=== PATIENT | female | born 1960 | race Caucasian/White ===

== ENCOUNTER 2016-09-19 17:51 | Inpatient (IN) | payer MEDICARE, OTHER ==
[2016-09-19] MEDS ORDERED: NALOXONE 0.4 MG/ML 1 ML VIAL IV STA (18:28)
[2016-09-19] MEDS ORDERED: ACTIVATED CHARCOAL-SORBITOL 50 GM/240 ML BOTTLE PO STA (18:29)
--- NOTE | 2016-09-19 18:36 | ED ---
General Adult HPI - General Chief complaint: Overdose Stated complaint: overdose Time Seen by Provider: 09/19/16 18:15 Source: patient, EMS, RN notes reviewed Mode of arrival: EMS Limitations: no limitations - History of Present Illness Initial comments: This is a 56-year-old female comes in the emergency room stating she overdosed on Flexeril and Ativan. She told the ER nurse asked to call bottle of Ativan she told me showing took one Ativan and a bunch of Flexeril but doesn't how much. The patient is so lethargic I cannot at this time trust her history other than the fact she did overdose. Patient states she couldn't handle light but would not give me any specifics as to why she tried to overdose. Patient states she has done this in the past. Patient denies any other drug use patient denies any alcohol use. Patient denies any chest pain difficulty breathing shortness of breath - Related Data Home Medications Medication Instructions Recorded Confirmed Gabapentin [Neurontin] 600 mg PO TID 07/09/15 09/19/16 Carvedilol 25 mg PO BID 10/10/15 09/19/16 Pravastatin Sodium 80 mg PO HS 10/10/15 09/19/16 rOPINIRole HCL [Requip] 2 mg PO TID 10/10/15 09/19/16 Multivitamins, Thera [Multivitamin] 1 tab PO DAILY 10/11/15 09/19/16 Levothyroxine Sodium [Synthroid] 137 mcg PO DAILY 11/05/15 09/19/16 Furosemide [Lasix] 20 mg PO BID 03/08/16 09/19/16 DULoxetine HCL [Cymbalta] 60 mg PO BID 05/05/16 09/19/16 Ferrous Sulfate [Iron (65 MG 325 mg PO DAILY 05/05/16 09/19/16 Elemental)] Lurasidone HCl [Latuda] 60 mg PO HS 05/05/16 09/19/16 rOPINIRole HCL [Requip] 3 mg PO HS 05/05/16 09/19/16 LORazepam [Ativan] 1 mg PO BID PRN 08/15/16 09/19/16 Nystatin 100,000 Unit/gm Powd 1 applic TOPICAL TID PRN 08/15/16 09/19/16 [Mycostatin Powder] QUEtiapine FUMARATE [SEROquel] 100 mg PO HS 08/15/16 09/19/16 Topiramate [Topamax] 50 mg PO DAILY 09/19/16 09/19/16 Allergies Allergy/AdvReac Type Severity Reaction Status Date / Time haloperidol [From Haldol] Allergy Swelling Verified 09/19/16 20:35 haloperidol lactate Allergy Swelling Verified 09/19/16 20:35 [From Haldol] iodine Allergy Swelling Verified 09/19/16 20:35 Penicillins Allergy Swelling Verified 09/19/16 20:35 prochlorperazine Allergy Rash/Hives Verified 09/19/16 20:35 [From Compazine] prochlorperazine edisylate Allergy Rash/Hives Verified 09/19/16 20:35 [From Compazine] prochlorperazine maleate Allergy Rash/Hives Verified 09/19/16 20:35 [From Compazine] Sulfa (Sulfonamide Allergy Rash/Hives Verified 09/19/16 20:35 Antibiotics) Tetanus Vaccines and Toxoid Allergy Rash/Hives Verified 09/19/16 20:35 [Tetanus Vaccines & Toxoid] trifluoperazine HCl Allergy Unknown Verified 09/19/16 20:35 [From Stelazine] Review of Systems ROS Statement: Those systems with pertinent positive or pertinent negative responses have been documented in the HPI. ROS Other: All systems not noted in ROS Statement are negative. Past Medical History Past Medical History: Asthma, Coronary Artery Disease (CAD), Diabetes Mellitus, Hyperlipidemia, Hypertension, Musculoskeletal Disorder, Osteoarthritis (OA), Thyroid Disorder Additional Past Medical History / Comment(s): Morbid obesity, unable to bear due to significant and profound lower extremity weakness and patient has been placed in medical [place] for that reason. CAT scan of the lumbar spine was done that showed some degenerative arthritic changes. Urinary incontinence; Yeast infection under abd. apron. History of Any Multi-Drug Resistant Organisms: None Reported Past Surgical History: Bariatric Surgery, Hernia Repair, Orthopedic Surgery Additional Past Surgical History / Comment(s): Total Right knee replacement, 3 hernia repairs. hip repair Past Anesthesia/Blood Transfusion Reactions: No Reported Reaction Past Psychological History: Anxiety, Bipolar, Depression Smoking Status: Never smoker Past Alcohol Use History: None Reported Past Drug Use History: None Reported - Past Family History Mother Family Medical History: Cancer Additional Family Medical History / Comment(s): lung cancer Father Additional Family Medical History / Comment(s): "my dad from a blood clot" patient is unsure where the blood clot was. Brother(s) Family Medical History: Diabetes Mellitus Sister(s) Additional Family Medical History / Comment(s): "her heart races too fast" General Exam - General Exam Comments Initial Comments: Patient's EKG shows a normal sinus rhythm at 70 bpm WA interval is 154 QRS is 94 QT interval 398 QTC is 444 per patient's EKG shows no ST segment elevation or depression or T-wave abdomen is noted. Limitations: no limitations Course Vital Signs 09/19/16 09/19/16 09/19/16 17:58 18:00 19:58 Temperature 97.3 F L Pulse Rate 78 80 84 Respiratory 20 16 Rate Blood Pressure 161/70 144/85 O2 Sat by Pulse 95 95 95 Oximetry 09/19/16 21:22 Temperature Pulse Rate 69 Respiratory 16 Rate Blood Pressure 136/79 O2 Sat by Pulse 96 Oximetry Medical Decision Making - Medical Decision Making Patient is arousable with slight physical stimulation. - Lab Data Result diagrams: 09/19/16 18:35 09/19/16 19:12 Lab Results 09/19/16 09/19/16 09/19/16 Range/Units 18:35 19:12 20:55 WBC 6.0 (3.8-10.6) k/uL RBC 4.11 (3.80-5.40) m/uL Hgb 11.7 (11.4-16.0) gm/dL Hct 36.3 (34.0-46.0) % MCV 88.1 (80.0-100.0) fL MCH 28.5 (25.0-35.0) pg MCHC 32.3 (31.0-37.0) g/dL RDW 14.4 (11.5-15.5) % Plt Count 223 (150-450) k/uL Neutrophils % 65 % Lymphocytes % 22 % Monocytes % 7 % Eosinophils % 2 % Basophils % 0 % Neutrophils # 3.9 (1.3-7.7) k/uL Lymphocytes # 1.3 (1.0-4.8) k/uL Monocytes # 0.4 (0-1.0) k/uL Eosinophils # 0.1 (0-0.7) k/uL Basophils # 0.0 (0-0.2) k/uL Sodium 139 (137-145) mmol/L Potassium 4.3 (3.5-5.1) mmol/L Chloride 105 (98-107) mmol/L Carbon Dioxide 20 L (22-30) mmol/L Anion Gap 14 mmol/L BUN 21 H (7-17) mg/dL Creatinine 0.76 (0.52-1.04) mg/dL Est GFR (MDRD) Af Amer >60 (>60 ml/min/1.73 sqM) Est GFR (MDRD) Non-Af >60 (>60 ml/min/1.73 sqM) Glucose 87 (74-99) mg/dL Calcium 9.0 (8.4-10.2) mg/dL Total Bilirubin 0.6 (0.2-1.3) mg/dL AST 32 (14-36) U/L ALT 34 (9-52) U/L Alkaline Phosphatase 97 (38-126) U/L Total Protein 7.1 (6.3-8.2) g/dL Albumin 4.2 (3.5-5.0) g/dL Urine HCG, Qual (Not Detectd) Salicylates <1.0 mg/dL Urine Opiates Screen Not Detected (NotDetected) Ur Oxycodone Screen Not Detected (NotDetected) Urine Methadone Screen Not Detected (NotDetected) Ur Propoxyphene Screen Not Detected (NotDetected) Acetaminophen <10.0 ug/mL Ur Barbiturates Screen Not Detected (NotDetected) U Tricyclic Antidepress Not Detected (NotDetected) Ur Phencyclidine Scrn Not Detected (NotDetected) Ur Amphetamines Screen Not Detected (NotDetected) U Methamphetamines Scrn Not Detected (NotDetected) U Benzodiazepines Scrn Detected H (NotDetected) Urine Cocaine Screen Not Detected (NotDetected) U Marijuana (THC) Screen Not Detected (NotDetected) Serum Alcohol <10 mg/dL 09/19/16 Range/Units 20:55 WBC (3.8-10.6) k/uL RBC (3.80-5.40) m/uL Hgb (11.4-16.0) gm/dL Hct (34.0-46.0) % MCV (80.0-100.0) fL MCH (25.0-35.0) pg MCHC (31.0-37.0) g/dL RDW (11.5-15.5) % Plt Count (150-450) k/uL Neutrophils % % Lymphocytes % % Monocytes % % Eosinophils % % Basophils % % Neutrophils # (1.3-7.7) k/uL Lymphocytes # (1.0-4.8) k/uL Monocytes # (0-1.0) k/uL Eosinophils # (0-0.7) k/uL Basophils # (0-0.2) k/uL Sodium (137-145) mmol/L Potassium (3.5-5.1) mmol/L Chloride (98-107) mmol/L Carbon Dioxide (22-30) mmol/L Anion Gap mmol/L BUN (7-17) mg/dL Creatinine (0.52-1.04) mg/dL Est GFR (MDRD) Af Amer (>60 ml/min/1.73 sqM) Est GFR (MDRD) Non-Af (>60 ml/min/1.73 sqM) Glucose (74-99) mg/dL Calcium (8.4-10.2) mg/dL Total Bilirubin (0.2-1.3) mg/dL AST (14-36) U/L ALT (9-52) U/L Alkaline Phosphatase (38-126) U/L Total Protein (6.3-8.2) g/dL Albumin (3.5-5.0) g/dL Urine HCG, Qual Not Detected (Not Detectd) Salicylates mg/dL Urine Opiates Screen (NotDetected) Ur Oxycodone Screen (NotDetected) Urine Methadone Screen (NotDetected) Ur Propoxyphene Screen (NotDetected) Acetaminophen ug/mL Ur Barbiturates Screen (NotDetected) U Tricyclic Antidepress (NotDetected) Ur Phencyclidine Scrn (NotDetected) Ur Amphetamines Screen (NotDetected) U Methamphetamines Scrn (NotDetected) U Benzodiazepines Scrn (NotDetected) Urine Cocaine Screen (NotDetected) U Marijuana (THC) Screen (NotDetected) Serum Alcohol mg/dL Disposition Clinical Impression: Benzodiazepine overdose Disposition: ADMITTED IP TO THIS HOSP Referrals: Dm Bhakta DO [Primary Care Provider] - 1-2 days Time of Disposition: 21:41
[2016-09-19 18:54] LABS: Basophils % (A) 0 %; CH 28.1; Eosinophils # (A) 0.1 k/uL (0-0.7); Eosinophils % (A) 2 %; HCT 36.3 % (34.0-46.0); HDW 2.74; HGB 11.7 gm/dL (11.4-16.0); Luc % (Auto) 3; Lymphocytes # (A) 1.3 k/uL (1.0-4.8); Lymphocytes % (A) 22 %; MCH 28.5 pg (25.0-35.0); MCHC 32.3 g/dL (31.0-37.0); MCV 88.1 fL (80.0-100.0); Mean Platelet Volume 7.5; Monocytes # (A) 0.4 k/uL (0-1.0); Monocytes % (A) 7 %; Neutrophils # (A) 3.9 k/uL (1.3-7.7); Neutrophils % (A) 65 %; RBC 4.11 m/uL (3.80-5.40); RDW 14.4 % (11.5-15.5)
[2016-09-19 19:57] LABS: ALT 34 U/L (9-52); AST 32 U/L (14-36); Acetaminophen <10.0 ug/mL; Alcohol <10 mg/dL; Alkaline Phosphatase 97 U/L (38-126); Anion Gap 14 mmol/L; Blood Urea Nitrogen 21 mg/dL (7-17); Carbon Dioxide 20 mmol/L (22-30); Chloride 105 mmol/L (98-107); Glucose 87 mg/dL (74-99); Non-African American GFR(MDRD) >60 (>60 ml/min/1.73 sqM); Potassium 4.3 mmol/L (3.5-5.1); Salicylate <1.0 mg/dL; Sodium 139 mmol/L (137-145); Total Bilirubin 0.6 mg/dL (0.2-1.3); Total Protein 7.1 g/dL (6.3-8.2)
[2016-09-19] MEDS ORDERED: SODIUM CHLORIDE 0.9% 1,000 ML IV ONE (21:43)
[2016-09-20] MEDS ORDERED: ZIPRASIDONE 20 MG VIAL IM PRN (01:50)
[2016-09-20 07:06] LABS: Glucose,Whole Blood 63 mg/dL (75-99)
[2016-09-20 07:27] LABS: Glucose,Whole Blood 125 mg/dL (75-99)
[2016-09-20] MEDS ORDERED: NYSTATIN 100,000 UNIT/GM POWD 15 GM TOPICAL PRN (11:21)
[2016-09-20] MEDS ORDERED: TOPIRAMATE 25 MG TAB PO SCH (11:30)
[2016-09-20] MEDS ORDERED: LEVOTHYROXINE 137 MCG TAB PO SCH (11:30)
[2016-09-20 12:19] LABS: Glucose,Whole Blood 50 mg/dL (75-99)
[2016-09-20] MEDS: GABAPENTIN 300 MG CAP PO SCH ×3 (12:24→21:01)
[2016-09-20] MEDS: CARVEDILOL 12.5 MG TAB PO SCH ×2 (12:24→16:56)
[2016-09-20] MEDS: FUROSEMIDE 20 MG TAB PO SCH ×2 (12:25→16:54)
[2016-09-20] MEDS: DULoxetine HCL 60 MG CAPSULE.DR PO SCH ×2 (12:25→21:01)
[2016-09-20 12:42] LABS: Glucose,Whole Blood 72 mg/dL (75-99)
[2016-09-20 12:59] LABS: Glucose,Whole Blood 123 mg/dL (75-99)
[2016-09-20 16:52] LABS: Glucose,Whole Blood 63 mg/dL (75-99)
[2016-09-20 17:15] LABS: Glucose,Whole Blood 107 mg/dL (75-99)
[2016-09-20] MEDS ORDERED: IBUPROFEN 200 MG TAB PO STA (17:16)
[2016-09-20] MEDS ORDERED: QUEtiapine 100 MG TAB PO SCH (21:00)
[2016-09-20] MEDS ORDERED: LURASIDONE 40 MG TAB PO SCH (21:00)
[2016-09-20] MEDS ORDERED: PRAVASTATIN SODIUM 80 MG TAB PO SCH (21:00)
[2016-09-20 21:31] LABS: Glucose,Whole Blood 115 mg/dL (75-99)
--- NOTE | 2016-09-20 22:09 | CONS ---
DATE OF CONSULTATION: REASON FOR CONSULTATION: Status post suicidal attempt with overdose on Ativan. IDENTIFYING DATA AND HISTORY OF PRESENT ILLNESS: Patient is a 56-year-old white female who presented to the emergency room stating that she overdosed on Flexeril and Ativan. Patient stated that she has been feeling overwhelmed and not able to handle ongoing stressors. She said, "If you discharge me home now I will kill myself and I will finish the job." Patient has extensive history of mental illness with different diagnoses, including anxiety, panic attack, bipolar disorder, and she has been on Social Security Disability for mental illness. Patient moved from [facility] to [facility], in 2014. Currently she is established with [facility] and she even started attending didactic group for borderline personality disorder. Patient lives alone and she has a cat. Currently she has a court-appointed guardian. Patient stated that for the last couple of days she has been having stool incontinence and accidents and she is not able to clean up after herself; however, at the same time she told me that there is some friend, whose name is Luciana, who has been coming at least 2 or 3 times a week to help her clean the apartment. But the patient said, "I told my guardian to tell her to stop coming because she is controlling my life." PAST PSYCHIATRIC HISTORY: Patient stated that she has extensive history of multiple inpatient admissions at [facility], 2 times at [facility]; her last admission at [facility] was in March of 2016. She has a history of multiple suicidal gestures in addition to history of self-mutilation behavior. Diagnosis is major depression, recurrent, versus bipolar disorder, depressed, versus post-traumatic stress disorder and borderline personality disorder. HER CURRENT MEDICATION: 1. Neurontin 600 three times per day. 2. Requip 2 mg 3 times per day. 3. Carvedilol 25 mg twice a day. 4. Synthroid 137 mcg daily. 5. Lasix 20 mg b.i.d. 6. Cymbalta 60 mg twice a day. 7. Ferrous sulfate. 8. Latuda 60 mg at bedtime. 9. Requip 3 mg at bedtime. 10. Ativan 1 mg twice a day p.r.n. 11. Seroquel 100 mg at bedtime. 12. Topamax 50 mg daily. ALLERGIES: 1. HALDOL. 2. PENICILLIN. 3. STELAZINE. 4. SULFA. 5. IODINE. 6. TETANUS VACCINE. 7. COMPAZINE. PAST MEDICAL HISTORY: 1. History of coronary artery disease. 2. Asthma. 3. Diabetes. 4. Hyperlipidemia. 5. Hypertension. 6. Hypothyroidism. 7. Morbid obesity despite bariatric surgery. 8. History of degenerative arthritis. SUBSTANCE ABUSE HISTORY: Patient denied any current substance abuse history. For physical exam and lab data, please refer to her medical report. MENTAL STATUS EXAMINATION: Patient is a morbidly obese female who was lying in bed dressed in hospital gown. Poor grooming. She was cooperative but very vague about current suicidal attempt, especially when I discussed with her that her urine was not positive for Ativan. There is psychomotor agitation. Her thought processes are tangential with loose associations. She stated that she is feeling hopeless, helpless and does not feel safe outside the hospital. She did say that if she goes home she will kill herself. Cognitive function is intact. Insight and judgment are impaired FORMULATION: This patient is a morbidly obese female with history of severe trauma during childhood. Also she has a history of episodes of depression and dorothy with past history of shoplifting. The patient does not feel safe outside of the hospital and does require inpatient stay in mental health unit for her safety. DIAGNOSES: 1. Bipolar disorder, depressed, with suicidal ideation. 2. History of post-traumatic stress disorder. 3. Coronary artery disease. 4. Asthma. 5. Hypertension. 6. Hypothyroidism. 7. Morbid obesity. 8. Diabetes. PLAN: I do recommend transferring the patient to inpatient psychiatric hospitalization when she is medically cleared. Our unit here at [facility] is not able to accommodate the needs of this patient due to her weight. However, it seems that she is not able to contract for safety. That is why she does require inpatient hospitalization in a psychiatric facility. PROGNOSIS: Guarded.
[2016-09-20 23:39] VITALS: BP 100/58; PULSE 78; RESP 16; TEMP 97.4
[2016-09-21 01:52] LABS: Glucose,Whole Blood 93 mg/dL (75-99)
--- NOTE | 2016-09-21 06:40 | HP ---
DATE OF ADMISSION: 09/19/2016 PRESENTING COMPLAINT: Overdose on Flexeril and Ativan. HISTORY OF PRESENTING COMPLAINT: This is a 56-year-old patient with a rather extensive medical history. Patient's chronic stable medical conditions include hypothyroid, asthma, coronary artery disease, diabetes, peripheral neuropathy, hyperlipidemia, hypertension, morbid obesity, restless leg syndrome. Patient does use a walker to get about. Patient's legal guardian is Cj Blankenship. Patient took an overdose of Flexeril and Ativan. Hence, she was admitted, put on telemetry. When I saw this patient earlier today, the patient kept repeating I want to kill myself. I don't want to live. The patient has a diagnosis of major depression. Psychiatry was consulted. Patient actually tolerated her meals. Has a sitter. REVIEW OF SYSTEMS: CONSTITUTIONAL: None. HEENT: None. RESPIRATORY: Occasional short of breath as base. CARDIOVASCULAR: None. GASTROINTESTINAL: None. GENITOURINARY: None. MUSCULOSKELETAL: Pain in the joints. DERMATOLOGICAL: None. HEMATOLOGICAL: None. LYMPHATIC: None. PSYCHIATRY: Depressed, suicidal. NEUROLOGICAL: Numbness and tingling in the feet. Past medical history of hypothyroid, asthma, coronary artery disease, diabetes, peripheral neuropathy, hyperlipidemia, hypertension, osteoarthritis of lumbar spine, obesity, bipolar disorder, bilateral lower extremity lymphedema, restless leg syndrome. PAST SURGICAL HISTORY: Bariatric surgery, hernia repair, right shoulder repair, 3 hernia repairs. SOCIAL HISTORY: Lives by herself. No smoking. No alcohol. The patient has a legal guardian, Cj Blankenship. Family history of lung cancer. Allergies to HALDOL, IODINE, PENICILLIN, COMPAZINE, ( ). HOME MEDICATIONS: 1. Requip 3 mg q.h.s. 2. Requip 2 mg p.o. t.i.d. 3. Topamax 50 mg p.o. daily. 4. Seroquel 100 mg p.o. q.h.s. 5. Pravastatin 80 mg q.h.s. 6. Nystatin one application topical t.i.d. 7. Multivitamin 1 tablet p.o. daily. 8. Latuda 60 mg q.h.s. 9. Synthroid 137 mcg p.o. daily. 10. Ativan 1 mg p.o. b.i.d. p.r.n. 11. Neurontin 600 mg p.o. t.i.d. 12. Lasix 20 mg p.o. b.i.d. 13. Iron 325 p.o. daily. 14. Cymbalta 60 mg b.i.d. 15. Coreg 25 mg b.i.d. On examination, temperature 97.3, pulse 78, respirations 20, blood pressure 161/70, pulse ox 95% on presentation. GENERAL APPEARANCE: Morbidly obese, BMI of 46.1, lying in bed, not in distress. EYES: Pupils equal. Conjunctivae normal. HENT: Oral cavity normal. NECK: JVD not raised. Mass not palpable. RESPIRATORY: Effort normal. Lungs are clear. CARDIOVASCULAR: First and second sounds normal. No edema. ABDOMEN: Soft, nontender. Liver and spleen not palpable. LYMPHATIC: No lymph node palpable of the neck or axillae. PSYCHIATRY: Depressed, suicidal. INVESTIGATIONS: White count 6, hemoglobin 11.7. Potassium 4.3, BUN 21, creatinine 0.76. Accu-Cheks show 63, 125. Urine screen for toxicology was positive for benzodiazepine and. Urine HCG is negative. ASSESSMENT: 1. Acute overdose of Flexeril and Ativan with some metabolic encephalopathy on presentation from medication side effect. 2. Major depressive disorder, recurrent, severe, suicidal ideation. 3. Recent femoral neck fracture with ORIF. 4. Hypothyroidism. 5. Intermittent asthma, stable. 6. Coronary artery disease. 7. Hyperlipidemia. 8. Hypertension. 9. Primary osteoarthritis, multiple joints bilaterally. 10. Morbid obesity, body mass index greater than ( ). 11. Bipolar disorder, suicidal, uncontrolled. 12. Bilateral lymphedema of the lower extremity chronic. 13. Chronic restless leg syndrome. 14. Chronic ( ). PLAN: Home medications will be resumed. ( ) short half life of Ativan and Flexeril. Hence, home medications resumed. Psychiatry was consulted. Sitter at the bedside. Patient is keen to eat and ( ) given food. Overall prognosis is guarded.
--- NOTE | 2016-09-28 18:15 | DS ---
DATE OF ADMISSION: 09/19/2016 DATE OF DISCHARGE: 09/21/2016 FINAL DIAGNOSES: 1. Major depressive disorder, recurrent, severe with suicidal ideation, present on admission. 2. Acute overdose of Flexeril and Ativan causing metabolic encephalopathy, present on admission. 3. Recent femoral neck fracture with ORIF. 4. Hypothyroidism, chronic. 5. Intermittent asthma, stable, chronic. 6. Coronary artery disease. 7. Hyperlipidemia. 8. Essential hypertension. 9. Primary osteoarthritis in multiple joints, bilaterally. 10. Morbid obesity, body mass index greater than 40. 11. Bilateral lymphedema of lower extremities, chronic. 12. Chronic restless leg syndrome. CONSULTATIONS: Dr. Witt from Psychiatry. HOSPITAL COURSE: This patient took an overdose of Ativan and Flexeril on the floor and kept repeating that she did not want to live, wanted to kill herself and . Seen by Dr. Witt from psychiatry, who recommended the patient to be transferred to an outside psychiatry facility as she is unable to care for herself. Patient's legal guardian is Cj Hermosillo. Patient, otherwise, was medically stable. For more details, see my H&P from earlier in the day. CURRENT MEDICATIONS: 1. Neurontin 600 mg p.o. t.i.d. 2. Coreg 25 mg p.o. b.i.d. 3. Pravastatin 80 mg q.h.s. 4. Requip 2 mg p.o. t.i.d. 5. Multivitamin 1 tablet p.o. daily. 6. Synthroid 137 mcg p.o. daily. 7. Lasix 20 mg p.o. b.i.d. 8. Cymbalta 60 mg p.o. b.i.d. 9. Elemental iron 325 p.o. daily. 10. Lamictal 50 mg p.o. q.h.s. 11. Requip 3 mg p.o. q.h.s. 12. Ativan 1 mg p.o. b.i.d. p.r.n. 13. Nystatin topical daily p.r.n. 14. Seroquel 100 mg q.h.s. 15. Topamax 50 mg p.o. daily. DISPOSITION: Transferred to outside facility. On examination: CARDIOVASCULAR: First and second sounds. LUNGS: Breath sounds are diminished. PSYCH: Depressed, suicidal.
== END 2016-09-21 05:40 | DRG 917 ==
LOC: EC 17:51 → 4MS4W 21:41
PROVIDERS: ADMIT Hospitalist; ATTEND Hospitalist
DX: T48.1X2A Poisoning by skeletal muscle relaxants [neuromuscular blocking agents], intentional self-harm, initial encounter (principal); G92 Toxic encephalopathy; F33.2 Major depressive disorder, recurrent severe without psychotic features; R45.851 Suicidal ideations; E11.42 Type 2 diabetes mellitus with diabetic polyneuropathy; E03.9 Hypothyroidism, unspecified; R15.9 Full incontinence of feces; I10 Essential (primary) hypertension; E78.5 Hyperlipidemia, unspecified; G25.81 Restless legs syndrome; I25.10 Atherosclerotic heart disease of native coronary artery without angina pectoris; F41.9 Anxiety disorder, unspecified; R32 Unspecified urinary incontinence; M47.816 Spondylosis without myelopathy or radiculopathy, lumbar region; T42.4X2A Poisoning by benzodiazepines, intentional self-harm, initial encounter; F60.3 Borderline personality disorder; F43.10 Post-traumatic stress disorder, unspecified; F41.0 Panic disorder [episodic paroxysmal anxiety]; J45.20 Mild intermittent asthma, uncomplicated; I89.0 Lymphedema, not elsewhere classified; R53.1 Weakness; M19.91 Primary osteoarthritis, unspecified site; Z63.79 Other stressful life events affecting family and household; Z62.9 Problem related to upbringing, unspecified; Z80.1 Family history of malignant neoplasm of trachea, bronchus and lung; Z91.5 Personal history of self-harm; Z83.3 Family history of diabetes mellitus; Z96.651 Presence of right artificial knee joint; Z98.84 Bariatric surgery status; Z83.2 Family history of diseases of the blood and blood-forming organs and certain disorders involving the immune mechanism; Z98.890 Other specified postprocedural states; Z87.81 Personal history of (healed) traumatic fracture; Z79.899 Other long term (current) drug therapy; Z88.0 Allergy status to penicillin; Z88.2 Allergy status to sulfonamides; Z88.7 Allergy status to serum and vaccine; Z88.8 Allergy status to other drugs, medicaments and biological substances; Z86.19 Personal history of other infectious and parasitic diseases; Z91.041 Radiographic dye allergy status; Y92.9 Unspecified place or not applicable
CPT/HCPCS: 36415; 80053; 80306; 80320; 81025; 83520; 85025; 93005; 96374; 99285

== ENCOUNTER 2016-10-12 16:15 | Emergency (ER) | payer MEDICARE, OTHER ==
--- NOTE | 2016-10-12 16:41 | ED ---
Altered Mental Status HPI - General Source: patient, family, RN notes reviewed, old records reviewed Mode of arrival: ambulatory Limitations: altered mental status - History of Present Illness MD Complaint: altered mental status, confusion <Chris Brownlee - Last Filed: 10/12/16 19:24> <Galdino Cortés - Last Filed: 10/13/16 00:30> - General Chief Complaint: Altered Mental Status Stated Complaint: Altered Mental Status Time Seen by Provider: 10/12/16 16:15 - History of Present Illness Initial Comments: Is a 56-year-old female with a history of multiple medical problems and psychiatric problems who is brought in by [facility] worker's because his confusion and altered mental status. She's also been calling [facility] up was multiple times today. There is concern of a possible urinary tract infection. Patient's been seen in her parents are alive and they aren't she's been 19 apparently somewhat paranoid. She states she's not been knee and drinking much because she wants to lose weight. She apparently told [facility] worker's that she wanted to take some pills. No reports of fevers chills nausea vomiting sweats. Patient does repeat that she is scared she is scared. (Chris Brownlee) - Related Data Home Medications Medication Instructions Recorded Confirmed Gabapentin [Neurontin] 600 mg PO TID 07/09/15 10/12/16 Carvedilol 25 mg PO BID 10/10/15 10/12/16 Pravastatin Sodium 80 mg PO HS 10/10/15 10/12/16 Levothyroxine Sodium [Synthroid] 137 mcg PO DAILY 11/05/15 10/12/16 Furosemide [Lasix] 40 mg PO QAM 03/08/16 10/12/16 DULoxetine HCL [Cymbalta] 60 mg PO QAM 05/05/16 10/12/16 Ferrous Sulfate [Iron (65 MG 325 mg PO BID 05/05/16 10/12/16 Elemental)] Lurasidone HCl [Latuda] 60 mg PO AC-SUPPER 05/05/16 10/12/16 rOPINIRole HCL [Requip] 3 mg PO HS 05/05/16 10/12/16 LORazepam [Ativan] 1 mg PO TID PRN 08/15/16 10/12/16 Topiramate [Topamax] 50 mg PO QAM 09/19/16 10/12/16 Fluticasone Propionate [Flonase 1 spray EA NOSTRIL BID 10/12/16 10/12/16 Allergy Relief] Ibuprofen [Motrin] 600 mg PO TID PRN 10/12/16 10/12/16 Sennosides/Docusate Sodium 2 tab PO HS 10/12/16 10/12/16 [Milvia-Colace Tablet] traZODone HCL 150 mg PO HS 10/12/16 10/12/16 Allergies Allergy/AdvReac Type Severity Reaction Status Date / Time haloperidol [From Haldol] Allergy Swelling Verified 10/12/16 16:22 haloperidol lactate Allergy Swelling Verified 10/12/16 16:22 [From Haldol] iodine Allergy Swelling Verified 10/12/16 16:22 Penicillins Allergy Swelling Verified 10/12/16 16:22 prochlorperazine Allergy Rash/Hives Verified 10/12/16 16:22 [From Compazine] prochlorperazine edisylate Allergy Rash/Hives Verified 10/12/16 16:22 [From Compazine] prochlorperazine maleate Allergy Rash/Hives Verified 10/12/16 16:22 [From Compazine] Sulfa (Sulfonamide Allergy Rash/Hives Verified 10/12/16 16:22 Antibiotics) Tetanus Vaccines and Toxoid Allergy Rash/Hives Verified 10/12/16 16:22 [Tetanus Vaccines & Toxoid] trifluoperazine HCl Allergy Unknown Verified 10/12/16 16:22 [From Stelazine] Review of Systems ROS Other: All systems not noted in ROS Statement are negative. <Chris Brownlee - Last Filed: 10/12/16 19:24> ROS Other: All systems not noted in ROS Statement are negative. <Galdino Cortés - Last Filed: 10/13/16 00:30> ROS Statement: Those systems with pertinent positive or pertinent negative responses have been documented in the HPI. Past Medical History Past Medical History: Asthma, Coronary Artery Disease (CAD), Diabetes Mellitus, Hyperlipidemia, Hypertension, Musculoskeletal Disorder, Osteoarthritis (OA), Thyroid Disorder Additional Past Medical History / Comment(s): Morbid obesity, unable to bear due to significant and profound lower extremity weakness and patient has been placed in medical [place] for that reason. CAT scan of the lumbar spine was done that showed some degenerative arthritic changes. Urinary incontinence; Yeast infection under abd. apron. History of Any Multi-Drug Resistant Organisms: None Reported Past Surgical History: Bariatric Surgery, Hernia Repair, Orthopedic Surgery Additional Past Surgical History / Comment(s): Total Right knee replacement, 3 hernia repairs. hip repair Past Anesthesia/Blood Transfusion Reactions: No Reported Reaction Past Psychological History: Anxiety, Bipolar, Depression Smoking Status: Never smoker Past Alcohol Use History: None Reported Past Drug Use History: None Reported - Past Family History Mother Family Medical History: Cancer Additional Family Medical History / Comment(s): lung cancer Father Additional Family Medical History / Comment(s): "my dad from a blood clot" patient is unsure where the blood clot was. Brother(s) Family Medical History: Diabetes Mellitus Sister(s) Additional Family Medical History / Comment(s): "her heart races too fast" <Chris Brownlee - Last Filed: 10/12/16 19:24> General Exam Limitations: altered mental status General appearance: alert, in no apparent distress Head exam: Present: atraumatic, normocephalic, normal inspection Eye exam: Present: normal appearance, PERRL, EOMI. Absent: scleral icterus, conjunctival injection, periorbital swelling ENT exam: Present: normal exam, mucous membranes moist Neck exam: Present: normal inspection. Absent: tenderness, meningismus, lymphadenopathy Respiratory exam: Present: normal lung sounds bilaterally. Absent: respiratory distress, wheezes, rales, rhonchi, stridor Cardiovascular Exam: Present: regular rate, normal rhythm, normal heart sounds. Absent: systolic murmur, diastolic murmur, rubs, gallop, clicks GI/Abdominal exam: Present: soft, normal bowel sounds. Absent: distended, tenderness, guarding, rebound, rigid Extremities exam: Present: normal inspection, full ROM, normal capillary refill. Absent: tenderness, pedal edema, joint swelling, calf tenderness Back exam: Present: normal inspection Neurological exam: Present: alert, altered, CN II-XII intact Psychiatric exam: Present: agitated, anxious, manic Skin exam: Present: warm, dry, intact, normal color. Absent: rash <Chris Brownlee - Last Filed: 10/12/16 19:24> <Galdino Cortés - Last Filed: 10/13/16 00:30> - General Exam Comments Initial Comments: This is a well-developed well-nourished awake alert anxious appearing female ( Chris Brownlee) Course <Chris Brownlee - Last Filed: 10/12/16 19:24> <Galdino Cortés - Last Filed: 10/13/16 00:30> Vital Signs 10/12/16 10/12/16 10/12/16 16:19 18:17 19:37 Temperature 98.8 F 97.5 F L 96.8 F L Pulse Rate 76 68 67 Respiratory 20 20 20 Rate Blood Pressure 175/80 136/67 158/85 O2 Sat by Pulse 98 97 100 Oximetry 10/12/16 10/12/16 10/12/16 20:58 22:36 23:15 Temperature 97.7 F 97.1 F L Pulse Rate 95 73 65 Respiratory 20 20 Rate Blood Pressure 135/69 136/78 136/78 O2 Sat by Pulse 97 99 98 Oximetry - Reevaluation(s) Reevaluation #1: 10/12/16 19:24 The patient was endorsed to Dr. Cortés who will make the final disposition ( Chris Brownlee) Medical Decision Making - Lab Data Result diagrams: 10/12/16 17:36 10/12/16 17:36 - EKG Data -: EKG Interpreted by Me (Rate was 65 TX interval 142 QRS duration 84 QT/QTC of 396/411 artifact is p) <Chris Brownlee - Last Filed: 10/12/16 19:24> - Lab Data Result diagrams: 10/12/16 17:36 10/12/16 17:36 - Radiology Data Radiology results: report reviewed (CT brain negative for acute disease), image reviewed <Galdino Cortés - Last Filed: 10/13/16 00:30> - Medical Decision Making 56 female was seen and evaluated with psychiatry and makes qualifications for inpatient psychiatric evaluation treatment, patient will be transferred for inpatient psychiatric evaluation and treatment (Galdino Cortés) - Lab Data Lab Results 10/12/16 10/12/16 10/12/16 Range/Units 17:05 17:10 17:36 WBC 5.2 (3.8-10.6) k/uL RBC 4.37 (3.80-5.40) m/uL Hgb 12.3 (11.4-16.0) gm/dL Hct 38.6 (34.0-46.0) % MCV 88.4 (80.0-100.0) fL MCH 28.1 (25.0-35.0) pg MCHC 31.7 (31.0-37.0) g/dL RDW 13.9 (11.5-15.5) % Plt Count 251 (150-450) k/uL Neutrophils % 61 % Lymphocytes % 26 % Monocytes % 8 % Eosinophils % 2 % Basophils % 1 % Neutrophils # 3.2 (1.3-7.7) k/uL Lymphocytes # 1.4 (1.0-4.8) k/uL Monocytes # 0.4 (0-1.0) k/uL Eosinophils # 0.1 (0-0.7) k/uL Basophils # 0.0 (0-0.2) k/uL Sodium (137-145) mmol/L Potassium (3.5-5.1) mmol/L Chloride (98-107) mmol/L Carbon Dioxide (22-30) mmol/L Anion Gap mmol/L BUN (7-17) mg/dL Creatinine (0.52-1.04) mg/dL Est GFR (MDRD) Af Amer (>60 ml/min/1.73 sqM) Est GFR (MDRD) Non-Af (>60 ml/min/1.73 sqM) Glucose (74-99) mg/dL POC Glucose (mg/dL) 89 (75-99) mg/dL POC Glu Well [place] Head ID Martine Cochran Calcium (8.4-10.2) mg/dL Magnesium (1.6-2.3) mg/dL Total Bilirubin (0.2-1.3) mg/dL AST (14-36) U/L ALT (9-52) U/L Alkaline Phosphatase (38-126) U/L Ammonia (<30) umol/L Total Creatine Kinase (30-135) U/L CK-MB (CK-2) (0.0-2.4) ng/mL CK-MB (CK-2) Rel Index Troponin I (0.000-0.034) ng/mL Total Protein (6.3-8.2) g/dL Albumin (3.5-5.0) g/dL TSH (0.465-4.680) mIU/L Urine Color Yellow Urine Appearance Clear (Clear) Urine pH 6.0 (5.0-8.0) Ur Specific [place] 1.009 (1.001-1.035) Urine Protein Negative (Negative) Urine Glucose (UA) Negative (Negative) Urine Ketones Negative (Negative) Urine Blood Negative (Negative) Urine Nitrate Negative (Negative) Urine Bilirubin Negative (Negative) Urine Urobilinogen <2.0 (<2.0) mg/dL Ur Leukocyte Esterase Negative (Negative) Salicylates mg/dL Urine Opiates Screen Not Detected (NotDetected) Ur Oxycodone Screen Not Detected (NotDetected) Urine Methadone Screen Not Detected (NotDetected) Ur Propoxyphene Screen Not Detected (NotDetected) Acetaminophen ug/mL Ur Barbiturates Screen Not Detected (NotDetected) U Tricyclic Antidepress Not Detected (NotDetected) Ur Phencyclidine Scrn Not Detected (NotDetected) Ur Amphetamines Screen Not Detected (NotDetected) U Methamphetamines Scrn Not Detected (NotDetected) U Benzodiazepines Scrn Detected H (NotDetected) Urine Cocaine Screen Not Detected (NotDetected) U Marijuana (THC) Screen Not Detected (NotDetected) Serum Alcohol mg/dL 10/12/16 10/12/16 10/12/16 Range/Units 17:36 17:36 17:36 WBC (3.8-10.6) k/uL RBC (3.80-5.40) m/uL Hgb (11.4-16.0) gm/dL Hct (34.0-46.0) % MCV (80.0-100.0) fL MCH (25.0-35.0) pg MCHC (31.0-37.0) g/dL RDW (11.5-15.5) % Plt Count (150-450) k/uL Neutrophils % % Lymphocytes % % Monocytes % % Eosinophils % % Basophils % % Neutrophils # (1.3-7.7) k/uL Lymphocytes # (1.0-4.8) k/uL Monocytes # (0-1.0) k/uL Eosinophils # (0-0.7) k/uL Basophils # (0-0.2) k/uL Sodium 141 (137-145) mmol/L Potassium 3.9 (3.5-5.1) mmol/L Chloride 105 (98-107) mmol/L Carbon Dioxide 26 (22-30) mmol/L Anion Gap 10 mmol/L BUN 27 H (7-17) mg/dL Creatinine 0.81 (0.52-1.04) mg/dL Est GFR (MDRD) Af Amer >60 (>60 ml/min/1.73 sqM) Est GFR (MDRD) Non-Af >60 (>60 ml/min/1.73 sqM) Glucose 102 H (74-99) mg/dL POC Glucose (mg/dL) (75-99) mg/dL POC Glu [place] ID Calcium 9.5 (8.4-10.2) mg/dL Magnesium 1.9 (1.6-2.3) mg/dL Total Bilirubin 0.4 (0.2-1.3) mg/dL AST 24 (14-36) U/L ALT 28 (9-52) U/L Alkaline Phosphatase 90 (38-126) U/L Ammonia 13 (<30) umol/L Total Creatine Kinase 35 (30-135) U/L CK-MB (CK-2) 0.3 (0.0-2.4) ng/mL CK-MB (CK-2) Rel Index 0.9 Troponin I <0.012 (0.000-0.034) ng/mL Total Protein 6.6 (6.3-8.2) g/dL Albumin 3.8 (3.5-5.0) g/dL TSH 1.700 (0.465-4.680) mIU/L Urine Color Urine Appearance (Clear) Urine pH (5.0-8.0) Ur Specific [place] (1.001-1.035) Urine Protein (Negative) Urine Glucose (UA) (Negative) Urine Ketones (Negative) Urine Blood (Negative) Urine Nitrate (Negative) Urine Bilirubin (Negative) Urine Urobilinogen (<2.0) mg/dL Ur Leukocyte Esterase (Negative) Salicylates <1.0 mg/dL Urine Opiates Screen (NotDetected) Ur Oxycodone Screen (NotDetected) Urine Methadone Screen (NotDetected) Ur Propoxyphene Screen (NotDetected) Acetaminophen <10.0 ug/mL Ur Barbiturates Screen (NotDetected) U Tricyclic Antidepress (NotDetected) Ur Phencyclidine Scrn (NotDetected) Ur Amphetamines Screen (NotDetected) U Methamphetamines Scrn (NotDetected) U Benzodiazepines Scrn (NotDetected) Urine Cocaine Screen (NotDetected) U Marijuana (THC) Screen (NotDetected) Serum Alcohol <10 mg/dL Disposition <Chris Brownlee - Last Filed: 10/12/16 19:24> <Galdino Cortés - Last Filed: 10/13/16 00:30> Clinical Impression: Depression, Suicidal ideation Disposition: TRANSFER TO PSYCH HOSP/UNIT Condition: Fair Referrals: None,Stated [Primary Care Provider] - 1-2 days
[2016-10-12 17:11] LABS: Glucose,Whole Blood 89 mg/dL (75-99)
[2016-10-12 17:58] LABS: Basophils % (A) 1 %; CH 28.7; CHCM 32.6; Eosinophils # (A) 0.1 k/uL (0-0.7); Eosinophils % (A) 2 %; HCT 38.6 % (34.0-46.0); HDW 2.69; HGB 12.3 gm/dL (11.4-16.0); Luc # (Auto) 0.14; Luc % (Auto) 3; Lymphocytes # (A) 1.4 k/uL (1.0-4.8); Lymphocytes % (A) 26 %; MCH 28.1 pg (25.0-35.0); MCHC 31.7 g/dL (31.0-37.0); MCV 88.4 fL (80.0-100.0); Mean Platelet Volume 8.5; Monocytes # (A) 0.4 k/uL (0-1.0); Monocytes % (A) 8 %; Neutrophils # (A) 3.2 k/uL (1.3-7.7); Neutrophils % (A) 61 %; RBC 4.37 m/uL (3.80-5.40); RDW 13.9 % (11.5-15.5); WBC 5.2 k/uL (3.8-10.6); WBC (Perox) 4.73
[2016-10-12 17:59] LABS: Appearance,Urine Clear (Clear); Bilirubin,Urine Negative (Negative); Glucose,Urine (UA) Negative (Negative); Ketones,Urine Negative (Negative); Leukocyte Esterase,Urine Negative (Negative); Nitrite,Urine Negative (Negative); Protein,Urine Negative (Negative); Specific Gravity,Urine 1.009 (1.001-1.035); UA Billing (MACRO vs. MICRO) CHEM; Urobilinogen,Urine <2.0 mg/dL (<2.0)
[2016-10-12 18:07] LABS: ALT 28 U/L (9-52); AST 24 U/L (14-36); Acetaminophen <10.0 ug/mL; Alcohol <10 mg/dL; Alkaline Phosphatase 90 U/L (38-126); Anion Gap 10 mmol/L; Blood Urea Nitrogen 27 mg/dL (7-17); Calcium 9.5 mg/dL (8.4-10.2); Carbon Dioxide 26 mmol/L (22-30); Chloride 105 mmol/L (98-107); Glucose 102 mg/dL (74-99); Magnesium 1.9 mg/dL (1.6-2.3); Non-African American GFR(MDRD) >60 (>60 ml/min/1.73 sqM); Potassium 3.9 mmol/L (3.5-5.1); Salicylate <1.0 mg/dL; Sodium 141 mmol/L (137-145); Total Bilirubin 0.4 mg/dL (0.2-1.3); Total Protein 6.6 g/dL (6.3-8.2)
[2016-10-12 18:08] LABS: Creatine Kinase 35 U/L (30-135)
[2016-10-12] MEDS ORDERED: SODIUM CHLORIDE 0.9% 1,000 ML IV STA (18:12)
[2016-10-12] MEDS ORDERED: LORazepam 1 MG TAB PO STA (18:19)
[2016-10-12 18:22] LABS: Creatine Kinase MB 0.3 ng/mL (0.0-2.4); Troponin I <0.012 ng/mL (0.000-0.034)
--- NOTE | 2016-10-12 18:34 | XR ---
EXAMINATION TYPE: XR chest 2V DATE OF EXAM: 10/12/2016 6:24 PM COMPARISON: 05/05/2016 HISTORY: Altered mental status TECHNIQUE: Frontal and lateral views of the chest are obtained. FINDINGS: There is no heart failure nor confluent pneumonic infiltrate. There are no hilar masses. C ostophrenic angles are clear. There are chest leads. Bony thorax is intact. IMPRESSION: No active cardiopulmonary disease. No change.
--- NOTE | 2016-10-12 19:35 | CT ---
EXAMINATION TYPE: CT brain wo con DATE OF EXAM: 10/12/2016 7:29 PM COMPARISON: NONE HISTORY: Altered mental status. CT DLP: 1266.00 mGycm Automated exposure control for dose reduction was used. FINDINGS: Ventricles and sulci appear normal. There is no mass effect nor midline shift. There is no sign of in tracranial hemorrhage. The calvarium is intact. IMPRESSION: Negative unenhanced head CT scan.
[2016-10-12] MEDS ORDERED: IBUPROFEN 600 MG TAB PO STA (22:31)
[2016-10-13] MEDS ORDERED: LORazepam 1 MG TAB PO STA (01:20)
[2016-10-13] MEDS ORDERED: ZIPRASIDONE 20 MG VIAL IM STA (02:11)
[2016-10-13 06:59] VITALS: BP 146/67; PULSE 61; RESP 18; TEMP 98.9
== END 2016-10-13 06:32 ==
LOC: EC 16:15
DX: F32.9 Major depressive disorder, single episode, unspecified (principal); R45.851 Suicidal ideations; E07.9 Disorder of thyroid, unspecified; J45.909 Unspecified asthma, uncomplicated; I10 Essential (primary) hypertension; E78.5 Hyperlipidemia, unspecified; E11.9 Type 2 diabetes mellitus without complications; Z79.51 Long term (current) use of inhaled steroids; I25.10 Atherosclerotic heart disease of native coronary artery without angina pectoris; F41.9 Anxiety disorder, unspecified; Z79.899 Other long term (current) drug therapy; Z88.8 Allergy status to other drugs, medicaments and biological substances; Z88.0 Allergy status to penicillin; Z88.2 Allergy status to sulfonamides; Z88.7 Allergy status to serum and vaccine
CPT/HCPCS: 36415; 93005; 80053; 84443; 82140; 82550; 82553; 83735; 84484; 85025; 81003; 80306; 83520 ×2; 80320; 71020; 70450; 99285; 96360; 96372; J3486

== ENCOUNTER 2016-10-25 10:17 | Emergency (ER) | payer MEDICARE, OTHER ==
[2016-10-25 10:31] VITALS: RESP 18
--- NOTE | 2016-10-25 11:28 | XR ---
Left hip HISTORY: Trauma and pain 2 views of the left hip correlated to prior exam May 2016 Patient is status post open reduction internal fixation for left intertrochanteric femoral fracture. There is anatomic alignment. No evident dislocation. Soft tissue calcifications are present. IMPRESSION: I see no posttraumatic finding
[2016-10-25] MEDS ORDERED: ACETAMINOPHEN TAB 325 MG TAB PO STA (11:48)
--- NOTE | 2016-10-25 11:59 | ED ---
General Adult HPI - General Chief complaint: Extremity Injury, Lower Stated complaint: LEFT HIP INJURY, FROM FALL IN SHOWER Time Seen by Provider: 10/25/16 10:48 Source: patient, RN notes reviewed Mode of arrival: wheelchair Limitations: physical limitation - History of Present Illness Initial comments: Patient 56-year-old female who presents emergency room today with a chief complaint of an injury to the left hip that occurred 2 days ago. Does admit she was in the shower when she slipped push herself up against a wall. Does admit to some pain to the left hip area over the last 2 days. States she has been a laboratory with a walker. Patient denies any complaints or associated symptoms. Patient denies any recent fever, chills, shortness of breath, chest pain, back pain, abdominal pain, nausea or vomiting, numbness or tingling, dysuria or hematuria, constipation or diarrhea, headaches or visual changes, or any other complaints. - Related Data Home Medications Medication Instructions Recorded Confirmed Gabapentin [Neurontin] 600 mg PO TID@0900,1300,1700 07/09/15 10/25/16 Carvedilol 25 mg PO BID@0900,1700 10/10/15 10/25/16 Pravastatin Sodium 80 mg PO HS@209910/10/15 10/25/16 Levothyroxine Sodium [Synthroid] 137 mcg PO DAILY@0630 11/05/15 10/25/16 DULoxetine HCL [Cymbalta] 60 mg PO DAILY@0900 05/05/16 10/25/16 rOPINIRole HCL [Requip] 3 mg PO HS@209905/05/16 10/25/16 LORazepam [Ativan] 1 mg PO TID@0900,1300,1700 08/15/16 10/25/16 Fluticasone Propionate [Flonase 1 spray EA NOSTRIL BID@0900,1700 10/12/16 Allergy Relief] Furosemide [Lasix] 40 mg PO DAILY@0910/25/16 10/25/16 Lurasidone [Latuda] 80 mg PO HS@209910/25/16 10/25/16 Mirabegron [Myrbetriq] 25 mg PO DAILY@0900 10/25/16 10/25/16 Multivitamins, Thera [Multivitamin] 1 tab PO DAILY@0900 10/25/16 10/25/16 Nystatin [Nystop] 1 applic TOPICAL BID@0900,1700 10/25/16 10/25/16 Topiramate [Topamax] 100 mg PO BID@0900,2100 10/25/16 10/25/16 hydrOXYzine PAMOATE [Vistaril] 50 mg PO TID@0900,1700,2100 10/25/16 10/25/16 Previous Rx's Medication Instructions Recorded Acetaminophen Tab [Tylenol] 1,000 mg PO TID 5 Days 10/25/16 Allergies Allergy/AdvReac Type Severity Reaction Status Date / Time haloperidol [From Haldol] Allergy Swelling Verified 10/25/16 10:19 haloperidol lactate Allergy Swelling Verified 10/25/16 10:19 [From Haldol] iodine Allergy Swelling Verified 10/25/16 10:19 Penicillins Allergy Swelling Verified 10/25/16 10:19 prochlorperazine Allergy Rash/Hives Verified 10/25/16 10:19 [From Compazine] prochlorperazine edisylate Allergy Rash/Hives Verified 10/25/16 10:19 [From Compazine] prochlorperazine maleate Allergy Rash/Hives Verified 10/25/16 10:19 [From Compazine] Sulfa (Sulfonamide Allergy Rash/Hives Verified 10/25/16 10:19 Antibiotics) Tetanus Vaccines and Toxoid Allergy Rash/Hives Verified 10/25/16 10:19 [Tetanus Vaccines & Toxoid] trifluoperazine HCl Allergy Unknown Verified 10/25/16 10:19 [From Stelazine] Review of Systems ROS Statement: Those systems with pertinent positive or pertinent negative responses have been documented in the HPI. ROS Other: All systems not noted in ROS Statement are negative. Past Medical History Past Medical History: Asthma, Coronary Artery Disease (CAD), Diabetes Mellitus, Hyperlipidemia, Hypertension, Musculoskeletal Disorder, Osteoarthritis (OA), Thyroid Disorder Additional Past Medical History / Comment(s): Morbid obesity, unable to bear due to significant and profound lower extremity weakness and patient has been placed in medical [place] for that reason. CAT scan of the lumbar spine was done that showed some degenerative arthritic changes. Urinary incontinence; Yeast infection under abd. apron. History of Any Multi-Drug Resistant Organisms: None Reported Past Surgical History: Bariatric Surgery, Hernia Repair, Orthopedic Surgery Additional Past Surgical History / Comment(s): Total Right knee replacement, 3 hernia repairs. hip repair Past Anesthesia/Blood Transfusion Reactions: No Reported Reaction Past Psychological History: Anxiety, Bipolar, Depression Smoking Status: Never smoker Past Alcohol Use History: None Reported Past Drug Use History: None Reported - Past Family History Mother Family Medical History: Cancer Additional Family Medical History / Comment(s): lung cancer Father Additional Family Medical History / Comment(s): "my dad from a blood clot" patient is unsure where the blood clot was. Brother(s) Family Medical History: Diabetes Mellitus Sister(s) Additional Family Medical History / Comment(s): "her heart races too fast" General Exam - General Exam Comments Initial Comments: General: The patient is awake and alert, in no distress, and does not appear acutely ill. Eye: Pupils are equal, round and reactive to light, extra-ocular movements are intact. No nystagmus. There is normal conjunctiva bilaterally. No signs of icterus. Ears, nose, mouth and throat: There are moist mucous membranes and no oral lesions. Neck: The neck is supple, there is no tenderness or JVD. Cardiovascular: There is a regular rate and rhythm. No murmur, rub or gallop is appreciated. Respiratory: Lungs are clear to auscultation, respirations are non-labored, breath sounds are equal. No wheezes, stridor, rales, or rhonchi. Gastrointestinal: Soft, non-distended, non-tender abdomen without masses or organomegaly noted. There is no rebound or guarding present. No CVA tenderness. Bowel sounds are unremarkable. Musculoskeletal: Normal appearance of the left hip no obvious swelling, deformity. Shows good range of motion. Negative logroll maneuver. Mild tenderness over the lateral aspect. Strength 5/5. Sensation intact. Pulses equal bilaterally 2+. Neurological: A&O x 3. CN II-XII intact, There are no obvious motor or sensory deficits. Coordination appears grossly intact. Speech is normal. Skin: Skin is warm and dry and no rashes or lesions are noted. Psychiatric: Cooperative, appropriate mood & affect, normal judgment. Limitations: physical limitation Course Vital Signs 10/25/16 10:19 Temperature 98.3 F Pulse Rate 79 Respiratory 18 Rate Blood Pressure 143/68 O2 Sat by Pulse 98 Oximetry Medical Decision Making - Medical Decision Making X-ray reviewed and is negative for any acute fracture dislocation. Results were discussed with the patient. Patient and the door and weightbearing. Will be discharged home. Disposition Clinical Impression: Contusion of hip, left Disposition: HOME SELF-CARE Condition: Good Instructions: Contusion in Adults (ED) Additional Instructions: Please use medication as discussed. Please follow-up with family doctor in the next 2 days of symptoms have not improved. Please return to emergency room if the symptoms increase or worsen or for any other concerns. Prescriptions: Acetaminophen Tab [Tylenol] 1,000 mg PO TID 5 Days Time of Disposition: 12:01
[2016-10-25 12:33] VITALS: BP 176/87; PULSE 80; TEMP 97.9
== END 2016-10-25 12:34 | disposition home or self-care (01) ==
LOC: EC 10:17
DX: S70.02XA Contusion of left hip, initial encounter (principal); W18.2XXA Fall in (into) shower or empty bathtub, initial encounter; Y93.E1 Activity, personal bathing and showering; E11.9 Type 2 diabetes mellitus without complications; I10 Essential (primary) hypertension; I25.10 Atherosclerotic heart disease of native coronary artery without angina pectoris; J45.909 Unspecified asthma, uncomplicated; E78.5 Hyperlipidemia, unspecified; E07.9 Disorder of thyroid, unspecified; M19.90 Unspecified osteoarthritis, unspecified site; F41.9 Anxiety disorder, unspecified; F31.9 Bipolar disorder, unspecified; E66.01 Morbid (severe) obesity due to excess calories; Z96.651 Presence of right artificial knee joint; Z79.899 Other long term (current) drug therapy; Z79.51 Long term (current) use of inhaled steroids; Z88.0 Allergy status to penicillin; Z88.2 Allergy status to sulfonamides
CPT/HCPCS: 73502; 99283

== ENCOUNTER 2016-10-30 17:44 | Emergency (ER) | payer MEDICARE, OTHER ==
--- NOTE | 2016-10-30 20:18 | ED ---
General Adult HPI - General Chief complaint: Psychiatric Symptoms Stated complaint: Mental health Time Seen by Provider: 10/30/16 19:32 Source: patient, RN notes reviewed, old records reviewed Mode of arrival: wheelchair Limitations: physical limitation - History of Present Illness Initial comments: This is a 56-year-old female here for psychiatric evaluation. Patient has history of psychiatric disease comers admitted for psychiatric process. Patient was discharged states she is not doing better at home, feels like suicidal thoughts or returning. She states she's following plan and take medications as prescribed denies drugs or alcohol - Related Data Home Medications Medication Instructions Recorded Confirmed Gabapentin [Neurontin] 600 mg PO TID@0900,1300,1700 07/09/15 10/30/16 Carvedilol 25 mg PO BID@0900,1700 10/10/15 10/30/16 Pravastatin Sodium 80 mg PO HS@209910/10/15 10/30/16 Levothyroxine Sodium [Synthroid] 137 mcg PO DAILY@0630 11/05/15 10/30/16 DULoxetine HCL [Cymbalta] 60 mg PO DAILY@0900 05/05/16 10/30/16 rOPINIRole HCL [Requip] 3 mg PO HS@209905/05/16 10/30/16 LORazepam [Ativan] 1 mg PO TID@0900,1300,1700 08/15/16 10/30/16 Fluticasone Propionate [Flonase 1 spray EA NOSTRIL BID@0900,1700 10/12/16 Allergy Relief] Furosemide [Lasix] 40 mg PO DAILY@89910/25/16 10/30/16 Lurasidone [Latuda] 80 mg PO HS@209910/25/16 10/30/16 Mirabegron [Myrbetriq] 25 mg PO DAILY@89910/25/16 10/30/16 Multivitamins, Thera [Multivitamin] 1 tab PO DAILY@89910/25/16 10/30/16 Nystatin [Nystop] 1 applic TOPICAL BID@0900,1700 10/25/16 10/30/16 Topiramate [Topamax] 100 mg PO BID@0900,209910/25/16 10/30/16 hydrOXYzine PAMOATE [Vistaril] 100 mg PO HS@2099 10/30/16 10/30/16 rOPINIRole HCL [Requip] 2 mg PO DAILY@1300 10/30/16 10/30/16 Previous Rx's Medication Instructions Recorded Acetaminophen Tab [Tylenol] 1,000 mg PO TID 5 Days 10/25/16 Allergies Allergy/AdvReac Type Severity Reaction Status Date / Time buspirone [From BuSpar] Allergy Unknown Verified 10/30/16 19:43 haloperidol [From Haldol] Allergy Swelling Verified 10/30/16 19:43 haloperidol lactate Allergy Swelling Verified 10/30/16 19:43 [From Haldol] iodine Allergy Swelling Verified 10/30/16 19:43 Penicillins Allergy Swelling Verified 10/30/16 19:43 prochlorperazine edisylate Allergy Rash/Hives Verified 10/30/16 19:43 [From Compazine] prochlorperazine maleate Allergy Rash/Hives Verified 10/30/16 19:43 [From Compazine] Sulfa (Sulfonamide Allergy Rash/Hives Verified 10/30/16 19:43 Antibiotics) Tetanus Vaccines and Toxoid Allergy Rash/Hives Verified 10/30/16 19:43 [Tetanus Vaccines & Toxoid] trifluoperazine HCl Allergy Unknown Verified 10/30/16 19:43 [From Stelazine] Review of Systems ROS Statement: Those systems with pertinent positive or pertinent negative responses have been documented in the HPI. ROS Other: All systems not noted in ROS Statement are negative. Past Medical History Past Medical History: Asthma, Coronary Artery Disease (CAD), Diabetes Mellitus, Hyperlipidemia, Hypertension, Musculoskeletal Disorder, Osteoarthritis (OA), Thyroid Disorder Additional Past Medical History / Comment(s): Morbid obesity, unable to bear due to significant and profound lower extremity weakness and patient has been placed in medical [place] for that reason. CAT scan of the lumbar spine was done that showed some degenerative arthritic changes. Urinary incontinence; Yeast infection under abd. apron. History of Any Multi-Drug Resistant Organisms: None Reported Past Surgical History: Bariatric Surgery, Hernia Repair, Orthopedic Surgery Additional Past Surgical History / Comment(s): Total Right knee replacement, 3 hernia repairs. hip repair Past Anesthesia/Blood Transfusion Reactions: No Reported Reaction Past Psychological History: Anxiety, Bipolar, Depression Smoking Status: Never smoker Past Alcohol Use History: None Reported Past Drug Use History: None Reported - Past Family History Mother Family Medical History: Cancer Additional Family Medical History / Comment(s): lung cancer Father Additional Family Medical History / Comment(s): "my dad from a blood clot" patient is unsure where the blood clot was. Brother(s) Family Medical History: Diabetes Mellitus Sister(s) Additional Family Medical History / Comment(s): "her heart races too fast" General Exam Limitations: physical limitation General appearance: alert, in no apparent distress Head exam: Present: atraumatic, normocephalic, normal inspection Eye exam: Present: normal appearance, PERRL, EOMI. Absent: scleral icterus, conjunctival injection, periorbital swelling ENT exam: Present: normal exam, mucous membranes moist Neck exam: Present: normal inspection. Absent: tenderness, meningismus, lymphadenopathy Respiratory exam: Present: normal lung sounds bilaterally. Absent: respiratory distress, wheezes, rales, rhonchi, stridor Cardiovascular Exam: Present: regular rate, normal rhythm, normal heart sounds. Absent: systolic murmur, diastolic murmur, rubs, gallop, clicks GI/Abdominal exam: Present: soft, normal bowel sounds. Absent: distended, tenderness, guarding, rebound, rigid Extremities exam: Present: normal inspection, full ROM, normal capillary refill. Absent: tenderness, pedal edema, joint swelling, calf tenderness Back exam: Present: normal inspection Neurological exam: Present: alert, oriented X3, CN II-XII intact Psychiatric exam: Present: normal affect, normal mood Skin exam: Present: warm, dry, intact, normal color. Absent: rash Course Vital Signs 10/30/16 10/31/16 10/31/16 17:59 01:21 05:16 Temperature 97.5 F L 97.6 F 98 F Pulse Rate 101 H 79 78 Respiratory 20 18 20 Rate Blood Pressure 123/81 125/60 128/68 O2 Sat by Pulse 97 96 99 Oximetry - Reevaluation(s) Reevaluation #1: 10/30/16 20:18 Patient's medically clear for psychiatric evaluation Medical Decision Making - Medical Decision Making 56 female here for psychiatric evaluation treatment, seen and evaluated with psychiatry outpatient will be treated by outpatient psychiatric - Lab Data Result diagrams: 10/30/16 21:50 10/30/16 21:50 Lab Results 10/30/16 10/30/16 10/30/16 Range/Units 19:24 19:24 21:50 WBC 6.0 (3.8-10.6) k/uL RBC 4.11 (3.80-5.40) m/uL Hgb 12.1 (11.4-16.0) gm/dL Hct 36.7 (34.0-46.0) % MCV 89.4 (80.0-100.0) fL MCH 29.5 (25.0-35.0) pg MCHC 33.0 (31.0-37.0) g/dL RDW 14.3 (11.5-15.5) % Plt Count 265 (150-450) k/uL Neutrophils % 65 % Lymphocytes % 24 % Monocytes % 6 % Eosinophils % 2 % Basophils % 1 % Neutrophils # 3.9 (1.3-7.7) k/uL Lymphocytes # 1.4 (1.0-4.8) k/uL Monocytes # 0.3 (0-1.0) k/uL Eosinophils # 0.1 (0-0.7) k/uL Basophils # 0.0 (0-0.2) k/uL Sodium (137-145) mmol/L Potassium (3.5-5.1) mmol/L Chloride (98-107) mmol/L Carbon Dioxide (22-30) mmol/L Anion Gap mmol/L BUN (7-17) mg/dL Creatinine (0.52-1.04) mg/dL Est GFR (MDRD) Af Amer (>60 ml/min/1.73 sqM) Est GFR (MDRD) Non-Af (>60 ml/min/1.73 sqM) Glucose (74-99) mg/dL Calcium (8.4-10.2) mg/dL Total Bilirubin (0.2-1.3) mg/dL AST (14-36) U/L ALT (9-52) U/L Alkaline Phosphatase (38-126) U/L Total Protein (6.3-8.2) g/dL Albumin (3.5-5.0) g/dL Urine Color Light Yellow Urine Appearance Clear (Clear) Urine pH 5.0 (5.0-8.0) Ur Specific [place] 1.007 (1.001-1.035) Urine Protein Negative (Negative) Urine Glucose (UA) Negative (Negative) Urine Ketones Negative (Negative) Urine Blood Negative (Negative) Urine Nitrate Negative (Negative) Urine Bilirubin Negative (Negative) Urine Urobilinogen <2.0 (<2.0) mg/dL Ur Leukocyte Esterase Trace H (Negative) Urine WBC 2 (0-5) /hpf Ur Squamous Epith Cells 1 (0-4) /hpf Urine HCG, Qual Not Detected (Not Detectd) Urine Opiates Screen Not Detected (NotDetected) Ur Oxycodone Screen Not Detected (NotDetected) Urine Methadone Screen Not Detected (NotDetected) Ur Propoxyphene Screen Not Detected (NotDetected) Ur Barbiturates Screen Not Detected (NotDetected) U Tricyclic Antidepress Not Detected (NotDetected) Ur Phencyclidine Scrn Not Detected (NotDetected) Ur Amphetamines Screen Not Detected (NotDetected) U Methamphetamines Scrn Not Detected (NotDetected) U Benzodiazepines Scrn Detected H (NotDetected) Urine Cocaine Screen Not Detected (NotDetected) U Marijuana (THC) Screen Not Detected (NotDetected) 10/30/16 Range/Units 21:50 WBC (3.8-10.6) k/uL RBC (3.80-5.40) m/uL Hgb (11.4-16.0) gm/dL Hct (34.0-46.0) % MCV (80.0-100.0) fL MCH (25.0-35.0) pg MCHC (31.0-37.0) g/dL RDW (11.5-15.5) % Plt Count (150-450) k/uL Neutrophils % % Lymphocytes % % Monocytes % % Eosinophils % % Basophils % % Neutrophils # (1.3-7.7) k/uL Lymphocytes # (1.0-4.8) k/uL Monocytes # (0-1.0) k/uL Eosinophils # (0-0.7) k/uL Basophils # (0-0.2) k/uL Sodium 142 (137-145) mmol/L Potassium 4.5 (3.5-5.1) mmol/L Chloride 108 H (98-107) mmol/L Carbon Dioxide 22 (22-30) mmol/L Anion Gap 12 mmol/L BUN 23 H (7-17) mg/dL Creatinine 0.85 (0.52-1.04) mg/dL Est GFR (MDRD) Af Amer >60 (>60 ml/min/1.73 sqM) Est GFR (MDRD) Non-Af >60 (>60 ml/min/1.73 sqM) Glucose 94 (74-99) mg/dL Calcium 9.4 (8.4-10.2) mg/dL Total Bilirubin 0.4 (0.2-1.3) mg/dL AST 25 (14-36) U/L ALT 25 (9-52) U/L Alkaline Phosphatase 92 (38-126) U/L Total Protein 7.1 (6.3-8.2) g/dL Albumin 4.1 (3.5-5.0) g/dL Urine Color Urine Appearance (Clear) Urine pH (5.0-8.0) Ur Specific [place] (1.001-1.035) Urine Protein (Negative) Urine Glucose (UA) (Negative) Urine Ketones (Negative) Urine Blood (Negative) Urine Nitrate (Negative) Urine Bilirubin (Negative) Urine Urobilinogen (<2.0) mg/dL Ur Leukocyte Esterase (Negative) Urine WBC (0-5) /hpf Ur Squamous Epith Cells (0-4) /hpf Urine HCG, Qual (Not Detectd) Urine Opiates Screen (NotDetected) Ur Oxycodone Screen (NotDetected) Urine Methadone Screen (NotDetected) Ur Propoxyphene Screen (NotDetected) Ur Barbiturates Screen (NotDetected) U Tricyclic Antidepress (NotDetected) Ur Phencyclidine Scrn (NotDetected) Ur Amphetamines Screen (NotDetected) U Methamphetamines Scrn (NotDetected) U Benzodiazepines Scrn (NotDetected) Urine Cocaine Screen (NotDetected) U Marijuana (THC) Screen (NotDetected) Disposition Clinical Impression: Depression, Anxiety Disposition: TRANSFER TO PSYCH HOSP/UNIT Condition: Fair Referrals: Tessy Baer DO [Primary Care Provider] - 1-2 days
[2016-10-30 21:56] LABS: Appearance,Urine Clear (Clear); Bilirubin,Urine Negative (Negative); Glucose,Urine (UA) Negative (Negative); Ketones,Urine Negative (Negative); Leukocyte Esterase,Urine Trace (Negative); Nitrite,Urine Negative (Negative); Particle Count 1149; Protein,Urine Negative (Negative); Specific Gravity,Urine 1.007 (1.001-1.035); Squamous Epithelial Cell,Urine 1 /hpf (0-4); UA Billing (MACRO vs. MICRO) MICRO; Urobilinogen,Urine <2.0 mg/dL (<2.0); WBC,Urine 2 /hpf (0-5)
[2016-10-30 22:06] LABS: Basophils % (A) 1 %; CH 28.8; CHCM 32.4; Eosinophils # (A) 0.1 k/uL (0-0.7); Eosinophils % (A) 2 %; HCT 36.7 % (34.0-46.0); HDW 2.74; HGB 12.1 gm/dL (11.4-16.0); Luc # (Auto) 0.18; Luc % (Auto) 3; Lymphocytes # (A) 1.4 k/uL (1.0-4.8); Lymphocytes % (A) 24 %; MCH 29.5 pg (25.0-35.0); MCV 89.4 fL (80.0-100.0); Mean Platelet Volume 7.6; Monocytes # (A) 0.3 k/uL (0-1.0); Monocytes % (A) 6 %; Neutrophils # (A) 3.9 k/uL (1.3-7.7); Neutrophils % (A) 65 %; RBC 4.11 m/uL (3.80-5.40); RDW 14.3 % (11.5-15.5); WBC (Perox) 6.14
[2016-10-30 22:16] LABS: ALT 25 U/L (9-52); AST 25 U/L (14-36); Alkaline Phosphatase 92 U/L (38-126); Anion Gap 12 mmol/L; Blood Urea Nitrogen 23 mg/dL (7-17); Calcium 9.4 mg/dL (8.4-10.2); Carbon Dioxide 22 mmol/L (22-30); Chloride 108 mmol/L (98-107); Glucose 94 mg/dL (74-99); Non-African American GFR(MDRD) >60 (>60 ml/min/1.73 sqM); Potassium 4.5 mmol/L (3.5-5.1); Sodium 142 mmol/L (137-145); Total Bilirubin 0.4 mg/dL (0.2-1.3); Total Protein 7.1 g/dL (6.3-8.2)
[2016-10-30] MEDS ORDERED: ACETAMINOPHEN TAB 500 MG TAB PO STA (22:42)
[2016-10-30] MEDS ORDERED: LORazepam 1 MG TAB PO STA (22:51)
[2016-10-30] MEDS ORDERED: SIMETHICONE 80 MG CHEWABLE PO ONE (23:30)
[2016-10-31] MEDS ORDERED: PRAVASTATIN SODIUM 80 MG TAB PO STA (02:54)
[2016-10-31] MEDS ORDERED: TOPIRAMATE 100 MG TAB PO STA (03:00)
[2016-10-31] MEDS ORDERED: hydrOXYzine PAMOATE 25 MG CAP PO STA (03:01)
[2016-10-31] MEDS ORDERED: LURASIDONE 80 MG TAB PO STA (03:01)
[2016-10-31 05:20] VITALS: BP 128/68; PULSE 78; RESP 20; TEMP 98
[2016-10-31] MEDS ORDERED: SIMETHICONE 80 MG CHEWABLE PO SCH ×2 (09:00)
== END 2016-10-31 05:24 ==
LOC: EC 17:44
DX: F31.9 Bipolar disorder, unspecified (principal); F41.9 Anxiety disorder, unspecified; I10 Essential (primary) hypertension; E78.5 Hyperlipidemia, unspecified; E07.9 Disorder of thyroid, unspecified; M19.90 Unspecified osteoarthritis, unspecified site; R32 Unspecified urinary incontinence; Z79.51 Long term (current) use of inhaled steroids; Z79.899 Other long term (current) drug therapy; Z88.0 Allergy status to penicillin; Z88.2 Allergy status to sulfonamides; Z88.7 Allergy status to serum and vaccine; Z88.8 Allergy status to other drugs, medicaments and biological substances
CPT/HCPCS: 36415; 80053; 80306; 81001; 81025; 82075; 85025; 99285

== ENCOUNTER 2016-11-03 19:42 | Emergency (ER) | payer MEDICARE, OTHER ==
[2016-11-03 19:59] VITALS: PULSE 70; RESP 18
[2016-11-03] MEDS ORDERED: SODIUM CHLORIDE 0.9% 500 ML IV STA (20:26)
[2016-11-03] MEDS ORDERED: ONDANSETRON 4 MG/2 ML VIAL IVP STA (20:26)
[2016-11-03] MEDS ORDERED: ACETAMINOPHEN TAB 500 MG TAB PO STA (20:26)
--- NOTE | 2016-11-03 20:37 | ED ---
General Adult HPI - General Chief complaint: Headache Stated complaint: Headache Time Seen by Provider: 11/03/16 20:07 Source: patient, EMS, RN notes reviewed, old records reviewed Mode of arrival: EMS Limitations: no limitations - History of Present Illness Initial comments: Chief complaint and history of present illness a 56-year-old female who approximately 90 minutes prior to calling EMS had a headache. Mild nausea no vomiting. Mild photophobia. No stiff neck. Denies any fevers. No injuries. - Related Data Home Medications Medication Instructions Recorded Confirmed Gabapentin [Neurontin] 600 mg PO TID@0900,1300,1700 07/09/15 11/03/16 Carvedilol 25 mg PO BID@0900,1700 10/10/15 11/03/16 Pravastatin Sodium 80 mg PO HS@209910/10/15 11/03/16 Levothyroxine Sodium [Synthroid] 137 mcg PO DAILY@0630 11/05/15 11/03/16 DULoxetine HCL [Cymbalta] 60 mg PO DAILY@0905/05/16 11/03/16 rOPINIRole HCL [Requip] 3 mg PO HS@209905/05/16 11/03/16 LORazepam [Ativan] 1 mg PO TID@0900,1300,1700 08/15/16 11/03/16 Furosemide [Lasix] 40 mg PO DAILY@0910/25/16 11/03/16 Lurasidone [Latuda] 80 mg PO HS@209910/25/16 11/03/16 Multivitamins, Thera [Multivitamin] 1 tab PO DAILY@0910/25/16 11/03/16 Nystatin [Nystop] 1 applic TOPICAL BID@0900,1700 10/25/16 11/03/16 Topiramate [Topamax] 100 mg PO BID@0900,209910/25/16 11/03/16 hydrOXYzine PAMOATE [Vistaril] 100 mg PO HS@209910/30/16 11/03/16 rOPINIRole HCL [Requip] 2 mg PO DAILY@1300 10/30/16 11/03/16 Ibuprofen [Motrin] 600 mg PO Q6H PRN 11/03/16 11/03/16 traZODone HCL [Desyrel] 200 mg PO HS 11/03/16 11/03/16 Allergies Allergy/AdvReac Type Severity Reaction Status Date / Time buspirone [From BuSpar] Allergy Unknown Verified 11/03/16 19:57 haloperidol [From Haldol] Allergy Swelling Verified 11/03/16 19:57 haloperidol lactate Allergy Swelling Verified 11/03/16 19:57 [From Haldol] iodine Allergy Swelling Verified 11/03/16 19:57 Penicillins Allergy Swelling Verified 11/03/16 19:57 prochlorperazine edisylate Allergy Rash/Hives Verified 11/03/16 19:57 [From Compazine] prochlorperazine maleate Allergy Rash/Hives Verified 11/03/16 19:57 [From Compazine] Sulfa (Sulfonamide Allergy Rash/Hives Verified 11/03/16 19:57 Antibiotics) Tetanus Vaccines and Toxoid Allergy Rash/Hives Verified 11/03/16 19:57 [Tetanus Vaccines & Toxoid] trifluoperazine HCl Allergy Unknown Verified 11/03/16 19:57 [From Stelazine] Review of Systems ROS Statement: Those systems with pertinent positive or pertinent negative responses have been documented in the HPI. Review of systems. At this time minimal no headache. The patient was given IV morphine and Zofran prior to coming emergency room. Denying chest pain shortness breath GI/ problems at this time. No pain with movement of the head or neck. Not complaining of any neuro deficits. She does a peripheral neuropathy. She weighs neck systems reviewed and 50 pounds and uses a push chair. Past medical problems significant for asthma, coronary artery disease, diabetes mellitus without medications. Hyperlipidemia, hypertension, chronic musculoskeletal pain. Osteoarthritis, hypothyroidism. Morbid obesity. The patient's surgeries include bariatric surgery. Hernia repair,. The patient's family history noncontributory. ALLERGIES to BuSpar ROM, haloperidol, iodine, penicillin, prochlorperazine. ROS Other: All systems not noted in ROS Statement are negative. Past Medical History Past Medical History: Asthma, Coronary Artery Disease (CAD), Diabetes Mellitus, Hyperlipidemia, Hypertension, Musculoskeletal Disorder, Osteoarthritis (OA), Thyroid Disorder Additional Past Medical History / Comment(s): Morbid obesity, unable to bear due to significant and profound lower extremity weakness and patient has been placed in medical [place] for that reason. CAT scan of the lumbar spine was done that showed some degenerative arthritic changes. Urinary incontinence; Yeast infection under abd. apron. History of Any Multi-Drug Resistant Organisms: None Reported Past Surgical History: Bariatric Surgery, Hernia Repair, Orthopedic Surgery Additional Past Surgical History / Comment(s): Total Right knee replacement, 3 hernia repairs. hip repair Past Anesthesia/Blood Transfusion Reactions: No Reported Reaction Past Psychological History: Anxiety, Bipolar, Depression Smoking Status: Never smoker Past Alcohol Use History: None Reported Past Drug Use History: None Reported - Past Family History Mother Family Medical History: Cancer Additional Family Medical History / Comment(s): lung cancer Father Additional Family Medical History / Comment(s): "my dad from a blood clot" patient is unsure where the blood clot was. Brother(s) Family Medical History: Diabetes Mellitus Sister(s) Additional Family Medical History / Comment(s): "her heart races too fast" General Exam - General Exam Comments Initial Comments: General: The patient is awake and alert, in no distress, and does not appear acutely ill. Patient had a headache which is relieved with medications provided by EMS. Nausea no vomiting. Currently no headache or chest pain or palpitations. Vital signs show temperature 96.8 pulse 70 respiratory rate 18 pulse ox R percent room air blood pressure 141/66 Eye: Pupils are equal, round and reactive to light, extra-ocular movements are intact ; there is normal conjunctiva bilaterally. No signs of icterus. Ears, nose, mouth and throat: There are moist mucous membranes and no oral lesions. Neck: The neck is supple, there is no tenderness or JVD. Cardiovascular: There is a regular rate and rhythm. No murmur, rub or gallop is appreciated. Respiratory: Lungs are clear to auscultation, respirations are non-labored, breath sounds are equal. No wheezes, stridor, rales, or rhonchi. Gastrointestinal: Soft, non-distended, non-tender abdomen without masses or organomegaly noted. There is no rebound or guarding present. No CVA tenderness. Bowel sounds are unremarkable. Morbidly obese weighs in excess of 350. Back: There is no tenderness to palpation in the midline. Musculoskeletal: Normal ROM, no tenderness, There is no pedal edema. There is no calf tenderness or swelling. Sensation intact. Pulses equal bilaterally 2+. Neurological: CN II-XII intact, There are no obvious motor or sensory deficits. Coordination appears grossly intact. Speech is normal. No focal or lateralizing findings. Skin: Skin is warm and dry and no rashes or lesions are noted. Psychiatric: History of bipolar disorder not complaining of any depression. Patient was recently transferred down to [facility] had evaluation by the physician and was discharged to same day. Limitations: no limitations Course Vital Signs 11/03/16 19:53 Temperature 96.8 F L Pulse Rate 70 Respiratory 18 Rate Blood Pressure 141/66 O2 Sat by Pulse 100 Oximetry EKG Findings - EKG Comments: EKG Findings:: EKG was done and reviewed at 195 showing normal sinus rhythm no acute ST elevation no ectopy no ischemic changes. Rate 63 OR interval was 134 QRS 98 QT [address] Torres Medical Decision Making - Medical Decision Making Patient received fluids and IV morphine with good results. Patient is rated go home. No headache no nausea no vomiting. No chest pain or shortness of breath. Neurological grossly intact. Patient advised to follow-up with family physician. Disposition Clinical Impression: Headache Disposition: HOME SELF-CARE Condition: Good Instructions: Acute Headache (ED) Additional Instructions: Take Tylenol or ibuprofen for your pain. Follow-up with your family doctor. Time of Disposition: 21:41
[2016-11-03] MEDS ORDERED: MORPHINE SULFATE 4 MG/ML SYRINGE IVP STA (21:06)
[2016-11-03 22:02] VITALS: BP 114/58; TEMP 98.2
== END 2016-11-03 22:01 | disposition home or self-care (01) ==
LOC: EC 19:42
DX: R51 Headache (principal); E11.9 Type 2 diabetes mellitus without complications; J45.909 Unspecified asthma, uncomplicated; I25.10 Atherosclerotic heart disease of native coronary artery without angina pectoris; M79.1 Myalgia; G89.29 Other chronic pain; I10 Essential (primary) hypertension; E78.5 Hyperlipidemia, unspecified; M19.90 Unspecified osteoarthritis, unspecified site; E03.9 Hypothyroidism, unspecified; E66.01 Morbid (severe) obesity due to excess calories; Z98.84 Bariatric surgery status; F41.9 Anxiety disorder, unspecified; F31.9 Bipolar disorder, unspecified; F32.9 Major depressive disorder, single episode, unspecified; Z88.2 Allergy status to sulfonamides; Z88.8 Allergy status to other drugs, medicaments and biological substances; Z88.7 Allergy status to serum and vaccine; Z88.0 Allergy status to penicillin; Z79.899 Other long term (current) drug therapy; Z91.048 Other nonmedicinal substance allergy status
CPT/HCPCS: 93005; 99284; 96374; 96375; 96361; J2270; J2405

== ENCOUNTER 2016-11-11 14:03 | Emergency (ER) | payer MEDICARE, OTHER ==
--- NOTE | 2016-11-11 14:40 | ED ---
Female Urogenital HPI - General Chief complaint: Urogenital Stated complaint: bladder problems Time Seen by Provider: 11/11/16 14:27 Source: patient Mode of arrival: wheelchair Limitations: no limitations - History of Present Illness Initial comments: 56-year-old female patient presents to emergency department today for complaints of urinary incontinence. Patient states that she is usually incontinent, but since yesterday has been worsening shoulder. Patient states she is having some dysuria, and going more frequently than usual. Patient states she is having some mild lower abdominal cramping. She denies any fever, chills, nausea, vomiting, back pain, chest pain, shortness of breath, dizziness , weakness, constipation, or diarrhea. Patient does take Ditropan which was recently switched from Myrbetriq due to insurance reasons. Patient does chronically wear briefs for incontinence. - Related Data Home Medications Medication Instructions Recorded Confirmed Gabapentin [Neurontin] 600 mg PO TID@0900,1300,1700 07/09/15 11/11/16 Carvedilol 25 mg PO BID@0900,1700 10/10/15 11/11/16 Pravastatin Sodium 80 mg PO HS@209910/10/15 11/11/16 Levothyroxine Sodium [Synthroid] 137 mcg PO DAILY@0630 11/05/15 11/11/16 DULoxetine HCL [Cymbalta] 60 mg PO DAILY@0900 05/05/16 11/11/16 rOPINIRole HCL [Requip] 3 mg PO HS@209905/05/16 11/11/16 LORazepam [Ativan] 1 mg PO TID@0900,1300,1700 08/15/16 11/11/16 Furosemide [Lasix] 40 mg PO DAILY@0900 10/25/16 11/11/16 Lurasidone [Latuda] 80 mg PO HS@209910/25/16 11/11/16 Multivitamins, Thera [Multivitamin] 1 tab PO DAILY@89910/25/16 11/11/16 Nystatin [Nystop] 1 applic TOPICAL BID@0900,1700 10/25/16 11/11/16 Topiramate [Topamax] 100 mg PO BID@0900,209910/25/16 11/11/16 hydrOXYzine PAMOATE [Vistaril] 100 mg PO HS@2100 10/30/16 11/11/16 rOPINIRole HCL [Requip] 2 mg PO DAILY@1300 10/30/16 11/11/16 Ibuprofen [Motrin] 600 mg PO Q6H PRN 11/03/16 11/11/16 traZODone HCL [Desyrel] 200 mg PO HS 11/03/16 11/11/16 Oxybutynin Chloride [Ditropan XL] 10 mg PO DAILY 11/11/16 11/11/16 Previous Rx's Medication Instructions Recorded Ciprofloxacin HCl [Cipro] 500 mg PO Q12HR #10 tablet 11/11/16 Allergies Allergy/AdvReac Type Severity Reaction Status Date / Time buspirone [From BuSpar] Allergy Unknown Verified 11/11/16 14:20 haloperidol [From Haldol] Allergy Swelling Verified 11/11/16 14:20 haloperidol lactate Allergy Swelling Verified 11/11/16 14:20 [From Haldol] iodine Allergy Swelling Verified 11/11/16 14:20 Penicillins Allergy Swelling Verified 11/11/16 14:20 prochlorperazine edisylate Allergy Rash/Hives Verified 11/11/16 14:20 [From Compazine] prochlorperazine maleate Allergy Rash/Hives Verified 11/11/16 14:20 [From Compazine] Sulfa (Sulfonamide Allergy Rash/Hives Verified 11/11/16 14:20 Antibiotics) Tetanus Vaccines and Toxoid Allergy Rash/Hives Verified 11/11/16 14:20 [Tetanus Vaccines & Toxoid] trifluoperazine HCl Allergy Unknown Verified 11/11/16 14:20 [From Stelazine] Review of Systems ROS Statement: Those systems with pertinent positive or pertinent negative responses have been documented in the HPI. ROS Other: All systems not noted in ROS Statement are negative. Past Medical History Past Medical History: Asthma, Coronary Artery Disease (CAD), Diabetes Mellitus, Hyperlipidemia, Hypertension, Musculoskeletal Disorder, Osteoarthritis (OA), Thyroid Disorder Additional Past Medical History / Comment(s): Morbid obesity History of Any Multi-Drug Resistant Organisms: None Reported Past Surgical History: Bariatric Surgery, Hernia Repair, Orthopedic Surgery Additional Past Surgical History / Comment(s): Total Right knee replacement, 3 hernia repairs. hip repair Past Anesthesia/Blood Transfusion Reactions: No Reported Reaction Past Psychological History: Anxiety, Bipolar, Depression Smoking Status: Never smoker Past Alcohol Use History: None Reported Past Drug Use History: None Reported - Past Family History Mother Family Medical History: Cancer Additional Family Medical History / Comment(s): lung cancer Father Additional Family Medical History / Comment(s): "my dad from a blood clot" patient is unsure where the blood clot was. Brother(s) Family Medical History: Diabetes Mellitus Sister(s) Additional Family Medical History / Comment(s): "her heart races too fast" General Exam Limitations: no limitations General appearance: alert, in no apparent distress Head exam: Present: atraumatic, normocephalic Eye exam: Present: normal appearance, PERRL, EOMI. Absent: scleral icterus, conjunctival injection, nystagmus, periorbital swelling Pupils: Present: normal accommodation ENT exam: Present: normal exam, normal oropharynx, mucous membranes moist. Absent: mucous membranes dry Neck exam: Present: normal inspection, full ROM. Absent: tenderness, meningismus, lymphadenopathy Respiratory exam: Present: normal lung sounds bilaterally. Absent: respiratory distress, wheezes, rales, rhonchi, stridor Cardiovascular Exam: Present: regular rate, normal rhythm, normal heart sounds. Absent: irregular rhythm, systolic murmur, diastolic murmur, rubs, gallop, clicks GI/Abdominal exam: Present: soft, tenderness, normal bowel sounds. Absent: distended, guarding, rebound, rigid, diminished bowel sounds, hyperactive bowel sounds, hypoactive bowel sounds, organomegaly, mass, hernia Back exam: Present: normal inspection. Absent: CVA tenderness (R), CVA tenderness (L) Neurological exam: Present: alert, oriented X3, CN II-XII intact Psychiatric exam: Present: normal affect, normal mood Skin exam: Present: warm, dry, intact Course Vital Signs 11/11/16 11/11/16 14:07 15:02 Temperature 98.8 F Pulse Rate 67 88 Respiratory 18 18 Rate Blood Pressure 112/65 122/69 O2 Sat by Pulse 95 98 Oximetry Medical Decision Making - Medical Decision Making 6-year-old female patient presents to emergency department for complaints of increased urinary incontinence. Patient does wear brief period urinalysis reveals increased white blood cells as well as increased leukocyte esterase. Urine was sent for culture. Vital signs are stable. Patient will be treated for urinary tract infection outpatient with Cipro. Instructed patient to increase fluids, and have a repeat urinalysis done once she is done with the antibiotic. Patient instructed to return for any fevers, back pain, nausea, vomiting, or increased abdominal pain. Patient instructed to follow up with primary care physician in one to 2 days. Patient verbalizes understanding and agrees to this plan. - Lab Data Lab Results 11/11/16 Range/Units 14:49 Urine Color Light Yellow Urine Appearance Clear (Clear) Urine pH 6.0 (5.0-8.0) Ur Specific Webber 1.007 (1.001-1.035) Urine Protein Negative (Negative) Urine Glucose (UA) Negative (Negative) Urine Ketones Negative (Negative) Urine Blood Negative (Negative) Urine Nitrate Negative (Negative) Urine Bilirubin Negative (Negative) Urine Urobilinogen <2.0 (<2.0) mg/dL Ur Leukocyte Esterase Small H (Negative) Urine RBC 1 (0-5) /hpf Urine WBC 9 H (0-5) /hpf Ur Squamous Epith Cells <1 (0-4) /hpf Hyaline Casts 1 (0-2) /lpf Disposition Clinical Impression: Urinary tract infection Disposition: HOME SELF-CARE Condition: Stable Instructions: Urinary Tract Infection in Women (ED) Additional Instructions: Crease fluids. Complete antibiotic prescription and full. Return for any worsening, new, or concerning symptoms. Prescriptions: Ciprofloxacin HCl [Cipro] 500 mg PO Q12HR #10 tablet Referrals: Dm Bhakta DO [Primary Care Provider] - 1-2 days Time of Disposition: 15:22
[2016-11-11 15:15] LABS: Appearance,Urine Clear (Clear); Bilirubin,Urine Negative (Negative); Glucose,Urine (UA) Negative (Negative); Ketones,Urine Negative (Negative); Leukocyte Esterase,Urine Small (Negative); Nitrite,Urine Negative (Negative); Particle Count 2247; Protein,Urine Negative (Negative); RBC,Urine 1 /hpf (0-5); Specific Gravity,Urine 1.007 (1.001-1.035); Squamous Epithelial Cell,Urine <1 /hpf (0-4); UA Billing (MACRO vs. MICRO) MICRO; Urobilinogen,Urine <2.0 mg/dL (<2.0); WBC,Urine 9 /hpf (0-5)
[2016-11-11 15:34] VITALS: BP 120/72; PULSE 65; RESP 16; TEMP 98.4
== END 2016-11-11 15:47 | disposition home or self-care (01) ==
LOC: EC 14:03
DX: N39.0 Urinary tract infection, site not specified (principal); J45.909 Unspecified asthma, uncomplicated; I25.10 Atherosclerotic heart disease of native coronary artery without angina pectoris; E11.9 Type 2 diabetes mellitus without complications; E78.5 Hyperlipidemia, unspecified; I10 Essential (primary) hypertension; M19.90 Unspecified osteoarthritis, unspecified site; E07.9 Disorder of thyroid, unspecified; E66.01 Morbid (severe) obesity due to excess calories; Z68.44 Body mass index [BMI] 60.0-69.9, adult; F31.9 Bipolar disorder, unspecified; F41.9 Anxiety disorder, unspecified; Z79.899 Other long term (current) drug therapy; Z88.0 Allergy status to penicillin; Z88.2 Allergy status to sulfonamides; Z91.041 Radiographic dye allergy status; Z88.7 Allergy status to serum and vaccine; Z88.8 Allergy status to other drugs, medicaments and biological substances
CPT/HCPCS: 81001; 87077; 87086; 87186; 99283

== ENCOUNTER 2016-11-17 16:09 | Observation (INO) | payer MEDICARE, OTHER ==
[2016-11-17] MEDS ORDERED: NITROGLYCERIN SL TABS 0.4 MG TAB SUBLINGUAL STA (16:22)
[2016-11-17] MEDS ORDERED: ASPIRIN 81 MG CHEW PO STA (16:22)
[2016-11-17] MEDS ORDERED: LORazepam 2 MG/ML SYRINGE IV STA (16:24)
[2016-11-17] MEDS ORDERED: ONDANSETRON 4 MG/2 ML VIAL IVP STA (16:24)
--- NOTE | 2016-11-17 16:25 | ED ---
General Adult HPI - General Stated complaint: CHEST PAIN Time Seen by Provider: 11/17/16 16:12 Source: RN notes reviewed, old records reviewed - History of Present Illness Initial comments: This is a 56-year-old female today for the evaluation of chest pain. Patient complaining of anterior chest pain. Left arm. History of chest pain history of similar symptoms. Patient has no recent travel she no sick contacts no fevers no cough or congestion. Patient still complaining of severe chest pain. Patient states pain began after she started eating tonight tonight. No improving or modifying factors for symptoms - Related Data Home Medications Medication Instructions Recorded Confirmed Gabapentin [Neurontin] 600 mg PO TID@0900,1700,2100 07/09/15 11/17/16 Carvedilol 25 mg PO BID@0900,1700 10/10/15 11/17/16 Pravastatin Sodium 80 mg PO HS@2100 10/10/15 11/17/16 Levothyroxine Sodium [Synthroid] 137 mcg PO DAILY@0630 11/05/15 11/17/16 DULoxetine HCL [Cymbalta] 60 mg PO DAILY@0900 05/05/16 11/17/16 rOPINIRole HCL [Requip] 3 mg PO HS@209905/05/16 11/17/16 LORazepam [Ativan] 1 mg PO TID@0900,1700,2100 08/15/16 11/17/16 Furosemide [Lasix] 40 mg PO DAILY@0900 10/25/16 11/17/16 Lurasidone [Latuda] 80 mg PO HS@209910/25/16 11/17/16 Multivitamins, Thera [Multivitamin] 1 tab PO DAILY@0900 10/25/16 11/17/16 Nystatin [Nystop] 1 applic TOPICAL BID@0900,1700 10/25/16 11/17/16 Topiramate [Topamax] 100 mg PO BID@0900,2100 10/25/16 11/17/16 hydrOXYzine PAMOATE [Vistaril] 100 mg PO HS@2100 10/30/16 11/17/16 rOPINIRole HCL [Requip] 2 mg PO DAILY@1300 10/30/16 11/17/16 Ibuprofen [Motrin] 600 mg PO Q6H PRN 11/03/16 11/17/16 traZODone HCL [Desyrel] 200 mg PO HS 11/03/16 11/17/16 Oxybutynin Chloride [Ditropan XL] 10 mg PO DAILY 11/11/16 11/17/16 Allergies Allergy/AdvReac Type Severity Reaction Status Date / Time buspirone [From BuSpar] Allergy Unknown Verified 11/17/16 16:49 haloperidol [From Haldol] Allergy Swelling Verified 11/17/16 16:49 haloperidol lactate Allergy Swelling Verified 11/17/16 16:49 [From Haldol] iodine Allergy Swelling Verified 11/17/16 16:49 Penicillins Allergy Swelling Verified 11/17/16 16:49 prochlorperazine edisylate Allergy Rash/Hives Verified 11/17/16 16:49 [From Compazine] prochlorperazine maleate Allergy Rash/Hives Verified 11/17/16 16:49 [From Compazine] Sulfa (Sulfonamide Allergy Rash/Hives Verified 11/17/16 16:49 Antibiotics) Tetanus Vaccines and Toxoid Allergy Rash/Hives Verified 11/17/16 16:49 [Tetanus Vaccines & Toxoid] trifluoperazine HCl Allergy Unknown Verified 11/17/16 16:49 [From Stelazine] Review of Systems ROS Statement: Those systems with pertinent positive or pertinent negative responses have been documented in the HPI. ROS Other: All systems not noted in ROS Statement are negative. Past Medical History Past Medical History: Asthma, Coronary Artery Disease (CAD), Diabetes Mellitus, Hyperlipidemia, Hypertension, Musculoskeletal Disorder, Osteoarthritis (OA), Thyroid Disorder Additional Past Medical History / Comment(s): Morbid obesity History of Any Multi-Drug Resistant Organisms: None Reported Past Surgical History: Bariatric Surgery, Hernia Repair, Orthopedic Surgery Additional Past Surgical History / Comment(s): Total Right knee replacement, 3 hernia repairs. hip repair Past Anesthesia/Blood Transfusion Reactions: No Reported Reaction Past Psychological History: Anxiety, Bipolar, Depression Smoking Status: Never smoker Past Alcohol Use History: None Reported Past Drug Use History: None Reported - Past Family History Mother Family Medical History: Cancer Additional Family Medical History / Comment(s): lung cancer Father Additional Family Medical History / Comment(s): "my dad from a blood clot" patient is unsure where the blood clot was. Brother(s) Family Medical History: Diabetes Mellitus Sister(s) Additional Family Medical History / Comment(s): "her heart races too fast" General Exam General appearance: alert, in no apparent distress, obese Head exam: Present: atraumatic, normocephalic, normal inspection Eye exam: Present: normal appearance, PERRL, EOMI. Absent: scleral icterus, conjunctival injection, periorbital swelling ENT exam: Present: normal exam, mucous membranes moist Neck exam: Present: normal inspection. Absent: tenderness, meningismus, lymphadenopathy Respiratory exam: Present: normal lung sounds bilaterally. Absent: respiratory distress, wheezes, rales, rhonchi, stridor Cardiovascular Exam: Present: regular rate, normal rhythm, normal heart sounds. Absent: systolic murmur, diastolic murmur, rubs, gallop, clicks GI/Abdominal exam: Present: soft, normal bowel sounds. Absent: distended, tenderness, guarding, rebound, rigid Extremities exam: Present: normal inspection, full ROM, normal capillary refill. Absent: tenderness, pedal edema, joint swelling, calf tenderness Back exam: Present: normal inspection Neurological exam: Present: alert, oriented X3, CN II-XII intact Psychiatric exam: Present: normal affect, normal mood Skin exam: Present: warm, dry, intact, normal color. Absent: rash Course Vital Signs 11/17/16 16:30 Temperature 98.2 F Pulse Rate 58 L Respiratory 18 Rate Blood Pressure 141/66 O2 Sat by Pulse 100 Oximetry - Reevaluation(s) Reevaluation #1: 11/17/16 17:59 Patient states she is still having chest pain at this time EKG Findings - EKG Comments: EKG Findings:: EKG shows sinus pericardia rate 32, SC 1:30, QRS 84, QTC 392 Medical Decision Making - Medical Decision Making 56. ER for evaluation of chest pain. Chest pain started after eating tonight. Anterior chest with heaviness, radiation to her arm shortness of breath. Patient's EKG and troponin are negative. Patient will be admitted for cardiac observation Ceil troponins Critical Care Time Critical Care Time: Yes Total Critical Care Time: 31 Disposition Clinical Impression: Chest pain Disposition: ADMITTED IP TO THIS HOSP Condition: Undetermined Referrals: Dm Bhakta DO [Primary Care Provider] - 1-2 days
[2016-11-17] MEDS ORDERED: NITROGLYCERIN SL TABS 0.4 MG TAB SUBLINGUAL PRN (17:57)
[2016-11-17] MEDS ORDERED: HEPARIN SODIUM,PORCINE 5,000 UNIT/ML 1 ML VIAL IV ONE (17:57)
[2016-11-17] MEDS ORDERED: HEPARIN SODIUM,PORCINE 5,000 UNIT/ML 1 ML VIAL IV PRN (17:57)
[2016-11-17 17:59] LABS: Partial Thromboplastin Time 22.8 sec (22.0-30.0)
[2016-11-17] MEDS ORDERED: HEPARIN SODIUM,PORCINE/D5W PMX 25,000 UNIT in DEXTROSE/WATER 1 500ML.BAG IV SCH (18:00)
--- NOTE | 2016-11-17 18:01 | XR ---
EXAMINATION TYPE: XR chest 2V DATE OF EXAM: 11/17/2016 5:34 PM COMPARISON: Prior chest x-ray 12 October 2016 HISTORY: Chest pain TECHNIQUE: Frontal and lateral views of the chest are obtained. FINDINGS: No interval change. Patient is rotated. Exam is limited by patient body habitus. Heart may be enlarged. There are overlying cardiac leads. IMPRESSION: Cardiomegaly may be due to patient rotation. Follow-up as indicated
[2016-11-17 18:03] LABS: Basophils % (A) 1 %; CH 28.1; CHCM 30.7; Eosinophils # (A) 0.1 k/uL (0-0.7); Eosinophils % (A) 2 %; HCT 36.2 % (34.0-46.0); HDW 2.72; HGB 11.5 gm/dL (11.4-16.0); Hypochromasia Moderate; Luc # (Auto) 0.27; Luc % (Auto) 4; Lymphocytes # (A) 1.3 k/uL (1.0-4.8); Lymphocytes % (A) 20 %; MCH 29.2 pg (25.0-35.0); MCHC 31.7 g/dL (31.0-37.0); Mean Platelet Volume 7.3; Monocytes # (A) 0.4 k/uL (0-1.0); Monocytes % (A) 7 %; Neutrophils # (A) 4.4 k/uL (1.3-7.7); Neutrophils % (A) 67 %; RBC 3.93 m/uL (3.80-5.40); RDW 14.4 % (11.5-15.5); WBC 6.6 k/uL (3.8-10.6); WBC (Perox) 6.43
[2016-11-17 18:06] LABS: Creatine Kinase 32 U/L (30-135)
[2016-11-17 18:17] LABS: Creatine Kinase MB 0.4 ng/mL (0.0-2.4); Troponin I <0.012 ng/mL (0.000-0.034)
[2016-11-17 18:28] LABS: ALT 23 U/L (9-52); AST 24 U/L (14-36); Alkaline Phosphatase 84 U/L (38-126); Anion Gap 12 mmol/L; Blood Urea Nitrogen 26 mg/dL (7-17); Calcium 9.1 mg/dL (8.4-10.2); Carbon Dioxide 25 mmol/L (22-30); Chloride 107 mmol/L (98-107); Glucose 98 mg/dL (74-99); Non-African American GFR(MDRD) 55 (>60 ml/min/1.73 sqM); Potassium 4.6 mmol/L (3.5-5.1); Sodium 144 mmol/L (137-145); Total Bilirubin 0.3 mg/dL (0.2-1.3); Total Protein 6.3 g/dL (6.3-8.2)
[2016-11-17 19:41] VITALS: TEMP 97.7
[2016-11-17 20:30] LABS: Glucose,Whole Blood 100 mg/dL (75-99)
[2016-11-17] MEDS ORDERED: LURASIDONE 80 MG TAB PO SCH (21:00)
[2016-11-17] MEDS ORDERED: traZODone HCL 100 MG TAB PO SCH (21:00)
[2016-11-17] MEDS ORDERED: PRAVASTATIN SODIUM 80 MG TAB PO SCH (21:00)
[2016-11-17] MEDS ORDERED: hydrOXYzine PAMOATE 25 MG CAP PO SCH (21:00)
[2016-11-17 21:16] VITALS: BMI 59.4
[2016-11-17] MEDS: LORazepam 1 MG TAB PO SCH (22:29)
[2016-11-17] MEDS: IBUPROFEN 600 MG TAB PO PRN (22:31)
[2016-11-17] MEDS: GABAPENTIN 300 MG CAP PO SCH (22:32)
[2016-11-17] MEDS: TOPIRAMATE 100 MG TAB PO SCH (22:34)
[2016-11-18 01:12] LABS: Creatine Kinase 24 U/L (30-135)
[2016-11-18 01:25] LABS: Creatine Kinase MB <0.2 ng/mL (0.0-2.4); Troponin I <0.012 ng/mL (0.000-0.034)
[2016-11-18] MEDS: IBUPROFEN 600 MG TAB PO PRN ×2 (01:56→08:05)
[2016-11-18] MEDS: LORazepam 1 MG TAB PO SCH ×2 (01:56→09:44)
[2016-11-18 06:30] LABS: Anion Gap 11 mmol/L; Blood Urea Nitrogen 26 mg/dL (7-17); Calcium 8.9 mg/dL (8.4-10.2); Carbon Dioxide 23 mmol/L (22-30); Chloride 110 mmol/L (98-107); Cholesterol 162 mg/dL (<200); Glucose 98 mg/dL (74-99); HDL Cholesterol 70 mg/dL (40-60); Non-African American GFR(MDRD) 54 (>60 ml/min/1.73 sqM); Potassium 4.4 mmol/L (3.5-5.1); Sodium 144 mmol/L (137-145); Triglycerides 99 mg/dL (<150)
[2016-11-18] MEDS ORDERED: LEVOTHYROXINE 137 MCG TAB PO SCH (06:30)
[2016-11-18 06:38] LABS: Creatine Kinase 25 U/L (30-135)
[2016-11-18 06:43] LABS: Aty Lym Flag Slight; CH 28.9; CHCM 31.4; HCT 35.7 % (34.0-46.0); HDW 2.78; HGB 11.1 gm/dL (11.4-16.0); Hypochromasia Slight; MCH 28.9 pg (25.0-35.0); MCHC 31.2 g/dL (31.0-37.0); MCV 92.6 fL (80.0-100.0); Mean Platelet Volume 8.1; RBC 3.85 m/uL (3.80-5.40); RDW 14.6 % (11.5-15.5); WBC 4.7 k/uL (3.8-10.6); WBC (Perox) 4.89
[2016-11-18 06:50] LABS: Creatine Kinase MB <0.2 ng/mL (0.0-2.4); Troponin I <0.012 ng/mL (0.000-0.034)
[2016-11-18 06:55] LABS: Glucose,Whole Blood 99 mg/dL (75-99)
[2016-11-18 07:30] LABS: Add Differential Manual Differential
[2016-11-18 07:36] LABS: Manual Review Performed; Nucleated Red Blood Cells 0 /100 WBC (0-0); Total Cells Counted 100
[2016-11-18 08:24] VITALS: BP 109/59; PULSE 59; RESP 16
[2016-11-18] MEDS ORDERED: MULTIVITAMINS, THERA 1 EACH TAB PO SCH (09:00)
[2016-11-18] MEDS ORDERED: DULoxetine HCL 60 MG CAPSULE.DR PO SCH (09:00)
[2016-11-18] MEDS ORDERED: FUROSEMIDE 40 MG TAB PO SCH (09:00)
[2016-11-18] MEDS ORDERED: NYSTATIN 100,000 UNIT/GM POWD 15 GM TOPICAL SCH (09:00)
[2016-11-18] MEDS ORDERED: CARVEDILOL 12.5 MG TAB PO SCH (09:00)
[2016-11-18] MEDS ORDERED: OXYBUTYNIN 10 MG TAB.ER.24 PO SCH (09:00)
[2016-11-18] MEDS ORDERED: ASPIRIN 325 MG TAB PO SCH (09:00)
--- NOTE | 2016-11-18 09:19 | P.CRDCN ---
History of Present Illness Consult date: 11/18/16 Chief complaint: chest discomfort History of present illness: This is a pleasant 56-year-old female patient with a past medical history significant for coronary artery disease, diabetes, hypertension, dyslipidemia, and depression, presented to the hospital complaining of chest discomfort. The patient was at home and after she ate here meal she started experiencing discomfort in the mid of the chest as a pressure was some radiation to the left arm with associated shortness of breath. the EKG came in to be unremarkable. She underwent 3 sets of cardiac enzymes came in to be unremarkable as well. The patient stated that she had a heart catheterization was done at [facility] in 2011 and showed coronary artery disease. I will obtain a copy of the heart catheterization.I will DC the heparin. Further recommendation to follow that. Past Medical History Past Medical History: Asthma, Coronary Artery Disease (CAD), Diabetes Mellitus, Hyperlipidemia, Hypertension, Musculoskeletal Disorder, Osteoarthritis (OA), Thyroid Disorder Additional Past Medical History / Comment(s): Morbid obesity History of Any Multi-Drug Resistant Organisms: None Reported Past Surgical History: Bariatric Surgery, Hernia Repair, Orthopedic Surgery Additional Past Surgical History / Comment(s): Total Right knee replacement, 3 hernia repairs. Left hip repair Past Anesthesia/Blood Transfusion Reactions: No Reported Reaction Past Psychological History: Anxiety, Bipolar, Depression Smoking Status: Never smoker Past Alcohol Use History: None Reported Past Drug Use History: None Reported - Past Family History Mother Family Medical History: Cancer Additional Family Medical History / Comment(s): lung cancer Father Additional Family Medical History / Comment(s): "my dad from a blood clot" patient is unsure where the blood clot was. Brother(s) Family Medical History: Diabetes Mellitus Sister(s) Additional Family Medical History / Comment(s): "her heart races too fast" Medications and Allergies Home Medications Medication Instructions Recorded Confirmed Type Gabapentin [Neurontin] 600 mg PO TID@0900,1700,2100 07/09/15 11/17/16 History Carvedilol 25 mg PO BID@0900,1700 10/10/15 11/17/16 History Pravastatin Sodium 80 mg PO HS@2100 10/10/15 11/17/16 History Levothyroxine Sodium [Synthroid] 137 mcg PO DAILY@0630 11/05/15 11/17/16 History DULoxetine HCL [Cymbalta] 60 mg PO DAILY@0900 05/05/16 11/17/16 History rOPINIRole HCL [Requip] 3 mg PO HS@209905/05/16 11/17/16 History LORazepam [Ativan] 1 mg PO TID@0900,1700,2100 08/15/16 11/17/16 History Furosemide [Lasix] 40 mg PO DAILY@0900 10/25/16 11/17/16 History Lurasidone [Latuda] 80 mg PO HS@209910/25/16 11/17/16 History Multivitamins, Thera [Multivitamin] 1 tab PO DAILY@0900 10/25/16 11/17/16 History Nystatin [Nystop] 1 applic TOPICAL BID@0900,1700 10/25/16 11/17/16 History Topiramate [Topamax] 100 mg PO BID@0900,2100 10/25/16 11/17/16 History hydrOXYzine PAMOATE [Vistaril] 100 mg PO HS@209910/30/16 11/17/16 History rOPINIRole HCL [Requip] 2 mg PO DAILY@1300 10/30/16 11/17/16 History Ibuprofen [Motrin] 600 mg PO Q6H PRN 11/03/16 11/17/16 History traZODone HCL [Desyrel] 200 mg PO HS 11/03/16 11/17/16 History Oxybutynin Chloride [Ditropan XL] 10 mg PO DAILY 11/11/16 11/17/16 History Allergies Allergy/AdvReac Type Severity Reaction Status Date / Time buspirone [From BuSpar] Allergy Unknown Verified 11/17/16 16:49 haloperidol [From Haldol] Allergy Swelling Verified 11/17/16 16:49 haloperidol lactate Allergy Swelling Verified 11/17/16 16:49 [From Haldol] iodine Allergy Swelling Verified 11/17/16 16:49 Penicillins Allergy Swelling Verified 11/17/16 16:49 prochlorperazine edisylate Allergy Rash/Hives Verified 11/17/16 16:49 [From Compazine] prochlorperazine maleate Allergy Rash/Hives Verified 11/17/16 16:49 [From Compazine] Sulfa (Sulfonamide Allergy Rash/Hives Verified 11/17/16 16:49 Antibiotics) Tetanus Vaccines and Toxoid Allergy Rash/Hives Verified 11/17/16 16:49 [Tetanus Vaccines & Toxoid] trifluoperazine HCl Allergy Unknown Verified 11/17/16 16:49 [From Stelazine] Physical Exam Vitals: Vital Signs Temp Pulse Resp BP Pulse Ox 11/18/16 08:00 97.7 F 59 L 16 109/59 98 11/18/16 04:00 69 18 11/18/16 03:06 68 18 11/17/16 22:56 68 18 107/57 95 11/17/16 20:00 90 18 11/17/16 19:40 97.7 F 63 18 121/66 93 L Intake and Output 11/17/16 11/18/16 11/18/16 22:59 06:59 14:59 Intake Total 178.577 Balance 178.577 Intake: Intake, IV Titration 178.577 Amount Heparin Sodium,Porcine/ 178.577 D5w Pmx 25,000 unit In Dextrose/Water 1 500ml. bag @ 5.8 UNITS/KG/HR 19. 99 mls/hr IV .Q24H [facility] Rx #:[id number] Other: # Voids 1 Weight 162 kg - Constitutional General appearance: no acute distress - Respiratory Respiratory: bilateral: CTA - Cardiovascular Rhythm: regular Heart sounds: normal: S1, S2 Results 11/18/16 05:21 11/18/16 05:21 Cardiac Enzymes 11/18/16 11/18/16 Range/Units 00:30 05:21 CK-MB (CK-2) <0.2 <0.2 (0.0-2.4) ng/mL Troponin I <0.012 <0.012 (0.000-0.034) ng/mL Coagulation 11/18/16 Range/Units 00:30 APTT 34.2 H (22.0-30.0) sec Lipids 11/18/16 Range/Units 05:21 Triglycerides 99 (<150) mg/dL Cholesterol 162 (<200) mg/dL HDL Cholesterol 70 H (40-60) mg/dL CBC 11/18/16 Range/Units 05:21 WBC 4.7 (3.8-10.6) k/uL RBC 3.85 (3.80-5.40) m/uL Hgb 11.1 L (11.4-16.0) gm/dL Hct 35.7 (34.0-46.0) % Plt Count 217 (150-450) k/uL Comprehensive Metabolic Panel 11/18/16 Range/Units 05:21 Sodium 144 (137-145) mmol/L Potassium 4.4 (3.5-5.1) mmol/L Chloride 110 H (98-107) mmol/L Carbon Dioxide 23 (22-30) mmol/L BUN 26 H (7-17) mg/dL Creatinine 1.06 H (0.52-1.04) mg/dL Glucose 98 (74-99) mg/dL Calcium 8.9 (8.4-10.2) mg/dL Current Medications Generic Name Dose Route Start Last Admin Trade Name Freq PRN Reason Stop Dose Admin Aspirin 325 mg 11/18/16 09:00 Aspirin PO DAILY [facility] Carvedilol 25 mg 11/18/16 09:00 Coreg PO BID@0900,1700 [facility] Duloxetine HCl 60 mg 11/18/16 09:00 Cymbalta PO DAILY@0900 [facility] Furosemide 40 mg 11/18/16 09:00 Lasix PO DAILY@0900 [facility] Gabapentin 600 mg 11/17/16 21:00 11/17/16 22:32 Neurontin PO 600 mg TID@0900,1700,2100 [facility] Administration Heparin Sodium (Porcine) 0 unit 11/17/16 17:57 11/18/16 03:35 Heparin IV 4,000 unit Q6HR PRN Administration Low PTT Protocol Hydroxyzine Pamoate 100 mg 11/17/16 21:00 11/17/16 22:38 Vistaril PO 100 mg HS@2100 [facility] Administration Heparin Sodium/Dextrose 25,000 500 mls @ 19.99 mls/hr 11/17/16 18:00 03:36 unit/ IV Solution IV 8.44 units/kg/hr .Q24H [facility] 29.1 mls/hr Protocol Titration 5.8 UNITS/KG/HR Ibuprofen 600 mg 11/17/16 20:22 11/18/16 08:05 Motrin PO 600 mg Q6H PRN Administration Pain Levothyroxine Sodium 137 mcg 11/18/16 06:30 11/18/16 06:34 Synthroid PO Not Given DAILY@0630 [facility] Lorazepam 1 mg 11/17/16 20:00 11/18/16 01:56 Ativan PO 1 mg Q8HR [facility] Administration Lurasidone HCl 80 mg 11/17/16 21:00 11/17/16 22:33 Latuda PO 80 mg HS@2100 [facility] Administration Multivitamins 1 each 11/18/16 09:00 Theragran PO DAILY@0900 [facility] Nitroglycerin 0.4 mg 11/17/16 17:57 Nitrostat SUBLINGUAL Q5M PRN Chest Pain Nystatin 1 applic 11/18/16 09:00 Mycostatin Powder TOPICAL BID@0900,1700 [facility] Oxybutynin Chloride 10 mg 11/18/16 09:00 Ditropan Xl PO DAILY [facility] Pravastatin Sodium 80 mg 11/17/16 21:00 11/17/16 22:32 Pravachol PO 80 mg HS@2100 [facility] Administration Ropinirole HCl 3 mg 11/17/16 21:00 11/17/16 22:32 Requip PO 3 mg HS@2100 [facility] Administration Ropinirole HCl 2 mg 11/18/16 13:00 Requip PO DAILY@1300 [facility] Topiramate 100 mg 11/17/16 21:00 11/17/16 22:34 Topamax PO 100 mg BID@0900,2100 [facility] Administration Trazodone HCl 200 mg 11/17/16 21:00 11/17/16 22:33 Desyrel PO 200 mg HS [facility] Administration Intake and Output 11/17/16 11/18/16 11/18/16 22:59 06:59 14:59 Intake Total 178.577 Balance 178.577 Intake: Intake, IV Titration 178.577 Amount Heparin Sodium,Porcine/ 178.577 D5w Pmx 25,000 unit In Dextrose/Water 1 500ml. bag @ 5.8 UNITS/KG/HR 19. 99 mls/hr IV .Q24H [facility] Rx #:[id number] Other: # Voids 1 Weight 162 kg 11/18/16 05:21 11/18/16 05:21 Assessment and Plan Plan: assessment #1 chest discomfort #2 known CAD #3 diabetes #4 hypertension #5 dyslipidemia Plan #1 the patient was ruled out for acute coronary event #2 obtain a copy of the previous heart catheterization #3 further recommendation to follow
[2016-11-18] MEDS: GABAPENTIN 300 MG CAP PO SCH (09:44)
[2016-11-18] MEDS: TOPIRAMATE 100 MG TAB PO SCH (09:44)
[2016-11-18 12:03] LABS: Glucose,Whole Blood 99 mg/dL (75-99)
--- NOTE | 2016-11-18 15:01 | HP ---
DATE OF ADMISSION: DATE OF SERVICE: 11/17/2016 CHIEF COMPLAINT: Chest pain. HISTORY OF PRESENT ILLNESS: This 56-year-old woman with past medical history of multiple medical problems including asthma, CAD, history of diabetes mellitus, hypertension, hyperlipidemia, history of degenerative joint disease, history of hypothyroidism, history of bariatric surgery, history of anxiety, bipolar, depression, being followed by Dr. Bhakta in the outpatient setting, had a cardiac catheterization in 2011 according to her, which showed only 15% blockage. The results are not available at this time. Currently the patient is complaining of chest pain, which was felt mostly in the anterior part of the chest radiating to the left arm and the patient had no obvious associated sweating, palpitations, no shortness of breath, no history of radiation elsewhere. The pain was moderate to severe in intensity. Patient came to [facility] and admitted for evaluation and treatment. Initial evaluation, troponins were negative. At this time, there is no history of fever, rigors. No history of headache, loss of consciousness, seizures. PAST MEDICAL HISTORY: History of asthma, coronary artery disease, diabetes mellitus, hypertension, hyperlipidemia, history of bariatric surgery, hernia repair, anxiety, bipolar depression. Medications prior to admission include home medications: 1. Trazodone 200 mg q.h.s. 2. Requip 3 mg daily. 4. Vistaril 100 mg p.o. q.h.s. 5. Topamax 100 mg p.o. b.i.d. 6. Pravastatin 80 mg q.h.s. 7. Ditropan XL 10 mg p.o. daily. 9. Multivitamin 1 p.o. daily. 10. Latuda 80 mg p.o. q.h.s. 11. Synthroid 137 mcg p.o. daily. 12. Ativan 1 mg p.o. t.i.d. 13. Motrin 600 mg p.o. q.6 p.r.n. 14. Neurontin 600 mg p.o. t.i.d. 15. Lasix 40 mg daily. 16. Cymbalta 60 mg p.o. daily. 17. Coreg 25 mg p.o. daily. ALLERGIES: BUSPIRONE, HALDOL, IODINE, PENICILLIN, SULFA, TETANUS, STELAZINE. FAMILY HISTORY: History of lung cancer in the family. SOCIAL HISTORY: No history of smoking, no history of alcohol intake. REVIEW OF SYSTEMS: ENT: No diminished vision, no diminished hearing. CARDIOVASCULAR: As mentioned earlier. RESPIRATORY: As mentioned earlier. GI: No nausea. : No dysuria. NERVOUS SYSTEM: No numbness or weakness. ALLERGY/IMMUNOLOGY: No asthma or hayfever. MUSCULOSKELETAL: As mentioned earlier. HEMATOLOGY/ONCOLOGY: No history of anemia. ENDOCRINE: As mentioned earlier. CONSTITUTIONAL: As mentioned earlier. DERMATOLOGY: Negative. RHEUMATOLOGY: Negative. PSYCHIATRY: As mentioned earlier. PHYSICAL EXAMINATION: Patient is alert and oriented x3. Pulse is 58, blood pressure 134/60, respirations 18, temperature 98.2, pulse ox 100% on 2-L. HEENT: Conjunctivae normal. Oral mucosa moist. NECK: No jugular venous distention. No carotid bruit. No lymph node enlargement. CARDIOVASCULAR: S1 and S2, muffled. RESPIRATORY: Breath sounds diminished at the bases. A few scattered rhonchi, no crackles. ABDOMEN: Soft, nontender. No mass palpable. Obese. No hepatosplenomegaly. LEGS: No edema, no swelling. NERVOUS SYSTEM: Higher function as mentioned. Moves all four limbs. No focal motor or sensory deficits. LYMPHATIC: No lymphadenopathy in the neck, axillae or groin. SKIN: No ulcer, rash or bleeding. LABS: CBC within normal limits. BUN is 26. Otherwise, other labs are normal. ASSESSMENT: 1. Chest pain, possible unstable angina. 2. History of asthma. 3. History of coronary artery disease. 4. Diabetes mellitus type 2. 5. Hypertension. 6. Hyperlipidemia. 7. History of degenerative joint disease. 8. History of hypothyroidism. 9. Morbid obesity. 10. History of bariatric surgery. 11. History of degenerative joint disease. 12. History of anxiety, bipolar, depression, not otherwise specified. 13. FULL CODE. RECOMMENDATIONS AND DISCUSSION: In this 56-year-old woman who presented with multiple complex medical issues. Monitor the patient closely, continue with current medications and symptomatic treatment Unstable angina, IV heparin. Cardiology consultation. Repeat labs. Otherwise, I would also recommend to resume the home medications as well. Will follow the patient closely and patient may be asked to follow up with Dr. Bhakta closely after discharge. Patient understands and agrees. [place]
--- NOTE | 2016-11-19 08:55 | PN ---
DATE OF SERVICE: 11/18/2016 This 56-year-old woman was admitted with chest pain and possible asthma. She is being closely monitored. Dr. Lenz is evaluating the patient. The patient also had minimal chest pain last night. No fever. No cough. Cardiology is awaiting details of the previous cardiac catheterization report. On exam, alert and oriented x2. Pulse is 59, blood pressure 109/59, respirations 16, temperature 97.7, pulse ox 98% on room air. HEENT: Conjunctivae normal. NECK: No JVD. CARDIOVASCULAR: S1 and S2 muffled. LUNGS: Breath sounds diminished at the bases. No rhonchi, no crackles. ABDOMEN: Soft, nontender. No masses palpable. EXTREMITIES: Legs no edema. NURSE ORTHOPEDIC: No focal deficits. LABS: WBC 4.7, hemoglobin 11.1, creatinine 1.06. AST 70. ASSESSMENT: 1. Chest pain, possible unstable angina. 2. History of asthma. 3. History of coronary artery disease. 4. History of diabetes mellitus type 2. 5. Hypertension. 6. Hyperlipidemia. 7. History of degenerative joint disease. 8. Hypothyroidism. 9. Morbid obesity. 10. History of bariatric surgery. 11. History of degenerative joint disease. 12. History of anxiety, bipolar, depression, not otherwise specified. 13. FULL CODE. RECOMMENDATIONS AND DISCUSSION: In this 56-year-old woman who presented with multiple complex medical issues, we will patient the patient closely. Continue the current medications. Continue symptomatic treatment. Continue with unstable angina protocol. Closely follow with cardiology. Obtain old records. Continue the rest of the medications. Prognosis guarded. Further recommendations to follow.
--- NOTE | 2016-11-20 14:47 | DS ---
DATE OF ADMISSION: 11/17/2016 DATE OF DISCHARGE: 11/18/2016 FINAL DIAGNOSES: 1. Chest pain, possible unstable angina. 2. History of asthma. 3. History of coronary artery disease. 4. History of diabetes mellitus type 2. 5. Hypertension. 6. Hyperlipidemia. 7. History of degenerative joint disease. 8. Hypothyroidism. 9. Morbid obesity. 10. History of bariatric surgery. 11. History of degenerative joint disease. 12. Anxiety, bipolar depression, not otherwise specified. 13. FULL CODE. DISCHARGE DISPOSITION: The patient LEFT THE HOSPITAL AGAINST MEDICAL ADVICE. HISTORY OF PRESENT ILLNESS: This is a 56-year-old woman with multiple past medical issues was admitted with chest pain. The patient was being evaluated in the hospital. Dr. Lenz saw the patient but; however, the patient LEFT THE HOSPITAL AGAINST MEDICAL ADVICE. Prognosis extremely guarded. Please refer to the previous dictations, history and physical and consultation for further details.
== END 2016-11-18 15:18 | disposition left against medical advice (07) ==
LOC: EC 16:09 → 3OBS 18:20
PROVIDERS: ADMIT Hospitalist; ATTEND Hospitalist
DX: R07.9 Chest pain, unspecified (principal); I10 Essential (primary) hypertension; I25.10 Atherosclerotic heart disease of native coronary artery without angina pectoris; E78.5 Hyperlipidemia, unspecified; M19.90 Unspecified osteoarthritis, unspecified site; F31.9 Bipolar disorder, unspecified; E03.9 Hypothyroidism, unspecified; E66.01 Morbid (severe) obesity due to excess calories; F41.9 Anxiety disorder, unspecified; Z79.899 Other long term (current) drug therapy; Z98.84 Bariatric surgery status; Z88.0 Allergy status to penicillin; Z88.2 Allergy status to sulfonamides; Z88.7 Allergy status to serum and vaccine; Z88.8 Allergy status to other drugs, medicaments and biological substances
CPT/HCPCS: 96374 ×2; 96375 ×2; 96376 ×2; 99291 ×2; 36415; 93005; 83880; 80061; 80053; 80048; 82550 ×2; 82553 ×2; 83690; 83735; 84484 ×2; 85025 ×2; 85610; 85730 ×2; 71020; G0378 ×2; J2060; J1644 ×3; J2405

== ENCOUNTER 2016-11-19 18:16 | Emergency (ER) | payer MEDICARE, OTHER ==
[2016-11-19 22:01] LABS: Appearance,Urine Clear (Clear); Bacteria,Urine Rare /hpf; Bilirubin,Urine Negative (Negative); Glucose,Urine (UA) Negative (Negative); Ketones,Urine Negative (Negative); Leukocyte Esterase,Urine Trace (Negative); Nitrite,Urine Negative (Negative); Particle Count 930; Protein,Urine Negative (Negative); RBC,Urine <1 /hpf (0-5); Specific Gravity,Urine 1.012 (1.001-1.035); Squamous Epithelial Cell,Urine <1 /hpf (0-4); UA Billing (MACRO vs. MICRO) MICRO; Urobilinogen,Urine <2.0 mg/dL (<2.0); WBC,Urine 2 /hpf (0-5)
[2016-11-19] MEDS ORDERED: LORazepam 1 MG TAB PO STA (22:19)
[2016-11-19] MEDS ORDERED: IBUPROFEN 600 MG TAB PO STA (22:19)
[2016-11-20] MEDS ORDERED: hydrOXYzine PAMOATE 25 MG CAP PO STA (00:07)
[2016-11-20] MEDS ORDERED: CARVEDILOL 12.5 MG TAB PO STA (00:08)
[2016-11-20] MEDS ORDERED: PRAVASTATIN SODIUM 80 MG TAB PO STA (00:08)
[2016-11-20 00:18] LABS: Aty Lym Flag Slight; CH 28.4; CHCM 32.1; HCT 34.3 % (34.0-46.0); HDW 2.78; MCH 28.6 pg (25.0-35.0); MCHC 32.1 g/dL (31.0-37.0); MCV 89.1 fL (80.0-100.0); Mean Platelet Volume 7.3; RBC 3.85 m/uL (3.80-5.40); RDW 14.5 % (11.5-15.5); WBC (Perox) 5.42
[2016-11-20 00:25] LABS: Acetaminophen <10.0 ug/mL; Anion Gap 12 mmol/L; Blood Urea Nitrogen 32 mg/dL (7-17); Carbon Dioxide 21 mmol/L (22-30); Chloride 108 mmol/L (98-107); Glucose 131 mg/dL (74-99); Non-African American GFR(MDRD) 58 (>60 ml/min/1.73 sqM); Potassium 3.9 mmol/L (3.5-5.1); Salicylate <1.0 mg/dL; Sodium 141 mmol/L (137-145)
--- NOTE | 2016-11-20 00:30 | ED ---
Psych HPI - General Chief Complaint: Psychiatric Symptoms Stated Complaint: suicidal Time Seen by Provider: 11/19/16 18:46 Source: patient Mode of arrival: ambulatory - History of Present Illness Initial Comments: This 56-year-old white female presents with a complaint of some depression. She states that she is fairly depressed regarding medical problems. She has had some suicidal ideations been no actual plan. She has a long-standing history of depression but it is been worse over the past 2 days. She denies any actual attempts recently. She denies any other complaints or modifying factors. - Related Data Home Medications Medication Instructions Recorded Confirmed Gabapentin [Neurontin] 600 mg PO TID@0900,1700,209907/09/15 11/19/16 Carvedilol 25 mg PO BID@0900,209910/10/15 11/19/16 Pravastatin Sodium 80 mg PO HS@209910/10/15 11/19/16 Levothyroxine Sodium [Synthroid] 137 mcg PO DAILY@0630 11/05/15 11/19/16 DULoxetine HCL [Cymbalta] 60 mg PO DAILY@0900 05/05/16 11/19/16 rOPINIRole HCL [Requip] 3 mg PO HS@209905/05/16 11/19/16 LORazepam [Ativan] 1 mg PO TID@0900,1700,209908/15/16 11/19/16 Furosemide [Lasix] 40 mg PO DAILY@0900 10/25/16 11/19/16 Lurasidone [Latuda] 80 mg PO HS@209910/25/16 11/19/16 Multivitamins, Thera [Multivitamin] 1 tab PO DAILY@0910/25/16 11/19/16 Nystatin [Nystop] 1 applic TOPICAL BID@0900,1700 10/25/16 11/19/16 Topiramate [Topamax] 100 mg PO BID@0900,209910/25/16 11/19/16 hydrOXYzine PAMOATE [Vistaril] 100 mg PO HS@209910/30/16 11/19/16 rOPINIRole HCL [Requip] 2 mg PO DAILY@1300 10/30/16 11/19/16 Ibuprofen [Motrin] 600 mg PO Q6H PRN 11/03/16 11/19/16 traZODone HCL [Desyrel] 200 mg PO HS 11/03/16 11/19/16 Oxybutynin Chloride [Ditropan XL] 10 mg PO DAILY@0900 11/11/16 11/19/16 Fluticasone Nasal [place] [Flonase 1 spray EA NOSTRIL BID@0900,2100 11/19/1611/19 Nasal [place]] Allergies Allergy/AdvReac Type Severity Reaction Status Date / Time buspirone [From BuSpar] Allergy Unknown Verified 11/19/16 18:55 haloperidol [From Haldol] Allergy Swelling Verified 11/19/16 18:55 haloperidol lactate Allergy Swelling Verified 11/19/16 18:55 [From Haldol] iodine Allergy Swelling Verified 11/19/16 18:55 Penicillins Allergy Swelling Verified 11/19/16 18:55 prochlorperazine edisylate Allergy Rash/Hives Verified 11/19/16 18:55 [From Compazine] prochlorperazine maleate Allergy Rash/Hives Verified 11/19/16 18:55 [From Compazine] Sulfa (Sulfonamide Allergy Rash/Hives Verified 11/19/16 18:55 Antibiotics) Tetanus Vaccines and Toxoid Allergy Rash/Hives Verified 11/19/16 18:55 [Tetanus Vaccines & Toxoid] trifluoperazine HCl Allergy Unknown Verified 11/19/16 18:55 [From Stelazine] Review of Systems ROS Statement: Those systems with pertinent positive or pertinent negative responses have been documented in the HPI. ROS Other: All systems not noted in ROS Statement are negative. Past Medical History Past Medical History: Asthma, Coronary Artery Disease (CAD), Diabetes Mellitus, Hyperlipidemia, Hypertension, Musculoskeletal Disorder, Osteoarthritis (OA), Thyroid Disorder Additional Past Medical History / Comment(s): Morbid obesity History of Any Multi-Drug Resistant Organisms: None Reported Past Surgical History: Bariatric Surgery, Hernia Repair, Orthopedic Surgery Additional Past Surgical History / Comment(s): Total Right knee replacement, 3 hernia repairs. Left hip repair Past Anesthesia/Blood Transfusion Reactions: No Reported Reaction Past Psychological History: Anxiety, Bipolar, Depression Smoking Status: Never smoker Past Alcohol Use History: None Reported Past Drug Use History: None Reported - Past Family History Mother Family Medical History: Cancer Additional Family Medical History / Comment(s): lung cancer Father Additional Family Medical History / Comment(s): "my dad from a blood clot" patient is unsure where the blood clot was. Brother(s) Family Medical History: Diabetes Mellitus Sister(s) Additional Family Medical History / Comment(s): "her heart races too fast" General Exam - General Exam Comments Initial Comments: GENERAL: The patient is well nourished and well hydrated. VITAL SIGNS: Heart rate, blood pressure, respiratory rate reviewed as recorded in nurse's notes. EYES: Pupils are round and reactive. Extraocular movements are intact. No conjunctival / lid redness or swelling. ENT: No external evidence of injury, swelling, or ecchymosis. Airway is patent. Throat is clear. NECK: Nontender. No swelling or evidence of injury. No subcutaneous emphysema. Trachea is midline. No thyroid mass. HEART: Regular rate and rhythm. Good peripheral pulses. LUNGS/CHEST: Breath sounds clear and equal bilaterally. No rales, rhonchi, or wheezes. No ecchymosis, subcutaneous emphysema, or tenderness. ABDOMEN: Abdomen soft without tenderness. No palpable masses or organomegaly. No peritoneal signs. No abdominal wall swelling or ecchymosis. EXTREMITIES: No extremity tenderness. Normal muscle tone and function. No thoracolumbar tenderness. NEUROLOGIC: Sensation is grossly intact. Cranial nerve exam reveals face is symmetrical, tongue is midline, speech is clear. SKIN: No abrasions or ecchymosis is noted. No induration or masses noted. PSYCHIATRIC: Alert and oriented. Flat affect is noted at times. At other times she is screaming and quite distressed. Course Vital Signs 11/19/16 18:32 Temperature 97.4 F L Pulse Rate 72 Respiratory 18 Rate Blood Pressure 131/67 O2 Sat by Pulse 98 Oximetry Medical Decision Making - Medical Decision Making The patient was seen and examined. All diagnostics are reviewed as able thus far. Overall, it is felt as though she would benefit from further psychiatric evaluation and treatment. A consult is placed for psychiatry. The patient was evaluated by the psychiatric nurse and they're recommending transfer to another psychiatric facility. Is felt as though the patient is medically cleared for further transport. Certification was completed by myself. The patient will be transferred via EMS to facility set up by the psychiatric team. - Lab Data Result diagrams: 11/19/16 23:22 Lab Results 11/19/16 11/19/16 Range/Units 20:26 23:22 WBC 5.0 (3.8-10.6) k/uL RBC 3.85 (3.80-5.40) m/uL Hgb 11.0 L (11.4-16.0) gm/dL Hct 34.3 (34.0-46.0) % MCV 89.1 (80.0-100.0) fL MCH 28.6 (25.0-35.0) pg MCHC 32.1 (31.0-37.0) g/dL RDW 14.5 (11.5-15.5) % Plt Count 220 (150-450) k/uL Urine Color Yellow Urine Appearance Clear (Clear) Urine pH 5.0 (5.0-8.0) Ur Specific [place] 1.012 (1.001-1.035) Urine Protein Negative (Negative) Urine Glucose (UA) Negative (Negative) Urine Ketones Negative (Negative) Urine Blood Negative (Negative) Urine Nitrite Negative (Negative) Urine Bilirubin Negative (Negative) Urine Urobilinogen <2.0 (<2.0) mg/dL Ur Leukocyte Esterase Trace H (Negative) Urine RBC <1 (0-5) /hpf Urine WBC 2 (0-5) /hpf Ur Squamous Epith Cells <1 (0-4) /hpf Urine Bacteria Rare H (None) /hpf Hyaline Casts 7 H (0-2) /lpf Urine Opiates Screen Not Detected (NotDetected) Ur Oxycodone Screen Not Detected (NotDetected) Urine Methadone Screen Not Detected (NotDetected) Ur Propoxyphene Screen Not Detected (NotDetected) Ur Barbiturates Screen Not Detected (NotDetected) U Tricyclic Antidepress Not Detected (NotDetected) Ur Phencyclidine Scrn Not Detected (NotDetected) Ur Amphetamines Screen Not Detected (NotDetected) U Methamphetamines Scrn Not Detected (NotDetected) U Benzodiazepines Scrn Detected H (NotDetected) Urine Cocaine Screen Not Detected (NotDetected) U Marijuana (THC) Screen Not Detected (NotDetected) Disposition Clinical Impression: Depression, Suicidal ideation Disposition: OTHER INSTITUTION NOT DEFINED Condition: Fair Referrals: Dm Bhakta DO [Primary Care Provider] - 1-2 days Time of Disposition: 00:29 - Out of Hospital Transfer - Req. Specs Out of Hospital Transfer - Requested Specifics: Psychiatric Non-ICU (Psych hospital)
[2016-11-20 01:03] LABS: Add Differential Manual Differential
[2016-11-20 01:05] LABS: Nucleated Red Blood Cells 0 /100 WBC (0-0); Total Cells Counted 100
[2016-11-20 01:06] LABS: Manual Review Performed
[2016-11-20] MEDS ORDERED: ZIPRASIDONE 20 MG VIAL IM STA (04:18)
[2016-11-20] MEDS ORDERED: IBUPROFEN 400 MG TAB PO STA (05:10)
[2016-11-20 06:00] LABS: Glucose,Whole Blood 93 mg/dL (75-99)
[2016-11-20 08:29] LABS: Basophils % (A) 1 %; CH 28.6; CHCM 32.2; Eosinophils # (A) 0.1 k/uL (0-0.7); Eosinophils % (A) 2 %; HCT 37.9 % (34.0-46.0); HDW 2.78; HGB 11.9 gm/dL (11.4-16.0); Luc # (Auto) 0.23; Luc % (Auto) 4; Lymphocytes % (A) 19 %; MCH 28.1 pg (25.0-35.0); MCHC 31.5 g/dL (31.0-37.0); MCV 89.2 fL (80.0-100.0); Monocytes # (A) 0.3 k/uL (0-1.0); Monocytes % (A) 5 %; Neutrophils # (A) 3.6 k/uL (1.3-7.7); Neutrophils % (A) 70 %; RBC 4.25 m/uL (3.80-5.40); RDW 14.5 % (11.5-15.5); WBC 5.1 k/uL (3.8-10.6); WBC (Perox) 5.04
[2016-11-20 08:40] LABS: ALT 22 U/L (9-52); AST 24 U/L (14-36); Alkaline Phosphatase 88 U/L (38-126); Anion Gap 14 mmol/L; Blood Urea Nitrogen 31 mg/dL (7-17); Calcium 9.5 mg/dL (8.4-10.2); Carbon Dioxide 21 mmol/L (22-30); Chloride 110 mmol/L (98-107); Glucose 94 mg/dL (74-99); Non-African American GFR(MDRD) 60 (>60 ml/min/1.73 sqM); Potassium 4.1 mmol/L (3.5-5.1); Sodium 145 mmol/L (137-145); Total Bilirubin 0.4 mg/dL (0.2-1.3); Total Protein 6.9 g/dL (6.3-8.2)
[2016-11-20] MEDS: LEVOTHYROXINE 137 MCG TAB PO SCH ×2 (11:08→11:10)
--- NOTE | 2016-11-20 16:05 | P.PN ---
Progress Note - Text SUBJECTIVE: I reviewed the medical record and interviewed Ms. Lerner. She is a 56-year-old woman who has history of a borderline personality disorder. The [facility]'s department brought her to the emergency department and completed a petition for hospitalization. Ms. Lerner called her therapist earlier in the day and complained of having self-harm thoughts. During our interview, she alleged that she does not remember exactly what she told her therapist. However , she insists that she was not having suicidal thoughts, intent or plan. When she arrived in the ER she stated that she was angry and told staff that she was having thoughts of hurting herself. She again denied that she meant suicidal intent or plan. OBJECTIVE: She presented as a morbidly obese 56-year-old woman who was sitting comfortably on her bed in the emergency department. She maintained eye contact and attended to the interview. She had a blunted facial expression. She was alert and oriented to person, place and time. She had psychomotor retardation but no abnormal involuntary movements. Her cage was slow. Her speech was spontaneous with decreased rhythm and volume. She had no articulation difficulties. Her affect was blunted but stable and appropriate. She denied suicidal ideation or wishes. She denied homicidal ideation. She denied depressive cognitions such as hopelessness, helplessness or worthlessness. She did not express obsessions, phobias or ideas of reference. Her thinking was concrete but her associations were coherent and logical. She denied hallucinations and did not appear to be responding to internal stimuli. ASSESSMENT: She has a history of a borderline personality disorder and is actively engaged in mental health services including dialectic behavioral therapy. She presented with a history of self-harm thoughts. She denied that she had suicidal intent or plan. PLAN: Discharge her home with follow-up through [facility]. Negative medical certificate completed.
[2016-11-20 16:25] VITALS: BP 152/80; PULSE 61; RESP 18; TEMP 97.2
[2016-11-20] MEDS ORDERED: NYSTATIN 100,000 UNIT/GM POWD 15 GM TOPICAL SCH (21:00)
== END 2016-11-20 16:25 | disposition home or self-care (01) ==
LOC: EC 18:16
DX: F60.3 Borderline personality disorder (principal); F31.9 Bipolar disorder, unspecified; R45.851 Suicidal ideations; J45.909 Unspecified asthma, uncomplicated; I25.10 Atherosclerotic heart disease of native coronary artery without angina pectoris; E11.9 Type 2 diabetes mellitus without complications; E78.5 Hyperlipidemia, unspecified; I10 Essential (primary) hypertension; M19.90 Unspecified osteoarthritis, unspecified site; E07.9 Disorder of thyroid, unspecified; E66.01 Morbid (severe) obesity due to excess calories; Z68.43 Body mass index [BMI] 50.0-59.9, adult; Z79.899 Other long term (current) drug therapy; Z91.041 Radiographic dye allergy status; Z88.0 Allergy status to penicillin; Z88.2 Allergy status to sulfonamides; Z88.7 Allergy status to serum and vaccine; Z88.8 Allergy status to other drugs, medicaments and biological substances
CPT/HCPCS: 99284; 96372; 82075; 80299; 36415 ×2; 80053; 80048; 85025 ×2; 81001; 80306; 83520 ×2; J3486; 99285

== ENCOUNTER 2016-11-27 14:30 | Emergency (ER) | payer MEDICARE, OTHER ==
--- NOTE | 2016-11-27 15:26 | ED ---
Psych HPI - General Source: patient Mode of arrival: ambulatory <Papi Aparicio - Last Filed: 11/27/16 17:05> <Galdino Jean Baptiste - Last Filed: 11/27/16 20:15> - General Chief Complaint: Psychiatric Symptoms Stated Complaint: mental health Time Seen by Provider: 11/27/16 14:52 - History of Present Illness Initial Comments: This is a 56-year-old female who presents emergency department for depressive symptoms. She states that she had a thought of overdosing on melatonin. She states that she was recently discharged from [facility] and to spite them she had thoughts of trying to kill herself. Before she was able to do that she decided come emergency department to help. She denies any homicidal ideation. She denies any self injury. She does admit to little bit of a cough but no other complaints. (Papi Aparicio) - Related Data Home Medications Medication Instructions Recorded Confirmed Gabapentin [Neurontin] 600 mg PO TID@0900,1700,209907/09/15 11/27/16 Carvedilol 25 mg PO BID@0900,209910/10/15 11/27/16 Pravastatin Sodium 80 mg PO HS@209910/10/15 11/27/16 Levothyroxine Sodium [Synthroid] 137 mcg PO DAILY@0630 11/05/15 11/27/16 DULoxetine HCL [Cymbalta] 60 mg PO DAILY@0900 05/05/16 11/27/16 rOPINIRole HCL [Requip] 3 mg PO HS@209905/05/16 11/27/16 LORazepam [Ativan] 1 mg PO TID@0900,1700,209908/15/16 11/27/16 Furosemide [Lasix] 40 mg PO DAILY@0900 10/25/16 11/27/16 Lurasidone [Latuda] 80 mg PO HS@209910/25/16 11/27/16 Multivitamins, Thera [Multivitamin] 1 tab PO DAILY@0910/25/16 11/27/16 Nystatin [Nystop] 1 applic TOPICAL BID@0900,1700 10/25/16 11/27/16 Topiramate [Topamax] 100 mg PO BID@0900,209910/25/16 11/27/16 hydrOXYzine PAMOATE [Vistaril] 100 mg PO HS@2100 10/30/16 11/27/16 rOPINIRole HCL [Requip] 2 mg PO DAILY@1300 10/30/16 11/27/16 Ibuprofen [Motrin] 600 mg PO Q6H PRN 11/03/16 11/27/16 traZODone HCL [Desyrel] 200 mg PO HS 11/03/16 11/27/16 Oxybutynin Chloride [Ditropan XL] 10 mg PO DAILY@0900 11/11/16 11/27/16 Fluticasone Nasal [place] [Flonase 1 spray EA NOSTRIL BID@0900,2100 11/19/1611/27 Nasal [place]] Allergies Allergy/AdvReac Type Severity Reaction Status Date / Time buspirone [From BuSpar] Allergy Unknown Verified 11/27/16 15:13 haloperidol [From Haldol] Allergy Swelling Verified 11/27/16 15:13 haloperidol lactate Allergy Swelling Verified 11/27/16 15:13 [From Haldol] iodine Allergy Swelling Verified 11/27/16 15:13 Penicillins Allergy Swelling Verified 11/27/16 15:13 prochlorperazine edisylate Allergy Rash/Hives Verified 11/27/16 15:13 [From Compazine] prochlorperazine maleate Allergy Rash/Hives Verified 11/27/16 15:13 [From Compazine] Sulfa (Sulfonamide Allergy Rash/Hives Verified 11/27/16 15:13 Antibiotics) Tetanus Vaccines and Toxoid Allergy Rash/Hives Verified 11/27/16 15:13 [Tetanus Vaccines & Toxoid] trifluoperazine HCl Allergy Unknown Verified 11/27/16 15:13 [From Stelazine] Review of Systems ROS Other: All systems not noted in ROS Statement are negative. <Papi Aparicio - Last Filed: 11/27/16 17:05> ROS Other: All systems not noted in ROS Statement are negative. <Galdino Jean Baptiste - Last Filed: 11/27/16 20:15> ROS Statement: Those systems with pertinent positive or pertinent negative responses have been documented in the HPI. Past Medical History Past Medical History: Asthma, Coronary Artery Disease (CAD), Diabetes Mellitus, Hyperlipidemia, Hypertension, Musculoskeletal Disorder, Osteoarthritis (OA), Thyroid Disorder Additional Past Medical History / Comment(s): Morbid obesity History of Any Multi-Drug Resistant Organisms: None Reported Past Surgical History: Bariatric Surgery, Hernia Repair, Orthopedic Surgery Additional Past Surgical History / Comment(s): Total Right knee replacement, 3 hernia repairs. Left hip repair Past Anesthesia/Blood Transfusion Reactions: No Reported Reaction Past Psychological History: Anxiety, Bipolar, Depression Smoking Status: Never smoker Past Alcohol Use History: None Reported Past Drug Use History: None Reported - Past Family History Mother Family Medical History: Cancer Additional Family Medical History / Comment(s): lung cancer Father Additional Family Medical History / Comment(s): "my dad from a blood clot" patient is unsure where the blood clot was. Brother(s) Family Medical History: Diabetes Mellitus Sister(s) Additional Family Medical History / Comment(s): "her heart races too fast" <Papi Aparicio - Last Filed: 11/27/16 17:05> General Exam Limitations: physical limitation <Papi Aparicio - Last Filed: 11/27/16 17:05> <Galdino Jean Baptiste - Last Filed: 11/27/16 20:15> - General Exam Comments Initial Comments: Constitutional: Awake alert Appears comfortable Head: Normocephalic atraumatic Eyes: no conjunctival injection No scleral icterus EOMI Neck: No JVD Supple Heart: Regular rate rhythm normal S1-S2 no murmurs Lungs: Clear to auscultation bilaterally No wheezing No rales Abdomen: Soft nondistended nontender Extremities: Non edematous DP pulses intact Radial pulses intact Neuro: A&Ox3 No focal neurologic deficits Psych: The patient is depressed and suicidal (Papi Aparicio) Course <Papi Aparicio - Last Filed: 11/27/16 17:05> <Galdino Jean Baptiste - Last Filed: 11/27/16 20:15> Vital Signs 11/27/16 11/27/16 14:33 19:07 Temperature 97.9 F 97.8 F Pulse Rate 68 61 Respiratory 16 16 Rate Blood Pressure 111/70 129/61 O2 Sat by Pulse 94 L 98 Oximetry - Reevaluation(s) Reevaluation #1: 11/27/16 16:49 Patient is currently comfortable. Chest x-ray was reviewed and does not show any consolidative process to indicate pneumonia. The patient states that she is not short of breath. Chest x-ray was read as possible CHF findings however the patient does not have a history of this at all. She states that she has not been short of breath with exertion. No chest pain. She states that she does have a appointment with a portfolio strategist for evaluation in the future. At this time I do not feel that she requires any further workup for heart failure. She is still medically clear for psychiatric evaluation. (Papi Aparicio) Medical Decision Making <Papi Aparicio - Last Filed: 11/27/16 17:05> <Galdino Jean Baptiste - Last Filed: 11/27/16 20:15> - Medical Decision Making Patient's care transferred to Dr. Jean Baptiste (Papi Aparicio) EPS came down and evaluated her and decided to make arrangements for her to go to [facility] because they thought she would be safe there. (Galdino Jean Baptiste) - Lab Data Lab Results 11/27/16 Range/Units 15:20 Urine Color Yellow Urine Appearance Clear (Clear) Urine pH 5.0 (5.0-8.0) Ur Specific [place] 1.011 (1.001-1.035) Urine Protein Negative (Negative) Urine Glucose (UA) Negative (Negative) Urine Ketones Negative (Negative) Urine Blood Negative (Negative) Urine Nitrite Negative (Negative) Urine Bilirubin Negative (Negative) Urine Urobilinogen <2.0 (<2.0) mg/dL Ur Leukocyte Esterase Moderate H (Negative) Urine RBC 2 (0-5) /hpf Urine WBC 27 H (0-5) /hpf Ur Squamous Epith Cells <1 (0-4) /hpf Urine Bacteria Occasional H (None) /hpf Urine Mucus Rare H (None) /hpf Urine Opiates Screen Detected H (NotDetected) Ur Oxycodone Screen Not Detected (NotDetected) Urine Methadone Screen Not Detected (NotDetected) Ur Propoxyphene Screen Not Detected (NotDetected) Ur Barbiturates Screen Not Detected (NotDetected) U Tricyclic Antidepress Not Detected (NotDetected) Ur Phencyclidine Scrn Not Detected (NotDetected) Ur Amphetamines Screen Not Detected (NotDetected) U Methamphetamines Scrn Not Detected (NotDetected) U Benzodiazepines Scrn Detected H (NotDetected) Urine Cocaine Screen Not Detected (NotDetected) U Marijuana (THC) Screen Not Detected (NotDetected) Disposition <Papi Aparicio - Last Filed: 11/27/16 17:05> Time of Disposition: 20:14 <Galdino Jean Baptiste - Last Filed: 11/27/16 20:15> Clinical Impression: Adjustment reaction, Depression Disposition: HOME SELF-CARE Instructions: Depression (ED) Referrals: Dm Bhakta DO [Primary Care Provider] - 1-2 days
[2016-11-27 15:33] LABS: Appearance,Urine Clear (Clear); Bacteria,Urine Occasional /hpf; Bilirubin,Urine Negative (Negative); Glucose,Urine (UA) Negative (Negative); Ketones,Urine Negative (Negative); Leukocyte Esterase,Urine Moderate (Negative); Mucus,Urine Rare /hpf; Nitrite,Urine Negative (Negative); Particle Count 1787; Protein,Urine Negative (Negative); RBC,Urine 2 /hpf (0-5); Specific Gravity,Urine 1.011 (1.001-1.035); Squamous Epithelial Cell,Urine <1 /hpf (0-4); UA Billing (MACRO vs. MICRO) MICRO; Urobilinogen,Urine <2.0 mg/dL (<2.0); WBC,Urine 27 /hpf (0-5)
--- NOTE | 2016-11-27 15:54 | XR ---
EXAMINATION TYPE: XR chest 2V DATE OF EXAM: 11/27/2016 3:48 PM COMPARISON: Prior chest x-ray November 17, 2016. HISTORY: Cough. TECHNIQUE: Frontal and lateral views of the chest are obtained. FINDINGS: There is no focal air space opacity, pleural effusion, or pneumothorax seen. Eventration o f right hemidiaphragm is redemonstrated. The cardiac silhouette size remains enlarged with left ventr icular dilatation noted on lateral view. Mild central vascular congestion is difficult to exclude. T he osseous structures are intact. IMPRESSION: Cardiomegaly with suspected mild central vascular congestion. Clinical correlate for CHF exacerbation advised. Suspect moderate to severe left ventricular dilatation, consider cardiac echo correlation if it has not been performed.
[2016-11-27] MEDS ORDERED: GABAPENTIN 300 MG CAP PO STA (16:29)
[2016-11-27 20:31] VITALS: BP 132/58; PULSE 65; RESP 18; TEMP 98.7
== END 2016-11-27 21:10 | disposition home or self-care (01) ==
LOC: EC 14:30
DX: F43.20 Adjustment disorder, unspecified (principal); F32.9 Major depressive disorder, single episode, unspecified; J45.909 Unspecified asthma, uncomplicated; I25.10 Atherosclerotic heart disease of native coronary artery without angina pectoris; E11.9 Type 2 diabetes mellitus without complications; E78.5 Hyperlipidemia, unspecified; I10 Essential (primary) hypertension; M19.90 Unspecified osteoarthritis, unspecified site; E07.9 Disorder of thyroid, unspecified; E66.01 Morbid (severe) obesity due to excess calories; F31.9 Bipolar disorder, unspecified; F41.9 Anxiety disorder, unspecified; Z79.51 Long term (current) use of inhaled steroids; Z79.899 Other long term (current) drug therapy; Z88.0 Allergy status to penicillin; Z88.2 Allergy status to sulfonamides; Z88.7 Allergy status to serum and vaccine; Z88.8 Allergy status to other drugs, medicaments and biological substances
CPT/HCPCS: 71020; 80306; 81001; 82075; 99284

== ENCOUNTER 2016-12-08 21:31 | Emergency (ER) | payer MEDICARE, OTHER ==
[2016-12-08] MEDS ORDERED: FUROSEMIDE 10 MG/ML 4 ML VIAL IV STA (22:03)
--- NOTE | 2016-12-08 22:26 | ED ---
Extremity Problem HPI - General Chief complaint: Extremity Problem,Nontraumatic Stated complaint: Legs swollen Time Seen by Provider: 12/08/16 21:53 Source: patient Mode of arrival: ambulatory Limitations: no limitations - History of Present Illness Initial comments: This patient is a 56-year-old lady who gives history of previous congestive heart failure and bilateral leg edema. She states that she feels she is having a recurrence of this which is been going on about a week perhaps a little more. She believes that in that interval she has gained about 20 pounds. The patient is denying any associated symptoms. Patient has not had fever, chills, or rash. She denies any open sores of the legs. She denies preet leg pain although there is some aching bilaterally that is relieved by putting her legs up. The patient denies chest pain, dyspnea, hemoptysis, palpitations or syncope. Patient has not had change in urination or bowel movements. MD Complaint: extremity swelling Onset/Timin -: week(s) Location: bilateral lower extremity History of Same: Yes Radiation: none Quality: aching Consistency: constant Improves with: elevation Worsens with: nothing Associated Symptoms: denies other symptoms - Related Data Home Medications Medication Instructions Recorded Confirmed Gabapentin [Neurontin] 600 mg PO TID@0900,1700,209907/09/15 12/06/16 Carvedilol 25 mg PO BID@899,209910/10/15 12/06/16 Pravastatin Sodium 80 mg PO HS@209910/10/15 12/06/16 Levothyroxine Sodium [Synthroid] 137 mcg PO DAILY@62911/05/15 12/06/16 DULoxetine HCL [Cymbalta] 60 mg PO DAILY@89905/05/16 12/06/16 rOPINIRole HCL [Requip] 3 mg PO HS@209905/05/16 12/06/16 LORazepam [Ativan] 1 mg PO TID@0900,1700,209908/15/16 12/06/16 Furosemide [Lasix] 40 mg PO DAILY@89910/25/16 12/06/16 Lurasidone [Latuda] 80 mg PO HS@209910/25/16 12/06/16 Multivitamins, Thera [Multivitamin] 1 tab PO DAILY@89910/25/1612/06/17 Nystatin [Nystop] 1 applic TOPICAL BID@0900,1700 10/25/16 12/06/16 Topiramate [Topamax] 100 mg PO BID@0900,2100 10/25/16 12/06/16 hydrOXYzine PAMOATE [Vistaril] 100 mg PO HS@2100 10/30/16 12/06/16 rOPINIRole HCL [Requip] 2 mg PO DAILY@1300 10/30/16 12/06/16 Ibuprofen [Motrin] 600 mg PO Q6H PRN 11/03/16 12/06/16 traZODone HCL [Desyrel] 200 mg PO HS 11/03/16 12/06/16 Oxybutynin Chloride [Ditropan XL] 10 mg PO DAILY@0900 11/11/16 12/06/16 Fluticasone Nasal [place] [Flonase 1 spray EA NOSTRIL BID@0900,2100 11/19/1612/06 Nasal [place]] Previous Rx's Medication Instructions Recorded Chlorhexidine Gluconate [Peridex] 15 ml PO DAILY #475 ml 12/09/16 Allergies Allergy/AdvReac Type Severity Reaction Status Date / Time buspirone [From BuSpar] Allergy Unknown Verified 12/08/16 21:44 haloperidol [From Haldol] Allergy Swelling Verified 12/08/16 21:44 haloperidol lactate Allergy Swelling Verified 12/08/16 21:44 [From Haldol] iodine Allergy Swelling Verified 12/08/16 21:44 Penicillins Allergy Swelling Verified 12/08/16 21:44 prochlorperazine edisylate Allergy Rash/Hives Verified 12/08/16 21:44 [From Compazine] prochlorperazine maleate Allergy Rash/Hives Verified 12/08/16 21:44 [From Compazine] Sulfa (Sulfonamide Allergy Rash/Hives Verified 12/08/16 21:44 Antibiotics) Tetanus Vaccines and Toxoid Allergy Rash/Hives Verified 12/08/16 21:44 [Tetanus Vaccines & Toxoid] trifluoperazine HCl Allergy Unknown Verified 12/08/16 21:44 [From Stelazine] Review of Systems ROS Statement: Those systems with pertinent positive or pertinent negative responses have been documented in the HPI. ROS Other: All systems not noted in ROS Statement are negative. Constitutional: Denies: fever, chills, weakness Respiratory: Denies: cough, dyspnea, hemoptysis Cardiovascular: Reports: edema. Denies: chest pain, palpitations, orthopnea, syncope Gastrointestinal: Denies: abdominal pain, vomiting, melena, hematochezia Genitourinary: Denies: dysuria, hematuria Musculoskeletal: Denies: back pain Skin: Denies: rash Neurological: Denies: weakness, numbness Past Medical History Past Medical History: Asthma, Coronary Artery Disease (CAD), Diabetes Mellitus, Hyperlipidemia, Hypertension, Musculoskeletal Disorder, Osteoarthritis (OA), Thyroid Disorder Additional Past Medical History / Comment(s): Morbid obesity History of Any Multi-Drug Resistant Organisms: None Reported Past Surgical History: Bariatric Surgery, Hernia Repair, Orthopedic Surgery Additional Past Surgical History / Comment(s): Total Right knee replacement, 3 hernia repairs. Left hip repair Past Anesthesia/Blood Transfusion Reactions: No Reported Reaction Past Psychological History: Anxiety, Bipolar, Depression Smoking Status: Never smoker Past Alcohol Use History: None Reported Past Drug Use History: None Reported - Past Family History Mother Family Medical History: Cancer Additional Family Medical History / Comment(s): lung cancer Father Additional Family Medical History / Comment(s): "my dad from a blood clot" patient is unsure where the blood clot was. Brother(s) Family Medical History: Diabetes Mellitus Sister(s) Additional Family Medical History / Comment(s): "her heart races too fast" General Exam Limitations: no limitations General appearance: alert, in no apparent distress, obese Head exam: Present: atraumatic, normocephalic Eye exam: Present: normal appearance Respiratory exam: Present: normal lung sounds bilaterally. Absent: respiratory distress, wheezes, rales, rhonchi, stridor Cardiovascular Exam: Present: regular rate, normal rhythm, normal heart sounds. Absent: systolic murmur, diastolic murmur, rubs, gallop GI/Abdominal exam: Present: soft. Absent: tenderness, guarding, rebound Extremities exam: Present: pedal edema Back exam: Present: normal inspection. Absent: CVA tenderness (R), CVA tenderness (L) Skin exam: Present: warm, dry, intact, normal color. Absent: rash Course Vital Signs 12/08/16 12/08/16 12/09/16 21:39 23:18 00:17 Temperature 97.5 F L 97.6 F Pulse Rate 77 63 Respiratory 20 18 16 Rate Blood Pressure 118/66 115/60 O2 Sat by Pulse 100 94 L Oximetry Medical Decision Making - Lab Data Result diagrams: 12/08/16 20:00 12/08/16 20:00 Lab Results 12/08/16 12/08/16 Range/Units 20:00 20:00 WBC 5.4 (3.8-10.6) k/uL RBC 3.75 L (3.80-5.40) m/uL Hgb 11.0 L (11.4-16.0) gm/dL Hct 34.1 (34.0-46.0) % MCV 90.9 (80.0-100.0) fL MCH 29.3 (25.0-35.0) pg MCHC 32.3 (31.0-37.0) g/dL RDW 14.3 (11.5-15.5) % Plt Count 295 (150-450) k/uL Neutrophils % (Manual) 65.0 % Band Neutrophils % 2.0 % Lymphocytes % (Manual) 31.0 % Monocytes % (Manual) 1.0 % Eosinophils % (Manual) 1.0 % Neutrophils # (Manual) 3.6 (1.3-7.7) k/uL Lymphocytes # (Manual) 1.7 (1.0-4.8) k/uL Monocytes # (Manual) 0.1 (0-1.0) k/uL Eosinophils # (Manual) 0.1 (0-0.7) k/uL Nucleated RBCs 0 (0-0) /100 WBC Large Platelets Present Polychromasia Present Hypochromasia Slight Anisocytosis (manual) Present Sodium 141 (137-145) mmol/L Potassium 4.2 (3.5-5.1) mmol/L Chloride 108 H (98-107) mmol/L Carbon Dioxide 22 (22-30) mmol/L Anion Gap 11 mmol/L BUN 28 H (7-17) mg/dL Creatinine 1.01 (0.52-1.04) mg/dL Est GFR (MDRD) Af Amer >60 (>60 ml/min/1.73 sqM) Est GFR (MDRD) Non-Af 57 (>60 ml/min/1.73 sqM) Glucose 82 (74-99) mg/dL Calcium 9.1 (8.4-10.2) mg/dL Disposition Clinical Impression: Edema Disposition: HOME SELF-CARE Condition: Fair Instructions: Leg Edema (ED), Gingivostomatitis (ED) Prescriptions: Chlorhexidine Gluconate [Peridex] 15 ml PO DAILY #475 ml Referrals: Dm Bhakta DO [Primary Care Provider] - 1-2 days
[2016-12-08 22:28] LABS: Aty Lym Flag Slight; CH 28.3; CHCM 31.4; HCT 34.1 % (34.0-46.0); HDW 2.94; Hypochromasia Slight; MCH 29.3 pg (25.0-35.0); MCHC 32.3 g/dL (31.0-37.0); MCV 90.9 fL (80.0-100.0); Mean Platelet Volume 7.2; RBC 3.75 m/uL (3.80-5.40); RDW 14.3 % (11.5-15.5); WBC 5.4 k/uL (3.8-10.6); WBC (Perox) 5.65
[2016-12-08 22:40] LABS: Anion Gap 11 mmol/L; Blood Urea Nitrogen 28 mg/dL (7-17); Calcium 9.1 mg/dL (8.4-10.2); Carbon Dioxide 22 mmol/L (22-30); Chloride 108 mmol/L (98-107); Glucose 82 mg/dL (74-99); Non-African American GFR(MDRD) 57 (>60 ml/min/1.73 sqM); Potassium 4.2 mmol/L (3.5-5.1); Sodium 141 mmol/L (137-145)
[2016-12-09 00:17] VITALS: RESP 16
[2016-12-09 00:24] LABS: Add Differential Manual Differential
[2016-12-09 00:26] LABS: Nucleated Red Blood Cells 0 /100 WBC (0-0); Polychromasia Present; Total Cells Counted 100
[2016-12-09 00:28] LABS: Large Platelets Present
--- NOTE | 2016-12-09 02:41 | US ---
EXAM: US VENOUS BILATERAL LOWER EXTREMITIES INDICATION: 56-year-old female, pain rule out DVT. TECHNIQUE: Real-time sonographic imaging of the bilateral common femoral, superficial femoral and popliteal veins is performed with attempted intermittent compression. The study is supplemented with color flow imaging and duplex Doppler during spontaneous flow and attempted calf augmentation. COMPARISON: None. FINDINGS: Normal flow is demonstrated from the common femoral vein to the popliteal veins bilaterally. Normal spontaneous phasic flow is noted. The infrapopliteal calf veins are not visualized. Evaluation is limited due to difficulty with compression and augmentation due to body habitus and pain. IMPRESSION: No sonographic evidence of deep venous thrombosis within the limitations as described.
[2016-12-09] MEDS ORDERED: CHLORHEXIDINE GLUCONATE 15 ML CUP MUCOUS MEM STA (02:44)
[2016-12-09 02:55] VITALS: BP 111/59; PULSE 67; TEMP 97.8
== END 2016-12-09 03:13 | disposition home or self-care (01) ==
LOC: EC 21:31
DX: R60.0 Localized edema (principal); I25.10 Atherosclerotic heart disease of native coronary artery without angina pectoris; E78.5 Hyperlipidemia, unspecified; I10 Essential (primary) hypertension; E03.9 Hypothyroidism, unspecified; E66.01 Morbid (severe) obesity due to excess calories; F41.9 Anxiety disorder, unspecified; F31.9 Bipolar disorder, unspecified; M19.90 Unspecified osteoarthritis, unspecified site; Z88.0 Allergy status to penicillin; Z88.2 Allergy status to sulfonamides; Z88.7 Allergy status to serum and vaccine; Z88.8 Allergy status to other drugs, medicaments and biological substances; Z91.048 Other nonmedicinal substance allergy status; Z79.899 Other long term (current) drug therapy
CPT/HCPCS: 99284 ×2; 36415; 80048; 85025; 93970; J1940

== ENCOUNTER 2016-12-10 15:47 | Inpatient (IN) | payer MEDICARE, OTHER ==
[2016-12-10] MEDS ORDERED: SODIUM CHLORIDE 0.9% 1,000 ML IV STA (17:04)
[2016-12-10] MEDS ORDERED: NITROGLYCERIN SL TABS 0.4 MG TAB SUBLINGUAL STA (17:04)
--- NOTE | 2016-12-10 17:12 | ED ---
General Adult HPI - General Chief complaint: Chest Pain Stated complaint: Heart Issues Time Seen by Provider: 12/10/16 16:50 Source: patient, RN notes reviewed, old records reviewed Mode of arrival: ambulatory - History of Present Illness Initial comments: Chief complaint and history of present illness a 56-year-old female who has had on-again off-again chest pain eye last couple hours for the past several weeks. Today she was seen by her pattern room attendant, Dr. Feldman. He sent emergency room because of recurrent chest pain and leg swelling. Patient states occasionally discomfort goes toward the right shoulder and right side of her neck. It is reproducible with palpation over the anterior chest wall. No vomiting but she is slightly nauseated at times. Denies any sweats. - Related Data Home Medications Medication Instructions Recorded Confirmed Gabapentin [Neurontin] 600 mg PO TID@0900,1700,209907/09/15 12/10/16 Carvedilol 25 mg PO BID@0900,209910/10/15 12/10/16 Pravastatin Sodium 80 mg PO HS@209910/10/15 12/10/16 Levothyroxine Sodium [Synthroid] 137 mcg PO DAILY@0630 11/05/15 12/10/16 DULoxetine HCL [Cymbalta] 60 mg PO DAILY@0900 05/05/16 12/10/16 rOPINIRole HCL [Requip] 3 mg PO HS@209905/05/16 12/10/16 LORazepam [Ativan] 1 mg PO TID@0900,1700,2100 08/15/16 12/10/16 Furosemide [Lasix] 40 mg PO DAILY@0900 10/25/16 12/10/16 Lurasidone [Latuda] 80 mg PO HS@209910/25/16 12/10/16 Multivitamins, Thera [Multivitamin] 1 tab PO DAILY@0910/25/16 12/10/16 Nystatin [Nystop] 1 applic TOPICAL BID@0900,1700 10/25/16 12/10/16 Topiramate [Topamax] 100 mg PO BID@0900,209910/25/16 12/10/16 hydrOXYzine PAMOATE [Vistaril] 100 mg PO HS@209910/30/16 12/10/16 rOPINIRole HCL [Requip] 2 mg PO DAILY@1300 02/28/17 04/10/17 Ibuprofen [Motrin] 600 mg PO Q6H PRN 11/03/16 12/10/16 traZODone HCL [Desyrel] 200 mg PO HS 11/03/16 12/10/16 Fluticasone Nasal Brandon [Flonase 1 spray EA NOSTRIL BID@0900,2100 11/19/1612/10 Nasal Brandon] Mirabegron [Myrbetriq] 25 mg PO DAILY 12/10/16 12/10/16 Previous Rx's Medication Instructions Recorded Chlorhexidine Gluconate [Peridex] 15 ml PO DAILY #475 ml 12/09/16 Allergies Allergy/AdvReac Type Severity Reaction Status Date / Time buspirone [From BuSpar] Allergy Unknown Verified 12/10/16 17:25 haloperidol [From Haldol] Allergy Swelling Verified 12/10/16 17:25 haloperidol lactate Allergy Swelling Verified 12/10/16 17:25 [From Haldol] iodine Allergy Swelling Verified 12/10/16 17:25 Penicillins Allergy Swelling Verified 12/10/16 17:25 prochlorperazine edisylate Allergy Rash/Hives Verified 12/10/16 17:25 [From Compazine] prochlorperazine maleate Allergy Rash/Hives Verified 12/10/16 17:25 [From Compazine] Sulfa (Sulfonamide Allergy Rash/Hives Verified 12/10/16 17:25 Antibiotics) Tetanus Vaccines and Toxoid Allergy Rash/Hives Verified 12/10/16 17:25 [Tetanus Vaccines & Toxoid] trifluoperazine HCl Allergy Unknown Verified 12/10/16 17:25 [From Stelazine] Review of Systems ROS Statement: Those systems with pertinent positive or pertinent negative responses have been documented in the HPI. Review of systems no complaint of visual acuity changes or headache mild discomfort now. The patient will be given sublingual nitro. No shortness of breath. Patient is morbidly obese weighs approximately 375 pounds. Her discomfort usually occurs with exertion. Patient states she feels her legs are swollen. Past medical problems significant for asthma or and diet-controlled diabetes mellitus, hyperlipidemia, hypertension, musculoskeletal disorder with osteoarthritis. Hypothyroidism. Obesity. Patient surgeries include bariatric surgery and 2008. She had a cardiac catheterization 2011 no stents were placed. She had hernia repair. Total knee replacement and left hip surgery. Family history significant for mother had lung cancer father had heart disease. Patient's ALLERGIES include BuSpar own, haloperidol, iodine, penicillin prochlorperazine. Patient nonsmoker used to drink alcohol heavily has not had any alcohol for the past 3 years. ROS Other: All systems not noted in ROS Statement are negative. Past Medical History Past Medical History: Asthma, Coronary Artery Disease (CAD), Diabetes Mellitus, Hyperlipidemia, Hypertension, Musculoskeletal Disorder, Osteoarthritis (OA), Thyroid Disorder Additional Past Medical History / Comment(s): Morbid obesity History of Any Multi-Drug Resistant Organisms: None Reported Past Surgical History: Bariatric Surgery, Hernia Repair, Orthopedic Surgery Additional Past Surgical History / Comment(s): Total Right knee replacement, 3 hernia repairs. Left hip repair Past Anesthesia/Blood Transfusion Reactions: No Reported Reaction Past Psychological History: Anxiety, Bipolar, Depression Smoking Status: Never smoker Past Alcohol Use History: None Reported Past Drug Use History: None Reported - Past Family History Mother Family Medical History: Cancer Additional Family Medical History / Comment(s): lung cancer Father Additional Family Medical History / Comment(s): "my dad from a blood clot" patient is unsure where the blood clot was. Brother(s) Family Medical History: Diabetes Mellitus Sister(s) Additional Family Medical History / Comment(s): "her heart races too fast" General Exam - General Exam Comments Initial Comments: General: The patient is awake and alert, states she's been having several hours of chest discomfort. It is reproducible with palpation of the anterior chest wall. Vital signs show temperature 98.0 pulse 62 respiratory rate 16 pulse ox on percent 2 L nasal cannula. Blood pressure 121/65. Eye: Pupils are equal, round and reactive to light, extra-ocular movements are intact ; there is normal conjunctiva bilaterally. No signs of icterus. Ears, nose, mouth and throat: There are moist mucous membranes and no oral lesions. Neck: The neck is supple, there is no tenderness . Cardiovascular: There is a regular rate and rhythm. No murmur, rub or gallop is appreciated. Complaint of chest discomfort. It is reproducible palpation of the anterior chest wall. Respiratory: Lungs are clear to auscultation, respirations are non-labored, breath sounds are equal. No wheezes, stridor, rales, or rhonchi. Gastrointestinal: Soft, non-distended, non-tender abdomen without masses or organomegaly noted. There is no rebound or guarding present. No CVA tenderness. Bowel sounds are unremarkable. Morbidly obese. History of bariatric surgery 8 years ago. Weighs approximately 375 pounds. Back: There is no tenderness to palpation in the midline. There is no obvious deformity. No rashes noted. Musculoskeletal: Normal ROM, no tenderness, complaint of swollen legs.. Positive for pitting edema. There is no calf tenderness or swelling. Sensation intact. Neurological: CN II-XII intact, There are no obvious motor or sensory deficits. Coordination appears grossly intact. Speech is normal. No neuro deficits Skin: Skin is warm and dry and no rashes or lesions are noted. Course Vital Signs 12/10/16 12/10/16 12/10/16 15:52 16:41 17:59 Temperature 98 F Pulse Rate 65 62 57 L Respiratory 18 16 18 Rate Blood Pressure 124/67 121/65 105/58 O2 Sat by Pulse 96 100 Oximetry EKG Findings - EKG Comments: EKG Findings:: EKG was done and reviewed at 1612 showing sinus bradycardia rate [address] elevation no ectopy. DC interval is 148 QRS [address] Torres Medical Decision Making - Medical Decision Making The patient's labs show white count of 6 hemoglobin 11 hematocrit 34, INR 1.0. Acids 4.1 with a BUN of 33 creatinine 1.21 with a GFR of 46. Troponin less than 0.012. BNP 189. Chest x-ray is done AP and lateral view and reviewed the radiologist his final impression is cardiomegaly without acute pulmonary process or on current study. As read by Dr. sanchez Patient states she did get relief with the sublingual nitro. Patient be started on heparin because of her chest pain. With cardiology consultation. The case discussed with Dr. Pope on-call for Dr. hall. - Lab Data Result diagrams: 12/10/16 17:00 12/10/16 17:00 Lab Results 12/10/16 12/10/16 12/10/16 Range/Units 17:00 17:00 17:00 WBC 6.0 (3.8-10.6) k/uL RBC 3.80 (3.80-5.40) m/uL Hgb 11.1 L (11.4-16.0) gm/dL Hct 34.0 (34.0-46.0) % MCV 89.6 (80.0-100.0) fL MCH 29.3 (25.0-35.0) pg MCHC 32.7 (31.0-37.0) g/dL RDW 14.4 (11.5-15.5) % Plt Count 259 (150-450) k/uL Neutrophils % 62 % Lymphocytes % 26 % Monocytes % 5 % Eosinophils % 2 % Basophils % 1 % Neutrophils # 3.8 (1.3-7.7) k/uL Lymphocytes # 1.6 (1.0-4.8) k/uL Monocytes # 0.3 (0-1.0) k/uL Eosinophils # 0.1 (0-0.7) k/uL Basophils # 0.0 (0-0.2) k/uL PT (9.0-12.0) sec INR (<1.1) APTT (22.0-30.0) sec Sodium 139 (137-145) mmol/L Potassium 4.1 (3.5-5.1) mmol/L Chloride 102 (98-107) mmol/L Carbon Dioxide 27 (22-30) mmol/L Anion Gap 10 mmol/L BUN 33 H (7-17) mg/dL Creatinine 1.21 H (0.52-1.04) mg/dL Est GFR (MDRD) Af Amer 56 (>60 ml/min/1.73 sqM) Est GFR (MDRD) Non-Af 46 (>60 ml/min/1.73 sqM) Glucose 85 (74-99) mg/dL Calcium 9.4 (8.4-10.2) mg/dL Magnesium 2.0 (1.6-2.3) mg/dL Total Bilirubin 0.5 (0.2-1.3) mg/dL AST 22 (14-36) U/L ALT 22 (9-52) U/L Alkaline Phosphatase 77 (38-126) U/L Total Creatine Kinase 31 (30-135) U/L CK-MB (CK-2) <0.2 (0.0-2.4) ng/mL CK-MB (CK-2) Rel Index Troponin I <0.012 (0.000-0.034) ng/mL NT-Pro-B Natriuret Pep pg/mL Total Protein 6.8 (6.3-8.2) g/dL Albumin 4.0 (3.5-5.0) g/dL 12/10/16 12/10/16 Range/Units 17:00 17:00 WBC (3.8-10.6) k/uL RBC (3.80-5.40) m/uL Hgb (11.4-16.0) gm/dL Hct (34.0-46.0) % MCV (80.0-100.0) fL MCH (25.0-35.0) pg MCHC (31.0-37.0) g/dL RDW (11.5-15.5) % Plt Count (150-450) k/uL Neutrophils % % Lymphocytes % % Monocytes % % Eosinophils % % Basophils % % Neutrophils # (1.3-7.7) k/uL Lymphocytes # (1.0-4.8) k/uL Monocytes # (0-1.0) k/uL Eosinophils # (0-0.7) k/uL Basophils # (0-0.2) k/uL PT 9.8 (9.0-12.0) sec INR 1.0 (<1.1) APTT 22.3 (22.0-30.0) sec Sodium (137-145) mmol/L Potassium (3.5-5.1) mmol/L Chloride (98-107) mmol/L Carbon Dioxide (22-30) mmol/L Anion Gap mmol/L BUN (7-17) mg/dL Creatinine (0.52-1.04) mg/dL Est GFR (MDRD) Af Amer (>60 ml/min/1.73 sqM) Est GFR (MDRD) Non-Af (>60 ml/min/1.73 sqM) Glucose (74-99) mg/dL Calcium (8.4-10.2) mg/dL Magnesium (1.6-2.3) mg/dL Total Bilirubin (0.2-1.3) mg/dL AST (14-36) U/L ALT (9-52) U/L Alkaline Phosphatase (38-126) U/L Total Creatine Kinase (30-135) U/L CK-MB (CK-2) (0.0-2.4) ng/mL CK-MB (CK-2) Rel Index Troponin I (0.000-0.034) ng/mL NT-Pro-B Natriuret Pep 189 pg/mL Total Protein (6.3-8.2) g/dL Albumin (3.5-5.0) g/dL Disposition Clinical Impression: Unstable angina Disposition: ADMITTED IP TO THIS HOSP Condition: Fair
[2016-12-10 17:28] LABS: Basophils % (A) 1 %; CH 28.8; CHCM 32.3; Eosinophils # (A) 0.1 k/uL (0-0.7); Eosinophils % (A) 2 %; HGB 11.1 gm/dL (11.4-16.0); Luc # (Auto) 0.25; Luc % (Auto) 4; Lymphocytes # (A) 1.6 k/uL (1.0-4.8); Lymphocytes % (A) 26 %; MCH 29.3 pg (25.0-35.0); MCHC 32.7 g/dL (31.0-37.0); MCV 89.6 fL (80.0-100.0); Monocytes # (A) 0.3 k/uL (0-1.0); Monocytes % (A) 5 %; Neutrophils # (A) 3.8 k/uL (1.3-7.7); Neutrophils % (A) 62 %; RDW 14.4 % (11.5-15.5)
[2016-12-10 17:31] LABS: Calcium 9.4 mg/dL (8.4-10.2); Potassium 4.1 mmol/L (3.5-5.1); Total Bilirubin 0.5 mg/dL (0.2-1.3); Total Protein 6.8 g/dL (6.3-8.2)
[2016-12-10 17:32] LABS: Partial Thromboplastin Time 22.3 sec (22.0-30.0); Prothrombin Time 9.8 sec (9.0-12.0)
[2016-12-10 17:55] LABS: Creatine Kinase 31 U/L (30-135)
[2016-12-10 18:07] LABS: Creatine Kinase MB <0.2 ng/mL (0.0-2.4); Troponin I <0.012 ng/mL (0.000-0.034)
--- NOTE | 2016-12-10 18:20 | XR ---
EXAMINATION TYPE: XR chest 2V DATE OF EXAM: 12/10/2016 6:09 PM COMPARISON: Prior chest x-ray November 27, 2016. HISTORY: History of CAD, hypertension, diabetes, and asthma presents with recurrent chest pain TECHNIQUE: Frontal and lateral views of the chest are obtained. FINDINGS: Eventration of right hemidiaphragm is redemonstrated. There is no focal air space opacity, pleural effusion, or pneumothorax seen. The cardiac silhouette size is stable and enlarged. Multile jennifer spurring and spine is present. IMPRESSION: Cardiomegaly without acute pulmonary process on current study.
[2016-12-10] MEDS ORDERED: HEPARIN SODIUM,PORCINE 5,000 UNIT/ML 1 ML VIAL IV ONE (18:29)
[2016-12-10] MEDS ORDERED: NALOXONE 0.4 MG/ML 1 ML VIAL IV PRN (18:32)
[2016-12-10] MEDS: LORazepam 2 MG/ML SYRINGE IV PRN ×2 (18:44→23:45)
[2016-12-10] MEDS ORDERED: SODIUM CHLORIDE 0.9% 1,000 ML IV SCH (18:45)
[2016-12-10] MEDS: HEPARIN SODIUM,PORCINE/D5W PMX 25,000 UNIT in DEXTROSE/WATER 1 500ML.BAG IV SCH (18:46)
[2016-12-10] MEDS ORDERED: HEPARIN SODIUM,PORCINE 5,000 UNIT/ML 1 ML VIAL IV PRN (19:43)
[2016-12-10] MEDS: LURASIDONE 80 MG TAB PO SCH (21:02)
[2016-12-10] MEDS: traZODone HCL 100 MG TAB PO SCH (21:02)
[2016-12-10] MEDS: PRAVASTATIN SODIUM 80 MG TAB PO SCH (21:02)
[2016-12-10] MEDS: TOPIRAMATE 100 MG TAB PO SCH (21:03)
[2016-12-10] MEDS: CARVEDILOL 12.5 MG TAB PO SCH (21:03)
[2016-12-10] MEDS: GABAPENTIN 300 MG CAP PO SCH (21:03)
[2016-12-10] MEDS: FAMOTIDINE 20 MG TAB PO SCH (21:06)
[2016-12-10] MEDS: hydrOXYzine PAMOATE 25 MG CAP PO SCH (21:10)
[2016-12-10] MEDS: FLUTICASONE 50MCG/SPRAY NASAL 16GM EA NOSTRIL SCH (21:11)
[2016-12-10 23:09] VITALS: BMI 62.8
[2016-12-11] MEDS: CHLORHEXIDINE GLUCONATE 15 ML CUP MUCOUS MEM SCH ×3 (01:26→23:18)
[2016-12-11] MEDS: ACETAMINOPHEN TAB 325 MG TAB PO PRN ×2 (01:26→18:14)
[2016-12-11] MEDS: HEPARIN SODIUM,PORCINE/D5W PMX 25,000 UNIT in DEXTROSE/WATER 1 500ML.BAG IV SCH (01:41)
[2016-12-11 02:44] LABS: Creatine Kinase 26 U/L (30-135)
[2016-12-11 02:57] LABS: Creatine Kinase MB <0.2 ng/mL (0.0-2.4); Troponin I <0.012 ng/mL (0.000-0.034)
[2016-12-11] MEDS: LORazepam 2 MG/ML SYRINGE IV PRN ×3 (04:52→20:47)
[2016-12-11] MEDS: LEVOTHYROXINE 137 MCG TAB PO SCH (05:33)
[2016-12-11 07:22] LABS: Glucose,Whole Blood 101 mg/dL (75-99)
[2016-12-11] MEDS: LORazepam 1 MG TAB PO SCH ×3 (08:46→23:19)
[2016-12-11] MEDS ORDERED: CHLORHEXIDINE GLUCONATE 15 ML CUP MUCOUS MEM SCH (09:00)
[2016-12-11 09:23] LABS: Creatine Kinase 31 U/L (30-135)
[2016-12-11 09:35] LABS: Creatine Kinase MB <0.2 ng/mL (0.0-2.4); Troponin I <0.012 ng/mL (0.000-0.034)
--- NOTE | 2016-12-11 10:02 | HP ---
DATE OF ADMISSION: 12/10/2016 PRESENTING COMPLAINT: Chest pain, leg swelling. HISTORY OF PRESENTING COMPLAINT: This is a very pleasant 56-year-old patient with rather extensive medical history, chronic stable medical conditions include hypothyroid, asthma, coronary artery disease, diabetes, peripheral neuropathy, hyperlipidemia, hypertension, morbid obesity, restless leg syndrome. Patient does have a walker that she uses to get about. Cj Blankenship is the patient's legal guardian. Patient also has a diagnosis of major depression. Patient presents with chest pain and left-sided off and on present for 2 months, is a variable duration, sometimes associated with shortness of breath other times not. No obvious radiation. Patient has been seen by Cardiology in the past. ( ) patient in the hospital, she had signed out AMA on review of recent notes. Patient also noted swelling of the legs, more so of the right lower extremity. Otherwise, the patient's appetite is fair. REVIEW OF SYSTEMS: CONSTITUTIONAL: None. HEENT: None. RESPIRATORY: Shortness of breath. CARDIOVASCULAR: As above. GASTROINTESTINAL: None. GENITOURINARY: None. MUSCULOSKELETAL: Pain in different joints. DERMATOLOGICAL: None. HEMATOLOGICAL: None. LYMPHATIC: None. PSYCHIATRY: Depression, controlled. NEUROLOGICAL: Numbness and tingling in the feet. Past medical history of hypothyroid, asthma, coronary artery disease, diabetes, peripheral neuropathy, hyperlipidemia, hypertension, osteoarthritis of lumbar spine, obesity, bipolar disorder, bilateral lower extremity lymphedema, restless leg syndrome. PAST SURGICAL HISTORY: Bariatric surgery, hernia repair, right shoulder repair, 3 hernia repairs. SOCIAL HISTORY: Lives by herself. No smoking. No alcohol. Legal guardian is Cj Blankenship. FAMILY HISTORY: Lung cancer. Allergies to BUSPAR, HALDOL, IODINE, PENICILLIN, COMPAZINE, SULFA, TETANUS VACCINE AND TOXOID, STELAZINE. On examination, temperature 97.2, pulse 62, respirations 16, blood pressure 106/62, pulse ox 100% on 2 L. GENERAL APPEARANCE: Morbidly obese. BMI 64.2. Lying in bed, not in distress. EYES: Pupils equal. Conjunctivae normal. HEENT: External appearance of nose and ears normal. Oral cavity normal. NECK: Short, thick, JVD unable to assess. Mass not palpable. RESPIRATORY: Effort normal. LUNGS: Distant breath sounds. CARDIOVASCULAR: First and second sounds normal. Edema present. ABDOMEN: Large, soft. Liver and spleen not palpable. LYMPHATIC: No lymph node palpable in neck or axillae. PSYCHIATRY: Alert and oriented x3. Mood and affect normal. EXTREMITIES: Right thigh is larger than the left side. INVESTIGATIONS: White count 6, hemoglobin 11.1, platelets 259. Potassium 4.1. BUN 33, creatinine 1.21. Troponin I less than 0.012. ProBNP 189. ASSESSMENT: 1. Left-sided chest pain off and on, could be ( ) unstable angina in a patient with extensive other medical history. 2. Right thigh swelling compared to the left, rule out deep venous thrombosis. 3. Hypothyroidism. 4. Intermittent asthma, stable. 5. Coronary artery disease. 6. Hyperlipidemia. 7. Essential hypertension. 8. Primary osteoarthritis of multiple joints, bilateral. 9. Morbid obesity, body mass index greater than 60. 10. Bilateral, chronic lower extremity lymphedema. 11. Chronic restless leg syndrome. 12. Patient's legal guardian, Cj Blankenship. PLAN: Patient was put on IV heparin. Cardiology is consulted. Home medications are reviewed. Order a Doppler ultrasound of the lower extremities, rule out DVT and also order a D-dimer. Given the proBNP is only 189, CHF extremely unlikely. Cardiology is consulted. Care was discussed with the patient.
[2016-12-11] MEDS: GABAPENTIN 300 MG CAP PO SCH ×3 (11:24→23:18)
[2016-12-11] MEDS: DULoxetine HCL 60 MG CAPSULE.DR PO SCH (11:24)
[2016-12-11] MEDS: OXYBUTYNIN XL 5 MG TAB.ER.24 PO SCH (11:24)
[2016-12-11] MEDS: TOPIRAMATE 100 MG TAB PO SCH ×2 (11:25→23:19)
[2016-12-11] MEDS: FUROSEMIDE 40 MG TAB PO SCH (11:25)
[2016-12-11] MEDS: FAMOTIDINE 20 MG TAB PO SCH (11:25)
[2016-12-11] MEDS: CARVEDILOL 12.5 MG TAB PO SCH ×2 (11:25→23:18)
[2016-12-11] MEDS: NYSTATIN 100,000 UNIT/GM POWD 15 GM TOPICAL SCH ×2 (11:30→17:45)
[2016-12-11] MEDS: FLUTICASONE 50MCG/SPRAY NASAL 16GM EA NOSTRIL SCH ×2 (11:30→23:18)
[2016-12-11 12:07] LABS: Glucose,Whole Blood 133 mg/dL (75-99)
[2016-12-11 12:19] LABS: Hemoglobin A1C 5.4 % (4.2-6.1)
--- NOTE | 2016-12-11 13:23 | ECHOF ---
Referral Reason: MEASUREMENTS -------- HEIGHT: 165.1 cm WEIGHT: 175.1 kg BP: 119/68 RVIDd: 3.6 cm (< 3.3) IVSd: 1.3 cm (0.6 - 1.1) LVIDd: 4.1 cm (3.9 - 5.3) LVPWd: 1.3 cm (0.6 - 1.1) IVSs: 1.7 cm LVIDs: 2.9 cm LVPWs: 1.8 cm LA Diam: 4.1 cm (2.7 - 3.8) LAESV Index (A-L): 25.70 ml/m Ao Diam: 3.1 cm (2.0 - 3.7) AV Cusp: 2.2 cm (1.5 - 2.6) MV EXCURSION: 18.048 mm (> 18.000) MV EF SLOPE: 106 mm/s (70 - 150) EPSS: 0.6 cm MV E Wade: 1.10 m/s MV DecT: 211 ms MV A Wade: 1.20 m/s MV E/A Ratio: 0.92 AV maxP.38 mmHg AV meanP.27 mmHg RAP: 5.00 mmHg RVSP: 29.19 mmHg FINDINGS -------- Sinus rhythm. This was a technically good study. The left ventricular size is normal. There is mild concentric left ventricular hypertrophy. Overall left ventricular systolic function is normal with, an EF between 60 - 65 %. The right ventricle is mildly enlarged. Normal LA size by volume 22+/-6 ml/m2. The right atrium is normal in size. There is mild aortic valve sclerosis. There is mild aortic stenosis present. Peak/mean gradient across the Aortic Valve is 17.38mmHg / 8.27mmHg. Mild mitral annular calcification present. There is trace to mild mitral regurgitation. Trace tricuspid regurgitation present. Right ventricular systolic pressure is normal at < 35 mmHg. Trace/mild (physiologic) pulmonic regurgitation. The aortic root size is normal. The inferior vena cava is mildly dilated. There is no pericardial effusion. CONCLUSIONS -------- 1. Sinus rhythm. 2. There is mild aortic stenosis present. 3. Peak/mean gradient across the Aortic Valve is 17.38mmHg / 8.27mmHg. 4. Mild mitral annular calcification present. 5. There is trace to mild mitral regurgitation. 6. Trace tricuspid regurgitation present. 7. Right ventricular systolic pressure is normal at < 35 mmHg. 8. Trace/mild (physiologic) pulmonic regurgitation. 9. The aortic root size is normal. 10. The inferior vena cava is mildly dilated. 11. There is no pericardial effusion. 12. This was a technically good study. 13. The left ventricular size is normal. 14. There is mild concentric left ventricular hypertrophy. 15. Overall left ventricular systolic function is normal with, an EF between 60 - 65 %. 16. The right ventricle is mildly enlarged. 17. Normal LA size by volume 22+/-6 ml/m2. 18. The right atrium is normal in size. 19. There is mild aortic valve sclerosis. ADJUSTO WRITER OPERATOR: Sera Camacho RDCS
--- NOTE | 2016-12-11 15:17 | US ---
EXAMINATION TYPE: US venous doppler duplex LE BI DATE OF EXAM: 12/11/2016 2:21 PM COMPARISON: Previous exam December 09, 2016 CLINICAL HISTORY: poss dvt. edema bilateral legs, prior exam 12/09/16 SIDE PERFORMED: bilateral TECHNIQUE: The lower extremity deep venous system is examined utilizing real time linear array sonog rizwan with graded compression, doppler sonography and color-flow sonography. VESSELS IMAGED: External Iliac Vein (EIV) Common Femoral Vein Deep Femoral Vein Greater Saphenous Vein * Femoral Vein Popliteal Vein Small Saphenous Vein * Proximal Calf Veins (* superficial vessels) Right Leg: No evidence of DVT as visualized Left Leg: No evidence of DVT as visualized Grayscale, color Doppler, spectral Doppler imaging performed of the deep veins of the lower extremiti es. Left and right common femoral, superficial femoral, popliteal veins all compress normally and magno w no abnormal luminal echoes. Venous waveforms are normal. Impression: No evident deep venous thrombosis within the deep veins of the lower extremities as descr ibed.
--- NOTE | 2016-12-11 16:28 | CONS ---
DATE OF CONSULTATION: Mrs. Lerner is a 56-year-old female who was sent by Dr. Lenz to the emergency room for evaluation of swelling in the legs. This patient has multiple problems. She has a history of hypertension, hyperlipidemia, morbid obesity, restless leg syndrome and intermittent atypical chest pain. Patient has been having swelling in the legs for some time. Patient was seen by Dr. Lenz and was sent to the emergency room. Patient was admitted to the hospital. Patient denies any orthopnea or PND. She had some mild atypical chest pain in the past. This patient was admitted in October with atypical chest pain and patient signed out AGAINST MEDICAL ADVICE. At that time patient had a venous duplex study done which was negative for DVT. Patient had a prior cardiac catheterization done in 2011 which revealed mild coronary artery disease. Past medical history includes: 1. History of mild coronary artery disease. 2. Hypothyroidism. 3. Hyperlipidemia. 4. Hypertension. 5. Osteoarthritis. SURGICAL HISTORY: 1. Right shoulder repair. 2. Three hernia repairs. 3. Bariatric surgery. 4. Hernia repair. Patient's home medications include: 1. Lasix 40 mg daily. 2. Cymbalta 60 mg daily. 3. Myrbetriq 25 mg daily. 4. Neurontin. 5. Desyrel. 6. Requip. 7. Topamax. 8. Pravachol. Physical examination at present reveals a 56-year-old female who does not appear to be in any acute distress. Patient's blood pressure is 120/68 mmHg. Head/ENT examination is negative. Neck is supple. There is no increase in jugular venous pressure. Both the carotid pulses are felt. There is no bruit. Chest is symmetrical. HEART: The PMI is not felt. First and second heart sounds are normal. Lungs are clinically clear to auscultation and percussion. Abdomen is negative. EXTREMITIES: Peripheral pulsations are 2+. There is 1+ pedal edema. Patient's BNP level is normal. The cardiac enzymes are normal. Chest x-ray does not show any evidence of failure. FINAL IMPRESSION: This patient is primarily admitted with venous insufficiency. EKGs and cardiac enzymes are normal. There is no evidence of any definite congestive cardiac failure. Her BNP level is normal. We will obtain echo and Doppler study and schedule her for dobutamine echocardiographic study tomorrow.
[2016-12-11 17:02] LABS: Glucose,Whole Blood 113 mg/dL (75-99)
--- NOTE | 2016-12-11 21:32 | PN ---
DATE OF SERVICE: 12/11/2016 PRESENTING COMPLAINT: Chest pain, leg swelling. INTERVAL HISTORY: This patient presented with leg swelling. DVT was ruled out. Not felt to be CHF. Two-D results are noted. Patient is somewhat anxious today. Stress test has been ordered by Cardiology. Review of systems done for constitutional, cardiovascular, GI, pulmonary; relevant findings as above. Current medications are reviewed. On examination, temperature 98, pulse 78, respiration 18, blood pressure 113/67, pulse ox 98% on 2 L. GENERAL APPEARANCE: Lying in bed. Comfortable. EYES: Pupils equal. Conjunctivae normal. NECK: JVD unable to assess. Mass not palpable. RESPIRATORY: Effort normal. LUNGS: Distant breath sounds. CARDIOVASCULAR: First and second seconds normal. Some edema present. ABDOMEN: Soft, nontender. Liver and spleen not palpable. PSYCHIATRY: Alert and oriented x3. Mood and affect slightly anxious-appearing. INVESTIGATIONS: Two-D echo shows preserved LV function. Troponins are negative. Doppler also negative for DVT. ASSESSMENT: 1. Left-sided chest pain; could be musculoskeletal. Cardiac cause is being ruled out. 2. Bilateral lower extremity venous insufficiency. DVT ruled out. 3. Hypothyroidism. 4. Intermittent asthma, stable. 5. Coronary artery disease. 6. Hyperlipidemia. 7. Essential hypertension. 8. Primary osteoarthritis of multiple joints, bilateral. 9. Morbid obesity; body mass index greater than 60. 10. Bilateral chronic lower extremity lymphedema and venous insufficiency. 11. Chronic restless leg syndrome. 12. Patient's legal guardian is Cj Blankenship. PLAN: Care was discussed with the patient. Await stress test. Other medication and treatment plan is to continue.
[2016-12-11] MEDS: traZODone HCL 100 MG TAB PO SCH (23:19)
[2016-12-11] MEDS: hydrOXYzine PAMOATE 25 MG CAP PO SCH (23:19)
[2016-12-11] MEDS: PRAVASTATIN SODIUM 80 MG TAB PO SCH (23:19)
[2016-12-11] MEDS: LURASIDONE 80 MG TAB PO SCH (23:19)
[2016-12-12] MEDS: LORazepam 2 MG/ML SYRINGE IV PRN ×3 (02:16→18:18)
[2016-12-12] MEDS: ACETAMINOPHEN TAB 325 MG TAB PO PRN ×2 (03:58→17:02)
[2016-12-12] MEDS: FLUTICASONE 50MCG/SPRAY NASAL 16GM EA NOSTRIL SCH ×3 (05:03→22:12)
[2016-12-12] MEDS: TOPIRAMATE 100 MG TAB PO SCH ×3 (05:03→22:15)
[2016-12-12] MEDS: LEVOTHYROXINE 137 MCG TAB PO SCH (05:23)
[2016-12-12 07:19] LABS: Glucose,Whole Blood 89 mg/dL (75-99)
[2016-12-12] MEDS: DULoxetine HCL 60 MG CAPSULE.DR PO SCH (08:29)
[2016-12-12] MEDS: LORazepam 1 MG TAB PO SCH ×4 (08:29→22:14)
[2016-12-12] MEDS: GABAPENTIN 300 MG CAP PO SCH ×4 (08:29→22:14)
[2016-12-12] MEDS ORDERED: DOBUTamine DRIP for NUC MED 500 MG in DEXTROSE/WATER 1 250ML.BAG IV ONE (09:00)
[2016-12-12] MEDS ORDERED: METOPROLOL TARTRATE 5 MG/5 ML VIAL IVP ONE (09:34)
[2016-12-12] MEDS ORDERED: ATROPINE SULFATE 0.1 MG/ML 10ML SYRINGE ONE (09:34)
[2016-12-12] MEDS: NYSTATIN 100,000 UNIT/GM POWD 15 GM TOPICAL SCH ×3 (11:00→22:14)
[2016-12-12] MEDS: FUROSEMIDE 40 MG TAB PO SCH (11:00)
[2016-12-12] MEDS: OXYBUTYNIN XL 5 MG TAB.ER.24 PO SCH (11:00)
[2016-12-12] MEDS: FAMOTIDINE 20 MG TAB PO SCH (11:02)
[2016-12-12] MEDS: CHLORHEXIDINE GLUCONATE 15 ML CUP MUCOUS MEM SCH ×2 (11:02→22:00)
[2016-12-12] MEDS: CARVEDILOL 12.5 MG TAB PO SCH ×3 (11:02→22:12)
[2016-12-12 12:18] LABS: Glucose,Whole Blood 92 mg/dL (75-99)
--- NOTE | 2016-12-12 12:29 | ECHOS ---
DATE OF SERVICE: 12/12/2016 AGE: 56Y SEX: F HT: 65" WT: 386 lbs. Protocol Atul: Others: Dobutamine Stress Echo Stage: 3 Dur. of Exercise: 6:30 *Heart Rate Blood Pressure *Rest: 61 Rest: 125/64 * *Max. Achieved: 142 Maximum BP: 191/110 85% PMHR: 140 100% PMHR: 165 *METS: - INDICATIONS: Chest pain. MEDICATIONS: - Patient was given dobutamine infusion according to the standard protocol. Patient also received atropine. Patient was very anxious during the procedure. A peak heart rate of 142 was achieved. Maximum blood pressure of 191/110 mmHg was noted. Resting EKG shows normal sinus rhythm with normal LA interval and QRS duration and normal ST-T waves. No ST segment J-point depression with upsloping ST segments were noted. Occasional ventricular couplets and triplets were noted. The baseline echocardiographic images reveal normal left ventricular chamber size with normal left ventricular systolic function. At the peak dose of dobutamine infusion, normal increase in the wall thickness and contractility is noted. FINAL IMPRESSION: This dobutamine stress echocardiographic study is negative for stress-induced ischemia. EKG portion of the stress test is inconclusive to diagnose ischemia.
--- NOTE | 2016-12-12 12:29 | PN ---
This patient was seen in consultation yesterday with the symptoms of shortness of breath and chest discomfort. Patient underwent dobutamine echocardiographic study today and there was no evidence of stress-induced ischemia. There is no evidence of any significant left ventricular failure. Patient can be discharged home on the medical treatment.
[2016-12-12] MEDS ORDERED: ONDANSETRON 4 MG/2 ML VIAL IVP PRN (16:42)
[2016-12-12 17:14] LABS: Glucose,Whole Blood 131 mg/dL (75-99)
[2016-12-12] MEDS ORDERED: LORazepam 2 MG/ML SYRINGE IV STA (18:56)
[2016-12-12 21:24] LABS: Glucose,Whole Blood 119 mg/dL (75-99)
[2016-12-12] MEDS: LURASIDONE 80 MG TAB PO SCH ×2 (22:00→22:14)
[2016-12-12] MEDS: traZODone HCL 100 MG TAB PO SCH ×2 (22:00→22:15)
[2016-12-12] MEDS: hydrOXYzine PAMOATE 25 MG CAP PO SCH (22:00)
[2016-12-12] MEDS: PRAVASTATIN SODIUM 80 MG TAB PO SCH ×2 (22:01→22:14)
[2016-12-12 23:48] VITALS: RESP 18
[2016-12-13] MEDS: ACETAMINOPHEN TAB 325 MG TAB PO PRN (03:05)
[2016-12-13] MEDS: LORazepam 2 MG/ML SYRINGE IV PRN ×2 (05:12→12:16)
[2016-12-13] MEDS: LEVOTHYROXINE 137 MCG TAB PO SCH (05:12)
[2016-12-13 06:52] LABS: Glucose,Whole Blood 100 mg/dL (75-99)
[2016-12-13 08:12] VITALS: BP 98/45; PULSE 56; TEMP 98.2
[2016-12-13] MEDS: GABAPENTIN 300 MG CAP PO SCH (09:42)
[2016-12-13] MEDS: FLUTICASONE 50MCG/SPRAY NASAL 16GM EA NOSTRIL SCH (09:42)
[2016-12-13] MEDS: CHLORHEXIDINE GLUCONATE 15 ML CUP MUCOUS MEM SCH (09:42)
[2016-12-13] MEDS: DULoxetine HCL 60 MG CAPSULE.DR PO SCH (09:42)
[2016-12-13] MEDS: LORazepam 1 MG TAB PO SCH (09:42)
[2016-12-13] MEDS: OXYBUTYNIN XL 5 MG TAB.ER.24 PO SCH (09:42)
[2016-12-13] MEDS: TOPIRAMATE 100 MG TAB PO SCH (09:42)
[2016-12-13] MEDS: FUROSEMIDE 40 MG TAB PO SCH (09:43)
[2016-12-13] MEDS: FAMOTIDINE 20 MG TAB PO SCH (09:43)
[2016-12-13] MEDS: CARVEDILOL 12.5 MG TAB PO SCH (09:43)
[2016-12-13] MEDS: NYSTATIN 100,000 UNIT/GM POWD 15 GM TOPICAL SCH (12:11)
--- NOTE | 2016-12-13 21:29 | PN ---
DATE OF SERVICE: 12/12/2016 PRESENTING COMPLAINT: Chest pain. INTERVAL HISTORY: This patient was seen by me yesterday on 12/12/2016 DVT was ruled out, not felt to be congestive heart failure. Stress test came back negative for cardiology. Per patient's son, he is manifesting suicidal ideations. ( ) told the tech that it takes the heart rate to be ( ) mind gets blown and then she told a nurse she wanted to . Hence, the plan she is to get a psych placement. Review of systems done for constitutional, cardiovascular, GI, pulmonary; relevant findings as above. Current medications are reviewed. On examination, temperature 98, pulse 70, respiration 16, blood pressure 127/77, pulse ox 94% on room air. GENERAL APPEARANCE: Lying in bed, comfortable. EYES: Pupils equal. Conjunctivae normal. NECK: JVD not raised. Mass not palpable. RESPIRATORY: Effort normal. LUNGS: Distant breath sounds. CARDIOVASCULAR: First and second sounds normal. No edema. ABDOMEN: Soft, nontender. Liver and spleen not palpable. PSYCHIATRY: Very anxious -appearing. States she is scared. INVESTIGATIONS: Dobutamine stress echocardiogram was negative. ASSESSMENT: 1. Left-sided chest pain could be musculoskeletal with negative stress test. 2. Bilateral lower extremity venous insufficiency. 3. Hypothyroidism. 4. Intermittent asthma, stable. 5. Coronary artery disease. 6. Hyperlipidemia. 7. Essential hypertension. 8. Primary osteoarthritis of multiple joints, bilateral. 9. Morbid obesity, body mass index greater than 60. 10. Chronic lower extremity lymphedema and venous insufficiency. 11. Chronic restless leg syndrome. 12. Legal guardian is Cj Berkowitz. 13. Bipolar disorder, with acute flare-up suicidal ideation, depression. PLAN: Because of patient's body mass index, the psych unit cannot take the patient, hence arrangements are being made for the patient to be transferred up to the psych unit, Cert was signed by me. Did talk to the nursing about the same. Total time spent in patient care was about 40 minutes including 20-25 minutes of discussion about planning of the patient. Patient needs to be inpatient. Definitely unstable to be discharged given the psych. The patient has a sitter at the bedside. Follow.
--- NOTE | 2016-12-13 21:31 | DS ---
DATE OF ADMISSION: 12/12/2016 DATE OF DISCHARGE: 12/13/2016 FINAL DIAGNOSES: 1. Left anterior chest wall pain, probably musculoskeletal. 2. Bilateral lower extremity venous insufficiency. Deep venous thrombosis ruled out. 3. Hypothyroidism. 4. Intermittent asthma, stable. 5. Coronary artery disease. 6. Hyperlipidemia. 7. Essential hypertension. 8. Primary osteoarthritis of multiple joints bilaterally. 9. Morbid obesity; body mass index greater than 60. 10. Bilateral chronic lower extremity lymphedema and venous insufficiency. 11. Chronic restless leg syndrome. 12. Patient's legal guardian is Cj Blankenship. 13. Acute flareup of bipolar disorder with suicidal ideation. HOSPITAL COURSE: This patient presented with chest pain. Dobutamine stress echocardiogram was negative. Lower extremity Dopplers were negative for DVT. Patient was manifesting symptoms of wanting to blow up her brain and wanted to kill herself, stating to the nurse yet again; hence patient will be transferred to the psych facility. DISCHARGE MEDICATIONS: 1. Neurontin 600 mg p.o. t.i.d. 2. Coreg 25 mg p.o. b.i.d. 3. Pravastatin 80 mg p.o. at bedtime. 4. Synthroid 137 mcg p.o. daily. 5. Cymbalta 60 mg p.o. daily. 6. Requip 3 mg p.o. at bedtime. 7. Ativan 1 mg p.o. t.i.d. 8. Lasix 40 mg p.o. daily. 9. Latuda 80 mg p.o. at bedtime. 10. Multivitamin 1 tablet p.o. daily. 11. Nystatin topically b.i.d. 12. Topamax 100 mg p.o. b.i.d. 13. Vistaril 100 mg p.o. at bedtime. 14. Requip 2 mg p.o. daily. 15. Motrin 600 mg p.o. q.6 p.r.n. 16. Desyrel 200 mg p.o. at bedtime. 17. Flonase 1 spray each nostril b.i.d. 18. Peridex 15 mL p.o. daily. 19. Myrbetriq 25 mg p.o. daily. DISPOSITION: Outpatient psych unit. Follow up with Dr. Bhakta. Patient to follow with a psychiatrist there. On examination, lungs are clear. CARDIOVASCULAR: First and second sounds normal. Patient is very anxious.
== END 2016-12-13 13:15 | disposition still patient (30) | DRG 313 ==
LOC: EC 15:47 → 3OBS 18:32 → OBSVTOIN 12-12 16:49
PROVIDERS: ADMIT Hospitalist; ATTEND Hospitalist
DX: R07.89 Other chest pain (principal); I25.10 Atherosclerotic heart disease of native coronary artery without angina pectoris; R45.851 Suicidal ideations; E11.42 Type 2 diabetes mellitus with diabetic polyneuropathy; Z68.44 Body mass index [BMI] 60.0-69.9, adult; E66.01 Morbid (severe) obesity due to excess calories; I10 Essential (primary) hypertension; E03.9 Hypothyroidism, unspecified; J45.20 Mild intermittent asthma, uncomplicated; I87.2 Venous insufficiency (chronic) (peripheral); E78.5 Hyperlipidemia, unspecified; G25.81 Restless legs syndrome; F31.9 Bipolar disorder, unspecified; M19.91 Primary osteoarthritis, unspecified site; M47.816 Spondylosis without myelopathy or radiculopathy, lumbar region; I89.0 Lymphedema, not elsewhere classified; Z98.84 Bariatric surgery status; Z88.0 Allergy status to penicillin; Z88.2 Allergy status to sulfonamides; Z88.7 Allergy status to serum and vaccine; Z88.8 Allergy status to other drugs, medicaments and biological substances; Z96.651 Presence of right artificial knee joint; Z79.899 Other long term (current) drug therapy
CPT/HCPCS: 36415; 71020; 80053; 82550; 82553; 83036; 83735; 83880; 84484; 85025; 85610; 85730; 93005; 93017; 93306; 93350; 93970; 96365; 96366; 96376; 99285

== ENCOUNTER 2017-03-14 14:23 | Emergency (ER) | payer MEDICARE, OTHER ==
--- NOTE | 2017-03-14 15:30 | XR ---
EXAMINATION TYPE: XR foot complete RT DATE OF EXAM: 03/14/2017 CLINICAL HISTORY: Anterior foot pain when walking. TECHNIQUE: Frontal, lateral, and oblique images of the right foot are obtained. COMPARISON: Right foot x-ray August 24, 2015. FINDINGS: Osseous structures are demineralized which is noted to lower radiographic sensitivity. Ther e is no acute fracture/dislocation evident in the right foot. Marked flexion in varus positioning of distal third through fifth toes is redemonstrated. There is mild diffuse subcutaneous edema but this is significantly improved versus prior. Small inferior calcaneal spur is redemonstrated. IMPRESSION: There is demineralization with small inferior calcaneal spur redemonstrated.
--- NOTE | 2017-03-14 15:50 | ED ---
General Adult HPI - General Chief complaint: Extremity Injury, Lower Stated complaint: rt foot injury Time Seen by Provider: 03/14/17 15:07 Source: patient, RN notes reviewed Mode of arrival: wheelchair Limitations: physical limitation - History of Present Illness Initial comments: Patient is a 57-year-old female who presents emergency room today with a chief complaint of injury to the right foot. She does admit that she was getting out of a car earlier today and she felt something pop in the top of the right foot. She does admit that she's had some pain locally over the first through third metatarsals. She states is worse with certain movements. She denies any other complaints or associated symptoms. Patient denies any recent fever, chills, shortness of breath, chest pain, back pain, abdominal pain, nausea or vomiting, numbness or tingling, dysuria or hematuria, constipation or diarrhea, headaches or visual changes, or any other complaints. - Related Data Home Medications Medication Instructions Recorded Confirmed Gabapentin [Neurontin] 600 mg PO TID@0900,1700,209907/09/15 12/10/16 Carvedilol 25 mg PO BID@09,209910/10/15 12/10/16 Pravastatin Sodium 80 mg PO HS@209910/10/15 12/10/16 Levothyroxine Sodium [Synthroid] 137 mcg PO DAILY@0630 11/05/15 12/10/16 DULoxetine HCL [Cymbalta] 60 mg PO DAILY@0905/05/16 12/10/16 rOPINIRole HCL [Requip] 3 mg PO HS@209905/05/16 12/10/16 LORazepam [Ativan] 1 mg PO TID@0900,1700,209908/15/16 12/10/16 Furosemide [Lasix] 40 mg PO DAILY@89910/25/16 12/10/16 Lurasidone [Latuda] 80 mg PO HS@209910/25/16 12/10/16 Multivitamins, Thera [Multivitamin 1 tab PO DAILY@89910/25/16 12/10/16 (formulary)] Nystatin [Nystop] 1 applic TOPICAL BID@0900,1700 10/25/16 12/10/16 Topiramate [Topamax] 100 mg PO BID@0900,2100 10/25/16 12/10/16 hydrOXYzine PAMOATE [Vistaril] 100 mg PO HS@2100 10/30/16 12/10/16 rOPINIRole HCL [Requip] 2 mg PO DAILY@1300 10/30/16 12/10/16 Ibuprofen [Motrin] 600 mg PO Q6H PRN 11/03/16 12/10/16 traZODone HCL [Desyrel] 200 mg PO HS 11/03/16 12/10/16 Fluticasone Nasal [place] [Flonase 1 spray EA NOSTRIL BID@0900,2100 11/19/1612/10 Nasal [place]] Mirabegron [Myrbetriq] 25 mg PO DAILY 12/10/16 12/10/16 Previous Rx's Medication Instructions Recorded Chlorhexidine Gluconate [Peridex] 15 ml PO DAILY #475 ml 12/09/16 Allergies Allergy/AdvReac Type Severity Reaction Status Date / Time buspirone [From BuSpar] Allergy Unknown Verified 03/14/17 14:28 haloperidol [From Haldol] Allergy Swelling Verified 03/14/17 14:28 haloperidol lactate Allergy Swelling Verified 03/14/17 14:28 [From Haldol] iodine Allergy Swelling Verified 03/14/17 14:28 Penicillins Allergy Swelling Verified 03/14/17 14:28 prochlorperazine edisylate Allergy Rash/Hives Verified 03/14/17 14:28 [From Compazine] prochlorperazine maleate Allergy Rash/Hives Verified 03/14/17 14:28 [From Compazine] Sulfa (Sulfonamide Allergy Rash/Hives Verified 03/14/17 14:28 Antibiotics) Tetanus Vaccines and Toxoid Allergy Rash/Hives Verified 03/14/17 14:28 [Tetanus Vaccines & Toxoid] trifluoperazine HCl Allergy Unknown Verified 03/14/17 14:28 [From Stelazine] Review of Systems ROS Statement: Those systems with pertinent positive or pertinent negative responses have been documented in the HPI. ROS Other: All systems not noted in ROS Statement are negative. Past Medical History Past Medical History: Asthma, Coronary Artery Disease (CAD), Diabetes Mellitus, Hyperlipidemia, Hypertension, Musculoskeletal Disorder, Osteoarthritis (OA), Thyroid Disorder Additional Past Medical History / Comment(s): Morbid obesity History of Any Multi-Drug Resistant Organisms: None Reported Past Surgical History: Bariatric Surgery, Hernia Repair, Orthopedic Surgery Additional Past Surgical History / Comment(s): Total Right knee replacement, 3 hernia repairs. Left hip repair Past Anesthesia/Blood Transfusion Reactions: No Reported Reaction Past Psychological History: Anxiety, Bipolar, Depression Smoking Status: Never smoker Past Alcohol Use History: None Reported Past Drug Use History: None Reported - Past Family History Mother Family Medical History: Cancer Additional Family Medical History / Comment(s): lung cancer Father Additional Family Medical History / Comment(s): "my dad from a blood clot" patient is unsure where the blood clot was. Brother(s) Family Medical History: Diabetes Mellitus Sister(s) Additional Family Medical History / Comment(s): "her heart races too fast" General Exam - General Exam Comments Initial Comments: General: The patient is awake and alert, in no distress, and does not appear acutely ill. Neck: The neck is supple, there is no tenderness or JVD. Cardiovascular: There is a regular rate and rhythm. No murmur, rub or gallop is appreciated. Respiratory: Lungs are clear to auscultation, respirations are non-labored, breath sounds are equal. No wheezes, stridor, rales, or rhonchi. Musculoskeletal: Normal appearance of the right foot no obvious deformity. Does have mild tenderness over the first, second and third metatarsals. No tenderness down into the digits. No tenderness to the right ankle. Shows full range of motion. Sensations intact pulses equal bilaterally 2+. Neurological: A&O x 3. CN II-XII intact, There are no obvious motor or sensory deficits. Coordination appears grossly intact. Speech is normal. Skin: Skin is warm and dry and no rashes or lesions are noted. Psychiatric: Normal mood and affect. Limitations: physical limitation Course Vital Signs 03/14/17 14:25 Temperature 97.5 F L Pulse Rate 84 Respiratory 20 Rate Blood Pressure 125/75 O2 Sat by Pulse 98 Oximetry Medical Decision Making - Medical Decision Making Patient's x-ray reviewed and is negative for any acute fracture or dislocation. Results were discussed with the patient. Patient will be discharged home advised continue to ice elevate the affected area and to follow-up with family doctor or orthopedics if symptoms persist over the next 7-10 days. Disposition Clinical Impression: Foot sprain Disposition: HOME SELF-CARE Condition: Good Instructions: Foot Sprain (ED) Additional Instructions: Please continue to ice elevate the affected area. Please follow-up the family doctor or orthopedics in 7-10 days if symptoms persist for repeat x-rays as discussed. Referrals: Bharti Mendoza MD [Primary Care Provider] - 1-2 days Time of Disposition: 15:50
[2017-03-14 16:18] VITALS: BP 132/68; PULSE 72; RESP 18; TEMP 97.8
== END 2017-03-14 16:10 | disposition home or self-care (01) ==
LOC: EC 14:23
DX: S93.601A Unspecified sprain of right foot, initial encounter (principal); E78.5 Hyperlipidemia, unspecified; I10 Essential (primary) hypertension; J45.909 Unspecified asthma, uncomplicated; E07.9 Disorder of thyroid, unspecified; F31.9 Bipolar disorder, unspecified; F41.9 Anxiety disorder, unspecified; E66.01 Morbid (severe) obesity due to excess calories; Z79.51 Long term (current) use of inhaled steroids; Z79.899 Other long term (current) drug therapy; Z88.0 Allergy status to penicillin; Z88.2 Allergy status to sulfonamides; Z88.7 Allergy status to serum and vaccine; Z88.8 Allergy status to other drugs, medicaments and biological substances; Z91.048 Other nonmedicinal substance allergy status; Z68.43 Body mass index [BMI] 50.0-59.9, adult; X50.9XXA Other and unspecified overexertion or strenuous movements or postures, initial encounter; Y93.89 Activity, other specified
CPT/HCPCS: 99283

== ENCOUNTER 2017-03-29 18:00 | Observation (INO) | payer MEDICARE, OTHER ==
[2017-03-29 18:41] LABS: Basophils % (A) 1 %; CH 29.6; Eosinophils # (A) 0.1 k/uL (0-0.7); Eosinophils % (A) 2 %; HCT 34.1 % (34.0-46.0); HDW 2.69; HGB 11.1 gm/dL (11.4-16.0); Luc # (Auto) 0.21; Luc % (Auto) 3; Lymphocytes # (A) 1.5 k/uL (1.0-4.8); Lymphocytes % (A) 23 %; MCH 29.4 pg (25.0-35.0); MCHC 32.6 g/dL (31.0-37.0); MCV 90.1 fL (80.0-100.0); Mean Platelet Volume 8.3; Monocytes # (A) 0.4 k/uL (0-1.0); Monocytes % (A) 6 %; Neutrophils # (A) 4.2 k/uL (1.3-7.7); Neutrophils % (A) 65 %; RBC 3.78 m/uL (3.80-5.40); RDW 15.2 % (11.5-15.5); WBC 6.5 k/uL (3.8-10.6)
[2017-03-29 18:48] LABS: ALT 30 U/L (9-52); AST 20 U/L (14-36); Alkaline Phosphatase 79 U/L (38-126); Anion Gap 9 mmol/L; Blood Urea Nitrogen 22 mg/dL (7-17); Calcium 8.9 mg/dL (8.4-10.2); Carbon Dioxide 24 mmol/L (22-30); Chloride 108 mmol/L (98-107); Glucose 89 mg/dL (74-99); Magnesium 2.2 mg/dL (1.6-2.3); Non-African American GFR(MDRD) >60 (>60 ml/min/1.73 sqM); Sodium 141 mmol/L (137-145); Total Bilirubin 0.1 mg/dL (0.2-1.3); Total Protein 5.9 g/dL (6.3-8.2)
[2017-03-29 18:50] LABS: Partial Thromboplastin Time 22.7 sec (22.0-30.0)
[2017-03-29 18:53] LABS: Prothrombin Time 9.8 sec (9.0-12.0)
[2017-03-29 18:59] LABS: Creatine Kinase 28 U/L (30-135)
[2017-03-29 19:13] LABS: Creatine Kinase MB 0.4 ng/mL (0.0-2.4); Troponin I <0.012 ng/mL (0.000-0.034)
[2017-03-29] MEDS ORDERED: RX INFO: IV CONTRAST WAS GIVEN 1 EACH MISC MISCELLANE PRN (19:29)
[2017-03-29] MEDS ORDERED: FAMOTIDINE 20 MG/2 ML VIAL IV STA (19:30)
[2017-03-29] MEDS ORDERED: diphenhydrAMINE 50 MG/ML 1 ML VIAL IVP STA (19:30)
[2017-03-29] MEDS ORDERED: methylPREDNISolone SOD SUCCI 125 MG/2 ML VIAL IV STA (19:30)
--- NOTE | 2017-03-29 19:52 | XR ---
EXAMINATION TYPE: XR chest 2V DATE OF EXAM: 03/29/2017 COMPARISON: 12/10/2016 HISTORY: Chest pain TECHNIQUE: Frontal and lateral views of the chest are obtained. FINDINGS: There is no heart failure nor confluent pneumonic infiltrate. Heart size is normal. Exam i s limited slightly by rotation. There is no sign of pleural effusion. There is coarsening of intersti tial markings. Bony thorax appears intact. IMPRESSION: There is probably some pulmonary fibrosis. No change compared to old exam. No gross hear t failure.
--- NOTE | 2017-03-29 20:28 | CT ---
EXAMINATION TYPE: CT angio chest DATE OF EXAM: 03/29/2017 8:20 PM COMPARISON: NONE HISTORY: Chest pain today. CT DLP: 754.90 mGycm Automated exposure control for dose reduction was used. CONTRAST: CTA scan of the thorax is performed with IV Contrast, patient injected with 100 mL of Omnipaque 350, pulmonary embolism protocol. There are 3-D post processed images.. FINDINGS: The lungs are clear of consolidation. There is no pleural effusion. Heart is enlarged. There is no si gn of aortic aneurysm or dissection. Ascending aorta measures 3.3 cm. I see no filling defects in the pulmonary arteries. There is no mediastinal adenopathy. There are no hilar masses. There is spurring in the thoracic spine. IMPRESSION: NO EVIDENCE OF PULMONARY EMBOLISM. SPONDYLOTIC CHANGES IN THE THORACIC SPINE. CARDIOMEGALY
[2017-03-29] MEDS ORDERED: NALOXONE 0.4 MG/ML 1 ML VIAL IV PRN (21:21)
[2017-03-29] MEDS ORDERED: MORPHINE SULFATE 4 MG/ML SYRINGE IV PRN (21:21)
[2017-03-29] MEDS ORDERED: DEXTROSE 5%-0.45% NACL 1,000 ML IV SCH (21:30)
--- NOTE | 2017-03-29 21:49 | ED ---
Chest Pain HPI - General Chief Complaint: Chest Pain Stated Complaint: chest pain Time Seen by Provider: 03/29/17 18:14 Source: patient, EMS, RN notes reviewed, old records reviewed Mode of arrival: EMS Limitations: no limitations - History of Present Illness Initial Comments: 57 female presents with chief complaint of chest pain. Patient reports a sharp pain that started at 5 PM. Patient was at rest, denies trauma. Pain radiates to her neck and shoulder. When asked to point where the pain is most severe she does point to her neck. It states the pain that radiates to her left arm and left lateral chest wall. She denies any nausea or vomiting. Denies shortness of breath. States she had a stress test in December which was normal. She does have a history of hypertension, hypercholesterol, and congestive heart failure. She denies any fever or chills. Denies abdominal pain. Patient is coming from a custodial. - Related Data Home Medications Medication Instructions Recorded Confirmed Gabapentin [Neurontin] 600 mg PO QID 07/09/15 03/29/17 Carvedilol 25 mg PO BID 10/10/15 03/29/17 Levothyroxine Sodium [Synthroid] 137 mcg PO DAILY 11/05/15 03/29/17 DULoxetine HCL [Cymbalta] 60 mg PO DAILY 05/05/16 03/29/17 rOPINIRole HCL [Requip] 3 mg PO HS 05/05/16 03/29/17 Furosemide [Lasix] 40 mg PO DAILY 10/25/16 03/29/17 Nystatin [Nystop] 1 applic TOPICAL BID 10/25/16 03/29/17 Topiramate [Topamax] 100 mg PO BID 10/25/16 03/29/17 rOPINIRole HCL [Requip] 2 mg PO QAM 10/30/16 03/29/17 Ibuprofen [Motrin] 600 mg PO QID 11/03/16 03/29/17 traZODone HCL [Desyrel] 200 mg PO HS 11/03/16 03/29/17 Fluticasone Nasal [place] [Flonase 1 spray EA NOSTRIL BID 11/19/16 03/29/17 Nasal [place]] Mirabegron [Myrbetriq] 25 mg PO DAILY 12/10/16 03/29/17 Allopurinol [Zyloprim] 100 mg PO BID 03/29/17 03/29/17 Cyanocobalamin (Vitamin B-12) 1,000 mcg PO DAILY 03/29/17 03/29/17 [Vitamin B-12] Ergocalciferol [Vitamin D2] 50,000 unit PO TH 03/29/17 03/29/17 Famotidine [Pepcid] 20 mg PO DAILY 03/29/17 03/29/17 Ferrous Sulfate [Feosol] 325 mg PO BID 03/29/17 03/29/17 Fexofenadine HCl [Lani Allergy] 180 mg PO DAILY 03/29/17 03/29/17 Lurasidone HCl [Latuda] 120 mg PO W/SUPPER 03/29/17 03/29/17 Simvastatin [Zocor] 40 mg PO HS 03/29/17 03/29/17 hydrOXYzine PAMOATE [Vistaril] 25 mg PO HS 03/29/17 03/29/17 Allergies Allergy/AdvReac Type Severity Reaction Status Date / Time buspirone [From BuSpar] Allergy Unknown Verified 03/29/17 18:08 haloperidol [From Haldol] Allergy Swelling Verified 03/29/17 18:08 iodine Allergy Swelling Verified 03/29/17 18:08 Penicillins Allergy Swelling Verified 03/29/17 18:08 prochlorperazine Allergy Rash/Hives Verified 03/29/17 18:53 Sulfa (Sulfonamide Allergy Rash/Hives Verified 03/29/17 18:08 Antibiotics) Tetanus Vaccines and Toxoid Allergy Rash/Hives Verified 03/29/17 18:08 [Tetanus Vaccines & Toxoid] trifluoperazine HCl Allergy Unknown Verified 03/29/17 18:08 [From Stelazine] Review of Systems ROS Statement: Those systems with pertinent positive or pertinent negative responses have been documented in the HPI. ROS Other: All systems not noted in ROS Statement are negative. EKG Findings - EKG Comments: EKG Findings:: EKG shows normal sinus rhythm, ventricular is 65, W[place] interval 150 , QRS duration 94, QTC 426, there is no ST segment elevation, no T-wave abnormality Past Medical History Past Medical History: Asthma, Coronary Artery Disease (CAD), Diabetes Mellitus, Hyperlipidemia, Hypertension, Musculoskeletal Disorder, Osteoarthritis (OA), Thyroid Disorder Additional Past Medical History / Comment(s): Morbid obesity History of Any Multi-Drug Resistant Organisms: None Reported Past Surgical History: Bariatric Surgery, Hernia Repair, Orthopedic Surgery Additional Past Surgical History / Comment(s): Total Right knee replacement, 3 hernia repairs. Left hip repair Past Anesthesia/Blood Transfusion Reactions: No Reported Reaction Past Psychological History: Anxiety, Bipolar, Depression Smoking Status: Never smoker Past Alcohol Use History: None Reported Past Drug Use History: None Reported - Past Family History Mother Family Medical History: Cancer Additional Family Medical History / Comment(s): lung cancer Father Additional Family Medical History / Comment(s): "my dad from a blood clot" patient is unsure where the blood clot was. Brother(s) Family Medical History: Diabetes Mellitus Sister(s) Additional Family Medical History / Comment(s): "her heart races too fast" General Exam Limitations: no limitations General appearance: alert, in no apparent distress, obese Head exam: Present: atraumatic, normocephalic Eye exam: Present: normal appearance, PERRL ENT exam: Present: normal exam, mucous membranes moist Neck exam: Present: normal inspection, tenderness (Tenderness, over the left lateral trapezius) Respiratory exam: Present: normal lung sounds bilaterally. Absent: respiratory distress Cardiovascular Exam: Present: regular rate, normal rhythm GI/Abdominal exam: Present: soft. Absent: distended, tenderness Extremities exam: Present: normal inspection, normal capillary refill, pedal edema (Trace) Neurological exam: Present: alert, oriented X3. Absent: motor sensory deficit Psychiatric exam: Present: normal affect, normal mood Skin exam: Present: warm, dry. Absent: cyanosis, diaphoretic Course Vital Signs 03/29/17 18:04 Temperature 97.7 F Pulse Rate 75 Respiratory 18 Rate Blood Pressure 127/82 O2 Sat by Pulse 96 Oximetry - Reevaluation(s) Reevaluation #1: 03/29/17 21:46 Patient remains stable in the emergency department, on reevaluation. Chest Pain MDM - MDM 57 yo female presenting with chief complaint left-sided chest pain. Patient's pain is atypical, sharp left lateral chest wall and left trapezius muscle. Patient is not a great historian. EKG is nonischemic. Chest x-ray shows pulmonary fibrosis with no acute findings, patient's d-dimer is elevated and CT angiography is obtained which is negative for pulmonary embolism. Cardiac enzymes are negative initially. Given the sudden onset prior to arrival, patient will be placed in observation for serial cardiac enzymes. Cardiology will be placed on consult. Patient did have a stress test in December which have EKG changes but no evidence of echo of ischemia. Diagnosis: Chest pain Disposition Clinical Impression: Chest pain Disposition: ADMITTED IP TO THIS HOSP Condition: Stable Referrals: Nell Francois MD [Primary Care Provider] - 1-2 days Decision to Admit Reason: Admit from EC Decision Date: 03/29/17 Decision Time: 21:00
[2017-03-29] MEDS ORDERED: ASPIRIN 325 MG TAB PO STA (21:51)
[2017-03-29 23:05] VITALS: BMI 59.1
[2017-03-30 01:49] LABS: Creatine Kinase 28 U/L (30-135)
[2017-03-30 02:02] LABS: Creatine Kinase MB 0.5 ng/mL (0.0-2.4); Troponin I <0.012 ng/mL (0.000-0.034)
[2017-03-30] MEDS: NITROGLYCERIN OINT 1 INCH/GM PACKET TOPICAL SCH ×2 (03:38→14:54)
[2017-03-30] MEDS ORDERED: LEVOTHYROXINE 137 MCG TAB PO SCH (06:30)
[2017-03-30 07:02] LABS: Glucose,Whole Blood 123 mg/dL (75-99)
[2017-03-30] MEDS ORDERED: CARVEDILOL 12.5 MG TAB PO SCH (07:30)
[2017-03-30 07:38] LABS: Creatine Kinase 25 U/L (30-135)
[2017-03-30 07:50] LABS: Creatine Kinase MB 0.3 ng/mL (0.0-2.4); Troponin I <0.012 ng/mL (0.000-0.034)
[2017-03-30 08:48] VITALS: RESP 18
[2017-03-30] MEDS: GABAPENTIN 300 MG CAP PO SCH ×2 (08:55→14:54)
[2017-03-30] MEDS ORDERED: FUROSEMIDE 40 MG TAB PO SCH (09:00)
[2017-03-30] MEDS ORDERED: NYSTATIN 100,000 UNIT/GM POWD 15 GM TOPICAL SCH (09:00)
[2017-03-30] MEDS ORDERED: FAMOTIDINE 20 MG TAB PO SCH (09:00)
[2017-03-30] MEDS ORDERED: DULoxetine HCL 60 MG CAPSULE.DR PO SCH (09:00)
--- NOTE | 2017-03-30 11:05 | P.CRDCN ---
History of Present Illness Consult date: 03/30/17 History of present illness: This is Dr. Ibrahim dictating a consultation on Mrs. Magda Lerner this is a 56-year-old female with history of mild coronary artery disease, hypothyroidism, hyperlipidemia and hypertension who follows regularly with Dr. Feldman. Patient was here in December with atypical chest pain and had a dobutamine stress echo which was normal. She came in with the complaints of pain on the left lower chest area, almost and axilla. She thinks she had a gas-like discomfort which it did not go away with Tums. Today she is feeling better. Her cardiac enzymes and EKGs are normal. Patient wants to go back to [facility]. From Cardec standpoint, patient could be discharged home. Follow-up with Dr. Feldman as an outpatient. Review of Systems As per the chart Past Medical History Past Medical History: Asthma, Coronary Artery Disease (CAD), Diabetes Mellitus, Hyperlipidemia, Hypertension, Musculoskeletal Disorder, Osteoarthritis (OA), Thyroid Disorder Additional Past Medical History / Comment(s): Morbid obesity History of Any Multi-Drug Resistant Organisms: None Reported Past Surgical History: Bariatric Surgery, Hernia Repair, Orthopedic Surgery Additional Past Surgical History / Comment(s): Total Right knee replacement, 3 hernia repairs. Left hip repair Past Anesthesia/Blood Transfusion Reactions: No Reported Reaction Past Psychological History: Anxiety, Bipolar, Depression Additional Psychological History / Comment(s): borderline personality disorder Smoking Status: Never smoker Past Alcohol Use History: None Reported Past Drug Use History: None Reported - Past Family History Mother Family Medical History: Cancer Additional Family Medical History / Comment(s): lung cancer Father Additional Family Medical History / Comment(s): "my dad from a blood clot" patient is unsure where the blood clot was. Brother(s) Family Medical History: Diabetes Mellitus Sister(s) Additional Family Medical History / Comment(s): "her heart races too fast" Medications and Allergies Home Medications Medication Instructions Recorded Confirmed Type Gabapentin [Neurontin] 600 mg PO QID 07/09/15 03/29/17 History Carvedilol 25 mg PO BID 10/10/15 03/29/17 History Levothyroxine Sodium [Synthroid] 137 mcg PO DAILY 11/05/15 03/29/17 History DULoxetine HCL [Cymbalta] 60 mg PO DAILY 05/05/16 03/29/17 History rOPINIRole HCL [Requip] 3 mg PO HS 05/05/16 03/29/17 History Furosemide [Lasix] 40 mg PO DAILY 10/25/16 03/29/17 History Nystatin [Nystop] 1 applic TOPICAL BID 10/25/16 03/29/17 History Topiramate [Topamax] 100 mg PO BID 10/25/16 03/29/17 History rOPINIRole HCL [Requip] 2 mg PO QAM 10/30/16 03/29/17 History Ibuprofen [Motrin] 600 mg PO QID 11/03/16 03/29/17 History traZODone HCL [Desyrel] 200 mg PO HS 11/03/16 03/29/17 History Fluticasone Nasal [place] [Flonase 1 spray EA NOSTRIL BID 11/19/16 03/29/17 History Nasal [place]] Mirabegron [Myrbetriq] 25 mg PO DAILY 12/10/16 03/29/17 History Allopurinol [Zyloprim] 100 mg PO BID 03/29/17 03/29/17 History Cyanocobalamin (Vitamin B-12) 1,000 mcg PO DAILY 03/29/17 03/29/17 History [Vitamin B-12] Ergocalciferol [Vitamin D2] 50,000 unit PO TH 03/29/17 03/29/17 History Famotidine [Pepcid] 20 mg PO DAILY 03/29/17 03/29/17 History Ferrous Sulfate [Feosol] 325 mg PO BID 03/29/17 03/29/17 History Fexofenadine HCl [Lani Allergy] 180 mg PO DAILY 03/29/17 03/29/17 History Lurasidone HCl [Latuda] 120 mg PO W/SUPPER 03/29/17 03/29/17 History Simvastatin [Zocor] 40 mg PO HS 03/29/17 03/29/17 History hydrOXYzine PAMOATE [Vistaril] 25 mg PO HS 03/29/17 03/29/17 History Allergies Allergy/AdvReac Type Severity Reaction Status Date / Time buspirone [From BuSpar] Allergy Unknown Verified 03/29/17 18:08 haloperidol [From Haldol] Allergy Swelling Verified 03/29/17 18:08 iodine Allergy Swelling Verified 03/29/17 18:08 Penicillins Allergy Swelling Verified 03/29/17 18:08 prochlorperazine Allergy Rash/Hives Verified 03/29/17 18:53 Sulfa (Sulfonamide Allergy Rash/Hives Verified 03/29/17 18:08 Antibiotics) Tetanus Vaccines and Toxoid Allergy Rash/Hives Verified 03/29/17 18:08 [Tetanus Vaccines & Toxoid] trifluoperazine HCl Allergy Unknown Verified 03/29/17 18:08 [From Stelazine] Physical Exam Vitals: Vital Signs Temp Pulse Pulse Pulse Resp BP BP 03/30/17 08:00 98.3 F 72 66 18 153/79 03/30/17 03:53 66 16 03/30/17 03:40 68 16 128/68 03/29/17 23:25 69 16 03/29/17 22:30 98.4 F 69 16 123/71 03/29/17 22:25 97.4 F L 73 18 105/58 03/29/17 22:00 65 18 105/68 03/29/17 18:04 97.7 F 75 18 127/82 Pulse Ox 03/30/17 08:00 99 03/30/17 03:53 03/30/17 03:40 100 03/29/17 23:25 03/29/17 22:30 98 03/29/17 22:25 97 03/29/17 22:00 98 03/29/17 18:04 96 Intake and Output 03/29/17 03/30/17 03/30/17 22:59 06:59 14:59 Other: Voiding Method Toilet Toilet # Voids 2 Weight 161.025 kg 161.025 kg GENERAL EXAM: Patient is alert and oriented and doesn't appear to be in any acute distress HEENT: Normocephalic. Normal reaction of pupils, equal size, normal range of extraocular motion. No erythema or exudates in the throat. NECK: No masses, no nuchal rigidity. CHEST: No chest wall deformity. LUNGS: Equal air entry with no crackles or wheeze. HEART: S1 and S2 normal with no audible mumurs or gallops. Regular rhythm, femorals equal on both sides.. ABDOMEN: No hepatosplenomegaly, normal bowel sounds, no guarding or rigidity. SKIN: No rashes CENTRAL NERVOUS SYSTEM: No focal deficits. EXTREMITIES: No cyanosis, clubbing or edema. Results 03/29/17 18:23 03/29/17 18:23 Cardiac Enzymes 03/29/17 03/29/17 03/30/17 Range/Units 18:23 18:23 00:31 AST 20 (14-36) U/L CK-MB (CK-2) 0.4 0.5 (0.0-2.4) ng/mL Troponin I <0.012 <0.012 (0.000-0.034) ng/mL 03/30/17 Range/Units 06:15 AST (14-36) U/L CK-MB (CK-2) 0.3 (0.0-2.4) ng/mL Troponin I <0.012 (0.000-0.034) ng/mL Coagulation 03/29/17 Range/Units 18:23 PT 9.8 (9.0-12.0) sec APTT 22.7 (22.0-30.0) sec CBC 03/29/17 Range/Units 18:23 WBC 6.5 (3.8-10.6) k/uL RBC 3.78 L (3.80-5.40) m/uL Hgb 11.1 L (11.4-16.0) gm/dL Hct 34.1 (34.0-46.0) % Plt Count 249 (150-450) k/uL Comprehensive Metabolic Panel 03/29/17 Range/Units 18:23 Sodium 141 (137-145) mmol/L Potassium 4.0 (3.5-5.1) mmol/L Chloride 108 H (98-107) mmol/L Carbon Dioxide 24 (22-30) mmol/L BUN 22 H (7-17) mg/dL Creatinine 0.95 (0.52-1.04) mg/dL Glucose 89 (74-99) mg/dL Calcium 8.9 (8.4-10.2) mg/dL AST 20 (14-36) U/L ALT 30 (9-52) U/L Alkaline Phosphatase 79 (38-126) U/L Total Protein 5.9 L (6.3-8.2) g/dL Albumin 3.7 (3.5-5.0) g/dL Current Medications Generic Name Dose Route Start Last Admin Trade Name Freq PRN Reason Stop Dose Admin Atorvastatin Calcium 20 mg 03/30/17 21:00 Lipitor PO HS [facility] Carvedilol 25 mg 03/30/17 07:30 Coreg PO BID-W/MEALS [facility] Duloxetine HCl 60 mg 03/30/17 09:00 03/30/17 08:55 Cymbalta PO 60 mg DAILY LISSETT Administration Famotidine 20 mg 03/30/17 09:00 03/30/17 08:55 Pepcid PO 20 mg DAILY LISSETT Administration Furosemide 40 mg 03/30/17 09:00 Lasix PO DAILY [facility] Gabapentin 600 mg 03/30/17 09:00 03/30/17 08:55 Neurontin PO 600 mg QID LISSETT Administration Hydroxyzine Pamoate 25 mg 03/30/17 21:00 Vistaril PO HS [facility] Dextrose/Sodium Chloride 1,000 mls @ 20 mls/hr 03/29/17 21:30 Dextrose 5%-1/2ns Iv Soln IV .Q24H [facility] Levothyroxine Sodium 137 mcg 03/30/17 06:30 03/30/17 06:33 Synthroid PO Not Given DAILY@0630 [facility] Lurasidone HCl 120 mg 03/30/17 17:30 Latuda PO W/SUPPER [facility] Miscellaneous Information 1 each 03/29/17 19:29 Rx Info: Iv Contrast Was Given MISCELLANE 03/31/17 19:30 DAILY PRN Per Protocol Morphine Sulfate 4 mg 03/29/17 21:21 03/30/17 01:19 Morphine Sulfate (Inj) IV 4 mg Q4HR PRN Administration Severe Pain Naloxone HCl 0.2 mg 03/29/17 21:21 Narcan IV Q2M PRN Opioid Reversal Nitroglycerin 1 inch 03/30/17 06:00 03/30/17 03:38 Nitro-Bid Oint TOPICAL 1 inch Q6HR LISSETT Administration Nystatin 1 applic 03/30/17 09:00 03/30/17 08:55 Mycostatin Powder TOPICAL 1 applic BID LISSETT Administration Ropinirole HCl 2 mg 03/30/17 09:00 03/30/17 08:55 Requip PO 2 mg QAM [facility]ISSETT Administration Ropinirole HCl 3 mg 03/30/17 21:00 Requip PO HS [facility] Trazodone HCl 200 mg 03/30/17 21:00 Desyrel PO HS [facility]ISSETT Intake and Output 03/29/17 03/30/17 03/30/17 22:59 06:59 14:59 Other: Voiding Method Toilet Toilet # Voids 2 Weight 161.025 kg 161.025 kg 03/29/17 18:23 03/29/17 18:23 EKG Interpretations (text) Sinus rhythm Assessment and Plan (1) CAD (coronary artery disease) Status: Acute (2) Chest pain Status: Acute Plan: Her chest pains appear to be atypical. Cardiac enzymes and EKGs are normal. From cardiac standpoint, patient could be discharged home. Follow-up with Dr. Feldman.
[2017-03-30 11:50] LABS: Glucose,Whole Blood 241 mg/dL (75-99)
[2017-03-30 12:22] VITALS: BP 149/67; PULSE 85; TEMP 98.5
[2017-03-30] MEDS ORDERED: LURASIDONE 80 MG TAB PO SCH (17:30)
[2017-03-30] MEDS ORDERED: traZODone HCL 100 MG TAB PO SCH (21:00)
[2017-03-30] MEDS ORDERED: hydrOXYzine PAMOATE 25 MG CAP PO SCH (21:00)
[2017-03-30] MEDS ORDERED: ATORVASTATIN 20 MG TAB PO SCH (21:00)
--- NOTE | 2017-03-30 22:33 | P.HPIM ---
History of Present Illness H&P Date: 03/30/17 (dc summary as well) Chief Complaint: chest pain 56-year-old female with history of mild coronary artery disease, hypothyroidism , hyperlipidemia and hypertension who follows regularly with Dr. Feldman. Patient was here in December with atypical chest pain and had a dobutamine stress echo which was normal. She came in with the complaints of pain on the left lower chest area, almost and axilla. She thinks she had a gas-like discomfort which it did not go away with Tums. Today she is feeling better. Her cardiac enzymes and EKGs are normal. Patient wants to go back to [facility]. pt had resolution of symptoms without any intervention EKG didnot reveal st-t wave changes :Lives at a [facility] attributes her symptoms to anxiety and gas Review of Systems All systems: negative (noted in HPI) Past Medical History Past Medical History: Asthma, Coronary Artery Disease (CAD), Diabetes Mellitus, Hyperlipidemia, Hypertension, Musculoskeletal Disorder, Osteoarthritis (OA), Thyroid Disorder Additional Past Medical History / Comment(s): Morbid obesity History of Any Multi-Drug Resistant Organisms: None Reported Past Surgical History: Bariatric Surgery, Hernia Repair, Orthopedic Surgery Additional Past Surgical History / Comment(s): Total Right knee replacement, 3 hernia repairs. Left hip repair Past Anesthesia/Blood Transfusion Reactions: No Reported Reaction Past Psychological History: Anxiety, Bipolar, Depression Additional Psychological History / Comment(s): borderline personality disorder Smoking Status: Never smoker Past Alcohol Use History: None Reported Past Drug Use History: None Reported - Past Family History Mother Family Medical History: Cancer Additional Family Medical History / Comment(s): lung cancer Father Additional Family Medical History / Comment(s): "my dad from a blood clot" patient is unsure where the blood clot was. Brother(s) Family Medical History: Diabetes Mellitus Sister(s) Additional Family Medical History / Comment(s): "her heart races too fast" Medications and Allergies Home Medications Medication Instructions Recorded Confirmed Type Gabapentin [Neurontin] 600 mg PO QID 07/09/15 03/29/17 History Carvedilol 25 mg PO BID 10/10/15 03/29/17 History Levothyroxine Sodium [Synthroid] 137 mcg PO DAILY 11/05/15 03/29/17 History DULoxetine HCL [Cymbalta] 60 mg PO DAILY 05/05/16 03/29/17 History rOPINIRole HCL [Requip] 3 mg PO HS 05/05/16 03/29/17 History Furosemide [Lasix] 40 mg PO DAILY 10/25/16 03/29/17 History Nystatin [Nystop] 1 applic TOPICAL BID 10/25/16 03/29/17 History Topiramate [Topamax] 100 mg PO BID 10/25/16 03/29/17 History rOPINIRole HCL [Requip] 2 mg PO QAM 10/30/16 03/29/17 History Ibuprofen [Motrin] 600 mg PO QID 11/03/16 03/29/17 History traZODone HCL [Desyrel] 200 mg PO HS 11/03/16 03/29/17 History Fluticasone Nasal [place] [Flonase 1 spray EA NOSTRIL BID 11/19/16 03/29/17 History Nasal [place]] Mirabegron [Myrbetriq] 25 mg PO DAILY 12/10/16 03/29/17 History Allopurinol [Zyloprim] 100 mg PO BID 03/29/17 03/29/17 History Cyanocobalamin (Vitamin B-12) 1,000 mcg PO DAILY 03/29/17 03/29/17 History [Vitamin B-12] Ergocalciferol [Vitamin D2 50,000 unit PO TH 03/29/17 03/29/17 History (DRISDOL)] Famotidine [Pepcid] 20 mg PO DAILY 03/29/17 03/29/17 History Ferrous Sulfate [Iron (65 MG 325 mg PO BID 03/29/17 03/29/17 History Elemental)] Fexofenadine HCl [Lani Allergy] 180 mg PO DAILY 03/29/17 03/29/17 History Lurasidone HCl [Latuda] 120 mg PO W/SUPPER 03/29/17 03/29/17 History Simvastatin [Zocor] 40 mg PO HS 03/29/17 03/29/17 History hydrOXYzine PAMOATE [Vistaril] 25 mg PO HS 03/29/17 03/29/17 History Allergies Allergy/AdvReac Type Severity Reaction Status Date / Time buspirone [From BuSpar] Allergy Unknown Verified 03/29/17 18:08 haloperidol [From Haldol] Allergy Swelling Verified 03/29/17 18:08 iodine Allergy Swelling Verified 03/29/17 18:08 Penicillins Allergy Swelling Verified 03/29/17 18:08 prochlorperazine Allergy Rash/Hives Verified 03/29/17 18:53 Sulfa (Sulfonamide Allergy Rash/Hives Verified 03/29/17 18:08 Antibiotics) Tetanus Vaccines and Toxoid Allergy Rash/Hives Verified 03/29/17 18:08 [Tetanus Vaccines & Toxoid] trifluoperazine HCl Allergy Unknown Verified 03/29/17 18:08 [From Stelazine] Physical Exam Vitals: Vital Signs Temp Pulse Pulse Resp BP Pulse Ox 03/30/17 12:00 98.5 F 85 18 149/67 99 03/30/17 08:00 98.3 F 72 66 18 153/79 99 03/30/17 03:53 66 16 03/30/17 03:40 68 16 128/68 100 03/29/17 23:25 69 16 Intake and Output 03/30/17 03/30/17 03/30/17 06:59 14:59 22:59 Other: Voiding Method Toilet Toilet # Voids 2 2 Weight 161.025 kg - Constitutional General appearance: no acute distress - EENT Eyes: EOMI, PERRLA - Neck Neck: normal ROM - Respiratory Respiratory: bilateral: CTA, negative: dullness, rales, rhonchi - Cardiovascular Rhythm: regular Heart sounds: normal: S1, S2 Abnormal Heart Sounds: no systolic murmur - Gastrointestinal General gastrointestinal: normal bowel sounds, no organomegaly, soft - Neurologic Neurologic: CNII-XII intact - Psychiatric Psychiatric: A&O x's 3 Results CBC & Chem 7: 03/29/17 18:23 03/29/17 18:23 Labs: Abnormal Lab Results - Last 24 Hours (Table) 03/30/17 03/30/17 03/30/17 Range/Units 00:31 06:15 07:00 POC Glucose (mg/dL) 123 H (75-99) mg/dL Total Creatine Kinase 28 L 25 L (30-135) U/L 03/30/17 Range/Units 11:49 POC Glucose (mg/dL) 241 H (75-99) mg/dL Total Creatine Kinase (30-135) U/L Thrombosis Risk Factor Assmnt - Choose All That Apply Each Factor Represents 1 point: Obesity (BMI >25), Swollen legs (current) Thrombosis Risk Factor Assessment Total Risk Factor Score: 2 Thrombosis Risk Factor Assessment Level: Low Risk Assessment and Plan Plan: atypical chest pain CAD HTN, controlled Bipolar disorder Dyslipidemia Gout Hypothyroidism Peripheral neuopathy Plan Admitted for obs Symptoms are resolved EKG WNL Dc back to [facility]
== END 2017-03-30 14:52 | disposition other institution (70) ==
LOC: EC 18:00 → 3OBS 21:21
PROVIDERS: ADMIT Internal Medicine; ATTEND Internal Medicine
DX: R07.89 Other chest pain (principal); I25.10 Atherosclerotic heart disease of native coronary artery without angina pectoris; I11.0 Hypertensive heart disease with heart failure; I50.9 Heart failure, unspecified; M10.9 Gout, unspecified; G62.9 Polyneuropathy, unspecified; R79.89 Other specified abnormal findings of blood chemistry; E78.00 Pure hypercholesterolemia, unspecified; E78.5 Hyperlipidemia, unspecified; E03.9 Hypothyroidism, unspecified; M19.90 Unspecified osteoarthritis, unspecified site; F31.9 Bipolar disorder, unspecified; F41.9 Anxiety disorder, unspecified; F60.3 Borderline personality disorder; E66.9 Obesity, unspecified; Z68.25 Body mass index [BMI] 25.0-25.9, adult; Z79.51 Long term (current) use of inhaled steroids; Z79.1 Long term (current) use of non-steroidal anti-inflammatories (NSAID); Z79.899 Other long term (current) drug therapy; Z88.2 Allergy status to sulfonamides; Z88.0 Allergy status to penicillin; Z88.7 Allergy status to serum and vaccine; Z83.2 Family history of diseases of the blood and blood-forming organs and certain disorders involving the immune mechanism; Z98.84 Bariatric surgery status; Z88.8 Allergy status to other drugs, medicaments and biological substances; Z91.048 Other nonmedicinal substance allergy status
CPT/HCPCS: 96375 ×4; 96374 ×2; 99285 ×2; 36415; 93005; 85379; 83880; 80053; 82550 ×2; 82553 ×2; 83690; 83735; 84484 ×2; 85025; 85610; 85730; 71020; 71275; G0378 ×2; J2270; J1200; J2930; Q9967

== ENCOUNTER 2017-04-20 18:27 | Emergency (ER) | payer MEDICARE, OTHER ==
--- NOTE | 2017-04-20 18:59 | ED ---
General Adult HPI - General Chief complaint: Extremity Problem,Nontraumatic Stated complaint: BILATERAL EXTREMITY CRAMPING Time Seen by Provider: 04/20/17 18:41 Source: patient, EMS, RN notes reviewed Mode of arrival: EMS Limitations: no limitations - History of Present Illness Initial comments: 57 shows male presents to the emergency department with a chief complaint of muscle soreness. Patient states she's been having cramping in both upper and lower x-rays. She has a muscle In the past feels much like She's never had them in all extremities. Patient states that she did start a program with [facility] about fitness. Patient states this week they increased her exercise regimen she was doing lots of arm curls and lots of bicycling. Patient states that her biceps and forearm start on both arms she doesn't advise that motion causes more discomfort. Patient states her legs hurt as well as his bicycle motion causes more discomfort to. Patient states that she just feels very sore so she thought that she should be evaluated. Patient denies any falls traumas or injuries. Patient went tender to any bony area. Patient denies any recent fever , chills, shortness of breath, chest pain, back pain, abdominal pain, nausea vomiting, numbness or tingling, dysuria or hematuria, constipation or diarrhea, headaches or visual changes, or any other current symptoms. - Related Data Home Medications Medication Instructions Recorded Confirmed Gabapentin [Neurontin] 600 mg PO QID 07/09/15 04/20/17 Carvedilol 25 mg PO BID 10/10/15 04/20/17 Levothyroxine Sodium [Synthroid] 137 mcg PO DAILY 11/05/15 04/20/17 DULoxetine HCL [Cymbalta] 60 mg PO DAILY 05/05/16 04/20/17 rOPINIRole HCL [Requip] 3 mg PO HS 05/05/16 04/20/17 Furosemide [Lasix] 40 mg PO DAILY 10/25/16 04/20/17 Topiramate [Topamax] 100 mg PO BID 10/25/16 04/20/17 rOPINIRole HCL [Requip] 2 mg PO QAM 10/30/16 04/20/17 Ibuprofen [Motrin] 600 mg PO QID 11/03/16 04/20/17 traZODone HCL [Desyrel] 200 mg PO HS 11/03/16 04/20/17 Mirabegron [Myrbetriq] 25 mg PO DAILY 12/10/16 04/20/17 Allopurinol [Zyloprim] 100 mg PO BID 03/29/17 04/20/17 Cyanocobalamin (Vitamin B-12) 1,000 mcg PO DAILY 03/29/17 04/20/17 [Vitamin B-12] Ergocalciferol [Vitamin D2 50,000 unit PO TH 03/29/17 04/20/17 (DRISDOL)] Famotidine [Pepcid] 20 mg PO DAILY 03/29/17 04/20/17 Ferrous Sulfate [Iron (65 MG 325 mg PO BID 03/29/17 04/20/17 Elemental)] Fexofenadine HCl [Lani Allergy] 180 mg PO DAILY 03/29/17 04/20/17 Lurasidone HCl [Latuda] 120 mg PO W/SUPPER 03/29/17 04/20/17 Simvastatin [Zocor] 40 mg PO HS 03/29/17 04/20/17 hydrOXYzine PAMOATE [Vistaril] 25 mg PO HS 03/29/17 04/20/17 Allergies Allergy/AdvReac Type Severity Reaction Status Date / Time buspirone [From BuSpar] Allergy Unknown Verified 04/20/17 18:35 haloperidol [From Haldol] Allergy Swelling Verified 04/20/17 18:35 iodine Allergy Swelling Verified 04/20/17 18:35 Penicillins Allergy Swelling Verified 04/20/17 18:35 prochlorperazine Allergy Rash/Hives Verified 04/20/17 18:35 Sulfa (Sulfonamide Allergy Rash/Hives Verified 04/20/17 18:35 Antibiotics) Tetanus Vaccines and Toxoid Allergy Rash/Hives Verified 04/20/17 18:35 [Tetanus Vaccines & Toxoid] trifluoperazine HCl Allergy Unknown Verified 04/20/17 18:35 [From Stelazine] Review of Systems ROS Statement: Those systems with pertinent positive or pertinent negative responses have been documented in the HPI. ROS Other: All systems not noted in ROS Statement are negative. Past Medical History Past Medical History: Asthma, Diabetes Mellitus, Hyperlipidemia, Hypertension, Musculoskeletal Disorder, Osteoarthritis (OA), Thyroid Disorder Additional Past Medical History / Comment(s): Morbid obesity History of Any Multi-Drug Resistant Organisms: None Reported Past Surgical History: Bariatric Surgery, Hernia Repair, Orthopedic Surgery Additional Past Surgical History / Comment(s): Total Right knee replacement, 3 hernia repairs. Left hip repair Past Anesthesia/Blood Transfusion Reactions: No Reported Reaction Past Psychological History: Anxiety, Bipolar, Depression Smoking Status: Never smoker Past Alcohol Use History: None Reported Past Drug Use History: None Reported - Past Family History Mother Family Medical History: Cancer Additional Family Medical History / Comment(s): lung cancer Father Additional Family Medical History / Comment(s): "my dad from a blood clot" patient is unsure where the blood clot was. Brother(s) Family Medical History: Diabetes Mellitus Sister(s) Additional Family Medical History / Comment(s): "her heart races too fast" General Exam Limitations: no limitations General appearance: alert, in no apparent distress Head exam: Present: atraumatic, normocephalic, normal inspection Neck exam: Present: normal inspection. Absent: tenderness, meningismus, lymphadenopathy Respiratory exam: Present: normal lung sounds bilaterally. Absent: respiratory distress, wheezes, rales, rhonchi, stridor Cardiovascular Exam: Present: regular rate, normal rhythm, normal heart sounds. Absent: systolic murmur, diastolic murmur, rubs, gallop, clicks Extremities exam: Present: normal inspection, full ROM, tenderness (minimal to bilateral biceps bilateral forearms by lateral quadriceps and bilateral calf), normal capillary refill. Absent: pedal edema, joint swelling, calf tenderness Neurological exam: Present: alert, oriented X3 Psychiatric exam: Present: normal affect, normal mood Course Vital Signs 04/20/17 18:31 Temperature 97.2 F L Pulse Rate 74 Respiratory 17 Rate Blood Pressure 110/58 O2 Sat by Pulse 94 L Oximetry Medical Decision Making - Medical Decision Making 57-year-old female presents for bilateral muscle soreness after increasing her workout regimen this week.this patient's lab work is reviewed and doesn't appear to be stable. At this time the patient was given Toradol. We discussed she thought that something for muscle strain due to her current workout plan. We discussed ice Motrin Tylenol. We discussed return parameters follow-up and all her questions. She stated that she understood and she is given plan. She will be discharged. - Lab Data Result diagrams: 04/20/17 19:17 04/20/17 19:17 Lab Results 04/20/17 04/20/17 Range/Units 19:17 19:17 WBC 6.0 (3.8-10.6) k/uL RBC 3.79 L (3.80-5.40) m/uL Hgb 11.3 L (11.4-16.0) gm/dL Hct 34.8 (34.0-46.0) % MCV 91.8 (80.0-100.0) fL MCH 29.8 (25.0-35.0) pg MCHC 32.4 (31.0-37.0) g/dL RDW 15.3 (11.5-15.5) % Plt Count 275 (150-450) k/uL Neutrophils % 59 % Lymphocytes % 27 % Monocytes % 6 % Eosinophils % 3 % Basophils % 1 % Neutrophils # 3.5 (1.3-7.7) k/uL Lymphocytes # 1.6 (1.0-4.8) k/uL Monocytes # 0.4 (0-1.0) k/uL Eosinophils # 0.2 (0-0.7) k/uL Basophils # 0.0 (0-0.2) k/uL Manual Slide Review Performed RBC Morphology Normal Sodium 143 (137-145) mmol/L Potassium 4.4 (3.5-5.1) mmol/L Chloride 111 H (98-107) mmol/L Carbon Dioxide 20 L (22-30) mmol/L Anion Gap 12 mmol/L BUN 22 H (7-17) mg/dL Creatinine 1.00 (0.52-1.04) mg/dL Est GFR (MDRD) Af Amer >60 (>60 ml/min/1.73 sqM) Est GFR (MDRD) Non-Af 57 (>60 ml/min/1.73 sqM) Glucose 102 H (74-99) mg/dL Calcium 8.9 (8.4-10.2) mg/dL Total Bilirubin 0.2 (0.2-1.3) mg/dL AST 21 (14-36) U/L ALT 28 (9-52) U/L Alkaline Phosphatase 81 (38-126) U/L Creatine Kinase 30 (30-135) U/L Total Protein 6.1 L (6.3-8.2) g/dL Albumin 3.7 (3.5-5.0) g/dL Disposition Clinical Impression: Muscle strain Disposition: HOME SELF-CARE Condition: Stable Instructions: Muscle Strain (ED) Additional Instructions: Please use medication as discussed. Please follow up with family doctor if symptoms have not improved over the next two days. Please return to the emergency room if your symptoms increase or worsen or for any other concerns. Referrals: Nell Francois MD [Primary Care Provider] - 1-2 days Time of Disposition: 20:13
[2017-04-20 19:32] LABS: ALT 28 U/L (9-52); AST 21 U/L (14-36); Alkaline Phosphatase 81 U/L (38-126); Anion Gap 12 mmol/L; Blood Urea Nitrogen 22 mg/dL (7-17); Calcium 8.9 mg/dL (8.4-10.2); Carbon Dioxide 20 mmol/L (22-30); Chloride 111 mmol/L (98-107); Creatine Kinase 30 U/L (30-135); Glucose 102 mg/dL (74-99); Non-African American GFR(MDRD) 57 (>60 ml/min/1.73 sqM); Potassium 4.4 mmol/L (3.5-5.1); Sodium 143 mmol/L (137-145); Total Bilirubin 0.2 mg/dL (0.2-1.3); Total Protein 6.1 g/dL (6.3-8.2)
[2017-04-20 19:35] LABS: Aty Lym Flag Slight; Basophils % (A) 1 %; CH 30.4; CHCM 33.3; Eosinophils # (A) 0.2 k/uL (0-0.7); Eosinophils % (A) 3 %; HCT 34.8 % (34.0-46.0); HDW 2.73; HGB 11.3 gm/dL (11.4-16.0); Luc # (Auto) 0.28; Luc % (Auto) 5; Lymphocytes # (A) 1.6 k/uL (1.0-4.8); Lymphocytes % (A) 27 %; MCH 29.8 pg (25.0-35.0); MCHC 32.4 g/dL (31.0-37.0); MCV 91.8 fL (80.0-100.0); Mean Platelet Volume 8.1; Monocytes # (A) 0.4 k/uL (0-1.0); Monocytes % (A) 6 %; Neutrophils # (A) 3.5 k/uL (1.3-7.7); Neutrophils % (A) 59 %; RBC 3.79 m/uL (3.80-5.40); RDW 15.3 % (11.5-15.5); WBC (Perox) 5.97
[2017-04-20 19:59] LABS: Manual Review Performed; RBC Morphology Normal
[2017-04-20] MEDS ORDERED: KETOROLAC 30 MG/ML 1 ML VIAL IVP STA (20:12)
[2017-04-20 20:24] VITALS: BP 115/57; PULSE 87; RESP 18; TEMP 96.9
== END 2017-04-20 20:47 | disposition home or self-care (01) ==
LOC: EC 18:27
DX: S46.911A Strain of unspecified muscle, fascia and tendon at shoulder and upper arm level, right arm, initial encounter (principal); S46.912A Strain of unspecified muscle, fascia and tendon at shoulder and upper arm level, left arm, initial encounter; S86.911A Strain of unspecified muscle(s) and tendon(s) at lower leg level, right leg, initial encounter; S86.912A Strain of unspecified muscle(s) and tendon(s) at lower leg level, left leg, initial encounter; E78.5 Hyperlipidemia, unspecified; I10 Essential (primary) hypertension; E07.9 Disorder of thyroid, unspecified; E66.01 Morbid (severe) obesity due to excess calories; F41.9 Anxiety disorder, unspecified; F31.9 Bipolar disorder, unspecified; M19.90 Unspecified osteoarthritis, unspecified site; Z96.651 Presence of right artificial knee joint; Z79.1 Long term (current) use of non-steroidal anti-inflammatories (NSAID); Z79.899 Other long term (current) drug therapy; Z88.0 Allergy status to penicillin; Z88.2 Allergy status to sulfonamides; Z88.7 Allergy status to serum and vaccine; Z88.8 Allergy status to other drugs, medicaments and biological substances; Z91.048 Other nonmedicinal substance allergy status; X50.1XXA Overexertion from prolonged static or awkward postures, initial encounter; Y93.89 Activity, other specified
CPT/HCPCS: 36415; 80053; 82550; 85025; 99284; 96374; J1885

== ENCOUNTER 2017-05-06 16:13 | Observation (INO) | payer MEDICARE, OTHER ==
[2017-05-06 16:20] VITALS: RESP 18
[2017-05-06] MEDS ORDERED: ASPIRIN 81 MG PO STA (16:34)
[2017-05-06] MEDS ORDERED: NITROGLYCERIN SL TABS 0.4 MG TAB SUBLINGUAL STA ×3 (16:34)
--- NOTE | 2017-05-06 16:37 | ED ---
General Adult HPI - General Chief complaint: Chest Pain Stated complaint: chest pain Time Seen by Provider: 05/06/17 16:23 Source: patient, EMS, RN notes reviewed Mode of arrival: EMS Limitations: no limitations - History of Present Illness Initial comments: Patient is a pleasant 57-year-old female presenting to the emergency department chest discomfort. Onset was a half an hour ago while lying down. Discomfort feels like heaviness. No associated dyspnea, nausea, or sweating. Patient has had similar symptoms previously associated with anxiety. states she does feel somewhat anxious. No leg pain or leg swelling. No cough or fever. - Related Data Home Medications Medication Instructions Recorded Confirmed Gabapentin [Neurontin] 600 mg PO QID 07/09/15 05/06/17 Carvedilol 25 mg PO BID 10/10/15 05/06/17 Levothyroxine Sodium [Synthroid] 137 mcg PO DAILY 11/05/15 05/06/17 DULoxetine HCL [Cymbalta] 60 mg PO DAILY 05/05/16 05/06/17 rOPINIRole HCL [Requip] 3 mg PO DAILY@199905/05/16 05/06/17 Furosemide [Lasix] 40 mg PO QAM 10/25/16 05/06/17 Topiramate [Topamax] 100 mg PO BID 10/25/16 05/06/17 rOPINIRole HCL [Requip] 2 mg PO DAILY@0800 10/30/16 05/06/17 Ibuprofen [Motrin] 600 mg PO QID 11/03/16 05/06/17 traZODone HCL [Desyrel] 200 mg PO HS 11/03/16 05/06/17 Mirabegron [Myrbetriq] 25 mg PO DAILY 12/10/16 05/06/17 Allopurinol [Zyloprim] 100 mg PO BID 03/29/17 05/06/17 Cyanocobalamin (Vitamin B-12) 1,000 mcg PO DAILY 03/29/17 05/06/17 [Vitamin B-12] Ergocalciferol [Vitamin D2 50,000 unit PO Q7D 03/29/17 05/06/17 (DRISDOL)] Famotidine [Pepcid] 20 mg PO DAILY 03/29/17 05/06/17 Ferrous Sulfate [Iron (65 MG 325 mg PO BID 03/29/17 05/06/17 Elemental)] Fexofenadine HCl [Lani Allergy] 180 mg PO DAILY 03/29/17 05/06/17 Lurasidone HCl [Latuda] 120 mg PO PC-SUPPER 03/29/17 05/06/17 Simvastatin [Zocor] 40 mg PO HS 03/29/17 05/06/17 hydrOXYzine PAMOATE [Vistaril] 25 mg PO HS 03/29/17 05/06/17 Allergies Allergy/AdvReac Type Severity Reaction Status Date / Time buspirone [From BuSpar] Allergy Unknown Verified 05/06/17 16:18 haloperidol [From Haldol] Allergy Swelling Verified 05/06/17 16:18 iodine Allergy Swelling Verified 05/06/17 16:18 Penicillins Allergy Swelling Verified 05/06/17 16:18 prochlorperazine Allergy Rash/Hives Verified 05/06/17 16:18 Sulfa (Sulfonamide Allergy Rash/Hives Verified 05/06/17 16:18 Antibiotics) Tetanus Vaccines and Toxoid Allergy Rash/Hives Verified 05/06/17 16:18 [Tetanus Vaccines & Toxoid] trifluoperazine HCl Allergy Unknown Verified 05/06/17 16:18 [From Stelazine] Review of Systems ROS Statement: Those systems with pertinent positive or pertinent negative responses have been documented in the HPI. ROS Other: All systems not noted in ROS Statement are negative. Constitutional: Denies: fever Eyes: Denies: eye pain ENT: Denies: ear pain Respiratory: Denies: cough Cardiovascular: Reports: chest pain Endocrine: Denies: fatigue Gastrointestinal: Denies: nausea Genitourinary: Denies: dysuria Musculoskeletal: Denies: back pain Skin: Denies: rash Neurological: Denies: weakness Psychiatric: Reports: anxiety Past Medical History Past Medical History: Asthma, Diabetes Mellitus, Hyperlipidemia, Hypertension, Musculoskeletal Disorder, Osteoarthritis (OA), Thyroid Disorder Additional Past Medical History / Comment(s): Morbid obesity History of Any Multi-Drug Resistant Organisms: None Reported Past Surgical History: Bariatric Surgery, Hernia Repair, Orthopedic Surgery Additional Past Surgical History / Comment(s): Total Right knee replacement, 3 hernia repairs. Left hip repair Past Anesthesia/Blood Transfusion Reactions: No Reported Reaction Past Psychological History: Anxiety, Bipolar, Depression Smoking Status: Never smoker Past Alcohol Use History: None Reported Past Drug Use History: None Reported - Past Family History Mother Family Medical History: Cancer Additional Family Medical History / Comment(s): lung cancer Father Additional Family Medical History / Comment(s): "my dad from a blood clot" patient is unsure where the blood clot was. Brother(s) Family Medical History: Diabetes Mellitus Sister(s) Additional Family Medical History / Comment(s): "her heart races too fast" General Exam Limitations: no limitations General appearance: alert, in no apparent distress, obese Head exam: Present: atraumatic Eye exam: Present: normal appearance, PERRL ENT exam: Present: normal oropharynx Neck exam: Present: normal inspection Respiratory exam: Present: normal lung sounds bilaterally. Absent: chest wall tenderness Cardiovascular Exam: Present: regular rate, normal rhythm, normal heart sounds Expanded Peripheral pulses: 2+: Radial (R), Radial (L), Posterior Tibialis (R), Posterior Tibialis (L) GI/Abdominal exam: Present: soft. Absent: tenderness Extremities exam: Present: normal inspection. 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 FL 142. QRS 84. QT 416. QTC 418. Normal axis. Normal QRS. Normal ST-T. Some artifact is present. Medical Decision Making - Medical Decision Making Patient reexamined and improved. Patient updated on results. Case discussed with practitioner Manuela, covering for Dr. Méndez, who will admit for hospital call. - Lab Data Result diagrams: 05/06/17 16:35 05/06/17 16:35 Lab Results 05/06/17 05/06/17 05/06/17 Range/Units 16:35 16:35 16:35 WBC 7.4 (3.8-10.6) k/uL RBC 4.07 (3.80-5.40) m/uL Hgb 12.2 (11.4-16.0) gm/dL Hct 37.0 (34.0-46.0) % MCV 90.8 (80.0-100.0) fL MCH 30.1 (25.0-35.0) pg MCHC 33.1 (31.0-37.0) g/dL RDW 14.9 (11.5-15.5) % Plt Count 256 (150-450) k/uL Neutrophils % 68 % Lymphocytes % 20 % Monocytes % 6 % Eosinophils % 2 % Basophils % 1 % Neutrophils # 5.1 (1.3-7.7) k/uL Lymphocytes # 1.5 (1.0-4.8) k/uL Monocytes # 0.4 (0-1.0) k/uL Eosinophils # 0.1 (0-0.7) k/uL Basophils # 0.0 (0-0.2) k/uL Sodium 138 (137-145) mmol/L Potassium 4.3 (3.5-5.1) mmol/L Chloride 106 (98-107) mmol/L Carbon Dioxide 19 L (22-30) mmol/L Anion Gap 13 mmol/L BUN 28 H (7-17) mg/dL Creatinine 1.30 H (0.52-1.04) mg/dL Est GFR (MDRD) Af Amer 51 (>60 ml/min/1.73 sqM) Est GFR (MDRD) Non-Af 42 (>60 ml/min/1.73 sqM) Glucose 95 (74-99) mg/dL Calcium 9.4 (8.4-10.2) mg/dL Magnesium 1.9 (1.6-2.3) mg/dL Total Bilirubin 0.5 (0.2-1.3) mg/dL AST 23 (14-36) U/L ALT 30 (9-52) U/L Alkaline Phosphatase 76 (38-126) U/L Total Creatine Kinase 40 (30-135) U/L CK-MB (CK-2) 0.6 (0.0-2.4) ng/mL CK-MB (CK-2) Rel Index 1.5 Troponin I <0.012 (0.000-0.034) ng/mL Total Protein 6.6 (6.3-8.2) g/dL Albumin 4.1 (3.5-5.0) g/dL - Radiology Data Radiology results: image reviewed (Chest x-ray shows no acute process) Disposition Clinical Impression: Chest pain Disposition: ADMITTED IP TO THIS [facility] Referrals: Nell Francois MD [Primary Care Provider] - 1-2 days Decision Time: 17:39
[2017-05-06 16:44] LABS: Basophils % (A) 1 %; CH 30.8; CHCM 34.1; Eosinophils # (A) 0.1 k/uL (0-0.7); Eosinophils % (A) 2 %; HDW 2.71; HGB 12.2 gm/dL (11.4-16.0); Luc # (Auto) 0.24; Luc % (Auto) 3; Lymphocytes # (A) 1.5 k/uL (1.0-4.8); Lymphocytes % (A) 20 %; MCH 30.1 pg (25.0-35.0); MCHC 33.1 g/dL (31.0-37.0); MCV 90.8 fL (80.0-100.0); Mean Platelet Volume 7.9; Monocytes # (A) 0.4 k/uL (0-1.0); Monocytes % (A) 6 %; Neutrophils # (A) 5.1 k/uL (1.3-7.7); Neutrophils % (A) 68 %; RBC 4.07 m/uL (3.80-5.40); RDW 14.9 % (11.5-15.5); WBC 7.4 k/uL (3.8-10.6); WBC (Perox) 7.31
[2017-05-06] MEDS ORDERED: ONDANSETRON 4 MG/2 ML VIAL IVP STA (16:47)
[2017-05-06 16:53] LABS: Calcium 9.4 mg/dL (8.4-10.2); Magnesium 1.9 mg/dL (1.6-2.3); Potassium 4.3 mmol/L (3.5-5.1); Total Bilirubin 0.5 mg/dL (0.2-1.3); Total Protein 6.6 g/dL (6.3-8.2)
[2017-05-06 17:03] LABS: Creatine Kinase 40 U/L (30-135)
--- NOTE | 2017-05-06 17:03 | XR ---
EXAMINATION TYPE: XR chest 2V DATE OF EXAM: 05/06/2017 COMPARISON: March 21, 2017. HISTORY: Chest pain and heaviness. TECHNIQUE: Frontal and lateral views of the chest are obtained. FINDINGS: There is no focal air space opacity, pleural effusion, or pneumothorax seen. The cardiac silhouette size is within normal limits. The osseous structures are intact. Inspiratory depth on th e current examination has improved when compared to the previous. IMPRESSION: No change in appearance of the chest, no acute abnormality is identified.
[2017-05-06 17:16] LABS: Creatine Kinase MB 0.6 ng/mL (0.0-2.4); Troponin I <0.012 ng/mL (0.000-0.034)
[2017-05-06] MEDS ORDERED: LORazepam 1 MG TAB PO STA (17:32)
[2017-05-06] MEDS ORDERED: NITROGLYCERIN SL TABS 0.4 MG TAB SUBLINGUAL PRN (17:40)
[2017-05-06 17:44] LABS: Partial Thromboplastin Time 22.8 sec (22.0-30.0)
[2017-05-06 18:24] LABS: Glucose,Whole Blood 109 mg/dL (75-99)
[2017-05-06] MEDS: NITROGLYCERIN OINT 1 INCH/GM PACKET TOPICAL SCH (19:02)
[2017-05-06] MEDS ORDERED: LURASIDONE 40 MG TAB PO SCH (20:30)
[2017-05-06] MEDS ORDERED: ATORVASTATIN 20 MG TAB PO SCH (21:00)
[2017-05-06] MEDS ORDERED: traZODone HCL 100 MG TAB PO SCH (21:00)
[2017-05-06] MEDS ORDERED: hydrOXYzine PAMOATE 25 MG CAP PO SCH (21:00)
[2017-05-06] MEDS: HYDROcodone/APAP 5-325MG 1 EACH TAB PO PRN (21:33)
[2017-05-06] MEDS: FERROUS SULFATE 325 MG TAB PO SCH (21:35)
[2017-05-06] MEDS: ALLOPURINOL 100 MG TAB PO SCH (21:35)
[2017-05-06] MEDS: CARVEDILOL 12.5 MG TAB PO SCH (21:35)
[2017-05-06] MEDS: GABAPENTIN 300 MG CAP PO SCH (21:36)
[2017-05-06] MEDS: TOPIRAMATE 100 MG TAB PO SCH (21:36)
[2017-05-06 23:00] LABS: Creatine Kinase 31 U/L (30-135)
[2017-05-06 23:13] LABS: Creatine Kinase MB 0.6 ng/mL (0.0-2.4); Troponin I <0.012 ng/mL (0.000-0.034)
[2017-05-07 04:44] LABS: Cholesterol 194 mg/dL (<200); HDL Cholesterol 55 mg/dL (40-60)
[2017-05-07 04:54] LABS: Creatine Kinase 29 U/L (30-135)
[2017-05-07 05:06] LABS: Creatine Kinase MB 0.5 ng/mL (0.0-2.4); Troponin I <0.012 ng/mL (0.000-0.034)
[2017-05-07] MEDS: NITROGLYCERIN OINT 1 INCH/GM PACKET TOPICAL SCH ×2 (06:01→14:14)
[2017-05-07 07:29] LABS: Glucose,Whole Blood 87 mg/dL (75-99)
[2017-05-07] MEDS: HYDROcodone/APAP 5-325MG 1 EACH TAB PO PRN (07:29)
[2017-05-07] MEDS ORDERED: ASPIRIN 325 MG TAB PO SCH (09:00)
[2017-05-07] MEDS: FERROUS SULFATE 325 MG TAB PO SCH (09:12)
[2017-05-07] MEDS: GABAPENTIN 300 MG CAP PO SCH ×2 (09:12→14:15)
[2017-05-07] MEDS: CARVEDILOL 12.5 MG TAB PO SCH (09:12)
[2017-05-07] MEDS: ALLOPURINOL 100 MG TAB PO SCH (09:12)
[2017-05-07] MEDS: TOPIRAMATE 100 MG TAB PO SCH (09:12)
[2017-05-07] MEDS ORDERED: LEVOTHYROXINE 137 MCG TAB PO SCH (11:00)
--- NOTE | 2017-05-07 11:29 | P.CRDCN ---
History of Present Illness Consult date: 05/07/17 History of present illness: This is a 57-year-old female with morbid obesity. Past medical history significant for mild coronary artery disease, hypothyroidism, hyperlipidemia and hypertension. She follows regularly with Dr. Lenz.. Patient presents with complaints of left-sided chest pressure with radiation into the left shoulder and upper arm. Patient states the pain came on while she was lying in bed. The patient was not associated with any dizziness or diaphoresis. She states that she did feel mild nausea and had some dry heaves. She also complains of exertional shortness of breath. She states this is not anything new. She states the pressure and pain in left arm still ongoing. The pain is reproducible and worse with deep inspiration. EKG done shows normal sinus mechanism with no T-wave abnormality. When compared with old EKG this appears consistent. CBC was within normal limits, coagulation profile at baseline. BMP is normal. CPK and troponin are normal x 2. Chest x-ray showed no acute cardiopulmonary process. Most recent echo dated 12/11/2016 indicates preserved left ventricular function with an ejection fraction of 60-65%, mildly enlarged right ventricle, mild concentric left ventricular hypertrophy, mild aortic valve sclerosis with mild stenosis, trace to mild mitral regurgitation, trace tricuspid regurgitation, trace to mild pulmonic regurgitation with an mildly dilated inferior vena cava. Most recent stress test 12/12/2016. She underwent a dobutamine stress echo which was negative for ischemia.. Review of Systems REVIEW OF SYSTEMS: Patient continues to complain of chest discomfort, worse with movement and deep inspiration. No shortness of breath. No diaphoresis. Denies headache, dizziness, blurred vision, double vision. No dyspnea on exertion. Patient denies any stomach discomfort. No nausea, vomiting. No hematochezia. No hematemesis. Denies any black stools or blood in his stools. No syncope. No palpitations. No cough. No recent fever or chills. No muscle weakness or numbness. Past Medical History Past Medical History: Asthma, Diabetes Mellitus, Hyperlipidemia, Hypertension, Musculoskeletal Disorder, Osteoarthritis (OA), Thyroid Disorder Additional Past Medical History / Comment(s): Morbid obesity History of Any Multi-Drug Resistant Organisms: None Reported Past Surgical History: Bariatric Surgery, Hernia Repair, Orthopedic Surgery Additional Past Surgical History / Comment(s): Total Right knee replacement, 3 hernia repairs. Left hip repair Past Anesthesia/Blood Transfusion Reactions: No Reported Reaction Past Psychological History: Anxiety, Bipolar, Depression Additional Psychological History / Comment(s): borderline personality disorder Smoking Status: Never smoker Past Alcohol Use History: None Reported Past Drug Use History: None Reported - Past Family History Mother Family Medical History: Cancer Additional Family Medical History / Comment(s): lung cancer Father Additional Family Medical History / Comment(s): "my dad from a blood clot" patient is unsure where the blood clot was. Brother(s) Family Medical History: Diabetes Mellitus Sister(s) Additional Family Medical History / Comment(s): "her heart races too fast" Medications and Allergies Home Medications Medication Instructions Recorded Confirmed Type Gabapentin [Neurontin] 600 mg PO QID 07/09/15 05/06/17 History Carvedilol 25 mg PO BID 10/10/15 05/06/17 History Levothyroxine Sodium [Synthroid] 137 mcg PO DAILY 11/05/15 05/06/17 History DULoxetine HCL [Cymbalta] 60 mg PO DAILY 05/05/16 05/06/17 History rOPINIRole HCL [Requip] 3 mg PO DAILY@199905/05/16 05/06/17 History Furosemide [Lasix] 40 mg PO QAM 10/25/16 05/06/17 History Topiramate [Topamax] 100 mg PO BID 10/25/16 05/06/17 History rOPINIRole HCL [Requip] 2 mg PO DAILY@0800 10/30/16 05/06/17 History Ibuprofen [Motrin] 600 mg PO QID 11/03/16 05/06/17 History traZODone HCL [Desyrel] 200 mg PO HS 11/03/16 05/06/17 History Mirabegron [Myrbetriq] 25 mg PO DAILY 12/10/16 05/06/17 History Allopurinol [Zyloprim] 100 mg PO BID 03/29/17 05/06/17 History Cyanocobalamin (Vitamin B-12) 1,000 mcg PO DAILY 03/29/17 05/06/17 History [Vitamin B-12] Ergocalciferol [Vitamin D2 50,000 unit PO Q7D 03/29/17 05/06/17 History (DRISDOL)] Famotidine [Pepcid] 20 mg PO DAILY 03/29/17 05/06/17 History Ferrous Sulfate [Iron (65 MG 325 mg PO BID 03/29/17 05/06/17 History Elemental)] Fexofenadine HCl [Lani Allergy] 180 mg PO DAILY 03/29/17 05/06/17 History Lurasidone HCl [Latuda] 120 mg PO PC-SUPPER 03/29/17 05/06/17 History Simvastatin [Zocor] 40 mg PO HS 03/29/17 05/06/17 History hydrOXYzine PAMOATE [Vistaril] 25 mg PO HS 03/29/17 05/06/17 History Allergies Allergy/AdvReac Type Severity Reaction Status Date / Time buspirone [From BuSpar] Allergy Unknown Verified 05/06/17 16:18 haloperidol [From Haldol] Allergy Swelling Verified 05/06/17 16:18 iodine Allergy Swelling Verified 05/06/17 16:18 Penicillins Allergy Swelling Verified 05/06/17 16:18 prochlorperazine Allergy Rash/Hives Verified 05/06/17 16:18 Sulfa (Sulfonamide Allergy Rash/Hives Verified 05/06/17 16:18 Antibiotics) Tetanus Vaccines and Toxoid Allergy Rash/Hives Verified 05/06/17 16:18 [Tetanus Vaccines & Toxoid] trifluoperazine HCl Allergy Unknown Verified 05/06/17 16:18 [From Stelazine] Physical Exam Vitals: Vital Signs Temp Pulse Pulse Pulse Resp BP BP 05/07/17 07:41 98.5 F 64 18 05/07/17 04:00 85 18 05/07/17 00:00 62 18 05/06/17 20:00 66 18 05/06/17 18:34 98.2 F 65 18 120/66 05/06/17 18:04 97.6 F 75 18 98/51 05/06/17 16:48 66 18 117/56 05/06/17 16:20 66 05/06/17 16:18 98 F 65 18 139/77 BP Pulse Ox 05/07/17 07:41 114/61 94 L 05/07/17 04:00 05/07/17 00:00 05/06/17 20:00 05/06/17 18:34 98 05/06/17 18:04 97 05/06/17 16:48 99 05/06/17 16:20 05/06/17 16:18 98 Intake and Output 05/06/17 05/07/17 05/07/17 22:59 06:59 14:59 Other: # Voids 1 Weight 159.9 kg GENERAL: This is a 57-year-old female in no apparent distress at the time of my examination. Morbid obesity. HEENT: Head is atraumatic, normocephalic. Pupils are equal, round. Sclerae anicteric. Conjunctivae are clear. Mucous membranes of the mouth are moist. Neck is supple. There is no jugular venous distention. No carotid bruit is heard. LUNGS: Clear to auscultation no wheezes, rales or rhonchi. Mild chest wall tenderness is noted on palpation and with deep breathing. HEART: Regular rate and rhythm with mild ejection murmur auscultated at the base , no rubs or gallops. S1 and S2 heard. ABDOMEN: Soft, nontender. Bowel sounds are heard. No organomegaly noted. EXTREMITIES: 2+ peripheral pulses with no evidence of peripheral edema and no calf tenderness noted. NEUROLOGIC: Patient is awake, alert and oriented x3. Results 05/06/17 16:35 05/06/17 16:35 Cardiac Enzymes 05/06/17 05/06/17 05/06/17 Range/Units 16:35 16:35 22:21 AST 23 (14-36) U/L CK-MB (CK-2) 0.6 0.6 (0.0-2.4) ng/mL Troponin I <0.012 <0.012 (0.000-0.034) ng/mL 05/07/17 Range/Units 04:22 AST (14-36) U/L CK-MB (CK-2) 0.5 (0.0-2.4) ng/mL Troponin I <0.012 (0.000-0.034) ng/mL Coagulation 05/06/17 Range/Units 17:20 PT 10.0 (9.0-12.0) sec APTT 22.8 (22.0-30.0) sec Lipids 05/07/17 Range/Units 04:22 Triglycerides 167 H (<150) mg/dL Cholesterol 194 (<200) mg/dL HDL Cholesterol 55 (40-60) mg/dL CBC 05/06/17 Range/Units 16:35 WBC 7.4 (3.8-10.6) k/uL RBC 4.07 (3.80-5.40) m/uL Hgb 12.2 (11.4-16.0) gm/dL Hct 37.0 (34.0-46.0) % Plt Count 256 (150-450) k/uL Comprehensive Metabolic Panel 05/06/17 Range/Units 16:35 Sodium 138 (137-145) mmol/L Potassium 4.3 (3.5-5.1) mmol/L Chloride 106 (98-107) mmol/L Carbon Dioxide 19 L (22-30) mmol/L BUN 28 H (7-17) mg/dL Creatinine 1.30 H (0.52-1.04) mg/dL Glucose 95 (74-99) mg/dL Calcium 9.4 (8.4-10.2) mg/dL AST 23 (14-36) U/L ALT 30 (9-52) U/L Alkaline Phosphatase 76 (38-126) U/L Total Protein 6.6 (6.3-8.2) g/dL Albumin 4.1 (3.5-5.0) g/dL Current Medications Generic Name Dose Route Start Last Admin Trade Name Freq PRN Reason Stop Dose Admin Hydrocodone Bitart/Acetaminophen 1 each 05/06/17 21:21 05/07/17 07:29 [place]agen 5-325 PO 1 each Q6HR PRN Administration Moderate Pain Allopurinol 100 mg 05/06/17 21:00 05/06/17 21:35 Zyloprim PO 100 mg BID LISSETT Administration Aspirin 325 mg 05/07/17 09:00 Aspirin PO DAILY LISSETT Atorvastatin Calcium 20 mg 05/06/17 21:00 05/06/17 21:35 Lipitor PO 20 mg HS LISSETT Administration Carvedilol 25 mg 05/06/17 21:00 05/06/17 21:35 Coreg PO 25 mg AC-BID LISSETT Administration Ferrous Sulfate 325 mg 05/06/17 21:00 05/06/17 21:35 Feosol PO 325 mg BID LISSETT Administration Gabapentin 600 mg 05/06/17 22:00 05/06/17 21:36 Neurontin PO 600 mg QID LISSETT Administration Hydroxyzine Pamoate 25 mg 05/06/17 21:00 05/06/17 21:36 Vistaril PO 25 mg HS LISSETT Administration Lurasidone HCl 120 mg 05/06/17 20:30 05/06/17 21:34 Latuda PO 120 mg PC-SUPPER LISSETT Administration Nitroglycerin 1 inch 05/06/17 18:00 05/07/17 06:01 Nitro-Bid Oint TOPICAL Not Given Q6HR LISSETT Nitroglycerin 0.4 mg 05/06/17 17:40 Nitrostat SUBLINGUAL Q5M PRN Chest Pain Ropinirole HCl 3 mg 05/07/17 20:00 Requip PO DAILY@2000 LISSETT Topiramate 100 mg 05/06/17 21:00 05/06/17 21:36 Topamax PO 100 mg BID LISSETT Administration Trazodone HCl 200 mg 05/06/17 21:00 05/06/17 21:36 Desyrel PO 200 mg HS LISSETT Administration Intake and Output 05/06/17 05/07/17 05/07/17 22:59 06:59 14:59 Other: # Voids 1 Weight 159.9 kg 05/06/17 16:35 05/06/17 16:35 EKG Interpretations (text) EKG indicates a normal sinus mechanism with no ST or T-wave abnormalities. Assessment and Plan Plan: ASSESSMENT 1. Chest pain, atypical 2. Hypertension 3. Hyperlipidemia 4. Hypothyroidism 5. Diabetes mellitus 6. Morbid obesity PLAN Patient has chest discomfort more musculoskeletal in nature. She has frequent cardiac evaluations. She had a normal dobutaime stress test in December of this year. In light of elevated kidney function we would not suggest a cardiac catheterization at this time. She should get up and walk, eat breakfast and she can be discharged home to follow up with Dr. Lenz as an outpatient. We thank you kindly for this consultation. She requests this be discussed with her legal guardian. Message has been left with the office. Nurse Practitioner note has been reviewed, I agree with a documented findings and plan of care. Patient was seen and examined.
[2017-05-07 11:57] LABS: Glucose,Whole Blood 107 mg/dL (75-99)
[2017-05-07 12:14] LABS: Hemoglobin A1C 5.6 % (4.2-6.1)
--- NOTE | 2017-05-07 15:41 | P.HPIM ---
History of Present Illness H&P Date: 05/07/17 (Discharge summary as well) This is a 57 year old female that was recently in the hospital with the complaint of chest pain. Patient comes in the hospital from a senior care with complaints of midsternal chest pain of sudden onset. Patient in the emergency room underwent a EKG which did not reveal ST-T wave changes. Patient also underwent a stress echocardiogram in December 2016 which was negative for any inducible ischemia Patient appears to have some anxiety about her current senior care and once to be moved. Stated that she did try some breathing exercises however did not relieve her chest and hence, the hospital for further workup Review of system 14 point review of systems was done nonpertinent was mentionable Exam Gen. appearance oriented 3 does not appear to be dyspneic is supple no JVD The heart S1-S2 are regular rate no murmurs appreciated Lungs good air entry clear to auscultation or rhonchi wheezing or crackles Abdomen is obese soft nontender no organomegaly Lower extremities no edema noted Neuro no focal motor or sensory deficits noted. Assessment and plan #1 atypical chest pain ACS is ruled out #2 CAD #3 diabetes most #4 his lipidemia 5 hypertension. #6 [place] arthritis. #7 hypothyroidism #8 bipolar disorder #9 clinical obstructive sleep apnea Plan She'll be discharged back to her senior care patient agrees to the current recommendations she states that she is working with her public guardian for placement another senior care Past Medical History Past Medical History: Asthma, Diabetes Mellitus, Hyperlipidemia, Hypertension, Musculoskeletal Disorder, Osteoarthritis (OA), Thyroid Disorder Additional Past Medical History / Comment(s): Morbid obesity History of Any Multi-Drug Resistant Organisms: None Reported Past Surgical History: Bariatric Surgery, Hernia Repair, Orthopedic Surgery Additional Past Surgical History / Comment(s): Total Right knee replacement, 3 hernia repairs. Left hip repair Past Anesthesia/Blood Transfusion Reactions: No Reported Reaction Past Psychological History: Anxiety, Bipolar, Depression Additional Psychological History / Comment(s): borderline personality disorder Smoking Status: Never smoker Past Alcohol Use History: None Reported Past Drug Use History: None Reported - Past Family History Mother Family Medical History: Cancer Additional Family Medical History / Comment(s): lung cancer Father Additional Family Medical History / Comment(s): "my dad from a blood clot" patient is unsure where the blood clot was. Brother(s) Family Medical History: Diabetes Mellitus Sister(s) Additional Family Medical History / Comment(s): "her heart races too fast" Medications and Allergies Home Medications Medication Instructions Recorded Confirmed Type Gabapentin [Neurontin] 600 mg PO QID 07/09/15 05/06/17 History Carvedilol 25 mg PO BID 10/10/15 05/06/17 History Levothyroxine Sodium [Synthroid] 137 mcg PO DAILY 11/05/15 05/06/17 History DULoxetine HCL [Cymbalta] 60 mg PO DAILY 05/05/16 05/06/17 History rOPINIRole HCL [Requip] 3 mg PO DAILY@199905/05/16 05/06/17 History Furosemide [Lasix] 40 mg PO QAM 10/25/16 05/06/17 History Topiramate [Topamax] 100 mg PO BID 10/25/16 05/06/17 History rOPINIRole HCL [Requip] 2 mg PO DAILY@0800 10/30/16 05/06/17 History Ibuprofen [Motrin] 600 mg PO QID 11/03/16 05/06/17 History traZODone HCL [Desyrel] 200 mg PO HS 11/03/16 05/06/17 History Mirabegron [Myrbetriq] 25 mg PO DAILY 12/10/16 05/06/17 History Allopurinol [Zyloprim] 100 mg PO BID 03/29/17 05/06/17 History Cyanocobalamin (Vitamin B-12) 1,000 mcg PO DAILY 03/29/17 05/06/17 History [Vitamin B-12] Ergocalciferol [Vitamin D2 50,000 unit PO Q7D 03/29/17 05/06/17 History (DRISDOL)] Famotidine [Pepcid] 20 mg PO DAILY 03/29/17 05/06/17 History Ferrous Sulfate [Iron (65 MG 325 mg PO BID 03/29/17 05/06/17 History Elemental)] Fexofenadine HCl [Lani Allergy] 180 mg PO DAILY 03/29/17 05/06/17 History Lurasidone HCl [Latuda] 120 mg PO PC-SUPPER 03/29/17 05/06/17 History Simvastatin [Zocor] 40 mg PO HS 03/29/17 05/06/17 History hydrOXYzine PAMOATE [Vistaril] 25 mg PO HS 03/29/17 05/06/17 History Allergies Allergy/AdvReac Type Severity Reaction Status Date / Time buspirone [From BuSpar] Allergy Unknown Verified 05/06/17 16:18 haloperidol [From Haldol] Allergy Swelling Verified 05/06/17 16:18 iodine Allergy Swelling Verified 05/06/17 16:18 Penicillins Allergy Swelling Verified 05/06/17 16:18 prochlorperazine Allergy Rash/Hives Verified 05/06/17 16:18 Sulfa (Sulfonamide Allergy Rash/Hives Verified 05/06/17 16:18 Antibiotics) Tetanus Vaccines and Toxoid Allergy Rash/Hives Verified 05/06/17 16:18 [Tetanus Vaccines & Toxoid] trifluoperazine HCl Allergy Unknown Verified 05/06/17 16:18 [From Stelazine] Physical Exam Vitals: Vital Signs Temp Pulse Pulse Pulse Resp BP BP 05/07/17 12:00 85 63 18 05/07/17 11:50 98.5 F 63 18 05/07/17 08:00 85 64 18 05/07/17 07:41 98.5 F 64 18 05/07/17 04:00 85 18 05/07/17 00:00 62 18 05/06/17 20:00 66 18 05/06/17 18:34 98.2 F 65 18 120/66 05/06/17 18:04 97.6 F 75 18 98/51 05/06/17 16:48 66 18 117/56 05/06/17 16:20 66 05/06/17 16:18 98 F 65 18 139/77 BP Pulse Ox 05/07/17 12:00 05/07/17 11:50 112/63 96 05/07/17 08:00 05/07/17 07:41 114/61 94 L 05/07/17 04:00 05/07/17 00:00 05/06/17 20:00 05/06/17 18:34 98 05/06/17 18:04 97 05/06/17 16:48 99 05/06/17 16:20 05/06/17 16:18 98 Intake and Output 05/07/17 05/07/17 05/07/17 06:59 14:59 22:59 Intake Total 240 Balance 240 Intake: Oral 240 Other: Voiding Method Toilet # Voids 1 1 Results CBC & Chem 7: 05/06/17 16:35 05/06/17 16:35 Labs: Abnormal Lab Results - Last 24 Hours (Table) 05/06/17 05/06/17 05/07/17 Range/Units 16:35 18:17 04:22 Carbon Dioxide 19 L (22-30) mmol/L BUN 28 H (7-17) mg/dL Creatinine 1.30 H (0.52-1.04) mg/dL POC Glucose (mg/dL) 109 H (75-99) mg/dL Total Creatine Kinase 29 L (30-135) U/L Triglycerides (<150) mg/dL LDL Cholesterol, Calc (0-99) mg/dL 05/07/17 05/07/17 Range/Units 04:22 11:55 Carbon Dioxide (22-30) mmol/L BUN (7-17) mg/dL Creatinine (0.52-1.04) mg/dL POC Glucose (mg/dL) 107 H (75-99) mg/dL Total Creatine Kinase (30-135) U/L Triglycerides 167 H (<150) mg/dL LDL Cholesterol, Calc 106 H (0-99) mg/dL Thrombosis Risk Factor Assmnt - Choose All That Apply Any of the Below Risk Factors Present?: Yes Each Factor Represents 1 point: Age 41-60 years, Obesity (BMI >25) Thrombosis Risk Factor Assessment Total Risk Factor Score: 2 Thrombosis Risk Factor Assessment Level: Low Risk
[2017-05-07 15:42] VITALS: BP 116/76; PULSE 70; TEMP 98.3
[2017-05-08] MEDS ORDERED: FAMOTIDINE 20 MG TAB PO SCH (09:00)
[2017-05-08] MEDS ORDERED: DULoxetine HCL 60 MG CAPSULE.DR PO SCH (09:00)
[2017-05-08] MEDS ORDERED: LORATADINE 10 MG TAB PO SCH (09:00)
[2017-05-08] MEDS ORDERED: FUROSEMIDE 40 MG TAB PO SCH (09:00)
[2017-05-08] MEDS ORDERED: CYANOCOBALAMIN 500 MCG TAB PO SCH (09:00)
[2017-05-08] MEDS ORDERED: NON-FORMULARY DRUG (Mirabegron [Myrbetriq] 25 MG) PO SCH (09:00)
[2017-05-08] MEDS ORDERED: ERGOCALCIFEROL 50,000 UNIT CAP PO SCH (12:00)
== END 2017-05-07 16:15 | disposition home or self-care (01) ==
LOC: EC 16:13 → 3OBS 17:40
PROVIDERS: ADMIT Internal Medicine; ATTEND Internal Medicine
DX: R07.89 Other chest pain (principal); R07.2 Precordial pain; I25.10 Atherosclerotic heart disease of native coronary artery without angina pectoris; E11.9 Type 2 diabetes mellitus without complications; E78.5 Hyperlipidemia, unspecified; I10 Essential (primary) hypertension; M19.90 Unspecified osteoarthritis, unspecified site; E03.9 Hypothyroidism, unspecified; F31.9 Bipolar disorder, unspecified; G47.33 Obstructive sleep apnea (adult) (pediatric); E66.01 Morbid (severe) obesity due to excess calories; Z68.43 Body mass index [BMI] 50.0-59.9, adult; R06.02 Shortness of breath; M79.602 Pain in left arm; R74.8 Abnormal levels of other serum enzymes; R11.0 Nausea; F41.9 Anxiety disorder, unspecified; F60.3 Borderline personality disorder; Z79.1 Long term (current) use of non-steroidal anti-inflammatories (NSAID); Z79.899 Other long term (current) drug therapy; Z88.8 Allergy status to other drugs, medicaments and biological substances; Z88.3 Allergy status to other anti-infective agents; Z88.0 Allergy status to penicillin; Z88.2 Allergy status to sulfonamides; Z88.7 Allergy status to serum and vaccine; Z80.1 Family history of malignant neoplasm of trachea, bronchus and lung; Z98.84 Bariatric surgery status; Z96.651 Presence of right artificial knee joint
CPT/HCPCS: 99285; 96374; 36415; 93005; 80061; 80053; 83036; 82550 ×2; 82553 ×2; 83735; 84484 ×2; 85025; 85610; 85730; 71020; G0378 ×2; J2405

== ENCOUNTER 2017-05-17 17:21 | Emergency (ER) | payer MEDICARE, OTHER ==
--- NOTE | 2017-05-17 18:04 | ED ---
General Adult HPI - General Chief complaint: Psychiatric Symptoms Stated complaint: Mental Health Time Seen by Provider: 05/17/17 17:23 Source: patient, EMS, RN notes reviewed Mode of arrival: EMS Limitations: no limitations - History of Present Illness Initial comments: 57 yo female past medical history hypertension diabetes presents with suicidal ideation. Patient has had multiple psychiatric evaluations and inpatient psychiatric admissions in the past. She states she is unable to deal with ice stress. She plans on killing herself by stabbing a knife in her neck. She denies any substance ingestion today. Denies any homicidal ideation. Denies visual or auditory hallucinations. - Related Data Home Medications Medication Instructions Recorded Confirmed Gabapentin [Neurontin] 600 mg PO QID 07/09/15 05/17/17 Carvedilol 25 mg PO BID 10/10/15 05/17/17 Levothyroxine Sodium [Synthroid] 137 mcg PO DAILY 11/05/15 05/17/17 DULoxetine HCL [Cymbalta] 60 mg PO DAILY 05/05/16 05/17/17 rOPINIRole HCL [Requip] 3 mg PO DAILY@199905/05/16 05/17/17 Furosemide [Lasix] 40 mg PO QAM 10/25/16 05/17/17 Topiramate [Topamax] 100 mg PO BID 10/25/16 05/17/17 rOPINIRole HCL [Requip] 2 mg PO DAILY@0800 10/30/16 05/17/17 Ibuprofen [Motrin] 600 mg PO QID 11/03/16 05/17/17 traZODone HCL [Desyrel] 200 mg PO HS 11/03/16 05/17/17 Mirabegron [Myrbetriq] 25 mg PO DAILY 12/10/16 05/17/17 Allopurinol [Zyloprim] 100 mg PO BID 03/29/17 05/17/17 Cyanocobalamin (Vitamin B-12) 1,000 mcg PO DAILY 03/29/17 05/17/17 [Vitamin B-12] Ergocalciferol [Vitamin D2 50,000 unit PO MO 03/29/17 05/17/17 (DRISDOL)] Famotidine [Pepcid] 20 mg PO DAILY 03/29/17 05/17/17 Ferrous Sulfate [Iron (65 MG 325 mg PO BID 03/29/17 05/17/17 Elemental)] Fexofenadine HCl [Lani Allergy] 180 mg PO DAILY 03/29/17 05/17/17 Lurasidone HCl [Latuda] 120 mg PO PC-SUPPER 03/29/17 05/17/17 Simvastatin [Zocor] 40 mg PO HS 03/29/17 05/17/17 hydrOXYzine PAMOATE [Vistaril] 25 mg PO HS 03/29/17 05/17/17 Allergies Allergy/AdvReac Type Severity Reaction Status Date / Time buspirone [From BuSpar] Allergy Unknown Verified 05/17/17 18:22 haloperidol [From Haldol] Allergy Swelling Verified 05/17/17 18:22 iodine Allergy Swelling Verified 05/17/17 18:22 Penicillins Allergy Swelling Verified 05/17/17 18:22 prochlorperazine Allergy Rash/Hives Verified 05/17/17 18:22 Sulfa (Sulfonamide Allergy Rash/Hives Verified 05/17/17 18:22 Antibiotics) Tetanus Vaccines and Toxoid Allergy Rash/Hives Verified 05/17/17 18:22 [Tetanus Vaccines & Toxoid] trifluoperazine HCl Allergy Unknown Verified 05/06/17 16:18 [From Stelazine] Review of Systems ROS Statement: Those systems with pertinent positive or pertinent negative responses have been documented in the HPI. ROS Other: All systems not noted in ROS Statement are negative. Past Medical History Past Medical History: Asthma, Diabetes Mellitus, Hyperlipidemia, Hypertension, Musculoskeletal Disorder, Osteoarthritis (OA), Thyroid Disorder Additional Past Medical History / Comment(s): Morbid obesity History of Any Multi-Drug Resistant Organisms: None Reported Past Surgical History: Bariatric Surgery, Hernia Repair, Orthopedic Surgery Additional Past Surgical History / Comment(s): Total Right knee replacement, 3 hernia repairs. Left hip repair Past Anesthesia/Blood Transfusion Reactions: No Reported Reaction Past Psychological History: Anxiety, Bipolar, Depression Smoking Status: Never smoker Past Alcohol Use History: None Reported Past Drug Use History: None Reported - Past Family History Mother Family Medical History: Cancer Additional Family Medical History / Comment(s): lung cancer Father Additional Family Medical History / Comment(s): "my dad from a blood clot" patient is unsure where the blood clot was. Brother(s) Family Medical History: Diabetes Mellitus Sister(s) Additional Family Medical History / Comment(s): "her heart races too fast" General Exam Limitations: no limitations General appearance: alert, in no apparent distress, obese Head exam: Present: atraumatic, normocephalic Eye exam: Present: normal appearance, PERRL ENT exam: Present: normal exam, mucous membranes moist Neck exam: Present: normal inspection. Absent: tenderness, meningismus Respiratory exam: Present: normal lung sounds bilaterally. Absent: respiratory distress Cardiovascular Exam: Present: regular rate, normal rhythm GI/Abdominal exam: Present: soft. Absent: distended, tenderness Extremities exam: Present: normal inspection, normal capillary refill. Absent: pedal edema Neurological exam: Present: alert, oriented X3, CN II-XII intact. Absent: motor sensory deficit Psychiatric exam: Present: depressed, suicidal ideation Skin exam: Present: warm, dry, intact. Absent: cyanosis, diaphoretic Course Vital Signs 05/17/17 05/17/17 17:27 20:49 Temperature 97.0 F L 97.9 F Pulse Rate 70 58 L Respiratory 18 16 Rate Blood Pressure 148/86 143/76 O2 Sat by Pulse 98 94 L Oximetry Medical Decision Making - Medical Decision Making 57 yo female well-known to this emergency department presents with suicidal ideation. Patient was medically cleared and evaluated by EPS. Patient does admit that she is not happy with her current living situation. She [place] live in [place] [facility]. She has a bleeding with her guardian on Saturday to discuss the possibility of changing housing. Patient denies suicidal ideation at the time of EPS evaluation. She admits this is a means of obtaining a new living situation. Patient's vitals remained stable in the emergency department. She is comfortable with discharge. She will return to the emergency department with worsening symptoms. She will maintain her appointment with her guardian on Saturday which is 2 days from now. Diagnosis: Depression - Lab Data Lab Results 05/17/17 Range/Units 17:25 Urine Opiates Screen Not Detected (NotDetected) Ur Oxycodone Screen Not Detected (NotDetected) Urine Methadone Screen Not Detected (NotDetected) Ur Propoxyphene Screen Not Detected (NotDetected) Ur Barbiturates Screen Not Detected (NotDetected) U Tricyclic Antidepress Not Detected (NotDetected) Ur Phencyclidine Scrn Not Detected (NotDetected) Ur Amphetamines Screen Not Detected (NotDetected) U Methamphetamines Scrn Not Detected (NotDetected) U Benzodiazepines Scrn Not Detected (NotDetected) Urine Cocaine Screen Not Detected (NotDetected) U Marijuana (THC) Screen Not Detected (NotDetected) Disposition Clinical Impression: Depression Disposition: HOME SELF-CARE Condition: Good Instructions: Depression (ED) Referrals: Bharti Mendoza MD [Primary Care Provider] - 1-2 days Time of Disposition: 22:06
[2017-05-17 20:55] VITALS: RESP 16
[2017-05-17 23:13] VITALS: BP 140/73; PULSE 62; TEMP 98
== END 2017-05-17 23:13 | disposition home or self-care (01) ==
LOC: EC 17:21
DX: F32.9 Major depressive disorder, single episode, unspecified (principal); E11.9 Type 2 diabetes mellitus without complications; E78.5 Hyperlipidemia, unspecified; I10 Essential (primary) hypertension; E07.9 Disorder of thyroid, unspecified; M19.90 Unspecified osteoarthritis, unspecified site; F41.9 Anxiety disorder, unspecified; Z79.1 Long term (current) use of non-steroidal anti-inflammatories (NSAID); Z79.899 Other long term (current) drug therapy; Z88.0 Allergy status to penicillin; Z88.2 Allergy status to sulfonamides; Z88.7 Allergy status to serum and vaccine; Z88.8 Allergy status to other drugs, medicaments and biological substances; Z91.048 Other nonmedicinal substance allergy status
CPT/HCPCS: 80306; 82075; 99284

== ENCOUNTER 2017-05-23 14:34 | Emergency (ER) | payer MEDICARE, OTHER ==
[2017-05-23 14:50] VITALS: RESP 18
--- NOTE | 2017-05-23 15:07 | ED ---
General Adult HPI - General Source: patient, RN notes reviewed Mode of arrival: ambulatory Limitations: no limitations <Galdino Jean Baptiste - Last Filed: 05/23/17 18:59> <Cj Castillo - Last Filed: 05/23/17 21:56> - General Chief complaint: Psychiatric Symptoms Stated complaint: homicidal Time Seen by Provider: 05/23/17 14:50 - History of Present Illness Initial comments: This a 57-year-old female who presents to the emergency department complaining of being homicidal and suicidal. Patient states she wants to stab to her landlord and then stab herself to . Patient states she doesn't think this is normal and that she might need a medical physician so she took the bus here to the hospital today denies any alcohol or drug abuse. Patient denies any physical complaints today. Patient denies headache patient denies any numbness or weakness. Patient denies any chest pain or abdominal pain. Patient denies any recent fever chills. Patient denies any nausea or vomiting. Patient states this is the first time that she has been homicidal she normally is only suicidal. (Galdino Jean Baptiste) - Related Data Home Medications Medication Instructions Recorded Confirmed DULoxetine HCL [Cymbalta] 60 mg PO DAILY 05/05/16 05/23/17 rOPINIRole HCL [Requip] 3 mg PO DAILY@199905/05/16 05/23/17 Topiramate [Topamax] 100 mg PO BID 10/25/16 05/23/17 rOPINIRole HCL [Requip] 2 mg PO DAILY@0800 10/30/16 05/23/17 Ibuprofen [Motrin] 600 mg PO QID 11/03/16 05/23/17 traZODone HCL [Desyrel] 200 mg PO HS 11/03/16 05/23/17 Ergocalciferol [Vitamin D2 50,000 unit PO MO 03/29/17 05/23/17 (DRISDOL)] Famotidine [Pepcid] 20 mg PO DAILY 03/29/17 05/23/17 Ferrous Sulfate [Iron (65 MG 325 mg PO BID 03/29/17 05/23/17 Elemental)] Lurasidone HCl [Latuda] 120 mg PO PC-SUPPER 03/29/17 05/23/17 hydrOXYzine PAMOATE [Vistaril] 25 mg PO HS 03/29/17 05/23/17 Cyanocobalamin [Vitamin B-12 1,000 mcg SQ QMONTH 05/23/17 05/23/17 Injection] Fluticasone Nasal [place] [Flonase 2 spr EA NOSTRIL RT-BID 05/23/17 05/23/17 Nasal [place]] Mirabegron [Myrbetriq] 50 mg PO DAILY 05/23/17 05/23/17 SILVER sulfADIAZINE CREAM 1 applic TOPICAL DAILY 05/23/17 05/23/17 [Silvadene Cream] Allergies Allergy/AdvReac Type Severity Reaction Status Date / Time buspirone [From BuSpar] Allergy Unknown Verified 05/23/17 16:54 haloperidol [From Haldol] Allergy Swelling Verified 05/23/17 16:54 iodine Allergy Swelling Verified 05/23/17 16:54 Penicillins Allergy Swelling Verified 05/23/17 16:54 prochlorperazine Allergy Rash/Hives Verified 05/23/17 16:54 Sulfa (Sulfonamide Allergy Rash/Hives Verified 05/23/17 16:54 Antibiotics) Tetanus Vaccines and Toxoid Allergy Rash/Hives Verified 05/23/17 16:54 [Tetanus Vaccines & Toxoid] trifluoperazine HCl Allergy Unknown Verified 05/23/17 16:54 [From Stelazine] Review of Systems ROS Other: All systems not noted in ROS Statement are negative. <Galdino Jean Baptiste - Last Filed: 05/23/17 18:59> ROS Other: All systems not noted in ROS Statement are negative. <Cj Castillo - Last Filed: 05/23/17 21:56> ROS Statement: Those systems with pertinent positive or pertinent negative responses have been documented in the HPI. Past Medical History Past Medical History: Asthma, Diabetes Mellitus, Hyperlipidemia, Hypertension, Musculoskeletal Disorder, Osteoarthritis (OA), Thyroid Disorder Additional Past Medical History / Comment(s): Morbid obesity History of Any Multi-Drug Resistant Organisms: None Reported Past Surgical History: Bariatric Surgery, Hernia Repair, Orthopedic Surgery Additional Past Surgical History / Comment(s): Total Right knee replacement, 3 hernia repairs. Left hip repair Past Anesthesia/Blood Transfusion Reactions: No Reported Reaction Past Psychological History: Anxiety, Bipolar, Depression Smoking Status: Never smoker Past Alcohol Use History: None Reported Past Drug Use History: None Reported - Past Family History Mother Family Medical History: Cancer Additional Family Medical History / Comment(s): lung cancer Father Additional Family Medical History / Comment(s): "my dad from a blood clot" patient is unsure where the blood clot was. Brother(s) Family Medical History: Diabetes Mellitus Sister(s) Additional Family Medical History / Comment(s): "her heart races too fast" <Galdino Jean Baptiste - Last Filed: 05/23/17 18:59> General Exam Limitations: no limitations <Galdino Jean Baptiste - Last Filed: 05/23/17 18:59> <Cj Castillo - Last Filed: 05/23/17 21:56> - General Exam Comments Initial Comments: GENERAL: Patient is well-developed and well-nourished. Patient is nontoxic and well- hydrated and is in no acute distress. ENT: Neck is soft and supple. No significant lymphadenopathy is noted. Moist mucous membranes. Neck has full range of motion without eliciting any pain. EYES: The sclera were anicteric and conjunctiva were pink and moist. Extraocular movements were intact and pupils were equal round and reactive to light. Eyelids were unremarkable. PULMONARY: Unlabored respirations. Good breath sounds bilaterally. No audible rales rhonchi or wheezing was noted. CARDIOVASCULAR: There is a regular rate and rhythm without any murmurs gallops or rubs. ABDOMEN: Patient is morbidly obese SKIN: Skin is clear with no lesions or rashes and otherwise unremarkable. NEUROLOGIC: Patient is alert and oriented x3. Cranial nerves II through XII are grossly intact. Motor and sensory are also intact. Normal speech, volume and content. Symmetrical smile. MUSCULOSKELETAL: Normal extremities with adequate strength and full range of motion. LYMPHATICS: No significant lymphadenopathy is noted PSYCHIATRIC: Patient states she was homicidal and suicidal. (Galdino Jean Baptiste) Medical Decision Making <Galdino Jean Baptiste - Last Filed: 05/23/17 18:59> <Cj Castillo - Last Filed: 05/23/17 21:56> - Medical Decision Making I was asked to place an order for patient's home psychiatric medicines, otherwise did not have contact with this patient. (Cj Castillo) - Lab Data Lab Results 05/23/17 05/23/17 Range/Units 15:15 17:03 Urine Opiates Screen Not Detected (NotDetected) Ur Oxycodone Screen Not Detected (NotDetected) Urine Methadone Screen Not Detected (NotDetected) Ur Propoxyphene Screen Not Detected (NotDetected) Ur Barbiturates Screen Not Detected (NotDetected) U Tricyclic Antidepress Not Detected (NotDetected) Ur Phencyclidine Scrn Not Detected (NotDetected) Ur Amphetamines Screen Not Detected (NotDetected) U Methamphetamines Scrn Not Detected (NotDetected) U Benzodiazepines Scrn Not Detected (NotDetected) [place] <0.2 mmol/L Urine Cocaine Screen Not Detected (NotDetected) U Marijuana (THC) Screen Not Detected (NotDetected) Disposition Time of Disposition: 19:00 <Galdino Jean Baptiste - Last Filed: 05/23/17 18:59> <Cj Castillo - Last Filed: 05/23/17 21:56> Clinical Impression: Suicidal ideation, Homicidal ideation Disposition: TRANSFER TO PSYCH HOSP/UNIT Referrals: Bharti Mendoza MD [Primary Care Provider] - 1-2 days
[2017-05-23] MEDS ORDERED: IBUPROFEN 800 MG TAB PO STA (16:12)
[2017-05-23] MEDS ORDERED: LORazepam 2 MG/ML SYRINGE IV STA (18:59)
[2017-05-23] MEDS ORDERED: ZIPRASIDONE 20 MG VIAL IM STA (18:59)
[2017-05-23] MEDS ORDERED: LORazepam 2 MG/ML SYRINGE IM STA (19:28)
[2017-05-23] MEDS ORDERED: traZODone HCL 100 MG TAB PO ONE (21:52)
[2017-05-23] MEDS ORDERED: hydrOXYzine PAMOATE 25 MG CAP PO STA (21:53)
[2017-05-23 22:09] LABS: Glucose,Whole Blood 135 mg/dL (75-99)
[2017-05-23 23:07] VITALS: BP 100/52; PULSE 86; TEMP 97.3
[2017-05-24] MEDS ORDERED: DULoxetine HCL 60 MG CAPSULE.DR PO SCH (09:00)
[2017-05-24] MEDS ORDERED: TOPIRAMATE 100 MG TAB PO SCH (09:00)
[2017-05-24] MEDS ORDERED: LURASIDONE 40 MG TAB PO SCH (09:00)
== END 2017-05-23 23:49 ==
LOC: EC 14:34
DX: R45.851 Suicidal ideations (principal); R45.850 Homicidal ideations; J45.909 Unspecified asthma, uncomplicated; M19.90 Unspecified osteoarthritis, unspecified site; F32.9 Major depressive disorder, single episode, unspecified; F41.9 Anxiety disorder, unspecified; E66.01 Morbid (severe) obesity due to excess calories; Z79.1 Long term (current) use of non-steroidal anti-inflammatories (NSAID); Z79.51 Long term (current) use of inhaled steroids; Z79.899 Other long term (current) drug therapy; Z88.0 Allergy status to penicillin; Z88.2 Allergy status to sulfonamides; Z88.7 Allergy status to serum and vaccine; Z88.8 Allergy status to other drugs, medicaments and biological substances; Z91.048 Other nonmedicinal substance allergy status; Z68.43 Body mass index [BMI] 50.0-59.9, adult
CPT/HCPCS: 82075; 36415; 80178; 80306; 99285; 96372 ×2; J2060; J3486

== ENCOUNTER 2017-06-07 14:02 | Emergency (ER) | payer MEDICARE, OTHER ==
--- NOTE | 2017-06-07 14:06 | ED ---
Fall HPI - General Stated Complaint: Fall Time Seen by Provider: 06/07/17 14:03 Source: patient, EMS, RN notes reviewed, old records reviewed Mode of arrival: EMS Limitations: physical limitation - History of Present Illness Initial Comments: This a 57-year-old female presents emergency Department with chief complaint of fall. Patient presented emergency from via EMS. Patient states that she had a dizzy spell which she fell onto her left side. Patient was leaning on left side when EMS arrived they did report her back which helped improve her symptoms. Patient had a prior left hip fracture fixed by Dr. Call orthopedics. Patient states that she does have left hip pain the wrist on her left leg. She denies any head injury or loss conscious. Patient denies chest pain, shortness of breath. She states she is anxious as she has a history anxiety. Patient states that she's been having on and off dizzy spells for a while which is not usual. Patient has been told it was due to her blood pressure medication. - Related Data Home Medications Medication Instructions Recorded Confirmed RX: rOPINIRole HCL [Requip] 3 mg PO DAILY@199905/05/16 06/07/17 RX: rOPINIRole HCL [Requip] 2 mg PO DAILY@0810/30/16 06/07/17 RX: traZODone HCL [Desyrel] 200 mg PO HS 11/03/16 05/23/17 RX: Ergocalciferol [Vitamin D2 50,000 unit PO MO 03/29/17 05/23/17 (DRISDOL)] RX: Famotidine [Pepcid] 20 mg PO DAILY 03/29/17 05/23/17 RX: Ferrous Sulfate [Iron (65 MG 325 mg PO BID 03/29/17 05/23/17 Elemental)] RX: Lurasidone HCl [Latuda] 120 mg PO PC-SUPPER 03/29/17 05/23/17 RX: hydrOXYzine PAMOATE [Vistaril] 25 mg PO HS 03/29/17 05/23/17 Fluticasone Nasal [place] [Flonase 2 spr EA NOSTRIL RT-BID 05/23/17 05/23/17 Nasal [place]] Mirabegron [Myrbetriq] 50 mg PO DAILY 05/23/17 06/07/17 Atorvastatin [Lipitor] 10 mg PO HS 06/07/17 06/07/17 Benztropine Mesylate [Cogentin] 1 mg PO BID 06/07/17 06/07/17 Carvedilol [Coreg] 25 mg PO BID 06/07/17 06/07/17 Cholecalciferol [Vitamin D3] 1,000 unit PO DAILY 06/07/17 06/07/17 Divalproex Sodium [Depakote] 500 mg PO BID 06/07/17 06/07/17 Docusate [Colace] 100 mg PO DAILY PRN 06/07/17 06/07/17 Loratadine [Claritin] 10 mg PO DAILY PRN 06/07/17 06/07/17 Multivitamins, Thera [Multivitamin 1 tab PO DAILY 06/07/17 06/07/17 (formulary)] RX: Omeprazole 20 mg PO DAILY 06/07/17 06/07/17 Previous Rx's Medication Instructions Recorded Acetaminophen-Codeine 300-30mg 1 tab PO Q4H PRN #20 tablet 06/07/17 [Tylenol #3] Allergies Allergy/AdvReac Type Severity Reaction Status Date / Time buspirone [From BuSpar] Allergy Unknown Verified 06/07/17 15:08 haloperidol [From Haldol] Allergy Swelling Verified 06/07/17 15:08 iodine Allergy Swelling Verified 06/07/17 15:08 Penicillins Allergy Swelling Verified 06/07/17 15:08 prochlorperazine Allergy Rash/Hives Verified 06/07/17 15:08 Sulfa (Sulfonamide Allergy Rash/Hives Verified 06/07/17 15:08 Antibiotics) Tetanus Vaccines and Toxoid Allergy Rash/Hives Verified 06/07/17 15:08 [Tetanus Vaccines & Toxoid] trifluoperazine HCl Allergy Unknown Verified 06/07/17 15:08 [From Stelazine] Review of Systems ROS Statement: Those systems with pertinent positive or pertinent negative responses have been documented in the HPI. ROS Other: All systems not noted in ROS Statement are negative. Past Medical History Past Medical History: Asthma, Diabetes Mellitus, Hyperlipidemia, Hypertension, Musculoskeletal Disorder, Osteoarthritis (OA), Thyroid Disorder Additional Past Medical History / Comment(s): Morbid obesity History of Any Multi-Drug Resistant Organisms: None Reported Past Surgical History: Bariatric Surgery, Hernia Repair, Orthopedic Surgery Additional Past Surgical History / Comment(s): Total Right knee replacement, 3 hernia repairs. Left hip repair Past Anesthesia/Blood Transfusion Reactions: No Reported Reaction Past Psychological History: Anxiety, Bipolar, Depression Smoking Status: Never smoker Past Alcohol Use History: None Reported Past Drug Use History: None Reported - Past Family History Mother Family Medical History: Cancer Additional Family Medical History / Comment(s): lung cancer Father Additional Family Medical History / Comment(s): "my dad from a blood clot" patient is unsure where the blood clot was. Brother(s) Family Medical History: Diabetes Mellitus Sister(s) Additional Family Medical History / Comment(s): "her heart races too fast" General Exam General appearance: alert, in no apparent distress, anxious, obese Head exam: Present: atraumatic, normocephalic, normal inspection Eye exam: Present: normal appearance, PERRL, EOMI. Absent: scleral icterus, conjunctival injection, periorbital swelling Respiratory exam: Present: normal lung sounds bilaterally. Absent: respiratory distress, wheezes, rales, rhonchi, stridor Cardiovascular Exam: Present: regular rate, normal rhythm, normal heart sounds. Absent: systolic murmur, diastolic murmur, rubs, gallop, clicks Extremities exam: Present: other (Tenderness to the left hip, pain with logroll there is no definite shortening or rotation noted) Neurological exam: Present: alert, oriented X3, CN II-XII intact, reflexes normal. Absent: motor sensory deficit Skin exam: Present: warm, dry, intact, normal color. Absent: rash Course Vital Signs 06/07/17 14:16 Temperature 97.7 F Pulse Rate 76 Respiratory 16 Rate Blood Pressure 141/81 O2 Sat by Pulse 97 Oximetry Medical Decision Making - Medical Decision Making 57-year-old female presented for fall. Patient went to left hip and left ankle pain there is no acute fracture per radiology reading. Patient has been having on and off dizzy spell she is asymptomatic at this time. EKG, lower reviewed no acute abnormality. Patient will be discharged return parameters were discussed. - Lab Data Result diagrams: 06/07/17 14:54 06/07/17 14:54 Lab Results 06/07/17 06/07/17 06/07/17 Range/Units 14:45 14:54 14:54 WBC 8.1 (3.8-10.6) k/uL RBC 4.14 (3.80-5.40) m/uL Hgb 12.8 (11.4-16.0) gm/dL Hct 38.6 (34.0-46.0) % MCV 93.2 (80.0-100.0) fL MCH 30.9 (25.0-35.0) pg MCHC 33.2 (31.0-37.0) g/dL RDW 13.0 (11.5-15.5) % Plt Count 271 (150-450) k/uL Neutrophils % 80 % Lymphocytes % 11 % Monocytes % 6 % Eosinophils % 1 % Basophils % 0 % Neutrophils # 6.5 (1.3-7.7) k/uL Lymphocytes # 0.9 L (1.0-4.8) k/uL Monocytes # 0.5 (0-1.0) k/uL Eosinophils # 0.1 (0-0.7) k/uL Basophils # 0.0 (0-0.2) k/uL PT (9.0-12.0) sec INR (<1.2) APTT (22.0-30.0) sec Sodium 134 L (137-145) mmol/L Potassium 4.8 (3.5-5.1) mmol/L Chloride 97 L (98-107) mmol/L Carbon Dioxide 27 (22-30) mmol/L Anion Gap 10 mmol/L BUN 17 (7-17) mg/dL Creatinine 0.79 (0.52-1.04) mg/dL Est GFR (MDRD) Af Amer >60 (>60 ml/min/1.73 sqM) Est GFR (MDRD) Non-Af >60 (>60 ml/min/1.73 sqM) Glucose 97 (74-99) mg/dL Calcium 9.2 (8.4-10.2) mg/dL Total Bilirubin 0.3 (0.2-1.3) mg/dL AST 24 (14-36) U/L ALT 26 (9-52) U/L Alkaline Phosphatase 101 (38-126) U/L Troponin I (0.000-0.034) ng/mL Total Protein 6.4 (6.3-8.2) g/dL Albumin 3.9 (3.5-5.0) g/dL Urine Color Light Yellow Urine Appearance Clear (Clear) Urine pH 5.0 (5.0-8.0) Ur Specific [place] 1.007 (1.001-1.035) Urine Protein Negative (Negative) Urine Glucose (UA) Negative (Negative) Urine Ketones Trace H (Negative) Urine Blood Negative (Negative) Urine Nitrite Negative (Negative) Urine Bilirubin Negative (Negative) Urine Urobilinogen <2.0 (<2.0) mg/dL Ur Leukocyte Esterase Negative (Negative) 06/07/17 06/07/17 Range/Units 14:54 14:54 WBC (3.8-10.6) k/uL RBC (3.80-5.40) m/uL Hgb (11.4-16.0) gm/dL Hct (34.0-46.0) % MCV (80.0-100.0) fL MCH (25.0-35.0) pg MCHC (31.0-37.0) g/dL RDW (11.5-15.5) % Plt Count (150-450) k/uL Neutrophils % % Lymphocytes % % Monocytes % % Eosinophils % % Basophils % % Neutrophils # (1.3-7.7) k/uL Lymphocytes # (1.0-4.8) k/uL Monocytes # (0-1.0) k/uL Eosinophils # (0-0.7) k/uL Basophils # (0-0.2) k/uL PT 9.5 (9.0-12.0) sec INR 0.9 (<1.2) APTT 24.2 (22.0-30.0) sec Sodium (137-145) mmol/L Potassium (3.5-5.1) mmol/L Chloride (98-107) mmol/L Carbon Dioxide (22-30) mmol/L Anion Gap mmol/L BUN (7-17) mg/dL Creatinine (0.52-1.04) mg/dL Est GFR (MDRD) Af Amer (>60 ml/min/1.73 sqM) Est GFR (MDRD) Non-Af (>60 ml/min/1.73 sqM) Glucose (74-99) mg/dL Calcium (8.4-10.2) mg/dL Total Bilirubin (0.2-1.3) mg/dL AST (14-36) U/L ALT (9-52) U/L Alkaline Phosphatase (38-126) U/L Troponin I <0.012 (0.000-0.034) ng/mL Total Protein (6.3-8.2) g/dL Albumin (3.5-5.0) g/dL Urine Color Urine Appearance (Clear) Urine pH (5.0-8.0) Ur Specific [place] (1.001-1.035) Urine Protein (Negative) Urine Glucose (UA) (Negative) Urine Ketones (Negative) Urine Blood (Negative) Urine Nitrite (Negative) Urine Bilirubin (Negative) Urine Urobilinogen (<2.0) mg/dL Ur Leukocyte Esterase (Negative) 06/07/17 15:25 EKG performed at 15:20 normal sinus rhythm with a rate of 64 CA interval 142 QRS duration 94 QT/QTc 416/429 Disposition Clinical Impression: Fall, Contusion of left hip, Left ankle sprain, Episode of dizziness Disposition: HOME SELF-CARE Condition: Stable Instructions: Hip Contusion (ED) Additional Instructions: Please return to the Emergency Department if symptoms worsen or any other concerns. Prescriptions: Acetaminophen-Codeine 300-30mg [Tylenol #3] 1 tab PO Q4H PRN #20 tablet PRN Reason: pain Referrals: Bharti Mendoza MD [Primary Care Provider] - 1-2 days Time of Disposition: 15:55
[2017-06-07 14:22] VITALS: BP 141/81; PULSE 76; RESP 16; TEMP 97.7
[2017-06-07 15:01] LABS: Appearance,Urine Clear (Clear); Bilirubin,Urine Negative (Negative); Glucose,Urine (UA) Negative (Negative); Ketones,Urine Trace (Negative); Leukocyte Esterase,Urine Negative (Negative); Nitrite,Urine Negative (Negative); Protein,Urine Negative (Negative); Specific Gravity,Urine 1.007 (1.001-1.035); UA Billing (MACRO vs. MICRO) CHEM; Urobilinogen,Urine <2.0 mg/dL (<2.0)
[2017-06-07 15:02] LABS: Basophils % (A) 0 %; CH 29.8; CHCM 32.1; Eosinophils # (A) 0.1 k/uL (0-0.7); Eosinophils % (A) 1 %; HCT 38.6 % (34.0-46.0); HGB 12.8 gm/dL (11.4-16.0); Luc # (Auto) 0.16; Luc % (Auto) 2; Lymphocytes # (A) 0.9 k/uL (1.0-4.8); Lymphocytes % (A) 11 %; MCH 30.9 pg (25.0-35.0); MCHC 33.2 g/dL (31.0-37.0); MCV 93.2 fL (80.0-100.0); Mean Platelet Volume 7.1; Monocytes # (A) 0.5 k/uL (0-1.0); Monocytes % (A) 6 %; Neutrophils # (A) 6.5 k/uL (1.3-7.7); Neutrophils % (A) 80 %; RBC 4.14 m/uL (3.80-5.40); WBC 8.1 k/uL (3.8-10.6); WBC (Perox) 8.26
[2017-06-07] MEDS ORDERED: ONDANSETRON 4 MG/2 ML VIAL IVP STA (15:02)
[2017-06-07] MEDS ORDERED: MORPHINE SULFATE 4 MG/ML SYRINGE IVP STA (15:02)
[2017-06-07 15:10] LABS: Glucose 97 mg/dL (74-99)
[2017-06-07 15:11] LABS: ALT 26 U/L (9-52); AST 24 U/L (14-36); Alkaline Phosphatase 101 U/L (38-126); Anion Gap 10 mmol/L; Blood Urea Nitrogen 17 mg/dL (7-17); Calcium 9.2 mg/dL (8.4-10.2); Carbon Dioxide 27 mmol/L (22-30); Chloride 97 mmol/L (98-107); Non-African American GFR(MDRD) >60 (>60 ml/min/1.73 sqM); Potassium 4.8 mmol/L (3.5-5.1); Sodium 134 mmol/L (137-145); Total Bilirubin 0.3 mg/dL (0.2-1.3); Total Protein 6.4 g/dL (6.3-8.2)
--- NOTE | 2017-06-07 15:11 | XR ---
EXAMINATION TYPE: XR ankle complete LT DATE OF EXAM: 06/07/2017 COMPARISON: NONE HISTORY: Pain TECHNIQUE: 3 views of the left ankle are submitted for evaluation. FINDINGS: There is no evidence for fracture or dislocation. Ankle mortise is intact. Soft tissue hortencia a suggested. IMPRESSION: 1. No evidence for acute fracture.
--- NOTE | 2017-06-07 15:13 | XR ---
EXAMINATION TYPE: XR Hip LT and AP Pelvis DATE OF EXAM: 06/07/2017 CLINICAL HISTORY: pain TECHNIQUE: AP and frogleg views of the left hip are obtained. Single view of the pelvis is also subm itted. COMPARISON: None. FINDINGS: There is no acute fracture/dislocation evident. Dynamic compression screw and sideplate le ft. The overlying soft tissue appears unremarkable. IMPRESSION: 1. There is no acute fracture or dislocation.ICD 10 NO FRACTURE, INITIAL EVALUATION
[2017-06-07 15:14] LABS: INR 0.9 (<1.2); Partial Thromboplastin Time 24.2 sec (22.0-30.0); Prothrombin Time 9.5 sec (9.0-12.0)
== END 2017-06-07 16:16 | disposition home or self-care (01) ==
LOC: EC 14:02
DX: S93.402A Sprain of unspecified ligament of left ankle, initial encounter (principal); S70.02XA Contusion of left hip, initial encounter; R42 Dizziness and giddiness; J45.909 Unspecified asthma, uncomplicated; E78.5 Hyperlipidemia, unspecified; I10 Essential (primary) hypertension; E07.9 Disorder of thyroid, unspecified; E66.01 Morbid (severe) obesity due to excess calories; F41.9 Anxiety disorder, unspecified; F31.9 Bipolar disorder, unspecified; Z98.84 Bariatric surgery status; Z96.652 Presence of left artificial knee joint; Z79.51 Long term (current) use of inhaled steroids; Z79.899 Other long term (current) drug therapy; Z88.0 Allergy status to penicillin; Z88.2 Allergy status to sulfonamides; Z88.7 Allergy status to serum and vaccine; Z88.8 Allergy status to other drugs, medicaments and biological substances; Z91.048 Other nonmedicinal substance allergy status; W07.XXXA Fall from chair, initial encounter
CPT/HCPCS: 99284 ×2; 96374 ×2; 96375 ×2; 36415; 93005; 80053; 84484; 85025; 85610; 85730; 81003; 73502; 73610; J2270; J2405

== ENCOUNTER 2017-06-09 18:00 | Emergency (ER) | payer MEDICARE, OTHER ==
[2017-06-09 19:15] LABS: Basophils % (A) 0 %; CH 29.8; CHCM 31.5; Eosinophils # (A) 0.1 k/uL (0-0.7); Eosinophils % (A) 1 %; HCT 39.7 % (34.0-46.0); HDW 2.11; HGB 12.5 gm/dL (11.4-16.0); Luc # (Auto) 0.24; Luc % (Auto) 4; Lymphocytes # (A) 1.6 k/uL (1.0-4.8); Lymphocytes % (A) 25 %; MCHC 31.6 g/dL (31.0-37.0); Mean Platelet Volume 7.1; Monocytes # (A) 0.4 k/uL (0-1.0); Monocytes % (A) 6 %; Neutrophils % (A) 64 %; RBC 4.18 m/uL (3.80-5.40); RDW 13.1 % (11.5-15.5); WBC 6.3 k/uL (3.8-10.6); WBC (Perox) 6.15
[2017-06-09 19:25] LABS: Appearance,Urine Cloudy (Clear); Bacteria,Urine Rare /hpf; Bilirubin,Urine Negative (Negative); Glucose,Urine (UA) Negative (Negative); Ketones,Urine Trace (Negative); Leukocyte Esterase,Urine Moderate (Negative); Mucus,Urine Rare /hpf; Nitrite,Urine Negative (Negative); PH, Urine 6.5 (5.0-8.0); Particle Count 4377; Protein,Urine Negative (Negative); RBC,Urine 1 /hpf (0-5); Specific Gravity,Urine 1.017 (1.001-1.035); Squamous Epithelial Cell,Urine 7 /hpf (0-4); UA Billing (MACRO vs. MICRO) MICRO; WBC,Urine 11 /hpf (0-5)
[2017-06-09 19:26] LABS: Acetaminophen <10.0 ug/mL; Alcohol <10 mg/dL; Anion Gap 10 mmol/L; Blood Urea Nitrogen 16 mg/dL (7-17); Calcium 8.9 mg/dL (8.4-10.2); Carbon Dioxide 25 mmol/L (22-30); Chloride 103 mmol/L (98-107); Glucose 86 mg/dL (74-99); Non-African American GFR(MDRD) >60 (>60 ml/min/1.73 sqM); Potassium 4.2 mmol/L (3.5-5.1); Salicylate <1.0 mg/dL; Sodium 138 mmol/L (137-145)
--- NOTE | 2017-06-09 20:41 | ED ---
General Adult HPI - General Chief complaint: Psychiatric Symptoms Stated complaint: Mental Health Time Seen by Provider: 06/09/17 18:28 Source: EMS, RN notes reviewed, old records reviewed Mode of arrival: EMS - History of Present Illness Initial comments: This is a 57-year-old female to the ER for evaluation. Patient comes in for evaluation regarding suicidal thoughts making threats to harm herself. Patient has multiple recent psychiatric evaluations, including recent inpatient hospital physician here at this hospital. Patient denies drugs or alcohol at this time. States she does take medications as prescribed - Related Data Home Medications Medication Instructions Recorded Confirmed rOPINIRole HCL [Requip] 3 mg PO DAILY@199905/05/16 06/09/17 rOPINIRole HCL [Requip] 2 mg PO DAILY@79910/30/16 06/09/17 traZODone HCL [Desyrel] 200 mg PO HS@199911/03/16 06/09/17 Ergocalciferol [Vitamin D2 50,000 unit PO MO@79903/29/17 06/09/17 (DRISDOL)] Famotidine [Pepcid] 20 mg PO DAILY@0800 03/29/17 06/09/17 Ferrous Sulfate [Iron (65 MG 325 mg PO BID@0800,199903/29/17 06/09/17 Elemental)] Lurasidone HCl [Latuda] 120 mg PO PC-SUPPER@1800 03/29/17 06/09/17 hydrOXYzine PAMOATE [Vistaril] 25 mg PO HS@199903/29/17 06/09/17 Mirabegron [Myrbetriq] 50 mg PO DAILY@0800 05/23/17 06/09/17 Atorvastatin [Lipitor] 10 mg PO HS@199906/07/17 06/09/17 Carvedilol [Coreg] 25 mg PO BID@0800,199906/07/17 06/09/17 Cholecalciferol [Vitamin D3] 1,000 unit PO DAILY@0800 06/07/17 06/09/17 Divalproex Sodium [Depakote] 500 mg PO BID@0800,199906/07/17 06/09/17 Docusate [Colace] 100 mg PO HS@1999 PRN 06/07/17 06/09/17 Loratadine [Claritin] 10 mg PO DAILY@0800 PRN 06/07/17 06/09/17 Multivitamins, Thera [Multivitamin 1 tab PO DAILY@0800 06/07/17 06/09/17 (formulary)] Omeprazole 20 mg PO DAILY@0800 06/07/17 06/09/17 Ibuprofen [Motrin] 600 mg PO QID@08,12,16,20 06/09/17 06/09/17 Allergies Allergy/AdvReac Type Severity Reaction Status Date / Time buspirone [From BuSpar] Allergy Unknown Verified 06/07/17 15:08 haloperidol [From Haldol] Allergy Swelling Verified 06/07/17 15:08 iodine Allergy Swelling Verified 06/07/17 15:08 Penicillins Allergy Swelling Verified 06/07/17 15:08 prochlorperazine Allergy Rash/Hives Verified 06/07/17 15:08 Sulfa (Sulfonamide Allergy Rash/Hives Verified 06/07/17 15:08 Antibiotics) Tetanus Vaccines and Toxoid Allergy Rash/Hives Verified 06/07/17 15:08 [Tetanus Vaccines & Toxoid] trifluoperazine HCl Allergy Unknown Verified 06/07/17 15:08 [From Stelazine] Review of Systems ROS Statement: Those systems with pertinent positive or pertinent negative responses have been documented in the HPI. ROS Other: All systems not noted in ROS Statement are negative. Past Medical History Past Medical History: Asthma, Diabetes Mellitus, Hyperlipidemia, Hypertension, Musculoskeletal Disorder, Osteoarthritis (OA), Thyroid Disorder Additional Past Medical History / Comment(s): Morbid obesity History of Any Multi-Drug Resistant Organisms: None Reported Past Surgical History: Bariatric Surgery, Hernia Repair, Orthopedic Surgery Additional Past Surgical History / Comment(s): Total Right knee replacement, 3 hernia repairs. Left hip repair Past Anesthesia/Blood Transfusion Reactions: No Reported Reaction Past Psychological History: Anxiety, Bipolar, Depression Smoking Status: Never smoker Past Alcohol Use History: None Reported Past Drug Use History: None Reported - Past Family History Mother Family Medical History: Cancer Additional Family Medical History / Comment(s): lung cancer Father Additional Family Medical History / Comment(s): "my dad from a blood clot" patient is unsure where the blood clot was. Brother(s) Family Medical History: Diabetes Mellitus Sister(s) Additional Family Medical History / Comment(s): "her heart races too fast" General Exam General appearance: alert, in no apparent distress Head exam: Present: atraumatic, normocephalic, normal inspection Eye exam: Present: normal appearance, PERRL, EOMI. Absent: scleral icterus, conjunctival injection, periorbital swelling ENT exam: Present: normal exam, mucous membranes moist Neck exam: Present: normal inspection. Absent: tenderness, meningismus, lymphadenopathy Respiratory exam: Present: normal lung sounds bilaterally. Absent: respiratory distress, wheezes, rales, rhonchi, stridor Cardiovascular Exam: Present: regular rate, normal rhythm, normal heart sounds. Absent: systolic murmur, diastolic murmur, rubs, gallop, clicks GI/Abdominal exam: Present: soft, normal bowel sounds. Absent: distended, tenderness, guarding, rebound, rigid Extremities exam: Present: normal inspection, full ROM, normal capillary refill. Absent: tenderness, pedal edema, joint swelling, calf tenderness Back exam: Present: normal inspection Neurological exam: Present: alert, oriented X3, CN II-XII intact Psychiatric exam: Present: normal affect, normal mood Skin exam: Present: warm, dry, intact, normal color. Absent: rash Course Vital Signs 06/09/17 18:03 Temperature 98.7 F Pulse Rate 69 Respiratory 18 Rate Blood Pressure 137/72 O2 Sat by Pulse 98 Oximetry - Reevaluation(s) Reevaluation #1: 06/09/17 20:40 Patient is medically clear for psychiatric evaluation Medical Decision Making - Medical Decision Making 57 seen at ER for evaluation of psychiatric disease, patient seen and evaluated with psychiatry, patient didn't medically stable for an clinically stable for discharge home. Patient will be discharged, patient does have plan for outpatient evaluation - Lab Data Result diagrams: 06/09/17 18:47 06/09/17 18:47 Lab Results 06/09/17 06/09/17 06/09/17 Range/Units 18:47 18:47 18:47 WBC 6.3 (3.8-10.6) k/uL RBC 4.18 (3.80-5.40) m/uL Hgb 12.5 (11.4-16.0) gm/dL Hct 39.7 (34.0-46.0) % MCV 95.0 (80.0-100.0) fL MCH 30.0 (25.0-35.0) pg MCHC 31.6 (31.0-37.0) g/dL RDW 13.1 (11.5-15.5) % Plt Count 279 (150-450) k/uL Neutrophils % 64 % Lymphocytes % 25 % Monocytes % 6 % Eosinophils % 1 % Basophils % 0 % Neutrophils # 4.0 (1.3-7.7) k/uL Lymphocytes # 1.6 (1.0-4.8) k/uL Monocytes # 0.4 (0-1.0) k/uL Eosinophils # 0.1 (0-0.7) k/uL Basophils # 0.0 (0-0.2) k/uL Sodium 138 (137-145) mmol/L Potassium 4.2 (3.5-5.1) mmol/L Chloride 103 (98-107) mmol/L Carbon Dioxide 25 (22-30) mmol/L Anion Gap 10 mmol/L BUN 16 (7-17) mg/dL Creatinine 0.90 (0.52-1.04) mg/dL Est GFR (MDRD) Af Amer >60 (>60 ml/min/1.73 sqM) Est GFR (MDRD) Non-Af >60 (>60 ml/min/1.73 sqM) Glucose 86 (74-99) mg/dL Calcium 8.9 (8.4-10.2) mg/dL Urine Color Yellow Urine Appearance Cloudy H (Clear) Urine pH 6.5 (5.0-8.0) Ur Specific [place] 1.017 (1.001-1.035) Urine Protein Negative (Negative) Urine Glucose (UA) Negative (Negative) Urine Ketones Trace H (Negative) Urine Blood Negative (Negative) Urine Nitrite Negative (Negative) Urine Bilirubin Negative (Negative) Urine Urobilinogen 3.0 (<2.0) mg/dL Ur Leukocyte Esterase Moderate H (Negative) Urine RBC 1 (0-5) /hpf Urine WBC 11 H (0-5) /hpf Ur Squamous Epith Cells 7 H (0-4) /hpf Urine Bacteria Rare H (None) /hpf Urine Mucus Rare H (None) /hpf Salicylates <1.0 mg/dL Urine Opiates Screen Not Detected (NotDetected) Ur Oxycodone Screen Not Detected (NotDetected) Urine Methadone Screen Not Detected (NotDetected) Ur Propoxyphene Screen Not Detected (NotDetected) Acetaminophen <10.0 ug/mL Ur Barbiturates Screen Not Detected (NotDetected) U Tricyclic Antidepress Not Detected (NotDetected) Ur Phencyclidine Scrn Not Detected (NotDetected) Ur Amphetamines Screen Not Detected (NotDetected) U Methamphetamines Scrn Not Detected (NotDetected) U Benzodiazepines Scrn Not Detected (NotDetected) Urine Cocaine Screen Not Detected (NotDetected) U Marijuana (THC) Screen Not Detected (NotDetected) Serum Alcohol <10 mg/dL Disposition Clinical Impression: Depression Disposition: HOME SELF-CARE Condition: Good Instructions: Depression (ED) Referrals: Bharti Mendoza MD [Primary Care Provider] - 1-2 days
[2017-06-10] MEDS ORDERED: diphenhydrAMINE 50 MG CAP PO STA (00:25)
[2017-06-10] MEDS ORDERED: LORazepam 1 MG TAB PO STA ×2 (00:25→09:29)
[2017-06-10] MEDS ORDERED: IBUPROFEN 400 MG TAB PO STA (03:35)
[2017-06-10] MEDS ORDERED: FERROUS SULFATE 325 MG TAB PO STA (09:26)
[2017-06-10] MEDS ORDERED: DIVALPROEX 500 MG TABLET.DR PO STA (09:27)
[2017-06-10] MEDS ORDERED: FAMOTIDINE 20 MG TAB PO STA (09:27)
[2017-06-10] MEDS ORDERED: CHOLECALCIFEROL 1,000 UNIT TAB PO SCH (09:28)
[2017-06-10] MEDS ORDERED: CARVEDILOL 12.5 MG TAB PO STA (09:28)
[2017-06-10] MEDS ORDERED: PANTOPRAZOLE 40 MG TABLET PO SCH (09:30)
[2017-06-10] MEDS ORDERED: MULTIVITAMINS, THERA 1 EACH TAB PO ONE (09:35)
[2017-06-10] MEDS ORDERED: OXYBUTYNIN XL 5 MG TAB.ER.24 PO SCH (10:00)
[2017-06-10 12:05] VITALS: BP 132/69; RESP 18
--- NOTE | 2017-06-10 12:25 | ED ---
Medical Decision Making - Medical Decision Making The patient was evaluated by psychiatric service patient will be transferred to [facility] for inpatient treatment. - Lab Data Result diagrams: 06/09/17 18:47 06/09/17 18:47 Lab Results 06/09/17 06/09/17 06/09/17 Range/Units 18:47 18:47 18:47 WBC 6.3 (3.8-10.6) k/uL RBC 4.18 (3.80-5.40) m/uL Hgb 12.5 (11.4-16.0) gm/dL Hct 39.7 (34.0-46.0) % MCV 95.0 (80.0-100.0) fL MCH 30.0 (25.0-35.0) pg MCHC 31.6 (31.0-37.0) g/dL RDW 13.1 (11.5-15.5) % Plt Count 279 (150-450) k/uL Neutrophils % 64 % Lymphocytes % 25 % Monocytes % 6 % Eosinophils % 1 % Basophils % 0 % Neutrophils # 4.0 (1.3-7.7) k/uL Lymphocytes # 1.6 (1.0-4.8) k/uL Monocytes # 0.4 (0-1.0) k/uL Eosinophils # 0.1 (0-0.7) k/uL Basophils # 0.0 (0-0.2) k/uL Sodium 138 (137-145) mmol/L Potassium 4.2 (3.5-5.1) mmol/L Chloride 103 (98-107) mmol/L Carbon Dioxide 25 (22-30) mmol/L Anion Gap 10 mmol/L BUN 16 (7-17) mg/dL Creatinine 0.90 (0.52-1.04) mg/dL Est GFR (MDRD) Af Amer >60 (>60 ml/min/1.73 sqM) Est GFR (MDRD) Non-Af >60 (>60 ml/min/1.73 sqM) Glucose 86 (74-99) mg/dL Calcium 8.9 (8.4-10.2) mg/dL Urine Color Yellow Urine Appearance Cloudy H (Clear) Urine pH 6.5 (5.0-8.0) Ur Specific [place] 1.017 (1.001-1.035) Urine Protein Negative (Negative) Urine Glucose (UA) Negative (Negative) Urine Ketones Trace H (Negative) Urine Blood Negative (Negative) Urine Nitrite Negative (Negative) Urine Bilirubin Negative (Negative) Urine Urobilinogen 3.0 (<2.0) mg/dL Ur Leukocyte Esterase Moderate H (Negative) Urine RBC 1 (0-5) /hpf Urine WBC 11 H (0-5) /hpf Ur Squamous Epith Cells 7 H (0-4) /hpf Urine Bacteria Rare H (None) /hpf Urine Mucus Rare H (None) /hpf Salicylates <1.0 mg/dL Urine Opiates Screen Not Detected (NotDetected) Ur Oxycodone Screen Not Detected (NotDetected) Urine Methadone Screen Not Detected (NotDetected) Ur Propoxyphene Screen Not Detected (NotDetected) Acetaminophen <10.0 ug/mL Ur Barbiturates Screen Not Detected (NotDetected) U Tricyclic Antidepress Not Detected (NotDetected) Ur Phencyclidine Scrn Not Detected (NotDetected) Ur Amphetamines Screen Not Detected (NotDetected) U Methamphetamines Scrn Not Detected (NotDetected) U Benzodiazepines Scrn Not Detected (NotDetected) Urine Cocaine Screen Not Detected (NotDetected) U Marijuana (THC) Screen Not Detected (NotDetected) Serum Alcohol <10 mg/dL Disposition Clinical Impression: Depression Disposition: TRANSFER TO PSYCH HOSP/UNIT Condition: Stable Instructions: Depression (ED) Referrals: Bharti Mendoza MD [Primary Care Provider] - 1-2 days
[2017-06-10] MEDS ORDERED: hydrOXYzine PAMOATE 25 MG CAP PO ONE (12:52)
[2017-06-10 13:57] VITALS: PULSE 66
[2017-06-10 14:40] VITALS: TEMP 98
== END 2017-06-10 14:20 ==
LOC: EC 18:00
DX: F32.9 Major depressive disorder, single episode, unspecified (principal); R45.851 Suicidal ideations; J45.909 Unspecified asthma, uncomplicated; E11.9 Type 2 diabetes mellitus without complications; E78.5 Hyperlipidemia, unspecified; I10 Essential (primary) hypertension; M19.90 Unspecified osteoarthritis, unspecified site; E07.9 Disorder of thyroid, unspecified; E66.01 Morbid (severe) obesity due to excess calories; Z68.43 Body mass index [BMI] 50.0-59.9, adult; F31.9 Bipolar disorder, unspecified; D41.9 Neoplasm of uncertain behavior of unspecified urinary organ; Z79.1 Long term (current) use of non-steroidal anti-inflammatories (NSAID); Z79.899 Other long term (current) drug therapy; Z88.0 Allergy status to penicillin; Z88.2 Allergy status to sulfonamides; Z88.7 Allergy status to serum and vaccine; Z88.8 Allergy status to other drugs, medicaments and biological substances
CPT/HCPCS: 36415; 80048; 80306; 80320; 81001; 83520; 85025; 99285

== ENCOUNTER 2017-10-09 08:50 | Emergency (ER) | payer MEDICARE, OTHER ==
--- NOTE | 2017-10-09 09:14 | ED ---
Lower Extremity Injury HPI - General Chief Complaint: Extremity Injury, Lower Stated Complaint: Knee Injury Time Seen by Provider: 10/09/17 08:55 Source: patient Mode of arrival: wheelchair Limitations: physical limitation - History of Present Illness Initial Comments: This is a 57-year-old female who presents with a chief complaint of left knee pain which began after the patient fell yesterday. She reports falling as she stepped into the van because her leg slipped on a crate inside the van and she fell directly on her left knee. She denies any head injury, loss of consciousness, upper extremity injury, lacerations, or abrasions associated with the fall. The patient is able to walk using a cane, but has pain in the left knee when doing so. She states the knee is bruised and swollen and rates her pain at an 8/10. She has been taking Motrin to relieve the pain which helps. She last took Motrin at 0630 today. - Related Data Home Medications Medication Instructions Recorded Confirmed rOPINIRole HCL [Requip] 3 mg PO DAILY@199905/05/16 10/09/17 rOPINIRole HCL [Requip] 2 mg PO DAILY@79910/30/16 10/09/17 traZODone HCL [Desyrel] 200 mg PO HS@199911/03/16 10/09/17 Ergocalciferol [Vitamin D2 50,000 unit PO MO@0803/29/17 10/09/17 (DRISDOL)] Famotidine [Pepcid] 20 mg PO DAILY@79903/29/17 10/09/17 Ferrous Sulfate [Iron (65 MG 325 mg PO BID@799,199903/29/17 10/09/17 Elemental)] Lurasidone HCl [Latuda] 120 mg PO PC-SUPPER@1800 03/29/17 10/09/17 hydrOXYzine PAMOATE [Vistaril] 25 mg PO HS@199903/29/17 10/09/17 Mirabegron [Myrbetriq] 50 mg PO DAILY@79905/23/17 10/09/17 Atorvastatin [Lipitor] 10 mg PO HS@199906/07/17 10/09/17 Carvedilol [Coreg] 25 mg PO BID@08,199906/07/17 10/09/17 Cholecalciferol [Vitamin D3] 1,000 unit PO DAILY@0800 06/07/17 10/09/17 Divalproex Sodium [Depakote] 500 mg PO BID@0800,199906/07/17 10/09/17 Docusate [Colace] 100 mg PO HS@1999 PRN 06/07/17 10/09/17 Loratadine [Claritin] 10 mg PO DAILY@0800 PRN 06/07/17 10/09/17 Multivitamins, Thera [Multivitamin 1 tab PO DAILY@0800 06/07/17 10/09/17 (formulary)] Omeprazole 20 mg PO DAILY@0800 06/07/17 10/09/17 Ibuprofen [Motrin] 600 mg PO QID@08,12,16,20 06/09/17 10/09/17 Previous Rx's Medication Instructions Recorded Acetaminophen-Codeine 300-30mg 1 tab PO Q6HR PRN #14 tablet 10/09/17 [Tylenol #3] Allergies Allergy/AdvReac Type Severity Reaction Status Date / Time buspirone [From BuSpar] Allergy Unknown Verified 10/09/17 09:25 haloperidol [From Haldol] Allergy Swelling Verified 10/09/17 09:25 iodine Allergy Swelling Verified 10/09/17 09:25 Penicillins Allergy Swelling Verified 10/09/17 09:25 prochlorperazine Allergy Rash/Hives Verified 10/09/17 09:25 Sulfa (Sulfonamide Allergy Rash/Hives Verified 10/09/17 09:25 Antibiotics) Tetanus Vaccines and Toxoid Allergy Rash/Hives Verified 10/09/17 09:25 [Tetanus Vaccines & Toxoid] trifluoperazine HCl Allergy Unknown Verified 10/09/17 09:25 [From Stelazine] Review of Systems ROS Statement: Those systems with pertinent positive or pertinent negative responses have been documented in the HPI. ROS Other: All systems not noted in ROS Statement are negative. Past Medical History Past Medical History: Asthma, Diabetes Mellitus, Hyperlipidemia, Hypertension, Musculoskeletal Disorder, Osteoarthritis (OA), Thyroid Disorder Additional Past Medical History / Comment(s): Morbid obesity History of Any Multi-Drug Resistant Organisms: None Reported Past Surgical History: Bariatric Surgery, Hernia Repair, Orthopedic Surgery Additional Past Surgical History / Comment(s): Total Right knee replacement, 3 hernia repairs. Left hip repair Past Anesthesia/Blood Transfusion Reactions: No Reported Reaction Past Psychological History: Anxiety, Bipolar, Depression Smoking Status: Never smoker Past Alcohol Use History: None Reported Past Drug Use History: None Reported - Past Family History Mother Family Medical History: Cancer Additional Family Medical History / Comment(s): lung cancer Father Additional Family Medical History / Comment(s): "my dad from a blood clot" patient is unsure where the blood clot was. Brother(s) Family Medical History: Diabetes Mellitus Sister(s) Additional Family Medical History / Comment(s): "her heart races too fast" General Exam Limitations: physical limitation General appearance: alert, in no apparent distress Head exam: Present: atraumatic, normocephalic, normal inspection Eye exam: Present: normal appearance, PERRL, EOMI. Absent: scleral icterus, conjunctival injection, periorbital swelling Neck exam: Present: normal inspection, full ROM. Absent: tenderness, meningismus, lymphadenopathy Respiratory exam: Present: normal lung sounds bilaterally. Absent: respiratory distress, wheezes, rales, rhonchi, stridor Cardiovascular Exam: Present: regular rate, normal rhythm, normal heart sounds. Absent: systolic murmur, diastolic murmur, rubs, gallop, clicks Extremities exam: Present: normal inspection, full ROM, normal capillary refill , other (The patient is able to flex and extend at the left knee with mild pain. No laxity noted in the left knee. There is faint ecchymosis and an abrasion present on medial left knee where patient fell and tenderness with palpation over the affected area. Neurovascular remains grossly intact on bilateraly lower extremities.). Absent: tenderness, pedal edema, joint swelling , calf tenderness Neurological exam: Present: alert, oriented X3, CN II-XII intact Psychiatric exam: Present: normal affect, normal mood Skin exam: Present: warm, dry, intact, normal color. Absent: rash Course Vital Signs 10/09/17 08:52 Temperature 98.3 F Pulse Rate 66 Respiratory 20 Rate Blood Pressure 137/64 O2 Sat by Pulse 98 Oximetry Medical Decision Making - Medical Decision Making 57-year-old female presents from for left knee pain, pain after a fall. X-rays reveal degenerative changes no acute fracture. Patient is advised of his left knee contusion she is continue ibuprofen, ice and follow-up with her primary care physician or orthopedic physician. Return parameters were discussed. Disposition Clinical Impression: Fall, Contusion of knee, left Disposition: HOME SELF-CARE Condition: Stable Instructions: Knee Pain (ED) Additional Instructions: Please return to the Emergency Department if symptoms worsen or any other concerns. Prescriptions: Acetaminophen-Codeine 300-30mg [Tylenol #3] 1 tab PO Q6HR PRN #14 tablet PRN Reason: pain Referrals: Nonstaff,Physician [Primary Care Provider] - 1-2 days Time of Disposition: 10:25
[2017-10-09] MEDS ORDERED: Acetaminophen-Codeine 300-30mg TAB PO STA (09:17)
--- NOTE | 2017-10-09 10:28 | XR ---
EXAMINATION TYPE: XR knee complete LT DATE OF EXAM: 10/09/2017 CLINICAL HISTORY: Left knee pain after slip and fall TECHNIQUE: Three views of the left knee are obtained. COMPARISON: None. FINDINGS: There is no acute fracture/dislocation evident in left knee. Mild medial compartment joint space narrowing and small marginal osteophyte from the medial femoral condyle are seen as well as chan int space narrowing in the patellofemoral compartment. No suprapatellar joint effusion. Phleboliths a nd vascular calcifications are noted. The overlying soft tissue appears unremarkable. IMPRESSION: 1. There is no acute fracture or dislocation in the left knee. 2. Mild bicompartmental arthrosis.
[2017-10-09 10:33] VITALS: BP 125/64; PULSE 77; RESP 18; TEMP 98
== END 2017-10-09 10:31 | disposition home or self-care (01) ==
LOC: EC 08:50
DX: S80.02XA Contusion of left knee, initial encounter (principal); E78.5 Hyperlipidemia, unspecified; I10 Essential (primary) hypertension; E66.01 Morbid (severe) obesity due to excess calories; Z68.43 Body mass index [BMI] 50.0-59.9, adult; F41.9 Anxiety disorder, unspecified; F32.9 Major depressive disorder, single episode, unspecified; Z79.899 Other long term (current) drug therapy; Z79.02 Long term (current) use of antithrombotics/antiplatelets; Z79.1 Long term (current) use of non-steroidal anti-inflammatories (NSAID); Z88.8 Allergy status to other drugs, medicaments and biological substances; Z91.048 Other nonmedicinal substance allergy status; Z88.0 Allergy status to penicillin; Z88.2 Allergy status to sulfonamides; Z88.7 Allergy status to serum and vaccine; W01.0XXA Fall on same level from slipping, tripping and stumbling without subsequent striking against object, initial encounter
CPT/HCPCS: 99283

== ENCOUNTER 2017-10-20 10:44 | Emergency (ER) | payer MEDICARE, OTHER ==
[2017-10-20] MEDS ORDERED: SODIUM CHLORIDE 0.9% 1,000 ML IV STA (11:14)
[2017-10-20] MEDS ORDERED: methylPREDNISolone SOD SUCCI 125 MG/2 ML VIAL IV STA ×2 (11:14→12:23)
--- NOTE | 2017-10-20 11:28 | ED ---
General Adult HPI - General Chief complaint: Shortness of Breath Stated complaint: Not feeling well Time Seen by Provider: 10/20/17 11:08 Source: patient, RN notes reviewed, old records reviewed Mode of arrival: EMS Limitations: no limitations - History of Present Illness Initial comments: Patient's a 57-year-old female who presents emergency room today by EMS, the chief complaint of shortness breath over the last 2 weeks. She states feels like it's getting worse. Does admit that actually multiple half ago was treated for a upper respiratory infection was on antibiotics. She states she seemed to get better for a short period of time but over the last 2 weeks symptoms have been increasing. She states she's not had much of a cough. States she feels short of breath at times feel some chest pain anterior chest wall. She is unable to describe the type pain. Patient denies any injury or trauma. Patient denies any other complaints or symptoms currently. Patient denies any recent fever, chills, back pain, abdominal pain, nausea or vomiting, numbness or tingling, headaches or visual changes, or any other complaints. - Related Data Home Medications Medication Instructions Recorded Confirmed rOPINIRole HCL [Requip] 3 mg PO DAILY@199905/05/16 10/09/17 rOPINIRole HCL [Requip] 2 mg PO DAILY@79910/30/16 10/09/17 traZODone HCL [Desyrel] 200 mg PO HS@199911/03/16 10/09/17 Ergocalciferol [Vitamin D2 50,000 unit PO MO@79903/29/17 10/09/17 (DRISDOL)] Famotidine [Pepcid] 20 mg PO DAILY@79903/29/17 10/09/17 Ferrous Sulfate [Iron (65 MG 325 mg PO BID@08,199903/29/17 10/09/17 Elemental)] Lurasidone HCl [Latuda] 120 mg PO PC-SUPPER@179903/29/17 10/09/17 hydrOXYzine PAMOATE [Vistaril] 25 mg PO HS@199903/29/17 10/09/17 Mirabegron [Myrbetriq] 50 mg PO DAILY@0805/23/17 10/09/17 Atorvastatin [Lipitor] 10 mg PO HS@199906/07/17 10/09/17 Carvedilol [Coreg] 25 mg PO BID@0800,199906/07/17 10/09/17 Cholecalciferol [Vitamin D3] 1,000 unit PO DAILY@0800 06/07/17 10/09/17 Divalproex Sodium [Depakote] 500 mg PO BID@0800,199906/07/17 10/09/17 Docusate [Colace] 100 mg PO HS@1999 PRN 06/07/17 10/09/17 Loratadine [Claritin] 10 mg PO DAILY@0800 PRN 06/07/17 10/09/17 Multivitamins, Thera [Multivitamin 1 tab PO DAILY@0800 06/07/17 10/09/17 (formulary)] Omeprazole 20 mg PO DAILY@0800 06/07/17 10/09/17 Ibuprofen [Motrin] 600 mg PO QID@08,12,16,20 06/09/17 10/09/17 Previous Rx's Medication Instructions Recorded Acetaminophen-Codeine 300-30mg 1 tab PO Q6HR PRN #14 tablet 10/09/17 [Tylenol #3] Albuterol Inhaler [Ventolin Hfa 1 - 2 puff INHALATION Q4-6H PRN #1 10/20/17 Inhaler] inhaler methylPREDNISolone Dose Pack 4 mg PO DIRECTED #21 package 10/20/17 [Medrol Dose Pack] Allergies Allergy/AdvReac Type Severity Reaction Status Date / Time buspirone [From BuSpar] Allergy Unknown Verified 10/20/17 14:24 haloperidol [From Haldol] Allergy Swelling Verified 10/20/17 14:24 iodine Allergy Swelling Verified 10/20/17 14:24 Penicillins Allergy Swelling Verified 10/20/17 14:24 prochlorperazine Allergy Rash/Hives Verified 10/20/17 14:24 Sulfa (Sulfonamide Allergy Rash/Hives Verified 10/20/17 14:24 Antibiotics) Tetanus Vaccines and Toxoid Allergy Rash/Hives Verified 10/20/17 14:24 [Tetanus Vaccines & Toxoid] trifluoperazine HCl Allergy Unknown Verified 10/20/17 14:24 [From Stelazine] Review of Systems ROS Statement: Those systems with pertinent positive or pertinent negative responses have been documented in the HPI. ROS Other: All systems not noted in ROS Statement are negative. Past Medical History Past Medical History: Asthma, Diabetes Mellitus, Hyperlipidemia, Hypertension, Musculoskeletal Disorder, Osteoarthritis (OA), Thyroid Disorder Additional Past Medical History / Comment(s): Morbid obesity History of Any Multi-Drug Resistant Organisms: None Reported Past Surgical History: Bariatric Surgery, Hernia Repair, Orthopedic Surgery Additional Past Surgical History / Comment(s): Total Right knee replacement, 3 hernia repairs. Left hip repair Past Anesthesia/Blood Transfusion Reactions: No Reported Reaction Past Psychological History: Anxiety, Bipolar, Depression Smoking Status: Never smoker Past Alcohol Use History: None Reported Past Drug Use History: None Reported - Past Family History Mother Family Medical History: Cancer Additional Family Medical History / Comment(s): lung cancer Father Additional Family Medical History / Comment(s): "my dad from a blood clot" patient is unsure where the blood clot was. Brother(s) Family Medical History: Diabetes Mellitus Sister(s) Additional Family Medical History / Comment(s): "her heart races too fast" General Exam - General Exam Comments Initial Comments: General: The patient is awake and alert, in no distress, and does not appear acutely ill. Eye: Pupils are equal, round and reactive to light, extra-ocular movements are intact. No nystagmus. There is normal conjunctiva bilaterally. No signs of icterus. Ears, nose, mouth and throat: There are moist mucous membranes and no oral lesions. Neck: The neck is supple, there is no tenderness or JVD. Cardiovascular: There is a regular rate and rhythm. No murmur, rub or gallop is appreciated. Tender palpation over the anterior chest wall. Respiratory: Lungs are clear to auscultation, respirations are non-labored, breath sounds are equal. No wheezes, stridor, rales, or rhonchi. Musculoskeletal: Normal ROM, no tenderness. Strength 5/5. Sensation intact. Pulses equal bilaterally 2+. Neurological: A&O x 3. CN II-XII intact, There are no obvious motor or sensory deficits. Coordination appears grossly intact. Speech is normal. Skin: Skin is warm and dry and no rashes or lesions are noted. Psychiatric: Cooperative, appropriate mood & affect, normal judgment. Limitations: no limitations Course Vital Signs 10/20/17 10/20/17 10/20/17 10:49 12:37 13:53 Temperature 97.7 F Pulse Rate 78 72 88 Respiratory 18 16 18 Rate Blood Pressure 113/58 122/74 137/73 O2 Sat by Pulse 100 100 97 Oximetry 10/20/17 10/20/17 13:56 14:15 Temperature 97.1 F L Pulse Rate Respiratory Rate Blood Pressure O2 Sat by Pulse 97 Oximetry EKG Findings - EKG Comments: EKG Findings:: EKG performed at 1124: Shows normal sinus rhythm at 77 bpm. MD interval 134. QRS is 88. QT/QTC 384/434. No acute ST changes. Medical Decision Making - Medical Decision Making Case discussed in detail with attending physician Dr. Torres. Patient reexamined at this time shows no signs of distress resting comfortably. Patient's CTA of the chest reviewed shows no impression 1. Examination negative for pulmonary embolus. 2. Mild cardiomegaly. 3. Small hiatal hernia. 4. Degenerative changes of the spine. Patient's labs been reviewed are unremarkable. No fever here in emergency room vitals are stable. Patient's pulse ox 100% on room air. Patient is been ambulatory in the hallway and pulse ox remains at 99%. Patient will be treated with steroids to go home with albuterol inhaler. She is advised follow-up family doctor tomorrow. Advised return if any symptoms increase or worsen. Patient states understanding and is in agreement. - Lab Data Result diagrams: 10/20/17 11:30 10/20/17 11:30 Lab Results 10/20/17 10/20/17 10/20/17 Range/Units 11:30 11:30 11:30 WBC 7.9 (3.8-10.6) k/uL RBC 3.92 (3.80-5.40) m/uL Hgb 11.2 L (11.4-16.0) gm/dL Hct 34.9 (34.0-46.0) % MCV 89.1 (80.0-100.0) fL MCH 28.5 (25.0-35.0) pg MCHC 32.0 (31.0-37.0) g/dL RDW 12.7 (11.5-15.5) % Plt Count 377 (150-450) k/uL Neutrophils % 75 % Lymphocytes % 16 % Monocytes % 6 % Eosinophils % 1 % Basophils % 0 % Neutrophils # 5.9 (1.3-7.7) k/uL Lymphocytes # 1.3 (1.0-4.8) k/uL Monocytes # 0.4 (0-1.0) k/uL Eosinophils # 0.1 (0-0.7) k/uL Basophils # 0.0 (0-0.2) k/uL PT (9.0-12.0) sec INR (<1.2) APTT (22.0-30.0) sec D-Dimer (<0.60) mg/L FEU Sodium 143 (137-145) mmol/L Potassium 4.3 (3.5-5.1) mmol/L Chloride 108 H (98-107) mmol/L Carbon Dioxide 25 (22-30) mmol/L Anion Gap 10 mmol/L BUN 25 H (7-17) mg/dL Creatinine 0.71 (0.52-1.04) mg/dL Est GFR (MDRD) Af Amer >60 (>60 ml/min/1.73 sqM) Est GFR (MDRD) Non-Af >60 (>60 ml/min/1.73 sqM) Glucose 93 (74-99) mg/dL Calcium 9.3 (8.4-10.2) mg/dL Magnesium 1.7 (1.6-2.3) mg/dL Total Bilirubin 0.2 (0.2-1.3) mg/dL AST 18 (14-36) U/L ALT 18 (9-52) U/L Alkaline Phosphatase 73 (38-126) U/L Total Creatine Kinase 33 (30-135) U/L CK-MB (CK-2) 0.5 (0.0-2.4) ng/mL CK-MB (CK-2) Rel Index 1.5 Troponin I <0.012 (0.000-0.034) ng/mL NT-Pro-B Natriuret Pep pg/mL Total Protein 6.0 L (6.3-8.2) g/dL Albumin 3.4 L (3.5-5.0) g/dL 10/20/17 10/20/17 Range/Units 11:30 11:30 WBC (3.8-10.6) k/uL RBC (3.80-5.40) m/uL Hgb (11.4-16.0) gm/dL Hct (34.0-46.0) % MCV (80.0-100.0) fL MCH (25.0-35.0) pg MCHC (31.0-37.0) g/dL RDW (11.5-15.5) % Plt Count (150-450) k/uL Neutrophils % % Lymphocytes % % Monocytes % % Eosinophils % % Basophils % % Neutrophils # (1.3-7.7) k/uL Lymphocytes # (1.0-4.8) k/uL Monocytes # (0-1.0) k/uL Eosinophils # (0-0.7) k/uL Basophils # (0-0.2) k/uL PT 9.5 (9.0-12.0) sec INR 1.0 (<1.2) APTT 22.1 (22.0-30.0) sec D-Dimer 0.99 H (<0.60) mg/L FEU Sodium (137-145) mmol/L Potassium (3.5-5.1) mmol/L Chloride (98-107) mmol/L Carbon Dioxide (22-30) mmol/L Anion Gap mmol/L BUN (7-17) mg/dL Creatinine (0.52-1.04) mg/dL Est GFR (MDRD) Af Amer (>60 ml/min/1.73 sqM) Est GFR (MDRD) Non-Af (>60 ml/min/1.73 sqM) Glucose (74-99) mg/dL Calcium (8.4-10.2) mg/dL Magnesium (1.6-2.3) mg/dL Total Bilirubin (0.2-1.3) mg/dL AST (14-36) U/L ALT (9-52) U/L Alkaline Phosphatase (38-126) U/L Total Creatine Kinase (30-135) U/L CK-MB (CK-2) (0.0-2.4) ng/mL CK-MB (CK-2) Rel Index Troponin I (0.000-0.034) ng/mL NT-Pro-B Natriuret Pep 544 pg/mL Total Protein (6.3-8.2) g/dL Albumin (3.5-5.0) g/dL Disposition Clinical Impression: Acute bronchitis Disposition: HOME SELF-CARE Condition: Good Instructions: Acute Bronchitis (ED) Additional Instructions: Please use medication as discussed. Please follow-up with family doctor in the next 1-2 days. Please return to emergency room if the symptoms increase or worsen or for any other concerns. Prescriptions: Albuterol Inhaler [Ventolin Hfa Inhaler] 1 - 2 puff INHALATION Q4-6H PRN #1 inhaler PRN Reason: Cough methylPREDNISolone Dose Pack [Medrol Dose Pack] 4 mg PO DIRECTED #21 package Referrals: Nonstaff,Physician [Primary Care Provider] - 1-2 days Franki Boswell MD [STAFF PHYSICIAN] - 1-2 days Time of Disposition: 14:29
[2017-10-20 11:47] LABS: Basophils % (A) 0 %; Eosinophils # (A) 0.1 k/uL (0-0.7); Eosinophils % (A) 1 %; HCT 34.9 % (34.0-46.0); HGB 11.2 gm/dL (11.4-16.0); Lymphocytes # (A) 1.3 k/uL (1.0-4.8); Lymphocytes % (A) 16 %; MCH 28.5 pg (25.0-35.0); MCV 89.1 fL (80.0-100.0); Monocytes # (A) 0.4 k/uL (0-1.0); Monocytes % (A) 6 %; Neutrophils # (A) 5.9 k/uL (1.3-7.7); Neutrophils % (A) 75 %; Platelet Count 377 k/uL (150-450); RBC 3.92 m/uL (3.80-5.40); RDW 12.7 % (11.5-15.5); WBC 7.9 k/uL (3.8-10.6)
[2017-10-20 11:58] LABS: D-Dimer 0.99 mg/L FEU (<0.60)
[2017-10-20 12:00] LABS: ALT 18 U/L (9-52); AST 18 U/L (14-36); Albumin 3.4 g/dL (3.5-5.0); Alkaline Phosphatase 73 U/L (38-126); Anion Gap 10 mmol/L; Blood Urea Nitrogen 25 mg/dL (7-17); Calcium 9.3 mg/dL (8.4-10.2); Carbon Dioxide 25 mmol/L (22-30); Chloride 108 mmol/L (98-107); Glucose 93 mg/dL (74-99); Magnesium 1.7 mg/dL (1.6-2.3); Potassium 4.3 mmol/L (3.5-5.1); Sodium 143 mmol/L (137-145); Total Bilirubin 0.2 mg/dL (0.2-1.3)
[2017-10-20 12:03] LABS: Partial Thromboplastin Time 22.1 sec (22.0-30.0)
[2017-10-20 12:05] LABS: Prothrombin Time 9.5 sec (9.0-12.0)
[2017-10-20 12:06] LABS: Creatine Kinase 33 U/L (30-135)
[2017-10-20 12:19] LABS: Creatine Kinase MB 0.5 ng/mL (0.0-2.4); Troponin I <0.012 ng/mL (0.000-0.034)
[2017-10-20] MEDS ORDERED: RX INFO: IV CONTRAST WAS GIVEN 1 EACH MISC MISCELLANE PRN (12:23)
[2017-10-20] MEDS ORDERED: diphenhydrAMINE 50 MG/ML 1 ML VIAL IVP STA (12:23)
[2017-10-20] MEDS ORDERED: FAMOTIDINE 20 MG/2 ML VIAL IV STA (12:23)
--- NOTE | 2017-10-20 12:59 | XR ---
EXAMINATION TYPE: XR chest 2V DATE OF EXAM: 10/20/2017 HISTORY: difficulty breathing. REFERENCE: Previous study dated 05/06/2017. FINDINGS: Heart size upper limits of normal. The lungs are clear. Pleural spaces are clear. IMPRESSION: BORDERLINE CARDIOMEGALY.
--- NOTE | 2017-10-20 13:46 | CT ---
EXAMINATION TYPE: CT angio chest DATE OF EXAM: 10/20/2017 1:19 PM COMPARISON: Previous study dated 03/29/2017. HISTORY: Chest pains CT DLP: 1157 mGycm Automated exposure control for dose reduction was used. CONTRAST: CTA scan of the thorax is performed with IV Contrast, patient injected with 100 mL of Omnipaque 350, pulmonary embolism protocol. . FINDINGS:There is mild atelectatic change in the dependent portions of the lungs. There is no signifi cant axillary, internal mammary, mediastinal or hilar adenopathy. There is no evidence of pulmonary embolus. The aorta is normal in caliber without evidence of dissection. There is no pleural or pericardial flu id identified. The heart is enlarged. There is been previous epigastric surgery. There is a small hiatal hernia. Visualized portions of the upper abdomen are otherwise unremarkable. There are postsurgical changes in the anterior abdominal w all. These are incompletely visualized. There is hypertrophic spondylosis within the spine. IMPRESSION: 1. THIS EXAMINATION IS NEGATIVE FOR PULMONARY EMBOLUS. 2. MILD CARDIOMEGALY. 3. SMALL HIATAL HERNIA. 4. DEGENERATIVE CHANGE WITHIN THE SPINE.
[2017-10-20 13:54] VITALS: RESP 18
[2017-10-20 15:11] VITALS: BP 143/67; PULSE 81; TEMP 98.5
== END 2017-10-20 15:31 | disposition home or self-care (01) ==
LOC: EC 10:44
DX: J20.9 Acute bronchitis, unspecified (principal); E11.9 Type 2 diabetes mellitus without complications; E78.5 Hyperlipidemia, unspecified; I11.9 Hypertensive heart disease without heart failure; E07.9 Disorder of thyroid, unspecified; E66.01 Morbid (severe) obesity due to excess calories; F41.9 Anxiety disorder, unspecified; F31.9 Bipolar disorder, unspecified; Z96.651 Presence of right artificial knee joint; Z68.43 Body mass index [BMI] 50.0-59.9, adult; Z79.1 Long term (current) use of non-steroidal anti-inflammatories (NSAID); Z79.899 Other long term (current) drug therapy; Z88.0 Allergy status to penicillin; Z88.2 Allergy status to sulfonamides; Z88.7 Allergy status to serum and vaccine; Z88.8 Allergy status to other drugs, medicaments and biological substances
CPT/HCPCS: 36415; 93005; 85379; 83880; 80053; 82550; 82553; 83735; 84484; 85025; 85610; 85730; 71046; 71275; 99285; 96374; 96375 ×2; J1200; J2930; Q9967

== ENCOUNTER 2017-10-24 10:40 | Emergency (ER) | payer MEDICARE, OTHER ==
[2017-10-24] MEDS ORDERED: IPRATROPIUM-ALBUTEROL 3 ML NEB INHALATION STA (11:04)
--- NOTE | 2017-10-24 11:18 | ED ---
General Adult HPI - General Chief complaint: Shortness of Breath Stated complaint: sob x 3 weeks Time Seen by Provider: 10/24/17 10:55 Source: patient, RN notes reviewed Mode of arrival: wheelchair - History of Present Illness Initial comments: 57-year-old female presents to the emergency department with chief complaint of shortness of breath. Patient states she was seen here a few days ago. She was diagnosed with bronchitis she was started on an inhaler and steroids. He went to follow-up with Dr. Umaña and he referred her back because she needs her inhaler more than every 4-6 hours. She states she continues to feel short of breath. She states that she hasn't had any fever chills. She denies any productive cough. She denies any nausea or vomiting. She denies any chest pain with this. She states she just feels like she cannot breathe as well as normal. She was concerned due to the continued symptoms so she thought that she should be seen. Patient denies any recent fever, chills, chest pain, back pain, abdominal pain, nausea vomiting, numbness or tingling, dysuria or hematuria, constipation or diarrhea, headaches or visual changes, or any other current symptoms. - Related Data Home Medications Medication Instructions Recorded Confirmed rOPINIRole HCL [Requip] 3 mg PO HS@199905/05/16 10/24/17 rOPINIRole HCL [Requip] 2 mg PO DAILY@0700 10/30/16 10/24/17 Mirabegron [Myrbetriq] 50 mg PO DAILY@0800 05/23/17 10/24/17 Atorvastatin [Lipitor] 10 mg PO HS@199906/07/17 10/24/17 Carvedilol [Coreg] 25 mg PO BID@08,199906/07/17 10/24/17 Cholecalciferol [Vitamin D3] 1,000 unit PO DAILY@0800 06/07/17 10/24/17 Divalproex Sodium [Depakote] 1,000 mg PO HS@199906/07/17 10/24/17 Loratadine [Claritin] 10 mg PO DAILY@0800 06/07/17 10/24/17 Multivitamins, Thera [Multivitamin 1 tab PO DAILY@0800 06/07/17 10/24/17 (formulary)] Omeprazole 20 mg PO DAILY@0800 06/07/17 10/24/17 Ibuprofen [Motrin] 600 mg PO QID@08,12,16,06/09/17 10/24/17 DULoxetine HCL [Cymbalta] 60 mg PO DAILY@0800 10/20/17 10/24/17 Fluconazole [Diflucan] 150 mg PO MO@0800 10/20/17 10/24/17 Levothyroxine Sodium [Synthroid] 137 mcg PO DAILY@0800 10/20/17 10/24/17 Nystatin 1 applic TOPICAL HS@199910/20/17 10/24/17 SILVER sulfADIAZINE Cream 1 applic TOPICAL BID@0800,199910/20/17 10/24/17 [Silvadene 1% Cream] hydrALAZINE HCL [Apresoline] 50 mg PO TID@0800,1200,199910/20/17 10/24/17 Albuterol Inhaler [Ventolin Hfa 1 - 2 puff INHALATION RT-Q4H PRN 10/24/17 Inhaler] methylPREDNISolone Dose Pack See Taper PO DIRECTED 10/24/17 10/24/17 [Medrol Dose Pack] Previous Rx's Medication Instructions Recorded Azithromycin [Zithromax] 250 mg PO DIRECTED #6 tab 10/24/17 Allergies Allergy/AdvReac Type Severity Reaction Status Date / Time buspirone [From BuSpar] Allergy Unknown Verified 10/24/17 11:22 haloperidol [From Haldol] Allergy Swelling Verified 10/24/17 11:22 iodine Allergy Swelling Verified 10/24/17 11:22 Penicillins Allergy Swelling Verified 10/24/17 11:22 prochlorperazine Allergy Rash/Hives Verified 10/24/17 11:22 Sulfa (Sulfonamide Allergy Rash/Hives Verified 10/24/17 11:22 Antibiotics) Tetanus Vaccines and Toxoid Allergy Rash/Hives Verified 10/24/17 11:22 [Tetanus Vaccines & Toxoid] trifluoperazine HCl Allergy Unknown Verified 10/24/17 11:22 [From Stelazine] Review of Systems ROS Statement: Those systems with pertinent positive or pertinent negative responses have been documented in the HPI. ROS Other: All systems not noted in ROS Statement are negative. Past Medical History Past Medical History: Asthma, Diabetes Mellitus, Hyperlipidemia, Hypertension, Musculoskeletal Disorder, Osteoarthritis (OA), Thyroid Disorder Additional Past Medical History / Comment(s): Morbid obesity History of Any Multi-Drug Resistant Organisms: None Reported Past Surgical History: Bariatric Surgery, Hernia Repair, Orthopedic Surgery Additional Past Surgical History / Comment(s): Total Right knee replacement, 3 hernia repairs. Left hip repair Past Anesthesia/Blood Transfusion Reactions: No Reported Reaction Past Psychological History: Anxiety, Bipolar, Depression Smoking Status: Never smoker Past Alcohol Use History: None Reported Past Drug Use History: None Reported - Past Family History Mother Family Medical History: Cancer Additional Family Medical History / Comment(s): lung cancer Father Additional Family Medical History / Comment(s): "my dad from a blood clot" patient is unsure where the blood clot was. Brother(s) Family Medical History: Diabetes Mellitus Sister(s) Additional Family Medical History / Comment(s): "her heart races too fast" General Exam - General Exam Comments Initial Comments: General: The patient is awake and alert, in no distress, and does not appear acutely ill. Eye: Pupils are equal, round and reactive to light, extra-ocular movements are intact; there is normal conjunctiva bilaterally. No signs of icterus. Ears, nose, mouth and throat: There are moist mucous membranes. Neck: The neck is supple, there is no tenderness. Cardiovascular: There is a regular rate and rhythm. No murmur, rub or gallop is appreciated. Respiratory: Lungs are clear to auscultation, respirations are non-labored, breath sounds are equal. No wheezes, stridor, rales, or rhonchi. Gastrointestinal: Soft, non-distended, non-tender abdomen without masses or organomegaly noted. There is no rebound or guarding present. No CVA tenderness. Bowel sounds are unremarkable. Back: There is no tenderness to palpation in the midline. There is no obvious deformity. No rashes noted. Musculoskeletal: Normal ROM, no tenderness, There is no pedal edema. There is no calf tenderness or swelling. Sensation intact. Pulses equal bilaterally 2+. Neurological: CN II-XII intact, There are no obvious motor or sensory deficits. Coordination appears grossly intact. Speech is normal. Skin: Skin is warm and dry and no rashes or lesions are noted. Psychiatric: Cooperative, appropriate mood & affect, normal judgment. Course Vital Signs 10/24/17 10/24/17 10/24/17 10:51 12:30 12:35 Temperature 97.4 F L Pulse Rate 83 69 66 Respiratory 24 Rate Blood Pressure 131/70 O2 Sat by Pulse 100 Oximetry 10/24/17 12:54 Temperature Pulse Rate 68 Respiratory 18 Rate Blood Pressure 147/70 O2 Sat by Pulse 96 Oximetry EKG Findings - EKG Comments: EKG Findings:: normal sinus rhythm 74 bpm, normal axis, no atopy, no S-T depressions or elevations, Medical Decision Making - Medical Decision Making 57-year-old female presents for shortness of breath. This time patient's lab work has been reviewed as well as imaging. At this time after the breathing treatment patient states she's feeling somewhat better. She was given prescription today at Dr. Umaña's office for a breathing machine for breathing treatments as well as an additional inhaler. At this time we did discuss we'll add an antibiotic to her care. We discussed her current regimen. We discussed return parameters and follow-up and all questions. Patient stated that she understood and she is in agreement with this plan. All questions have been answered. She will be discharged. - Lab Data Result diagrams: 10/24/17 12:04 10/24/17 12:04 Lab Results 10/24/17 10/24/17 10/24/17 Range/Units 12:04 12:04 12:04 WBC 9.9 (3.8-10.6) k/uL RBC 3.96 (3.80-5.40) m/uL Hgb 11.5 (11.4-16.0) gm/dL Hct 36.5 (34.0-46.0) % MCV 92.3 (80.0-100.0) fL MCH 29.0 (25.0-35.0) pg MCHC 31.4 (31.0-37.0) g/dL RDW 13.0 (11.5-15.5) % Plt Count 307 (150-450) k/uL Neutrophils % 68 % Lymphocytes % 25 % Monocytes % 5 % Eosinophils % 1 % Basophils % 0 % Neutrophils # 6.7 (1.3-7.7) k/uL Lymphocytes # 2.5 (1.0-4.8) k/uL Monocytes # 0.5 (0-1.0) k/uL Eosinophils # 0.1 (0-0.7) k/uL Basophils # 0.0 (0-0.2) k/uL PT (9.0-12.0) sec INR (<1.2) APTT (22.0-30.0) sec Sodium 141 (137-145) mmol/L Potassium 4.5 (3.5-5.1) mmol/L Chloride 107 (98-107) mmol/L Carbon Dioxide 23 (22-30) mmol/L Anion Gap 11 mmol/L BUN 30 H (7-17) mg/dL Creatinine 0.73 (0.52-1.04) mg/dL Est GFR (MDRD) Af Amer >60 (>60 ml/min/1.73 sqM) Est GFR (MDRD) Non-Af >60 (>60 ml/min/1.73 sqM) Glucose 82 (74-99) mg/dL Calcium 9.5 (8.4-10.2) mg/dL Magnesium 1.8 (1.6-2.3) mg/dL Total Bilirubin 0.3 (0.2-1.3) mg/dL AST 18 (14-36) U/L ALT 26 (9-52) U/L Alkaline Phosphatase 74 (38-126) U/L Total Creatine Kinase 24 L (30-135) U/L CK-MB (CK-2) 0.7 (0.0-2.4) ng/mL CK-MB (CK-2) Rel Index 2.9 Troponin I <0.012 (0.000-0.034) ng/mL NT-Pro-B Natriuret Pep pg/mL Total Protein 6.5 (6.3-8.2) g/dL Albumin 4.0 (3.5-5.0) g/dL 10/24/17 10/24/17 Range/Units 12:04 12:04 WBC (3.8-10.6) k/uL RBC (3.80-5.40) m/uL Hgb (11.4-16.0) gm/dL Hct (34.0-46.0) % MCV (80.0-100.0) fL MCH (25.0-35.0) pg MCHC (31.0-37.0) g/dL RDW (11.5-15.5) % Plt Count (150-450) k/uL Neutrophils % % Lymphocytes % % Monocytes % % Eosinophils % % Basophils % % Neutrophils # (1.3-7.7) k/uL Lymphocytes # (1.0-4.8) k/uL Monocytes # (0-1.0) k/uL Eosinophils # (0-0.7) k/uL Basophils # (0-0.2) k/uL PT 10.7 (9.0-12.0) sec INR 1.1 (<1.2) APTT 23.3 (22.0-30.0) sec Sodium (137-145) mmol/L Potassium (3.5-5.1) mmol/L Chloride (98-107) mmol/L Carbon Dioxide (22-30) mmol/L Anion Gap mmol/L BUN (7-17) mg/dL Creatinine (0.52-1.04) mg/dL Est GFR (MDRD) Af Amer (>60 ml/min/1.73 sqM) Est GFR (MDRD) Non-Af (>60 ml/min/1.73 sqM) Glucose (74-99) mg/dL Calcium (8.4-10.2) mg/dL Magnesium (1.6-2.3) mg/dL Total Bilirubin (0.2-1.3) mg/dL AST (14-36) U/L ALT (9-52) U/L Alkaline Phosphatase (38-126) U/L Total Creatine Kinase (30-135) U/L CK-MB (CK-2) (0.0-2.4) ng/mL CK-MB (CK-2) Rel Index Troponin I (0.000-0.034) ng/mL NT-Pro-B Natriuret Pep 724 pg/mL Total Protein (6.3-8.2) g/dL Albumin (3.5-5.0) g/dL - Radiology Data Radiology results: report reviewed, image reviewed Disposition Clinical Impression: Acute bronchitis Disposition: HOME SELF-CARE Condition: Stable Instructions: Acute Bronchitis (ED) Additional Instructions: Please use medication as discussed. Please follow up with family doctor if symptoms have not improved over the next two days. Please return to the emergency room if your symptoms increase or worsen or for any other concerns. Prescriptions: Azithromycin [Zithromax] 250 mg PO DIRECTED #6 tab Referrals: Libra Umaña MD [Primary Care Provider] - 1-2 days Time of Disposition: 13:26
[2017-10-24 12:19] LABS: Basophils % (A) 0 %; Eosinophils # (A) 0.1 k/uL (0-0.7); Eosinophils % (A) 1 %; HCT 36.5 % (34.0-46.0); HGB 11.5 gm/dL (11.4-16.0); Lymphocytes # (A) 2.5 k/uL (1.0-4.8); Lymphocytes % (A) 25 %; MCHC 31.4 g/dL (31.0-37.0); MCV 92.3 fL (80.0-100.0); Mean Platelet Volume 8.8; Monocytes # (A) 0.5 k/uL (0-1.0); Monocytes % (A) 5 %; Neutrophils # (A) 6.7 k/uL (1.3-7.7); Neutrophils % (A) 68 %; Platelet Count 307 k/uL (150-450); RBC 3.96 m/uL (3.80-5.40); WBC 9.9 k/uL (3.8-10.6)
--- NOTE | 2017-10-24 12:34 | XR ---
EXAMINATION TYPE: XR chest 2V DATE OF EXAM: 10/24/2017 COMPARISON: 10/20/2017 HISTORY: 57-year-old female with cough TECHNIQUE: Frontal and lateral views FINDINGS: Low lung volumes. Heart borderline enlarged. Crowded vascular markings. Strandy atelectasis lower eb gs. No consolidation or pleural effusion. Anterior bridging endplate spondylosis mid to lower thoraci c spine suggestive of DISH. IMPRESSION: Hypoventilatory changes. No definite acute process.
[2017-10-24 12:35] LABS: ALT 26 U/L (9-52); AST 18 U/L (14-36); Alkaline Phosphatase 74 U/L (38-126); Anion Gap 11 mmol/L; Blood Urea Nitrogen 30 mg/dL (7-17); Calcium 9.5 mg/dL (8.4-10.2); Carbon Dioxide 23 mmol/L (22-30); Chloride 107 mmol/L (98-107); Glucose 82 mg/dL (74-99); Potassium 4.5 mmol/L (3.5-5.1); Sodium 141 mmol/L (137-145); Total Bilirubin 0.3 mg/dL (0.2-1.3); Total Protein 6.5 g/dL (6.3-8.2)
[2017-10-24 12:46] LABS: Creatine Kinase 24 U/L (30-135)
[2017-10-24 12:52] LABS: INR 1.1 (<1.2); Partial Thromboplastin Time 23.3 sec (22.0-30.0); Prothrombin Time 10.7 sec (9.0-12.0)
[2017-10-24 12:57] LABS: Creatine Kinase MB 0.7 ng/mL (0.0-2.4); Troponin I <0.012 ng/mL (0.000-0.034)
[2017-10-24 13:01] VITALS: RESP 18
[2017-10-24] MEDS ORDERED: methylPREDNISolone SOD SUCCI 125 MG/2 ML VIAL IV STA (13:19)
[2017-10-24 13:32] VITALS: BP 142/74; PULSE 70; TEMP 98.5
== END 2017-10-24 13:45 | disposition home or self-care (01) ==
LOC: EC 10:40
DX: J20.9 Acute bronchitis, unspecified (principal); J45.909 Unspecified asthma, uncomplicated; E78.5 Hyperlipidemia, unspecified; I10 Essential (primary) hypertension; M19.90 Unspecified osteoarthritis, unspecified site; E07.9 Disorder of thyroid, unspecified; F31.9 Bipolar disorder, unspecified; F41.9 Anxiety disorder, unspecified; E66.01 Morbid (severe) obesity due to excess calories; Z68.43 Body mass index [BMI] 50.0-59.9, adult; Z88.0 Allergy status to penicillin; Z88.2 Allergy status to sulfonamides; Z88.7 Allergy status to serum and vaccine; Z88.8 Allergy status to other drugs, medicaments and biological substances; Z91.048 Other nonmedicinal substance allergy status; Z79.1 Long term (current) use of non-steroidal anti-inflammatories (NSAID); Z79.899 Other long term (current) drug therapy
CPT/HCPCS: 99285 ×2; 96374 ×2; 96372; 36415; 94640; 93005; 83880; 80053; 82550; 82553; 83735; 84484; 85025; 85610; 85730; 71046; J2060; J2930

== ENCOUNTER 2017-10-24 17:42 | Emergency (ER) | payer MEDICARE, OTHER ==
[2017-10-24 18:00] VITALS: TEMP 97.6
[2017-10-24] MEDS ORDERED: LORazepam 2 MG/ML INJ IM STA (18:04)
[2017-10-24] MEDS ORDERED: IPRATROPIUM-ALBUTEROL 3 ML NEB INHALATION STA (18:04)
[2017-10-24 18:29] VITALS: BP 136/65; PULSE 79; RESP 18
--- NOTE | 2017-10-24 18:45 | ED ---
SOB HPI - General Chief Complaint: Shortness of Breath Stated Complaint: SJ Time Seen by Provider: 10/24/17 17:59 Source: patient Mode of arrival: EMS Limitations: no limitations - History of Present Illness Initial Comments: This 57-year-old white female presents with a complaint of some shortness of breath. She was seen here earlier and had extensive workup and was discharged. She had back to her custodial and apparently got in an argument with another patient. She apparently got quite worked up and anxious and then developed some shortness of breath. She is hyperventilating upon arrival. She did have some slight anxiety. She denies any cough or chest pain. She was seen earlier diagnosed with bronchitis. No other complaints or modifying factors. - Related Data Home Medications Medication Instructions Recorded Confirmed rOPINIRole HCL [Requip] 3 mg PO HS@199905/05/16 10/24/17 rOPINIRole HCL [Requip] 2 mg PO DAILY@69910/30/16 10/24/17 Mirabegron [Myrbetriq] 50 mg PO DAILY@79905/23/17 10/24/17 Atorvastatin [Lipitor] 10 mg PO HS@199906/07/17 10/24/17 Carvedilol [Coreg] 25 mg PO BID@799,199906/07/17 10/24/17 Cholecalciferol [Vitamin D3] 1,000 unit PO DAILY@79906/07/17 10/24/17 Divalproex Sodium [Depakote] 1,000 mg PO HS@199906/07/17 10/24/17 Loratadine [Claritin] 10 mg PO DAILY@79906/07/17 10/24/17 Multivitamins, Thera [Multivitamin 1 tab PO DAILY@0800 06/07/17 10/24/17 (formulary)] Omeprazole 20 mg PO DAILY@00 06/07/17 10/24/17 Ibuprofen [Motrin] 600 mg PO QID@08,12,16,20 06/09/17 10/24/17 DULoxetine HCL [Cymbalta] 60 mg PO DAILY@79910/20/17 10/24/17 Fluconazole [Diflucan] 150 mg PO MO@79910/20/17 10/24/17 Levothyroxine Sodium [Synthroid] 137 mcg PO DAILY@0800 10/20/17 10/24/17 Nystatin 1 applic TOPICAL HS@199910/20/17 10/24/17 SILVER sulfADIAZINE Cream 1 applic TOPICAL BID@799,199910/20/17 10/24/17 [Silvadene 1% Cream] hydrALAZINE HCL [Apresoline] 50 mg PO TID@0800,1200,199910/20/17 10/24/17 Albuterol Inhaler [Ventolin Hfa 1 - 2 puff INHALATION RT-Q4H PRN 10/24/17 Inhaler] methylPREDNISolone Dose Pack See Taper PO DIRECTED 10/24/17 10/24/17 [Medrol Dose Pack] Previous Rx's Medication Instructions Recorded Azithromycin [Zithromax] 250 mg PO DIRECTED #6 tab 10/24/17 Allergies Allergy/AdvReac Type Severity Reaction Status Date / Time buspirone [From BuSpar] Allergy Unknown Verified 10/24/17 18:06 haloperidol [From Haldol] Allergy Swelling Verified 10/24/17 18:06 iodine Allergy Swelling Verified 10/24/17 18:06 Penicillins Allergy Swelling Verified 10/24/17 18:06 prochlorperazine Allergy Rash/Hives Verified 10/24/17 18:06 Sulfa (Sulfonamide Allergy Rash/Hives Verified 10/24/17 18:06 Antibiotics) Tetanus Vaccines and Toxoid Allergy Rash/Hives Verified 10/24/17 18:06 [Tetanus Vaccines & Toxoid] trifluoperazine HCl Allergy Unknown Verified 10/24/17 18:06 [From Stelazine] Review of Systems ROS Statement: Those systems with pertinent positive or pertinent negative responses have been documented in the HPI. ROS Other: All systems not noted in ROS Statement are negative. Past Medical History Past Medical History: Asthma, Diabetes Mellitus, Hyperlipidemia, Hypertension, Musculoskeletal Disorder, Osteoarthritis (OA), Thyroid Disorder Additional Past Medical History / Comment(s): Morbid obesity History of Any Multi-Drug Resistant Organisms: None Reported Past Surgical History: Bariatric Surgery, Hernia Repair, Orthopedic Surgery Additional Past Surgical History / Comment(s): Total Right knee replacement, 3 hernia repairs. Left hip repair Past Anesthesia/Blood Transfusion Reactions: No Reported Reaction Past Psychological History: Anxiety, Bipolar, Depression Smoking Status: Never smoker Past Alcohol Use History: None Reported Past Drug Use History: None Reported - Past Family History Mother Family Medical History: Cancer Additional Family Medical History / Comment(s): lung cancer Father Additional Family Medical History / Comment(s): "my dad from a blood clot" patient is unsure where the blood clot was. Brother(s) Family Medical History: Diabetes Mellitus Sister(s) Additional Family Medical History / Comment(s): "her heart races too fast" General Exam - General Exam Comments Initial Comments: GENERAL: The patient is well nourished and well hydrated. VITAL SIGNS: Heart rate, blood pressure, respiratory rate reviewed as recorded in nurse's notes. EYES: Pupils are round and reactive. Extraocular movements are intact. No conjunctival / lid redness or swelling. ENT: No external evidence of injury, swelling, or ecchymosis. Airway is patent. Throat is clear. NECK: Nontender. No swelling or evidence of injury. No subcutaneous emphysema. Trachea is midline. No thyroid mass. HEART: Regular rate and rhythm. Good peripheral pulses. LUNGS/CHEST: Breath sounds clear and equal bilaterally. No rales, rhonchi, or wheezes. No ecchymosis, subcutaneous emphysema, or tenderness. Patient is hyperventilating. ABDOMEN: Abdomen soft without tenderness. No palpable masses or organomegaly. No peritoneal signs. No abdominal wall swelling or ecchymosis. EXTREMITIES: No extremity tenderness. Normal muscle tone and function. No thoracolumbar tenderness. NEUROLOGIC: Sensation is grossly intact. Cranial nerve exam reveals face is symmetrical, tongue is midline, speech is clear. SKIN: No abrasions or ecchymosis is noted. No induration or masses noted. PSYCHIATRIC: Alert and oriented. Appears very anxious and is hyperventilating. Limitations: no limitations Course Vital Signs 10/24/17 10/24/17 10/24/17 17:47 18:10 18:17 Temperature 97.6 F Pulse Rate 89 98 Respiratory 28 H 28 H Rate Blood Pressure 145/68 O2 Sat by Pulse 97 Oximetry 10/24/17 10/24/17 18:23 18:24 Temperature Pulse Rate 96 79 Respiratory 18 Rate Blood Pressure 136/65 O2 Sat by Pulse 97 Oximetry Medical Decision Making - Medical Decision Making The patient was seen and examined. Old records were reviewed. She does receive 2 mg of Ativan IM. She also receives a DuoNeb breathing treatment. She is feeling back to normal at this time. The shortness of breath has resolved. The nurse did discuss with the custodial and they do accept her back. She is counseled regarding her diagnosis in detail and leaves in no distress. Disposition Clinical Impression: Dyspnea, Anxiety reaction Disposition: HOME SELF-CARE Condition: Good Instructions: Panic Attack (ED) Referrals: Libra Umaña MD [Primary Care Provider] - 1-2 days Time of Disposition: 18:44
== END 2017-10-24 19:08 | disposition home or self-care (01) ==
LOC: EC 17:42
DX: F41.1 Generalized anxiety disorder (principal); R06.02 Shortness of breath; E78.5 Hyperlipidemia, unspecified; I10 Essential (primary) hypertension; M19.90 Unspecified osteoarthritis, unspecified site; E07.9 Disorder of thyroid, unspecified; F31.9 Bipolar disorder, unspecified; E66.9 Obesity, unspecified; Z79.1 Long term (current) use of non-steroidal anti-inflammatories (NSAID); Z79.52 Long term (current) use of systemic steroids; Z79.899 Other long term (current) drug therapy; Z88.0 Allergy status to penicillin; Z88.2 Allergy status to sulfonamides; Z88.7 Allergy status to serum and vaccine; Z88.8 Allergy status to other drugs, medicaments and biological substances; Z91.048 Other nonmedicinal substance allergy status; Z68.43 Body mass index [BMI] 50.0-59.9, adult
CPT/HCPCS: 94640; 99285; 96372; J2060

== ENCOUNTER 2017-10-29 12:57 | Emergency (ER) | payer MEDICARE, OTHER ==
[2017-10-29 13:10] VITALS: RESP 18
[2017-10-29] MEDS ORDERED: SODIUM CHLORIDE 0.9% 500 ML IV STA (13:39)
[2017-10-29] MEDS ORDERED: LORazepam 2 MG/ML INJ IV STA (13:39)
--- NOTE | 2017-10-29 13:43 | ED ---
General Adult HPI - General Chief complaint: Abdominal Pain Stated complaint: Stomach pain Time Seen by Provider: 10/29/17 13:05 Source: patient, RN notes reviewed Mode of arrival: wheelchair Limitations: physical limitation - History of Present Illness Initial comments: This is a 57-year-old female who presents emergency Department complaining of abdominal pain. Patient states she took a few bites percent which and then she felt as though a cat was trying a claw out of her stomach. Patient states she was nauseated that time but did not vomit. Patient denies any diarrhea. Patient states the pain is better now but now she is very anxious about having had the pain. Patient denies any chest pain difficulty breathing or shortness of breath. Patient denies any fever or chills. Patient states she has had previous abdominal surgery but she was unable to tell me what surgery she had. Patient denies any dysuria hematuria urinary frequency. Patient denies any back pain. Patient denies any headache patient denies numbness or weakness. - Related Data Home Medications Medication Instructions Recorded Confirmed rOPINIRole HCL [Requip] 3 mg PO HS@199905/05/16 10/29/17 rOPINIRole HCL [Requip] 2 mg PO DAILY@0700 10/30/16 10/29/17 Mirabegron [Myrbetriq] 50 mg PO DAILY@0800 05/23/17 10/29/17 Atorvastatin [Lipitor] 10 mg PO HS@199906/07/17 10/29/17 Carvedilol [Coreg] 25 mg PO BID@0800,199906/07/17 10/29/17 Cholecalciferol [Vitamin D3] 1,000 unit PO DAILY@0806/07/17 10/29/17 Divalproex Sodium [Depakote] 1,000 mg PO HS@199906/07/17 10/29/17 Loratadine [Claritin] 10 mg PO DAILY@0800 06/07/17 10/29/17 Multivitamins, Thera [Multivitamin 1 tab PO DAILY@0800 06/07/17 10/29/17 (formulary)] Omeprazole 20 mg PO DAILY@0800 06/07/17 10/29/17 Ibuprofen [Motrin] 600 mg PO QID@08,12,16,20 06/09/17 10/29/17 DULoxetine HCL [Cymbalta] 60 mg PO DAILY@0800 10/20/17 10/29/17 Fluconazole [Diflucan] 150 mg PO MO@0800 10/20/17 10/29/17 Levothyroxine Sodium [Synthroid] 137 mcg PO DAILY@0800 10/20/17 10/29/17 Nystatin 1 applic TOPICAL HS@199910/20/17 10/29/17 SILVER sulfADIAZINE Cream 1 applic TOPICAL BID@0800,199910/20/17 10/29/17 [Silvadene 1% Cream] hydrALAZINE HCL [Apresoline] 50 mg PO TID@0800,1200,199910/20/17 10/29/17 Albuterol Inhaler [Ventolin Hfa 1 - 2 puff INHALATION RT-Q4H PRN 10/24/17 Inhaler] Allergies Allergy/AdvReac Type Severity Reaction Status Date / Time buspirone [From BuSpar] Allergy Unknown Verified 10/29/17 13:45 haloperidol [From Haldol] Allergy Swelling Verified 10/29/17 13:45 iodine Allergy Swelling Verified 10/29/17 13:45 Penicillins Allergy Swelling Verified 10/29/17 13:45 prochlorperazine Allergy Rash/Hives Verified 10/29/17 13:45 Sulfa (Sulfonamide Allergy Rash/Hives Verified 10/29/17 13:45 Antibiotics) Tetanus Vaccines and Toxoid Allergy Rash/Hives Verified 10/29/17 13:45 [Tetanus Vaccines & Toxoid] trifluoperazine HCl Allergy Unknown Verified 10/29/17 13:45 [From Stelazine] Review of Systems ROS Statement: Those systems with pertinent positive or pertinent negative responses have been documented in the HPI. ROS Other: All systems not noted in ROS Statement are negative. Past Medical History Past Medical History: Asthma, Diabetes Mellitus, Hyperlipidemia, Hypertension, Musculoskeletal Disorder, Osteoarthritis (OA), Thyroid Disorder Additional Past Medical History / Comment(s): Morbid obesity History of Any Multi-Drug Resistant Organisms: None Reported Past Surgical History: Bariatric Surgery, Hernia Repair, Orthopedic Surgery Additional Past Surgical History / Comment(s): Total Right knee replacement, 3 hernia repairs. Left hip repair Past Anesthesia/Blood Transfusion Reactions: No Reported Reaction Past Psychological History: Anxiety, Bipolar, Depression Smoking Status: Never smoker Past Alcohol Use History: None Reported Past Drug Use History: None Reported - Past Family History Mother Family Medical History: Cancer Additional Family Medical History / Comment(s): lung cancer Father Additional Family Medical History / Comment(s): "my dad from a blood clot" patient is unsure where the blood clot was. Brother(s) Family Medical History: Diabetes Mellitus Sister(s) Additional Family Medical History / Comment(s): "her heart races too fast" General Exam - General Exam Comments Initial Comments: GENERAL: Patient is well-developed and well-nourished. Patient is nontoxic and well- hydrated and is in no distress. ENT: Neck is soft and supple. No significant lymphadenopathy is noted. Oropharynx is clear. Moist mucous membranes. Neck has full range of motion without eliciting any pain. EYES: The sclera were anicteric and conjunctiva were pink and moist. Extraocular movements were intact and pupils were equal round and reactive to light. Eyelids were unremarkable. PULMONARY: Unlabored respirations. Good breath sounds bilaterally. No audible rales rhonchi or wheezing was noted. CARDIOVASCULAR: There is a regular rate and rhythm without any murmurs gallops or rubs. ABDOMEN: Soft and nontender with normal bowel sounds. No palpable organomegaly was noted. There is no palpable pulsatile mass. SKIN: Skin is clear with no lesions or rashes and otherwise unremarkable. NEUROLOGIC: Patient is alert and oriented x3. Cranial nerves II through XII are grossly intact. Motor and sensory are also intact. Normal speech, volume and content. Symmetrical smile. MUSCULOSKELETAL: Normal extremities with adequate strength and full range of motion. LYMPHATICS: No significant lymphadenopathy is noted PSYCHIATRIC: Patient seems moderately anxious Limitations: physical limitation Course Vital Signs 10/29/17 13:06 Temperature 97.9 F Pulse Rate 89 Respiratory 18 Rate Blood Pressure 112/56 O2 Sat by Pulse 94 L Oximetry Medical Decision Making - Medical Decision Making KUB shows no acute abnormality Patient was sleeping in the room and actually no distress. Patient is able to tolerate fluids. - Lab Data Result diagrams: 10/29/17 13:46 10/29/17 13:46 Lab Results 10/29/17 10/29/17 Range/Units 13:46 13:46 WBC 9.0 (3.8-10.6) k/uL RBC 4.10 (3.80-5.40) m/uL Hgb 11.7 (11.4-16.0) gm/dL Hct 36.9 (34.0-46.0) % MCV 90.0 (80.0-100.0) fL MCH 28.5 (25.0-35.0) pg MCHC 31.6 (31.0-37.0) g/dL RDW 13.0 (11.5-15.5) % Plt Count 307 (150-450) k/uL Neutrophils % 73 % Lymphocytes % 17 % Monocytes % 6 % Eosinophils % 2 % Basophils % 0 % Neutrophils # 6.6 (1.3-7.7) k/uL Lymphocytes # 1.5 (1.0-4.8) k/uL Monocytes # 0.5 (0-1.0) k/uL Eosinophils # 0.2 (0-0.7) k/uL Basophils # 0.0 (0-0.2) k/uL Sodium 142 (137-145) mmol/L Potassium 4.2 (3.5-5.1) mmol/L Chloride 107 (98-107) mmol/L Carbon Dioxide 24 (22-30) mmol/L Anion Gap 11 mmol/L BUN 29 H (7-17) mg/dL Creatinine 0.90 (0.52-1.04) mg/dL Est GFR (MDRD) Af Amer >60 (>60 ml/min/1.73 sqM) Est GFR (MDRD) Non-Af >60 (>60 ml/min/1.73 sqM) Glucose 80 (74-99) mg/dL Calcium 9.2 (8.4-10.2) mg/dL Total Bilirubin 0.2 (0.2-1.3) mg/dL AST 16 (14-36) U/L ALT 24 (9-52) U/L Alkaline Phosphatase 69 (38-126) U/L Total Protein 6.2 L (6.3-8.2) g/dL Albumin 3.7 (3.5-5.0) g/dL Amylase 36 (30-110) U/L Lipase 62 (23-300) U/L Disposition Clinical Impression: Abdominal pain, Acute anxiety Disposition: HOME SELF-CARE Condition: Good Instructions: Abdominal Pain (ED) Referrals: Libra Umaña MD [Primary Care Provider] - 1-2 days Time of Disposition: 14:39
[2017-10-29 14:05] LABS: Basophils % (A) 0 %; Eosinophils # (A) 0.2 k/uL (0-0.7); Eosinophils % (A) 2 %; HCT 36.9 % (34.0-46.0); HGB 11.7 gm/dL (11.4-16.0); Lymphocytes # (A) 1.5 k/uL (1.0-4.8); Lymphocytes % (A) 17 %; MCH 28.5 pg (25.0-35.0); MCHC 31.6 g/dL (31.0-37.0); Mean Platelet Volume 8.6; Monocytes # (A) 0.5 k/uL (0-1.0); Monocytes % (A) 6 %; Neutrophils # (A) 6.6 k/uL (1.3-7.7); Neutrophils % (A) 73 %; Platelet Count 307 k/uL (150-450)
--- NOTE | 2017-10-29 14:06 | XR ---
EXAMINATION TYPE: XR KUB DATE OF EXAM: 10/29/2017 COMPARISON: NONE HISTORY: Abdominal pain TECHNIQUE: One view abdominal series FINDINGS: The osseous structures are intact. The bowel gas pattern is nonspecific. There are dilated large and small bowel loops are nonspecific pattern. Postsurgical change left hip and arthritic change right h ip. Degenerative change of the spine. IMPRESSION: 1. Nonspecific abdomen differential includes obstruction versus ileus. Correlate clinically.
[2017-10-29 14:08] LABS: ALT 24 U/L (9-52); AST 16 U/L (14-36); Albumin 3.7 g/dL (3.5-5.0); Alkaline Phosphatase 69 U/L (38-126); Amylase 36 U/L (30-110); Anion Gap 11 mmol/L; Blood Urea Nitrogen 29 mg/dL (7-17); Calcium 9.2 mg/dL (8.4-10.2); Carbon Dioxide 24 mmol/L (22-30); Chloride 107 mmol/L (98-107); Glucose 80 mg/dL (74-99); Lipase 62 U/L (23-300); Potassium 4.2 mmol/L (3.5-5.1); Sodium 142 mmol/L (137-145); Total Bilirubin 0.2 mg/dL (0.2-1.3); Total Protein 6.2 g/dL (6.3-8.2)
[2017-10-29 14:53] VITALS: BP 117/58; PULSE 76; TEMP 96.9
== END 2017-10-29 15:04 | disposition home or self-care (01) ==
LOC: EC 12:57
DX: F41.9 Anxiety disorder, unspecified (principal); R10.9 Unspecified abdominal pain; R11.0 Nausea; E78.5 Hyperlipidemia, unspecified; I10 Essential (primary) hypertension; E07.9 Disorder of thyroid, unspecified; M19.90 Unspecified osteoarthritis, unspecified site; F31.9 Bipolar disorder, unspecified; E66.01 Morbid (severe) obesity due to excess calories; Z79.1 Long term (current) use of non-steroidal anti-inflammatories (NSAID); Z79.899 Other long term (current) drug therapy; Z88.0 Allergy status to penicillin; Z88.2 Allergy status to sulfonamides; Z88.7 Allergy status to serum and vaccine; Z88.8 Allergy status to other drugs, medicaments and biological substances; Z91.048 Other nonmedicinal substance allergy status; Z98.84 Bariatric surgery status; Z68.44 Body mass index [BMI] 60.0-69.9, adult
CPT/HCPCS: 99284; 96374; 96361; 36415; 80053; 82150; 83690; 85025; 74018; J2060

== ENCOUNTER 2017-11-03 23:21 | Inpatient (IN) | payer MEDICARE, OTHER ==
[2017-11-03] MEDS ORDERED: ASPIRIN 81 MG PO STA (23:28)
[2017-11-03] MEDS ORDERED: SODIUM CHLORIDE 0.9% 500 ML IV STA (23:28)
--- NOTE | 2017-11-03 23:45 | ED ---
General Adult HPI - General Chief complaint: Chest Pain Stated complaint: CHEST HEAVINESS,SJ Time Seen by Provider: 11/03/17 23:21 Source: patient, EMS, RN notes reviewed Mode of arrival: EMS Limitations: no limitations - History of Present Illness Initial comments: This a 57 old female presents emergency Department complaining of intermittent chest pain for the last 2-3 weeks. Patient states the pain usually lasts approximately one hour and subsided. Patient states the pain is on she typically has some shortness of breath. Patient states she went to see her primary medical care doctor about this and he diagnosed with asthma gave her couple of inhalers. Patient states occasionally they do make her feel as though she is breathing better but she continues to have intermittent chest pain. Patient states the pain does radiate to her right shoulder. Patient denies any diaphoresis. Patient denies any nausea. Patient denies abdominal pain. Patient denies any headache patient denies numbness weakness. Patient denies lightheadedness dizziness or near syncopal episode. - Related Data Home Medications Medication Instructions Recorded Confirmed rOPINIRole HCL [Requip] 3 mg PO HS@199905/05/16 11/03/17 rOPINIRole HCL [Requip] 2 mg PO DAILY@0700 10/30/16 11/03/17 Mirabegron [Myrbetriq] 50 mg PO DAILY@0800 05/23/17 11/03/17 Atorvastatin [Lipitor] 10 mg PO HS@199906/07/17 11/03/17 Carvedilol [Coreg] 25 mg PO BID@0800,199906/07/17 11/03/17 Cholecalciferol [Vitamin D3] 1,000 unit PO DAILY@0800 06/07/17 11/03/17 Divalproex Sodium [Depakote] 1,000 mg PO HS@199906/07/17 11/03/17 Loratadine [Claritin] 10 mg PO DAILY@0800 06/07/17 11/03/17 Multivitamins, Thera [Multivitamin 1 tab PO DAILY@0800 06/07/17 11/03/17 (formulary)] Omeprazole 20 mg PO DAILY@0800 06/07/17 11/03/17 Ibuprofen [Motrin] 600 mg PO QID@08,12,16,20 06/09/17 11/03/17 DULoxetine HCL [Cymbalta] 60 mg PO DAILY@0800 10/20/17 11/03/17 Fluconazole [Diflucan] 150 mg PO MO@0800 10/20/17 11/03/17 Levothyroxine Sodium [Synthroid] 137 mcg PO DAILY@0800 10/20/17 11/03/17 Nystatin 1 applic TOPICAL HS@199910/20/17 11/03/17 SILVER sulfADIAZINE Cream 1 applic TOPICAL BID@0800,199910/20/17 11/03/17 [Silvadene 1% Cream] hydrALAZINE HCL [Apresoline] 50 mg PO TID@0800,1200,199910/20/17 11/03/17 Albuterol Inhaler [Ventolin Hfa 1 - 2 puff INHALATION RT-Q4H PRN 10/24/17 Inhaler] Allergies Allergy/AdvReac Type Severity Reaction Status Date / Time buspirone [From BuSpar] Allergy Unknown Verified 11/03/17 23:42 haloperidol [From Haldol] Allergy Swelling Verified 11/03/17 23:42 iodine Allergy Swelling Verified 11/03/17 23:42 Penicillins Allergy Swelling Verified 11/03/17 23:42 prochlorperazine Allergy Rash/Hives Verified 11/03/17 23:42 Sulfa (Sulfonamide Allergy Rash/Hives Verified 11/03/17 23:42 Antibiotics) Tetanus Vaccines and Toxoid Allergy Rash/Hives Verified 11/03/17 23:42 [Tetanus Vaccines & Toxoid] trifluoperazine HCl Allergy Unknown Verified 11/03/17 23:42 [From Stelazine] Review of Systems ROS Statement: Those systems with pertinent positive or pertinent negative responses have been documented in the HPI. ROS Other: All systems not noted in ROS Statement are negative. Past Medical History Past Medical History: Asthma, Diabetes Mellitus, Hyperlipidemia, Hypertension, Musculoskeletal Disorder, Osteoarthritis (OA), Thyroid Disorder Additional Past Medical History / Comment(s): Morbid obesity History of Any Multi-Drug Resistant Organisms: None Reported Past Surgical History: Bariatric Surgery, Hernia Repair, Orthopedic Surgery Additional Past Surgical History / Comment(s): Total Right knee replacement, 3 hernia repairs. Left hip repair Past Anesthesia/Blood Transfusion Reactions: No Reported Reaction Past Psychological History: Anxiety, Bipolar, Depression Smoking Status: Never smoker Past Alcohol Use History: None Reported Past Drug Use History: None Reported - Past Family History Mother Family Medical History: Cancer Additional Family Medical History / Comment(s): lung cancer Father Additional Family Medical History / Comment(s): "my dad from a blood clot" patient is unsure where the blood clot was. Brother(s) Family Medical History: Diabetes Mellitus Sister(s) Additional Family Medical History / Comment(s): "her heart races too fast" General Exam - General Exam Comments Initial Comments: GENERAL: Patient is well-developed and well-nourished. Patient is nontoxic and well- hydrated and is in no acute distress. ENT: Neck is soft and supple. No significant lymphadenopathy is noted. Oropharynx is clear. Moist mucous membranes. Neck has full range of motion without eliciting any pain. EYES: The sclera were anicteric and conjunctiva were pink and moist. Extraocular movements were intact and pupils were equal round and reactive to light. Eyelids were unremarkable. PULMONARY: Unlabored respirations. Good breath sounds bilaterally. No audible rales rhonchi or wheezing was noted. CARDIOVASCULAR: There is a regular rate and rhythm without any murmurs gallops or rubs. ABDOMEN: Soft and nontender with normal bowel sounds. No palpable organomegaly was noted. There is no palpable pulsatile mass. SKIN: Skin is clear with no lesions or rashes and otherwise unremarkable. NEUROLOGIC: Patient is alert and oriented x3. Cranial nerves II through XII are grossly intact. Motor and sensory are also intact. Normal speech, volume and content. Symmetrical smile. MUSCULOSKELETAL: Normal extremities with adequate strength and full range of motion. LYMPHATICS: No significant lymphadenopathy is noted PSYCHIATRIC: Normal psychiatric evaluation. Limitations: no limitations Course Vital Signs 11/03/17 23:30 Temperature 97.7 F Pulse Rate 87 Respiratory 20 Rate Blood Pressure 93/57 O2 Sat by Pulse 98 Oximetry Medical Decision Making - Medical Decision Making EKG shows normal sinus rhythm at 80 bpm SC interval is 158 QRSs 80 QT interval 358 QTC is 412 per patient's EKG shows no ST segment elevation or depression or T wave abnormalities are noted. Chest x-ray shows no acute abnormality Patient is anemic. - Lab Data Result diagrams: 11/03/17 23:39 11/03/17 23:39 Lab Results 11/03/17 11/03/17 11/03/17 Range/Units 23:39 23:39 23:39 WBC 6.0 (3.8-10.6) k/uL RBC 3.13 L (3.80-5.40) m/uL Hgb 8.9 L D (11.4-16.0) gm/dL Hct 27.7 L (34.0-46.0) % MCV 88.6 (80.0-100.0) fL MCH 28.4 (25.0-35.0) pg MCHC 32.1 (31.0-37.0) g/dL RDW 13.3 (11.5-15.5) % Plt Count 222 (150-450) k/uL Neutrophils % 68 % Lymphocytes % 20 % Monocytes % 7 % Eosinophils % 2 % Basophils % 0 % Neutrophils # 4.1 (1.3-7.7) k/uL Lymphocytes # 1.2 (1.0-4.8) k/uL Monocytes # 0.4 (0-1.0) k/uL Eosinophils # 0.1 (0-0.7) k/uL Basophils # 0.0 (0-0.2) k/uL PT (9.0-12.0) sec INR (<1.2) APTT (22.0-30.0) sec Sodium 142 (137-145) mmol/L Potassium 3.6 (3.5-5.1) mmol/L Chloride 115 H (98-107) mmol/L Carbon Dioxide 21 L (22-30) mmol/L Anion Gap 6 mmol/L BUN 28 H (7-17) mg/dL Creatinine 0.60 (0.52-1.04) mg/dL Est GFR (MDRD) Af Amer >60 (>60 ml/min/1.73 sqM) Est GFR (MDRD) Non-Af >60 (>60 ml/min/1.73 sqM) Glucose 92 (74-99) mg/dL Calcium 7.7 L (8.4-10.2) mg/dL Magnesium 1.8 (1.6-2.3) mg/dL Total Bilirubin <0.1 L (0.2-1.3) mg/dL AST 15 (14-36) U/L ALT 23 (9-52) U/L Alkaline Phosphatase 59 (38-126) U/L Total Creatine Kinase 48 (30-135) U/L CK-MB (CK-2) 0.6 (0.0-2.4) ng/mL CK-MB (CK-2) Rel Index 1.3 Troponin I <0.012 (0.000-0.034) ng/mL NT-Pro-B Natriuret Pep pg/mL Total Protein 4.8 L (6.3-8.2) g/dL Albumin 2.6 L (3.5-5.0) g/dL 11/03/17 11/03/17 Range/Units 23:39 23:39 WBC (3.8-10.6) k/uL RBC (3.80-5.40) m/uL Hgb (11.4-16.0) gm/dL Hct (34.0-46.0) % MCV (80.0-100.0) fL MCH (25.0-35.0) pg MCHC (31.0-37.0) g/dL RDW (11.5-15.5) % Plt Count (150-450) k/uL Neutrophils % % Lymphocytes % % Monocytes % % Eosinophils % % Basophils % % Neutrophils # (1.3-7.7) k/uL Lymphocytes # (1.0-4.8) k/uL Monocytes # (0-1.0) k/uL Eosinophils # (0-0.7) k/uL Basophils # (0-0.2) k/uL PT 9.4 (9.0-12.0) sec INR 0.9 (<1.2) APTT 22.3 (22.0-30.0) sec Sodium (137-145) mmol/L Potassium (3.5-5.1) mmol/L Chloride (98-107) mmol/L Carbon Dioxide (22-30) mmol/L Anion Gap mmol/L BUN (7-17) mg/dL Creatinine (0.52-1.04) mg/dL Est GFR (MDRD) Af Amer (>60 ml/min/1.73 sqM) Est GFR (MDRD) Non-Af (>60 ml/min/1.73 sqM) Glucose (74-99) mg/dL Calcium (8.4-10.2) mg/dL Magnesium (1.6-2.3) mg/dL Total Bilirubin (0.2-1.3) mg/dL AST (14-36) U/L ALT (9-52) U/L Alkaline Phosphatase (38-126) U/L Total Creatine Kinase (30-135) U/L CK-MB (CK-2) (0.0-2.4) ng/mL CK-MB (CK-2) Rel Index Troponin I (0.000-0.034) ng/mL NT-Pro-B Natriuret Pep 920 pg/mL Total Protein (6.3-8.2) g/dL Albumin (3.5-5.0) g/dL Disposition Clinical Impression: Chest pain, Dyspnea, Anemia Disposition: ADMITTED IP TO THIS HOSP Referrals: Libra Umaña MD [Primary Care Provider] - 1-2 days Time of Disposition: 00:34
[2017-11-03 23:52] LABS: Basophils % (A) 0 %; Eosinophils # (A) 0.1 k/uL (0-0.7); Eosinophils % (A) 2 %; HCT 27.7 % (34.0-46.0); Lymphocytes # (A) 1.2 k/uL (1.0-4.8); Lymphocytes % (A) 20 %; MCH 28.4 pg (25.0-35.0); MCHC 32.1 g/dL (31.0-37.0); MCV 88.6 fL (80.0-100.0); Mean Platelet Volume 8.8; Monocytes # (A) 0.4 k/uL (0-1.0); Monocytes % (A) 7 %; Neutrophils # (A) 4.1 k/uL (1.3-7.7); Neutrophils % (A) 68 %; Platelet Count 222 k/uL (150-450); RBC 3.13 m/uL (3.80-5.40); RDW 13.3 % (11.5-15.5)
[2017-11-03 23:55] LABS: HGB 8.9 gm/dL (11.4-16.0)
[2017-11-04 00:01] LABS: INR 0.9 (<1.2); Partial Thromboplastin Time 22.3 sec (22.0-30.0); Prothrombin Time 9.4 sec (9.0-12.0)
[2017-11-04 00:08] LABS: ALT 23 U/L (9-52); AST 15 U/L (14-36); Albumin 2.6 g/dL (3.5-5.0); Alkaline Phosphatase 59 U/L (38-126); Blood Urea Nitrogen 28 mg/dL (7-17); Calcium 7.7 mg/dL (8.4-10.2); Chloride 115 mmol/L (98-107); Glucose 92 mg/dL (74-99); Potassium 3.6 mmol/L (3.5-5.1); Sodium 142 mmol/L (137-145); Total Bilirubin <0.1 mg/dL (0.2-1.3); Total Protein 4.8 g/dL (6.3-8.2)
[2017-11-04 00:09] LABS: Anion Gap 6 mmol/L; Carbon Dioxide 21 mmol/L (22-30)
--- NOTE | 2017-11-04 00:11 | XR ---
EXAMINATION TYPE: XR chest 2V DATE OF EXAM: 11/04/2017 COMPARISON: 10/24/2017 HISTORY: Short of breath. Chest pain. TECHNIQUE: Frontal and lateral views of the chest are obtained. FINDINGS: Heart appears enlarged. There is mild pulmonary congestion. There is no pleural effusion. There are chest leads. Bony thorax is intact. IMPRESSION: There is new mild pulmonary vascular congestion compared to old exam. There is probably mild heart failure.
[2017-11-04 00:16] LABS: Creatine Kinase 48 U/L (30-135)
[2017-11-04 00:27] LABS: Creatine Kinase MB 0.6 ng/mL (0.0-2.4); Troponin I <0.012 ng/mL (0.000-0.034)
[2017-11-04] MEDS ORDERED: NITROGLYCERIN SL TABS 0.4 MG TAB SUBLINGUAL PRN (00:34)
[2017-11-04 06:06] LABS: Creatine Kinase 47 U/L (30-135)
[2017-11-04] MEDS ORDERED: ACETAMINOPHEN TAB 500 MG TAB PO STA (06:15)
[2017-11-04 06:19] LABS: Creatine Kinase MB 0.7 ng/mL (0.0-2.4); Troponin I <0.012 ng/mL (0.000-0.034)
[2017-11-04 07:27] LABS: Basophils % (A) 0 %; Eosinophils # (A) 0.1 k/uL (0-0.7); Eosinophils % (A) 2 %; HCT 32.4 % (34.0-46.0); HGB 10.1 gm/dL (11.4-16.0); Hypochromasia Slight; Lymphocytes # (A) 1.2 k/uL (1.0-4.8); Lymphocytes % (A) 22 %; MCH 28.5 pg (25.0-35.0); MCHC 31.1 g/dL (31.0-37.0); MCV 91.8 fL (80.0-100.0); Monocytes # (A) 0.4 k/uL (0-1.0); Monocytes % (A) 8 %; Neutrophils # (A) 3.5 k/uL (1.3-7.7); Neutrophils % (A) 66 %; Platelet Count 213 k/uL (150-450); RBC 3.53 m/uL (3.80-5.40); RDW 13.3 % (11.5-15.5); WBC 5.3 k/uL (3.8-10.6)
[2017-11-04] MEDS ORDERED: PANTOPRAZOLE 40 MG/10 ML VIAL IVP SCH (10:15)
[2017-11-04] MEDS ORDERED: KETOROLAC 30 MG/ML 1 ML VIAL IVP PRN (10:15)
[2017-11-04 11:29] LABS: Glucose,Whole Blood 82 mg/dL (75-99)
[2017-11-04] MEDS ORDERED: KETOROLAC 30 MG/ML 1 ML VIAL IVP SCH (12:00)
--- NOTE | 2017-11-04 12:26 | P.CRDCN ---
History of Present Illness Reason for Consult (text): Patient interviewed and examined. On direct interviewed she denied chest discomfort and stated that she was short of breath for the last 3 weeks In addition she had a stuffy nose Twelve-lead ECG did not show any ST segment abnormalities, 2 chronic enzymes are normal BNP 920 renal function was normal liver function normal Velia hemoglobin was 8.9 now it is 10.1 Past history of asthma and obesity diabetes dyslipidemia Suggest 2-D echo and Doppler study to assess LV size and function as well as RV size and function and valves D-dimer today If these are normal then we may consider dobutamine stress echo tomorrow See full dictation by Dr. salcedo Past Medical History Past Medical History: Asthma, Diabetes Mellitus, GERD/Reflux, Hyperlipidemia, Hypertension, Musculoskeletal Disorder, Osteoarthritis (OA), Thyroid Disorder Additional Past Medical History / Comment(s): Recently diagnosed with asthma and recently treated for bronchitis with antibiotic, diet controlled diabetes, morbid obesity, hypothyroid, UTI, RLS, anemia, lumbar pain with herniated discs. History of Any Multi-Drug Resistant Organisms: None Reported Past Surgical History: Bariatric Surgery, Hernia Repair, Orthopedic Surgery Additional Past Surgical History / Comment(s): Total Right knee replacement, 3 abdominal hernia repairs, left hip repair Past Anesthesia/Blood Transfusion Reactions: No Reported Reaction Smoking Status: Never smoker - Past Family History Mother Family Medical History: Cancer Additional Family Medical History / Comment(s): lung cancer Father Additional Family Medical History / Comment(s): "my dad from a blood clot that traveled from his leg to his lung and also caused a heart attack." Brother(s) Family Medical History: Diabetes Mellitus Sister(s) Additional Family Medical History / Comment(s): "her heart races too fast" Medications and Allergies Home Medications Medication Instructions Recorded Confirmed Type rOPINIRole HCL [Requip] 3 mg PO HS@199905/05/16 11/03/17 History rOPINIRole HCL [Requip] 2 mg PO DAILY@0710/30/16 11/03/17 History Mirabegron [Myrbetriq] 50 mg PO DAILY@0800 05/23/17 11/03/17 History Atorvastatin [Lipitor] 10 mg PO HS@199906/07/17 11/03/17 History Carvedilol [Coreg] 25 mg PO BID@0800,199906/07/17 11/03/17 History Cholecalciferol [Vitamin D3] 1,000 unit PO DAILY@0800 06/07/17 11/03/17 History Divalproex Sodium [Depakote] 1,000 mg PO HS@199906/07/17 11/03/17 History Loratadine [Claritin] 10 mg PO DAILY@0800 06/07/17 11/03/17 History Multivitamins, Thera [Multivitamin 1 tab PO DAILY@0800 06/07/17 11/03/17 History (formulary)] Omeprazole 20 mg PO DAILY@0800 06/07/17 11/03/17 History Ibuprofen [Motrin] 600 mg PO QID@08,12,16,06/09/17 11/03/17 History DULoxetine HCL [Cymbalta] 60 mg PO DAILY@0800 10/20/17 11/03/17 History Fluconazole [Diflucan] 150 mg PO MO@0810/20/17 11/03/17 History Levothyroxine Sodium [Synthroid] 137 mcg PO DAILY@0800 10/20/17 11/03/17 History Nystatin 1 applic TOPICAL HS@199910/20/17 11/03/17 History SILVER sulfADIAZINE Cream 1 applic TOPICAL BID@0800,199910/20/17 11/03/17 History [Silvadene 1% Cream] hydrALAZINE HCL [Apresoline] 50 mg PO TID@0800,1200,199910/20/17 11/03/17 History Albuterol Inhaler [Ventolin Hfa 1 - 2 puff INHALATION RT-Q4H PRN 10/24/17 History Inhaler] Allergies Allergy/AdvReac Type Severity Reaction Status Date / Time buspirone [From BuSpar] Allergy Unknown Verified 11/03/17 23:42 haloperidol [From Haldol] Allergy Swelling Verified 11/03/17 23:42 iodine Allergy Swelling Verified 11/03/17 23:42 Penicillins Allergy Swelling Verified 11/03/17 23:42 prochlorperazine Allergy Rash/Hives Verified 11/03/17 23:42 Sulfa (Sulfonamide Allergy Rash/Hives Verified 11/03/17 23:42 Antibiotics) Tetanus Vaccines and Toxoid Allergy Rash/Hives Verified 11/03/17 23:42 [Tetanus Vaccines & Toxoid] trifluoperazine HCl Allergy Unknown Verified 11/03/17 23:42 [From Stelazine] Physical Exam Vitals: Vital Signs Temp Pulse Resp BP Pulse Ox 11/04/17 10:21 96.9 F L 92 18 145/60 100 11/04/17 07:13 96.9 F L 78 16 118/67 100 11/04/17 06:31 96 11/03/17 23:30 97.7 F 87 20 93/57 98 Intake and Output 11/03/17 11/04/17 11/04/17 22:59 06:59 14:59 Other: Weight 163.293 kg Results 11/04/17 05:19 11/03/17 23:39 Cardiac Enzymes 11/03/17 11/03/17 11/04/17 Range/Units 23:39 23:39 05:19 AST 15 (14-36) U/L CK-MB (CK-2) 0.6 0.7 (0.0-2.4) ng/mL Troponin I <0.012 <0.012 (0.000-0.034) ng/mL Coagulation 11/03/17 Range/Units 23:39 PT 9.4 (9.0-12.0) sec APTT 22.3 (22.0-30.0) sec CBC 11/03/17 11/04/17 Range/Units 23:39 05:19 WBC 6.0 5.3 (3.8-10.6) k/uL RBC 3.13 L 3.53 L (3.80-5.40) m/uL Hgb 8.9 L D 10.1 L (11.4-16.0) gm/dL Hct 27.7 L 32.4 L (34.0-46.0) % Plt Count 222 213 (150-450) k/uL Comprehensive Metabolic Panel 11/03/17 Range/Units 23:39 Sodium 142 (137-145) mmol/L Potassium 3.6 (3.5-5.1) mmol/L Chloride 115 H (98-107) mmol/L Carbon Dioxide 21 L (22-30) mmol/L BUN 28 H (7-17) mg/dL Creatinine 0.60 (0.52-1.04) mg/dL Glucose 92 (74-99) mg/dL Calcium 7.7 L (8.4-10.2) mg/dL AST 15 (14-36) U/L ALT 23 (9-52) U/L Alkaline Phosphatase 59 (38-126) U/L Total Protein 4.8 L (6.3-8.2) g/dL Albumin 2.6 L (3.5-5.0) g/dL Current Medications Generic Name Dose Route Start Last Admin Trade Name Freq PRN Reason Stop Dose Admin Aspirin 325 mg 11/05/17 09:00 Aspirin PO DAILY LISSETT Ketorolac Tromethamine 15 mg 11/04/17 10:15 11/04/17 10:22 Toradol IVP 11/08/17 10:10 15 mg Q6HR PRN Administration Pain Nitroglycerin 0.4 mg 11/04/17 00:34 Nitrostat SUBLINGUAL Q5M PRN Chest Pain Pantoprazole Sodium 40 mg 11/04/17 10:15 11/04/17 10:28 Protonix IVP 40 mg DAILY LISSETT Administration Intake and Output 11/03/17 11/04/17 11/04/17 22:59 06:59 14:59 Other: Weight 163.293 kg 11/04/17 05:19 11/03/17 23:39
[2017-11-04 12:53] LABS: Creatine Kinase 39 U/L (30-135)
[2017-11-04 13:05] LABS: Creatine Kinase MB 0.5 ng/mL (0.0-2.4); Troponin I <0.012 ng/mL (0.000-0.034)
--- NOTE | 2017-11-04 14:05 | P.CRDCN ---
History of Present Illness Consult date: 11/04/17 Requesting physician: Drake Broussard Consult reason: shortness of breath Chief complaint: Shortness of breath History of present illness: This is a 57-year-old female with morbid obesity. Past medical history significant for mild coronary artery disease, hypothyroidism, hyperlipidemia and hypertension. She follows regularly with Dr. Lenz. Patient presents to the hospital mainly with symptoms of progressively worsening shortness of breath. She also states she gets intermittent chest discomfort but mainly has come to the hospital because of her difficulty in breathing and sinus congestion. She states that she was started on inhalers as an outpatient , her physician felt she may have asthma. Blood pressure 118/60 with a heart rate in the 70s, afebrile. Hemoglobin on admission 8.9, 10.1 this morning. Platelet count 222 and 213. Sodium 142, potassium 3.6, BUN 28, creatinine 0.6. D-dimer 1.28. Troponins were negative 3, BNP level 920. Chest x-ray did reveal new mild pulmonary vascular congestion as compared with prior exam. We will give the patient one time dose of IV Lasix. Because of the abnormal d- dimer, we would recommend that the patient undergo ET of the chest to rule out pulmonary embolism. Past Medical History Past Medical History: Asthma, Diabetes Mellitus, GERD/Reflux, Hyperlipidemia, Hypertension, Musculoskeletal Disorder, Osteoarthritis (OA), Thyroid Disorder Additional Past Medical History / Comment(s): Recently diagnosed with asthma and recently treated for bronchitis with antibiotic, diet controlled diabetes, morbid obesity, hypothyroid, UTI, RLS, anemia, lumbar pain with herniated discs. History of Any Multi-Drug Resistant Organisms: None Reported Past Surgical History: Bariatric Surgery, Hernia Repair, Orthopedic Surgery Additional Past Surgical History / Comment(s): Total Right knee replacement, 3 abdominal hernia repairs, left hip repair Past Anesthesia/Blood Transfusion Reactions: No Reported Reaction Smoking Status: Never smoker - Past Family History Mother Family Medical History: Cancer Additional Family Medical History / Comment(s): lung cancer Father Additional Family Medical History / Comment(s): "my dad from a blood clot that traveled from his leg to his lung and also caused a heart attack." Brother(s) Family Medical History: Diabetes Mellitus Sister(s) Additional Family Medical History / Comment(s): "her heart races too fast" Medications and Allergies Home Medications Medication Instructions Recorded Confirmed Type rOPINIRole HCL [Requip] 3 mg PO HS@199905/05/16 11/03/17 History rOPINIRole HCL [Requip] 2 mg PO DAILY@0700 10/30/16 11/03/17 History Mirabegron [Myrbetriq] 50 mg PO DAILY@0800 05/23/17 11/03/17 History Atorvastatin [Lipitor] 10 mg PO HS@199906/07/17 11/03/17 History Carvedilol [Coreg] 25 mg PO BID@08,199906/07/17 11/03/17 History Cholecalciferol [Vitamin D3] 1,000 unit PO DAILY@0806/07/17 11/03/17 History Divalproex Sodium [Depakote] 1,000 mg PO HS@199906/07/17 11/03/17 History Loratadine [Claritin] 10 mg PO DAILY@0800 06/07/17 11/03/17 History Multivitamins, Thera [Multivitamin 1 tab PO DAILY@0800 06/07/17 11/03/17 History (formulary)] Omeprazole 20 mg PO DAILY@0800 06/07/17 11/03/17 History Ibuprofen [Motrin] 600 mg PO QID@08,12,16,20 06/09/17 11/03/17 History DULoxetine HCL [Cymbalta] 60 mg PO DAILY@0800 10/20/17 11/03/17 History Fluconazole [Diflucan] 150 mg PO MO@0810/20/17 11/03/17 History Levothyroxine Sodium [Synthroid] 137 mcg PO DAILY@0800 10/20/17 11/03/17 History Nystatin 1 applic TOPICAL HS@199910/20/17 11/03/17 History SILVER sulfADIAZINE Cream 1 applic TOPICAL BID@08,199910/20/17 11/03/17 History [Silvadene 1% Cream] hydrALAZINE HCL [Apresoline] 50 mg PO TID@0800,1200,199910/20/17 11/03/17 History Albuterol Inhaler [Ventolin Hfa 1 - 2 puff INHALATION RT-Q4H PRN 10/24/17 History Inhaler] Allergies Allergy/AdvReac Type Severity Reaction Status Date / Time buspirone [From BuSpar] Allergy Unknown Verified 11/03/17 23:42 haloperidol [From Haldol] Allergy Swelling Verified 11/03/17 23:42 iodine Allergy Swelling Verified 11/03/17 23:42 Penicillins Allergy Swelling Verified 11/03/17 23:42 prochlorperazine Allergy Rash/Hives Verified 11/03/17 23:42 Sulfa (Sulfonamide Allergy Rash/Hives Verified 11/03/17 23:42 Antibiotics) Tetanus Vaccines and Toxoid Allergy Rash/Hives Verified 11/03/17 23:42 [Tetanus Vaccines & Toxoid] trifluoperazine HCl Allergy Unknown Verified 11/03/17 23:42 [From Stelazine] Physical Exam Vitals: Vital Signs Temp Pulse Pulse Resp BP BP Pulse Ox 11/04/17 12:00 97.0 F L 78 18 119/59 11/04/17 10:21 96.9 F L 92 18 145/60 100 11/04/17 07:13 96.9 F L 78 16 118/67 100 11/04/17 06:31 96 11/03/17 23:30 97.7 F 87 20 93/57 98 Intake and Output 11/03/17 11/04/17 11/04/17 22:59 06:59 14:59 Other: Weight 163.293 kg GENERAL: This is a 57-year-old female in no apparent distress at the time of my examination. Morbid obesity. HEENT: Head is atraumatic, normocephalic. Pupils are equal, round. Sclerae anicteric. Conjunctivae are clear. Mucous membranes of the mouth are moist. Neck is supple. There is no jugular venous distention. No carotid bruit is heard. LUNGS: Clear to auscultation no wheezes, rales or rhonchi. Mild chest wall tenderness is noted on palpation and with deep breathing. HEART: Regular rate and rhythm with mild ejection murmur auscultated at the base , no rubs or gallops. S1 and S2 heard. ABDOMEN: Soft, nontender. Bowel sounds are heard. No organomegaly noted. EXTREMITIES: 2+ peripheral pulses with no evidence of peripheral edema and no calf tenderness noted. NEUROLOGIC: Patient is awake, alert and oriented x3. Results 11/04/17 05:19 11/03/17 23:39 Cardiac Enzymes 11/03/17 11/03/17 11/04/17 Range/Units 23:39 23:39 05:19 AST 15 (14-36) U/L CK-MB (CK-2) 0.6 0.7 (0.0-2.4) ng/mL Troponin I <0.012 <0.012 (0.000-0.034) ng/mL 11/04/17 Range/Units 12:10 AST (14-36) U/L CK-MB (CK-2) 0.5 (0.0-2.4) ng/mL Troponin I <0.012 (0.000-0.034) ng/mL Coagulation 11/03/17 Range/Units 23:39 PT 9.4 (9.0-12.0) sec APTT 22.3 (22.0-30.0) sec CBC 11/03/17 11/04/17 Range/Units 23:39 05:19 WBC 6.0 5.3 (3.8-10.6) k/uL RBC 3.13 L 3.53 L (3.80-5.40) m/uL Hgb 8.9 L D 10.1 L (11.4-16.0) gm/dL Hct 27.7 L 32.4 L (34.0-46.0) % Plt Count 222 213 (150-450) k/uL Comprehensive Metabolic Panel 11/03/17 Range/Units 23:39 Sodium 142 (137-145) mmol/L Potassium 3.6 (3.5-5.1) mmol/L Chloride 115 H (98-107) mmol/L Carbon Dioxide 21 L (22-30) mmol/L BUN 28 H (7-17) mg/dL Creatinine 0.60 (0.52-1.04) mg/dL Glucose 92 (74-99) mg/dL Calcium 7.7 L (8.4-10.2) mg/dL AST 15 (14-36) U/L ALT 23 (9-52) U/L Alkaline Phosphatase 59 (38-126) U/L Total Protein 4.8 L (6.3-8.2) g/dL Albumin 2.6 L (3.5-5.0) g/dL Current Medications Generic Name Dose Route Start Last Admin Trade Name Brennanq PRN Reason Stop Dose Admin Aspirin 325 mg 11/05/17 09:00 Aspirin PO DAILY LISSETT Ketorolac Tromethamine 15 mg 11/04/17 10:15 11/04/17 10:22 Toradol IVP 11/08/17 10:10 15 mg Q6HR PRN Administration Pain Nitroglycerin 0.4 mg 11/04/17 00:34 Nitrostat SUBLINGUAL Q5M PRN Chest Pain Pantoprazole Sodium 40 mg 11/04/17 10:15 11/04/17 10:28 Protonix IVP 40 mg DAILY LISSETT Administration Intake and Output 11/03/17 11/04/17 11/04/17 22:59 06:59 14:59 Other: Weight 163.293 kg 11/04/17 05:19 11/03/17 23:39 EKG Interpretations (text) EKG shows normal sinus rhythm with no acute changes. Assessment and Plan Plan: ASSESSMENT 1. Shortness of breath, progressively worsening over a period of weeks. Sinus congestion and atypical chest discomfort. Troponins negative 3. EKG shows a normal sinus rhythm with no acute changes. D-dimer 1.28. 2. Hypertension 3. Hyperlipidemia 4. Hypothyroidism 5. Diabetes mellitus 6. Morbid obesity Plan We will obtain an echocardiogram with Doppler study. Because of the abnormal d- dimer we also recommend patient undergo CT of the chest to rule out the possibility of a pulmonary embolism. If negative we will consider dobutamine echocardiographic study in the morning. Further recommendations to follow. DNP note has been reviewed, I agree with a documented findings and plan of care. Patient was seen and examined.
[2017-11-04] MEDS ORDERED: RX INFO: IV CONTRAST WAS GIVEN 1 EACH MISC MISCELLANE PRN (14:08)
[2017-11-04] MEDS ORDERED: methylPREDNISolone SOD SUCCI 125 MG/2 ML VIAL IV ONE (14:24)
[2017-11-04] MEDS ORDERED: predniSONE 50 MG TAB PO ONE (14:24)
[2017-11-04] MEDS ORDERED: diphenhydrAMINE 50 MG CAP PO ONE (14:24)
[2017-11-04] MEDS: ATORVASTATIN 10 MG TAB PO SCH (15:08)
--- NOTE | 2017-11-04 16:18 | CT ---
EXAMINATION TYPE: CT angio chest DATE OF EXAM: 11/04/2017 COMPARISON: NONE HISTORY: SOB. CT DLP: 832.1 mGycm Automated exposure control for dose reduction was used. CONTRAST: CTA scan of the thorax is performed with IV Contrast, patient injected with 100ml mL of Omnipaque 350 , pulmonary embolism protocol. MIP images are created and reviewed. 3D reconstructed images are cre ated on an independent workstation and reviewed. FINDINGS: LUNGS: The lungs are remarkable for some scattered groundglass opacity, there is no concerning parenc hymal mass or nodule identified. There is no pleural effusion or pneumothorax seen. The tracheobro nchial tree is patent. AORTA: No additional significant abnormality is seen. MEDIASTINUM: There is some limitation in the exam likely due to patient body habitus, artifact, howev er, there is no CT evidence for pulmonary embolism. There are no greater than 1 cm hilar or mediasti nal lymph nodes. No pericardial effusion is seen. The heart is enlarged. Pulmonary artery is dilate d. OTHER: The spleen is enlarged. Postop changes are noted in the upper abdomen. The liver shows low attenuation possibly due to hepati c steatosis. IMPRESSION: NO EVIDENT PULMONARY EMBOLUS WITHIN LIMITATIONS OF THE EXAM. THERE MAY BE UNDERLYING ALVEOLITIS , EAR LY PULMONARY EDEMA , CORRELATE. CARDIOMEGALY. SPLENOMEGALY. CORRELATE FOR PULMONARY ARTERY HYPERTENSI ON.
[2017-11-04 16:38] LABS: Glucose,Whole Blood 79 mg/dL (75-99)
[2017-11-04] MEDS: CARVEDILOL 3.125 MG TAB PO SCH (17:15)
--- NOTE | 2017-11-04 19:33 | ECHOF ---
Referral Reason:NEW ONSET CHEST PAIN MEASUREMENTS -------- HEIGHT: 165.1 cm WEIGHT: 163.3 kg BP: 145/60 RVIDd: 3.5 cm (< 3.3) IVSd: 1.2 cm (0.6 - 1.1) LVIDd: 4.9 cm (3.9 - 5.3) LVPWd: 1.4 cm (0.6 - 1.1) IVSs: 1.6 cm LVIDs: 2.8 cm LVPWs: 1.6 cm LAESV Index (A-L): 25.68 ml/m Ao Diam: 3.4 cm (2.0 - 3.7) AV Cusp: 1.7 cm (1.5 - 2.6) LA Diam: 3.9 cm (2.7 - 3.8) MV E Wade: 1.38 m/s MV DecT: 222 ms MV A Wade: 1.22 m/s MV E/A Ratio: 1.13 AV maxP.12 mmHg AV meanP.90 mmHg RAP: 15.00 mmHg RVSP: 41.00 mmHg FINDINGS -------- Sinus rhythm. This was a technically difficult study with suboptimal views. The left ventricular size is normal. There is mild concentric left ventricular hypertrophy. Overa ll left ventricular systolic function is normal with, an EF between 55 - 60 %. The right ventricle is mildly enlarged. Normal LA size by volume 22+/-6 ml/m2. The right atrium is normal in size. 2.5ml of Lumason was utilized for enhancement of images. There is mild aortic valve sclerosis. There is no evidence of aortic regurgitation. There is mild aortic stenosis present. Peak/mean gradient across the Aortic Valve is 25.12mmHg / 15.90mmHg. The mitral valve leaflets are mildly thickened. There is trace to mild mitral regurgitation. Trace tricuspid regurgitation present. There is mild pulmonary hypertension. The right ventricula r systolic pressure, as measured by Doppler, is 41.00mmHg. The pulmonic valve was not well visualized. The aortic root size is normal. The inferior vena cava is dilated with no significant inspiratory collapse which is consistent estima narciso right atrial pressure of >20 mmHg. There is no pericardial effusion. CONCLUSIONS -------- 1. Sinus rhythm. 2. This was a technically difficult study with suboptimal views. 3. The left ventricular size is normal. 4. There is mild concentric left ventricular hypertrophy. 5. Overall left ventricular systolic function is normal with, an EF between 55 - 60 %. 6. The right ventricle is mildly enlarged. 7. Normal LA size by volume 22+/-6 ml/m2. 8. 2.5ml of Lumason was utilized for enhancement of images. 9. There is mild aortic valve sclerosis. 10. There is mild aortic stenosis present. 11. Peak/mean gradient across the Aortic Valve is 25.12mmHg / 15.90mmHg. 12. The mitral valve leaflets are mildly thickened. 13. There is trace to mild mitral regurgitation. 14. Trace tricuspid regurgitation present. 15. There is mild pulmonary hypertension. 16. The right ventricular systolic pressure, as measured by Doppler, is 41.00mmHg. 17. The pulmonic valve was not well visualized. 18. The aortic root size is normal. 19. The inferior vena cava is dilated with no significant inspiratory collapse which is consistent es timated right atrial pressure of >20 mmHg. 20. There is no pericardial effusion. [employer]UE[employer] REPRODUCER: Brody Leblanc RDCS
[2017-11-04] MEDS ORDERED: DIVALPROEX 500 MG TABLET.DR PO SCH (20:00)
[2017-11-04] MEDS: NYSTATIN 100,000UNIT/GM CREAM 30 GM TUBE TOPICAL SCH ×2 (21:02→21:48)
[2017-11-04] MEDS: HEPARIN SODIUM,PORCINE 5,000 UNIT/ML 1 ML VIAL SQ SCH (21:02)
--- NOTE | 2017-11-04 21:53 | P.HPIM ---
History of Present Illness H&P Date: 11/04/17 Chief Complaint: Chest tightness Patient is a 57 old female with a known history of diabetes type 2, GERD, hyperlipidemia, hyperlipidemia, hypertension and hypothyroidism and recently diagnosed with asthma as well as morbid obesity came to ER with complaints of worsening shortness of breath for the past 3 weeks. Patient also felt chest discomfort and difficulty breathing and felt like somebody sitting on the chest. Patient was recently diagnosed with asthma and previously was started on intravenous has not patient. Otherwise patient denied any cough or sputum production.Patient states occasionally they do make her feel as though she is breathing better but she continues to have intermittent chest pain. Patient states the pain does radiate to her right shoulder. Patient denies any diaphoresis. Patient denies any nausea. Patient denies abdominal pain. Patient denies any headache patient denies numbness weakness. Patient denies lightheadedness dizziness or near syncopal episode. Chest x-ray showed mild pulmonary vascular congestion D-dimer 1.28 CT of the chest showed no evidence of pulmonary embolism. Showed vascular congestion and pulmonary edema. And pulmonary hypertension EKG showed no ST-T wave elevation. Troponin 2 negative. BNP 920 Patient interviewed and examined. Review of Systems Constitutional: Patient denies any fever or chills . No generalized weakness or weight loss. Abdomen: Patient denied nausea vomiting and diarrhea and abdominal pain. Cardiovascular: Chest tightness and congestion and shortness of breath. No leg swelling no palpitations Respiratory: patient denied any cough is from production. No shortness of breath Neurologic: Patient denied any numbness or tingling headache. Musculoskeletal: Patient denies any complaints of joint swelling or deformity. Skin: Negative Psychiatric: Negative Endocrine: No heat or cold intolerance. No recent weight gain. Genitourinary: No dysuria or hematuria. All other 14 point ROS negative except the above Past Medical History Past Medical History: Asthma, Diabetes Mellitus, GERD/Reflux, Hyperlipidemia, Hypertension, Musculoskeletal Disorder, Osteoarthritis (OA), Thyroid Disorder Additional Past Medical History / Comment(s): Recently diagnosed with asthma and recently treated for bronchitis with antibiotic, diet controlled diabetes, morbid obesity, hypothyroid, UTI, RLS, anemia, lumbar pain with herniated discs. History of Any Multi-Drug Resistant Organisms: None Reported Past Surgical History: Bariatric Surgery, Hernia Repair, Orthopedic Surgery Additional Past Surgical History / Comment(s): Total Right knee replacement, 3 abdominal hernia repairs, left hip repair Past Anesthesia/Blood Transfusion Reactions: No Reported Reaction Smoking Status: Never smoker - Past Family History Mother Family Medical History: Cancer Additional Family Medical History / Comment(s): lung cancer Father Additional Family Medical History / Comment(s): "my dad from a blood clot that traveled from his leg to his lung and also caused a heart attack." Brother(s) Family Medical History: Diabetes Mellitus Sister(s) Additional Family Medical History / Comment(s): "her heart races too fast" Medications and Allergies Home Medications Medication Instructions Recorded Confirmed Type rOPINIRole HCL [Requip] 3 mg PO HS@199905/05/16 11/03/17 History rOPINIRole HCL [Requip] 2 mg PO DAILY@69910/30/16 11/03/17 History Mirabegron [Myrbetriq] 50 mg PO DAILY@0800 05/23/17 11/03/17 History Atorvastatin [Lipitor] 10 mg PO HS@199906/07/17 11/03/17 History Carvedilol [Coreg] 25 mg PO BID@799,199906/07/17 11/03/17 History Cholecalciferol [Vitamin D3] 1,000 unit PO DAILY@79906/07/17 11/03/17 History Divalproex Sodium [Depakote] 1,000 mg PO HS@199906/07/17 11/03/17 History Loratadine [Claritin] 10 mg PO DAILY@0800 06/07/17 11/03/17 History Multivitamins, Thera [Multivitamin 1 tab PO DAILY@0800 06/07/17 11/03/17 History (formulary)] Omeprazole 20 mg PO DAILY@0800 06/07/17 11/03/17 History Ibuprofen [Motrin] 600 mg PO QID@08,12,16,20 06/09/17 11/03/17 History DULoxetine HCL [Cymbalta] 60 mg PO DAILY@79910/20/17 11/03/17 History Fluconazole [Diflucan] 150 mg PO MO@0800 10/20/17 11/03/17 History Levothyroxine Sodium [Synthroid] 137 mcg PO DAILY@79910/20/17 11/03/17 History Nystatin 1 applic TOPICAL HS@199910/20/17 11/03/17 History SILVER sulfADIAZINE Cream 1 applic TOPICAL BID@0800,199910/20/17 11/03/17 History [Silvadene 1% Cream] hydrALAZINE HCL [Apresoline] 50 mg PO TID@0800,1200,199910/20/17 11/03/17 History Albuterol Inhaler [Ventolin Hfa 1 - 2 puff INHALATION RT-Q4H PRN 10/24/17 History Inhaler] hydrOXYzine PAMOATE [Vistaril] 50 mg PO TID 11/04/17 11/04/17 History Allergies Allergy/AdvReac Type Severity Reaction Status Date / Time buspirone [From BuSpar] Allergy Unknown Verified 11/03/17 23:42 haloperidol [From Haldol] Allergy Swelling Verified 11/03/17 23:42 iodine Allergy Swelling Verified 11/03/17 23:42 Penicillins Allergy Swelling Verified 11/03/17 23:42 prochlorperazine Allergy Rash/Hives Verified 11/03/17 23:42 Sulfa (Sulfonamide Allergy Rash/Hives Verified 11/03/17 23:42 Antibiotics) Tetanus Vaccines and Toxoid Allergy Rash/Hives Verified 11/03/17 23:42 [Tetanus Vaccines & Toxoid] trifluoperazine HCl Allergy Unknown Verified 11/03/17 23:42 [From Stelazine] Physical Exam Vitals: Vital Signs Temp Pulse Resp BP Pulse Ox 11/04/17 10:21 96.9 F L 92 18 145/60 100 11/04/17 07:13 96.9 F L 78 16 118/67 100 11/04/17 06:31 96 11/03/17 23:30 97.7 F 87 20 93/57 98 Intake and Output 11/03/17 11/04/17 11/04/17 22:59 06:59 14:59 Other: Weight 163.293 kg PHYSICAL EXAMINATION: Patient is lying in the bed comfortably, no acute distress, awake alert and oriented. Morbid obesity. HEENT: Normocephalic. Neck is supple. Pupils reactive. Nostrils clear. Oral cavity is moist. Ears reveal no drainage. Neck reveals no JVD, carotid bruits, or thyromegaly. CHEST EXAMINATION: Trachea is central. Symmetrical expansion. Bibasilar diminished air entry with minimal right basilar crackles. No wheezing CARDIAC: Normal S1, S2 with no gallops. No murmurs ABDOMEN: Soft. Bowel sounds normal. No organomegaly. No abdominal bruits. Extremities: Trace edema. No clubbing or cyanosis Neurologically awake, alert, oriented x3 with well-coordinated movements. No focal deficits noted Skin: No rash or skin lesions. Psychiatric: [id number]. Nonsuicidal Musculoskeletal: No joint swelling or deformity. Normal range of motion. Results CBC & Chem 7: 11/04/17 05:19 11/03/17 23:39 Labs: Abnormal Lab Results - Last 24 Hours (Table) 11/03/17 11/03/17 11/04/17 Range/Units 23:39 23:39 05:19 RBC 3.13 L 3.53 L (3.80-5.40) m/uL Hgb 8.9 L D 10.1 L (11.4-16.0) gm/dL Hct 27.7 L 32.4 L (34.0-46.0) % Chloride 115 H (98-107) mmol/L Carbon Dioxide 21 L (22-30) mmol/L BUN 28 H (7-17) mg/dL Calcium 7.7 L (8.4-10.2) mg/dL Total Bilirubin <0.1 L (0.2-1.3) mg/dL Total Protein 4.8 L (6.3-8.2) g/dL Albumin 2.6 L (3.5-5.0) g/dL Thrombosis Risk Factor Assmnt - DVT/VTE Prophylaxis DVT/VTE Prophylaxis: Pharmacologic Prophylaxis ordered - Choose All That Apply Any of the Below Risk Factors Present?: Yes Each Factor Represents 1 point: Age 41-60 years, Obesity (BMI >25) Other Risk Factors: Yes Each Risk Factor Represents 3 Points: Family history of DVT/PE Other congenital or acquired thrombophilia - If yes, enter type in comment: No Thrombosis Risk Factor Assessment Total Risk Factor Score: 5 Thrombosis Risk Factor Assessment Level: High Risk Assessment and Plan Assessment: Shortness of breath with vascular congestion and pulmonary edema likely due to pulmonary hypertension and possible acute CHF with diastolic dysfunction BNP 920 Elevated d-dimer 1.28. CTA showed no evidence of pulmonary embolism Recently diagnosed asthma GERD Hypertension Hyperlipidemia Osteoarthritis Lumbar pain with herniated discs Hypothyroidism Previous history of bariatric surgery Morbid obesity with BMI 59.9. Normocytic anemia hemoglobin 10.1 Mild protein calorie malnutrition albumin 2.9 DVT prophylaxis Patient will be continued on telemetry monitoring. Serial troponins are negative. Continue with IV Lasix 40 mg daily. Cardiology is on board. 2-D echo cardio was ordered. Cardiology is planning for dobutamine stress echo tomorrow. We will continue the aspirin and statins. Continue with home medications and blood sugar management. Further recommendations based on the clinical course. Time with Patient: Greater than 30
[2017-11-04 22:26] VITALS: BP 121/63; PULSE 82; RESP 16; TEMP 97.5
[2017-11-04] MEDS ORDERED: ONDANSETRON 4 MG/2 ML VIAL IVP PRN (23:20)
[2017-11-05] MEDS ORDERED: PANTOPRAZOLE 40 MG TABLET PO SCH (07:30)
[2017-11-05] MEDS: CARVEDILOL 3.125 MG TAB PO SCH (07:48)
[2017-11-05] MEDS: HEPARIN SODIUM,PORCINE 5,000 UNIT/ML 1 ML VIAL SQ SCH (07:50)
[2017-11-05] MEDS: ATORVASTATIN 10 MG TAB PO SCH (07:50)
[2017-11-05] MEDS ORDERED: OXYBUTYNIN XL 5 MG TAB.ER.24 PO SCH (08:00)
[2017-11-05] MEDS ORDERED: LEVOTHYROXINE 137 MCG TAB PO SCH (08:00)
[2017-11-05] MEDS ORDERED: DULoxetine HCL 60 MG CAPSULE.DR PO SCH (08:00)
[2017-11-05] MEDS ORDERED: CHOLECALCIFEROL 1,000 UNIT TAB PO SCH (08:00)
[2017-11-05] MEDS ORDERED: NON-FORMULARY DRUG (Omeprazole [Omeprazole] 20 MG) PO SCH (08:00)
[2017-11-05] MEDS ORDERED: MULTIVITAMINS, THERA 1 EACH TAB PO SCH (08:00)
[2017-11-05] MEDS ORDERED: ASPIRIN 325 MG TAB PO SCH (09:00)
[2017-11-05] MEDS ORDERED: FUROSEMIDE 10 MG/ML 4 ML VIAL IV SCH (09:00)
[2017-11-05] MEDS ORDERED: DOCUSATE 100 MG CAP PO SCH (09:00)
--- NOTE | 2017-11-05 23:35 | P.DS ---
Providers Date of admission: 11/04/17 00:37 Expected date of discharge: 11/05/17 Attending physician: Drake Broussard Consults: 11/04/17 00:35 Consult Physician Urgent Consulting Provider: [facility] Consult Reason/Comments: Chest pain Do you want consulting provider notified?: Yes Primary care physician: Chasidy Smyth Hospital Course: Discharge diagnosis Shortness of breath with vascular congestion and pulmonary edema likely due to pulmonary hypertension and possible acute CHF with diastolic dysfunction BNP 920 Elevated d-dimer 1.28. CTA showed no evidence of pulmonary embolism Recently diagnosed asthma GERD Hypertension Hyperlipidemia Osteoarthritis Lumbar pain with herniated discs Hypothyroidism Previous history of bariatric surgery Morbid obesity with BMI 59.9. Normocytic anemia hemoglobin 10.1 Mild protein calorie malnutrition albumin 2.9 DVT prophylaxis Hospital course Patient is a 57 old female with a known history of diabetes type 2, GERD, hyperlipidemia, hyperlipidemia, hypertension and hypothyroidism and recently diagnosed with asthma as well as morbid obesity came to ER with complaints of worsening shortness of breath for the past 3 weeks. Patient also felt chest discomfort and difficulty breathing and felt like somebody sitting on the chest. Patient was recently diagnosed with asthma and previously was started on intravenous has not patient. Otherwise patient denied any cough or sputum production.Patient states occasionally they do make her feel as though she is breathing better but she continues to have intermittent chest pain. Patient states the pain does radiate to her right shoulder. Patient denies any diaphoresis. Patient denies any nausea. Patient denies abdominal pain. Patient denies any headache patient denies numbness weakness. Patient denies lightheadedness dizziness or near syncopal episode. Chest x-ray showed mild pulmonary vascular congestion D-dimer 1.28 CT of the chest showed no evidence of pulmonary embolism. Showed vascular congestion and pulmonary edema. And pulmonary hypertension EKG showed no ST-T wave elevation. Troponin 2 negative. BNP 920 Patient interviewed and examined. Patient was continued on telemetry monitoring. Serial troponins are negative. Continued with IV Lasix 40 mg daily. Cardiology is on board. 2-D echo cardio was ordered. Cardiology is planning for dobutamine stress echo today. continue the aspirin and statins. Continue with home medications and blood sugar management. Patient wants to leave against medical advise this morning. Patient was counseled discussed with complications including . Patient does have caregiver and is agreeable for the patient to leave AGAINST MEDICAL ADVICE. Patient left AMA Patient Condition at Discharge: Critical Plan - Discharge Summary Discharge Rx Participant: No New Discharge Prescriptions: No Action rOPINIRole HCL [Requip] 3 mg PO HS@1999 rOPINIRole HCL [Requip] 2 mg PO DAILY@0700 Mirabegron [Myrbetriq] 50 mg PO DAILY@0800 Loratadine [Claritin] 10 mg PO DAILY@0800 Carvedilol [Coreg] 25 mg PO BID@08,1999 Atorvastatin [Lipitor] 10 mg PO HS@1999 Omeprazole 20 mg PO DAILY@0800 Multivitamins, Thera [Multivitamin (formulary)] 1 tab PO DAILY@0800 Divalproex Sodium [Depakote] 1,000 mg PO HS@1999 Cholecalciferol [Vitamin D3] 1,000 unit PO DAILY@0800 Ibuprofen [Motrin] 600 mg PO QID@08,12,16, Nystatin 1 applic TOPICAL HS@1999 hydrALAZINE HCL [Apresoline] 50 mg PO TID@0800,1199,1999 SILVER sulfADIAZINE Cream [Silvadene 1% Cream] 1 applic TOPICAL BID@799,1999 Levothyroxine Sodium [Synthroid] 137 mcg PO DAILY@0800 Fluconazole [Diflucan] 150 mg PO MO@0800 DULoxetine HCL [Cymbalta] 60 mg PO DAILY@0800 Albuterol Inhaler [Ventolin Hfa Inhaler] 1 - 2 puff INHALATION RT-Q4H PRN PRN Reason: Cough hydrOXYzine PAMOATE [Vistaril] 50 mg PO TID Discharge Medication List rOPINIRole HCL [Requip] 3 mg PO HS@199905/05/16 [History] rOPINIRole HCL [Requip] 2 mg PO DAILY@0700 10/30/16 [History] Mirabegron [Myrbetriq] 50 mg PO DAILY@0800 05/23/17 [History] Atorvastatin [Lipitor] 10 mg PO HS@199906/07/17 [History] Carvedilol [Coreg] 25 mg PO BID@0800,199906/07/17 [History] Cholecalciferol [Vitamin D3] 1,000 unit PO DAILY@0800 06/07/17 [History] Divalproex Sodium [Depakote] 1,000 mg PO HS@199906/07/17 [History] Loratadine [Claritin] 10 mg PO DAILY@0800 06/07/17 [History] Multivitamins, Thera [Multivitamin (formulary)] 1 tab PO DAILY@0800 06/07/17 [ History] Omeprazole 20 mg PO DAILY@0800 06/07/17 [History] Ibuprofen [Motrin] 600 mg PO QID@08,12,16,20 06/09/17 [History] DULoxetine HCL [Cymbalta] 60 mg PO DAILY@0810/20/17 [History] Fluconazole [Diflucan] 150 mg PO MO@79910/20/17 [History] Levothyroxine Sodium [Synthroid] 137 mcg PO DAILY@79910/20/17 [History] Nystatin 1 applic TOPICAL HS@199910/20/17 [History] SILVER sulfADIAZINE Cream [Silvadene 1% Cream] 1 applic TOPICAL BID@799,1999 [History] hydrALAZINE HCL [Apresoline] 50 mg PO TID@0800,1199,199910/20/17 [History] Albuterol Inhaler [Ventolin Hfa Inhaler] 1 - 2 puff INHALATION RT-Q4H PRN [History] hydrOXYzine PAMOATE [Vistaril] 50 mg PO TID 11/04/17 [History] Follow up Appointment(s)/Referral(s): Libra Umaña MD [Primary Care Provider] - 1-2 days Discharge Disposition: Left Against Medical Advice
[2017-11-11] MEDS ORDERED: FLUCONAZOLE 150 MG TAB PO SCH (08:00)
== END 2017-11-05 08:40 | disposition left against medical advice (07) | DRG 292 ==
LOC: EC 23:21 → 6SEL 11-04 00:37 → 5MS5E 11-04 21:50
PROVIDERS: ADMIT Hospitalist; ATTEND Hospitalist
DX: I11.0 Hypertensive heart disease with heart failure (principal); E44.1 Mild protein-calorie malnutrition; E11.69 Type 2 diabetes mellitus with other specified complication; J81.1 Chronic pulmonary edema; I27.20 Pulmonary hypertension, unspecified; E66.01 Morbid (severe) obesity due to excess calories; D64.9 Anemia, unspecified; I50.33 Acute on chronic diastolic (congestive) heart failure; E03.9 Hypothyroidism, unspecified; E78.5 Hyperlipidemia, unspecified; G25.81 Restless legs syndrome; I25.10 Atherosclerotic heart disease of native coronary artery without angina pectoris; J45.909 Unspecified asthma, uncomplicated; Z96.651 Presence of right artificial knee joint; K21.9 Gastro-esophageal reflux disease without esophagitis; M51.26 Other intervertebral disc displacement, lumbar region; M19.90 Unspecified osteoarthritis, unspecified site; Z79.899 Other long term (current) drug therapy; Z80.1 Family history of malignant neoplasm of trachea, bronchus and lung; Z82.49 Family history of ischemic heart disease and other diseases of the circulatory system; Z83.3 Family history of diabetes mellitus; Z98.84 Bariatric surgery status; Z79.1 Long term (current) use of non-steroidal anti-inflammatories (NSAID); Z79.890 Hormone replacement therapy; Z88.3 Allergy status to other anti-infective agents; Z88.0 Allergy status to penicillin; Z88.2 Allergy status to sulfonamides; Z88.7 Allergy status to serum and vaccine; Z88.8 Allergy status to other drugs, medicaments and biological substances
CPT/HCPCS: 36415; 71046; 71275; 80053; 82550; 82553; 83735; 83880; 84484; 85025; 85379; 85610; 85730; 93005; 93306; 96374; 96375; 99285

== ENCOUNTER 2017-11-11 17:29 | Emergency (ER) | payer MEDICARE, OTHER ==
[2017-11-11 19:11] LABS: Basophils % (A) 1 %; Eosinophils # (A) 0.2 k/uL (0-0.7); Eosinophils % (A) 3 %; HGB 10.8 gm/dL (11.4-16.0); Lymphocytes # (A) 1.4 k/uL (1.0-4.8); Lymphocytes % (A) 19 %; MCH 28.5 pg (25.0-35.0); MCHC 31.8 g/dL (31.0-37.0); MCV 89.5 fL (80.0-100.0); Mean Platelet Volume 8.5; Monocytes # (A) 0.5 k/uL (0-1.0); Monocytes % (A) 6 %; Neutrophils # (A) 5.2 k/uL (1.3-7.7); Neutrophils % (A) 69 %; Platelet Count 308 k/uL (150-450); RDW 13.6 % (11.5-15.5); WBC 7.5 k/uL (3.8-10.6)
[2017-11-11 19:26] LABS: INR 0.9 (<1.2); Partial Thromboplastin Time 22.8 sec (22.0-30.0); Prothrombin Time 9.3 sec (9.0-12.0)
[2017-11-11 19:29] LABS: ALT 23 U/L (9-52); AST 23 U/L (14-36); Albumin 3.7 g/dL (3.5-5.0); Alkaline Phosphatase 76 U/L (38-126); Anion Gap 9 mmol/L; Blood Urea Nitrogen 19 mg/dL (7-17); Calcium 9.4 mg/dL (8.4-10.2); Carbon Dioxide 28 mmol/L (22-30); Chloride 105 mmol/L (98-107); Glucose 85 mg/dL (74-99); Sodium 142 mmol/L (137-145); Total Bilirubin 0.2 mg/dL (0.2-1.3); Total Protein 6.4 g/dL (6.3-8.2)
[2017-11-11 19:34] LABS: Creatine Kinase 35 U/L (30-135)
--- NOTE | 2017-11-11 19:36 | ED ---
General Adult HPI - General Chief complaint: Shortness of Breath Stated complaint: SOB Time Seen by Provider: 11/11/17 19:26 Source: patient, RN notes reviewed Mode of arrival: ambulatory Limitations: no limitations - History of Present Illness Initial comments: 57-year-old female presents to the emergency department with a chief complaint of continued shortness of breath. She's had this for over a month. She states she's been admitted to the hospital today. Blood clot they've done an echo as if her heart. She states he wanted to stress test but she refuses to have this done because the one time. A stress test she felt like she was going to and she will not have that again. She states that they are still not found a reason that she is short of breath she still that short of breath and mild box. She states that she is here to see if maybe we figure it out. She states it is not changed for the last month it continues to be this constant shortness of breath. She denies any productive cough and high fevers with this. She denies any nausea or vomiting with this. She denies any changes in her symptoms over the last month she states it just continued to be constant. She states that she is not follow-up outpatient with cardiology and/or pulmonology. She states just comes to see us in hopes that we will figure it out.Patient denies any recent fever, chills, chest pain, back pain, abdominal pain, nausea vomiting, numbness or tingling, dysuria or hematuria, constipation or diarrhea, headaches or visual changes, or any other current symptoms. - Related Data Home Medications Medication Instructions Recorded Confirmed rOPINIRole HCL [Requip] 3 mg PO HS@199905/05/16 11/11/17 rOPINIRole HCL [Requip] 2 mg PO DAILY@0700 10/30/16 11/11/17 Mirabegron [Myrbetriq] 50 mg PO DAILY@0800 05/23/17 11/11/17 Atorvastatin [Lipitor] 10 mg PO HS@199906/07/17 11/11/17 Carvedilol [Coreg] 25 mg PO BID@0800,199906/07/17 11/11/17 Cholecalciferol [Vitamin D3] 1,000 unit PO DAILY@0800 06/07/17 11/11/17 Divalproex Sodium [Depakote] 1,000 mg PO HS@199906/07/17 11/11/17 Loratadine [Claritin] 10 mg PO DAILY@0800 06/07/17 11/11/17 Multivitamins, Thera [Multivitamin 1 tab PO DAILY@0800 06/07/17 11/11/17 (formulary)] Omeprazole 20 mg PO DAILY@0800 06/07/17 11/11/17 Ibuprofen [Motrin] 600 mg PO QID@08,12,16,06/09/17 11/11/17 DULoxetine HCL [Cymbalta] 60 mg PO DAILY@0800 10/20/17 11/11/17 Fluconazole [Diflucan] 150 mg PO MO@79910/20/17 11/11/17 Levothyroxine Sodium [Synthroid] 137 mcg PO DAILY@0800 10/20/17 11/11/17 Nystatin 1 applic TOPICAL HS@199910/20/17 11/11/17 SILVER sulfADIAZINE Cream 1 applic TOPICAL BID@799,199910/20/17 11/11/17 [Silvadene 1% Cream] hydrALAZINE HCL [Apresoline] 50 mg PO TID@0800,1199,199910/20/17 11/11/17 Albuterol Inhaler [Ventolin Hfa 1 - 2 puff INHALATION RT-Q4H PRN 10/24/17 Inhaler] hydrOXYzine PAMOATE 25 mg PO TID 11/11/17 11/11/17 Allergies Allergy/AdvReac Type Severity Reaction Status Date / Time buspirone [From BuSpar] Allergy Unknown Verified 11/11/17 20:18 haloperidol [From Haldol] Allergy Swelling Verified 11/11/17 20:18 iodine Allergy Swelling Verified 11/11/17 20:18 Penicillins Allergy Swelling Verified 11/11/17 20:18 prochlorperazine Allergy Rash/Hives Verified 11/11/17 20:18 Sulfa (Sulfonamide Allergy Rash/Hives Verified 11/11/17 20:18 Antibiotics) Tetanus Vaccines and Toxoid Allergy Rash/Hives Verified 11/11/17 20:18 [Tetanus Vaccines & Toxoid] trifluoperazine HCl Allergy Unknown Verified 11/11/17 20:18 [From Stelazine] Review of Systems ROS Statement: Those systems with pertinent positive or pertinent negative responses have been documented in the HPI. ROS Other: All systems not noted in ROS Statement are negative. Past Medical History Past Medical History: Asthma, Diabetes Mellitus, GERD/Reflux, Hyperlipidemia, Hypertension, Musculoskeletal Disorder, Osteoarthritis (OA), Thyroid Disorder Additional Past Medical History / Comment(s): Recently diagnosed with asthma and recently treated for bronchitis with antibiotic, diet controlled diabetes, morbid obesity, hypothyroid, UTI, RLS, anemia, lumbar pain with herniated discs. History of Any Multi-Drug Resistant Organisms: None Reported Past Surgical History: Bariatric Surgery, Hernia Repair, Orthopedic Surgery Additional Past Surgical History / Comment(s): Total Right knee replacement, 3 abdominal hernia repairs, left hip repair Past Anesthesia/Blood Transfusion Reactions: No Reported Reaction Past Psychological History: Anxiety, Bipolar, Depression Smoking Status: Never smoker Past Alcohol Use History: None Reported Past Drug Use History: None Reported - Past Family History Mother Family Medical History: Cancer Additional Family Medical History / Comment(s): lung cancer Father Additional Family Medical History / Comment(s): "my dad from a blood clot that traveled from his leg to his lung and also caused a heart attack." Brother(s) Family Medical History: Diabetes Mellitus Sister(s) Additional Family Medical History / Comment(s): "her heart races too fast" General Exam Limitations: no limitations General appearance: alert, in no apparent distress Neck exam: Present: normal inspection. Absent: tenderness, meningismus, lymphadenopathy Respiratory exam: Present: normal lung sounds bilaterally. Absent: respiratory distress, wheezes, rales, rhonchi, stridor Cardiovascular Exam: Present: regular rate, normal rhythm, normal heart sounds. Absent: systolic murmur, diastolic murmur, rubs, gallop, clicks Neurological exam: Present: alert, oriented X3 Psychiatric exam: Present: normal affect, normal mood Skin exam: Present: warm, dry, intact, normal color. Absent: rash Course Vital Signs 11/11/17 11/11/17 18:36 19:55 Temperature 97.0 F L 98.4 F Pulse Rate 94 78 Respiratory 20 18 Rate Blood Pressure 109/59 138/71 O2 Sat by Pulse 97 98 Oximetry EKG Findings - EKG Comments: EKG Findings:: normal sinus rhythm 69 bpm, normal axis, no atopy, no S-T depressions or elevations, Medical Decision Making - Medical Decision Making 57-year-old female presents emergency department with a chief complaint of continued shortness of breath. This time patient's previous admission was reviewed and she did leave prior to the stress test she did not want to have it done. She states that she sees a wooling machine operator regular outpatient landed see him about a month ago. She's has been having the same symptoms for over a month. At this time we discussed that they didn't want to do a stress test on her to continue to further work this. However her cardiac enzymes are negative today. Chest x-rays reviewed with no acute process. At this time we discussed the importance of having this test and she states that she does not want to have this here she got into it out patiently and she would like to follow-up. She states that she feels better knowing that there is nothing acute going on and she would rather go home and follow-up. We did give her her wooling machine operator information who is Dr. Lenz as well as the anatomy and physiology instructor information for continued shortness of breath has been going on over a month. We did discuss return parameters and follow-up. Patient stated that she understood she is on a stay she like to go home and she will follow up outpatient follow up. - Lab Data Result diagrams: 11/11/17 18:53 11/11/17 18:53 Lab Results 11/11/17 11/11/17 11/11/17 Range/Units 18:53 18:53 18:53 WBC 7.5 (3.8-10.6) k/uL RBC 3.80 (3.80-5.40) m/uL Hgb 10.8 L (11.4-16.0) gm/dL Hct 34.0 (34.0-46.0) % MCV 89.5 (80.0-100.0) fL MCH 28.5 (25.0-35.0) pg MCHC 31.8 (31.0-37.0) g/dL RDW 13.6 (11.5-15.5) % Plt Count 308 (150-450) k/uL Neutrophils % 69 % Lymphocytes % 19 % Monocytes % 6 % Eosinophils % 3 % Basophils % 1 % Neutrophils # 5.2 (1.3-7.7) k/uL Lymphocytes # 1.4 (1.0-4.8) k/uL Monocytes # 0.5 (0-1.0) k/uL Eosinophils # 0.2 (0-0.7) k/uL Basophils # 0.0 (0-0.2) k/uL PT (9.0-12.0) sec INR (<1.2) APTT (22.0-30.0) sec Sodium 142 (137-145) mmol/L Potassium 5.0 (3.5-5.1) mmol/L Chloride 105 (98-107) mmol/L Carbon Dioxide 28 (22-30) mmol/L Anion Gap 9 mmol/L BUN 19 H (7-17) mg/dL Creatinine 0.70 (0.52-1.04) mg/dL Est GFR (CKD-EPI)AfAm >90 (>60 ml/min/1.73 sqM) Est GFR (CKD-EPI)NonAf >90 (>60 ml/min/1.73 sqM) Glucose 85 (74-99) mg/dL Calcium 9.4 (8.4-10.2) mg/dL Total Bilirubin 0.2 (0.2-1.3) mg/dL AST 23 (14-36) U/L ALT 23 (9-52) U/L Alkaline Phosphatase 76 (38-126) U/L Total Creatine Kinase 35 (30-135) U/L CK-MB (CK-2) 0.6 (0.0-2.4) ng/mL CK-MB (CK-2) Rel Index 1.7 Troponin I <0.012 (0.000-0.034) ng/mL NT-Pro-B Natriuret Pep pg/mL Total Protein 6.4 (6.3-8.2) g/dL Albumin 3.7 (3.5-5.0) g/dL 11/11/17 11/11/17 Range/Units 18:53 18:53 WBC (3.8-10.6) k/uL RBC (3.80-5.40) m/uL Hgb (11.4-16.0) gm/dL Hct (34.0-46.0) % MCV (80.0-100.0) fL MCH (25.0-35.0) pg MCHC (31.0-37.0) g/dL RDW (11.5-15.5) % Plt Count (150-450) k/uL Neutrophils % % Lymphocytes % % Monocytes % % Eosinophils % % Basophils % % Neutrophils # (1.3-7.7) k/uL Lymphocytes # (1.0-4.8) k/uL Monocytes # (0-1.0) k/uL Eosinophils # (0-0.7) k/uL Basophils # (0-0.2) k/uL PT 9.3 (9.0-12.0) sec INR 0.9 (<1.2) APTT 22.8 (22.0-30.0) sec Sodium (137-145) mmol/L Potassium (3.5-5.1) mmol/L Chloride (98-107) mmol/L Carbon Dioxide (22-30) mmol/L Anion Gap mmol/L BUN (7-17) mg/dL Creatinine (0.52-1.04) mg/dL Est GFR (CKD-EPI)AfAm (>60 ml/min/1.73 sqM) Est GFR (CKD-EPI)NonAf (>60 ml/min/1.73 sqM) Glucose (74-99) mg/dL Calcium (8.4-10.2) mg/dL Total Bilirubin (0.2-1.3) mg/dL AST (14-36) U/L ALT (9-52) U/L Alkaline Phosphatase (38-126) U/L Total Creatine Kinase (30-135) U/L CK-MB (CK-2) (0.0-2.4) ng/mL CK-MB (CK-2) Rel Index Troponin I (0.000-0.034) ng/mL NT-Pro-B Natriuret Pep 658 pg/mL Total Protein (6.3-8.2) g/dL Albumin (3.5-5.0) g/dL - Radiology Data Radiology results: report reviewed, image reviewed Disposition Clinical Impression: SOB (shortness of breath) Disposition: HOME SELF-CARE Condition: Stable Instructions: Dyspnea (ED) Additional Instructions: Please use medication as discussed. Please follow up with family doctor if symptoms have not improved over the next two days. Please return to the emergency room if your symptoms increase or worsen or for any other concerns. Referrals: Libra Umaña MD [Primary Care Provider] - 1-2 days Quique Lenz MD [STAFF PHYSICIAN] - 1-2 days Chinyere Means MD [STAFF PHYSICIAN] - 1-2 days Time of Disposition: 20:24
[2017-11-11 19:47] LABS: Creatine Kinase MB 0.6 ng/mL (0.0-2.4); Troponin I <0.012 ng/mL (0.000-0.034)
--- NOTE | 2017-11-11 19:50 | XR ---
EXAMINATION TYPE: XR chest 2V DATE OF EXAM: 11/11/2017 COMPARISON: 11/04/2017 HISTORY: Cough and short of breath TECHNIQUE: Frontal and lateral views of the chest are obtained. FINDINGS: There is no heart failure nor confluent pneumonic infiltrate. Costophrenic angles are marylou r. Heart size is normal. Bony thorax is intact. IMPRESSION: No active cardiopulmonary disease. No change.
[2017-11-11 19:58] VITALS: BP 138/71; PULSE 78; RESP 18; TEMP 98.4
== END 2017-11-11 20:46 | disposition home or self-care (01) ==
LOC: EC 17:29
DX: R06.02 Shortness of breath (principal); J45.909 Unspecified asthma, uncomplicated; K21.9 Gastro-esophageal reflux disease without esophagitis; E78.5 Hyperlipidemia, unspecified; I10 Essential (primary) hypertension; M19.90 Unspecified osteoarthritis, unspecified site; E66.01 Morbid (severe) obesity due to excess calories; Z68.44 Body mass index [BMI] 60.0-69.9, adult; E03.9 Hypothyroidism, unspecified; G25.81 Restless legs syndrome; F41.9 Anxiety disorder, unspecified; F32.9 Major depressive disorder, single episode, unspecified; Z79.02 Long term (current) use of antithrombotics/antiplatelets; Z79.1 Long term (current) use of non-steroidal anti-inflammatories (NSAID); Z79.899 Other long term (current) drug therapy; Z88.8 Allergy status to other drugs, medicaments and biological substances; Z91.048 Other nonmedicinal substance allergy status; Z88.0 Allergy status to penicillin; Z88.2 Allergy status to sulfonamides; Z88.7 Allergy status to serum and vaccine
CPT/HCPCS: 36415; 71046; 80053; 82550; 82553; 83880; 84484; 85025; 85610; 85730; 93005; 99285

== ENCOUNTER 2017-11-16 16:51 | Inpatient (IN) | payer MEDICARE, OTHER ==
--- NOTE | 2017-11-16 17:33 | ED ---
General Adult HPI - General Chief complaint: Chest Pain Stated complaint: Diff Breathing Time Seen by Provider: 11/16/17 17:23 Source: patient, RN notes reviewed Mode of arrival: ambulatory Limitations: no limitations - History of Present Illness Initial comments: 57-year-old female presents to the emergency department with a chief complaint of increased shortness of breath and chest pain. She's been struggling with shortness of breath and on and off chest pain for the last so. She states however over the last today she feels more heaviness on the chest and more shortness of breath. She saw her doctor and he started her on steroids antibiotics that she feels as if she is just getting worse. She denies any nausea or vomiting with this. She states difficult to get a deep breath. She states that her pain is mostly heaviness. She denies any nausea vomiting. When she was admitted they didn't want a stress test which she refused at that time. Patient denies any recent fever, chills, back pain, abdominal pain, nausea vomiting, numbness or tingling, dysuria or hematuria, constipation or diarrhea, headaches or visual changes, or any other current symptoms. - Related Data Home Medications Medication Instructions Recorded Confirmed rOPINIRole HCL [Requip] 3 mg PO HS@199905/05/16 11/16/17 rOPINIRole HCL [Requip] 2 mg PO DAILY@0700 10/30/16 11/16/17 Mirabegron [Myrbetriq] 50 mg PO DAILY@0800 05/23/17 11/16/17 Atorvastatin [Lipitor] 10 mg PO HS@199906/07/17 11/16/17 Carvedilol [Coreg] 25 mg PO BID@0800,199906/07/17 11/16/17 Cholecalciferol [Vitamin D3] 1,000 unit PO DAILY@0800 06/07/17 11/16/17 Divalproex Sodium [Depakote] 1,000 mg PO HS@199906/07/17 11/16/17 Loratadine [Claritin] 10 mg PO DAILY@0800 06/07/17 11/16/17 Multivitamins, Thera [Multivitamin 1 tab PO DAILY@0800 06/07/17 11/16/17 (formulary)] Omeprazole 20 mg PO DAILY@0800 06/07/17 11/16/17 Ibuprofen [Motrin] 600 mg PO QID@08,12,16,20 06/09/17 11/16/17 DULoxetine HCL [Cymbalta] 60 mg PO DAILY@0800 10/20/17 11/16/17 Fluconazole [Diflucan] 150 mg PO MO@0800 10/20/17 11/16/17 Levothyroxine Sodium [Synthroid] 137 mcg PO DAILY@0800 10/20/17 11/16/17 Nystatin 1 applic TOPICAL HS@199910/20/17 11/16/17 SILVER sulfADIAZINE Cream 1 applic TOPICAL BID@0800,199910/20/17 11/16/17 [Silvadene 1% Cream] hydrALAZINE HCL [Apresoline] 50 mg PO TID@0800,1200,199910/20/17 11/16/17 Albuterol Inhaler [Ventolin Hfa 1 - 2 puff INHALATION RT-Q4H PRN 10/24/17 Inhaler] hydrOXYzine PAMOATE 25 mg PO TID 11/11/17 11/16/17 Levofloxacin [Levaquin] 500 mg PO DAILY 11/16/17 11/16/17 Montelukast Sodium [Singulair] 10 mg PO DAILY 11/16/17 11/16/17 methylPREDNISolone [Medrol Dose See Taper PO DIRECTED 11/16/17 11/16/17 Pack] Allergies Allergy/AdvReac Type Severity Reaction Status Date / Time buspirone [From BuSpar] Allergy Unknown Verified 11/16/17 17:27 haloperidol [From Haldol] Allergy Swelling Verified 11/16/17 17:27 iodine Allergy Swelling Verified 11/16/17 17:27 Penicillins Allergy Swelling Verified 11/16/17 17:27 prochlorperazine Allergy Rash/Hives Verified 11/16/17 17:27 Sulfa (Sulfonamide Allergy Rash/Hives Verified 11/16/17 17:27 Antibiotics) Tetanus Vaccines and Toxoid Allergy Rash/Hives Verified 11/16/17 17:27 [Tetanus Vaccines & Toxoid] trifluoperazine HCl Allergy Unknown Verified 11/16/17 17:27 [From Stelazine] Review of Systems ROS Statement: Those systems with pertinent positive or pertinent negative responses have been documented in the HPI. ROS Other: All systems not noted in ROS Statement are negative. Past Medical History Past Medical History: Asthma, Diabetes Mellitus, GERD/Reflux, Hyperlipidemia, Hypertension, Musculoskeletal Disorder, Osteoarthritis (OA), Thyroid Disorder Additional Past Medical History / Comment(s): Recently diagnosed with asthma and recently treated for bronchitis with antibiotic, diet controlled diabetes, morbid obesity, hypothyroid, UTI, RLS, anemia, lumbar pain with herniated discs. History of Any Multi-Drug Resistant Organisms: None Reported Past Surgical History: Bariatric Surgery, Hernia Repair, Orthopedic Surgery Additional Past Surgical History / Comment(s): Total Right knee replacement, 3 abdominal hernia repairs, left hip repair Past Anesthesia/Blood Transfusion Reactions: No Reported Reaction Past Psychological History: Anxiety, Bipolar, Depression Smoking Status: Never smoker Past Alcohol Use History: None Reported Past Drug Use History: None Reported - Past Family History Mother Family Medical History: Cancer Additional Family Medical History / Comment(s): lung cancer Father Additional Family Medical History / Comment(s): "my dad from a blood clot that traveled from his leg to his lung and also caused a heart attack." Brother(s) Family Medical History: Diabetes Mellitus Sister(s) Additional Family Medical History / Comment(s): "her heart races too fast" General Exam - General Exam Comments Initial Comments: General: The patient is awake and alert, in no distress, and does not appear acutely ill. Eye: Pupils are equal, round and reactive to light, extra-ocular movements are intact; there is normal conjunctiva bilaterally. No signs of icterus. Ears, nose, mouth and throat: There are moist mucous membranes. Cardiovascular: There is a regular rate and rhythm. No murmur, rub or gallop is appreciated. Respiratory: Lungs are clear to auscultation, respirations are non-labored, breath sounds are equal. No wheezes, stridor, rales, or rhonchi. Gastrointestinal: Soft, non-distended, non-tender abdomen without masses or organomegaly noted. There is no rebound or guarding present. No CVA tenderness. Bowel sounds are unremarkable. Back: There is no tenderness to palpation in the midline. There is no obvious deformity. No rashes noted. Musculoskeletal: Normal ROM, no tenderness, There is no pedal edema. There is no calf tenderness or swelling. Sensation intact. Pulses equal bilaterally 2+. Neurological: CN II-XII intact, There are no obvious motor or sensory deficits. Coordination appears grossly intact. Speech is normal. Skin: Skin is warm and dry and no rashes or lesions are noted. Psychiatric: Cooperative, appropriate mood & affect, normal judgment. Limitations: no limitations Course Vital Signs 11/16/17 11/16/17 11/16/17 17:13 17:59 19:12 Temperature 98 F Pulse Rate 111 H 85 92 Respiratory 20 16 16 Rate Blood Pressure 172/88 138/80 158/74 O2 Sat by Pulse 99 97 Oximetry EKG Findings - EKG Comments: EKG Findings:: normal sinus rhythm 93 bpm, normal axis, no atopy, no S-T depressions or elevations, Medical Decision Making - Medical Decision Making 57-year-old female presents to the emergency department with a chief complaint of chest pain and shortness of breath. At this time patient's CT is suboptimal. At this time we did discuss that we will order a V/Q patient was placed on heparin precautionary. We will also rule out patient's troponin levels. We will also start the patient on breathing treatments here and continue her antibiotics from home. At this time case was discussed with the [employer] for one who does agree to the admission. - Lab Data Result diagrams: 11/16/17 17:50 11/16/17 17:50 Lab Results 11/16/17 11/16/17 11/16/17 Range/Units 17:50 17:50 17:50 WBC 8.7 (3.8-10.6) k/uL RBC 4.05 (3.80-5.40) m/uL Hgb 11.4 (11.4-16.0) gm/dL Hct 35.8 (34.0-46.0) % MCV 88.4 (80.0-100.0) fL MCH 28.1 (25.0-35.0) pg MCHC 31.8 (31.0-37.0) g/dL RDW 13.5 (11.5-15.5) % Plt Count 333 (150-450) k/uL Neutrophils % 68 % Lymphocytes % 22 % Monocytes % 7 % Eosinophils % 1 % Basophils % 1 % Neutrophils # 5.9 (1.3-7.7) k/uL Lymphocytes # 1.9 (1.0-4.8) k/uL Monocytes # 0.7 (0-1.0) k/uL Eosinophils # 0.1 (0-0.7) k/uL Basophils # 0.0 (0-0.2) k/uL PT (9.0-12.0) sec INR (<1.2) APTT (22.0-30.0) sec D-Dimer (<0.60) mg/L FEU Sodium 142 (137-145) mmol/L Potassium 4.3 (3.5-5.1) mmol/L Chloride 104 (98-107) mmol/L Carbon Dioxide 27 (22-30) mmol/L Anion Gap 11 mmol/L BUN 25 H (7-17) mg/dL Creatinine 0.84 (0.52-1.04) mg/dL Est GFR (CKD-EPI)AfAm 90 (>60 ml/min/1.73 sqM) Est GFR (CKD-EPI)NonAf 78 (>60 ml/min/1.73 sqM) Glucose 81 (74-99) mg/dL Calcium 9.7 (8.4-10.2) mg/dL Magnesium 1.7 (1.6-2.3) mg/dL Total Bilirubin 0.3 (0.2-1.3) mg/dL AST 24 (14-36) U/L ALT 30 (9-52) U/L Alkaline Phosphatase 69 (38-126) U/L Total Creatine Kinase 45 (30-135) U/L CK-MB (CK-2) 0.9 (0.0-2.4) ng/mL CK-MB (CK-2) Rel Index 2.0 Troponin I <0.012 (0.000-0.034) ng/mL Total Protein 6.9 (6.3-8.2) g/dL Albumin 4.1 (3.5-5.0) g/dL //18 Range/Units 17:50 WBC (3.8-10.6) k/uL RBC (3.80-5.40) m/uL Hgb (11.4-16.0) gm/dL Hct (34.0-46.0) % MCV (80.0-100.0) fL MCH (25.0-35.0) pg MCHC (31.0-37.0) g/dL RDW (11.5-15.5) % Plt Count (150-450) k/uL Neutrophils % % Lymphocytes % % Monocytes % % Eosinophils % % Basophils % % Neutrophils # (1.3-7.7) k/uL Lymphocytes # (1.0-4.8) k/uL Monocytes # (0-1.0) k/uL Eosinophils # (0-0.7) k/uL Basophils # (0-0.2) k/uL PT 10.1 (9.0-12.0) sec INR 1.0 (<1.2) APTT 22.8 (22.0-30.0) sec D-Dimer 0.72 H (<0.60) mg/L FEU Sodium (137-145) mmol/L Potassium (3.5-5.1) mmol/L Chloride (98-107) mmol/L Carbon Dioxide (22-30) mmol/L Anion Gap mmol/L BUN (7-17) mg/dL Creatinine (0.52-1.04) mg/dL Est GFR (CKD-EPI)AfAm (>60 ml/min/1.73 sqM) Est GFR (CKD-EPI)NonAf (>60 ml/min/1.73 sqM) Glucose (74-99) mg/dL Calcium (8.4-10.2) mg/dL Magnesium (1.6-2.3) mg/dL Total Bilirubin (0.2-1.3) mg/dL AST (14-36) U/L ALT (9-52) U/L Alkaline Phosphatase (38-126) U/L Total Creatine Kinase (30-135) U/L CK-MB (CK-2) (0.0-2.4) ng/mL CK-MB (CK-2) Rel Index Troponin I (0.000-0.034) ng/mL Total Protein (6.3-8.2) g/dL Albumin (3.5-5.0) g/dL - Radiology Data Radiology results: report reviewed, image reviewed Disposition Clinical Impression: Unstable angina, SOB (shortness of breath), Acute bronchitis Disposition: ADMITTED IP TO THIS [facility] Condition: Stable Referrals: Libra Umaña MD [Primary Care Provider] - 1-2 days Decision Date: 11/16/17 Decision Time: 20:27
[2017-11-16 17:58] LABS: Basophils % (A) 1 %; Eosinophils # (A) 0.1 k/uL (0-0.7); Eosinophils % (A) 1 %; HCT 35.8 % (34.0-46.0); HGB 11.4 gm/dL (11.4-16.0); Lymphocytes # (A) 1.9 k/uL (1.0-4.8); Lymphocytes % (A) 22 %; MCH 28.1 pg (25.0-35.0); MCHC 31.8 g/dL (31.0-37.0); MCV 88.4 fL (80.0-100.0); Mean Platelet Volume 8.9; Monocytes # (A) 0.7 k/uL (0-1.0); Monocytes % (A) 7 %; Neutrophils # (A) 5.9 k/uL (1.3-7.7); Neutrophils % (A) 68 %; Platelet Count 333 k/uL (150-450); RBC 4.05 m/uL (3.80-5.40); RDW 13.5 % (11.5-15.5); WBC 8.7 k/uL (3.8-10.6)
[2017-11-16 18:06] LABS: D-Dimer 0.72 mg/L FEU (<0.60)
[2017-11-16 18:10] LABS: Prothrombin Time 10.1 sec (9.0-12.0)
[2017-11-16 18:13] LABS: Albumin 4.1 g/dL (3.5-5.0); Calcium 9.7 mg/dL (8.4-10.2); Creatine Kinase 45 U/L (30-135); Magnesium 1.7 mg/dL (1.6-2.3); Potassium 4.3 mmol/L (3.5-5.1); Total Bilirubin 0.3 mg/dL (0.2-1.3); Total Protein 6.9 g/dL (6.3-8.2)
[2017-11-16 18:17] LABS: Partial Thromboplastin Time 22.8 sec (22.0-30.0)
[2017-11-16] MEDS ORDERED: diphenhydrAMINE 50 MG/ML 1 ML VIAL IVP STA (18:20)
[2017-11-16] MEDS ORDERED: RX INFO: IV CONTRAST WAS GIVEN 1 EACH MISC MISCELLANE PRN (18:20)
[2017-11-16] MEDS ORDERED: FAMOTIDINE 20 MG/2 ML VIAL IV STA (18:20)
[2017-11-16] MEDS ORDERED: methylPREDNISolone SOD SUCCI 125 MG/2 ML VIAL IV STA (18:20)
[2017-11-16 18:24] LABS: Creatine Kinase MB 0.9 ng/mL (0.0-2.4); Troponin I <0.012 ng/mL (0.000-0.034)
--- NOTE | 2017-11-16 20:06 | CT ---
EXAMINATION TYPE: CT angio chest DATE OF EXAM: 11/16/2017 7:53 PM COMPARISON: NONE HISTORY: Shortness of breath. CT DLP: 846.4 mGycm Automated exposure control for dose reduction was used. CONTRAST: CTA scan of the thorax is performed with IV Contrast, patient injected with 100 mL of Omnipaque 350, pulmonary embolism protocol. MIP and 3-D images were created at a separate workstation.. FINDINGS: Due to patient habitus this examination is suboptimal. There is inadequate opacification of the pulmo nary arteries with the contrast bolus. Mild dependent changes are noted at both lung bases. No pleura l pericardial effusion is identified. Breathing motion artifact makes examination of lung parenchyma suboptimal. Visualized upper abdomen demonstrates no significant findings. IMPRESSION: SEVERELY SUBOPTIMAL EXAMINATION.
[2017-11-16] MEDS ORDERED: HEPARIN SODIUM,PORCINE 5,000 UNIT/ML 1 ML VIAL IV PRN (20:18)
[2017-11-16] MEDS ORDERED: HEPARIN SODIUM,PORCINE 5,000 UNIT/ML 1 ML VIAL IV ONE (20:18)
[2017-11-16] MEDS ORDERED: NITROGLYCERIN SL TABS 0.4 MG TAB SUBLINGUAL PRN (20:19)
[2017-11-16] MEDS ORDERED: ASPIRIN 81 MG PO STA (20:19)
[2017-11-16] MEDS ORDERED: ALBUTEROL INHALER 60 PUFF/8 GM INHALER INHALATION PRN (20:20)
[2017-11-16] MEDS: HEPARIN SOD,PORK IN 0.45% NACL 25,000 UNIT in 0.45% NACL 1 500ML.BAG IV SCH (20:55)
[2017-11-17] MEDS ORDERED: IPRATROPIUM-ALBUTEROL 3 ML NEB INHALATION SCH
--- NOTE | 2017-11-17 00:32 | NM ---
EXAMINATION TYPE: NM pul vent and perfuse DATE OF EXAM: 11/17/2017 COMPARISON: NONE HISTORY: Elevated d-dimer. Chest pain. TECHNIQUE: Utilizing inhalation of 36.3 mCi Tc 99m DTPA aerosol and intravenous injection of 5.5 mCi of Tc 99m MAA, ventilation and perfusion images are acquired post injection in multiple projections. FINDINGS: There is a small matched defects in the periphery of the right lung. On the left side there is a large area of decreased perfusion involving the left mid and upper lung f ield in the left upper lobe which shows more normal ventilation. The remainder of exam is unremarkabl e. I have no recent chest x-ray to compare. IMPRESSION: There are segmental sized ventilation perfusion mismatches involving the left upper lobe best seen on the posterior and LPO views. This corresponds to a high probability of pulmonary embolism. Recommend correlation with a new chest x-ray examination.
[2017-11-17] MEDS ORDERED: IBUPROFEN 600 MG TAB PO ONE (00:56)
[2017-11-17] MEDS: hydrOXYzine PAMOATE 25 MG CAP PO SCH ×4 (01:00→21:38)
[2017-11-17 01:09] LABS: Creatine Kinase 37 U/L (30-135)
[2017-11-17 01:22] LABS: Creatine Kinase MB 0.9 ng/mL (0.0-2.4); Troponin I <0.012 ng/mL (0.000-0.034)
[2017-11-17 01:56] VITALS: BMI 61.5
[2017-11-17] MEDS: methylPREDNISolone SOD SUCCI 40 MG/ML 1 ML VIAL IV SCH ×2 (02:01→08:49)
[2017-11-17 04:33] LABS: Cholesterol 197 mg/dL (<200); HDL Cholesterol 82 mg/dL (40-60); LDL Cholesterol,Calculated 97 mg/dL (0-99); Triglycerides 92 mg/dL (<150)
[2017-11-17 04:47] LABS: Creatine Kinase 36 U/L (30-135)
[2017-11-17 05:00] LABS: Creatine Kinase MB 1.1 ng/mL (0.0-2.4); Troponin I <0.012 ng/mL (0.000-0.034)
[2017-11-17] MEDS: IPRATROPIUM-ALBUTEROL 3 ML NEB INHALATION PRN ×3 (08:08→19:57)
[2017-11-17] MEDS: MONTELUKAST 10 MG TAB PO SCH (08:48)
[2017-11-17] MEDS: hydrALAZINE HCL 50 MG TAB PO SCH ×3 (08:48→21:35)
[2017-11-17] MEDS: PANTOPRAZOLE 40 MG TABLET PO SCH (08:49)
[2017-11-17] MEDS: CARVEDILOL 12.5 MG TAB PO SCH ×2 (08:49→21:36)
[2017-11-17] MEDS: DULoxetine HCL 60 MG CAPSULE.DR PO SCH (08:49)
[2017-11-17] MEDS: CHOLECALCIFEROL 1,000 UNIT TAB PO SCH (08:49)
[2017-11-17] MEDS: LEVOTHYROXINE 137 MCG TAB PO SCH (08:49)
[2017-11-17] MEDS: MULTIVITAMINS, THERA 1 EACH TAB PO SCH (08:49)
[2017-11-17] MEDS ORDERED: ASPIRIN 325 MG TAB PO SCH ×2 (09:00→13:31)
[2017-11-17] MEDS ORDERED: LEVOFLOXACIN 500 MG TAB PO SCH (09:00)
[2017-11-17] MEDS: HEPARIN SOD,PORK IN 0.45% NACL 25,000 UNIT in 0.45% NACL 1 500ML.BAG IV SCH ×2 (09:17→22:04)
[2017-11-17] MEDS: IBUPROFEN 600 MG TAB PO SCH ×4 (09:18→21:34)
[2017-11-17] MEDS: LORATADINE 10 MG TAB PO SCH (09:18)
[2017-11-17] MEDS: Mirabegron [Myrbetriq] 50 MG PO SCH (11:24)
--- NOTE | 2017-11-17 13:31 | P.CRDCN ---
History of Present Illness Consult date: 11/17/17 History of present illness: Mrs. Lerner is a pleasant 57 showed female past medical history significant for diabetes mellitus, dyslipidemia, hypertension, asthma, anxiety and morbid obesity. She denies history of coronary artery disease. She follows regularly with Dr. Lenz as an outpatient. She presents to the hospital with complaints of chest pain and shortness of breath. She states her shortness of breath has been getting progressively worse over the previous month or so she has been seems to come after she is exerting herself and is associated with shortness of breath. The pain is described as a tight sensation with activity. The time she gets chest pain lasts approximately 20- 30 minutes with no specific alleviating factors. The pain is worse with movement and worse when she takes a deep breath. It is associated with nausea and palpitations. She denies dizziness, diaphoresis, vomiting, PND or orthopnea. VQ scan was done on admission secondary to suboptimal CT angios revealed a perfusion mismatch involving the left upper lobe corresponding to a high probability of pulmonary embolism. EKG on arrival reveals sinus mechanism no acute ST or T-wave abnormalities. Laboratory data reviewed, hemoglobin 11.4, platelets 333, d-dimer 0.72, potassium 4.3, magnesium 1.7, cardiac enzymes negative 3. Most recent echocardiogram performed 11/04/2017 reveals preserved left ventricular systolic function with ejection fraction 55-60%, mild aortic stenosis with a peak/mean gradient of 25.12/15.0 mmHg, trace to mild MR and trace TR, mild pulmonary hypertension with an RVSP of 41 mmHg. Current cardiac medications include atorvastatin 10 mg daily, hydralazine 50 mg 3 times a day, carvedilol 25 mg twice a day. Review of Systems At the time of my exam: CONSTITUTIONAL: Denies fever. Denies chills. EYES: Denies blurred vision. Denies vision changes. Denies eye pain. EARS, NOSE, MOUTH & THROAT: Denies headache. Denies sore throat. Denies ear pain. CARDIOVASCULAR: Denies chest pain. Complains of shortness of breath. Denies orthopnea. Denies PND. Denies palpitations. RESPIRATORY: Denies cough. GASTROINTESTINAL: Denies abdominal pain. Denies diarrhea. Denies constipation. Denies nausea. Denies vomiting. MUSCULOSKELETAL: Denies myalgias. INTEGUMENTARY: Denies pruitis. Denies rash. NEUROLOGIC: Denies numbness. Denies tingling. Denies weakness. PSYCHIATRIC: Denies anxiety. Denies depression. ENDOCRINE: Denies fatigue. Denies weight change. Denies polydipsia. Denies polyurina. GENITOURINARY: Denies burning, hematuria or urgency with micturation. HEMATOLOGIC: Denies history of anemia. Denies bleeding. Past Medical History Past Medical History: Asthma, Diabetes Mellitus, GERD/Reflux, Hyperlipidemia, Hypertension, Musculoskeletal Disorder, Osteoarthritis (OA), Thyroid Disorder Additional Past Medical History / Comment(s): Recently diagnosed with asthma and recently treated for bronchitis with antibiotic, diet controlled diabetes, morbid obesity, hypothyroid, UTI, RLS, anemia, lumbar pain with herniated discs. History of Any Multi-Drug Resistant Organisms: None Reported Past Surgical History: Bariatric Surgery, Hernia Repair, Orthopedic Surgery Additional Past Surgical History / Comment(s): Total Right knee replacement, 3 abdominal hernia repairs, left hip repair Past Anesthesia/Blood Transfusion Reactions: No Reported Reaction Past Psychological History: Anxiety, Bipolar, Depression Additional Psychological History / Comment(s): Borderline personality disorder. Pt states her mental health is stable at this time. She states she sees a psychiatrist at [facility] and has a transplant case manager there. Pt has a legal gaurdian, Hang Mariselakaidenmiguelangel. Pt states she currently resides at [facility] but she and a friend are in the process of relocating to independent living and legal borges is in aggreement with this plan. She cannot drive, she either takes the bus to [employer] or legal [employer]ian drives her to [facility]. She uses a cane or a walker to ambulate. She has a glucometer but no longer has to monitor her blood sugars. She has in the past had suicidal thoughts and plan and also homicidal thoughts but denies these being a current problem. Smoking Status: Never smoker Past Alcohol Use History: None Reported Past Drug Use History: None Reported - Past Family History Mother Family Medical History: Cancer Additional Family Medical History / Comment(s): lung cancer Father Additional Family Medical History / Comment(s): "my dad from a blood clot that traveled from his leg to his lung and also caused a heart attack." Brother(s) Family Medical History: Diabetes Mellitus Sister(s) Additional Family Medical History / Comment(s): "her heart races too fast" Medications and Allergies Home Medications Medication Instructions Recorded Confirmed Type rOPINIRole HCL [Requip] 3 mg PO HS@199905/05/16 11/16/17 History rOPINIRole HCL [Requip] 2 mg PO DAILY@0700 10/30/16 11/16/17 History Mirabegron [Myrbetriq] 50 mg PO DAILY@0800 05/23/17 11/16/17 History Atorvastatin [Lipitor] 10 mg PO HS@199906/07/17 11/16/17 History Carvedilol [Coreg] 25 mg PO BID@08,199906/07/17 11/16/17 History Cholecalciferol [Vitamin D3] 1,000 unit PO DAILY@0800 06/07/17 11/16/17 History Divalproex Sodium [Depakote] 1,000 mg PO HS@199906/07/17 11/16/17 History Loratadine [Claritin] 10 mg PO DAILY@0800 06/07/17 11/16/17 History Multivitamins, Thera [Multivitamin 1 tab PO DAILY@0800 06/07/17 11/16/17 History (formulary)] Omeprazole 20 mg PO DAILY@0800 06/07/17 11/16/17 History Ibuprofen [Motrin] 600 mg PO QID@08,12,16,20 06/09/17 11/16/17 History DULoxetine HCL [Cymbalta] 60 mg PO DAILY@0800 10/20/17 11/16/17 History Fluconazole [Diflucan] 150 mg PO MO@0810/20/17 11/16/17 History Levothyroxine Sodium [Synthroid] 137 mcg PO DAILY@0800 10/20/17 11/16/17 History Nystatin 1 applic TOPICAL HS@199910/20/17 11/16/17 History SILVER sulfADIAZINE Cream 1 applic TOPICAL BID@799,199910/20/17 11/16/17 History [Silvadene 1% Cream] hydrALAZINE HCL [Apresoline] 50 mg PO TID@0800,1199,199910/20/17 11/16/17 History Albuterol Inhaler [Ventolin Hfa 1 - 2 puff INHALATION RT-Q4H PRN 10/24/17 History Inhaler] hydrOXYzine PAMOATE 25 mg PO TID 11/11/17 11/16/17 History Levofloxacin [Levaquin] 500 mg PO DAILY 11/16/17 11/16/17 History Montelukast Sodium [Singulair] 10 mg PO DAILY 11/16/17 11/16/17 History methylPREDNISolone [Medrol Dose See Taper PO DIRECTED 11/16/17 11/16/17 History Pack] Allergies Allergy/AdvReac Type Severity Reaction Status Date / Time buspirone [From BuSpar] Allergy Unknown Verified 11/16/17 17:27 haloperidol [From Haldol] Allergy Swelling Verified 11/16/17 17:27 iodine Allergy Swelling Verified 11/16/17 17:27 Penicillins Allergy Swelling Verified 11/16/17 17:27 prochlorperazine Allergy Rash/Hives Verified 11/16/17 17:27 Sulfa (Sulfonamide Allergy Rash/Hives Verified 11/16/17 17:27 Antibiotics) Tetanus Vaccines and Toxoid Allergy Rash/Hives Verified 11/16/17 17:27 [Tetanus Vaccines & Toxoid] trifluoperazine HCl Allergy Unknown Verified 11/16/17 17:27 [From Stelazine] Physical Exam Vitals: Vital Signs Temp Pulse Pulse Pulse Resp BP BP 11/17/17 12:00 98.0 F 83 16 154/74 11/17/17 08:22 87 11/17/17 08:09 83 11/17/17 08:00 97.7 F 86 18 168/73 11/17/17 04:00 98.3 F 81 18 11/17/17 00:37 98.5 F 76 20 175/82 11/17/17 00:00 93 18 11/16/17 22:00 98.5 F 102 H 20 186/86 11/16/17 21:00 98.1 F 84 18 158/86 11/16/17 20:00 97.4 F L 101 H 22 176/84 11/16/17 19:12 92 16 158/74 11/16/17 17:59 85 16 138/80 11/16/17 17:13 98 F 111 H 20 172/88 Pulse Ox 11/17/17 12:00 94 L 11/17/17 08:22 11/17/17 08:09 94 L 11/17/17 08:00 96 11/17/17 04:00 97 11/17/17 00:37 97 11/17/17 00:00 11/16/17 22:00 95 11/16/17 21:00 97 11/16/17 20:00 98 11/16/17 19:12 11/16/17 17:59 97 11/16/17 17:13 99 Intake and Output 11/16/17 11/17/17 11/17/17 22:59 06:59 14:59 Intake Total 500 Balance 500 Intake: Intake, IV Titration 500 Amount Heparin Sod,Pork in 0.45% 500 NaCl 25,000 unit In 0.45 % NaCl 1 500ml.bag @ 13.7 UNITS/KG/HR 45.98 mls/hr IV .[id number] [facility] Rx#: [id number] Other: Voiding Method Toilet Toilet # Voids 1 Weight 167.829 kg 167.829 kg Blood pressure 150/for heart rate 83 afebrile maintaining oxygen saturation on room air GENERAL: This is a 57-year-old female in no apparent distress at the time of my examination. Morbidly obese. HEENT: Head is atraumatic, normocephalic. Pupils are equal, round. Sclerae anicteric. Conjunctivae are clear. Mucous membranes of the mouth are moist. Neck is supple. There is no jugular venous distention. No carotid bruit is heard. LUNGS: Clear to auscultation no wheezes, rales or rhonchi. No chest wall tenderness is noted on palpation or with deep breathing. Diminished bilaterally HEART: Regular rate and rhythm with systolic ejection murmur at the base, no rubs or gallops. S1 and S2 heard. ABDOMEN: Soft, nontender. Bowel sounds are heard. No organomegaly noted. EXTREMITIES: No evidence of peripheral edema and no calf tenderness noted. VASCULAR: Radial and dorsalis pedis pulses palpated, no evidence of clubbing. NEUROLOGIC: Patient is awake, alert and oriented x3. Results 11/16/17 17:50 11/16/17 17:50 Cardiac Enzymes 11/16/17 11/16/17 11/17/17 Range/Units 17:50 17:50 00:30 AST 24 (14-36) U/L CK-MB (CK-2) 0.9 0.9 (0.0-2.4) ng/mL Troponin I <0.012 <0.012 (0.000-0.034) ng/mL 11/17/17 Range/Units 03:51 AST (14-36) U/L CK-MB (CK-2) 1.1 (0.0-2.4) ng/mL Troponin I <0.012 (0.000-0.034) ng/mL Coagulation 18 11/17/17 Range/Units 17:50 03:51 PT 10.1 (9.0-12.0) sec APTT 22.8 64.9 H (22.0-30.0) sec Lipids 11/17/17 Range/Units 03:51 Triglycerides 92 (<150) mg/dL Cholesterol 197 (<200) mg/dL HDL Cholesterol 82 H (40-60) mg/dL CBC 11/16/17 Range/Units 17:50 WBC 8.7 (3.8-10.6) k/uL RBC 4.05 (3.80-5.40) m/uL Hgb 11.4 (11.4-16.0) gm/dL Hct 35.8 (34.0-46.0) % Plt Count 333 (150-450) k/uL Comprehensive Metabolic Panel 11/16/17 Range/Units 17:50 Sodium 142 (137-145) mmol/L Potassium 4.3 (3.5-5.1) mmol/L Chloride 104 (98-107) mmol/L Carbon Dioxide 27 (22-30) mmol/L BUN 25 H (7-17) mg/dL Creatinine 0.84 (0.52-1.04) mg/dL Glucose 81 (74-99) mg/dL Calcium 9.7 (8.4-10.2) mg/dL AST 24 (14-36) U/L ALT 30 (9-52) U/L Alkaline Phosphatase 69 (38-126) U/L Total Protein 6.9 (6.3-8.2) g/dL Albumin 4.1 (3.5-5.0) g/dL Current Medications Generic Name Dose Route Start Last Admin Trade Name Freq PRN Reason Stop Dose Admin Albuterol/Ipratropium 3 ml 11/16/17 20:34 11/17/17 08:08 Duoneb 0.5 Mg-3 Mg/3 Ml Soln INHALATION 3 ml Q4HR PRN Administration Shortness Of Breath Or Wheezing Aspirin 325 mg 11/17/17 09:00 11/17/17 08:48 Aspirin PO 325 mg DAILY [facility] Administration Atorvastatin Calcium 10 mg 11/17/17 20:00 Lipitor PO HS@1999 [facility] Carvedilol 25 mg 11/17/17 08:00 11/17/17 08:49 Coreg PO 25 mg BID@08,1999 [facility] Administration Cholecalciferol 1,000 unit 11/17/17 08:00 11/17/17 08:49 Vitamin D3 PO 1,000 unit DAILY@0800 [facility] Administration Divalproex Sodium 1,000 mg 11/17/17 20:00 Depakote PO HS@1999 [facility] Duloxetine HCl 60 mg 11/17/17 08:00 11/17/17 08:49 Cymbalta PO 60 mg DAILY@0800 [facility] Administration Fluconazole 150 mg 11/18/17 08:00 Diflucan PO MO@0800 [facility] Heparin Sodium (Porcine) 0 unit 11/16/17 20:18 Heparin IV PER PROTOCOL PRN Low PTT Protocol Hydralazine HCl 50 mg 11/17/17 08:00 11/17/17 08:48 Apresoline PO 50 mg TID@0800,1199,1999 [facility] Administration Hydroxyzine Pamoate 25 mg 11/16/17 22:00 11/17/17 09:18 Vistaril PO 25 mg TID [facility] Administration Heparin Sodium/Sodium Chloride 500 mls @ 45.98 mls/hr 11/16/17 20:30 09:17 25,000 unit/ Sodium Chloride IV 13.7 units/kg/hr .[id number] [facility] 45.98 mls/hr Protocol Administration 13.7 UNITS/KG/HR Ibuprofen 600 mg 11/17/17 08:00 11/17/17 09:18 Motrin PO 600 mg QID@08,12,16,20 [facility] Administration Levofloxacin 500 mg 11/17/17 09:00 11/17/17 08:48 Levaquin PO 500 mg DAILY [facility] Administration Levothyroxine Sodium 137 mcg 11/17/17 08:00 11/17/17 08:49 Synthroid PO 137 mcg DAILY@0800 [facility] Administration Loratadine 10 mg 11/17/17 08:00 11/17/17 09:18 Claritin PO 10 mg DAILY@0800 [facility] Administration Methylprednisolone Sodium Succinate 40 mg 11/17/17 00:00 11/17/17 08:49 Solu-Medrol IV 40 mg Q8HR [facility] Administration Miscellaneous Information 1 each 11/16/17 18:20 11/16/17 19:52 Rx Info: Iv Contrast Was Given MISCELLANE 11/18/17 18:20 1 each DAILY PRN Administration Per Protocol Montelukast Sodium 10 mg 11/17/17 09:00 11/17/17 08:48 Singulair PO 10 mg DAILY [facility] Administration Multivitamins 1 each 11/17/17 12:00 11/17/17 08:49 Theragran PO 1 each DAILY@1200 [facility] Administration Nitroglycerin 0.4 mg 11/16/17 20:19 Nitrostat SUBLINGUAL Q5M PRN Chest Pain Mirabegron [ 50 mg 11/17/17 08:00 11/17/17 11:24 Myrbetriq] 50 Mg PO Not Given DAILY@0800 [facility] Nystatin 1 applic 11/17/17 20:00 Mycostatin Cream TOPICAL HS@1999 [facility] Pantoprazole Sodium 40 mg 11/17/17 08:00 11/17/17 08:49 Protonix PO 40 mg DAILY@0800 [facility] Administration Ropinirole HCl 2 mg 11/17/17 07:00 11/17/17 08:49 Requip PO 2 mg DAILY@0700 [facility] Administration Ropinirole HCl 3 mg 11/17/17 20:00 Requip PO HS@1999 [facility] Silver Sulfadiazine 1 applic 11/17/17 08:00 11/17/17 08:53 Silvadene Cream TOPICAL Not Given BID@0800,1999 [facility] Intake and Output 11/16/17 11/17/17 11/17/17 22:59 06:59 14:59 Intake Total 500 Balance 500 Intake: Intake, IV Titration 500 Amount Heparin Sod,Pork in 0.45% 500 NaCl 25,000 unit In 0.45 % NaCl 1 500ml.bag @ 13.7 UNITS/KG/HR 45.98 mls/hr IV .[id number] [facility] Rx#: [id number] Other: Voiding Method Toilet Toilet # Voids 1 Weight 167.829 kg 167.829 kg 11/16/17 17:50 11/16/17 17:50 Assessment and Plan Assessment: ASSESSMENT 1. Chest pain, atypical. Acute coronary event has been ruled out with no EKG evidence of ischemia and negative cardiac enzymes. 2. Acute pulmonary embolism noted on the VQ scan. Recommend chest x-ray follow -up 3. Hypertension 4. Dyslipidemia 5. Diabetes mellitus 6. Gastroesophageal reflux disease 7. Hypothyroidism 8. Morbid obesity PLAN Obtain chest x-ray. Continue on IV heparin, will consider transition to Xarelto tomorrow if covered by her insurance. If not can use Coumadin. Continue hydralazine, Corgard and atorvastatin. Further recommendations to follow. The above impression and plan of care have been discussed and directed by the signing physician. Dianna Florence, nurse practitioner, acting as scribe for signing physician.
--- NOTE | 2017-11-17 14:24 | XR ---
EXAMINATION TYPE: XR chest 2V DATE OF EXAM: 11/17/2017 COMPARISON: 11/11/2017 HISTORY: Chest pain TECHNIQUE: Frontal and lateral views of the chest are obtained. FINDINGS: There is increasing left basilar airspace disease in comparison the prior that appears rakan ear on the lateral view favored to represent atelectasis although pneumonia is also possible. Vascula r prominence suggest mild pulmonary vascular congestion and is exaggerated by low lung volumes. Heart is mildly enlarged. No sizable pleural effusion or pneumothorax. Mild multilevel degenerative change s of the thoracic spine are noted.. IMPRESSION: 1. Increasing left basilar opacity that could relate to atelectasis, early developing pneumonia, or p ulmonary infarct in this patient with high probability recent VQ scan. 2. Findings suggesting mild vascular congestion that may relate to underlying decompensated congestiv e heart failure.
--- NOTE | 2017-11-17 15:11 | P.HPIM ---
History of Present Illness Mrs. Lerner is a pleasant 57 showed female past medical history significant for diabetes mellitus, dyslipidemia, hypertension, asthma, anxiety and morbid obesity. She denies history of coronary artery disease. She follows regularly with Dr. Lenz as an outpatient. She presents to the hospital with complaints of chest pain and shortness of breath. She states her shortness of breath has been getting progressively worse over the previous month or so she has been seems to come after she is exerting herself and is associated with shortness of breath. The pain is described as a tight sensation with activity. The time she gets chest pain lasts approximately 20- 30 minutes with no specific alleviating factors. The pain is worse with movement and worse when she takes a deep breath. It is associated with nausea and palpitations. She denies dizziness, diaphoresis, vomiting, PND or orthopnea. VQ scan was done on admission secondary to suboptimal CT angios revealed a perfusion mismatch involving the left upper lobe corresponding to a high probability of pulmonary embolism. Patient is also complaining of chest pain which is pressure-like sensation. Patient is morbidly obese never was tested for sleep apnea in the past. Patient's chest pain is nonpleuritic in nature EKG on arrival reveals sinus mechanism no acute ST or T-wave abnormalities. Most recent echocardiogram performed 11/04/2017 reveals preserved left ventricular systolic function with ejection fraction 55-60%, mild aortic stenosis with a peak/mean gradient of 25.12/15.0 mmHg, trace to mild MR and trace TR, mild pulmonary hypertension with an RVSP of 41 mmHg. Current cardiac medications include atorvastatin 10 mg daily, hydralazine 50 mg 3 times a day, carvedilol 25 mg twice a day. Review of Systems REVIEW OF SYSTEMS: CONSTITUTIONAL: No fever, no malaise, no fatigue. HEENT: No recent visual problems or hearing problems. Denied any sore throat. CARDIOVASCULAR: No orthopnea, PND, no palpitations, no syncope. PULMONARY: no cough, no hemoptysis. GASTROINTESTINAL: No diarrhea, no nausea, no vomiting, no abdominal pain. Normoactive bowel sounds. NEUROLOGICAL: No headaches, no weakness, no numbness. HEMATOLOGICAL: Denies any bleeding or petechiae. GENITOURINARY: Denies any burning micturition, frequency, or urgency. MUSCULOSKELETAL/RHEUMATOLOGICAL: Denies any joint pain, swelling, or any muscle pain. ENDOCRINE: Denies any polyuria or polydipsia. The rest of the 14-point review of systems is negative. Past Medical History Past Medical History: Asthma, Diabetes Mellitus, GERD/Reflux, Hyperlipidemia, Hypertension, Musculoskeletal Disorder, Osteoarthritis (OA), Thyroid Disorder Additional Past Medical History / Comment(s): Recently diagnosed with asthma and recently treated for bronchitis with antibiotic, diet controlled diabetes, morbid obesity, hypothyroid, UTI, RLS, anemia, lumbar pain with herniated discs. History of Any Multi-Drug Resistant Organisms: None Reported Past Surgical History: Bariatric Surgery, Hernia Repair, Orthopedic Surgery Additional Past Surgical History / Comment(s): Total Right knee replacement, 3 abdominal hernia repairs, left hip repair Past Anesthesia/Blood Transfusion Reactions: No Reported Reaction Past Psychological History: Anxiety, Bipolar, Depression Additional Psychological History / Comment(s): Borderline personality disorder. Pt states her mental health is stable at this time. She states she sees a psychiatrist at [facility] and has a egg caser there. Pt has a legal gaurdian, Hang Hernandez. Pt states she currently resides at [facility] but she and a friend are in the process of relocating to independent living and legal borges is in aggreement with this plan. She cannot drive, she either takes the bus to [employer] or legal [employer] drives her to [employer]. She uses a cane or a walker to ambulate. She has a glucometer but no longer has to monitor her blood sugars. She has in the past had suicidal thoughts and plan and also homicidal thoughts but denies these being a current problem. Smoking Status: Never smoker Past Alcohol Use History: None Reported Past Drug Use History: None Reported - Past Family History Mother Family Medical History: Cancer Additional Family Medical History / Comment(s): lung cancer Father Additional Family Medical History / Comment(s): "my dad from a blood clot that traveled from his leg to his lung and also caused a heart attack." Brother(s) Family Medical History: Diabetes Mellitus Sister(s) Additional Family Medical History / Comment(s): "her heart races too fast" Medications and Allergies Home Medications Medication Instructions Recorded Confirmed Type rOPINIRole HCL [Requip] 3 mg PO HS@199905/05/16 11/16/17 History rOPINIRole HCL [Requip] 2 mg PO DAILY@0700 02/28/17 03/17/18 History Mirabegron [Myrbetriq] 50 mg PO DAILY@0800 05/23/17 11/16/17 History Atorvastatin [Lipitor] 10 mg PO HS@199906/07/17 11/16/17 History Carvedilol [Coreg] 25 mg PO BID@799,199906/07/17 11/16/17 History Cholecalciferol [Vitamin D3] 1,000 unit PO DAILY@0806/07/17 11/16/17 History Divalproex Sodium [Depakote] 1,000 mg PO HS@199906/07/17 11/16/17 History Loratadine [Claritin] 10 mg PO DAILY@0800 06/07/17 11/16/17 History Multivitamins, Thera [Multivitamin 1 tab PO DAILY@0800 06/07/17 11/16/17 History (formulary)] Omeprazole 20 mg PO DAILY@0800 06/07/17 11/16/17 History Ibuprofen [Motrin] 600 mg PO QID@08,12,16,20 06/09/17 11/16/17 History DULoxetine HCL [Cymbalta] 60 mg PO DAILY@0800 10/20/17 11/16/17 History Fluconazole [Diflucan] 150 mg PO MO@0810/20/17 11/16/17 History Levothyroxine Sodium [Synthroid] 137 mcg PO DAILY@0800 10/20/17 11/16/17 History Nystatin 1 applic TOPICAL HS@199910/20/17 11/16/17 History SILVER sulfADIAZINE Cream 1 applic TOPICAL BID@799,199910/20/17 11/16/17 History [Silvadene 1% Cream] hydrALAZINE HCL [Apresoline] 50 mg PO TID@0800,1199,199910/20/17 11/16/17 History Albuterol Inhaler [Ventolin Hfa 1 - 2 puff INHALATION RT-Q4H PRN 10/24/17 History Inhaler] hydrOXYzine PAMOATE 25 mg PO TID 11/11/17 11/16/17 History Levofloxacin [Levaquin] 500 mg PO DAILY 11/16/17 11/16/17 History Montelukast Sodium [Singulair] 10 mg PO DAILY 11/16/17 11/16/17 History methylPREDNISolone [Medrol Dose See Taper PO DIRECTED 11/16/17 11/16/17 History Pack] Allergies Allergy/AdvReac Type Severity Reaction Status Date / Time buspirone [From BuSpar] Allergy Unknown Verified 11/16/17 17:27 haloperidol [From Haldol] Allergy Swelling Verified 11/16/17 17:27 iodine Allergy Swelling Verified 11/16/17 17:27 Penicillins Allergy Swelling Verified 11/16/17 17:27 prochlorperazine Allergy Rash/Hives Verified 11/16/17 17:27 Sulfa (Sulfonamide Allergy Rash/Hives Verified 11/16/17 17:27 Antibiotics) Tetanus Vaccines and Toxoid Allergy Rash/Hives Verified 11/16/17 17:27 [Tetanus Vaccines & Toxoid] trifluoperazine HCl Allergy Unknown Verified 11/16/17 17:27 [From Stelazine] Physical Exam Vitals: Vital Signs Temp Pulse Pulse Pulse Resp BP BP 11/17/17 13:54 94 11/17/17 13:45 91 11/17/17 12:00 98.0 F 83 16 154/74 11/17/17 08:22 87 11/17/17 08:09 83 11/17/17 08:00 97.7 F 86 18 168/73 11/17/17 04:00 98.3 F 81 18 11/17/17 00:37 98.5 F 76 20 175/82 11/17/17 00:00 93 18 11/16/17 22:00 98.5 F 102 H 20 186/86 11/16/17 21:00 98.1 F 84 18 158/86 11/16/17 20:00 97.4 F L 101 H 22 176/84 11/16/17 19:12 92 16 158/74 11/16/17 17:59 85 16 138/80 11/16/17 17:13 98 F 111 H 20 172/88 Pulse Ox 11/17/17 13:54 11/17/17 13:45 11/17/17 12:00 94 L 11/17/17 08:22 11/17/17 08:09 94 L 11/17/17 08:00 96 11/17/17 04:00 97 11/17/17 00:37 97 11/17/17 00:00 11/16/17 22:00 95 11/16/17 21:00 97 11/16/17 20:00 98 11/16/17 19:12 11/16/17 17:59 97 11/16/17 17:13 99 Intake and Output 11/17/17 11/17/17 11/17/17 06:59 14:59 22:59 Intake Total 500 Balance 500 Intake: Intake, IV Titration 500 Amount Heparin Sod,Pork in 0.45% 500 NaCl 25,000 unit In 0.45 % NaCl 1 500ml.bag @ 13.7 UNITS/KG/HR 45.98 mls/hr IV .[id number] [facility] Rx#: [id number] Other: Voiding Method Toilet Toilet # Voids 1 Weight 167.829 kg PHYSICAL EXAMINATION: GENERAL: The patient is alert and oriented x3, not in any acute distress. Well developed, well nourished. Morbidly obese HEENT: Pupils are round and equally reacting to light. EOMI. No scleral icterus. No conjunctival pallor. Normocephalic, atraumatic. No pharyngeal erythema. No thyromegaly. CARDIOVASCULAR: S1 and S2 present. No murmurs, rubs, or gallops. PULMONARY: Chest is clear to auscultation, no wheezing or crackles. ABDOMEN: Soft, nontender, nondistended, normoactive bowel sounds. No palpable organomegaly. MUSCULOSKELETAL: No joint swelling or deformity. EXTREMITIES: No cyanosis, clubbing, or pedal edema. NEUROLOGICAL: Gross neurological examination did not reveal any focal deficits. SKIN: No rashes. Results CBC & Chem 7: 11/16/17 17:50 11/16/17 17:50 Labs: Abnormal Lab Results - Last 24 Hours (Table) 11/16/17 11/16/17 11/17/17 Range/Units 17:50 17:50 03:51 APTT (22.0-30.0) sec D-Dimer 0.72 H (<0.60) mg/L FEU BUN 25 H (7-17) mg/dL HDL Cholesterol 82 H (40-60) mg/dL 11/17/17 Range/Units 03:51 APTT 64.9 H (22.0-30.0) sec D-Dimer (<0.60) mg/L FEU BUN (7-17) mg/dL HDL Cholesterol (40-60) mg/dL Thrombosis Risk Factor Assmnt - Choose All That Apply Each Factor Represents 1 point: Age 41-60 years Thrombosis Risk Factor Assessment Total Risk Factor Score: 1 Thrombosis Risk Factor Assessment Level: Low Risk Assessment and Plan Plan: -Chest pain and shortness of breath: Possibility of pulmonary embolism cannot be ruled out considering the high probability on VQ scan. Patient does have significant family history of PEs. Patient is moderately obese which puts her at higher risk for pulmonary embolism. Because of her morbid obesity has a CAT scan is a suboptimal study. Plan is to continue with anticoagulation elevated commendations from pulmonary. Shortness of breath can be from obesity hypoventilation syndrome. -Rule out acute coronary syndromes. -Hypertension -Dyslipidemia -Type 2 diabetes mellitus -Moderate obesity possibly of sleep apnea will need a sleep study as an outpatient -Hypothyroidism -Gastroesophageal reflux disease For above-mentioned chronic medical problems patient will be continued on home medications
[2017-11-17] MEDS ORDERED: FUROSEMIDE 10 MG/ML 2 ML VIAL IV STA (15:18)
[2017-11-17] MEDS: Acetaminophen-Codeine 300-30mg TAB PO PRN (15:45)
--- NOTE | 2017-11-17 17:48 | P.CNPUL ---
History of Present Illness Consult date: 11/17/17 Requesting physician: Ashanti Doshi Reason for consult: pulmonary embolism Chief complaint: Shortness of breath History of present illness: This is a 57-year-old female with history of multiple medical problems including obesity, previous bariatric surgery, history of asthma, hypertension, osteoarthritis, hypothyroidism, patient presented to the ER with a 5 week history of increased shortness of breath. Patient denies any cough, no fever, no chills, no hemoptysis. Patient stated to me that since October 14 patient has been noticing profound shortness of breath with any exertion. Patient had a CT of the chest upon admission and it was nondiagnostic. D-dimer was slightly elevated. VQ scan showed high probability for pulmonary embolism. Patient is now on heparin, and I was asked to see her on consultation. Again no chest pain no fever no chills no hemoptysis no cough no wheezing. Her main complaint is shortness of breath for the last 5 weeks. Review of Systems 14 point review of systems were obtained, please refer to pertinent positives and negatives as noted in HPI. Otherwise remaining systems are negative. Past Medical History Past Medical History: Asthma, Diabetes Mellitus, GERD/Reflux, Hyperlipidemia, Hypertension, Musculoskeletal Disorder, Osteoarthritis (OA), Thyroid Disorder Additional Past Medical History / Comment(s): Recently diagnosed with asthma and recently treated for bronchitis with antibiotic, diet controlled diabetes, morbid obesity, hypothyroid, UTI, RLS, anemia, lumbar pain with herniated discs. History of Any Multi-Drug Resistant Organisms: None Reported Past Surgical History: Bariatric Surgery, Hernia Repair, Orthopedic Surgery Additional Past Surgical History / Comment(s): Total Right knee replacement, 3 abdominal hernia repairs, left hip repair Past Anesthesia/Blood Transfusion Reactions: No Reported Reaction Past Psychological History: Anxiety, Bipolar, Depression Additional Psychological History / Comment(s): Borderline personality disorder. Pt states her mental health is stable at this time. She states she sees a psychiatrist at [facility] and has a case consultant there. Pt has a legal gaurdian, Hang Hernandez. Pt states she currently resides at [facility] but she and a friend are in the process of relocating to independent living and legal borges is in aggreement with this plan. She cannot drive, she either takes the bus to [employer] or legal jony drives her to [employer]. She uses a cane or a walker to ambulate. She has a glucometer but no longer has to monitor her blood sugars. She has in the past had suicidal thoughts and plan and also homicidal thoughts but denies these being a current problem. Smoking Status: Never smoker Past Alcohol Use History: None Reported Past Drug Use History: None Reported - Past Family History Mother Family Medical History: Cancer Additional Family Medical History / Comment(s): lung cancer Father Additional Family Medical History / Comment(s): "my dad from a blood clot that traveled from his leg to his lung and also caused a heart attack." Brother(s) Family Medical History: Diabetes Mellitus Sister(s) Additional Family Medical History / Comment(s): "her heart races too fast" Medications and Allergies Home Medications Medication Instructions Recorded Confirmed Type rOPINIRole HCL [Requip] 3 mg PO HS@199905/05/16 11/16/17 History rOPINIRole HCL [Requip] 2 mg PO DAILY@0700 10/30/16 11/16/17 History Mirabegron [Myrbetriq] 50 mg PO DAILY@0800 05/23/17 11/16/17 History Atorvastatin [Lipitor] 10 mg PO HS@199906/07/17 11/16/17 History Carvedilol [Coreg] 25 mg PO BID@06/07/17 11/16/17 History Cholecalciferol [Vitamin D3] 1,000 unit PO DAILY@0800 06/07/17 11/16/17 History Divalproex Sodium [Depakote] 1,000 mg PO HS@199906/07/17 11/16/17 History Loratadine [Claritin] 10 mg PO DAILY@0800 06/07/17 11/16/17 History Multivitamins, Thera [Multivitamin 1 tab PO DAILY@0800 06/07/17 11/16/17 History (formulary)] Omeprazole 20 mg PO DAILY@0800 06/07/17 11/16/17 History Ibuprofen [Motrin] 600 mg PO QID@08,12,16,20 06/09/17 11/16/17 History DULoxetine HCL [Cymbalta] 60 mg PO DAILY@0800 10/20/17 11/16/17 History Fluconazole [Diflucan] 150 mg PO MO@0800 10/20/17 11/16/17 History Levothyroxine Sodium [Synthroid] 137 mcg PO DAILY@0810/20/17 11/16/17 History Nystatin 1 applic TOPICAL HS@199910/20/17 11/16/17 History SILVER sulfADIAZINE Cream 1 applic TOPICAL BID@08,199910/20/17 11/16/17 History [Silvadene 1% Cream] hydrALAZINE HCL [Apresoline] 50 mg PO TID@0800,1199,199910/20/17 11/16/17 History Albuterol Inhaler [Ventolin Hfa 1 - 2 puff INHALATION RT-Q4H PRN 10/24/17 History Inhaler] hydrOXYzine PAMOATE 25 mg PO TID 11/11/17 11/16/17 History Levofloxacin [Levaquin] 500 mg PO DAILY 11/16/17 11/16/17 History Montelukast Sodium [Singulair] 10 mg PO DAILY 11/16/17 11/16/17 History methylPREDNISolone [Medrol Dose See Taper PO DIRECTED 11/16/17 11/16/17 History Pack] Allergies Allergy/AdvReac Type Severity Reaction Status Date / Time buspirone [From BuSpar] Allergy Unknown Verified 11/16/17 17:27 haloperidol [From Haldol] Allergy Swelling Verified 11/16/17 17:27 iodine Allergy Swelling Verified 11/16/17 17:27 Penicillins Allergy Swelling Verified 11/16/17 17:27 prochlorperazine Allergy Rash/Hives Verified 11/16/17 17:27 Sulfa (Sulfonamide Allergy Rash/Hives Verified 11/16/17 17:27 Antibiotics) Tetanus Vaccines and Toxoid Allergy Rash/Hives Verified 11/16/17 17:27 [Tetanus Vaccines & Toxoid] trifluoperazine HCl Allergy Unknown Verified 11/16/17 17:27 [From Stelazine] Physical Exam Vitals: Vital Signs Temp Pulse Pulse Pulse Resp BP BP 11/17/17 16:00 98.4 F 101 H 18 11/17/17 13:54 94 11/17/17 13:45 91 11/17/17 12:00 98.0 F 83 16 154/74 03/18/18 08:22 87 11/17/17 08:09 83 11/17/17 08:00 97.7 F 86 18 168/73 11/17/17 04:00 98.3 F 81 18 11/17/17 00:37 98.5 F 76 20 175/82 11/17/17 00:00 93 18 11/16/17 22:00 98.5 F 102 H 20 186/86 11/16/17 21:00 98.1 F 84 18 158/86 11/16/17 20:00 97.4 F L 101 H 22 176/84 11/16/17 19:12 92 16 158/74 11/16/17 17:59 85 16 138/80 BP Pulse Ox 11/17/17 16:00 147/66 94 L 11/17/17 13:54 11/17/17 13:45 11/17/17 12:00 94 L 11/17/17 08:22 11/17/17 08:09 94 L 11/17/17 08:00 96 11/17/17 04:00 97 11/17/17 00:37 97 11/17/17 00:00 11/16/17 22:00 95 11/16/17 21:00 97 11/16/17 20:00 98 11/16/17 19:12 11/16/17 17:59 97 Intake and Output 11/17/17 11/17/17 11/17/17 06:59 14:59 22:59 Intake Total 500 Balance 500 Intake: Intake, IV Titration 500 Amount Heparin Sod,Pork in 0.45% 500 NaCl 25,000 unit In 0.45 % NaCl 1 500ml.bag @ 13.7 UNITS/KG/HR 45.98 mls/hr IV .[id number] [facility] Rx#: [id number] Other: Voiding Method Toilet Toilet # Voids 1 Weight 167.829 kg Physical Exam: Revealed a 57-year-old female, obese, in no distress. Head: Atraumatic normocephalic Eyes: PERRLA, EOMI, no icterus. HEENT:[Neck is supple.] [No neck masses.] [No thyromegaly.] [No JVD.] Chest: [Clear throughout, no crackles, no rhonchi, no wheezes.] Cardiac Exam: [Normal S1 and S2, no S3 gallop, no murmur.] Abdomen: [Soft, nontender, no megaly, no rebound, no guarding, normal bowel sounds.] Extremities: [No clubbing, no edema, no cyanosis.] Neurological Exam: [No focal neurologic deficit. Lymphatics: No lymphadenopathy Psychiatric: Normal mood and affect, patient does have history of bipolar disorder.] Results - Laboratory Findings CBC and BMP: 11/16/17 17:50 11/16/17 17:50 PT/INR, D-dimer PT 10.1 sec (9.0-12.0) 11/16/17 17:50 INR 1.0 (<1.2) 11/16/17 17:50 D-Dimer 0.72 mg/L FEU (<0.60) H 11/16/17 17:50 Abnormal lab findings: Abnormal Labs 11/16/17 11/16/17 11/17/17 17:50 17:50 03:51 APTT D-Dimer 0.72 H BUN 25 H HDL Cholesterol 82 H 11/17/17 03:51 APTT 64.9 H D-Dimer BUN HDL Cholesterol - Diagnostic Findings CT scan - chest: image reviewed Additional studies: VQ scan was reviewed. And his highly suspicious for pulmonary embolism. Assessment and Plan Assessment: Impression: 1 Shortness of breath secondary to subacute pulmonary embolism and morbid obesity. 2 morbid obesity 3 mild pulmonary hypertension 4 remote history of bronchial asthma 5 history of multiple comorbidities including diabetes, GERD without esophagitis , hyperlipidemia, hypothyroidism, osteoarthritis, and borderline personality disorder. Family history of thromboembolic disease/father. Recommendation: Agree with the present treatment plan, not much to be added from my perspective, no need for antibiotics, switch patient in the next 24 hours to Xarelto, and follow-up on outpatient basis. Suggest venous Doppler although it will not make any difference in overall treatment plan. Time with Patient: Greater than 30
[2017-11-17] MEDS ORDERED: NYSTATIN 100,000UNIT/GM CREAM 30 GM TUBE TOPICAL SCH (20:00)
[2017-11-17] MEDS ORDERED: ATORVASTATIN 10 MG TAB PO SCH (20:00)
[2017-11-17] MEDS ORDERED: DIVALPROEX 500 MG TABLET.DR PO SCH (20:00)
[2017-11-17] MEDS: ONDANSETRON 4 MG/2 ML VIAL IVP PRN (21:24)
[2017-11-18] MEDS: ONDANSETRON 4 MG/2 ML VIAL IVP PRN (02:11)
[2017-11-18] MEDS: IPRATROPIUM-ALBUTEROL 3 ML NEB INHALATION PRN (07:46)
[2017-11-18] MEDS ORDERED: FLUCONAZOLE 150 MG TAB PO SCH (08:00)
[2017-11-18 08:07] VITALS: RESP 16
[2017-11-18] MEDS: MONTELUKAST 10 MG TAB PO SCH (08:40)
[2017-11-18] MEDS: DULoxetine HCL 60 MG CAPSULE.DR PO SCH (08:40)
[2017-11-18] MEDS: PANTOPRAZOLE 40 MG TABLET PO SCH (08:41)
[2017-11-18] MEDS: LORATADINE 10 MG TAB PO SCH (08:41)
[2017-11-18] MEDS: CARVEDILOL 12.5 MG TAB PO SCH (08:41)
[2017-11-18] MEDS: LEVOTHYROXINE 137 MCG TAB PO SCH (08:41)
[2017-11-18] MEDS ORDERED: RIVAROXABAN 15 MG TAB PO SCH (08:45)
[2017-11-18] MEDS: Mirabegron [Myrbetriq] 50 MG PO SCH (08:45)
[2017-11-18] MEDS ORDERED: ASPIRIN 81 MG PO SCH (09:00)
[2017-11-18] MEDS: hydrOXYzine PAMOATE 25 MG CAP PO SCH (09:07)
[2017-11-18] MEDS: CHOLECALCIFEROL 1,000 UNIT TAB PO SCH (09:08)
[2017-11-18] MEDS: IBUPROFEN 600 MG TAB PO SCH (09:08)
[2017-11-18] MEDS: hydrALAZINE HCL 50 MG TAB PO SCH (09:09)
--- NOTE | 2017-11-18 10:56 | P.PN ---
Subjective Progress Note Date: 11/18/17 Mrs. Lerner is seen and examined by myself along with Dr. Gordon. She is sitting up at the bedside in no acute distress. She continues to c/o intermittent symptoms of shortness of breath. Denies chest pain, dizziness, palpitations, nausea, vomiting or diaphoresis. Telemetry tracings have been unremarkable. Blood pressure 135/63 heart rate 84 afebrile and maintaining oxygen saturation on room air. Heparin infusion was discontinued and xarelto initiated per pulmonology. This is a covered drug per case management. She is currently awaiting prescriptions to go home. Chest xray reveals increasing left basilar opacity that could related to atelectasis, early developing pneumonia, or pulmonary infarct in this patient with a high probability for PE. Findings suggesting mild vascular congestion. She is currently euvolemic and pulmonology is following. Objective - Vital Signs Vital signs: Vital Signs Temp 98.1 F 11/18/17 08:00 Pulse 84 11/18/17 08:00 Resp 16 11/18/17 08:00 BP 135/63 11/18/17 08:00 Pulse Ox 94 L 11/18/17 08:00 Intake & Output 11/17/17 11/18/17 11/18/17 18:59 06:59 18:59 Intake Total 500 500 Balance 500 500 Weight 167.829 kg Intake: Intake, IV Titration 500 500 Amount Heparin Sod,Pork in 0.45% 500 500 NaCl 25,000 unit In 0.45 % NaCl 1 500ml.bag @ 13.7 UNITS/KG/HR 45.98 mls/hr IV .[id number] [facility] Rx#: [id number] Other: Voiding Method Toilet Toilet Toilet # Voids 1 - Exam GENERAL: Well-appearing, well-nourished and in no acute distress. Morbidly obese. NECK: Supple without JVD or thyromegaly. LUNGS: Breath sounds clear to auscultation bilaterally. Respiration equal and unlabored. No wheezes, rales or rhonchi. Diminished bilaterally. HEART: Regular rate and rhythm with systolic ejection murmur at the base, no rubs or gallops. S1 and S2 heard. EXTREMITIES: Normal range of motion, no edema. No clubbing or cyanosis. Peripheral pulses intact and strong. - Labs CBC & Chem 7: 11/16/17 17:50 11/16/17 17:50 Labs: Abnormal Lab Results - Last 24 Hours (Table) 11/18/17 Range/Units 03:27 APTT 64.8 H (22.0-30.0) sec Assessment and Plan Assessment: ASSESSMENT 1. Chest pain, atypical. Acute coronary event has been ruled out with no EKG evidence of ischemia and negative cardiac enzymes. 2. Acute pulmonary embolism noted on the VQ scan. Recommend chest x-ray follow -up 3. Hypertension 4. Dyslipidemia 5. Diabetes mellitus 6. Gastroesophageal reflux disease 7. Hypothyroidism 8. Morbid obesity PLAN Agree with pulmonology recommendations to go home on xarelto. Follow up with Dr. Lenz in 2-3 weeks. The above impression and plan of care have been discussed and directed by the signing physician. Dianna Florence, nurse practitioner, acting as scribe for signing physician.
[2017-11-18] MEDS: Acetaminophen-Codeine 300-30mg TAB PO PRN (11:56)
[2017-11-18] MEDS: MULTIVITAMINS, THERA 1 EACH TAB PO SCH (11:56)
[2017-11-18 12:08] LABS: Glucose,Whole Blood 100 mg/dL (75-99)
[2017-11-18 12:30] VITALS: BP 118/48; PULSE 75; TEMP 97.5
--- NOTE | 2017-11-18 13:38 | P.PN ---
Subjective Progress Note Date: 11/18/17 Principal diagnosis: Shortness of breath secondary to subacute pulmonary embolism and morbid obesity This is a 57-year-old female with history of multiple medical problems including obesity, previous bariatric surgery, history of asthma, hypertension, osteoarthritis, hypothyroidism, patient presented to the ER with a 5 week history of increased shortness of breath. Patient denies any cough, no fever, no chills, no hemoptysis. Patient stated to me that since October 14 patient has been noticing profound shortness of breath with any exertion. Patient had a CT of the chest upon admission and it was nondiagnostic. D-dimer was slightly elevated. VQ scan showed high probability for pulmonary embolism. Patient is now on heparin, and I was asked to see her on consultation. Again no chest pain no fever no chills no hemoptysis no cough no wheezing. Her main complaint is shortness of breath for the last 5 weeks. On 11/18/2017 patient seen again on the observation unit. She is resting comfortably in bed, denies any acute distress. She states she still dyspneic on exertion, she is not on room air, with O2 sat at 93-94%. She is afebrile, hemodynamically stable. Denies any chest pain, denies any hemoptysis. Her insurance coverage was checked, and her Xarelto will be covered under her insurance plan. Lung sounds are clear, no rhonchi or wheezing was noted. Heparin be discontinued once the Xarelto is started. Encourage activity, increase ambulation. Patient states she does not have a place to live at the moment, [employer] will be consulted to look into her living situation. Patient does have a public guardian related to her history of mental illness. Otherwise no acute complaints. Objective - Vital Signs Vital signs: Vital Signs Temp 97.5 F L 11/18/17 12:00 Pulse 75 11/18/17 12:00 Resp 16 11/18/17 12:00 BP 118/48 11/18/17 12:00 Pulse Ox 93 L 11/18/17 12:00 Intake & Output 11/17/17 11/18/17 11/18/17 18:59 06:59 18:59 Intake Total 500 500 118 Balance 500 500 118 Weight 167.829 kg Intake: Intake, IV Titration 500 500 Amount Heparin Sod,Pork in 0.45% 500 500 NaCl 25,000 unit In 0.45 % NaCl 1 500ml.bag @ 13.7 UNITS/KG/HR 45.98 mls/hr IV .[id number] [facility] Rx#: [id number] Oral 118 Other: Voiding Method Toilet Toilet Toilet # Voids 1 - Exam GENERAL EXAM: Alert, obese, 57-year-old female comfortable in no apparent distress. HEAD: Normocephalic/atraumatic. EYES: Normal reaction of pupils, equal size. Conjunctiva pink, sclera white. NOSE: Clear with pink turbinates. THROAT: No erythema or exudates. NECK: No masses, no JVD, no thyroid enlargement, no adenopathy. CHEST: No chest wall deformity. Symmetrical expansion. LUNGS: Equal air entry with no crackles, wheeze, rhonchi or dullness. CVS: Regular rate and rhythm, normal S1 and S2, no gallops, no murmurs, no rubs ABDOMEN: Soft, nontender. No hepatosplenomegaly, normal bowel sounds, no guarding or rigidity. EXTREMITIES: No clubbing, no edema, no cyanosis, 2+ pulses and upper and lower extremities. MUSCULOSKELETAL: Muscle strength and tone normal. SPINE: No scoliosis or deformity SKIN: No rashes CENTRAL NERVOUS SYSTEM: Alert and oriented -3. No focal deficits, tone is normal in all 4 extremities. PSYCHIATRIC: Alert and oriented -3. Appropriate affect. Intact judgment and insight. - Labs CBC & Chem 7: 11/16/17 17:50 11/16/17 17:50 Labs: Abnormal Lab Results - Last 24 Hours (Table) 11/18/17 11/18/17 Range/Units 03:27 12:04 APTT 64.8 H (22.0-30.0) sec POC Glucose (mg/dL) 100 H (75-99) mg/dL Assessment and Plan Plan: Assessment: 1 Shortness of breath secondary to subacute pulmonary embolism and morbid obesity. 2 morbid obesity 3 mild pulmonary hypertension 4 remote history of bronchial asthma 5 history of multiple comorbidities including diabetes, GERD without esophagitis , hyperlipidemia, hypothyroidism, osteoarthritis, and borderline personality disorder. Family history of thromboembolic disease/father. Recommendation: Patient will be started on Xarelto, discontinue heparin drip. She remains stable from pulmonary standpoint, currently on room air, denies any worsening dyspnea. Increase ambulation. Pulmonary standpoint she is clear for discharge home today on Xarelto starter pack, follow-up with Dr. Means any office in one week. I performed a history & physical examination of the patient and discussed their management with my nurse practitioner, Joleen Colbert. I reviewed the nurse practitioner's note and agree with the documented findings and plan of care. Lung sounds clear. The findings and the impression was discussed with the patient. I attest to the documentation by the nurse practitioner. Time with Patient: Less than 30
--- NOTE | 2017-11-18 15:42 | P.DS ---
Providers Date of admission: 11/17/17 10:15 Attending physician: Drake Broussard Consults: 11/16/17 20:19 Consult Physician Urgent Consulting Provider: Carol Ann Gordon Consult Reason/Comments: UA Do you want consulting provider notified?: Yes 11/17/17 11:18 Consult Physician Routine Consulting Provider: Chinyere Means Reason/Comments: pe Do you want consulting provider notified?: Yes Primary care physician: Chasidy Smyth Hospital Course: Patient was admitted for shortness of breath found to have pulmonary embolism by VQ scan patient is being discharged on Xarelto. Pulmonary valid the patient and that if recommending anticoagulation. For rest of the chronic medical problems and hospitalization course please refer to my HPI. Patient Condition at Discharge: Stable Plan - Discharge Summary New Discharge Prescriptions: New Rivaroxaban [Xarelto Starter Pack] 1 each PO DIRECTED 30 Days #1 tab Rivaroxaban [Xarelto] 20 mg PO DAILY 90 Days #90 tab No Action rOPINIRole HCL [Requip] 3 mg PO HS@1999 rOPINIRole HCL [Requip] 2 mg PO DAILY@0700 Mirabegron [Myrbetriq] 50 mg PO DAILY@0800 Loratadine [Claritin] 10 mg PO DAILY@0800 Carvedilol [Coreg] 25 mg PO BID@0800,1999 Atorvastatin [Lipitor] 10 mg PO HS@1999 Omeprazole 20 mg PO DAILY@0800 Multivitamins, Thera [Multivitamin (formulary)] 1 tab PO DAILY@0800 Divalproex Sodium [Depakote] 1,000 mg PO HS@1999 Cholecalciferol [Vitamin D3] 1,000 unit PO DAILY@0800 Ibuprofen [Motrin] 600 mg PO QID@08,12,16,20 Nystatin 1 applic TOPICAL HS@1999 hydrALAZINE HCL [Apresoline] 50 mg PO TID@0800,1200,1999 SILVER sulfADIAZINE Cream [Silvadene 1% Cream] 1 applic TOPICAL BID@0800,1999 Levothyroxine Sodium [Synthroid] 137 mcg PO DAILY@0800 Fluconazole [Diflucan] 150 mg PO MO@0800 DULoxetine HCL [Cymbalta] 60 mg PO DAILY@0800 Albuterol Inhaler [Ventolin Hfa Inhaler] 1 - 2 puff INHALATION RT-Q4H PRN PRN Reason: Cough hydrOXYzine PAMOATE 25 mg PO TID methylPREDNISolone [Medrol Dose Pack] See Taper PO DIRECTED Levofloxacin [Levaquin] 500 mg PO DAILY Montelukast Sodium [Singulair] 10 mg PO DAILY Discharge Medication List rOPINIRole HCL [Requip] 3 mg PO HS@199905/05/16 [History] rOPINIRole HCL [Requip] 2 mg PO DAILY@0710/30/16 [History] Mirabegron [Myrbetriq] 50 mg PO DAILY@0805/23/17 [History] Atorvastatin [Lipitor] 10 mg PO HS@199906/07/17 [History] Carvedilol [Coreg] 25 mg PO BID@799,199906/07/17 [History] Cholecalciferol [Vitamin D3] 1,000 unit PO DAILY@79906/07/17 [History] Divalproex Sodium [Depakote] 1,000 mg PO HS@199906/07/17 [History] Loratadine [Claritin] 10 mg PO DAILY@0806/07/17 [History] Multivitamins, Thera [Multivitamin (formulary)] 1 tab PO DAILY@0806/07/17 [ History] Omeprazole 20 mg PO DAILY@0806/07/17 [History] Ibuprofen [Motrin] 600 mg PO QID@08,12,16,20 06/09/17 [History] DULoxetine HCL [Cymbalta] 60 mg PO DAILY@0810/20/17 [History] Fluconazole [Diflucan] 150 mg PO MO@79910/20/17 [History] Levothyroxine Sodium [Synthroid] 137 mcg PO DAILY@0810/20/17 [History] Nystatin 1 applic TOPICAL HS@199910/20/17 [History] SILVER sulfADIAZINE Cream [Silvadene 1% Cream] 1 applic TOPICAL BID@799,1999 [History] hydrALAZINE HCL [Apresoline] 50 mg PO TID@0800,1199,199910/20/17 [History] Albuterol Inhaler [Ventolin Hfa Inhaler] 1 - 2 puff INHALATION RT-Q4H PRN [History] hydrOXYzine PAMOATE 25 mg PO TID 03/12/18 [History] Levofloxacin [Levaquin] 500 mg PO DAILY 11/16/17 [History] Montelukast Sodium [Singulair] 10 mg PO DAILY 11/16/17 [History] methylPREDNISolone [Medrol Dose Pack] See Taper PO DIRECTED 11/16/17 [History ] Rivaroxaban [Xarelto Starter Pack] 1 each PO DIRECTED 30 Days #1 tab [Rx] Rivaroxaban [Xarelto] 20 mg PO DAILY 90 Days #90 tab 11/18/17 [Rx] Follow up Appointment(s)/Referral(s): Chinyere Means MD [STAFF PHYSICIAN] - 1 Week Libra Umaña MD [Primary Care Provider] - 3 Days Patient Instructions/Handouts: Chest Pain (DC) Discharge Disposition: HOME SELF-CARE
== END 2017-11-18 15:58 | disposition home or self-care (01) | DRG 176 ==
LOC: EC 16:51 → 3OBS 20:50 → OBSVTOIN 11-17 10:15
PROVIDERS: ADMIT Hospitalist; ATTEND Hospitalist
DX: I26.99 Other pulmonary embolism without acute cor pulmonale (principal); E66.2 Morbid (severe) obesity with alveolar hypoventilation; I27.20 Pulmonary hypertension, unspecified; Z68.44 Body mass index [BMI] 60.0-69.9, adult; E03.9 Hypothyroidism, unspecified; E11.9 Type 2 diabetes mellitus without complications; E78.5 Hyperlipidemia, unspecified; F32.9 Major depressive disorder, single episode, unspecified; F41.9 Anxiety disorder, unspecified; F60.3 Borderline personality disorder; G25.81 Restless legs syndrome; I10 Essential (primary) hypertension; I35.0 Nonrheumatic aortic (valve) stenosis; J45.909 Unspecified asthma, uncomplicated; K21.9 Gastro-esophageal reflux disease without esophagitis; Z79.899 Other long term (current) drug therapy; Z80.1 Family history of malignant neoplasm of trachea, bronchus and lung; Z82.49 Family history of ischemic heart disease and other diseases of the circulatory system; Z83.3 Family history of diabetes mellitus; Z96.651 Presence of right artificial knee joint; Z98.84 Bariatric surgery status; Z88.2 Allergy status to sulfonamides; Z88.0 Allergy status to penicillin; Z88.3 Allergy status to other anti-infective agents; Z88.7 Allergy status to serum and vaccine; Z88.8 Allergy status to other drugs, medicaments and biological substances; Z79.890 Hormone replacement therapy; G47.30 Sleep apnea, unspecified
CPT/HCPCS: 36415; 71046; 71275; 78582; 80053; 80061; 82550; 82553; 83735; 84484; 85025; 85379; 85610; 85730; 93005; 94640; 94760; 96365; 96375; 96376; 99285

== ENCOUNTER 2017-12-07 09:22 | Emergency (ER) | payer MEDICARE, OTHER ==
--- NOTE | 2017-12-07 10:50 | XR ---
EXAMINATION TYPE: XR chest 2V DATE OF EXAM: 12/07/2017 HISTORY: cough. REFERENCE: Previous study dated 11/17/2017. FINDINGS: The study is limited by the patient's tremendous size. The heart is enlarged. There is vascular congestion and subtle interstitial change. There is infrahil ar prominence on the right but this may be due to rotation. No definite consolidation is seen. IMPRESSION: 1. FAIRLY MARKEDLY SUBOPTIMAL EXAMINATION. 2. THERE MAY BE MILD CHANGES OF HEART FAILURE. PLEASE CORRELATE CLINICALLY.
[2017-12-07] MEDS ORDERED: ACETAMINOPHEN TAB 325 MG TAB PO STA (11:19)
[2017-12-07] MEDS ORDERED: IBUPROFEN 600 MG TAB PO STA (11:20)
--- NOTE | 2017-12-07 11:26 | ED ---
General Adult HPI - General Chief complaint: Fever Stated complaint: Flu Symptoms Time Seen by Provider: 12/07/17 09:50 Source: patient, EMS, RN notes reviewed Mode of arrival: EMS Limitations: no limitations - History of Present Illness Initial comments: Patient 57-year-old female who presents emergency room today with chief complaint of cough congestion over the last 4 days. Also admits that she had some symptoms of nausea vomiting diarrhea that started with. Patient denies any abdominal pain. Patient does not to bodyaches and chills. Patient denies any other complaints. Patient denies any recent fever, chills, shortness of breath, chest pain, back pain, abdominal pain, nausea or vomiting, numbness or tingling, dysuria or hematuria, constipation or diarrhea, headaches or visual changes, or any other complaints. - Related Data Home Medications Medication Instructions Recorded Confirmed rOPINIRole HCL [Requip] 3 mg PO HS@199905/05/16 11/16/17 rOPINIRole HCL [Requip] 2 mg PO DAILY@69910/30/16 11/16/17 Mirabegron [Myrbetriq] 50 mg PO DAILY@0800 05/23/17 11/16/17 Atorvastatin [Lipitor] 10 mg PO HS@199906/07/17 11/16/17 Carvedilol [Coreg] 25 mg PO BID@799,199906/07/17 11/16/17 Cholecalciferol [Vitamin D3] 1,000 unit PO DAILY@0800 06/07/17 11/16/17 Divalproex Sodium [Depakote] 1,000 mg PO HS@199906/07/17 11/16/17 Loratadine [Claritin] 10 mg PO DAILY@0800 06/07/17 11/16/17 Multivitamins, Thera [Multivitamin 1 tab PO DAILY@0800 06/07/17 11/16/17 (formulary)] Omeprazole 20 mg PO DAILY@0800 06/07/17 11/16/17 Ibuprofen [Motrin] 600 mg PO QID@08,12,16,20 06/09/17 11/16/17 DULoxetine HCL [Cymbalta] 60 mg PO DAILY@0800 10/20/17 11/16/17 Fluconazole [Diflucan] 150 mg PO MO@0800 10/20/1718 Levothyroxine Sodium [Synthroid] 137 mcg PO DAILY@0810/20/17 11/16/17 Nystatin 1 applic TOPICAL HS@199910/20/17 11/16/17 SILVER sulfADIAZINE Cream 1 applic TOPICAL BID@799,199910/20/17 11/16/17 [Silvadene 1% Cream] hydrALAZINE HCL [Apresoline] 50 mg PO TID@0800,1199,199910/20/17 11/16/17 Albuterol Inhaler [Ventolin Hfa 1 - 2 puff INHALATION RT-Q4H PRN 10/24/17 Inhaler] hydrOXYzine PAMOATE 25 mg PO TID 11/11/17 11/16/17 Levofloxacin [Levaquin] 500 mg PO DAILY 11/16/17 11/16/17 Montelukast Sodium [Singulair] 10 mg PO DAILY 11/16/17 11/16/17 methylPREDNISolone [Medrol Dose See Taper PO DIRECTED 11/16/17 11/16/17 Pack] Previous Rx's Medication Instructions Recorded Rivaroxaban [Xarelto Starter Pack] 1 each PO DIRECTED 30 Days #1 11/18/17 tab Rivaroxaban [Xarelto] 20 mg PO DAILY 90 Days #90 tab 11/18/17 Allergies Allergy/AdvReac Type Severity Reaction Status Date / Time buspirone [From BuSpar] Allergy Unknown Verified 12/07/17 09:30 haloperidol [From Haldol] Allergy Swelling Verified 12/07/17 09:30 iodine Allergy Swelling Verified 12/07/17 09:30 Penicillins Allergy Swelling Verified 12/07/17 09:30 prochlorperazine Allergy Rash/Hives Verified 12/07/17 09:30 Sulfa (Sulfonamide Allergy Rash/Hives Verified 12/07/17 09:30 Antibiotics) Tetanus Vaccines and Toxoid Allergy Rash/Hives Verified 12/07/17 09:30 [Tetanus Vaccines & Toxoid] trifluoperazine HCl Allergy Unknown Verified 12/07/17 09:30 [From Stelazine] Review of Systems ROS Statement: Those systems with pertinent positive or pertinent negative responses have been documented in the HPI. ROS Other: All systems not noted in ROS Statement are negative. Past Medical History Past Medical History: Asthma, Diabetes Mellitus, GERD/Reflux, Hyperlipidemia, Hypertension, Musculoskeletal Disorder, Osteoarthritis (OA), Pulmonary Embolus ( PE), Thyroid Disorder Additional Past Medical History / Comment(s): Recently diagnosed with asthma and recently treated for bronchitis with antibiotic, diet controlled diabetes, morbid obesity, hypothyroid, UTI, RLS, anemia, lumbar pain with herniated discs. History of Any Multi-Drug Resistant Organisms: None Reported Past Surgical History: Bariatric Surgery, Hernia Repair, Orthopedic Surgery Additional Past Surgical History / Comment(s): Total Right knee replacement, 3 abdominal hernia repairs, left hip repair Past Anesthesia/Blood Transfusion Reactions: No Reported Reaction Past Psychological History: Anxiety, Bipolar, Depression Smoking Status: Never smoker Past Alcohol Use History: None Reported Past Drug Use History: None Reported - Past Family History Mother Family Medical History: Cancer Additional Family Medical History / Comment(s): lung cancer Father Additional Family Medical History / Comment(s): "my dad from a blood clot that traveled from his leg to his lung and also caused a heart attack." Brother(s) Family Medical History: Diabetes Mellitus Sister(s) Additional Family Medical History / Comment(s): "her heart races too fast" General Exam Limitations: no limitations Course Vital Signs 12/07/17 12/07/17 09:25 11:08 Temperature 99.4 F 101.4 F H Pulse Rate 101 H 105 H Respiratory 20 20 Rate Blood Pressure 169/73 183/86 O2 Sat by Pulse 96 96 Oximetry Medical Decision Making - Medical Decision Making Case discussed with DR Cortés. Patient's labs been reviewed and negative influenza. Chest x-ray showing no acute signs of pneumonia. Patient's vitals are stable. Pulse ox 1% on room air. Patient does admit to cough congestion. Low-grade temperature on reexamination was given Tylenol here in emergency room. At this time patient states that it would like to be discharged home. Patient was mostly viral illness to follow-up the family physician return symptoms increase worsen. - Lab Data Lab Results 12/07/17 Range/Units 10:45 Influenza Type A RNA Not Detected (Not Detectd) Influenza Type B (PCR) Not Detected (Not Detectd) Disposition Clinical Impression: URI (upper respiratory infection) Disposition: HOME SELF-CARE Condition: Good Instructions: Upper Respiratory Infection (ED) Referrals: Libra Umaña MD [Primary Care Provider] - 1-2 days Time of Disposition: 11:31
[2017-12-07 12:18] VITALS: BP 173/79; PULSE 104; RESP 18
[2017-12-07 12:26] VITALS: TEMP 101.4
== END 2017-12-07 12:17 | disposition home or self-care (01) ==
LOC: EC 09:22
DX: J06.9 Acute upper respiratory infection, unspecified (principal); K21.9 Gastro-esophageal reflux disease without esophagitis; J45.909 Unspecified asthma, uncomplicated; E78.5 Hyperlipidemia, unspecified; I10 Essential (primary) hypertension; M19.90 Unspecified osteoarthritis, unspecified site; E03.9 Hypothyroidism, unspecified; G25.81 Restless legs syndrome; F41.9 Anxiety disorder, unspecified; F32.9 Major depressive disorder, single episode, unspecified; E66.01 Morbid (severe) obesity due to excess calories; Z68.43 Body mass index [BMI] 50.0-59.9, adult; Z86.711 Personal history of pulmonary embolism; Z79.02 Long term (current) use of antithrombotics/antiplatelets; Z79.899 Other long term (current) drug therapy; Z79.1 Long term (current) use of non-steroidal anti-inflammatories (NSAID); Z79.52 Long term (current) use of systemic steroids; Z88.8 Allergy status to other drugs, medicaments and biological substances; Z91.048 Other nonmedicinal substance allergy status; Z88.0 Allergy status to penicillin; Z88.2 Allergy status to sulfonamides; Z88.7 Allergy status to serum and vaccine
CPT/HCPCS: 71046; 87502; 99284

== ENCOUNTER 2017-12-10 20:19 | Inpatient (IN) | payer MEDICARE, OTHER ==
[2017-12-10 21:12] LABS: Basophils % (A) 0 %; Eosinophils # (A) 0.1 k/uL (0-0.7); Eosinophils % (A) 1 %; Lymphocytes # (A) 0.6 k/uL (1.0-4.8); Lymphocytes % (A) 11 %; Mean Platelet Volume 7.8; Monocytes # (A) 0.2 k/uL (0-1.0); Monocytes % (A) 4 %; Neutrophils # (A) 4.4 k/uL (1.3-7.7); Neutrophils % (A) 80 %; Platelet Count 257 k/uL (150-450); RBC 3.29 m/uL (3.80-5.40); RDW 13.3 % (11.5-15.5); WBC 5.6 k/uL (3.8-10.6)
[2017-12-10 21:15] LABS: HGB 9.2 gm/dL (11.4-16.0)
[2017-12-10 21:20] LABS: INR 0.9 (<1.2); Partial Thromboplastin Time 27.8 sec (22.0-30.0); Prothrombin Time 9.3 sec (9.0-12.0)
[2017-12-10 21:23] LABS: Creatine Kinase 261 U/L (30-135)
[2017-12-10 21:24] LABS: Calcium 8.7 mg/dL (8.4-10.2); Magnesium 2.3 mg/dL (1.6-2.3); Potassium 3.8 mmol/L (3.5-5.1); Total Bilirubin 0.3 mg/dL (0.2-1.3); Total Protein 5.5 g/dL (6.3-8.2)
[2017-12-10] MEDS ORDERED: IPRATROPIUM-ALBUTEROL 3 ML NEB INHALATION STA (21:26)
--- NOTE | 2017-12-10 21:28 | ED ---
URI HPI - General Source: patient, EMS, RN notes reviewed Mode of arrival: EMS Limitations: no limitations <Juan Alberto Hutchins - Last Filed: 12/10/17 21:54> <Canelo Lane - Last Filed: 12/10/17 22:27> - General Chief Complaint: Upper Respiratory Infection Stated Complaint: SJ Time Seen by Provider: 12/10/17 20:21 - History of Present Illness Initial Comments: This a 57-year-old female presents emergency Department chief complaint cough congestion shortness of breath. Patient states that she has been sick for several days was seen in emergency from for some her symptoms and to home. Patient states her cough is productive at times she complains that she's been wheezing and increasing shortness of breath. Denies any chest pain. Patient denies fever today which she had a 102 fever the other day. Patient denies headache, dizziness, ear pain, sore throat, nausea vomiting. (Juan Alberto Hutchins) - Related Data Home Medications Medication Instructions Recorded Confirmed rOPINIRole HCL [Requip] 3 mg PO DAILY@0800 05/05/16 12/10/17 Mirabegron [Myrbetriq] 50 mg PO DAILY@0800 05/23/17 12/10/17 Atorvastatin [Lipitor] 10 mg PO HS@199906/07/17 12/10/17 Carvedilol [Coreg] 25 mg PO BID@08,199906/07/17 12/10/17 Cholecalciferol [Vitamin D3] 1,000 unit PO DAILY@0800 06/07/17 12/10/17 Loratadine [Claritin] 10 mg PO DAILY@0806/07/17 12/10/17 Multivitamins, Thera [Multivitamin 1 tab PO DAILY@0800 06/07/17 12/10/17 (formulary)] Omeprazole 20 mg PO DAILY@0800 06/07/17 12/10/17 DULoxetine HCL [Cymbalta] 60 mg PO DAILY@0800 10/20/17 12/10/17 Levothyroxine Sodium [Synthroid] 137 mcg PO DAILY@0800 10/20/17 12/10/17 hydrALAZINE HCL [Apresoline] 50 mg PO TID@0800,1199,199910/20/17 12/10/17 Albuterol Inhaler [Ventolin Hfa 1 - 2 puff INHALATION RT-Q4H PRN 10/24/17 Inhaler] hydrOXYzine PAMOATE 25 mg PO TID 11/11/17 12/10/17 Azithromycin [Zithromax Z-pack] See Taper PO DAILY 12/10/17 12/10/17 Divalproex ER [Depakote ER] 1,000 mg PO HS 12/10/17 12/10/17 Ibuprofen [Motrin] 800 mg PO TID 12/10/17 12/10/17 Rivaroxaban [Xarelto Starter Pack] See Taper PO DIRECTED 12/10/17 12/10/17 rOPINIRole HCL [Requip] 4 mg PO HS@199912/10/17 12/10/17 traZODone HCL 200 mg PO HS 12/10/17 12/10/17 Previous Rx's Medication Instructions Recorded Rivaroxaban [Xarelto] 20 mg PO DAILY 90 Days #90 tab 11/18/17 Allergies Allergy/AdvReac Type Severity Reaction Status Date / Time buspirone [From BuSpar] Allergy Unknown Verified 12/07/17 09:30 haloperidol [From Haldol] Allergy Swelling Verified 12/07/17 09:30 iodine Allergy Swelling Verified 12/07/17 09:30 Penicillins Allergy Swelling Verified 12/07/17 09:30 prochlorperazine Allergy Rash/Hives Verified 12/07/17 09:30 Sulfa (Sulfonamide Allergy Rash/Hives Verified 12/07/17 09:30 Antibiotics) Tetanus Vaccines and Toxoid Allergy Rash/Hives Verified 12/07/17 09:30 [Tetanus Vaccines & Toxoid] trifluoperazine HCl Allergy Unknown Verified 12/07/17 09:30 [From Stelazine] Review of Systems ROS Other: All systems not noted in ROS Statement are negative. <Juan Alberto Hutchins - Last Filed: 12/10/17 21:54> ROS Other: All systems not noted in ROS Statement are negative. <Canelo Lane - Last Filed: 12/10/17 22:27> ROS Statement: Those systems with pertinent positive or pertinent negative responses have been documented in the HPI. Past Medical History Past Medical History: Asthma, Diabetes Mellitus, GERD/Reflux, Hyperlipidemia, Hypertension, Musculoskeletal Disorder, Osteoarthritis (OA), Pulmonary Embolus ( PE), Thyroid Disorder Additional Past Medical History / Comment(s): Recently diagnosed with asthma and recently treated for bronchitis with antibiotic, diet controlled diabetes, morbid obesity, hypothyroid, UTI, RLS, anemia, lumbar pain with herniated discs. History of Any Multi-Drug Resistant Organisms: None Reported Past Surgical History: Bariatric Surgery, Hernia Repair, Orthopedic Surgery Additional Past Surgical History / Comment(s): Total Right knee replacement, 3 abdominal hernia repairs, left hip repair Past Anesthesia/Blood Transfusion Reactions: No Reported Reaction Past Psychological History: Anxiety, Bipolar, Depression Smoking Status: Never smoker Past Alcohol Use History: None Reported Past Drug Use History: None Reported - Past Family History Mother Family Medical History: Cancer Additional Family Medical History / Comment(s): lung cancer Father Additional Family Medical History / Comment(s): "my dad from a blood clot that traveled from his leg to his lung and also caused a heart attack." Brother(s) Family Medical History: Diabetes Mellitus Sister(s) Additional Family Medical History / Comment(s): "her heart races too fast" <Juan Alberto Hutchins - Last Filed: 12/10/17 21:54> General Exam Limitations: no limitations General appearance: alert, in no apparent distress Head exam: Present: atraumatic, normocephalic, normal inspection Eye exam: Present: normal appearance, PERRL, EOMI. Absent: scleral icterus, conjunctival injection, periorbital swelling ENT exam: Present: normal exam, normal oropharynx, mucous membranes moist, TM's normal bilaterally, normal external ear exam Neck exam: Present: normal inspection, full ROM. Absent: tenderness, meningismus, lymphadenopathy Respiratory exam: Present: respiratory distress (Mild), wheezes. Absent: normal lung sounds bilaterally, rales, rhonchi, stridor Cardiovascular Exam: Present: regular rate, normal rhythm, normal heart sounds. Absent: systolic murmur, diastolic murmur, rubs, gallop, clicks GI/Abdominal exam: Present: soft, normal bowel sounds. Absent: distended, tenderness, guarding, rebound, rigid <Juan Alberto Hutchins M - Last Filed: 12/10/17 21:54> Vital Signs 12/10/17 12/10/17 12/10/17 20:30 21:38 21:54 Temperature 98.4 F Pulse Rate 82 81 85 Respiratory 18 Rate Blood Pressure 122/86 O2 Sat by Pulse 93 L Oximetry Medical Decision Making - Lab Data Result diagrams: 12/10/17 20:54 12/10/17 20:54 <Juan Alberto Hutchins - Last Filed: 12/10/17 21:54> - Lab Data Result diagrams: 12/10/17 20:54 12/10/17 20:54 <Canelo Lane - Last Filed: 12/10/17 22:27> - Medical Decision Making Patient reevaluated by myself, Dr. Lane. Patient has rales left greater than right-sided. Patient otherwise resting comfortably in bed. Chest x-ray and lab reviewed. Patient updated on results and plan. Case was discussed in detail with practitioner Anahi gresham, who will admit for Dr. Abraham, covering for Dr. Mendieta. (Canelo Lane) - Lab Data Lab Results 12/10/17 12/10/17 12/10/17 Range/Units 20:54 20:54 20:54 WBC 5.6 (3.8-10.6) k/uL RBC 3.29 L (3.80-5.40) m/uL Hgb 9.2 L D (11.4-16.0) gm/dL Hct 28.0 L (34.0-46.0) % MCV 85.0 (80.0-100.0) fL MCH 28.0 (25.0-35.0) pg MCHC 33.0 (31.0-37.0) g/dL RDW 13.3 (11.5-15.5) % Plt Count 257 (150-450) k/uL Neutrophils % 80 % Lymphocytes % 11 % Monocytes % 4 % Eosinophils % 1 % Basophils % 0 % Neutrophils # 4.4 (1.3-7.7) k/uL Lymphocytes # 0.6 L (1.0-4.8) k/uL Monocytes # 0.2 (0-1.0) k/uL Eosinophils # 0.1 (0-0.7) k/uL Basophils # 0.0 (0-0.2) k/uL PT (9.0-12.0) sec INR (<1.2) APTT (22.0-30.0) sec Sodium 144 (137-145) mmol/L Potassium 3.8 (3.5-5.1) mmol/L Chloride 108 H (98-107) mmol/L Carbon Dioxide 21 L (22-30) mmol/L Anion Gap 15 mmol/L BUN 27 H (7-17) mg/dL Creatinine 1.10 H (0.52-1.04) mg/dL Est GFR (CKD-EPI)AfAm 65 (>60 ml/min/1.73 sqM) Est GFR (CKD-EPI)NonAf 56 (>60 ml/min/1.73 sqM) Glucose 104 H (74-99) mg/dL Calcium 8.7 (8.4-10.2) mg/dL Magnesium 2.3 (1.6-2.3) mg/dL Total Bilirubin 0.3 (0.2-1.3) mg/dL AST 32 (14-36) U/L ALT 21 (9-52) U/L Alkaline Phosphatase 62 (38-126) U/L Total Creatine Kinase 261 H (30-135) U/L CK-MB (CK-2) 1.9 (0.0-2.4) ng/mL CK-MB (CK-2) Rel Index 0.7 Troponin I <0.012 (0.000-0.034) ng/mL NT-Pro-B Natriuret Pep pg/mL Total Protein 5.5 L (6.3-8.2) g/dL Albumin 3.0 L (3.5-5.0) g/dL Influenza Type A RNA (Not Detectd) Influenza Type B (PCR) (Not Detectd) 12/10/17 12/10/17 12/10/17 Range/Units 20:54 20:54 20:54 WBC (3.8-10.6) k/uL RBC (3.80-5.40) m/uL Hgb (11.4-16.0) gm/dL Hct (34.0-46.0) % MCV (80.0-100.0) fL MCH (25.0-35.0) pg MCHC (31.0-37.0) g/dL RDW (11.5-15.5) % Plt Count (150-450) k/uL Neutrophils % % Lymphocytes % % Monocytes % % Eosinophils % % Basophils % % Neutrophils # (1.3-7.7) k/uL Lymphocytes # (1.0-4.8) k/uL Monocytes # (0-1.0) k/uL Eosinophils # (0-0.7) k/uL Basophils # (0-0.2) k/uL PT 9.3 (9.0-12.0) sec INR 0.9 (<1.2) APTT 27.8 (22.0-30.0) sec Sodium (137-145) mmol/L Potassium (3.5-5.1) mmol/L Chloride (98-107) mmol/L Carbon Dioxide (22-30) mmol/L Anion Gap mmol/L BUN (7-17) mg/dL Creatinine (0.52-1.04) mg/dL Est GFR (CKD-EPI)AfAm (>60 ml/min/1.73 sqM) Est GFR (CKD-EPI)NonAf (>60 ml/min/1.73 sqM) Glucose (74-99) mg/dL Calcium (8.4-10.2) mg/dL Magnesium (1.6-2.3) mg/dL Total Bilirubin (0.2-1.3) mg/dL AST (14-36) U/L ALT (9-52) U/L Alkaline Phosphatase (38-126) U/L Total Creatine Kinase (30-135) U/L CK-MB (CK-2) (0.0-2.4) ng/mL CK-MB (CK-2) Rel Index Troponin I (0.000-0.034) ng/mL NT-Pro-B Natriuret Pep 427 pg/mL Total Protein (6.3-8.2) g/dL Albumin (3.5-5.0) g/dL Influenza Type A RNA Not Detected (Not Detectd) Influenza Type B (PCR) Not Detected (Not Detectd) Disposition <Juan Alberto Hutchins - Last Filed: 12/10/17 21:54> <Canelo Lane - Last Filed: 12/10/17 22:27> Clinical Impression: Bilateral pneumonia Disposition: ADMITTED IP TO THIS HOSP Condition: Fair Referrals: Libra Umaña MD [Primary Care Provider] - 1-2 days
[2017-12-10 21:36] LABS: Creatine Kinase MB 1.9 ng/mL (0.0-2.4); Troponin I <0.012 ng/mL (0.000-0.034)
--- NOTE | 2017-12-10 21:37 | XR ---
EXAMINATION TYPE: XR chest 2V DATE OF EXAM: 12/10/2017 COMPARISON: 12/07/2017 HISTORY: Difficulty breathing TECHNIQUE: Frontal and lateral views of the chest are obtained. FINDINGS: There are patchy bilateral lower lobe pulmonary airspace infiltrates. Pulmonary vascularit y is difficult to evaluate because of the lung disease. There is probably pulmonary vascular congesti on. Heart appears enlarged. There are chest leads. Thoracic aorta is atheromatous. IMPRESSION: There are new bilateral lower lobe pulmonary infiltrates compared to recent exam and con sistent with bronchopneumonia. Heart failure is possible.
[2017-12-10] MEDS ORDERED: PNEUMONIA PROTOCOL UTILIZED 1 EACH MISC PO PRN (21:56)
[2017-12-10] MEDS ORDERED: LEVOFLOXACIN 750MG-D5W PMX 750 MG in DEXTROSE/WATER 1 150ML.BAG IVPB STA (21:56)
[2017-12-10] MEDS ORDERED: AZTREONAM 2 GM in SODIUM CHLORIDE 0.9% 100 ML IVPB STA (21:59)
[2017-12-10 23:54] VITALS: BMI 59.9
[2017-12-11] MEDS ORDERED: IBUPROFEN 800 MG TAB PO PRN (00:19)
[2017-12-11] MEDS ORDERED: rOPINIRole HCL 4 MG TABLET PO SCH (00:30)
[2017-12-11] MEDS: guaiFENesin-Coden 100-10MG/5ML 10 ML CUP PO PRN ×2 (00:39→06:01)
[2017-12-11] MEDS: IPRATROPIUM-ALBUTEROL 3 ML NEB INHALATION PRN ×5 (01:04→19:43)
[2017-12-11] MEDS: AZTREONAM 2 GM in SODIUM CHLORIDE 0.9% 100 ML IVPB SCH ×2 (08:34→17:25)
[2017-12-11] MEDS: CARVEDILOL 12.5 MG TAB PO SCH ×2 (11:36→20:28)
[2017-12-11] MEDS: DULoxetine HCL 60 MG CAPSULE.DR PO SCH (11:36)
[2017-12-11] MEDS: LEVOTHYROXINE 137 MCG TAB PO SCH (11:37)
[2017-12-11] MEDS: LORATADINE 10 MG TAB PO SCH (11:37)
[2017-12-11] MEDS: PANTOPRAZOLE 40 MG TABLET PO SCH (11:37)
[2017-12-11] MEDS: hydrALAZINE HCL 50 MG TAB PO SCH ×2 (11:38→20:29)
[2017-12-11] MEDS: RIVAROXABAN 20 MG TAB PO SCH (11:38)
[2017-12-11] MEDS: NON-FORMULARY DRUG (Mirabegron [Myrbetriq] 50 MG) PO SCH (11:41)
[2017-12-11] MEDS: HYDROcodone/APAP 5-325MG 1 EACH TAB PO PRN ×2 (11:44→20:28)
[2017-12-11] MEDS: ALBUTEROL NEBULIZED 2.5 MG/3 ML INHALATION PRN ×2 (15:17→23:12)
--- NOTE | 2017-12-11 15:23 | XR ---
EXAMINATION TYPE: XR chest 2V DATE OF EXAM: 12/11/2017 COMPARISON: Prior chest x-ray 12/10/2017 HISTORY: Pneumonia, hypertension TECHNIQUE: Frontal and lateral views of the chest are obtained. FINDINGS: The heart is enlarged. There is prominence of the central pulmonary vascularity, airspace disease is present in the perihilar region, left hemidiaphragm appears obscured although patient is r otated. There is no pneumothorax. Pulmonary artery thought to be enlarged. IMPRESSION: Correlate for congestive heart failure, findings similar to prior exam. There may be und erlying pulmonary artery hypertension. Follow-up is recommended. Pneumonia not excluded.
[2017-12-11] MEDS ORDERED: DOXYCYCLINE 50 MG CAP PO STA (17:43)
--- NOTE | 2017-12-11 18:03 | P.HPIM ---
History of Present Illness H&P Date: 12/11/17 This is a pleasant 57-year-old female with past medical history as below who presents with cough and dyspnea or several days duration associated with phlegm and found to have wheezing doing the emergency room duct patient denies any chest pain no fever and her study howeverhe has fever over 1 or 2 as per documentation, and the emergency room patient has chest x-ray which showed new bilateral lower lobe pulmonary infiltrates compatible with bronchopneumonia Review of Systems 10 point systemic review are negative except what is mentioned in the HPI above Past Medical History Past Medical History: Asthma, Diabetes Mellitus, GERD/Reflux, Hyperlipidemia, Hypertension, Musculoskeletal Disorder, Osteoarthritis (OA), Pulmonary Embolus ( PE), Thyroid Disorder Additional Past Medical History / Comment(s): Recently diagnosed with asthma and recently treated for bronchitis with antibiotic, diet controlled diabetes, morbid obesity, hypothyroid, UTI, RLS, anemia, lumbar pain with herniated discs. History of Any Multi-Drug Resistant Organisms: None Reported Past Surgical History: Bariatric Surgery, Hernia Repair, Orthopedic Surgery Additional Past Surgical History / Comment(s): Total Right knee replacement, 3 abdominal hernia repairs, left hip repair Past Anesthesia/Blood Transfusion Reactions: No Reported Reaction Past Psychological History: Anxiety, Bipolar, Depression Additional Psychological History / Comment(s): Borderline personality disorder. Pt states her mental health is stable at this time. She states she sees a psychiatrist at [facility] and has a case making machine operator there. Pt has a legal gaurdian, Hang Hernandez. Pt states she currently resides at [facility] but she and a friend are in the process of relocating to independent living and legal borges is in aggreement with this plan. She cannot drive, she either takes the bus to [place] or legal gazuleymadian drives her to [employer]. She uses a cane or a walker to ambulate. She has a glucometer but no longer has to monitor her blood sugars. She has in the past had suicidal thoughts and plan and also homicidal thoughts but denies these being a current problem. Smoking Status: Never smoker Past Alcohol Use History: None Reported Past Drug Use History: None Reported - Past Family History Mother Family Medical History: Cancer Additional Family Medical History / Comment(s): lung cancer Father Additional Family Medical History / Comment(s): "my dad from a blood clot that traveled from his leg to his lung and also caused a heart attack." Brother(s) Family Medical History: Diabetes Mellitus Sister(s) Additional Family Medical History / Comment(s): "her heart races too fast" Medications and Allergies Home Medications Medication Instructions Recorded Confirmed Type rOPINIRole HCL [Requip] 3 mg PO DAILY@0800 05/05/16 12/10/17 History Mirabegron [Myrbetriq] 50 mg PO DAILY@0805/23/17 12/10/17 History Atorvastatin [Lipitor] 10 mg PO HS@199906/07/17 12/10/17 History Carvedilol [Coreg] 25 mg PO BID@799,199906/07/17 12/10/17 History Cholecalciferol [Vitamin D3] 1,000 unit PO DAILY@0800 06/07/17 12/10/17 History Loratadine [Claritin] 10 mg PO DAILY@0800 06/07/17 12/10/17 History Multivitamins, Thera [Multivitamin 1 tab PO DAILY@0800 06/07/17 12/10/17 History (formulary)] Omeprazole 20 mg PO DAILY@0800 06/07/17 12/10/17 History DULoxetine HCL [Cymbalta] 60 mg PO DAILY@0800 10/20/17 12/10/17 History Levothyroxine Sodium [Synthroid] 137 mcg PO DAILY@0800 10/20/17 12/10/17 History hydrALAZINE HCL [Apresoline] 50 mg PO TID@0800,1199,199910/20/17 12/10/17 History Albuterol Inhaler [Ventolin Hfa 1 - 2 puff INHALATION RT-Q4H PRN 10/24/17 History Inhaler] hydrOXYzine PAMOATE 25 mg PO TID 11/11/17 12/10/17 History Rivaroxaban [Xarelto] 20 mg PO DAILY 90 Days #90 tab 11/18/17 12/10/17 Rx Azithromycin [Zithromax Z-pack] See Taper PO DAILY 12/10/17 12/10/17 History Divalproex ER [Depakote ER] 1,000 mg PO HS 12/10/17 12/10/17 History Ibuprofen [Motrin] 800 mg PO TID 12/10/17 12/10/17 History Rivaroxaban [Xarelto Starter Pack] See Taper PO DIRECTED 12/10/17 12/10/17 History rOPINIRole HCL [Requip] 4 mg PO HS@199912/10/17 12/10/17 History traZODone HCL 200 mg PO HS 12/10/17 12/10/17 History Allergies Allergy/AdvReac Type Severity Reaction Status Date / Time buspirone [From BuSpar] Allergy Unknown Verified 12/07/17 09:30 haloperidol [From Haldol] Allergy Swelling Verified 12/07/17 09:30 iodine Allergy Swelling Verified 12/07/17 09:30 Penicillins Allergy Swelling Verified 12/07/17 09:30 prochlorperazine Allergy Rash/Hives Verified 12/07/17 09:30 Sulfa (Sulfonamide Allergy Rash/Hives Verified 12/07/17 09:30 Antibiotics) Tetanus Vaccines and Toxoid Allergy Rash/Hives Verified 12/07/17 09:30 [Tetanus Vaccines & Toxoid] trifluoperazine HCl Allergy Unknown Verified 12/07/17 09:30 [From Stelazine] Physical Exam Vitals: Vital Signs Temp Pulse Pulse Resp BP BP Pulse Ox 12/11/17 15:31 92 12/11/17 15:17 90 12/11/17 15:00 97.9 F 90 16 119/70 94 L 12/11/17 13:59 89 12/11/17 13:48 88 12/11/17 09:27 18 12/11/17 09:12 98.3 F 86 19 154/81 94 L 12/11/17 06:59 84 12/11/17 06:49 80 12/11/17 04:48 88 12/11/17 04:37 84 12/11/17 01:13 84 12/11/17 01:04 84 12/11/17 00:00 17 12/10/17 23:58 97.3 F L 82 17 129/71 94 L 12/10/17 22:56 98.3 F 80 18 133/66 98 12/10/17 21:54 85 12/10/17 21:38 81 12/10/17 21:20 20 12/10/17 20:30 98.4 F 82 18 122/86 93 L Intake and Output 12/11/17 12/11/17 12/11/17 06:59 14:59 22:59 Intake Total 1300 Balance 1300 Intake: Oral 1300 Other: Voiding Method Toilet # Voids 3 5 Weight 163.293 kg Constitutional: No acute distress, conversant, pleasant Eyes: Anicteric sclerae, moist conjunctiva, no lid-lag PERRLA ENMT: NC/AT Oropharynx clear, no erythema, exudates Neck: Supple, FROM, no masses, or JVD No carotid bruits No thyromegaly Lungs: Clear to auscultation Clear to percussion Normal respiratory effort, no accessory muscle use Cardiovascular: Heart regular in rate and rhythm, No murmurs, gallops, or rubs No peripheral edema Abdominal: Soft Nontender, no guarding, rebound or rigidity Abdomen moving with respiration Normoactive bowel sounds No hepatomegaly, No splenomegaly No palpable mass No abdominal wall hernia noted Skin: Normal temperature, tone, texture, turgor No induration No subcutaneous nodules No rash, lesions No ulcers Extremities: No digital cyanosis No clubbing Pedal pulses intact and symmetrical Radial pulses intact and symmetrical Normal gait and station No calf tenderness Psychiatric: Alert and oriented to person, place and time Appropriate affect Intact judgement Neuro: Muscles Strength 5/5 in all 4 extremities Sensation to light touch grossly present throughout Cranial nerves II-XII grossly intact No focal sensory deficits Results CBC & Chem 7: 12/10/17 20:54 12/10/17 20:54 Labs: Abnormal Lab Results - Last 24 Hours (Table) 12/10/17 12/10/17 12/10/17 Range/Units 20:54 20:54 20:54 RBC 3.29 L (3.80-5.40) m/uL Hgb 9.2 L D (11.4-16.0) gm/dL Hct 28.0 L (34.0-46.0) % Lymphocytes # 0.6 L (1.0-4.8) k/uL Chloride 108 H (98-107) mmol/L Carbon Dioxide 21 L (22-30) mmol/L BUN 27 H (7-17) mg/dL Creatinine 1.10 H (0.52-1.04) mg/dL Glucose 104 H (74-99) mg/dL Total Creatine Kinase 261 H (30-135) U/L Total Protein 5.5 L (6.3-8.2) g/dL Albumin 3.0 L (3.5-5.0) g/dL Thrombosis Risk Factor Assmnt - Choose All That Apply Each Factor Represents 1 point: Age 41-60 years, Obesity (BMI >25), Serious lung disease incl. pneumonia (< 1month), Swollen legs (current) Thrombosis Risk Factor Assessment Total Risk Factor Score: 4 Thrombosis Risk Factor Assessment Level: Moderate Risk Assessment and Plan Plan: 1 pneumonia without patient she has bilateral pneumonia, no leukocytosis Patient is a started on aztreonam and emergency room because she is ALLERGIC to penicillin, Patient's reports several days of gastroenteritis-like picture, with diarrhea and vomiting last episode of vomiting and was about 2 days ago after the patient started having her respiratory symptoms most likely the patient suffered from aspiration pneumonia. Patient denies any signs and symptoms of upper respiratory tract infection in the last few days Patient diarrhea improved and this morning she has normal bowel movements. No abdominal pain Start clindamycin to cover and unaerobes and positive bacteria. DC aztreonam 2. Hyperlipidemia continue with statin 3. Hypertension continue with Coreg 25 mg twice a day plus hydro-less than 50 mg 3 times a day 4. Hypothyroidism continue with levothyroxine
[2017-12-11] MEDS: CLINDAMYCIN 300 MG in DEXTROSE 5% IN WATER 50 ML IVPB SCH ×2 (19:49)
[2017-12-11] MEDS ORDERED: CARVEDILOL 12.5 MG TAB PO SCH (20:00)
[2017-12-11] MEDS: ATORVASTATIN 10 MG TAB PO SCH (20:28)
[2017-12-11] MEDS: DIVALPROEX ER 500 MG TAB.ER.24H PO SCH (20:29)
[2017-12-11] MEDS: rOPINIRole HCL 4 MG TABLET PO SCH (20:30)
[2017-12-11] MEDS ORDERED: LEVOFLOXACIN 750 MG TAB PO SCH (21:00)
[2017-12-11] MEDS ORDERED: LEVOFLOXACIN 750MG-D5W PMX 750 MG in DEXTROSE/WATER 1 150ML.BAG IVPB SCH (23:00)
[2017-12-12] MEDS: CLINDAMYCIN 300 MG in DEXTROSE 5% IN WATER 50 ML IVPB SCH ×6 (00:48→12:00)
[2017-12-12] MEDS: IPRATROPIUM-ALBUTEROL 3 ML NEB INHALATION PRN ×3 (03:10→11:27)
[2017-12-12] MEDS ORDERED: FUROSEMIDE 10 MG/ML 4 ML VIAL IV STA (04:46)
[2017-12-12 07:17] LABS: HCT 29.4 % (34.0-46.0); HGB 9.5 gm/dL (11.4-16.0); Hypochromasia Slight; MCH 28.4 pg (25.0-35.0); MCHC 32.4 g/dL (31.0-37.0); MCV 87.4 fL (80.0-100.0); Mean Platelet Volume 8.5; Platelet Count 302 k/uL (150-450); RBC 3.36 m/uL (3.80-5.40); RDW 13.7 % (11.5-15.5); WBC 4.1 k/uL (3.8-10.6)
[2017-12-12] MEDS: SYMBICORT 160-4.5 MCG INHALER INHALATION SCH ×2 (07:23→19:54)
[2017-12-12 07:37] LABS: Anion Gap 13 mmol/L; Blood Urea Nitrogen 20 mg/dL (7-17); Carbon Dioxide 24 mmol/L (22-30); Chloride 104 mmol/L (98-107); Glucose 88 mg/dL (74-99); Potassium 4.4 mmol/L (3.5-5.1); Sodium 141 mmol/L (137-145)
[2017-12-12] MEDS ORDERED: DULoxetine HCL 60 MG CAPSULE.DR PO SCH (08:00)
[2017-12-12] MEDS ORDERED: LORATADINE 10 MG TAB PO SCH (08:00)
[2017-12-12] MEDS ORDERED: Mirabegron [Myrbetriq] 50 MG PO SCH (08:00)
[2017-12-12] MEDS ORDERED: PANTOPRAZOLE 40 MG TABLET PO SCH (08:00)
[2017-12-12] MEDS ORDERED: LEVOTHYROXINE 137 MCG TAB PO SCH (08:00)
[2017-12-12] MEDS: NON-FORMULARY DRUG (Mirabegron [Myrbetriq] 50 MG) PO SCH (08:53)
--- NOTE | 2017-12-12 08:57 | XR ---
EXAMINATION TYPE: XR chest 2V DATE OF EXAM: 12/12/2017 COMPARISON: 12/11/2017 TECHNIQUE: PA and lateral views submitted. HISTORY: Shortness of breath FINDINGS: Diffuse interstitial pattern with cardiomegaly and bilateral infiltrate and small left effusion. Find ings stable. No sizable pneumothorax. IMPRESSION: 1. Stable diffuse airspace disease with left-sided pleural effusion. Correlate for CHF versus pneumon ia.
[2017-12-12] MEDS: CARVEDILOL 12.5 MG TAB PO SCH ×2 (08:59→20:18)
[2017-12-12] MEDS: hydrALAZINE HCL 50 MG TAB PO SCH ×3 (09:00→20:18)
[2017-12-12] MEDS ORDERED: RIVAROXABAN 20 MG TAB PO SCH (09:00)
[2017-12-12] MEDS: PANTOPRAZOLE 40 MG TABLET PO SCH (09:02)
[2017-12-12] MEDS: LEVOTHYROXINE 137 MCG TAB PO SCH (09:03)
[2017-12-12] MEDS: DULoxetine HCL 60 MG CAPSULE.DR PO SCH (09:03)
[2017-12-12] MEDS: RIVAROXABAN 20 MG TAB PO SCH (09:04)
[2017-12-12] MEDS: LORATADINE 10 MG TAB PO SCH (09:04)
--- NOTE | 2017-12-12 10:13 | P.PN ---
Subjective Progress Note Date: 12/12/17 Principal diagnosis: \This is a pleasant 57-year-old female with past medical history as below who presents with cough and dyspnea or several days duration associated with phlegm and found to have wheezing doing the emergency room duct patient denies any chest pain no fever and her study howeverhe has fever over 1 or 2 as per documentation, and the emergency room patient has chest x-ray which showed new bilateral lower lobe pulmonary infiltrates compatible with bronchopneumonia subjective Patient is seen and examined at bedside Known new events this morning No any more chest pain, no fever, no change in bowel or urinary habits Patient's once her visatril medication back because she said that the exit for anxiety She accepts to stop the loratadine and to hold the trazodone for sleep problem This morning patient had an episode of shortness of breath, repeat chest x-ray shows stable pneumonia left pleural effusion possible CHF We will check proBNP, get old electronic records echo results available from this is REVIEW OF SYSTEMS: CARDIOVASCULAR: No chest pain, no orthopnea, no PND, no palpitations. PULMONARY: Denied any shortness of breath. No cough or hemoptysis. GASTROINTESTINAL: No diarrhea, nausea or vomiting. No abdominal pain. Normoactive bowel sounds. NEUROLOGIC: No headaches, no weakness, no numbness. Medications were reviewed. PHYSICAL EXAMINATION: VITAL SIGNS: Temperature [], pulse of [], respiratory rate of [], blood pressure is []. Saturating at []% on []. GENERAL: The patient is alert and oriented x3, not in any acute distress. Well developed, well nourished. HEENT: Pupils are round and equally reacting to light. EOMI. No scleral icterus. No conjunctival pallor. Normocephalic, atraumatic. No pharyngeal erythema. No thyromegaly. CARDIOVASCULAR: S1 and S2 present. No murmurs, rubs, or gallops. PULMONARY: Chest is clear to auscultation, no wheezing or crackles. ABDOMEN: Soft, nontender, nondistended, normoactive bowel sounds. No palpable organomegaly. MUSCULOSKELETAL: No joint swelling or deformity. EXTREMITIES: No cyanosis, clubbing, or pedal edema. NEUROLOGICAL: Gross neurological examination did not reveal any focal deficits. SKIN: No rashes. LABORATORY DATA: []. Assessment and plan 1 pneumonia without patient she has bilateral pneumonia, no leukocytosis Patient most likely has aspiration pneumonia, continue with the clindamycin, blood culture are negative so far, respiratory culture are not done because patient has tried We will check proBNP, dense echo results from the electronic records available 2. Hyperlipidemia continue with statin 3. Hypertension continue with Coreg 25 mg twice a day plus hydro-less than 50 mg 3 times a day 4. Hypothyroidism continue with levothyroxine Objective - Vital Signs Vital signs: Vital Signs Temp 98.7 F 12/12/17 08:30 Pulse 84 12/12/17 08:30 Resp 16 12/12/17 09:23 BP 151/87 12/12/17 08:30 Pulse Ox 96 12/12/17 09:23 Intake & Output 12/11/17 12/12/17 12/12/17 18:59 06:59 18:59 Intake Total 1300 600 Balance 1300 600 Intake: Intake, IV Titration 50 Amount Clindamycin 300 mg In 50 Dextrose 5% in Water 50 ml @ 100 mls/hr IVPB Q6HR [facility] Rx#:[id number] Oral 1300 550 Other: Voiding Method Toilet # Voids 5 3 1 - Labs CBC & Chem 7: 12/12/17 06:56 12/12/17 06:56 Labs: Abnormal Lab Results - Last 24 Hours (Table) 12/12/17 12/12/17 Range/Units 06:56 06:56 RBC 3.36 L (3.80-5.40) m/uL Hgb 9.5 L (11.4-16.0) gm/dL Hct 29.4 L (34.0-46.0) % BUN 20 H (7-17) mg/dL Microbiology - Last 24 Hours (Table) 12/10/17 22:50 Blood Culture - Preliminary Blood No Growth after 24 hours
[2017-12-12] MEDS: HYDROcodone/APAP 5-325MG 1 EACH TAB PO PRN (16:29)
--- NOTE | 2017-12-12 17:41 | P.CNPUL ---
History of Present Illness Consult date: 12/12/17 Requesting physician: Rc Abraham Reason for consult: dyspnea Chief complaint: Increasing shortness of breath, fever, wheezing, chest congestion History of present illness: Magda is a 57-year-old white female patient of Dr. Umaña, who also sees Dr. Means in the pulmonary office for her history of bronchial asthma and recent history of pulmonary embolism, presented to the emergency department on 2017 at 2019 with complaints of increasing cough, chest congestion, shortness of breath, and wheezing. She was initially seen in the emergency room on Saturday12/07/2017 with complaints of shortness of breath, fever of 102.4F. She was told she had a viral upper respiratory infection, was advised to take some Tylenol and Motrin, and was sent home. Influenza screen at that time was negative. However by Saturday her dyspnea became increasingly worse, she started having nausea, vomiting and diarrhea, her fever persisted, and hence she came back to the emergency room for further evaluation and treatment. Her influenza screen was again negative. White count was within normal limits at 5.6, hemoglobin of 9.2, sodium is 144, potassium is 3.8, chloride is 108, carbon dioxide is 21, B1 is 27, creatinine is 1.10. Troponin was negative 1, proBNP was 427, and on today's labs it was 315. Chest x-ray completed in the emergency room on 12/10/2017 showed new bilateral lower lobe pulmonary infiltrates consistent with bronchopneumonia. There was also pulmonary vascular congestion noted. Chest x-ray from 12/11/2017 and 12/12/2017 showed similar findings. Patient does not wear oxygen at baseline, does not have any inhalers or nebulizers at home, but is currently on supplemental oxygen at 2 L per nasal cannula with O2 sat at 94%. She has been afebrile during this admission. Her nausea, vomiting and diarrhea have resolved. She is complaining of not having any appetite. Lung sounds are positive for scattered wheezes. She states she noticed slightly increased edema in her bilateral lower extremities. Denies any chest pain. Has a cough, however unable to produce any sputum. Patient was hospitalized in October with unprovoked pulmonary embolism, was placed on Xarelto on which she remains. She has a family history of thromboembolic disease in her father, therefore she will require lifelong anticoagulation. She has a remote history of bronchial asthma as a young adult, however office PFT was nondiagnostic of obstructive disease hence she was not treated with any bronchodilators. Her office PFT showed mostly restrictive lung disease. She is a lifetime nonsmoker. Other medical history includes diabetes, obesity, GERD without esophagitis, hyperlipidemia, hypothyroidism, osteoarthritis, chronic lumbar pain, and borderline personality disorder. She has a family history of thromboembolic disease in her father. Patient has a legal guardian, Hang Blankenship. She lives alone, manages her activities of daily living independently, ambulates with a walker, and she states she is fairly active on a regular basis. Patient was started on oral antibiotics in the form of doxycycline, Symbicort, nebulized treatments, and admitted for further management. Review of Systems All systems: negative Constitutional: Denies chills, Denies fever Eyes: denies blurred vision, denies pain Ears, nose, mouth and throat: Denies headache, Denies sore throat Cardiovascular: Reports edema, Denies chest pain, Denies shortness of breath Respiratory: Reports congestion, Reports dyspnea, Denies cough Gastrointestinal: Denies abdominal pain, Denies diarrhea, Denies nausea, Denies vomiting Genitourinary: Denies dysuria, Denies hematuria Musculoskeletal: Denies myalgias Integumentary: Denies pruritus, Denies rash Neurological: Denies numbness, Denies weakness Psychiatric: Denies anxiety, Denies depression Endocrine: Denies fatigue, Denies weight change Past Medical History Past Medical History: Asthma, Diabetes Mellitus, GERD/Reflux, Hyperlipidemia, Hypertension, Musculoskeletal Disorder, Osteoarthritis (OA), Pulmonary Embolus ( PE), Thyroid Disorder Additional Past Medical History / Comment(s): Recently diagnosed with asthma and recently treated for bronchitis with antibiotic, diet controlled diabetes, morbid obesity, hypothyroid, UTI, RLS, anemia, lumbar pain with herniated discs. History of Any Multi-Drug Resistant Organisms: None Reported Past Surgical History: Bariatric Surgery, Hernia Repair, Orthopedic Surgery Additional Past Surgical History / Comment(s): Total Right knee replacement, 3 abdominal hernia repairs, left hip repair Past Anesthesia/Blood Transfusion Reactions: No Reported Reaction Past Psychological History: Anxiety, Bipolar, Depression Additional Psychological History / Comment(s): Borderline personality disorder. Pt states her mental health is stable at this time. She states she sees a psychiatrist at [facility] and has a case therapist there. Pt has a legal brennandian, Hang Hernandez. Pt states she currently resides at [facility] but she and a friend are in the process of relocating to independent living and legal jony is in aggreement with this plan. She cannot drive, she either takes the bus to appts or legal jony drives her to appts. She uses a cane or a walker to ambulate. She has a glucometer but no longer has to monitor her blood sugars. She has in the past had suicidal thoughts and plan and also homicidal thoughts but denies these being a current problem. Smoking Status: Never smoker Past Alcohol Use History: None Reported Past Drug Use History: None Reported - Past Family History Mother Family Medical History: Cancer Additional Family Medical History / Comment(s): lung cancer Father Additional Family Medical History / Comment(s): "my dad from a blood clot that traveled from his leg to his lung and also caused a heart attack." Brother(s) Family Medical History: Diabetes Mellitus Sister(s) Additional Family Medical History / Comment(s): "her heart races too fast" Medications and Allergies Home Medications Medication Instructions Recorded Confirmed Type rOPINIRole HCL [Requip] 3 mg PO DAILY@0800 05/05/16 12/10/17 History Mirabegron [Myrbetriq] 50 mg PO DAILY@79905/23/17 12/10/17 History Atorvastatin [Lipitor] 10 mg PO HS@199906/07/17 12/10/17 History Carvedilol [Coreg] 25 mg PO BID@06/07/17 12/10/17 History Cholecalciferol [Vitamin D3] 1,000 unit PO DAILY@79906/07/17 12/10/17 History Loratadine [Claritin] 10 mg PO DAILY@79906/07/17 12/10/17 History Multivitamins, Thera [Multivitamin 1 tab PO DAILY@79906/07/17 12/10/17 History (formulary)] Omeprazole 20 mg PO DAILY@0800 06/07/17 12/10/17 History DULoxetine HCL [Cymbalta] 60 mg PO DAILY@79910/20/17 12/10/17 History Levothyroxine Sodium [Synthroid] 137 mcg PO DAILY@0800 10/20/17 12/10/17 History hydrALAZINE HCL [Apresoline] 50 mg PO TID@0800,1200,199910/20/17 12/10/17 History Albuterol Inhaler [Ventolin Hfa 1 - 2 puff INHALATION RT-Q4H PRN 10/24/17 History Inhaler] hydrOXYzine PAMOATE 25 mg PO TID 11/11/17 12/10/17 History Rivaroxaban [Xarelto] 20 mg PO DAILY 90 Days #90 tab 11/18/17 12/10/17 Rx Azithromycin [Zithromax Z-pack] See Taper PO DAILY 12/10/17 12/10/17 History Divalproex ER [Depakote ER] 1,000 mg PO HS 12/10/17 12/10/17 History Ibuprofen [Motrin] 800 mg PO TID 12/10/17 12/10/17 History Rivaroxaban [Xarelto Starter Pack] See Taper PO DIRECTED 12/10/17 12/10/17 History rOPINIRole HCL [Requip] 4 mg PO HS@199912/10/17 12/10/17 History traZODone HCL 200 mg PO HS 12/10/17 12/10/17 History Allergies Allergy/AdvReac Type Severity Reaction Status Date / Time buspirone [From BuSpar] Allergy Unknown Verified 12/07/17 09:30 haloperidol [From Haldol] Allergy Swelling Verified 12/07/17 09:30 iodine Allergy Swelling Verified 12/07/17 09:30 Penicillins Allergy Swelling Verified 12/07/17 09:30 prochlorperazine Allergy Rash/Hives Verified 12/07/17 09:30 Sulfa (Sulfonamide Allergy Rash/Hives Verified 12/07/17 09:30 Antibiotics) Tetanus Vaccines and Toxoid Allergy Rash/Hives Verified 12/07/17 09:30 [Tetanus Vaccines & Toxoid] trifluoperazine HCl Allergy Unknown Verified 12/07/17 09:30 [From Stelazine] Physical Exam Vitals: Vital Signs Temp Pulse Pulse Resp BP Pulse Ox 12/12/17 15:00 98.0 F 90 16 129/65 94 L 12/12/17 12:42 78 18 131/77 94 L 04/12/18 12:21 98.2 F 79 15 125/70 93 L 12/12/17 11:39 80 12/12/17 11:27 80 12/12/17 11:00 16 12/12/17 09:23 16 96 12/12/17 08:30 98.7 F 84 16 151/87 12/12/17 07:36 80 12/12/17 07:24 80 12/12/17 03:45 98.1 F 73 20 129/73 94 L 12/12/17 03:25 88 12/12/17 03:12 88 12/11/17 23:27 92 12/11/17 23:12 92 12/11/17 20:25 98.2 F 83 20 121/63 95 12/11/17 19:54 88 12/11/17 19:43 89 Intake and Output 12/12/17 12/12/17 12/12/17 06:59 14:59 22:59 Intake Total 250 50 Balance 250 50 Intake: Intake, IV Titration 50 50 Amount Clindamycin 300 mg In 50 50 Dextrose 5% in Water 50 ml @ 100 mls/hr IVPB Q6HR [facility] Rx#:[id number] Oral 200 Other: Voiding Method Toilet # Voids 3 3 GENERAL EXAM: Alert, pleasant 57-year-old obese white female comfortable in no apparent distress. HEAD: Normocephalic/atraumatic. EYES: Normal reaction of pupils, equal size. Conjunctiva pink, sclera white. NOSE: Clear with pink turbinates. THROAT: No erythema or exudates. NECK: No masses, no JVD, no thyroid enlargement, no adenopathy. CHEST: No chest wall deformity. Symmetrical expansion. LUNGS: Equal air entry with expiratory wheezes CVS: Regular rate and rhythm, normal S1 and S2, no gallops, no murmurs, no rubs ABDOMEN: Soft, nontender. No hepatosplenomegaly, normal bowel sounds, no guarding or rigidity. EXTREMITIES: No clubbing, no cyanosis, 2+ pulses and upper and lower extremities. There is mild 1+ nonpitting lower extremity edema noted MUSCULOSKELETAL: Muscle strength and tone normal. SPINE: No scoliosis or deformity SKIN: No rashes CENTRAL NERVOUS SYSTEM: Alert and oriented -3. No focal deficits, tone is normal in all 4 extremities. PSYCHIATRIC: Alert and oriented -3. Appropriate affect. Intact judgment and insight. Results - Laboratory Findings CBC and BMP: 12/12/17 06:56 12/12/17 06:56 PT/INR, D-dimer PT 9.3 sec (9.0-12.0) 12/10/17 20:54 INR 0.9 (<1.2) 12/10/17 20:54 Abnormal lab findings: Abnormal Labs 12/10/17 12/10/17 12/10/17 20:54 20:54 20:54 RBC 3.29 L Hgb 9.2 L D Hct 28.0 L Lymphocytes # 0.6 L Chloride 108 H Carbon Dioxide 21 L BUN 27 H Creatinine 1.10 H Glucose 104 H Total Creatine Kinase 261 H Total Protein 5.5 L Albumin 3.0 L 12/12/17 12/12/17 06:56 06:56 RBC 3.36 L Hgb 9.5 L Hct 29.4 L Lymphocytes # Chloride Carbon Dioxide BUN 20 H Creatinine Glucose Total Creatine Kinase Total Protein Albumin - Diagnostic Findings Chest x-ray: report reviewed Assessment and Plan Plan: Assessment: #1. Acute bibasilar pneumonia, possibly community-acquired, possibly aspiration related. Patient had several episodes of nausea vomiting diarrhea last week #2. Recent hospitalization for unprovoked pulmonary embolism, recent has a strong family history of thromboembolic disease in her father, was placed on Xarelto. Will likely need lifelong anticoagulation #3. Remote history of bronchial asthma, however most recent PFT in the office was negative for any evidence of obstructive disease, FEV1 was 82%, with FVC at 74% of predicted, consistent with restrictive disease. #4. Lifetime nonsmoker #5. Morbid obesity #6. Hypothyroidism, on Synthroid #7. Diabetes mellitus #8. Hyperlipidemia, hypertension #9. Osteoarthritis #10. Borderline personality disorder #11. Chronic anemia #12. History of bariatric surgery, hernia repair, total right knee replacement , left hip repair #13. Chronic back pain Plan: Continue with current antibiotic coverage, will obtain a sputum culture, if patient is able to expectorate. Continue nebulized treatments, Symbicort although the PFTs done in the office did not show any evidence of obstructive disease. Patient has no evidence of leukocytosis. Currently afebrile. Continue with Xarelto for patient's recent history of unprovoked pulmonary embolisms. Continue GI prophylaxis. Further recommendations to follow depending on the clinical course I performed a history & physical examination of the patient and discussed their management with my nurse practitioner, Joleen Colbert. I reviewed the nurse practitioner's note and agree with the documented findings and plan of care. Lung sounds are positive for expiratory wheezes. The findings and the impression was discussed with the patient. I attest to the documentation by the nurse practitioner. Time with Patient: Greater than 30
[2017-12-12] MEDS: CLINDAMYCIN 150 MG CAP PO SCH ×2 (17:54→23:31)
[2017-12-12] MEDS ORDERED: CLINDAMYCIN 150 MG CAP PO SCH (18:00)
[2017-12-12 19:57] LABS: Glucose,Whole Blood 85 mg/dL (75-99)
[2017-12-12] MEDS: DIVALPROEX ER 500 MG TAB.ER.24H PO SCH (20:17)
[2017-12-12] MEDS: ATORVASTATIN 10 MG TAB PO SCH (20:17)
[2017-12-12] MEDS: rOPINIRole HCL 4 MG TABLET PO SCH (20:18)
[2017-12-12] MEDS: hydrOXYzine HCL 25 MG TAB PO PRN (20:32)
[2017-12-12] MEDS: LORazepam 0.5 MG TAB PO PRN (21:44)
[2017-12-12] MEDS: ONDANSETRON 4 MG/2 ML VIAL IVP PRN (21:44)
[2017-12-13] MEDS: IPRATROPIUM-ALBUTEROL 3 ML NEB INHALATION PRN ×5 (00:27→18:55)
[2017-12-13] MEDS ORDERED: PANTOPRAZOLE 40 MG/10 ML VIAL IVP ONE (00:34)
[2017-12-13] MEDS: HYDROcodone/APAP 5-325MG 1 EACH TAB PO PRN ×2 (05:26→14:24)
[2017-12-13] MEDS: SYMBICORT 160-4.5 MCG INHALER INHALATION SCH ×2 (07:05→18:55)
[2017-12-13 07:57] LABS: HCT 29.5 % (34.0-46.0); HGB 9.4 gm/dL (11.4-16.0); MCH 27.6 pg (25.0-35.0); MCHC 32.1 g/dL (31.0-37.0); MCV 86.1 fL (80.0-100.0); Mean Platelet Volume 8.6; Platelet Count 338 k/uL (150-450); RBC 3.42 m/uL (3.80-5.40); RDW 13.2 % (11.5-15.5); WBC 4.7 k/uL (3.8-10.6)
[2017-12-13 08:07] LABS: Anion Gap 10 mmol/L; Blood Urea Nitrogen 26 mg/dL (7-17); Calcium 8.8 mg/dL (8.4-10.2); Carbon Dioxide 29 mmol/L (22-30); Chloride 101 mmol/L (98-107); Glucose 99 mg/dL (74-99); Potassium 5.1 mmol/L (3.5-5.1); Sodium 140 mmol/L (137-145)
[2017-12-13 08:32] LABS: Eosinophils # (M) 0.09 k/uL (0-0.7); Lymphocytes # (M) 1.74 k/uL (1.0-4.8); Metamyelocytes # (M) 0.05 k/uL (0); Metamyelocytes % 1 %; Monocytes # (M) 0.38 k/uL (0-1.0); Myelocytes # (M) 0.24 k/uL (0); Myelocytes % 5 %; Neutrophils % (M) 49 %; Nucleated Red Blood Cells 0 /100 WBC (0-0); Total Cells Counted 200
[2017-12-13 08:33] LABS: Hypochromasia (M) Present
--- NOTE | 2017-12-13 08:40 | P.PN ---
Subjective Progress Note Date: 12/13/17 Principal diagnosis: This is a pleasant 57-year-old female with past medical history as below who presents with cough and dyspnea or several days duration associated with phlegm and found to have wheezing doing the emergency room duct patient denies any chest pain no fever and her study howeverhe has fever over 1 or 2 as per documentation, and the emergency room patient has chest x-ray which showed new bilateral lower lobe pulmonary infiltrates compatible with bronchopneumonia subjective Patient is seen and examined at bedside Known new events this morning No any more chest pain, no fever, no change in bowel or urinary habits pt is still dyspnic proBNP is negative Objective - Vital Signs Vital signs: Vital Signs Temp 98 F 12/13/17 08:21 Pulse 124 H 12/13/17 08:32 Resp 28 H 12/13/17 08:32 BP 145/82 12/13/17 08:21 Pulse Ox 82 L 12/13/17 08:32 Intake & Output 12/12/17 12/13/17 12/13/17 18:59 06:59 18:59 Intake Total 50 1140 Balance 50 1140 Intake: Intake, IV Titration 50 Amount Clindamycin 300 mg In 50 Dextrose 5% in Water 50 ml @ 100 mls/hr IVPB Q6HR [facility] Rx#:[id number] Oral 1140 Other: Voiding Method Toilet Toilet # Voids 3 1 GENERAL: The patient is alert and oriented x3, not in any acute distress. Well developed, well nourished. HEENT: Pupils are round and equally reacting to light. EOMI. No scleral icterus. No conjunctival pallor. Normocephalic, atraumatic. No pharyngeal erythema. No thyromegaly. CARDIOVASCULAR: S1 and S2 present. No murmurs, rubs, or gallops. PULMONARY: Chest is clear to auscultation, no wheezing or crackles. ABDOMEN: Soft, nontender, nondistended, normoactive bowel sounds. No palpable organomegaly. MUSCULOSKELETAL: No joint swelling or deformity. EXTREMITIES: No cyanosis, clubbing, or pedal edema. NEUROLOGICAL: Gross neurological examination did not reveal any focal deficits. SKIN: No rashes. - Labs CBC & Chem 7: 12/13/17 07:14 12/13/17 07:14 Labs: Abnormal Lab Results - Last 24 Hours (Table) 12/13/17 12/13/17 Range/Units 07:14 07:14 RBC 3.42 L (3.80-5.40) m/uL Hgb 9.4 L (11.4-16.0) gm/dL Hct 29.5 L (34.0-46.0) % BUN 26 H (7-17) mg/dL Microbiology - Last 24 Hours (Table) 12/10/17 22:50 Blood Culture - Preliminary Blood No Growth after 48 hours Assessment and Plan Assessment: 1 pneumonia without patient she has bilateral pneumonia, no leukocytosis Patient most likely has aspiration pneumonia, increased the dose of the clindamycin to 600 mg, blood culture are negative so far, respiratory culture are not done because patient has dry cough proBNP 315 (WNL) echo from 11/04/2017 shows EF 55-60% Pulmonary consult is appreciated 2. Hyperlipidemia continue with statin 3. Hypertension continue with Coreg 25 mg twice a day plus hydro-less than 50 mg 3 times a day 4. Hypothyroidism continue with levothyroxine
[2017-12-13] MEDS: CARVEDILOL 12.5 MG TAB PO SCH ×2 (08:52→20:38)
[2017-12-13] MEDS: hydrALAZINE HCL 50 MG TAB PO SCH ×3 (08:53→20:38)
[2017-12-13] MEDS: DULoxetine HCL 60 MG CAPSULE.DR PO SCH (08:53)
[2017-12-13] MEDS: CLINDAMYCIN 150 MG CAP PO SCH (08:53)
[2017-12-13] MEDS: NON-FORMULARY DRUG (Mirabegron [Myrbetriq] 50 MG) PO SCH (08:54)
[2017-12-13] MEDS: PANTOPRAZOLE 40 MG TABLET PO SCH (08:54)
[2017-12-13] MEDS: RIVAROXABAN 20 MG TAB PO SCH (08:55)
[2017-12-13] MEDS: LEVOTHYROXINE 137 MCG TAB PO SCH (09:06)
[2017-12-13] MEDS ORDERED: CALCIUM CARBONATE 500 MG CHEWABLE PO PRN (10:16)
[2017-12-13] MEDS: ONDANSETRON 4 MG/2 ML VIAL IVP PRN (13:16)
--- NOTE | 2017-12-13 13:18 | P.PN ---
Subjective Progress Note Date: 12/13/17 Principal diagnosis: Acute bibasilar pneumonia, likely community-acquired Magda is a 57-year-old white female patient of Dr. Umaña, who also sees Dr. Means in the pulmonary office for her history of bronchial asthma and recent history of pulmonary embolism, presented to the emergency department on 2017 at 2019 with complaints of increasing cough, chest congestion, shortness of breath, and wheezing. She was initially seen in the emergency room on Saturday12/07/2017 with complaints of shortness of breath, fever of 102.4F. She was told she had a viral upper respiratory infection, was advised to take some Tylenol and Motrin, and was sent home. Influenza screen at that time was negative. However by Saturday her dyspnea became increasingly worse, she started having nausea, vomiting and diarrhea, her fever persisted, and hence she came back to the emergency room for further evaluation and treatment. Her influenza screen was again negative. White count was within normal limits at 5.6, hemoglobin of 9.2, sodium is 144, potassium is 3.8, chloride is 108, carbon dioxide is 21, B1 is 27, creatinine is 1.10. Troponin was negative 1, proBNP was 427, and on today's labs it was 315. Chest x-ray completed in the emergency room on 12/10/2017 showed new bilateral lower lobe pulmonary infiltrates consistent with bronchopneumonia. There was also pulmonary vascular congestion noted. Chest x-ray from 12/11/2017 and 12/12/2017 showed similar findings. Patient does not wear oxygen at baseline, does not have any inhalers or nebulizers at home, but is currently on supplemental oxygen at 2 L per nasal cannula with O2 sat at 94%. She has been afebrile during this admission. Her nausea, vomiting and diarrhea have resolved. She is complaining of not having any appetite. Lung sounds are positive for scattered wheezes. She states she noticed slightly increased edema in her bilateral lower extremities. Denies any chest pain. Has a cough, however unable to produce any sputum. Patient was hospitalized in October with unprovoked pulmonary embolism, was placed on Xarelto on which she remains. She has a family history of thromboembolic disease in her father, therefore she will require lifelong anticoagulation. She has a remote history of bronchial asthma as a young adult, however office PFT was nondiagnostic of obstructive disease hence she was not treated with any bronchodilators. Her office PFT showed mostly restrictive lung disease. She is a lifetime nonsmoker. Other medical history includes diabetes, obesity, GERD without esophagitis, hyperlipidemia, hypothyroidism, osteoarthritis, chronic lumbar pain, and borderline personality disorder. She has a family history of thromboembolic disease in her father. Patient has a legal guardian, Hang Blankenship. She lives alone, manages her activities of daily living independently, ambulates with a walker, and she states she is fairly active on a regular basis. Patient was started on oral antibiotics in the form of doxycycline, Symbicort, nebulized treatments, and admitted for further management. On 12/13/2017 patient seen in follow-up on medical surgical floor, resting comfortably in bed, still complains of being dyspneic on exertion, seems fairly comfortable at rest. Patient still has congested nonproductive cough, not able to bring up any sputum. Overall she states feels a bit better today. Today's lab work shows no evidence of leukocytosis, and has been afebrile since admission. Currently on 2 L per nasal cannula with O2 sat 95%. Vital signs are stable. Lung sounds are positive for scattered rhonchi and wheezes. Patient's chest x-ray showed bilateral lower lobe pulmonary infiltrates consistent with bronchopneumonia, most likely community-acquired pneumonia, although the possibility of aspiration pneumonia was also considered in view of patient's is and vomiting last week. She has penicillin ALLERGY, patient was started on oral clindamycin, we will switch antibiotics to IV meropenem. Continue with nebulized treatments. Objective - Vital Signs Vital signs: Vital Signs Temp 97.6 F 12/13/17 12:59 Pulse 79 12/13/17 12:59 Resp 20 12/13/17 12:59 BP 116/73 12/13/17 12:59 Pulse Ox 95 12/13/17 12:59 Intake & Output 12/12/17 12/13/17 12/13/17 18:59 06:59 18:59 Intake Total 50 1140 716 Balance 50 1140 716 Intake: Intake, IV Titration 50 Amount Clindamycin 300 mg In 50 Dextrose 5% in Water 50 ml @ 100 mls/hr IVPB Q6HR [facility] Rx#:[id number] Oral 1140 716 Other: Voiding Method Toilet Toilet Toilet # Voids 3 1 1 - Exam GENERAL EXAM: Alert, pleasant 57-year-old obese white female comfortable in no apparent distress. HEAD: Normocephalic/atraumatic. EYES: Normal reaction of pupils, equal size. Conjunctiva pink, sclera white. NOSE: Clear with pink turbinates. THROAT: No erythema or exudates. NECK: No masses, no JVD, no thyroid enlargement, no adenopathy. CHEST: No chest wall deformity. Symmetrical expansion. LUNGS: Equal air entry with expiratory wheezes and rhonchi CVS: Regular rate and rhythm, normal S1 and S2, no gallops, no murmurs, no rubs ABDOMEN: Soft, nontender. No hepatosplenomegaly, normal bowel sounds, no guarding or rigidity. EXTREMITIES: No clubbing, no cyanosis, 2+ pulses and upper and lower extremities. There is mild 1+ nonpitting lower extremity edema noted MUSCULOSKELETAL: Muscle strength and tone normal. SPINE: No scoliosis or deformity SKIN: No rashes CENTRAL NERVOUS SYSTEM: Alert and oriented -3. No focal deficits, tone is normal in all 4 extremities. PSYCHIATRIC: Alert and oriented -3. Appropriate affect. Intact judgment and insight. - Labs CBC & Chem 7: 12/13/17 07:14 12/13/17 07:14 Labs: Abnormal Lab Results - Last 24 Hours (Table) 12/13/17 12/13/17 Range/Units 07:14 07:14 RBC 3.42 L (3.80-5.40) m/uL Hgb 9.4 L (11.4-16.0) gm/dL Hct 29.5 L (34.0-46.0) % Metamyelocytes # (Man) 0.05 H (0) k/uL Myelocytes # (Manual) 0.24 H (0) k/uL BUN 26 H (7-17) mg/dL Microbiology - Last 24 Hours (Table) 12/10/17 22:50 Blood Culture - Preliminary Blood No Growth after 48 hours Assessment and Plan Plan: Assessment: #1. Acute bibasilar pneumonia, possibly community-acquired, possibly aspiration related. Patient had several episodes of nausea vomiting diarrhea last week #2. Recent hospitalization for unprovoked pulmonary embolism, recent has a strong family history of thromboembolic disease in her father, was placed on Xarelto. Will likely need lifelong anticoagulation #3. Remote history of bronchial asthma, however most recent PFT in the office was negative for any evidence of obstructive disease, FEV1 was 82%, with FVC at 74% of predicted, consistent with restrictive disease. #4. Lifetime nonsmoker #5. Morbid obesity #6. Hypothyroidism, on Synthroid #7. Diabetes mellitus #8. Hyperlipidemia, hypertension #9. Osteoarthritis #10. Borderline personality disorder #11. Chronic anemia #12. History of bariatric surgery, hernia repair, total right knee replacement , left hip repair #13. Chronic back pain Plan: We will switch the antibiotics to meropenem for what appears to be community- acquired pneumonia although the possibility of aspiration pneumonia was also considered, unable to collect sputum culture patient is not bringing up any sputum. Continue nebulized treatments, Symbicort. Patient has no evidence of leukocytosis. Currently afebrile. Continue with Xarelto for patient's recent history of unprovoked pulmonary embolisms. Continue GI prophylaxis. Further recommendations to follow depending on the clinical course I performed a history & physical examination of the patient and discussed their management with my nurse practitioner, Joleen Colbert. I reviewed the nurse practitioner's note and agree with the documented findings and plan of care. Lung sounds are positive for expiratory wheezes and rhonchi. The findings and the impression was discussed with the patient. I attest to the documentation by the nurse practitioner. Time with Patient: Less than 30
[2017-12-13] MEDS: AZITHROMYCIN 500 MG TAB PO SCH (14:24)
[2017-12-13] MEDS: cefTRIAXone IN SWFI 1,000 MG/10 ML SYRINGE IVP SCH (14:24)
[2017-12-13] MEDS: LORazepam 0.5 MG TAB PO PRN (19:46)
[2017-12-13] MEDS: rOPINIRole HCL 4 MG TABLET PO SCH (20:37)
[2017-12-13] MEDS: DIVALPROEX ER 500 MG TAB.ER.24H PO SCH (20:37)
[2017-12-13] MEDS: traZODone HCL 100 MG TAB PO SCH (20:38)
[2017-12-13] MEDS: ATORVASTATIN 10 MG TAB PO SCH (20:38)
[2017-12-14] MEDS: LEVOTHYROXINE 137 MCG TAB PO SCH (05:30)
[2017-12-14] MEDS: HYDROcodone/APAP 5-325MG 1 EACH TAB PO PRN ×2 (05:47→19:35)
--- NOTE | 2017-12-14 07:16 | XR ---
EXAMINATION TYPE: XR chest 2V DATE OF EXAM: 12/14/2017 HISTORY: follow up bibasilar infitrates. REFERENCE: Previous study dated 12/12/2017. FINDINGS: The heart is mildly enlarged. There is vascular congestion and pulmonary edema. There is a left-sided effusion. Overall aeration has improved. IMPRESSION: SLIGHT IMPROVEMENT IN THE DEGREE OF PULMONARY EDEMA.
[2017-12-14 07:36] LABS: HCT 31.1 % (34.0-46.0); HGB 9.7 gm/dL (11.4-16.0); MCH 27.3 pg (25.0-35.0); MCHC 31.1 g/dL (31.0-37.0); MCV 87.6 fL (80.0-100.0); Mean Platelet Volume 8.2; Platelet Count 383 k/uL (150-450); RBC 3.56 m/uL (3.80-5.40); RDW 13.5 % (11.5-15.5); WBC 6.5 k/uL (3.8-10.6)
[2017-12-14] MEDS: SYMBICORT 160-4.5 MCG INHALER INHALATION SCH ×2 (07:38→19:51)
[2017-12-14] MEDS: IPRATROPIUM-ALBUTEROL 3 ML NEB INHALATION PRN ×2 (07:38→11:10)
[2017-12-14 07:58] LABS: Anion Gap 13 mmol/L; Blood Urea Nitrogen 24 mg/dL (7-17); Calcium 9.2 mg/dL (8.4-10.2); Carbon Dioxide 28 mmol/L (22-30); Chloride 98 mmol/L (98-107); Glucose 96 mg/dL (74-99); Potassium 5.2 mmol/L (3.5-5.1); Sodium 139 mmol/L (137-145)
[2017-12-14] MEDS: hydrALAZINE HCL 50 MG TAB PO SCH ×3 (07:59→19:36)
[2017-12-14] MEDS: NON-FORMULARY DRUG (Mirabegron [Myrbetriq] 50 MG) PO SCH (07:59)
[2017-12-14] MEDS: RIVAROXABAN 20 MG TAB PO SCH (07:59)
[2017-12-14] MEDS: CARVEDILOL 12.5 MG TAB PO SCH ×2 (07:59→19:35)
[2017-12-14] MEDS: DULoxetine HCL 60 MG CAPSULE.DR PO SCH (07:59)
[2017-12-14] MEDS: PANTOPRAZOLE 40 MG TABLET PO SCH (08:00)
[2017-12-14] MEDS: AZITHROMYCIN 500 MG TAB PO SCH (08:00)
--- NOTE | 2017-12-14 09:20 | P.PN ---
Subjective Progress Note Date: 12/14/17 patient is seen and examined by me on bedside E Patient is still dyspneic, and with dry cough Objective - Vital Signs Vital signs: Vital Signs Temp 97.8 F 12/14/17 07:00 Pulse 91 12/14/17 07:52 Resp 18 12/14/17 07:30 BP 143/77 12/14/17 07:00 Pulse Ox 95 12/14/17 07:43 Intake & Output 12/13/17 12/14/17 12/14/17 18:59 06:59 18:59 Intake Total 2216 480 Balance 2216 480 Weight 163.293 kg Intake: Oral 2213 480 Other: Voiding Method Toilet Toilet Toilet # Voids 4 1 - Exam Constitutional: No acute distress, conversant, pleasant Eyes: Anicteric sclerae, moist conjunctiva, no lid-lag PERRLA ENMT: NC/AT Oropharynx clear, no erythema, exudates Neck: Supple, FROM, no masses, or JVD No carotid bruits No thyromegaly Lungs: Clear to auscultation Clear to percussion Normal respiratory effort, no accessory muscle use Cardiovascular: Heart regular in rate and rhythm, No murmurs, gallops, or rubs No peripheral edema Abdominal: Soft Nontender, no guarding, rebound or rigidity Abdomen moving with respiration Normoactive bowel sounds No hepatomegaly, No splenomegaly No palpable mass No abdominal wall hernia noted Skin: Normal temperature, tone, texture, turgor No induration No subcutaneous nodules No rash, lesions No ulcers Extremities: No digital cyanosis No clubbing Pedal pulses intact and symmetrical Radial pulses intact and symmetrical Normal gait and station No calf tenderness Psychiatric: Alert and oriented to person, place and time Appropriate affect Intact judgement Neuro: Muscles Strength 5/5 in all 4 extremities Sensation to light touch grossly present throughout Cranial nerves II-XII grossly intact No focal sensory deficits - Labs CBC & Chem 7: 12/14/17 07:05 12/14/17 07:05 Labs: Abnormal Lab Results - Last 24 Hours (Table) 12/14/17 12/14/17 Range/Units 07:05 07:05 RBC 3.56 L (3.80-5.40) m/uL Hgb 9.7 L (11.4-16.0) gm/dL Hct 31.1 L (34.0-46.0) % Potassium 5.2 H (3.5-5.1) mmol/L BUN 24 H (7-17) mg/dL Microbiology - Last 24 Hours (Table) 12/10/17 22:50 Blood Culture - Preliminary Blood No Growth after 72 hours Assessment and Plan Assessment: 1 pneumonia without patient she has bilateral pneumonia, no leukocytosis Patient most likely has aspiration pneumonia, DC clindamycin to 600 mg and to start meropenem upon pulmonary recommendation which is appreciated, blood culture are negative so far, respiratory culture are not done because patient has dry cough proBNP 315 (WNL) echo from 11/04/2017 shows EF 55-60% Pulmonary consult is appreciated 2. Hyperlipidemia continue with statin 3. Hypertension continue with Coreg 25 mg twice a day plus hydro-less than 50 mg 3 times a day 4. Hypothyroidism continue with levothyroxine
[2017-12-14 09:21] LABS: Band Neutrophils % 4 %; Metamyelocytes % 3 %; Monocytes # (M) 0.52 k/uL (0-1.0); Myelocytes # (M) 0.07 k/uL (0); Myelocytes % 1 %; Neutrophils % (M) 66 %; Nucleated Red Blood Cells 0 /100 WBC (0-0); Total Cells Counted 200
[2017-12-14] MEDS: guaiFENesin-Coden 100-10MG/5ML 10 ML CUP PO PRN ×2 (10:34→19:35)
[2017-12-14] MEDS: cefTRIAXone IN SWFI 1,000 MG/10 ML SYRINGE IVP SCH (11:42)
[2017-12-14] MEDS: hydrOXYzine HCL 25 MG TAB PO PRN ×2 (12:36→23:16)
--- NOTE | 2017-12-14 13:09 | P.PN ---
Subjective Progress Note Date: 12/14/17 Principal diagnosis: Acute bibasilar pneumonia, likely community-acquired. Magda is a 57-year-old white female patient of Dr. Umaña, who also sees Dr. Means in the pulmonary office for her history of bronchial asthma and recent history of pulmonary embolism, presented to the emergency department on 2017 at 2019 with complaints of increasing cough, chest congestion, shortness of breath, and wheezing. She was initially seen in the emergency room on Saturday12/07/2017 with complaints of shortness of breath, fever of 102.4F. She was told she had a viral upper respiratory infection, was advised to take some Tylenol and Motrin, and was sent home. Influenza screen at that time was negative. However by Saturday her dyspnea became increasingly worse, she started having nausea, vomiting and diarrhea, her fever persisted, and hence she came back to the emergency room for further evaluation and treatment. Her influenza screen was again negative. White count was within normal limits at 5.6, hemoglobin of 9.2, sodium is 144, potassium is 3.8, chloride is 108, carbon dioxide is 21, B1 is 27, creatinine is 1.10. Troponin was negative 1, proBNP was 427, and on today's labs it was 315. Chest x-ray completed in the emergency room on 12/10/2017 showed new bilateral lower lobe pulmonary infiltrates consistent with bronchopneumonia. There was also pulmonary vascular congestion noted. Chest x-ray from 12/11/2017 and 12/12/2017 showed similar findings. Patient does not wear oxygen at baseline, does not have any inhalers or nebulizers at home, but is currently on supplemental oxygen at 2 L per nasal cannula with O2 sat at 94%. She has been afebrile during this admission. Her nausea, vomiting and diarrhea have resolved. She is complaining of not having any appetite. Lung sounds are positive for scattered wheezes. She states she noticed slightly increased edema in her bilateral lower extremities. Denies any chest pain. Has a cough, however unable to produce any sputum. Patient was hospitalized in October with unprovoked pulmonary embolism, was placed on Xarelto on which she remains. She has a family history of thromboembolic disease in her father, therefore she will require lifelong anticoagulation. She has a remote history of bronchial asthma as a young adult, however office PFT was nondiagnostic of obstructive disease hence she was not treated with any bronchodilators. Her office PFT showed mostly restrictive lung disease. She is a lifetime nonsmoker. Other medical history includes diabetes, obesity, GERD without esophagitis, hyperlipidemia, hypothyroidism, osteoarthritis, chronic lumbar pain, and borderline personality disorder. She has a family history of thromboembolic disease in her father. Patient has a legal guardian, Hang Blankenship. She lives alone, manages her activities of daily living independently, ambulates with a walker, and she states she is fairly active on a regular basis. Patient was started on oral antibiotics in the form of doxycycline, Symbicort, nebulized treatments, and admitted for further management. On 12/13/2017 patient seen in follow-up on medical surgical floor, resting comfortably in bed, still complains of being dyspneic on exertion, seems fairly comfortable at rest. Patient still has congested nonproductive cough, not able to bring up any sputum. Overall she states feels a bit better today. Today's lab work shows no evidence of leukocytosis, and has been afebrile since admission. Currently on 2 L per nasal cannula with O2 sat 95%. Vital signs are stable. Lung sounds are positive for scattered rhonchi and wheezes. Patient's chest x-ray showed bilateral lower lobe pulmonary infiltrates consistent with bronchopneumonia, most likely community-acquired pneumonia, although the possibility of aspiration pneumonia was also considered in view of patient's is and vomiting last week. She has penicillin ALLERGY, patient was started on oral clindamycin, we will switch antibiotics to IV meropenem. Continue with nebulized treatments. The patient is seen again today 12/14/2017 in follow-up on the regular medical floor. She is awake and alert in no acute distress. She is sitting up in bed. She denies any worsening shortness of breath, cough or congestion. No chills or night sweats. She is maintaining good O2 saturations in the mid 90s on 2 L/ m per nasal cannula. She's been afebrile. Hemodynamically stable. We'll culture reveals no growth to date. White count 6.5. Hemoglobin 9.7. Creatinine 0.70. She remains on bronchodilators, Symbicort, ceftriaxone and azithromycin. Objective - Vital Signs Vital signs: Vital Signs Temp 97.8 F 12/14/17 07:00 Pulse 86 12/14/17 11:23 Resp 18 12/14/17 07:30 BP 143/77 12/14/17 07:00 Pulse Ox 95 12/14/17 07:43 Intake & Output 12/13/17 12/14/17 12/14/17 18:59 06:59 18:59 Intake Total 3152 158 Balance 2216 204 Weight 163.293 kg Intake: Oral 2211 887 Other: Voiding Method Toilet Toilet Toilet # Voids 4 1 - Exam GENERAL EXAM: Alert, pleasant 57-year-old obese white female comfortable in no apparent distress. HEAD: Normocephalic/atraumatic. EYES: Normal reaction of pupils, equal size. Conjunctiva pink, sclera white. NOSE: Clear with pink turbinates. THROAT: No erythema or exudates. NECK: No masses, no JVD, no thyroid enlargement, no adenopathy. CHEST: No chest wall deformity. Symmetrical expansion. LUNGS: Equal air entry with expiratory wheezes and rhonchi CVS: Regular rate and rhythm, normal S1 and S2, no gallops, no murmurs, no rubs ABDOMEN: Soft, nontender. No hepatosplenomegaly, normal bowel sounds, no guarding or rigidity. EXTREMITIES: No clubbing, no cyanosis, 2+ pulses and upper and lower extremities. There is mild 1+ nonpitting lower extremity edema noted MUSCULOSKELETAL: Muscle strength and tone normal. SPINE: No scoliosis or deformity SKIN: No rashes CENTRAL NERVOUS SYSTEM: Alert and oriented -3. No focal deficits, tone is normal in all 4 extremities. PSYCHIATRIC: Alert and oriented -3. Appropriate affect. Intact judgment and insight. - Labs CBC & Chem 7: 12/14/17 07:05 12/14/17 07:05 Labs: Abnormal Lab Results - Last 24 Hours (Table) 12/14/17 12/14/17 Range/Units 07:05 07:05 RBC 3.56 L (3.80-5.40) m/uL Hgb 9.7 L (11.4-16.0) gm/dL Hct 31.1 L (34.0-46.0) % Metamyelocytes # (Man) 0.20 H (0) k/uL Myelocytes # (Manual) 0.07 H (0) k/uL Potassium 5.2 H (3.5-5.1) mmol/L BUN 24 H (7-17) mg/dL Microbiology - Last 24 Hours (Table) 12/10/17 22:50 Blood Culture - Preliminary Blood No Growth after 72 hours Assessment and Plan Assessment: Assessment: #1. Acute bibasilar pneumonia, possibly community-acquired, possibly aspiration related. Patient had several episodes of nausea vomiting diarrhea last week #2. Recent hospitalization for unprovoked pulmonary embolism, recent has a strong family history of thromboembolic disease in her father, was placed on Xarelto. Will likely need lifelong anticoagulation #3. Remote history of bronchial asthma, however most recent PFT in the office was negative for any evidence of obstructive disease, FEV1 was 82%, with FVC at 74% of predicted, consistent with restrictive disease. #4. Lifetime nonsmoker #5. Morbid obesity #6. Hypothyroidism, on Synthroid #7. Diabetes mellitus #8. Hyperlipidemia, hypertension #9. Osteoarthritis #10. Borderline personality disorder #11. Chronic anemia #12. History of bariatric surgery, hernia repair, total right knee replacement , left hip repair #13. Chronic back pain Plan: The patient was seen and evaluated by Dr. Chacon. She is improved today as compared to yesterday. Still not quite back to her baseline. We'll continue with her current medications. We'll increase her activity as tolerated. We'll continue to follow and make further recommendations based on her clinical status. I, the cosigning physician, performed a history & physical examination of the patient. Lungs sounds with bilateral scattered rhonchi. Maintaining good O2 saturations in the 90s on 2 L/m per nasal cannula. I discussed the assessment and plan of care with my nurse practitioner, Desiree Cedeno. I attest to the above note as dictated by her.
[2017-12-14] MEDS: ALBUTEROL NEBULIZED 2.5 MG/3 ML INHALATION PRN (16:33)
[2017-12-14] MEDS: LORazepam 0.5 MG TAB PO PRN (18:04)
[2017-12-14] MEDS: rOPINIRole HCL 4 MG TABLET PO SCH (19:35)
[2017-12-14] MEDS: DIVALPROEX ER 500 MG TAB.ER.24H PO SCH (19:36)
[2017-12-14] MEDS: ATORVASTATIN 10 MG TAB PO SCH (19:36)
[2017-12-14] MEDS: traZODone HCL 100 MG TAB PO SCH (23:15)
[2017-12-15] MEDS: HYDROcodone/APAP 5-325MG 1 EACH TAB PO PRN ×3 (00:18→19:28)
[2017-12-15] MEDS: guaiFENesin-Coden 100-10MG/5ML 10 ML CUP PO PRN ×2 (04:26→11:01)
[2017-12-15] MEDS: LEVOTHYROXINE 137 MCG TAB PO SCH (05:17)
[2017-12-15 07:27] LABS: Basophils % (A) 1 %; Eosinophils # (A) 0.2 k/uL (0-0.7); Eosinophils % (A) 2 %; HCT 32.9 % (34.0-46.0); HGB 10.6 gm/dL (11.4-16.0); Lymphocytes # (A) 1.5 k/uL (1.0-4.8); Lymphocytes % (A) 23 %; MCHC 32.1 g/dL (31.0-37.0); MCV 87.1 fL (80.0-100.0); Mean Platelet Volume 7.9; Monocytes # (A) 0.5 k/uL (0-1.0); Monocytes % (A) 7 %; Neutrophils # (A) 4.1 k/uL (1.3-7.7); Neutrophils % (A) 63 %; Platelet Count 401 k/uL (150-450); RBC 3.78 m/uL (3.80-5.40); RDW 13.2 % (11.5-15.5); WBC 6.5 k/uL (3.8-10.6)
[2017-12-15] MEDS: DULoxetine HCL 60 MG CAPSULE.DR PO SCH (07:31)
[2017-12-15] MEDS: hydrALAZINE HCL 50 MG TAB PO SCH ×3 (07:31→20:06)
[2017-12-15] MEDS: CARVEDILOL 12.5 MG TAB PO SCH ×2 (07:32→20:07)
[2017-12-15] MEDS: PANTOPRAZOLE 40 MG TABLET PO SCH (07:32)
[2017-12-15] MEDS: RIVAROXABAN 20 MG TAB PO SCH (07:32)
[2017-12-15] MEDS: hydrOXYzine HCL 25 MG TAB PO PRN ×2 (07:32→16:19)
[2017-12-15] MEDS: NON-FORMULARY DRUG (Mirabegron [Myrbetriq] 50 MG) PO SCH (07:33)
[2017-12-15] MEDS: AZITHROMYCIN 500 MG TAB PO SCH (07:33)
[2017-12-15 07:39] LABS: Anion Gap 14 mmol/L; Blood Urea Nitrogen 24 mg/dL (7-17); Calcium 9.3 mg/dL (8.4-10.2); Carbon Dioxide 29 mmol/L (22-30); Chloride 100 mmol/L (98-107); Glucose 94 mg/dL (74-99); Potassium 4.9 mmol/L (3.5-5.1); Sodium 143 mmol/L (137-145)
[2017-12-15] MEDS: SYMBICORT 160-4.5 MCG INHALER INHALATION SCH (08:20)
[2017-12-15] MEDS: IPRATROPIUM-ALBUTEROL 3 ML NEB INHALATION PRN ×3 (08:20→19:10)
--- NOTE | 2017-12-15 09:37 | P.PN ---
Subjective patient is seen and examined by me on bedside E Patient is still dyspneic, and with dry cough Objective - Vital Signs Vital signs: Vital Signs Temp 98.7 F 12/15/17 07:40 Pulse 89 12/15/17 08:33 Resp 18 12/15/17 07:40 BP 142/69 12/15/17 07:40 Pulse Ox 97 12/15/17 08:20 Intake & Output 12/14/17 12/15/17 12/15/17 18:59 06:59 18:59 Intake Total 1680 500 Balance 1680 500 Weight 163.293 kg Intake: Oral 1680 500 Other: Voiding Method Toilet Toilet # Voids 2 2 2 - Exam Constitutional: No acute distress, conversant, pleasant Eyes: Anicteric sclerae, moist conjunctiva, no lid-lag PERRLA ENMT: NC/AT Oropharynx clear, no erythema, exudates Neck: Supple, FROM, no masses, or JVD No carotid bruits No thyromegaly Lungs: Clear to auscultation Clear to percussion Normal respiratory effort, no accessory muscle use Cardiovascular: Heart regular in rate and rhythm, No murmurs, gallops, or rubs No peripheral edema Abdominal: Soft Nontender, no guarding, rebound or rigidity Abdomen moving with respiration Normoactive bowel sounds No hepatomegaly, No splenomegaly No palpable mass No abdominal wall hernia noted Skin: Normal temperature, tone, texture, turgor No induration No subcutaneous nodules No rash, lesions No ulcers Extremities: No digital cyanosis No clubbing Pedal pulses intact and symmetrical Radial pulses intact and symmetrical Normal gait and station No calf tenderness Psychiatric: Alert and oriented to person, place and time Appropriate affect Intact judgement Neuro: Muscles Strength 5/5 in all 4 extremities Sensation to light touch grossly present throughout Cranial nerves II-XII grossly intact No focal sensory deficits - Labs CBC & Chem 7: 12/15/17 07:00 12/15/17 07:00 Labs: Abnormal Lab Results - Last 24 Hours (Table) 12/15/17 12/15/17 Range/Units 07:00 07:00 RBC 3.78 L (3.80-5.40) m/uL Hgb 10.6 L (11.4-16.0) gm/dL Hct 32.9 L (34.0-46.0) % BUN 24 H (7-17) mg/dL Microbiology - Last 24 Hours (Table) 12/10/17 22:50 Blood Culture - Preliminary Blood No Growth after 96 hours Assessment and Plan Plan: 1 pneumonia without patient she has bilateral pneumonia, no leukocytosis Patient most likely has aspiration pneumonia, DC clindamycin to 600 mg and to start Zithromax and ceftriaxone upon pulmonary recommendation which is appreciated, blood culture are negative so far, respiratory culture are not done because patient has dry cough, repeat chest x-ray on 12/14 shows slight improvement and congestion proBNP 315 (WNL) echo from 11/04/2017 shows EF 55-60% Pulmonary consult is appreciated 2. Hyperlipidemia continue with statin 3. Hypertension continue with Coreg 25 mg twice a day plus hydro-less than 50 mg 3 times a day 4. Hypothyroidism continue with levothyroxine 5. History of PE, continue with xarelto 20 mg daily
[2017-12-15] MEDS: cefTRIAXone IN SWFI 1,000 MG/10 ML SYRINGE IVP SCH (12:11)
--- NOTE | 2017-12-15 13:32 | P.PN ---
Subjective Progress Note Date: 12/15/17 Principal diagnosis: Shortness of breath, pneumonia Progress note dated 12/15/2017 This is a 57-year-old female who was admitted with a diagnosis of acute bibasal pneumonia. The patient also has a history of recent hospitalization for unprovoked pulmonary embolism a remote history of chronic bronchial asthma lifetime nonsmoker morbid obesity hypothyroidism and diabetes hyperlipidemia hypertension osteoarthritis borderline personality disorder chronic anemia chronic back pain and history of bariatric surgery. She's also on other orthopedic procedures. The patient only minimally improved today. One of the problems is that she's not really getting out of bed. I really encouraged her to have deep breathing coughing and clearing secretions, using her incentive spirometer, and getting out of bed and sitting up in a chair. The patient likely also has a component of restrictive lung disease from morbid obesity. The patient's chest x-ray is somewhat improved. Objective - Vital Signs Vital signs: Vital Signs Temp 98.7 F 12/15/17 07:40 Pulse 89 12/15/17 08:33 Resp 18 12/15/17 08:00 BP 142/69 12/15/17 07:40 Pulse Ox 97 12/15/17 08:20 Intake & Output 12/14/17 12/15/17 12/15/17 18:59 06:59 18:59 Intake Total 1680 500 Balance 1680 500 Weight 163.293 kg Intake: Oral 1680 500 Other: Voiding Method Toilet Toilet Toilet # Voids 2 2 2 - Exam No acute distress, oriented 3. HEENT examination is grossly unremarkable. Mucous membranes are moist. No oral lesions. Neck supple. Full range of motion. No adenopathy thyromegaly or neck vein distention. Cardiovascular examination reveals regular rhythm rate. S1-S2 normal. No S3 or S4. No discernible murmur noted. Lungs reveal a few scattered rhonchi. Breath sounds are diminished. A few scattered wheezes are noted. Her cough is mildly congested. Breath sounds are equal bilaterally. Abdomen soft bowel sounds are heard. No masses or tenderness. Extremities are intact. No cyanosis clubbing or edema. Skin is without rash or lesion. Neurologic examination is brief but nonfocal. - Labs CBC & Chem 7: 12/15/17 07:00 12/15/17 07:00 Labs: Abnormal Lab Results - Last 24 Hours (Table) 12/15/17 12/15/17 Range/Units 07:00 07:00 RBC 3.78 L (3.80-5.40) m/uL Hgb 10.6 L (11.4-16.0) gm/dL Hct 32.9 L (34.0-46.0) % BUN 24 H (7-17) mg/dL Microbiology - Last 24 Hours (Table) 12/10/17 22:50 Blood Culture - Preliminary Blood No Growth after 96 hours Assessment and Plan Assessment: Assessment Acute bibasilar pneumonia, probably related to aspiration. Recent hospitalization for unprovoked pulmonary embolism Remote history of chronic bronchial asthma Restrictive lung disease, likely secondary to obesity. Lifetime nonsmoker Morbid obesity Hypothyroidism Diabetes mellitus Hyperlipidemia Hypertension DJD Borderline personality disorder Chronic anemia Previous history of bariatric surgery Plan: Plan dated 12/15/2017 The patient is probably a bit better today than she was yesterday. Chest x-ray isn't somewhat improved. I encourage deep breathing coughing clearing secretions. I'll review the labs x-rays a medications. I've also asked her to continue to use incentive spirometer every hour while awake. I've also asked to get out of bed as as I think this will help her lung function. She apparently refuses that. Time with Patient: Less than 30
[2017-12-15] MEDS: LORazepam 0.5 MG TAB PO PRN ×2 (13:33→19:28)
[2017-12-15] MEDS: methylPREDNISolone SOD SUCCI 40 MG/ML 1 ML VIAL IV SCH ×2 (16:20→23:49)
[2017-12-15] MEDS: rOPINIRole HCL 4 MG TABLET PO SCH (18:15)
[2017-12-15] MEDS ORDERED: FUROSEMIDE 20 MG TAB PO STA (18:50)
[2017-12-15] MEDS ORDERED: BENZONATATE 100 MG CAP PO PRN (18:50)
[2017-12-15] MEDS: FORMOTEROL FUMARATE 20 MCG/2 ML NEBU INHALATION SCH (19:16)
[2017-12-15] MEDS: BUDESONIDE 1 MG/2 ML NEBU INHALATION SCH (19:17)
[2017-12-15] MEDS: LEVOFLOXACIN 750 MG TAB PO SCH (20:06)
[2017-12-15] MEDS: ATORVASTATIN 10 MG TAB PO SCH (20:06)
[2017-12-15] MEDS: DIVALPROEX ER 500 MG TAB.ER.24H PO SCH (20:06)
--- NOTE | 2017-12-15 21:53 | CONS ---
CONSULTATION DATE OF SERVICE: 12/15/2017. REASON FOR CONSULTATION: Bilateral pneumonia. HISTORY OF PRESENT ILLNESS: The patient is a 57-year-old female who presented to the [facility] ER on the about 5 days ago with chief complaints of cough and congestion and shortness of breath. Apparently the patient was sick for several days prior to presentation to hospital. The patient's symptoms started with URI, subsequently having lower respiratory tract symptoms. Cough is mostly dry in nature and unable to cough anything out, more of dry irritating cough. Denies significant postnasal drip. The patient denies having any nausea or any vomiting and no choking on the food. The patient apparently did have a fever of 102 degrees Fahrenheit prior to presentation to the hospital. With these symptoms, the patient did come to the hospital on arrival to the ER. At that time, the patient was afebrile. She did have a normal white count of 5.6. The patient did have a chest x-ray which was reported to be bilateral lower lobe infiltrate compared to recent exam consistent with bronchopneumonia. A chest x-ray the next day shows correlate for congestive heart failure, findings similar to the prior exam. Chest x-ray on the did show diffuse air space disease with left-sided effusion, correlate for CHF versus pneumonia and also had a chest x-ray yesterday morning, slight improvement in the degree of pulmonary edema. Patient who has been initially treated with Solu-Medrol and Rocephin as well as Zithromax and I was asked to see the patient today for further recommendation regarding antibiotic therapy. REVIEW OF SYSTEMS: Constitutional: Positive for weakness and fever. Eyes: No complaint. ENT as per HPI. RESPIRATORY: As per HPI. Cardiovascular as per HPI. Genitourinary no complaint. Gastrointestinal: No complaint. MUSCULOSKELETAL: No complaint. INTEGUMENTARY: No complaint. Psychological no complaint. Endocrine no complaint. Neurological no complaint. PAST MEDICAL HISTORY: Significant for hypertension, hyperlipidemia, gastroesophageal reflux disease, diabetes mellitus, asthma, osteoarthritis, hypothyroidism, UTI, restless leg syndrome, morbid obesity. PAST SURGICAL HISTORY: Right knee replacement, abdominal hernia repair, left hip fracture repair and bariatric surgery. SOCIAL HISTORY: No history of smoking, drinking or drug use. FAMILY HISTORY: Mother with history of lung cancer. Father from . Brother history of diabetes. ALLERGIES: TO MULTIPLE MEDICATIONS INCLUDING PENICILLIN, SULFA, , HALOPERIDOL AND BUSPIRONE. MEDICATION: Medications include the patient is currently on Zithromax, Rocephin, [place], DuoNeb, Lipitor, Pulmicort, Tums, Coreg, Cymbalta, Robitussin AC, hydralazine, Synthroid, Ativan, Solu-Medrol, Zofran, Protonix, Xarelto, Requip and Desyrel. EXAMINATION: Blood pressure is 131/60 with a pulse of 92, temperature 97.5, she is 94% on 2 L nasal cannula. General description is a middle aged female lying in bed in no distress. No tachypnea or accessory muscle of respiration use. HEENT: Shows pallor. No scleral icterus. Oral mucosa membranes dry. No pharyngeal erythema or thrush. Neck trachea central, no thyromegaly. Lungs unlabored breathing. Coarse breath sounds bilaterally. No wheeze. Heart S1, S2. Regular rate and rhythm. ABDOMEN: Soft, no tenderness. No guarding. No rigidity. Extremities: Some trace edema of feet. SKIN examination: No rash or mass palpable. Neurological: Patient is awake, alert, oriented x3. Mood and affect normal. LABS: Hemoglobin is 10.6, white count 6.5, BUN of 24, creatinine 0.73. Electrolytes have been normal. NT proBNP x 2, influenza serology was negative. Chest x-ray report as mentioned above. DIAGNOSTIC IMPRESSION AND PLAN: Patient admitted to the hospital with a fever, did have increasing shortness of breath and a dry hacking cough with evidence of bilateral pneumonia on initial x-ray. No fever since then and no elevated white count. The patient was seen to have subsequently diffuse infiltrate with question of possible fluid overload rather than pneumonia as not clinically behaving as a typical pneumonia. The patient with no further fever and no elevated white count. No persistent cough which is mostly dry in nature, atypical pneumonia, which is viral not likely but not cannot be entirely excluded. PLAN: 1. Recommend a short course of diuretics to see for symptom response to the same and may benefit from further workup including adequate cardio evaluation. 2. Will keep the patient on Rocephin, however discontinue Zithromax and add Levaquin. 3. We will check urine for Legionella antigen and antibodies. 4. We will try to obtain sputum for gram stain culture and sensitivity. 5. We will follow up on the clinical condition and further adjust medication if needed. Thank you for this consultation, we will follow the patient along with you. BENTLEY / GRIFFINN: [id number] /
[2017-12-15] MEDS: traZODone HCL 100 MG TAB PO SCH ×2 (22:57→23:49)
[2017-12-16] MEDS: LORazepam 0.5 MG TAB PO PRN ×3 (01:26→13:47)
[2017-12-16] MEDS: hydrOXYzine HCL 25 MG TAB PO PRN ×2 (01:36→07:59)
[2017-12-16] MEDS: IPRATROPIUM-ALBUTEROL 3 ML NEB INHALATION PRN (01:48)
[2017-12-16 01:53] VITALS: RESP 18
[2017-12-16] MEDS: guaiFENesin-Coden 100-10MG/5ML 10 ML CUP PO PRN (02:44)
[2017-12-16] MEDS: LEVOTHYROXINE 137 MCG TAB PO SCH ×2 (05:15→05:16)
[2017-12-16] MEDS: RIVAROXABAN 20 MG TAB PO SCH (07:22)
[2017-12-16] MEDS: LEVOFLOXACIN 750 MG TAB PO SCH (07:22)
[2017-12-16] MEDS: methylPREDNISolone SOD SUCCI 40 MG/ML 1 ML VIAL IV SCH (07:22)
[2017-12-16] MEDS: hydrALAZINE HCL 50 MG TAB PO SCH ×2 (07:23→11:32)
[2017-12-16] MEDS: CARVEDILOL 12.5 MG TAB PO SCH (07:23)
[2017-12-16] MEDS: PANTOPRAZOLE 40 MG TABLET PO SCH (07:23)
[2017-12-16] MEDS: DULoxetine HCL 60 MG CAPSULE.DR PO SCH (07:23)
[2017-12-16] MEDS: BUDESONIDE 1 MG/2 ML NEBU INHALATION SCH (08:00)
[2017-12-16] MEDS: FORMOTEROL FUMARATE 20 MCG/2 ML NEBU INHALATION SCH (08:00)
[2017-12-16 08:04] VITALS: BP 144/100; PULSE 105; TEMP 98
[2017-12-16] MEDS: NON-FORMULARY DRUG (Mirabegron [Myrbetriq] 50 MG) PO SCH (08:09)
--- NOTE | 2017-12-16 09:16 | P.PN ---
Subjective patient is seen and examined by me on bedside E Patient is still dyspneic, and with dry cough Objective - Vital Signs Vital signs: Vital Signs Temp 98.0 F 12/16/17 07:17 Pulse 105 H 12/16/17 08:00 Resp 18 12/16/17 08:00 BP 144/100 12/16/17 07:17 Pulse Ox 90 L 12/16/17 07:17 Intake & Output 12/15/17 12/16/17 12/16/17 18:59 06:59 18:59 Intake Total 1580 240 Balance 1580 240 Intake: Oral 1580 240 Other: Voiding Method Toilet Toilet Toilet # Voids 4 3 - Exam Constitutional: No acute distress, conversant, pleasant Eyes: Anicteric sclerae, moist conjunctiva, no lid-lag PERRLA ENMT: NC/AT Oropharynx clear, no erythema, exudates Neck: Supple, FROM, no masses, or JVD No carotid bruits No thyromegaly Lungs: Clear to auscultation Clear to percussion Normal respiratory effort, no accessory muscle use Cardiovascular: Heart regular in rate and rhythm, No murmurs, gallops, or rubs No peripheral edema Abdominal: Soft Nontender, no guarding, rebound or rigidity Abdomen moving with respiration Normoactive bowel sounds No hepatomegaly, No splenomegaly No palpable mass No abdominal wall hernia noted Skin: Normal temperature, tone, texture, turgor No induration No subcutaneous nodules No rash, lesions No ulcers Extremities: No digital cyanosis No clubbing Pedal pulses intact and symmetrical Radial pulses intact and symmetrical Normal gait and station No calf tenderness Psychiatric: Alert and oriented to person, place and time Appropriate affect Intact judgement Neuro: Muscles Strength 5/5 in all 4 extremities Sensation to light touch grossly present throughout Cranial nerves II-XII grossly intact No focal sensory deficits - Labs CBC & Chem 7: 12/15/17 07:00 12/15/17 07:00 Labs: Microbiology - Last 24 Hours (Table) 12/10/17 22:50 Blood Culture - Preliminary Blood No Growth after 120 hours Assessment and Plan Plan: 1 pneumonia without patient she has bilateral pneumonia, no leukocytosis Patient most likely has aspiration pneumonia, DC clindamycin to 600 mg and to start levaquin and ceftriaxone upon pulmonary recommendation which is appreciated, blood culture are negative so far, respiratory culture are not done because patient has dry cough, repeat chest x-ray on 12/14 shows slight improvement and congestion proBNP 315 (WNL) echo from 11/04/2017 shows EF 55-60% Pulmonary and ID consult is appreciated 2. Hyperlipidemia continue with statin 3. Hypertension continue with Coreg 25 mg twice a day plus hydro-less than 50 mg 3 times a day 4. Hypothyroidism continue with levothyroxine 5. History of PE, continue with xarelto 20 mg daily
--- NOTE | 2017-12-16 11:50 | XR ---
EXAMINATION TYPE: XR chest 1V DATE OF EXAM: 12/16/2017 COMPARISON: Prior chest x-ray 12/14/2017 HISTORY: Pneumonia TECHNIQUE: Single frontal view of the chest is obtained. FINDINGS: Patient is rotated. Heart remains enlarged. There may be some improvement in the central v ascularity and interstitium, aeration as compared to prior exam. No evident pneumothorax or sizable e ffusion. IMPRESSION: Suspect improvement in patient's volume status, aeration within the lungs.
--- NOTE | 2017-12-16 12:38 | CDI ---
Last Revision, August 2017 Documentation Clarification Form Date: 12/16/2017 12:32:00 PM From: Tamika De La O, [facility], CCDS Admit Date: 12/10/2017 10:25:00 PM Patient Name: Magda Lerner Visit Number: [id number] Discharge Date: ATTENTION: The Clinical Documentation Specialists (CDI) and [facility] Coding Staff appreciate your assistance in clarifying documentation. Please respond to the clarification below the line at the bottom and electronically sign. The CDI & [facility] Coding staff will review the response and follow-up if needed. Please note: Queries are made part of the Legal Health Record. If you have any questions, please contact the author of this message via ITS. Dr. Johnson E. Sheet: Per your 12/12 progress note: "This morning patient had an episode of shortness of breath, repeat chest x- ray shows stable pneumonia left pleural effusion possible CHF We will check proBNP, get old electronic records echo results available from this is." History/Risk Factors: Recent admit with PEs, Hypertension, Morbid Obesity w/BMI : 59.9, DM II. Clinical Indicators: Presented with SOB & cough, recent PEs. VS: P 82, R 18-20 (cough), BP 122/86, PO 93 ra. BNP: 315 Echocardiogram Results: 11/04/17: Mild concentric LVH, left ventricular systolic function wnl w/EF 55-60%. Trace TR, Mild pulmonary hypertension. Chest X Rays: 12/10: New bilateral lower lobe pulm: w/bronchopneumonia. heart failure is possible. 12/11: Correlate for CHF, may be pulmonary artery hypertension. 12/12 Stable left side pleural effusion. Correlate for CHF vs pneumonia. 12/14 Slightly improved pulmonary edema. Treatment: Albuterol neb INH, IV Levaquin, IV Aztreonam, IV Clindamycin, IV Lasix 12/12, IV Rocephin, IV Solumedrol,, O2 2-3L nc. In your professional opinion, can you please clarify the acuity and type of CHF if known? Systolic Heart Failure: o Acute o Chronic o Acute on Chronic Diastolic Heart Failure: o Acute o Chronic o Acute on Chronic Systolic & Diastolic Heart Failure: o Acute o Chronic o Acute on Chronic Heart Failure Unable to Determine Other, please specify Please continue to document in your progress notes and discharge summary in order to capture severity of illness and risk of mortality. Include clinical findings that support your diagnosis. Hi All, thank you for your inquiry there is not enough evidence to Diagnose pt with CHF yours, MD TOÑITO Martinez
[2017-12-16] MEDS: cefTRIAXone IN SWFI 1,000 MG/10 ML SYRINGE IVP SCH (14:02)
--- NOTE | 2017-12-16 15:57 | P.PN ---
Subjective Progress Note Date: 12/16/17 Principal diagnosis: Acute bibasilar pneumonia, likely community-acquired Magda is a 57-year-old white female patient of Dr. Umaña, who also sees Dr. Means in the pulmonary office for her history of bronchial asthma and recent history of pulmonary embolism, presented to the emergency department on 2017 at 2019 with complaints of increasing cough, chest congestion, shortness of breath, and wheezing. She was initially seen in the emergency room on Saturday12/07/2017 with complaints of shortness of breath, fever of 102.4F. She was told she had a viral upper respiratory infection, was advised to take some Tylenol and Motrin, and was sent home. Influenza screen at that time was negative. However by Saturday her dyspnea became increasingly worse, she started having nausea, vomiting and diarrhea, her fever persisted, and hence she came back to the emergency room for further evaluation and treatment. Her influenza screen was again negative. White count was within normal limits at 5.6, hemoglobin of 9.2, sodium is 144, potassium is 3.8, chloride is 108, carbon dioxide is 21, B1 is 27, creatinine is 1.10. Troponin was negative 1, proBNP was 427, and on today's labs it was 315. Chest x-ray completed in the emergency room on 12/10/2017 showed new bilateral lower lobe pulmonary infiltrates consistent with bronchopneumonia. There was also pulmonary vascular congestion noted. Chest x-ray from 12/11/2017 and 12/12/2017 showed similar findings. Patient does not wear oxygen at baseline, does not have any inhalers or nebulizers at home, but is currently on supplemental oxygen at 2 L per nasal cannula with O2 sat at 94%. She has been afebrile during this admission. Her nausea, vomiting and diarrhea have resolved. She is complaining of not having any appetite. Lung sounds are positive for scattered wheezes. She states she noticed slightly increased edema in her bilateral lower extremities. Denies any chest pain. Has a cough, however unable to produce any sputum. Patient was hospitalized in October with unprovoked pulmonary embolism, was placed on Xarelto on which she remains. She has a family history of thromboembolic disease in her father, therefore she will require lifelong anticoagulation. She has a remote history of bronchial asthma as a young adult, however office PFT was nondiagnostic of obstructive disease hence she was not treated with any bronchodilators. Her office PFT showed mostly restrictive lung disease. She is a lifetime nonsmoker. Other medical history includes diabetes, obesity, GERD without esophagitis, hyperlipidemia, hypothyroidism, osteoarthritis, chronic lumbar pain, and borderline personality disorder. She has a family history of thromboembolic disease in her father. Patient has a legal guardian, Hang Blankenship. She lives alone, manages her activities of daily living independently, ambulates with a walker, and she states she is fairly active on a regular basis. Patient was started on oral antibiotics in the form of doxycycline, Symbicort, nebulized treatments, and admitted for further management. On 12/13/2017 patient seen in follow-up on medical surgical floor, resting comfortably in bed, still complains of being dyspneic on exertion, seems fairly comfortable at rest. Patient still has congested nonproductive cough, not able to bring up any sputum. Overall she states feels a bit better today. Today's lab work shows no evidence of leukocytosis, and has been afebrile since admission. Currently on 2 L per nasal cannula with O2 sat 95%. Vital signs are stable. Lung sounds are positive for scattered rhonchi and wheezes. Patient's chest x-ray showed bilateral lower lobe pulmonary infiltrates consistent with bronchopneumonia, most likely community-acquired pneumonia, although the possibility of aspiration pneumonia was also considered in view of patient's is and vomiting last week. She has penicillin ALLERGY, patient was started on oral clindamycin, we will switch antibiotics to IV meropenem. Continue with nebulized treatments. Progress note dated 12/15/2017 This is a 57-year-old female who was admitted with a diagnosis of acute bibasal pneumonia. The patient also has a history of recent hospitalization for unprovoked pulmonary embolism a remote history of chronic bronchial asthma lifetime nonsmoker morbid obesity hypothyroidism and diabetes hyperlipidemia hypertension osteoarthritis borderline personality disorder chronic anemia chronic back pain and history of bariatric surgery. She's also on other orthopedic procedures. The patient only minimally improved today. One of the problems is that she's not really getting out of bed. I really encouraged her to have deep breathing coughing and clearing secretions, using her incentive spirometer, and getting out of bed and sitting up in a chair. The patient likely also has a component of restrictive lung disease from morbid obesity. The patient's chest x-ray is somewhat improved. On 12/06/2016 patient seen in follow-up. She is currently on room air, with O2 sat at 98%, afebrile, vital signs are stable. Still states she is mildly short of breath but states this is her baseline. Lung sounds are positive for coarse crackles over left posterior lower lobe. No significant congestion, no sputum production, no hemoptysis, no fever or chills. Was cultures are negative since admission. Patient was not able to produce any sputum for culture. She was treated with empiric antibiotics, currently on Rocephin and Levaquin. Today's labs showed WBC of 6.5, hemoglobin 10.6, electrolytes within normal limits. BUN is 24, creatinine 0.73. Today's chest x-ray showed improvement in patient' s volume status, and aeration within the lungs. Her standpoint patient is stable for discharge home today, she is requesting to go home today Objective - Vital Signs Vital signs: Vital Signs Temp 98.0 F 12/16/17 07:17 Pulse 105 H 12/16/17 08:00 Resp 18 12/16/17 08:00 BP 144/100 12/16/17 07:17 Pulse Ox 90 L 12/16/17 07:17 Intake & Output 12/15/17 12/16/17 12/16/17 18:59 06:59 18:59 Intake Total 1580 1040 Balance 1580 1040 Intake: Oral 1580 1040 Other: Voiding Method Toilet Toilet Toilet # Voids 4 3 - Exam GENERAL EXAM: Alert, pleasant 57-year-old obese white female comfortable in no apparent distress. HEAD: Normocephalic/atraumatic. EYES: Normal reaction of pupils, equal size. Conjunctiva pink, sclera white. NOSE: Clear with pink turbinates. THROAT: No erythema or exudates. NECK: No masses, no JVD, no thyroid enlargement, no adenopathy. CHEST: No chest wall deformity. Symmetrical expansion. LUNGS: Equal air entry with inspiratory crackles over left posterior lower lung , clear on the right CVS: Regular rate and rhythm, normal S1 and S2, no gallops, no murmurs, no rubs ABDOMEN: Soft, nontender. No hepatosplenomegaly, normal bowel sounds, no guarding or rigidity. EXTREMITIES: No clubbing, no cyanosis, 2+ pulses and upper and lower extremities. There is mild 1+ nonpitting lower extremity edema noted MUSCULOSKELETAL: Muscle strength and tone normal. SPINE: No scoliosis or deformity SKIN: No rashes CENTRAL NERVOUS SYSTEM: Alert and oriented -3. No focal deficits, tone is normal in all 4 extremities. PSYCHIATRIC: Alert and oriented -3. Appropriate affect. Intact judgment and insight. - Labs CBC & Chem 7: 12/15/17 07:00 12/15/17 07:00 Labs: Microbiology - Last 24 Hours (Table) 12/10/17 22:50 Blood Culture - Preliminary Blood No Growth after 120 hours Assessment and Plan Plan: Assessment: #1. Acute bibasilar pneumonia, possibly community-acquired, aspiration pneumonia is felt to be less likely. She has been treated with empiric antibiotics with Rocephin and Zithromax initially, and is currently on Rocephin and Levaquin per ID service #2. Recent hospitalization for unprovoked pulmonary embolism, recent has a strong family history of thromboembolic disease in her father, was placed on Xarelto. Will likely need lifelong anticoagulation #3. Remote history of bronchial asthma, however most recent PFT in the office was negative for any evidence of obstructive disease, FEV1 was 82%, with FVC at 74% of predicted, consistent with restrictive disease. #4. Lifetime nonsmoker #5. Morbid obesity #6. Hypothyroidism, on Synthroid #7. Diabetes mellitus #8. Hyperlipidemia, hypertension #9. Osteoarthritis #10. Borderline personality disorder #11. Chronic anemia #12. History of bariatric surgery, hernia repair, total right knee replacement , left hip repair #13. Chronic back pain Plan: Patient remains stable from pulmonary standpoint, no acute events overnight, afebrile, any chills, denies any hemoptysis. She states she is back to her baseline. She is requesting to go home today. With the combination of Rocephin and Levaquin, today's chest x-ray shows improvement in the bottom status and aeration. She is on room air. Patient is stable for discharge home today, follow-up with Dr. Geiger in the office next week I performed a history & physical examination of the patient and discussed their management with my nurse practitioner, Joleen Colbert. I reviewed the nurse practitioner's note and agree with the documented findings and plan of care. Lung sounds are positive for coarse inspiratory crackles over left lower lung. The findings and the impression was discussed with the patient. I attest to the documentation by the nurse practitioner. Time with Patient: Less than 30
--- NOTE | 2017-12-16 16:34 | PN ---
PROGRESS NOTE DATE OF SERVICE: 12/16/2017. REASON FOR FOLLOWUP VISIT: Pneumonia. INTERVAL HISTORY: The patient was seen on rounds this morning. Apparently the patient has been upset and wants to go home. The patient's cough has significantly decreased in intensity. Remains to be dry in nature. The patient denies having any nausea, no vomiting, no choking on the food. No abdominal pain. No diarrhea. EXAMINATION: Blood pressure is 144/100 with a pulse of 105, temperature of 98. She is 92% on room air. General description is a middle-aged female up in the bed in no distress. Respiratory system: Unlabored breathing with decreased breath sounds at the bases, no wheeze. Heart S1, S2. Regular rate and rhythm. Abdomen soft, no tenderness. LABS: BUN of 24, creatinine 0.73, hemoglobin is 10.6, white count 6.5. Blood culture has been negative. DIAGNOSTIC IMPRESSION AND PLAN: Patient admitted to the hospital with difficulty breathing. The patient with question of possible multifocal pneumonia. The patient insisting on going home. A chest x-ray done this morning has showed improvement. Give a short course of oral Levaquin for about a week. Plan of care discussed with Pulmonary as well as the admitting team. Continue supportive care. MMODL / IJN: [id number] /
--- NOTE | 2017-12-17 06:37 | DS ---
DISCHARGE SUMMARY DATE OF ADMISSION: 12/10/2017 DATE OF DISCHARGE: 12/16/2017 FINAL DIAGNOSES: 1. Bilateral pneumonia suspect gram-negative organism present on admission, possible aspiration pneumonia. 2. Hyperlipidemia. 3. Essential hypertension. 4. Hypothyroidism. 5. Chronic pulmonary embolism for which patient is on Xarelto. 6. Chronic lumbar pain from herniated disc. 7. Morbid obesity, body mass index 59.9. 8. Gastroesophageal reflux disease. 9. Restless legs syndrome. 10.Hypothyroid. 11.Chronic urinary stress incontinence. HOSPITAL COURSE: This patient presented with respiratory symptoms mainly cough, short of breath, felt to have pneumonia, some phlegm and some wheezing. Doing much better by the time of discharge, except he was getting better. I discussed with Dr. Domingo from Infectious Disease and Pulmonary also cleared the patient. The patient tolerating a diet well. ON EXAM: LUNGS: Fair entry. PSYCH: AO x3. The patient is afebrile. White count has been normal. DISCHARGE MEDICATIONS: 1. Requip 3 mg p.o. daily. 2. Myrbetriq 50 mg p.o. daily. 3. Lipitor 10 mg at bedtime. 4. Coreg 25 mg b.i.d. 5. Vitamin D3, 1000 units p.o. daily. 6. Claritin 10 mg p.o. daily. 7. Multivitamin 1 tablet p.o. daily. 8. Omeprazole 20 mg p.o. daily. 9. Cymbalta 60 mg p.o. daily. 10.Synthroid 137 mcg p.o. daily. 11.Hydralazine 50 mg p.o. t.i.d. 12.Ventolin HFA 1 or 2 puffs q.4 p.r.n. 13.Hydroxyzine 25 mg p.o. t.i.d. 14.Xarelto 20 mg p.o. daily. 15.Depakote ER 1000 mg p.o. at bedtime. 16.Motrin 800 mg p.o. t.i.d. 17.Requip 4 mg p.o. at bedtime. 18.Trazodone 200 mg at bedtime. 19.Levaquin 750 mg p.o. daily for 7 days. 20.Prednisone 20 mg for [address] Maens on 01/01/2018; Dr. Umaña on 12/21/2017. MMBASILIOL / IJN: [id number] /
== END 2017-12-16 15:27 | disposition home or self-care (01) | DRG 178 ==
LOC: EC 20:19 → 5MS5E 22:25
PROVIDERS: ADMIT Hospitalist; ATTEND Hospitalist
DX: J15.6 Pneumonia due to other Gram-negative bacteria (principal); Z68.43 Body mass index [BMI] 50.0-59.9, adult; I27.82 Chronic pulmonary embolism; J90 Pleural effusion, not elsewhere classified; E66.01 Morbid (severe) obesity due to excess calories; E03.9 Hypothyroidism, unspecified; D64.9 Anemia, unspecified; E11.9 Type 2 diabetes mellitus without complications; E78.5 Hyperlipidemia, unspecified; J69.0 Pneumonitis due to inhalation of food and vomit; I10 Essential (primary) hypertension; J98.4 Other disorders of lung; N39.3 Stress incontinence (female) (male); J45.909 Unspecified asthma, uncomplicated; G25.81 Restless legs syndrome; M51.26 Other intervertebral disc displacement, lumbar region; G89.29 Other chronic pain; K21.9 Gastro-esophageal reflux disease without esophagitis; F60.3 Borderline personality disorder; F41.9 Anxiety disorder, unspecified; F31.9 Bipolar disorder, unspecified; M19.91 Primary osteoarthritis, unspecified site; Z79.01 Long term (current) use of anticoagulants; Z79.1 Long term (current) use of non-steroidal anti-inflammatories (NSAID); Z79.890 Hormone replacement therapy; Z79.899 Other long term (current) drug therapy; Z87.440 Personal history of urinary (tract) infections; Z98.84 Bariatric surgery status; Z87.81 Personal history of (healed) traumatic fracture; Z96.651 Presence of right artificial knee joint; Z88.0 Allergy status to penicillin; Z88.2 Allergy status to sulfonamides; Z88.7 Allergy status to serum and vaccine; Z88.8 Allergy status to other drugs, medicaments and biological substances; Z80.1 Family history of malignant neoplasm of trachea, bronchus and lung; Z83.2 Family history of diseases of the blood and blood-forming organs and certain disorders involving the immune mechanism; Z82.49 Family history of ischemic heart disease and other diseases of the circulatory system; Z83.3 Family history of diabetes mellitus
CPT/HCPCS: 36415; 71045; 71046; 80048; 80053; 82550; 82553; 83735; 83880; 84484; 85025; 85027; 85610; 85730; 87040; 87449; 87502; 94640; 99285

== ENCOUNTER 2017-12-18 16:44 | Emergency (ER) | payer MEDICARE, OTHER ==
[2017-12-18 17:37] VITALS: BP 152/65; PULSE 90; RESP 20; TEMP 98.1
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
== END 2017-12-18 17:50 | disposition home or self-care (01) ==
LOC: EC 16:44
DX: R06.02 Shortness of breath (principal); E78.5 Hyperlipidemia, unspecified; I10 Essential (primary) hypertension; K21.9 Gastro-esophageal reflux disease without esophagitis; E03.9 Hypothyroidism, unspecified; G25.81 Restless legs syndrome; M19.90 Unspecified osteoarthritis, unspecified site; F31.9 Bipolar disorder, unspecified; F41.9 Anxiety disorder, unspecified; E66.01 Morbid (severe) obesity due to excess calories; Z79.1 Long term (current) use of non-steroidal anti-inflammatories (NSAID); Z79.899 Other long term (current) drug therapy; Z88.0 Allergy status to penicillin; Z88.2 Allergy status to sulfonamides; Z88.7 Allergy status to serum and vaccine; Z88.8 Allergy status to other drugs, medicaments and biological substances; Z91.048 Other nonmedicinal substance allergy status; Z68.43 Body mass index [BMI] 50.0-59.9, adult; Z80.1 Family history of malignant neoplasm of trachea, bronchus and lung; Z82.49 Family history of ischemic heart disease and other diseases of the circulatory system
CPT/HCPCS: 93005; 99285

== ENCOUNTER 2017-12-31 12:19 | Emergency (ER) | payer MEDICARE, OTHER ==
[2017-12-31 14:21] LABS: Basophils % (A) 0 %; Eosinophils # (A) 0.2 k/uL (0-0.7); Eosinophils % (A) 2 %; HCT 30.7 % (34.0-46.0); HGB 9.8 gm/dL (11.4-16.0); Lymphocytes # (A) 1.1 k/uL (1.0-4.8); Lymphocytes % (A) 16 %; MCH 27.4 pg (25.0-35.0); MCV 85.6 fL (80.0-100.0); Mean Platelet Volume 7.9; Monocytes # (A) 0.4 k/uL (0-1.0); Monocytes % (A) 5 %; Neutrophils # (A) 5.3 k/uL (1.3-7.7); Neutrophils % (A) 75 %; Platelet Count 326 k/uL (150-450); RBC 3.58 m/uL (3.80-5.40); RDW 14.6 % (11.5-15.5); WBC 7.1 k/uL (3.8-10.6)
[2017-12-31 14:39] LABS: ALT 16 U/L (9-52); AST 22 U/L (14-36); Albumin 3.7 g/dL (3.5-5.0); Alkaline Phosphatase 66 U/L (38-126); Anion Gap 12 mmol/L; Blood Urea Nitrogen 24 mg/dL (7-17); Calcium 9.1 mg/dL (8.4-10.2); Carbon Dioxide 24 mmol/L (22-30); Chloride 108 mmol/L (98-107); Glucose 94 mg/dL (74-99); Magnesium 1.7 mg/dL (1.6-2.3); Potassium 4.5 mmol/L (3.5-5.1); Sodium 144 mmol/L (137-145); Total Bilirubin 0.2 mg/dL (0.2-1.3); Total Protein 6.1 g/dL (6.3-8.2)
--- NOTE | 2017-12-31 14:58 | ED ---
Extremity Problem HPI - General Chief complaint: Extremity Problem,Nontraumatic Stated complaint: Swollen legs Time Seen by Provider: 12/31/17 13:34 Source: patient, RN notes reviewed Mode of arrival: ambulatory Limitations: no limitations - History of Present Illness Initial comments: This is a 57-year-old female presents emergency Department chief complaint of leg swelling. Patient states she has more swelling to the left compared to the right. She does admit that she normally has very large legs secondary to her body habitus. Patient states that she seen by her primary care physician yesterday started on Lasix. Patient states she's taken 20 mg yesterday and today. She is also given potassium. Patient denies any current chest pain, shortness breath, fever, chills, nausea vomiting. Patient states she has been on her legs more than usual. - Related Data Home Medications Medication Instructions Recorded Confirmed rOPINIRole HCL [Requip] 3 mg PO DAILY@0800 05/05/16 12/31/17 Mirabegron [Myrbetriq] 50 mg PO DAILY@0800 05/23/17 12/31/17 Atorvastatin [Lipitor] 10 mg PO HS@199906/07/17 12/31/17 Carvedilol [Coreg] 25 mg PO BID@0800,199906/07/17 12/31/17 Cholecalciferol [Vitamin D3] 1,000 unit PO DAILY@0800 06/07/17 12/31/17 Loratadine [Claritin] 10 mg PO DAILY@0800 06/07/17 12/31/17 Multivitamins, Thera [Multivitamin 1 tab PO DAILY@0800 06/07/17 12/31/17 (formulary)] Omeprazole 20 mg PO DAILY@0800 06/07/17 12/31/17 DULoxetine HCL [Cymbalta] 60 mg PO DAILY@0800 10/20/17 12/31/17 Levothyroxine Sodium [Synthroid] 137 mcg PO DAILY@0800 10/20/17 12/31/17 hydrALAZINE HCL [Apresoline] 50 mg PO TID@0800,1199,199910/20/17 12/31/17 Albuterol Inhaler [Ventolin Hfa 1 - 2 puff INHALATION RT-Q4H PRN 10/24/17 Inhaler] hydrOXYzine PAMOATE 25 mg PO TID 11/11/17 12/31/17 Divalproex ER [Depakote ER] 1,000 mg PO HS 12/10/17 12/31/17 Ibuprofen [Motrin] 800 mg PO TID 12/10/17 12/31/17 rOPINIRole HCL [Requip] 4 mg PO HS@199912/10/17 12/31/17 traZODone HCL 200 mg PO HS 12/10/17 12/31/17 Previous Rx's Medication Instructions Recorded Rivaroxaban [Xarelto] 20 mg PO DAILY 90 Days #90 tab 11/18/17 Allergies Allergy/AdvReac Type Severity Reaction Status Date / Time buspirone [From BuSpar] Allergy Unknown Verified 12/31/17 12:58 haloperidol [From Haldol] Allergy Swelling Verified 12/31/17 12:58 iodine Allergy Swelling Verified 12/31/17 12:58 Penicillins Allergy Swelling Verified 12/31/17 12:58 prochlorperazine Allergy Rash/Hives Verified 12/31/17 12:58 Sulfa (Sulfonamide Allergy Rash/Hives Verified 12/31/17 12:58 Antibiotics) Tetanus Vaccines and Toxoid Allergy Rash/Hives Verified 12/31/17 12:58 [Tetanus Vaccines & Toxoid] trifluoperazine HCl Allergy Unknown Verified 12/31/17 12:58 [From Stelazine] Review of Systems ROS Statement: Those systems with pertinent positive or pertinent negative responses have been documented in the HPI. ROS Other: All systems not noted in ROS Statement are negative. Past Medical History Past Medical History: Asthma, Diabetes Mellitus, GERD/Reflux, Hyperlipidemia, Hypertension, Musculoskeletal Disorder, Osteoarthritis (OA), Pneumonia, Pulmonary Embolus (PE), Thyroid Disorder Additional Past Medical History / Comment(s): Recently diagnosed with asthma and recently treated for bronchitis with antibiotic, diet controlled diabetes, morbid obesity, hypothyroid, UTI, RLS, anemia, lumbar pain with herniated discs. History of Any Multi-Drug Resistant Organisms: None Reported Past Surgical History: Bariatric Surgery, Hernia Repair, Orthopedic Surgery Additional Past Surgical History / Comment(s): Total Right knee replacement, 3 abdominal hernia repairs, left hip repair Past Anesthesia/Blood Transfusion Reactions: No Reported Reaction Past Psychological History: Anxiety, Bipolar, Depression Smoking Status: Never smoker Past Alcohol Use History: None Reported Past Drug Use History: None Reported - Past Family History Mother Family Medical History: Cancer Additional Family Medical History / Comment(s): lung cancer Father Additional Family Medical History / Comment(s): "my dad from a blood clot that traveled from his leg to his lung and also caused a heart attack." Brother(s) Family Medical History: Diabetes Mellitus Sister(s) Additional Family Medical History / Comment(s): "her heart races too fast" General Exam Limitations: no limitations General appearance: alert, in no apparent distress Head exam: Present: atraumatic, normocephalic, normal inspection Respiratory exam: Present: normal lung sounds bilaterally. Absent: respiratory distress, wheezes, rales, rhonchi, stridor Cardiovascular Exam: Present: regular rate, normal rhythm, normal heart sounds. Absent: systolic murmur, diastolic murmur, rubs, gallop, clicks Extremities exam: Present: other (Bilateral lower extremities there is minimal swelling there are noted very large legs, he will call equal warmth and pedal pulses equal bilaterally). Absent: calf tenderness Skin exam: Present: warm, dry, intact, normal color. Absent: rash Course Vital Signs 12/31/17 12:54 Temperature 98.1 F Pulse Rate 90 Respiratory 18 Rate Blood Pressure 135/68 O2 Sat by Pulse 97 Oximetry Medical Decision Making - Medical Decision Making 57 year old female presented for leg swelling. Patient was seen by PCP yesterday. Patient was started on Lasix. Patient does have mild swelling but she has chronic left leg secondary to body habitus. Patient's BMP is only 750. Patient's chest x-ray was improved from prior. Patient has a negative ultrasound. Patient will be discharged on continuation of Lasix. - Lab Data Result diagrams: 12/31/17 14:10 12/31/17 14:10 Lab Results 12/31/17 12/31/17 12/31/17 Range/Units 14:10 14:10 14:10 WBC 7.1 (3.8-10.6) k/uL RBC 3.58 L (3.80-5.40) m/uL Hgb 9.8 L (11.4-16.0) gm/dL Hct 30.7 L (34.0-46.0) % MCV 85.6 (80.0-100.0) fL MCH 27.4 (25.0-35.0) pg MCHC 32.0 (31.0-37.0) g/dL RDW 14.6 (11.5-15.5) % Plt Count 326 (150-450) k/uL Neutrophils % 75 % Lymphocytes % 16 % Monocytes % 5 % Eosinophils % 2 % Basophils % 0 % Neutrophils # 5.3 (1.3-7.7) k/uL Lymphocytes # 1.1 (1.0-4.8) k/uL Monocytes # 0.4 (0-1.0) k/uL Eosinophils # 0.2 (0-0.7) k/uL Basophils # 0.0 (0-0.2) k/uL Sodium 144 (137-145) mmol/L Potassium 4.5 (3.5-5.1) mmol/L Chloride 108 H (98-107) mmol/L Carbon Dioxide 24 (22-30) mmol/L Anion Gap 12 mmol/L BUN 24 H (7-17) mg/dL Creatinine 0.70 (0.52-1.04) mg/dL Est GFR (CKD-EPI)AfAm >90 (>60 ml/min/1.73 sqM) Est GFR (CKD-EPI)NonAf >90 (>60 ml/min/1.73 sqM) Glucose 94 (74-99) mg/dL Calcium 9.1 (8.4-10.2) mg/dL Magnesium 1.7 (1.6-2.3) mg/dL Total Bilirubin 0.2 (0.2-1.3) mg/dL AST 22 (14-36) U/L ALT 16 (9-52) U/L Alkaline Phosphatase 66 (38-126) U/L NT-Pro-B Natriuret Pep 782 pg/mL Total Protein 6.1 L (6.3-8.2) g/dL Albumin 3.7 (3.5-5.0) g/dL Disposition Clinical Impression: Leg edema Disposition: HOME SELF-CARE Condition: Stable Instructions: Leg Edema (ED) Additional Instructions: Please return to the Emergency Department if symptoms worsen or any other concerns. Is patient prescribed a controlled substance at d/c from ED?: No Referrals: Libra Umaña MD [Primary Care Provider] - 1-2 days Time of Disposition: 16:47
--- NOTE | 2017-12-31 15:52 | US ---
EXAMINATION TYPE: US venous doppler duplex LE LT DATE OF EXAM: 12/31/2017 3:35 PM COMPARISON: US CLINICAL HISTORY: Pain. left leg pain x 3 days; history of PE; on Xarelto; large body habitus at 380l bs. SIDE PERFORMED: Left TECHNIQUE: The lower extremity deep venous system is examined utilizing real time linear array sonog rizwan with graded compression, doppler sonography and color-flow sonography. VESSELS IMAGED: Common Femoral Vein Deep Femoral Vein Greater Saphenous Vein * Femoral Vein Popliteal Vein Small Saphenous Vein * Proximal Calf Veins (* superficial vessels) Exam is limited by patient body habitus. Left Leg: Negative for DVT Grayscale, color Doppler, spectral Doppler imaging performed of the deep veins of the left lower extr emity. The left common femoral, superficial femoral, popliteal veins show no abnormal luminal echoes, there is normal compressibility. There are normal venous waveforms. IMPRESSION: No evident deep venous thrombosis. Exam may be limited by patient body habitus. Follow-u p as indicated.
--- NOTE | 2017-12-31 16:26 | XR ---
EXAMINATION TYPE: XR chest 2V DATE OF EXAM: 12/31/2017 COMPARISON: 12/16/2017 HISTORY: 57-year-old female with cough and leg swelling TECHNIQUE: PA and lateral views FINDINGS: Heart upper limits of normal in size. Aorta within normal limits. Diffuse interstitial prominence wit hout pleural effusion. No consolidation. Improved aeration at the left base as compared to prior exam . IMPRESSION: Interval clearance of the patient's previous left basilar pneumonia. There is interstitial prominence that could represent bronchitis or asthma. No focal infiltrate or pleural effusion.
[2017-12-31 17:09] VITALS: BP 140/80; PULSE 87; RESP 16; TEMP 98.6
== END 2017-12-31 17:08 | disposition home or self-care (01) ==
LOC: EC 12:19 → EEVIPCON 12:19 → EC 17:08
DX: R60.0 Localized edema (principal); K21.9 Gastro-esophageal reflux disease without esophagitis; E78.5 Hyperlipidemia, unspecified; I10 Essential (primary) hypertension; M19.90 Unspecified osteoarthritis, unspecified site; E03.9 Hypothyroidism, unspecified; F41.9 Anxiety disorder, unspecified; F32.9 Major depressive disorder, single episode, unspecified; G25.81 Restless legs syndrome; E66.01 Morbid (severe) obesity due to excess calories; Z68.44 Body mass index [BMI] 60.0-69.9, adult; Z86.711 Personal history of pulmonary embolism; Z96.651 Presence of right artificial knee joint; Z79.899 Other long term (current) drug therapy; Z79.02 Long term (current) use of antithrombotics/antiplatelets; Z79.1 Long term (current) use of non-steroidal anti-inflammatories (NSAID); Z88.8 Allergy status to other drugs, medicaments and biological substances; Z91.048 Other nonmedicinal substance allergy status; Z88.0 Allergy status to penicillin; Z88.2 Allergy status to sulfonamides; Z88.7 Allergy status to serum and vaccine
CPT/HCPCS: 36415; 71046; 80053; 83735; 83880; 85025; 99284

== ENCOUNTER 2018-01-08 18:35 | Observation (INO) | payer MEDICARE, OTHER ==
[2018-01-08] MEDS ORDERED: IPRATROPIUM 0.5 MG/2.5 ML NEBU INHALATION STA (18:57)
[2018-01-08] MEDS ORDERED: SODIUM CHLORIDE 0.9% 1,000 ML IV STA (18:57)
[2018-01-08] MEDS ORDERED: ALBUTEROL NEBULIZED 2.5 MG/3 ML INHALATION STA (18:57)
--- NOTE | 2018-01-08 19:42 | ED ---
General Adult HPI - General Chief complaint: Shortness of Breath Stated complaint: SJ Time Seen by Provider: 01/08/18 18:37 Source: patient, RN notes reviewed, old records reviewed Mode of arrival: EMS Limitations: no limitations - History of Present Illness Initial comments: This is a 57-year-old female the ER for evasive shortness of breath. Patient states she had severe shortness of breath started today on the bus. She denies chest pain no pain in general. Patient states she is having a difficult time catching her breath difficult time taking a deep breath. No recent travel history or sick contacts. Patient was admitted to the hospital about a month ago for double pneumonia - Related Data Home Medications Medication Instructions Recorded Confirmed rOPINIRole HCL [Requip] 3 mg PO DAILY 05/05/16 01/08/18 Mirabegron [Myrbetriq] 50 mg PO DAILY 05/23/17 01/08/18 Atorvastatin [Lipitor] 10 mg PO HS 06/07/17 01/08/18 Carvedilol [Coreg] 25 mg PO BID 06/07/17 01/08/18 Cholecalciferol [Vitamin D3] 10,000 unit PO DAILY 06/07/17 01/08/18 Loratadine [Claritin] 10 mg PO DAILY 06/07/17 01/08/18 Multivitamins, Thera [Multivitamin 1 tab PO DAILY 06/07/17 01/08/18 (formulary)] Omeprazole 20 mg PO DAILY 06/07/17 01/08/18 DULoxetine HCL [Cymbalta] 60 mg PO DAILY 10/20/17 01/08/18 Levothyroxine Sodium [Synthroid] 137 mcg PO DAILY 10/20/17 01/08/18 hydrALAZINE HCL [Apresoline] 50 mg PO TID 10/20/17 01/08/18 hydrOXYzine PAMOATE 25 mg PO TID 11/11/17 01/08/18 Divalproex ER [Depakote ER] 1,000 mg PO HS 12/10/17 01/08/18 Ibuprofen [Motrin] 800 mg PO TID 12/10/17 01/08/18 rOPINIRole HCL [Requip] 4 mg PO HS 12/10/17 01/08/18 traZODone HCL 200 mg PO HS 12/10/17 01/08/18 Furosemide [Lasix] 20 mg PO DAILY 01/08/18 01/08/18 Potassium Chloride Er(Unknown) 1 tab PO DAILY 01/08/18 01/08/18 Previous Rx's Medication Instructions Recorded Rivaroxaban [Xarelto] 20 mg PO DAILY 90 Days #90 tab 11/18/17 Allergies Allergy/AdvReac Type Severity Reaction Status Date / Time buspirone [From BuSpar] Allergy Unknown Verified 01/08/18 18:51 haloperidol [From Haldol] Allergy Swelling Verified 01/08/18 18:51 iodine Allergy Swelling Verified 01/08/18 18:51 Penicillins Allergy Swelling Verified 01/08/18 18:51 prochlorperazine Allergy Rash/Hives Verified 01/08/18 18:51 Sulfa (Sulfonamide Allergy Rash/Hives Verified 01/08/18 18:51 Antibiotics) Tetanus Vaccines and Toxoid Allergy Rash/Hives Verified 01/08/18 18:51 [Tetanus Vaccines & Toxoid] trifluoperazine HCl Allergy Unknown Verified 01/08/18 18:51 [From Stelazine] Review of Systems ROS Statement: Those systems with pertinent positive or pertinent negative responses have been documented in the HPI. ROS Other: All systems not noted in ROS Statement are negative. Past Medical History Past Medical History: Asthma, Diabetes Mellitus, GERD/Reflux, Hyperlipidemia, Hypertension, Musculoskeletal Disorder, Osteoarthritis (OA), Pneumonia, Pulmonary Embolus (PE), Thyroid Disorder Additional Past Medical History / Comment(s): Recently diagnosed with asthma and recently treated for bronchitis with antibiotic, diet controlled diabetes, morbid obesity, hypothyroid, UTI, RLS, anemia, lumbar pain with herniated discs. History of Any Multi-Drug Resistant Organisms: None Reported Past Surgical History: Bariatric Surgery, Hernia Repair, Orthopedic Surgery Additional Past Surgical History / Comment(s): Total Right knee replacement, 3 abdominal hernia repairs, left hip repair Past Anesthesia/Blood Transfusion Reactions: No Reported Reaction Past Psychological History: Anxiety, Bipolar, Depression Smoking Status: Never smoker Past Alcohol Use History: None Reported Past Drug Use History: None Reported - Past Family History Mother Family Medical History: Cancer Additional Family Medical History / Comment(s): lung cancer Father Additional Family Medical History / Comment(s): "my dad from a blood clot that traveled from his leg to his lung and also caused a heart attack." Brother(s) Family Medical History: Diabetes Mellitus Sister(s) Additional Family Medical History / Comment(s): "her heart races too fast" General Exam Limitations: no limitations General appearance: obese Head exam: Present: atraumatic, normocephalic, normal inspection Eye exam: Present: normal appearance, PERRL, EOMI. Absent: scleral icterus, conjunctival injection, periorbital swelling ENT exam: Present: normal exam, mucous membranes moist Neck exam: Present: normal inspection. Absent: tenderness, meningismus, lymphadenopathy Respiratory exam: Present: normal lung sounds bilaterally. Absent: respiratory distress, wheezes, rales, rhonchi, stridor Cardiovascular Exam: Present: regular rate, normal rhythm, normal heart sounds. Absent: systolic murmur, diastolic murmur, rubs, gallop, clicks GI/Abdominal exam: Present: soft, normal bowel sounds. Absent: distended, tenderness, guarding, rebound, rigid Extremities exam: Present: normal inspection, full ROM, normal capillary refill. Absent: tenderness, pedal edema, joint swelling, calf tenderness Back exam: Present: normal inspection Neurological exam: Present: alert, oriented X3, CN II-XII intact Psychiatric exam: Present: normal affect, normal mood Skin exam: Present: warm, dry, intact, normal color. Absent: rash Course Vital Signs 01/08/18 01/08/18 01/08/18 18:45 19:11 19:36 Temperature 98.6 F Pulse Rate 98 84 88 Respiratory 22 Rate Blood Pressure 110/53 O2 Sat by Pulse 98 Oximetry 01/08/18 01/08/18 19:47 19:52 Temperature Pulse Rate 80 87 Respiratory 20 Rate Blood Pressure 106/56 O2 Sat by Pulse 96 Oximetry - Reevaluation(s) Reevaluation #1: 01/08/18 19:40 Patient does have significant improvement after breathing treatment Reevaluation #2: 01/08/18 20:42 Patient has no clinical improvement at this time not feeling good enough to be discharged home EKG Findings - EKG Comments: EKG Findings:: EKG shows normal sinus rhythm rate 88 rate of 88, WA 128, QRS 90 , QTc 454 Medical Decision Making - Medical Decision Making 57 female the ER for evaluation. She presents today for evaluation regarding shortness of breath, mild CHF and COPD exacerbation. We'll admit for observation and diuresis - Lab Data Result diagrams: 01/08/18 19:30 01/08/18 19:30 Lab Results 01/08/18 01/08/18 01/08/18 Range/Units 19:30 19:30 19:30 WBC 7.8 (3.8-10.6) k/uL RBC 3.49 L (3.80-5.40) m/uL Hgb 9.6 L (11.4-16.0) gm/dL Hct 30.0 L (34.0-46.0) % MCV 85.9 (80.0-100.0) fL MCH 27.6 (25.0-35.0) pg MCHC 32.1 (31.0-37.0) g/dL RDW 14.6 (11.5-15.5) % Plt Count 266 (150-450) k/uL Neutrophils % 66 % Lymphocytes % 20 % Monocytes % 8 % Eosinophils % 3 % Basophils % 0 % Neutrophils # 5.2 (1.3-7.7) k/uL Lymphocytes # 1.5 (1.0-4.8) k/uL Monocytes # 0.6 (0-1.0) k/uL Eosinophils # 0.2 (0-0.7) k/uL Basophils # 0.0 (0-0.2) k/uL PT (9.0-12.0) sec INR (<1.2) APTT (22.0-30.0) sec Sodium 140 (137-145) mmol/L Potassium 4.5 (3.5-5.1) mmol/L Chloride 104 (98-107) mmol/L Carbon Dioxide 22 (22-30) mmol/L Anion Gap 14 mmol/L BUN 35 H (7-17) mg/dL Creatinine 0.95 (0.52-1.04) mg/dL Est GFR (CKD-EPI)AfAm 78 (>60 ml/min/1.73 sqM) Est GFR (CKD-EPI)NonAf 68 (>60 ml/min/1.73 sqM) Glucose 95 (74-99) mg/dL Calcium 8.8 (8.4-10.2) mg/dL Magnesium 1.9 (1.6-2.3) mg/dL Total Bilirubin 0.2 (0.2-1.3) mg/dL AST 20 (14-36) U/L ALT 20 (9-52) U/L Alkaline Phosphatase 67 (38-126) U/L Total Creatine Kinase 33 (30-135) U/L CK-MB (CK-2) 0.6 (0.0-2.4) ng/mL CK-MB (CK-2) Rel Index 1.8 Troponin I <0.012 (0.000-0.034) ng/mL NT-Pro-B Natriuret Pep pg/mL Total Protein 6.0 L (6.3-8.2) g/dL Albumin 3.7 (3.5-5.0) g/dL 01/08/18 01/08/18 Range/Units 19:30 19:30 WBC (3.8-10.6) k/uL RBC (3.80-5.40) m/uL Hgb (11.4-16.0) gm/dL Hct (34.0-46.0) % MCV (80.0-100.0) fL MCH (25.0-35.0) pg MCHC (31.0-37.0) g/dL RDW (11.5-15.5) % Plt Count (150-450) k/uL Neutrophils % % Lymphocytes % % Monocytes % % Eosinophils % % Basophils % % Neutrophils # (1.3-7.7) k/uL Lymphocytes # (1.0-4.8) k/uL Monocytes # (0-1.0) k/uL Eosinophils # (0-0.7) k/uL Basophils # (0-0.2) k/uL PT 10.6 (9.0-12.0) sec INR 1.1 (<1.2) APTT 26.8 (22.0-30.0) sec Sodium (137-145) mmol/L Potassium (3.5-5.1) mmol/L Chloride (98-107) mmol/L Carbon Dioxide (22-30) mmol/L Anion Gap mmol/L BUN (7-17) mg/dL Creatinine (0.52-1.04) mg/dL Est GFR (CKD-EPI)AfAm (>60 ml/min/1.73 sqM) Est GFR (CKD-EPI)NonAf (>60 ml/min/1.73 sqM) Glucose (74-99) mg/dL Calcium (8.4-10.2) mg/dL Magnesium (1.6-2.3) mg/dL Total Bilirubin (0.2-1.3) mg/dL AST (14-36) U/L ALT (9-52) U/L Alkaline Phosphatase (38-126) U/L Total Creatine Kinase (30-135) U/L CK-MB (CK-2) (0.0-2.4) ng/mL CK-MB (CK-2) Rel Index Troponin I (0.000-0.034) ng/mL NT-Pro-B Natriuret Pep 469 pg/mL Total Protein (6.3-8.2) g/dL Albumin (3.5-5.0) g/dL - Radiology Data Radiology results: report reviewed (Chest x-ray mild CHF), image reviewed Disposition Clinical Impression: Acute pulmonary edema, Acute exacerbation of chronic obstructive airways disease Disposition: ADMITTED IP TO THIS HOSP Condition: Fair Referrals: Libra Umaña MD [Primary Care Provider] - 1-2 days
--- NOTE | 2018-01-08 19:45 | XR ---
EXAMINATION TYPE: XR chest 2V DATE OF EXAM: 01/08/2018 COMPARISON: January 01, 2018 HISTORY: Short of breath TECHNIQUE: Frontal and lateral views of the chest are obtained. FINDINGS: Heart and mediastinum appear normal. There is poor inspiration. There is mild pulmonary va scular congestion. Bony thorax is intact. There is spurring in the thoracic spine. There are chest le ads. There is no pleural effusion. IMPRESSION: Mild pulmonary vascular congestion is the same or increased compared to last exam. Poor inspiration. Mild heart failure is possible.
[2018-01-08 19:51] VITALS: RESP 20
[2018-01-08 19:53] LABS: Basophils % (A) 0 %; Eosinophils # (A) 0.2 k/uL (0-0.7); Eosinophils % (A) 3 %; HGB 9.6 gm/dL (11.4-16.0); Lymphocytes # (A) 1.5 k/uL (1.0-4.8); Lymphocytes % (A) 20 %; MCH 27.6 pg (25.0-35.0); MCHC 32.1 g/dL (31.0-37.0); MCV 85.9 fL (80.0-100.0); Mean Platelet Volume 8.2; Monocytes # (A) 0.6 k/uL (0-1.0); Monocytes % (A) 8 %; Neutrophils # (A) 5.2 k/uL (1.3-7.7); Neutrophils % (A) 66 %; Platelet Count 266 k/uL (150-450); RBC 3.49 m/uL (3.80-5.40); RDW 14.6 % (11.5-15.5); WBC 7.8 k/uL (3.8-10.6)
[2018-01-08 20:02] LABS: INR 1.1 (<1.2); Partial Thromboplastin Time 26.8 sec (22.0-30.0); Prothrombin Time 10.6 sec (9.0-12.0)
[2018-01-08 20:05] LABS: Albumin 3.7 g/dL (3.5-5.0); Calcium 8.8 mg/dL (8.4-10.2); Magnesium 1.9 mg/dL (1.6-2.3); Potassium 4.5 mmol/L (3.5-5.1); Total Bilirubin 0.2 mg/dL (0.2-1.3)
[2018-01-08 20:16] LABS: Creatine Kinase 33 U/L (30-135)
[2018-01-08 20:29] LABS: Creatine Kinase MB 0.6 ng/mL (0.0-2.4); Troponin I <0.012 ng/mL (0.000-0.034)
[2018-01-08] MEDS ORDERED: methylPREDNISolone SOD SUCCI 125 MG/2 ML VIAL IV STA (20:42)
--- NOTE | 2018-01-08 21:39 | ED ---
Medical Decision Making - Lab Data Result diagrams: 01/08/18 19:30 01/08/18 19:30 Lab Results 01/08/18 01/08/18 01/08/18 Range/Units 19:30 19:30 19:30 WBC 7.8 (3.8-10.6) k/uL RBC 3.49 L (3.80-5.40) m/uL Hgb 9.6 L (11.4-16.0) gm/dL Hct 30.0 L (34.0-46.0) % MCV 85.9 (80.0-100.0) fL MCH 27.6 (25.0-35.0) pg MCHC 32.1 (31.0-37.0) g/dL RDW 14.6 (11.5-15.5) % Plt Count 266 (150-450) k/uL Neutrophils % 66 % Lymphocytes % 20 % Monocytes % 8 % Eosinophils % 3 % Basophils % 0 % Neutrophils # 5.2 (1.3-7.7) k/uL Lymphocytes # 1.5 (1.0-4.8) k/uL Monocytes # 0.6 (0-1.0) k/uL Eosinophils # 0.2 (0-0.7) k/uL Basophils # 0.0 (0-0.2) k/uL PT (9.0-12.0) sec INR (<1.2) APTT (22.0-30.0) sec Sodium 140 (137-145) mmol/L Potassium 4.5 (3.5-5.1) mmol/L Chloride 104 (98-107) mmol/L Carbon Dioxide 22 (22-30) mmol/L Anion Gap 14 mmol/L BUN 35 H (7-17) mg/dL Creatinine 0.95 (0.52-1.04) mg/dL Est GFR (CKD-EPI)AfAm 78 (>60 ml/min/1.73 sqM) Est GFR (CKD-EPI)NonAf 68 (>60 ml/min/1.73 sqM) Glucose 95 (74-99) mg/dL Calcium 8.8 (8.4-10.2) mg/dL Magnesium 1.9 (1.6-2.3) mg/dL Total Bilirubin 0.2 (0.2-1.3) mg/dL AST 20 (14-36) U/L ALT 20 (9-52) U/L Alkaline Phosphatase 67 (38-126) U/L Total Creatine Kinase 33 (30-135) U/L CK-MB (CK-2) 0.6 (0.0-2.4) ng/mL CK-MB (CK-2) Rel Index 1.8 Troponin I <0.012 (0.000-0.034) ng/mL NT-Pro-B Natriuret Pep pg/mL Total Protein 6.0 L (6.3-8.2) g/dL Albumin 3.7 (3.5-5.0) g/dL 01/08/18 01/08/18 Range/Units 19:30 19:30 WBC (3.8-10.6) k/uL RBC (3.80-5.40) m/uL Hgb (11.4-16.0) gm/dL Hct (34.0-46.0) % MCV (80.0-100.0) fL MCH (25.0-35.0) pg MCHC (31.0-37.0) g/dL RDW (11.5-15.5) % Plt Count (150-450) k/uL Neutrophils % % Lymphocytes % % Monocytes % % Eosinophils % % Basophils % % Neutrophils # (1.3-7.7) k/uL Lymphocytes # (1.0-4.8) k/uL Monocytes # (0-1.0) k/uL Eosinophils # (0-0.7) k/uL Basophils # (0-0.2) k/uL PT 10.6 (9.0-12.0) sec INR 1.1 (<1.2) APTT 26.8 (22.0-30.0) sec Sodium (137-145) mmol/L Potassium (3.5-5.1) mmol/L Chloride (98-107) mmol/L Carbon Dioxide (22-30) mmol/L Anion Gap mmol/L BUN (7-17) mg/dL Creatinine (0.52-1.04) mg/dL Est GFR (CKD-EPI)AfAm (>60 ml/min/1.73 sqM) Est GFR (CKD-EPI)NonAf (>60 ml/min/1.73 sqM) Glucose (74-99) mg/dL Calcium (8.4-10.2) mg/dL Magnesium (1.6-2.3) mg/dL Total Bilirubin (0.2-1.3) mg/dL AST (14-36) U/L ALT (9-52) U/L Alkaline Phosphatase (38-126) U/L Total Creatine Kinase (30-135) U/L CK-MB (CK-2) (0.0-2.4) ng/mL CK-MB (CK-2) Rel Index Troponin I (0.000-0.034) ng/mL NT-Pro-B Natriuret Pep 469 pg/mL Total Protein (6.3-8.2) g/dL Albumin (3.5-5.0) g/dL Disposition Clinical Impression: Acute pulmonary edema, Acute exacerbation of chronic obstructive airways disease Disposition: Left Against Medical Advice Condition: Fair Is patient prescribed a controlled substance at d/c from ED?: No
[2018-01-08] MEDS ORDERED: FUROSEMIDE 10 MG/ML 4 ML VIAL IV SCH (22:00)
[2018-01-08 22:07] VITALS: BP 122/56; PULSE 82; TEMP 98.9
[2018-01-09] MEDS ORDERED: methylPREDNISolone SOD SUCCI 125 MG/2 ML VIAL IV SCH (06:00)
[2018-01-09] MEDS ORDERED: IPRATROPIUM-ALBUTEROL 3 ML NEB INHALATION SCH (08:00)
== END 2018-01-08 21:39 | disposition left against medical advice (07) ==
LOC: EC 18:35 → 6SEL 20:41
PROVIDERS: ADMIT Hospitalist; ATTEND Hospitalist
DX: I50.9 Heart failure, unspecified (principal); J44.1 Chronic obstructive pulmonary disease with (acute) exacerbation; Z53.21 Procedure and treatment not carried out due to patient leaving prior to being seen by health care provider; Z79.899 Other long term (current) drug therapy; Z79.890 Hormone replacement therapy; Z79.1 Long term (current) use of non-steroidal anti-inflammatories (NSAID); Z88.0 Allergy status to penicillin; Z88.2 Allergy status to sulfonamides; Z88.7 Allergy status to serum and vaccine; Z88.8 Allergy status to other drugs, medicaments and biological substances; Z91.048 Other nonmedicinal substance allergy status; J45.909 Unspecified asthma, uncomplicated; E11.9 Type 2 diabetes mellitus without complications; K21.9 Gastro-esophageal reflux disease without esophagitis; E78.5 Hyperlipidemia, unspecified; I10 Essential (primary) hypertension; M19.90 Unspecified osteoarthritis, unspecified site; Z87.01 Personal history of pneumonia (recurrent); Z86.711 Personal history of pulmonary embolism; E03.9 Hypothyroidism, unspecified; Z87.09 Personal history of other diseases of the respiratory system; E66.01 Morbid (severe) obesity due to excess calories; Z68.44 Body mass index [BMI] 60.0-69.9, adult; Z87.440 Personal history of urinary (tract) infections; G25.81 Restless legs syndrome; D64.9 Anemia, unspecified; M54.5 Low back pain; Z98.84 Bariatric surgery status; F41.9 Anxiety disorder, unspecified; F31.9 Bipolar disorder, unspecified; Z80.1 Family history of malignant neoplasm of trachea, bronchus and lung
CPT/HCPCS: 36415; 71046; 80053; 82550; 82553; 83735; 83880; 84484; 85025; 85610; 85730; 93005; 94644; 96361; 96374; 99285

== ENCOUNTER 2018-01-09 09:34 | Emergency (ER) | payer MEDICARE, OTHER ==
[2018-01-09 09:42] VITALS: BP 187/88; PULSE 87; RESP 34; TEMP 98.3
[2018-01-09] MEDS ORDERED: LORazepam 2 MG/ML INJ IV STA (09:51)
--- NOTE | 2018-01-09 09:55 | ED ---
General Adult HPI - General Chief complaint: Shortness of Breath Stated complaint: Diff Breathing Time Seen by Provider: 01/09/18 09:36 Source: patient, RN notes reviewed Mode of arrival: EMS Limitations: no limitations - History of Present Illness Initial comments: 57-year-old female presenting for evaluation of dyspnea. Patient has history of COPD, DVT currently on anticoagulation, and multiple episodes of pneumonia. She was seen in the emergency department yesterday and was recommended the patient stay for her breathing. She declined admission and wanted to be home with her cat. Patient was getting her medications refilled at [facility], there was an issue refilling several of her medications including her anxiety medication, she began having worsening dyspnea. Patient denies significant cough. Denies fever or chills. Denies chest pain. Denies lower extremity swelling. - Related Data Home Medications Medication Instructions Recorded Confirmed rOPINIRole HCL [Requip] 3 mg PO DAILY 05/05/16 01/09/18 Mirabegron [Myrbetriq] 50 mg PO DAILY 05/23/17 01/09/18 Atorvastatin [Lipitor] 10 mg PO HS 06/07/17 01/09/18 Carvedilol [Coreg] 25 mg PO BID 06/07/17 01/09/18 Cholecalciferol [Vitamin D3] 10,000 unit PO DAILY 06/07/17 01/09/18 Loratadine [Claritin] 10 mg PO DAILY 06/07/17 01/09/18 Multivitamins, Thera [Multivitamin 1 tab PO DAILY 06/07/17 01/09/18 (formulary)] Omeprazole 20 mg PO DAILY 06/07/17 01/09/18 DULoxetine HCL [Cymbalta] 60 mg PO DAILY 10/20/17 01/09/18 Levothyroxine Sodium [Synthroid] 137 mcg PO DAILY 10/20/17 01/09/18 hydrALAZINE HCL [Apresoline] 50 mg PO TID 10/20/17 01/09/18 hydrOXYzine PAMOATE 25 mg PO TID 11/11/17 01/09/18 Divalproex ER [Depakote ER] 1,000 mg PO HS 12/10/17 01/09/18 Ibuprofen [Motrin] 800 mg PO TID 12/10/17 01/09/18 rOPINIRole HCL [Requip] 4 mg PO HS 12/10/17 01/09/18 traZODone HCL 200 mg PO HS 12/10/17 01/09/18 Furosemide [Lasix] 20 mg PO DAILY 01/08/18 01/09/18 Potassium Chloride Er(Unknown) 1 tab PO DAILY 01/08/18 01/09/18 Previous Rx's Medication Instructions Recorded Rivaroxaban [Xarelto] 20 mg PO DAILY 90 Days #90 tab 11/18/17 Allergies Allergy/AdvReac Type Severity Reaction Status Date / Time buspirone [From BuSpar] Allergy Unknown Verified 01/09/18 09:45 haloperidol [From Haldol] Allergy Swelling Verified 01/09/18 09:45 iodine Allergy Swelling Verified 01/09/18 09:45 Penicillins Allergy Swelling Verified 01/09/18 09:45 prochlorperazine Allergy Rash/Hives Verified 01/09/18 09:45 Sulfa (Sulfonamide Allergy Rash/Hives Verified 01/09/18 09:45 Antibiotics) Tetanus Vaccines and Toxoid Allergy Rash/Hives Verified 01/09/18 09:45 [Tetanus Vaccines & Toxoid] trifluoperazine HCl Allergy Unknown Verified 01/09/18 09:45 [From Stelazine] Review of Systems ROS Statement: Those systems with pertinent positive or pertinent negative responses have been documented in the HPI. ROS Other: All systems not noted in ROS Statement are negative. Past Medical History Past Medical History: Asthma, Diabetes Mellitus, GERD/Reflux, Hyperlipidemia, Hypertension, Musculoskeletal Disorder, Osteoarthritis (OA), Pneumonia, Pulmonary Embolus (PE), Thyroid Disorder Additional Past Medical History / Comment(s): Recently diagnosed with asthma and recently treated for bronchitis with antibiotic, diet controlled diabetes, morbid obesity, hypothyroid, UTI, RLS, anemia, lumbar pain with herniated discs. History of Any Multi-Drug Resistant Organisms: None Reported Past Surgical History: Bariatric Surgery, Hernia Repair, Orthopedic Surgery Additional Past Surgical History / Comment(s): Total Right knee replacement, 3 abdominal hernia repairs, left hip repair Past Anesthesia/Blood Transfusion Reactions: No Reported Reaction Past Psychological History: Anxiety, Bipolar, Depression Smoking Status: Never smoker Past Alcohol Use History: Occasional Past Drug Use History: None Reported - Past Family History Mother Family Medical History: Cancer Additional Family Medical History / Comment(s): lung cancer Father Additional Family Medical History / Comment(s): "my dad from a blood clot that traveled from his leg to his lung and also caused a heart attack." Brother(s) Family Medical History: Diabetes Mellitus Sister(s) Additional Family Medical History / Comment(s): "her heart races too fast" General Exam Limitations: no limitations General appearance: alert, anxious Head exam: Present: atraumatic, normocephalic Eye exam: Present: normal appearance, PERRL ENT exam: Present: normal exam Neck exam: Present: normal inspection. Absent: tenderness, meningismus Respiratory exam: Present: other (Tachypnea, with good air entry). Absent: respiratory distress, wheezes, rales Cardiovascular Exam: Present: regular rate, normal rhythm GI/Abdominal exam: Present: soft. Absent: distended, tenderness Extremities exam: Present: normal capillary refill. Absent: pedal edema Neurological exam: Present: alert, oriented X3, CN II-XII intact. Absent: motor sensory deficit Psychiatric exam: Present: normal affect, normal mood Skin exam: Present: warm, dry, intact. Absent: cyanosis, diaphoretic Course Vital Signs 01/09/18 09:36 Temperature 98.3 F Pulse Rate 87 Respiratory 34 H Rate Blood Pressure 187/88 O2 Sat by Pulse 93 L Oximetry Medical Decision Making - Medical Decision Making 51 sexual female presenting for dyspnea. On initial exam this does appear to be primarily anxiety. Patient elopes prior to full evaluation which included CBC, CMP, EKG, troponin, BNP, and chest x-ray. None of these studies were obtained. Diagnosis dyspnea, disposition: Elopement Disposition Clinical Impression: Anxiety, Dyspnea Disposition: Left Against Medical Advice Condition: Stable Is patient prescribed a controlled substance at d/c from ED?: No Referrals: Libra Umaña MD [Primary Care Provider] - 1-2 days Time of Disposition: 10:43
== END 2018-01-09 10:49 | disposition left against medical advice (07) ==
LOC: EC 09:34
DX: F41.9 Anxiety disorder, unspecified (principal); R06.00 Dyspnea, unspecified; J44.9 Chronic obstructive pulmonary disease, unspecified; K21.9 Gastro-esophageal reflux disease without esophagitis; E78.5 Hyperlipidemia, unspecified; I10 Essential (primary) hypertension; M19.90 Unspecified osteoarthritis, unspecified site; E03.9 Hypothyroidism, unspecified; G25.81 Restless legs syndrome; F32.9 Major depressive disorder, single episode, unspecified; E66.01 Morbid (severe) obesity due to excess calories; Z68.44 Body mass index [BMI] 60.0-69.9, adult; Z86.711 Personal history of pulmonary embolism; Z86.718 Personal history of other venous thrombosis and embolism; Z96.651 Presence of right artificial knee joint; Z79.1 Long term (current) use of non-steroidal anti-inflammatories (NSAID); Z79.02 Long term (current) use of antithrombotics/antiplatelets; Z79.899 Other long term (current) drug therapy; Z88.8 Allergy status to other drugs, medicaments and biological substances; Z91.018 Allergy to other foods; Z88.0 Allergy status to penicillin; Z88.2 Allergy status to sulfonamides; Z88.7 Allergy status to serum and vaccine
CPT/HCPCS: 99285

== ENCOUNTER 2018-01-13 16:22 | Inpatient (IN) | payer MEDICARE, OTHER ==
[2018-01-13] MEDS ORDERED: IPRATROPIUM-ALBUTEROL 3 ML NEB INHALATION STA (16:30)
[2018-01-13 16:50] LABS: ABG Base Excess -2.5 mmol/L; ABG HCO3 21 mmol/L (21-25); ABG PCO2 30 mmHg (35-45); ABG PH 7.47 (7.35-7.45); ABG PO2 91 mmHg (83-108); ABG TCO2 22 mmol/L (19-24)
--- NOTE | 2018-01-13 16:54 | ED ---
General Adult HPI - General Chief complaint: Shortness of Breath Stated complaint: SOB Time Seen by Provider: 01/13/18 16:25 Source: EMS Mode of arrival: EMS Limitations: no limitations - History of Present Illness Initial comments: This is a 57-year-old female who presents emergency department for shortness of breath. She states that the symptoms been going on for last couple of days and worsened today. She states she is having an extremely difficult time getting her breath. She admits to a mild cough and mild chest pain associated with this. Denies any fevers or chills. No lower Chevys swelling. No recent travel or surgeries. No recent sick contacts. The patient was seen here multiple times over the last few days and was recommended to stay in the hospital however left AGAINST MEDICAL ADVICE both times. She states that she is not anxious however does a lot of her symptoms have been treated to anxiety in the past. She does have a history of COPD however is not oxygen dependent. She was given 2 albuterol treatments in route and 8 dose of Solu-Medrol. The bicycle taxi driver who was familiar with her stated that this was one of the worst that he is seen her. No other acute complaints at this time. - Related Data Home Medications Medication Instructions Recorded Confirmed rOPINIRole HCL [Requip] 3 mg PO DAILY 05/05/16 01/13/18 Mirabegron [Myrbetriq] 50 mg PO DAILY 05/23/17 01/13/18 Atorvastatin [Lipitor] 10 mg PO HS 06/07/17 01/13/18 Carvedilol [Coreg] 25 mg PO BID 06/07/17 01/13/18 Cholecalciferol [Vitamin D3] 10,000 unit PO DAILY 06/07/17 01/13/18 Loratadine [Claritin] 10 mg PO DAILY 06/07/17 01/13/18 Multivitamins, Thera [Multivitamin 1 tab PO DAILY 06/07/17 01/13/18 (formulary)] Omeprazole 20 mg PO DAILY 06/07/17 01/13/18 DULoxetine HCL [Cymbalta] 60 mg PO DAILY 10/20/17 01/13/18 Levothyroxine Sodium [Synthroid] 137 mcg PO DAILY 10/20/17 01/13/18 hydrALAZINE HCL [Apresoline] 50 mg PO TID 10/20/17 01/13/18 hydrOXYzine PAMOATE 25 mg PO TID 11/11/17 01/13/18 Divalproex ER [Depakote ER] 1,000 mg PO HS 12/10/17 01/13/18 Ibuprofen [Motrin] 800 mg PO TID 12/10/17 01/13/18 rOPINIRole HCL [Requip] 4 mg PO HS 12/10/17 01/13/18 traZODone HCL 200 mg PO HS 12/10/17 01/13/18 Furosemide [Lasix] 20 mg PO DAILY 01/08/18 01/13/18 Potassium Chloride Er(Unknown) 1 tab PO DAILY 01/08/18 01/13/18 Fluticasone/Umeclidin/Vilanter 1 puff INHALATION DAILY 01/13/18 01/13/18 [Trelegy Ellipta 100-62.5-25] Glycopyrrolate/Formoterol Fum 1 puff INHALATION RT-BID 01/13/18 01/13/18 [Bevespi Aerosphere Inhaler] Previous Rx's Medication Instructions Recorded Rivaroxaban [Xarelto] 20 mg PO DAILY 90 Days #90 tab 11/18/17 Allergies Allergy/AdvReac Type Severity Reaction Status Date / Time buspirone [From BuSpar] Allergy Unknown Verified 01/13/18 16:53 haloperidol [From Haldol] Allergy Swelling Verified 01/13/18 16:53 iodine Allergy Swelling Verified 01/13/18 16:53 Penicillins Allergy Swelling Verified 01/13/18 16:53 prochlorperazine Allergy Rash/Hives Verified 01/13/18 16:53 Sulfa (Sulfonamide Allergy Rash/Hives Verified 01/13/18 16:53 Antibiotics) Tetanus Vaccines and Toxoid Allergy Rash/Hives Verified 01/13/18 16:53 [Tetanus Vaccines & Toxoid] trifluoperazine HCl Allergy Unknown Verified 01/13/18 16:53 [From Stelazine] Review of Systems ROS Statement: Those systems with pertinent positive or pertinent negative responses have been documented in the HPI. ROS Other: All systems not noted in ROS Statement are negative. Past Medical History Past Medical History: Asthma, Diabetes Mellitus, GERD/Reflux, Hyperlipidemia, Hypertension, Musculoskeletal Disorder, Osteoarthritis (OA), Pneumonia, Pulmonary Embolus (PE), Thyroid Disorder Additional Past Medical History / Comment(s): Recently diagnosed with asthma and recently treated for bronchitis with antibiotic, diet controlled diabetes, morbid obesity, hypothyroid, UTI, RLS, anemia, lumbar pain with herniated discs. History of Any Multi-Drug Resistant Organisms: None Reported Past Surgical History: Bariatric Surgery, Hernia Repair, Orthopedic Surgery Additional Past Surgical History / Comment(s): Total Right knee replacement, 3 abdominal hernia repairs, left hip repair Past Anesthesia/Blood Transfusion Reactions: No Reported Reaction Past Psychological History: Anxiety, Bipolar, Depression Smoking Status: Never smoker Past Alcohol Use History: Occasional Past Drug Use History: None Reported - Past Family History Mother Family Medical History: Cancer Additional Family Medical History / Comment(s): lung cancer Father Additional Family Medical History / Comment(s): "my dad from a blood clot that traveled from his leg to his lung and also caused a heart attack." Brother(s) Family Medical History: Diabetes Mellitus Sister(s) Additional Family Medical History / Comment(s): "her heart races too fast" General Exam - General Exam Comments Initial Comments: Constitutional: Awake alert patient appears anxious and uncomfortable and in mild distress Head: Normocephalic atraumatic Eyes: no conjunctival injection No scleral icterus EOMI Neck: No JVD Supple Heart: Regular rate rhythm normal S1-S2 no murmurs Lungs: Decreased breath sounds bilateral with faint expiratory wheezes, the patient is tachypneic with mild respiratory distress No rales Abdomen: Soft nondistended nontender Extremities: Non edematous DP pulses intact Radial pulses intact Neuro: A&Ox3 No focal neurologic deficits Psych: Appropriate mood and affect Limitations: no limitations Course Vital Signs 01/13/18 01/13/18 01/13/18 16:24 16:46 16:59 Temperature 97.5 F L Pulse Rate 93 88 82 Respiratory 24 Rate Blood Pressure 151/85 O2 Sat by Pulse 96 Oximetry EKG Findings - EKG Comments: EKG Findings:: EKG showing normal sinus rhythm with a rate of 86. There is no abnormal ST segment changes or T-wave inversions. QTC is 445. Other intervals normal. No ectopy. Medical Decision Making - Medical Decision Making Is a 57-year-old female who came in for shortness of breath. This is the third time in the last 5 days gestation been to the emergency department. Patient was tachypneic and wheezy on examination. She was given a DuoNeb treatment seemed to improve however the patient states that she still feels very short of breath. She has persistent wheezes. X-ray showing a little bit of pulmonary edema. Since this is her third visit in the last 5 days for the same symptoms I 'm going to bring her in for COPD exacerbation. Could be a component of CHF as well. Given Lasix, steroids, DuoNeb treatments, and antibiotics. Dr. blackburn except see admission. Dr. Means will be placed on consult. - Lab Data Result diagrams: 01/13/18 16:35 01/13/18 16:35 Lab Results 01/13/18 01/13/18 01/13/18 Range/Units 16:35 16:35 16:35 WBC 10.0 (3.8-10.6) k/uL RBC 3.91 (3.80-5.40) m/uL Hgb 11.0 L (11.4-16.0) gm/dL Hct 33.5 L (34.0-46.0) % MCV 85.6 (80.0-100.0) fL MCH 28.1 (25.0-35.0) pg MCHC 32.9 (31.0-37.0) g/dL RDW 14.7 (11.5-15.5) % Plt Count 378 (150-450) k/uL Neutrophils % 66 % Lymphocytes % 22 % Monocytes % 6 % Eosinophils % 2 % Basophils % 0 % Neutrophils # 6.6 (1.3-7.7) k/uL Lymphocytes # 2.2 (1.0-4.8) k/uL Monocytes # 0.6 (0-1.0) k/uL Eosinophils # 0.2 (0-0.7) k/uL Basophils # 0.0 (0-0.2) k/uL PT (9.0-12.0) sec INR (<1.2) APTT (22.0-30.0) sec Sample Site ABG pH (7.35-7.45) ABG pCO2 (35-45) mmHg ABG pO2 (83-108) mmHg ABG HCO3 (21-25) mmol/L ABG Total CO2 (19-24) mmol/L ABG O2 Saturation (94-97) % ABG Base Excess mmol/L Chaka Test FiO2 % Sodium 143 (137-145) mmol/L Potassium 4.7 (3.5-5.1) mmol/L Chloride 108 H (98-107) mmol/L Carbon Dioxide 20 L (22-30) mmol/L Anion Gap 15 mmol/L BUN 28 H (7-17) mg/dL Creatinine 0.85 (0.52-1.04) mg/dL Est GFR (CKD-EPI)AfAm 89 (>60 ml/min/1.73 sqM) Est GFR (CKD-EPI)NonAf 77 (>60 ml/min/1.73 sqM) Glucose 88 (74-99) mg/dL Calcium 9.6 (8.4-10.2) mg/dL Magnesium 2.0 (1.6-2.3) mg/dL Total Bilirubin 0.3 (0.2-1.3) mg/dL AST 21 (14-36) U/L ALT 28 (9-52) U/L Alkaline Phosphatase 68 (38-126) U/L Troponin I (0.000-0.034) ng/mL NT-Pro-B Natriuret Pep 489 pg/mL Total Protein 6.5 (6.3-8.2) g/dL Albumin 4.2 (3.5-5.0) g/dL 01/13/18 01/13/18 01/13/18 Range/Units 16:35 16:35 16:46 WBC (3.8-10.6) k/uL RBC (3.80-5.40) m/uL Hgb (11.4-16.0) gm/dL Hct (34.0-46.0) % MCV (80.0-100.0) fL MCH (25.0-35.0) pg MCHC (31.0-37.0) g/dL RDW (11.5-15.5) % Plt Count (150-450) k/uL Neutrophils % % Lymphocytes % % Monocytes % % Eosinophils % % Basophils % % Neutrophils # (1.3-7.7) k/uL Lymphocytes # (1.0-4.8) k/uL Monocytes # (0-1.0) k/uL Eosinophils # (0-0.7) k/uL Basophils # (0-0.2) k/uL PT 10.2 (9.0-12.0) sec INR 1.0 (<1.2) APTT 25.0 (22.0-30.0) sec Sample Site LRA ABG pH 7.47 H (7.35-7.45) ABG pCO2 30 L (35-45) mmHg ABG pO2 91 (83-108) mmHg ABG HCO3 21 (21-25) mmol/L ABG Total CO2 22 (19-24) mmol/L ABG O2 Saturation 99.0 H (94-97) % ABG Base Excess -2.5 mmol/L Chaka Test Yes FiO2 28 % Sodium (137-145) mmol/L Potassium (3.5-5.1) mmol/L Chloride (98-107) mmol/L Carbon Dioxide (22-30) mmol/L Anion Gap mmol/L BUN (7-17) mg/dL Creatinine (0.52-1.04) mg/dL Est GFR (CKD-EPI)AfAm (>60 ml/min/1.73 sqM) Est GFR (CKD-EPI)NonAf (>60 ml/min/1.73 sqM) Glucose (74-99) mg/dL Calcium (8.4-10.2) mg/dL Magnesium (1.6-2.3) mg/dL Total Bilirubin (0.2-1.3) mg/dL AST (14-36) U/L ALT (9-52) U/L Alkaline Phosphatase (38-126) U/L Troponin I <0.012 (0.000-0.034) ng/mL NT-Pro-B Natriuret Pep pg/mL Total Protein (6.3-8.2) g/dL Albumin (3.5-5.0) g/dL Disposition Clinical Impression: COPD exacerbation, Pulmonary edema Disposition: ADMITTED IP TO THIS HOSP Condition: Stable
[2018-01-13] MEDS ORDERED: LORazepam 2 MG/ML INJ IV STA (16:55)
[2018-01-13 16:59] LABS: Basophils % (A) 0 %; Eosinophils # (A) 0.2 k/uL (0-0.7); Eosinophils % (A) 2 %; HCT 33.5 % (34.0-46.0); Lymphocytes # (A) 2.2 k/uL (1.0-4.8); Lymphocytes % (A) 22 %; MCH 28.1 pg (25.0-35.0); MCHC 32.9 g/dL (31.0-37.0); MCV 85.6 fL (80.0-100.0); Mean Platelet Volume 7.7; Monocytes # (A) 0.6 k/uL (0-1.0); Monocytes % (A) 6 %; Neutrophils # (A) 6.6 k/uL (1.3-7.7); Neutrophils % (A) 66 %; Platelet Count 378 k/uL (150-450); RBC 3.91 m/uL (3.80-5.40); RDW 14.7 % (11.5-15.5)
[2018-01-13 17:04] LABS: Prothrombin Time 10.2 sec (9.0-12.0)
[2018-01-13 17:15] LABS: Albumin 4.2 g/dL (3.5-5.0); Calcium 9.6 mg/dL (8.4-10.2); Potassium 4.7 mmol/L (3.5-5.1); Total Bilirubin 0.3 mg/dL (0.2-1.3); Total Protein 6.5 g/dL (6.3-8.2)
--- NOTE | 2018-01-13 17:39 | XR ---
EXAMINATION: XR chest 1V portable DATE AND TIME: 01/13/2018 5:22 PM ORDERING PROVIDER: Papi Aparicio DO CLINICAL INDICATION: SOB TECHNIQUE: Portable AP upright COMPARISON: None. DESCRIPTION: The overlying soft tissues are prominent. There is no pneumothorax. There is dilation of the hemidiaphragms are prominent degree, consistent with low lung inflation at t he moment of x-ray exposure. As a result, the lung bases are not well-visualized and small pleural ef fusion cannot be excluded. There is crowding of the pulmonary vasculature with increased density bilaterally suggesting mild int erstitial phase pulmonary edema. Mild moderately enlarged cardiac silhouette redemonstrated. Bones and soft tissues are otherwise unre markable. IMPRESSION: EVIDENCE OF INTERSTITIAL PHASE PULMONARY EDEMA.
[2018-01-13] MEDS ORDERED: FUROSEMIDE 10 MG/ML 4 ML VIAL IV STA (17:44)
[2018-01-13] MEDS: IPRATROPIUM-ALBUTEROL 3 ML NEB INHALATION SCH (20:04)
[2018-01-13] MEDS: methylPREDNISolone SOD SUCCI 125 MG/2 ML VIAL IV SCH (20:07)
[2018-01-13] MEDS: CARVEDILOL 12.5 MG TAB PO SCH (20:07)
[2018-01-13 20:19] LABS: Glucose,Whole Blood 181 mg/dL (75-99)
[2018-01-13] MEDS ORDERED: IPRATROPIUM-ALBUTEROL 3 ML NEB INHALATION PRN (20:30)
[2018-01-13] MEDS: NON-FORMULARY DRUG (Glycopyrrolate/Formoterol Fum [Bevespi Aerosphere Inhaler] 1 PUFF) INHALATION SCH (20:30)
[2018-01-13] MEDS ORDERED: ATORVASTATIN 10 MG TAB PO SCH (21:00)
[2018-01-13] MEDS ORDERED: DIVALPROEX ER 500 MG TAB.ER.24H PO SCH (21:00)
[2018-01-13] MEDS ORDERED: rOPINIRole HCL 4 MG TABLET PO SCH (21:00)
[2018-01-13] MEDS ORDERED: traZODone HCL 100 MG TAB PO SCH (21:00)
[2018-01-13] MEDS: hydrOXYzine PAMOATE 25 MG CAP PO SCH (21:28)
[2018-01-13] MEDS: IBUPROFEN 800 MG TAB PO SCH (21:28)
[2018-01-13] MEDS: AZITHROMYCIN 500 MG TAB PO SCH (21:29)
[2018-01-13] MEDS: INSULIN ASPART 100 UNIT/ML 1 ML 10 ML VIAL SQ SCH (21:30)
[2018-01-13] MEDS: hydrALAZINE HCL 50 MG TAB PO SCH (21:32)
[2018-01-14] MEDS: methylPREDNISolone SOD SUCCI 125 MG/2 ML VIAL IV SCH ×3 (00:29→13:14)
--- NOTE | 2018-01-14 04:18 | HP ---
HISTORY AND PHYSICAL DATE OF SERVICE: 01/13/2018 CHIEF COMPLAINT: Shortness of breath. HISTORY OF PRESENT ILLNESS: This 57-year-old woman with a past medical history of multiple medical problems, recently admitted with bilateral pneumonia possibly gram-negative. The patient went home and currently patient complaining of shortness of breath and cough and sputum and the patient also had a chest x-ray in the ER which showed some increased bronchovascular markings in the bases. The patient was admitted to the hospital further evaluation and treatment. There is no history of fever, rigors or chills. No history of headache, loss of consciousness. NT proBNP is 489. PAST MEDICAL HISTORY: History of asthma, GERD, hypertension, hyperlipidemia, history of DJD, history of pneumonia, pulmonary embolism, anxiety. MEDICATIONS: Prior time prior to admission include home medications are: 1. Trilogy Ellipta. 2. inhaler. 3. Potassium chloride 1 daily. 4. Requip 40 mg p.o. daily. 5. Trazodone 200 mg q.h.s. 6. Xanax 4 mg. 7. Xarelto 20 mg daily. 8. Depakote ER 1000 mg q.h.s. 9. Hydroxyzine 25 mg t.i.d. 10.Apresoline 50 mg t.i.d. 11.Omeprazole 20 mg daily. 12.Multivitamins 1 p.o. daily. 13.Myrbetriq 50 mg. 14.Claritin 10 mg p.o. 15.Synthroid 137 mcg p.o. daily. 16.Motrin 800 mg p.o. daily. 17.Lasix 20 mg p.o. daily. 18.Cymbalta 60 mg p.o. daily. 19.Vitamin D3 10283 units daily. 20.Coreg 25 mg p.o. b.i.d. 21.Lipitor 10 mg q.h.s. ALLERGIES: ARE MULTIPLE: BUSPIRONE, HALOPERIDOL, IODINE, PENICILLIN, PROCHLORPERAZINE, SULFA, TRIFLUOPERAZINE. FAMILY HISTORY: Lung cancer. SOCIAL HISTORY: No history of smoking. No alcohol intake. REVIEW OF SYSTEMS: ENT: No diminished vision or hearing. Cardiovascular: No angina or palpitations. Respiratory: As mentioned earlier. GI no nausea or vomiting. no dysuria. Nervous system: No numbness, weakness. ALLERGY/IMMUNOLOGY: As mentioned earlier. Hematology/Oncology: No history of anemia. Endocrine: Hypothyroidism. No diabetes. Constitutional: As mentioned earlier. Dermatology negative. Rheumatology negative. Psychiatric: As mentioned earlier. PHYSICAL EXAM: Patient is alert and oriented times three. Pulse is 113, blood pressure 130/60, respiration 20, temperature 98.2, pulse ox 97% on 3 L. HEENT is conjunctivae normal. Oral mucosa moist. Neck is no jugular venous distention. No carotid bruit. No lymph nodes. Cardiovascular S1-S2. Respiratory: Breath sounds diminished in the bases. A few scattered rhonchi and crackles. Expiratory wheezing and crackles. ABDOMEN: Soft, obese, nontender. Legs no edema and no swelling. NERVOUS SYSTEM: Higher functions as mentioned earlier. Moves all four limbs. No focal motor or sensory deficits. Skin: No ulcer, rash or bleeding. LABS: WBC 10, hemoglobin 11, otherwise glucose 181. ASSESSMENT: 1. Chronic obstructive pulmonary disease, bronchial asthma acute exacerbation with acute purulent tracheobronchitis with possible left lower lobe pneumonia. 2. History of asthma. 4. Gastroesophageal reflux disease. 5. Hypertension. 6. Hyperlipidemia. 7. History of degenerative joint disease. 8. History of pneumonia. 9. History of pulmonary embolism. 10.History of hypothyroidism. 11.History of bariatric surgery. 12.History of anxiety bipolar depression. RECOMMENDATIONS AND DISCUSSION: This 57-year-old woman who presented with multiple complex medical issues, we will monitor the patient closely. Continue the current medications, management and symptomatic treatment. We will initiate intensive bronchodilators, IV steroids, monitor blood sugars closely. Resume the home medications and I would also recommend empiric antibiotics also. Guarded prognosis because of multiple complex medical issues and further recommendations to follow. Please see orders for further details. A copy will be forwarded to Dr. Umaña who is the primary physician. MMODL / IJN: [id number] / [place]ÑITO
[2018-01-14] MEDS ORDERED: LEVOTHYROXINE 137 MCG TAB PO SCH (06:30)
[2018-01-14 07:04] LABS: Glucose,Whole Blood 167 mg/dL (75-99)
[2018-01-14] MEDS ORDERED: RIVAROXABAN 20 MG TAB PO SCH (07:30)
[2018-01-14] MEDS ORDERED: PANTOPRAZOLE 40 MG TABLET PO SCH (07:30)
[2018-01-14] MEDS: CARVEDILOL 12.5 MG TAB PO SCH ×2 (07:30→17:25)
[2018-01-14] MEDS: hydrALAZINE HCL 50 MG TAB PO SCH ×2 (07:32→17:25)
[2018-01-14] MEDS: hydrOXYzine PAMOATE 25 MG CAP PO SCH ×2 (07:39→17:24)
[2018-01-14] MEDS: INSULIN ASPART 100 UNIT/ML 1 ML 10 ML VIAL SQ SCH ×3 (07:39→17:25)
[2018-01-14] MEDS: IBUPROFEN 800 MG TAB PO SCH ×2 (07:40→17:24)
[2018-01-14 07:51] VITALS: BP 151/76; RESP 16; TEMP 97.8
[2018-01-14] MEDS ORDERED: cefTRIAXone IN SWFI 1,000 MG/10 ML SYRINGE IVP SCH (09:00)
[2018-01-14] MEDS ORDERED: LORATADINE 10 MG TAB PO SCH (09:00)
[2018-01-14] MEDS ORDERED: DULoxetine HCL 60 MG CAPSULE.DR PO SCH (09:00)
[2018-01-14] MEDS ORDERED: NON-FORMULARY DRUG (Fluticasone/Umeclidin/Vilanter [Trelegy Ellipta 100-62.5-25] 1 PUFF) INHALATION SCH (09:00)
[2018-01-14] MEDS ORDERED: POTASSIUM CHLORIDE PO SCH (09:00)
[2018-01-14] MEDS ORDERED: NON-FORMULARY DRUG (Mirabegron [Myrbetriq] 50 MG) PO SCH (09:00)
[2018-01-14] MEDS ORDERED: FUROSEMIDE 20 MG TAB PO SCH (09:00)
[2018-01-14] MEDS: IPRATROPIUM-ALBUTEROL 3 ML NEB INHALATION SCH ×3 (09:01→16:00)
[2018-01-14] MEDS: NON-FORMULARY DRUG (Glycopyrrolate/Formoterol Fum [Bevespi Aerosphere Inhaler] 1 PUFF) INHALATION SCH (10:43)
[2018-01-14 11:37] LABS: Glucose,Whole Blood 182 mg/dL (75-99)
[2018-01-14] MEDS ORDERED: MULTIVITAMINS, THERA 1 EACH TAB PO SCH (12:00)
[2018-01-14] MEDS ORDERED: ALPRAZolam 0.25 MG TAB PO STA (12:00)
[2018-01-14] MEDS ORDERED: CHOLECALCIFEROL 1,000 UNIT TAB PO SCH (12:00)
[2018-01-14] MEDS ORDERED: RX INFO: IV CONTRAST WAS GIVEN 1 EACH MISC MISCELLANE PRN (12:36)
[2018-01-14] MEDS ORDERED: diphenhydrAMINE 50 MG/ML 1 ML VIAL IVP ONE (13:07)
[2018-01-14] MEDS ORDERED: methylPREDNISolone SOD SUCCI 125 MG/2 ML VIAL IV ONE (13:07)
[2018-01-14] MEDS ORDERED: FAMOTIDINE 20 MG/2 ML VIAL IV ONE (13:07)
--- NOTE | 2018-01-14 15:16 | P.DS ---
Providers Date of admission: 01/14/18 13:11 Attending physician: Alex Stauffer MD Consults: 01/13/18 17:41 Consult Physician Routine Consulting Provider: Chinyere Means Consult Reason/Comments: COPD Do you want consulting provider notified?: Yes 01/14/18 13:24 Consult Physician Routine Consulting Provider: Lizz Waldron Consult Reason/Comments: Psychosis Do you want consulting provider notified?: Yes Primary care physician: Chasidy Smyth Hospital Course: 57-year-old female is admitted with compensative shortness of breath although patient is saturating well even without oxygen patient does use 2 L of Cardizem does have history of COPD lung exam is clear to auscultation and do not believe she'll need systemic steroids. Patient is quite agitated and hospice Has been dealing with her agitation since morning patient has a sitter because of agitation patient wanted to go home CAT scan of the chest was ordered to rule out pulmonary embolism although my suspicion is low for that as patient is already on anticoagulations also. We'll obtain either d-dimer a chest CAT scan I'm able to convince after talking with the patient multiple times. If CAT scan is negative and after evaluation by psychiatric patient will be discharged today previous psychiatric floor or home. Patient will not require any systemic steroids I believe systemic strides actually made her situation worse. Patient had a chest x-ray which was read as pulmonary edema although patient clinically doesn't have any congestive heart failure exacerbation her BNP is only 300 she does not have any elevated JVD. Patient subjective feeling of shortness of breath is secondary to have arrested to lung disease possibly a sleep apnea and morbid obesity. Patient keeps on changing her history. Patient states she wanted to go to inpatient psychiatric floor and then she says she doesn't want to be evaluated by psychiatrist. Review of systems: Unable to obtain PHYSICAL EXAMINATION: GENERAL: The patient is alert and oriented x3, not in any acute distress. Morbidly obese quite a bit agitated HEENT: Pupils are round and equally reacting to light. EOMI. No scleral icterus. No conjunctival pallor. Normocephalic, atraumatic. No pharyngeal erythema. No thyromegaly. CARDIOVASCULAR: S1 and S2 present. No murmurs, rubs, or gallops. PULMONARY: Chest is clear to auscultation, no wheezing or crackles. ABDOMEN: Soft, nontender, nondistended, normoactive bowel sounds. No palpable organomegaly. MUSCULOSKELETAL: No joint swelling or deformity. EXTREMITIES: No cyanosis, clubbing, or pedal edema. NEUROLOGICAL: Gross neurological examination did not reveal any focal deficits. SKIN: No rashes. -Shortness of breath: There is no evidence of CHF examination of COPD exacerbation and had feeling of shadows of breath is probably due to obesity hypoventilation syndrome are obstructive sleep apnea and restrictive lung disease from her morbid obesity. -COPD without any acute exacerbation patient has chronic hypercapnic respiratory failure although is not requiring any oxygen during this hospitalization -Gastroesophageal reflux disease -Hypertension -Hyperlipidemia -History of pulmonary embolism patient is on Zocor for which she will continue we'll rule out PE here because of the concerns of the physician that evaluated her yesterday. -Hypothyroidism -Acute psychosis: May be related to steroids. -Anxiety bipolar and depression Patient Condition at Discharge: Stable Plan - Discharge Summary Discharge Rx Participant: No New Discharge Prescriptions: No Action rOPINIRole HCL [Requip] 3 mg PO DAILY Mirabegron [Myrbetriq] 50 mg PO DAILY Loratadine [Claritin] 10 mg PO DAILY Carvedilol [Coreg] 25 mg PO BID Atorvastatin [Lipitor] 10 mg PO HS Omeprazole 20 mg PO DAILY Multivitamins, Thera [Multivitamin (formulary)] 1 tab PO DAILY Cholecalciferol [Vitamin D3] 10,000 unit PO DAILY hydrALAZINE HCL [Apresoline] 50 mg PO TID Levothyroxine Sodium [Synthroid] 137 mcg PO DAILY DULoxetine HCL [Cymbalta] 60 mg PO DAILY hydrOXYzine PAMOATE 25 mg PO TID Rivaroxaban [Xarelto] 20 mg PO DAILY 90 Days #90 tab Divalproex ER [Depakote ER] 1,000 mg PO HS rOPINIRole HCL [Requip] 4 mg PO HS traZODone HCL 200 mg PO HS Ibuprofen [Motrin] 800 mg PO TID Furosemide [Lasix] 20 mg PO DAILY Potassium Chloride Er(Unknown) 1 tab PO DAILY Glycopyrrolate/Formoterol Fum [Bevespi Aerosphere Inhaler] 1 puff INHALATION RT-BID Fluticasone/Umeclidin/Vilanter [Trelegy Ellipta 100-62.5-25] 1 puff INHALATION DAILY Discharge Medication List rOPINIRole HCL [Requip] 3 mg PO DAILY 05/05/16 [History] Mirabegron [Myrbetriq] 50 mg PO DAILY 05/23/17 [History] Atorvastatin [Lipitor] 10 mg PO HS 06/07/17 [History] Carvedilol [Coreg] 25 mg PO BID 06/07/17 [History] Cholecalciferol [Vitamin D3] 10,000 unit PO DAILY 06/07/17 [History] Loratadine [Claritin] 10 mg PO DAILY 06/07/17 [History] Multivitamins, Thera [Multivitamin (formulary)] 1 tab PO DAILY 06/07/17 [History ] Omeprazole 20 mg PO DAILY 06/07/17 [History] DULoxetine HCL [Cymbalta] 60 mg PO DAILY 10/20/17 [History] Levothyroxine Sodium [Synthroid] 137 mcg PO DAILY 10/20/17 [History] hydrALAZINE HCL [Apresoline] 50 mg PO TID 10/20/17 [History] hydrOXYzine PAMOATE 25 mg PO TID 11/11/17 [History] Rivaroxaban [Xarelto] 20 mg PO DAILY 90 Days #90 tab 11/18/17 [Rx] Divalproex ER [Depakote ER] 1,000 mg PO HS 12/10/17 [History] Ibuprofen [Motrin] 800 mg PO TID 12/10/17 [History] rOPINIRole HCL [Requip] 4 mg PO HS 12/10/17 [History] traZODone HCL 200 mg PO HS 12/10/17 [History] Furosemide [Lasix] 20 mg PO DAILY 01/08/18 [History] Potassium Chloride Er(Unknown) 1 tab PO DAILY 01/08/18 [History] Fluticasone/Umeclidin/Vilanter [Trelegy Ellipta 100-62.5-25] 1 puff INHALATION DAILY 01/13/18 [History] Glycopyrrolate/Formoterol Fum [Bevespi Aerosphere Inhaler] 1 puff INHALATION RT- BID 01/13/18 [History] Follow up Appointment(s)/Referral(s): Libra Umaña MD [Primary Care Provider] - 3 Days Discharge Disposition: HOME SELF-CARE
--- NOTE | 2018-01-14 15:22 | CT ---
EXAMINATION TYPE: CT angio chest DATE OF EXAM: 01/14/2018 COMPARISON: 11/16/2017 HISTORY: 57 year-old female shortness of breath, R/O PE TECHNIQUE: Contiguous axial scanning of the chest performed with IV Contrast, patient injected with 6 0 mL of Isovue 370. Coronal/sagittal MIP reconstructions performed. CT DLP: 1123.3 mGycm Automated exposure control for dose reduction was used. FINDINGS: Heart mildly enlarged with small basilar pericardial effusion. Extensive motion artifact throughout the lungs degrading the exam. Conventional arch vessel branching anatomy. Suboptimal contrast bolus probably due to patient not following breathing commands. There is some new patchy peripheral left lower lobe opacity. This has a somewhat strandy appearance. No other consolidation or pleural effusion seen. No thoracic lymphadenopathy identified. Visualized upper abdomen shows some postsurgical changes along the anterior epigastric region. Some p ostsurgical changes involving the GE junction and left upper quadrant small bowel loops. Possible Rou x-en-Y gastric bypass. Bones: Endplate spondylosis mid to lower thoracic spine. No osseous destructive process. IMPRESSION: 1. NONDIAGNOSTIC EXAM. THE PATIENT WAS BREATHING THROUGHOUT THE SCAN AND THE CONTRAST BOLUS IS ALSO S UBOPTIMAL LIKELY DUE TO PATIENT NOT FOLLOWING BREATHING INSTRUCTIONS. THERE IS NO LARGE CENTRAL PULMO NARY EMBOLUS. REMAINDER OF THE PULMONARY ARTERIAL SYSTEM IS NONDIAGNOSTIC. 2. CARDIOMEGALY. 3. SOME NEW PATCHY OPACITY PERIPHERAL LEFT LOWER LUNG LIKELY ATELECTASIS. CORRELATE WITH PATIENT'S SY MPTOMS TO EXCLUDE PNEUMONIA.
[2018-01-14 15:43] VITALS: PULSE 76
--- NOTE | 2018-01-14 16:02 | P.CNPUL ---
History of Present Illness Consult date: 01/14/18 Requesting physician: Ashanti Doshi Reason for consult: dyspnea Chief complaint: Cough, difficulty breathing, chest tightness History of present illness: Magda is a 57-year-old white female patient of Dr. Umaña, who presented to the emergency department on 01/13/2018 at 1651 with complaints of increasing shortness of breath, mild cough, mild chest tightness which she thinks was exacerbated by her coughing. Denied any fever or chills, no peripheral edema, no nausea or vomiting, no headache. No recent sick contacts. Her cough is nonproductive. She states her symptoms started 2 days prior to her admission, and became progressively worse, she states is difficult for her to even walk to the bathroom without being out of breath. Chest x-ray completed in the emergency department showed crowding of the pulmonary vasculature with increased interstitial markings, however it was a poor quality study, there was dilation of the hemidiaphragms consistent with low lung volumes. EKG showed normal sinus rhythm. Lab work was negative for any evidence of leukocytosis, WBC was 10.0, hemoglobin was 11.0, d-dimer was negative at 0.40, sodium was 143 , potassium is 4.7, chloride is 108, carbon dioxide was 20, anion gap was 15, BUN was 28, creatinine was 0.85, troponins and proBNP were all within normal limits, liver enzymes were normal. Blood gas showed pO2 of 91, pCO2 of 30, pH of 7.47, this was done on FiO2 of 28%, and is consistent with respiratory alkalosis with partial metabolic compensation. Patient has been afebrile during her hospitalization, no tachycardia. Patient was recently hospitalized in December for a community-acquired bibasilar pneumonia, was treated with Rocephin, and Zithromax initially, was later switched to Levaquin, clinically improved, and was discharged home and a stable condition. Patient was seen in follow-up by Dr. Geiger in the office, chest x-ray was nondiagnostic. Patient was started on Lasix and potassium for bilateral lower extremity edema. Patient is on Xarelto for unprovoked pulmonary embolism, and patient needs lifelong anticoagulation in view of sedentary lifestyle, and strong family history of thromboembolic disease in her father. Patient has a remote history of bronchial asthma, and most recent PFT in the pulmonary office was negative for any obstructive disease, and more consistent with restrictive lung disease, likely due to extrapulmonary causes, namely obesity. Other medical history includes morbid obesity, hypothyroidism, diabetes mellitus, hyperlipidemia, hypertension, osteoarthritis, borderline personality disorder, chronic anemia, history of bariatric surgery, chronic back pain. Patient does report a 30 pound weight gain since June 2017 when her psychiatrist switched her to Depakote. We are asked to see the patient in consultation for evaluation of her shortness of breath. Review of Systems All systems: negative Constitutional: Denies chills, Denies fever Eyes: denies blurred vision, denies pain Ears, nose, mouth and throat: Denies headache, Denies sore throat Cardiovascular: Denies chest pain, Denies shortness of breath Respiratory: Reports dyspnea, Denies cough Gastrointestinal: Denies abdominal pain, Denies diarrhea, Denies nausea, Denies vomiting Genitourinary: Denies dysuria, Denies hematuria Musculoskeletal: Denies myalgias Integumentary: Denies pruritus, Denies rash Neurological: Denies numbness, Denies weakness Psychiatric: Denies anxiety, Denies depression Endocrine: Denies fatigue, Denies weight change Past Medical History Past Medical History: Asthma, Diabetes Mellitus, GERD/Reflux, Hyperlipidemia, Hypertension, Musculoskeletal Disorder, Osteoarthritis (OA), Pneumonia, Pulmonary Embolus (PE), Thyroid Disorder Additional Past Medical History / Comment(s): Recently diagnosed with asthma and recently treated for bronchitis with antibiotic, diet controlled diabetes, morbid obesity, hypothyroid, UTI, RLS, anemia, lumbar pain with herniated discs. History of Any Multi-Drug Resistant Organisms: None Reported Past Surgical History: Bariatric Surgery, Hernia Repair, Orthopedic Surgery Additional Past Surgical History / Comment(s): Total Right knee replacement, 3 abdominal hernia repairs, left hip repair Past Anesthesia/Blood Transfusion Reactions: No Reported Reaction Past Psychological History: Anxiety, Bipolar, Depression Additional Psychological History / Comment(s): Borderline personality disorder. Pt states her mental health is stable at this time. She states she sees a psychiatrist at [facility] and has a supportive employment case manager there. Pt has a legal gaurdian, Hang Hernandez. Pt states she currently resides at [facility] but she and a friend are in the process of relocating to independent living and legal lisetrinidad is in aggreement with this plan. She cannot drive, she either takes the bus to [place] or legal gaurdian drives her to [place]. She uses a cane or a walker to ambulate. She has a glucometer but no longer has to monitor her blood sugars. She has in the past had suicidal thoughts and plan and also homicidal thoughts but denies these being a current problem. Smoking Status: Never smoker Past Alcohol Use History: Occasional Past Drug Use History: None Reported - Past Family History Mother Family Medical History: Cancer Additional Family Medical History / Comment(s): lung cancer Father Additional Family Medical History / Comment(s): "my dad from a blood clot that traveled from his leg to his lung and also caused a heart attack." Brother(s) Family Medical History: Diabetes Mellitus Sister(s) Additional Family Medical History / Comment(s): "her heart races too fast" Medications and Allergies Home Medications Medication Instructions Recorded Confirmed Type rOPINIRole HCL [Requip] 3 mg PO DAILY 05/05/16 01/13/18 History Mirabegron [Myrbetriq] 50 mg PO DAILY 05/23/17 01/13/18 History Atorvastatin [Lipitor] 10 mg PO HS 06/07/17 01/13/18 History Carvedilol [Coreg] 25 mg PO BID 06/07/17 01/13/18 History Cholecalciferol [Vitamin D3] 10,000 unit PO DAILY 06/07/17 01/13/18 History Loratadine [Claritin] 10 mg PO DAILY 06/07/17 01/13/18 History Multivitamins, Thera [Multivitamin 1 tab PO DAILY 06/07/17 01/13/18 History (formulary)] Omeprazole 20 mg PO DAILY 06/07/17 01/13/18 History DULoxetine HCL [Cymbalta] 60 mg PO DAILY 10/20/17 01/13/18 History Levothyroxine Sodium [Synthroid] 137 mcg PO DAILY 10/20/17 01/13/18 History hydrALAZINE HCL [Apresoline] 50 mg PO TID 10/20/17 01/13/18 History hydrOXYzine PAMOATE 25 mg PO TID 11/11/17 01/13/18 History Rivaroxaban [Xarelto] 20 mg PO DAILY 90 Days #90 tab 11/18/17 01/13/18 Rx Divalproex ER [Depakote ER] 1,000 mg PO HS 12/10/17 01/13/18 History Ibuprofen [Motrin] 800 mg PO TID 12/10/17 01/13/18 History rOPINIRole HCL [Requip] 4 mg PO HS 12/10/17 01/13/18 History traZODone HCL 200 mg PO HS 12/10/17 01/13/18 History Furosemide [Lasix] 20 mg PO DAILY 01/08/18 01/13/18 History Potassium Chloride Er(Unknown) 1 tab PO DAILY 01/08/18 01/13/18 History Fluticasone/Umeclidin/Vilanter 1 puff INHALATION DAILY 01/13/18 01/13/18 History [Trelelukas Ellipta 100-62.5-25] Glycopyrrolate/Formoterol Fum 1 puff INHALATION RT-BID 01/13/18 01/13/18 History [Bevespi Aerosphere Inhaler] Allergies Allergy/AdvReac Type Severity Reaction Status Date / Time buspirone [From BuSpar] Allergy Unknown Verified 01/13/18 16:53 haloperidol [From Haldol] Allergy Swelling Verified 01/13/18 16:53 iodine Allergy Swelling Verified 01/13/18 16:53 Penicillins Allergy Swelling Verified 01/13/18 16:53 prochlorperazine Allergy Rash/Hives Verified 01/13/18 16:53 Sulfa (Sulfonamide Allergy Rash/Hives Verified 01/13/18 16:53 Antibiotics) Tetanus Vaccines and Toxoid Allergy Rash/Hives Verified 01/13/18 16:53 [Tetanus Vaccines & Toxoid] trifluoperazine HCl Allergy Unknown Verified 01/13/18 16:53 [From Stelazine] Physical Exam Vitals: Vital Signs Temp Pulse Pulse Resp BP BP Pulse Ox 01/14/18 12:35 92 01/14/18 09:12 80 01/14/18 09:01 80 01/14/18 08:00 76 16 01/14/18 07:06 97.8 F 76 16 151/76 97 01/13/18 21:20 98.2 F 113 H 20 134/61 97 01/13/18 20:14 86 01/13/18 20:07 86 01/13/18 19:14 98.2 F 115 H 16 186/85 96 01/13/18 18:01 97.7 F 100 20 156/65 96 01/13/18 16:59 82 01/13/18 16:46 88 01/13/18 16:24 97.5 F L 93 24 151/85 96 Intake and Output 01/14/18 01/14/18 01/14/18 06:59 14:59 22:59 Intake Total 480 1000 Balance 480 1000 Intake: Oral 480 1000 Other: Voiding Method Toilet Toilet # Voids 2 5 Weight 167.72 kg Exam reveals a 57-year-old obese white female, resting in bed, in no acute distress. - Constitutional General appearance: no acute distress - EENT Eyes: EOMI ENT: NA/AT - Neck Neck: no lymphadenopathy Carotids: bilateral: upstroke normal Thyroid: bilateral: normal size - Respiratory Respiratory: bilateral: diminished, wheezing (Minimal wheezing) - Cardiovascular Rhythm: regular Heart sounds: normal: S1, S2 ankle Peripheral Edema: absent: None foot Peripheral Edema: absent: None dorsalis pedis Peripheral Pulses: bilateral: Normal radial pulse Peripheral Pulses: bilateral: Normal - Gastrointestinal General gastrointestinal: no organomegaly, soft, no tenderness - Integumentary Integumentary: normal turgor - Neurologic Neurologic: CNII-XII intact - Musculoskeletal Musculoskeletal: strength equal bilaterally - Psychiatric Patient was heard yelling at staff, being belligerent. Patient reportedly tried to leave AGAINST MEDICAL ADVICE, but had agreed to CT chest with premedication in view of her IV contrast ALLERGY. Psychiatric: A&O x's 3, appropriate affect Results - Laboratory Findings CBC and BMP: 01/13/18 16:35 01/13/18 16:35 ABG ABG pH 7.47 (7.35-7.45) H 01/13/18 16:46 ABG pCO2 30 mmHg (35-45) L 01/13/18 16:46 ABG pO2 91 mmHg (83-108) 01/13/18 16:46 ABG O2 Saturation 99.0 % (94-97) H 01/13/18 16:46 PT/INR, D-dimer PT 10.2 sec (9.0-12.0) 01/13/18 16:35 INR 1.0 (<1.2) 01/13/18 16:35 D-Dimer 0.40 mg/L FEU (<0.60) 01/14/18 14:44 Abnormal lab findings: Abnormal Labs 01/13/18 01/13/18 01/13/18 16:35 16:35 16:46 Hgb 11.0 L Hct 33.5 L ABG pH 7.47 H ABG pCO2 30 L ABG O2 Saturation 99.0 H Chloride 108 H Carbon Dioxide 20 L BUN 28 H POC Glucose (mg/dL) 01/13/18 01/14/18 01/14/18 20:17 07:03 11:36 Hgb Hct ABG pH ABG pCO2 ABG O2 Saturation Chloride Carbon Dioxide BUN POC Glucose (mg/dL) 181 H 167 H 182 H - Diagnostic Findings Chest x-ray: report reviewed, image reviewed Additional studies: EKG reviewed Assessment and Plan Plan: Assessment: #1. Shortness of breath, coughing, and wheezing, related to acute exacerbation of mild intermittent bronchial asthma #2. Recent hospitalization for bibasilar continued acquired pneumonia, and the patient was treated with empiric antibiotics Rocephin, Zithromax and Levaquin, and had clinically improved #3. Mild prerenal azotemia, possibly related to diuretics #4. History of pulmonary embolism, and the patient has a strong family history of thromboembolic disease in her father, remains on Xarelto #5. Lifetime nonsmoker #6. Hypothyroidism #7. Diabetes mellitus #8. Hyperlipidemia, hypertension #9. Osteoarthritis #10. Morbid obesity, with a BMI of 61.5 kg/m #11. Borderline personality disorder #12. Chronic anemia #13. History of bariatric surgery, hernia repair, total right knee replacement , left hip repair #14. Chronic back pain Plan: Chest x-ray taken in the emergency department was of poor quality, and in view of patient's complaints of limited exercise capacity, shortness of breath, CTA chest was obtained with premedication and patient's consent. CT chest was also of suboptimal quality, due to patient's poor compliance with instructions during the exam. But there was no large central pulmonary embolus noted. Patient has been on Xarelto for her history of PE. Patchy opacity in the left lower lung is likely due to atelectasis. Patient denies fever or chills, hemoptysis, chest wall tenderness. She is requesting to go home today. Her pulmonary standpoint patient is stable for discharge home today. I performed a history & physical examination of the patient and discussed their management with my nurse practitioner, Joleen Colbert. I reviewed the nurse practitioner's note and agree with the documented findings and plan of care. Lung sounds are diminished, with a few scattered wheezes. The findings and the impression was discussed with the patient. I attest to the documentation by the nurse practitioner. Time with Patient: Greater than 30
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
[2018-01-14] MEDS: AZITHROMYCIN 500 MG TAB PO SCH (17:25)
== END 2018-01-14 18:25 | disposition home or self-care (01) | DRG 206 ==
LOC: EC 16:22 → 5MS5E 17:50 → OBSVTOIN 01-14 13:11
PROVIDERS: ADMIT Internal Medicine; ATTEND Internal Medicine
DX: E66.2 Morbid (severe) obesity with alveolar hypoventilation (principal); E87.3 Alkalosis; J96.12 Chronic respiratory failure with hypercapnia; F23 Brief psychotic disorder; Z68.44 Body mass index [BMI] 60.0-69.9, adult; J45.901 Unspecified asthma with (acute) exacerbation; J44.0 Chronic obstructive pulmonary disease with (acute) lower respiratory infection; K21.9 Gastro-esophageal reflux disease without esophagitis; F32.9 Major depressive disorder, single episode, unspecified; I10 Essential (primary) hypertension; E78.5 Hyperlipidemia, unspecified; E03.9 Hypothyroidism, unspecified; F41.9 Anxiety disorder, unspecified; M19.90 Unspecified osteoarthritis, unspecified site; F60.3 Borderline personality disorder; J20.9 Acute bronchitis, unspecified; G89.29 Other chronic pain; G25.81 Restless legs syndrome; D64.9 Anemia, unspecified; Z96.651 Presence of right artificial knee joint; E11.9 Type 2 diabetes mellitus without complications; M51.26 Other intervertebral disc displacement, lumbar region; T38.0X5A Adverse effect of glucocorticoids and synthetic analogues, initial encounter; R79.89 Other specified abnormal findings of blood chemistry; Z87.01 Personal history of pneumonia (recurrent); Z72.3 Lack of physical exercise; Z79.01 Long term (current) use of anticoagulants; Z79.890 Hormone replacement therapy; Z79.1 Long term (current) use of non-steroidal anti-inflammatories (NSAID); Z79.899 Other long term (current) drug therapy; Z88.0 Allergy status to penicillin; Z88.2 Allergy status to sulfonamides; Z88.8 Allergy status to other drugs, medicaments and biological substances; Z80.1 Family history of malignant neoplasm of trachea, bronchus and lung; Z98.84 Bariatric surgery status; Z86.711 Personal history of pulmonary embolism; Z82.49 Family history of ischemic heart disease and other diseases of the circulatory system; Z83.3 Family history of diabetes mellitus
CPT/HCPCS: 36415; 36600; 71045; 71275; 80053; 82805; 83735; 83880; 84484; 85025; 85379; 85610; 85730; 93005; 94640; 96374; 96375; 99285

== ENCOUNTER 2018-01-18 21:10 | Emergency (ER) | payer MEDICARE, OTHER ==
[2018-01-18] MEDS ORDERED: LORazepam 2 MG/ML INJ IV STA ×2 (21:34→21:36)
--- NOTE | 2018-01-18 21:35 | ED ---
General Adult HPI - General Chief complaint: Shortness of Breath Stated complaint: SJ Time Seen by Provider: 01/18/18 21:15 Source: patient, EMS, RN notes reviewed Mode of arrival: EMS Limitations: physical limitation - History of Present Illness Initial comments: This a 57-year-old female presents emergency Department with a history of COPD. Patient states she was just released from the hospital on Saturday. Patient states about an hour prior to arrival she believes the humidity made it harder for her to please 15 emergency department. As the patient is speaking to me she is oxygenating 100% on room air in no respiratory distress distress laying on her side. Patient states she still feels as though it is difficult to breathe. Patient states he could be her anxiety because she does have a history of generalized anxiety. Patient denies any chest pain or palpitation. Patient denies any leg swelling or calf pain. Patient denies any fever chills. Patient states she has an occasional dry cough but no sputum production. Patient denies any abdominal pain patient denies nausea vomiting diarrhea. - Related Data Home Medications Medication Instructions Recorded Confirmed rOPINIRole HCL [Requip] 3 mg PO DAILY 05/05/16 01/13/18 Mirabegron [Myrbetriq] 50 mg PO DAILY 05/23/17 01/13/18 Atorvastatin [Lipitor] 10 mg PO HS 06/07/17 01/13/18 Carvedilol [Coreg] 25 mg PO BID 06/07/17 01/13/18 Cholecalciferol [Vitamin D3] 10,000 unit PO DAILY 06/07/17 01/13/18 Loratadine [Claritin] 10 mg PO DAILY 06/07/17 01/13/18 Multivitamins, Thera [Multivitamin 1 tab PO DAILY 06/07/17 01/13/18 (formulary)] Omeprazole 20 mg PO DAILY 06/07/17 01/13/18 DULoxetine HCL [Cymbalta] 60 mg PO DAILY 10/20/17 01/13/18 Levothyroxine Sodium [Synthroid] 137 mcg PO DAILY 10/20/17 01/13/18 hydrALAZINE HCL [Apresoline] 50 mg PO TID 10/20/17 01/13/18 hydrOXYzine PAMOATE 25 mg PO TID 11/11/17 01/13/18 Divalproex ER [Depakote ER] 1,000 mg PO HS 12/10/17 01/13/18 Ibuprofen [Motrin] 800 mg PO TID 12/10/17 01/13/18 rOPINIRole HCL [Requip] 4 mg PO HS 12/10/17 01/13/18 traZODone HCL 200 mg PO HS 12/10/17 01/13/18 Furosemide [Lasix] 20 mg PO DAILY 01/08/18 01/13/18 Potassium Chloride Er(Unknown) 1 tab PO DAILY 01/08/18 01/13/18 Fluticasone/Umeclidin/Vilanter 1 puff INHALATION DAILY 01/13/18 01/13/18 [Trelegy Ellipta 100-62.5-25] Glycopyrrolate/Formoterol Fum 1 puff INHALATION RT-BID 01/13/18 01/13/18 [Bevespi Aerosphere Inhaler] Previous Rx's Medication Instructions Recorded Rivaroxaban [Xarelto] 20 mg PO DAILY 90 Days #90 tab 11/18/17 Albuterol Inhaler [Ventolin Hfa 1 - 2 puff INHALATION Q6HR PRN #1 01/14/18 Inhaler] inhaler Allergies Allergy/AdvReac Type Severity Reaction Status Date / Time buspirone [From BuSpar] Allergy Unknown Verified 01/18/18 21:17 haloperidol [From Haldol] Allergy Swelling Verified 01/18/18 21:17 iodine Allergy Swelling Verified 01/18/18 21:17 Penicillins Allergy Swelling Verified 01/18/18 21:17 prochlorperazine Allergy Rash/Hives Verified 01/18/18 21:17 Sulfa (Sulfonamide Allergy Rash/Hives Verified 01/18/18 21:17 Antibiotics) Tetanus Vaccines and Toxoid Allergy Rash/Hives Verified 01/18/18 21:17 [Tetanus Vaccines & Toxoid] trifluoperazine HCl Allergy Unknown Verified 01/18/18 21:17 [From Stelazine] Review of Systems ROS Statement: Those systems with pertinent positive or pertinent negative responses have been documented in the HPI. ROS Other: All systems not noted in ROS Statement are negative. Past Medical History Past Medical History: Asthma, Diabetes Mellitus, GERD/Reflux, Hyperlipidemia, Hypertension, Musculoskeletal Disorder, Osteoarthritis (OA), Pneumonia, Pulmonary Embolus (PE), Thyroid Disorder Additional Past Medical History / Comment(s): Recently diagnosed with asthma and recently treated for bronchitis with antibiotic, diet controlled diabetes, morbid obesity, hypothyroid, UTI, RLS, anemia, lumbar pain with herniated discs. History of Any Multi-Drug Resistant Organisms: None Reported Past Surgical History: Bariatric Surgery, Hernia Repair, Orthopedic Surgery Additional Past Surgical History / Comment(s): Total Right knee replacement, 3 abdominal hernia repairs, left hip repair Past Anesthesia/Blood Transfusion Reactions: No Reported Reaction Past Psychological History: Anxiety, Bipolar, Depression Smoking Status: Never smoker Past Alcohol Use History: Occasional Past Drug Use History: None Reported - Past Family History Mother Family Medical History: Cancer Additional Family Medical History / Comment(s): lung cancer Father Additional Family Medical History / Comment(s): "my dad from a blood clot that traveled from his leg to his lung and also caused a heart attack." Brother(s) Family Medical History: Diabetes Mellitus Sister(s) Additional Family Medical History / Comment(s): "her heart races too fast" General Exam - General Exam Comments Initial Comments: GENERAL: Patient is well-developed and well-nourished. Patient is nontoxic and well- hydrated and is in no acute distress. Patient is oxygenating 100% on room air ENT: Neck is soft and supple. No significant lymphadenopathy is noted. Oropharynx is clear. Moist mucous membranes. Neck has full range of motion without eliciting any pain. EYES: The sclera were anicteric and conjunctiva were pink and moist. Extraocular movements were intact and pupils were equal round and reactive to light. Eyelids were unremarkable. PULMONARY: Unlabored respirations. Good breath sounds bilaterally. No audible rales rhonchi or wheezing was noted. CARDIOVASCULAR: There is a regular rate and rhythm without any murmurs gallops or rubs. ABDOMEN: Soft and nontender with normal bowel sounds. No palpable organomegaly was noted. There is no palpable pulsatile mass. SKIN: Skin is clear with no lesions or rashes and otherwise unremarkable. NEUROLOGIC: Patient is alert and oriented x3. Cranial nerves II through XII are grossly intact. Motor and sensory are also intact. Normal speech, volume and content. Symmetrical smile. MUSCULOSKELETAL: Normal extremities with adequate strength and full range of motion. No lower extremity swelling or edema. No calf tenderness. LYMPHATICS: No significant lymphadenopathy is noted PSYCHIATRIC: Patient is very anxious but when I'm not in the room she is resting and playing on her phone lying on her left side. Limitations: physical limitation Course Vital Signs 01/18/18 01/18/18 01/18/18 21:14 21:24 21:52 Temperature 98.9 F Pulse Rate 77 76 Respiratory 18 26 H Rate Blood Pressure 151/69 O2 Sat by Pulse 100 Oximetry 01/18/18 21:59 Temperature Pulse Rate 76 Respiratory Rate Blood Pressure O2 Sat by Pulse Oximetry Medical Decision Making - Medical Decision Making Patient's EKG shows a normal sinus rhythm at 77 bpm W[place] interval is 148 QRS 74 QT interval 364 QTC is 411. Patient's EKG shows no ST segment elevation or depression or T wave abnormalities are noted. Patient was insistent on getting a breathing treatment so I gave her breathing treatment. Patient was never in any respiratory distress she had no wheezing and she was resting on her side throughout her ED stay. Patient was oxygenating between 9900%. Patient's chest x-ray shows no acute normalities. Disposition Clinical Impression: Anxiety Disposition: HOME SELF-CARE Instructions: Anxiety (ED) Referrals: Libra Umaña MD [Primary Care Provider] - 1-2 days Time of Disposition: 23:02
[2018-01-18] MEDS ORDERED: IPRATROPIUM-ALBUTEROL 3 ML NEB INHALATION STA (21:38)
--- NOTE | 2018-01-18 23:06 | XR ---
EXAMINATION TYPE: XR chest 2V DATE OF EXAM: 01/18/2018 COMPARISON: 01/13/2018 HISTORY: Difficulty breathing TECHNIQUE: Frontal and lateral views of the chest are obtained. FINDINGS: Heart is normal. Lungs are clear of consolidation. Costophrenic angles are clear. Bony tho rax is intact there is no heart failure. There is coarsening of interstitial markings. IMPRESSION: Suboptimal inspiration. Coarse lung markings. There is clearing of the pulmonary congest ion compared to old exam.
[2018-01-18 23:17] VITALS: RESP 18
[2018-01-19] MEDS ORDERED: LORazepam 2 MG/ML INJ IM STA (01:17)
[2018-01-19 02:44] VITALS: BP 125/58; PULSE 94; TEMP 97.3
== END 2018-01-19 03:09 | disposition home or self-care (01) ==
LOC: EC 21:10
DX: F41.9 Anxiety disorder, unspecified (principal); J44.9 Chronic obstructive pulmonary disease, unspecified; K21.9 Gastro-esophageal reflux disease without esophagitis; E78.5 Hyperlipidemia, unspecified; I10 Essential (primary) hypertension; M19.90 Unspecified osteoarthritis, unspecified site; E03.9 Hypothyroidism, unspecified; G25.81 Restless legs syndrome; F32.9 Major depressive disorder, single episode, unspecified; E66.01 Morbid (severe) obesity due to excess calories; Z68.44 Body mass index [BMI] 60.0-69.9, adult; Z86.711 Personal history of pulmonary embolism; Z96.651 Presence of right artificial knee joint; Z79.02 Long term (current) use of antithrombotics/antiplatelets; Z79.1 Long term (current) use of non-steroidal anti-inflammatories (NSAID); Z79.51 Long term (current) use of inhaled steroids; Z79.899 Other long term (current) drug therapy; Z88.8 Allergy status to other drugs, medicaments and biological substances; Z91.048 Other nonmedicinal substance allergy status; Z88.0 Allergy status to penicillin; Z88.2 Allergy status to sulfonamides; Z88.7 Allergy status to serum and vaccine
CPT/HCPCS: 94640; 71046; 99285; 96374; J2060

== ENCOUNTER 2018-02-09 15:34 | Emergency (ER) | payer MEDICARE, OTHER ==
[2018-02-09] MEDS ORDERED: ACETAMINOPHEN TAB 500 MG TAB PO STA (15:52)
--- NOTE | 2018-02-09 16:23 | XR ---
EXAMINATION TYPE: XR knee complete LT DATE OF EXAM: 02/09/2018 CLINICAL HISTORY: Left hip and knee pain after a fall TECHNIQUE: Three views of the left knee are obtained. COMPARISON: None. FINDINGS: There is no acute fracture/dislocation evident in left knee. There is moderate tricompartm ental arthropathy with joint space narrowing, marginal osteophytes, and subchondral sclerosis. No sup rapatellar joint effusion. There is mild generalized osseous demineralization.. The overlying soft t issue appears unremarkable. IMPRESSION: There is no acute fracture or dislocation in the left knee. Moderate tricompartmental ar thropathy and mild generalized osseous demineralization.
--- NOTE | 2018-02-09 16:24 | XR ---
EXAMINATION TYPE: XR Hip Complete LT DATE OF EXAM: 02/09/2018 CLINICAL HISTORY: Fall yesterday with subsequent left hip pain TECHNIQUE: AP and frogleg views of the left hip are obtained. COMPARISON: None. FINDINGS: There is no acute fracture/dislocation evident in the left hip [place] bone or fracture fix ation hardware. Alignment of the lateral fixation plate, cortical screws and cephalomedullary fahad ar e maintained. The joint space in the left hip is mildly narrowed compatible with mild arthropathy. T he overlying soft tissue appears unremarkable. IMPRESSION: There is no acute fracture or dislocation in the left hip [place] bone or fracture fixati on hardware.
--- NOTE | 2018-02-09 17:02 | US ---
EXAMINATION TYPE: US venous doppler duplex LE LT DATE OF EXAM: 02/09/2018 4:51 PM COMPARISON: US 12/31/2017 CLINICAL HISTORY: Left leg Pain. Patient takes blood thinners. 5ft 5 in, 375lbs. Difficult exam due to patient body habitus SIDE PERFORMED: Left TECHNIQUE: The lower extremity deep venous system is examined utilizing real time linear array sonog rizwan with graded compression, doppler sonography and color-flow sonography. VESSELS IMAGED: External Iliac Vein (EIV) Common Femoral Vein Deep Femoral Vein Greater Saphenous Vein * Femoral Vein Popliteal Vein Small Saphenous Vein * Proximal Calf Veins (* superficial vessels) Grayscale, color doppler, spectral doppler imaging performed of the deep veins of the left lower extr emity. There is normal flow, compressibility, vascular waveforms. Left Leg: Negative for DVT IMPRESSION: No sonographic evidence of deep venous thrombosis within the left lower extremity.
[2018-02-09 18:19] VITALS: BP 150/78; PULSE 98; RESP 16; TEMP 97.9
--- NOTE | 2018-02-09 18:28 | ED ---
Extremity Problem HPI - General Chief complaint: Extremity Problem,Nontraumatic Stated complaint: Leg Pain Time Seen by Provider: 02/09/18 15:44 Source: patient Mode of arrival: wheelchair Limitations: no limitations - History of Present Illness Initial comments: 57 years O female presents with the left hip pain and the left knee pain she said she fell 2 days ago since then she has been ablating well she is also concerned about her DVT she does have a history of pulmonary embolism currently she is on his overall toe she denies any head injury when she fell 2 days ago she denies any headaches no neck pain no chest pain or shortness of breath no pleuritic chest pain. - Related Data Home Medications Medication Instructions Recorded Confirmed rOPINIRole HCL [Requip] 3 mg PO DAILY 05/05/16 02/09/18 Mirabegron [Myrbetriq] 50 mg PO DAILY 05/23/17 02/09/18 Atorvastatin [Lipitor] 10 mg PO HS 06/07/17 02/09/18 Carvedilol [Coreg] 25 mg PO BID 06/07/17 02/09/18 Cholecalciferol [Vitamin D3] 10,000 unit PO DAILY 06/07/17 02/09/18 Loratadine [Claritin] 10 mg PO DAILY 06/07/17 02/09/18 Multivitamins, Thera [Multivitamin 1 tab PO DAILY 06/07/17 02/09/18 (formulary)] Omeprazole 20 mg PO DAILY 06/07/17 02/09/18 DULoxetine HCL [Cymbalta] 60 mg PO DAILY 10/20/17 02/09/18 Levothyroxine Sodium [Synthroid] 137 mcg PO DAILY 10/20/17 02/09/18 hydrALAZINE HCL [Apresoline] 50 mg PO TID 10/20/17 02/09/18 hydrOXYzine PAMOATE 25 mg PO TID 11/11/17 02/09/18 Ibuprofen [Motrin] 800 mg PO TID 12/10/17 02/09/18 rOPINIRole HCL [Requip] 4 mg PO HS 12/10/17 02/09/18 traZODone HCL 200 mg PO HS 12/10/17 02/09/18 Furosemide [Lasix] 20 mg PO DAILY 01/08/18 02/09/18 Fluticasone/Umeclidin/Vilanter 1 puff INHALATION RT-DAILY 01/13/18 02/09/18 [Trelegy Ellipta 100-62.5-25] Glycopyrrolate/Formoterol Fum 1 puff INHALATION RT-BID 01/13/18 02/09/18 [Bevespi Aerosphere Inhaler] Albuterol Inhaler [Ventolin Hfa 1 - 2 puff INHALATION RT-QID PRN 02/09/18 Inhaler] Previous Rx's Medication Instructions Recorded Rivaroxaban [Xarelto] 20 mg PO DAILY 90 Days #90 tab 11/18/17 Allergies Allergy/AdvReac Type Severity Reaction Status Date / Time buspirone [From BuSpar] Allergy Unknown Verified 02/09/18 16:54 haloperidol [From Haldol] Allergy Swelling Verified 02/09/18 16:54 iodine Allergy Swelling Verified 02/09/18 16:54 Penicillins Allergy Swelling Verified 02/09/18 16:54 prochlorperazine Allergy Rash/Hives Verified 02/09/18 16:54 Sulfa (Sulfonamide Allergy Rash/Hives Verified 02/09/18 16:54 Antibiotics) Tetanus Vaccines and Toxoid Allergy Rash/Hives Verified 02/09/18 16:54 [Tetanus Vaccines & Toxoid] trifluoperazine HCl Allergy Unknown Verified 02/09/18 16:54 [From Stelazine] Review of Systems ROS Statement: Those systems with pertinent positive or pertinent negative responses have been documented in the HPI. ROS Other: All systems not noted in ROS Statement are negative. Past Medical History Past Medical History: Asthma, Diabetes Mellitus, GERD/Reflux, Hyperlipidemia, Hypertension, Musculoskeletal Disorder, Osteoarthritis (OA), Pneumonia, Pulmonary Embolus (PE), Thyroid Disorder Additional Past Medical History / Comment(s): Recently diagnosed with asthma and recently treated for bronchitis with antibiotic, diet controlled diabetes, morbid obesity, hypothyroid, UTI, RLS, anemia, lumbar pain with herniated discs. History of Any Multi-Drug Resistant Organisms: None Reported Past Surgical History: Bariatric Surgery, Hernia Repair, Orthopedic Surgery Additional Past Surgical History / Comment(s): Total Right knee replacement, 3 abdominal hernia repairs, left hip repair Past Anesthesia/Blood Transfusion Reactions: No Reported Reaction Past Psychological History: Anxiety, Bipolar, Depression Smoking Status: Never smoker Past Alcohol Use History: Occasional Past Drug Use History: None Reported - Past Family History Mother Family Medical History: Cancer Additional Family Medical History / Comment(s): lung cancer Father Additional Family Medical History / Comment(s): "my dad from a blood clot that traveled from his leg to his lung and also caused a heart attack." Brother(s) Family Medical History: Diabetes Mellitus Sister(s) Additional Family Medical History / Comment(s): "her heart races too fast" General Exam - General Exam Comments Initial Comments: General: The patient is awake and alert, in no distress, and does not appear acutely ill. Skin: Skin is warm and dry and no rashes or lesions are noted. Eye: Pupils are equal, round and reactive to light, extra-ocular movements are intact; there is normal conjunctiva bilaterally. Ears, nose, mouth and throat: There are moist mucous membranes and no oral lesions. Neck: The neck is supple, there is no tenderness or JVD. Cardiovascular: There is a regular rate and rhythm. No murmur, rub or gallop is appreciated. Respiratory: To auscultation bilateral, no wheezing no rhonchi no distress respiratory valenzuela noticed Gastrointestinal: Soft, non-distended, non-tender abdomen without masses or organomegaly noted. There is no rebound or guarding present. Bowel sounds are unremarkable. Back: There is no tenderness to palpation in the midline. There is no obvious deformity. Musculoskeletal: Under over the left greater trochanter more so over the bursa good range of motion at the left hip right knee no effusion patella is in a good place flexion and extension are within normal range noticed some tenderness over the mid posterior thigh no signs of any cellulitis Neurological: CN II-XII intact, Cranial nerves III through XII are intact. There are no obvious motor or sensory deficits. Coordination appears grossly intact. Speech is normal. Psychiatric: Cooperative, appropriate mood & affect, normal judgment. Limitations: no limitations Course Vital Signs 02/09/18 02/09/18 15:35 18:18 Temperature 98.0 F 97.9 F Pulse Rate 103 H 98 Respiratory 20 16 Rate Blood Pressure 132/80 150/78 O2 Sat by Pulse 98 96 Oximetry Review of the imaging revealed normal venous Doppler of the left like hip and the knee x-rays show some did showed some degenerative changes left hip x-ray showed previous hip surgery hardware is in a good place known suspicion of any new fracture at this point Disposition Clinical Impression: Fall, Contusion, hip, Knee sprain Disposition: HOME SELF-CARE Condition: Good Instructions: Hip Contusion (ED) Additional Instructions: She is advised to avoid any Motrin or Aleve she is on his overall toe for pain management Tylenol 1 g by mouth every 6 hours when necessary. Is patient prescribed a controlled substance at d/c from ED?: No Referrals: Libra Umaña MD [Primary Care Provider] - 1-2 days
== END 2018-02-09 18:43 | disposition home or self-care (01) ==
LOC: EC 15:34
DX: S83.92XA Sprain of unspecified site of left knee, initial encounter (principal); S70.02XA Contusion of left hip, initial encounter; M79.605 Pain in left leg; E78.5 Hyperlipidemia, unspecified; I10 Essential (primary) hypertension; J45.909 Unspecified asthma, uncomplicated; E11.9 Type 2 diabetes mellitus without complications; G25.81 Restless legs syndrome; E03.9 Hypothyroidism, unspecified; K21.9 Gastro-esophageal reflux disease without esophagitis; M19.90 Unspecified osteoarthritis, unspecified site; F31.9 Bipolar disorder, unspecified; F41.9 Anxiety disorder, unspecified; E66.01 Morbid (severe) obesity due to excess calories; Z79.1 Long term (current) use of non-steroidal anti-inflammatories (NSAID); Z79.51 Long term (current) use of inhaled steroids; Z79.899 Other long term (current) drug therapy; Z88.0 Allergy status to penicillin; Z88.2 Allergy status to sulfonamides; Z88.7 Allergy status to serum and vaccine; Z88.8 Allergy status to other drugs, medicaments and biological substances; Z91.048 Other nonmedicinal substance allergy status; Z68.44 Body mass index [BMI] 60.0-69.9, adult; Z98.890 Other specified postprocedural states; Z96.651 Presence of right artificial knee joint; W19.XXXA Unspecified fall, initial encounter
CPT/HCPCS: 73502; 99284

== ENCOUNTER 2018-02-16 08:46 | Emergency (ER) | payer MEDICARE, OTHER ==
[2018-02-16] MEDS ORDERED: ALBUTEROL NEBULIZED 2.5 MG/3 ML INHALATION STA (08:56)
[2018-02-16] MEDS ORDERED: IPRATROPIUM 0.5 MG/2.5 ML NEBU INHALATION STA (08:56)
[2018-02-16] MEDS ORDERED: DEXAMETHASONE SOD PHOSPHATE 10 MG/ML 1 ML VIAL IM STA (08:57)
--- NOTE | 2018-02-16 09:09 | ED ---
General Adult HPI - General Chief complaint: Shortness of Breath Stated complaint: DIff Breathing Time Seen by Provider: 02/16/18 08:52 Source: patient, RN notes reviewed, old records reviewed Mode of arrival: ambulatory Limitations: no limitations - History of Present Illness Initial comments: 58-year-old female history CHF, COPD presents with worsening dyspnea. Patient states her breathing has worsened over the past several days. She denies any chest pain. Patient does have some baseline lower extremity swelling and she is currently being treated for cellulitis in her left lower extremity. She is on Keflex and clindamycin. No reported fevers. She does have cough which is somewhat productive. Denies abdominal pain. Denies nausea vomiting or diarrhea. - Related Data Home Medications Medication Instructions Recorded Confirmed rOPINIRole HCL [Requip] 3 mg PO DAILY 05/05/16 02/09/18 Mirabegron [Myrbetriq] 50 mg PO DAILY 05/23/17 02/09/18 Atorvastatin [Lipitor] 10 mg PO HS 06/07/17 02/09/18 Carvedilol [Coreg] 25 mg PO BID 06/07/17 02/09/18 Cholecalciferol [Vitamin D3] 10,000 unit PO DAILY 06/07/17 02/09/18 Loratadine [Claritin] 10 mg PO DAILY 06/07/17 02/09/18 Multivitamins, Thera [Multivitamin 1 tab PO DAILY 06/07/17 02/09/18 (formulary)] Omeprazole 20 mg PO DAILY 06/07/17 02/09/18 DULoxetine HCL [Cymbalta] 60 mg PO DAILY 10/20/17 02/09/18 Levothyroxine Sodium [Synthroid] 137 mcg PO DAILY 10/20/17 02/09/18 hydrALAZINE HCL [Apresoline] 50 mg PO TID 10/20/17 02/09/18 hydrOXYzine PAMOATE 25 mg PO TID 11/11/17 02/09/18 Ibuprofen [Motrin] 800 mg PO TID 12/10/17 02/09/18 rOPINIRole HCL [Requip] 4 mg PO HS 12/10/17 02/09/18 traZODone HCL 200 mg PO HS 12/10/17 02/09/18 Furosemide [Lasix] 20 mg PO DAILY 01/08/18 02/09/18 Fluticasone/Umeclidin/Vilanter 1 puff INHALATION RT-DAILY 01/13/18 02/09/18 [Trelegy Ellipta 100-62.5-25] Glycopyrrolate/Formoterol Fum 1 puff INHALATION RT-BID 01/13/18 02/09/18 [Bevespi Aerosphere Inhaler] Albuterol Inhaler [Ventolin Hfa 1 - 2 puff INHALATION RT-QID PRN 02/09/18 Inhaler] Previous Rx's Medication Instructions Recorded Rivaroxaban [Xarelto] 20 mg PO DAILY 90 Days #90 tab 11/18/17 Allergies Allergy/AdvReac Type Severity Reaction Status Date / Time buspirone [From BuSpar] Allergy Unknown Verified 02/16/18 08:51 haloperidol [From Haldol] Allergy Swelling Verified 02/16/18 08:51 iodine Allergy Swelling Verified 02/16/18 08:51 Penicillins Allergy Swelling Verified 02/16/18 08:51 prochlorperazine Allergy Rash/Hives Verified 02/16/18 08:51 Sulfa (Sulfonamide Allergy Rash/Hives Verified 02/16/18 08:51 Antibiotics) Tetanus Vaccines and Toxoid Allergy Rash/Hives Verified 02/16/18 08:51 [Tetanus Vaccines & Toxoid] trifluoperazine HCl Allergy Unknown Verified 02/16/18 08:51 [From Stelazine] Review of Systems ROS Statement: Those systems with pertinent positive or pertinent negative responses have been documented in the HPI. ROS Other: All systems not noted in ROS Statement are negative. Past Medical History Past Medical History: Asthma, Diabetes Mellitus, GERD/Reflux, Hyperlipidemia, Hypertension, Musculoskeletal Disorder, Osteoarthritis (OA), Pneumonia, Pulmonary Embolus (PE), Thyroid Disorder Additional Past Medical History / Comment(s): Recently diagnosed with asthma and recently treated for bronchitis with antibiotic, diet controlled diabetes, morbid obesity, hypothyroid, UTI, RLS, anemia, lumbar pain with herniated discs. History of Any Multi-Drug Resistant Organisms: None Reported Past Surgical History: Bariatric Surgery, Hernia Repair, Orthopedic Surgery Additional Past Surgical History / Comment(s): Total Right knee replacement, 3 abdominal hernia repairs, left hip repair Past Anesthesia/Blood Transfusion Reactions: No Reported Reaction Past Psychological History: Anxiety, Bipolar, Depression Smoking Status: Never smoker Past Alcohol Use History: Occasional Past Drug Use History: None Reported - Past Family History Mother Family Medical History: Cancer Additional Family Medical History / Comment(s): lung cancer Father Additional Family Medical History / Comment(s): "my dad from a blood clot that traveled from his leg to his lung and also caused a heart attack." Brother(s) Family Medical History: Diabetes Mellitus Sister(s) Additional Family Medical History / Comment(s): "her heart races too fast" General Exam Limitations: no limitations General appearance: alert, in no apparent distress Head exam: Present: atraumatic, normocephalic Eye exam: Present: normal appearance, PERRL ENT exam: Present: normal exam Neck exam: Present: normal inspection. Absent: tenderness, meningismus Respiratory exam: Present: wheezes, decreased breath sounds. Absent: respiratory distress, accessory muscle use Cardiovascular Exam: Present: regular rate, normal rhythm GI/Abdominal exam: Present: soft. Absent: distended, tenderness Extremities exam: Present: normal capillary refill, pedal edema (trace), other ( Erythema consistent with cellulitis in the left lower extremity. No induration or abscess.) Neurological exam: Present: alert, oriented X3. Absent: motor sensory deficit Psychiatric exam: Present: normal affect, normal mood Skin exam: Present: warm, dry Course Vital Signs 02/16/18 02/16/18 02/16/18 08:50 09:05 09:31 Temperature 98.7 F Pulse Rate 108 H 104 H 112 H Respiratory 22 Rate Blood Pressure 147/83 O2 Sat by Pulse 95 Oximetry 02/16/18 09:41 Temperature Pulse Rate Respiratory 22 Rate Blood Pressure O2 Sat by Pulse Oximetry - Reevaluation(s) Reevaluation #1: 02/16/18 11:18 On reevaluation, patient is feeling much better after breathing treatment and steroids. She will like to be discharged. Medical Decision Making - Medical Decision Making 58-year-old female presenting with dyspnea. Patient does have COPD and heart failure. X-rays obtained, there is some mild venous congestion. Patient is not hypoxic. She is comfortable on room air. She has not been taking her Lasix because she felt she didn't need it. She will resume this medication. She was given albuterol, Atrovent steroids and does have improvement in her breathing. She will continue the antibiotics for her lower extremity cellulitis. She will resume her home Lasix. A continue nebulized breathing treatments at home. Disposition Clinical Impression: SOB (shortness of breath) Disposition: HOME SELF-CARE Condition: Fair Instructions: Chronic Bronchitis (ED) Is patient prescribed a controlled substance at d/c from ED?: No Referrals: Libra Umaña MD [Primary Care Provider] - 1-2 days Decision to Admit Reason: Admit from EC Decision Date: 02/16/18 Decision Time: 11:20
--- NOTE | 2018-02-16 09:45 | XR ---
EXAMINATION TYPE: XR chest 2V DATE OF EXAM: 02/16/2018 COMPARISON: 01/18/2018 TECHNIQUE: PA and lateral views submitted. HISTORY: Shortness of breath FINDINGS: Heart is prominent there is sided subsegmental consolidation and diffuse interstitial pattern. No pne umothorax. Hypertrophic and degenerative change of the spine noted. IMPRESSION: 1. Interstitial prominence slightly increased from the prior exam. Correlate for mild venous congesti on or interstitial pneumonitis or chronic lung disease. 2. Left basilar atelectasis or infiltrate.
[2018-02-16 11:21] VITALS: BP 145/78; PULSE 93; RESP 16; TEMP 98.3
== END 2018-02-16 11:39 | disposition home or self-care (01) ==
LOC: EC 08:46
DX: R06.02 Shortness of breath (principal); R05 Cough; L03.116 Cellulitis of left lower limb; J44.9 Chronic obstructive pulmonary disease, unspecified; E11.9 Type 2 diabetes mellitus without complications; K21.9 Gastro-esophageal reflux disease without esophagitis; E78.5 Hyperlipidemia, unspecified; I11.0 Hypertensive heart disease with heart failure; I50.9 Heart failure, unspecified; F31.9 Bipolar disorder, unspecified; F41.9 Anxiety disorder, unspecified; M19.90 Unspecified osteoarthritis, unspecified site; E03.9 Hypothyroidism, unspecified; G25.81 Restless legs syndrome; E66.01 Morbid (severe) obesity due to excess calories; Z68.44 Body mass index [BMI] 60.0-69.9, adult; Z86.711 Personal history of pulmonary embolism; Z98.84 Bariatric surgery status; Z96.651 Presence of right artificial knee joint; Z98.890 Other specified postprocedural states; Z79.1 Long term (current) use of non-steroidal anti-inflammatories (NSAID); Z79.51 Long term (current) use of inhaled steroids; Z79.899 Other long term (current) drug therapy; Z88.0 Allergy status to penicillin; Z88.2 Allergy status to sulfonamides; Z88.7 Allergy status to serum and vaccine; Z88.8 Allergy status to other drugs, medicaments and biological substances; Z91.048 Other nonmedicinal substance allergy status
CPT/HCPCS: 99285; 96372; 94640; 71046; J1100

== ENCOUNTER 2018-02-19 00:25 | Emergency (ER) | payer MEDICARE, OTHER ==
[2018-02-19 00:52] VITALS: PULSE 90
[2018-02-19] MEDS ORDERED: ACET/COD 300 MG/30 MG STARTER PACK 6 TAB BTL PO STA (01:30)
--- NOTE | 2018-02-19 01:31 | ED ---
Extremity Problem HPI - General Chief complaint: Extremity Problem,Nontraumatic Stated complaint: Cellulitis Time Seen by Provider: 02/19/18 00:33 Source: patient Mode of arrival: EMS Limitations: no limitations - History of Present Illness Initial comments: 58-year-old female patient presents to the emergency department today for evaluation of left lower extremity pain. Patient states this been having this pain for the last 5 days. States that she was seen and evaluated at [facility] emergency department and diagnosed with cellulitis to the left lower extremity. States that she was started on Keflex and clindamycin which she has been taking as directed. Patient states that she did also have a negative ultrasound venous Doppler of that leg. Patient states that she feels like the leg is more swollen today. States that she is unable to tolerate the pain any longer. She denies any numbness or tingling to the extremity. Denies any fevers or chills. Patient denies any recent rash, shortness breath, chest pain, abdominal pain, nausea, vomiting, diarrhea, constipation, back pain, numbness, tingling, dizziness, weakness, hematuria, dysuria, urinary urgency, urinary frequency, headache, visual changes, or any other complaints. - Related Data Home Medications Medication Instructions Recorded Confirmed rOPINIRole HCL [Requip] 3 mg PO DAILY 05/05/16 02/19/18 Mirabegron [Myrbetriq] 50 mg PO DAILY 05/23/17 02/19/18 Atorvastatin [Lipitor] 10 mg PO HS 06/07/17 02/19/18 Carvedilol [Coreg] 25 mg PO BID 06/07/17 02/19/18 Cholecalciferol [Vitamin D3] 10,000 unit PO DAILY 06/07/17 02/19/18 Loratadine [Claritin] 10 mg PO DAILY 06/07/17 02/19/18 Multivitamins, Thera [Multivitamin 1 tab PO DAILY 06/07/17 02/19/18 (formulary)] Omeprazole 20 mg PO DAILY 06/07/17 02/19/18 DULoxetine HCL [Cymbalta] 60 mg PO DAILY 10/20/17 02/19/18 Levothyroxine Sodium [Synthroid] 137 mcg PO DAILY 10/20/17 02/19/18 hydrALAZINE HCL [Apresoline] 50 mg PO TID 10/20/17 02/19/18 hydrOXYzine PAMOATE 25 mg PO TID 11/11/17 02/19/18 Ibuprofen [Motrin] 800 mg PO TID 12/10/17 02/19/18 rOPINIRole HCL [Requip] 4 mg PO HS 12/10/17 02/19/18 traZODone HCL 200 mg PO HS 12/10/17 02/19/18 Furosemide [Lasix] 20 mg PO DAILY 01/08/18 02/19/18 Fluticasone/Umeclidin/Vilanter 1 puff INHALATION RT-DAILY 01/13/18 02/19/18 [Trelegy Ellipta 100-62.5-25] Glycopyrrolate/Formoterol Fum 1 puff INHALATION RT-BID 01/13/18 02/19/18 [Bevespi Aerosphere Inhaler] Albuterol Inhaler [Ventolin Hfa 1 - 2 puff INHALATION RT-QID PRN 02/09/18 Inhaler] Cephalexin [Keflex] 500 mg PO Q6HR 02/19/18 02/19/18 Clindamycin HCl [Cleocin] 300 mg PO Q6HR 02/19/18 02/19/18 Previous Rx's Medication Instructions Recorded Rivaroxaban [Xarelto] 20 mg PO DAILY 90 Days #90 tab 11/18/17 Allergies Allergy/AdvReac Type Severity Reaction Status Date / Time buspirone [From BuSpar] Allergy Unknown Verified 02/19/18 00:46 haloperidol [From Haldol] Allergy Swelling Verified 02/19/18 00:46 iodine Allergy Swelling Verified 02/19/18 00:46 Penicillins Allergy Swelling Verified 02/19/18 00:46 prochlorperazine Allergy Rash/Hives Verified 02/19/18 00:46 Sulfa (Sulfonamide Allergy Rash/Hives Verified 02/19/18 00:46 Antibiotics) Tetanus Vaccines and Toxoid Allergy Rash/Hives Verified 02/19/18 00:46 [Tetanus Vaccines & Toxoid] trifluoperazine HCl Allergy Unknown Verified 02/19/18 00:46 [From Stelazine] Review of Systems ROS Statement: Those systems with pertinent positive or pertinent negative responses have been documented in the HPI. ROS Other: All systems not noted in ROS Statement are negative. Past Medical History Past Medical History: Asthma, Diabetes Mellitus, GERD/Reflux, Hyperlipidemia, Hypertension, Musculoskeletal Disorder, Osteoarthritis (OA), Pneumonia, Pulmonary Embolus (PE), Thyroid Disorder Additional Past Medical History / Comment(s): Recently diagnosed with asthma and recently treated for bronchitis with antibiotic, diet controlled diabetes, morbid obesity, hypothyroid, UTI, RLS, anemia, lumbar pain with herniated discs. dx with cellulitis left leg on 02/14/2018 pt put on abx for this History of Any Multi-Drug Resistant Organisms: None Reported Past Surgical History: Bariatric Surgery, Hernia Repair, Orthopedic Surgery Additional Past Surgical History / Comment(s): Total Right knee replacement, 3 abdominal hernia repairs, left hip repair Past Anesthesia/Blood Transfusion Reactions: No Reported Reaction Past Psychological History: Anxiety, Bipolar, Depression Smoking Status: Never smoker Past Alcohol Use History: Occasional Past Drug Use History: None Reported - Past Family History Mother Family Medical History: Cancer Additional Family Medical History / Comment(s): lung cancer Father Additional Family Medical History / Comment(s): "my dad from a blood clot that traveled from his leg to his lung and also caused a heart attack." Brother(s) Family Medical History: Diabetes Mellitus Sister(s) Additional Family Medical History / Comment(s): "her heart races too fast" General Exam Limitations: no limitations General appearance: alert, in no apparent distress, other (This is a well- developed, obese adult female patient in no acute distress. Vital signs upon presentation are temperature 97.7F, pulse 90, respirations 20, blood pressure 143/69, pulse ox 100% on room air.) Eye exam: Present: normal appearance, PERRL, EOMI. Absent: scleral icterus, conjunctival injection, periorbital swelling ENT exam: Present: normal exam, normal oropharynx, mucous membranes moist Respiratory exam: Present: normal lung sounds bilaterally. Absent: respiratory distress, wheezes, rales, rhonchi, stridor Cardiovascular Exam: Present: regular rate, normal rhythm, normal heart sounds. Absent: systolic murmur, diastolic murmur, rubs, gallop, clicks GI/Abdominal exam: Present: soft, normal bowel sounds. Absent: distended, tenderness, guarding, rebound, rigid Extremities exam: Present: normal inspection, full ROM, normal capillary refill , other (Patient has mild erythema noted to the anterior left lower leg. There is mild swelling but no pitting edema. Pedal and posttibial pulses are intact. Cap refills less than 3 seconds.). Absent: tenderness, pedal edema, joint swelling, calf tenderness Neurological exam: Present: alert, oriented X3, CN II-XII intact Psychiatric exam: Present: normal affect, normal mood Skin exam: Present: warm, dry, intact, normal color. Absent: rash Course Vital Signs 02/19/18 00:40 Temperature 97.7 F Pulse Rate 90 Respiratory 20 Rate Blood Pressure 143/69 O2 Sat by Pulse 100 Oximetry Medical Decision Making - Medical Decision Making 58-year-old female patient presents the emergency department today for evaluation of pain to his left lower leg. Patient states that the pain is anterior over the area of cellulitis. There is mild erythema noted to the left anterior leg. Patient is afebrile, vital signs are stable. She is being treated with clindamycin and Keflex for the cellulitis. Patient was negative for DVT to the extremity on 02/14/2018 at [facility]. We will discharge with a starter pack for Tylenol 3 with codeine. She is instructed to contact her primary care physician for further pain medication tomorrow. Return parameters discussed in detail. She verbalizes understanding and agrees with this plan. Disposition Clinical Impression: Cellulitis Disposition: HOME SELF-CARE Condition: Good Instructions: Cellulitis (ED) Additional Instructions: Take medications as directed. Follow-up with her primary care physician for any further pain medications. Return here immediately for any new, worsening, or concerning symptoms. Is patient prescribed a controlled substance at d/c from ED?: No Referrals: Libra Umaña MD [Primary Care Provider] - 1-2 days Time of Disposition: 01:31
[2018-02-19 02:05] VITALS: BP 157/70; RESP 18; TEMP 97.9
== END 2018-02-19 02:00 | disposition home or self-care (01) ==
LOC: EC 00:25
DX: L03.116 Cellulitis of left lower limb (principal); J45.909 Unspecified asthma, uncomplicated; K21.9 Gastro-esophageal reflux disease without esophagitis; E78.5 Hyperlipidemia, unspecified; I10 Essential (primary) hypertension; M19.90 Unspecified osteoarthritis, unspecified site; E66.9 Obesity, unspecified; F41.9 Anxiety disorder, unspecified; F32.9 Major depressive disorder, single episode, unspecified; G25.81 Restless legs syndrome; E03.9 Hypothyroidism, unspecified; Z86.711 Personal history of pulmonary embolism; Z68.44 Body mass index [BMI] 60.0-69.9, adult; Z98.84 Bariatric surgery status; Z96.651 Presence of right artificial knee joint; Z98.890 Other specified postprocedural states; Z79.1 Long term (current) use of non-steroidal anti-inflammatories (NSAID); Z79.51 Long term (current) use of inhaled steroids; Z79.899 Other long term (current) drug therapy; Z88.0 Allergy status to penicillin; Z88.2 Allergy status to sulfonamides; Z88.7 Allergy status to serum and vaccine; Z88.8 Allergy status to other drugs, medicaments and biological substances; Z91.048 Other nonmedicinal substance allergy status
CPT/HCPCS: 99283

== ENCOUNTER 2018-03-19 22:58 | Emergency (ER) | payer MEDICARE, OTHER ==
[2018-03-19 23:13] VITALS: RESP 20; TEMP 97.9
--- NOTE | 2018-03-20 00:11 | XR ---
EXAMINATION TYPE: XR chest 2V DATE OF EXAM: 03/19/2018 COMPARISON: 02/16/2018 HISTORY: Difficulty breathing TECHNIQUE: Frontal and lateral views of the chest are obtained. FINDINGS: Heart is normal. There is coarsening of interstitial markings and mild pulmonary congestio n. There are chest leads. There is no pleural effusion. IMPRESSION: There is mild pulmonary vascular congestion but no overt heart failure. This is stable c ompared to last exam. No pleural fluid.
[2018-03-20 00:33] LABS: Basophils % (A) 0 %; Eosinophils # (A) 0.1 k/uL (0-0.7); Eosinophils % (A) 2 %; HCT 33.9 % (34.0-46.0); HGB 10.7 gm/dL (11.4-16.0); Hypochromasia Slight; Lymphocytes # (A) 1.2 k/uL (1.0-4.8); Lymphocytes % (A) 17 %; MCH 26.3 pg (25.0-35.0); MCHC 31.6 g/dL (31.0-37.0); MCV 83.3 fL (80.0-100.0); Mean Platelet Volume 7.4; Monocytes # (A) 0.4 k/uL (0-1.0); Monocytes % (A) 6 %; Neutrophils # (A) 5.4 k/uL (1.3-7.7); Neutrophils % (A) 73 %; Platelet Count 279 k/uL (150-450); RBC 4.07 m/uL (3.80-5.40); RDW 15.1 % (11.5-15.5); WBC 7.4 k/uL (3.8-10.6)
[2018-03-20 00:41] LABS: INR 0.9 (<1.2); Partial Thromboplastin Time 23.8 sec (22.0-30.0); Prothrombin Time 9.3 sec (9.0-12.0)
[2018-03-20 00:49] LABS: ALT 35 U/L (9-52); AST 37 U/L (14-36); Albumin 4.2 g/dL (3.5-5.0); Alkaline Phosphatase 83 U/L (38-126); Anion Gap 8 mmol/L; Blood Urea Nitrogen 31 mg/dL (7-17); Calcium 9.4 mg/dL (8.4-10.2); Carbon Dioxide 25 mmol/L (22-30); Chloride 107 mmol/L (98-107); Glucose 99 mg/dL (74-99); Potassium 4.4 mmol/L (3.5-5.1); Sodium 140 mmol/L (137-145); Total Bilirubin 0.2 mg/dL (0.2-1.3); Total Protein 6.9 g/dL (6.3-8.2)
[2018-03-20 00:54] LABS: Creatine Kinase 91 U/L (30-135)
--- NOTE | 2018-03-20 00:59 | ED ---
General Adult HPI - General Chief complaint: Shortness of Breath Stated complaint: SOB Source: patient Mode of arrival: EMS Limitations: no limitations - History of Present Illness Initial comments: Dictation was produced using MMIS dictation software. please excuse any grammatical, word or spelling errors. Chief Complaint: 58-year-old obese female with multiple comorbidities presents with shortness of breath. History of Present Illness: Patient presents to a severe EMS for worsening shortness of breath with bilateral lower extremity pain and swelling 2 days. Patient is well-known to emergency department for multiple visitations for myriad of complaints. For the past month patient has been seen in emergency department over 6 times. Patient states that she is short of breath and having difficulty breathing especially in certain positions. Patient is currently on 20 mg of Zaroxolyn daily for treatment of pulmonary emboli. Patient was seen here last month where she was diagnosed with cellulitis, course of antibiotics. Patient denies any constitutional symptoms. The ROS documented in this emergency department record has been reviewed and confirmed by me. Those systems with pertinent positive or negative responses have been documented in the HPI. All other systems are other negative and/or noncontributory. - Related Data Home Medications Medication Instructions Recorded Confirmed Mirabegron [Myrbetriq] 50 mg PO DAILY 05/23/17 03/19/18 Atorvastatin [Lipitor] 10 mg PO HS 06/07/17 03/19/18 Carvedilol [Coreg] 25 mg PO BID 06/07/17 03/19/18 Cholecalciferol [Vitamin D3] 10,000 unit PO DAILY 06/07/17 03/19/18 Loratadine [Claritin] 10 mg PO DAILY 06/07/17 03/19/18 Multivitamins, Thera [Multivitamin 1 tab PO DAILY 06/07/17 03/19/18 (formulary)] Omeprazole 20 mg PO DAILY 06/07/17 03/19/18 DULoxetine HCL [Cymbalta] 60 mg PO DAILY 10/20/17 03/19/18 Levothyroxine Sodium [Synthroid] 137 mcg PO DAILY 10/20/17 03/19/18 hydrALAZINE HCL [Apresoline] 50 mg PO QID 10/20/17 03/19/18 hydrOXYzine PAMOATE 25 mg PO TID 11/11/17 03/19/18 Ibuprofen [Motrin] 800 mg PO TID 12/10/17 03/19/18 traZODone HCL 200 mg PO HS 12/10/17 03/19/18 Furosemide [Lasix] 20 mg PO BID 01/08/18 03/19/18 Fluticasone/Umeclidin/Vilanter 1 puff INHALATION RT-DAILY 01/13/18 03/19/18 [Trelegy Ellipta 100-62.5-25] Glycopyrrolate/Formoterol Fum 1 puff INHALATION RT-BID 01/13/18 03/19/18 [Bevespi Aerosphere Inhaler] Albuterol Inhaler [Ventolin Hfa 1 - 2 puff INHALATION RT-QID PRN 02/09/18 Inhaler] Mirtazapine [Remeron] 15 mg PO HS 03/19/18 03/19/18 Potassium Chloride ER [K-Dur 10] 10 meq PO BID 03/19/18 03/19/18 QUEtiapine [SEROquel] 100 mg PO HS 03/19/18 03/19/18 Previous Rx's Medication Instructions Recorded Rivaroxaban [Xarelto] 20 mg PO DAILY 90 Days #90 tab 11/18/17 Allergies Allergy/AdvReac Type Severity Reaction Status Date / Time buspirone [From BuSpar] Allergy Unknown Verified 03/19/18 23:37 haloperidol [From Haldol] Allergy Swelling Verified 03/19/18 23:37 iodine Allergy Swelling Verified 03/19/18 23:37 Penicillins Allergy Swelling Verified 03/19/18 23:37 prochlorperazine Allergy Rash/Hives Verified 03/19/18 23:37 Sulfa (Sulfonamide Allergy Rash/Hives Verified 03/19/18 23:37 Antibiotics) Tetanus Vaccines and Toxoid Allergy Rash/Hives Verified 03/19/18 23:37 [Tetanus Vaccines & Toxoid] trifluoperazine HCl Allergy Unknown Verified 03/19/18 23:37 [From Stelazine] Review of Systems ROS Statement: Those systems with pertinent positive or pertinent negative responses have been documented in the HPI. ROS Other: All systems not noted in ROS Statement are negative. Past Medical History Past Medical History: Asthma, Diabetes Mellitus, GERD/Reflux, Hyperlipidemia, Hypertension, Musculoskeletal Disorder, Osteoarthritis (OA), Pneumonia, Pulmonary Embolus (PE), Thyroid Disorder Additional Past Medical History / Comment(s): Recently diagnosed with asthma and recently treated for bronchitis with antibiotic, diet controlled diabetes, morbid obesity, hypothyroid, UTI, RLS, anemia, lumbar pain with herniated discs. dx with cellulitis left leg on 02/14/2018 pt put on abx for this History of Any Multi-Drug Resistant Organisms: None Reported Past Surgical History: Bariatric Surgery, Hernia Repair, Orthopedic Surgery Additional Past Surgical History / Comment(s): Total Right knee replacement, 3 abdominal hernia repairs, left hip repair Past Anesthesia/Blood Transfusion Reactions: No Reported Reaction Past Psychological History: Anxiety, Bipolar, Depression Smoking Status: Never smoker Past Alcohol Use History: Occasional Past Drug Use History: None Reported - Past Family History Mother Family Medical History: Cancer Additional Family Medical History / Comment(s): lung cancer Father Additional Family Medical History / Comment(s): "my dad from a blood clot that traveled from his leg to his lung and also caused a heart attack." Brother(s) Family Medical History: Diabetes Mellitus Sister(s) Additional Family Medical History / Comment(s): "her heart races too fast" General Exam - General Exam Comments Initial Comments: PHYSICAL EXAM: General Impression: Alert and oriented x3, not in acute distress HEENT: Normocephalic atraumatic, extra-ocular movements intact, pupils equal and reactive to light bilaterally, mucous membranes moist. Cardiovascular: Heart regular rate and rhythm, S1&S2 audible, no murmurs, rubs or gallops Chest: Lungs clear to auscultation bilaterally, no rhonchi, no wheeze, no rales Abdomen: Bowel sounds present, abdomen soft, non-tender, non-distended, no organomegaly, obese Musculoskeletal: Pulses present and equal in all extremities, bilateral lower extremity pitting edema Motor: Power 5/5 bilaterally, no focal deficits noted Neurological: CN II-XII grossly intact, no focal motor or sensory deficits noted Skin: Intact with no visualized rashes Psych: Normal affect and mood Limitations: no limitations Course Vital Signs 03/19/18 03/19/18 23:09 23:13 Temperature 97.9 F Pulse Rate 85 Respiratory 20 20 Rate Blood Pressure 156/74 O2 Sat by Pulse 98 Oximetry Medical Decision Making - Medical Decision Making ED course: 58-year-old female with multiple comorbidities presents with shortness of breath and left lower extremity pain. It is well-known to emergency department for multiple visitations. Vital signs upon arrival are within acceptable limits. Patient is not tachypneic nor is she hypoxic. Her vital signs are within normal limits. Physical examination concerning for cellulitis. No external signs of infection. During physical examination when she is distracted patient changes aside of her pain. There is strong suspicion that patient is malingering. Patient is on at therapeutic dose of Xarelto. Patient had multiple workups for DVTs, PEs. Patient is not showing any signs of labored breathing. At this point I feel as though patient would not benefit from any further workups. Patient is not showing any signs of labored breathing. She's not tachypneic or hypoxic. Patient's symptoms likely multifactorial however I believe there is a strong component of body habitus to difficulty in breathing. Patient concerned that her symptoms are secondary to fluid retention in her legs. She is requesting IV Lasix. Feeling this is reasonable given the patient has good laboratory markers. Patient given 20 mg of IV Lasix and 1 tab of [place] for pain. She is to be discharged and to follow up with her primary care physician. EKG Interpretation: A 12 lead EKG was obtained. It was interpreted by myself and attending physician. There is a P wave before every QRS complex. Rate is a 82. Rhythm is normal sinus rhythm, NH interval 136, QRS 90, QTc 436. QT is not prolonged. No ST segment depression or elevation. . Overall, this EKG is unremarkable - Lab Data Result diagrams: 03/20/18 00:20 03/20/18 00:20 Lab Results 03/20/18 03/20/18 03/20/18 Range/Units 00:20 00:20 00:20 WBC 7.4 (3.8-10.6) k/uL RBC 4.07 (3.80-5.40) m/uL Hgb 10.7 L (11.4-16.0) gm/dL Hct 33.9 L (34.0-46.0) % MCV 83.3 (80.0-100.0) fL MCH 26.3 (25.0-35.0) pg MCHC 31.6 (31.0-37.0) g/dL RDW 15.1 (11.5-15.5) % Plt Count 279 (150-450) k/uL Neutrophils % 73 % Lymphocytes % 17 % Monocytes % 6 % Eosinophils % 2 % Basophils % 0 % Neutrophils # 5.4 (1.3-7.7) k/uL Lymphocytes # 1.2 (1.0-4.8) k/uL Monocytes # 0.4 (0-1.0) k/uL Eosinophils # 0.1 (0-0.7) k/uL Basophils # 0.0 (0-0.2) k/uL Hypochromasia Slight PT (9.0-12.0) sec INR (<1.2) APTT (22.0-30.0) sec Sodium 140 (137-145) mmol/L Potassium 4.4 (3.5-5.1) mmol/L Chloride 107 (98-107) mmol/L Carbon Dioxide 25 (22-30) mmol/L Anion Gap 8 mmol/L BUN 31 H (7-17) mg/dL Creatinine 0.70 (0.52-1.04) mg/dL Est GFR (CKD-EPI)AfAm >90 (>60 ml/min/1.73 sqM) Est GFR (CKD-EPI)NonAf >90 (>60 ml/min/1.73 sqM) Glucose 99 (74-99) mg/dL Calcium 9.4 (8.4-10.2) mg/dL Total Bilirubin 0.2 (0.2-1.3) mg/dL AST 37 H (14-36) U/L ALT 35 (9-52) U/L Alkaline Phosphatase 83 (38-126) U/L Total Creatine Kinase 91 (30-135) U/L CK-MB (CK-2) 0.9 (0.0-2.4) ng/mL CK-MB (CK-2) Rel Index 1.0 Troponin I <0.012 (0.000-0.034) ng/mL Total Protein 6.9 (6.3-8.2) g/dL Albumin 4.2 (3.5-5.0) g/dL 03/20/18 Range/Units 00:20 WBC (3.8-10.6) k/uL RBC (3.80-5.40) m/uL Hgb (11.4-16.0) gm/dL Hct (34.0-46.0) % MCV (80.0-100.0) fL MCH (25.0-35.0) pg MCHC (31.0-37.0) g/dL RDW (11.5-15.5) % Plt Count (150-450) k/uL Neutrophils % % Lymphocytes % % Monocytes % % Eosinophils % % Basophils % % Neutrophils # (1.3-7.7) k/uL Lymphocytes # (1.0-4.8) k/uL Monocytes # (0-1.0) k/uL Eosinophils # (0-0.7) k/uL Basophils # (0-0.2) k/uL Hypochromasia PT 9.3 (9.0-12.0) sec INR 0.9 (<1.2) APTT 23.8 (22.0-30.0) sec Sodium (137-145) mmol/L Potassium (3.5-5.1) mmol/L Chloride (98-107) mmol/L Carbon Dioxide (22-30) mmol/L Anion Gap mmol/L BUN (7-17) mg/dL Creatinine (0.52-1.04) mg/dL Est GFR (CKD-EPI)AfAm (>60 ml/min/1.73 sqM) Est GFR (CKD-EPI)NonAf (>60 ml/min/1.73 sqM) Glucose (74-99) mg/dL Calcium (8.4-10.2) mg/dL Total Bilirubin (0.2-1.3) mg/dL AST (14-36) U/L ALT (9-52) U/L Alkaline Phosphatase (38-126) U/L Total Creatine Kinase (30-135) U/L CK-MB (CK-2) (0.0-2.4) ng/mL CK-MB (CK-2) Rel Index Troponin I (0.000-0.034) ng/mL Total Protein (6.3-8.2) g/dL Albumin (3.5-5.0) g/dL Disposition Clinical Impression: Leg pain Disposition: HOME SELF-CARE Condition: Fair Instructions: Leg Pain (ED) Is patient prescribed a controlled substance at d/c from ED?: No Referrals: Libra Umaña MD [Primary Care Provider] - 1-2 days Time of Disposition: 01:11
[2018-03-20] MEDS ORDERED: FUROSEMIDE 10 MG/ML 2 ML VIAL IV STA (01:04)
[2018-03-20 01:05] LABS: Creatine Kinase MB 0.9 ng/mL (0.0-2.4); Troponin I <0.012 ng/mL (0.000-0.034)
[2018-03-20] MEDS ORDERED: HYDROcodone/APAP 5-325MG 1 EACH TAB PO STA (01:05)
[2018-03-20 01:43] VITALS: BP 161/77; PULSE 88
== END 2018-03-20 02:06 | disposition home or self-care (01) ==
LOC: EC 22:58
DX: M79.604 Pain in right leg (principal); M79.605 Pain in left leg; M79.89 Other specified soft tissue disorders; R06.02 Shortness of breath; J45.909 Unspecified asthma, uncomplicated; E11.9 Type 2 diabetes mellitus without complications; K21.9 Gastro-esophageal reflux disease without esophagitis; E78.5 Hyperlipidemia, unspecified; I10 Essential (primary) hypertension; E03.9 Hypothyroidism, unspecified; M19.90 Unspecified osteoarthritis, unspecified site; G25.81 Restless legs syndrome; E66.01 Morbid (severe) obesity due to excess calories; Z68.44 Body mass index [BMI] 60.0-69.9, adult; F31.9 Bipolar disorder, unspecified; F41.9 Anxiety disorder, unspecified; Z86.711 Personal history of pulmonary embolism; Z79.51 Long term (current) use of inhaled steroids; Z79.1 Long term (current) use of non-steroidal anti-inflammatories (NSAID); Z79.899 Other long term (current) drug therapy; Z88.0 Allergy status to penicillin; Z88.2 Allergy status to sulfonamides; Z88.7 Allergy status to serum and vaccine; Z88.8 Allergy status to other drugs, medicaments and biological substances; Z96.651 Presence of right artificial knee joint
CPT/HCPCS: 36415; 71046; 80053; 82550; 82553; 83880; 84484; 85025; 85610; 85730; 93005; 96374; 99285

== ENCOUNTER 2018-03-23 15:28 | Emergency (ER) | payer MEDICARE, OTHER ==
[2018-03-23 15:33] VITALS: BP 153/63; PULSE 94; RESP 18; TEMP 98.2
--- NOTE | 2018-03-23 15:47 | ED ---
Fall HPI - General Chief Complaint: Fall Stated Complaint: fall Time Seen by Provider: 03/23/18 15:31 Source: patient Mode of arrival: EMS - History of Present Illness Initial Comments: 58-year-old female patient presents the emergency department today for evaluation of left arm injury. The patient states that she went to sit down on her walker, station states that back for half and fell landing on her bottom. Patient states she did strike her right arm on a walker. States that she noticed some bruising and swelling to the area. States that she takes blood thinning medications and was concerned because she has a history of blood clots. Patient denies any significant pain to the arm. Denies any bony tenderness or concerns for fracture. Denies any numbness or tingling to the arm. She denies hitting her head or losing consciousness during the fall. Denies any other injuries. Patient denies any headache, neck pain, back pain, chest pain, shortness of breath, dizziness, weakness, abdominal pain, nausea, vomiting, or difficulties with bowel movements or urination. - Related Data Home Medications Medication Instructions Recorded Confirmed Mirabegron [Myrbetriq] 50 mg PO DAILY 05/23/17 03/19/18 Atorvastatin [Lipitor] 10 mg PO HS 06/07/17 03/19/18 Carvedilol [Coreg] 25 mg PO BID 06/07/17 03/19/18 Cholecalciferol [Vitamin D3] 10,000 unit PO DAILY 06/07/17 03/19/18 Loratadine [Claritin] 10 mg PO DAILY 06/07/17 03/19/18 Multivitamins, Thera [Multivitamin 1 tab PO DAILY 06/07/17 03/19/18 (formulary)] Omeprazole 20 mg PO DAILY 06/07/17 03/19/18 DULoxetine HCL [Cymbalta] 60 mg PO DAILY 10/20/17 03/19/18 Levothyroxine Sodium [Synthroid] 137 mcg PO DAILY 10/20/17 03/19/18 hydrALAZINE HCL [Apresoline] 50 mg PO QID 10/20/17 03/19/18 hydrOXYzine PAMOATE 25 mg PO TID 11/11/17 03/19/18 Ibuprofen [Motrin] 800 mg PO TID 12/10/17 03/19/18 traZODone HCL 200 mg PO HS 12/10/17 03/19/18 Furosemide [Lasix] 20 mg PO BID 01/08/18 03/19/18 Fluticasone/Umeclidin/Vilanter 1 puff INHALATION RT-DAILY 01/13/18 03/19/18 [Trelegy Ellipta 100-62.5-25] Glycopyrrolate/Formoterol Fum 1 puff INHALATION RT-BID 01/13/18 03/19/18 [Bevespi Aerosphere Inhaler] Albuterol Inhaler [Ventolin Hfa 1 - 2 puff INHALATION RT-QID PRN 02/09/18 Inhaler] Mirtazapine [Remeron] 15 mg PO HS 03/19/18 03/19/18 Potassium Chloride ER [K-Dur 10] 10 meq PO BID 03/19/18 03/19/18 QUEtiapine [SEROquel] 100 mg PO HS 03/19/18 03/19/18 Previous Rx's Medication Instructions Recorded Rivaroxaban [Xarelto] 20 mg PO DAILY 90 Days #90 tab 11/18/17 Allergies Allergy/AdvReac Type Severity Reaction Status Date / Time buspirone [From BuSpar] Allergy Unknown Verified 03/19/18 23:37 haloperidol [From Haldol] Allergy Swelling Verified 03/19/18 23:37 iodine Allergy Swelling Verified 03/19/18 23:37 Penicillins Allergy Swelling Verified 03/19/18 23:37 prochlorperazine Allergy Rash/Hives Verified 03/19/18 23:37 Sulfa (Sulfonamide Allergy Rash/Hives Verified 03/19/18 23:37 Antibiotics) Tetanus Vaccines and Toxoid Allergy Rash/Hives Verified 03/19/18 23:37 [Tetanus Vaccines & Toxoid] trifluoperazine HCl Allergy Unknown Verified 03/19/18 23:37 [From Stelazine] Review of Systems ROS Statement: Those systems with pertinent positive or pertinent negative responses have been documented in the HPI. ROS Other: All systems not noted in ROS Statement are negative. Past Medical History Past Medical History: Asthma, COPD, Diabetes Mellitus, GERD/Reflux, Hyperlipidemia, Hypertension, Musculoskeletal Disorder, Osteoarthritis (OA), Pneumonia, Pulmonary Embolus (PE), Thyroid Disorder Additional Past Medical History / Comment(s): Recently diagnosed with asthma and recently treated for bronchitis with antibiotic, diet controlled diabetes, morbid obesity, hypothyroid, UTI, RLS, anemia, lumbar pain with herniated discs. dx with cellulitis left leg on 02/14/2018 pt put on abx for this History of Any Multi-Drug Resistant Organisms: None Reported Past Surgical History: Bariatric Surgery, Hernia Repair, Orthopedic Surgery Additional Past Surgical History / Comment(s): Total Right knee replacement, 3 abdominal hernia repairs, left hip repair Past Anesthesia/Blood Transfusion Reactions: No Reported Reaction Past Psychological History: Anxiety, Bipolar, Depression Smoking Status: Never smoker Past Alcohol Use History: Occasional Past Drug Use History: None Reported - Past Family History Mother Family Medical History: Cancer Additional Family Medical History / Comment(s): lung cancer Father Additional Family Medical History / Comment(s): "my dad from a blood clot that traveled from his leg to his lung and also caused a heart attack." Brother(s) Family Medical History: Diabetes Mellitus Sister(s) Additional Family Medical History / Comment(s): "her heart races too fast" General Exam Limitations: no limitations General appearance: alert, in no apparent distress, other (Social well-developed , morbidly obese adult female patient in no acute distress. Vital signs upon presentation are temperature 98.2F, pulse 94, respirations 18, blood pressure 153/63, pulse ox 100% on room air.) Head exam: Present: atraumatic, normocephalic, normal inspection Eye exam: Present: normal appearance, PERRL, EOMI. Absent: scleral icterus, conjunctival injection, periorbital swelling ENT exam: Present: normal exam, normal oropharynx, mucous membranes moist Neck exam: Present: normal inspection, full ROM, other (Nontender, no step-off, no deformity to firm midline palpation of the posterior cervical spine. Full range of motion without pain or limitation.). Absent: tenderness, meningismus, lymphadenopathy Respiratory exam: Present: normal lung sounds bilaterally. Absent: respiratory distress, wheezes, rales, rhonchi, stridor Cardiovascular Exam: Present: regular rate, normal rhythm, normal heart sounds. Absent: systolic murmur, diastolic murmur, rubs, gallop, clicks GI/Abdominal exam: Present: soft, normal bowel sounds. Absent: distended, tenderness, guarding, rebound, rigid Extremities exam: Present: full ROM, normal capillary refill, other (Patient has presence of small hematoma to the dorsal aspect of the left forearm. There is some mild soft tissue swelling. There is no bony step-off, deformity, or tenderness to palpation. Remainder of skin is pink, warm, and dry. Cap refills less than 3 seconds. Radial pulses are 2+ and equal bilaterally.). Absent: normal inspection, tenderness, pedal edema, joint swelling, calf tenderness Back exam: Present: normal inspection. Absent: vertebral tenderness Neurological exam: Present: alert, oriented X3, CN II-XII intact Psychiatric exam: Present: normal affect, normal mood Skin exam: Present: warm, dry, intact, normal color. Absent: rash Course Vital Signs 03/23/18 15:29 Temperature 98.2 F Pulse Rate 94 Respiratory 18 Rate Blood Pressure 153/63 O2 Sat by Pulse 100 Oximetry Medical Decision Making - Medical Decision Making 58-year-old female patient presents to the emergency department today for evaluation of injury to the left forearm. Physical examination did reveal small hematoma noted to the left forearm with mild soft tissue swelling. There is no bony abnormalities. Patient denies any significant pain. There is no concern for fracture at this time. Patient was given ice pack to help decrease size of the hematoma. She is instructed to continue applying ice or of the night. She is instructed to follow-up with her primary care physician for recheck in 1-2 days. Return parameters were discussed in detail. She verbalizes understanding and agrees with this plan. Disposition Clinical Impression: Hematoma of arm Narrative: Left arm Disposition: HOME SELF-CARE Condition: Good Instructions: Fall Prevention for Older Adults (ED), Hematoma (ED) Additional Instructions: Apply ice to the painful area. Follow-up with the primary care physician for recheck in 1-2 days. Return here immediately for any new, worsening, or concerning symptoms. Is patient prescribed a controlled substance at d/c from ED?: No Referrals: Libra Umaña MD [Primary Care Provider] - 1-2 days Time of Disposition: 15:47
== END 2018-03-23 16:32 | disposition home or self-care (01) ==
LOC: EC 15:28
DX: S50.12XA Contusion of left forearm, initial encounter (principal); J44.9 Chronic obstructive pulmonary disease, unspecified; E11.9 Type 2 diabetes mellitus without complications; K21.9 Gastro-esophageal reflux disease without esophagitis; E78.5 Hyperlipidemia, unspecified; I10 Essential (primary) hypertension; M19.90 Unspecified osteoarthritis, unspecified site; E03.9 Hypothyroidism, unspecified; Z86.718 Personal history of other venous thrombosis and embolism; E66.01 Morbid (severe) obesity due to excess calories; Z68.44 Body mass index [BMI] 60.0-69.9, adult; F31.9 Bipolar disorder, unspecified; F41.9 Anxiety disorder, unspecified; Z79.51 Long term (current) use of inhaled steroids; Z79.899 Other long term (current) drug therapy; Z88.0 Allergy status to penicillin; Z88.2 Allergy status to sulfonamides; Z88.7 Allergy status to serum and vaccine; Z88.8 Allergy status to other drugs, medicaments and biological substances; W18.09XA Striking against other object with subsequent fall, initial encounter
CPT/HCPCS: 99283

== ENCOUNTER 2018-03-27 19:55 | Observation (INO) | payer MEDICARE, OTHER ==
[2018-03-27] MEDS ORDERED: IPRATROPIUM-ALBUTEROL 3 ML NEB INHALATION STA (20:02)
--- NOTE | 2018-03-27 20:05 | ED ---
SOB HPI - General Stated Complaint: SJ Time Seen by Provider: 03/27/18 19:55 Source: patient, EMS, RN notes reviewed, old records reviewed Mode of arrival: EMS - History of Present Illness Initial Comments: This is a 58-year-old female with a history of COPD with frequent visits to the emergency department who complains tonight of shortness of breath and increased swelling to her lower extremities. She was brought in by EMS. They she's had difficulty breathing for last 2 days. She states she had a fever 2 nights ago. No phlegm production no chest pain reported she was noted by EMS to have a pulse ox of 96%. MD Complaint: shortness of breath - Related Data Home Medications Medication Instructions Recorded Confirmed Mirabegron [Myrbetriq] 50 mg PO DAILY 05/23/17 03/27/18 Atorvastatin [Lipitor] 10 mg PO HS 06/07/17 03/27/18 Carvedilol [Coreg] 25 mg PO BID 06/07/17 03/27/18 Cholecalciferol [Vitamin D3] 10,000 unit PO DAILY 06/07/17 03/27/18 Loratadine [Claritin] 10 mg PO DAILY 06/07/17 03/27/18 Multivitamins, Thera [Multivitamin 1 tab PO DAILY 06/07/17 03/27/18 (formulary)] Omeprazole 20 mg PO DAILY 06/07/17 03/27/18 DULoxetine HCL [Cymbalta] 60 mg PO DAILY 10/20/17 03/27/18 Levothyroxine Sodium [Synthroid] 137 mcg PO DAILY 10/20/17 03/27/18 hydrALAZINE HCL [Apresoline] 50 mg PO QID 10/20/17 03/27/18 hydrOXYzine PAMOATE 25 mg PO TID 11/11/17 03/27/18 Ibuprofen [Motrin] 800 mg PO TID 12/10/17 03/27/18 traZODone HCL 200 mg PO HS 12/10/17 03/27/18 Furosemide [Lasix] 20 mg PO BID 01/08/18 03/27/18 Fluticasone/Umeclidin/Vilanter 1 puff INHALATION RT-DAILY 01/13/18 03/27/18 [Trelegy Ellipta 100-62.5-25] Glycopyrrolate/Formoterol Fum 1 puff INHALATION RT-BID 01/13/18 03/27/18 [Bevespi Aerosphere Inhaler] Albuterol Inhaler [Ventolin Hfa 1 - 2 puff INHALATION RT-QID PRN 02/09/18 Inhaler] Mirtazapine [Remeron] 15 mg PO HS 03/19/18 03/27/18 Potassium Chloride ER [K-Dur 10] 10 meq PO BID 03/19/18 03/27/18 QUEtiapine [SEROquel] 100 mg PO HS 03/19/18 03/27/18 Previous Rx's Medication Instructions Recorded Rivaroxaban [Xarelto] 20 mg PO DAILY 90 Days #90 tab 11/18/17 Allergies Allergy/AdvReac Type Severity Reaction Status Date / Time buspirone [From BuSpar] Allergy Unknown Verified 03/27/18 19:59 haloperidol [From Haldol] Allergy Swelling Verified 03/27/18 19:59 iodine Allergy Swelling Verified 03/27/18 19:59 Penicillins Allergy Swelling Verified 03/27/18 19:59 prochlorperazine Allergy Rash/Hives Verified 03/27/18 19:59 Sulfa (Sulfonamide Allergy Rash/Hives Verified 03/27/18 19:59 Antibiotics) Tetanus Vaccines and Toxoid Allergy Rash/Hives Verified 03/27/18 19:59 [Tetanus Vaccines & Toxoid] trifluoperazine HCl Allergy Unknown Verified 03/27/18 19:59 [From Stelazine] Review of Systems ROS Statement: Those systems with pertinent positive or pertinent negative responses have been documented in the HPI. ROS Other: All systems not noted in ROS Statement are negative. Past Medical History Past Medical History: Asthma, COPD, Diabetes Mellitus, GERD/Reflux, Hyperlipidemia, Hypertension, Musculoskeletal Disorder, Osteoarthritis (OA), Pneumonia, Pulmonary Embolus (PE), Thyroid Disorder Additional Past Medical History / Comment(s): Recently diagnosed with asthma and recently treated for bronchitis with antibiotic, diet controlled diabetes, morbid obesity, hypothyroid, UTI, RLS, anemia, lumbar pain with herniated discs. dx with cellulitis left leg on 02/14/2018 pt put on abx for this History of Any Multi-Drug Resistant Organisms: None Reported Past Surgical History: Bariatric Surgery, Hernia Repair, Orthopedic Surgery Additional Past Surgical History / Comment(s): Total Right knee replacement, 3 abdominal hernia repairs, left hip repair Past Anesthesia/Blood Transfusion Reactions: No Reported Reaction Past Psychological History: Anxiety, Bipolar, Depression Smoking Status: Never smoker Past Alcohol Use History: Occasional Past Drug Use History: None Reported - Past Family History Mother Family Medical History: Cancer Additional Family Medical History / Comment(s): lung cancer Father Additional Family Medical History / Comment(s): "my dad from a blood clot that traveled from his leg to his lung and also caused a heart attack." Brother(s) Family Medical History: Diabetes Mellitus Sister(s) Additional Family Medical History / Comment(s): "her heart races too fast" General Exam - General Exam Comments Initial Comments: This a well-developed morbidly obese female who is awake alert oriented 3 General appearance: alert, anxious Head exam: Present: atraumatic, normocephalic, normal inspection Eye exam: Present: normal appearance, PERRL, EOMI. Absent: scleral icterus, conjunctival injection, periorbital swelling ENT exam: Present: normal exam, mucous membranes moist Neck exam: Present: normal inspection. Absent: tenderness, meningismus, lymphadenopathy Respiratory exam: Present: decreased breath sounds, other (Ms. breath sounds especially on the left.). Absent: respiratory distress, wheezes, rales, rhonchi , stridor Cardiovascular Exam: Present: regular rate, normal rhythm, normal heart sounds. Absent: systolic murmur, diastolic murmur, rubs, gallop, clicks GI/Abdominal exam: Present: soft, normal bowel sounds, other (Obese abdomen with evidence of tinea infection underneath the pannus.). Absent: distended, tenderness, guarding, rebound, rigid Rectal exam: Present: deferred Extremities exam: Present: full ROM, tenderness (Mild discomfort to palpation no palpable cords), normal capillary refill, pedal edema. Absent: joint swelling, calf tenderness Back exam: Present: normal inspection Neurological exam: Present: alert, oriented X3, CN II-XII intact Psychiatric exam: Present: normal affect, normal mood Skin exam: Present: warm, dry, intact, normal color. Absent: rash Course Vital Signs 03/27/18 03/27/18 03/27/18 19:59 20:16 20:33 Temperature 98 F Pulse Rate 100 98 95 Respiratory 22 Rate Blood Pressure 158/90 O2 Sat by Pulse 99 Oximetry 03/27/18 22:26 Temperature Pulse Rate 102 H Respiratory 18 Rate Blood Pressure 178/78 O2 Sat by Pulse 98 Oximetry - Reevaluation(s) Reevaluation #1: 03/28/18 00:06 I did reevaluate the patient she still is experiencing dyspnea. This is in spite of the initial treatment. Medical Decision Making - Medical Decision Making The patient initial tracing dyspnea. She'll be admitted for inpatient treatment of COPD exacerbation - Lab Data Result diagrams: 03/27/18 20:15 03/27/18 20:15 Lab Results 03/27/18 03/27/18 03/27/18 Range/Units 20:15 20:15 20:15 WBC 8.7 (3.8-10.6) k/uL RBC 3.76 L (3.80-5.40) m/uL Hgb 9.9 L (11.4-16.0) gm/dL Hct 31.3 L (34.0-46.0) % MCV 83.4 (80.0-100.0) fL MCH 26.2 (25.0-35.0) pg MCHC 31.4 (31.0-37.0) g/dL RDW 14.9 (11.5-15.5) % Plt Count 297 (150-450) k/uL Neutrophils % 73 % Lymphocytes % 16 % Monocytes % 5 % Eosinophils % 2 % Basophils % 0 % Neutrophils # 6.3 (1.3-7.7) k/uL Lymphocytes # 1.4 (1.0-4.8) k/uL Monocytes # 0.4 (0-1.0) k/uL Eosinophils # 0.2 (0-0.7) k/uL Basophils # 0.0 (0-0.2) k/uL Hypochromasia Moderate PT (9.0-12.0) sec INR (<1.2) APTT (22.0-30.0) sec D-Dimer (<0.60) mg/L FEU Sodium 141 (137-145) mmol/L Potassium 4.0 (3.5-5.1) mmol/L Chloride 109 H (98-107) mmol/L Carbon Dioxide 23 (22-30) mmol/L Anion Gap 9 mmol/L BUN 25 H (7-17) mg/dL Creatinine 0.80 (0.52-1.04) mg/dL Est GFR (CKD-EPI)AfAm >90 (>60 ml/min/1.73 sqM) Est GFR (CKD-EPI)NonAf 82 (>60 ml/min/1.73 sqM) Glucose 106 H (74-99) mg/dL Calcium 9.2 (8.4-10.2) mg/dL Magnesium 1.9 (1.6-2.3) mg/dL Total Bilirubin 0.1 L (0.2-1.3) mg/dL AST 23 (14-36) U/L ALT 32 (9-52) U/L Alkaline Phosphatase 86 (38-126) U/L Total Creatine Kinase 28 L (30-135) U/L CK-MB (CK-2) 0.8 (0.0-2.4) ng/mL CK-MB (CK-2) Rel Index 2.9 Troponin I <0.012 (0.000-0.034) ng/mL NT-Pro-B Natriuret Pep pg/mL Total Protein 6.4 (6.3-8.2) g/dL Albumin 3.9 (3.5-5.0) g/dL 03/27/18 03/27/18 Range/Units 20:15 20:15 WBC (3.8-10.6) k/uL RBC (3.80-5.40) m/uL Hgb (11.4-16.0) gm/dL Hct (34.0-46.0) % MCV (80.0-100.0) fL MCH (25.0-35.0) pg MCHC (31.0-37.0) g/dL RDW (11.5-15.5) % Plt Count (150-450) k/uL Neutrophils % % Lymphocytes % % Monocytes % % Eosinophils % % Basophils % % Neutrophils # (1.3-7.7) k/uL Lymphocytes # (1.0-4.8) k/uL Monocytes # (0-1.0) k/uL Eosinophils # (0-0.7) k/uL Basophils # (0-0.2) k/uL Hypochromasia PT 9.9 (9.0-12.0) sec INR 1.0 (<1.2) APTT 24.8 (22.0-30.0) sec D-Dimer 0.94 H (<0.60) mg/L FEU Sodium (137-145) mmol/L Potassium (3.5-5.1) mmol/L Chloride (98-107) mmol/L Carbon Dioxide (22-30) mmol/L Anion Gap mmol/L BUN (7-17) mg/dL Creatinine (0.52-1.04) mg/dL Est GFR (CKD-EPI)AfAm (>60 ml/min/1.73 sqM) Est GFR (CKD-EPI)NonAf (>60 ml/min/1.73 sqM) Glucose (74-99) mg/dL Calcium (8.4-10.2) mg/dL Magnesium (1.6-2.3) mg/dL Total Bilirubin (0.2-1.3) mg/dL AST (14-36) U/L ALT (9-52) U/L Alkaline Phosphatase (38-126) U/L Total Creatine Kinase (30-135) U/L CK-MB (CK-2) (0.0-2.4) ng/mL CK-MB (CK-2) Rel Index Troponin I (0.000-0.034) ng/mL NT-Pro-B Natriuret Pep 170 pg/mL Total Protein (6.3-8.2) g/dL Albumin (3.5-5.0) g/dL - EKG Data -: EKG Interpreted by Md EKG shows normal: sinus rhythm (Sinus rhythm rate of 98. Interval 150 spiritism 82 QT since QTC 340/434 this is a normal-appearing EKG.) - Radiology Data Radiology results: report reviewed, image reviewed Critical Care Time Critical Care Time: Yes Critical Care Time: 31 minutes of critical care time which includes monitoring EMS call discussed with paramedics history physical labs x-rays multiple re-evaluations the patient. Discussed this with the patient regarding the findings discussion with the admitting service review of old charting admission orders and documentation of the above Disposition Clinical Impression: Acute exacerbation of chronic obstructive airways disease, Adult respiratory distress syndrome Disposition: ADMITTED IP TO THIS [facility] Condition: Stable Referrals: Libra Umaña MD [Primary Care Provider] - 1-2 days
[2018-03-27 20:31] LABS: Basophils % (A) 0 %; Eosinophils # (A) 0.2 k/uL (0-0.7); Eosinophils % (A) 2 %; HCT 31.3 % (34.0-46.0); HGB 9.9 gm/dL (11.4-16.0); Hypochromasia Moderate; Lymphocytes # (A) 1.4 k/uL (1.0-4.8); Lymphocytes % (A) 16 %; MCH 26.2 pg (25.0-35.0); MCHC 31.4 g/dL (31.0-37.0); MCV 83.4 fL (80.0-100.0); Mean Platelet Volume 7.1; Monocytes # (A) 0.4 k/uL (0-1.0); Monocytes % (A) 5 %; Neutrophils # (A) 6.3 k/uL (1.3-7.7); Neutrophils % (A) 73 %; Platelet Count 297 k/uL (150-450); RBC 3.76 m/uL (3.80-5.40); RDW 14.9 % (11.5-15.5); WBC 8.7 k/uL (3.8-10.6)
[2018-03-27 20:43] LABS: ALT 32 U/L (9-52); AST 23 U/L (14-36); Albumin 3.9 g/dL (3.5-5.0); Alkaline Phosphatase 86 U/L (38-126); Anion Gap 9 mmol/L; Blood Urea Nitrogen 25 mg/dL (7-17); Calcium 9.2 mg/dL (8.4-10.2); Carbon Dioxide 23 mmol/L (22-30); Chloride 109 mmol/L (98-107); Glucose 106 mg/dL (74-99); Magnesium 1.9 mg/dL (1.6-2.3); Sodium 141 mmol/L (137-145); Total Bilirubin 0.1 mg/dL (0.2-1.3); Total Protein 6.4 g/dL (6.3-8.2)
[2018-03-27 20:47] LABS: Creatine Kinase 28 U/L (30-135); Partial Thromboplastin Time 24.8 sec (22.0-30.0); Prothrombin Time 9.9 sec (9.0-12.0)
[2018-03-27 20:59] LABS: D-Dimer 0.94 mg/L FEU (<0.60)
[2018-03-27 21:00] LABS: Creatine Kinase MB 0.8 ng/mL (0.0-2.4); Troponin I <0.012 ng/mL (0.000-0.034)
--- NOTE | 2018-03-27 21:36 | XR ---
EXAMINATION TYPE: XR chest 2V DATE OF EXAM: 03/27/2018 COMPARISON: 03/19/2018 HISTORY: Short of breath TECHNIQUE: Frontal and lateral views of the chest are obtained. FINDINGS: There is no heart failure nor confluent pneumonic infiltrate. Heart is slightly enlarged. Bony thorax is intact. The heart is shifted slightly to the left side. IMPRESSION: Heart is shifted to the left side slightly. This is new compared to old exam and could r elate to some atelectasis in the left lung. No pulmonary consolidation or heart failure.
[2018-03-27] MEDS ORDERED: diphenhydrAMINE 50 MG/ML 1 ML VIAL IVP STA (22:27)
[2018-03-27] MEDS ORDERED: FAMOTIDINE 20 MG/2 ML VIAL IV STA (22:27)
[2018-03-27] MEDS ORDERED: methylPREDNISolone SOD SUCCI 125 MG/2 ML VIAL IV STA (22:27)
--- NOTE | 2018-03-27 23:35 | CT ---
EXAMINATION TYPE: CT angio chest DATE OF EXAM: 03/27/2018 11:21 PM COMPARISON: 01/14/2018 HISTORY: R/o PE CT DLP: 831.40 mGycm Automated exposure control for dose reduction was used. CONTRAST: CTA scan of the thorax is performed with IV Contrast, patient injected with 90 mL of Isovue 370, pulm onary embolism protocol. There are 3-D post processed images.. FINDINGS: There is mild coarsening of pulmonary interstitial markings. There is no pulmonary consolidation. The re is no evidence of a pulmonary mass. There is no pleural effusion. There is no evidence of aortic aneurysm or dissection. I see no filling defects in the pulmonary arteries. There is suboptimal contrast density in the smaller branches of t he pulmonary arteries. There is no mediastinal adenopathy. There are no hilar masses. Heart is shifte d to the left side. Impression No evidence of pulmonary embolism. There is some shift of the heart to the left side that is consiste nt with some degree of atelectasis in the left lower lobe that is a changing pattern compared to old CT scan.. Volume loss is similar to old exam.
[2018-03-28] MEDS ORDERED: IPRATROPIUM-ALBUTEROL 3 ML NEB INHALATION PRN (00:27)
[2018-03-28] MEDS: SODIUM CHLORIDE 0.9% 1,000 ML IV SCH ×2 (03:37→23:22)
[2018-03-28] MEDS: NYSTATIN 100,000 UNIT/GM POWD 15 GM TOPICAL SCH ×3 (03:48→20:57)
[2018-03-28] MEDS ORDERED: IPRATROPIUM-ALBUTEROL 3 ML NEB INHALATION SCH (04:00)
[2018-03-28] MEDS: methylPREDNISolone SOD SUCCI 125 MG/2 ML VIAL IV SCH ×4 (06:12→23:22)
[2018-03-28] MEDS: LEVOTHYROXINE 137 MCG TAB PO SCH (06:13)
[2018-03-28] MEDS: CARVEDILOL 12.5 MG TAB PO SCH ×2 (06:15→18:25)
[2018-03-28] MEDS: FUROSEMIDE 20 MG TAB PO SCH ×2 (06:17→20:23)
[2018-03-28] MEDS: PANTOPRAZOLE 40 MG TABLET PO SCH (06:19)
[2018-03-28] MEDS: ALPRAZolam 0.25 MG TAB PO PRN ×3 (06:50→22:14)
[2018-03-28] MEDS: IPRATROPIUM-ALBUTEROL 3 ML NEB INHALATION SCH ×4 (08:13→19:47)
[2018-03-28] MEDS: CHOLECALCIFEROL 1,000 UNIT TAB PO SCH (08:49)
[2018-03-28] MEDS: POTASSIUM CHLORIDE ER 10 MEQ TAB.ER.PRT PO SCH ×2 (08:50→20:23)
[2018-03-28] MEDS: MULTIVITAMINS, THERA 1 EACH TAB PO SCH (08:50)
[2018-03-28] MEDS: hydrOXYzine PAMOATE 25 MG CAP PO SCH ×3 (08:50→21:08)
[2018-03-28] MEDS: DULoxetine HCL 60 MG CAPSULE.DR PO SCH (08:51)
[2018-03-28] MEDS: hydrALAZINE HCL 50 MG TAB PO SCH ×4 (08:51→22:19)
[2018-03-28] MEDS: LORATADINE 10 MG TAB PO SCH (08:51)
[2018-03-28] MEDS: RIVAROXABAN 20 MG TAB PO SCH (08:52)
[2018-03-28] MEDS: NON-FORMULARY DRUG (Mirabegron [Myrbetriq] 50 MG) PO SCH (08:53)
[2018-03-28] MEDS: IBUPROFEN 800 MG TAB PO SCH ×3 (08:57→22:14)
[2018-03-28 12:07] LABS: Glucose,Whole Blood 140 mg/dL (75-99)
[2018-03-28] MEDS ORDERED: HYDROcodone/APAP 5-325MG 1 EACH TAB PO PRN (15:31)
[2018-03-28] MEDS ORDERED: TEMAZEPAM 15 MG CAP PO PRN (15:31)
[2018-03-28] MEDS ORDERED: ACETAMINOPHEN TAB 500 MG TAB PO PRN (15:31)
[2018-03-28] MEDS ORDERED: hydrALAZINE HCL 20 MG/ML 1 ML VIAL IVP PRN (15:35)
[2018-03-28] MEDS ORDERED: cloNIDine HCL 0.1 MG TAB PO PRN (15:35)
--- NOTE | 2018-03-28 16:22 | HP ---
HISTORY AND PHYSICAL DATE OF SERVICE: 03/28/2018 CHIEF COMPLAINT: Shortness of breath. HISTORY OF PRESENT ILLNESS: This 58-year-old woman with a past medical history of asthma, COPD, CHF, diabetes, GERD, hypertension, hyperlipidemia being followed by Dr. Umaña in the outpatient setting was recently admitted to [facility] last week with COPD acute exacerbation. Patient improved. Apparently patient went home. Patient apparently had a fall. Patient also had increased shortness of breath and cough and the patient came to [facility] and admitted for further evaluation and treatment. D- dimer was slightly elevated and CTA was negative for any pulmonary embolism. There is no history of any fever, rigors. No history of headache, loss of consciousness, seizures. PAST MEDICAL HISTORY: History of asthma, COPD, CHF, diabetes, GERD, hypertension and hyperlipidemia. MEDICATIONS: Prior to admission include home medications are: 1. Trazodone 200 mg q.h.s. 2. Hydroxyzine 25 mg t.i.d. 3. Apresoline 50 mg p.o. q.i.d. 4. Xarelto 20 mg p.o. daily. 5. Seroquel 100 mg q.h.s. 6. K-Dur 10 mEq p.o. b.i.d. 7. Omeprazole 20 mg p.o. daily. 8. Multivitamins one p.o. daily. 9. Remeron 15 mg q.h.s. 10.Myrbetriq 50 mg p.o. daily. 11.Claritin 10 mg p.o. daily. 12.Synthroid 137 mcg p.o. daily. 13.Motrin 800 mg p.o. t.i.d. 14.Glycopyrrolate 1 b.i.d. 15.Lasix 20 mg p.o. b.i.d. 16.Trelegy Ellipta 1 puff daily. 17.Cymbalta 60 mg daily. 18.Vitamin D3 10,000. 19.Coreg 25 mg p.o. b.i.d. 20.Lipitor 10 mg q.h.s. 21.Ventolin 1-2 puffs q.i.d. p.r.n. ALLERGIES: Are BUSPAR, HALDOL, IODINE, PENICILLIN, SULFA, TETANUS and STELAZINE. FAMILY HISTORY: History of lung cancer in the family. SOCIAL HISTORY: No history of smoking. No history of alcohol. REVIEW OF SYSTEMS: ENT: No diminished vision. No diminished hearing. CARDIOVASCULAR: No angina or palpitations. RESPIRATORY: As mentioned earlier. GI: No nausea or vomiting. : No dysuria or hematuria. NERVOUS SYSTEM: No numbness or weakness. ALLERGY/IMMUNOLOGY: No asthma or hayfever. MUSCULOSKELETAL as mentioned earlier. HEMATOLOGY/ONCOLOGY: No history of anemia. ENDOCRINE: As mentioned earlier. CONSTITUTIONAL: As mentioned earlier. DERMATOLOGY: Negative. RHEUMATOLOGY: Negative. PSYCHIATRY: As mentioned earlier. PHYSICAL EXAMINATION: Alert and oriented x3. The pulse is 96, blood pressure is 178/99, respiration 16, temperature 97.9, pulse ox 97% on 2 L. HEENT is conjunctivae normal. Oral mucosa moist. Neck is no jugular venous distention. No carotid bruit. No lymph node enlargement. CARDIOVASCULAR SYSTEMS: S1, S2 muffled. RESPIRATORY: Breath sounds diminished in the bases. Bilateral scattered rhonchi and crackles. Expiratory wheezing also present. ABDOMEN: Soft, nontender. No mass palpable. LEGS: No edema and no swelling. NERVOUS SYSTEM: Higher functions as mentioned earlier. Moves all four extremities. No focal deficits. LYMPHATICS: No lymph nodes palpable in the neck, axillae or groin. SKIN: No ulcer, rash or bleeding. JOINTS: No active deforming arthropathy. LABS: At this time shows WBC 8.7, hemoglobin 9.9, sodium 141, potassium 4, glucose 106. ASSESSMENT: 1. Chronic obstructive pulmonary disease, bronchial asthma acute exacerbation with acute purulent tracheobronchitis with failure of outpatient treatment. 2. History of asthma, chronic obstructive pulmonary disease. 3. History of congestive heart failure. 4. Diabetes type 2. 5. Gastroesophageal reflux disease. 6. Hypertension. 7. Hyperlipidemia. 8. Degenerative joint disease. 9. History pneumonia. 10.History of pulmonary embolism. 11.History of hypothyroidism. 12.Bariatric surgery. 13.Anxiety/bipolar depression, panic disorder, PTSD. 14.Borderline personality disorder. 15.Super morbid obesity with a BMI of 65.9. RECOMMENDATIONS AND DISCUSSION: In this 58-year-old woman who presented with multiple complex medical issues, we will monitor the patient closely, continue the current medications, management and symptomatic treatment. We will initiate intensive bronchodilator treatment and also IV steroids. Empiric antibiotics. Monitor blood sugars closely. Resume the home medications. Guarded prognosis because of multiple complex medical issues. Further recommendations to follow. A copy of dictation being forwarded to Dr. Umaña who is the primary care physician. MMBASILIOL / GRIFFINN: [id number] / MTDD
[2018-03-28 17:23] LABS: Glucose,Whole Blood 186 mg/dL (75-99)
[2018-03-28] MEDS: DEXTROSE 5% IN WATER 1,000 ML with SODIUM BICARB (1 MEQ/ML) 150 ML IV SCH ×2 (17:55→23:21)
[2018-03-28] MEDS ORDERED: LORazepam 2 MG/ML INJ IV PRN (18:13)
[2018-03-28] MEDS: INSULIN ASPART 100 UNIT/ML 1 ML 10 ML VIAL SQ SCH ×2 (18:26→21:17)
[2018-03-28] MEDS: SYMBICORT 80-4.5 MCG INHALER INHALATION SCH (19:47)
[2018-03-28] MEDS ORDERED: ZIPRASIDONE 20 MG VIAL IM STA (19:50)
[2018-03-28] MEDS ORDERED: diphenhydrAMINE 25 MG CAP PO STA (19:51)
[2018-03-28] MEDS ORDERED: FORMOTEROL FUMARATE 20 MCG/2 ML NEBU INHALATION SCH (20:00)
[2018-03-28] MEDS: MIRTAZAPINE 15 MG TAB PO SCH ×2 (20:23→21:09)
[2018-03-28] MEDS: QUEtiapine 100 MG TAB PO SCH ×3 (20:23→22:26)
[2018-03-28] MEDS: traZODone HCL 100 MG TAB PO SCH ×3 (20:23→22:25)
[2018-03-28] MEDS ORDERED: ATORVASTATIN 10 MG TAB PO SCH (21:00)
[2018-03-28] MEDS ORDERED: rOPINIRole HCL 4 MG TABLET PO SCH (21:00)
[2018-03-28 21:18] LABS: Glucose,Whole Blood 157 mg/dL (75-99)
[2018-03-29] MEDS: methylPREDNISolone SOD SUCCI 125 MG/2 ML VIAL IV SCH (05:35)
[2018-03-29 07:55] VITALS: BP 165/83; RESP 20; TEMP 97.6
[2018-03-29] MEDS: LEVOTHYROXINE 137 MCG TAB PO SCH (08:03)
[2018-03-29] MEDS: DULoxetine HCL 60 MG CAPSULE.DR PO SCH (08:04)
[2018-03-29] MEDS: CHOLECALCIFEROL 1,000 UNIT TAB PO SCH (08:04)
[2018-03-29] MEDS: CARVEDILOL 12.5 MG TAB PO SCH (08:04)
[2018-03-29] MEDS: PANTOPRAZOLE 40 MG TABLET PO SCH (08:04)
[2018-03-29] MEDS: hydrALAZINE HCL 50 MG TAB PO SCH ×2 (08:05→12:26)
[2018-03-29] MEDS: FUROSEMIDE 20 MG TAB PO SCH (08:05)
[2018-03-29] MEDS: hydrOXYzine PAMOATE 25 MG CAP PO SCH (08:07)
[2018-03-29] MEDS: MULTIVITAMINS, THERA 1 EACH TAB PO SCH (08:07)
[2018-03-29] MEDS: LORATADINE 10 MG TAB PO SCH (08:07)
[2018-03-29] MEDS: RIVAROXABAN 20 MG TAB PO SCH (08:07)
[2018-03-29] MEDS: NON-FORMULARY DRUG (Mirabegron [Myrbetriq] 50 MG) PO SCH (08:08)
[2018-03-29] MEDS: IBUPROFEN 800 MG TAB PO SCH (08:10)
[2018-03-29] MEDS: INSULIN ASPART 100 UNIT/ML 1 ML 10 ML VIAL SQ SCH ×2 (08:14→12:24)
[2018-03-29] MEDS: POTASSIUM CHLORIDE ER 10 MEQ TAB.ER.PRT PO SCH (08:14)
[2018-03-29 08:15] LABS: Glucose,Whole Blood 123 mg/dL (75-99)
[2018-03-29] MEDS: NYSTATIN 100,000 UNIT/GM POWD 15 GM TOPICAL SCH (08:15)
[2018-03-29] MEDS: IPRATROPIUM-ALBUTEROL 3 ML NEB INHALATION SCH ×2 (08:25→12:04)
[2018-03-29] MEDS: SYMBICORT 80-4.5 MCG INHALER INHALATION SCH (08:26)
[2018-03-29 08:54] LABS: Basophils % (A) 0 %; Eosinophils % (A) 0 %; HCT 32.9 % (34.0-46.0); Hypochromasia Moderate; Lymphocytes # (A) 1.1 k/uL (1.0-4.8); Lymphocytes % (A) 11 %; MCHC 30.5 g/dL (31.0-37.0); MCV 85.1 fL (80.0-100.0); Mean Platelet Volume 7.1; Monocytes # (A) 0.3 k/uL (0-1.0); Monocytes % (A) 3 %; Neutrophils # (A) 8.4 k/uL (1.3-7.7); Neutrophils % (A) 84 %; Platelet Count 310 k/uL (150-450); RBC 3.87 m/uL (3.80-5.40); RDW 14.9 % (11.5-15.5)
[2018-03-29 09:13] LABS: Anion Gap 12 mmol/L; Blood Urea Nitrogen 27 mg/dL (7-17); Calcium 9.5 mg/dL (8.4-10.2); Carbon Dioxide 24 mmol/L (22-30); Chloride 106 mmol/L (98-107); Glucose 209 mg/dL (74-99); Potassium 4.1 mmol/L (3.5-5.1); Sodium 142 mmol/L (137-145)
[2018-03-29] MEDS ORDERED: predniSONE 20 MG TAB PO SCH (11:15)
[2018-03-29 12:13] LABS: Glucose,Whole Blood 69 mg/dL (75-99)
[2018-03-29 12:15] LABS: Glucose,Whole Blood 81 mg/dL (75-99)
[2018-03-29 12:16] VITALS: PULSE 98
--- NOTE | 2018-03-29 13:05 | P.CNPUL ---
History of Present Illness Consult date: 03/29/18 Reason for consult: dyspnea, COPD Chief complaint: Shortness of breath History of present illness: Pulmonary consultative 03/29/2018 This is a 58-year-old obese female sees Dr. Umaña in my partner Dr. Means. She apparently has a history of COPD with frequent visits to the emergency department who comes in complains of complaining of shortness of breath and increased swelling to the lower extremities. She apparently was brought in by EMS. She apparently has been having great difficulty breathing for the last 2 days. She also states that she had a fever 2 days prior to admission. Is coughing a bit. Not producing any phlegm. No chest pain or pressure. No nausea vomiting or diarrhea. No urinary complaints. Pulse ox by EMS was mid to high 90s. The patient is currently in the shower ready to be bathed. She states that she's feeling much better. She apparently was admitted on the . I'm just seeing her today. She apparently has a history of COPD/asthma, diabetes mellitus, GERD, hyperlipidemia, hypertension, DJD, pneumonia, pulmonary embolism, hypothyroidism, morbid obesity, UTI, restless leg syndrome, anemia, chronic back pain, and cellulitis. According to the ER angela, she is a lifelong nonsmoker her underlying lung disease must be asthma. Review of Systems A 12 point review of systems is positive primarily for shortness of breath occurring about 2 days prior to admission. She has some chest tightness and wheezing. A bit of a cough. Not producing any phlegm. She did have fever 2 days prior to admission. No other complaints are admitted to. Past Medical History Past Medical History: Asthma, Heart Failure, COPD, Diabetes Mellitus, GERD/ Reflux, Hyperlipidemia, Hypertension, Musculoskeletal Disorder, Osteoarthritis ( OA), Pneumonia, Pulmonary Embolus (PE), Thyroid Disorder Additional Past Medical History / Comment(s): Recently diagnosed with asthma and recently treated for bronchitis with antibiotic, diet controlled diabetes, morbid obesity, hypothyroid, UTI, RLS, anemia, lumbar pain with herniated discs. dx with cellulitis left leg on 02/14/2018 pt put on abx for this History of Any Multi-Drug Resistant Organisms: None Reported Past Surgical History: Bariatric Surgery, Hernia Repair, Orthopedic Surgery Additional Past Surgical History / Comment(s): Total Right knee replacement, 3 abdominal hernia repairs, left hip repair Past Anesthesia/Blood Transfusion Reactions: No Reported Reaction Past Psychological History: Anxiety, Bipolar, Depression, Panic Disorder, PTSD Additional Psychological History / Comment(s): Borderline personality disorder. Pt states her mental health is stable at this time. She states she sees a psychiatrist at [facility] and has a watch caser there. Pt has a legal gaurdian, Caroline Chand. Pt states she currently resides at [facility] but she and a friend are in the process of relocating to independent living and legal borges is in aggreement with this plan. She cannot drive, she either takes the bus to [employer] or legal jony drives her to [employer]. She uses a cane or a walker to ambulate. She has a glucometer but no longer has to monitor her blood sugars. She has in the past had suicidal thoughts and plan and also homicidal thoughts but denies these being a current problem. Smoking Status: Never smoker Past Alcohol Use History: Occasional Additional Past Alcohol Use History / Comment(s): In 89-90' for three years past everyday drinker, states 10-12 drinks per day. Past Drug Use History: None Reported - Past Family History Mother Family Medical History: Cancer Additional Family Medical History / Comment(s): lung cancer Father Family Medical History: Diabetes Mellitus Additional Family Medical History / Comment(s): "my dad from a blood clot that traveled from his leg to his lung and also caused a heart attack." Brother(s) Family Medical History: Diabetes Mellitus Sister(s) Additional Family Medical History / Comment(s): "her heart races too fast" Medications and Allergies Home Medications Medication Instructions Recorded Confirmed Type Mirabegron [Myrbetriq] 50 mg PO DAILY 05/23/17 03/27/18 History Atorvastatin [Lipitor] 10 mg PO HS 06/07/17 03/27/18 History Carvedilol [Coreg] 25 mg PO BID 06/07/17 03/27/18 History Cholecalciferol [Vitamin D3] 10,000 unit PO DAILY 06/07/17 03/27/18 History Loratadine [Claritin] 10 mg PO DAILY 06/07/17 03/27/18 History Multivitamins, Thera [Multivitamin 1 tab PO DAILY 06/07/17 03/27/18 History (formulary)] Omeprazole 20 mg PO DAILY 06/07/17 03/27/18 History DULoxetine HCL [Cymbalta] 60 mg PO DAILY 10/20/17 03/27/18 History Levothyroxine Sodium [Synthroid] 137 mcg PO DAILY 10/20/17 03/27/18 History hydrALAZINE HCL [Apresoline] 50 mg PO QID 10/20/17 03/27/18 History hydrOXYzine PAMOATE 25 mg PO TID 11/11/17 03/27/18 History Rivaroxaban [Xarelto] 20 mg PO DAILY 90 Days #90 tab 11/18/17 03/27/18 Rx Ibuprofen [Motrin] 800 mg PO TID 12/10/17 03/27/18 History traZODone HCL 200 mg PO HS 12/10/17 03/27/18 History Furosemide [Lasix] 20 mg PO BID 01/08/18 03/27/18 History Fluticasone/Umeclidin/Vilanter 1 puff INHALATION RT-DAILY 01/13/18 03/27/18 History [Trelegy Ellipta 100-62.5-25] Glycopyrrolate/Formoterol Fum 1 puff INHALATION RT-BID 01/13/18 03/27/18 History [Bevespi Aerosphere Inhaler] Albuterol Inhaler [Ventolin Hfa 1 - 2 puff INHALATION RT-QID PRN 02/09/18 History Inhaler] Mirtazapine [Remeron] 15 mg PO HS 03/19/18 03/27/18 History Potassium Chloride ER [K-Dur 10] 10 meq PO BID 03/19/18 03/27/18 History QUEtiapine [SEROquel] 100 mg PO HS 03/19/18 03/27/18 History Acetaminophen Tab [Tylenol] 500 mg PO Q6HR PRN tab 03/29/18 Rx Ipratropium-Albuterol Nebulize 3 ml INHALATION RT-QID #120 03/29/18 Rx [Duoneb 0.5 mg-3 mg/3 ml Soln] ampul.neb Levofloxacin [Levaquin] 500 mg PO DAILY #5 tab 03/29/18 Rx Nystatin 100,000 Unit/gm Powd 1 applic TOPICAL BID #1 applic 03/29/18 Rx [Mycostatin Powder] predniSONE 10 mg PO DIRECTED #30 tab 03/29/18 Rx Allergies Allergy/AdvReac Type Severity Reaction Status Date / Time buspirone [From BuSpar] Allergy Unknown Verified 03/27/18 19:59 haloperidol [From Haldol] Allergy Swelling Verified 03/27/18 19:59 iodine Allergy Swelling Verified 03/27/18 19:59 Penicillins Allergy Swelling Verified 03/27/18 19:59 prochlorperazine Allergy Rash/Hives Verified 03/27/18 19:59 Sulfa (Sulfonamide Allergy Rash/Hives Verified 03/27/18 19:59 Antibiotics) Tetanus Vaccines and Toxoid Allergy Rash/Hives Verified 03/27/18 19:59 [Tetanus Vaccines & Toxoid] trifluoperazine HCl Allergy Unknown Verified 03/27/18 19:59 [From Stelazine] Physical Exam Osteopathic Statement: *. No significant issues noted on an osteopathic structural exam other than those noted in the History and Physical/Consult. Vitals: Vital Signs Temp Pulse Pulse Resp BP BP Pulse Ox 03/29/18 12:16 98 03/29/18 12:05 104 H 03/29/18 08:41 108 H 03/29/18 08:28 112 H 96 03/29/18 07:00 97.6 F 101 H 20 165/83 95 03/28/18 23:00 95 03/28/18 22:18 98.0 F 98 18 165/94 92 L 03/28/18 16:00 109 H 18 03/28/18 15:45 97 F L 109 H 18 136/63 97 03/28/18 15:27 94 03/28/18 15:18 96 Intake and Output 03/28/18 03/29/18 03/29/18 22:59 06:59 14:59 Other: # Voids 1 2 Weight 178.5 kg Exam is limited by body habitus. No acute distress, oriented 3. Not requiring any supplemental oxygen at this time. HEENT examination is grossly unremarkable. Mucous membranes are moist. No oral lesions. Neck supple. Full range of motion. No adenopathy thyromegaly or neck vein distention. Cardiovascular examination reveals regular rhythm rate. S1-S2 normal. No S3 or S4. No discernible murmur noted. Heart sounds are very distant. Lungs reveal mostly clear breath sounds. This a few scattered rhonchi. No distinct wheezes are appreciated. Slight prolongation on forced maneuver. Abdomen soft bowel sounds are heard. No masses or tenderness. Extremities are intact. No cyanosis or clubbing. Slight lower extremity edema is noted. Skin is without rash or lesion. Neurologic examination is brief but nonfocal. Results - Laboratory Findings CBC and BMP: 03/29/18 08:27 03/29/18 08:27 PT/INR, D-dimer PT 9.9 sec (9.0-12.0) 03/27/18 20:15 INR 1.0 (<1.2) 03/27/18 20:15 D-Dimer 0.94 mg/L FEU (<0.60) H 03/27/18 20:15 Abnormal lab findings: Abnormal Labs 03/27/18 03/27/18 03/27/18 20:15 20:15 20:15 RBC 3.76 L Hgb 9.9 L Hct 31.3 L MCHC Neutrophils # D-Dimer Chloride 109 H BUN 25 H Glucose 106 H POC Glucose (mg/dL) Total Bilirubin 0.1 L Total Creatine Kinase 28 L 03/27/18 03/28/18 03/28/18 20:15 11:58 17:20 RBC Hgb Hct MCHC Neutrophils # D-Dimer 0.94 H Chloride BUN Glucose POC Glucose (mg/dL) 140 H 186 H Total Bilirubin Total Creatine Kinase 03/28/18 03/29/18 03/29/18 21:15 08:11 08:27 RBC Hgb 10.0 L Hct 32.9 L MCHC 30.5 L Neutrophils # 8.4 H D-Dimer Chloride BUN Glucose POC Glucose (mg/dL) 157 H 123 H Total Bilirubin Total Creatine Kinase 03/29/18 03/29/18 08:27 11:55 RBC Hgb Hct MCHC Neutrophils # D-Dimer Chloride BUN 27 H Glucose 209 H POC Glucose (mg/dL) 69 L Total Bilirubin Total Creatine Kinase - Diagnostic Findings Chest x-ray: report reviewed (Labs and x-rays and medications are all reviewed.) , image reviewed Assessment and Plan Assessment: Assessment Mild COPD exacerbation Morbid obesity History of asthma/COPD History of diabetes mellitus History of GERD Hyperlipidemia by history Hypertension by history DJD History of pulmonary embolism History of pneumonia History of hypothyroidism Osteoporosis leg syndrome Rule out sleep apnea syndrome/pickwickian syndrome Plan: Plan dated 03/29/2018 We will make sure that the patient's on appropriate medications for a COPD exacerbation. This would include a short acting beta agonist, I short acting muscarinic antagonist, a long-acting beta agonist, inhaled corticosteroids. Also the patient be put on a small dose of systemic corticosteroids. Also, the patient could receive an oral antibiotic. Additional recommendations and suggestions are forthcoming. Labs x-rays a medications are all reviewed. Chest x-ray really shows no major abnormalities other than mild shift in the heart to the left. No preet infiltrates are seen. Additional recommendations and suggestions are forthcoming. Time with Patient: Greater than 30
--- NOTE | 2018-03-29 17:35 | DS ---
DISCHARGE SUMMARY FINAL DIAGNOSES: 1. Chronic obstructive pulmonary disease and bronchial asthma acute exacerbation with acute purulent tracheobronchitis with failure of outpatient treatment. 2. History of asthma/chronic obstructive pulmonary disease. 3. History of congestive heart failure. 4. Diabetes type 2. 5. Acute delirium. 6. Gastroesophageal reflux disease. 7. Hypertension. 8. Hyperlipidemia. 9. Degenerative joint disease. 10.History of pneumonia. 11.History of pulmonary embolus. 12.History hypothyroidism. 13.History of bariatric surgery. 14.History of anxiety, depression, bipolar, panic disorder, PTSD. 15.Borderline personality disorder. 16.Morbid obesity with BMI of 65.9. DISCHARGE DISPOSITION: Patient is being discharged in stable condition with guarded prognosis. HISTORY OF PRESENT ILLNESS: This 58 -year-old woman with past medical history of multiple medical problems, being followed by Dr. Umaña in the outpatient setting was admitted with COPD acute exacerbation and purulent tracheobronchitis, treated with steroids, antibiotics and bronchodilators. Patient improved significantly. Dr. Chacon saw the patient. Cleared the patient for discharge. The patient extremely keen on going home at this time. On exam, vital signs are stable. Cardiovascular: S1, S2. Abdomen soft. Central nervous system: No focal deficits. Outpatient psychiatric evaluation is recommended. DISCHARGE ADVICE AND MEDICATIONS: 1. Diet is cardiac diet. 2. Activity limited until followup. 3. Follow up with Dr. Umaña in 2-3 days. 4. Follow up with Dr. Chacon as advised. 5. Follow up with Psych as recommended. MEDICATIONS: 1. Ventolin 1-2 puffs q.6h p.r.n. 2. Lipitor 10 mg q.h.s. 3. Coreg 25 mg p.o. b.i.d. 4. Vitamin D3 10,000 daily. 5. Cymbalta 60 mg p.o. daily. 6. Fluticasone 1 puff daily. 7. Lasix 20 mg b.i.d. 8. Glycopyrrolate 1 puff daily. 9. Apresoline 50 mg p.o. q.i.d. 10.Hydroxyzine 25 mg p.o. t.i.d. 11.Motrin 800 mg p.o. t.i.d. 12.Synthroid 137 mcg p.o. daily. 13.Claritin 10 mg. 14.Myrbetriq 50 mg p.o. daily. 15.Remeron 15 mg q.h.s. 16.Multivitamins 1 p.o. daily. 17.Omeprazole 20 mg daily. 18.K-Dur 10 mEq p.o. b.i.d. 19.Seroquel 100 mg q.h.s. 20.Trazodone 200 mg q.h.s. 21.Tylenol p.r.n. 22.DuoNeb q.i.d. and p.r.n. 23.Levaquin 500 mg p.o. daily for 5 days. 24.Nystatin for local application. 25.Prednisone taper 30 mg daily for 3 days, 20 for 3 days, 10 for 3 days and then stop. 26.Xarelto 20 mg p.o. daily. Once again, the patient is being discharged in stable condition with guarded prognosis. MMODL / IJN: [id number] /
[2018-03-29 19:28] LABS: Hemoglobin A1C 5.5 % (4.0-6.0)
== END 2018-03-29 13:45 | disposition home or self-care (01) ==
LOC: EC 19:55 → INTOOBSV 03-28 00:07 → 4MS4W 03-28 00:07
PROVIDERS: ADMIT Hospitalist; ATTEND Hospitalist
DX: J44.1 Chronic obstructive pulmonary disease with (acute) exacerbation (principal); J20.9 Acute bronchitis, unspecified; J44.0 Chronic obstructive pulmonary disease with (acute) lower respiratory infection; I11.0 Hypertensive heart disease with heart failure; I50.9 Heart failure, unspecified; E11.9 Type 2 diabetes mellitus without complications; K21.9 Gastro-esophageal reflux disease without esophagitis; E78.5 Hyperlipidemia, unspecified; M19.90 Unspecified osteoarthritis, unspecified site; E03.9 Hypothyroidism, unspecified; R41.0 Disorientation, unspecified; F43.10 Post-traumatic stress disorder, unspecified; F41.0 Panic disorder [episodic paroxysmal anxiety]; F31.9 Bipolar disorder, unspecified; F41.9 Anxiety disorder, unspecified; F60.3 Borderline personality disorder; G89.29 Other chronic pain; M54.5 Low back pain; E66.01 Morbid (severe) obesity due to excess calories; G25.81 Restless legs syndrome; Z68.44 Body mass index [BMI] 60.0-69.9, adult; Z79.01 Long term (current) use of anticoagulants; Z79.1 Long term (current) use of non-steroidal anti-inflammatories (NSAID); Z79.890 Hormone replacement therapy; Z79.51 Long term (current) use of inhaled steroids; Z79.899 Other long term (current) drug therapy; Z88.0 Allergy status to penicillin; Z88.2 Allergy status to sulfonamides; Z88.7 Allergy status to serum and vaccine; Z88.8 Allergy status to other drugs, medicaments and biological substances; Z91.048 Other nonmedicinal substance allergy status; Z87.440 Personal history of urinary (tract) infections; Z98.84 Bariatric surgery status; Z86.711 Personal history of pulmonary embolism; Z87.01 Personal history of pneumonia (recurrent); Z96.651 Presence of right artificial knee joint; Z86.2 Personal history of diseases of the blood and blood-forming organs and certain disorders involving the immune mechanism; Z80.1 Family history of malignant neoplasm of trachea, bronchus and lung; Z82.49 Family history of ischemic heart disease and other diseases of the circulatory system; Z83.3 Family history of diabetes mellitus; Z83.2 Family history of diseases of the blood and blood-forming organs and certain disorders involving the immune mechanism; M81.0 Age-related osteoporosis without current pathological fracture
CPT/HCPCS: 99291 ×2; 96374 ×2; 96375 ×4; 96376; 96361 ×2; 96372; 36415; 94640 ×5; 94760 ×2; 93005; 85379; 83880; 80053; 80048; 82550; 82553; 83735; 84484; 85025 ×2; 85610; 85730; 83036; 71046; 71275; G0378 ×2; J2060; J1200; J2930 ×2; J3486; J7512; Q9967

== ENCOUNTER 2018-03-31 17:37 | Emergency (ER) | payer MEDICARE, OTHER ==
[2018-03-31 18:41] VITALS: BP 189/93; PULSE 89; RESP 18; TEMP 98.2
[2018-03-31] MEDS ORDERED: ACETAMINOPHEN TAB 325 MG TAB PO STA (19:52)
--- NOTE | 2018-03-31 20:15 | ED ---
Fall HPI - General Chief Complaint: Fall Stated Complaint: Hip Pain Time Seen by Provider: 03/31/18 19:46 Source: patient Mode of arrival: EMS - History of Present Illness Initial Comments: This is a 58 year old female on xarelto for PE in October 2017, with PMH of DM with peripheral neuropathy, HTN, HLD who presents today for CC of fall with left hip and low back pain. Pt states that around 4:15pm this afternoon she was walking with her walking in her apartment,when she removed hands from walker to close a door, when she turned to grab her walker again the wheel fell off and she lost balance falling onto her left side/hip. Pt immediately noticed left hip and low back pain. Pt states that she has had a previous fracture of the left hip and has hardware, this surgery was done by Dr. Momin in 2016. Pt admitted to LBP everyday however she felt it had increased after the fall. the left hip pain she felt following the fall she decreased as aching pain with no radiation 02/09. Pt did not take any medication for pain or ice injury. Pt denies chest pain, SOB, dizziness, palpitations prior to falling. Pt denies hitting her head, LOC, injury to any other extremity, abrasion/lacerations, decreased ROM of the left lower extremity, shortening of the left lower extremity, coolness or pallor, loss of sensation of the LE b/l, numbness, muscle weakness, loss of sensation, tingling, or paresthesias of the lower external ears bilaterally. Pt was able to weight bear and ambulate after the fall. Pt called EMS because she didnt have transportation. Pt arrived with [facility]. Patient denies any recent fever, chills, shortness of breath, chest pain, back pain, abdominal pain, nausea or vomiting, numbness or tingling, dysuria or hematuria, constipation or diarrhea, headaches or visual changes, or any other complaints. - Related Data Home Medications Medication Instructions Recorded Confirmed Mirabegron [Myrbetriq] 50 mg PO DAILY 05/23/17 03/31/18 Atorvastatin [Lipitor] 10 mg PO HS 06/07/17 03/31/18 Carvedilol [Coreg] 25 mg PO BID 06/07/17 03/31/18 Cholecalciferol [Vitamin D3] 10,000 unit PO DAILY 06/07/17 03/31/18 Loratadine [Claritin] 10 mg PO DAILY 06/07/17 03/31/18 Multivitamins, Thera [Multivitamin 1 tab PO DAILY 06/07/17 03/31/18 (formulary)] Omeprazole 20 mg PO DAILY 06/07/17 03/31/18 Levothyroxine Sodium [Synthroid] 137 mcg PO DAILY 10/20/17 03/31/18 hydrALAZINE HCL [Apresoline] 50 mg PO TID 10/20/17 03/31/18 Furosemide [Lasix] 20 mg PO BID 01/08/18 03/31/18 Albuterol Inhaler [Ventolin Hfa 1 - 2 puff INHALATION RT-QID PRN 02/09/18 Inhaler] Potassium Chloride ER [K-Dur 10] 10 meq PO BID 03/19/18 03/31/18 DULoxetine HCL [Cymbalta] 60 mg PO DAILY 03/31/18 03/31/18 Mirtazapine 30 mg PO HS 03/31/18 03/31/18 Pregabalin [Lyrica] 75 mg PO DAILY 03/31/18 03/31/18 QUEtiapine [SEROquel] 50 mg PO HS 03/31/18 03/31/18 rOPINIRole HCL 3 mg PO DAILY 03/31/18 03/31/18 rOPINIRole HCL 4 mg PO HS 03/31/18 03/31/18 Previous Rx's Medication Instructions Recorded Rivaroxaban [Xarelto] 20 mg PO DAILY 90 Days #90 tab 11/18/17 Acetaminophen Tab [Tylenol] 500 mg PO Q6HR PRN tab 03/29/18 Levofloxacin [Levaquin] 500 mg PO DAILY #5 tab 03/29/18 predniSONE 10 mg PO DIRECTED #30 tab 03/29/18 Allergies Allergy/AdvReac Type Severity Reaction Status Date / Time buspirone [From BuSpar] Allergy Unknown Verified 03/31/18 19:50 haloperidol [From Haldol] Allergy Swelling Verified 03/31/18 19:50 iodine Allergy Swelling Verified 03/31/18 19:50 Penicillins Allergy Swelling Verified 03/31/18 19:50 prochlorperazine Allergy Rash/Hives Verified 03/31/18 19:50 Sulfa (Sulfonamide Allergy Rash/Hives Verified 03/31/18 19:50 Antibiotics) Tetanus Vaccines and Toxoid Allergy Rash/Hives Verified 03/31/18 19:50 [Tetanus Vaccines & Toxoid] trifluoperazine HCl Allergy Unknown Verified 03/31/18 19:50 [From Stelazine] hydroxyzine [From Vistaril] AdvReac Rash/Hives Verified 03/31/18 19:50 Review of Systems ROS Statement: Those systems with pertinent positive or pertinent negative responses have been documented in the HPI. ROS Other: All systems not noted in ROS Statement are negative. Constitutional: Denies: fever, chills Eyes: Denies: eye pain ENT: Denies: ear pain, throat pain Respiratory: Denies: cough, dyspnea, wheezes, hemoptysis, stridor Cardiovascular: Denies: chest pain, palpitations, orthopnea, edema Endocrine: Denies: fatigue Gastrointestinal: Denies: abdominal pain, nausea, vomiting, diarrhea, constipation, hematemesis Genitourinary: Denies: urgency, dysuria, frequency, hematuria Musculoskeletal: Reports: as per HPI, back pain. Denies: joint swelling, arthralgia Skin: Denies: rash, lesions Neurological: Denies: headache, weakness, numbness, paresthesias, confusion, abnormal gait Past Medical History Past Medical History: Asthma, Heart Failure, COPD, Diabetes Mellitus, GERD/ Reflux, Hyperlipidemia, Hypertension, Musculoskeletal Disorder, Osteoarthritis ( OA), Pneumonia, Pulmonary Embolus (PE), Thyroid Disorder Additional Past Medical History / Comment(s): Recently diagnosed with asthma and recently treated for bronchitis with antibiotic, diet controlled diabetes, morbid obesity, hypothyroid, UTI, RLS, anemia, lumbar pain with herniated discs. dx with cellulitis left leg on 02/14/2018 pt put on abx for this History of Any Multi-Drug Resistant Organisms: None Reported Past Surgical History: Bariatric Surgery, Hernia Repair, Orthopedic Surgery Additional Past Surgical History / Comment(s): Total Right knee replacement, 3 abdominal hernia repairs, left hip repair Past Anesthesia/Blood Transfusion Reactions: No Reported Reaction Past Psychological History: Anxiety, Bipolar, Depression, Panic Disorder, PTSD Smoking Status: Never smoker Past Alcohol Use History: Occasional Past Drug Use History: None Reported - Past Family History Mother Family Medical History: Cancer Additional Family Medical History / Comment(s): lung cancer Father Family Medical History: Diabetes Mellitus Additional Family Medical History / Comment(s): "my dad from a blood clot that traveled from his leg to his lung and also caused a heart attack." Brother(s) Family Medical History: Diabetes Mellitus Sister(s) Additional Family Medical History / Comment(s): "her heart races too fast" General Exam - General Exam Comments Initial Comments: General: The patient is awake and alert, in no distress, and does not appear acutely ill. Eye: Pupils are equal, round and reactive to light, extra-ocular movements are intact. No nystagmus. There is normal conjunctiva bilaterally. No signs of icterus. Ears, nose, mouth and throat: There are moist mucous membranes and no oral lesions. Neck: The neck is supple, there is no tenderness or JVD. Cardiovascular: There is a regular rate and rhythm. No murmur, rub or gallop is appreciated. Respiratory: Lungs are clear to auscultation, respirations are non-labored, breath sounds are equal. No wheezes, stridor, rales, or rhonchi. Musculoskeletal: No erythema, swelling or ecchymosis of the overlying skin of the left hip. No noted internal or external rotation or shortening of the legs b /l. Pt is able to fully actively and passivey range at the hips b/l. Pt admits to increased pain with internal and external rotation of the left hip. Pt admits to mild tenderness to palpation over the left lateral hip. Strength 5/ 5 if the hips, knees and ankle b/l. Pt able to ambulate without gait abnormalities fully bearing weight. Sensation intact and equal of the LE b/l with no saddle parathesias. Pulses equal bilaterally 2+ DP and radial pulses. + 2 DTR b/l of the lower extremities. Pt able to forward flex, extend, rotation and lateral flex at the lumbar spine however it is limited due to obesity. Pt complains of pain with flexion and extension, denies midline vertebral tenderness of the lumbar spine. (+) paravertebral spine tenderness. Neurological: A&O x 3. CN II-XII intact, There are no obvious motor or sensory deficits. Coordination appears grossly intact. Speech is normal. Skin: Skin is warm and dry and no rashes or lesions are noted. Psychiatric: Cooperative, appropriate mood & affect, normal judgment. Limitations: no limitations Course Vital Signs 03/31/18 18:39 Temperature 98.2 F Pulse Rate 89 Respiratory 18 Rate Blood Pressure 189/93 O2 Sat by Pulse 98 Oximetry Medical Decision Making - Medical Decision Making 58yo with CC of fall onto left hip, complaining of low back and left hip pain concerning for possible fracture. pt denies any injury to head or other extremities. XR left hip and lumbar spine obtained returned (-) for acute process. Pt was ambulating to bathroom and weight bearing without difficulty. MSK exam revealed paravertebra tenderness of the lumbar spine and pain with palpation over the lateral aspect of left hip and left hip ROM, and otherwise unremarkable. She was given tylenol for pain. Neurovascular exam was intact. Case discussed with Dr. Lane. At this time we feel that the left hip pain if most likely muscular in nature due to fall and negative imaging, however there could be an occult fx. Pt may take OTC medications for pain as needed and f.u with PCP in 1-2 days. Pt was instructed to f/u with orthopedics in 1 week if symptoms persist for repeat XR. pt agreed d/c in stable condition. Disposition Clinical Impression: Left hip pain, Low back pain Disposition: HOME SELF-CARE Condition: Good Instructions: Fall Prevention for Older Adults (ED), Hip Pain (ED) Additional Instructions: Please use over the counter pain medication as discussed. Please follow-up with family doctor in the next 2 days. Please follow-up with orthopedics if symptoms persist longer than 1 week. Please return to emergency room if the symptoms increase or worsen or for any other concerns. Is patient prescribed a controlled substance at d/c from ED?: No Referrals: Libra Umaña MD [Primary Care Provider] - 1-2 days Yassine Little MD [STAFF PHYSICIAN] - 1-2 days Time of Disposition: 21:11
--- NOTE | 2018-03-31 20:49 | XR ---
PROCEDURE: XR Hip Complete LT, 2 views DATE AND TIME: 03/31/2018 8:21 PM REFERRING PHYSICIAN: Thalia Covington CLINICAL INDICATION: PHH, Pain TECHNIQUE: Department protocol. COMPARISON: 02/09/2018 radiographs FINDINGS: The orthopedic hardware is intact. There is no fracture or malalignment. The soft tissues a re unremarkable. IMPRESSION: NO ACUTE PROCESS.
--- NOTE | 2018-03-31 20:50 | XR ---
PROCEDURE: XR lumbar spine, 3V DATE AND TIME: 03/31/2018 8:21 PM REFERRING PHYSICIAN: Thalia Covington CLINICAL INDICATION: Pain after fall TECHNIQUE: Coned AP and 2 coned lateral views COMPARISON: None FINDINGS: There is no fracture or malalignment. The soft tissues are unremarkable. There are multilev el advanced degenerative disc and degenerative facet change, affecting all levels. IMPRESSION: NO ACUTE PROCESS.
== END 2018-03-31 21:33 | disposition home or self-care (01) ==
LOC: EC 17:37
DX: M25.552 Pain in left hip (principal); M54.5 Low back pain; J44.9 Chronic obstructive pulmonary disease, unspecified; K21.9 Gastro-esophageal reflux disease without esophagitis; E78.5 Hyperlipidemia, unspecified; G25.81 Restless legs syndrome; I11.0 Hypertensive heart disease with heart failure; I50.9 Heart failure, unspecified; M19.90 Unspecified osteoarthritis, unspecified site; E03.9 Hypothyroidism, unspecified; E66.01 Morbid (severe) obesity due to excess calories; F31.9 Bipolar disorder, unspecified; F41.9 Anxiety disorder, unspecified; F43.10 Post-traumatic stress disorder, unspecified; Z86.711 Personal history of pulmonary embolism; Z68.44 Body mass index [BMI] 60.0-69.9, adult; Z98.84 Bariatric surgery status; Z96.651 Presence of right artificial knee joint; Z98.890 Other specified postprocedural states; Z87.828 Personal history of other (healed) physical injury and trauma; Z79.899 Other long term (current) drug therapy; Z88.0 Allergy status to penicillin; Z88.2 Allergy status to sulfonamides; Z88.7 Allergy status to serum and vaccine; Z88.8 Allergy status to other drugs, medicaments and biological substances; Z91.048 Other nonmedicinal substance allergy status; W18.39XA Other fall on same level, initial encounter; Y92.009 Unspecified place in unspecified non-institutional (private) residence as the place of occurrence of the external cause
CPT/HCPCS: 72100; 73502; 99283

== ENCOUNTER 2018-04-05 20:28 | Emergency (ER) | payer MEDICARE, OTHER ==
[2018-04-05 21:38] LABS: Basophils % (A) 0 %; Eosinophils % (A) 0 %; HCT 31.6 % (34.0-46.0); HGB 9.6 gm/dL (11.4-16.0); Hypochromasia Slight; Lymphocytes # (A) 1.6 k/uL (1.0-4.8); Lymphocytes % (A) 17 %; MCH 25.1 pg (25.0-35.0); MCHC 30.4 g/dL (31.0-37.0); MCV 82.8 fL (80.0-100.0); Mean Platelet Volume 7.5; Monocytes # (A) 0.5 k/uL (0-1.0); Monocytes % (A) 6 %; Neutrophils # (A) 6.8 k/uL (1.3-7.7); Neutrophils % (A) 73 %; Platelet Count 320 k/uL (150-450); RBC 3.81 m/uL (3.80-5.40); RDW 15.2 % (11.5-15.5); WBC 9.4 k/uL (3.8-10.6)
[2018-04-05 21:46] LABS: ALT 30 U/L (9-52); AST 25 U/L (14-36); Albumin 3.7 g/dL (3.5-5.0); Alkaline Phosphatase 75 U/L (38-126); Anion Gap 6 mmol/L; Blood Urea Nitrogen 28 mg/dL (7-17); Calcium 8.8 mg/dL (8.4-10.2); Carbon Dioxide 26 mmol/L (22-30); Chloride 109 mmol/L (98-107); Glucose 108 mg/dL (74-99); Potassium 4.6 mmol/L (3.5-5.1); Sodium 141 mmol/L (137-145); Total Bilirubin <0.1 mg/dL (0.2-1.3)
--- NOTE | 2018-04-05 21:50 | XR ---
EXAMINATION TYPE: XR chest 1V portable DATE OF EXAM: 04/05/2018 COMPARISON: 03/27/2018 INDICATION: Dyspnea TECHNIQUE: Single frontal view of the chest is obtained. FINDINGS: The heart size is prominent. The pulmonary vasculature is prominent. Mild basilar infiltrate may be present IMPRESSION: 1. Mild bibasilar infiltrates greater in the retrocardiac region. 2. Mild cardiomegaly
[2018-04-05 21:57] LABS: Creatine Kinase 24 U/L (30-135)
[2018-04-05 21:58] LABS: D-Dimer 0.52 mg/L FEU (<0.60); Partial Thromboplastin Time 22.8 sec (22.0-30.0); Prothrombin Time 9.5 sec (9.0-12.0)
--- NOTE | 2018-04-05 22:01 | ED ---
SOB HPI - General Chief Complaint: Shortness of Breath Stated Complaint: SOB Time Seen by Provider: 04/05/18 20:58 Source: EMS Mode of arrival: EMS Limitations: no limitations - History of Present Illness Initial Comments: This patient is a 58-year-old woman who presents with complaints she is feeling short of breath. Symptoms started a few hours ago. She reports that she had exerted herself more than usual. She states that she had been in [place] and ended up doing a lot of walking around [employer] [place]. The patient denies fever or chills. She is not having chest pain. No productive cough. No change in urination or bowel movements. No change in her chronic leg swelling. MD Complaint: shortness of breath Onset/Timin -: hour(s) Severity: moderate Consistency: constant Improves With: nothing Worsens With: exertion Associated Symptoms: denies other symptoms Treatments Prior to Arrival: none - Related Data Home Medications Medication Instructions Recorded Confirmed Mirabegron [Myrbetriq] 50 mg PO DAILY 05/23/17 04/05/18 Atorvastatin [Lipitor] 10 mg PO HS 06/07/17 04/05/18 Carvedilol [Coreg] 25 mg PO BID 06/07/17 04/05/18 Cholecalciferol [Vitamin D3] 10,000 unit PO DAILY 06/07/17 04/05/18 Loratadine [Claritin] 10 mg PO DAILY 06/07/17 04/05/18 Multivitamins, Thera [Multivitamin 1 tab PO DAILY 06/07/17 04/05/18 (formulary)] Omeprazole 20 mg PO DAILY 06/07/17 04/05/18 Levothyroxine Sodium [Synthroid] 137 mcg PO DAILY 10/20/17 04/05/18 hydrALAZINE HCL [Apresoline] 50 mg PO TID 10/20/17 04/05/18 Furosemide [Lasix] 20 mg PO BID 01/08/18 04/05/18 Albuterol Inhaler [Ventolin Hfa 1 - 2 puff INHALATION RT-QID PRN 02/09/18 Inhaler] Potassium Chloride ER [K-Dur 10] 10 meq PO BID 03/19/18 04/05/18 DULoxetine HCL [Cymbalta] 60 mg PO DAILY 03/31/18 04/05/18 Mirtazapine 30 mg PO HS 03/31/18 04/05/18 Pregabalin [Lyrica] 75 mg PO DAILY 03/31/18 04/05/18 QUEtiapine [SEROquel] 50 mg PO HS 03/31/18 04/05/18 rOPINIRole HCL 3 mg PO DAILY 03/31/18 04/05/18 rOPINIRole HCL 4 mg PO HS 03/31/18 04/05/18 Previous Rx's Medication Instructions Recorded Rivaroxaban [Xarelto] 20 mg PO DAILY 90 Days #90 tab 11/18/17 Acetaminophen Tab [Tylenol] 500 mg PO Q6HR PRN tab 03/29/18 Levofloxacin [Levaquin] 500 mg PO DAILY #5 tab 03/29/18 predniSONE 10 mg PO DIRECTED #30 tab 03/29/18 Azithromycin [Zithromax Z-pack] 250 mg PO DIRECTED #6 tab 04/05/18 Allergies Allergy/AdvReac Type Severity Reaction Status Date / Time buspirone [From BuSpar] Allergy Unknown Verified 03/31/18 19:50 haloperidol [From Haldol] Allergy Swelling Verified 03/31/18 19:50 iodine Allergy Swelling Verified 03/31/18 19:50 Penicillins Allergy Swelling Verified 03/31/18 19:50 prochlorperazine Allergy Rash/Hives Verified 03/31/18 19:50 Sulfa (Sulfonamide Allergy Rash/Hives Verified 03/31/18 19:50 Antibiotics) Tetanus Vaccines and Toxoid Allergy Rash/Hives Verified 03/31/18 19:50 [Tetanus Vaccines & Toxoid] trifluoperazine HCl Allergy Unknown Verified 03/31/18 19:50 [From Stelazine] hydroxyzine [From Vistaril] AdvReac Rash/Hives Verified 03/31/18 19:50 Review of Systems ROS Statement: Those systems with pertinent positive or pertinent negative responses have been documented in the HPI. ROS Other: All systems not noted in ROS Statement are negative. Constitutional: Denies: fever, chills Respiratory: Reports: dyspnea. Denies: cough, wheezes, hemoptysis Cardiovascular: Reports: dyspnea on exertion. Denies: chest pain, palpitations , orthopnea, edema, syncope Gastrointestinal: Denies: abdominal pain, vomiting, diarrhea, melena, hematochezia Genitourinary: Denies: dysuria Musculoskeletal: Denies: back pain Skin: Denies: rash Neurological: Denies: headache, weakness, numbness Psychiatric: Reports: anxiety Past Medical History Past Medical History: Asthma, Heart Failure, COPD, Diabetes Mellitus, GERD/ Reflux, Hyperlipidemia, Hypertension, Musculoskeletal Disorder, Osteoarthritis ( OA), Pneumonia, Pulmonary Embolus (PE), Thyroid Disorder Additional Past Medical History / Comment(s): Recently diagnosed with asthma and recently treated for bronchitis with antibiotic, diet controlled diabetes, morbid obesity, hypothyroid, UTI, RLS, anemia, lumbar pain with herniated discs. dx with cellulitis left leg on 02/14/2018 pt put on abx for this History of Any Multi-Drug Resistant Organisms: None Reported Past Surgical History: Bariatric Surgery, Hernia Repair, Orthopedic Surgery Additional Past Surgical History / Comment(s): Total Right knee replacement, 3 abdominal hernia repairs, left hip repair Past Anesthesia/Blood Transfusion Reactions: No Reported Reaction Past Psychological History: Anxiety, Bipolar, Depression, Panic Disorder, PTSD Smoking Status: Never smoker Past Alcohol Use History: Occasional Past Drug Use History: None Reported - Past Family History Mother Family Medical History: Cancer Additional Family Medical History / Comment(s): lung cancer Father Family Medical History: Diabetes Mellitus Additional Family Medical History / Comment(s): "my dad from a blood clot that traveled from his leg to his lung and also caused a heart attack." Brother(s) Family Medical History: Diabetes Mellitus Sister(s) Additional Family Medical History / Comment(s): "her heart races too fast" General Exam Limitations: no limitations General appearance: alert, in no apparent distress, obese Head exam: Present: atraumatic, normocephalic Eye exam: Present: normal appearance. Absent: scleral icterus, conjunctival injection ENT exam: Present: normal oropharynx Respiratory exam: Absent: respiratory distress, wheezes, rales, rhonchi, stridor , accessory muscle use, decreased breath sounds, prolonged expiratory Cardiovascular Exam: Present: regular rate, normal rhythm, systolic murmur ( Grade 2/6 systolic ejection murmur). Absent: diastolic murmur, rubs, gallop GI/Abdominal exam: Present: soft, other (Exam limited by obesity). Absent: distended, tenderness, guarding, rebound Extremities exam: Present: normal inspection, normal capillary refill. Absent: pedal edema, calf tenderness Back exam: Present: normal inspection Neurological exam: Present: alert Skin exam: Present: warm, dry, intact, normal color. Absent: rash Course Vital Signs 04/05/18 04/05/18 04/05/18 20:44 21:59 23:00 Temperature 98.9 F Pulse Rate 101 H 97 88 Respiratory 20 22 20 Rate Blood Pressure 158/65 161/65 146/56 O2 Sat by Pulse 97 99 99 Oximetry 04/05/18 04/05/18 23:01 23:09 Temperature Pulse Rate 92 90 Respiratory Rate Blood Pressure O2 Sat by Pulse Oximetry Medical Decision Making - Lab Data Result diagrams: 04/05/18 21:20 04/05/18 21:20 Lab Results 04/05/18 04/05/18 04/05/18 Range/Units 21:20 21:20 21:20 WBC 9.4 (3.8-10.6) k/uL RBC 3.81 (3.80-5.40) m/uL Hgb 9.6 L (11.4-16.0) gm/dL Hct 31.6 L (34.0-46.0) % MCV 82.8 (80.0-100.0) fL MCH 25.1 (25.0-35.0) pg MCHC 30.4 L (31.0-37.0) g/dL RDW 15.2 (11.5-15.5) % Plt Count 320 (150-450) k/uL Neutrophils % 73 % Lymphocytes % 17 % Monocytes % 6 % Eosinophils % 0 % Basophils % 0 % Neutrophils # 6.8 (1.3-7.7) k/uL Lymphocytes # 1.6 (1.0-4.8) k/uL Monocytes # 0.5 (0-1.0) k/uL Eosinophils # 0.0 (0-0.7) k/uL Basophils # 0.0 (0-0.2) k/uL Hypochromasia Slight PT (9.0-12.0) sec INR (<1.2) APTT (22.0-30.0) sec D-Dimer (<0.60) mg/L FEU Sodium 141 (137-145) mmol/L Potassium 4.6 (3.5-5.1) mmol/L Chloride 109 H (98-107) mmol/L Carbon Dioxide 26 (22-30) mmol/L Anion Gap 6 mmol/L BUN 28 H (7-17) mg/dL Creatinine 0.80 (0.52-1.04) mg/dL Est GFR (CKD-EPI)AfAm >90 (>60 ml/min/1.73 sqM) Est GFR (CKD-EPI)NonAf 82 (>60 ml/min/1.73 sqM) Glucose 108 H (74-99) mg/dL Calcium 8.8 (8.4-10.2) mg/dL Magnesium 2.0 (1.6-2.3) mg/dL Total Bilirubin <0.1 L (0.2-1.3) mg/dL AST 25 (14-36) U/L ALT 30 (9-52) U/L Alkaline Phosphatase 75 (38-126) U/L Total Creatine Kinase 24 L (30-135) U/L CK-MB (CK-2) 0.6 (0.0-2.4) ng/mL CK-MB (CK-2) Rel Index 2.5 Troponin I <0.012 (0.000-0.034) ng/mL NT-Pro-B Natriuret Pep pg/mL Total Protein 6.0 L (6.3-8.2) g/dL Albumin 3.7 (3.5-5.0) g/dL 04/05/18 04/05/18 Range/Units 21:20 21:20 WBC (3.8-10.6) k/uL RBC (3.80-5.40) m/uL Hgb (11.4-16.0) gm/dL Hct (34.0-46.0) % MCV (80.0-100.0) fL MCH (25.0-35.0) pg MCHC (31.0-37.0) g/dL RDW (11.5-15.5) % Plt Count (150-450) k/uL Neutrophils % % Lymphocytes % % Monocytes % % Eosinophils % % Basophils % % Neutrophils # (1.3-7.7) k/uL Lymphocytes # (1.0-4.8) k/uL Monocytes # (0-1.0) k/uL Eosinophils # (0-0.7) k/uL Basophils # (0-0.2) k/uL Hypochromasia PT 9.5 (9.0-12.0) sec INR 1.0 (<1.2) APTT 22.8 (22.0-30.0) sec D-Dimer 0.52 (<0.60) mg/L FEU Sodium (137-145) mmol/L Potassium (3.5-5.1) mmol/L Chloride (98-107) mmol/L Carbon Dioxide (22-30) mmol/L Anion Gap mmol/L BUN (7-17) mg/dL Creatinine (0.52-1.04) mg/dL Est GFR (CKD-EPI)AfAm (>60 ml/min/1.73 sqM) Est GFR (CKD-EPI)NonAf (>60 ml/min/1.73 sqM) Glucose (74-99) mg/dL Calcium (8.4-10.2) mg/dL Magnesium (1.6-2.3) mg/dL Total Bilirubin (0.2-1.3) mg/dL AST (14-36) U/L ALT (9-52) U/L Alkaline Phosphatase (38-126) U/L Total Creatine Kinase (30-135) U/L CK-MB (CK-2) (0.0-2.4) ng/mL CK-MB (CK-2) Rel Index Troponin I (0.000-0.034) ng/mL NT-Pro-B Natriuret Pep 182 pg/mL Total Protein (6.3-8.2) g/dL Albumin (3.5-5.0) g/dL - EKG Data -: EKG Interpreted by Mn EKG shows normal: sinus rhythm, axis (Normal), intervals (Normal), QRS complexes (Normal) Rate: normal (Rate 96 bpm) Interpretation: nonspecific ST-T wave changes Disposition Clinical Impression: Acute bronchitis Disposition: HOME SELF-CARE Condition: Good Instructions: Acute Bronchitis (ED) Prescriptions: Azithromycin [Zithromax Z-pack] 250 mg PO DIRECTED #6 tab Is patient prescribed a controlled substance at d/c from ED?: No Referrals: Libra Umaña MD [Primary Care Provider] - 1-2 days
[2018-04-05 22:11] LABS: Creatine Kinase MB 0.6 ng/mL (0.0-2.4); Troponin I <0.012 ng/mL (0.000-0.034)
[2018-04-05] MEDS ORDERED: ALBUTEROL NEBULIZED 2.5 MG/3 ML INHALATION STA (22:39)
[2018-04-05] MEDS ORDERED: AZITHROMYCIN 500 MG TAB PO STA (22:39)
[2018-04-05 23:53] VITALS: RESP 20
[2018-04-06 00:04] VITALS: BP 142/56; PULSE 89; TEMP 98.1
== END 2018-04-06 00:02 | disposition home or self-care (01) ==
LOC: EC 20:28
DX: J44.0 Chronic obstructive pulmonary disease with (acute) lower respiratory infection (principal); I11.0 Hypertensive heart disease with heart failure; I50.9 Heart failure, unspecified; K21.9 Gastro-esophageal reflux disease without esophagitis; E78.5 Hyperlipidemia, unspecified; E66.01 Morbid (severe) obesity due to excess calories; Z68.44 Body mass index [BMI] 60.0-69.9, adult; E03.9 Hypothyroidism, unspecified; G25.81 Restless legs syndrome; F41.9 Anxiety disorder, unspecified; F32.9 Major depressive disorder, single episode, unspecified; F43.10 Post-traumatic stress disorder, unspecified; Z96.651 Presence of right artificial knee joint; Z79.899 Other long term (current) drug therapy; Z88.8 Allergy status to other drugs, medicaments and biological substances; Z91.048 Other nonmedicinal substance allergy status; Z88.0 Allergy status to penicillin; Z88.2 Allergy status to sulfonamides; Z88.7 Allergy status to serum and vaccine
CPT/HCPCS: 36415; 71045; 80053; 82550; 82553; 83735; 83880; 84484; 85025; 85379; 85610; 85730; 87040; 93005; 94640; 99285

== ENCOUNTER 2018-04-15 16:18 | Observation (INO) | payer MEDICARE, OTHER ==
[2018-04-15] MEDS ORDERED: IPRATROPIUM-ALBUTEROL 3 ML NEB INHALATION STA ×3 (16:30→20:13)
[2018-04-15 17:19] LABS: Basophils % (A) 0 %; Eosinophils # (A) 0.1 k/uL (0-0.7); Eosinophils % (A) 1 %; HCT 32.1 % (34.0-46.0); HGB 10.1 gm/dL (11.4-16.0); Hypochromasia Slight; Lymphocytes # (A) 1.4 k/uL (1.0-4.8); Lymphocytes % (A) 17 %; MCH 25.6 pg (25.0-35.0); MCHC 31.3 g/dL (31.0-37.0); MCV 81.6 fL (80.0-100.0); Mean Platelet Volume 7.5; Monocytes # (A) 0.4 k/uL (0-1.0); Monocytes % (A) 5 %; Neutrophils # (A) 5.9 k/uL (1.3-7.7); Neutrophils % (A) 74 %; Platelet Count 315 k/uL (150-450); RBC 3.93 m/uL (3.80-5.40)
[2018-04-15 17:33] LABS: ALT 38 U/L (9-52); AST 30 U/L (14-36); Alkaline Phosphatase 86 U/L (38-126); Anion Gap 9 mmol/L; Blood Urea Nitrogen 33 mg/dL (7-17); Calcium 9.3 mg/dL (8.4-10.2); Carbon Dioxide 26 mmol/L (22-30); Chloride 103 mmol/L (98-107); Glucose 87 mg/dL (74-99); Magnesium 1.8 mg/dL (1.6-2.3); Potassium 4.1 mmol/L (3.5-5.1); Sodium 138 mmol/L (137-145); Total Bilirubin 0.2 mg/dL (0.2-1.3); Total Protein 6.6 g/dL (6.3-8.2)
[2018-04-15 17:34] LABS: INR 0.9 (<1.2); Partial Thromboplastin Time 22.5 sec (22.0-30.0); Prothrombin Time 9.3 sec (9.0-12.0)
[2018-04-15 17:40] LABS: Creatine Kinase 33 U/L (30-135)
[2018-04-15 17:52] LABS: Creatine Kinase MB 0.6 ng/mL (0.0-2.4); Troponin I <0.012 ng/mL (0.000-0.034)
[2018-04-15] MEDS ORDERED: OXYMETAZOLINE 0.05% NASL SPRAY 1 SPRAY BOTTLE NASAL STA (18:27)
--- NOTE | 2018-04-15 18:47 | ED ---
SOB HPI - General Chief Complaint: Shortness of Breath Stated Complaint: SOB Time Seen by Provider: 04/15/18 16:18 Source: patient, EMS, RN notes reviewed, old records reviewed Mode of arrival: EMS Limitations: no limitations - History of Present Illness Initial Comments: This is a 58-year-old female who was brought in by EMS with complaints of shortness of breath. She also complained of increased edema to her lower extremities increase tightness of her clothing she states she was started on 60 mg of Lasix this past week and is not helping she states she states that shortness breath started last night. She denies any overt fevers chills or sweats he does state that her feet hurt. She denies any smoking but states her parents smoking a lot of cigarettes and she was going up. MD Complaint: shortness of breath - Related Data Home Medications Medication Instructions Recorded Confirmed Mirabegron [Myrbetriq] 50 mg PO DAILY 05/23/17 04/15/18 Atorvastatin [Lipitor] 10 mg PO HS 06/07/17 04/15/18 Carvedilol [Coreg] 25 mg PO BID 06/07/17 04/15/18 Cholecalciferol [Vitamin D3] 10,000 unit PO DAILY 06/07/17 04/15/18 Loratadine [Claritin] 10 mg PO DAILY 06/07/17 04/15/18 Multivitamins, Thera [Multivitamin 1 tab PO DAILY 06/07/17 04/15/18 (formulary)] Omeprazole 20 mg PO DAILY 06/07/17 04/15/18 Levothyroxine Sodium [Synthroid] 137 mcg PO DAILY 10/20/17 04/15/18 hydrALAZINE HCL [Apresoline] 50 mg PO TID 10/20/17 04/15/18 Furosemide [Lasix] 20 mg PO BID 01/08/18 04/15/18 Albuterol Inhaler [Ventolin Hfa 1 - 2 puff INHALATION RT-QID PRN 02/09/18 Inhaler] Potassium Chloride ER [K-Dur 10] 10 meq PO BID 03/19/18 04/15/18 DULoxetine HCL [Cymbalta] 60 mg PO DAILY 03/31/18 04/15/18 Mirtazapine 30 mg PO HS 03/31/18 04/15/18 Pregabalin [Lyrica] 75 mg PO DAILY 03/31/18 04/15/18 QUEtiapine [SEROquel] 50 mg PO HS 03/31/18 04/15/18 rOPINIRole HCL 3 mg PO DAILY 03/31/18 04/15/18 rOPINIRole HCL 4 mg PO HS 03/31/18 04/15/18 Previous Rx's Medication Instructions Recorded Rivaroxaban [Xarelto] 20 mg PO DAILY 90 Days #90 tab 11/18/17 Acetaminophen Tab [Tylenol] 500 mg PO Q6HR PRN tab 03/29/18 Levofloxacin [Levaquin] 500 mg PO DAILY #5 tab 03/29/18 predniSONE 10 mg PO DIRECTED #30 tab 03/29/18 Allergies Allergy/AdvReac Type Severity Reaction Status Date / Time buspirone [From BuSpar] Allergy Unknown Verified 04/15/18 16:30 haloperidol [From Haldol] Allergy Swelling Verified 04/15/18 16:30 iodine Allergy Swelling Verified 04/15/18 16:30 Penicillins Allergy Swelling Verified 04/15/18 16:30 prochlorperazine Allergy Rash/Hives Verified 04/15/18 16:30 Sulfa (Sulfonamide Allergy Rash/Hives Verified 04/15/18 16:30 Antibiotics) Tetanus Vaccines and Toxoid Allergy Rash/Hives Verified 04/15/18 16:30 [Tetanus Vaccines & Toxoid] trifluoperazine HCl Allergy Unknown Verified 04/15/18 16:30 [From Stelazine] hydroxyzine [From Vistaril] AdvReac Rash/Hives Verified 04/15/18 16:30 Review of Systems ROS Statement: Those systems with pertinent positive or pertinent negative responses have been documented in the HPI. ROS Other: All systems not noted in ROS Statement are negative. Past Medical History Past Medical History: Asthma, Heart Failure, COPD, Diabetes Mellitus, GERD/ Reflux, Hyperlipidemia, Hypertension, Musculoskeletal Disorder, Osteoarthritis ( OA), Pneumonia, Pulmonary Embolus (PE), Thyroid Disorder Additional Past Medical History / Comment(s): Recently diagnosed with asthma and recently treated for bronchitis with antibiotic, diet controlled diabetes, morbid obesity, hypothyroid, UTI, RLS, anemia, lumbar pain with herniated discs. dx with cellulitis left leg on 02/14/2018 pt put on abx for this History of Any Multi-Drug Resistant Organisms: None Reported Past Surgical History: Bariatric Surgery, Hernia Repair, Orthopedic Surgery Additional Past Surgical History / Comment(s): Total Right knee replacement, 3 abdominal hernia repairs, left hip repair Past Anesthesia/Blood Transfusion Reactions: No Reported Reaction Past Psychological History: Anxiety, Bipolar, Depression, Panic Disorder, PTSD Smoking Status: Never smoker Past Alcohol Use History: Occasional Past Drug Use History: None Reported - Past Family History Mother Family Medical History: Cancer Additional Family Medical History / Comment(s): lung cancer Father Family Medical History: Diabetes Mellitus Additional Family Medical History / Comment(s): "my dad from a blood clot that traveled from his leg to his lung and also caused a heart attack." Brother(s) Family Medical History: Diabetes Mellitus Sister(s) Additional Family Medical History / Comment(s): "her heart races too fast" General Exam - General Exam Comments Initial Comments: This is a well-developed well-nourished awake alert oriented x3 female Limitations: no limitations General appearance: alert, anxious, in distress Head exam: Present: atraumatic, normocephalic, normal inspection Eye exam: Present: normal appearance, PERRL, EOMI. Absent: scleral icterus, conjunctival injection, periorbital swelling ENT exam: Present: normal exam, mucous membranes moist Neck exam: Present: normal inspection. Absent: tenderness, meningismus, lymphadenopathy Respiratory exam: Present: decreased breath sounds. Absent: respiratory distress, wheezes, rales, rhonchi, stridor Cardiovascular Exam: Present: regular rate, normal rhythm, normal heart sounds. Absent: systolic murmur, diastolic murmur, rubs, gallop, clicks GI/Abdominal exam: Present: soft, normal bowel sounds, other (Obese abdomen). Absent: distended, tenderness, guarding, rebound, rigid Extremities exam: Present: normal inspection, full ROM, normal capillary refill , pedal edema. Absent: tenderness, joint swelling, calf tenderness Back exam: Present: normal inspection Neurological exam: Present: alert, oriented X3, CN II-XII intact Psychiatric exam: Present: normal affect, anxious Skin exam: Present: warm, dry, intact, normal color. Absent: rash Course Vital Signs 04/15/18 04/15/18 04/15/18 16:25 16:51 16:55 Temperature 99.1 F Pulse Rate 92 92 Respiratory 22 24 Rate Blood Pressure 141/63 O2 Sat by Pulse 98 Oximetry 04/15/18 04/15/18 04/15/18 17:02 18:29 18:55 Temperature Pulse Rate 96 92 96 Respiratory 20 Rate Blood Pressure 139/64 O2 Sat by Pulse 98 Oximetry 04/15/18 19:12 Temperature Pulse Rate 96 Respiratory Rate Blood Pressure O2 Sat by Pulse Oximetry Medical Decision Making - Medical Decision Making Patient continues had shortness of breath and she continues to complain some pain in her feet. I did discuss the case with Dr. Broussard who did come to the emergency department see the patient patient will be admitted with inpatient treatment for COPD exacerbation and peripheral edema. - Lab Data Result diagrams: 04/15/18 16:50 04/15/18 16:50 Lab Results 04/15/18 04/15/18 04/15/18 Range/Units 16:50 16:50 16:50 WBC 8.0 (3.8-10.6) k/uL RBC 3.93 (3.80-5.40) m/uL Hgb 10.1 L (11.4-16.0) gm/dL Hct 32.1 L (34.0-46.0) % MCV 81.6 (80.0-100.0) fL MCH 25.6 (25.0-35.0) pg MCHC 31.3 (31.0-37.0) g/dL RDW 15.0 (11.5-15.5) % Plt Count 315 (150-450) k/uL Neutrophils % 74 % Lymphocytes % 17 % Monocytes % 5 % Eosinophils % 1 % Basophils % 0 % Neutrophils # 5.9 (1.3-7.7) k/uL Lymphocytes # 1.4 (1.0-4.8) k/uL Monocytes # 0.4 (0-1.0) k/uL Eosinophils # 0.1 (0-0.7) k/uL Basophils # 0.0 (0-0.2) k/uL Hypochromasia Slight PT (9.0-12.0) sec INR (<1.2) APTT (22.0-30.0) sec Sodium 138 (137-145) mmol/L Potassium 4.1 (3.5-5.1) mmol/L Chloride 103 (98-107) mmol/L Carbon Dioxide 26 (22-30) mmol/L Anion Gap 9 mmol/L BUN 33 H (7-17) mg/dL Creatinine 0.80 (0.52-1.04) mg/dL Est GFR (CKD-EPI)AfAm >90 (>60 ml/min/1.73 sqM) Est GFR (CKD-EPI)NonAf 82 (>60 ml/min/1.73 sqM) Glucose 87 (74-99) mg/dL Calcium 9.3 (8.4-10.2) mg/dL Magnesium 1.8 (1.6-2.3) mg/dL Total Bilirubin 0.2 (0.2-1.3) mg/dL AST 30 (14-36) U/L ALT 38 (9-52) U/L Alkaline Phosphatase 86 (38-126) U/L Total Creatine Kinase 33 (30-135) U/L CK-MB (CK-2) 0.6 (0.0-2.4) ng/mL CK-MB (CK-2) Rel Index 1.8 Troponin I <0.012 (0.000-0.034) ng/mL NT-Pro-B Natriuret Pep pg/mL Total Protein 6.6 (6.3-8.2) g/dL Albumin 4.0 (3.5-5.0) g/dL 04/15/18 04/15/18 Range/Units 16:50 16:50 WBC (3.8-10.6) k/uL RBC (3.80-5.40) m/uL Hgb (11.4-16.0) gm/dL Hct (34.0-46.0) % MCV (80.0-100.0) fL MCH (25.0-35.0) pg MCHC (31.0-37.0) g/dL RDW (11.5-15.5) % Plt Count (150-450) k/uL Neutrophils % % Lymphocytes % % Monocytes % % Eosinophils % % Basophils % % Neutrophils # (1.3-7.7) k/uL Lymphocytes # (1.0-4.8) k/uL Monocytes # (0-1.0) k/uL Eosinophils # (0-0.7) k/uL Basophils # (0-0.2) k/uL Hypochromasia PT 9.3 (9.0-12.0) sec INR 0.9 (<1.2) APTT 22.5 (22.0-30.0) sec Sodium (137-145) mmol/L Potassium (3.5-5.1) mmol/L Chloride (98-107) mmol/L Carbon Dioxide (22-30) mmol/L Anion Gap mmol/L BUN (7-17) mg/dL Creatinine (0.52-1.04) mg/dL Est GFR (CKD-EPI)AfAm (>60 ml/min/1.73 sqM) Est GFR (CKD-EPI)NonAf (>60 ml/min/1.73 sqM) Glucose (74-99) mg/dL Calcium (8.4-10.2) mg/dL Magnesium (1.6-2.3) mg/dL Total Bilirubin (0.2-1.3) mg/dL AST (14-36) U/L ALT (9-52) U/L Alkaline Phosphatase (38-126) U/L Total Creatine Kinase (30-135) U/L CK-MB (CK-2) (0.0-2.4) ng/mL CK-MB (CK-2) Rel Index Troponin I (0.000-0.034) ng/mL NT-Pro-B Natriuret Pep 194 pg/mL Total Protein (6.3-8.2) g/dL Albumin (3.5-5.0) g/dL - EKG Data -: EKG Interpreted by [place] EKG shows normal: sinus rhythm (EKG shows normal sinus rhythm of 94. Interval 126 QRS duration 92 QT since QTC 360/460 hospital left atrial enlargement no acute ST-T wave changes) Critical Care Time Critical Care Time: Yes Critical Care Time: 31 minutes of critical care time which includes initial presentation monitoring of the EMS call discussed with paramedics history physical labs x-rays review of old charting several reevaluation the patient to responsive therapy discussion with the main physician admission orders and documentation of the above Disposition Clinical Impression: Acute exacerbation of chronic obstructive airways disease, Acute respiratory distress syndrome, Peripheral edema Disposition: ADMITTED IP TO THIS HOSP Condition: Stable Referrals: Libra Umaña MD [Primary Care Provider] - 1-2 days
--- NOTE | 2018-04-15 18:59 | XR ---
EXAMINATION TYPE: XR chest 2V DATE OF EXAM: 04/15/2018 COMPARISON: 04/05/2018 HISTORY: Short of breath TECHNIQUE: Frontal and lateral views of the chest are obtained. FINDINGS: There is some coarsening of interstitial pulmonary markings. There is no heart failure. Melani ngs are clear of consolidation. There is no pleural effusion. The bony thorax is intact. Exam is limi narciso by the patient's size. IMPRESSION: No active cardiopulmonary disease. No change compared to old exam.
[2018-04-15] MEDS ORDERED: ACETAMINOPHEN TAB 500 MG TAB PO PRN (20:09)
[2018-04-15] MEDS ORDERED: predniSONE 20 MG TAB PO STA (20:11)
[2018-04-15] MEDS ORDERED: SODIUM CHLORIDE 0.9% 1,000 ML IV SCH (20:45)
[2018-04-15] MEDS ORDERED: ATORVASTATIN 10 MG TAB PO SCH (21:00)
[2018-04-15] MEDS ORDERED: CARVEDILOL 12.5 MG TAB PO SCH (21:00)
[2018-04-15] MEDS ORDERED: QUEtiapine 50 MG TAB PO SCH (21:00)
[2018-04-15] MEDS ORDERED: INSULIN ASPART 100 UNIT/ML 1 ML 10 ML VIAL SQ SCH (21:00)
[2018-04-15] MEDS ORDERED: cefTRIAXone IN SWFI 1,000 MG/10 ML SYRINGE IVP SCH (21:00)
[2018-04-15] MEDS ORDERED: AZITHROMYCIN 500 MG in DEXTROSE 5% IN WATER 250 ML IVPB SCH ×2 (21:00)
[2018-04-15] MEDS ORDERED: POTASSIUM CHLORIDE ER 10 MEQ TAB.ER.PRT PO SCH (21:00)
[2018-04-15] MEDS ORDERED: MIRTAZAPINE 15 MG TAB PO SCH (21:00)
[2018-04-15] MEDS ORDERED: rOPINIRole HCL 4 MG TABLET PO SCH (21:00)
[2018-04-15] MEDS ORDERED: hydrALAZINE HCL 50 MG TAB PO SCH (22:00)
--- NOTE | 2018-04-15 22:07 | HP ---
HISTORY AND PHYSICAL CHIEF COMPLAINT: Shortness of breath. HISTORY OF PRESENT ILLNESS: This 58-year-old woman with a past medical history of multiple medical problems including history of asthma, COPD, history of CHF, diabetes, GERD, hypertension, history of DJD, being followed by Dr. Umaña in the outpatient setting complaining of shortness of breath for the past several days. Patient also had leg edema. The patient started on 60 mg Lasix. Because of lack of improvement, the patient came to [facility] and was admitted to the hospital for further evaluation and treatment. The patient is started on BiPAP at this time. There is no history of fever, rigors. No history of headache, loss of consciousness or seizures. Chest x-ray showed possible bibasilar pneumonia. PAST MEDICAL HISTORY: Asthma, CHF, COPD, diabetes, GERD, hypertension, hyperlipidemia, history of DJD, history of pneumonia, pulmonary embolism. MEDICATIONS: Prior to admission include home medications are the home medications are: 1. Requip 4 mg q.h.s. and 3 mg p.o. daily. 2. Prednisone 10 mg p.r.n. 3. Apresoline 50 mg p.o. daily. 4. Xarelto 20 mg. 6. Lyrica 75 daily. 7. K-Dur 10 mEq p.o. daily. 8. Omeprazole 20 mg daily. 9. Multivitamins one daily. 10.Remeron 30 mg q.h.s. 11.Myrbetriq 50 mg b.i.d. 12.Claritin 10 mg daily. 13.Synthroid 137 mcg p.o. daily. 14.Levaquin 500 mg p.o. daily. 15.Lasix 20 mg p.o. b.i.d. 16.Cymbalta 60 mg. 17.Vitamin D3 10,000 daily. 18.Coreg 25 mg p.o. b.i.d. 19.Lipitor 10 mg q.h.s. 20.Ventolin HFA 1-2 puffs q.i.d. p.r.n. 21.Tylenol 500 mg q6h p.r.n. ALLERGIES: MULTIPLE ALLERGIES BUSPAR, HALOPERIDOL, PENICILLINS, SULFA, TETANUS TOXOID, STELAZINE AND VISTARIL. FAMILY HISTORY: History of lung cancer in the family. SOCIAL HISTORY: No history of smoking. No history of alcohol intake. REVIEW OF SYSTEMS: ENT: No diminished vision. No diminished hearing. CARDIOVASCULAR: No angina or palpitations. RESPIRATORY: As mentioned earlier. GI: No nausea or vomiting. : No dysuria. NERVOUS SYSTEM: No numbness or weakness. ALLERGY/IMMUNOLOGY: No asthma or hayfever. MUSCULOSKELETAL: As mentioned earlier. HEMATOLOGY/ONCOLOGY: No history of anemia. ENDOCRINE: As mentioned earlier. CONSTITUTIONAL: As mentioned earlier. Dermatology: Negative. Rheumatology: Negative. Psychiatry: As mentioned earlier. PHYSICAL EXAMINATION: GENERAL: Alert and oriented times three. VITAL SIGNS: Pulse is 92. Blood pressure 120/64, respiration 20, temperature normal. Pulse ox 98% on room air. HEENT: Conjunctivae normal. Oral mucosa moist. Neck is no jugular venous distention. No carotid bruit. No lymph nodes enlargement. Accessory muscles are respiration acting. CARDIOVASCULAR: S1-S2. No S3, no S4. RESPIRATORY: Breathing efforts are markedly increased. Bilateral scattered rhonchi and crackles. ABDOMEN: Soft, obese, nontender. No mass palpable. LEGS: Bilateral leg edema. NERVOUS SYSTEM: Higher functions as mentioned earlier. Moves all 4 limbs. No focal motor or sensory deficits. LYMPHATICS: No lymph nodes palpable in the neck, axillae or groin. SKIN: No ulcer, rash or bleeding. LAB STUDIES: At this time shows WBC 8, hemoglobin 10.1. ASSESSMENT: 1. Chronic obstructive pulmonary disease/asthma acute exacerbation with possible bibasilar pneumonia versus bronchopneumonia with gram-negative. 2. History of congestive heart failure. 3. Diabetes mellitus type 2. 4. Gastroesophageal reflux disease. 5. Hypertension. 6. Hyperlipidemia. 7. Degenerative joint disease. 8. History of pneumonia. 9. History of pulmonary embolus. 10.Hypothyroid. 11.Morbid obesity with BMI of 66.7. 12.History of degenerative joint disease. 13.History of bariatric surgery. 14.Anxiety/bipolar depression, panic disorder, PTSD, history of borderline personality disorder. RECOMMENDATIONS AND DISCUSSION: In this 58-year-old woman who presented with multiple complex medical issues, we will monitor the patient closely. I would recommend intensive bronchodilator treatment as well as empiric antibiotics. Also obtain cultures. Pulmonary consultation. Ensure oxygenation. DVT prophylaxis. I would also recommend a small dose of diuretics also. The BNP is normal. There is no overt evidence of CHF per se. I would also recommend social insurance analyst and Case Management to continue to monitor as well. Please note patient has a legal guardian. The rest of the recommendations will be noted in the chart and home medications will be continued and monitor blood sugars closely. DVT prophylaxis. Prognosis guarded. Further recommendations to follow. BENTLEY / GRIFFINN: [id number] / MTDD
[2018-04-16] MEDS ORDERED: IPRATROPIUM-ALBUTEROL 3 ML NEB INHALATION SCH
[2018-04-16] MEDS: IPRATROPIUM-ALBUTEROL 3 ML NEB INHALATION PRN ×2 (00:04→05:30)
[2018-04-16 00:05] VITALS: RESP 16
[2018-04-16 00:43] VITALS: BP 148/71; TEMP 98.3
[2018-04-16 01:21] VITALS: BMI 65.3
[2018-04-16 04:55] LABS: Hemoglobin A1C 6.1 % (4.0-6.0)
[2018-04-16 05:41] VITALS: PULSE 96
[2018-04-16] MEDS ORDERED: LEVOTHYROXINE 137 MCG TAB PO SCH (06:30)
[2018-04-16] MEDS ORDERED: ALPRAZolam 0.25 MG TAB PO PRN (06:43)
[2018-04-16] MEDS ORDERED: PANTOPRAZOLE 40 MG TABLET PO SCH (07:30)
[2018-04-16 07:36] LABS: Glucose,Whole Blood 131 mg/dL (75-99)
[2018-04-16] MEDS ORDERED: FORMOTEROL FUMARATE 20 MCG/2 ML NEBU INHALATION SCH (08:00)
[2018-04-16] MEDS ORDERED: ALBUTEROL NEBULIZED 2.5 MG/3 ML INHALATION SCH (08:00)
[2018-04-16] MEDS ORDERED: BUDESONIDE 1 MG/2 ML NEBU INHALATION SCH (08:00)
[2018-04-16] MEDS ORDERED: IPRATROPIUM 0.5 MG/2.5 ML NEBU INHALATION SCH (08:00)
[2018-04-16] MEDS ORDERED: PREGABALIN 75 MG CAP PO SCH (09:00)
[2018-04-16] MEDS ORDERED: CHOLECALCIFEROL 1,000 UNIT TAB PO SCH (09:00)
[2018-04-16] MEDS ORDERED: RIVAROXABAN 20 MG TAB PO SCH (09:00)
[2018-04-16] MEDS ORDERED: DULoxetine HCL 60 MG CAPSULE.DR PO SCH (09:00)
[2018-04-16] MEDS ORDERED: NON-FORMULARY DRUG (Mirabegron [Myrbetriq] 50 MG) PO SCH (09:00)
[2018-04-16] MEDS ORDERED: LORATADINE 10 MG TAB PO SCH (09:00)
[2018-04-16] MEDS ORDERED: NON-FORMULARY DRUG (Omeprazole [Omeprazole] 20 MG) PO SCH (09:00)
[2018-04-16] MEDS ORDERED: MULTIVITAMINS, THERA 1 EACH TAB PO SCH (12:00)
--- NOTE | 2018-04-16 12:17 | DS ---
DISCHARGE SUMMARY FINAL DIAGNOSES: 1. Chronic obstructive pulmonary disease, asthma, acute exacerbation with possible bibasilar pneumonia versus bronchopneumonia with gram-negative. 2. History of congestive heart failure. 3. Multiple medical issues. DISCHARGE DISPOSITION: Patient left the hospital AGAINST MEDICAL ADVICE. HISTORY OF PRESENT ILLNESS: This 58-year-old woman admitted with multiple medical problems including COPD and as well as possible pneumonia left the hospital AGAINST MEDICAL ADVICE. The patient's condition remained guarded throughout the hospital stay. Please refer to the previous history and physical and staff notes and ER notes for further details. MMODL / IJN: [id number] /
== END 2018-04-16 08:01 | disposition left against medical advice (07) ==
LOC: EC 16:18 → 5MS5E 20:48
PROVIDERS: ADMIT Hospitalist; ATTEND Hospitalist
DX: J44.1 Chronic obstructive pulmonary disease with (acute) exacerbation (principal); I50.9 Heart failure, unspecified; Z53.21 Procedure and treatment not carried out due to patient leaving prior to being seen by health care provider; Z77.22 Contact with and (suspected) exposure to environmental tobacco smoke (acute) (chronic); Z79.899 Other long term (current) drug therapy; Z79.890 Hormone replacement therapy; Z88.0 Allergy status to penicillin; Z88.2 Allergy status to sulfonamides; Z88.7 Allergy status to serum and vaccine; Z88.8 Allergy status to other drugs, medicaments and biological substances; Z91.048 Other nonmedicinal substance allergy status; E11.9 Type 2 diabetes mellitus without complications; K21.9 Gastro-esophageal reflux disease without esophagitis; E78.5 Hyperlipidemia, unspecified; M19.90 Unspecified osteoarthritis, unspecified site; Z87.01 Personal history of pneumonia (recurrent); Z86.711 Personal history of pulmonary embolism; Z87.19 Personal history of other diseases of the digestive system; E66.01 Morbid (severe) obesity due to excess calories; E03.9 Hypothyroidism, unspecified; D64.9 Anemia, unspecified; Z87.440 Personal history of urinary (tract) infections; G25.81 Restless legs syndrome; M51.26 Other intervertebral disc displacement, lumbar region; Z98.84 Bariatric surgery status; F43.10 Post-traumatic stress disorder, unspecified; F41.0 Panic disorder [episodic paroxysmal anxiety]; F31.9 Bipolar disorder, unspecified; Z80.1 Family history of malignant neoplasm of trachea, bronchus and lung; Z82.49 Family history of ischemic heart disease and other diseases of the circulatory system; Z68.44 Body mass index [BMI] 60.0-69.9, adult; I11.0 Hypertensive heart disease with heart failure; F60.3 Borderline personality disorder; J45.901 Unspecified asthma with (acute) exacerbation; J80 Acute respiratory distress syndrome
CPT/HCPCS: 99291; 96375 ×2; 96365 ×2; 96366; 36415; 94640 ×4; 93005; 83880; 80053; 82550; 82553; 83735; 84484; 85025; 85610; 85730; 87040; 83036; 71046; G0378 ×2; J0456; J0696; J7512

== ENCOUNTER 2018-04-20 20:03 | Emergency (ER) | payer MEDICARE, OTHER ==
--- NOTE | 2018-04-20 20:46 | ED ---
SOB HPI - General Chief Complaint: Shortness of Breath Stated Complaint: SOB Time Seen by Provider: 04/20/18 20:08 Source: patient, EMS, RN notes reviewed Mode of arrival: EMS Limitations: no limitations - History of Present Illness Initial Comments: This is a 58-year-old obese female with history of CHF, COPD and other comorbidities who presents to the emergency department with chief complaint of shortness of breath. Patient states that she has noticed increased swelling in bilateral legs. She was at Dr. mUaña's office earlier today and he increased her Lasix to 40 mg twice a day. Patient states that she then went to the mall and rode around on a motorized cart. She states that she developed an increase in shortness of breath. She reports an increase in shortness of breath over the last 2 days with exertion. She states that yesterday the person who cleans her house did not do a good job so she was forced to clean her apartment by herself. She states that while doing so she became short of breath. Patient reports a generalized chest discomfort but denies pain. Denies fevers or chills , abdominal pain, nausea or vomiting. - Related Data Home Medications Medication Instructions Recorded Confirmed Mirabegron [Myrbetriq] 50 mg PO DAILY 05/23/17 04/15/18 Atorvastatin [Lipitor] 10 mg PO HS 06/07/17 04/15/18 Carvedilol [Coreg] 25 mg PO BID 06/07/17 04/15/18 Cholecalciferol [Vitamin D3] 10,000 unit PO DAILY 06/07/17 04/15/18 Loratadine [Claritin] 10 mg PO DAILY 06/07/17 04/15/18 Multivitamins, Thera [Multivitamin 1 tab PO DAILY 06/07/17 04/15/18 (formulary)] Omeprazole 20 mg PO DAILY 06/07/17 04/15/18 Levothyroxine Sodium [Synthroid] 137 mcg PO DAILY 10/20/17 04/15/18 hydrALAZINE HCL [Apresoline] 50 mg PO TID 10/20/17 04/15/18 Furosemide [Lasix] 20 mg PO BID 01/08/18 04/15/18 Albuterol Inhaler [Ventolin Hfa 1 - 2 puff INHALATION RT-QID PRN 02/09/18 Inhaler] Potassium Chloride ER [K-Dur 10] 10 meq PO BID 03/19/18 04/15/18 DULoxetine HCL [Cymbalta] 60 mg PO DAILY 03/31/18 04/15/18 Mirtazapine 30 mg PO HS 03/31/18 04/15/18 Pregabalin [Lyrica] 75 mg PO DAILY 03/31/18 04/15/18 QUEtiapine [SEROquel] 50 mg PO HS 03/31/18 04/15/18 rOPINIRole HCL 3 mg PO DAILY 03/31/18 04/15/18 rOPINIRole HCL 4 mg PO HS 03/31/18 04/15/18 Previous Rx's Medication Instructions Recorded Rivaroxaban [Xarelto] 20 mg PO DAILY 90 Days #90 tab 11/18/17 Acetaminophen Tab [Tylenol] 500 mg PO Q6HR PRN tab 03/29/18 Levofloxacin [Levaquin] 500 mg PO DAILY #5 tab 03/29/18 predniSONE 10 mg PO DIRECTED #30 tab 03/29/18 Allergies Allergy/AdvReac Type Severity Reaction Status Date / Time buspirone [From BuSpar] Allergy Unknown Verified 04/15/18 16:30 haloperidol [From Haldol] Allergy Swelling Verified 04/15/18 16:30 iodine Allergy Swelling Verified 04/15/18 16:30 Penicillins Allergy Swelling Verified 04/15/18 16:30 prochlorperazine Allergy Rash/Hives Verified 04/15/18 16:30 Sulfa (Sulfonamide Allergy Rash/Hives Verified 04/15/18 16:30 Antibiotics) Tetanus Vaccines and Toxoid Allergy Rash/Hives Verified 04/15/18 16:30 [Tetanus Vaccines & Toxoid] trifluoperazine HCl Allergy Unknown Verified 04/15/18 16:30 [From Stelazine] hydroxyzine [From Vistaril] AdvReac Rash/Hives Verified 04/15/18 16:30 Review of Systems ROS Statement: Those systems with pertinent positive or pertinent negative responses have been documented in the HPI. ROS Other: All systems not noted in ROS Statement are negative. Past Medical History Past Medical History: Asthma, Heart Failure, COPD, Diabetes Mellitus, GERD/ Reflux, Hyperlipidemia, Hypertension, Musculoskeletal Disorder, Osteoarthritis ( OA), Pneumonia, Pulmonary Embolus (PE), Thyroid Disorder Additional Past Medical History / Comment(s): diet controlled diabetes per pt, morbid obesity, hypothyroid, UTI, RLS, anemia, lumbar pain with herniated discs. dx with cellulitis left leg on 02/14/2018 History of Any Multi-Drug Resistant Organisms: None Reported Past Surgical History: Bariatric Surgery, Hernia Repair, Orthopedic Surgery Additional Past Surgical History / Comment(s): Total Right knee replacement, 3 abdominal hernia repairs, left hip repair Past Anesthesia/Blood Transfusion Reactions: No Reported Reaction Past Psychological History: Anxiety, Bipolar, Depression, Panic Disorder, PTSD Smoking Status: Never smoker Past Alcohol Use History: Occasional Past Drug Use History: None Reported - Past Family History Mother Family Medical History: Cancer Additional Family Medical History / Comment(s): lung cancer Father Family Medical History: Diabetes Mellitus Additional Family Medical History / Comment(s): "my dad from a blood clot that traveled from his leg to his lung and also caused a heart attack." Brother(s) Family Medical History: Diabetes Mellitus Sister(s) Additional Family Medical History / Comment(s): "her heart races too fast" General Exam - General Exam Comments Initial Comments: General: Awake and alert, well-developed; in no apparent distress. Obese white female lying on ED stretcher. Does not appear acutely ill. HEENT: Head atraumatic, normocephalic. Pupils are equal, round and reactive to light. Extraocular movements intact. Oropharynx moist without erythema or exudate. Neck: Supple. Normal ROM. Cardiovascular: Regular rate and rhythm. No murmurs, rubs or gallops. Chest symmetrical. Respiratory: Diminished breath sounds diffusely. No wheezes, rales or rhonchi. Normal respiratory effort with no use of accessory muscles. Abdomen: Obese, soft, non-tender, non-distended. No rigidity, rebound or guarding. Normal bowel sounds in all 4 quadrants. Musculoskeletal: Normal ROM bilateral upper and lower extremities. Skin: [place], warm and dry without rashe. Chronic bilateral non-pitting lower extremity edema. Neurological: Alert and oriented x3. CN II-XII grossly intact. Speech is fluent and answers are appropriate. No focal neuro deficits. Psychiatric: Normal mood and affect. No overt signs of depression or anxiety noted. Limitations: no limitations Course Vital Signs 04/20/18 04/20/18 20:19 22:08 Temperature 98.1 F 98 F Pulse Rate 88 77 Respiratory 18 16 Rate Blood Pressure 168/80 177/87 O2 Sat by Pulse 100 97 Oximetry Medical Decision Making - Medical Decision Making This is a 58-year-old female with history of COPD and CHF who presents to the emergency department with chief complaint of shortness of breath and bilateral lower extremity edema. Patient states that she has been short of breath for the past couple of days. She followed up with Dr. Umaña today and he told her to increase her Lasix. Patient reports increased shortness of breath on exertion. CBC, CMP are unremarkable. Troponin is negative and EKG reveals normal sinus rhythm. D-dimer mildly elevated at 0.63. Chest x-ray reveals coarse lung markings with no gross heart failure. BNP is at 117. Patient's vital signs have been stable and she is in no acute distress. Patient is up walking and is 97% on room air. Case discussed with attending physician, Dr. Castillo. Patient will be discharged home at this time. She is to follow-up with her primary care provider. She is in agreement with plan and voices understanding. All questions answered. - Lab Data Result diagrams: 04/20/18 20:50 04/20/18 20:50 Lab Results 04/20/18 04/20/18 04/20/18 Range/Units 20:50 20:50 20:50 WBC 7.0 (3.8-10.6) k/uL RBC 3.74 L (3.80-5.40) m/uL Hgb 9.6 L (11.4-16.0) gm/dL Hct 30.0 L (34.0-46.0) % MCV 80.2 (80.0-100.0) fL MCH 25.7 (25.0-35.0) pg MCHC 32.1 (31.0-37.0) g/dL RDW 15.1 (11.5-15.5) % Plt Count 311 (150-450) k/uL Neutrophils % 72 % Lymphocytes % 17 % Monocytes % 6 % Eosinophils % 2 % Basophils % 0 % Neutrophils # 5.0 (1.3-7.7) k/uL Lymphocytes # 1.2 (1.0-4.8) k/uL Monocytes # 0.4 (0-1.0) k/uL Eosinophils # 0.2 (0-0.7) k/uL Basophils # 0.0 (0-0.2) k/uL PT (9.0-12.0) sec INR (<1.2) APTT (22.0-30.0) sec D-Dimer (<0.60) mg/L FEU Sodium 139 (137-145) mmol/L Potassium 4.2 (3.5-5.1) mmol/L Chloride 106 (98-107) mmol/L Carbon Dioxide 25 (22-30) mmol/L Anion Gap 8 mmol/L BUN 28 H (7-17) mg/dL Creatinine 0.70 (0.52-1.04) mg/dL Est GFR (CKD-EPI)AfAm >90 (>60 ml/min/1.73 sqM) Est GFR (CKD-EPI)NonAf >90 (>60 ml/min/1.73 sqM) Glucose 106 H (74-99) mg/dL Calcium 8.9 (8.4-10.2) mg/dL Magnesium 1.9 (1.6-2.3) mg/dL Total Bilirubin 0.3 (0.2-1.3) mg/dL AST 29 (14-36) U/L ALT 32 (9-52) U/L Alkaline Phosphatase 75 (38-126) U/L Total Creatine Kinase 36 (30-135) U/L CK-MB (CK-2) 0.7 (0.0-2.4) ng/mL CK-MB (CK-2) Rel Index 1.9 Troponin I <0.012 (0.000-0.034) ng/mL NT-Pro-B Natriuret Pep pg/mL Total Protein 6.3 (6.3-8.2) g/dL Albumin 3.8 (3.5-5.0) g/dL 04/20/18 04/20/18 Range/Units 20:50 20:50 WBC (3.8-10.6) k/uL RBC (3.80-5.40) m/uL Hgb (11.4-16.0) gm/dL Hct (34.0-46.0) % MCV (80.0-100.0) fL MCH (25.0-35.0) pg MCHC (31.0-37.0) g/dL RDW (11.5-15.5) % Plt Count (150-450) k/uL Neutrophils % % Lymphocytes % % Monocytes % % Eosinophils % % Basophils % % Neutrophils # (1.3-7.7) k/uL Lymphocytes # (1.0-4.8) k/uL Monocytes # (0-1.0) k/uL Eosinophils # (0-0.7) k/uL Basophils # (0-0.2) k/uL PT 10.2 (9.0-12.0) sec INR 1.0 (<1.2) APTT 25.8 (22.0-30.0) sec D-Dimer 0.63 H (<0.60) mg/L FEU Sodium (137-145) mmol/L Potassium (3.5-5.1) mmol/L Chloride (98-107) mmol/L Carbon Dioxide (22-30) mmol/L Anion Gap mmol/L BUN (7-17) mg/dL Creatinine (0.52-1.04) mg/dL Est GFR (CKD-EPI)AfAm (>60 ml/min/1.73 sqM) Est GFR (CKD-EPI)NonAf (>60 ml/min/1.73 sqM) Glucose (74-99) mg/dL Calcium (8.4-10.2) mg/dL Magnesium (1.6-2.3) mg/dL Total Bilirubin (0.2-1.3) mg/dL AST (14-36) U/L ALT (9-52) U/L Alkaline Phosphatase (38-126) U/L Total Creatine Kinase (30-135) U/L CK-MB (CK-2) (0.0-2.4) ng/mL CK-MB (CK-2) Rel Index Troponin I (0.000-0.034) ng/mL NT-Pro-B Natriuret Pep 117 pg/mL Total Protein (6.3-8.2) g/dL Albumin (3.5-5.0) g/dL - EKG Data EKG Comments: 20:57:54. Normal sinus rhythm. Normal ECG. Ventricular rate 85 bpm, SD interval 140, QRS duration 90, QT/QTC 382/454 - Radiology Data Radiology results: report reviewed, image reviewed Chest x-ray impression: Coarse lung markings. No gross heart failure. Limited exam. Inspiration is slightly worse than old exam. Disposition Clinical Impression: Shortness of breath Disposition: HOME SELF-CARE Condition: Good Instructions: COPD (Chronic Obstructive Pulmonary Disease) (ED), Dyspnea (ED) Additional Instructions: Please follow up with primary care provider within 1-2 days. Return to emergency department if symptoms should worsen or any concerns arise. Is patient prescribed a controlled substance at d/c from ED?: No Referrals: Libra Umaña MD [Primary Care Provider] - 1-2 days Time of Disposition: 22:11
[2018-04-20 21:01] LABS: Basophils % (A) 0 %; Eosinophils # (A) 0.2 k/uL (0-0.7); Eosinophils % (A) 2 %; HGB 9.6 gm/dL (11.4-16.0); Lymphocytes # (A) 1.2 k/uL (1.0-4.8); Lymphocytes % (A) 17 %; MCH 25.7 pg (25.0-35.0); MCHC 32.1 g/dL (31.0-37.0); MCV 80.2 fL (80.0-100.0); Mean Platelet Volume 7.7; Monocytes # (A) 0.4 k/uL (0-1.0); Monocytes % (A) 6 %; Neutrophils % (A) 72 %; Platelet Count 311 k/uL (150-450); RBC 3.74 m/uL (3.80-5.40); RDW 15.1 % (11.5-15.5)
[2018-04-20 21:17] LABS: Partial Thromboplastin Time 25.8 sec (22.0-30.0); Prothrombin Time 10.2 sec (9.0-12.0)
[2018-04-20 21:18] LABS: D-Dimer 0.63 mg/L FEU (<0.60)
[2018-04-20 21:21] LABS: Creatine Kinase 36 U/L (30-135)
[2018-04-20 21:23] LABS: ALT 32 U/L (9-52); AST 29 U/L (14-36); Albumin 3.8 g/dL (3.5-5.0); Alkaline Phosphatase 75 U/L (38-126); Anion Gap 8 mmol/L; Blood Urea Nitrogen 28 mg/dL (7-17); Calcium 8.9 mg/dL (8.4-10.2); Carbon Dioxide 25 mmol/L (22-30); Chloride 106 mmol/L (98-107); Glucose 106 mg/dL (74-99); Magnesium 1.9 mg/dL (1.6-2.3); Potassium 4.2 mmol/L (3.5-5.1); Sodium 139 mmol/L (137-145); Total Bilirubin 0.3 mg/dL (0.2-1.3); Total Protein 6.3 g/dL (6.3-8.2)
--- NOTE | 2018-04-20 21:30 | XR ---
EXAMINATION TYPE: XR chest 2V DATE OF EXAM: 04/20/2018 COMPARISON: 04/15/2018 HISTORY: Short of breath TECHNIQUE: Frontal and lateral views of the chest are obtained. FINDINGS: There is poor separation. There is coarse interstitial density in the mid and lower lung f ields. Exam is limited by the obesity. I see no pleural effusion. IMPRESSION: Coarse lung markings. No gross heart failure. Limited exam. Inspiration is slightly wors e than old exam.
[2018-04-20 21:34] LABS: Creatine Kinase MB 0.7 ng/mL (0.0-2.4); Troponin I <0.012 ng/mL (0.000-0.034)
[2018-04-20] MEDS ORDERED: ACETAMINOPHEN TAB 500 MG TAB PO STA (21:58)
[2018-04-20 22:09] VITALS: RESP 16
[2018-04-20 23:16] VITALS: BP 133/61; PULSE 95; TEMP 98
== END 2018-04-20 23:22 | disposition home or self-care (01) ==
LOC: EC 20:03
DX: R06.02 Shortness of breath (principal); R07.89 Other chest pain; M79.89 Other specified soft tissue disorders; I50.9 Heart failure, unspecified; I11.0 Hypertensive heart disease with heart failure; J44.9 Chronic obstructive pulmonary disease, unspecified; K21.9 Gastro-esophageal reflux disease without esophagitis; E03.9 Hypothyroidism, unspecified; G25.81 Restless legs syndrome; E78.5 Hyperlipidemia, unspecified; F31.9 Bipolar disorder, unspecified; F41.0 Panic disorder [episodic paroxysmal anxiety]; F43.10 Post-traumatic stress disorder, unspecified; Z86.711 Personal history of pulmonary embolism; E66.01 Morbid (severe) obesity due to excess calories; Z68.44 Body mass index [BMI] 60.0-69.9, adult; Z79.899 Other long term (current) drug therapy; Z88.0 Allergy status to penicillin; Z88.2 Allergy status to sulfonamides; Z88.7 Allergy status to serum and vaccine; Z88.8 Allergy status to other drugs, medicaments and biological substances; Z96.651 Presence of right artificial knee joint
CPT/HCPCS: 36415; 71046; 80053; 82550; 82553; 83735; 83880; 84484; 85025; 85379; 85610; 85730; 87040; 93005; 99285

== ENCOUNTER 2018-04-22 09:27 | Observation (INO) | payer MEDICARE, OTHER ==
[2018-04-22] MEDS ORDERED: IBUPROFEN 600 MG TAB PO STA (10:00)
[2018-04-22] MEDS ORDERED: ACETAMINOPHEN TAB 500 MG TAB PO STA (10:00)
--- NOTE | 2018-04-22 10:13 | ED ---
General Adult HPI - General Chief complaint: Fever Stated complaint: fever, chills Time Seen by Provider: 04/22/18 09:35 Source: patient, RN notes reviewed Mode of arrival: wheelchair Limitations: no limitations - History of Present Illness Initial comments: This is a 58-year-old female presents emergency Department complaining of a fever and chills today. Patient states she also has some lower back pain which is normal for her but she thinks is due to having to clean her apartment yesterday. Patient denies any cough patient denies any difficulty breathing or shortness of breath today. Patient denies any chest pain. Patient denies abdominal pain. Patient denies nausea vomiting diarrhea. Patient denies any dysuria hematuria urinary frequency. Patient denies headache patient denies numbness weakness. - Related Data Home Medications Medication Instructions Recorded Confirmed Mirabegron [Myrbetriq] 50 mg PO DAILY 05/23/17 04/22/18 Atorvastatin [Lipitor] 10 mg PO HS 06/07/17 04/22/18 Carvedilol [Coreg] 25 mg PO BID 06/07/17 04/22/18 Cholecalciferol [Vitamin D3] 10,000 unit PO DAILY 06/07/17 04/22/18 Loratadine [Claritin] 10 mg PO DAILY 06/07/17 04/22/18 Multivitamins, Thera [Multivitamin 1 tab PO DAILY 06/07/17 04/22/18 (formulary)] Omeprazole 20 mg PO DAILY 06/07/17 04/22/18 Levothyroxine Sodium [Synthroid] 137 mcg PO DAILY 10/20/17 04/22/18 hydrALAZINE HCL [Apresoline] 50 mg PO TID 10/20/17 04/22/18 Furosemide [Lasix] 20 mg PO BID 01/08/18 04/22/18 Albuterol Inhaler [Ventolin Hfa 1 - 2 puff INHALATION RT-QID PRN 02/09/18 Inhaler] Potassium Chloride ER [K-Dur 10] 10 meq PO BID 03/19/18 04/22/18 DULoxetine HCL [Cymbalta] 60 mg PO DAILY 03/31/18 04/22/18 Mirtazapine 30 mg PO HS 03/31/18 04/22/18 Pregabalin [Lyrica] 75 mg PO DAILY 03/31/18 04/22/18 QUEtiapine [SEROquel] 50 mg PO HS 03/31/18 04/22/18 rOPINIRole HCL 3 mg PO DAILY 03/31/18 04/22/18 rOPINIRole HCL 4 mg PO HS 03/31/18 04/22/18 Previous Rx's Medication Instructions Recorded Rivaroxaban [Xarelto] 20 mg PO DAILY 90 Days #90 tab 11/18/17 Acetaminophen Tab [Tylenol] 500 mg PO Q6HR PRN tab 03/29/18 Allergies Allergy/AdvReac Type Severity Reaction Status Date / Time buspirone [From BuSpar] Allergy Unknown Verified 04/22/18 09:48 haloperidol [From Haldol] Allergy Swelling Verified 04/22/18 09:48 iodine Allergy Swelling Verified 04/22/18 09:48 Penicillins Allergy Swelling Verified 04/22/18 09:48 prochlorperazine Allergy Rash/Hives Verified 04/22/18 09:48 Sulfa (Sulfonamide Allergy Rash/Hives Verified 04/22/18 09:48 Antibiotics) Tetanus Vaccines and Toxoid Allergy Rash/Hives Verified 04/22/18 09:48 [Tetanus Vaccines & Toxoid] trifluoperazine HCl Allergy Unknown Verified 04/22/18 09:48 [From Stelazine] hydroxyzine [From Vistaril] AdvReac Rash/Hives Verified 04/22/18 09:48 Review of Systems ROS Statement: Those systems with pertinent positive or pertinent negative responses have been documented in the HPI. ROS Other: All systems not noted in ROS Statement are negative. Past Medical History Past Medical History: Asthma, Heart Failure, COPD, Diabetes Mellitus, GERD/ Reflux, Hyperlipidemia, Hypertension, Musculoskeletal Disorder, Osteoarthritis ( OA), Pneumonia, Pulmonary Embolus (PE), Thyroid Disorder Additional Past Medical History / Comment(s): diet controlled diabetes per pt, morbid obesity, hypothyroid, UTI, RLS, anemia, lumbar pain with herniated discs. dx with cellulitis left leg on 02/14/2018 History of Any Multi-Drug Resistant Organisms: None Reported Past Surgical History: Bariatric Surgery, Hernia Repair, Orthopedic Surgery Additional Past Surgical History / Comment(s): Total Right knee replacement, 3 abdominal hernia repairs, left hip repair Past Anesthesia/Blood Transfusion Reactions: No Reported Reaction Past Psychological History: Anxiety, Bipolar, Depression, Panic Disorder, PTSD Smoking Status: Never smoker Past Alcohol Use History: Occasional Past Drug Use History: None Reported - Past Family History Mother Family Medical History: Cancer Additional Family Medical History / Comment(s): lung cancer Father Family Medical History: Diabetes Mellitus Additional Family Medical History / Comment(s): "my dad from a blood clot that traveled from his leg to his lung and also caused a heart attack." Brother(s) Family Medical History: Diabetes Mellitus Sister(s) Additional Family Medical History / Comment(s): "her heart races too fast" General Exam - General Exam Comments Initial Comments: GENERAL: Patient is well-developed and well-nourished. Patient is nontoxic and well- hydrated and is in mild distress. ENT: Neck is soft and supple. No significant lymphadenopathy is noted. Oropharynx is clear. Moist mucous membranes. Neck has full range of motion without eliciting any pain. EYES: The sclera were anicteric and conjunctiva were pink and moist. Extraocular movements were intact and pupils were equal round and reactive to light. Eyelids were unremarkable. PULMONARY: Unlabored respirations. Good breath sounds bilaterally. No audible rales rhonchi or wheezing was noted. CARDIOVASCULAR: There is a regular rate and rhythm without any murmurs gallops or rubs. ABDOMEN: Soft and nontender with normal bowel sounds. Patient is morbidly obese No palpable organomegaly was noted. There is no palpable pulsatile mass. SKIN: Skin is clear with no lesions or rashes and otherwise unremarkable. NEUROLOGIC: Patient is alert and oriented x3. Cranial nerves II through XII are grossly intact. Motor and sensory are also intact. Normal speech, volume and content. Symmetrical smile. MUSCULOSKELETAL: Normal extremities with adequate strength and full range of motion. LYMPHATICS: No significant lymphadenopathy is noted PSYCHIATRIC: Normal psychiatric evaluation. Normal interpersonal interactions appears functionally intact in deals appropriately with others. No signs of depression. No signs of anxiety. Limitations: no limitations Course Vital Signs 04/22/18 04/22/18 09:36 11:45 Temperature 100.5 F H 99.1 F Pulse Rate 121 H 101 H Respiratory 24 18 Rate Blood Pressure 159/75 149/65 O2 Sat by Pulse 96 93 L Oximetry Medical Decision Making - Medical Decision Making Chest x-ray shows infiltrates. I spoke with Dr. Doshi he agreed to admit the patient admitted the patient I wrote admitting orders. - Lab Data Result diagrams: 04/22/18 10:20 04/22/18 10:20 Lab Results 04/22/18 04/22/18 04/22/18 Range/Units 10:10 10:20 10:20 WBC 11.5 H (3.8-10.6) k/uL RBC 3.95 (3.80-5.40) m/uL Hgb 10.2 L (11.4-16.0) gm/dL Hct 32.2 L (34.0-46.0) % MCV 81.6 (80.0-100.0) fL MCH 25.8 (25.0-35.0) pg MCHC 31.6 (31.0-37.0) g/dL RDW 15.1 (11.5-15.5) % Plt Count 293 (150-450) k/uL Neutrophils % 87 % Lymphocytes % 6 % Monocytes % 5 % Eosinophils % 1 % Basophils % 0 % Neutrophils # 10.0 H (1.3-7.7) k/uL Lymphocytes # 0.7 L (1.0-4.8) k/uL Monocytes # 0.6 (0-1.0) k/uL Eosinophils # 0.1 (0-0.7) k/uL Basophils # 0.0 (0-0.2) k/uL Hypochromasia Slight Sodium 139 (137-145) mmol/L Potassium 4.3 (3.5-5.1) mmol/L Chloride 103 (98-107) mmol/L Carbon Dioxide 30 (22-30) mmol/L Anion Gap 6 mmol/L BUN 21 H (7-17) mg/dL Creatinine 0.60 (0.52-1.04) mg/dL Est GFR (CKD-EPI)AfAm >90 (>60 ml/min/1.73 sqM) Est GFR (CKD-EPI)NonAf >90 (>60 ml/min/1.73 sqM) Glucose 103 H (74-99) mg/dL Plasma Lactic Acid Brock (0.7-2.0) mmol/L Calcium 9.1 (8.4-10.2) mg/dL Total Bilirubin 0.4 (0.2-1.3) mg/dL AST 32 (14-36) U/L ALT 32 (9-52) U/L Alkaline Phosphatase 84 (38-126) U/L Total Protein 6.7 (6.3-8.2) g/dL Albumin 4.0 (3.5-5.0) g/dL Urine Color Yellow Urine Appearance Clear (Clear) Urine pH 5.5 (5.0-8.0) Ur Specific [place] 1.014 (1.001-1.035) Urine Protein Negative (Negative) Urine Glucose (UA) Negative (Negative) Urine Ketones Negative (Negative) Urine Blood Negative (Negative) Urine Nitrite Negative (Negative) Urine Bilirubin Negative (Negative) Urine Urobilinogen <2.0 (<2.0) mg/dL Ur Leukocyte Esterase Trace H (Negative) Urine RBC <1 (0-5) /hpf Urine WBC 2 (0-5) /hpf Ur Squamous Epith Cells 1 (0-4) /hpf 04/22/ Range/Units 10:20 WBC (3.8-10.6) k/uL RBC (3.80-5.40) m/uL Hgb (11.4-16.0) gm/dL Hct (34.0-46.0) % MCV (80.0-100.0) fL MCH (25.0-35.0) pg MCHC (31.0-37.0) g/dL RDW (11.5-15.5) % Plt Count (150-450) k/uL Neutrophils % % Lymphocytes % % Monocytes % % Eosinophils % % Basophils % % Neutrophils # (1.3-7.7) k/uL Lymphocytes # (1.0-4.8) k/uL Monocytes # (0-1.0) k/uL Eosinophils # (0-0.7) k/uL Basophils # (0-0.2) k/uL Hypochromasia Sodium (137-145) mmol/L Potassium (3.5-5.1) mmol/L Chloride (98-107) mmol/L Carbon Dioxide (22-30) mmol/L Anion Gap mmol/L BUN (7-17) mg/dL Creatinine (0.52-1.04) mg/dL Est GFR (CKD-EPI)AfAm (>60 ml/min/1.73 sqM) Est GFR (CKD-EPI)NonAf (>60 ml/min/1.73 sqM) Glucose (74-99) mg/dL Plasma Lactic Acid Brock 1.5 (0.7-2.0) mmol/L Calcium (8.4-10.2) mg/dL Total Bilirubin (0.2-1.3) mg/dL AST (14-36) U/L ALT (9-52) U/L Alkaline Phosphatase (38-126) U/L Total Protein (6.3-8.2) g/dL Albumin (3.5-5.0) g/dL Urine Color Urine Appearance (Clear) Urine pH (5.0-8.0) Ur Specific [place] (1.001-1.035) Urine Protein (Negative) Urine Glucose (UA) (Negative) Urine Ketones (Negative) Urine Blood (Negative) Urine Nitrite (Negative) Urine Bilirubin (Negative) Urine Urobilinogen (<2.0) mg/dL Ur Leukocyte Esterase (Negative) Urine RBC (0-5) /hpf Urine WBC (0-5) /hpf Ur Squamous Epith Cells (0-4) /hpf Disposition Clinical Impression: Pneumonia Disposition: ADMITTED IP TO THIS HOSP Referrals: Libra Umaña MD [Primary Care Provider] - 1-2 days Time of Disposition: 12:02
--- NOTE | 2018-04-22 10:40 | XR ---
EXAMINATION TYPE: XR chest 2V DATE OF EXAM: 04/22/2018 COMPARISON: 04/20/2018 TECHNIQUE: PA and lateral views submitted. HISTORY: Shortness of breath FINDINGS: Heart size is enlarged and there is diffuse interstitial pattern with basilar subsegmental consolidat ion. No pneumothorax. Arthropathy of the shoulders. Nonspecific densities overlying the left upper qu adrant of the abdomen. Correlate for surgical history. IMPRESSION: 1. Limited inspiration with the Global cardiomegaly. Interstitial pattern and basilar areas of infilt rate or atelectasis are stable. Differential diagnosis would include interstitial lung disease, mild venous congestion or pneumonitis in the differential diagnosis.
[2018-04-22 10:46] LABS: ALT 32 U/L (9-52); AST 32 U/L (14-36); Alkaline Phosphatase 84 U/L (38-126); Anion Gap 6 mmol/L; Blood Urea Nitrogen 21 mg/dL (7-17); Calcium 9.1 mg/dL (8.4-10.2); Carbon Dioxide 30 mmol/L (22-30); Chloride 103 mmol/L (98-107); Glucose 103 mg/dL (74-99); Potassium 4.3 mmol/L (3.5-5.1); Sodium 139 mmol/L (137-145); Total Bilirubin 0.4 mg/dL (0.2-1.3); Total Protein 6.7 g/dL (6.3-8.2)
[2018-04-22 10:51] LABS: Appearance,Urine Clear (Clear); Bilirubin,Urine Negative (Negative); Blood,Urine Negative (Negative); Color,Urine Yellow; Glucose,Urine (UA) Negative (Negative); Ketones,Urine Negative (Negative); Leukocyte Esterase,Urine Trace (Negative); Nitrite,Urine Negative (Negative); PH, Urine 5.5 (5.0-8.0); Protein,Urine Negative (Negative); RBC,Urine <1 /hpf (0-5); Specific Gravity,Urine 1.014 (1.001-1.035); Squamous Epithelial Cell,Urine 1 /hpf (0-4); Urobilinogen,Urine <2.0 mg/dL (<2.0); WBC,Urine 2 /hpf (0-5)
[2018-04-22 10:53] LABS: Basophils % (A) 0 %; Eosinophils # (A) 0.1 k/uL (0-0.7); Eosinophils % (A) 1 %; HCT 32.2 % (34.0-46.0); HGB 10.2 gm/dL (11.4-16.0); Hypochromasia Slight; Lymphocytes # (A) 0.7 k/uL (1.0-4.8); Lymphocytes % (A) 6 %; MCH 25.8 pg (25.0-35.0); MCHC 31.6 g/dL (31.0-37.0); MCV 81.6 fL (80.0-100.0); Mean Platelet Volume 7.6; Monocytes # (A) 0.6 k/uL (0-1.0); Monocytes % (A) 5 %; Neutrophils % (A) 87 %; Platelet Count 293 k/uL (150-450); RBC 3.95 m/uL (3.80-5.40); RDW 15.1 % (11.5-15.5); WBC 11.5 k/uL (3.8-10.6)
[2018-04-22] MEDS ORDERED: cefTRIAXone 2,000 MG in SODIUM CHLORIDE 0.9% 100 ML IVPB STA (12:02)
[2018-04-22] MEDS ORDERED: AZITHROMYCIN 500 MG in SODIUM CHLORIDE 0.9% 250 ML IVPB STA (12:02)
[2018-04-22] MEDS ORDERED: PNEUMONIA PROTOCOL UTILIZED 1 EACH MISC PO PRN (12:04)
[2018-04-22] MEDS ORDERED: ALBUTEROL NEBULIZED 2.5 MG/3 ML INHALATION PRN (12:04)
[2018-04-22] MEDS ORDERED: cefTRIAXone IN SWFI 2,000 MG/20 ML SYRINGE IVP ONE (12:15)
[2018-04-22] MEDS ORDERED: LORazepam 2 MG/ML INJ IV STA (15:20)
[2018-04-22] MEDS ORDERED: ZIPRASIDONE 20 MG VIAL IM STA (15:59)
[2018-04-22] MEDS ORDERED: HALOPERIDOL LACTATE 5 MG/ML 1 ML VIAL IM STA (16:08)
[2018-04-22] MEDS ORDERED: IPRATROPIUM-ALBUTEROL 3 ML NEB INHALATION PRN (19:24)
[2018-04-22] MEDS: SYMBICORT 160-4.5 MCG INHALER INHALATION SCH (20:14)
[2018-04-22] MEDS: IPRATROPIUM-ALBUTEROL 3 ML NEB INHALATION SCH (20:14)
[2018-04-22] MEDS: FUROSEMIDE 20 MG TAB PO SCH ×2 (20:31→20:37)
[2018-04-22] MEDS: CARVEDILOL 12.5 MG TAB PO SCH (20:31)
[2018-04-22] MEDS: POTASSIUM CHLORIDE ER 10 MEQ TAB.ER.PRT PO SCH (20:32)
[2018-04-22] MEDS ORDERED: MIRTAZAPINE 15 MG TAB PO SCH (21:00)
[2018-04-22] MEDS ORDERED: ATORVASTATIN 10 MG TAB PO SCH (21:00)
[2018-04-22] MEDS ORDERED: rOPINIRole HCL 4 MG TABLET PO SCH (21:00)
[2018-04-22] MEDS ORDERED: QUEtiapine 50 MG TAB PO SCH (21:00)
[2018-04-22] MEDS: hydrALAZINE HCL 50 MG TAB PO SCH (22:34)
--- NOTE | 2018-04-22 23:23 | HP ---
HISTORY AND PHYSICAL CHIEF COMPLAINTS: Shortness of breath and cough. HISTORY OF PRESENT ILLNESS: This 58-year-old woman with a past history of asthma, CHF, COPD, diabetes mellitus, hypertension, hyperlipidemia is being followed by Dr. Umaña in the outpatient setting, was not feeling well over the past several days. Patient had shortness of breath and cough and sputum. Patient was recently admitted with bibasilar pneumonia and was admitted for further evaluation, but subsequently patient went left the hospital AGAINST MEDICAL ADVICE. There is no history of fever, rigors. No history of headache, loss of consciousness, seizures. The patient apparently had psychotic symptoms in the ER, also. The patient has used multiple medications, including Geodon, which provides some relief at this time. PAST MEDICAL HISTORY: Asthma, CHF, COPD, diabetes mellitus, GERD, hypertension, hyperlipidemia, history of DJD, history of bariatric surgery, history of anxiety, bipolar depression. MEDICATIONS PRIOR TO ADMISSION: Include home medications are: 1. Requip 4 mg q.h.s. and 3 mg p.o. daily. 2. Apresoline 50 mg p.o. t.i.d. 3. Xarelto 20 mg p.o. daily. Seroquel 50 mg q.h.s. 4. Lyrica 75 mg p.o. daily. 5. K-Dur 10 mg p.o. b.i.d. 6. Omeprazole 20 mg p.o. daily. 7. Multivitamins 1 p.o. daily. 8. Remeron 30 mg q.h.s. 9. Myrbetriq 50 mg p.o. daily. 10.Claritin 10 mg p.o. daily. 11.Synthroid 137 mcg p.o. daily. 12.Lasix 20 mg p.o. daily. 13.Cymbalta 60 mg p.o. daily. 14.Vitamin D3 10,000 daily. 15.Coreg 25 mg p.o. b.i.d. 16.Lipitor 10 mg q.h.s. 17.Ventolin HFA 1-2 puffs q.i.d. p.r.n. 18.Tylenol 500 mg every 6 hours p.r.n. ALLERGIES: Multiple allergies, including BUSPIRONE, IODINE, PENICILLIN and SULFA, and VISTARIL. FAMILY HISTORY: History of lung cancer in the family. SOCIAL HISTORY: No history of smoking. Occasional alcohol intake. REVIEW OF SYSTEMS: Review of systems could not be taken. The patient is currently sedated at this time with Morro. EXAM: Pulse is 93, blood pressure 161/68, respirations 16, temperature 97.9, pulse ox 96% on room air. HEENT: Conjunctivae normal. Oral mucosa moist. NECK: No jugular venous distention. No carotid bruits. No lymph node enlargement. CARDIOVASCULAR: S1, S2 muffled. RESPIRATORY: Breath sounds diminished in the bases. A few scattered rhonchi and crackles. Expiratory wheezing also present. ABDOMEN: Soft, obese, nontender. No mass palpable. LEGS: No edema. No swelling. NERVOUS SYSTEM: Higher functions as mentioned earlier. Moves all 4 limbs. No focal motor or sensory deficits. LYMPHATIC: No lymphadenopathy in neck or axillae. SKIN: No ulcer, rash or bleeding. LABS: WBC 7.2, hemoglobin is 10.2. Sodium 139, potassium 4.3. ASSESSMENT: 1. Acute bilateral pneumonia, possibly gram-negative. 2. Acute psychosis. 3. History of asthma acute exacerbation. 4. History of congestive heart failure. 5. Chronic obstructive pulmonary disease. 6. Diabetes mellitus type 2. 7. Gastroesophageal reflux disease. 8. Hypertension. 9. Hyperlipidemia. 10.History of degenerative joint disease. 11.History of pneumonia. 12.History of pulmonary embolus. 13.History of noncompliance. 14.Obesity with a body mass index of 66.6. 15.History of bariatric surgery. 16.Anxiety, bipolar depression, panic disorder and posttraumatic stress disorder. 17.Borderline personality disorder. RECOMMENDATIONS AND DISCUSSION: In this 58-year-old woman who presented with multiple complex medical issues, will initiate broad-spectrum IV antibiotics Rocephin and Zithromax, bronchodilators. I would recommend also continue with Morro, psych consultation as well as a pulmonary consultation with Dr. Jacob. The overall prognosis is guarded. I also evaluated the home medications and medication reconciliation was done. The prognosis is extremely guarded because of multiple complex medical issues as detailed above. DVT prophylaxis and further recommendations to follow. We will obtain cultures as well. Further recommendations to follow. A copy of this dictation will be forwarded to Dr. Umaña, who is the primary physician. MMODL / IJN: [id number] / MTDD
[2018-04-23] MEDS ORDERED: LORazepam 2 MG/ML INJ IV STA (05:17)
[2018-04-23] MEDS ORDERED: ACETAMINOPHEN IV (For NPO) 1,000 MG in EMPTY BAG 1 BAG IVPB PRN (05:18)
[2018-04-23] MEDS: PREGABALIN 75 MG CAP PO SCH ×2 (05:28→08:41)
[2018-04-23] MEDS ORDERED: LEVOTHYROXINE 137 MCG TAB PO SCH (06:30)
[2018-04-23 07:17] VITALS: BP 125/75; RESP 22; TEMP 98.2
[2018-04-23] MEDS ORDERED: PANTOPRAZOLE 40 MG TABLET PO SCH (07:30)
[2018-04-23] MEDS: IPRATROPIUM-ALBUTEROL 3 ML NEB INHALATION SCH ×2 (08:29→11:47)
[2018-04-23] MEDS: SYMBICORT 160-4.5 MCG INHALER INHALATION SCH (08:29)
[2018-04-23] MEDS: CARVEDILOL 12.5 MG TAB PO SCH (08:34)
[2018-04-23] MEDS: hydrALAZINE HCL 50 MG TAB PO SCH (08:34)
[2018-04-23] MEDS: POTASSIUM CHLORIDE ER 10 MEQ TAB.ER.PRT PO SCH (08:37)
[2018-04-23] MEDS: FUROSEMIDE 20 MG TAB PO SCH (08:37)
[2018-04-23] MEDS ORDERED: LORATADINE 10 MG TAB PO SCH (09:00)
[2018-04-23] MEDS ORDERED: RIVAROXABAN 20 MG TAB PO SCH (09:00)
[2018-04-23] MEDS ORDERED: DULoxetine HCL 60 MG CAPSULE.DR PO SCH (09:00)
[2018-04-23] MEDS ORDERED: CHOLECALCIFEROL 1,000 UNIT TAB PO SCH (09:00)
[2018-04-23] MEDS ORDERED: PREGABALIN 75 MG CAP PO SCH (09:00)
[2018-04-23] MEDS ORDERED: Mirabegron [Myrbetriq] 50 MG PO SCH (09:00)
[2018-04-23] MEDS ORDERED: cefTRIAXone IN SWFI 2,000 MG/20 ML SYRINGE IVP SCH (09:00)
[2018-04-23 11:59] VITALS: PULSE 77
[2018-04-23] MEDS ORDERED: MULTIVITAMINS, THERA 1 EACH TAB PO SCH (12:00)
[2018-04-23] MEDS ORDERED: LEVOFLOXACIN 500MG-D5W PMX 500 MG in DEXTROSE/WATER 1 100ML.BAG IVPB SCH (14:00)
--- NOTE | 2018-04-23 15:08 | P.CNPUL ---
History of Present Illness Consult date: 04/23/18 Requesting physician: Ashanti Doshi Reason for consult: dyspnea Chief complaint: Fever, chills, shortness of breath History of present illness: This is a 58-year-old female patient who follows with Dr. Chamberlain as her primary care physician. She is a history of pulmonary embolism anticoagulated with Xarelto, diabetes mellitus, obesity, gastroesophageal reflux disease, hyperlipidemia, hypothyroidism, osteoarthritis, chronic lumbar spine pain, borderline personality disorder, morbid obesity. She follows with Dr. Means in our office for chronic dyspnea. Pulmonary function testing reveals mainly a restrictive lung disease. He has her set up to be seen at the [facility] next month for an evaluation for her ongoing complaints of shortness of breath despite PFTs revealing nondiagnostic obstructive pulmonary disease. He presented here to the emergency room yesterday with complaints of fever, chills, shortness of breath. Chest x-ray reveals limited inspiration. There is global cardiomegaly with basilar areas of atelectasis. No clear indication of pneumonia. She did have a T-max of 100.5. Slightly tachycardic on admission. No leukocytosis. No urinary tract infection symptoms. Urinalysis clear. The patient is seen today in consultation on the regular medical floor. She is awake and alert in no acute distress. She currently denies any shortness of breath, cough or congestion. No chills or night sweats. She states she is back to her baseline is quite adamant about going home. She was initiated on bronchodilators, Symbicort and empiric antibiotics. Review of Systems 14 point review of system was conducted. All negative other than as mentioned in the HPI. Past Medical History Past Medical History: Asthma, Heart Failure, COPD, Diabetes Mellitus, GERD/ Reflux, Hyperlipidemia, Hypertension, Musculoskeletal Disorder, Osteoarthritis ( OA), Pneumonia, Pulmonary Embolus (PE), Thyroid Disorder Additional Past Medical History / Comment(s): Pt recently admitted to [facility] on with exacerbation COPD, asthma and possible pneumonia. Other hx: NIDDM type II but pt states no longer has to monitor blood sugars at home, chronic low back pain, herniated discs, RLS, leg edema, recent L leg cellulitis, anemia , gout bilateral feet, hypothyroid, UTIs History of Any Multi-Drug Resistant Organisms: None Reported Past Surgical History: Bariatric Surgery, Hernia Repair, Orthopedic Surgery Additional Past Surgical History / Comment(s): Total Right knee replacement, 3 abdominal hernia repairs, left hip repair d/t fracture, gastric bypass/revision , colonoscopy. Past Anesthesia/Blood Transfusion Reactions: No Reported Reaction Smoking Status: Never smoker - Past Family History Mother Family Medical History: Cancer Additional Family Medical History / Comment(s): lung cancer Father Family Medical History: Diabetes Mellitus Additional Family Medical History / Comment(s): "my dad from a blood clot that traveled from his leg to his lung and also caused a heart attack." Brother(s) Family Medical History: Diabetes Mellitus Sister(s) Additional Family Medical History / Comment(s): "her heart races too fast" Medications and Allergies Home Medications Medication Instructions Recorded Confirmed Type Mirabegron [Myrbetriq] 50 mg PO DAILY 05/23/17 04/22/18 History Atorvastatin [Lipitor] 10 mg PO HS 06/07/17 04/22/18 History Carvedilol [Coreg] 25 mg PO BID 06/07/17 04/22/18 History Cholecalciferol [Vitamin D3] 10,000 unit PO DAILY 06/07/17 04/22/18 History Loratadine [Claritin] 10 mg PO DAILY 06/07/17 04/22/18 History Multivitamins, Thera [Multivitamin 1 tab PO DAILY 06/07/17 04/22/18 History (formulary)] Omeprazole 20 mg PO DAILY 06/07/17 04/22/18 History Levothyroxine Sodium [Synthroid] 137 mcg PO DAILY 10/20/17 04/22/18 History hydrALAZINE HCL [Apresoline] 50 mg PO TID 10/20/17 04/22/18 History Rivaroxaban [Xarelto] 20 mg PO DAILY 90 Days #90 tab 11/18/17 04/22/18 Rx Furosemide [Lasix] 20 mg PO BID 01/08/18 04/22/18 History Potassium Chloride ER [K-Dur 10] 10 meq PO BID 03/19/18 04/22/18 History Acetaminophen Tab [Tylenol] 500 mg PO Q6HR PRN tab 03/29/18 04/22/18 Rx DULoxetine HCL [Cymbalta] 60 mg PO DAILY 03/31/18 04/22/18 History Mirtazapine 30 mg PO HS 03/31/18 04/22/18 History Pregabalin [Lyrica] 75 mg PO DAILY 03/31/18 04/22/18 History QUEtiapine [SEROquel] 50 mg PO HS 03/31/18 04/22/18 History rOPINIRole HCL 3 mg PO DAILY 03/31/18 04/22/18 History rOPINIRole HCL 4 mg PO HS 03/31/18 04/22/18 History Albuterol Inhaler [Ventolin Hfa 2 puff INHALATION RT-QID #0 04/23/18 04/22/18 Rx Inhaler] Levofloxacin [Levaquin] 500 mg PO DAILY #7 tab 04/23/18 Rx Allergies Allergy/AdvReac Type Severity Reaction Status Date / Time buspirone [From BuSpar] Allergy Unknown Verified 04/22/18 09:48 haloperidol [From Haldol] Allergy Swelling Verified 04/22/18 09:48 iodine Allergy Swelling Verified 04/22/18 09:48 Penicillins Allergy Swelling Verified 04/22/18 09:48 prochlorperazine Allergy Rash/Hives Verified 04/22/18 09:48 Sulfa (Sulfonamide Allergy Rash/Hives Verified 04/22/18 09:48 Antibiotics) Tetanus Vaccines and Toxoid Allergy Rash/Hives Verified 04/22/18 09:48 [Tetanus Vaccines & Toxoid] trifluoperazine HCl Allergy Unknown Verified 04/22/18 09:48 [From Stelazine] hydroxyzine [From Vistaril] AdvReac Rash/Hives Verified 04/22/18 09:48 Physical Exam Vitals: Vital Signs Temp Pulse Pulse Resp BP BP Pulse Ox 04/23/18 11:59 77 04/23/18 11:48 80 04/23/18 06:00 98.2 F 85 22 125/75 92 L 04/22/18 22:00 97.9 F 89 20 146/89 91 L 04/22/18 21:37 97.9 F 93 18 161/68 96 04/22/18 20:37 98 18 160/82 96 04/22/18 20:18 80 04/22/18 20:14 78 18 04/22/18 18:48 98.4 F 92 18 155/77 96 Intake and Output 04/22/18 04/23/18 04/23/18 22:59 06:59 14:59 Intake Total 0 240 400 Balance 0 240 400 Intake: Oral 0 240 400 Other: Voiding Method Bedside Commode # Voids 1 4 1 Weight 179.396 kg - Constitutional General appearance: morbidly obese - EENT Eyes: EOMI, PERRLA ENT: hearing grossly normal Ears: bilateral: normal - Neck Neck: normal ROM Carotids: bilateral: upstroke normal Thyroid: bilateral: normal size - Respiratory Respiratory: bilateral: CTA - Cardiovascular Rhythm: regular Heart sounds: normal: S1, S2 - Gastrointestinal General gastrointestinal: normal bowel sounds - Integumentary Integumentary: normal turgor - Neurologic Neurologic: CNII-XII intact - Musculoskeletal Musculoskeletal: generalized weakness - Psychiatric Psychiatric: A&O x's 3 Results - Laboratory Findings CBC and BMP: 04/22/18 10:20 04/22/18 10:20 Abnormal lab findings: Abnormal Labs 04/22/18 04/22/18 04/22/18 10:10 10:20 10:20 WBC 11.5 H Hgb 10.2 L Hct 32.2 L Neutrophils # 10.0 H Lymphocytes # 0.7 L BUN 21 H Glucose 103 H Ur Leukocyte Esterase Trace H - Diagnostic Findings Chest x-ray: image reviewed Assessment and Plan Assessment: Impression: #1 Dyspnea secondary to basilar atelectasis with a history of chronic and ongoing dyspnea of unclear etiology. To be evaluated at the [facility]. Office PFTs reveal restrictive lung disease. No significant obstructive lung disease. #2 Morbid obesity. #3 Bipolar disorder. #4 Personality disorder. #5 Diabetes mellitus, type II. #6 Hypertension. #7 Hyperlipidemia. #8 History of pulmonary embolism, anticoagulated with Xarelto. #9 Degenerative joint disease. #10 Poor overall functional performance based on the above-mentioned multiple comorbidities. Plan: The patient was seen and evaluated by Dr. Jacob. Chest x-ray and labs were reviewed. Doubt any acute pneumonia. Would recommend discharging the patient home on bronchodilators, 5 days of Augmentin. She will keep her scheduled appointment at the [facility] for her chronic dyspnea workup. She' ll also keep her scheduled appointment with Dr. Means. She is however encouraged to call sooner with any recurrence of symptoms or other questions or concerns. I, the cosigning physician, performed a history & physical examination of the patient. Lungs sounds are clear. Maintaining good O2 saturations in the 90s on room air. I discussed the assessment and plan of care with my nurse practitioner, Desiree Cedeno. I attest to the above consultation as dictated by her. Time with Patient: Greater than 30
[2018-04-23] MEDS ORDERED: AZITHROMYCIN 500 MG in SODIUM CHLORIDE 0.9% 250 ML IVPB SCH (16:00)
--- NOTE | 2018-04-23 18:15 | DS ---
DISCHARGE SUMMARY DATE OF SERVICE: 04/23/2018. FINAL DIAGNOSES: 1. Acute bilateral pneumonia possibly gram-negative. 2. Acute psychosis. 3. Asthma. 4. Chronic obstructive pulmonary disease acute exacerbation. 5. History of congestive heart failure. 6. Chronic obstructive pulmonary disease. 7. Diabetes mellitus type 2. 8. Gastroesophageal reflux disease. 9. Hypertension. 10.Hyperlipidemia. 11.History of degenerative joint disease. 12.History of pneumonia. 13.History of pulmonary embolus. 14.History of noncompliance. 15.Obesity with a body mass index of 66.6. 16.History of bariatric surgery. 17.Anxiety and bipolar depression, panic disorder, posttraumatic stress disorder. 18.Borderline personality disorder. DISCHARGE DISPOSITION: The patient will be discharged in stable condition with guarded prognosis after cleared by Dr. Jacob. HISTORY OF PRESENT ILLNESS: This 58-year-old woman with a past medical history of multiple medical problems was admitted with acute bilateral pneumonia as well as acute psychosis. The patient was treated with bronchodilators and antibiotics and Dr. Jacob saw the patient, recommended the patient be discharged and continue to follow up in the outpatient setting with Dr. Means. EXAM: Vitals are stable. CARDIOVASCULAR: S1, S2 muffled. RESPIRATORY: A few scattered rhonchi. Abdomen is soft, nontender. The patient also had some features of psychosis in the ER and was given Geodon 20 mg with significant relief. Recommend close followup with Psych in the outpatient setting. The patient also had [facility] appointment at Dr. Means's recommendation. DISCHARGE ADVICE AND MEDICATIONS: 1. Diet is cardiac. 2. Activity limited until followup. 3. Follow up with Dr. Umaña in 2-3 days. 4. Follow up at [facility] as advised. 5. Follow up with Dr. Means as recommended. 6. Medications: a. Lipitor 10 mg q.h.s. b. Coreg 25 mg p.o. b.i.d. c. Vitamin D3 10,000 b.i.d. d. Cymbalta 60 mg p.o. daily. e. Lasix 20 mg b.i.d. f. Apresoline 50 mg t.i.d. g. Synthroid 135 mcg p.o. daily. h. Claritin 10 mg p.o. daily. i. Myrbetriq 50 mg p.o. daily. j. Remeron 30 mg q.h.s. k. Multivitamins 1 p.o. daily. l. Omeprazole 20 mg daily. m. K-Dur 10 mg p.o. b.i.d. n. Lyrica 75 mg p.o. daily. o. Seroquel 50 mg q.h.s. p. Requip 3 mg p.o. daily and 4 mg q.h.s. q. Tylenol 500 mg every 6 hours p.r.n. r. Ventolin 2 puffs q.i.d. and p.r.n. s. Levaquin 500 mg p.o. daily for 7 days. t. Xarelto 20 mg p.o. daily. Once again, the patient will be discharged in stable condition with a guarded prognosis. MMMIGUE / IJN: [id number] /
== END 2018-04-23 14:15 | disposition home or self-care (01) ==
LOC: EC 09:27 → 4MS4W 12:13
PROVIDERS: ADMIT Internal Medicine; ATTEND Internal Medicine
DX: J18.9 Pneumonia, unspecified organism (principal); J44.1 Chronic obstructive pulmonary disease with (acute) exacerbation; J44.0 Chronic obstructive pulmonary disease with (acute) lower respiratory infection; F23 Brief psychotic disorder; I11.0 Hypertensive heart disease with heart failure; I50.9 Heart failure, unspecified; E11.9 Type 2 diabetes mellitus without complications; K21.9 Gastro-esophageal reflux disease without esophagitis; E03.9 Hypothyroidism, unspecified; E78.5 Hyperlipidemia, unspecified; M19.90 Unspecified osteoarthritis, unspecified site; E66.01 Morbid (severe) obesity due to excess calories; Z68.44 Body mass index [BMI] 60.0-69.9, adult; M51.26 Other intervertebral disc displacement, lumbar region; F43.10 Post-traumatic stress disorder, unspecified; F60.3 Borderline personality disorder; F41.0 Panic disorder [episodic paroxysmal anxiety]; F41.9 Anxiety disorder, unspecified; F31.9 Bipolar disorder, unspecified; M10.9 Gout, unspecified; G25.81 Restless legs syndrome; D64.9 Anemia, unspecified; G89.29 Other chronic pain; Z79.01 Long term (current) use of anticoagulants; Z79.890 Hormone replacement therapy; Z79.899 Other long term (current) drug therapy; Z88.0 Allergy status to penicillin; Z88.7 Allergy status to serum and vaccine; Z88.2 Allergy status to sulfonamides; Z88.8 Allergy status to other drugs, medicaments and biological substances; Z91.048 Other nonmedicinal substance allergy status; Z96.651 Presence of right artificial knee joint; Z98.84 Bariatric surgery status; Z87.01 Personal history of pneumonia (recurrent); Z86.711 Personal history of pulmonary embolism; Z91.19 Patient's noncompliance with other medical treatment and regimen; Z87.440 Personal history of urinary (tract) infections; Z80.1 Family history of malignant neoplasm of trachea, bronchus and lung; Z83.3 Family history of diabetes mellitus; Z82.49 Family history of ischemic heart disease and other diseases of the circulatory system
CPT/HCPCS: 99285 ×2; 96365 ×2; 96366 ×2; 96375 ×3; 96372 ×3; 96376; 36415; 94640 ×2; 80053; 83605; 85025; 81001; 87040; 87086; 71046; G0378 ×2; J2060 ×2; J1630; J0456; J0696 ×2; J3486

== ENCOUNTER 2018-04-29 15:30 | Emergency (ER) | payer MEDICARE, OTHER ==
[2018-04-29 15:35] VITALS: BP 169/93; PULSE 84; RESP 18; TEMP 98
--- NOTE | 2018-04-29 16:10 | ED ---
General Adult HPI - General Chief complaint: Extremity Injury, Lower Stated complaint: LEG PAIN Time Seen by Provider: 04/29/18 15:54 Source: patient, EMS, RN notes reviewed Mode of arrival: EMS Limitations: no limitations - History of Present Illness Initial comments: This is a 58-year-old female who presents to the emergency department with chief complaint of bilateral leg swelling and pain. She states that for the last few days her lower legs have been painful and the pain radiates up to her groin. She states that her legs are swollen. Patient denies any recent fevers or chills, chest pain, abdominal pain, nausea or vomiting. She denies any numbness or tingling. She denies any injuries or trauma. - Related Data Home Medications Medication Instructions Recorded Confirmed Mirabegron [Myrbetriq] 50 mg PO DAILY 05/23/17 04/29/18 Atorvastatin [Lipitor] 10 mg PO HS 06/07/17 04/29/18 Carvedilol [Coreg] 25 mg PO BID 06/07/17 04/29/18 Cholecalciferol [Vitamin D3] 10,000 unit PO DAILY 06/07/17 04/29/18 Loratadine [Claritin] 10 mg PO DAILY 06/07/17 04/29/18 Multivitamins, Thera [Multivitamin 1 tab PO DAILY 06/07/17 04/29/18 (formulary)] Omeprazole 20 mg PO DAILY 06/07/17 04/29/18 Levothyroxine Sodium [Synthroid] 137 mcg PO DAILY 10/20/17 04/29/18 hydrALAZINE HCL [Apresoline] 50 mg PO TID 10/20/17 04/29/18 Furosemide [Lasix] 40 mg PO BID 01/08/18 04/29/18 Potassium Chloride ER [K-Dur 10] 10 meq PO BID 03/19/18 04/29/18 DULoxetine HCL [Cymbalta] 60 mg PO DAILY 03/31/18 04/29/18 Mirtazapine 30 mg PO HS 03/31/18 04/29/18 Pregabalin [Lyrica] 75 mg PO BID 03/31/18 04/29/18 QUEtiapine [SEROquel] 50 mg PO HS 03/31/18 04/29/18 rOPINIRole HCL 3 mg PO DAILY 03/31/18 04/29/18 rOPINIRole HCL 4 mg PO HS 03/31/18 04/29/18 Fluticasone Nasal [place] [Flonase 1 spray EA NOSTRIL DAILY PRN 04/29/18 04/29/18 Nasal [place]] Gabapentin [Neurontin] 100 mg PO BID 04/29/18 04/29/18 Ipratropium-Albuterol Nebulize 3 ml INHALATION RT-QID 04/29/18 04/29/18 [Duoneb 0.5 mg-3 mg/3 ml Soln] Nystatin 100,000 Unit/gm Powd 1 applic TOPICAL BID 04/29/18 04/29/18 [Mycostatin Powder] predniSONE 40 mg PO DAILY 04/29/18 04/29/18 Previous Rx's Medication Instructions Recorded Rivaroxaban [Xarelto] 20 mg PO DAILY 90 Days #90 tab 11/18/17 Acetaminophen Tab [Tylenol] 500 mg PO Q6HR PRN tab 03/29/18 Albuterol Inhaler [Ventolin Hfa 2 puff INHALATION RT-QID #0 04/23/18 Inhaler] Allergies Allergy/AdvReac Type Severity Reaction Status Date / Time buspirone [From BuSpar] Allergy Unknown Verified 04/29/18 15:53 haloperidol [From Haldol] Allergy Swelling Verified 04/29/18 15:53 iodine Allergy Swelling Verified 04/29/18 15:53 Penicillins Allergy Swelling Verified 04/29/18 15:53 prochlorperazine Allergy Rash/Hives Verified 04/29/18 15:53 Sulfa (Sulfonamide Allergy Rash/Hives Verified 04/29/18 15:53 Antibiotics) Tetanus Vaccines and Toxoid Allergy Rash/Hives Verified 04/29/18 15:53 [Tetanus Vaccines & Toxoid] trifluoperazine HCl Allergy Unknown Verified 04/29/18 15:53 [From Stelazine] hydroxyzine [From Vistaril] AdvReac Rash/Hives Verified 04/29/18 15:53 Review of Systems ROS Statement: Those systems with pertinent positive or pertinent negative responses have been documented in the HPI. ROS Other: All systems not noted in ROS Statement are negative. Past Medical History Past Medical History: Asthma, Heart Failure, COPD, Diabetes Mellitus, GERD/ Reflux, Hyperlipidemia, Hypertension, Musculoskeletal Disorder, Osteoarthritis ( OA), Pneumonia, Pulmonary Embolus (PE), Thyroid Disorder Additional Past Medical History / Comment(s): Pt recently admitted to [facility] on with exacerbation COPD, asthma and possible pneumonia. Other hx: NIDDM type II but pt states no longer has to monitor blood sugars at home, chronic low back pain, herniated discs, RLS, leg edema, recent L leg cellulitis, anemia , gout bilateral feet, hypothyroid, UTIs History of Any Multi-Drug Resistant Organisms: None Reported Past Surgical History: Bariatric Surgery, Hernia Repair, Orthopedic Surgery Additional Past Surgical History / Comment(s): Total Right knee replacement, 3 abdominal hernia repairs, left hip repair d/t fracture, gastric bypass/revision , colonoscopy. Past Anesthesia/Blood Transfusion Reactions: No Reported Reaction Past Psychological History: Anxiety, Bipolar, Depression, Panic Disorder, PTSD Smoking Status: Never smoker Past Alcohol Use History: None Reported Past Drug Use History: None Reported - Past Family History Mother Family Medical History: Cancer Additional Family Medical History / Comment(s): lung cancer Father Family Medical History: Diabetes Mellitus Additional Family Medical History / Comment(s): "my dad from a blood clot that traveled from his leg to his lung and also caused a heart attack." Brother(s) Family Medical History: Diabetes Mellitus Sister(s) Additional Family Medical History / Comment(s): "her heart races too fast" General Exam - General Exam Comments Initial Comments: General: Awake and alert, well-developed; in no apparent distress. Obese white female lying on ED stretcher. Uncooperative. HEENT: Head atraumatic, normocephalic. Pupils are equal, round and reactive to light. Extraocular movements intact. Oropharynx moist without erythema or exudate. Neck: Supple. Normal ROM. Cardiovascular: Regular rate and rhythm. No murmurs, rubs or gallops. Chest symmetrical. Respiratory: Lungs clear to auscultation bilaterally. No wheezes, rales or rhonchi. Normal respiratory effort with no use of accessory muscles. Abdomen: Obese, soft, non-tender. No rigidity, rebound or guarding. Normal bowel sounds in all 4 quadrants. Musculoskeletal: Normal ROM bilateral upper and lower extremities. Ambulating normally with a walker. No calf tenderness bilaterally. Skin: [place], warm and dry without rashes or lesions. No bilateral lower extremity edema. No erythema, ecchymosis or warmth is noted. Neurological: Alert and oriented x3. CN II-XII grossly intact. Speech is fluent and answers are appropriate. No focal neuro deficits. Limitations: no limitations Course Vital Signs 04/29/18 15:33 Temperature 98.0 F Pulse Rate 84 Respiratory 18 Rate Blood Pressure 169/93 O2 Sat by Pulse 95 Oximetry Medical Decision Making - Medical Decision Making This is a 58-year-old female who presents to the emergency department with chief complaint of bilateral leg pain and swelling. Patient states that this has been present for a few days. She denies any injuries or trauma. Patient did ambulate into the emergency department on her own by using her walker. There is no evidence of lower extremity edema. No erythema, warmth or calf tenderness. Pedal pulses are 2+ equal and palpable bilaterally. Patient denies chest pain or shortness breath. Recommended following up with her primary care provider tomorrow. She will be discharged home at this time. Her vital signs are stable and she is in no acute distress. Disposition Clinical Impression: Bilateral leg pain Disposition: HOME SELF-CARE Condition: Good Instructions: Leg Pain (ED) Additional Instructions: Please follow up with primary care provider within 1-2 days. Return to emergency department if symptoms should worsen or any concerns arise. Is patient prescribed a controlled substance at d/c from ED?: No Referrals: Libra Umaña MD [Primary Care Provider] - 1-2 days Time of Disposition: 16:09
== END 2018-04-29 16:44 | disposition home or self-care (01) ==
LOC: EC 15:30
DX: M79.604 Pain in right leg (principal); M79.605 Pain in left leg; I11.0 Hypertensive heart disease with heart failure; I50.9 Heart failure, unspecified; J44.9 Chronic obstructive pulmonary disease, unspecified; K21.9 Gastro-esophageal reflux disease without esophagitis; E78.5 Hyperlipidemia, unspecified; I10 Essential (primary) hypertension; E07.9 Disorder of thyroid, unspecified; G25.81 Restless legs syndrome; F41.9 Anxiety disorder, unspecified; F31.9 Bipolar disorder, unspecified; F43.10 Post-traumatic stress disorder, unspecified; Z86.711 Personal history of pulmonary embolism; Z98.84 Bariatric surgery status; Z96.651 Presence of right artificial knee joint; Z98.890 Other specified postprocedural states; Z79.52 Long term (current) use of systemic steroids; Z79.899 Other long term (current) drug therapy; Z88.0 Allergy status to penicillin; Z88.2 Allergy status to sulfonamides; Z88.7 Allergy status to serum and vaccine; Z88.8 Allergy status to other drugs, medicaments and biological substances
CPT/HCPCS: 99283

== ENCOUNTER → 2018-06-05 | Outpatient (CLI) | payer MEDICARE, OTHER ==
[2018-06-05 10:38] LABS: HCT 31.5 % (34.0-46.0); HGB 9.5 gm/dL (11.4-16.0); Hypochromasia Slight; MCH 23.9 pg (25.0-35.0); MCHC 30.2 g/dL (31.0-37.0); MCV 79.2 fL (80.0-100.0); Mean Platelet Volume 7.3; Platelet Count 330 k/uL (150-450); RBC 3.98 m/uL (3.80-5.40); RDW 15.6 % (11.5-15.5); WBC 6.8 k/uL (3.8-10.6)
[2018-06-05 10:44] LABS: Potassium 3.8 mmol/L (3.5-5.1)
== END | disposition home or self-care (01) ==
LOC: LABPAT 08:52
PROVIDERS: ATTEND Internal Medicine Interventional Cardiology
DX: Z01.812 Encounter for preprocedural laboratory examination (principal); I10 Essential (primary) hypertension; E78.1 Pure hyperglyceridemia; R06.02 Shortness of breath
CPT/HCPCS: 36415; 80051; 82565; 84520; 85027

== ENCOUNTER 2018-06-06 12:59 | Emergency (ER) | payer MEDICARE, OTHER ==
[2018-06-06 15:36] LABS: Basophils % (A) 0 %; Eosinophils # (A) 0.1 k/uL (0-0.7); Eosinophils % (A) 1 %; HCT 30.3 % (34.0-46.0); HGB 9.7 gm/dL (11.4-16.0); Hypochromasia Slight; Lymphocytes # (A) 0.9 k/uL (1.0-4.8); Lymphocytes % (A) 10 %; MCH 25.1 pg (25.0-35.0); MCHC 32.1 g/dL (31.0-37.0); MCV 78.3 fL (80.0-100.0); Mean Platelet Volume 7.3; Monocytes # (A) 0.5 k/uL (0-1.0); Monocytes % (A) 5 %; Neutrophils # (A) 7.7 k/uL (1.3-7.7); Neutrophils % (A) 81 %; Platelet Count 332 k/uL (150-450); RBC 3.87 m/uL (3.80-5.40); RDW 15.7 % (11.5-15.5); WBC 9.5 k/uL (3.8-10.6)
[2018-06-06] MEDS ORDERED: HYDROmorphone 1 MG/ML 1 ML SYRINGE IVP STA (15:50)
[2018-06-06] MEDS ORDERED: LORazepam 2 MG/ML INJ IV STA (15:50)
[2018-06-06 16:01] LABS: Albumin 4.1 g/dL (3.5-5.0); Calcium 9.4 mg/dL (8.4-10.2); Magnesium 1.8 mg/dL (1.6-2.3); Potassium 3.8 mmol/L (3.5-5.1); Total Bilirubin 0.3 mg/dL (0.2-1.3)
[2018-06-06 16:08] LABS: Creatine Kinase MB 0.6 ng/mL (0.0-2.4)
[2018-06-06 16:19] LABS: INR 1.1 (<1.2); Partial Thromboplastin Time 29.1 sec (22.0-30.0); Prothrombin Time 10.5 sec (9.0-12.0)
--- NOTE | 2018-06-06 16:24 | XR ---
EXAMINATION TYPE: XR chest 2V DATE OF EXAM: 06/06/2018 COMPARISON: 04/22/2018 HISTORY: Cough TECHNIQUE: Frontal and lateral views of the chest are obtained. FINDINGS: There is limited inspiration. Again there is pronounced interstitial lung markings. Costop hrenic angles are suboptimally evaluated given patient body habitus. There is no focal air space opac ity, pleural effusion, or pneumothorax seen. The cardiac silhouette size is enlarged. IMPRESSION: Limited evaluation given patient body habitus. Low lung volumes creating accentuation of the pulmonary vasculature. No gross evidence of acute cardiopulmonary process.
[2018-06-06 16:28] LABS: D-Dimer 0.74 mg/L FEU (<0.60)
--- NOTE | 2018-06-06 16:47 | US ---
EXAMINATION TYPE: US venous doppler duplex LE DATE OF EXAM: 06/06/2018 4:35 PM COMPARISON: CLINICAL HISTORY: Pain. Bilateral leg swelling. Pain. On blood thinners. Hx of PE. SIDE PERFORMED: Bilateral TECHNIQUE: The lower extremity deep venous system is examined utilizing real time linear array sonog rizwan with graded compression, doppler sonography and color-flow sonography. VESSELS IMAGED: External Iliac Vein (EIV) Common Femoral Vein Deep Femoral Vein Greater Saphenous Vein * Femoral Vein Popliteal Vein Small Saphenous Vein * Proximal Calf Veins (* superficial vessels) Limited exam due to patient body habitus Right Leg: Negative for acute DVT Left Leg: Negative for acute DVT IMPRESSION: No evidence of deep venous thrombosis in both legs.
--- NOTE | 2018-06-06 16:58 | ED ---
Extremity Problem HPI - General Chief complaint: Extremity Problem,Nontraumatic Stated complaint: Leg pain Time Seen by Provider: 06/06/18 14:43 Source: patient, RN notes reviewed Mode of arrival: wheelchair Limitations: no limitations - History of Present Illness Initial comments: This is a 58-year-old female with a history of chronic lower extremity pain who states she had increased pain with some swelling to her lower extremities. This is better medication. She does states she has a heart cath scheduled for the this month. She denies any fevers chills nausea vomiting sweats or any other modifying symptoms at this time. MD Complaint: extremity pain - Related Data Home Medications Medication Instructions Recorded Confirmed Mirabegron [Myrbetriq] 50 mg PO DAILY 05/23/17 06/06/18 Atorvastatin [Lipitor] 10 mg PO HS 06/07/17 06/06/18 Carvedilol [Coreg] 25 mg PO BID 06/07/17 06/06/18 Cholecalciferol [Vitamin D3] 1,000 unit PO DAILY 06/07/17 06/06/18 Loratadine [Claritin] 10 mg PO DAILY 06/07/17 06/06/18 Multivitamins, Thera [Multivitamin 1 tab PO DAILY 06/07/17 06/06/18 (formulary)] Omeprazole 20 mg PO DAILY 06/07/17 06/06/18 Levothyroxine Sodium [Synthroid] 137 mcg PO DAILY 10/20/17 06/06/18 hydrALAZINE HCL [Apresoline] 50 mg PO TID 10/20/17 06/06/18 Furosemide [Lasix] 40 mg PO BID 01/08/18 06/06/18 Potassium Chloride ER [K-Dur 10] 10 meq PO DAILY 03/19/18 06/06/18 DULoxetine HCL [Cymbalta] 60 mg PO DAILY 03/31/18 06/06/18 rOPINIRole HCL 3 mg PO DAILY 03/31/18 06/06/18 rOPINIRole HCL 4 mg PO HS 03/31/18 06/06/18 Divalproex ER [Depakote ER] 500 mg PO BID 06/06/18 06/06/18 Gabapentin [Neurontin] 100 mg PO BID 06/06/18 06/06/18 Ibuprofen [Motrin] 800 mg PO TID 06/06/18 06/06/18 Metolazone [Zaroxolyn] 2.5 mg PO DAILY 06/06/18 06/06/18 Mirtazapine [Remeron] 30 mg PO HS 06/06/18 06/06/18 hydrOXYzine PAMOATE 25 mg PO TID 06/06/18 06/06/18 hydrOXYzine PAMOATE [Vistaril] 50 mg PO TID 06/06/18 06/06/18 risperiDONE MICROSPHERES 12.5 mg IM Q14D 06/06/18 06/06/18 [RisperDAL CONSTA] Previous Rx's Medication Instructions Recorded Rivaroxaban [Xarelto] 20 mg PO DAILY 90 Days #90 tab 11/18/17 Albuterol Inhaler [Ventolin Hfa 2 puff INHALATION RT-QID #0 04/23/18 Inhaler] Cyclobenzaprine [Flexeril] 10 mg PO TID #14 tab 06/06/18 Hydrocodone/Acetaminophen [[place]azama 1 each PO Q6HR PRN #12 tab 06/06/18 5-325] Allergies Allergy/AdvReac Type Severity Reaction Status Date / Time buspirone [From BuSpar] Allergy Unknown Verified 06/06/18 15:36 haloperidol [From Haldol] Allergy Swelling Verified 06/06/18 15:36 iodine Allergy Swelling Verified 06/06/18 15:36 Penicillins Allergy Swelling Verified 06/06/18 15:36 prochlorperazine Allergy Rash/Hives Verified 06/06/18 15:36 Sulfa (Sulfonamide Allergy Rash/Hives Verified 06/06/18 15:36 Antibiotics) Tetanus Vaccines and Toxoid Allergy Rash/Hives Verified 06/06/18 15:36 [Tetanus Vaccines & Toxoid] trifluoperazine HCl Allergy Unknown Verified 06/06/18 15:36 [From Stelazine] hydroxyzine [From Vistaril] AdvReac Rash/Hives Verified 06/06/18 15:36 Review of Systems ROS Statement: Those systems with pertinent positive or pertinent negative responses have been documented in the HPI. ROS Other: All systems not noted in ROS Statement are negative. Past Medical History Past Medical History: Asthma, Heart Failure, COPD, Diabetes Mellitus, GERD/ Reflux, Hyperlipidemia, Hypertension, Musculoskeletal Disorder, Osteoarthritis ( OA), Pneumonia, Pulmonary Embolus (PE), Thyroid Disorder Additional Past Medical History / Comment(s): Pt recently admitted to [facility] on with exacerbation COPD, asthma and possible pneumonia. Other hx: NIDDM type II but pt states no longer has to monitor blood sugars at home, chronic low back pain, herniated discs, RLS, leg edema, recent L leg cellulitis, anemia , gout bilateral feet, hypothyroid, UTIs History of Any Multi-Drug Resistant Organisms: None Reported Past Surgical History: Bariatric Surgery, Heart Catheterization With Stent, Hernia Repair, Orthopedic Surgery Additional Past Surgical History / Comment(s): Total Right knee replacement, 3 abdominal hernia repairs, left hip repair d/t fracture, gastric bypass/revision , colonoscopy. Past Anesthesia/Blood Transfusion Reactions: No Reported Reaction Past Psychological History: Anxiety, Bipolar, Depression, Panic Disorder, PTSD Smoking Status: Never smoker Past Alcohol Use History: None Reported Past Drug Use History: None Reported - Past Family History Mother Family Medical History: Cancer Additional Family Medical History / Comment(s): lung cancer Father Family Medical History: Diabetes Mellitus Additional Family Medical History / Comment(s): "my dad from a blood clot that traveled from his leg to his lung and also caused a heart attack." Brother(s) Family Medical History: Diabetes Mellitus Sister(s) Additional Family Medical History / Comment(s): "her heart races too fast" General Exam - General Exam Comments Initial Comments: This is a well-developed obese female who is awake alert oriented 3 Limitations: no limitations General appearance: alert, anxious Head exam: Present: atraumatic, normocephalic, normal inspection Eye exam: Present: normal appearance, PERRL, EOMI. Absent: scleral icterus, conjunctival injection, periorbital swelling ENT exam: Present: normal exam, mucous membranes moist Neck exam: Present: normal inspection. Absent: tenderness, meningismus, lymphadenopathy Respiratory exam: Present: normal lung sounds bilaterally. Absent: respiratory distress, wheezes, rales, rhonchi, stridor Cardiovascular Exam: Present: regular rate, normal rhythm, normal heart sounds. Absent: systolic murmur, diastolic murmur, rubs, gallop, clicks GI/Abdominal exam: Present: soft, normal bowel sounds. Absent: distended, tenderness, guarding, rebound, rigid Extremities exam: Present: full ROM, tenderness (Social the cast with no palpable cords), normal capillary refill. Absent: pedal edema, joint swelling, calf tenderness Back exam: Present: normal inspection Neurological exam: Present: alert, oriented X3, CN II-XII intact Psychiatric exam: Present: normal affect, normal mood Skin exam: Present: warm, dry, intact, normal color. Absent: rash Course Vital Signs 06/06/18 13:06 Temperature 98 F Pulse Rate 96 Respiratory 18 Rate Blood Pressure 99/51 O2 Sat by Pulse 96 Oximetry Medical Decision Making - Medical Decision Making I did discuss the findings with the patient she states she is feeling improved she has no pain medication at home she'll be discharged with appropriate medication. She is a follow-up with her doctor as planned and return when necessary - Lab Data Result diagrams: 06/06/18 15:20 06/06/18 15:20 Lab Results 06/06/18 06/06/18 06/06/18 Range/Units 15:20 15:20 15:20 WBC 9.5 (3.8-10.6) k/uL RBC 3.87 (3.80-5.40) m/uL Hgb 9.7 L (11.4-16.0) gm/dL Hct 30.3 L (34.0-46.0) % MCV 78.3 L (80.0-100.0) fL MCH 25.1 (25.0-35.0) pg MCHC 32.1 (31.0-37.0) g/dL RDW 15.7 H (11.5-15.5) % Plt Count 332 (150-450) k/uL Neutrophils % 81 % Lymphocytes % 10 % Monocytes % 5 % Eosinophils % 1 % Basophils % 0 % Neutrophils # 7.7 (1.3-7.7) k/uL Lymphocytes # 0.9 L (1.0-4.8) k/uL Monocytes # 0.5 (0-1.0) k/uL Eosinophils # 0.1 (0-0.7) k/uL Basophils # 0.0 (0-0.2) k/uL Hypochromasia Slight PT (9.0-12.0) sec INR (<1.2) APTT (22.0-30.0) sec D-Dimer (<0.60) mg/L FEU Sodium 138 (137-145) mmol/L Potassium 3.8 (3.5-5.1) mmol/L Chloride 97 L (98-107) mmol/L Carbon Dioxide 29 (22-30) mmol/L Anion Gap 12 mmol/L BUN 33 H (7-17) mg/dL Creatinine 0.88 (0.52-1.04) mg/dL Est GFR (CKD-EPI)AfAm 85 (>60 ml/min/1.73 sqM) Est GFR (CKD-EPI)NonAf 74 (>60 ml/min/1.73 sqM) Glucose 94 (74-99) mg/dL Calcium 9.4 (8.4-10.2) mg/dL Magnesium 1.8 (1.6-2.3) mg/dL Total Bilirubin 0.3 (0.2-1.3) mg/dL AST 35 (14-36) U/L ALT 30 (9-52) U/L Alkaline Phosphatase 109 (38-126) U/L Total Creatine Kinase 42 (30-135) U/L CK-MB (CK-2) 0.6 (0.0-2.4) ng/mL CK-MB (CK-2) Rel Index 1.4 Total Protein 7.0 (6.3-8.2) g/dL Albumin 4.1 (3.5-5.0) g/dL 06/06/18 Range/Units 15:55 WBC (3.8-10.6) k/uL RBC (3.80-5.40) m/uL Hgb (11.4-16.0) gm/dL Hct (34.0-46.0) % MCV (80.0-100.0) fL MCH (25.0-35.0) pg MCHC (31.0-37.0) g/dL RDW (11.5-15.5) % Plt Count (150-450) k/uL Neutrophils % % Lymphocytes % % Monocytes % % Eosinophils % % Basophils % % Neutrophils # (1.3-7.7) k/uL Lymphocytes # (1.0-4.8) k/uL Monocytes # (0-1.0) k/uL Eosinophils # (0-0.7) k/uL Basophils # (0-0.2) k/uL Hypochromasia PT 10.5 (9.0-12.0) sec INR 1.1 (<1.2) APTT 29.1 (22.0-30.0) sec D-Dimer 0.74 H (<0.60) mg/L FEU Sodium (137-145) mmol/L Potassium (3.5-5.1) mmol/L Chloride (98-107) mmol/L Carbon Dioxide (22-30) mmol/L Anion Gap mmol/L BUN (7-17) mg/dL Creatinine (0.52-1.04) mg/dL Est GFR (CKD-EPI)AfAm (>60 ml/min/1.73 sqM) Est GFR (CKD-EPI)NonAf (>60 ml/min/1.73 sqM) Glucose (74-99) mg/dL Calcium (8.4-10.2) mg/dL Magnesium (1.6-2.3) mg/dL Total Bilirubin (0.2-1.3) mg/dL AST (14-36) U/L ALT (9-52) U/L Alkaline Phosphatase (38-126) U/L Total Creatine Kinase (30-135) U/L CK-MB (CK-2) (0.0-2.4) ng/mL CK-MB (CK-2) Rel Index Total Protein (6.3-8.2) g/dL Albumin (3.5-5.0) g/dL - EKG Data -: EKG Interpreted by Me EKG shows normal: sinus rhythm (Normal sinus rhythm was 84. Interval 140 QRS duration 92 QT since QTC 380/[address]-T wave changes) - Radiology Data Radiology results: report reviewed (I did review the imaging and reports no acute findings.), image reviewed Disposition Clinical Impression: Lower extremity pain, Obesity Disposition: HOME SELF-CARE Condition: Good Instructions: Leg Pain (ED) Prescriptions: Cyclobenzaprine [Flexeril] 10 mg PO TID #14 tab Hydrocodone/Acetaminophen [Mazama 5-325] 1 each PO Q6HR PRN #12 tab PRN Reason: Pain Is patient prescribed a controlled substance at d/c from ED?: Yes When asked, does pt state using other controlled substances?: No If prescribed controlled substance>3 days was MAPS reviewed?: Prescribed <3 Days Referrals: Libra Umaña MD [Primary Care Provider] - 1-2 days
[2018-06-06 18:04] VITALS: BP 158/70; PULSE 78; RESP 16; TEMP 97.8
== END 2018-06-06 18:02 | disposition home or self-care (01) ==
LOC: EC 12:59
DX: M79.606 Pain in leg, unspecified (principal); E66.9 Obesity, unspecified; J44.9 Chronic obstructive pulmonary disease, unspecified; E11.9 Type 2 diabetes mellitus without complications; K21.9 Gastro-esophageal reflux disease without esophagitis; I11.0 Hypertensive heart disease with heart failure; I50.9 Heart failure, unspecified; E03.9 Hypothyroidism, unspecified; F31.9 Bipolar disorder, unspecified; F41.0 Panic disorder [episodic paroxysmal anxiety]; Z68.44 Body mass index [BMI] 60.0-69.9, adult; Z79.02 Long term (current) use of antithrombotics/antiplatelets; Z79.899 Other long term (current) drug therapy; Z88.0 Allergy status to penicillin; Z88.2 Allergy status to sulfonamides; Z88.7 Allergy status to serum and vaccine; Z88.8 Allergy status to other drugs, medicaments and biological substances; Z91.048 Other nonmedicinal substance allergy status; Z95.5 Presence of coronary angioplasty implant and graft; Z98.84 Bariatric surgery status; Z96.651 Presence of right artificial knee joint; Z86.711 Personal history of pulmonary embolism
CPT/HCPCS: 36415; 93005; 85379; 80053; 82550; 82553; 83735; 85025; 85610; 85730; 71046; 93970; 99284; 96374; 96375; J2060; J1170

== ENCOUNTER 2018-06-07 14:04 | Emergency (ER) | payer MEDICARE, OTHER ==
[2018-06-07 14:19] VITALS: RESP 18
--- NOTE | 2018-06-07 14:44 | ED ---
General Adult HPI - General Chief complaint: Psychiatric Symptoms Stated complaint: Mental Health Time Seen by Provider: 06/07/18 14:23 Source: patient, EMS, RN notes reviewed Mode of arrival: EMS Limitations: no limitations - History of Present Illness Initial comments: Patient 58-year-old female presented to the emergency room today with a chief complaint of suicidal ideation. Patient does admit that she just does not want to stay here anymore. She states she has too many health problems. She states she had thoughts of taking a bottle of Benadryl. She states she took 2 tabs. She states she called EMS. She states she did not take anything else. She denies any other complaints or symptoms at this time. - Related Data Home Medications Medication Instructions Recorded Confirmed Mirabegron [Myrbetriq] 50 mg PO DAILY 05/23/17 06/06/18 Atorvastatin [Lipitor] 10 mg PO HS 06/07/17 06/06/18 Carvedilol [Coreg] 25 mg PO BID 06/07/17 06/06/18 Cholecalciferol [Vitamin D3] 1,000 unit PO DAILY 06/07/17 06/06/18 Loratadine [Claritin] 10 mg PO DAILY 06/07/17 06/06/18 Multivitamins, Thera [Multivitamin 1 tab PO DAILY 06/07/17 06/06/18 (formulary)] Omeprazole 20 mg PO DAILY 06/07/17 06/06/18 Levothyroxine Sodium [Synthroid] 137 mcg PO DAILY 10/20/17 06/06/18 hydrALAZINE HCL [Apresoline] 50 mg PO TID 10/20/17 06/06/18 Furosemide [Lasix] 40 mg PO BID 01/08/18 06/06/18 Potassium Chloride ER [K-Dur 10] 10 meq PO DAILY 03/19/18 06/06/18 DULoxetine HCL [Cymbalta] 60 mg PO DAILY 03/31/18 06/06/18 rOPINIRole HCL 3 mg PO DAILY 03/31/18 06/06/18 rOPINIRole HCL 4 mg PO HS 03/31/18 06/06/18 Divalproex ER [Depakote ER] 500 mg PO BID 06/06/18 06/06/18 Gabapentin [Neurontin] 100 mg PO BID 06/06/18 06/06/18 Ibuprofen [Motrin] 800 mg PO TID 06/06/18 06/06/18 Metolazone [Zaroxolyn] 2.5 mg PO DAILY 06/06/18 06/06/18 Mirtazapine [Remeron] 30 mg PO HS 06/06/18 06/06/18 hydrOXYzine PAMOATE 25 mg PO TID 06/06/18 06/06/18 hydrOXYzine PAMOATE [Vistaril] 50 mg PO TID 06/06/18 06/06/18 risperiDONE MICROSPHERES 12.5 mg IM Q14D 06/06/18 06/06/18 [RisperDAL CONSTA] Previous Rx's Medication Instructions Recorded Rivaroxaban [Xarelto] 20 mg PO DAILY 90 Days #90 tab 11/18/17 Albuterol Inhaler [Ventolin Hfa 2 puff INHALATION RT-QID #0 04/23/18 Inhaler] Cyclobenzaprine [Flexeril] 10 mg PO TID #14 tab 06/06/18 Hydrocodone/Acetaminophen [[place] 1 each PO Q6HR PRN #12 tab 06/06/18 5-325] Allergies Allergy/AdvReac Type Severity Reaction Status Date / Time buspirone [From BuSpar] Allergy Unknown Verified 06/07/18 14:49 haloperidol [From Haldol] Allergy Swelling Verified 06/07/18 14:49 iodine Allergy Swelling Verified 06/07/18 14:49 Penicillins Allergy Swelling Verified 06/07/18 14:49 prochlorperazine Allergy Rash/Hives Verified 06/07/18 14:49 Sulfa (Sulfonamide Allergy Rash/Hives Verified 06/07/18 14:49 Antibiotics) Tetanus Vaccines and Toxoid Allergy Rash/Hives Verified 06/07/18 14:49 [Tetanus Vaccines & Toxoid] trifluoperazine HCl Allergy Unknown Verified 06/07/18 14:49 [From Stelazine] hydroxyzine [From Vistaril] AdvReac Rash/Hives Verified 06/07/18 14:49 Review of Systems ROS Statement: Those systems with pertinent positive or pertinent negative responses have been documented in the HPI. ROS Other: All systems not noted in ROS Statement are negative. Past Medical History Past Medical History: Asthma, Heart Failure, COPD, Diabetes Mellitus, GERD/ Reflux, Hyperlipidemia, Hypertension, Musculoskeletal Disorder, Osteoarthritis ( OA), Pneumonia, Pulmonary Embolus (PE), Thyroid Disorder Additional Past Medical History / Comment(s): Pt recently admitted to [facility] on with exacerbation COPD, asthma and possible pneumonia. Other hx: NIDDM type II but pt states no longer has to monitor blood sugars at home, chronic low back pain, herniated discs, RLS, leg edema, recent L leg cellulitis, anemia , gout bilateral feet, hypothyroid, UTIs History of Any Multi-Drug Resistant Organisms: None Reported Past Surgical History: Bariatric Surgery, Heart Catheterization With Stent, Hernia Repair, Orthopedic Surgery Additional Past Surgical History / Comment(s): Total Right knee replacement, 3 abdominal hernia repairs, left hip repair d/t fracture, gastric bypass/revision , colonoscopy. Past Anesthesia/Blood Transfusion Reactions: No Reported Reaction Past Psychological History: Anxiety, Bipolar, Depression, Panic Disorder, PTSD Smoking Status: Never smoker Past Alcohol Use History: None Reported Past Drug Use History: None Reported - Past Family History Mother Family Medical History: Cancer Additional Family Medical History / Comment(s): lung cancer Father Family Medical History: Diabetes Mellitus Additional Family Medical History / Comment(s): "my dad from a blood clot that traveled from his leg to his lung and also caused a heart attack." Brother(s) Family Medical History: Diabetes Mellitus Sister(s) Additional Family Medical History / Comment(s): "her heart races too fast" General Exam - General Exam Comments Initial Comments: General: The patient is awake and alert, in no distress, and does not appear acutely ill. Eye: Pupils are equal, round and reactive to light. Extra-ocular movements are intact. No nystagmus. There is normal conjunctiva bilaterally. No signs of icterus. Ears, nose, mouth and throat: There are moist mucous membranes and no oral lesions. Neck: The neck is supple, there is no tenderness or JVD. Cardiovascular: There is a regular rate and rhythm. No murmur, rub or gallop is appreciated. Respiratory: Lungs are clear to auscultation, respirations are non-labored, breath sounds are equal. No stridor, rales, or rhonchi. Musculoskeletal: Normal ROM, no tenderness. Sensation intact. Strength 5/5. Pulses equal bilaterally 2+. Neurological: A&O x 3. CN II-XII intact, There are no obvious motor or sensory deficits. Coordination appears grossly intact. Speech is normal. Skin: Skin is warm and dry and no rashes or lesions are noted. Psychiatric: Cooperative, appropriate mood & affect, normal judgment. Limitations: no limitations Course Vital Signs 06/07/18 14:15 Temperature 97.8 F Pulse Rate 93 Respiratory 18 Rate Blood Pressure 168/77 O2 Sat by Pulse 95 Oximetry Medical Decision Making - Medical Decision Making Patient has been seen here in the emergency room by [facility]. Patient states she has no intentions of hurting herself. She does sign contract for safety. They state that patient is cleared to be discharged and follow palpation. - Lab Data Lab Results 06/07/18 Range/Units 14:25 Urine Opiates Screen Not Detected (NotDetected) Ur Oxycodone Screen Not Detected (NotDetected) Urine Methadone Screen Not Detected (NotDetected) Ur Propoxyphene Screen Not Detected (NotDetected) Ur Barbiturates Screen Not Detected (NotDetected) U Tricyclic Antidepress Not Detected (NotDetected) Ur Phencyclidine Scrn Not Detected (NotDetected) Ur Amphetamines Screen Not Detected (NotDetected) U Methamphetamines Scrn Not Detected (NotDetected) U Benzodiazepines Scrn Not Detected (NotDetected) Urine Cocaine Screen Not Detected (NotDetected) U Marijuana (THC) Screen Not Detected (NotDetected) Disposition Clinical Impression: Depression Disposition: HOME SELF-CARE Condition: Good Instructions: Depression (ED) Additional Instructions: Please follow-up with family doctor in the next 2 days. Please return to emergency room if the symptoms increase or worsen or for any other concerns. Is patient prescribed a controlled substance at d/c from ED?: No Referrals: Libra Umaña MD [Primary Care Provider] - 1-2 days Time of Disposition: 16:32
[2018-06-07] MEDS ORDERED: rOPINIRole HCL 4 MG TABLET PO STA (14:58)
[2018-06-07 15:22] LABS: Amphetamine Screen,Urine Not Detected (NotDetected); Barbiturate Screen,Urine Not Detected (NotDetected); Benzodiazepines Screen,Urine Not Detected (NotDetected); Cocaine Screen,Urine Not Detected (NotDetected); Methadone Screen, Urine Not Detected (NotDetected); Opiate Screen,Urine Not Detected (NotDetected); Oxycodone Screen, Urine Not Detected (NotDetected); Phencyclidine Screen,Urine Not Detected (NotDetected); Tricyclic Antidepressant,Urine Not Detected (NotDetected); Urn Cannabinoid Scrn Not Detected (NotDetected)
[2018-06-07 16:54] VITALS: BP 154/85; PULSE 94; TEMP 97.5
== END 2018-06-07 16:46 | disposition home or self-care (01) ==
LOC: EC 14:04
DX: F32.9 Major depressive disorder, single episode, unspecified (principal); G25.81 Restless legs syndrome; I11.0 Hypertensive heart disease with heart failure; I50.9 Heart failure, unspecified; K21.9 Gastro-esophageal reflux disease without esophagitis; E78.5 Hyperlipidemia, unspecified; M19.90 Unspecified osteoarthritis, unspecified site; E03.9 Hypothyroidism, unspecified; F41.9 Anxiety disorder, unspecified; F43.10 Post-traumatic stress disorder, unspecified; Z95.5 Presence of coronary angioplasty implant and graft; Z96.651 Presence of right artificial knee joint; Z79.899 Other long term (current) drug therapy; Z79.1 Long term (current) use of non-steroidal anti-inflammatories (NSAID); Z88.8 Allergy status to other drugs, medicaments and biological substances; Z91.048 Other nonmedicinal substance allergy status; Z88.0 Allergy status to penicillin; Z88.2 Allergy status to sulfonamides; Z88.7 Allergy status to serum and vaccine
CPT/HCPCS: 80306; 82075; 99285

== ENCOUNTER 2018-06-08 12:11 | Emergency (ER) | payer MEDICARE, OTHER ==
[2018-06-08 12:26] VITALS: BP 132/60; PULSE 83; RESP 18; TEMP 98.3
[2018-06-08] MEDS ORDERED: LORazepam 1 MG TAB PO STA (12:36)
--- NOTE | 2018-06-08 12:39 | ED ---
General Adult HPI - General Chief complaint: Extremity Problem,Nontraumatic Stated complaint: Restless leg syndrome Time Seen by Provider: 06/08/18 12:26 Source: patient, RN notes reviewed Mode of arrival: ambulatory Limitations: no limitations - History of Present Illness Initial comments: Patient is a pleasant 38-year-old female presenting to the emergency Department with complaints regarding her restless leg syndrome. Patient states this is a chronic problem for her. Patient states she was on Requip however her doctor does not want to refill it until she gets seen by neurologist. Patient states she was seen by neurologist wants to do further testing however this is somewhat limited based on other problems. Patient does have planned follow-up with neurologist again. Patient states her legs have been restless and is bothering her. No weakness. - Related Data Home Medications Medication Instructions Recorded Confirmed Mirabegron [Myrbetriq] 50 mg PO DAILY 05/23/17 06/06/18 Atorvastatin [Lipitor] 10 mg PO HS 06/07/17 06/06/18 Carvedilol [Coreg] 25 mg PO BID 06/07/17 06/06/18 Cholecalciferol [Vitamin D3] 1,000 unit PO DAILY 06/07/17 06/06/18 Loratadine [Claritin] 10 mg PO DAILY 06/07/17 06/06/18 Multivitamins, Thera [Multivitamin 1 tab PO DAILY 06/07/17 06/06/18 (formulary)] Omeprazole 20 mg PO DAILY 06/07/17 06/06/18 Levothyroxine Sodium [Synthroid] 137 mcg PO DAILY 10/20/17 06/06/18 hydrALAZINE HCL [Apresoline] 50 mg PO TID 10/20/17 06/06/18 Furosemide [Lasix] 40 mg PO BID 01/08/18 06/06/18 Potassium Chloride ER [K-Dur 10] 10 meq PO DAILY 03/19/18 06/06/18 DULoxetine HCL [Cymbalta] 60 mg PO DAILY 03/31/18 06/06/18 rOPINIRole HCL 3 mg PO DAILY 03/31/18 06/06/18 rOPINIRole HCL 4 mg PO HS 03/31/18 06/06/18 Divalproex ER [Depakote ER] 500 mg PO BID 06/06/18 06/06/18 Gabapentin [Neurontin] 100 mg PO BID 06/06/18 06/06/18 Ibuprofen [Motrin] 800 mg PO TID 06/06/18 06/06/18 Metolazone [Zaroxolyn] 2.5 mg PO DAILY 06/06/18 06/06/18 Mirtazapine [Remeron] 30 mg PO HS 06/06/18 06/06/18 hydrOXYzine PAMOATE 25 mg PO TID 06/06/18 06/06/18 hydrOXYzine PAMOATE [Vistaril] 50 mg PO TID 06/06/18 06/06/18 risperiDONE MICROSPHERES 12.5 mg IM Q14D 06/06/18 06/06/18 [RisperDAL CONSTA] Previous Rx's Medication Instructions Recorded Rivaroxaban [Xarelto] 20 mg PO DAILY 90 Days #90 tab 11/18/17 Albuterol Inhaler [Ventolin Hfa 2 puff INHALATION RT-QID #0 04/23/18 Inhaler] Cyclobenzaprine [Flexeril] 10 mg PO TID #14 tab 06/06/18 Hydrocodone/Acetaminophen [[place] 1 each PO Q6HR PRN #12 tab 06/06/18 5-325] Allergies Allergy/AdvReac Type Severity Reaction Status Date / Time buspirone [From BuSpar] Allergy Unknown Verified 06/07/18 14:49 haloperidol [From Haldol] Allergy Swelling Verified 06/07/18 14:49 iodine Allergy Swelling Verified 06/07/18 14:49 Penicillins Allergy Swelling Verified 06/07/18 14:49 prochlorperazine Allergy Rash/Hives Verified 06/07/18 14:49 Sulfa (Sulfonamide Allergy Rash/Hives Verified 06/07/18 14:49 Antibiotics) Tetanus Vaccines and Toxoid Allergy Rash/Hives Verified 06/07/18 14:49 [Tetanus Vaccines & Toxoid] trifluoperazine HCl Allergy Unknown Verified 06/07/18 14:49 [From Stelazine] hydroxyzine [From Vistaril] AdvReac Rash/Hives Verified 06/07/18 14:49 Review of Systems ROS Statement: Those systems with pertinent positive or pertinent negative responses have been documented in the HPI. ROS Other: All systems not noted in ROS Statement are negative. Constitutional: Denies: fever Eyes: Denies: eye pain ENT: Denies: ear pain Respiratory: Denies: cough Cardiovascular: Denies: chest pain Endocrine: Denies: fatigue Gastrointestinal: Denies: abdominal pain Genitourinary: Denies: dysuria Musculoskeletal: Denies: back pain Skin: Denies: rash Neurological: Denies: weakness Past Medical History Past Medical History: Asthma, Heart Failure, COPD, Diabetes Mellitus, GERD/ Reflux, Hyperlipidemia, Hypertension, Musculoskeletal Disorder, Osteoarthritis ( OA), Pneumonia, Pulmonary Embolus (PE), Thyroid Disorder Additional Past Medical History / Comment(s): Pt recently admitted to [facility] on with exacerbation COPD, asthma and possible pneumonia. Other hx: NIDDM type II but pt states no longer has to monitor blood sugars at home, chronic low back pain, herniated discs, RLS, leg edema, recent L leg cellulitis, anemia , gout bilateral feet, hypothyroid, UTIs History of Any Multi-Drug Resistant Organisms: None Reported Past Surgical History: Bariatric Surgery, Heart Catheterization With Stent, Hernia Repair, Orthopedic Surgery Additional Past Surgical History / Comment(s): Total Right knee replacement, 3 abdominal hernia repairs, left hip repair d/t fracture, gastric bypass/revision , colonoscopy. Past Anesthesia/Blood Transfusion Reactions: No Reported Reaction Past Psychological History: Anxiety, Bipolar, Depression, Panic Disorder, PTSD Smoking Status: Never smoker Past Alcohol Use History: None Reported Past Drug Use History: None Reported - Past Family History Mother Family Medical History: Cancer Additional Family Medical History / Comment(s): lung cancer Father Family Medical History: Diabetes Mellitus Additional Family Medical History / Comment(s): "my dad from a blood clot that traveled from his leg to his lung and also caused a heart attack." Brother(s) Family Medical History: Diabetes Mellitus Sister(s) Additional Family Medical History / Comment(s): "her heart races too fast" General Exam Limitations: no limitations General appearance: alert, in no apparent distress, obese Head exam: Present: atraumatic Eye exam: Present: normal appearance Respiratory exam: Present: normal lung sounds bilaterally Cardiovascular Exam: Present: regular rate, normal rhythm GI/Abdominal exam: Present: soft. Absent: tenderness Extremities exam: Present: normal inspection Neurological exam: Present: alert. Absent: motor sensory deficit Expanded Motor strength exam: RLE: 5, LLE: 5 Psychiatric exam: Present: normal affect, normal mood Skin exam: Present: normal color Course Vital Signs 06/08/18 12:24 Temperature 98.3 F Pulse Rate 83 Respiratory 18 Rate Blood Pressure 132/60 O2 Sat by Pulse 95 Oximetry Disposition Clinical Impression: Restless leg syndrome Disposition: HOME SELF-CARE Condition: Stable Instructions: Restless Legs Syndrome (ED) Additional Instructions: Please follow-up with both her primary care physician and neurologist tomorrow. Further medications per them. Return for change in her worsening symptoms or other concerns. Is patient prescribed a controlled substance at d/c from ED?: No Referrals: Libra Umaña MD [Primary Care Provider] - 1-2 days Luis Suarez MD [STAFF PHYSICIAN] - 1-2 days Time of Disposition: 12:39
== END 2018-06-08 12:48 | disposition home or self-care (01) ==
LOC: EC 12:11
DX: G25.81 Restless legs syndrome (principal); F41.9 Anxiety disorder, unspecified; I11.0 Hypertensive heart disease with heart failure; I50.9 Heart failure, unspecified; K21.9 Gastro-esophageal reflux disease without esophagitis; E78.5 Hyperlipidemia, unspecified; M19.90 Unspecified osteoarthritis, unspecified site; E03.9 Hypothyroidism, unspecified; F32.9 Major depressive disorder, single episode, unspecified; F43.10 Post-traumatic stress disorder, unspecified; Z95.5 Presence of coronary angioplasty implant and graft; Z96.651 Presence of right artificial knee joint; Z79.1 Long term (current) use of non-steroidal anti-inflammatories (NSAID); Z79.899 Other long term (current) drug therapy; Z88.8 Allergy status to other drugs, medicaments and biological substances; Z91.048 Other nonmedicinal substance allergy status; Z88.0 Allergy status to penicillin; Z88.2 Allergy status to sulfonamides; Z88.7 Allergy status to serum and vaccine
CPT/HCPCS: 99284

== ENCOUNTER 2018-06-16 00:04 | Emergency (ER) | payer MEDICARE, OTHER ==
[2018-06-16 00:10] VITALS: TEMP 97.5
[2018-06-16] MEDS ORDERED: methylPREDNISolone SOD SUCCI 125 MG/2 ML VIAL IV STA (00:16)
[2018-06-16] MEDS ORDERED: IPRATROPIUM-ALBUTEROL 3 ML NEB INHALATION STA ×3 (00:19→00:21)
--- NOTE | 2018-06-16 00:25 | ED ---
SOB HPI - General Source: patient, RN notes reviewed Mode of arrival: EMS Limitations: no limitations <Paige Alva - Last Filed: 06/16/18 04:06> <Susanne Allen - Last Filed: 06/16/18 04:52> - General Chief Complaint: Shortness of Breath Stated Complaint: SJ Time Seen by Provider: 06/16/18 00:10 - History of Present Illness Initial Comments: This is a 58-year-old female who presents to the emergency department with chief complaint of shortness of breath. Patient states around 9 PM this evening she began to have an asthma attack. She states that she used her rescue inhaler and a nebulizer treatment without relief. She contacted EMS. When they arrived, patient was 92% on room air. They administered a breathing treatment which brought her O2 saturation from 92% to 97%. Patient states that she has a HOMAR and heart cath scheduled for the morning. Patient denies fevers or chills, chest pain, abdominal pain, nausea or vomiting, dizziness. (Paige Alva) - Related Data Home Medications Medication Instructions Recorded Confirmed Mirabegron [Myrbetriq] 50 mg PO DAILY 05/23/17 06/10/18 Atorvastatin [Lipitor] 10 mg PO HS 06/07/17 06/10/18 Carvedilol [Coreg] 25 mg PO BID 06/07/17 06/10/18 Cholecalciferol [Vitamin D3] 1,000 unit PO DAILY 06/07/17 06/10/18 Loratadine [Claritin] 10 mg PO DAILY 06/07/17 06/10/18 Multivitamins, Thera [Multivitamin 1 tab PO DAILY 06/07/17 06/10/18 (formulary)] Omeprazole 20 mg PO DAILY 06/07/17 06/10/18 Levothyroxine Sodium [Synthroid] 137 mcg PO DAILY 10/20/17 06/10/18 hydrALAZINE HCL [Apresoline] 50 mg PO TID 10/20/17 06/10/18 Furosemide [Lasix] 40 mg PO BID 01/08/18 06/10/18 Potassium Chloride ER [K-Dur 10] 20 meq PO DAILY 03/19/18 06/10/18 DULoxetine HCL [Cymbalta] 60 mg PO DAILY 03/31/18 06/10/18 rOPINIRole HCL 4 mg PO BID 03/31/18 06/10/18 Gabapentin [Neurontin] 100 mg PO BID 06/06/18 06/10/18 Metolazone [Zaroxolyn] 2.5 mg PO DAILY 06/06/18 06/10/18 Mirtazapine [Remeron] 30 mg PO HS 06/06/18 06/10/18 risperiDONE MICROSPHERES 12.5 mg IM Q14D 06/06/18 06/10/18 [RisperDAL CONSTA] Albuterol Inhaler [Ventolin Hfa 2 puff INHALATION RT-QID PRN 06/10/18 06/10/18 Inhaler] Previous Rx's Medication Instructions Recorded Rivaroxaban [Xarelto] 20 mg PO DAILY 90 Days #90 tab 11/18/17 Cyclobenzaprine [Flexeril] 10 mg PO TID #14 tab 06/06/18 Hydrocodone/Acetaminophen [[place] 1 each PO Q6HR PRN #12 tab 06/06/18 5-325] predniSONE 20 mg PO BID #10 tab 06/16/18 Allergies Allergy/AdvReac Type Severity Reaction Status Date / Time buspirone [From BuSpar] Allergy Unknown Verified 06/10/18 09:39 haloperidol [From Haldol] Allergy Swelling Verified 06/10/18 09:39 iodine Allergy Swelling Verified 06/10/18 09:39 Penicillins Allergy Swelling Verified 06/10/18 09:39 prochlorperazine Allergy Rash/Hives Verified 06/10/18 09:39 Sulfa (Sulfonamide Allergy Rash/Hives Verified 06/10/18 09:39 Antibiotics) Tetanus Vaccines and Toxoid Allergy Rash/Hives Verified 06/10/18 09:39 [Tetanus Vaccines & Toxoid] trifluoperazine HCl Allergy Unknown Verified 06/10/18 09:39 [From Stelazine] hydroxyzine [From Vistaril] AdvReac Rash/Hives Verified 06/10/18 09:39 Review of Systems ROS Other: All systems not noted in ROS Statement are negative. <Paige Alva - Last Filed: 06/16/18 04:06> ROS Other: All systems not noted in ROS Statement are negative. <Susanne Allen - Last Filed: 06/16/18 04:52> ROS Statement: Those systems with pertinent positive or pertinent negative responses have been documented in the HPI. Past Medical History Past Medical History: Asthma, Heart Failure, COPD, Diabetes Mellitus, GERD/ Reflux, Hyperlipidemia, Hypertension, Musculoskeletal Disorder, Osteoarthritis ( OA), Pneumonia, Pulmonary Embolus (PE), Thyroid Disorder Additional Past Medical History / Comment(s): Pt recently admitted to [facility] on with exacerbation COPD, asthma and possible pneumonia. Other hx: NIDDM type II but pt states no longer has to monitor blood sugars at home, chronic low back pain, herniated discs, RLS, leg edema, recent L leg cellulitis, anemia , gout bilateral feet, hypothyroid, UTIs History of Any Multi-Drug Resistant Organisms: None Reported Past Surgical History: Bariatric Surgery, Heart Catheterization With Stent, Hernia Repair, Orthopedic Surgery Additional Past Surgical History / Comment(s): Total Right knee replacement, 3 abdominal hernia repairs, left hip repair d/t fracture, gastric bypass/revision , colonoscopy. Past Anesthesia/Blood Transfusion Reactions: No Reported Reaction Past Psychological History: Anxiety, Bipolar, Depression, Panic Disorder, PTSD Smoking Status: Never smoker - Past Family History Mother Family Medical History: Cancer Additional Family Medical History / Comment(s): lung cancer Father Family Medical History: Diabetes Mellitus Additional Family Medical History / Comment(s): "my dad from a blood clot that traveled from his leg to his lung and also caused a heart attack." Brother(s) Family Medical History: Diabetes Mellitus Sister(s) Additional Family Medical History / Comment(s): "her heart races too fast" <Paige Alva M - Last Filed: 06/16/18 04:06> General Exam <Paige Alva M - Last Filed: 06/16/18 04:06> <Susanne Allen P - Last Filed: 06/16/18 04:52> - General Exam Comments Initial Comments: General: Awake and alert, well-developed; in no apparent distress. HEENT: Head atraumatic, normocephalic. Pupils are equal, round and reactive to light. Extraocular movements intact. Oropharynx moist without erythema or exudate. Neck: Supple. Normal ROM. Cardiovascular: Regular rate and rhythm. No murmurs, rubs or gallops. Chest symmetrical. Respiratory: Labored breathing. Diffuse wheezes throughout, especially bilateral lung bases. No rhonchi or rales. Musculoskeletal: Normal ROM, no tenderness bilateral upper and lower extremities. Skin: [place], warm and dry without rashes or lesions. Neurological: Alert and oriented x3. CN II-XII grossly intact. Speech is fluent and answers are appropriate. No focal neuro deficits. Psychiatric: Normal mood and affect. No overt signs of depression or anxiety noted. (Paige Alva) Vital Signs 06/16/18 06/16/18 06/16/18 00:05 00:58 01:24 Temperature 97.5 F L Pulse Rate 87 86 88 Respiratory 24 Rate Blood Pressure 162/93 O2 Sat by Pulse 95 Oximetry 06/16/18 02:06 Temperature Pulse Rate 83 Respiratory 20 Rate Blood Pressure 121/69 O2 Sat by Pulse 98 Oximetry Medical Decision Making - Lab Data Result diagrams: 06/16/18 00:45 06/16/18 00:45 - Radiology Data Radiology results: report reviewed, image reviewed <Paige Alva - Last Filed: 06/16/18 04:06> - Lab Data Result diagrams: 06/16/18 00:45 06/16/18 00:45 <Susanne Allen - Last Filed: 06/16/18 04:52> - Medical Decision Making This is a 58-year-old female who presents to the emergency department with chief complaint of asthma attack. Patient reports difficulty breathing that started at approximately 9 PM. She did contact EMS. They gave patient a breathing treatment and her O2 saturation increased from 92% to 97% on room air. On physical examination, there is diffuse wheezing, especially in bilateral lung bases. CBC, CMP and coags reveal no significant abnormalities when compared to patient's baseline. Troponin and cardiac profile are within normal limits. EKG shows normal sinus rhythm. Chest x-ray reveals no acute abnormalities. Patient was given [id number] breathing treatments as well as a dose of Solu-Medrol in the emergency department. Her lung sounds have markedly improved and she remains 98% on room air. Vital signs are stable. Patient will be discharged home at this time. She will be provided with a prescription for prednisone. She reports already having an albuterol inhaler. Patient is in agreement with plan and voices understanding. All questions have been answered to the best of my ability. Condition upon discharge is stable. ( Paige Alva) I was available for consultation in the emergency department. The history and physical exam were done by the midlevel provider. I was consulted for this patient's care. I reviewed the case with the midlevel provider and based on their presentation of the patient, I agree with the assessment, medical decision making and plan of care as documented. (Susanne Allen) - Lab Data Lab Results 06/16/18 06/16/18 06/16/18 Range/Units 00:45 00:45 00:45 WBC 9.4 (3.8-10.6) k/uL RBC 4.48 (3.80-5.40) m/uL Hgb 11.0 L (11.4-16.0) gm/dL Hct 35.7 (34.0-46.0) % MCV 79.5 L (80.0-100.0) fL MCH 24.6 L (25.0-35.0) pg MCHC 31.0 (31.0-37.0) g/dL RDW 15.6 H (11.5-15.5) % Plt Count 342 (150-450) k/uL Neutrophils % 88 % Lymphocytes % 8 % Monocytes % 2 % Eosinophils % 1 % Basophils % 0 % Neutrophils # 8.3 H (1.3-7.7) k/uL Lymphocytes # 0.7 L (1.0-4.8) k/uL Monocytes # 0.2 (0-1.0) k/uL Eosinophils # 0.1 (0-0.7) k/uL Basophils # 0.0 (0-0.2) k/uL Manual Slide Review Performed Hypochromasia Moderate PT (9.0-12.0) sec INR (<1.2) APTT (22.0-30.0) sec Sodium 141 (137-145) mmol/L Potassium 3.8 (3.5-5.1) mmol/L Chloride 103 (98-107) mmol/L Carbon Dioxide 25 (22-30) mmol/L Anion Gap 13 mmol/L BUN 25 H (7-17) mg/dL Creatinine 0.65 (0.52-1.04) mg/dL Est GFR (CKD-EPI)AfAm >90 (>60 ml/min/1.73 sqM) Est GFR (CKD-EPI)NonAf >90 (>60 ml/min/1.73 sqM) Glucose 144 H (74-99) mg/dL Calcium 9.5 (8.4-10.2) mg/dL Magnesium 1.8 (1.6-2.3) mg/dL Total Bilirubin 0.3 (0.2-1.3) mg/dL AST 34 (14-36) U/L ALT 22 (9-52) U/L Alkaline Phosphatase 101 (38-126) U/L Total Creatine Kinase 70 (30-135) U/L CK-MB (CK-2) 1.2 (0.0-2.4) ng/mL CK-MB (CK-2) Rel Index 1.7 Troponin I <0.012 (0.000-0.034) ng/mL Total Protein 7.6 (6.3-8.2) g/dL Albumin 4.4 (3.5-5.0) g/dL 06/16/18 Range/Units 00:45 WBC (3.8-10.6) k/uL RBC (3.80-5.40) m/uL Hgb (11.4-16.0) gm/dL Hct (34.0-46.0) % MCV (80.0-100.0) fL MCH (25.0-35.0) pg MCHC (31.0-37.0) g/dL RDW (11.5-15.5) % Plt Count (150-450) k/uL Neutrophils % % Lymphocytes % % Monocytes % % Eosinophils % % Basophils % % Neutrophils # (1.3-7.7) k/uL Lymphocytes # (1.0-4.8) k/uL Monocytes # (0-1.0) k/uL Eosinophils # (0-0.7) k/uL Basophils # (0-0.2) k/uL Manual Slide Review Hypochromasia PT 9.4 (9.0-12.0) sec INR 0.9 (<1.2) APTT 18.5 L (22.0-30.0) sec Sodium (137-145) mmol/L Potassium (3.5-5.1) mmol/L Chloride (98-107) mmol/L Carbon Dioxide (22-30) mmol/L Anion Gap mmol/L BUN (7-17) mg/dL Creatinine (0.52-1.04) mg/dL Est GFR (CKD-EPI)AfAm (>60 ml/min/1.73 sqM) Est GFR (CKD-EPI)NonAf (>60 ml/min/1.73 sqM) Glucose (74-99) mg/dL Calcium (8.4-10.2) mg/dL Magnesium (1.6-2.3) mg/dL Total Bilirubin (0.2-1.3) mg/dL AST (14-36) U/L ALT (9-52) U/L Alkaline Phosphatase (38-126) U/L Total Creatine Kinase (30-135) U/L CK-MB (CK-2) (0.0-2.4) ng/mL CK-MB (CK-2) Rel Index Troponin I (0.000-0.034) ng/mL Total Protein (6.3-8.2) g/dL Albumin (3.5-5.0) g/dL - EKG Data EKG Comments: 2:05:56. Normal sinus rhythm with sinus arrhythmia. Ventricular rate 74 bpm, IN interval 134, QRS duration 88, QT/QTc 410/455 (Paige Alva) - Radiology Data Chest x-ray impression: Cardiomegaly. No active cardiopulmonary disease. No change. (Paige Alva) Disposition Is patient prescribed a controlled substance at d/c from ED?: No Time of Disposition: 02:02 <Paige Alva - Last Filed: 06/16/18 04:06> <Susanne Allen - Last Filed: 06/16/18 04:52> Clinical Impression: Acute asthma exacerbation Disposition: HOME SELF-CARE Condition: Good Instructions: Asthma (ED) Additional Instructions: Please take medications as prescribed. Please follow up with primary care provider within 1-2 days. Return to emergency department if symptoms should worsen or any concerns arise. Prescriptions: predniSONE 20 mg PO BID #10 tab Referrals: Libra Umaña MD [Primary Care Provider] - 1-2 days
[2018-06-16 01:05] LABS: Basophils % (A) 0 %; Eosinophils # (A) 0.1 k/uL (0-0.7); Eosinophils % (A) 1 %; HCT 35.7 % (34.0-46.0); Hypochromasia Moderate; Lymphocytes # (A) 0.7 k/uL (1.0-4.8); Lymphocytes % (A) 8 %; MCH 24.6 pg (25.0-35.0); MCV 79.5 fL (80.0-100.0); Mean Platelet Volume 7.5; Monocytes # (A) 0.2 k/uL (0-1.0); Monocytes % (A) 2 %; Neutrophils # (A) 8.3 k/uL (1.3-7.7); Neutrophils % (A) 88 %; Platelet Count 342 k/uL (150-450); RBC 4.48 m/uL (3.80-5.40); RDW 15.6 % (11.5-15.5); WBC 9.4 k/uL (3.8-10.6)
[2018-06-16 01:06] LABS: ALT 22 U/L (9-52); AST 34 U/L (14-36); Albumin 4.4 g/dL (3.5-5.0); Alkaline Phosphatase 101 U/L (38-126); Anion Gap 13 mmol/L; Blood Urea Nitrogen 25 mg/dL (7-17); Calcium 9.5 mg/dL (8.4-10.2); Carbon Dioxide 25 mmol/L (22-30); Chloride 103 mmol/L (98-107); Glucose 144 mg/dL (74-99); Magnesium 1.8 mg/dL (1.6-2.3); Potassium 3.8 mmol/L (3.5-5.1); Sodium 141 mmol/L (137-145); Total Bilirubin 0.3 mg/dL (0.2-1.3); Total Protein 7.6 g/dL (6.3-8.2)
[2018-06-16 01:09] LABS: INR 0.9 (<1.2); Prothrombin Time 9.4 sec (9.0-12.0)
[2018-06-16 01:24] LABS: Partial Thromboplastin Time 18.5 sec (22.0-30.0)
[2018-06-16 01:26] LABS: Creatine Kinase MB 1.2 ng/mL (0.0-2.4)
[2018-06-16 01:27] LABS: Creatine Kinase 70 U/L (30-135); Troponin I <0.012 ng/mL (0.000-0.034)
--- NOTE | 2018-06-16 01:48 | XR ---
EXAMINATION TYPE: XR chest 2V DATE OF EXAM: 06/16/2018 COMPARISON: 06/06/2018 HISTORY: Difficulty breathing TECHNIQUE: Frontal and lateral views of the chest are obtained. FINDINGS: There is no heart failure nor confluent pneumonic infiltrate. Heart is probably enlarged. Costophrenic angles are clear. Bony thorax is intact. IMPRESSION: Cardiomegaly. No active cardiopulmonary disease. No change.
[2018-06-16 02:07] VITALS: BP 121/69; PULSE 83; RESP 20
== END 2018-06-16 02:37 | disposition home or self-care (01) ==
LOC: EC 00:04
DX: J45.901 Unspecified asthma with (acute) exacerbation (principal); J44.9 Chronic obstructive pulmonary disease, unspecified; K21.9 Gastro-esophageal reflux disease without esophagitis; M19.90 Unspecified osteoarthritis, unspecified site; I11.0 Hypertensive heart disease with heart failure; I50.9 Heart failure, unspecified; E78.5 Hyperlipidemia, unspecified; M10.9 Gout, unspecified; E03.9 Hypothyroidism, unspecified; G25.81 Restless legs syndrome; F31.9 Bipolar disorder, unspecified; F41.0 Panic disorder [episodic paroxysmal anxiety]; F43.10 Post-traumatic stress disorder, unspecified; Z79.899 Other long term (current) drug therapy; Z88.0 Allergy status to penicillin; Z88.7 Allergy status to serum and vaccine; Z88.8 Allergy status to other drugs, medicaments and biological substances; Z88.2 Allergy status to sulfonamides; Z86.711 Personal history of pulmonary embolism; Z87.440 Personal history of urinary (tract) infections; Z87.01 Personal history of pneumonia (recurrent); Z96.651 Presence of right artificial knee joint; Z95.5 Presence of coronary angioplasty implant and graft; Z98.84 Bariatric surgery status
CPT/HCPCS: 36415; 94640; 93005; 80053; 82550; 82553; 83735; 84484; 85025; 85610; 85730; 71046; 99285; 96374; J2930

== ENCOUNTER 2018-06-16 10:37 | Day surgery (SDC) | payer MEDICARE, OTHER ==
[2018-06-10 10:02] VITALS: BMI 69.0
[~2018-06-16 10:37] MED LIST: ALPRAZolam 0.25 MG TAB PO PRN; ALPRAZolam 0.5 MG TAB PO PRN; ASPIRIN 325 MG TAB PO STA; ATORVASTATIN 80 MG TAB PO STA; NITROGLYCERIN SL TABS 0.4 MG TAB SUBLINGUAL PRN; SODIUM CHLORIDE 0.9% 1,000 ML in EMPTY BAG 1 BAG IV ONE
[2018-06-16] MEDS ORDERED: CARVEDILOL 12.5 MG TAB PO STA (11:31)
[2018-06-16] MEDS ORDERED: fentaNYL (PF) 50 MCG/ML 2 ML AMP ONE (12:28)
[2018-06-16] MEDS ORDERED: MIDAZOLAM 2 MG/2 ML VIAL ONE ×2 (12:29)
[2018-06-16] MEDS ORDERED: IV FLUID CONTINUATION 1,000 ML IV ONE (12:35)
[2018-06-16] MEDS ORDERED: BENZOCAINE SPRAY 1 CAN MUCOUS MEM ONE (12:57)
[2018-06-16] MEDS: fentaNYL (PF) 50 MCG/ML 2 ML AMP IV ONE ×2 (13:04→13:08)
[2018-06-16] MEDS ORDERED: MIDAZOLAM 2 MG/2 ML VIAL IV ONE ×2 (13:04→13:08)
[2018-06-16] MEDS: MIDAZOLAM 2 MG/2 ML VIAL IV ONE ×2 (13:10→13:12)
[2018-06-16] MEDS ORDERED: LIDOCAINE 1% INJ 10MG/ML (20 ML MDV) ONE (13:16)
--- NOTE | 2018-06-16 13:39 | ECHOT ---
TRANSESOPHAGEAL ECHOCARDIOGRAM DATE OF SERVICE: June 16, 2018. INDICATION OF THE PROCEDURE: Mitral regurgitation. PERFORMING PHYSICIAN: Quique Lenz MD. COMPLICATION: None. LEVEL OF SEDATION: Moderate with sedation length about 15 minutes. PROCEDURE DESCRIPTION: After obtaining an informed consent, explaining the procedure, benefits, risks, complications and alternatives, the patient was brought to the transesophageal echocardiogram suite. A pulse oximetry and heart rate monitors were attached to the patient prior to the procedure. The patient's throat was sprayed using lidocaine locally. Following that, the patient was turned into left lateral position. A bite guard was placed and the patient was then sedated with the above doses of Versed and fentanyl in divided doses. Following that, the transesophageal echocardiogram probe was advanced through the bite guard into the mid esophagus where 2-D echocardiogram images as well as color Doppler images of various cardiac structures were obtained. We evaluated the interatrial septum using 2-D echocardiogram, color Doppler, and contrast study. The procedure was completed. There were no complications. FINDINGS: The left ventricular dimension and systolic function appeared to be within normal limits. The ejection fraction appeared to be in the range of 60%. The right ventricle is of normal size and function. The left atrium and right atrium appeared to be within normal limits. The left atrial appendage was not well visualized. The interatrial septum appeared to be intact. The aortic valve is trileaflet valve without stenosis or regurgitation. The mitral valve seems to be thickened with moderate MR with posterior eccentric jet. Tricuspid valve and pulmonic valve appear to be within normal limits. CONCLUSION: 1. Normal left ventricular dimension and systolic function with an ejection fraction of 60% and normal wall motion. 2. Normal right ventricular dimension and systolic function. 3. Thickened aortic valve leaflets without stenosis or regurgitation. 4. Thickened mitral valve leaflets with moderate mitral regurgitation with posterior eccentric jet. 5. Normal tricuspid valve and pulmonic valve. 6. Normal interatrial septum without any evidence of shunt. MMODL / IJN: [id number] /
[2018-06-16] MEDS ORDERED: VERAPAMIL 2.5 MG/ML 2 ML AMP ONE (14:03)
[2018-06-16] MEDS: LIDOCAINE 1% INJ 10MG/ML (20 ML MDV) SQ ONE ×2 (14:05→14:17)
[2018-06-16] MEDS ORDERED: MORPHINE SULFATE 4 MG/ML SYRINGE ONE (14:13)
[2018-06-16] MEDS ORDERED: MORPHINE SULFATE 4 MG/ML SYRINGE IV ONE (14:15)
[2018-06-16] MEDS: VERAPAMIL SYRINGE (5 MG/10 ML) INTRAARTER ONE ×2 (14:18→14:33)
[2018-06-16] MEDS ORDERED: HEPARIN SODIUM 1,000 UN/ML (10ML VL) ONE (14:19)
[2018-06-16] MEDS ORDERED: HEPARIN SODIUM 1,000 UN/ML (10ML VL) IV ONE (14:20)
[2018-06-16] MEDS ORDERED: IOPAMIDOL-370 125ML BTL INJ ONE (14:32)
[2018-06-16] MEDS ORDERED: RX INFO: IV CONTRAST WAS GIVEN 1 EACH MISC MISCELLANE PRN (14:38)
[2018-06-16] MEDS ORDERED: SODIUM CHLORIDE 0.9% 1,000 ML IV SCH (14:45)
[2018-06-16] MEDS ORDERED: hydrALAZINE HCL 50 MG TAB PO STA (15:57)
[2018-06-16] MEDS ORDERED: HYDROcodone/APAP 5-325MG 1 EACH TAB PO PRN (16:00)
--- NOTE | 2018-06-16 17:54 | CC ---
CARDIAC CATHETERIZATION REPORT DATE OF SERVICE: 06/16/2018 PERFORMING PHYSICIAN: Quique Lenz MD, cloth sander. PROCEDURE PERFORMED: 1. Right heart catheterization. 2. Selective right and left coronary angiogram. 3. Left heart catheterization. INDICATION: This is a pleasant 58-year-old female patient who was experiencing shortness of breath with exertion concerning for angina. She was scheduled today to undergo a right and left heart catheterization. APPROACH: 1. Right common femoral vein. 2. Right radial artery. COMPLICATIONS: None. LEVEL OF SEDATION: Moderate. Sedation length of 30 minutes. PROCEDURE DESCRIPTION: After obtaining informed consent, the patient was brought to the cardiac laborer hoisting. The right common femoral vein was cannulated using micropuncture technique. The micropuncture wire passed easily. Then I placed an 8-Tunisian sheath in the right common femoral vein. After that I did right heart catheterization using 7-Tunisian [place] catheter. After that, I accessed the right radial artery using micropuncture technique. The micropuncture wire passed easily. Then I placed a 6-Tunisian sheath in the right radial artery. After that, I did selective right and left coronary angiogram using JR4 and JL3.5 catheters. Left heart catheterization was performed using JR4 6-Tunisian pigtail catheter. The procedure was completed without any complication. HEMODYNAMICS: 1. The pulmonary capillary wedge pressure was 22 mmHg. 2. Pulmonary artery pressures were as follows: Systolic 34, diastolic 24 and mean of 29 mmHg. 3. Right ventricular pressures were as follows: Systolic 31 and end-diastolic of 13 mmHg. 4. Right atrial pressure was 10 mmHg. 5. The left ventricular end-diastolic pressure was 15 mmHg. SELECTIVE CORONARY ANGIOGRAM: 1. The right coronary artery is a large-caliber vessel. It is a dominant vessel. It is angiographically normal. 2. The left main is angiographically normal. It bifurcates into left circumflex and left anterior descending artery. 3. Left circumflex is a large-caliber vessel. It is a codominant vessel. The proximal circumflex is normal and gives rise to a large first OM branch which appeared to be angiographically normal. The mid left circumflex appeared to be angiographically normal. The left circumflex distally is normal and bifurcates into PDA and PLV branches. Both are angiographically normal. 4. Left anterior descending artery. The proximal LAD appeared to be angiographically normal. The mid LAD is normal and the LAD distally appeared to be angiographically normal. The LAD gives rise to 2 diagonal branches. They appeared to be angiographically normal. CONCLUSION: 1. Normal right heart pressures. 2. Normal coronary angiogram. POST-PROCEDURE MANAGEMENT: 1. Maximize medical treatment. 2. Follow up with the patient. BENTLEY / KIEL: [id number] /
--- NOTE | 2018-06-16 18:03 | LTR ---
06/16/2018 To: Dr. Libra Umaña Re: Magda Lerner (62) Dear Dr. Umaña, Ms. Magda Lerner underwent right and left heart catheterization today and that revealed normal right heart pressures with normal coronary angiogram. I want to thank you for allowing us to participate in her care. Please do not hesitate to call if you have any question or concern. Sincerely, MD BENTLEY Jacobson / KIEL: [phone] /
[2018-06-16 18:34] VITALS: BP 146/76; PULSE 94; RESP 18; TEMP 97.6
== END 2018-06-16 22:00 | disposition home or self-care (01) ==
LOC: CATHCVL 10:37 → 1SOBS 14:35 → CATHCVL 22:00
PROVIDERS: ATTEND Internal Medicine Interventional Cardiology
DX: I34.0 Nonrheumatic mitral (valve) insufficiency (principal); R06.02 Shortness of breath; R07.89 Other chest pain; I10 Essential (primary) hypertension; E66.9 Obesity, unspecified; Z68.44 Body mass index [BMI] 60.0-69.9, adult; E11.9 Type 2 diabetes mellitus without complications; I27.20 Pulmonary hypertension, unspecified; E78.00 Pure hypercholesterolemia, unspecified; Z82.49 Family history of ischemic heart disease and other diseases of the circulatory system; Z79.01 Long term (current) use of anticoagulants; Z79.1 Long term (current) use of non-steroidal anti-inflammatories (NSAID); Z79.890 Hormone replacement therapy; Z79.899 Other long term (current) drug therapy; Z88.0 Allergy status to penicillin; Z88.2 Allergy status to sulfonamides; Z88.7 Allergy status to serum and vaccine; Z88.8 Allergy status to other drugs, medicaments and biological substances
CPT/HCPCS: 96374; 99285; 36415; 94640; 93005; 93312; 93320; 93325; 93453; 80053; 82550; 82553; 83735; 84484; 85025; 85610; 85730; 71046; C1894 ×2; C1769 ×2; J2250; J2270; J2930; J2001; J3010; J1644; Q9967

== ENCOUNTER 2018-06-19 10:51 | Emergency (ER) | payer MEDICARE, OTHER ==
[2018-06-19] MEDS ORDERED: ACETAMINOPHEN TAB 500 MG TAB PO STA (11:11)
--- NOTE | 2018-06-19 11:12 | ED ---
General Adult HPI - General Stated complaint: lt hand numbness Time Seen by Provider: 06/19/18 10:53 Source: RN notes reviewed, old records reviewed - History of Present Illness Initial comments: Patient is a 58-year-old female presents emergency department today with chief complaint of numbness and tingling in her left hand. Patient reports she had a cardiac cath on Saturday. She reports she's had intermittent subjective fevers from Saturday to now. She was at [facility] today and was supposed to receive an injection of her psychiatric medications. They would not give for this injection because of the low-grade temperature 90.9. She denies any worsening shortness of breath or chest pain. Patient states she has no skin changes or pain from her recent cardiac cath locations. Patient states that she did have a HOMAR as well. Patient denies any other complaints at this time. No headache. - Related Data Home Medications Medication Instructions Recorded Confirmed Mirabegron [Myrbetriq] 50 mg PO DAILY 05/23/17 06/19/18 Atorvastatin [Lipitor] 10 mg PO HS 06/07/17 06/19/18 Carvedilol [Coreg] 25 mg PO BID 06/07/17 06/19/18 Cholecalciferol [Vitamin D3] 1,000 unit PO DAILY 06/07/17 06/19/18 Loratadine [Claritin] 10 mg PO DAILY 06/07/17 06/19/18 Multivitamins, Thera [Multivitamin 1 tab PO DAILY 06/07/17 06/19/18 (formulary)] Omeprazole 20 mg PO DAILY 06/07/17 06/19/18 Levothyroxine Sodium [Synthroid] 137 mcg PO DAILY 10/20/17 06/19/18 hydrALAZINE HCL [Apresoline] 50 mg PO TID 10/20/17 06/19/18 Furosemide [Lasix] 40 mg PO BID 01/08/18 06/19/18 Potassium Chloride ER [K-Dur 10] 20 meq PO DAILY 03/19/18 06/19/18 DULoxetine HCL [Cymbalta] 60 mg PO DAILY 03/31/18 06/19/18 rOPINIRole HCL 4 mg PO BID 03/31/18 06/19/18 Gabapentin [Neurontin] 100 mg PO BID 06/06/18 06/19/18 Metolazone [Zaroxolyn] 2.5 mg PO DAILY 06/06/18 06/19/18 Mirtazapine [Remeron] 30 mg PO HS 06/06/18 06/19/18 risperiDONE MICROSPHERES 12.5 mg IM Q14D 06/06/18 06/19/18 [RisperDAL CONSTA] Albuterol Inhaler [Ventolin Hfa 2 puff INHALATION RT-QID PRN 06/10/18 06/19/18 Inhaler] Hydrocodone/Acetaminophen [[place] 1 tab PO Q6HR PRN 06/19/18 06/19/18 5-325] Previous Rx's Medication Instructions Recorded Rivaroxaban [Xarelto] 20 mg PO DAILY 90 Days #90 tab 11/18/17 Cyclobenzaprine [Flexeril] 10 mg PO TID #14 tab 06/06/18 Allergies Allergy/AdvReac Type Severity Reaction Status Date / Time buspirone [From BuSpar] Allergy Unknown Verified 06/19/18 11:52 haloperidol [From Haldol] Allergy Swelling Verified 06/19/18 11:52 iodine Allergy Swelling Verified 06/19/18 11:52 Penicillins Allergy Swelling Verified 06/19/18 11:52 prochlorperazine Allergy Rash/Hives Verified 06/19/18 11:52 Sulfa (Sulfonamide Allergy Rash/Hives Verified 06/19/18 11:52 Antibiotics) Tetanus Vaccines and Toxoid Allergy Rash/Hives Verified 06/19/18 11:52 [Tetanus Vaccines & Toxoid] trifluoperazine HCl Allergy Unknown Verified 06/19/18 11:52 [From Stelazine] hydroxyzine [From Vistaril] AdvReac Rash/Hives Verified 06/19/18 11:52 Review of Systems ROS Statement: Those systems with pertinent positive or pertinent negative responses have been documented in the HPI. ROS Other: All systems not noted in ROS Statement are negative. Past Medical History Past Medical History: Asthma, Heart Failure, COPD, Diabetes Mellitus, GERD/ Reflux, Hyperlipidemia, Hypertension, Musculoskeletal Disorder, Osteoarthritis ( OA), Pneumonia, Pulmonary Embolus (PE), Thyroid Disorder Additional Past Medical History / Comment(s): Pt recently admitted to [facility] on with exacerbation COPD, asthma and possible pneumonia. Other hx: NIDDM type II but pt states no longer has to monitor blood sugars at home, chronic low back pain, herniated discs, RLS, leg edema, recent L leg cellulitis, anemia , gout bilateral feet, hypothyroid, UTIs History of Any Multi-Drug Resistant Organisms: None Reported Past Surgical History: Bariatric Surgery, Heart Catheterization, Hernia Repair, Orthopedic Surgery Additional Past Surgical History / Comment(s): Total Right knee replacement, 3 abdominal hernia repairs, left hip repair d/t fracture, gastric bypass/revision , colonoscopy. Past Anesthesia/Blood Transfusion Reactions: No Reported Reaction Past Psychological History: Anxiety, Bipolar, Depression, Panic Disorder, PTSD Additional Psychological History / Comment(s): Borderline personality disorder. She states she sees a psychiatrist at [facility] and has a case fitter there. Pt has a legal guardian , Caroline Mannie. She cannot drive, she either takes the bus to appts or legal guardian drives her to appts. She uses a cane or a walker to ambulate. She has a glucometer but no longer has to monitor her blood sugars. She is worried about her cat stating there is nobody to take care of her. Smoking Status: Never smoker Past Alcohol Use History: None Reported Additional Past Alcohol Use History / Comment(s): In -' was for three years an everyday drinker Past Drug Use History: None Reported - Past Family History Mother Family Medical History: Cancer Additional Family Medical History / Comment(s): lung cancer Father Family Medical History: Diabetes Mellitus Additional Family Medical History / Comment(s): "my dad from a blood clot that traveled from his leg to his lung and also caused a heart attack." Brother(s) Family Medical History: Diabetes Mellitus Sister(s) Additional Family Medical History / Comment(s): "her heart races too fast" Course Vital Signs 06/19/18 11:05 Temperature 98 F Pulse Rate 84 Respiratory 20 Rate Blood Pressure 139/77 O2 Sat by Pulse 95 Oximetry Medical Decision Making - Medical Decision Making His is a 38-year-old female presents emergency Department stay wellness emergency department for significant disease. Patient states that she has had subjective fevers complains of paresthesias in her left hand. Patient had a cardiac cath an HOMAR on Saturday. She reports had subjective fever since that time. She is afebrile emergency department. Vital signs are stable. Patient complains of fatigue. Patient has no signs of neurological deficits and normal motor function of all extremities. This time her EKG reveals no acute changes. Troponins normal. Chest x-ray was negative for any acute process. Patient was informed that she'll rest signs are stable and that she can be discharged. I did discuss case with Dr. Hugo. We'll discharge Patient home. Patient was quite upset about discharge and left upset at provider. - Lab Data Result diagrams: 06/19/18 11:30 06/19/18 11:30 Lab Results 06/19/18 06/19/18 06/19/18 Range/Units 11:30 11:30 11:30 WBC 8.6 (3.8-10.6) k/uL RBC 3.76 L (3.80-5.40) m/uL Hgb 9.5 L D (11.4-16.0) gm/dL Hct 30.2 L (34.0-46.0) % MCV 80.4 (80.0-100.0) fL MCH 25.3 (25.0-35.0) pg MCHC 31.5 (31.0-37.0) g/dL RDW 15.3 (11.5-15.5) % Plt Count 337 (150-450) k/uL Neutrophils % 67 % Lymphocytes % 20 % Monocytes % 7 % Eosinophils % 1 % Basophils % 0 % Neutrophils # 5.8 (1.3-7.7) k/uL Lymphocytes # 1.7 (1.0-4.8) k/uL Monocytes # 0.6 (0-1.0) k/uL Eosinophils # 0.1 (0-0.7) k/uL Basophils # 0.0 (0-0.2) k/uL Hypochromasia Moderate PT (9.0-12.0) sec INR (<1.2) APTT (22.0-30.0) sec Sodium 136 L (137-145) mmol/L Potassium 5.3 H (3.5-5.1) mmol/L Chloride 103 (98-107) mmol/L Carbon Dioxide 26 (22-30) mmol/L Anion Gap 7 mmol/L BUN 30 H (7-17) mg/dL Creatinine 0.58 (0.52-1.04) mg/dL Est GFR (CKD-EPI)AfAm >90 (>60 ml/min/1.73 sqM) Est GFR (CKD-EPI)NonAf >90 (>60 ml/min/1.73 sqM) Glucose 90 (74-99) mg/dL Plasma Lactic Acid Brock 1.1 (0.7-2.0) mmol/L Calcium 9.0 (8.4-10.2) mg/dL Total Bilirubin 0.5 (0.2-1.3) mg/dL AST 38 H (14-36) U/L ALT 33 (9-52) U/L Alkaline Phosphatase 85 (38-126) U/L Troponin I (0.000-0.034) ng/mL Total Protein 6.6 (6.3-8.2) g/dL Albumin 3.8 (3.5-5.0) g/dL Urine Color Urine Appearance (Clear) Urine pH (5.0-8.0) Ur Specific Leonard (1.001-1.035) Urine Protein (Negative) Urine Glucose (UA) (Negative) Urine Ketones (Negative) Urine Blood (Negative) Urine Nitrite (Negative) Urine Bilirubin (Negative) Urine Urobilinogen (<2.0) mg/dL Ur Leukocyte Esterase (Negative) 06/19/18 06/19/18 06/19/18 Range/Units 11:30 11:30 11:30 WBC (3.8-10.6) k/uL RBC (3.80-5.40) m/uL Hgb (11.4-16.0) gm/dL Hct (34.0-46.0) % MCV (80.0-100.0) fL MCH (25.0-35.0) pg MCHC (31.0-37.0) g/dL RDW (11.5-15.5) % Plt Count (150-450) k/uL Neutrophils % % Lymphocytes % % Monocytes % % Eosinophils % % Basophils % % Neutrophils # (1.3-7.7) k/uL Lymphocytes # (1.0-4.8) k/uL Monocytes # (0-1.0) k/uL Eosinophils # (0-0.7) k/uL Basophils # (0-0.2) k/uL Hypochromasia PT 10.3 (9.0-12.0) sec INR 1.1 (<1.2) APTT 27.1 (22.0-30.0) sec Sodium (137-145) mmol/L Potassium (3.5-5.1) mmol/L Chloride (98-107) mmol/L Carbon Dioxide (22-30) mmol/L Anion Gap mmol/L BUN (7-17) mg/dL Creatinine (0.52-1.04) mg/dL Est GFR (CKD-EPI)AfAm (>60 ml/min/1.73 sqM) Est GFR (CKD-EPI)NonAf (>60 ml/min/1.73 sqM) Glucose (74-99) mg/dL Plasma Lactic Acid Brock (0.7-2.0) mmol/L Calcium (8.4-10.2) mg/dL Total Bilirubin (0.2-1.3) mg/dL AST (14-36) U/L ALT (9-52) U/L Alkaline Phosphatase (38-126) U/L Troponin I <0.012 (0.000-0.034) ng/mL Total Protein (6.3-8.2) g/dL Albumin (3.5-5.0) g/dL Urine Color Yellow Urine Appearance Clear (Clear) Urine pH 5.0 (5.0-8.0) Ur Specific [place] 1.012 (1.001-1.035) Urine Protein Negative (Negative) Urine Glucose (UA) Negative (Negative) Urine Ketones Negative (Negative) Urine Blood Negative (Negative) Urine Nitrite Negative (Negative) Urine Bilirubin Negative (Negative) Urine Urobilinogen <2.0 (<2.0) mg/dL Ur Leukocyte Esterase Negative (Negative) 06/19/18 13:04 EKG reported 1142 shows normal sinus rhythm nonspecific ST amount. Abnormal EKG noted. Ventricular rate of 84 bpm. Apparently was /32. She religion 80 ms. QT QTc is 350/423 ms. - Radiology Data Radiology results: report reviewed Pulmonary vascular prominence of this anyway by low lung volumes although pulmonary vascular congestion is also suspected. Disposition Clinical Impression: History of fever, Paresthesia Disposition: HOME SELF-CARE Condition: Good Instructions: Fever in Adults (ED) Additional Instructions: Patient advised that close follow-up with primary care provider. Return to emergency department if any alarming signs or symptoms occur. Motrin and Tylenol for pain. Is patient prescribed a controlled substance at d/c from ED?: No Referrals: Libra Umaña MD [Primary Care Provider] - 1-2 days Time of Disposition: 13:06
[2018-06-19 11:13] VITALS: RESP 20; TEMP 98
[2018-06-19] MEDS ORDERED: SODIUM CHLORIDE 0.9% 1,000 ML IV SCH (11:15)
[2018-06-19 12:11] LABS: Appearance,Urine Clear (Clear); Bilirubin,Urine Negative (Negative); Blood,Urine Negative (Negative); Color,Urine Yellow; Glucose,Urine (UA) Negative (Negative); Ketones,Urine Negative (Negative); Leukocyte Esterase,Urine Negative (Negative); Nitrite,Urine Negative (Negative); Protein,Urine Negative (Negative); Specific Gravity,Urine 1.012 (1.001-1.035); Urobilinogen,Urine <2.0 mg/dL (<2.0)
--- NOTE | 2018-06-19 12:11 | XR ---
EXAMINATION TYPE: XR chest 2V DATE OF EXAM: 06/19/2018 COMPARISON: 06/16/2018 HISTORY: Upper extremity numbness TECHNIQUE: Frontal and lateral views of the chest are obtained. FINDINGS: There is no focal air space opacity, pleural effusion, or pneumothorax seen. Pulmonary mar kings are exaggerated by low lung volumes. Right hemidiaphragm eventration is noted. The cardiac silh ouette size is enlarged. The osseous structures are intact. Mild multilevel degenerative changes of the spine are seen. IMPRESSION: Pulmonary vascular prominence is accentuated by low lung volumes although mild pulmonary vascular congestion is also suspected.
[2018-06-19 12:23] LABS: Basophils % (A) 0 %; Eosinophils # (A) 0.1 k/uL (0-0.7); Eosinophils % (A) 1 %; HCT 30.2 % (34.0-46.0); Hypochromasia Moderate; Lymphocytes # (A) 1.7 k/uL (1.0-4.8); Lymphocytes % (A) 20 %; MCH 25.3 pg (25.0-35.0); MCHC 31.5 g/dL (31.0-37.0); MCV 80.4 fL (80.0-100.0); Mean Platelet Volume 7.1; Monocytes # (A) 0.6 k/uL (0-1.0); Monocytes % (A) 7 %; Neutrophils # (A) 5.8 k/uL (1.3-7.7); Neutrophils % (A) 67 %; Platelet Count 337 k/uL (150-450); RBC 3.76 m/uL (3.80-5.40); RDW 15.3 % (11.5-15.5); WBC 8.6 k/uL (3.8-10.6)
[2018-06-19 12:25] LABS: INR 1.1 (<1.2); Partial Thromboplastin Time 27.1 sec (22.0-30.0); Prothrombin Time 10.3 sec (9.0-12.0)
[2018-06-19] MEDS: SODIUM CHLORIDE 0.9% 500 ML 500 ML IV SCH (12:27)
[2018-06-19 12:30] LABS: HGB 9.5 gm/dL (11.4-16.0)
[2018-06-19 12:47] LABS: Albumin 3.8 g/dL (3.5-5.0); Anion Gap 7 mmol/L; Blood Urea Nitrogen 30 mg/dL (7-17); Carbon Dioxide 26 mmol/L (22-30); Chloride 103 mmol/L (98-107); Glucose 90 mg/dL (74-99); Sodium 136 mmol/L (137-145); Total Bilirubin 0.5 mg/dL (0.2-1.3); Total Protein 6.6 g/dL (6.3-8.2)
[2018-06-19 12:48] LABS: AST 38 U/L (14-36); Potassium 5.3 mmol/L (3.5-5.1)
[2018-06-19 12:49] LABS: ALT 33 U/L (9-52); Alkaline Phosphatase 85 U/L (38-126)
[2018-06-19 13:36] VITALS: BP 126/90; PULSE 78
== END 2018-06-19 13:40 | disposition home or self-care (01) ==
LOC: EC 10:51
DX: R20.2 Paresthesia of skin (principal); R50.9 Fever, unspecified; R94.31 Abnormal electrocardiogram [ECG] [EKG]; R53.83 Other fatigue; R20.0 Anesthesia of skin; E78.5 Hyperlipidemia, unspecified; I11.0 Hypertensive heart disease with heart failure; I50.9 Heart failure, unspecified; J44.9 Chronic obstructive pulmonary disease, unspecified; F31.9 Bipolar disorder, unspecified; G25.81 Restless legs syndrome; F41.9 Anxiety disorder, unspecified; E03.9 Hypothyroidism, unspecified; K21.9 Gastro-esophageal reflux disease without esophagitis; G89.29 Other chronic pain; Z88.0 Allergy status to penicillin; Z88.2 Allergy status to sulfonamides; Z88.7 Allergy status to serum and vaccine; Z88.8 Allergy status to other drugs, medicaments and biological substances; Z79.899 Other long term (current) drug therapy; Z95.9 Presence of cardiac and vascular implant and graft, unspecified; Z82.49 Family history of ischemic heart disease and other diseases of the circulatory system
CPT/HCPCS: 36415; 71046; 80053; 81003; 83605; 84484; 85025; 85610; 85730; 87077; 87086; 87186; 93005; 96360; 99284

== ENCOUNTER 2018-06-22 14:51 | Emergency (ER) | payer MEDICARE, OTHER ==
[2018-06-22 15:01] VITALS: BP 142/78; PULSE 75; RESP 22; TEMP 98.1
[2018-06-22] MEDS ORDERED: SODIUM CHLORIDE 0.9% 1,000 ML IV STA (15:02)
[2018-06-22] MEDS ORDERED: ONDANSETRON 4 MG/2 ML VIAL IVP STA (15:02)
--- NOTE | 2018-06-22 15:16 | ED ---
Nausea/Vomiting/Diarrhea HPI - General Source: patient Mode of arrival: EMS Limitations: no limitations <LashaColton - Last Filed: 06/22/18 15:03> - General Source: patient, EMS Mode of arrival: EMS Limitations: no limitations <Juan Alberto Hutchins - Last Filed: 06/22/18 15:57> - General Chief complaint: Nausea/Vomiting/Diarrhea Stated complaint: NVD Time Seen by Provider: 06/22/18 15:02 - History of Present Illness Initial comments: 58-year-old female presents emergency Department chief complaint nausea vomiting diarrhea. Patient states symptoms started last night. Patient states that she's had more diarrhea than vomiting denies any fevers or chills no chest pain or shortness of breath. Patient denies any moderate, him and she is, hematemesis or coffee-ground emesis. She has no dysuria no hematuria. Patient states that she's had no contacts with some her symptoms. She states she was started on respiratory injection and believes this may have caused her symptoms. (Juan Alberto Hutchins) - Related Data Home Medications Medication Instructions Recorded Confirmed Mirabegron [Myrbetriq] 50 mg PO DAILY 05/23/17 06/19/18 Atorvastatin [Lipitor] 10 mg PO HS 06/07/17 06/19/18 Carvedilol [Coreg] 25 mg PO BID 06/07/17 06/19/18 Cholecalciferol [Vitamin D3] 1,000 unit PO DAILY 06/07/17 06/19/18 Loratadine [Claritin] 10 mg PO DAILY 06/07/17 06/19/18 Multivitamins, Thera [Multivitamin 1 tab PO DAILY 06/07/17 06/19/18 (formulary)] Omeprazole 20 mg PO DAILY 06/07/17 06/19/18 Levothyroxine Sodium [Synthroid] 137 mcg PO DAILY 10/20/17 06/19/18 hydrALAZINE HCL [Apresoline] 50 mg PO TID 10/20/17 06/19/18 Furosemide [Lasix] 40 mg PO BID 01/08/18 06/19/18 Potassium Chloride ER [K-Dur 10] 20 meq PO DAILY 03/19/18 06/19/18 DULoxetine HCL [Cymbalta] 60 mg PO DAILY 03/31/18 06/19/18 rOPINIRole HCL 4 mg PO BID 03/31/18 06/19/18 Gabapentin [Neurontin] 100 mg PO BID 06/06/18 06/19/18 Metolazone [Zaroxolyn] 2.5 mg PO DAILY 06/06/18 06/19/18 Mirtazapine [Remeron] 30 mg PO HS 06/06/18 06/19/18 risperiDONE MICROSPHERES 12.5 mg IM Q14D 06/06/18 06/19/18 [RisperDAL CONSTA] Albuterol Inhaler [Ventolin Hfa 2 puff INHALATION RT-QID PRN 06/10/18 06/19/18 Inhaler] Hydrocodone/Acetaminophen [[place] 1 tab PO Q6HR PRN 06/19/18 06/19/18 5-325] Previous Rx's Medication Instructions Recorded Rivaroxaban [Xarelto] 20 mg PO DAILY 90 Days #90 tab 11/18/17 Cyclobenzaprine [Flexeril] 10 mg PO TID #14 tab 06/06/18 Dicyclomine [Bentyl] 20 mg PO TID #30 tablet 06/22/18 Ondansetron Odt [Zofran Odt] 4 mg PO Q8HR PRN #10 tab 06/22/18 Allergies Allergy/AdvReac Type Severity Reaction Status Date / Time buspirone [From BuSpar] Allergy Unknown Verified 06/19/18 11:52 haloperidol [From Haldol] Allergy Swelling Verified 06/19/18 11:52 iodine Allergy Swelling Verified 06/19/18 11:52 Penicillins Allergy Swelling Verified 06/19/18 11:52 prochlorperazine Allergy Rash/Hives Verified 06/19/18 11:52 Sulfa (Sulfonamide Allergy Rash/Hives Verified 06/19/18 11:52 Antibiotics) Tetanus Vaccines and Toxoid Allergy Rash/Hives Verified 06/19/18 11:52 [Tetanus Vaccines & Toxoid] trifluoperazine HCl Allergy Unknown Verified 06/19/18 11:52 [From Stelazine] hydroxyzine [From Vistaril] AdvReac Rash/Hives Verified 06/19/18 11:52 Review of Systems ROS Other: All systems not noted in ROS Statement are negative. <Colton Colby - Last Filed: 06/22/18 15:03> ROS Other: All systems not noted in ROS Statement are negative. <AronkeiraJuan Alberto - Last Filed: 06/22/18 15:57> ROS Statement: Those systems with pertinent positive or pertinent negative responses have been documented in the HPI. Past Medical History Past Medical History: Asthma, Heart Failure, COPD, Diabetes Mellitus, GERD/ Reflux, Hyperlipidemia, Hypertension, Musculoskeletal Disorder, Osteoarthritis ( OA), Pneumonia, Pulmonary Embolus (PE), Thyroid Disorder Additional Past Medical History / Comment(s): Pt recently admitted to [facility] on with exacerbation COPD, asthma and possible pneumonia. Other hx: NIDDM type II but pt states no longer has to monitor blood sugars at home, chronic low back pain, herniated discs, RLS, leg edema, recent L leg cellulitis, anemia , gout bilateral feet, hypothyroid, UTIs History of Any Multi-Drug Resistant Organisms: None Reported Past Surgical History: Bariatric Surgery, Heart Catheterization, Hernia Repair, Orthopedic Surgery Additional Past Surgical History / Comment(s): Total Right knee replacement, 3 abdominal hernia repairs, left hip repair d/t fracture, gastric bypass/revision , colonoscopy. Past Anesthesia/Blood Transfusion Reactions: No Reported Reaction Past Psychological History: Anxiety, Bipolar, Depression, Panic Disorder, PTSD Smoking Status: Never smoker Past Alcohol Use History: None Reported Past Drug Use History: None Reported - Past Family History Mother Family Medical History: Cancer Additional Family Medical History / Comment(s): lung cancer Father Family Medical History: Diabetes Mellitus Additional Family Medical History / Comment(s): "my dad from a blood clot that traveled from his leg to his lung and also caused a heart attack." Brother(s) Family Medical History: Diabetes Mellitus Sister(s) Additional Family Medical History / Comment(s): "her heart races too fast" <Colton Colby - Last Filed: 06/22/18 15:03> General Exam Limitations: no limitations <Colton Colby - Last Filed: 06/22/18 15:03> Limitations: no limitations General appearance: alert, in no apparent distress Head exam: Present: atraumatic, normocephalic, normal inspection Neck exam: Present: normal inspection, full ROM. Absent: tenderness, meningismus, lymphadenopathy Respiratory exam: Present: normal lung sounds bilaterally. Absent: respiratory distress, wheezes, rales, rhonchi, stridor Cardiovascular Exam: Present: regular rate, normal rhythm, normal heart sounds. Absent: systolic murmur, diastolic murmur, rubs, gallop, clicks GI/Abdominal exam: Present: soft, normal bowel sounds. Absent: distended, tenderness, guarding, rebound, rigid Neurological exam: Present: alert, oriented X3, CN II-XII intact Skin exam: Present: warm, dry, intact, normal color. Absent: rash <Juan Alberto Hutchins - Last Filed: 06/22/18 15:57> Vital Signs 06/22/18 14:52 Temperature 98.1 F Pulse Rate 75 Respiratory 22 Rate Blood Pressure 142/78 O2 Sat by Pulse 99 Oximetry Medical Decision Making <Colton Colby - Last Filed: 06/22/18 15:03> - Lab Data Result diagrams: 06/22/18 15:04 06/22/18 15:04 <Juan Alberto Hutchins - Last Filed: 06/22/18 15:57> - Medical Decision Making 58-year-old female presented for nausea, vomiting, diarrhea. Patient has gastroenteritis. Lab work was reviewed no acute abnormality from her normal baseline. Patient has improvement after Zofran IV fluids. (Juan Alberto Hutchins) - Lab Data Lab Results 06/22/18 06/22/18 06/22/18 Range/Units 15:04 15:04 15:20 WBC 8.4 (3.8-10.6) k/uL RBC 3.79 L (3.80-5.40) m/uL Hgb 9.5 L (11.4-16.0) gm/dL Hct 30.1 L (34.0-46.0) % MCV 79.2 L (80.0-100.0) fL MCH 25.0 (25.0-35.0) pg MCHC 31.6 (31.0-37.0) g/dL RDW 15.4 (11.5-15.5) % Plt Count 351 (150-450) k/uL Neutrophils % 72 % Lymphocytes % 17 % Monocytes % 6 % Eosinophils % 2 % Basophils % 0 % Neutrophils # 6.0 (1.3-7.7) k/uL Lymphocytes # 1.4 (1.0-4.8) k/uL Monocytes # 0.5 (0-1.0) k/uL Eosinophils # 0.2 (0-0.7) k/uL Basophils # 0.0 (0-0.2) k/uL Hypochromasia Moderate Sodium 139 (137-145) mmol/L Potassium 5.0 (3.5-5.1) mmol/L Chloride 105 (98-107) mmol/L Carbon Dioxide 26 (22-30) mmol/L Anion Gap 8 mmol/L BUN 25 H (7-17) mg/dL Creatinine 0.67 (0.52-1.04) mg/dL Est GFR (CKD-EPI)AfAm >90 (>60 ml/min/1.73 sqM) Est GFR (CKD-EPI)NonAf >90 (>60 ml/min/1.73 sqM) Glucose 93 (74-99) mg/dL Calcium 9.4 (8.4-10.2) mg/dL Total Bilirubin 0.2 (0.2-1.3) mg/dL AST 27 (14-36) U/L ALT 33 (9-52) U/L Alkaline Phosphatase 90 (38-126) U/L Total Protein 6.4 (6.3-8.2) g/dL Albumin 3.7 (3.5-5.0) g/dL Amylase 48 (30-110) U/L Lipase 129 (23-300) U/L Urine Color Light Yellow Urine Appearance Clear (Clear) Urine pH 6.0 (5.0-8.0) Ur Specific [place] 1.008 (1.001-1.035) Urine Protein Negative (Negative) Urine Glucose (UA) Negative (Negative) Urine Ketones Negative (Negative) Urine Blood Negative (Negative) Urine Nitrite Negative (Negative) Urine Bilirubin Negative (Negative) Urine Urobilinogen <2.0 (<2.0) mg/dL Ur Leukocyte Esterase Negative (Negative) Disposition <Colton Colby - Last Filed: 06/22/18 15:03> Is patient prescribed a controlled substance at d/c from ED?: No Time of Disposition: 15:57 <Juan Alberto Hutchins - Last Filed: 06/22/18 15:57> Clinical Impression: Gastroenteritis Disposition: HOME SELF-CARE Condition: Stable Instructions: Gastroenteritis (ED) Additional Instructions: Please return to the Emergency Department if symptoms worsen or any other concerns. Prescriptions: Dicyclomine [Bentyl] 20 mg PO TID #30 tablet Ondansetron Odt [Zofran Odt] 4 mg PO Q8HR PRN #10 tab PRN Reason: Nausea Referrals: Libra Umaña MD [Primary Care Provider] - 1-2 days
[2018-06-22 15:23] LABS: Basophils % (A) 0 %; Eosinophils # (A) 0.2 k/uL (0-0.7); Eosinophils % (A) 2 %; HCT 30.1 % (34.0-46.0); HGB 9.5 gm/dL (11.4-16.0); Hypochromasia Moderate; Lymphocytes # (A) 1.4 k/uL (1.0-4.8); Lymphocytes % (A) 17 %; MCHC 31.6 g/dL (31.0-37.0); MCV 79.2 fL (80.0-100.0); Mean Platelet Volume 7.3; Monocytes # (A) 0.5 k/uL (0-1.0); Monocytes % (A) 6 %; Neutrophils % (A) 72 %; Platelet Count 351 k/uL (150-450); RBC 3.79 m/uL (3.80-5.40); RDW 15.4 % (11.5-15.5); WBC 8.4 k/uL (3.8-10.6)
[2018-06-22 15:33] LABS: ALT 33 U/L (9-52); AST 27 U/L (14-36); Albumin 3.7 g/dL (3.5-5.0); Alkaline Phosphatase 90 U/L (38-126); Amylase 48 U/L (30-110); Anion Gap 8 mmol/L; Blood Urea Nitrogen 25 mg/dL (7-17); Calcium 9.4 mg/dL (8.4-10.2); Carbon Dioxide 26 mmol/L (22-30); Chloride 105 mmol/L (98-107); Glucose 93 mg/dL (74-99); Lipase 129 U/L (23-300); Sodium 139 mmol/L (137-145); Total Bilirubin 0.2 mg/dL (0.2-1.3); Total Protein 6.4 g/dL (6.3-8.2)
[2018-06-22 15:35] LABS: Appearance,Urine Clear (Clear); Bilirubin,Urine Negative (Negative); Blood,Urine Negative (Negative); Color,Urine Light Yellow; Glucose,Urine (UA) Negative (Negative); Ketones,Urine Negative (Negative); Leukocyte Esterase,Urine Negative (Negative); Nitrite,Urine Negative (Negative); Protein,Urine Negative (Negative); Specific Gravity,Urine 1.008 (1.001-1.035); Urobilinogen,Urine <2.0 mg/dL (<2.0)
== END 2018-06-22 16:23 | disposition home or self-care (01) ==
LOC: EC 14:51
DX: K52.9 Noninfective gastroenteritis and colitis, unspecified (principal); J44.9 Chronic obstructive pulmonary disease, unspecified; I11.0 Hypertensive heart disease with heart failure; I50.9 Heart failure, unspecified; K21.9 Gastro-esophageal reflux disease without esophagitis; E78.5 Hyperlipidemia, unspecified; M19.90 Unspecified osteoarthritis, unspecified site; E03.9 Hypothyroidism, unspecified; G25.81 Restless legs syndrome; F31.9 Bipolar disorder, unspecified; F41.0 Panic disorder [episodic paroxysmal anxiety]; F43.10 Post-traumatic stress disorder, unspecified; Z95.818 Presence of other cardiac implants and grafts; Z96.651 Presence of right artificial knee joint; Z79.899 Other long term (current) drug therapy; Z88.0 Allergy status to penicillin; Z88.7 Allergy status to serum and vaccine; Z88.2 Allergy status to sulfonamides; Z88.8 Allergy status to other drugs, medicaments and biological substances; Z53.8 Procedure and treatment not carried out for other reasons
CPT/HCPCS: 36415; 80053; 81003; 82150; 83690; 85025; 96360; 99284

== ENCOUNTER 2018-06-24 00:40 | Emergency (ER) | payer MEDICARE, OTHER ==
[2018-06-24 00:51] VITALS: BP 159/78; PULSE 90; RESP 19
--- NOTE | 2018-06-24 02:21 | ED ---
Anxiety HPI - General Chief Complaint: Anxiety Stated Complaint: Anxiety Time Seen by Provider: 06/24/18 01:09 Source: patient, EMS Mode of arrival: EMS - History of Present Illness Initial Comments: Magda is a 58-year-old female very well-known to our emergency department for her frequent visits. Patient presents the ED today via EMS for evaluation of anxiety. Patient reports that her guardian did not pay her cable or telephone bill and her cable television and her cell phone were both turned off. Patient reports that this is caused her a lot of anxiety and inability to sleep throughout the night so she called 911 for transfer to the emergency department. Patient also reports that her guardian was late pain her room by 2 months but that her rent is now caught up. Patient also states that she doesn't have much food in the home and hasn't had any food stamps since . She has talked to her guardian about this. presents the emergency department requesting by mouth angiolytics. - Related Data Home Medications: Home Medications Medication Instructions Recorded Confirmed Mirabegron [Myrbetriq] 50 mg PO DAILY 05/23/17 06/19/18 Atorvastatin [Lipitor] 10 mg PO HS 06/07/17 06/19/18 Carvedilol [Coreg] 25 mg PO BID 06/07/17 06/19/18 Cholecalciferol [Vitamin D3] 1,000 unit PO DAILY 06/07/17 06/19/18 Loratadine [Claritin] 10 mg PO DAILY 06/07/17 06/19/18 Multivitamins, Thera [Multivitamin 1 tab PO DAILY 06/07/17 06/19/18 (formulary)] Omeprazole 20 mg PO DAILY 06/07/17 06/19/18 Levothyroxine Sodium [Synthroid] 137 mcg PO DAILY 10/20/17 06/19/18 hydrALAZINE HCL [Apresoline] 50 mg PO TID 10/20/17 06/19/18 Furosemide [Lasix] 40 mg PO BID 01/08/18 06/19/18 Potassium Chloride ER [K-Dur 10] 20 meq PO DAILY 03/19/18 06/19/18 DULoxetine HCL [Cymbalta] 60 mg PO DAILY 03/31/18 06/19/18 rOPINIRole HCL 4 mg PO BID 03/31/18 06/19/18 Gabapentin [Neurontin] 100 mg PO BID 06/06/18 06/19/18 Metolazone [Zaroxolyn] 2.5 mg PO DAILY 06/06/18 06/19/18 Mirtazapine [Remeron] 30 mg PO HS 06/06/18 06/19/18 risperiDONE MICROSPHERES 12.5 mg IM Q14D 06/06/18 06/19/18 [RisperDAL CONSTA] Albuterol Inhaler [Ventolin Hfa 2 puff INHALATION RT-QID PRN 06/10/18 06/19/18 Inhaler] Hydrocodone/Acetaminophen [[place] 1 tab PO Q6HR PRN 06/19/18 06/19/18 5-325] Previous Rx's Medication Instructions Recorded Rivaroxaban [Xarelto] 20 mg PO DAILY 90 Days #90 tab 11/18/17 Cyclobenzaprine [Flexeril] 10 mg PO TID #14 tab 06/06/18 Dicyclomine [Bentyl] 20 mg PO TID #30 tablet 06/22/18 Ondansetron Odt [Zofran Odt] 4 mg PO Q8HR PRN #10 tab 06/22/18 Allergies/Adverse Reactions: Allergies Allergy/AdvReac Type Severity Reaction Status Date / Time buspirone [From BuSpar] Allergy Unknown Verified 06/19/18 11:52 haloperidol [From Haldol] Allergy Swelling Verified 06/19/18 11:52 iodine Allergy Swelling Verified 06/19/18 11:52 Penicillins Allergy Swelling Verified 06/19/18 11:52 prochlorperazine Allergy Rash/Hives Verified 06/19/18 11:52 Sulfa (Sulfonamide Allergy Rash/Hives Verified 06/19/18 11:52 Antibiotics) Tetanus Vaccines and Toxoid Allergy Rash/Hives Verified 06/19/18 11:52 [Tetanus Vaccines & Toxoid] trifluoperazine HCl Allergy Unknown Verified 06/19/18 11:52 [From Stelazine] hydroxyzine [From Vistaril] AdvReac Rash/Hives Verified 06/19/18 11:52 Review of Systems ROS Statement: Those systems with pertinent positive or pertinent negative responses have been documented in the HPI. ROS Other: All systems not noted in ROS Statement are negative. Past Medical History Past Medical History: Asthma, Heart Failure, COPD, Diabetes Mellitus, GERD/ Reflux, Hyperlipidemia, Hypertension, Musculoskeletal Disorder, Osteoarthritis ( OA), Pneumonia, Pulmonary Embolus (PE), Thyroid Disorder Additional Past Medical History / Comment(s): Pt recently admitted to [facility] on with exacerbation COPD, asthma and possible pneumonia. Other hx: NIDDM type II but pt states no longer has to monitor blood sugars at home, chronic low back pain, herniated discs, RLS, leg edema, recent L leg cellulitis, anemia , gout bilateral feet, hypothyroid, UTIs History of Any Multi-Drug Resistant Organisms: None Reported Past Surgical History: Bariatric Surgery, Heart Catheterization, Hernia Repair, Orthopedic Surgery Additional Past Surgical History / Comment(s): Total Right knee replacement, 3 abdominal hernia repairs, left hip repair d/t fracture, gastric bypass/revision , colonoscopy. Past Anesthesia/Blood Transfusion Reactions: No Reported Reaction Past Psychological History: Anxiety, Bipolar, Depression, Panic Disorder, PTSD Smoking Status: Never smoker Past Alcohol Use History: None Reported Past Drug Use History: None Reported - Past Family History Mother Family Medical History: Cancer Additional Family Medical History / Comment(s): lung cancer Father Family Medical History: Diabetes Mellitus Additional Family Medical History / Comment(s): "my dad from a blood clot that traveled from his leg to his lung and also caused a heart attack." Brother(s) Family Medical History: Diabetes Mellitus Sister(s) Additional Family Medical History / Comment(s): "her heart races too fast" General Exam - General Exam Comments Initial Comments: Physical Exam GENERAL: Morbidly obese, chronically ill-appearing female in no acute distress, sleeping comfortably in bed when I initially evaluated her HENT: Normocephalic, Atraumatic. EYES: PERRL, EOMI PULMONARY: Decreased breath sounds bilateral bases likely secondary to morbid obesity CARDIOVASCULAR: There is a regular rate and rhythm without any murmurs gallops or rubs. ABDOMEN: Soft and nontender with normal bowel sounds. SKIN: Skin is clear with no lesions or rashes and otherwise unremarkable. : Deferred NEUROLOGIC: Patient is alert and oriented x3. Moving all extremities spontaneously MUSCULOSKELETAL: Normal extremities with adequate strength and full range of motion. No lower extremity swelling or edema. No calf tenderness. PSYCHIATRIC: Appears comfortable, denies suicidal had homicidal ideation, reports feeling anxious Limitations: no limitations Course Vital Signs 06/24/18 00:46 Temperature 98.2 F Pulse Rate 90 Respiratory 19 Rate Blood Pressure 159/78 O2 Sat by Pulse 99 Oximetry Medical Decision Making - Medical Decision Making The patient was seen and evaluated, history was obtained from the patient Patient reports feeling anxious over having her telephone disconnected, as well as her cable TV. Patient reports her guardian has not been paying her bills. Patient requesting oral anxiolytics, I advised the patient that we will let her rest here throughout the night, we'll provide her with food, she can discuss her problems with case management or social work in the morning. I advised the patient that I don't feel that giving her anxiolytics will fix the problems causing her anxiety. Patient was resting comfortably upon my initial evaluation and does not appear to be anxious. After resting in the hospital for approximately an hour and a half the patient states that she is feeling better and would like to be discharged home to sleep in her own home. Return parameters discussed, I advised the patient to contact her guardian in the morning to discuss her concerns. Disposition Clinical Impression: Acute anxiety Disposition: HOME SELF-CARE Condition: Stable Instructions: Generalized Anxiety Disorder (ED) Is patient prescribed a controlled substance at d/c from ED?: No Referrals: Libra Umaña MD [Primary Care Provider] - 1-2 days
[2018-06-24 02:45] VITALS: TEMP 97.9
== END 2018-06-24 02:26 | disposition home or self-care (01) ==
LOC: EC 00:40
DX: F41.9 Anxiety disorder, unspecified (principal); J44.9 Chronic obstructive pulmonary disease, unspecified; K21.9 Gastro-esophageal reflux disease without esophagitis; E78.5 Hyperlipidemia, unspecified; I11.0 Hypertensive heart disease with heart failure; I50.9 Heart failure, unspecified; E03.9 Hypothyroidism, unspecified; M19.90 Unspecified osteoarthritis, unspecified site; F31.9 Bipolar disorder, unspecified; F43.10 Post-traumatic stress disorder, unspecified; Z86.711 Personal history of pulmonary embolism; Z98.84 Bariatric surgery status; Z98.890 Other specified postprocedural states; Z96.651 Presence of right artificial knee joint; Z79.899 Other long term (current) drug therapy; Z88.0 Allergy status to penicillin; Z88.2 Allergy status to sulfonamides; Z88.7 Allergy status to serum and vaccine; Z88.8 Allergy status to other drugs, medicaments and biological substances
CPT/HCPCS: 99283

== ENCOUNTER 2018-06-28 15:10 | Emergency (ER) | payer MEDICARE, OTHER ==
--- NOTE | 2018-06-28 15:19 | ED ---
Chest Pain HPI - General Stated Complaint: Chest pain Time Seen by Provider: 06/28/18 15:13 - History of Present Illness Initial Comments: Patient is a 58-year-old female presenting for shortness of breath and chest pain. The patient stated that around 10 PM, she started having her typical shortness of breath while at rest and it was constant and worsened with exertion when she walks around. When she was walking around this morning she again had chest pain which is constant and felt like a pressure sensation that is almost completely resolved. She admits to some mild coughing but no fevers. The pain also does not radiate and she declined nitro in route because it gives her headaches. She admits to some GI symptoms in the sense that she has had some diarrhea but no vomiting or nausea. - Related Data Home Medications Medication Instructions Recorded Confirmed Mirabegron [Myrbetriq] 50 mg PO DAILY 05/23/17 06/28/18 Atorvastatin [Lipitor] 10 mg PO HS 06/07/17 06/28/18 Carvedilol [Coreg] 25 mg PO BID 06/07/17 06/28/18 Cholecalciferol [Vitamin D3] 1,000 unit PO DAILY 06/07/17 06/28/18 Loratadine [Claritin] 10 mg PO DAILY 06/07/17 06/28/18 Multivitamins, Thera [Multivitamin 1 tab PO DAILY 06/07/17 06/28/18 (formulary)] Omeprazole 20 mg PO DAILY 06/07/17 06/28/18 Levothyroxine Sodium [Synthroid] 137 mcg PO DAILY 10/20/17 06/28/18 hydrALAZINE HCL [Apresoline] 50 mg PO TID 10/20/17 06/28/18 Furosemide [Lasix] 40 mg PO BID 01/08/18 06/28/18 Potassium Chloride ER [K-Dur 10] 20 meq PO DAILY 03/19/18 06/28/18 DULoxetine HCL [Cymbalta] 60 mg PO DAILY 03/31/18 06/28/18 rOPINIRole HCL 4 mg PO BID 03/31/18 06/28/18 Gabapentin [Neurontin] 100 mg PO BID 06/06/18 06/28/18 Metolazone [Zaroxolyn] 2.5 mg PO DAILY 06/06/18 06/28/18 Mirtazapine [Remeron] 30 mg PO HS 06/06/18 06/28/18 risperiDONE MICROSPHERES 12.5 mg IM Q14D 06/06/18 06/28/18 [RisperDAL CONSTA] Albuterol Inhaler [Ventolin Hfa 2 puff INHALATION RT-QID PRN 06/10/18 06/28/18 Inhaler] Montelukast [Singulair] 10 mg PO HS 06/28/18 06/28/18 Zanaflex (Unknown) 1 tab PO DAILY 06/28/18 06/28/18 Previous Rx's Medication Instructions Recorded Rivaroxaban [Xarelto] 20 mg PO DAILY 90 Days #90 tab 11/18/17 Allergies Allergy/AdvReac Type Severity Reaction Status Date / Time buspirone [From BuSpar] Allergy Unknown Verified 06/28/18 16:09 haloperidol [From Haldol] Allergy Swelling Verified 06/28/18 16:09 iodine Allergy Swelling Verified 06/28/18 16:09 Penicillins Allergy Swelling Verified 06/28/18 16:09 prochlorperazine Allergy Rash/Hives Verified 06/28/18 16:09 Sulfa (Sulfonamide Allergy Rash/Hives Verified 06/28/18 16:09 Antibiotics) Tetanus Vaccines and Toxoid Allergy Rash/Hives Verified 06/28/18 16:09 [Tetanus Vaccines & Toxoid] trifluoperazine HCl Allergy Unknown Verified 06/28/18 16:09 [From Stelazine] hydroxyzine [From Vistaril] AdvReac Rash/Hives Verified 06/28/18 16:09 Review of Systems ROS Statement: Those systems with pertinent positive or pertinent negative responses have been documented in the HPI. Constitutional: Negative for chills, fatigue and fever. HENT: Negative for congestion. Respiratory: Negative for chest tightness, and wheezing. Positive for cough and shortness of breath Cardiovascular: Negative for and palpitations. Positive for chest pain Gastrointestinal: Negative for abdominal pain. Negative for abdominal distention , nausea and vomiting. Positive for diarrhea Genitourinary: Negative for dysuria. Musculoskeletal: Negative for back pain, neck pain and neck stiffness. Skin: Negative for color change. Neurological: Negative for dizziness, speech difficulty, weakness and light- headedness. Psychiatric/Behavioral: Negative for agitation and confusion. Negative for anxiety ROS Other: All systems not noted in ROS Statement are negative. EKG Findings - EKG Comments: EKG Findings:: EKG shows normal sinus rhythm with a rate of 85 bpm, VA interval 148, QRS duration 86, QTC 437. There are no significant ST depressions or elevations. Past Medical History Past Medical History: Asthma, Heart Failure, COPD, Diabetes Mellitus, GERD/ Reflux, Hyperlipidemia, Hypertension, Musculoskeletal Disorder, Osteoarthritis ( OA), Pneumonia, Pulmonary Embolus (PE), Thyroid Disorder Additional Past Medical History / Comment(s): Pt recently admitted to [facility] on with exacerbation COPD, asthma and possible pneumonia. Other hx: NIDDM type II but pt states no longer has to monitor blood sugars at home, chronic low back pain, herniated discs, RLS, leg edema, recent L leg cellulitis, anemia , gout bilateral feet, hypothyroid, UTIs History of Any Multi-Drug Resistant Organisms: None Reported Past Surgical History: Bariatric Surgery, Heart Catheterization, Hernia Repair, Orthopedic Surgery Additional Past Surgical History / Comment(s): Total Right knee replacement, 3 abdominal hernia repairs, left hip repair d/t fracture, gastric bypass/revision , colonoscopy. Past Anesthesia/Blood Transfusion Reactions: No Reported Reaction Past Psychological History: Anxiety, Bipolar, Depression, Panic Disorder, PTSD Smoking Status: Never smoker Past Alcohol Use History: None Reported Past Drug Use History: None Reported - Past Family History Mother Family Medical History: Cancer Additional Family Medical History / Comment(s): lung cancer Father Family Medical History: Diabetes Mellitus Additional Family Medical History / Comment(s): "my dad from a blood clot that traveled from his leg to his lung and also caused a heart attack." Brother(s) Family Medical History: Diabetes Mellitus Sister(s) Additional Family Medical History / Comment(s): "her heart races too fast" General Exam - General Exam Comments Initial Comments: Constitutional: Pt is oriented to person, place, and time. Pt appears well- developed and well-nourished. No distress. HENT: Head: Normocephalic and atraumatic. Eyes: EOM are normal. Neck: Normal range of motion. Neck supple. Cardiovascular: Normal rate, regular rhythm, S1 normal, S2 normal and normal heart sounds. Exam reveals no gallop and no friction rub. No murmur heard. Pulmonary/Chest: Effort normal and breath sounds normal. No tachypnea and no bradypnea. No respiratory distress. No wheezes or rales noted. Abdominal: Soft. Bowel sounds are normal. Pt exhibits no shifting dullness, no distension, no pulsatile liver, no fluid wave, no abdominal bruit and no ascites. There is no tenderness. There is no rigidity, no rebound, no guarding, no tenderness at McBurney's point and negative Little's sign. Musculoskeletal: Normal range of motion. Neurological: Pt is alert and oriented to person, place, and time. No cranial nerve deficit. Skin: Skin is warm and dry. No rash noted. Pt is not diaphoretic. No erythema. No pallor. Psychiatric: Pt has a normal mood and affect. Pt behavior is normal. Thought content normal. Course Vital Signs 06/28/18 06/28/18 06/28/18 15:21 15:30 16:00 Temperature 98.2 F Pulse Rate 89 89 Respiratory 18 16 Rate Blood Pressure 162/77 162/77 150/70 O2 Sat by Pulse 99 Oximetry - Reevaluation(s) Reevaluation #1: 06/28/18 17:55 Patient asked to leave and it was explained that she should have serial troponins completed. Patient became very belligerent and started yelling and screaming and stated she wanted to leave I told her that she would have to leave AGAINST MEDICAL ADVICE and she stated that she did not do so because she had legal guardian. Nursing staff contacted the legal guardian and they stated that the patient didn't need to stay here for the second troponin. Patient continues to yell and scream and be very combative. However, anxiolytics will be withheld as a second troponin is due in 30 minutes and we do not wish to overly sedate her prior to discharge. Reevaluation #2: 06/28/18 18:07 Case is discussed with guardian and she agreed with current course of treatment. He was also explained that there is concern about physical violence with the staff in therefore the troponin will be drawn early and she will be discharged if this is negative. Patient continues to be verbally abusive to staff and at this time we are not restraining the patient as she allowed a blood draw. Chest Pain MDM - MDM As documented in the course section of this note, patient was belligerent and aggressive and violent at times and therefore it is felt that it was unsafe for the staff to hold her here in the emergency department longer than required. Therefore, a second troponin was drawn approximate 20 minutes early and was noted to be negative. Patient was counseled that she should follow up on an outpatient basis with cardiology. This is also communicated to guardian Disposition Clinical Impression: Chest pain Disposition: HOME SELF-CARE Condition: Good Instructions: Chest Pain (ED) Is patient prescribed a controlled substance at d/c from ED?: No Referrals: Libra Umaña MD [Primary Care Provider] - 1-2 days Quique Lenz MD [STAFF PHYSICIAN] - 1-2 days Time of Disposition: 18:44
[2018-06-28 15:23] VITALS: PULSE 89; TEMP 98.2
[2018-06-28 15:44] LABS: Basophils % (A) 0 %; Eosinophils # (A) 0.1 k/uL (0-0.7); Eosinophils % (A) 1 %; HCT 30.5 % (34.0-46.0); HGB 9.5 gm/dL (11.4-16.0); Hypochromasia Moderate; Lymphocytes # (A) 1.2 k/uL (1.0-4.8); Lymphocytes % (A) 17 %; MCH 24.5 pg (25.0-35.0); MCHC 31.2 g/dL (31.0-37.0); MCV 78.5 fL (80.0-100.0); Mean Platelet Volume 6.9; Monocytes # (A) 0.4 k/uL (0-1.0); Monocytes % (A) 6 %; Neutrophils # (A) 5.2 k/uL (1.3-7.7); Neutrophils % (A) 72 %; Platelet Count 327 k/uL (150-450); RBC 3.89 m/uL (3.80-5.40); RDW 15.5 % (11.5-15.5); WBC 7.2 k/uL (3.8-10.6)
[2018-06-28 15:54] LABS: ALT 27 U/L (9-52); AST 29 U/L (14-36); Albumin 3.8 g/dL (3.5-5.0); Alkaline Phosphatase 97 U/L (38-126); Anion Gap 9 mmol/L; Blood Urea Nitrogen 20 mg/dL (7-17); Calcium 9.4 mg/dL (8.4-10.2); Carbon Dioxide 25 mmol/L (22-30); Chloride 105 mmol/L (98-107); Glucose 98 mg/dL (74-99); Magnesium 1.9 mg/dL (1.6-2.3); Sodium 139 mmol/L (137-145); Total Bilirubin 0.3 mg/dL (0.2-1.3); Total Protein 6.7 g/dL (6.3-8.2)
--- NOTE | 2018-06-28 16:06 | XR ---
EXAMINATION TYPE: XR chest 2V DATE OF EXAM: 06/28/2018 COMPARISON: 06/19/2018 HISTORY: Chest pain TECHNIQUE: Frontal and lateral views of the chest are obtained. FINDINGS: Heart and mediastinum are normal. Lungs are clear of consolidation. There is no pleural ef fusion. Bony thorax is intact. There are chest leads. IMPRESSION: No active cardiopulmonary disease. Normal heart.
[2018-06-28 16:08] LABS: Partial Thromboplastin Time 27.3 sec (22.0-30.0)
[2018-06-28 16:53] VITALS: BP 150/70; RESP 16
== END 2018-06-28 19:05 | disposition home or self-care (01) ==
LOC: EC 15:10
DX: R07.9 Chest pain, unspecified (principal); R06.02 Shortness of breath; R05 Cough; J44.1 Chronic obstructive pulmonary disease with (acute) exacerbation; I11.0 Hypertensive heart disease with heart failure; I50.9 Heart failure, unspecified; K21.9 Gastro-esophageal reflux disease without esophagitis; E78.5 Hyperlipidemia, unspecified; M19.90 Unspecified osteoarthritis, unspecified site; E03.9 Hypothyroidism, unspecified; D64.9 Anemia, unspecified; M10.9 Gout, unspecified; G25.81 Restless legs syndrome; F31.9 Bipolar disorder, unspecified; F41.0 Panic disorder [episodic paroxysmal anxiety]; F43.10 Post-traumatic stress disorder, unspecified; Z86.711 Personal history of pulmonary embolism; Z79.899 Other long term (current) drug therapy; Z88.0 Allergy status to penicillin; Z88.2 Allergy status to sulfonamides; Z88.7 Allergy status to serum and vaccine; Z88.8 Allergy status to other drugs, medicaments and biological substances; Z96.651 Presence of right artificial knee joint; Z95.818 Presence of other cardiac implants and grafts
CPT/HCPCS: 36415; 71046; 80053; 83735; 83880; 84484; 85025; 85610; 85730; 93005; 99285

== ENCOUNTER 2018-07-04 01:09 | Emergency (ER) | payer MEDICARE, OTHER ==
[2018-07-04 01:15] VITALS: TEMP 98.2
--- NOTE | 2018-07-04 01:49 | ED ---
Anxiety HPI - General Chief Complaint: Anxiety Stated Complaint: Anxiety Time Seen by Provider: 07/04/18 01:23 Source: patient, EMS Mode of arrival: EMS - History of Present Illness Initial Comments: Magda is a 58-year-old female well-known to the emergency Department who presents today via EMS for evaluation of anxiety. Patient reports that she tried to go to bed around 9:30 at night however [facility] did not refill her Remeron so she didn't get her dose of Remeron before bed and she became very anxious about not taking her medication. Patient states that she hasn't been able sleep because she's been so worried about this so she came to the ER. After arrival in the ER patient was noted to fall asleep within the first 10 minutes, prior to getting any medications. When she was awoken she states that she feels silly because she is feeling better now. also complains of a sore in her nose, she states she's been treating this with topical Neosporin but that it won't heal because she can't stop picking at it. - Related Data Home Medications: Home Medications Medication Instructions Recorded Confirmed Mirabegron [Myrbetriq] 50 mg PO DAILY 05/23/17 06/28/18 Atorvastatin [Lipitor] 10 mg PO HS 06/07/17 06/28/18 Carvedilol [Coreg] 25 mg PO BID 06/07/17 06/28/18 Cholecalciferol [Vitamin D3] 1,000 unit PO DAILY 06/07/17 06/28/18 Loratadine [Claritin] 10 mg PO DAILY 06/07/17 06/28/18 Multivitamins, Thera [Multivitamin 1 tab PO DAILY 06/07/17 06/28/18 (formulary)] Omeprazole 20 mg PO DAILY 06/07/17 06/28/18 Levothyroxine Sodium [Synthroid] 137 mcg PO DAILY 10/20/17 06/28/18 hydrALAZINE HCL [Apresoline] 50 mg PO TID 10/20/17 06/28/18 Furosemide [Lasix] 40 mg PO BID 01/08/18 06/28/18 Potassium Chloride ER [K-Dur 10] 20 meq PO DAILY 03/19/18 06/28/18 DULoxetine HCL [Cymbalta] 60 mg PO DAILY 03/31/18 06/28/18 rOPINIRole HCL 4 mg PO BID 03/31/18 06/28/18 Gabapentin [Neurontin] 100 mg PO BID 06/06/18 06/28/18 Metolazone [Zaroxolyn] 2.5 mg PO DAILY 06/06/18 06/28/18 Mirtazapine [Remeron] 30 mg PO HS 06/06/18 06/28/18 risperiDONE MICROSPHERES 12.5 mg IM Q14D 06/06/18 06/28/18 [RisperDAL CONSTA] Albuterol Inhaler [Ventolin Hfa 2 puff INHALATION RT-QID PRN 06/10/18 06/28/18 Inhaler] Montelukast [Singulair] 10 mg PO HS 06/28/18 06/28/18 Zanaflex (Unknown) 1 tab PO DAILY 06/28/18 06/28/18 Previous Rx's Medication Instructions Recorded Rivaroxaban [Xarelto] 20 mg PO DAILY 90 Days #90 tab 11/18/17 Allergies/Adverse Reactions: Allergies Allergy/AdvReac Type Severity Reaction Status Date / Time buspirone [From BuSpar] Allergy Unknown Verified 07/04/18 01:14 haloperidol [From Haldol] Allergy Swelling Verified 07/04/18 01:14 iodine Allergy Swelling Verified 07/04/18 01:14 Penicillins Allergy Swelling Verified 07/04/18 01:14 prochlorperazine Allergy Rash/Hives Verified 07/04/18 01:14 Sulfa (Sulfonamide Allergy Rash/Hives Verified 07/04/18 01:14 Antibiotics) Tetanus Vaccines and Toxoid Allergy Rash/Hives Verified 07/04/18 01:14 [Tetanus Vaccines & Toxoid] trifluoperazine HCl Allergy Unknown Verified 07/04/18 01:14 [From Stelazine] hydroxyzine [From Vistaril] AdvReac Rash/Hives Verified 07/04/18 01:14 Review of Systems ROS Statement: Those systems with pertinent positive or pertinent negative responses have been documented in the HPI. ROS Other: All systems not noted in ROS Statement are negative. Past Medical History Past Medical History: Asthma, Heart Failure, COPD, Diabetes Mellitus, GERD/ Reflux, Hyperlipidemia, Hypertension, Musculoskeletal Disorder, Osteoarthritis ( OA), Pneumonia, Pulmonary Embolus (PE), Thyroid Disorder Additional Past Medical History / Comment(s): Pt recently admitted to [facility] on with exacerbation COPD, asthma and possible pneumonia. Other hx: NIDDM type II but pt states no longer has to monitor blood sugars at home, chronic low back pain, herniated discs, RLS, leg edema, recent L leg cellulitis, anemia , gout bilateral feet, hypothyroid, UTIs History of Any Multi-Drug Resistant Organisms: None Reported Past Surgical History: Bariatric Surgery, Heart Catheterization, Hernia Repair, Orthopedic Surgery Additional Past Surgical History / Comment(s): Total Right knee replacement, 3 abdominal hernia repairs, left hip repair d/t fracture, gastric bypass/revision , colonoscopy. Past Anesthesia/Blood Transfusion Reactions: No Reported Reaction Past Psychological History: Anxiety, Bipolar, Depression, Panic Disorder, PTSD Smoking Status: Never smoker Past Alcohol Use History: None Reported Past Drug Use History: None Reported - Past Family History Mother Family Medical History: Cancer Additional Family Medical History / Comment(s): lung cancer Father Family Medical History: Diabetes Mellitus Additional Family Medical History / Comment(s): "my dad from a blood clot that traveled from his leg to his lung and also caused a heart attack." Brother(s) Family Medical History: Diabetes Mellitus Sister(s) Additional Family Medical History / Comment(s): "her heart races too fast" General Exam - General Exam Comments Initial Comments: Physical Exam GENERAL: Morbidly obese female in no acute distress HENT: Normocephalic, Atraumatic. EYES: PERRL, EOMI PULMONARY: Unlabored respirations. CARDIOVASCULAR: There is a regular rate and rhythm without any murmurs gallops or rubs. ABDOMEN: Soft and nontender with normal bowel sounds. SKIN: Skin is clear with no lesions or rashes and otherwise unremarkable. : Deferred NEUROLOGIC: Patient is alert and oriented x3. Moving all extremities spontaneously MUSCULOSKELETAL: Normal extremities with adequate strength and full range of motion. No lower extremity swelling or edema. No calf tenderness. PSYCHIATRIC: Childlike affect, Normal psychiatric evaluation. Limitations: no limitations Limitations: no limitations Course Vital Signs 07/04/18 07/04/18 01:12 02:53 Temperature 98.2 F Pulse Rate 96 99 Respiratory 16 20 Rate Blood Pressure 139/68 132/69 O2 Sat by Pulse 95 100 Oximetry Medical Decision Making - Medical Decision Making The patient was seen and evaluated approximately 10 minutes after arrival, she is noted to be sleeping comfortably in bed. I will reevaluate the patient when she wakes. Patient was reevaluated approximately 20 minutes later states that she feels saline now but that she was concerned because she did not have her nightly Remeron. Her nightly dose of Remeron was ordered. Patient is otherwise in her usual state of health with no acute complaints. She does have clear rhinorrhea and some irritation to her Mnire's, she admits that she has been picking at this. Wound care was discussed. Patient resting comfortable, begin requesting to be discharged home prior to receiving a Remeron. Patient then received her Remeron and continued to request to be discharged home so she can sleep in her own bed. As time there are no acute findings the patient is stable for discharge home. Patient was able to ambulate out of the emergency department using her walker without any difficulty. Disposition Clinical Impression: Panic disorder Disposition: HOME SELF-CARE Condition: Good Instructions: Generalized Anxiety Disorder (ED) Additional Instructions: Contact [facility] about refilling your Remeron prescription. Is patient prescribed a controlled substance at d/c from ED?: No Referrals: Dm Bhakta DO [Primary Care Provider] - 1-2 days
[2018-07-04] MEDS: MIRTAZAPINE 15 MG TAB PO STA (02:19)
[2018-07-04 02:54] VITALS: BP 132/69; PULSE 99; RESP 20
== END 2018-07-04 02:54 | disposition home or self-care (01) ==
LOC: EC 01:09
DX: F41.0 Panic disorder [episodic paroxysmal anxiety] (principal); J34.89 Other specified disorders of nose and nasal sinuses; H81.09 Meniere's disease, unspecified ear; I11.0 Hypertensive heart disease with heart failure; I50.9 Heart failure, unspecified; K21.9 Gastro-esophageal reflux disease without esophagitis; E78.5 Hyperlipidemia, unspecified; E03.9 Hypothyroidism, unspecified; F31.9 Bipolar disorder, unspecified; J44.9 Chronic obstructive pulmonary disease, unspecified; M19.90 Unspecified osteoarthritis, unspecified site; E11.9 Type 2 diabetes mellitus without complications; Z79.02 Long term (current) use of antithrombotics/antiplatelets; Z79.899 Other long term (current) drug therapy; Z88.8 Allergy status to other drugs, medicaments and biological substances; Z88.0 Allergy status to penicillin; Z88.2 Allergy status to sulfonamides; Z91.048 Other nonmedicinal substance allergy status; Z88.7 Allergy status to serum and vaccine; Z86.711 Personal history of pulmonary embolism; Z98.84 Bariatric surgery status; Z95.5 Presence of coronary angioplasty implant and graft; Z96.651 Presence of right artificial knee joint
CPT/HCPCS: 99283

== ENCOUNTER 2018-07-07 18:58 | Emergency (ER) | payer MEDICARE, OTHER ==
--- NOTE | 2018-07-07 19:41 | ED ---
Recheck HPI - General Chief Complaint: Recheck/Abnormal Lab/Rx Stated Complaint: flu symptoms Time Seen by Provider: 07/07/18 19:07 Source: patient, RN notes reviewed, old records reviewed Mode of arrival: EMS - History of Present Illness Initial Comments: Patient is a 58-year-old female who presents emergency room today with complaints of fluctuations of her blood sugars in the past weekend. She reports that it was down to 40 and then it went to 400 today when she was shopping at [employer]. Patient states that she also complains a 17 pound weight gain within the past week. Patient states that she's noticed increased swelling in bilateral legs. She denies a significant pain in the legs. She denies any chest pain. She reports that she is breathing well. She is on 40 mg of Lasix daily. Patient states that she's had no other significant complaints at this time. - Related Data Home Medications Medication Instructions Recorded Confirmed Mirabegron [Myrbetriq] 50 mg PO DAILY 05/23/17 07/07/18 Atorvastatin [Lipitor] 10 mg PO HS 06/07/17 07/07/18 Carvedilol [Coreg] 25 mg PO BID 06/07/17 07/07/18 Cholecalciferol [Vitamin D3] 1,000 unit PO DAILY 06/07/17 07/07/18 Loratadine [Claritin] 10 mg PO DAILY 06/07/17 07/07/18 Multivitamins, Thera [Multivitamin 1 tab PO DAILY 06/07/17 07/07/18 (formulary)] Omeprazole 20 mg PO DAILY 06/07/17 07/07/18 Levothyroxine Sodium [Synthroid] 137 mcg PO DAILY 10/20/17 07/07/18 hydrALAZINE HCL [Apresoline] 50 mg PO TID 10/20/17 07/07/18 Furosemide [Lasix] 40 mg PO BID 01/08/18 07/07/18 Potassium Chloride ER [K-Dur 10] 20 meq PO DAILY 03/19/18 07/07/18 DULoxetine HCL [Cymbalta] 60 mg PO DAILY 03/31/18 07/07/18 rOPINIRole HCL 4 mg PO BID 03/31/18 07/07/18 Gabapentin [Neurontin] 100 mg PO BID 06/06/18 07/07/18 Metolazone [Zaroxolyn] 2.5 mg PO DAILY 06/06/18 07/07/18 Mirtazapine [Remeron] 30 mg PO HS 06/06/18 07/07/18 risperiDONE MICROSPHERES 12.5 mg IM Q14D 06/06/18 07/07/18 [RisperDAL CONSTA] Albuterol Inhaler [Ventolin Hfa 2 puff INHALATION RT-QID PRN 06/10/18 07/07/18 Inhaler] Montelukast [Singulair] 10 mg PO HS 06/28/18 07/07/18 tiZANidine HCL [Zanaflex] 4 mg PO DAILY 07/07/18 07/07/18 Previous Rx's Medication Instructions Recorded Rivaroxaban [Xarelto] 20 mg PO DAILY 90 Days #90 tab 11/18/17 Allergies Allergy/AdvReac Type Severity Reaction Status Date / Time buspirone [From BuSpar] Allergy Unknown Verified 07/07/18 19:12 haloperidol [From Haldol] Allergy Swelling Verified 07/07/18 19:12 iodine Allergy Swelling Verified 07/07/18 19:12 Penicillins Allergy Swelling Verified 07/07/18 19:12 prochlorperazine Allergy Rash/Hives Verified 07/07/18 19:12 Sulfa (Sulfonamide Allergy Rash/Hives Verified 07/07/18 19:12 Antibiotics) Tetanus Vaccines and Toxoid Allergy Rash/Hives Verified 07/07/18 19:12 [Tetanus Vaccines & Toxoid] trifluoperazine HCl Allergy Unknown Verified 07/07/18 19:12 [From Stelazine] hydroxyzine [From Vistaril] AdvReac Rash/Hives Verified 07/07/18 19:12 Review of Systems ROS Statement: Those systems with pertinent positive or pertinent negative responses have been documented in the HPI. ROS Other: All systems not noted in ROS Statement are negative. Past Medical History Past Medical History: Asthma, Heart Failure, COPD, Diabetes Mellitus, GERD/ Reflux, Hyperlipidemia, Hypertension, Musculoskeletal Disorder, Osteoarthritis ( OA), Pneumonia, Pulmonary Embolus (PE), Thyroid Disorder Additional Past Medical History / Comment(s): Pt recently admitted to [facility] on with exacerbation COPD, asthma and possible pneumonia. Other hx: NIDDM type II but pt states no longer has to monitor blood sugars at home, chronic low back pain, herniated discs, RLS, leg edema, recent L leg cellulitis, anemia , gout bilateral feet, hypothyroid, UTIs History of Any Multi-Drug Resistant Organisms: None Reported Past Surgical History: Bariatric Surgery, Heart Catheterization, Hernia Repair, Orthopedic Surgery Additional Past Surgical History / Comment(s): Total Right knee replacement, 3 abdominal hernia repairs, left hip repair d/t fracture, gastric bypass/revision , colonoscopy. Past Anesthesia/Blood Transfusion Reactions: No Reported Reaction Past Psychological History: Anxiety, Bipolar, Depression, Panic Disorder, PTSD Smoking Status: Never smoker Past Alcohol Use History: None Reported Past Drug Use History: None Reported - Past Family History Mother Family Medical History: Cancer Additional Family Medical History / Comment(s): lung cancer Father Family Medical History: Diabetes Mellitus Additional Family Medical History / Comment(s): "my dad from a blood clot that traveled from his leg to his lung and also caused a heart attack." Brother(s) Family Medical History: Diabetes Mellitus Sister(s) Additional Family Medical History / Comment(s): "her heart races too fast" General Exam - General Exam Comments Initial Comments: 58 yo female. sleeping, no acute distress. General appearance: alert, in no apparent distress Head exam: Present: atraumatic, normocephalic, normal inspection Eye exam: Present: normal appearance, PERRL, EOMI. Absent: scleral icterus, conjunctival injection, periorbital swelling ENT exam: Present: normal exam, mucous membranes moist. Absent: normal oropharynx (poor dentitiion) Neck exam: Present: normal inspection. Absent: tenderness, meningismus, lymphadenopathy Respiratory exam: Present: normal lung sounds bilaterally. Absent: respiratory distress, wheezes, rales, rhonchi, stridor Cardiovascular Exam: Present: regular rate, normal rhythm, normal heart sounds. Absent: systolic murmur, diastolic murmur, rubs, gallop, clicks GI/Abdominal exam: Present: soft, normal bowel sounds. Absent: distended, tenderness, guarding, rebound, rigid Extremities exam: Present: normal inspection, full ROM, normal capillary refill , other (Enlarged bilaeral lower ecxtremity due to body habitus. No significant pittined edema or weeping note.d. ). Absent: tenderness, pedal edema, joint swelling, calf tenderness Back exam: Present: normal inspection Neurological exam: Present: alert, oriented X3, CN II-XII intact Psychiatric exam: Present: normal affect, normal mood Skin exam: Present: warm, dry, intact, normal color. Absent: rash Course Vital Signs 07/07/18 07/07/18 19:02 22:28 Temperature 98.3 F 97.4 F L Pulse Rate 107 H 100 Respiratory 21 20 Rate Blood Pressure 170/95 150/79 O2 Sat by Pulse 98 99 Oximetry Medical Decision Making - Medical Decision Making Patient is a 58-year-old female who presents emergency room today with complaints of fluctuations of her blood sugars in the past weekend. She reports that it was down to 40 and then it went to 400 today when she was shopping at [employer]. Patient states that she also complains a 17 pound weight gain within the past week. Patient states that she's noticed increased swelling in bilateral legs. Patient EKG has no acute changes. CXR shows no signs of fluid overload. Blood sugar as 120 in Ed. Patient BNP and other lab owork was unremarkalbe. Discussed that if patient had true weight gain of fluid , she can increase one water pill daily, and discussd PCP fjollow up. She has appt on saturday. - Lab Data Result diagrams: 07/07/18 20:37 07/07/18 20:37 Lab Results 07/07/18 07/07/18 07/07/18 Range/Units 20:37 20:37 20:37 WBC 7.3 (3.8-10.6) k/uL RBC 3.99 (3.80-5.40) m/uL Hgb 9.8 L (11.4-16.0) gm/dL Hct 31.0 L (34.0-46.0) % MCV 77.6 L (80.0-100.0) fL MCH 24.5 L (25.0-35.0) pg MCHC 31.6 (31.0-37.0) g/dL RDW 15.5 (11.5-15.5) % Plt Count 371 (150-450) k/uL Neutrophils % 70 % Lymphocytes % 18 % Monocytes % 6 % Eosinophils % 2 % Basophils % 0 % Neutrophils # 5.1 (1.3-7.7) k/uL Lymphocytes # 1.3 (1.0-4.8) k/uL Monocytes # 0.4 (0-1.0) k/uL Eosinophils # 0.1 (0-0.7) k/uL Basophils # 0.0 (0-0.2) k/uL Hypochromasia Moderate Microcytosis Slight PT (9.0-12.0) sec INR (<1.2) APTT (22.0-30.0) sec Sodium 142 (137-145) mmol/L Potassium 4.3 (3.5-5.1) mmol/L Chloride 108 H (98-107) mmol/L Carbon Dioxide 24 (22-30) mmol/L Anion Gap 10 mmol/L BUN 26 H (7-17) mg/dL Creatinine 0.76 (0.52-1.04) mg/dL Est GFR (CKD-EPI)AfAm >90 (>60 ml/min/1.73 sqM) Est GFR (CKD-EPI)NonAf 88 (>60 ml/min/1.73 sqM) Glucose 107 H (74-99) mg/dL Calcium 9.9 (8.4-10.2) mg/dL Magnesium 1.7 (1.6-2.3) mg/dL Total Bilirubin 0.3 (0.2-1.3) mg/dL AST 29 (14-36) U/L ALT 33 (9-52) U/L Alkaline Phosphatase 103 (38-126) U/L Total Creatine Kinase 50 (30-135) U/L CK-MB (CK-2) 0.9 (0.0-2.4) ng/mL CK-MB (CK-2) Rel Index 1.8 Troponin I <0.012 (0.000-0.034) ng/mL NT-Pro-B Natriuret Pep pg/mL Total Protein 6.8 (6.3-8.2) g/dL Albumin 4.0 (3.5-5.0) g/dL 07/07/18 07/07/18 Range/Units 20:37 20:37 WBC (3.8-10.6) k/uL RBC (3.80-5.40) m/uL Hgb (11.4-16.0) gm/dL Hct (34.0-46.0) % MCV (80.0-100.0) fL MCH (25.0-35.0) pg MCHC (31.0-37.0) g/dL RDW (11.5-15.5) % Plt Count (150-450) k/uL Neutrophils % % Lymphocytes % % Monocytes % % Eosinophils % % Basophils % % Neutrophils # (1.3-7.7) k/uL Lymphocytes # (1.0-4.8) k/uL Monocytes # (0-1.0) k/uL Eosinophils # (0-0.7) k/uL Basophils # (0-0.2) k/uL Hypochromasia Microcytosis PT 9.4 (9.0-12.0) sec INR 0.9 (<1.2) APTT 22.5 (22.0-30.0) sec Sodium (137-145) mmol/L Potassium (3.5-5.1) mmol/L Chloride (98-107) mmol/L Carbon Dioxide (22-30) mmol/L Anion Gap mmol/L BUN (7-17) mg/dL Creatinine (0.52-1.04) mg/dL Est GFR (CKD-EPI)AfAm (>60 ml/min/1.73 sqM) Est GFR (CKD-EPI)NonAf (>60 ml/min/1.73 sqM) Glucose (74-99) mg/dL Calcium (8.4-10.2) mg/dL Magnesium (1.6-2.3) mg/dL Total Bilirubin (0.2-1.3) mg/dL AST (14-36) U/L ALT (9-52) U/L Alkaline Phosphatase (38-126) U/L Total Creatine Kinase (30-135) U/L CK-MB (CK-2) (0.0-2.4) ng/mL CK-MB (CK-2) Rel Index Troponin I (0.000-0.034) ng/mL NT-Pro-B Natriuret Pep 208 pg/mL Total Protein (6.3-8.2) g/dL Albumin (3.5-5.0) g/dL 07/07/18 21:27 EKG shows sinus tachycardia otherwise normal EKG. Ventricular rate of 106 bpm. MI interval is 140 ms. QRS ration 82. QT QTc is 336/446 ms. - Radiology Data Radiology results: report reviewed Slight coarsening of the central lung markings. Otherwise negative exam. Normal heart no changes. Disposition Clinical Impression: Peripheral edema, Normal blood sugar Disposition: HOME SELF-CARE Condition: Good Instructions: Leg Edema (ED) Additional Instructions: Patient advised to increase her Lasix for 3 times a day. Patient should have follow-up with primary care physician. Return to the emergency department if any alarming signs or symptoms occur. Is patient prescribed a controlled substance at d/c from ED?: No Referrals: Dm Bhakta DO [Primary Care Provider] - 1-2 days Time of Disposition: 22:18
--- NOTE | 2018-07-07 21:09 | XR ---
EXAMINATION TYPE: XR chest 2V DATE OF EXAM: 07/07/2018 COMPARISON: 06/21/1718 HISTORY: Chest pain TECHNIQUE: Frontal and lateral views of the chest are obtained. FINDINGS: There is no heart failure nor confluent pneumonic infiltrate. There is mild coarsening of the perihilar markings. There is no pleural effusion. Heart size is normal. Bony thorax appears intac t. IMPRESSION: Slight coarsening of the central lung markings. Otherwise negative exam. Normal heart. N o change.
[2018-07-07 21:19] LABS: Basophils % (A) 0 %; Eosinophils # (A) 0.1 k/uL (0-0.7); Eosinophils % (A) 2 %; HGB 9.8 gm/dL (11.4-16.0); Hypochromasia Moderate; INR 0.9 (<1.2); Lymphocytes # (A) 1.3 k/uL (1.0-4.8); Lymphocytes % (A) 18 %; MCH 24.5 pg (25.0-35.0); MCHC 31.6 g/dL (31.0-37.0); MCV 77.6 fL (80.0-100.0); Mean Platelet Volume 7.1; Microcytosis Slight; Monocytes # (A) 0.4 k/uL (0-1.0); Monocytes % (A) 6 %; Neutrophils # (A) 5.1 k/uL (1.3-7.7); Neutrophils % (A) 70 %; Partial Thromboplastin Time 22.5 sec (22.0-30.0); Platelet Count 371 k/uL (150-450); Prothrombin Time 9.4 sec (9.0-12.0); RBC 3.99 m/uL (3.80-5.40); RDW 15.5 % (11.5-15.5); WBC 7.3 k/uL (3.8-10.6)
[2018-07-07 21:24] LABS: ALT 33 U/L (9-52); AST 29 U/L (14-36); Alkaline Phosphatase 103 U/L (38-126); Anion Gap 10 mmol/L; Blood Urea Nitrogen 26 mg/dL (7-17); Calcium 9.9 mg/dL (8.4-10.2); Carbon Dioxide 24 mmol/L (22-30); Chloride 108 mmol/L (98-107); Glucose 107 mg/dL (74-99); Magnesium 1.7 mg/dL (1.6-2.3); Potassium 4.3 mmol/L (3.5-5.1); Sodium 142 mmol/L (137-145); Total Bilirubin 0.3 mg/dL (0.2-1.3); Total Protein 6.8 g/dL (6.3-8.2)
[2018-07-07 21:31] LABS: Creatine Kinase 50 U/L (30-135)
[2018-07-07 21:40] LABS: Creatine Kinase MB 0.9 ng/mL (0.0-2.4)
[2018-07-07 21:44] LABS: Troponin I <0.012 ng/mL (0.000-0.034)
[2018-07-07 22:29] VITALS: BP 150/79; PULSE 100; RESP 20; TEMP 97.4
== END 2018-07-07 22:28 | disposition home or self-care (01) ==
LOC: EC 18:58
DX: R60.0 Localized edema (principal); R00.0 Tachycardia, unspecified; R63.5 Abnormal weight gain; J44.9 Chronic obstructive pulmonary disease, unspecified; I11.0 Hypertensive heart disease with heart failure; I50.9 Heart failure, unspecified; F31.9 Bipolar disorder, unspecified; G25.81 Restless legs syndrome; F41.9 Anxiety disorder, unspecified; E03.9 Hypothyroidism, unspecified; E78.5 Hyperlipidemia, unspecified; K21.9 Gastro-esophageal reflux disease without esophagitis; M19.90 Unspecified osteoarthritis, unspecified site; Z88.0 Allergy status to penicillin; Z88.2 Allergy status to sulfonamides; Z88.7 Allergy status to serum and vaccine; Z88.8 Allergy status to other drugs, medicaments and biological substances; Z91.048 Other nonmedicinal substance allergy status; Z87.01 Personal history of pneumonia (recurrent); Z82.49 Family history of ischemic heart disease and other diseases of the circulatory system; Z83.3 Family history of diabetes mellitus; Z95.818 Presence of other cardiac implants and grafts; Z96.651 Presence of right artificial knee joint
CPT/HCPCS: 36415; 71046; 80053; 82550; 82553; 83735; 83880; 84484; 85025; 85610; 85730; 93005; 99284

== ENCOUNTER 2018-07-21 15:07 | Emergency (ER) | payer MEDICARE, OTHER ==
[2018-07-21 17:09] LABS: Basophils % (A) 0 %; Eosinophils # (A) 0.1 k/uL (0-0.7); Eosinophils % (A) 2 %; HGB 9.7 gm/dL (11.4-16.0); Hypochromasia Moderate; Lymphocytes # (A) 1.3 k/uL (1.0-4.8); Lymphocytes % (A) 18 %; MCHC 32.3 g/dL (31.0-37.0); MCV 77.2 fL (80.0-100.0); Mean Platelet Volume 6.8; Microcytosis Slight; Monocytes # (A) 0.5 k/uL (0-1.0); Monocytes % (A) 6 %; Neutrophils # (A) 4.9 k/uL (1.3-7.7); Neutrophils % (A) 68 %; Platelet Count 375 k/uL (150-450); RBC 3.89 m/uL (3.80-5.40); RDW 15.8 % (11.5-15.5); WBC 7.1 k/uL (3.8-10.6)
[2018-07-21 17:17] LABS: ALT 27 U/L (9-52); AST 30 U/L (14-36); Alkaline Phosphatase 93 U/L (38-126); Anion Gap 12 mmol/L; Blood Urea Nitrogen 26 mg/dL (7-17); Carbon Dioxide 26 mmol/L (22-30); Chloride 101 mmol/L (98-107); Glucose 96 mg/dL (74-99); Magnesium 1.9 mg/dL (1.6-2.3); Potassium 4.1 mmol/L (3.5-5.1); Sodium 139 mmol/L (137-145); Total Bilirubin 0.3 mg/dL (0.2-1.3)
[2018-07-21 17:21] LABS: Creatine Kinase 39 U/L (30-135)
--- NOTE | 2018-07-21 17:32 | XR ---
EXAMINATION TYPE: XR chest 2V DATE OF EXAM: 07/21/2018 COMPARISON: 07/07/2018 HISTORY: Weight gain. Short of breath TECHNIQUE: Frontal and lateral views of the chest are obtained. FINDINGS: There is no heart failure nor confluent pneumonic infiltrate. Costophrenic angles are marylou r. There is some spurring in the thoracic spine. IMPRESSION: No active cardiopulmonary disease. No heart failure. No change compared to old exam.
[2018-07-21 17:33] LABS: Partial Thromboplastin Time 27.7 sec (22.0-30.0); Prothrombin Time 10.2 sec (9.0-12.0)
[2018-07-21 17:34] LABS: Creatine Kinase MB 0.7 ng/mL (0.0-2.4); Troponin I <0.012 ng/mL (0.000-0.034)
--- NOTE | 2018-07-21 17:46 | ED ---
General Adult HPI - General Chief complaint: Shortness of Breath Stated complaint: water retention Source: patient Mode of arrival: ambulatory Limitations: no limitations - History of Present Illness Initial comments: Dictation was produced using [employer] dictation software. please excuse any grammatical, word or spelling errors. Chief Complaint: 58-year-old female with past medical history of asthma, heart failure, COPD, diabetes and bone embolus presents with a 32 pound weight gain recently. History of Present Illness: Patient is a 58-year-old female with multiple comorbidities presents with 32 pound weight gain. Patient is a poor historian per she is unable to clarify detail over what time. This weight gain occurred. Patient is well-known to the emergency department for multiple visitations. This is approximately patient's th visit to the emergency department since beginning of the year. Saturday she reports that she was told to increase her Lasix. Her Lasix is 40 mg in the morning and 80 mg at night. Patient denies any excessive salt in her diet. She did have a cardiac catheterization performed in June of this year with normal coronary angiograms. On the same day she had a cardiac cath she did have a transesophageal echocardiogram showing normal ejection fraction and relatively benign findings. The ROS documented in this emergency department record has been reviewed and confirmed by me. Those systems with pertinent positive or negative responses have been documented in the HPI. All other systems are other negative and/or noncontributory. - Related Data Home Medications Medication Instructions Recorded Confirmed Mirabegron [Myrbetriq] 50 mg PO DAILY 05/23/17 07/21/18 Atorvastatin [Lipitor] 10 mg PO HS 06/07/17 07/21/18 Carvedilol [Coreg] 25 mg PO BID 06/07/17 07/21/18 Cholecalciferol [Vitamin D3] 1,000 unit PO DAILY 06/07/17 07/21/18 Loratadine [Claritin] 10 mg PO DAILY 06/07/17 07/21/18 Multivitamins, Thera [Multivitamin 1 tab PO DAILY 06/07/17 07/21/18 (formulary)] Omeprazole 20 mg PO DAILY 06/07/17 07/21/18 Levothyroxine Sodium [Synthroid] 137 mcg PO DAILY 10/20/17 07/21/18 hydrALAZINE HCL [Apresoline] 50 mg PO TID 10/20/17 07/21/18 Potassium Chloride ER [K-Dur 10] 20 meq PO DAILY 03/19/18 07/21/18 DULoxetine HCL [Cymbalta] 60 mg PO DAILY 03/31/18 07/21/18 rOPINIRole HCL 4 mg PO BID 03/31/18 07/21/18 Gabapentin [Neurontin] 100 mg PO BID 06/06/18 07/21/18 Metolazone [Zaroxolyn] 2.5 mg PO DAILY 06/06/18 07/21/18 Albuterol Inhaler [Ventolin Hfa 2 puff INHALATION RT-QID PRN 06/10/18 07/21/18 Inhaler] Montelukast [Singulair] 10 mg PO HS 06/28/18 07/21/18 tiZANidine HCL [Zanaflex] 4 mg PO DAILY 07/07/18 07/21/18 Furosemide [Lasix] 40 mg PO DAILY 07/21/18 07/21/18 Furosemide [Lasix] 80 mg PO HS 07/21/18 07/21/18 Mirtazapine [Remeron] 15 mg PO HS 07/21/18 07/21/18 risperiDONE MICROSPHERES 25 mg IM Q14D 07/21/18 07/21/18 [RisperDAL CONSTA] Previous Rx's Medication Instructions Recorded Rivaroxaban [Xarelto] 20 mg PO DAILY 90 Days #90 tab 11/18/17 Allergies Allergy/AdvReac Type Severity Reaction Status Date / Time buspirone [From BuSpar] Allergy Unknown Verified 07/21/18 16:44 haloperidol [From Haldol] Allergy Swelling Verified 07/21/18 16:44 iodine Allergy Swelling Verified 07/21/18 16:44 Penicillins Allergy Swelling Verified 07/21/18 16:44 prochlorperazine Allergy Rash/Hives Verified 07/21/18 16:44 Sulfa (Sulfonamide Allergy Rash/Hives Verified 07/21/18 16:44 Antibiotics) Tetanus Vaccines and Toxoid Allergy Rash/Hives Verified 07/21/18 16:44 [Tetanus Vaccines & Toxoid] trifluoperazine HCl Allergy Unknown Verified 07/21/18 16:44 [From Stelazine] hydroxyzine [From Vistaril] AdvReac Rash/Hives Verified 07/21/18 16:44 Review of Systems ROS Statement: Those systems with pertinent positive or pertinent negative responses have been documented in the HPI. ROS Other: All systems not noted in ROS Statement are negative. Past Medical History Past Medical History: Asthma, Heart Failure, COPD, Diabetes Mellitus, GERD/ Reflux, Hyperlipidemia, Hypertension, Musculoskeletal Disorder, Osteoarthritis ( OA), Pneumonia, Pulmonary Embolus (PE), Thyroid Disorder Additional Past Medical History / Comment(s): Pt recently admitted to [facility] on with exacerbation COPD, asthma and possible pneumonia. Other hx: NIDDM type II but pt states no longer has to monitor blood sugars at home, chronic low back pain, herniated discs, RLS, leg edema, recent L leg cellulitis, anemia , gout bilateral feet, hypothyroid, UTIs History of Any Multi-Drug Resistant Organisms: None Reported Past Surgical History: Bariatric Surgery, Heart Catheterization, Hernia Repair, Orthopedic Surgery Additional Past Surgical History / Comment(s): Total Right knee replacement, 3 abdominal hernia repairs, left hip repair d/t fracture, gastric bypass/revision , colonoscopy. Past Anesthesia/Blood Transfusion Reactions: No Reported Reaction Past Psychological History: Anxiety, Bipolar, Depression, Panic Disorder, PTSD Smoking Status: Never smoker Past Alcohol Use History: None Reported Past Drug Use History: None Reported - Past Family History Mother Family Medical History: Cancer Additional Family Medical History / Comment(s): lung cancer Father Family Medical History: Diabetes Mellitus Additional Family Medical History / Comment(s): "my dad from a blood clot that traveled from his leg to his lung and also caused a heart attack." Brother(s) Family Medical History: Diabetes Mellitus Sister(s) Additional Family Medical History / Comment(s): "her heart races too fast" General Exam - General Exam Comments Initial Comments: PHYSICAL EXAM: General Impression: Alert and oriented x3, not in acute distress HEENT: Normocephalic atraumatic, extra-ocular movements intact, pupils equal and reactive to light bilaterally, mucous membranes moist. Cardiovascular: Heart regular rate and rhythm, S1&S2 audible, no murmurs, rubs or gallops Chest: Lungs clear to auscultation bilaterally, no rhonchi, no wheeze, no rales Abdomen: Bowel sounds present, abdomen soft, non-tender, non-distended, no organomegaly Musculoskeletal: Pulses present and equal in all extremities, no peripheral edema Motor: Power 5/5 bilaterally, no focal deficits noted Neurological: CN II-XII grossly intact, no focal motor or sensory deficits noted Skin: Intact with no visualized rashes Psych: Normal affect and mood Limitations: no limitations Course Vital Signs 07/21/18 07/21/18 15:09 16:18 Temperature 98.3 F Pulse Rate 108 H Respiratory 20 20 Rate Blood Pressure 162/74 O2 Sat by Pulse 98 Oximetry Medical Decision Making - Medical Decision Making ED course: 58-year-old female with multiple comorbidities presents with 32 pound weight gain. Patient's poor historian. She is well-known to the emergency department. Patient is a frequent visitor. Patient has psychiatric history. She does live in a half-way. Vital signs upon arrival shows heart rate of 108, rest of vital signs within acceptable limits. Lungs are clear to auscultation bilaterally. Patient denies any shortness of breath. EKGs benign. Chest x-ray does not show any acute processes. Patient was seen here in emergency department 2 weeks ago for similar complaint.Laboratory evaluation obtained. CBC unremarkable, coag panel unremarkable. Metabolic panel is unremarkable. Urinalysis is negative. X-ray shows no acute processes. Patient ambulatory without any dyspnea. At this point there is no clear reason for us to keep the patient in the hospital. Furthermore, there is no indication for any medical intervention. 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 Patient understandable and agreeable to that plan. Told to come to the emergency Department with any symptoms of chest pain, worsening shortness of breath. Patient is otherwise instructed to take her Lasix dose as instructed. No signs of acute onset heart failure or any other emergent cardiopulmonary process. EKG Interpretation: A 12 lead EKG was obtained. It was interpreted by myself and attending physician. There is a P wave before every QRS complex. Rate is 85. Rhythm is normal sinus rhythm, W[place] interval 140, care is 82, QTc 437. QT is not prolonged. No ST segment depression or elevation. This EKG was compared to a previous EKG that was obtained on 07/07/2018 and showed no significant change. Overall, this EKG is unremarkable - Lab Data Result diagrams: 07/21/18 16:50 07/21/18 16:50 Lab Results 07/21/18 07/21/18 07/21/18 Range/Units 16:50 16:50 16:50 WBC 7.1 (3.8-10.6) k/uL RBC 3.89 (3.80-5.40) m/uL Hgb 9.7 L (11.4-16.0) gm/dL Hct 30.0 L (34.0-46.0) % MCV 77.2 L (80.0-100.0) fL MCH 25.0 (25.0-35.0) pg MCHC 32.3 (31.0-37.0) g/dL RDW 15.8 H (11.5-15.5) % Plt Count 375 (150-450) k/uL Neutrophils % 68 % Lymphocytes % 18 % Monocytes % 6 % Eosinophils % 2 % Basophils % 0 % Neutrophils # 4.9 (1.3-7.7) k/uL Lymphocytes # 1.3 (1.0-4.8) k/uL Monocytes # 0.5 (0-1.0) k/uL Eosinophils # 0.1 (0-0.7) k/uL Basophils # 0.0 (0-0.2) k/uL Hypochromasia Moderate Microcytosis Slight PT (9.0-12.0) sec INR (<1.2) APTT (22.0-30.0) sec Sodium 139 (137-145) mmol/L Potassium 4.1 (3.5-5.1) mmol/L Chloride 101 (98-107) mmol/L Carbon Dioxide 26 (22-30) mmol/L Anion Gap 12 mmol/L BUN 26 H (7-17) mg/dL Creatinine 0.69 (0.52-1.04) mg/dL Est GFR (CKD-EPI)AfAm >90 (>60 ml/min/1.73 sqM) Est GFR (CKD-EPI)NonAf >90 (>60 ml/min/1.73 sqM) Glucose 96 (74-99) mg/dL Calcium 10.0 (8.4-10.2) mg/dL Magnesium 1.9 (1.6-2.3) mg/dL Total Bilirubin 0.3 (0.2-1.3) mg/dL AST 30 (14-36) U/L ALT 27 (9-52) U/L Alkaline Phosphatase 93 (38-126) U/L Total Creatine Kinase 39 (30-135) U/L CK-MB (CK-2) 0.7 (0.0-2.4) ng/mL CK-MB (CK-2) Rel Index 1.8 Troponin I <0.012 (0.000-0.034) ng/mL Total Protein 7.0 (6.3-8.2) g/dL Albumin 4.0 (3.5-5.0) g/dL Urine Color Urine Appearance (Clear) Urine pH (5.0-8.0) Ur Specific [place] (1.001-1.035) Urine Protein (Negative) Urine Glucose (UA) (Negative) Urine Ketones (Negative) Urine Blood (Negative) Urine Nitrite (Negative) Urine Bilirubin (Negative) Urine Urobilinogen (<2.0) mg/dL Ur Leukocyte Esterase (Negative) Urine RBC (0-5) /hpf Urine WBC (0-5) /hpf Ur Squamous Epith Cells (0-4) /hpf 07/21/18 07/21/18 Range/Units 16:50 19:01 WBC (3.8-10.6) k/uL RBC (3.80-5.40) m/uL Hgb (11.4-16.0) gm/dL Hct (34.0-46.0) % MCV (80.0-100.0) fL MCH (25.0-35.0) pg MCHC (31.0-37.0) g/dL RDW (11.5-15.5) % Plt Count (150-450) k/uL Neutrophils % % Lymphocytes % % Monocytes % % Eosinophils % % Basophils % % Neutrophils # (1.3-7.7) k/uL Lymphocytes # (1.0-4.8) k/uL Monocytes # (0-1.0) k/uL Eosinophils # (0-0.7) k/uL Basophils # (0-0.2) k/uL Hypochromasia Microcytosis PT 10.2 (9.0-12.0) sec INR 1.0 (<1.2) APTT 27.7 (22.0-30.0) sec Sodium (137-145) mmol/L Potassium (3.5-5.1) mmol/L Chloride (98-107) mmol/L Carbon Dioxide (22-30) mmol/L Anion Gap mmol/L BUN (7-17) mg/dL Creatinine (0.52-1.04) mg/dL Est GFR (CKD-EPI)AfAm (>60 ml/min/1.73 sqM) Est GFR (CKD-EPI)NonAf (>60 ml/min/1.73 sqM) Glucose (74-99) mg/dL Calcium (8.4-10.2) mg/dL Magnesium (1.6-2.3) mg/dL Total Bilirubin (0.2-1.3) mg/dL AST (14-36) U/L ALT (9-52) U/L Alkaline Phosphatase (38-126) U/L Total Creatine Kinase (30-135) U/L CK-MB (CK-2) (0.0-2.4) ng/mL CK-MB (CK-2) Rel Index Troponin I (0.000-0.034) ng/mL Total Protein (6.3-8.2) g/dL Albumin (3.5-5.0) g/dL Urine Color Light Yellow Urine Appearance Clear (Clear) Urine pH 5.0 (5.0-8.0) Ur Specific [place] 1.009 (1.001-1.035) Urine Protein Negative (Negative) Urine Glucose (UA) Negative (Negative) Urine Ketones Negative (Negative) Urine Blood Negative (Negative) Urine Nitrite Negative (Negative) Urine Bilirubin Negative (Negative) Urine Urobilinogen <2.0 (<2.0) mg/dL Ur Leukocyte Esterase Trace H (Negative) Urine RBC <1 (0-5) /hpf Urine WBC 1 (0-5) /hpf Ur Squamous Epith Cells 1 (0-4) /hpf Disposition Clinical Impression: Weight gain Disposition: HOME SELF-CARE Instructions: Furosemide (By mouth) Is patient prescribed a controlled substance at d/c from ED?: No Referrals: [facility] [Primary Care Provider] - 1-2 days Time of Disposition: 19:22
[2018-07-21] MEDS ORDERED: HYDROcodone/APAP 5-325MG 1 EACH TAB PO STA (17:47)
[2018-07-21 19:16] LABS: Appearance,Urine Clear (Clear); Bilirubin,Urine Negative (Negative); Blood,Urine Negative (Negative); Color,Urine Light Yellow; Glucose,Urine (UA) Negative (Negative); Ketones,Urine Negative (Negative); Leukocyte Esterase,Urine Trace (Negative); Nitrite,Urine Negative (Negative); Protein,Urine Negative (Negative); RBC,Urine <1 /hpf (0-5); Specific Gravity,Urine 1.009 (1.001-1.035); Squamous Epithelial Cell,Urine 1 /hpf (0-4); Urobilinogen,Urine <2.0 mg/dL (<2.0); WBC,Urine 1 /hpf (0-5)
[2018-07-21 19:38] VITALS: BP 149/74; PULSE 72; RESP 19; TEMP 98.4
== END 2018-07-21 19:28 | disposition home or self-care (01) ==
LOC: EC 15:07
DX: R63.5 Abnormal weight gain (principal); R60.9 Edema, unspecified; J44.9 Chronic obstructive pulmonary disease, unspecified; I11.0 Hypertensive heart disease with heart failure; I50.9 Heart failure, unspecified; K21.9 Gastro-esophageal reflux disease without esophagitis; E78.5 Hyperlipidemia, unspecified; M19.90 Unspecified osteoarthritis, unspecified site; G25.81 Restless legs syndrome; E03.9 Hypothyroidism, unspecified; F41.9 Anxiety disorder, unspecified; F31.9 Bipolar disorder, unspecified; F43.10 Post-traumatic stress disorder, unspecified; Z96.651 Presence of right artificial knee joint; Z98.84 Bariatric surgery status; Z98.890 Other specified postprocedural states; Z79.899 Other long term (current) drug therapy; Z88.0 Allergy status to penicillin; Z88.2 Allergy status to sulfonamides; Z88.7 Allergy status to serum and vaccine; Z88.8 Allergy status to other drugs, medicaments and biological substances; Z91.048 Other nonmedicinal substance allergy status
CPT/HCPCS: 36415; 71046; 80053; 81001; 82550; 82553; 83735; 84484; 85025; 85610; 85730; 93005; 99285

== ENCOUNTER 2018-07-23 21:59 | Emergency (ER) | payer MEDICARE, OTHER ==
[2018-07-23 22:06] VITALS: TEMP 98.2
--- NOTE | 2018-07-23 22:29 | ED ---
General Adult HPI - General Chief complaint: Shortness of Breath Stated complaint: SJ Time Seen by Provider: 07/23/18 22:19 Source: patient, EMS, RN notes reviewed, old records reviewed Mode of arrival: EMS - History of Present Illness Initial comments: 58-year-old female presents for evaluation of dyspnea and lower extremity swelling. Patient has history of COPD, morbid obesity, and congestive heart failure. She has been taking her Lasix as prescribed with minimal improvement. Denies fever or chills. Denies significant chest pain. Denies cough. Patient denies abdominal pain, nausea vomiting or diarrhea. - Related Data Home Medications Medication Instructions Recorded Confirmed Mirabegron [Myrbetriq] 50 mg PO DAILY 05/23/17 07/23/18 Atorvastatin [Lipitor] 10 mg PO HS 06/07/17 07/23/18 Carvedilol [Coreg] 25 mg PO BID 06/07/17 07/23/18 Loratadine [Claritin] 10 mg PO DAILY 06/07/17 07/23/18 Multivitamins, Thera [Multivitamin 1 tab PO DAILY 06/07/17 07/23/18 (formulary)] Omeprazole 20 mg PO DAILY 06/07/17 07/23/18 Levothyroxine Sodium [Synthroid] 137 mcg PO DAILY 10/20/17 07/23/18 hydrALAZINE HCL [Apresoline] 50 mg PO TID 10/20/17 07/23/18 Potassium Chloride ER [K-Dur 10] 20 meq PO DAILY 03/19/18 07/23/18 DULoxetine HCL [Cymbalta] 60 mg PO DAILY 03/31/18 07/23/18 rOPINIRole HCL 4 mg PO BID 03/31/18 07/23/18 Gabapentin [Neurontin] 100 mg PO BID 06/06/18 07/23/18 Metolazone [Zaroxolyn] 2.5 mg PO DAILY 06/06/18 07/23/18 Albuterol Inhaler [Ventolin Hfa 2 puff INHALATION RT-QID PRN 06/10/18 07/23/18 Inhaler] Montelukast [Singulair] 10 mg PO HS 06/28/18 07/23/18 tiZANidine HCL [Zanaflex] 4 mg PO BID 07/07/18 07/23/18 Furosemide [Lasix] 40 mg PO DAILY 07/21/18 07/23/18 Furosemide [Lasix] 80 mg PO HS 07/21/18 07/23/18 Mirtazapine [Remeron] 15 mg PO HS 07/21/18 07/23/18 risperiDONE MICROSPHERES 25 mg IM Q14D 07/21/18 07/23/18 [RisperDAL CONSTA] Cholecalciferol (Vitamin D3) 10,000 unit PO DAILY 07/23/18 07/23/18 [Vitamin D3] Previous Rx's Medication Instructions Recorded Rivaroxaban [Xarelto] 20 mg PO DAILY 90 Days #90 tab 11/18/17 Allergies Allergy/AdvReac Type Severity Reaction Status Date / Time buspirone [From BuSpar] Allergy Unknown Verified 07/23/18 22:05 haloperidol [From Haldol] Allergy Swelling Verified 07/23/18 22:05 iodine Allergy Swelling Verified 07/23/18 22:05 Penicillins Allergy Swelling Verified 07/23/18 22:05 prochlorperazine Allergy Rash/Hives Verified 07/23/18 22:05 Sulfa (Sulfonamide Allergy Rash/Hives Verified 07/23/18 22:05 Antibiotics) Tetanus Vaccines and Toxoid Allergy Rash/Hives Verified 07/23/18 22:05 [Tetanus Vaccines & Toxoid] trifluoperazine HCl Allergy Unknown Verified 07/21/18 16:44 [From Stelazine] hydroxyzine [From Vistaril] AdvReac Rash/Hives Verified 07/23/18 22:05 Review of Systems ROS Statement: Those systems with pertinent positive or pertinent negative responses have been documented in the HPI. ROS Other: All systems not noted in ROS Statement are negative. Past Medical History Past Medical History: Asthma, Heart Failure, COPD, Diabetes Mellitus, GERD/ Reflux, Hyperlipidemia, Hypertension, Musculoskeletal Disorder, Osteoarthritis ( OA), Pneumonia, Pulmonary Embolus (PE), Thyroid Disorder Additional Past Medical History / Comment(s): Pt recently admitted to [facility] on with exacerbation COPD, asthma and possible pneumonia. Other hx: NIDDM type II but pt states no longer has to monitor blood sugars at home, chronic low back pain, herniated discs, RLS, leg edema, recent L leg cellulitis, anemia , gout bilateral feet, hypothyroid, UTIs History of Any Multi-Drug Resistant Organisms: None Reported Past Surgical History: Bariatric Surgery, Heart Catheterization, Hernia Repair, Orthopedic Surgery Additional Past Surgical History / Comment(s): Total Right knee replacement, 3 abdominal hernia repairs, left hip repair d/t fracture, gastric bypass/revision , colonoscopy. Past Anesthesia/Blood Transfusion Reactions: No Reported Reaction Past Psychological History: Anxiety, Bipolar, Depression, Panic Disorder, PTSD Smoking Status: Never smoker Past Alcohol Use History: None Reported Past Drug Use History: None Reported - Past Family History Mother Family Medical History: Cancer Additional Family Medical History / Comment(s): lung cancer Father Family Medical History: Diabetes Mellitus Additional Family Medical History / Comment(s): "my dad from a blood clot that traveled from his leg to his lung and also caused a heart attack." Brother(s) Family Medical History: Diabetes Mellitus Sister(s) Additional Family Medical History / Comment(s): "her heart races too fast" General Exam General appearance: alert, in no apparent distress, obese Head exam: Present: atraumatic, normocephalic Eye exam: Present: normal appearance ENT exam: Present: normal exam Neck exam: Present: normal inspection. Absent: tenderness, meningismus Respiratory exam: Present: decreased breath sounds, prolonged expiratory. Absent: respiratory distress, wheezes Cardiovascular Exam: Present: normal rhythm, tachycardia GI/Abdominal exam: Present: soft. Absent: distended, tenderness, guarding Extremities exam: Present: normal capillary refill, pedal edema Neurological exam: Present: alert, oriented X3 Psychiatric exam: Present: normal affect, normal mood Skin exam: Present: warm, dry, intact Course Vital Signs 07/23/18 07/23/18 22:02 22:10 Temperature 98.2 F Pulse Rate 112 H 103 H Respiratory 21 19 Rate Blood Pressure 150/78 152/86 O2 Sat by Pulse 99 98 Oximetry Medical Decision Making - Medical Decision Making 58-year-old female presenting with dyspnea and lower extremity swelling. Chest x-ray obtained, negative for pulmonary edema, no focal pneumonia. Patient has a normal white blood cell count, hemoglobin is 9.0, patient is on blood thinners and reports she's had several nosebleeds. No bleeding today. No rectal bleeding. Normal CMP, negative troponin and BNP. Patient is reevaluated , vital signs stable. Patient is eager for discharge. She will present for reevaluation if symptoms change or worsen. - Lab Data Result diagrams: 07/23/18 22:51 07/23/18 22:51 Lab Results 07/23/18 07/23/18 07/23/18 Range/Units 22:51 22:51 22:51 WBC 8.4 (3.8-10.6) k/uL RBC 3.62 L (3.80-5.40) m/uL Hgb 9.0 L (11.4-16.0) gm/dL Hct 27.9 L (34.0-46.0) % MCV 77.1 L (80.0-100.0) fL MCH 24.8 L (25.0-35.0) pg MCHC 32.2 (31.0-37.0) g/dL RDW 15.9 H (11.5-15.5) % Plt Count 346 (150-450) k/uL Neutrophils % 74 % Lymphocytes % 13 % Monocytes % 7 % Eosinophils % 1 % Basophils % 0 % Neutrophils # 6.3 (1.3-7.7) k/uL Lymphocytes # 1.1 (1.0-4.8) k/uL Monocytes # 0.6 (0-1.0) k/uL Eosinophils # 0.1 (0-0.7) k/uL Basophils # 0.0 (0-0.2) k/uL Hypochromasia Moderate Microcytosis Slight PT (9.0-12.0) sec INR (<1.2) APTT (22.0-30.0) sec Sodium 138 (137-145) mmol/L Potassium 3.4 L (3.5-5.1) mmol/L Chloride 103 (98-107) mmol/L Carbon Dioxide 27 (22-30) mmol/L Anion Gap 8 mmol/L BUN 31 H (7-17) mg/dL Creatinine 0.70 (0.52-1.04) mg/dL Est GFR (CKD-EPI)AfAm >90 (>60 ml/min/1.73 sqM) Est GFR (CKD-EPI)NonAf >90 (>60 ml/min/1.73 sqM) Glucose 124 H (74-99) mg/dL Calcium 9.1 (8.4-10.2) mg/dL Magnesium 1.8 (1.6-2.3) mg/dL Total Bilirubin 0.2 (0.2-1.3) mg/dL AST 28 (14-36) U/L ALT 33 (9-52) U/L Alkaline Phosphatase 90 (38-126) U/L Total Creatine Kinase 53 (30-135) U/L CK-MB (CK-2) 0.9 (0.0-2.4) ng/mL CK-MB (CK-2) Rel Index 1.7 Troponin I <0.012 (0.000-0.034) ng/mL NT-Pro-B Natriuret Pep pg/mL Total Protein 6.5 (6.3-8.2) g/dL Albumin 3.7 (3.5-5.0) g/dL 07/23/18 07/23/18 Range/Units 22:51 22:51 WBC (3.8-10.6) k/uL RBC (3.80-5.40) m/uL Hgb (11.4-16.0) gm/dL Hct (34.0-46.0) % MCV (80.0-100.0) fL MCH (25.0-35.0) pg MCHC (31.0-37.0) g/dL RDW (11.5-15.5) % Plt Count (150-450) k/uL Neutrophils % % Lymphocytes % % Monocytes % % Eosinophils % % Basophils % % Neutrophils # (1.3-7.7) k/uL Lymphocytes # (1.0-4.8) k/uL Monocytes # (0-1.0) k/uL Eosinophils # (0-0.7) k/uL Basophils # (0-0.2) k/uL Hypochromasia Microcytosis PT 10.3 (9.0-12.0) sec INR 1.1 (<1.2) APTT 27.3 (22.0-30.0) sec Sodium (137-145) mmol/L Potassium (3.5-5.1) mmol/L Chloride (98-107) mmol/L Carbon Dioxide (22-30) mmol/L Anion Gap mmol/L BUN (7-17) mg/dL Creatinine (0.52-1.04) mg/dL Est GFR (CKD-EPI)AfAm (>60 ml/min/1.73 sqM) Est GFR (CKD-EPI)NonAf (>60 ml/min/1.73 sqM) Glucose (74-99) mg/dL Calcium (8.4-10.2) mg/dL Magnesium (1.6-2.3) mg/dL Total Bilirubin (0.2-1.3) mg/dL AST (14-36) U/L ALT (9-52) U/L Alkaline Phosphatase (38-126) U/L Total Creatine Kinase (30-135) U/L CK-MB (CK-2) (0.0-2.4) ng/mL CK-MB (CK-2) Rel Index Troponin I (0.000-0.034) ng/mL NT-Pro-B Natriuret Pep 80 pg/mL Total Protein (6.3-8.2) g/dL Albumin (3.5-5.0) g/dL Disposition Clinical Impression: SOB (shortness of breath), Anemia Disposition: HOME SELF-CARE Condition: Fair Instructions: Dyspnea (ED), Anemia (ED) Is patient prescribed a controlled substance at d/c from ED?: No Referrals: [facility] [Primary Care Provider] - 1-2 days Time of Disposition: 00:12
[2018-07-23 23:07] LABS: Basophils % (A) 0 %; Eosinophils # (A) 0.1 k/uL (0-0.7); Eosinophils % (A) 1 %; HCT 27.9 % (34.0-46.0); Hypochromasia Moderate; Lymphocytes # (A) 1.1 k/uL (1.0-4.8); Lymphocytes % (A) 13 %; MCH 24.8 pg (25.0-35.0); MCHC 32.2 g/dL (31.0-37.0); MCV 77.1 fL (80.0-100.0); Mean Platelet Volume 6.9; Microcytosis Slight; Monocytes # (A) 0.6 k/uL (0-1.0); Monocytes % (A) 7 %; Neutrophils # (A) 6.3 k/uL (1.3-7.7); Neutrophils % (A) 74 %; Platelet Count 346 k/uL (150-450); RBC 3.62 m/uL (3.80-5.40); RDW 15.9 % (11.5-15.5); WBC 8.4 k/uL (3.8-10.6)
[2018-07-23 23:14] LABS: INR 1.1 (<1.2); Partial Thromboplastin Time 27.3 sec (22.0-30.0); Prothrombin Time 10.3 sec (9.0-12.0)
[2018-07-23 23:18] LABS: ALT 33 U/L (9-52); AST 28 U/L (14-36); Albumin 3.7 g/dL (3.5-5.0); Alkaline Phosphatase 90 U/L (38-126); Anion Gap 8 mmol/L; Blood Urea Nitrogen 31 mg/dL (7-17); Calcium 9.1 mg/dL (8.4-10.2); Carbon Dioxide 27 mmol/L (22-30); Chloride 103 mmol/L (98-107); Glucose 124 mg/dL (74-99); Magnesium 1.8 mg/dL (1.6-2.3); Potassium 3.4 mmol/L (3.5-5.1); Sodium 138 mmol/L (137-145); Total Bilirubin 0.2 mg/dL (0.2-1.3); Total Protein 6.5 g/dL (6.3-8.2)
[2018-07-23 23:22] LABS: Creatine Kinase 53 U/L (30-135)
[2018-07-23 23:35] LABS: Creatine Kinase MB 0.9 ng/mL (0.0-2.4); Troponin I <0.012 ng/mL (0.000-0.034)
--- NOTE | 2018-07-23 23:48 | XR ---
EXAMINATION TYPE: XR chest 2V DATE OF EXAM: 07/23/2018 COMPARISON: 07/21/2018 HISTORY: Difficulty breathing TECHNIQUE: Frontal and lateral views of the chest are obtained. FINDINGS: Exam is limited by patient size. I see no heart failure nor confluent pneumonic infiltrate . There are chest leads. There is probably hiatal hernia. There are chest leads. IMPRESSION: Limited exam. No definite active cardiopulmonary disease. I see no definite change [place] red to last exam.
[2018-07-24 00:14] VITALS: BP 145/71; PULSE 76; RESP 16
== END 2018-07-24 00:42 | disposition home or self-care (01) ==
LOC: EC 21:59
DX: R06.02 Shortness of breath (principal); D64.9 Anemia, unspecified; J44.9 Chronic obstructive pulmonary disease, unspecified; E11.9 Type 2 diabetes mellitus without complications; I11.0 Hypertensive heart disease with heart failure; I50.9 Heart failure, unspecified; K21.9 Gastro-esophageal reflux disease without esophagitis; M19.90 Unspecified osteoarthritis, unspecified site; E03.9 Hypothyroidism, unspecified; G25.81 Restless legs syndrome; E66.01 Morbid (severe) obesity due to excess calories; Z68.45 Body mass index [BMI] 70 or greater, adult; Z86.711 Personal history of pulmonary embolism; E78.5 Hyperlipidemia, unspecified; F31.9 Bipolar disorder, unspecified; F41.0 Panic disorder [episodic paroxysmal anxiety]; F43.10 Post-traumatic stress disorder, unspecified; Z79.899 Other long term (current) drug therapy; Z88.0 Allergy status to penicillin; Z88.2 Allergy status to sulfonamides; Z88.7 Allergy status to serum and vaccine; Z88.8 Allergy status to other drugs, medicaments and biological substances; Z95.818 Presence of other cardiac implants and grafts; Z96.651 Presence of right artificial knee joint
CPT/HCPCS: 36415; 71046; 80053; 82550; 82553; 83735; 83880; 84484; 85025; 85610; 85730; 99285

== ENCOUNTER 2018-07-25 20:57 | Emergency (ER) | payer MEDICARE, OTHER ==
[2018-07-25 21:25] VITALS: RESP 20
[2018-07-25] MEDS ORDERED: diphenhydrAMINE 25 MG CAP PO STA (21:26)
--- NOTE | 2018-07-25 21:29 | ED ---
Psych HPI - General Chief Complaint: Psychiatric Symptoms Stated Complaint: Mental health Time Seen by Provider: 07/25/18 21:19 Source: patient, EMS Mode of arrival: EMS - History of Present Illness Initial Comments: This is a 58-year-old female with a history of multiple medical comorbidities including CHF who presents emergency department for depression and suicidal thoughts. The patient states that she has been tired of dealing with all of her problems. She states that she's been in and out of the hospital multiple times. She is tired of having difficulty with breathing and swelling in her lower extremities. She states that all of these problems came to a head today and she called the crisis center because she was having thoughts of wanting to take a bunch of her medications in order to end her life. She states that she' s been having intermittent episodes of depression and suicidal thoughts over the last few years. She has attempted this in the past and has been admitted to an inpatient psychiatric facility in the past. She states that she does not currently have any suicidal thoughts and that they thoughts seem to come and go. She states that she did not call an ambulance however the crisis center did which is why she is in the emergency department right now. She states otherwise her other medical conditions have been stable. She denies any shortness of breath or increased lower extremity swelling. She states that she does have a new rash on her left lower extremity that itches. Otherwise she has no other new complaints. States that she did not take any medications tonight. - Related Data Home Medications Medication Instructions Recorded Confirmed Mirabegron [Myrbetriq] 50 mg PO DAILY 05/23/17 07/25/18 Atorvastatin [Lipitor] 10 mg PO HS 06/07/17 07/25/18 Carvedilol [Coreg] 25 mg PO BID 06/07/17 07/25/18 Loratadine [Claritin] 10 mg PO DAILY 06/07/17 07/25/18 Multivitamins, Thera [Multivitamin 1 tab PO DAILY 06/07/17 07/25/18 (formulary)] Omeprazole 20 mg PO DAILY 06/07/17 07/25/18 Levothyroxine Sodium [Synthroid] 137 mcg PO DAILY 10/20/17 07/25/18 hydrALAZINE HCL [Apresoline] 50 mg PO TID 10/20/17 07/25/18 Potassium Chloride ER [K-Dur 10] 20 meq PO DAILY 03/19/18 07/25/18 DULoxetine HCL [Cymbalta] 60 mg PO DAILY 03/31/18 07/25/18 rOPINIRole HCL 4 mg PO BID 03/31/18 07/25/18 Gabapentin [Neurontin] 100 mg PO BID 06/06/18 07/25/18 Metolazone [Zaroxolyn] 2.5 mg PO DAILY 06/06/18 07/25/18 Albuterol Inhaler [Ventolin Hfa 2 puff INHALATION RT-QID PRN 06/10/18 07/25/18 Inhaler] Montelukast [Singulair] 10 mg PO HS 06/28/18 07/25/18 tiZANidine HCL [Zanaflex] 4 mg PO BID 07/07/18 07/25/18 Furosemide [Lasix] 40 mg PO DAILY 07/21/18 07/25/18 Furosemide [Lasix] 80 mg PO HS 07/21/18 07/25/18 Mirtazapine [Remeron] 15 mg PO HS 07/21/18 07/25/18 risperiDONE MICROSPHERES 25 mg IM Q14D 07/21/18 07/25/18 [RisperDAL CONSTA] Cholecalciferol (Vitamin D3) 10,000 unit PO DAILY 07/23/18 07/25/18 [Vitamin D3] Previous Rx's Medication Instructions Recorded Rivaroxaban [Xarelto] 20 mg PO DAILY 90 Days #90 tab 11/18/17 Allergies Allergy/AdvReac Type Severity Reaction Status Date / Time buspirone [From BuSpar] Allergy Unknown Verified 07/25/18 21:02 haloperidol [From Haldol] Allergy Swelling Verified 07/25/18 21:02 iodine Allergy Swelling Verified 07/25/18 21:02 Penicillins Allergy Swelling Verified 07/25/18 21:02 prochlorperazine Allergy Rash/Hives Verified 07/25/18 21:02 Sulfa (Sulfonamide Allergy Rash/Hives Verified 07/25/18 21:02 Antibiotics) Tetanus Vaccines and Toxoid Allergy Rash/Hives Verified 07/25/18 21:02 [Tetanus Vaccines & Toxoid] trifluoperazine HCl Allergy Unknown Verified 07/25/18 21:02 [From Stelazine] hydroxyzine [From Vistaril] AdvReac Rash/Hives Verified 07/25/18 21:02 Review of Systems ROS Statement: Those systems with pertinent positive or pertinent negative responses have been documented in the HPI. ROS Other: All systems not noted in ROS Statement are negative. Past Medical History Past Medical History: Asthma, Heart Failure, COPD, Diabetes Mellitus, GERD/ Reflux, Hyperlipidemia, Hypertension, Musculoskeletal Disorder, Osteoarthritis ( OA), Pneumonia, Pulmonary Embolus (PE), Thyroid Disorder Additional Past Medical History / Comment(s): Pt recently admitted to [facility] on with exacerbation COPD, asthma and possible pneumonia. Other hx: NIDDM type II but pt states no longer has to monitor blood sugars at home, chronic low back pain, herniated discs, RLS, leg edema, recent L leg cellulitis, anemia , gout bilateral feet, hypothyroid, UTIs History of Any Multi-Drug Resistant Organisms: None Reported Past Surgical History: Bariatric Surgery, Heart Catheterization, Hernia Repair, Orthopedic Surgery Additional Past Surgical History / Comment(s): Total Right knee replacement, 3 abdominal hernia repairs, left hip repair d/t fracture, gastric bypass/revision , colonoscopy. Past Anesthesia/Blood Transfusion Reactions: No Reported Reaction Past Psychological History: Anxiety, Bipolar, Depression, Panic Disorder, PTSD Smoking Status: Never smoker Past Alcohol Use History: None Reported Past Drug Use History: None Reported - Past Family History Mother Family Medical History: Cancer Additional Family Medical History / Comment(s): lung cancer Father Family Medical History: Diabetes Mellitus Additional Family Medical History / Comment(s): "my dad from a blood clot that traveled from his leg to his lung and also caused a heart attack." Brother(s) Family Medical History: Diabetes Mellitus Sister(s) Additional Family Medical History / Comment(s): "her heart races too fast" General Exam - General Exam Comments Initial Comments: Constitutional: Awake alert Appears comfortable, obese Head: Normocephalic atraumatic Eyes: no conjunctival injection No scleral icterus EOMI Neck: No JVD Supple Heart: Regular rate rhythm normal S1-S2 no murmurs Lungs: Clear to auscultation bilaterally No wheezing No rales Abdomen: Soft nondistended nontender Extremities: Bilateral lower extremities are edematous, there is a macular rash to the medial aspect of the left calf that is itchy per the patient DP pulses intact Radial pulses intact Neuro: A&Ox3 No focal neurologic deficits Psych: Appropriate mood and affect, no suicidal ideation currently, does appear depressed Limitations: physical limitation Course Vital Signs 07/25/18 20:59 Temperature 97.6 F Pulse Rate 99 Respiratory 20 Rate Blood Pressure 133/51 O2 Sat by Pulse 98 Oximetry Medical Decision Making - Medical Decision Making This is a 58-year-old female who presents emergency department for depression. The patient was evaluated with labwork that was unchanged from previous lab work. The patient has had multiple ED visits for her swelling and shortness of breath with unclear etiology however no emergent pathology. The patient was evaluated by EPS who stated that she was safe to go home and did not feel that she required inpatient admission. The patient was requesting to go home. The patient will be discharged. Told to follow-up with the psychiatric resources provided and return emergency Department if she has returning of her depression or suicidal thoughts. All questions answered. - Lab Data Result diagrams: 07/25/18 22:07 07/25/18 22:07 Lab Results 07/25/18 07/25/18 07/25/18 Range/Units 21:45 22:07 22:07 WBC 7.7 (3.8-10.6) k/uL RBC 3.74 L (3.80-5.40) m/uL Hgb 9.1 L (11.4-16.0) gm/dL Hct 28.4 L (34.0-46.0) % MCV 76.1 L (80.0-100.0) fL MCH 24.3 L (25.0-35.0) pg MCHC 31.9 (31.0-37.0) g/dL RDW 16.1 H (11.5-15.5) % Plt Count 348 (150-450) k/uL Neutrophils % 70 % Lymphocytes % 18 % Monocytes % 6 % Eosinophils % 2 % Basophils % 0 % Neutrophils # 5.4 (1.3-7.7) k/uL Lymphocytes # 1.4 (1.0-4.8) k/uL Monocytes # 0.4 (0-1.0) k/uL Eosinophils # 0.2 (0-0.7) k/uL Basophils # 0.0 (0-0.2) k/uL Hypochromasia Slight Anisocytosis Slight Microcytosis Slight Sodium 139 (137-145) mmol/L Potassium 3.6 (3.5-5.1) mmol/L Chloride 100 (98-107) mmol/L Carbon Dioxide 29 (22-30) mmol/L Anion Gap 10 mmol/L BUN 32 H (7-17) mg/dL Creatinine 0.89 (0.52-1.04) mg/dL Est GFR (CKD-EPI)AfAm 83 (>60 ml/min/1.73 sqM) Est GFR (CKD-EPI)NonAf 72 (>60 ml/min/1.73 sqM) Glucose 102 H (74-99) mg/dL Calcium 9.6 (8.4-10.2) mg/dL Magnesium 1.8 (1.6-2.3) mg/dL Total Bilirubin 0.3 (0.2-1.3) mg/dL AST 31 (14-36) U/L ALT 27 (9-52) U/L Alkaline Phosphatase 103 (38-126) U/L NT-Pro-B Natriuret Pep pg/mL Total Protein 6.9 (6.3-8.2) g/dL Albumin 4.0 (3.5-5.0) g/dL Urine Color Colorless Urine Appearance Clear (Clear) Urine pH 5.0 (5.0-8.0) Ur Specific [place] 1.006 (1.001-1.035) Urine Protein Negative (Negative) Urine Glucose (UA) Negative (Negative) Urine Ketones Negative (Negative) Urine Blood Negative (Negative) Urine Nitrite Negative (Negative) Urine Bilirubin Negative (Negative) Urine Urobilinogen <2.0 (<2.0) mg/dL Ur Leukocyte Esterase Negative (Negative) Salicylates <1.0 mg/dL Urine Opiates Screen Not Detected (NotDetected) Ur Oxycodone Screen Not Detected (NotDetected) Urine Methadone Screen Not Detected (NotDetected) Ur Propoxyphene Screen Not Detected (NotDetected) Acetaminophen <10.0 ug/mL Ur Barbiturates Screen Not Detected (NotDetected) U Tricyclic Antidepress Not Detected (NotDetected) Ur Phencyclidine Scrn Not Detected (NotDetected) Ur Amphetamines Screen Not Detected (NotDetected) U Methamphetamines Scrn Not Detected (NotDetected) U Benzodiazepines Scrn Not Detected (NotDetected) Urine Cocaine Screen Not Detected (NotDetected) U Marijuana (THC) Screen Not Detected (NotDetected) 07/25/18 Range/Units 22:07 WBC (3.8-10.6) k/uL RBC (3.80-5.40) m/uL Hgb (11.4-16.0) gm/dL Hct (34.0-46.0) % MCV (80.0-100.0) fL MCH (25.0-35.0) pg MCHC (31.0-37.0) g/dL RDW (11.5-15.5) % Plt Count (150-450) k/uL Neutrophils % % Lymphocytes % % Monocytes % % Eosinophils % % Basophils % % Neutrophils # (1.3-7.7) k/uL Lymphocytes # (1.0-4.8) k/uL Monocytes # (0-1.0) k/uL Eosinophils # (0-0.7) k/uL Basophils # (0-0.2) k/uL Hypochromasia Anisocytosis Microcytosis Sodium (137-145) mmol/L Potassium (3.5-5.1) mmol/L Chloride (98-107) mmol/L Carbon Dioxide (22-30) mmol/L Anion Gap mmol/L BUN (7-17) mg/dL Creatinine (0.52-1.04) mg/dL Est GFR (CKD-EPI)AfAm (>60 ml/min/1.73 sqM) Est GFR (CKD-EPI)NonAf (>60 ml/min/1.73 sqM) Glucose (74-99) mg/dL Calcium (8.4-10.2) mg/dL Magnesium (1.6-2.3) mg/dL Total Bilirubin (0.2-1.3) mg/dL AST (14-36) U/L ALT (9-52) U/L Alkaline Phosphatase (38-126) U/L NT-Pro-B Natriuret Pep 231 pg/mL Total Protein (6.3-8.2) g/dL Albumin (3.5-5.0) g/dL Urine Color Urine Appearance (Clear) Urine pH (5.0-8.0) Ur Specific [place] (1.001-1.035) Urine Protein (Negative) Urine Glucose (UA) (Negative) Urine Ketones (Negative) Urine Blood (Negative) Urine Nitrite (Negative) Urine Bilirubin (Negative) Urine Urobilinogen (<2.0) mg/dL Ur Leukocyte Esterase (Negative) Salicylates mg/dL Urine Opiates Screen (NotDetected) Ur Oxycodone Screen (NotDetected) Urine Methadone Screen (NotDetected) Ur Propoxyphene Screen (NotDetected) Acetaminophen ug/mL Ur Barbiturates Screen (NotDetected) U Tricyclic Antidepress (NotDetected) Ur Phencyclidine Scrn (NotDetected) Ur Amphetamines Screen (NotDetected) U Methamphetamines Scrn (NotDetected) U Benzodiazepines Scrn (NotDetected) Urine Cocaine Screen (NotDetected) U Marijuana (THC) Screen (NotDetected) Disposition Clinical Impression: Depression Disposition: HOME SELF-CARE Condition: Stable Instructions: Depression (ED) Is patient prescribed a controlled substance at d/c from ED?: No Referrals: [facility] [Primary Care Provider] - 1-2 days
[2018-07-25 22:02] LABS: Appearance,Urine Clear (Clear); Bilirubin,Urine Negative (Negative); Blood,Urine Negative (Negative); Color,Urine Colorless; Glucose,Urine (UA) Negative (Negative); Ketones,Urine Negative (Negative); Leukocyte Esterase,Urine Negative (Negative); Nitrite,Urine Negative (Negative); Protein,Urine Negative (Negative); Specific Gravity,Urine 1.006 (1.001-1.035); Urobilinogen,Urine <2.0 mg/dL (<2.0)
[2018-07-25 22:14] LABS: Amphetamine Screen,Urine Not Detected (NotDetected); Barbiturate Screen,Urine Not Detected (NotDetected); Benzodiazepines Screen,Urine Not Detected (NotDetected); Cocaine Screen,Urine Not Detected (NotDetected); Methadone Screen, Urine Not Detected (NotDetected); Opiate Screen,Urine Not Detected (NotDetected); Oxycodone Screen, Urine Not Detected (NotDetected); Phencyclidine Screen,Urine Not Detected (NotDetected); Tricyclic Antidepressant,Urine Not Detected (NotDetected); Urn Cannabinoid Scrn Not Detected (NotDetected)
[2018-07-25 22:33] LABS: Anisocytosis Slight; Basophils % (A) 0 %; Eosinophils # (A) 0.2 k/uL (0-0.7); Eosinophils % (A) 2 %; HCT 28.4 % (34.0-46.0); HGB 9.1 gm/dL (11.4-16.0); Hypochromasia Slight; Lymphocytes # (A) 1.4 k/uL (1.0-4.8); Lymphocytes % (A) 18 %; MCH 24.3 pg (25.0-35.0); MCHC 31.9 g/dL (31.0-37.0); MCV 76.1 fL (80.0-100.0); Mean Platelet Volume 7.1; Microcytosis Slight; Monocytes # (A) 0.4 k/uL (0-1.0); Monocytes % (A) 6 %; Neutrophils # (A) 5.4 k/uL (1.3-7.7); Neutrophils % (A) 70 %; Platelet Count 348 k/uL (150-450); RBC 3.74 m/uL (3.80-5.40); RDW 16.1 % (11.5-15.5); WBC 7.7 k/uL (3.8-10.6)
[2018-07-25 22:44] LABS: ALT 27 U/L (9-52); AST 31 U/L (14-36); Acetaminophen <10.0 ug/mL; Alkaline Phosphatase 103 U/L (38-126); Anion Gap 10 mmol/L; Blood Urea Nitrogen 32 mg/dL (7-17); Calcium 9.6 mg/dL (8.4-10.2); Carbon Dioxide 29 mmol/L (22-30); Chloride 100 mmol/L (98-107); Glucose 102 mg/dL (74-99); Magnesium 1.8 mg/dL (1.6-2.3); Potassium 3.6 mmol/L (3.5-5.1); Salicylate <1.0 mg/dL; Sodium 139 mmol/L (137-145); Total Bilirubin 0.3 mg/dL (0.2-1.3); Total Protein 6.9 g/dL (6.3-8.2)
[2018-07-26 00:39] VITALS: BP 130/82; PULSE 85; TEMP 98.2
== END 2018-07-26 00:25 | disposition home or self-care (01) ==
LOC: EC 20:57
DX: F31.9 Bipolar disorder, unspecified (principal); F41.0 Panic disorder [episodic paroxysmal anxiety]; J44.9 Chronic obstructive pulmonary disease, unspecified; I11.0 Hypertensive heart disease with heart failure; I50.9 Heart failure, unspecified; E78.5 Hyperlipidemia, unspecified; E11.9 Type 2 diabetes mellitus without complications; K21.9 Gastro-esophageal reflux disease without esophagitis; M19.90 Unspecified osteoarthritis, unspecified site; E03.9 Hypothyroidism, unspecified; Z79.02 Long term (current) use of antithrombotics/antiplatelets; Z79.899 Other long term (current) drug therapy; Z88.0 Allergy status to penicillin; Z88.8 Allergy status to other drugs, medicaments and biological substances; Z91.048 Other nonmedicinal substance allergy status; Z88.2 Allergy status to sulfonamides; Z88.7 Allergy status to serum and vaccine; Z86.711 Personal history of pulmonary embolism; Z95.5 Presence of coronary angioplasty implant and graft; Z98.84 Bariatric surgery status; Z96.651 Presence of right artificial knee joint
CPT/HCPCS: 36415; 80053; 80306; 81003; 83520; 83735; 83880; 85025; 99285

== ENCOUNTER 2018-08-04 19:42 | Emergency (ER) | payer MEDICARE, OTHER ==
[2018-08-04 19:59] VITALS: BP 145/63; PULSE 105; RESP 20; TEMP 98.7
[2018-08-04 21:00] LABS: Basophils % (A) 0 %; Eosinophils % (A) 0 %; HCT 27.6 % (34.0-46.0); HGB 8.7 gm/dL (11.4-16.0); Hypochromasia Slight; Lymphocytes # (A) 1.3 k/uL (1.0-4.8); Lymphocytes % (A) 14 %; MCH 23.6 pg (25.0-35.0); MCHC 31.5 g/dL (31.0-37.0); MCV 74.8 fL (80.0-100.0); Mean Platelet Volume 7.3; Microcytosis Slight; Monocytes # (A) 0.7 k/uL (0-1.0); Monocytes % (A) 7 %; Neutrophils # (A) 6.9 k/uL (1.3-7.7); Neutrophils % (A) 75 %; Platelet Count 349 k/uL (150-450); RBC 3.69 m/uL (3.80-5.40); RDW 15.9 % (11.5-15.5); WBC 9.2 k/uL (3.8-10.6)
[2018-08-04 21:13] LABS: ALT 29 U/L (9-52); AST 25 U/L (14-36); Albumin 3.6 g/dL (3.5-5.0); Alkaline Phosphatase 90 U/L (38-126); Anion Gap 8 mmol/L; Blood Urea Nitrogen 36 mg/dL (7-17); Calcium 9.4 mg/dL (8.4-10.2); Carbon Dioxide 26 mmol/L (22-30); Chloride 106 mmol/L (98-107); Glucose 107 mg/dL (74-99); Potassium 4.2 mmol/L (3.5-5.1); Sodium 140 mmol/L (137-145); Total Bilirubin 0.2 mg/dL (0.2-1.3); Total Protein 6.3 g/dL (6.3-8.2)
[2018-08-04 21:19] LABS: Creatine Kinase 66 U/L (30-135)
[2018-08-04 21:33] LABS: Creatine Kinase MB 1.4 ng/mL (0.0-2.4); Troponin I <0.012 ng/mL (0.000-0.034)
[2018-08-04 21:45] LABS: Appearance,Urine Clear (Clear); Bacteria,Urine Rare /hpf; Bilirubin,Urine Negative (Negative); Blood,Urine Negative (Negative); Color,Urine Light Yellow; Glucose,Urine (UA) Negative (Negative); Ketones,Urine Negative (Negative); Leukocyte Esterase,Urine Trace (Negative); Mucus,Urine Rare /hpf; Nitrite,Urine Negative (Negative); Protein,Urine Negative (Negative); RBC,Urine 1 /hpf (0-5); Specific Gravity,Urine 1.009 (1.001-1.035); Squamous Epithelial Cell,Urine <1 /hpf (0-4); Urobilinogen,Urine <2.0 mg/dL (<2.0); WBC,Urine 2 /hpf (0-5)
[2018-08-04 21:52] LABS: Amphetamine Screen,Urine Not Detected (NotDetected); Barbiturate Screen,Urine Not Detected (NotDetected); Benzodiazepines Screen,Urine Not Detected (NotDetected); Cocaine Screen,Urine Not Detected (NotDetected); Methadone Screen, Urine Not Detected (NotDetected); Opiate Screen,Urine Detected (NotDetected); Oxycodone Screen, Urine Not Detected (NotDetected); Phencyclidine Screen,Urine Not Detected (NotDetected); Tricyclic Antidepressant,Urine Not Detected (NotDetected); Urn Cannabinoid Scrn Not Detected (NotDetected)
[2018-08-05] MEDS: rOPINIRole HCL 4 MG TABLET PO SCH (00:01)
--- NOTE | 2018-08-05 00:01 | ED ---
Psych HPI - General Source: patient, EMS Mode of arrival: EMS <Thalia Covington - Last Filed: 08/08/18 14:53> <Susanne Allen P - Last Filed: 08/14/18 00:27> - General Chief Complaint: Psychiatric Symptoms Stated Complaint: Suicidal - History of Present Illness Initial Comments: 58 with multiple comorbities known well to the ER presenting to the ER today for cc of panic attack. Pt states that she woke up this evening feeling anxious , she states it felt identical to when she has had panic attacks in the past. Shes states that for the past month she has had suicidal ideations, denies current. She staes she has been seeing Dr. Spaulding about her panic disorder who recently increased her medication dose. Pt denies suicidal plans or homicidal ideations. Pt states that she called the crisis hotline about her anixety who told her to come in this evening. Pt denies chest pain, shortness of breath, dizziness, palpatations, LE swelling, nausea, vomiting, abdominal pain, hemoptysis. Pt states her legs are restless because she has restless leg syndrome. Upon arrival we attempted to obtained EKG, due to cc of anxiety, pt refused. Upon arrival pt appears well, there are no signs of acute distress. Remainder of ROS (-). (Thalia Covington) - Related Data Home Medications Medication Instructions Recorded Confirmed Mirabegron [Myrbetriq] 50 mg PO DAILY 05/23/17 08/04/18 Atorvastatin [Lipitor] 10 mg PO HS 06/07/17 08/04/18 Carvedilol [Coreg] 25 mg PO BID 06/07/17 08/04/18 Loratadine [Claritin] 10 mg PO DAILY 06/07/17 08/04/18 Multivitamins, Thera [Multivitamin 1 tab PO DAILY 06/07/17 08/04/18 (formulary)] Omeprazole 20 mg PO DAILY 06/07/17 08/04/18 Levothyroxine Sodium [Synthroid] 137 mcg PO DAILY 10/20/17 08/04/18 hydrALAZINE HCL [Apresoline] 50 mg PO TID 10/20/17 08/04/18 Potassium Chloride ER [K-Dur 10] 20 meq PO DAILY 03/19/18 08/04/18 rOPINIRole HCL 4 mg PO BID 03/31/18 08/04/18 Gabapentin [Neurontin] 100 mg PO BID 06/06/18 07/25/18 Metolazone [Zaroxolyn] 2.5 mg PO DAILY 06/06/18 08/04/18 Albuterol Inhaler [Ventolin Hfa 2 puff INHALATION RT-QID PRN 06/10/18 08/04/18 Inhaler] Montelukast [Singulair] 10 mg PO HS 06/28/18 08/04/18 Furosemide [Lasix] 40 mg PO DAILY 07/21/18 08/04/18 Furosemide [Lasix] 80 mg PO HS 07/21/18 08/04/18 risperiDONE MICROSPHERES 25 mg IM Q14D 07/21/18 08/04/18 [RisperDAL CONSTA] Cholecalciferol (Vitamin D3) 10,000 unit PO DAILY 07/23/18 08/04/18 [Vitamin D3] Cefuroxime Axetil [Ceftin] 500 mg PO BID 08/04/18 08/04/18 Gabapentin (Unknown) 0 tab PO DIRECTED 08/04/18 08/04/18 Melatonin 5 mg PO HS 08/04/18 08/04/18 predniSONE 0 tab PO DIRECTED 08/04/18 08/04/18 Previous Rx's Medication Instructions Recorded Rivaroxaban [Xarelto] 20 mg PO DAILY 90 Days #90 tab 11/18/17 Allergies Allergy/AdvReac Type Severity Reaction Status Date / Time buspirone [From BuSpar] Allergy Unknown Verified 08/04/18 21:03 haloperidol [From Haldol] Allergy Swelling Verified 08/04/18 21:03 iodine Allergy Swelling Verified 08/04/18 21:03 Penicillins Allergy Swelling Verified 08/04/18 21:03 prochlorperazine Allergy Rash/Hives Verified 08/04/18 21:03 Sulfa (Sulfonamide Allergy Rash/Hives Verified 08/04/18 21:03 Antibiotics) Tetanus Vaccines and Toxoid Allergy Rash/Hives Verified 08/04/18 21:03 [Tetanus Vaccines & Toxoid] trifluoperazine HCl Allergy Unknown Verified 08/04/18 21:03 [From Stelazine] hydroxyzine [From Vistaril] AdvReac Rash/Hives Verified 08/04/18 21:03 Review of Systems ROS Other: All systems not noted in ROS Statement are negative. Constitutional: Denies: fever, chills ENT: Denies: ear pain, throat pain Respiratory: Denies: cough, dyspnea, wheezes, hemoptysis, stridor Cardiovascular: Denies: chest pain, palpitations, dyspnea on exertion, orthopnea , edema, syncope Gastrointestinal: Denies: abdominal pain, nausea, vomiting, diarrhea, hematemesis, melena, hematochezia Genitourinary: Denies: urgency Musculoskeletal: Denies: back pain Neurological: Denies: headache, weakness, numbness, paresthesias, confusion Psychiatric: Reports: anxiety, depression (states always depressed) <Thalia Covington - Last Filed: 08/08/18 14:53> ROS Other: All systems not noted in ROS Statement are negative. <Susanne Allen - Last Filed: 08/14/18 00:27> ROS Statement: Those systems with pertinent positive or pertinent negative responses have been documented in the HPI. Past Medical History Past Medical History: Asthma, Heart Failure, COPD, Diabetes Mellitus, GERD/ Reflux, Hyperlipidemia, Hypertension, Musculoskeletal Disorder, Osteoarthritis ( OA), Pneumonia, Pulmonary Embolus (PE), Thyroid Disorder Additional Past Medical History / Comment(s): Pt recently admitted to [facility] on with exacerbation COPD, asthma and possible pneumonia. Other hx: NIDDM type II but pt states no longer has to monitor blood sugars at home, chronic low back pain, herniated discs, RLS, leg edema, recent L leg cellulitis, anemia , gout bilateral feet, hypothyroid, UTIs History of Any Multi-Drug Resistant Organisms: None Reported Past Surgical History: Bariatric Surgery, Heart Catheterization, Hernia Repair, Orthopedic Surgery Additional Past Surgical History / Comment(s): Total Right knee replacement, 3 abdominal hernia repairs, left hip repair d/t fracture, gastric bypass/revision , colonoscopy. Past Anesthesia/Blood Transfusion Reactions: No Reported Reaction Past Psychological History: Anxiety, Bipolar, Depression, Panic Disorder, PTSD Smoking Status: Never smoker Past Alcohol Use History: None Reported Past Drug Use History: None Reported - Past Family History Mother Family Medical History: Cancer Additional Family Medical History / Comment(s): lung cancer Father Family Medical History: Diabetes Mellitus Additional Family Medical History / Comment(s): "my dad from a blood clot that traveled from his leg to his lung and also caused a heart attack." Brother(s) Family Medical History: Diabetes Mellitus Sister(s) Additional Family Medical History / Comment(s): "her heart races too fast" <AdriaThalia Santos - Last Filed: 08/08/18 14:53> General Exam Limitations: no limitations <Thalia Covington - Last Filed: 08/08/18 14:53> <Susanne Allen - Last Filed: 08/14/18 00:27> - General Exam Comments Initial Comments: General: The patient is awake and alert, in no distress, and does not appear acutely ill. Eye: Pupils are equal, round and reactive to light, extra-ocular movements are intact. No nystagmus. There is normal conjunctiva bilaterally. No signs of icterus. Ears, nose, mouth and throat: There are moist mucous membranes and no oral lesions. Neck: The neck is supple, there is no tenderness or JVD. Cardiovascular: There is a regular rate and rhythm. No murmur, rub or gallop is appreciated. Respiratory: Lungs are clear to auscultation, respirations are non-labored, breath sounds are equal. No wheezes, stridor, rales, or rhonchi. Gastrointestinal: Soft, non-distended, non-tender abdomen without masses or organomegaly noted. There is no rebound or guarding present. No CVA tenderness. Bowel sounds are unremarkable. Musculoskeletal: Normal ROM, no tenderness. Strength 5/5. Sensation intact. DP pulses equal bilaterally 2+. Neurological: A&O x 3. CN II-XII intact, There are no obvious motor or sensory deficits. Coordination appears grossly intact. Speech is normal. Skin: Skin is warm and dry and no rashes or lesions are noted.(-) HOmans, no pain along the deep venous system of LE, legs equal in appearance. Psychiatric: Cooperative, appropriate mood & affect, normal judgment. (Thalia Covington) Vital Signs 08/04/18 19:57 Temperature 98.7 F Pulse Rate 105 H Respiratory 20 Rate Blood Pressure 145/63 O2 Sat by Pulse 97 Oximetry Medical Decision Making - Lab Data Result diagrams: 08/04/18 20:40 08/04/18 20:40 <Thalia Covington - Last Filed: 08/08/18 14:53> - Lab Data Result diagrams: 08/04/18 20:40 08/04/18 20:40 <Susanne Allen - Last Filed: 08/14/18 00:27> - Medical Decision Making Upon reevaluation following initial history taking and pt refusing testing for the irst 2 hours of visit, Pt states she does not like home environment she states that her bed has urine in it, she just needs place to stay. Pt did state at triage that she has suicidal ideation on and off for past month, pt states she does not have any currently. Pt does admit to increased anxiety, given risk factor ACS w/u ordered. Pt denied chest pain or symptoms concerning for ACS. Pt requesting me to leave her alone, she "doesnt want any testing". Pt eventually compliant with orders. ACS w/u negative. Hgb 8.7 this appears to be consistent with her baseline values. PT denies melena, hematochezia. Pt aware of findings , stating this is chronic. No pallor noted on exam, pt denied cold intolerance or palpitations. Pt requesting d/c. Pt medically cleared for psych evaluation. EPS evaluated pt after pt refused EPS evaluation initially. Recommendation was discharge. Case discussed with attending Dr. Allen who is familiar with patient history. We feel pt is stable for discharge with f/u with primary provider in next 24 hours for repeat laboratory studies and evaluation. Pt is agreeable with plan and discharge. (Thalia Covington) I personally saw and examined the patient. I reviewed and agree with the mid- level provider findings including all diagnostic interpretations and treatment plans as written unless otherwise stated. (Susanne Allen) - Lab Data Lab Results 08/04/18 08/04/18 08/04/18 Range/Units 20:40 20:40 20:40 WBC 9.2 (3.8-10.6) k/uL RBC 3.69 L (3.80-5.40) m/uL Hgb 8.7 L (11.4-16.0) gm/dL Hct 27.6 L (34.0-46.0) % MCV 74.8 L (80.0-100.0) fL MCH 23.6 L (25.0-35.0) pg MCHC 31.5 (31.0-37.0) g/dL RDW 15.9 H (11.5-15.5) % Plt Count 349 (150-450) k/uL Neutrophils % 75 % Lymphocytes % 14 % Monocytes % 7 % Eosinophils % 0 % Basophils % 0 % Neutrophils # 6.9 (1.3-7.7) k/uL Lymphocytes # 1.3 (1.0-4.8) k/uL Monocytes # 0.7 (0-1.0) k/uL Eosinophils # 0.0 (0-0.7) k/uL Basophils # 0.0 (0-0.2) k/uL Hypochromasia Slight Microcytosis Slight Sodium 140 (137-145) mmol/L Potassium 4.2 (3.5-5.1) mmol/L Chloride 106 (98-107) mmol/L Carbon Dioxide 26 (22-30) mmol/L Anion Gap 8 mmol/L BUN 36 H (7-17) mg/dL Creatinine 0.78 (0.52-1.04) mg/dL Est GFR (CKD-EPI)AfAm >90 (>60 ml/min/1.73 sqM) Est GFR (CKD-EPI)NonAf 85 (>60 ml/min/1.73 sqM) Glucose 107 H (74-99) mg/dL Calcium 9.4 (8.4-10.2) mg/dL Magnesium 2.0 (1.6-2.3) mg/dL Total Bilirubin 0.2 (0.2-1.3) mg/dL AST 25 (14-36) U/L ALT 29 (9-52) U/L Alkaline Phosphatase 90 (38-126) U/L Total Creatine Kinase 66 (30-135) U/L CK-MB (CK-2) 1.4 (0.0-2.4) ng/mL CK-MB (CK-2) Rel Index 2.1 Troponin I <0.012 (0.000-0.034) ng/mL Total Protein 6.3 (6.3-8.2) g/dL Albumin 3.6 (3.5-5.0) g/dL Urine Color Urine Appearance (Clear) Urine pH (5.0-8.0) Ur Specific [place] (1.001-1.035) Urine Protein (Negative) Urine Glucose (UA) (Negative) Urine Ketones (Negative) Urine Blood (Negative) Urine Nitrite (Negative) Urine Bilirubin (Negative) Urine Urobilinogen (<2.0) mg/dL Ur Leukocyte Esterase (Negative) Urine RBC (0-5) /hpf Urine WBC (0-5) /hpf Ur Squamous Epith Cells (0-4) /hpf Urine Bacteria (None) /hpf Urine Mucus (None) /hpf Urine Opiates Screen (NotDetected) Ur Oxycodone Screen (NotDetected) Urine Methadone Screen (NotDetected) Ur Propoxyphene Screen (NotDetected) Ur Barbiturates Screen (NotDetected) U Tricyclic Antidepress (NotDetected) Ur Phencyclidine Scrn (NotDetected) Ur Amphetamines Screen (NotDetected) U Methamphetamines Scrn (NotDetected) U Benzodiazepines Scrn (NotDetected) Urine Cocaine Screen (NotDetected) U Marijuana (THC) Screen (NotDetected) 08/04/18 Range/Units 21:23 WBC (3.8-10.6) k/uL RBC (3.80-5.40) m/uL Hgb (11.4-16.0) gm/dL Hct (34.0-46.0) % MCV (80.0-100.0) fL MCH (25.0-35.0) pg MCHC (31.0-37.0) g/dL RDW (11.5-15.5) % Plt Count (150-450) k/uL Neutrophils % % Lymphocytes % % Monocytes % % Eosinophils % % Basophils % % Neutrophils # (1.3-7.7) k/uL Lymphocytes # (1.0-4.8) k/uL Monocytes # (0-1.0) k/uL Eosinophils # (0-0.7) k/uL Basophils # (0-0.2) k/uL Hypochromasia Microcytosis Sodium (137-145) mmol/L Potassium (3.5-5.1) mmol/L Chloride (98-107) mmol/L Carbon Dioxide (22-30) mmol/L Anion Gap mmol/L BUN (7-17) mg/dL Creatinine (0.52-1.04) mg/dL Est GFR (CKD-EPI)AfAm (>60 ml/min/1.73 sqM) Est GFR (CKD-EPI)NonAf (>60 ml/min/1.73 sqM) Glucose (74-99) mg/dL Calcium (8.4-10.2) mg/dL Magnesium (1.6-2.3) mg/dL Total Bilirubin (0.2-1.3) mg/dL AST (14-36) U/L ALT (9-52) U/L Alkaline Phosphatase (38-126) U/L Total Creatine Kinase (30-135) U/L CK-MB (CK-2) (0.0-2.4) ng/mL CK-MB (CK-2) Rel Index Troponin I (0.000-0.034) ng/mL Total Protein (6.3-8.2) g/dL Albumin (3.5-5.0) g/dL Urine Color Light Yellow Urine Appearance Clear (Clear) Urine pH 5.0 (5.0-8.0) Ur Specific [place] 1.009 (1.001-1.035) Urine Protein Negative (Negative) Urine Glucose (UA) Negative (Negative) Urine Ketones Negative (Negative) Urine Blood Negative (Negative) Urine Nitrite Negative (Negative) Urine Bilirubin Negative (Negative) Urine Urobilinogen <2.0 (<2.0) mg/dL Ur Leukocyte Esterase Trace H (Negative) Urine RBC 1 (0-5) /hpf Urine WBC 2 (0-5) /hpf Ur Squamous Epith Cells <1 (0-4) /hpf Urine Bacteria Rare H (None) /hpf Urine Mucus Rare H (None) /hpf Urine Opiates Screen Detected H (NotDetected) Ur Oxycodone Screen Not Detected (NotDetected) Urine Methadone Screen Not Detected (NotDetected) Ur Propoxyphene Screen Not Detected (NotDetected) Ur Barbiturates Screen Not Detected (NotDetected) U Tricyclic Antidepress Not Detected (NotDetected) Ur Phencyclidine Scrn Not Detected (NotDetected) Ur Amphetamines Screen Not Detected (NotDetected) U Methamphetamines Scrn Not Detected (NotDetected) U Benzodiazepines Scrn Not Detected (NotDetected) Urine Cocaine Screen Not Detected (NotDetected) U Marijuana (THC) Screen Not Detected (NotDetected) - EKG Data EKG Comments: A 12-lead EKG was performed and shows the following: Rate is 96bpm, and rhythm is normal sinus. There are normal QRS complexes and normal R-wave progression. ST segments have no elevation or depression, and IN segments appear normal. IN interval 130 ms, stress duration 96 seconds, QT/QTC 352/444 ms. Compared with previous EKG, no acute findings/changes. (Thalia Covington) Disposition Is patient prescribed a controlled substance at d/c from ED?: No Time of Disposition: 01:34 <Thalia Covington - Last Filed: 08/08/18 14:53> <Susanne Allen - Last Filed: 08/14/18 00:27> Clinical Impression: Anxiety, Depression Disposition: HOME SELF-CARE Condition: Good Instructions: Depression (ED) Referrals: [facility] [Primary Care Provider] - 1-2 days
--- NOTE | 2018-08-05 00:39 | XR ---
EXAMINATION TYPE: XR chest 2V DATE OF EXAM: 08/05/2018 COMPARISON: 07/23/2018 HISTORY: Chest pain TECHNIQUE: Frontal and lateral views of the chest are obtained. FINDINGS: Heart and mediastinum are normal. Lungs are clear of infiltrate. There is spurring in the thoracic spine. Costophrenic angles are clear. Exam is limited somewhat by patient size. IMPRESSION: No active cardiopulmonary disease. Normal heart. No change.
== END 2018-08-05 02:11 | disposition home or self-care (01) ==
LOC: EC 19:42
DX: F31.9 Bipolar disorder, unspecified (principal); F41.0 Panic disorder [episodic paroxysmal anxiety]; R45.851 Suicidal ideations; J44.9 Chronic obstructive pulmonary disease, unspecified; I11.0 Hypertensive heart disease with heart failure; I50.9 Heart failure, unspecified; M19.90 Unspecified osteoarthritis, unspecified site; E03.9 Hypothyroidism, unspecified; G25.81 Restless legs syndrome; M10.9 Gout, unspecified; Z79.899 Other long term (current) drug therapy; Z79.52 Long term (current) use of systemic steroids; F43.10 Post-traumatic stress disorder, unspecified; Z53.29 Procedure and treatment not carried out because of patient's decision for other reasons; Z96.651 Presence of right artificial knee joint; Z95.818 Presence of other cardiac implants and grafts; Z88.0 Allergy status to penicillin; Z88.2 Allergy status to sulfonamides; Z88.7 Allergy status to serum and vaccine; Z88.8 Allergy status to other drugs, medicaments and biological substances
CPT/HCPCS: 36415; 71046; 80053; 80306; 81001; 82075; 82550; 82553; 83735; 84484; 85025; 93005; 99285

== ENCOUNTER 2018-08-15 18:23 | Emergency (ER) | payer MEDICARE, OTHER ==
[2018-08-15 18:40] VITALS: RESP 18
--- NOTE | 2018-08-15 19:09 | ED ---
General Adult HPI - General Chief complaint: Fall Stated complaint: Fall Time Seen by Provider: 08/15/18 18:25 Source: EMS, RN notes reviewed Mode of arrival: EMS Limitations: physical limitation - History of Present Illness Initial comments: Patient 58-year-old female presenting to the emergency room today by EMS, patient states that she was trying to make her bed when she lost her balance falling down landing on the left hip. Patient does admit to pain locally to the area. States she's been able to stand ambulate. Patient denies any head injury or loss conscious. Denies any other complaints or symptoms. Patient denies any recent fever, chills, shortness of breath, chest pain, back pain, abdominal pain, nausea or vomiting, headaches or visual changes, or any other complaints. - Related Data Home Medications Medication Instructions Recorded Confirmed Mirabegron [Myrbetriq] 50 mg PO DAILY 05/23/17 08/15/18 Atorvastatin [Lipitor] 10 mg PO HS 06/07/17 08/15/18 Carvedilol [Coreg] 25 mg PO BID 06/07/17 08/15/18 Loratadine [Claritin] 10 mg PO DAILY 06/07/17 08/15/18 Multivitamins, Thera [Multivitamin 1 tab PO DAILY 06/07/17 08/15/18 (formulary)] Omeprazole 20 mg PO DAILY 06/07/17 08/15/18 Levothyroxine Sodium [Synthroid] 137 mcg PO DAILY 10/20/17 08/15/18 hydrALAZINE HCL [Apresoline] 50 mg PO BID 10/20/17 08/15/18 rOPINIRole HCL 4 mg PO BID 03/31/18 08/15/18 Metolazone [Zaroxolyn] 2.5 mg PO DAILY 06/06/18 08/15/18 Albuterol Inhaler [Ventolin Hfa 2 puff INHALATION RT-Q6H PRN 06/10/18 08/15/18 Inhaler] Montelukast [Singulair] 10 mg PO HS 06/28/18 08/15/18 risperiDONE MICROSPHERES 12.5 mg IM Q14D 07/21/18 08/15/18 [RisperDAL CONSTA] Cholecalciferol (Vitamin D3) 10,000 unit PO DAILY 07/23/18 08/15/18 [Vitamin D3] DULoxetine HCL [Cymbalta] 60 mg PO DAILY 08/15/18 08/15/18 Furosemide [Lasix] 40 mg PO DAILY 08/15/18 08/15/18 Furosemide [Lasix] 80 mg PO HS 08/15/18 08/15/18 Gabapentin [Neurontin] 300 mg PO BID 08/15/18 08/15/18 Mirtazapine [Remeron] 15 mg PO HS 08/15/18 08/15/18 Potassium Chloride ER [K-Dur 20] 20 meq PO DAILY 08/15/18 08/15/18 predniSONE 10 mg PO DIRECTED 08/15/18 08/15/18 tiZANidine HCL [Zanaflex] 4 mg PO BID 08/15/18 08/15/18 Previous Rx's Medication Instructions Recorded Rivaroxaban [Xarelto] 20 mg PO DAILY 90 Days #90 tab 11/18/17 Allergies Allergy/AdvReac Type Severity Reaction Status Date / Time buspirone [From BuSpar] Allergy Unknown Verified 08/15/18 19:16 haloperidol [From Haldol] Allergy Swelling Verified 08/15/18 19:16 iodine Allergy Swelling Verified 08/15/18 19:16 Penicillins Allergy Swelling Verified 08/15/18 19:16 prochlorperazine Allergy Rash/Hives Verified 08/15/18 19:16 Sulfa (Sulfonamide Allergy Rash/Hives Verified 08/15/18 19:16 Antibiotics) Tetanus Vaccines and Toxoid Allergy Rash/Hives Verified 08/15/18 19:16 [Tetanus Vaccines & Toxoid] trifluoperazine HCl Allergy Unknown Verified 08/15/18 19:16 [From Stelazine] hydroxyzine [From Vistaril] AdvReac Rash/Hives Verified 08/15/18 19:16 Review of Systems ROS Statement: Those systems with pertinent positive or pertinent negative responses have been documented in the HPI. ROS Other: All systems not noted in ROS Statement are negative. Past Medical History Past Medical History: Asthma, Heart Failure, COPD, Diabetes Mellitus, GERD/ Reflux, Hyperlipidemia, Hypertension, Musculoskeletal Disorder, Osteoarthritis ( OA), Pneumonia, Pulmonary Embolus (PE), Thyroid Disorder Additional Past Medical History / Comment(s): Pt recently admitted to [facility] on with exacerbation COPD, asthma and possible pneumonia. Other hx: NIDDM type II but pt states no longer has to monitor blood sugars at home, chronic low back pain, herniated discs, RLS, leg edema, recent L leg cellulitis, anemia , gout bilateral feet, hypothyroid, UTIs History of Any Multi-Drug Resistant Organisms: None Reported Past Surgical History: Bariatric Surgery, Heart Catheterization, Hernia Repair, Orthopedic Surgery Additional Past Surgical History / Comment(s): Total Right knee replacement, 3 abdominal hernia repairs, left hip repair d/t fracture, gastric bypass/revision , colonoscopy. Past Anesthesia/Blood Transfusion Reactions: No Reported Reaction Past Psychological History: Anxiety, Bipolar, Depression, Panic Disorder, PTSD Smoking Status: Never smoker Past Alcohol Use History: None Reported Past Drug Use History: None Reported - Past Family History Mother Family Medical History: Cancer Additional Family Medical History / Comment(s): lung cancer Father Family Medical History: Diabetes Mellitus Additional Family Medical History / Comment(s): "my dad from a blood clot that traveled from his leg to his lung and also caused a heart attack." Brother(s) Family Medical History: Diabetes Mellitus Sister(s) Additional Family Medical History / Comment(s): "her heart races too fast" General Exam - General Exam Comments Initial Comments: General: The patient is awake and alert, in no distress, and does not appear acutely ill. Eye: Pupils are equal, round and reactive to light, extra-ocular movements are intact. No nystagmus. There is normal conjunctiva bilaterally. No signs of icterus. Ears, nose, mouth and throat: There are moist mucous membranes and no oral lesions. Cardiovascular: There is a regular rate and rhythm. No murmur, rub or gallop is appreciated. Respiratory: Lungs are clear to auscultation, respirations are non-labored, breath sounds are equal. No wheezes, stridor, rales, or rhonchi. Musculoskeletal: Normal ROM. Strength 5/5. Sensation intact. Pedal Pulses equal bilaterally 2+. Neurological: A&O x 3. CN II-XII intact, There are no obvious motor or sensory deficits. Coordination appears grossly intact. Speech is normal. Skin: Skin is warm and dry and no rashes or lesions are noted. Psychiatric: Cooperative Limitations: physical limitation Course Vital Signs 08/15/18 18:34 Temperature 97.9 F Pulse Rate 80 Respiratory 18 Rate Blood Pressure 148/70 O2 Sat by Pulse 97 Oximetry Medical Decision Making - Medical Decision Making Patient's x-ray of the left hip was reviewed and shows no acute fracture dislocation. There is some lucency around the transverse screw in the femoral neck that Suggests some degree of movement. These results were discussed with the patient. She is advised follow-up with orthopedic doctor. She's been up and playing here in the emergency room. At this time patient will be discharged home. Advised return if any symptoms increase or worsen or for any other concerns. Disposition Clinical Impression: Fall, Left hip pain Disposition: HOME SELF-CARE Condition: Good Instructions: Hip Pain (ED) Additional Instructions: Please follow-up with orthopedic/family doctor in the next 2 days of symptoms have not improved. Please return to emergency room if the symptoms increase or worsen or for any other concerns. Is patient prescribed a controlled substance at d/c from ED?: No Referrals: [facility] [Primary Care Provider] - 1-2 days Derik Momin MD [STAFF PHYSICIAN] - 1-2 days Time of Disposition: 19:48
--- NOTE | 2018-08-15 19:22 | XR ---
EXAMINATION TYPE: XR Hip LT and AP Pelvis DATE OF EXAM: 08/15/2018 COMPARISON: NONE HISTORY: Hip pain TECHNIQUE: A single AP view of the pelvis is obtained. Two views of the left hip are obtained. FINDINGS: The pelvic ring is intact. There is a left hip nailing noted. I see no acute fracture. Sacr oiliac joints appear intact. Proximal right femur and hip joint appear intact. There is lucency around the transverse screw. IMPRESSION: Old left hip nailing. No acute fracture seen. There is some lucency around the transverse screw in th e femoral neck that suggests some degree of movement.
[2018-08-15 20:15] VITALS: BP 167/80; PULSE 97; TEMP 98.2
== END 2018-08-15 20:14 | disposition home or self-care (01) ==
LOC: EC 18:23
DX: M25.552 Pain in left hip (principal); J44.9 Chronic obstructive pulmonary disease, unspecified; I11.0 Hypertensive heart disease with heart failure; I50.9 Heart failure, unspecified; E78.5 Hyperlipidemia, unspecified; E11.9 Type 2 diabetes mellitus without complications; K21.9 Gastro-esophageal reflux disease without esophagitis; M19.90 Unspecified osteoarthritis, unspecified site; E03.9 Hypothyroidism, unspecified; G25.81 Restless legs syndrome; M10.072 Idiopathic gout, left ankle and foot; M10.071 Idiopathic gout, right ankle and foot; F31.9 Bipolar disorder, unspecified; F41.0 Panic disorder [episodic paroxysmal anxiety]; F43.10 Post-traumatic stress disorder, unspecified; Z79.52 Long term (current) use of systemic steroids; Z79.899 Other long term (current) drug therapy; Z88.0 Allergy status to penicillin; Z88.2 Allergy status to sulfonamides; Z88.7 Allergy status to serum and vaccine; Z88.8 Allergy status to other drugs, medicaments and biological substances; Z95.818 Presence of other cardiac implants and grafts; Z96.651 Presence of right artificial knee joint
CPT/HCPCS: 73502; 99283

== ENCOUNTER 2018-08-20 14:26 | Emergency (ER) | payer MEDICARE, OTHER ==
[2018-08-20 14:48] VITALS: BP 144/66; PULSE 89; RESP 16; TEMP 98.3
--- NOTE | 2018-08-20 15:44 | ED ---
General Adult HPI - General Chief complaint: Psychiatric Symptoms Stated complaint: "needs to be evaluated", mental health Time Seen by Provider: 08/20/18 14:52 Source: patient, RN notes reviewed Mode of arrival: wheelchair Limitations: no limitations - History of Present Illness Initial comments: Patient is a pleasant 58-year-old female presenting to the emergency Department with complaints of depression and suicidal thoughts. Patient does have history of similar symptoms previously. Patient has thoughts of overdosing on all his medications. Patient has no new physical complaints. No homicidal thoughts. No alcohol or street drug use. No hallucinations. - Related Data Home Medications Medication Instructions Recorded Confirmed Mirabegron [Myrbetriq] 50 mg PO DAILY 05/23/17 08/15/18 Atorvastatin [Lipitor] 10 mg PO HS 06/07/17 08/15/18 Carvedilol [Coreg] 25 mg PO BID 06/07/17 08/15/18 Loratadine [Claritin] 10 mg PO DAILY 06/07/17 08/15/18 Multivitamins, Thera [Multivitamin 1 tab PO DAILY 06/07/17 08/15/18 (formulary)] Omeprazole 20 mg PO DAILY 06/07/17 08/15/18 Levothyroxine Sodium [Synthroid] 137 mcg PO DAILY 10/20/17 08/15/18 hydrALAZINE HCL [Apresoline] 50 mg PO BID 10/20/17 08/15/18 rOPINIRole HCL 4 mg PO BID 03/31/18 08/15/18 Metolazone [Zaroxolyn] 2.5 mg PO DAILY 06/06/18 08/15/18 Albuterol Inhaler [Ventolin Hfa 2 puff INHALATION RT-Q6H PRN 06/10/18 08/15/18 Inhaler] Montelukast [Singulair] 10 mg PO HS 06/28/18 08/15/18 risperiDONE MICROSPHERES 25 mg IM Q14D 07/21/18 08/20/18 [RisperDAL CONSTA] Cholecalciferol (Vitamin D3) 10,000 unit PO DAILY 07/23/18 08/15/18 [Vitamin D3] DULoxetine HCL [Cymbalta] 60 mg PO DAILY 08/15/18 08/20/18 Furosemide [Lasix] 40 mg PO DAILY 08/15/18 08/15/18 Furosemide [Lasix] 80 mg PO HS 08/15/18 08/15/18 Gabapentin [Neurontin] 300 mg PO BID 08/15/18 08/20/18 Mirtazapine [Remeron] 15 mg PO HS 08/15/18 08/20/18 Potassium Chloride ER [K-Dur 20] 20 meq PO DAILY 08/15/18 08/15/18 predniSONE 10 mg PO DIRECTED 08/15/18 08/15/18 tiZANidine HCL [Zanaflex] 4 mg PO BID 08/15/18 08/15/18 clonazePAM 0.5 mg PO DAILY PRN 08/20/18 08/20/18 Previous Rx's Medication Instructions Recorded Rivaroxaban [Xarelto] 20 mg PO DAILY 90 Days #90 tab 11/18/17 Allergies Allergy/AdvReac Type Severity Reaction Status Date / Time buspirone [From BuSpar] Allergy Unknown Verified 08/20/18 15:30 haloperidol [From Haldol] Allergy Swelling Verified 08/20/18 15:30 iodine Allergy Swelling Verified 08/20/18 15:30 Penicillins Allergy Swelling Verified 08/20/18 15:30 prochlorperazine Allergy Rash/Hives Verified 08/20/18 15:30 Sulfa (Sulfonamide Allergy Rash/Hives Verified 08/20/18 15:30 Antibiotics) Tetanus Vaccines and Toxoid Allergy Rash/Hives Verified 08/20/18 15:30 [Tetanus Vaccines & Toxoid] trifluoperazine HCl Allergy Unknown Verified 08/20/18 15:30 [From Stelazine] hydroxyzine [From Vistaril] AdvReac Rash/Hives Verified 08/20/18 15:30 Review of Systems ROS Statement: Those systems with pertinent positive or pertinent negative responses have been documented in the HPI. ROS Other: All systems not noted in ROS Statement are negative. Constitutional: Denies: fever Eyes: Denies: eye pain ENT: Denies: throat pain Respiratory: Denies: cough Cardiovascular: Denies: chest pain Endocrine: Denies: fatigue Gastrointestinal: Denies: abdominal pain Genitourinary: Denies: dysuria Musculoskeletal: Denies: back pain Skin: Denies: rash Neurological: Denies: weakness Psychiatric: Reports: depression, suicidal thoughts Past Medical History Past Medical History: Asthma, Heart Failure, COPD, Diabetes Mellitus, GERD/ Reflux, Hyperlipidemia, Hypertension, Musculoskeletal Disorder, Osteoarthritis ( OA), Pneumonia, Pulmonary Embolus (PE), Thyroid Disorder Additional Past Medical History / Comment(s): Pt recently admitted to [facility] on with exacerbation COPD, asthma and possible pneumonia. Other hx: NIDDM type II but pt states no longer has to monitor blood sugars at home, chronic low back pain, herniated discs, RLS, leg edema, recent L leg cellulitis, anemia , gout bilateral feet, hypothyroid, UTIs History of Any Multi-Drug Resistant Organisms: None Reported Past Surgical History: Bariatric Surgery, Heart Catheterization, Hernia Repair, Orthopedic Surgery Additional Past Surgical History / Comment(s): Total Right knee replacement, 3 abdominal hernia repairs, left hip repair d/t fracture, gastric bypass/revision , colonoscopy. Past Anesthesia/Blood Transfusion Reactions: No Reported Reaction Past Psychological History: Anxiety, Bipolar, Depression, Panic Disorder, PTSD Smoking Status: Never smoker Past Alcohol Use History: None Reported Past Drug Use History: None Reported - Past Family History Mother Family Medical History: Cancer Additional Family Medical History / Comment(s): lung cancer Father Family Medical History: Diabetes Mellitus Additional Family Medical History / Comment(s): "my dad from a blood clot that traveled from his leg to his lung and also caused a heart attack." Brother(s) Family Medical History: Diabetes Mellitus Sister(s) Additional Family Medical History / Comment(s): "her heart races too fast" General Exam Limitations: no limitations General appearance: alert, in no apparent distress, obese Head exam: Present: atraumatic Eye exam: Present: normal appearance Neck exam: Present: normal inspection Respiratory exam: Present: normal lung sounds bilaterally Cardiovascular Exam: Present: regular rate, normal rhythm GI/Abdominal exam: Present: soft. Absent: tenderness Extremities exam: Present: normal inspection Neurological exam: Present: alert Psychiatric exam: Present: depressed Skin exam: Present: normal color Course Vital Signs 08/20/18 14:46 Temperature 98.3 F Pulse Rate 89 Respiratory 16 Rate Blood Pressure 144/66 O2 Sat by Pulse 100 Oximetry Medical Decision Making - Medical Decision Making Patient was seen by mental health services who recommends discharge and follow- up. Patient does request discharge and denies suicidal ideation. Patient contracts for safety. Disposition Clinical Impression: Depression Disposition: HOME SELF-CARE Condition: Stable Instructions: Depression (ED) Additional Instructions: Please follow-up with mental health services as directed. Please also follow- up to primary care physician in the next couple days for recheck. Return for increased depression, suicidal thoughts, worsening symptoms or other concerns. Is patient prescribed a controlled substance at d/c from ED?: No Referrals: [facility] [Primary Care Provider] - 1-2 days Time of Disposition: 16:40
[2018-08-20 16:43] LABS: Amphetamine Screen,Urine Not Detected (NotDetected); Barbiturate Screen,Urine Not Detected (NotDetected); Benzodiazepines Screen,Urine Detected (NotDetected); Cocaine Screen,Urine Not Detected (NotDetected); Methadone Screen, Urine Not Detected (NotDetected); Opiate Screen,Urine Not Detected (NotDetected); Oxycodone Screen, Urine Not Detected (NotDetected); Phencyclidine Screen,Urine Not Detected (NotDetected); Tricyclic Antidepressant,Urine Not Detected (NotDetected); Urn Cannabinoid Scrn Not Detected (NotDetected)
== END 2018-08-20 16:50 | disposition home or self-care (01) ==
LOC: EC 14:26
DX: F32.9 Major depressive disorder, single episode, unspecified (principal); J45.909 Unspecified asthma, uncomplicated; I11.0 Hypertensive heart disease with heart failure; E11.9 Type 2 diabetes mellitus without complications; K21.9 Gastro-esophageal reflux disease without esophagitis; M19.90 Unspecified osteoarthritis, unspecified site; E78.5 Hyperlipidemia, unspecified; I50.9 Heart failure, unspecified; E03.9 Hypothyroidism, unspecified; F41.0 Panic disorder [episodic paroxysmal anxiety]; Z79.02 Long term (current) use of antithrombotics/antiplatelets; Z79.51 Long term (current) use of inhaled steroids; Z79.899 Other long term (current) drug therapy; Z88.0 Allergy status to penicillin; Z88.2 Allergy status to sulfonamides; Z88.5 Allergy status to narcotic agent; Z91.048 Other nonmedicinal substance allergy status; Z88.7 Allergy status to serum and vaccine; Z88.8 Allergy status to other drugs, medicaments and biological substances; Z95.5 Presence of coronary angioplasty implant and graft; Z98.84 Bariatric surgery status; Z96.651 Presence of right artificial knee joint; Z86.711 Personal history of pulmonary embolism
CPT/HCPCS: 80306; 99284

== ENCOUNTER 2018-08-26 16:45 | Emergency (ER) | payer MEDICARE, OTHER ==
--- NOTE | 2018-08-26 17:27 | ED ---
General Adult HPI - General Chief complaint: Anxiety Stated complaint: Mental health Source: patient, EMS Mode of arrival: EMS Limitations: no limitations - History of Present Illness Initial comments: Dictation was produced using [employer] dictation software. please excuse any grammatical, word or spelling errors. Chief Complaint: 58-year-old female with suicidal statement. History of Present Illness: Patient is 58-year-old female presents with EMS for suicidal statement. Patient states she was really frustrated and yelled over the phone to her guardian that she does get occasional himself. Patient states that she reported this after being very frustrated. She does not report being suicidal patient is well-known to emergency department for multiple visitations. Patient is apologetic for her statement. The ROS documented in this emergency department record has been reviewed and confirmed by me. Those systems with pertinent positive or negative responses have been documented in the HPI. All other systems are other negative and/or noncontributory. - Related Data Home Medications Medication Instructions Recorded Confirmed Mirabegron [Myrbetriq] 50 mg PO DAILY 05/23/17 08/15/18 Atorvastatin [Lipitor] 10 mg PO HS 06/07/17 08/15/18 Carvedilol [Coreg] 25 mg PO BID 06/07/17 08/15/18 Loratadine [Claritin] 10 mg PO DAILY 06/07/17 08/15/18 Multivitamins, Thera [Multivitamin 1 tab PO DAILY 06/07/17 08/15/18 (formulary)] Omeprazole 20 mg PO DAILY 06/07/17 08/15/18 Levothyroxine Sodium [Synthroid] 137 mcg PO DAILY 10/20/17 08/15/18 hydrALAZINE HCL [Apresoline] 50 mg PO BID 10/20/17 08/15/18 rOPINIRole HCL 4 mg PO BID 03/31/18 08/15/18 Metolazone [Zaroxolyn] 2.5 mg PO DAILY 06/06/18 08/15/18 Albuterol Inhaler [Ventolin Hfa 2 puff INHALATION RT-Q6H PRN 06/10/18 08/15/18 Inhaler] Montelukast [Singulair] 10 mg PO HS 06/28/18 08/15/18 risperiDONE MICROSPHERES 25 mg IM Q14D 07/21/18 08/20/18 [RisperDAL CONSTA] Cholecalciferol (Vitamin D3) 10,000 unit PO DAILY 07/23/18 08/15/18 [Vitamin D3] DULoxetine HCL [Cymbalta] 60 mg PO DAILY 08/15/18 08/20/18 Furosemide [Lasix] 40 mg PO DAILY 08/15/18 08/15/18 Furosemide [Lasix] 80 mg PO HS 08/15/18 08/15/18 Gabapentin [Neurontin] 300 mg PO BID 08/15/18 08/20/18 Mirtazapine [Remeron] 15 mg PO HS 08/15/18 08/20/18 Potassium Chloride ER [K-Dur 20] 20 meq PO DAILY 08/15/18 08/15/18 predniSONE 10 mg PO DIRECTED 08/15/18 08/15/18 tiZANidine HCL [Zanaflex] 4 mg PO BID 08/15/18 08/15/18 clonazePAM 0.5 mg PO DAILY PRN 08/20/18 08/20/18 Previous Rx's Medication Instructions Recorded Rivaroxaban [Xarelto] 20 mg PO DAILY 90 Days #90 tab 11/18/17 Allergies Allergy/AdvReac Type Severity Reaction Status Date / Time buspirone [From BuSpar] Allergy Unknown Verified 08/26/18 16:59 haloperidol [From Haldol] Allergy Swelling Verified 08/26/18 16:59 iodine Allergy Swelling Verified 08/26/18 16:59 Penicillins Allergy Swelling Verified 08/26/18 16:59 prochlorperazine Allergy Rash/Hives Verified 08/26/18 16:59 Sulfa (Sulfonamide Allergy Rash/Hives Verified 08/26/18 16:59 Antibiotics) Tetanus Vaccines and Toxoid Allergy Rash/Hives Verified 08/26/18 16:59 [Tetanus Vaccines & Toxoid] trifluoperazine HCl Allergy Unknown Verified 08/26/18 16:59 [From Stelazine] hydroxyzine [From Vistaril] AdvReac Rash/Hives Verified 08/26/18 16:59 Review of Systems ROS Statement: Those systems with pertinent positive or pertinent negative responses have been documented in the HPI. ROS Other: All systems not noted in ROS Statement are negative. Past Medical History Past Medical History: Asthma, Heart Failure, COPD, Diabetes Mellitus, GERD/ Reflux, Hyperlipidemia, Hypertension, Musculoskeletal Disorder, Osteoarthritis ( OA), Pneumonia, Pulmonary Embolus (PE), Thyroid Disorder Additional Past Medical History / Comment(s): Pt recently admitted to [facility] on with exacerbation COPD, asthma and possible pneumonia. Other hx: NIDDM type II but pt states no longer has to monitor blood sugars at home, chronic low back pain, herniated discs, RLS, leg edema, recent L leg cellulitis, anemia , gout bilateral feet, hypothyroid, UTIs History of Any Multi-Drug Resistant Organisms: None Reported Past Surgical History: Bariatric Surgery, Heart Catheterization, Hernia Repair, Orthopedic Surgery Additional Past Surgical History / Comment(s): Total Right knee replacement, 3 abdominal hernia repairs, left hip repair d/t fracture, gastric bypass/revision , colonoscopy. Past Anesthesia/Blood Transfusion Reactions: No Reported Reaction Past Psychological History: Anxiety, Bipolar, Depression, Panic Disorder, PTSD Smoking Status: Never smoker Past Alcohol Use History: None Reported Past Drug Use History: None Reported - Past Family History Mother Family Medical History: Cancer Additional Family Medical History / Comment(s): lung cancer Father Family Medical History: Diabetes Mellitus Additional Family Medical History / Comment(s): "my dad from a blood clot that traveled from his leg to his lung and also caused a heart attack." Brother(s) Family Medical History: Diabetes Mellitus Sister(s) Additional Family Medical History / Comment(s): "her heart races too fast" General Exam - General Exam Comments Initial Comments: PHYSICAL EXAM: General Impression: Alert and oriented x3, not in acute distress HEENT: Normocephalic atraumatic, extra-ocular movements intact, pupils equal and reactive to light bilaterally, mucous membranes moist. Cardiovascular: Heart regular rate and rhythm, S1&S2 audible, no murmurs, rubs or gallops Chest: Lungs clear to auscultation bilaterally, no rhonchi, no wheeze, no rales Abdomen: Bowel sounds present, abdomen soft, non-tender, non-distended, no organomegaly Musculoskeletal: Pulses present and equal in all extremities, no peripheral edema Motor: Power 5/5 bilaterally, no focal deficits noted Neurological: CN II-XII grossly intact, no focal motor or sensory deficits noted Skin: Intact with no visualized rashes Psych: Normal affect and mood Limitations: no limitations Course Vital Signs 08/26/18 16:47 Temperature 97.5 F L Pulse Rate 100 Respiratory 20 Rate Blood Pressure 157/70 O2 Sat by Pulse 96 Oximetry Medical Decision Making - Medical Decision Making ED course: 58-year-old female who was brought in by EMS for suicidal ideation as upon arrival are within acceptable limits. Patient reports that she yelled this out of frustration. She does not feel suicidal at this time. She is very apologetic for which she said like to be discharge. Patient is well-known to emergency department. At this point I do not believe patient is to be evaluated by EPS. Chart review shows that patient is here in emergency department approximately 70 times over the last year. Patient be discharged. Disposition Clinical Impression: Psychiatric complaint Disposition: HOME SELF-CARE Instructions: Generalized Anxiety Disorder (ED) Is patient prescribed a controlled substance at d/c from ED?: No Referrals: None,Stated [Primary Care Provider] - 1-2 days Time of Disposition: 17:26
[2018-08-26 18:07] VITALS: BP 160/69; PULSE 90; RESP 18; TEMP 97.7
== END 2018-08-26 17:46 | disposition home or self-care (01) ==
LOC: EC 16:45
DX: Z00.8 Encounter for other general examination (principal); J44.9 Chronic obstructive pulmonary disease, unspecified; I11.0 Hypertensive heart disease with heart failure; I50.9 Heart failure, unspecified; E78.5 Hyperlipidemia, unspecified; E11.9 Type 2 diabetes mellitus without complications; M19.90 Unspecified osteoarthritis, unspecified site; E03.9 Hypothyroidism, unspecified; G25.81 Restless legs syndrome; D64.9 Anemia, unspecified; F41.0 Panic disorder [episodic paroxysmal anxiety]; F31.9 Bipolar disorder, unspecified; F43.10 Post-traumatic stress disorder, unspecified; K21.9 Gastro-esophageal reflux disease without esophagitis; Z86.711 Personal history of pulmonary embolism; Z79.52 Long term (current) use of systemic steroids; Z79.899 Other long term (current) drug therapy; Z88.0 Allergy status to penicillin; Z88.2 Allergy status to sulfonamides; Z88.7 Allergy status to serum and vaccine; Z88.8 Allergy status to other drugs, medicaments and biological substances; Z95.818 Presence of other cardiac implants and grafts; Z96.651 Presence of right artificial knee joint
CPT/HCPCS: 99283

== ENCOUNTER 2018-08-31 18:36 | Emergency (ER) | payer MEDICARE, OTHER ==
[2018-08-31 18:43] VITALS: PULSE 94; RESP 18; TEMP 97.2
--- NOTE | 2018-08-31 19:19 | ED ---
SOB HPI - General Chief Complaint: Shortness of Breath Stated Complaint: Anxiety Time Seen by Provider: 08/31/18 18:40 Source: patient, RN notes reviewed Mode of arrival: ambulatory Limitations: no limitations - History of Present Illness Initial Comments: 58-year-old female sent emergency Department chief complaint of shortness of breath. Patient states she became very anxious earlier today and felt short of breath. Symptoms have resolved prior to arrival. Patient denies any chest pain , headache, dizziness, blurred vision, focal weakness, fever, chills no URI symptoms. Patient states that she took her Klonopin which helped her symptoms. Patient has been recently in the emergency room for psychiatric evaluation and states that this is related. She denies any chest pain or current shortness of breath. - Related Data Home Medications Medication Instructions Recorded Confirmed Mirabegron [Myrbetriq] 50 mg PO DAILY 05/23/17 08/15/18 Atorvastatin [Lipitor] 10 mg PO HS 06/07/17 08/15/18 Carvedilol [Coreg] 25 mg PO BID 06/07/17 08/15/18 Loratadine [Claritin] 10 mg PO DAILY 06/07/17 08/15/18 Multivitamins, Thera [Multivitamin 1 tab PO DAILY 06/07/17 08/15/18 (formulary)] Omeprazole 20 mg PO DAILY 06/07/17 08/15/18 Levothyroxine Sodium [Synthroid] 137 mcg PO DAILY 10/20/17 08/15/18 hydrALAZINE HCL [Apresoline] 50 mg PO BID 10/20/17 08/15/18 rOPINIRole HCL 4 mg PO BID 03/31/18 08/15/18 Metolazone [Zaroxolyn] 2.5 mg PO DAILY 06/06/18 08/15/18 Albuterol Inhaler [Ventolin Hfa 2 puff INHALATION RT-Q6H PRN 06/10/18 08/15/18 Inhaler] Montelukast [Singulair] 10 mg PO HS 06/28/18 08/15/18 risperiDONE MICROSPHERES 25 mg IM Q14D 07/21/18 08/20/18 [RisperDAL CONSTA] Cholecalciferol (Vitamin D3) 10,000 unit PO DAILY 07/23/18 08/15/18 [Vitamin D3] DULoxetine HCL [Cymbalta] 60 mg PO DAILY 08/15/18 08/20/18 Furosemide [Lasix] 40 mg PO DAILY 08/15/18 08/15/18 Furosemide [Lasix] 80 mg PO HS 08/15/18 08/15/18 Gabapentin [Neurontin] 300 mg PO BID 08/15/18 08/20/18 Mirtazapine [Remeron] 15 mg PO HS 08/15/18 08/20/18 Potassium Chloride ER [K-Dur 20] 20 meq PO DAILY 08/15/18 08/15/18 predniSONE 10 mg PO DIRECTED 08/15/18 08/15/18 tiZANidine HCL [Zanaflex] 4 mg PO BID 08/15/18 08/15/18 clonazePAM 0.5 mg PO DAILY PRN 08/20/18 08/20/18 Previous Rx's Medication Instructions Recorded Rivaroxaban [Xarelto] 20 mg PO DAILY 90 Days #90 tab 11/18/17 Allergies Allergy/AdvReac Type Severity Reaction Status Date / Time buspirone [From BuSpar] Allergy Unknown Verified 08/26/18 16:59 haloperidol [From Haldol] Allergy Swelling Verified 08/26/18 16:59 iodine Allergy Swelling Verified 08/26/18 16:59 Penicillins Allergy Swelling Verified 08/26/18 16:59 prochlorperazine Allergy Rash/Hives Verified 08/26/18 16:59 Sulfa (Sulfonamide Allergy Rash/Hives Verified 08/26/18 16:59 Antibiotics) Tetanus Vaccines and Toxoid Allergy Rash/Hives Verified 08/26/18 16:59 [Tetanus Vaccines & Toxoid] trifluoperazine HCl Allergy Unknown Verified 08/26/18 16:59 [From Stelazine] hydroxyzine [From Vistaril] AdvReac Rash/Hives Verified 08/26/18 16:59 Review of Systems ROS Statement: Those systems with pertinent positive or pertinent negative responses have been documented in the HPI. ROS Other: All systems not noted in ROS Statement are negative. Past Medical History Past Medical History: Asthma, Heart Failure, COPD, Diabetes Mellitus, GERD/ Reflux, Hyperlipidemia, Hypertension, Musculoskeletal Disorder, Osteoarthritis ( OA), Pneumonia, Pulmonary Embolus (PE), Thyroid Disorder Additional Past Medical History / Comment(s): Pt recently admitted to [facility] on with exacerbation COPD, asthma and possible pneumonia. Other hx: NIDDM type II but pt states no longer has to monitor blood sugars at home, chronic low back pain, herniated discs, RLS, leg edema, recent L leg cellulitis, anemia , gout bilateral feet, hypothyroid, UTIs History of Any Multi-Drug Resistant Organisms: None Reported Past Surgical History: Bariatric Surgery, Heart Catheterization, Hernia Repair, Orthopedic Surgery Additional Past Surgical History / Comment(s): Total Right knee replacement, 3 abdominal hernia repairs, left hip repair d/t fracture, gastric bypass/revision , colonoscopy. Past Anesthesia/Blood Transfusion Reactions: No Reported Reaction Past Psychological History: Anxiety, Bipolar, Depression, Panic Disorder, PTSD Smoking Status: Never smoker Past Alcohol Use History: None Reported Past Drug Use History: None Reported - Past Family History Mother Family Medical History: Cancer Additional Family Medical History / Comment(s): lung cancer Father Family Medical History: Diabetes Mellitus Additional Family Medical History / Comment(s): "my dad from a blood clot that traveled from his leg to his lung and also caused a heart attack." Brother(s) Family Medical History: Diabetes Mellitus Sister(s) Additional Family Medical History / Comment(s): "her heart races too fast" General Exam Limitations: no limitations General appearance: alert, in no apparent distress, obese Head exam: Present: atraumatic, normocephalic, normal inspection ENT exam: Present: normal exam, mucous membranes moist Neck exam: Present: normal inspection. Absent: tenderness, meningismus, lymphadenopathy Respiratory exam: Present: normal lung sounds bilaterally, other (Pulse ox 100 on exam). Absent: respiratory distress, wheezes, rales, rhonchi, stridor Cardiovascular Exam: Present: regular rate, normal rhythm, normal heart sounds. Absent: systolic murmur, diastolic murmur, rubs, gallop, clicks GI/Abdominal exam: Present: soft, normal bowel sounds. Absent: distended, tenderness, guarding, rebound, rigid Course Vital Signs 08/31/18 18:39 Temperature 97.2 F L Pulse Rate 94 Respiratory 18 Rate Blood Pressure 180/93 O2 Sat by Pulse 96 Oximetry Medical Decision Making - Medical Decision Making 58-year-old female presented for shortness of breath and anxiety. Patient symptoms resolved prior arrival. Patient took Klonopin which resolved her symptoms. I did recommend that we have an x-ray as she has a history of infection though she refuses x-ray. She states that she is symptom-free and would like to be discharged. Disposition Clinical Impression: Anxiety Disposition: HOME SELF-CARE Condition: Stable Instructions: Generalized Anxiety Disorder (ED) Additional Instructions: Please return to the Emergency Department if symptoms worsen or any other concerns. Is patient prescribed a controlled substance at d/c from ED?: No Referrals: [facility] [Primary Care Provider] - 1-2 days Time of Disposition: 19:19
[2018-08-31 19:39] VITALS: BP 134/63
== END 2018-08-31 19:37 | disposition home or self-care (01) ==
LOC: EC 18:36
DX: F41.9 Anxiety disorder, unspecified (principal); J44.9 Chronic obstructive pulmonary disease, unspecified; I11.0 Hypertensive heart disease with heart failure; I50.9 Heart failure, unspecified; K21.9 Gastro-esophageal reflux disease without esophagitis; E78.5 Hyperlipidemia, unspecified; M19.90 Unspecified osteoarthritis, unspecified site; E03.9 Hypothyroidism, unspecified; E11.9 Type 2 diabetes mellitus without complications; F41.0 Panic disorder [episodic paroxysmal anxiety]; F31.9 Bipolar disorder, unspecified; Z79.02 Long term (current) use of antithrombotics/antiplatelets; Z79.890 Hormone replacement therapy; Z79.899 Other long term (current) drug therapy; Z88.0 Allergy status to penicillin; Z88.2 Allergy status to sulfonamides; Z88.8 Allergy status to other drugs, medicaments and biological substances; Z91.048 Other nonmedicinal substance allergy status; Z88.7 Allergy status to serum and vaccine; Z95.5 Presence of coronary angioplasty implant and graft; Z98.84 Bariatric surgery status; Z96.651 Presence of right artificial knee joint; Z86.711 Personal history of pulmonary embolism
CPT/HCPCS: 99284

== ENCOUNTER 2018-09-18 16:25 | Emergency (ER) | payer MEDICARE, OTHER ==
[2018-09-18 17:33] LABS: Anisocytosis Slight; HCT 27.1 % (34.0-46.0); HGB 8.3 gm/dL (11.4-16.0); Hypochromasia Marked; MCH 22.9 pg (25.0-35.0); MCHC 30.5 g/dL (31.0-37.0); Mean Platelet Volume 6.8; Microcytosis Slight; Platelet Count 349 k/uL (150-450); RBC 3.61 m/uL (3.80-5.40); RDW 17.1 % (11.5-15.5); WBC 7.2 k/uL (3.8-10.6)
[2018-09-18 17:42] LABS: ALT 23 U/L (9-52); AST 26 U/L (14-36); Alkaline Phosphatase 89 U/L (38-126); Anion Gap 11 mmol/L; Blood Urea Nitrogen 32 mg/dL (7-17); Calcium 9.5 mg/dL (8.4-10.2); Carbon Dioxide 26 mmol/L (22-30); Chloride 103 mmol/L (98-107); Glucose 100 mg/dL (74-99); Magnesium 2.1 mg/dL (1.6-2.3); Potassium 4.8 mmol/L (3.5-5.1); Sodium 140 mmol/L (137-145); Total Bilirubin 0.3 mg/dL (0.2-1.3); Total Protein 6.8 g/dL (6.3-8.2)
[2018-09-18 17:43] LABS: INR 0.9 (<1.2); Partial Thromboplastin Time 26.5 sec (22.0-30.0)
--- NOTE | 2018-09-18 17:49 | XR ---
EXAMINATION TYPE: XR chest 2V DATE OF EXAM: 09/18/2018 COMPARISON: 08/05/2018 HISTORY: Fluid retention. Chest pain TECHNIQUE: Frontal and lateral views of the chest are obtained. FINDINGS: Heart size is normal. There is coarsening of the lung markings. There is no heart failure. I see no pleural effusion. There are no hilar masses. Exam is limited by patient size. IMPRESSION: No active cardiopulmonary disease. No change.
--- NOTE | 2018-09-18 17:49 | ED ---
General Adult HPI - General Chief complaint: Recheck/Abnormal Lab/Rx Stated complaint: water retention Time Seen by Provider: 09/18/18 16:52 Source: patient, RN notes reviewed Mode of arrival: ambulatory Limitations: no limitations - History of Present Illness Initial comments: 58-year-old female with extensive past medical history including heart failure presents to the emergency department with a chief complaint of weight gain. Patient states she has gained 20 pounds of water weight in the past 2 days. Patient states she is on 80 mg of Lasix every morning and 40 mg of Lasix daily at bedtime. She states she has been taking her medications. Patient admits to maybe a slight increase in shortness of breath but states she is mostly at her baseline. She denies any chest pain. She states she notices more swelling in her bilateral legs. Patient has no other complaints at this time including shortness of breath, chest pain, abdominal pain, nausea or vomiting, headache, or visual changes. - Related Data Home Medications Medication Instructions Recorded Confirmed Mirabegron [Myrbetriq] 50 mg PO DAILY 05/23/17 09/18/18 Atorvastatin [Lipitor] 10 mg PO HS 06/07/17 09/18/18 Carvedilol [Coreg] 25 mg PO BID 06/07/17 09/18/18 Loratadine [Claritin] 10 mg PO DAILY 06/07/17 09/18/18 Multivitamins, Thera [Multivitamin 1 tab PO DAILY 06/07/17 09/18/18 (formulary)] Omeprazole 20 mg PO DAILY 06/07/17 09/18/18 Levothyroxine Sodium [Synthroid] 137 mcg PO DAILY 10/20/17 09/18/18 hydrALAZINE HCL [Apresoline] 50 mg PO BID 10/20/17 09/18/18 rOPINIRole HCL 4 mg PO BID 03/31/18 09/18/18 Metolazone [Zaroxolyn] 2.5 mg PO DAILY 06/06/18 09/18/18 Albuterol Inhaler [Ventolin Hfa 2 puff INHALATION RT-Q6H PRN 06/10/18 09/18/18 Inhaler] Montelukast [Singulair] 10 mg PO HS 06/28/18 09/18/18 risperiDONE MICROSPHERES 25 mg IM Q14D 07/21/18 09/18/18 [RisperDAL CONSTA] Cholecalciferol (Vitamin D3) 10,000 unit PO DAILY 07/23/18 09/18/18 [Vitamin D3] DULoxetine HCL [Cymbalta] 60 mg PO DAILY 08/15/18 09/18/18 Furosemide [Lasix] 40 mg PO DAILY 08/15/18 09/18/18 Furosemide [Lasix] 80 mg PO HS 08/15/18 09/18/18 Gabapentin [Neurontin] 300 mg PO BID 08/15/18 09/18/18 Mirtazapine [Remeron] 15 mg PO HS 08/15/18 09/18/18 Potassium Chloride ER [K-Dur 20] 20 meq PO DAILY 08/15/18 09/18/18 clonazePAM 0.25 mg PO DAILY PRN 08/20/18 09/18/18 Previous Rx's Medication Instructions Recorded Rivaroxaban [Xarelto] 20 mg PO DAILY 90 Days #90 tab 11/18/17 Allergies Allergy/AdvReac Type Severity Reaction Status Date / Time buspirone [From BuSpar] Allergy Unknown Verified 09/18/18 17:38 haloperidol [From Haldol] Allergy Swelling Verified 09/18/18 17:38 iodine Allergy Swelling Verified 09/18/18 17:38 Penicillins Allergy Swelling Verified 09/18/18 17:38 prochlorperazine Allergy Rash/Hives Verified 09/18/18 17:38 Sulfa (Sulfonamide Allergy Rash/Hives Verified 09/18/18 17:38 Antibiotics) Tetanus Vaccines and Toxoid Allergy Rash/Hives Verified 09/18/18 17:38 [Tetanus Vaccines & Toxoid] trifluoperazine HCl Allergy Unknown Verified 09/18/18 17:38 [From Stelazine] hydroxyzine [From Vistaril] AdvReac Rash/Hives Verified 09/18/18 17:38 Review of Systems ROS Statement: Those systems with pertinent positive or pertinent negative responses have been documented in the HPI. ROS Other: All systems not noted in ROS Statement are negative. Past Medical History Past Medical History: Asthma, Heart Failure, COPD, Diabetes Mellitus, GERD/ Reflux, Hyperlipidemia, Hypertension, Musculoskeletal Disorder, Osteoarthritis ( OA), Pneumonia, Pulmonary Embolus (PE), Thyroid Disorder Additional Past Medical History / Comment(s): Pt recently admitted to [facility] on with exacerbation COPD, asthma and possible pneumonia. Other hx: NIDDM type II but pt states no longer has to monitor blood sugars at home, chronic low back pain, herniated discs, RLS, leg edema, recent L leg cellulitis, anemia , gout bilateral feet, hypothyroid, UTIs History of Any Multi-Drug Resistant Organisms: None Reported Past Surgical History: Bariatric Surgery, Heart Catheterization, Hernia Repair, Orthopedic Surgery Additional Past Surgical History / Comment(s): Total Right knee replacement, 3 abdominal hernia repairs, left hip repair d/t fracture, gastric bypass/revision , colonoscopy. Past Anesthesia/Blood Transfusion Reactions: No Reported Reaction Past Psychological History: Anxiety, Bipolar, Depression, Panic Disorder, PTSD Smoking Status: Never smoker Past Alcohol Use History: None Reported Past Drug Use History: None Reported - Past Family History Mother Family Medical History: Cancer Additional Family Medical History / Comment(s): lung cancer Father Family Medical History: Diabetes Mellitus Additional Family Medical History / Comment(s): "my dad from a blood clot that traveled from his leg to his lung and also caused a heart attack." Brother(s) Family Medical History: Diabetes Mellitus Sister(s) Additional Family Medical History / Comment(s): "her heart races too fast" General Exam Limitations: no limitations General appearance: alert, in no apparent distress Head exam: Present: atraumatic, normocephalic, normal inspection Eye exam: Present: normal appearance, PERRL, EOMI. Absent: scleral icterus, conjunctival injection, periorbital swelling ENT exam: Present: normal exam, normal oropharynx, mucous membranes moist, TM's normal bilaterally, normal external ear exam Neck exam: Present: normal inspection. Absent: tenderness, meningismus, lymphadenopathy Respiratory exam: Present: normal lung sounds bilaterally. Absent: respiratory distress, wheezes, rales, rhonchi, stridor, other (limited due to body habitus) Cardiovascular Exam: Present: regular rate, normal rhythm, normal heart sounds. Absent: systolic murmur, diastolic murmur, rubs, gallop, clicks GI/Abdominal exam: Present: soft, normal bowel sounds. Absent: distended, tenderness, guarding, rebound, rigid Neurological exam: Present: alert, oriented X3, CN II-XII intact Psychiatric exam: Present: normal affect, normal mood Course Vital Signs 09/18/18 09/18/18 09/18/18 16:42 18:08 19:47 Temperature 98.3 F 98.2 F Pulse Rate 101 H 93 100 Respiratory 18 20 20 Rate Blood Pressure 172/95 109/41 107/53 O2 Sat by Pulse 99 91 L 97 Oximetry Medical Decision Making - Medical Decision Making 58-year-old female well-known to this emergency department presents for a chief complaint of weight gain. Patient states she gained 20 pounds over the past 2 days. Patient does have a history of heart failure. On exam lungs are clear to auscultation bilaterally. No significant pitting edema noted to bilateral legs. CBC CMP unremarkable. Hemoglobin 8.3 which is around patient's baseline troponin less than 0.012. BNP 152. Chest x-ray shows no active cardiopulmonary disease. At this time I do not see any evidence of acute exacerbation of heart failure. Patient will follow up with primary care in 1-2 days and return if she has any worsening symptoms. - Lab Data Result diagrams: 09/18/18 17:18 09/18/18 17:18 Lab Results 09/18/18 09/18/18 09/18/18 Range/Units 17:18 17:18 17:18 WBC 7.2 (3.8-10.6) k/uL RBC 3.61 L (3.80-5.40) m/uL Hgb 8.3 L (11.4-16.0) gm/dL Hct 27.1 L (34.0-46.0) % MCV 75.0 L (80.0-100.0) fL MCH 22.9 L (25.0-35.0) pg MCHC 30.5 L (31.0-37.0) g/dL RDW 17.1 H (11.5-15.5) % Plt Count 349 (150-450) k/uL Neutrophils % (Manual) 66 % Band Neutrophils % 1 % Lymphocytes % (Manual) 20 % Monocytes % (Manual) 7 % Eosinophils % (Manual) 3 % Basophils % (Manual) 3 % Neutrophils # (Manual) 4.80 (1.3-7.7) k/uL Lymphocytes # (Manual) 1.44 (1.0-4.8) k/uL Monocytes # (Manual) 0.50 (0-1.0) k/uL Eosinophils # (Manual) 0.22 (0-0.7) k/uL Basophils # (Manual) 0.22 H (0-0.2) k/uL Nucleated RBCs 0 (0-0) /100 WBC Toxic Vacuolation Present Hypochromasia Marked Poikilocytosis (manual Present Anisocytosis Slight Microcytosis Slight PT (9.0-12.0) sec INR (<1.2) APTT (22.0-30.0) sec Sodium 140 (137-145) mmol/L Potassium 4.8 (3.5-5.1) mmol/L Chloride 103 (98-107) mmol/L Carbon Dioxide 26 (22-30) mmol/L Anion Gap 11 mmol/L BUN 32 H (7-17) mg/dL Creatinine 0.80 (0.52-1.04) mg/dL Est GFR (CKD-EPI)AfAm >90 (>60 ml/min/1.73 sqM) Est GFR (CKD-EPI)NonAf 82 (>60 ml/min/1.73 sqM) Glucose 100 H (74-99) mg/dL Calcium 9.5 (8.4-10.2) mg/dL Magnesium 2.1 (1.6-2.3) mg/dL Total Bilirubin 0.3 (0.2-1.3) mg/dL AST 26 (14-36) U/L ALT 23 (9-52) U/L Alkaline Phosphatase 89 (38-126) U/L Total Creatine Kinase 47 (30-135) U/L CK-MB (CK-2) 0.9 (0.0-2.4) ng/mL CK-MB (CK-2) Rel Index 1.9 Troponin I <0.012 (0.000-0.034) ng/mL NT-Pro-B Natriuret Pep pg/mL Total Protein 6.8 (6.3-8.2) g/dL Albumin 4.0 (3.5-5.0) g/dL 09/18/18 09/18/18 Range/Units 17:18 17:18 WBC (3.8-10.6) k/uL RBC (3.80-5.40) m/uL Hgb (11.4-16.0) gm/dL Hct (34.0-46.0) % MCV (80.0-100.0) fL MCH (25.0-35.0) pg MCHC (31.0-37.0) g/dL RDW (11.5-15.5) % Plt Count (150-450) k/uL Neutrophils % (Manual) % Band Neutrophils % % Lymphocytes % (Manual) % Monocytes % (Manual) % Eosinophils % (Manual) % Basophils % (Manual) % Neutrophils # (Manual) (1.3-7.7) k/uL Lymphocytes # (Manual) (1.0-4.8) k/uL Monocytes # (Manual) (0-1.0) k/uL Eosinophils # (Manual) (0-0.7) k/uL Basophils # (Manual) (0-0.2) k/uL Nucleated RBCs (0-0) /100 WBC Toxic Vacuolation Hypochromasia Poikilocytosis (manual Anisocytosis Microcytosis PT 10.0 (9.0-12.0) sec INR 0.9 (<1.2) APTT 26.5 (22.0-30.0) sec Sodium (137-145) mmol/L Potassium (3.5-5.1) mmol/L Chloride (98-107) mmol/L Carbon Dioxide (22-30) mmol/L Anion Gap mmol/L BUN (7-17) mg/dL Creatinine (0.52-1.04) mg/dL Est GFR (CKD-EPI)AfAm (>60 ml/min/1.73 sqM) Est GFR (CKD-EPI)NonAf (>60 ml/min/1.73 sqM) Glucose (74-99) mg/dL Calcium (8.4-10.2) mg/dL Magnesium (1.6-2.3) mg/dL Total Bilirubin (0.2-1.3) mg/dL AST (14-36) U/L ALT (9-52) U/L Alkaline Phosphatase (38-126) U/L Total Creatine Kinase (30-135) U/L CK-MB (CK-2) (0.0-2.4) ng/mL CK-MB (CK-2) Rel Index Troponin I (0.000-0.034) ng/mL NT-Pro-B Natriuret Pep 152 pg/mL Total Protein (6.3-8.2) g/dL Albumin (3.5-5.0) g/dL Disposition Clinical Impression: Weight gain Disposition: HOME SELF-CARE Condition: Good Instructions: Heart Failure (ER) Additional Instructions: Please follow up with primary care in 1-2 days. Return to the emergency department if you have any worsening symptoms. Is patient prescribed a controlled substance at d/c from ED?: No Referrals: [facility] [Primary Care Provider] - 1-2 days Time of Disposition: 19:18
[2018-09-18 17:53] LABS: Creatine Kinase 47 U/L (30-135)
[2018-09-18 18:04] LABS: Creatine Kinase MB 0.9 ng/mL (0.0-2.4); Troponin I <0.012 ng/mL (0.000-0.034)
[2018-09-18 18:06] LABS: Band Neutrophils % 1 %; Basophils # (M) 0.22 k/uL (0-0.2); Eosinophils # (M) 0.22 k/uL (0-0.7); Lymphocytes # (M) 1.44 k/uL (1.0-4.8); Neutrophils % (M) 66 %; Nucleated Red Blood Cells 0 /100 WBC (0-0); Total Cells Counted 100
[2018-09-18 18:07] LABS: Poikilocytosis (M) Present; Toxic Vacuolation Present
[2018-09-18 18:09] VITALS: RESP 20
[2018-09-18] MEDS ORDERED: FUROSEMIDE 10 MG/ML 4 ML VIAL IV STA (19:15)
[2018-09-18 19:49] VITALS: BP 107/53; PULSE 100; TEMP 98.2
== END 2018-09-18 20:51 | disposition home or self-care (01) ==
LOC: EC 16:25
DX: R63.5 Abnormal weight gain (principal); R60.0 Localized edema; I11.0 Hypertensive heart disease with heart failure; I50.9 Heart failure, unspecified; J44.9 Chronic obstructive pulmonary disease, unspecified; K21.9 Gastro-esophageal reflux disease without esophagitis; E78.5 Hyperlipidemia, unspecified; M19.90 Unspecified osteoarthritis, unspecified site; G25.81 Restless legs syndrome; E03.9 Hypothyroidism, unspecified; F41.9 Anxiety disorder, unspecified; F32.9 Major depressive disorder, single episode, unspecified; F43.10 Post-traumatic stress disorder, unspecified; Z98.84 Bariatric surgery status; Z95.818 Presence of other cardiac implants and grafts; Z96.651 Presence of right artificial knee joint; Z79.890 Hormone replacement therapy; Z79.899 Other long term (current) drug therapy; Z88.8 Allergy status to other drugs, medicaments and biological substances; Z91.048 Other nonmedicinal substance allergy status; Z88.0 Allergy status to penicillin; Z88.2 Allergy status to sulfonamides; Z88.7 Allergy status to serum and vaccine
CPT/HCPCS: 36415; 93005; 83880; 80053; 82550; 82553; 83735; 84484; 85025; 85610; 85730; 71046; 99284; 96374; J1940

== ENCOUNTER 2018-09-30 01:34 | Emergency (ER) | payer MEDICARE, OTHER ==
[2018-09-30 01:42] VITALS: BP 139/74; PULSE 90; RESP 20; TEMP 98.4
--- NOTE | 2018-09-30 02:19 | ED ---
General Adult HPI - General Chief complaint: Recheck/Abnormal Lab/Rx Stated complaint: can't sleep Time Seen by Provider: 09/30/18 01:58 Source: EMS Mode of arrival: EMS Limitations: no limitations - History of Present Illness Initial comments: Magda is a 58-year-old female very well-known to our emergency department who presents today via EMS reporting that she hasn't been able to sleep since Saturday morning due to her restless leg. Patient reports she's been compliant with her home medication including her Requip. Despite this she continues to have restless leg he keeps her awake and I. Patient reports that she took 3 hot showers yesterday evening to relax her legs but still had restless leg throughout the night which prompted her call EMS for transport to the hospital. She reports she has contacted her primary care physician about this they advised her that a have any available appointment until October 22. - Related Data Home Medications Medication Instructions Recorded Confirmed Mirabegron [Myrbetriq] 50 mg PO DAILY 05/23/17 09/18/18 Atorvastatin [Lipitor] 10 mg PO HS 06/07/17 09/18/18 Carvedilol [Coreg] 25 mg PO BID 06/07/17 09/18/18 Loratadine [Claritin] 10 mg PO DAILY 06/07/17 09/18/18 Multivitamins, Thera [Multivitamin 1 tab PO DAILY 06/07/17 09/18/18 (formulary)] Omeprazole 20 mg PO DAILY 06/07/17 09/18/18 Levothyroxine Sodium [Synthroid] 137 mcg PO DAILY 10/20/17 09/18/18 hydrALAZINE HCL [Apresoline] 50 mg PO BID 10/20/17 09/18/18 rOPINIRole HCL 4 mg PO BID 03/31/18 09/18/18 Metolazone [Zaroxolyn] 2.5 mg PO DAILY 06/06/18 09/18/18 Albuterol Inhaler [Ventolin Hfa 2 puff INHALATION RT-Q6H PRN 06/10/18 09/18/18 Inhaler] Montelukast [Singulair] 10 mg PO HS 06/28/18 09/18/18 risperiDONE MICROSPHERES 25 mg IM Q14D 07/21/18 09/18/18 [RisperDAL CONSTA] Cholecalciferol (Vitamin D3) 10,000 unit PO DAILY 07/23/18 09/18/18 [Vitamin D3] DULoxetine HCL [Cymbalta] 60 mg PO DAILY 08/15/18 09/18/18 Furosemide [Lasix] 40 mg PO DAILY 08/15/18 09/18/18 Furosemide [Lasix] 80 mg PO HS 08/15/18 09/18/18 Gabapentin [Neurontin] 300 mg PO BID 08/15/18 09/18/18 Mirtazapine [Remeron] 15 mg PO HS 08/15/18 09/18/18 Potassium Chloride ER [K-Dur 20] 20 meq PO DAILY 08/15/18 09/18/18 clonazePAM 0.25 mg PO DAILY PRN 08/20/18 09/18/18 Previous Rx's Medication Instructions Recorded Rivaroxaban [Xarelto] 20 mg PO DAILY 90 Days #90 tab 11/18/17 Allergies Allergy/AdvReac Type Severity Reaction Status Date / Time buspirone [From BuSpar] Allergy Unknown Verified 09/30/18 01:45 haloperidol [From Haldol] Allergy Swelling Verified 09/30/18 01:45 iodine Allergy Swelling Verified 09/30/18 01:45 Penicillins Allergy Swelling Verified 09/30/18 01:45 prochlorperazine Allergy Rash/Hives Verified 09/30/18 01:45 Sulfa (Sulfonamide Allergy Rash/Hives Verified 09/30/18 01:45 Antibiotics) Tetanus Vaccines and Toxoid Allergy Rash/Hives Verified 09/30/18 01:45 [Tetanus Vaccines & Toxoid] trifluoperazine HCl Allergy Unknown Verified 09/30/18 01:45 [From Stelazine] hydroxyzine [From Vistaril] AdvReac Rash/Hives Verified 09/30/18 01:45 Review of Systems ROS Statement: Those systems with pertinent positive or pertinent negative responses have been documented in the HPI. ROS Other: All systems not noted in ROS Statement are negative. Past Medical History Past Medical History: Asthma, Heart Failure, COPD, Diabetes Mellitus, GERD/ Reflux, Hyperlipidemia, Hypertension, Musculoskeletal Disorder, Osteoarthritis ( OA), Pneumonia, Pulmonary Embolus (PE), Thyroid Disorder Additional Past Medical History / Comment(s): chronic low back pain, herniated discs, RLS, leg edema, anemia, gout bilateral feet, hypothyroid, UTIs History of Any Multi-Drug Resistant Organisms: None Reported Past Surgical History: Bariatric Surgery, Heart Catheterization, Hernia Repair, Orthopedic Surgery Additional Past Surgical History / Comment(s): Total Right knee replacement, 3 abdominal hernia repairs, left hip repair d/t fracture, gastric bypass/revision , colonoscopy. Past Anesthesia/Blood Transfusion Reactions: No Reported Reaction Past Psychological History: Anxiety, Bipolar, Depression, Panic Disorder, PTSD Smoking Status: Never smoker Past Alcohol Use History: None Reported Past Drug Use History: None Reported - Past Family History Mother Family Medical History: Cancer Additional Family Medical History / Comment(s): lung cancer Father Family Medical History: Diabetes Mellitus Additional Family Medical History / Comment(s): "my dad from a blood clot that traveled from his leg to his lung and also caused a heart attack." Brother(s) Family Medical History: Diabetes Mellitus Sister(s) Additional Family Medical History / Comment(s): "her heart races too fast" General Exam - General Exam Comments Initial Comments: Physical Exam GENERAL: Morbidly obese female, unkempt appearance HENT: Normocephalic, Atraumatic. EYES: PERRL, EOMI PULMONARY: Unlabored respirations. No audible rales rhonchi or wheezing was noted. CARDIOVASCULAR: There is a regular rate and rhythm Systolic murmur ABDOMEN: Soft and nontender with normal bowel sounds. SKIN: Skin is clear with no lesions or rashes and otherwise unremarkable. : Deferred NEUROLOGIC: Patient is alert and oriented x3. Moving all extremities spontaneously MUSCULOSKELETAL: Normal extremities with adequate strength and full range of motion. No lower extremity swelling or edema. No calf tenderness. PSYCHIATRIC: Anxious and agitated Limitations: no limitations Limitations: no limitations Course Vital Signs 09/30/18 01:40 Temperature 98.4 F Pulse Rate 90 Respiratory 20 Rate Blood Pressure 139/74 O2 Sat by Pulse 96 Oximetry Medical Decision Making - Medical Decision Making Patient was brought in by EMS and placed in the room, when I went to the room to evaluate the patient she appeared to be resting comfortably I did not disturb the patient at that time as her chief complaint was that she hadn't been able to sleep Patient became agitated that she hadn't been evaluated, I returned bedside and evaluated patient she reports her restless leg syndrome has been bothering her he has not been able to sleep. I offered the patient by mouth Ativan to help her sleep but she states that if I'm not going to prescribe it for her for every night that she doesn't want to bother because it's already 4 AM. At this time the patient would like to be discharged home. I again encouraged the patient contact her primary care office to see about follow-up. She insists that she contacted them yesterday and they cannot see her to figure 20th. I advised her that if she calls and let them know that she had be evaluated in the ER they may be able to see her sooner. This time the patient is medically cleared for discharge home. Disposition Clinical Impression: Restless leg, Insomnia Disposition: HOME SELF-CARE Condition: Stable Instructions (If sedation given, give patient instructions): Insomnia (ED) Is patient prescribed a controlled substance at d/c from ED?: No Referrals: [facility] [Primary Care Provider] - 1-2 days
== END 2018-09-30 04:57 | disposition home or self-care (01) ==
LOC: EC 01:34
DX: G25.81 Restless legs syndrome (principal); G47.00 Insomnia, unspecified; J44.9 Chronic obstructive pulmonary disease, unspecified; I11.0 Hypertensive heart disease with heart failure; I50.9 Heart failure, unspecified; K21.9 Gastro-esophageal reflux disease without esophagitis; E78.5 Hyperlipidemia, unspecified; M19.90 Unspecified osteoarthritis, unspecified site; G89.29 Other chronic pain; M54.5 Low back pain; E03.9 Hypothyroidism, unspecified; M10.9 Gout, unspecified; D64.9 Anemia, unspecified; F31.9 Bipolar disorder, unspecified; F41.0 Panic disorder [episodic paroxysmal anxiety]; F43.10 Post-traumatic stress disorder, unspecified; Z86.711 Personal history of pulmonary embolism; Z79.890 Hormone replacement therapy; Z79.899 Other long term (current) drug therapy; Z88.0 Allergy status to penicillin; Z88.2 Allergy status to sulfonamides; Z88.7 Allergy status to serum and vaccine; Z88.8 Allergy status to other drugs, medicaments and biological substances; Z95.818 Presence of other cardiac implants and grafts; Z96.651 Presence of right artificial knee joint
CPT/HCPCS: 99283

== ENCOUNTER 2018-10-14 00:18 | Emergency (ER) | payer MEDICARE, OTHER ==
[2018-10-14 00:35] VITALS: BP 171/77; PULSE 100; RESP 18; TEMP 98.2
[2018-10-14] MEDS ORDERED: LORazepam 1 MG TAB PO STA (00:54)
--- NOTE | 2018-10-14 00:55 | ED ---
General Adult HPI - General Source: patient, EMS Mode of arrival: EMS Limitations: no limitations <Breana Adams - Last Filed: 10/14/18 02:32> <Susanne Allen - Last Filed: 10/14/18 04:40> - General Chief complaint: Altered Mental Status Stated complaint: altered mental status Time Seen by Provider: 10/14/18 00:41 - History of Present Illness Initial comments: 58-year-old female patient was sent to the emergency department by her extended care facility after she became angry and upset with staff members. Upon arrival patient denies any physical symptoms or concerns. States that she was not meaning to staff. She denies any suicidal or homicidal ideation. Patient denies any recent rash, fever, chills, shortness breath, chest pain, abdominal pain, nausea, vomiting, diarrhea, constipation, back pain, numbness, tingling, dizziness, weakness, hematuria, dysuria, urinary urgency, urinary frequency, headache, visual changes, or any other complaints. (Breana Adams) - Related Data Home Medications Medication Instructions Recorded Confirmed Mirabegron [Myrbetriq] 50 mg PO DAILY 05/23/17 09/18/18 Atorvastatin [Lipitor] 10 mg PO HS 06/07/17 09/18/18 Carvedilol [Coreg] 25 mg PO BID 06/07/17 09/18/18 Loratadine [Claritin] 10 mg PO DAILY 06/07/17 09/18/18 Multivitamins, Thera [Multivitamin 1 tab PO DAILY 06/07/17 09/18/18 (formulary)] Omeprazole 20 mg PO DAILY 06/07/17 09/18/18 Levothyroxine Sodium [Synthroid] 137 mcg PO DAILY 10/20/17 09/18/18 hydrALAZINE HCL [Apresoline] 50 mg PO BID 10/20/17 09/18/18 rOPINIRole HCL 4 mg PO BID 03/31/18 09/18/18 Metolazone [Zaroxolyn] 2.5 mg PO DAILY 06/06/18 09/18/18 Albuterol Inhaler [Ventolin Hfa 2 puff INHALATION RT-Q6H PRN 06/10/18 09/18/18 Inhaler] Montelukast [Singulair] 10 mg PO HS 06/28/18 09/18/18 risperiDONE MICROSPHERES 25 mg IM Q14D 07/21/18 09/18/18 [RisperDAL CONSTA] Cholecalciferol (Vitamin D3) 10,000 unit PO DAILY 07/23/18 09/18/18 [Vitamin D3] DULoxetine HCL [Cymbalta] 60 mg PO DAILY 08/15/18 09/18/18 Furosemide [Lasix] 40 mg PO DAILY 08/15/18 09/18/18 Furosemide [Lasix] 80 mg PO HS 08/15/18 09/18/18 Gabapentin [Neurontin] 300 mg PO BID 08/15/18 09/18/18 Mirtazapine [Remeron] 15 mg PO HS 08/15/18 09/18/18 Potassium Chloride ER [K-Dur 20] 20 meq PO DAILY 08/15/18 09/18/18 clonazePAM 0.25 mg PO DAILY PRN 08/20/18 09/18/18 Previous Rx's Medication Instructions Recorded Rivaroxaban [Xarelto] 20 mg PO DAILY 90 Days #90 tab 11/18/17 Allergies Allergy/AdvReac Type Severity Reaction Status Date / Time buspirone [From BuSpar] Allergy Unknown Verified 09/30/18 01:45 haloperidol [From Haldol] Allergy Swelling Verified 09/30/18 01:45 iodine Allergy Swelling Verified 09/30/18 01:45 Penicillins Allergy Swelling Verified 09/30/18 01:45 prochlorperazine Allergy Rash/Hives Verified 09/30/18 01:45 Sulfa (Sulfonamide Allergy Rash/Hives Verified 09/30/18 01:45 Antibiotics) Tetanus Vaccines and Toxoid Allergy Rash/Hives Verified 09/30/18 01:45 [Tetanus Vaccines & Toxoid] trifluoperazine HCl Allergy Unknown Verified 09/30/18 01:45 [From Stelazine] hydroxyzine [From Vistaril] AdvReac Rash/Hives Verified 09/30/18 01:45 Review of Systems ROS Other: All systems not noted in ROS Statement are negative. <Breana Adams - Last Filed: 10/14/18 02:32> ROS Other: All systems not noted in ROS Statement are negative. <Susanne Allen - Last Filed: 10/14/18 04:40> ROS Statement: Those systems with pertinent positive or pertinent negative responses have been documented in the HPI. Past Medical History Past Medical History: Asthma, Heart Failure, COPD, Diabetes Mellitus, GERD/ Reflux, Hyperlipidemia, Hypertension, Musculoskeletal Disorder, Osteoarthritis ( OA), Pneumonia, Pulmonary Embolus (PE), Thyroid Disorder Additional Past Medical History / Comment(s): chronic low back pain, herniated discs, RLS, leg edema, anemia, gout bilateral feet, hypothyroid, UTIs History of Any Multi-Drug Resistant Organisms: None Reported Past Surgical History: Bariatric Surgery, Heart Catheterization, Hernia Repair, Orthopedic Surgery Additional Past Surgical History / Comment(s): Total Right knee replacement, 3 abdominal hernia repairs, left hip repair d/t fracture, gastric bypass/revision , colonoscopy. Past Anesthesia/Blood Transfusion Reactions: No Reported Reaction Past Psychological History: Anxiety, Bipolar, Depression, Panic Disorder, PTSD Smoking Status: Never smoker Past Alcohol Use History: None Reported Past Drug Use History: None Reported - Past Family History Mother Family Medical History: Cancer Additional Family Medical History / Comment(s): lung cancer Father Family Medical History: Diabetes Mellitus Additional Family Medical History / Comment(s): "my dad from a blood clot that traveled from his leg to his lung and also caused a heart attack." Brother(s) Family Medical History: Diabetes Mellitus Sister(s) Additional Family Medical History / Comment(s): "her heart races too fast" <Breana Adams M - Last Filed: 10/14/18 02:32> General Exam Limitations: no limitations General appearance: alert, in no apparent distress, other (Physical well- developed, well-nourished adult female patient in no acute distress. Vital signs upon presentation are temperature 98.2F, pulse 100, respirations 18, blood pressure 171/77, pulse ox 97% on room air.) Eye exam: Present: normal appearance, PERRL, EOMI. Absent: scleral icterus, conjunctival injection, periorbital swelling ENT exam: Present: normal exam, normal oropharynx, mucous membranes moist Respiratory exam: Present: normal lung sounds bilaterally. Absent: respiratory distress, wheezes, rales, rhonchi, stridor Cardiovascular Exam: Present: regular rate, normal rhythm, normal heart sounds. Absent: systolic murmur, diastolic murmur, rubs, gallop, clicks Neurological exam: Present: alert, oriented X3, CN II-XII intact Psychiatric exam: Present: normal affect, normal mood Skin exam: Present: warm, dry, intact, normal color. Absent: rash <Breana Adams - Last Filed: 10/14/18 02:32> Vital Signs 10/14/18 00:21 Temperature 98.2 F Pulse Rate 100 Respiratory 18 Rate Blood Pressure 171/77 O2 Sat by Pulse 97 Oximetry Medical Decision Making <Breana Adams - Last Filed: 10/14/18 02:32> <Susanne Allen - Last Filed: 10/14/18 04:40> - Medical Decision Making 58-year-old female patient presented to the emergency department today for evaluation after being sent by staff at her extended care facility after she became angry and upset there. Patient states she is not physically violent. Denies suicidal or homicidal ideation. She denies any current physical symptoms or concerns. She does report some mild anxiety, she'll be given oral Ativan for this. She is instructed to follow-up with her primary care physician as needed. Return parameters were discussed in detail. She verbalizes understanding and agrees with this plan. (Breana Adams) I was available for consultation in the emergency department. The history and physical exam were done by the midlevel provider. I was consulted for this patient's care. I reviewed the case with the midlevel provider and based on their presentation of the patient, I agree with the assessment, medical decision making and plan of care as documented. (Susanne Allen) Disposition Is patient prescribed a controlled substance at d/c from ED?: No Time of Disposition: 00:55 <Breana Adams - Last Filed: 10/14/18 02:32> <Susanne Allen - Last Filed: 10/14/18 04:40> Clinical Impression: Agitation Disposition: HOME SELF-CARE Condition: Good Instructions (If sedation given, give patient instructions): Anxiety (ED) Additional Instructions: Follow-up with your primary care physician for recheck as needed. Return to the emergency department immediately for any new, worsening, or concerning symptoms. Referrals: [facility] [Primary Care Provider] - 1-2 days
== END 2018-10-14 01:43 | disposition home or self-care (01) ==
LOC: EC 00:18
DX: R45.1 Restlessness and agitation (principal); R41.82 Altered mental status, unspecified; F41.9 Anxiety disorder, unspecified; I11.0 Hypertensive heart disease with heart failure; I50.9 Heart failure, unspecified; J44.9 Chronic obstructive pulmonary disease, unspecified; K21.9 Gastro-esophageal reflux disease without esophagitis; E78.5 Hyperlipidemia, unspecified; E03.9 Hypothyroidism, unspecified; F31.9 Bipolar disorder, unspecified; F41.0 Panic disorder [episodic paroxysmal anxiety]; M19.90 Unspecified osteoarthritis, unspecified site; Z79.02 Long term (current) use of antithrombotics/antiplatelets; Z79.890 Hormone replacement therapy; Z79.899 Other long term (current) drug therapy; Z88.0 Allergy status to penicillin; Z88.2 Allergy status to sulfonamides; Z88.8 Allergy status to other drugs, medicaments and biological substances; Z91.048 Other nonmedicinal substance allergy status; Z88.7 Allergy status to serum and vaccine; Z95.5 Presence of coronary angioplasty implant and graft; Z96.651 Presence of right artificial knee joint; Z98.84 Bariatric surgery status; Z86.711 Personal history of pulmonary embolism
CPT/HCPCS: 99284 ×3; 82075; 96374; 96375; 36415; 80053; 82150; 83690; 85025; 82272; 81001; 80306; 74176; G0480; J2270; J0360; 80320

== ENCOUNTER 2018-10-14 12:13 | Emergency (ER) | payer MEDICARE, OTHER ==
[2018-10-14] MEDS ORDERED: MORPHINE SULFATE 4 MG/ML SYRINGE IV STA (12:40)
--- NOTE | 2018-10-14 12:45 | ED ---
General Adult HPI - General Chief complaint: Psychiatric Symptoms Stated complaint: Psych eval Time Seen by Provider: 10/14/18 12:18 Source: patient, RN notes reviewed Mode of arrival: ambulatory Limitations: no limitations - History of Present Illness Initial comments: Patient is a pleasant 58-year-old female presenting to the emergency department sent from nursing facility for at the health evaluation. Patient reportedly has been agitated and yelling at the nurses. Patient admits to this. Patient also states she has some discomfort of the left side of her abdomen. Patient states she has had a few episodes of diarrhea. No constipation. No fever. No nausea or vomiting. - Related Data Home Medications Medication Instructions Recorded Confirmed Mirabegron [Myrbetriq] 50 mg PO DAILY 05/23/17 10/14/18 Atorvastatin [Lipitor] 10 mg PO HS 06/07/17 10/14/18 Carvedilol [Coreg] 25 mg PO BID 06/07/17 10/14/18 Loratadine [Claritin] 10 mg PO DAILY 06/07/17 10/14/18 Multivitamins, Thera [Multivitamin 1 tab PO DAILY 06/07/17 10/14/18 (formulary)] Omeprazole 20 mg PO DAILY 06/07/17 10/14/18 Levothyroxine Sodium [Synthroid] 137 mcg PO DAILY 10/20/17 10/14/18 hydrALAZINE HCL [Apresoline] 50 mg PO BID 10/20/17 10/14/18 rOPINIRole HCL 4 mg PO BID 03/31/18 10/14/18 Metolazone [Zaroxolyn] 2.5 mg PO DAILY 06/06/18 10/14/18 Albuterol Inhaler [Ventolin Hfa 2 puff INHALATION RT-Q6H PRN 06/10/18 10/14/18 Inhaler] Montelukast [Singulair] 10 mg PO HS 06/28/18 10/14/18 risperiDONE MICROSPHERES 25 mg IM Q14D 07/21/18 10/14/18 [RisperDAL CONSTA] Cholecalciferol (Vitamin D3) 10,000 unit PO DAILY 07/23/18 10/14/18 [Vitamin D3] DULoxetine HCL [Cymbalta] 60 mg PO DAILY 08/15/18 10/14/18 Furosemide [Lasix] 40 mg PO DAILY 08/15/18 10/14/18 Furosemide [Lasix] 80 mg PO HS 08/15/18 10/14/18 Gabapentin [Neurontin] 300 mg PO BID 08/15/18 10/14/18 Mirtazapine [Remeron] 15 mg PO HS 08/15/18 10/14/18 Potassium Chloride ER [K-Dur 20] 20 meq PO DAILY 08/15/18 10/14/18 clonazePAM 0.25 mg PO HS PRN 08/20/18 10/14/18 Previous Rx's Medication Instructions Recorded Rivaroxaban [Xarelto] 20 mg PO DAILY 90 Days #90 tab 11/18/17 Allergies Allergy/AdvReac Type Severity Reaction Status Date / Time buspirone [From BuSpar] Allergy Unknown Verified 10/14/18 12:26 haloperidol [From Haldol] Allergy Swelling Verified 10/14/18 12:26 iodine Allergy Swelling Verified 10/14/18 12:26 Penicillins Allergy Swelling Verified 10/14/18 12:26 prochlorperazine Allergy Rash/Hives Verified 10/14/18 12:26 Sulfa (Sulfonamide Allergy Rash/Hives Verified 10/14/18 12:26 Antibiotics) Tetanus Vaccines and Toxoid Allergy Rash/Hives Verified 10/14/18 12:26 [Tetanus Vaccines & Toxoid] trifluoperazine HCl Allergy Unknown Verified 10/14/18 12:26 [From Stelazine] hydroxyzine [From Vistaril] AdvReac Rash/Hives Verified 10/14/18 12:26 Review of Systems ROS Statement: Those systems with pertinent positive or pertinent negative responses have been documented in the HPI. ROS Other: All systems not noted in ROS Statement are negative. Constitutional: Denies: fever Eyes: Denies: eye pain ENT: Denies: ear pain Respiratory: Denies: cough Cardiovascular: Denies: chest pain Endocrine: Denies: fatigue Gastrointestinal: Reports: abdominal pain Genitourinary: Denies: dysuria Musculoskeletal: Denies: back pain Skin: Denies: rash Neurological: Denies: weakness Past Medical History Past Medical History: Asthma, Heart Failure, COPD, Diabetes Mellitus, GERD/ Reflux, Hyperlipidemia, Hypertension, Musculoskeletal Disorder, Osteoarthritis ( OA), Pneumonia, Pulmonary Embolus (PE), Thyroid Disorder Additional Past Medical History / Comment(s): chronic low back pain, herniated discs, RLS, leg edema, anemia, gout bilateral feet, hypothyroid, UTIs History of Any Multi-Drug Resistant Organisms: None Reported Past Surgical History: Bariatric Surgery, Heart Catheterization, Hernia Repair, Orthopedic Surgery Additional Past Surgical History / Comment(s): Total Right knee replacement, 3 abdominal hernia repairs, left hip repair d/t fracture, gastric bypass/revision , colonoscopy. Past Anesthesia/Blood Transfusion Reactions: No Reported Reaction Past Psychological History: Anxiety, Bipolar, Depression, Panic Disorder, PTSD Smoking Status: Never smoker Past Alcohol Use History: None Reported Past Drug Use History: None Reported - Past Family History Mother Family Medical History: Cancer Additional Family Medical History / Comment(s): lung cancer Father Family Medical History: Diabetes Mellitus Additional Family Medical History / Comment(s): "my dad from a blood clot that traveled from his leg to his lung and also caused a heart attack." Brother(s) Family Medical History: Diabetes Mellitus Sister(s) Additional Family Medical History / Comment(s): "her heart races too fast" General Exam Limitations: no limitations General appearance: alert, in no apparent distress Head exam: Present: atraumatic Eye exam: Present: normal appearance Neck exam: Present: normal inspection Respiratory exam: Present: normal lung sounds bilaterally Cardiovascular Exam: Present: regular rate, normal rhythm Expanded Peripheral pulses: 2+: Dorsalis Pedis (R), Dorsalis Pedis (L) GI/Abdominal exam: Present: soft, tenderness (Mild tenderness left lower abdomen ). Absent: distended Extremities exam: Present: normal inspection. Absent: calf tenderness Neurological exam: Present: alert Psychiatric exam: Present: normal affect, normal mood Skin exam: Present: normal color Course Vital Signs 10/14/18 10/14/18 10/14/18 12:19 14:49 16:00 Pulse Rate 94 103 H 98 Respiratory 18 18 20 Rate Blood Pressure 179/102 201/92 198/100 O2 Sat by Pulse 97 96 96 Oximetry Medical Decision Making - Medical Decision Making Patient reevaluated and no abdominal pain. Case was discussed with medical on- call, Dr. Vegas who does agree patient is stable for mental health evaluation. Anemia can be further worked up as an outpatient and does not need any acute intervention. In addition anemia is at least somewhat chronic. 1718: Patient was seen by mental health services, who does recommend discharge. - Lab Data Result diagrams: 10/14/18 13:30 10/14/18 13:30 Lab Results 10/14/18 10/14/18 10/14/18 Range/Units 13:30 13:30 13:30 WBC 7.3 (3.8-10.6) k/uL RBC 3.47 L (3.80-5.40) m/uL Hgb 7.6 L (11.4-16.0) gm/dL Hct 25.1 L (34.0-46.0) % MCV 72.4 L (80.0-100.0) fL MCH 22.0 L (25.0-35.0) pg MCHC 30.4 L (31.0-37.0) g/dL RDW 17.7 H (11.5-15.5) % Plt Count 323 (150-450) k/uL Neutrophils % 76 % Lymphocytes % 14 % Monocytes % 5 % Eosinophils % 3 % Basophils % 0 % Neutrophils # 5.5 (1.3-7.7) k/uL Lymphocytes # 1.0 (1.0-4.8) k/uL Monocytes # 0.4 (0-1.0) k/uL Eosinophils # 0.2 (0-0.7) k/uL Basophils # 0.0 (0-0.2) k/uL Hypochromasia Moderate Anisocytosis Slight Microcytosis Moderate Sodium (137-145) mmol/L Potassium (3.5-5.1) mmol/L Chloride (98-107) mmol/L Carbon Dioxide (22-30) mmol/L Anion Gap mmol/L BUN (7-17) mg/dL Creatinine (0.52-1.04) mg/dL Est GFR (CKD-EPI)AfAm (>60 ml/min/1.73 sqM) Est GFR (CKD-EPI)NonAf (>60 ml/min/1.73 sqM) Glucose (74-99) mg/dL Calcium (8.4-10.2) mg/dL Total Bilirubin (0.2-1.3) mg/dL AST (14-36) U/L ALT (9-52) U/L Alkaline Phosphatase (38-126) U/L Total Protein (6.3-8.2) g/dL Albumin (3.5-5.0) g/dL Amylase <30 L (30-110) U/L Lipase 106 (23-300) U/L Urine Color Colorless Urine Appearance Clear (Clear) Urine pH 6.0 (5.0-8.0) Ur Specific Eagle 1.005 (1.001-1.035) Urine Protein Negative (Negative) Urine Glucose (UA) Negative (Negative) Urine Ketones Negative (Negative) Urine Blood Negative (Negative) Urine Nitrite Negative (Negative) Urine Bilirubin Negative (Negative) Urine Urobilinogen <2.0 (<2.0) mg/dL Ur Leukocyte Esterase Small H (Negative) Urine RBC 2 (0-5) /hpf Urine WBC 7 H (0-5) /hpf Ur Squamous Epith Cells 1 (0-4) /hpf Urine Bacteria Occasional H (None) /hpf Urine Mucus Rare H (None) /hpf Stool Occult Blood (Negative) Urine Opiates Screen Detected H (NotDetected) Ur Oxycodone Screen Not Detected (NotDetected) Urine Methadone Screen Not Detected (NotDetected) Ur Propoxyphene Screen Not Detected (NotDetected) Ur Barbiturates Screen Not Detected (NotDetected) U Tricyclic Antidepress Not Detected (NotDetected) Ur Phencyclidine Scrn Not Detected (NotDetected) Ur Amphetamines Screen Not Detected (NotDetected) U Methamphetamines Scrn Not Detected (NotDetected) U Benzodiazepines Scrn Not Detected (NotDetected) Urine Cocaine Screen Not Detected (NotDetected) U Marijuana (THC) Screen Not Detected (NotDetected) Serum Alcohol <10 mg/dL 10/14/18 10/14/18 Range/Units 13:30 15:10 WBC (3.8-10.6) k/uL RBC (3.80-5.40) m/uL Hgb (11.4-16.0) gm/dL Hct (34.0-46.0) % MCV (80.0-100.0) fL MCH (25.0-35.0) pg MCHC (31.0-37.0) g/dL RDW (11.5-15.5) % Plt Count (150-450) k/uL Neutrophils % % Lymphocytes % % Monocytes % % Eosinophils % % Basophils % % Neutrophils # (1.3-7.7) k/uL Lymphocytes # (1.0-4.8) k/uL Monocytes # (0-1.0) k/uL Eosinophils # (0-0.7) k/uL Basophils # (0-0.2) k/uL Hypochromasia Anisocytosis Microcytosis Sodium 140 (137-145) mmol/L Potassium 4.6 (3.5-5.1) mmol/L Chloride 107 (98-107) mmol/L Carbon Dioxide 25 (22-30) mmol/L Anion Gap 8 mmol/L BUN 14 (7-17) mg/dL Creatinine 0.59 (0.52-1.04) mg/dL Est GFR (CKD-EPI)AfAm >90 (>60 ml/min/1.73 sqM) Est GFR (CKD-EPI)NonAf >90 (>60 ml/min/1.73 sqM) Glucose 96 (74-99) mg/dL Calcium 9.8 (8.4-10.2) mg/dL Total Bilirubin 0.3 (0.2-1.3) mg/dL AST 24 (14-36) U/L ALT 29 (9-52) U/L Alkaline Phosphatase 74 (38-126) U/L Total Protein 6.2 L (6.3-8.2) g/dL Albumin 3.3 L (3.5-5.0) g/dL Amylase (30-110) U/L Lipase (23-300) U/L Urine Color Urine Appearance (Clear) Urine pH (5.0-8.0) Ur Specific Eagle (1.001-1.035) Urine Protein (Negative) Urine Glucose (UA) (Negative) Urine Ketones (Negative) Urine Blood (Negative) Urine Nitrite (Negative) Urine Bilirubin (Negative) Urine Urobilinogen (<2.0) mg/dL Ur Leukocyte Esterase (Negative) Urine RBC (0-5) /hpf Urine WBC (0-5) /hpf Ur Squamous Epith Cells (0-4) /hpf Urine Bacteria (None) /hpf Urine Mucus (None) /hpf Stool Occult Blood Negative (Negative) Urine Opiates Screen (NotDetected) Ur Oxycodone Screen (NotDetected) Urine Methadone Screen (NotDetected) Ur Propoxyphene Screen (NotDetected) Ur Barbiturates Screen (NotDetected) U Tricyclic Antidepress (NotDetected) Ur Phencyclidine Scrn (NotDetected) Ur Amphetamines Screen (NotDetected) U Methamphetamines Scrn (NotDetected) U Benzodiazepines Scrn (NotDetected) Urine Cocaine Screen (NotDetected) U Marijuana (THC) Screen (NotDetected) Serum Alcohol mg/dL - Radiology Data Radiology results: report reviewed (Computed tomography scan of the abdomen pelvis is limited however no acute abnormality.) Disposition Clinical Impression: Agitation Disposition: HOME SELF-CARE Condition: Stable Instructions (If sedation given, give patient instructions): Anemia (ED), Conduct Disorder (ED) Additional Instructions: Please follow-up with primary care physician in the next couple days for recheck. Have primary care physician reevaluate regarding anemia. Please follow-up with mental health services as directed. Is patient prescribed a controlled substance at d/c from ED?: No Referrals: [facility] [Primary Care Provider] - 1-2 days Time of Disposition: 17:18
[2018-10-14 13:44] LABS: Anisocytosis Slight; Basophils % (A) 0 %; Eosinophils # (A) 0.2 k/uL (0-0.7); Eosinophils % (A) 3 %; HCT 25.1 % (34.0-46.0); HGB 7.6 gm/dL (11.4-16.0); Hypochromasia Moderate; Lymphocytes % (A) 14 %; MCHC 30.4 g/dL (31.0-37.0); MCV 72.4 fL (80.0-100.0); Mean Platelet Volume 7.9; Microcytosis Moderate; Monocytes # (A) 0.4 k/uL (0-1.0); Monocytes % (A) 5 %; Neutrophils # (A) 5.5 k/uL (1.3-7.7); Neutrophils % (A) 76 %; Platelet Count 323 k/uL (150-450); RBC 3.47 m/uL (3.80-5.40); RDW 17.7 % (11.5-15.5); WBC 7.3 k/uL (3.8-10.6)
[2018-10-14 13:48] LABS: Appearance,Urine Clear (Clear); Bacteria,Urine Occasional /hpf; Bilirubin,Urine Negative (Negative); Blood,Urine Negative (Negative); Color,Urine Colorless; Glucose,Urine (UA) Negative (Negative); Ketones,Urine Negative (Negative); Leukocyte Esterase,Urine Small (Negative); Mucus,Urine Rare /hpf; Nitrite,Urine Negative (Negative); Protein,Urine Negative (Negative); RBC,Urine 2 /hpf (0-5); Specific Gravity,Urine 1.005 (1.001-1.035); Squamous Epithelial Cell,Urine 1 /hpf (0-4); Urobilinogen,Urine <2.0 mg/dL (<2.0); WBC,Urine 7 /hpf (0-5)
[2018-10-14 13:53] LABS: Alcohol <10 mg/dL; Amylase <30 U/L (30-110); Lipase 106 U/L (23-300)
[2018-10-14 13:57] LABS: Amphetamine Screen,Urine Not Detected (NotDetected); Barbiturate Screen,Urine Not Detected (NotDetected); Benzodiazepines Screen,Urine Not Detected (NotDetected); Cocaine Screen,Urine Not Detected (NotDetected); Methadone Screen, Urine Not Detected (NotDetected); Opiate Screen,Urine Detected (NotDetected); Oxycodone Screen, Urine Not Detected (NotDetected); Phencyclidine Screen,Urine Not Detected (NotDetected); Tricyclic Antidepressant,Urine Not Detected (NotDetected); Urn Cannabinoid Scrn Not Detected (NotDetected)
[2018-10-14] MEDS ORDERED: hydrALAZINE HCL 20 MG/ML 1 ML VIAL IVP STA (14:49)
--- NOTE | 2018-10-14 14:55 | CT ---
EXAMINATION TYPE: CT abdomen pelvis wo con DATE OF EXAM: 10/14/2018 HISTORY: Abdominal pain CT DLP: 2429 mGycm. Automated Exposure Control for Dose Reduction was Utilized. TECHNIQUE: CT scan of the abdomen and pelvis is performed without oral or IV contrast. COMPARISON: NONE FINDINGS: Within the limitations of a non-contrast study, the following observations are made. Exam noted suboptimal study due to patient's large body habitus. LUNG BASES: Mild cardiomegaly is seen. Respiratory motion artifact degradation is present. Tiny peric ardial effusion is noted LIVER/GB: Liver is heterogeneous with lobulated surrounding contour, underlying cirrhosis cannot be e xcluded. Liver size is normal. PANCREAS: Moderate to severe fat replaced atrophy of pancreas is seen. SPLEEN: No significant abnormality is seen. ADRENALS: No significant abnormality is seen. KIDNEYS: No renal calculi or hydronephrosis. BOWEL: No suspicious small or large bowel dilatation. GENITAL ORGANS: Anteverted uterus is present. LYMPH NODES: No greater than 1cm abdominal or pelvic lymph nodes are appreciated. OSSEOUS STRUCTURES: Metallic hardware from left proximal femur surgery is partially imaged. There is moderate narrowing of both hip joints. There is moderate multilevel disc space narrowing and vacuum d isc phenomenon in the lumbar spine. There is severe multilevel spurring in the visualized thoracic sp ine. Facet arthropathy lower lumbar levels is present. OTHER: Surgical clips and sutures in the anterior midline with soft tissue density favoring scar pann us formation. IMPRESSION: Suboptimal study without suspicious acute findings seen to account for patient's symptoms of diffuse acute pain. Cannot exclude underlying cirrhosis. Correlate clinically.
[2018-10-14 14:59] LABS: ALT 29 U/L (9-52); AST 24 U/L (14-36); Albumin 3.3 g/dL (3.5-5.0); Alkaline Phosphatase 74 U/L (38-126); Anion Gap 8 mmol/L; Blood Urea Nitrogen 14 mg/dL (7-17); Calcium 9.8 mg/dL (8.4-10.2); Carbon Dioxide 25 mmol/L (22-30); Chloride 107 mmol/L (98-107); Glucose 96 mg/dL (74-99); Potassium 4.6 mmol/L (3.5-5.1); Sodium 140 mmol/L (137-145); Total Bilirubin 0.3 mg/dL (0.2-1.3); Total Protein 6.2 g/dL (6.3-8.2)
[2018-10-14 17:08] VITALS: BP 198/100; PULSE 98; RESP 20
[2018-10-14] MEDS ORDERED: CARVEDILOL 12.5 MG TAB PO STA (17:16)
[2018-10-14] MEDS ORDERED: LORazepam 1 MG TAB PO STA (17:16)
[2018-10-14] MEDS ORDERED: rOPINIRole HCL 4 MG TABLET PO STA (17:22)
== END 2018-10-14 17:50 | disposition home or self-care (01) ==
LOC: EC 12:13
DX: R45.1 Restlessness and agitation (principal); R19.7 Diarrhea, unspecified; D64.9 Anemia, unspecified; I11.0 Hypertensive heart disease with heart failure; I50.9 Heart failure, unspecified; J44.9 Chronic obstructive pulmonary disease, unspecified; K21.9 Gastro-esophageal reflux disease without esophagitis; E78.5 Hyperlipidemia, unspecified; M19.90 Unspecified osteoarthritis, unspecified site; G25.81 Restless legs syndrome; E03.9 Hypothyroidism, unspecified; F41.9 Anxiety disorder, unspecified; F32.9 Major depressive disorder, single episode, unspecified; F43.10 Post-traumatic stress disorder, unspecified; Z98.84 Bariatric surgery status; Z98.890 Other specified postprocedural states; Z95.818 Presence of other cardiac implants and grafts; Z96.651 Presence of right artificial knee joint; Z79.890 Hormone replacement therapy; Z79.899 Other long term (current) drug therapy; Z88.8 Allergy status to other drugs, medicaments and biological substances; Z91.048 Other nonmedicinal substance allergy status; Z88.0 Allergy status to penicillin; Z88.2 Allergy status to sulfonamides; Z88.7 Allergy status to serum and vaccine
CPT/HCPCS: 99284; 96374; 96375; 82075; 36415; 80053; 82150; 83690; 85025; 82272; 81001; 80306; 74176; G0480; J2270; J0360; 80320

== ENCOUNTER 2018-10-20 15:34 | Emergency (ER) | payer MEDICARE, OTHER ==
[2018-10-20 16:15] VITALS: BP 147/66; PULSE 80; RESP 18; TEMP 98.1
--- NOTE | 2018-10-20 16:26 | ED ---
Psych HPI - General Stated Complaint: SUICIDAL Time Seen by Provider: 10/20/18 16:13 Source: patient, EMS, RN notes reviewed Mode of arrival: EMS Limitations: no limitations - History of Present Illness Initial Comments: 58-year-old female presented emergency Department via EMS from [facility] for psychiatric evaluation. There was a report that the patient stated that she was suicidal. Patient states she is not suicidal or homicidal. Denies any physical complaints are the usual. Patient states that she wants to go back at this time. Patient denies any illicit drug use no alcohol abuse. Patient states that she's not combative does not want to threaten anybody. - Related Data Home Medications Medication Instructions Recorded Confirmed Mirabegron [Myrbetriq] 50 mg PO DAILY 05/23/17 10/20/18 Atorvastatin [Lipitor] 10 mg PO HS 06/07/17 10/20/18 Carvedilol [Coreg] 25 mg PO BID 06/07/17 10/20/18 Loratadine [Claritin] 10 mg PO DAILY 06/07/17 10/20/18 Multivitamins, Thera [Multivitamin 1 tab PO DAILY 06/07/17 10/20/18 (formulary)] Omeprazole 20 mg PO DAILY 06/07/17 10/20/18 Levothyroxine Sodium [Synthroid] 137 mcg PO DAILY 10/20/17 10/20/18 hydrALAZINE HCL [Apresoline] 50 mg PO BID 10/20/17 10/20/18 rOPINIRole HCL 4 mg PO BID 03/31/18 10/20/18 Metolazone [Zaroxolyn] 2.5 mg PO DAILY 06/06/18 10/20/18 Albuterol Inhaler [Ventolin Hfa 2 puff INHALATION RT-Q6H PRN 06/10/18 10/20/18 Inhaler] Montelukast [Singulair] 10 mg PO HS 06/28/18 10/20/18 risperiDONE MICROSPHERES 25 mg IM Q14D 07/21/18 10/20/18 [RisperDAL CONSTA] Cholecalciferol (Vitamin D3) 10,000 unit PO DAILY 07/23/18 10/20/18 [Vitamin D3] DULoxetine HCL [Cymbalta] 60 mg PO DAILY 08/15/18 10/20/18 Furosemide [Lasix] 40 mg PO DAILY 08/15/18 10/20/18 Furosemide [Lasix] 80 mg PO HS 08/15/18 10/20/18 Gabapentin [Neurontin] 300 mg PO BID 08/15/18 10/20/18 Mirtazapine [Remeron] 15 mg PO HS 08/15/18 10/20/18 Potassium Chloride ER [K-Dur 20] 20 meq PO DAILY 08/15/18 10/20/18 clonazePAM 0.5 mg PO HS PRN 08/20/18 10/20/18 Previous Rx's Medication Instructions Recorded Rivaroxaban [Xarelto] 20 mg PO DAILY 90 Days #90 tab 11/18/17 Allergies Allergy/AdvReac Type Severity Reaction Status Date / Time buspirone [From BuSpar] Allergy Unknown Verified 10/20/18 16:31 haloperidol [From Haldol] Allergy Swelling Verified 10/20/18 16:31 iodine Allergy Swelling Verified 10/20/18 16:31 Penicillins Allergy Swelling Verified 10/20/18 16:31 prochlorperazine Allergy Rash/Hives Verified 10/20/18 16:31 Sulfa (Sulfonamide Allergy Rash/Hives Verified 10/20/18 16:31 Antibiotics) Tetanus Vaccines and Toxoid Allergy Rash/Hives Verified 10/20/18 16:31 [Tetanus Vaccines & Toxoid] trifluoperazine HCl Allergy Unknown Verified 10/20/18 16:31 [From Stelazine] hydroxyzine [From Vistaril] AdvReac Rash/Hives Verified 10/20/18 16:31 Review of Systems ROS Statement: Those systems with pertinent positive or pertinent negative responses have been documented in the HPI. ROS Other: All systems not noted in ROS Statement are negative. Past Medical History Past Medical History: Asthma, Heart Failure, COPD, Diabetes Mellitus, GERD/ Reflux, Hyperlipidemia, Hypertension, Musculoskeletal Disorder, Osteoarthritis ( OA), Pneumonia, Pulmonary Embolus (PE), Thyroid Disorder Additional Past Medical History / Comment(s): chronic low back pain, herniated discs, RLS, leg edema, anemia, gout bilateral feet, hypothyroid, UTIs History of Any Multi-Drug Resistant Organisms: None Reported Past Surgical History: Bariatric Surgery, Heart Catheterization, Hernia Repair, Orthopedic Surgery Additional Past Surgical History / Comment(s): Total Right knee replacement, 3 abdominal hernia repairs, left hip repair d/t fracture, gastric bypass/revision , colonoscopy. Past Anesthesia/Blood Transfusion Reactions: No Reported Reaction Past Psychological History: Anxiety, Bipolar, Depression, Panic Disorder, PTSD Smoking Status: Never smoker Past Alcohol Use History: None Reported Past Drug Use History: None Reported - Past Family History Mother Family Medical History: Cancer Additional Family Medical History / Comment(s): lung cancer Father Family Medical History: Diabetes Mellitus Additional Family Medical History / Comment(s): "my dad from a blood clot that traveled from his leg to his lung and also caused a heart attack." Brother(s) Family Medical History: Diabetes Mellitus Sister(s) Additional Family Medical History / Comment(s): "her heart races too fast" General Exam Limitations: no limitations General appearance: alert, in no apparent distress Head exam: Present: atraumatic, normocephalic, normal inspection Eye exam: Present: normal appearance, PERRL, EOMI. Absent: scleral icterus, conjunctival injection, periorbital swelling ENT exam: Present: normal exam, normal oropharynx, mucous membranes moist Neck exam: Present: normal inspection, full ROM. Absent: tenderness, meningismus, lymphadenopathy Respiratory exam: Present: normal lung sounds bilaterally. Absent: respiratory distress, wheezes, rales, rhonchi, stridor Cardiovascular Exam: Present: regular rate, normal rhythm, normal heart sounds. Absent: systolic murmur, diastolic murmur, rubs, gallop, clicks Neurological exam: Present: alert, oriented X3, CN II-XII intact Psychiatric exam: Present: normal affect, normal mood Skin exam: Present: warm, dry, intact, normal color. Absent: rash Course Vital Signs 10/20/18 16:08 Temperature 98.1 F Pulse Rate 80 Respiratory 18 Rate Blood Pressure 147/66 O2 Sat by Pulse 98 Oximetry Medical Decision Making - Medical Decision Making 58-year-old female presents emergency from for psychiatric evaluation. Patient has not suicidal or homicidal she is not depressed she is not agitated. Patient was evaluated by EPS will be discharged back - Lab Data Lab Results 10/20/18 Range/Units 16:15 Urine Opiates Screen Not Detected (NotDetected) Ur Oxycodone Screen Not Detected (NotDetected) Urine Methadone Screen Not Detected (NotDetected) Ur Propoxyphene Screen Not Detected (NotDetected) Ur Barbiturates Screen Not Detected (NotDetected) U Tricyclic Antidepress Not Detected (NotDetected) Ur Phencyclidine Scrn Not Detected (NotDetected) Ur Amphetamines Screen Not Detected (NotDetected) U Methamphetamines Scrn Not Detected (NotDetected) U Benzodiazepines Scrn Not Detected (NotDetected) Urine Cocaine Screen Not Detected (NotDetected) U Marijuana (THC) Screen Not Detected (NotDetected) Disposition Clinical Impression: Anxiety, Depression Disposition: HOME SELF-CARE Condition: Stable Instructions (If sedation given, give patient instructions): Mood Disorders (ED ) Additional Instructions: Please return to the Emergency Department if symptoms worsen or any other concerns. Is patient prescribed a controlled substance at d/c from ED?: No Referrals: [facility] [Primary Care Provider] - 1-2 days
[2018-10-20 16:43] LABS: Amphetamine Screen,Urine Not Detected (NotDetected); Barbiturate Screen,Urine Not Detected (NotDetected); Benzodiazepines Screen,Urine Not Detected (NotDetected); Cocaine Screen,Urine Not Detected (NotDetected); Methadone Screen, Urine Not Detected (NotDetected); Opiate Screen,Urine Not Detected (NotDetected); Oxycodone Screen, Urine Not Detected (NotDetected); Phencyclidine Screen,Urine Not Detected (NotDetected); Tricyclic Antidepressant,Urine Not Detected (NotDetected); Urn Cannabinoid Scrn Not Detected (NotDetected)
== END 2018-10-20 18:29 | disposition home or self-care (01) ==
LOC: EC 15:34
DX: F31.30 Bipolar disorder, current episode depressed, mild or moderate severity, unspecified (principal); F41.9 Anxiety disorder, unspecified; E78.5 Hyperlipidemia, unspecified; I11.0 Hypertensive heart disease with heart failure; I50.9 Heart failure, unspecified; J44.9 Chronic obstructive pulmonary disease, unspecified; E03.9 Hypothyroidism, unspecified; G25.81 Restless legs syndrome; K21.9 Gastro-esophageal reflux disease without esophagitis; M19.90 Unspecified osteoarthritis, unspecified site; Z88.0 Allergy status to penicillin; Z88.2 Allergy status to sulfonamides; Z88.7 Allergy status to serum and vaccine; Z88.8 Allergy status to other drugs, medicaments and biological substances; Z91.048 Other nonmedicinal substance allergy status; Z79.890 Hormone replacement therapy; Z79.899 Other long term (current) drug therapy; Z87.01 Personal history of pneumonia (recurrent); Z96.651 Presence of right artificial knee joint; Z95.818 Presence of other cardiac implants and grafts
CPT/HCPCS: 80306; 99285

== ENCOUNTER 2018-11-05 16:42 | Emergency (ER) | payer MEDICARE, OTHER ==
[2018-11-05 17:01] VITALS: BP 148/80; PULSE 85; RESP 18; TEMP 97.7
--- NOTE | 2018-11-05 17:07 | ED ---
Psych HPI - General Chief Complaint: Psychiatric Symptoms Stated Complaint: EPS eval Time Seen by Provider: 11/05/18 16:47 Source: patient, EMS, RN notes reviewed, old records reviewed Mode of arrival: EMS - History of Present Illness Initial Comments: 58-year-old female well-known to emergency department presents today with complaints of suicidal thoughts. Patient reports she was discharged from [facility] after being admitted for multiple infections. Patient states she's been at home in her apartment by herself for the past week. She states her apartment is depressing. She states that it makes her want to kill herself. Patient states that she has no specific plan. She denies any nausea or vomiting, chest pain, shortness of breath. Patient states that she has no homicidal ideation. - Related Data Home Medications Medication Instructions Recorded Confirmed Atorvastatin [Lipitor] 10 mg PO HS 06/07/17 11/05/18 Carvedilol [Coreg] 25 mg PO BID 06/07/17 11/05/18 Loratadine [Claritin] 10 mg PO DAILY 06/07/17 11/05/18 Multivitamins, Thera [Multivitamin 1 tab PO DAILY 06/07/17 11/05/18 (formulary)] Omeprazole 20 mg PO DAILY 06/07/17 11/05/18 Levothyroxine Sodium [Synthroid] 137 mcg PO DAILY 10/20/17 11/05/18 rOPINIRole HCL 4 mg PO BID 03/31/18 11/05/18 Metolazone [Zaroxolyn] 2.5 mg PO DAILY 06/06/18 11/05/18 Albuterol Inhaler [Ventolin Hfa 2 puff INHALATION RT-Q6H PRN 06/10/18 11/05/18 Inhaler] Montelukast [Singulair] 10 mg PO DAILY 06/28/18 11/05/18 risperiDONE MICROSPHERES 12.5 mg IM Q14D 07/21/18 11/05/18 [RisperDAL CONSTA] Cholecalciferol (Vitamin D3) 10,000 unit PO DAILY 07/23/18 11/05/18 [Vitamin D3] DULoxetine HCL [Cymbalta] 60 mg PO DAILY 08/15/18 11/05/18 Furosemide [Lasix] 40 mg PO DAILY 08/15/18 11/05/18 Furosemide [Lasix] 80 mg PO HS 08/15/18 11/05/18 Gabapentin [Neurontin] 300 mg PO BID 08/15/18 11/05/18 Mirtazapine [Remeron] 15 mg PO HS 08/15/18 11/05/18 Potassium Chloride ER [K-Dur 20] 20 meq PO DAILY 08/15/18 11/05/18 Dicyclomine [Bentyl] 10 mg PO Q6H PRN 11/05/18 11/05/18 Ferrous Sulfate [Feosol] 325 mg PO BID 11/05/18 11/05/18 Lactobacillus Acidophilus 1 tab PO BID 11/05/18 11/05/18 [Acidophilus] Miconazole 2% Cream [Monistat-Derm] 1 applic TOPICAL TID 11/05/18 11/05/18 Oxybutynin ER [Ditropan Xl] 10 mg PO DAILY 11/05/18 11/05/18 QUEtiapine [SEROquel] 25 mg PO QAM 11/05/18 11/05/18 QUEtiapine [SEROquel] 50 mg PO HS 11/05/18 11/05/18 tiZANidine [Zanaflex] 4 mg PO BID 11/05/18 11/05/18 Previous Rx's Medication Instructions Recorded Rivaroxaban [Xarelto] 20 mg PO DAILY 90 Days #90 tab 11/18/17 Allergies Allergy/AdvReac Type Severity Reaction Status Date / Time buspirone [From BuSpar] Allergy Unknown Verified 11/05/18 17:43 haloperidol [From Haldol] Allergy Swelling Verified 11/05/18 17:43 iodine Allergy Swelling Verified 11/05/18 17:43 Penicillins Allergy Swelling Verified 11/05/18 17:43 prochlorperazine Allergy Rash/Hives Verified 11/05/18 17:43 Sulfa (Sulfonamide Allergy Rash/Hives Verified 11/05/18 17:43 Antibiotics) Tetanus Vaccines and Toxoid Allergy Rash/Hives Verified 11/05/18 17:43 [Tetanus Vaccines & Toxoid] trifluoperazine HCl Allergy Unknown Verified 11/05/18 17:43 [From Stelazine] hydroxyzine [From Vistaril] AdvReac Rash/Hives Verified 11/05/18 17:43 Review of Systems ROS Statement: Those systems with pertinent positive or pertinent negative responses have been documented in the HPI. ROS Other: All systems not noted in ROS Statement are negative. Past Medical History Past Medical History: Asthma, Heart Failure, COPD, Diabetes Mellitus, GERD/ Reflux, Hyperlipidemia, Hypertension, Musculoskeletal Disorder, Osteoarthritis ( OA), Pneumonia, Pulmonary Embolus (PE), Thyroid Disorder Additional Past Medical History / Comment(s): chronic low back pain, herniated discs, RLS, leg edema, anemia, gout bilateral feet, hypothyroid, UTIs History of Any Multi-Drug Resistant Organisms: None Reported Past Surgical History: Bariatric Surgery, Heart Catheterization, Hernia Repair, Orthopedic Surgery Additional Past Surgical History / Comment(s): Total Right knee replacement, 3 abdominal hernia repairs, left hip repair d/t fracture, gastric bypass/revision , colonoscopy. Past Anesthesia/Blood Transfusion Reactions: No Reported Reaction Past Psychological History: Anxiety, Bipolar, Depression, Panic Disorder, PTSD Smoking Status: Never smoker Past Alcohol Use History: Occasional Past Drug Use History: None Reported - Past Family History Mother Family Medical History: Cancer Additional Family Medical History / Comment(s): lung cancer Father Family Medical History: Diabetes Mellitus Additional Family Medical History / Comment(s): "my dad from a blood clot that traveled from his leg to his lung and also caused a heart attack." Brother(s) Family Medical History: Diabetes Mellitus Sister(s) Additional Family Medical History / Comment(s): "her heart races too fast" General Exam - General Exam Comments Initial Comments: Morbidly obese 58-year-old female. Alert and oriented. No significant distress. Limitations: no limitations General appearance: alert, in no apparent distress Head exam: Present: atraumatic, normocephalic, normal inspection Eye exam: Present: normal appearance, PERRL, EOMI. Absent: scleral icterus, conjunctival injection, periorbital swelling ENT exam: Present: normal exam, mucous membranes moist Neck exam: Present: normal inspection. Absent: tenderness, meningismus, lymphadenopathy Respiratory exam: Present: normal lung sounds bilaterally. Absent: respiratory distress, wheezes, rales, rhonchi, stridor Cardiovascular Exam: Present: regular rate, normal rhythm, normal heart sounds. Absent: systolic murmur, diastolic murmur, rubs, gallop, clicks GI/Abdominal exam: Present: soft, normal bowel sounds. Absent: distended, tenderness, guarding, rebound, rigid Extremities exam: Present: normal inspection, full ROM, normal capillary refill. Absent: tenderness, pedal edema, joint swelling, calf tenderness Back exam: Present: normal inspection Neurological exam: Present: alert, oriented X3, CN II-XII intact Psychiatric exam: Present: normal mood, depressed, agitated, suicidal ideation. Absent: normal affect Skin exam: Present: warm, dry, intact, normal color. Absent: rash Course Vital Signs 11/05/18 16:45 Temperature 97.7 F Pulse Rate 85 Respiratory 18 Rate Blood Pressure 148/80 O2 Sat by Pulse 97 Oximetry Medical Decision Making - Medical Decision Making 58-year-old female presents emergency department today for depression and does not like living alone, she states she wants to return to [facility] because she cant take care of herself. Patient is medically clear at this time will be be evaluated by EPS. EPS determined patient should be discharged back home. Patient agrees and advised close follow up with [facility]. All questions answered. - Lab Data Lab Results 11/05/18 Range/Units 18:12 Urine Opiates Screen Not Detected (NotDetected) Ur Oxycodone Screen Not Detected (NotDetected) Urine Methadone Screen Not Detected (NotDetected) Ur Propoxyphene Screen Not Detected (NotDetected) Ur Barbiturates Screen Not Detected (NotDetected) U Tricyclic Antidepress Not Detected (NotDetected) Ur Phencyclidine Scrn Not Detected (NotDetected) Ur Amphetamines Screen Not Detected (NotDetected) U Methamphetamines Scrn Not Detected (NotDetected) U Benzodiazepines Scrn Not Detected (NotDetected) Urine Cocaine Screen Not Detected (NotDetected) U Marijuana (THC) Screen Not Detected (NotDetected) Disposition Clinical Impression: Depression Disposition: HOME SELF-CARE Condition: Good Instructions (If sedation given, give patient instructions): Depression (ED) Additional Instructions: Follow up with primary care physician. Return to the emergency department if any alarming signs or symptoms occur. Follow-up with outpatient psychiatry. Is patient prescribed a controlled substance at d/c from ED?: No Referrals: [facility] [Primary Care Provider] - 1-2 days Time of Disposition: 19:40
[2018-11-05 18:47] LABS: Amphetamine Screen,Urine Not Detected (NotDetected); Barbiturate Screen,Urine Not Detected (NotDetected); Benzodiazepines Screen,Urine Not Detected (NotDetected); Cocaine Screen,Urine Not Detected (NotDetected); Methadone Screen, Urine Not Detected (NotDetected); Opiate Screen,Urine Not Detected (NotDetected); Oxycodone Screen, Urine Not Detected (NotDetected); Phencyclidine Screen,Urine Not Detected (NotDetected); Tricyclic Antidepressant,Urine Not Detected (NotDetected); Urn Cannabinoid Scrn Not Detected (NotDetected)
== END 2018-11-05 19:55 | disposition home or self-care (01) ==
LOC: EC 16:42
DX: F32.9 Major depressive disorder, single episode, unspecified (principal); J44.9 Chronic obstructive pulmonary disease, unspecified; I11.0 Hypertensive heart disease with heart failure; I50.9 Heart failure, unspecified; K21.9 Gastro-esophageal reflux disease without esophagitis; E78.5 Hyperlipidemia, unspecified; E03.9 Hypothyroidism, unspecified; G25.81 Restless legs syndrome; D64.9 Anemia, unspecified; M10.9 Gout, unspecified; M19.90 Unspecified osteoarthritis, unspecified site; F41.9 Anxiety disorder, unspecified; F43.10 Post-traumatic stress disorder, unspecified; Z95.818 Presence of other cardiac implants and grafts; Z96.651 Presence of right artificial knee joint; Z79.890 Hormone replacement therapy; Z79.899 Other long term (current) drug therapy; Z88.8 Allergy status to other drugs, medicaments and biological substances; Z88.0 Allergy status to penicillin; Z88.2 Allergy status to sulfonamides; Z88.7 Allergy status to serum and vaccine; Z91.048 Other nonmedicinal substance allergy status
CPT/HCPCS: 80306; 99284

== ENCOUNTER 2018-11-12 17:08 | Emergency (ER) | payer MEDICARE, OTHER ==
[2018-11-12 17:15] VITALS: RESP 18
--- NOTE | 2018-11-12 17:34 | ED ---
General Adult HPI - General Chief complaint: Shortness of Breath Stated complaint: SOB, weight gain, heart burn Time Seen by Provider: 11/12/18 17:11 Source: patient, EMS Mode of arrival: EMS Limitations: no limitations - History of Present Illness Initial comments: Dictation was produced using [employer] dictation software. please excuse any grammatical, word or spelling errors. Chief Complaint: 58-year-old female with past medical history of asthma, COPD, diabetes, GERD, thyroid disease presents with leg pain, weight gain and shortness of breath. History of Present Illness: Patient is well-known to emergency department for multiple visitations for psychiatric complaints. Patient is well-known to emergency department. Seen this individual on multiple occasions. Patient states that she normally lives in [place]. She had her weight checked at the psychiatric office found to be 395. She didn't had another weight checked and was found to be 310. Patient had a 15 pound weight gain. She then called her primary care physician. She was also expressing some shortness of breath she was instructed to come to the emergency department. Patient also complains of a rash to her leg. The ROS documented in this emergency department record has been reviewed and confirmed by me. Those systems with pertinent positive or negative responses have been documented in the HPI. All other systems are other negative and/or noncontributory. PHYSICAL EXAM: General Impression: Alert and oriented x3, not in acute distress HEENT: Normocephalic atraumatic, extra-ocular movements intact, pupils equal and reactive to light bilaterally, mucous membranes moist. Cardiovascular: Heart regular rate and rhythm, S1&S2 audible, no murmurs, rubs or gallops Chest: Lungs clear to auscultation bilaterally, no rhonchi, no wheeze, no rales Abdomen: Bowel sounds present, abdomen soft, non-tender, non-distended, no organomegaly Musculoskeletal: Pulses present and equal in all extremities, no peripheral edema Motor: no focal deficits noted Neurological: CN II-XII grossly intact, no focal motor or sensory deficits noted Skin: Erythematous rash to bilateral medial tip area. Psych: Normal affect and mood ED course: 58-year-old female multiple comorbidities presents with weight gain, shortness of breath and skin rash. Patient vital signs upon arrival are within acceptable limits. She is not hypoxic. Patient is morbidly obese. Rash on the bilateral lower extremities appear to be contact dermatitis. There is no significant induration or skin changes. Patient did have cardiac catheterization performed in June of last year. Patient had clear coronaries performed in June 2018. Chart review shows that there is an echocardiogram from October 2017 showing ejection fraction. There is no history of congestive heart failure seen on her most recent echocardiogram.chest x-ray is unremarkable. Patient given outpatient triamcinolone cream to the lower extremity dermatitis. Patient clear for discharge. Patient prescription for triamcinolone cream. Patient was follow up with PCP upon discharge. Patient reevaluated found resting comfortably in the bed. Patient not showing any signs of respiratory distress. Repeat vital signs unremarkable. No clinical suspicion of pulmonary embolus, CHF or acute pulmonary infection. - Related Data Home Medications Medication Instructions Recorded Confirmed Atorvastatin [Lipitor] 10 mg PO HS 06/07/17 11/12/18 Carvedilol [Coreg] 25 mg PO BID 06/07/17 11/12/18 Loratadine [Claritin] 10 mg PO DAILY 06/07/17 11/12/18 Multivitamins, Thera [Multivitamin 1 tab PO DAILY 06/07/17 11/12/18 (formulary)] Omeprazole 20 mg PO DAILY 06/07/17 11/12/18 Levothyroxine Sodium [Synthroid] 137 mcg PO DAILY 10/20/17 11/12/18 rOPINIRole HCL 4 mg PO BID 03/31/18 11/12/18 Metolazone [Zaroxolyn] 2.5 mg PO DAILY 06/06/18 11/12/18 Albuterol Inhaler [Ventolin Hfa 2 puff INHALATION RT-Q6H PRN 06/10/18 11/12/18 Inhaler] Montelukast [Singulair] 10 mg PO DAILY 06/28/18 11/12/18 risperiDONE MICROSPHERES 12.5 mg IM Q14D 07/21/18 11/12/18 [RisperDAL CONSTA] Cholecalciferol (Vitamin D3) 10,000 unit PO DAILY 07/23/18 11/12/18 [Vitamin D3] DULoxetine HCL [Cymbalta] 60 mg PO DAILY 08/15/18 11/12/18 Furosemide [Lasix] 40 mg PO DAILY 08/15/18 11/12/18 Furosemide [Lasix] 80 mg PO HS 08/15/18 11/12/18 Gabapentin [Neurontin] 300 mg PO BID 08/15/18 11/12/18 Mirtazapine [Remeron] 15 mg PO HS 08/15/18 11/12/18 Potassium Chloride ER [K-Dur 20] 20 meq PO DAILY 08/15/18 11/12/18 Dicyclomine [Bentyl] 10 mg PO Q6H PRN 11/05/18 11/12/18 Ferrous Sulfate [Feosol] 325 mg PO BID 11/05/18 11/12/18 Lactobacillus Acidophilus 1 tab PO BID 11/05/18 11/12/18 [Acidophilus] Miconazole 2% Cream [Monistat-Derm] 1 applic TOPICAL TID 11/05/18 11/12/18 Oxybutynin ER [Ditropan Xl] 10 mg PO DAILY 11/05/18 11/12/18 QUEtiapine [SEROquel] 25 mg PO QAM 11/05/18 11/12/18 QUEtiapine [SEROquel] 50 mg PO HS 11/05/18 11/12/18 tiZANidine [Zanaflex] 4 mg PO BID 11/05/18 11/12/18 Previous Rx's Medication Instructions Recorded Rivaroxaban [Xarelto] 20 mg PO DAILY 90 Days #90 tab 11/18/17 Triamcinolone 0.5% Cream [Kenalog 1 applic TOPICAL BID #1 tube 11/12/18 0.5% Cream] Allergies Allergy/AdvReac Type Severity Reaction Status Date / Time buspirone [From BuSpar] Allergy Unknown Verified 11/12/18 17:34 haloperidol [From Haldol] Allergy Swelling Verified 11/12/18 17:34 iodine Allergy Swelling Verified 11/12/18 17:34 Penicillins Allergy Swelling Verified 11/12/18 17:34 prochlorperazine Allergy Rash/Hives Verified 11/12/18 17:34 Sulfa (Sulfonamide Allergy Rash/Hives Verified 11/12/18 17:34 Antibiotics) Tetanus Vaccines and Toxoid Allergy Rash/Hives Verified 11/12/18 17:34 [Tetanus Vaccines & Toxoid] trifluoperazine HCl Allergy Unknown Verified 11/12/18 17:34 [From Stelazine] hydroxyzine [From Vistaril] AdvReac Rash/Hives Verified 11/12/18 17:34 Review of Systems ROS Statement: Those systems with pertinent positive or pertinent negative responses have been documented in the HPI. ROS Other: All systems not noted in ROS Statement are negative. Past Medical History Past Medical History: Asthma, Heart Failure, COPD, Diabetes Mellitus, GERD/Reflux, Hyperlipidemia, Hypertension, Musculoskeletal Disorder, Osteoarthritis (OA), Pneumonia, Pulmonary Embolus (PE), Thyroid Disorder Additional Past Medical History / Comment(s): chronic low back pain, herniated discs, RLS, leg edema, anemia, gout bilateral feet, hypothyroid, UTIs History of Any Multi-Drug Resistant Organisms: None Reported Past Surgical History: Bariatric Surgery, Heart Catheterization, Hernia Repair, Orthopedic Surgery Additional Past Surgical History / Comment(s): Total Right knee replacement, 3 abdominal hernia repairs, left hip repair d/t fracture, gastric bypass/revision, colonoscopy. Past Anesthesia/Blood Transfusion Reactions: No Reported Reaction Past Psychological History: Anxiety, Bipolar, Depression, Panic Disorder, PTSD Smoking Status: Never smoker Past Alcohol Use History: Occasional Past Drug Use History: None Reported - Past Family History Mother Family Medical History: Cancer Additional Family Medical History / Comment(s): lung cancer Father Family Medical History: Diabetes Mellitus Additional Family Medical History / Comment(s): "my dad from a blood clot that traveled from his leg to his lung and also caused a heart attack." Brother(s) Family Medical History: Diabetes Mellitus Sister(s) Additional Family Medical History / Comment(s): "her heart races too fast" General Exam Limitations: no limitations Course Vital Signs 11/12/18 11/12/18 17:11 18:18 Temperature 98.1 F Pulse Rate 83 78 Respiratory 18 18 Rate Blood Pressure 146/88 147/74 O2 Sat by Pulse 97 96 Oximetry Disposition Clinical Impression: Rash Disposition: HOME SELF-CARE Condition: Good Instructions (If sedation given, give patient instructions): Acute Rash (ED) Prescriptions: Triamcinolone 0.5% Cream [Kenalog 0.5% Cream] 1 applic TOPICAL BID #1 tube Is patient prescribed a controlled substance at d/c from ED?: No Referrals: [facility] [Primary Care Provider] - 1-2 days Time of Disposition: 18:50
[2018-11-12] MEDS ORDERED: TRIAMCINOLONE ACET 0.1% OINTMENT 15 GM TUBE TOPICAL STA (17:37)
--- NOTE | 2018-11-12 18:48 | XR ---
EXAMINATION TYPE: XR chest 2V DATE OF EXAM: 11/12/2018 COMPARISON: 09/18/2018 HISTORY: Short of breath TECHNIQUE: Frontal and lateral views of the chest are obtained. FINDINGS: Heart and mediastinum are normal. Lungs are clear. Diaphragm is normal. Bony thorax is int act. There are chest leads. IMPRESSION: No active cardiopulmonary disease. Normal heart. No change.
[2018-11-12 20:05] VITALS: BP 160/84; PULSE 87; TEMP 98.3
== END 2018-11-12 20:00 | disposition home or self-care (01) ==
LOC: EC 17:08
DX: L25.9 Unspecified contact dermatitis, unspecified cause (principal); R06.02 Shortness of breath; R12 Heartburn; E66.01 Morbid (severe) obesity due to excess calories; Z68.45 Body mass index [BMI] 70 or greater, adult; I11.0 Hypertensive heart disease with heart failure; I50.9 Heart failure, unspecified; J44.9 Chronic obstructive pulmonary disease, unspecified; E78.5 Hyperlipidemia, unspecified; E03.9 Hypothyroidism, unspecified; M19.90 Unspecified osteoarthritis, unspecified site; K21.9 Gastro-esophageal reflux disease without esophagitis; F41.0 Panic disorder [episodic paroxysmal anxiety]; F31.9 Bipolar disorder, unspecified; Z79.899 Other long term (current) drug therapy; Z79.02 Long term (current) use of antithrombotics/antiplatelets; Z79.890 Hormone replacement therapy; Z88.0 Allergy status to penicillin; Z88.2 Allergy status to sulfonamides; Z88.8 Allergy status to other drugs, medicaments and biological substances; Z91.048 Other nonmedicinal substance allergy status; Z88.7 Allergy status to serum and vaccine; Z98.84 Bariatric surgery status; Z95.5 Presence of coronary angioplasty implant and graft; Z96.651 Presence of right artificial knee joint; Z86.711 Personal history of pulmonary embolism
CPT/HCPCS: 71046; 99285

== ENCOUNTER 2018-11-18 13:25 | Emergency (ER) | payer MEDICARE, OTHER ==
[2018-11-18 13:29] VITALS: TEMP 97.9
--- NOTE | 2018-11-18 13:44 | ED ---
General Adult HPI - General Chief complaint: Extremity Problem,Nontraumatic Stated complaint: Arm spasm Time Seen by Provider: 11/18/18 13:29 Source: patient, RN notes reviewed Mode of arrival: EMS Limitations: no limitations - History of Present Illness Initial comments: Patient is a pleasant 58-year-old female presenting to the emergency Department with complaints of arm spasm. Patient states onset was around 12:30. Patient states her arm started to spasm and did hurt her. Patient did not have any weakness. Patient states this has resolved and following that she did have spasms of both of her legs. Patient states those have also resolved at this point. - Related Data Home Medications Medication Instructions Recorded Confirmed Atorvastatin [Lipitor] 10 mg PO HS 06/07/17 11/18/18 Carvedilol [Coreg] 25 mg PO BID 06/07/17 11/18/18 Loratadine [Claritin] 10 mg PO DAILY 06/07/17 11/18/18 Multivitamins, Thera [Multivitamin 1 tab PO DAILY 06/07/17 11/18/18 (formulary)] Omeprazole 20 mg PO DAILY 06/07/17 11/18/18 Levothyroxine Sodium [Synthroid] 137 mcg PO DAILY 10/20/17 11/18/18 Metolazone [Zaroxolyn] 2.5 mg PO DAILY 06/06/18 11/18/18 Albuterol Inhaler [Ventolin Hfa 2 puff INHALATION RT-Q6H PRN 06/10/18 11/18/18 Inhaler] Montelukast [Singulair] 10 mg PO DAILY 06/28/18 11/18/18 Cholecalciferol (Vitamin D3) 10,000 unit PO DAILY 07/23/18 11/18/18 [Vitamin D3] DULoxetine HCL [Cymbalta] 60 mg PO DAILY 08/15/18 11/18/18 Furosemide [Lasix] 40 mg PO DAILY 08/15/18 11/18/18 Furosemide [Lasix] 80 mg PO HS 08/15/18 11/18/18 Gabapentin [Neurontin] 300 mg PO BID 08/15/18 11/18/18 Potassium Chloride ER [K-Dur 20] 20 meq PO DAILY 08/15/18 11/18/18 Dicyclomine [Bentyl] 10 mg PO Q6H PRN 11/05/18 11/18/18 Ferrous Sulfate [Feosol] 325 mg PO BID 11/05/18 11/18/18 Lactobacillus Acidophilus 1 tab PO BID 11/05/18 11/18/18 [Acidophilus] Miconazole 2% Cream [Monistat-Derm] 1 applic TOPICAL TID 11/05/18 11/18/18 Oxybutynin ER [Ditropan Xl] 10 mg PO DAILY 11/05/18 11/18/18 tiZANidine [Zanaflex] 4 mg PO QAM 11/05/18 11/18/18 QUEtiapine [SEROquel] 200 mg PO HS 11/18/18 11/18/18 rOPINIRole HCL 4 mg PO BID 11/18/18 11/18/18 tiZANidine [Zanaflex] 8 mg PO HS 11/18/18 11/18/18 Previous Rx's Medication Instructions Recorded Rivaroxaban [Xarelto] 20 mg PO DAILY 90 Days #90 tab 11/18/17 Magnesium Oxide 400 mg PO BID #6 tablet 11/18/18 Allergies Allergy/AdvReac Type Severity Reaction Status Date / Time buspirone [From BuSpar] Allergy Unknown Verified 11/18/18 15:05 haloperidol [From Haldol] Allergy Swelling Verified 11/18/18 15:05 iodine Allergy Swelling Verified 11/18/18 15:05 Penicillins Allergy Swelling Verified 11/18/18 15:05 prochlorperazine Allergy Rash/Hives Verified 11/18/18 15:05 Sulfa (Sulfonamide Allergy Rash/Hives Verified 11/18/18 15:05 Antibiotics) Tetanus Vaccines and Toxoid Allergy Rash/Hives Verified 11/18/18 15:05 [Tetanus Vaccines & Toxoid] trifluoperazine HCl Allergy Unknown Verified 11/18/18 15:05 [From Stelazine] hydroxyzine [From Vistaril] AdvReac Rash/Hives Verified 11/18/18 15:05 Review of Systems ROS Statement: Those systems with pertinent positive or pertinent negative responses have been documented in the HPI. ROS Other: All systems not noted in ROS Statement are negative. Constitutional: Denies: fever Eyes: Denies: eye pain ENT: Denies: ear pain Respiratory: Denies: cough Cardiovascular: Denies: chest pain (Patient denies chest pain, patient states the discomfort was her left arm and described as spasms) Gastrointestinal: Denies: abdominal pain Genitourinary: Denies: dysuria Musculoskeletal: Denies: back pain Skin: Denies: rash Neurological: Denies: headache Past Medical History Past Medical History: Asthma, Heart Failure, COPD, Diabetes Mellitus, GERD/Reflux, Hyperlipidemia, Hypertension, Musculoskeletal Disorder, Osteoart hritis (OA), Pneumonia, Pulmonary Embolus (PE), Thyroid Disorder Additional Past Medical History / Comment(s): chronic low back pain, herniated discs, RLS, leg edema, anemia, gout bilateral feet, hypothyroid, UTIs History of Any Multi-Drug Resistant Organisms: None Reported Past Surgical History: Bariatric Surgery, Heart Catheterization, Hernia Repair, Orthopedic Surgery Additional Past Surgical History / Comment(s): Total Right knee replacement, 3 abdominal hernia repairs, left hip repair d/t fracture, gastric bypass/revision, colonoscopy. Past Anesthesia/Blood Transfusion Reactions: No Reported Reaction Past Psychological History: Anxiety, Bipolar, Depression, Panic Disorder, PTSD Smoking Status: Never smoker Past Alcohol Use History: Occasional Past Drug Use History: None Reported - Past Family History Mother Family Medical History: Cancer Additional Family Medical History / Comment(s): lung cancer Father Family Medical History: Diabetes Mellitus Additional Family Medical History / Comment(s): "my dad from a blood clot that traveled from his leg to his lung and also caused a heart attack." Brother(s) Family Medical History: Diabetes Mellitus Sister(s) Additional Family Medical History / Comment(s): "her heart races too fast" General Exam Limitations: no limitations General appearance: alert, in no apparent distress Head exam: Present: atraumatic Eye exam: Present: normal appearance, PERRL ENT exam: Present: normal oropharynx Neck exam: Present: normal inspection Respiratory exam: Present: normal lung sounds bilaterally. Absent: chest wall tenderness Cardiovascular Exam: Present: regular rate, normal rhythm Expanded Peripheral pulses: 2+: Radial (R), Radial (L), Dorsalis Pedis (R), Dorsalis Ped is (L) GI/Abdominal exam: Present: soft. Absent: tenderness Extremities exam: Present: normal inspection, full ROM, other (Left arm with full range of motion, no tenderness, no swelling, no erythema. Cap refill less than 2 seconds. Distally extremity is neurovascular intact. Good sensation. Good strength). Absent: tenderness Neurological exam: Present: alert. Absent: motor sensory deficit Psychiatric exam: Present: normal affect, normal mood Skin exam: Present: normal color. Absent: rash, erythema Course Vital Signs 11/18/18 11/18/18 13:26 15:04 Temperature 97.9 F Pulse Rate 99 77 Respiratory 20 16 Rate Blood Pressure 128/72 132/74 O2 Sat by Pulse 96 96 Oximetry EKG Findings - EKG Comments: EKG Findings:: Normal sinus rhythm 87. CO 140. QRS 92. QT 376. QTc 452. Normal axis. Normal QRS. No acute ST change. Medical Decision Making - Medical Decision Making Patient reevaluated and remained symptom-free. Patient is updated on results and plan. - Lab Data Result diagrams: 11/18/18 13:45 11/18/18 13:45 Lab Results 11/18/18 11/18/18 11/18/18 Range/Units 13:45 13:45 13:45 WBC 9.0 (3.8-10.6) k/uL RBC 4.62 (3.80-5.40) m/uL Hgb 11.3 L D (11.4-16.0) gm/dL Hct 36.8 (34.0-46.0) % MCV 79.5 L D (80.0-100.0) fL MCH 24.5 L (25.0-35.0) pg MCHC 30.8 L (31.0-37.0) g/dL RDW 20.7 H (11.5-15.5) % Plt Count 404 (150-450) k/uL Neutrophils % 76 % Lymphocytes % 15 % Monocytes % 5 % Eosinophils % 2 % Basophils % 0 % Neutrophils # 6.8 (1.3-7.7) k/uL Lymphocytes # 1.3 (1.0-4.8) k/uL Monocytes # 0.5 (0-1.0) k/uL Eosinophils # 0.1 (0-0.7) k/uL Basophils # 0.0 (0-0.2) k/uL Hypochromasia Marked Anisocytosis Moderate Microcytosis Slight PT 11.1 (9.0-12.0) sec INR 1.1 (<1.2) APTT 28.6 (22.0-30.0) sec Sodium 140 (137-145) mmol/L Potassium 4.2 (3.5-5.1) mmol/L Chloride 99 (98-107) mmol/L Carbon Dioxide 30 (22-30) mmol/L Anion Gap 11 mmol/L BUN 23 H (7-17) mg/dL Creatinine 0.99 (0.52-1.04) mg/dL Est GFR (CKD-EPI)AfAm 73 (>60 ml/min/1.73 sqM) Est GFR (CKD-EPI)NonAf 64 (>60 ml/min/1.73 sqM) Glucose 57 L (74-99) mg/dL Calcium 9.6 (8.4-10.2) mg/dL Magnesium 1.5 L (1.6-2.3) mg/dL Total Bilirubin 0.4 (0.2-1.3) mg/dL AST 28 (14-36) U/L ALT 31 (9-52) U/L Alkaline Phosphatase 84 (38-126) U/L Creatine Kinase 40 (30-135) U/L Troponin I (0.000-0.034) ng/mL Total Protein 7.5 (6.3-8.2) g/dL Albumin 4.3 (3.5-5.0) g/dL 11/18/18 Range/Units 13:45 WBC (3.8-10.6) k/uL RBC (3.80-5.40) m/uL Hgb (11.4-16.0) gm/dL Hct (34.0-46.0) % MCV (80.0-100.0) fL MCH (25.0-35.0) pg MCHC (31.0-37.0) g/dL RDW (11.5-15.5) % Plt Count (150-450) k/uL Neutrophils % % Lymphocytes % % Monocytes % % Eosinophils % % Basophils % % Neutrophils # (1.3-7.7) k/uL Lymphocytes # (1.0-4.8) k/uL Monocytes # (0-1.0) k/uL Eosinophils # (0-0.7) k/uL Basophils # (0-0.2) k/uL Hypochromasia Anisocytosis Microcytosis PT (9.0-12.0) sec INR (<1.2) APTT (22.0-30.0) sec Sodium (137-145) mmol/L Potassium (3.5-5.1) mmol/L Chloride (98-107) mmol/L Carbon Dioxide (22-30) mmol/L Anion Gap mmol/L BUN (7-17) mg/dL Creatinine (0.52-1.04) mg/dL Est GFR (CKD-EPI)AfAm (>60 ml/min/1.73 sqM) Est GFR (CKD-EPI)NonAf (>60 ml/min/1.73 sqM) Glucose (74-99) mg/dL Calcium (8.4-10.2) mg/dL Magnesium (1.6-2.3) mg/dL Total Bilirubin (0.2-1.3) mg/dL AST (14-36) U/L ALT (9-52) U/L Alkaline Phosphatase (38-126) U/L Creatine Kinase (30-135) U/L Troponin I <0.012 (0.000-0.034) ng/mL Total Protein (6.3-8.2) g/dL Albumin (3.5-5.0) g/dL Disposition Clinical Impression: Muscle spasm, Hypomagnesemia Disposition: HOME SELF-CARE Condition: Stable Instructions (If sedation given, give patient instructions): Muscle Spasm (ED), Hypomagnesemia (ED) Additional Instructions: Please follow-up with primary care physician in the next day or 2 for recheck. Return for increased spasms, chest pain, worsening symptoms or other concerns. You will need to have your magnesium level rechecked within the next week. Prescriptions: Magnesium Oxide 400 mg PO BID #6 tablet Is patient prescribed a controlled substance at d/c from ED?: No Referrals: [facility] [Primary Care Provider] - 1-2 days Time of Disposition: 15:28
--- NOTE | 2018-11-18 14:19 | XR ---
EXAMINATION TYPE: XR chest 2V DATE OF EXAM: 11/18/2018 COMPARISON: 11/12/2018 HISTORY: 58-year-old female with chest pain TECHNIQUE: AP and lateral views FINDINGS: Low lung volumes with crowded vascular markings. Large appearance to the right main pulmonary artery on the lateral view. Heart appears mildly enlarged. Diffuse interstitial prominence main part be due to AP portable technique and magnification from large patient body habitus. Lung bases are underpenet rated and not well assessed. No obvious consolidation. No pleural effusion. IMPRESSION: Portable, under penetrated exam further limited by large body habitus. Hypoventilatory changes with b orderline cardiomegaly.
[2018-11-18 14:22] LABS: Albumin 4.3 g/dL (3.5-5.0); Calcium 9.6 mg/dL (8.4-10.2); Magnesium 1.5 mg/dL (1.6-2.3); Potassium 4.2 mmol/L (3.5-5.1); Total Bilirubin 0.4 mg/dL (0.2-1.3); Total Protein 7.5 g/dL (6.3-8.2)
[2018-11-18 14:25] LABS: INR 1.1 (<1.2); Partial Thromboplastin Time 28.6 sec (22.0-30.0); Prothrombin Time 11.1 sec (9.0-12.0)
[2018-11-18 14:33] LABS: Anisocytosis Moderate; Basophils % (A) 0 %; Eosinophils # (A) 0.1 k/uL (0-0.7); Eosinophils % (A) 2 %; HCT 36.8 % (34.0-46.0); Hypochromasia Marked; Lymphocytes # (A) 1.3 k/uL (1.0-4.8); Lymphocytes % (A) 15 %; MCH 24.5 pg (25.0-35.0); MCHC 30.8 g/dL (31.0-37.0); Microcytosis Slight; Monocytes # (A) 0.5 k/uL (0-1.0); Monocytes % (A) 5 %; Neutrophils # (A) 6.8 k/uL (1.3-7.7); Neutrophils % (A) 76 %; Platelet Count 404 k/uL (150-450); RBC 4.62 m/uL (3.80-5.40); RDW 20.7 % (11.5-15.5)
[2018-11-18 14:35] LABS: HGB 11.3 gm/dL (11.4-16.0)
[2018-11-18 14:36] LABS: MCV 79.5 fL (80.0-100.0)
[2018-11-18] MEDS ORDERED: MAGNESIUM OXIDE 400 MG TAB PO STA (15:21)
[2018-11-18 15:41] VITALS: BP 126/82; PULSE 93; RESP 18
== END 2018-11-18 16:00 | disposition home or self-care (01) ==
LOC: EC 13:25
DX: E83.42 Hypomagnesemia (principal); J44.9 Chronic obstructive pulmonary disease, unspecified; I11.0 Hypertensive heart disease with heart failure; I50.9 Heart failure, unspecified; K21.9 Gastro-esophageal reflux disease without esophagitis; E78.5 Hyperlipidemia, unspecified; G25.81 Restless legs syndrome; E03.9 Hypothyroidism, unspecified; D64.9 Anemia, unspecified; M19.90 Unspecified osteoarthritis, unspecified site; F41.9 Anxiety disorder, unspecified; F32.9 Major depressive disorder, single episode, unspecified; F43.10 Post-traumatic stress disorder, unspecified; Z95.818 Presence of other cardiac implants and grafts; Z96.651 Presence of right artificial knee joint; Z79.890 Hormone replacement therapy; Z79.899 Other long term (current) drug therapy; Z88.8 Allergy status to other drugs, medicaments and biological substances; Z88.0 Allergy status to penicillin; Z88.2 Allergy status to sulfonamides; Z88.7 Allergy status to serum and vaccine; Z91.048 Other nonmedicinal substance allergy status
CPT/HCPCS: 36415; 71046; 80053; 82550; 83735; 84484; 85025; 85610; 85730; 93005; 99284

== ENCOUNTER 2018-12-07 14:28 | Emergency (ER) | payer MEDICARE, OTHER ==
[2018-12-07 14:37] VITALS: RESP 18; TEMP 98.8
[2018-12-07] MEDS ORDERED: SODIUM CHLORIDE 0.9% 1,000 ML IV SCH (15:00)
[2018-12-07 15:20] LABS: Anisocytosis Slight; Basophils % (A) 1 %; Eosinophils # (A) 0.2 k/uL (0-0.7); Eosinophils % (A) 3 %; HCT 34.9 % (34.0-46.0); HGB 11.4 gm/dL (11.4-16.0); Hypochromasia Slight; Lymphocytes # (A) 1.6 k/uL (1.0-4.8); Lymphocytes % (A) 20 %; MCH 24.9 pg (25.0-35.0); MCHC 32.8 g/dL (31.0-37.0); MCV 76.1 fL (80.0-100.0); Mean Platelet Volume 8.1; Microcytosis Moderate; Monocytes # (A) 0.5 k/uL (0-1.0); Monocytes % (A) 7 %; Neutrophils # (A) 5.4 k/uL (1.3-7.7); Neutrophils % (A) 67 %; Platelet Count 363 k/uL (150-450); RBC 4.59 m/uL (3.80-5.40); RDW 18.9 % (11.5-15.5); WBC 8.1 k/uL (3.8-10.6)
[2018-12-07] MEDS ORDERED: LORazepam 1 MG TAB PO STA (15:22)
[2018-12-07 15:30] LABS: Albumin 3.7 g/dL (3.5-5.0); Calcium 9.2 mg/dL (8.4-10.2); Magnesium 1.6 mg/dL (1.6-2.3); Potassium 3.6 mmol/L (3.5-5.1); Total Bilirubin 0.4 mg/dL (0.2-1.3); Total Protein 6.7 g/dL (6.3-8.2)
[2018-12-07] MEDS ORDERED: SODIUM CHLORIDE 0.9% 500 ML 500 ML IV ONE (15:43)
--- NOTE | 2018-12-07 15:52 | ED ---
Recheck HPI - General Chief Complaint: Recheck/Abnormal Lab/Rx Stated Complaint: Leg cramps Time Seen by Provider: 12/07/18 14:48 Source: patient Mode of arrival: EMS Limitations: no limitations - History of Present Illness Initial Comments: 58-year-old female that extensive past medical history well known to the emergency department presenting today for chief complaint of lab recheck. Patient states she has been fatigued and has had some leg cramping, she states she was discharged yesterday from [facility] after being admitted for hypokalemia. Since that she was given intravenous as well as oral potassium while admitted inpatient. Patient states she is discharged with oral supplement because she could no longer tolerate IV potassium replacement due to the burning sensation. Patient states she presented because she wanted make sure that her potassium was within normal limits. Remaining review of systems negative, patient denies any recent fever, chills, shortness of breath, chest pain, back pain, abdominal pain, nausea or vomiting, numbness or tingling, dysuria or hematuria, constipation or diarrhea, no not, hematochezia headaches or visual changes, or any other complaints. Upon arrival patient's vital signs within normal limits. Patient is well-appearing. - Related Data Home Medications Medication Instructions Recorded Confirmed Atorvastatin [Lipitor] 10 mg PO HS 06/07/17 11/18/18 Carvedilol [Coreg] 25 mg PO BID 06/07/17 11/18/18 Loratadine [Claritin] 10 mg PO DAILY 06/07/17 11/18/18 Multivitamins, Thera [Multivitamin 1 tab PO DAILY 06/07/17 11/18/18 (formulary)] Omeprazole 20 mg PO DAILY 06/07/17 11/18/18 Levothyroxine Sodium [Synthroid] 137 mcg PO DAILY 10/20/17 11/18/18 Metolazone [Zaroxolyn] 2.5 mg PO DAILY 06/06/18 11/18/18 Albuterol Inhaler [Ventolin Hfa 2 puff INHALATION RT-Q6H PRN 06/10/18 11/18/18 Inhaler] Montelukast [Singulair] 10 mg PO DAILY 06/28/18 11/18/18 Cholecalciferol (Vitamin D3) 10,000 unit PO DAILY 07/23/18 11/18/18 [Vitamin D3] DULoxetine HCL [Cymbalta] 60 mg PO DAILY 08/15/18 11/18/18 Furosemide [Lasix] 40 mg PO DAILY 08/15/18 11/18/18 Furosemide [Lasix] 80 mg PO HS 08/15/18 11/18/18 Gabapentin [Neurontin] 300 mg PO BID 08/15/18 11/18/18 Potassium Chloride ER [K-Dur 20] 20 meq PO DAILY 08/15/18 11/18/18 Dicyclomine [Bentyl] 10 mg PO Q6H PRN 11/05/18 11/18/18 Ferrous Sulfate [Feosol] 325 mg PO BID 11/05/18 11/18/18 Lactobacillus Acidophilus 1 tab PO BID 11/05/18 11/18/18 [Acidophilus] Miconazole 2% Cream [Monistat-Derm] 1 applic TOPICAL TID 11/05/18 11/18/18 Oxybutynin ER [Ditropan Xl] 10 mg PO DAILY 11/05/18 11/18/18 tiZANidine [Zanaflex] 4 mg PO QAM 11/05/18 11/18/18 QUEtiapine [SEROquel] 200 mg PO HS 11/18/18 11/18/18 rOPINIRole HCL 4 mg PO BID 11/18/18 11/18/18 tiZANidine [Zanaflex] 8 mg PO HS 11/18/18 11/18/18 Previous Rx's Medication Instructions Recorded Rivaroxaban [Xarelto] 20 mg PO DAILY 90 Days #90 tab 11/18/17 Magnesium Oxide 400 mg PO BID #6 tablet 11/18/18 Allergies Allergy/AdvReac Type Severity Reaction Status Date / Time buspirone [From BuSpar] Allergy Unknown Verified 11/18/18 15:05 haloperidol [From Haldol] Allergy Swelling Verified 11/18/18 15:05 iodine Allergy Swelling Verified 11/18/18 15:05 Penicillins Allergy Swelling Verified 11/18/18 15:05 prochlorperazine Allergy Rash/Hives Verified 11/18/18 15:05 Sulfa (Sulfonamide Allergy Rash/Hives Verified 11/18/18 15:05 Antibiotics) Tetanus Vaccines and Toxoid Allergy Rash/Hives Verified 11/18/18 15:05 [Tetanus Vaccines & Toxoid] trifluoperazine HCl Allergy Unknown Verified 11/18/18 15:05 [From Stelazine] hydroxyzine [From Vistaril] AdvReac Rash/Hives Verified 11/18/18 15:05 Review of Systems ROS Statement: Those systems with pertinent positive or pertinent negative responses have been documented in the HPI. ROS Other: All systems not noted in ROS Statement are negative. Past Medical History Past Medical History: Asthma, Heart Failure, COPD, Diabetes Mellitus, G ERD/Reflux, Hyperlipidemia, Hypertension, Musculoskeletal Disorder, Osteoarthritis (OA), Pneumonia, Pulmonary Embolus (PE), Thyroid Disorder Additional Past Medical History / Comment(s): chronic low back pain, herniated discs, RLS, leg edema, anemia, gout bilateral feet, hypothyroid, UTIs History of Any Multi-Drug Resistant Organisms: None Reported Past Surgical History: Bariatric Surgery, Heart Catheterization, Hernia Repair, Orthopedic Surgery Additional Past Surgical History / Comment(s): Total Right knee replacement, 3 abdominal hernia repairs, left hip repair d/t fracture, gastric bypass/revision, colonoscopy. Past Anesthesia/Blood Transfusion Reactions: No Reported Reaction Past Psychological History: Anxiety, Bipolar, Depression, Panic Disorder, PTSD Smoking Status: Never smoker Past Alcohol Use History: Occasional Past Drug Use History: None Reported - Past Family History Mother Family Medical History: Cancer Additional Family Medical History / Comment(s): lung cancer Father Family Medical History: Diabetes Mellitus Additional Family Medical History / Comment(s): "my dad from a blood clot that traveled from his leg to his lung and also caused a heart attack." Brother(s) Family Medical History: Diabetes Mellitus Sister(s) Additional Family Medical History / Comment(s): "her heart races too fast" General Exam - General Exam Comments Initial Comments: General: The patient is awake and alert, in no distress, and does not appear acutely ill. Eye: +3 mm pupils are equal, round and reactive to light, extra-ocular movements are intact. No nystagmus. There is normal conjunctiva bilaterally. No signs of icterus. Ears, nose, mouth and throat: There are moist mucous membranes and no oral lesions. Neck: The neck is supple, there is no tenderness or JVD. Cardiovascular: There is a regular rate and rhythm. No murmur, rub or gallop is appreciated. Respiratory: Lungs are clear to auscultation, respirations are non-labored, breath sounds are equal. No wheezes, stridor, rales, or rhonchi. Gastrointestinal: Soft, non-distended, non-tender abdomen without masses or organomegaly noted. There is no rebound or guarding present. No CVA tenderness. Bowel sounds are unremarkable. Musculoskeletal: Normal ROM, no tenderness. Strength 5/5. Sensation intact. Radial pulses equal bilaterally 2+. Neurological: A&O x 3. CN II-XII intact, There are no obvious motor or sensory deficits. Coordination appears grossly intact. Speech is normal. Skin: Skin is warm and dry and no rashes or lesions are noted. Psychiatric: Cooperative, appropriate mood & affect, normal judgment. Limitations: no limitations Course Vital Signs 12/07/18 14:33 Temperature 98.8 F Pulse Rate 94 Respiratory 18 Rate Blood Pressure 133/84 O2 Sat by Pulse 98 Oximetry Medical Decision Making - Medical Decision Making 58yo female well-known to the emergency department. Patient presented for re check of laboratory studies. States she is discharged with hypokalemia. Patient states she's had some fatigue as well as cramping. Patient states she has not been drinking as much water she should. Patient is given IV fluids in the emergency department. Potassium 3.6. Within normal limits. EKG revealed no acute abnormality's. No hyperacute T waves. Patient appears well. BUN elevated, Cr WNL pt denies melena, hematochezia, abdominal pain, diarrhea. HgB WNL, improved from recent values. I discussed the case with her provider Dr. Zamarripa at this time we feel patient is stable for discharge with outpatient follow-up. Findings were discussed the patient, she is agreeable discharge at this time. Pt discharged appearing well. - Lab Data Result diagrams: 12/07/18 14:43 12/07/18 14:43 Lab Results 12/07/18 12/07/18 Range/Units 14:43 14:43 WBC 8.1 (3.8-10.6) k/uL RBC 4.59 (3.80-5.40) m/uL Hgb 11.4 (11.4-16.0) gm/dL Hct 34.9 (34.0-46.0) % MCV 76.1 L (80.0-100.0) fL MCH 24.9 L (25.0-35.0) pg MCHC 32.8 (31.0-37.0) g/dL RDW 18.9 H (11.5-15.5) % Plt Count 363 (150-450) k/uL Neutrophils % 67 % Lymphocytes % 20 % Monocytes % 7 % Eosinophils % 3 % Basophils % 1 % Neutrophils # 5.4 (1.3-7.7) k/uL Lymphocytes # 1.6 (1.0-4.8) k/uL Monocytes # 0.5 (0-1.0) k/uL Eosinophils # 0.2 (0-0.7) k/uL Basophils # 0.0 (0-0.2) k/uL Hypochromasia Slight Anisocytosis Slight Microcytosis Moderate Sodium 138 (137-145) mmol/L Potassium 3.6 (3.5-5.1) mmol/L Chloride 94 L (98-107) mmol/L Carbon Dioxide 32 H (22-30) mmol/L Anion Gap 12 mmol/L BUN 49 H (7-17) mg/dL Creatinine 0.93 (0.52-1.04) mg/dL Est GFR (CKD-EPI)AfAm 80 (>60 ml/min/1.73 sqM) Est GFR (CKD-EPI)NonAf 69 (>60 ml/min/1.73 sqM) Glucose 87 (74-99) mg/dL Calcium 9.2 (8.4-10.2) mg/dL Magnesium 1.6 (1.6-2.3) mg/dL Total Bilirubin 0.4 (0.2-1.3) mg/dL AST 32 (14-36) U/L ALT 24 (9-52) U/L Alkaline Phosphatase 93 (38-126) U/L Total Protein 6.7 (6.3-8.2) g/dL Albumin 3.7 (3.5-5.0) g/dL - EKG Data EKG Comments: Ventricular rate 86 4 bpm, SD interval 150 ms, QRS scientologist 80, QT/QTC 3 72/439 ms. This is normal sinus normal EKG. No hyperacute T waves. No ST elevation or depression. He was interpreted by myself as well as attending provider Dr. Zamarripa. Disposition Clinical Impression: Fatigue, History of hypokalemia Disposition: HOME SELF-CARE Condition: Good Instructions (If sedation given, give patient instructions): Potassium Chloride (By mouth), Hypokalemia (ED) Additional Instructions: Please use medication as discussed. Please follow-up with family doctor in the next 2 days.. Please return to emergency room if the symptoms increase or worsen or for any other concerns. Is patient prescribed a controlled substance at d/c from ED?: No Referrals: [facility] [Primary Care Provider] - 1-2 days Time of Disposition: 16:01
[2018-12-07 16:58] VITALS: BP 138/80; PULSE 93
== END 2018-12-07 17:11 | disposition home or self-care (01) ==
LOC: EC 14:28
DX: R53.83 Other fatigue (principal); Z86.2 Personal history of diseases of the blood and blood-forming organs and certain disorders involving the immune mechanism; R25.2 Cramp and spasm; J44.9 Chronic obstructive pulmonary disease, unspecified; I11.0 Hypertensive heart disease with heart failure; I50.9 Heart failure, unspecified; E78.5 Hyperlipidemia, unspecified; E03.9 Hypothyroidism, unspecified; M19.90 Unspecified osteoarthritis, unspecified site; G25.81 Restless legs syndrome; D64.9 Anemia, unspecified; F31.9 Bipolar disorder, unspecified; F41.9 Anxiety disorder, unspecified; Z88.0 Allergy status to penicillin; Z88.2 Allergy status to sulfonamides; Z88.7 Allergy status to serum and vaccine; Z88.8 Allergy status to other drugs, medicaments and biological substances; Z91.048 Other nonmedicinal substance allergy status; Z79.890 Hormone replacement therapy; Z79.899 Other long term (current) drug therapy; Z87.01 Personal history of pneumonia (recurrent); Z96.651 Presence of right artificial knee joint; Z95.818 Presence of other cardiac implants and grafts; Z87.440 Personal history of urinary (tract) infections; Z83.2 Family history of diseases of the blood and blood-forming organs and certain disorders involving the immune mechanism
CPT/HCPCS: 36415; 80053; 83735; 85025; 93005; 96360; 99284

== ENCOUNTER 2018-12-15 18:03 | Emergency (ER) | payer MEDICARE, OTHER ==
[2018-12-15 18:44] LABS: Anisocytosis Slight; Basophils % (A) 0 %; Eosinophils # (A) 0.2 k/uL (0-0.7); Eosinophils % (A) 2 %; HGB 11.3 gm/dL (11.4-16.0); Lymphocytes # (A) 2.2 k/uL (1.0-4.8); Lymphocytes % (A) 21 %; MCH 25.1 pg (25.0-35.0); MCHC 32.2 g/dL (31.0-37.0); MCV 77.9 fL (80.0-100.0); Mean Platelet Volume 7.2; Microcytosis Moderate; Monocytes # (A) 0.5 k/uL (0-1.0); Monocytes % (A) 4 %; Neutrophils # (A) 7.3 k/uL (1.3-7.7); Neutrophils % (A) 70 %; Platelet Count 314 k/uL (150-450); RBC 4.49 m/uL (3.80-5.40); RDW 19.4 % (11.5-15.5); WBC 10.4 k/uL (3.8-10.6)
[2018-12-15 18:58] LABS: Calcium 9.1 mg/dL (8.4-10.2); Magnesium 1.3 mg/dL (1.6-2.3); Potassium 3.4 mmol/L (3.5-5.1); Total Bilirubin 0.4 mg/dL (0.2-1.3); Total Protein 6.8 g/dL (6.3-8.2)
[2018-12-15] MEDS ORDERED: MAGNESIUM OXIDE 400 MG TAB PO STA (19:10)
--- NOTE | 2018-12-15 19:36 | ED ---
Lower Extremity Injury HPI - General Chief Complaint: Extremity Injury, Lower Stated Complaint: muscle cramps Time Seen by Provider: 12/15/18 18:06 Source: patient Mode of arrival: EMS Limitations: no limitations - History of Present Illness Initial Comments: 58-year-old female presenting today for leg cramping and fatigue. She states this has been a chronic issue she is addressing this with her primary care provider she states this is not helping she continues to have leg cramping for the past 2 days. Patient states she has been increasing oral intake. She states she thinks is due to her "water pill". Patient was concerned she may have low potassium and presented today to emergency department for further evaluation. Remaining review of system negative, patient denies any recent fever, chills, shortness of breath, chest pain, back pain, abdominal pain, nausea or vomiting, numbness or tingling, dysuria or hematuria, constipation or diarrhea, headaches or visual changes, or any other complaints. - Related Data Home Medications Medication Instructions Recorded Confirmed Atorvastatin [Lipitor] 10 mg PO HS 06/07/17 12/15/18 Carvedilol [Coreg] 25 mg PO BID 06/07/17 12/15/18 Loratadine [Claritin] 10 mg PO DAILY 06/07/17 12/15/18 Multivitamins, Thera [Multivitamin 1 tab PO DAILY 06/07/17 12/15/18 (formulary)] Omeprazole 20 mg PO DAILY 06/07/17 12/15/18 Levothyroxine Sodium [Synthroid] 137 mcg PO DAILY 10/20/17 12/15/18 Albuterol Inhaler [Ventolin Hfa 2 puff INHALATION RT-Q6H PRN 06/10/18 12/15/18 Inhaler] Montelukast [Singulair] 10 mg PO DAILY 06/28/18 12/15/18 Cholecalciferol (Vitamin D3) 10,000 unit PO DAILY 07/23/18 12/15/18 [Vitamin D3] DULoxetine HCL [Cymbalta] 60 mg PO DAILY 08/15/18 12/15/18 Gabapentin [Neurontin] 300 mg PO BID 08/15/18 12/15/18 Dicyclomine [Bentyl] 10 mg PO Q6H PRN 11/05/18 12/15/18 Ferrous Sulfate [Feosol] 325 mg PO BID 11/05/18 12/15/18 Lactobacillus Acidophilus 1 tab PO BID 11/05/18 12/15/18 [Acidophilus] Miconazole 2% Cream [Monistat-Derm] 1 applic TOPICAL TID 11/05/18 12/15/18 Oxybutynin ER [Ditropan Xl] 10 mg PO DAILY 11/05/18 12/15/18 tiZANidine [Zanaflex] 4 mg PO QAM 11/05/18 12/15/18 QUEtiapine [SEROquel] 200 mg PO HS 11/18/18 12/15/18 rOPINIRole HCL 4 mg PO BID 11/18/18 12/15/18 tiZANidine [Zanaflex] 8 mg PO HS 11/18/18 12/15/18 Potassium Chloride ER [K-Dur 20] 20 meq PO BID 12/15/18 12/15/18 Torsemide [Demadex] 50 mg PO SUTUTHSA 12/15/18 12/15/18 Torsemide [Demadex] 100 mg PO MOWEFR 12/15/18 12/15/18 Previous Rx's Medication Instructions Recorded Rivaroxaban [Xarelto] 20 mg PO DAILY 90 Days #90 tab 11/18/17 Magnesium Oxide 400 mg PO BID #6 tablet 11/18/18 Allergies Allergy/AdvReac Type Severity Reaction Status Date / Time buspirone [From BuSpar] Allergy Unknown Verified 12/15/18 18:39 haloperidol [From Haldol] Allergy Swelling Verified 12/15/18 18:39 iodine Allergy Swelling Verified 12/15/18 18:39 Penicillins Allergy Swelling Verified 12/15/18 18:39 prochlorperazine Allergy Rash/Hives Verified 12/15/18 18:39 Sulfa (Sulfonamide Allergy Rash/Hives Verified 12/15/18 18:39 Antibiotics) Tetanus Vaccines and Toxoid Allergy Rash/Hives Verified 12/15/18 18:39 [Tetanus Vaccines & Toxoid] trifluoperazine HCl Allergy Unknown Verified 12/15/18 18:39 [From Stelazine] hydroxyzine [From Vistaril] AdvReac Rash/Hives Verified 12/15/18 18:39 Review of Systems ROS Statement: Those systems with pertinent positive or pertinent negative responses have been documented in the HPI. ROS Other: All systems not noted in ROS Statement are negative. Past Medical History Past Medical History: Asthma, Heart Failure, COPD, Diabetes Mellitus, GERD/Reflux, Hyperlipidemia, Hypertension, Musculoskeletal Disorder, Osteoarthritis (OA), Pneumonia, Pulmonary Embolus (PE), Thyroid Disorder Additional Past Medical History / Comment(s): chronic low back pain, herniated discs, RLS, leg edema, anemia, gout bilateral feet, hypothyroid, UTIs History of Any Multi-Drug Resistant Organisms: None Reported Past Surgical History: Bariatric Surgery, Heart Catheterization, Hernia Repair, Orthopedic Surgery Additional Past Surgical History / Comment(s): Total Right knee replacement, 3 abdominal hernia repairs, left hip repair d/t fracture, gastric bypass/revision, colonoscopy. Past Anesthesia/Blood Transfusion Reactions: No Reported Reaction Past Psychological History: Anxiety, Bipolar, Depression, Panic Disorder, PTSD Smoking Status: Never smoker Past Alcohol Use History: Occasional Past Drug Use History: None Reported - Past Family History Mother Family Medical History: Cancer Additional Family Medical History / Comment(s): lung cancer Father Family Medical History: Diabetes Mellitus Additional Family Medical History / Comment(s): "my dad from a blood clot that traveled from his leg to his lung and also caused a heart attack." Brother(s) Family Medical History: Diabetes Mellitus Sister(s) Additional Family Medical History / Comment(s): "her heart races too fast" General Exam - General Exam Comments Initial Comments: General: The patient is awake and alert, in no distress, and does not appear acutely ill. Eye: Pupils are equal, round and reactive to light, extra-ocular movements are intact. No nystagmus. There is normal conjunctiva bilaterally. No signs of icterus. Ears, nose, mouth and throat: There are moist mucous membranes and no oral lesions. Neck: The neck is supple, there is no tenderness or JVD. Cardiovascular: There is a regular rate and rhythm. No murmur, rub or gallop is appreciated. Respiratory: Lungs are clear to auscultation, respirations are non-labored, breath sounds are equal. No wheezes, stridor, rales, or rhonchi. Gastrointestinal: Soft, non-distended, non-tender abdomen without masses or organomegaly noted. There is no rebound or guarding present. Bowel sounds are unremarkable. Musculoskeletal: Normal ROM, no tenderness. Strength 5/5. Sensation intact. DP pulses equal bilaterally 2+. Neurological: A&O x 3. CN II-XII intact, There are no obvious motor or sensory deficits. Coordination appears grossly intact. Speech is normal. Skin: Skin is warm and dry and no rashes or lesions are noted. No LE edema or erythema Psychiatric: Cooperative, appropriate mood & affect, normal judgment. Limitations: no limitations Course Vital Signs 12/15/18 18:15 Temperature 97.0 F L Pulse Rate 82 Respiratory 16 Rate Blood Pressure 113/58 O2 Sat by Pulse 100 Oximetry Medical Decision Making - Medical Decision Making 58-year-old female. Upon laboratory studies, labs appear to be at baseline. Patient does have mildly decreased magnesium which may possibly attribute patient's symptoms. Patient was provided oral replenishment, as well as IV fluids. Patient began demanding discharge. At this time given patient's lab oratories studies are stable patient appears well vital signs the next couple limits. She does not appear acutely ill. Patient's symptoms have been ongoing for greater than 1 month. The patient is stable for discharge with outpatient management. Patient is able to care as well as discharge denies questions at this time. Patient is discharged appearing well after discussing the case with Dr. Cortés. - Lab Data Result diagrams: 12/15/18 18:26 12/15/18 18:26 Lab Results 12/15/18 12/15/18 Range/Units 18:26 18:26 WBC 10.4 (3.8-10.6) k/uL RBC 4.49 (3.80-5.40) m/uL Hgb 11.3 L (11.4-16.0) gm/dL Hct 35.0 (34.0-46.0) % MCV 77.9 L (80.0-100.0) fL MCH 25.1 (25.0-35.0) pg MCHC 32.2 (31.0-37.0) g/dL RDW 19.4 H (11.5-15.5) % Plt Count 314 (150-450) k/uL Neutrophils % 70 % Lymphocytes % 21 % Monocytes % 4 % Eosinophils % 2 % Basophils % 0 % Neutrophils # 7.3 (1.3-7.7) k/uL Lymphocytes # 2.2 (1.0-4.8) k/uL Monocytes # 0.5 (0-1.0) k/uL Eosinophils # 0.2 (0-0.7) k/uL Basophils # 0.0 (0-0.2) k/uL Anisocytosis Slight Microcytosis Moderate Sodium 137 (137-145) mmol/L Potassium 3.4 L (3.5-5.1) mmol/L Chloride 94 L (98-107) mmol/L Carbon Dioxide 31 H (22-30) mmol/L Anion Gap 12 mmol/L BUN 33 H (7-17) mg/dL Creatinine 0.98 (0.52-1.04) mg/dL Est GFR (CKD-EPI)AfAm 74 (>60 ml/min/1.73 sqM) Est GFR (CKD-EPI)NonAf 64 (>60 ml/min/1.73 sqM) Glucose 98 (74-99) mg/dL Calcium 9.1 (8.4-10.2) mg/dL Magnesium 1.3 L (1.6-2.3) mg/dL Total Bilirubin 0.4 (0.2-1.3) mg/dL AST 26 (14-36) U/L ALT 24 (9-52) U/L Alkaline Phosphatase 101 (38-126) U/L Total Protein 6.8 (6.3-8.2) g/dL Albumin 4.0 (3.5-5.0) g/dL Disposition Clinical Impression: Muscle cramps, Hypomagnesemia Disposition: HOME SELF-CARE Condition: Stable Instructions (If sedation given, give patient instructions): Magnesium Oxide (By mouth), Muscle Cramp (ED) Additional Instructions: Please use medication as discussed. Please follow-up with family doctor in the next 2 days. Please return to emergency room if the symptoms increase or worsen or for any other concerns. Is patient prescribed a controlled substance at d/c from ED?: No Referrals: [facility] [Primary Care Provider] - 1-2 days Time of Disposition: 19:40
[2018-12-15 20:09] VITALS: BP 116/65; PULSE 90; RESP 20; TEMP 97.9
== END 2018-12-15 20:07 | disposition home or self-care (01) ==
LOC: EC 18:03
DX: E83.42 Hypomagnesemia (principal); I11.0 Hypertensive heart disease with heart failure; I50.9 Heart failure, unspecified; J44.9 Chronic obstructive pulmonary disease, unspecified; K21.9 Gastro-esophageal reflux disease without esophagitis; E78.5 Hyperlipidemia, unspecified; G25.81 Restless legs syndrome; D64.9 Anemia, unspecified; E03.9 Hypothyroidism, unspecified; M19.90 Unspecified osteoarthritis, unspecified site; F41.9 Anxiety disorder, unspecified; F32.9 Major depressive disorder, single episode, unspecified; F43.10 Post-traumatic stress disorder, unspecified; Z95.818 Presence of other cardiac implants and grafts; Z96.651 Presence of right artificial knee joint; Z79.890 Hormone replacement therapy; Z79.899 Other long term (current) drug therapy; Z88.8 Allergy status to other drugs, medicaments and biological substances; Z91.048 Other nonmedicinal substance allergy status; Z88.0 Allergy status to penicillin; Z88.2 Allergy status to sulfonamides; Z88.7 Allergy status to serum and vaccine
CPT/HCPCS: 36415; 80053; 83735; 85025; 99283

== ENCOUNTER 2019-01-11 11:15 | Emergency (ER) | payer MEDICARE, OTHER ==
[2019-01-11] MEDS ORDERED: IPRATROPIUM-ALBUTEROL 3 ML NEB INHALATION STA (11:38)
--- NOTE | 2019-01-11 11:40 | ED ---
General Adult HPI - General Stated complaint: SOB Time Seen by Provider: 01/11/19 11:18 Source: patient, RN notes reviewed Limitations: no limitations - History of Present Illness Initial comments: Patient is a pleasant 58-year-old female presenting to the emergency Department with cough. Symptoms have been occurring for the past couple of days. does have a history of asthma with similar symptoms however could not find her inhaler. Patient is concerned that she may have bronchitis or pneumonia. No fevers. Cough is been dry nonproductive. No leg pain or leg swelling. - Related Data Home Medications Medication Instructions Recorded Confirmed Atorvastatin [Lipitor] 10 mg PO HS 06/07/17 01/11/19 Carvedilol [Coreg] 25 mg PO BID 06/07/17 01/11/19 Loratadine [Claritin] 10 mg PO DAILY 06/07/17 01/11/19 Multivitamins, Thera [Multivitamin 1 tab PO DAILY 06/07/17 01/11/19 (formulary)] Omeprazole 20 mg PO DAILY 06/07/17 01/11/19 Levothyroxine Sodium [Synthroid] 137 mcg PO DAILY 10/20/17 01/11/19 Albuterol Inhaler [Ventolin Hfa 2 puff INHALATION RT-Q6H PRN 06/10/18 01/11/19 Inhaler] Montelukast [Singulair] 10 mg PO DAILY 06/28/18 01/11/19 Cholecalciferol (Vitamin D3) 10,000 unit PO DAILY 07/23/18 01/11/19 [Vitamin D3] DULoxetine HCL [Cymbalta] 60 mg PO DAILY 08/15/18 01/11/19 Gabapentin [Neurontin] 300 mg PO BID 08/15/18 01/11/19 Dicyclomine [Bentyl] 10 mg PO Q6H PRN 11/05/18 01/11/19 Ferrous Sulfate [Feosol] 325 mg PO BID 11/05/18 01/11/19 Lactobacillus Acidophilus 1 tab PO BID 11/05/18 01/11/19 [Acidophilus] Miconazole 2% Cream [Monistat-Derm] 1 applic TOPICAL TID 11/05/18 01/11/19 Oxybutynin ER [Ditropan Xl] 10 mg PO DAILY 11/05/18 01/11/19 tiZANidine [Zanaflex] 4 mg PO QAM 11/05/18 01/11/19 QUEtiapine [SEROquel] 200 mg PO HS 11/18/18 01/11/19 rOPINIRole HCL 4 mg PO BID 11/18/18 01/11/19 tiZANidine [Zanaflex] 8 mg PO HS 11/18/18 01/11/19 Potassium Chloride ER [K-Dur 20] 20 meq PO BID 12/15/18 01/11/19 Torsemide [Demadex] 50 mg PO SUTUTHSA 12/15/18 01/11/19 Torsemide [Demadex] 100 mg PO MOWEFR 12/15/18 01/11/19 Previous Rx's Medication Instructions Recorded Rivaroxaban [Xarelto] 20 mg PO DAILY 90 Days #90 tab 11/18/17 Magnesium Oxide 400 mg PO BID #6 tablet 11/18/18 Albuterol Inhaler [Ventolin Hfa 2 puff INHALATION Q4HR PRN #1 01/11/19 Inhaler] inhaler predniSONE 20 mg PO BID #6 tab 01/11/19 Allergies Allergy/AdvReac Type Severity Reaction Status Date / Time buspirone [From BuSpar] Allergy Unknown Verified 01/11/19 11:43 haloperidol [From Haldol] Allergy Swelling Verified 01/11/19 11:43 iodine Allergy Swelling Verified 01/11/19 11:43 Penicillins Allergy Swelling Verified 01/11/19 11:43 prochlorperazine Allergy Rash/Hives Verified 01/11/19 11:43 Sulfa (Sulfonamide Allergy Rash/Hives Verified 01/11/19 11:43 Antibiotics) Tetanus Vaccines and Toxoid Allergy Rash/Hives Verified 01/11/19 11:43 [Tetanus Vaccines & Toxoid] trifluoperazine HCl Allergy Unknown Verified 01/11/19 11:43 [From Stelazine] hydroxyzine [From Vistaril] AdvReac Rash/Hives Verified 01/11/19 11:43 Review of Systems ROS Statement: Those systems with pertinent positive or pertinent negative responses have been documented in the HPI. ROS Other: All systems not noted in ROS Statement are negative. Constitutional: Denies: fever Eyes: Denies: eye pain ENT: Denies: ear pain Respiratory: Reports: cough, dyspnea Cardiovascular: Denies: chest pain Endocrine: Reports: fatigue Gastrointestinal: Denies: abdominal pain Genitourinary: Denies: dysuria Musculoskeletal: Denies: back pain Skin: Denies: rash Neurological: Denies: weakness Past Medical History Past Medical History: Asthma, Heart Failure, COPD, Diabetes Mellitus, GERD/Reflux, Hyperlipidemia, Hypertension, Musculoskeletal Disorder, Osteoarthritis (OA), Pneumonia, Pulmonary Embolus (PE), Thyroid Disorder Additional Past Medical History / Comment(s): chronic low back pain, herniated discs, RLS, leg edema, anemia, gout bilateral feet, hypothyroid, UTIs History of Any Multi-Drug Resistant Organisms: None Reported Past Surgical History: Bariatric Surgery, Heart Catheterization, Hernia Repair, Orthopedic Surgery Additional Past Surgical History / Comment(s): Total Right knee replacement, 3 abdominal hernia repairs, left hip repair d/t fracture, gastric bypass/revision, colonoscopy. Past Anesthesia/Blood Transfusion Reactions: No Reported Reaction Past Psychological History: Anxiety, Bipolar, Depression, Panic Disorder, PTSD Smoking Status: Never smoker Past Alcohol Use History: Occasional Past Drug Use History: None Reported - Past Family History Mother Family Medical History: Cancer Additional Family Medical History / Comment(s): lung cancer Father Family Medical History: Diabetes Mellitus Additional Family Medical History / Comment(s): "my dad from a blood clot that traveled from his leg to his lung and also caused a heart attack." Brother(s) Family Medical History: Diabetes Mellitus Sister(s) Additional Family Medical History / Comment(s): "her heart races too fast" General Exam Limitations: no limitations General appearance: alert, in no apparent distress, obese Head exam: Present: atraumatic Eye exam: Present: normal appearance, PERRL ENT exam: Present: normal oropharynx Neck exam: Present: normal inspection Respiratory exam: Present: wheezes (Expiratory wheeze associated with cough only). Absent: respiratory distress, accessory muscle use Cardiovascular Exam: Present: regular rate, normal rhythm GI/Abdominal exam: Present: soft. Absent: tenderness Extremities exam: Present: normal inspection Neurological exam: Present: alert Psychiatric exam: Present: normal affect, normal mood Skin exam: Present: normal color Course Vital Signs 01/11/19 01/11/19 01/11/19 11:20 11:59 12:11 Temperature 98.7 F Pulse Rate 68 70 72 Respiratory 24 Rate Blood Pressure 130/85 O2 Sat by Pulse 96 Oximetry Medical Decision Making - Medical Decision Making Patient reevaluated and resting comfortably in bed, symptom-free. Lungs are clear to auscultation. Patient is comfortable with discharge home. Patient requests steroids. - Radiology Data Radiology results: image reviewed (Chest x-ray shows no acute process.) Disposition Clinical Impression: Acute exacerbation of chronic obstructive airways disease Disposition: HOME SELF-CARE Condition: Stable Instructions (If sedation given, give patient instructions): COPD (Chronic Obstructive Pulmonary Disease) (ED) Additional Instructions: Please follow-up with primary care physician in the next day or 2 for recheck. Return for difficulty in breathing, fevers, worsening or changing symptoms or other concerns. Prescriptions: predniSONE 20 mg PO BID #6 tab Albuterol Inhaler [Ventolin Hfa Inhaler] 2 puff INHALATION Q4HR PRN #1 inhaler PRN Reason: Dyspnea Is patient prescribed a controlled substance at d/c from ED?: No Referrals: [facility] [Primary Care Provider] - 1-2 days Time of Disposition: 12:42
--- NOTE | 2019-01-11 12:07 | XR ---
EXAMINATION TYPE: XR chest 2V DATE OF EXAM: 01/11/2019 HISTORY: cough. REFERENCE: Previous study dated 11/18/2018. FINDINGS: Study is quite lordotic. Heart is mildly enlarged. Lungs appear clear. There is blunting of the left CP angle. It would be difficult to exclude a small left effusion. IMPRESSION: 1. CARDIOMEGALY. 2. IT WOULD BE DIFFICULT TO EXCLUDE A SMALL LEFT EFFUSION.
[2019-01-11 13:01] VITALS: BP 104/82; PULSE 66; RESP 18; TEMP 98.1
== END 2019-01-11 13:10 | disposition home or self-care (01) ==
LOC: EC 11:15
DX: J44.1 Chronic obstructive pulmonary disease with (acute) exacerbation (principal); E78.5 Hyperlipidemia, unspecified; I11.0 Hypertensive heart disease with heart failure; I50.9 Heart failure, unspecified; K21.9 Gastro-esophageal reflux disease without esophagitis; E03.9 Hypothyroidism, unspecified; D64.9 Anemia, unspecified; G89.29 Other chronic pain; G25.81 Restless legs syndrome; F31.9 Bipolar disorder, unspecified; F41.9 Anxiety disorder, unspecified; Z88.0 Allergy status to penicillin; Z88.2 Allergy status to sulfonamides; Z88.7 Allergy status to serum and vaccine; Z88.8 Allergy status to other drugs, medicaments and biological substances; Z91.048 Other nonmedicinal substance allergy status; Z79.890 Hormone replacement therapy; Z79.899 Other long term (current) drug therapy; Z87.01 Personal history of pneumonia (recurrent); Z86.711 Personal history of pulmonary embolism; Z80.1 Family history of malignant neoplasm of trachea, bronchus and lung; Z95.818 Presence of other cardiac implants and grafts; Z96.651 Presence of right artificial knee joint
CPT/HCPCS: 71046; 94640; 99285

== ENCOUNTER 2019-01-31 19:28 | Emergency (ER) | payer MEDICARE, OTHER ==
[2019-01-31] MEDS ORDERED: HYDROmorphone 1 MG/ML 1 ML SYRINGE IM STA (20:04)
--- NOTE | 2019-01-31 20:05 | ED ---
Extremity Problem HPI - General Chief complaint: Extremity Problem,Nontraumatic Stated complaint: Chest Pain Time Seen by Provider: 01/31/19 19:48 Source: patient, EMS, RN notes reviewed, old records reviewed Mode of arrival: ambulatory Limitations: physical limitation - History of Present Illness Initial comments: This is a 58-year-old female the ER for evaluation. Patient well-known to facility, patient presents to ER for evaluation of right shoulder pain left knee pain. No trauma indicated. Patient is complaints of pain worse with ambulation worse with movement and use. Denies any fevers, no chest pain no shortness of breath. Patient has history of chronic pain MD Complaint: extremity pain, joint pain -: days(s) Location: left, right, upper extremity, knee History of Same: Yes -: Yes arthralgia Radiation: none Severity scale (1-10): 3 Quality: aching Consistency: constant Improves with: nothing Worsens with: weight bearing, walking Associated Symptoms: denies other symptoms - Related Data Home Medications Medication Instructions Recorded Confirmed Atorvastatin [Lipitor] 10 mg PO HS 06/07/17 01/31/19 Carvedilol [Coreg] 25 mg PO BID 06/07/17 01/31/19 Loratadine [Claritin] 10 mg PO DAILY 06/07/17 01/31/19 Multivitamins, Thera [Multivitamin 1 tab PO DAILY 06/07/17 01/31/19 (formulary)] Omeprazole 20 mg PO DAILY 06/07/17 01/31/19 Levothyroxine Sodium [Synthroid] 137 mcg PO DAILY 10/20/17 01/31/19 Montelukast [Singulair] 10 mg PO DAILY 06/28/18 01/31/19 Cholecalciferol (Vitamin D3) 10,000 unit PO DAILY 07/23/18 01/31/19 [Vitamin D3] DULoxetine HCL [Cymbalta] 60 mg PO DAILY 08/15/18 01/31/19 Gabapentin [Neurontin] 300 mg PO BID 08/15/18 01/31/19 Dicyclomine [Bentyl] 10 mg PO Q6H PRN 11/05/18 01/31/19 Ferrous Sulfate [Feosol] 325 mg PO BID 11/05/18 01/31/19 Lactobacillus Acidophilus 1 tab PO BID 11/05/18 01/31/19 [Acidophilus] Miconazole 2% Cream [Monistat-Derm] 1 applic TOPICAL TID 11/05/18 01/31/19 QUEtiapine [SEROquel] 200 mg PO HS 11/18/18 01/31/19 rOPINIRole HCL 4 mg PO BID 11/18/18 01/31/19 Potassium Chloride ER [K-Dur 20] 20 meq PO BID 12/15/18 01/31/19 Torsemide [Demadex] 50 mg PO SUTUTHSA 12/15/18 01/31/19 Torsemide [Demadex] 100 mg PO MOWEFR 12/15/18 01/31/19 Cyanocobalamin (Vitamin B-12) 1,000 mcg PO DAILY 01/31/19 01/31/19 [Vitamin B-12] Previous Rx's Medication Instructions Recorded Rivaroxaban [Xarelto] 20 mg PO DAILY 90 Days #90 tab 11/18/17 Magnesium Oxide 400 mg PO BID #6 tablet 11/18/18 Allergies Allergy/AdvReac Type Severity Reaction Status Date / Time buspirone [From BuSpar] Allergy Unknown Verified 01/31/19 20:07 haloperidol [From Haldol] Allergy Swelling Verified 01/31/19 20:07 iodine Allergy Swelling Verified 01/31/19 20:07 Penicillins Allergy Swelling Verified 01/31/19 20:07 prochlorperazine Allergy Rash/Hives Verified 01/31/19 20:07 Sulfa (Sulfonamide Allergy Rash/Hives Verified 01/31/19 20:07 Antibiotics) Tetanus Vaccines and Toxoid Allergy Rash/Hives Verified 01/31/19 20:07 [Tetanus Vaccines & Toxoid] trifluoperazine HCl Allergy Unknown Verified 01/31/19 20:07 [From Stelazine] hydroxyzine [From Vistaril] AdvReac Rash/Hives Verified 01/31/19 20:07 Review of Systems ROS Statement: Those systems with pertinent positive or pertinent negative responses have been documented in the HPI. ROS Other: All systems not noted in ROS Statement are negative. Past Medical History Past Medical History: Asthma, Heart Failure, COPD, Diabetes Mellitus, GERD/Reflux, Hyperlipidemia, Hypertension, Musculoskeletal Disorder, Osteoarthritis (OA), Pneumonia, Pulmonary Embolus (PE), Thyroid Disorder Additional Past Medical History / Comment(s): chronic low back pain, herniated discs, RLS, leg edema, anemia, gout bilateral feet, hypothyroid, UTIs History of Any Multi-Drug Resistant Organisms: None Reported Past Surgical History: Bariatric Surgery, Heart Catheterization, Hernia Repair, Orthopedic Surgery Additional Past Surgical History / Comment(s): Total Right knee replacement, 3 abdominal hernia repairs, left hip repair d/t fracture, gastric bypass/revision, colonoscopy. Past Anesthesia/Blood Transfusion Reactions: No Reported Reaction Past Psychological History: Anxiety, Bipolar, Depression, Panic Disorder, PTSD Smoking Status: Never smoker Past Alcohol Use History: Occasional Past Drug Use History: None Reported - Past Family History Mother Family Medical History: Cancer Additional Family Medical History / Comment(s): lung cancer Father Family Medical History: Diabetes Mellitus Additional Family Medical History / Comment(s): "my dad from a blood clot that traveled from his leg to his lung and also caused a heart attack." Brother(s) Family Medical History: Diabetes Mellitus Sister(s) Additional Family Medical History / Comment(s): "her heart races too fast" General Exam Limitations: physical limitation General appearance: alert, in no apparent distress Head exam: Present: atraumatic, normocephalic, normal inspection Eye exam: Present: normal appearance, PERRL, EOMI. Absent: scleral icterus, conjunctival injection, periorbital swelling ENT exam: Present: normal exam, mucous membranes moist Neck exam: Present: normal inspection. Absent: tenderness, meningismus, lymphadenopathy Respiratory exam: Present: normal lung sounds bilaterally. Absent: respiratory distress, wheezes, rales, rhonchi, stridor Cardiovascular Exam: Present: regular rate, normal rhythm, normal heart sounds. Absent: systolic murmur, diastolic murmur, rubs, gallop, clicks GI/Abdominal exam: Present: soft, normal bowel sounds. Absent: distended, tenderness, guarding, rebound, rigid Extremities exam: Present: normal inspection, full ROM, normal capillary refill. Absent: tenderness, pedal edema, joint swelling, calf tenderness Back exam: Present: normal inspection Neurological exam: Present: alert, oriented X3, CN II-XII intact Psychiatric exam: Present: normal affect, normal mood Skin exam: Present: warm, dry, intact, normal color. Absent: rash Course Vital Signs 01/31/19 01/31/19 01/31/19 19:32 20:57 21:34 Temperature 97.4 F L 98.2 F Pulse Rate 70 96 77 Respiratory 20 18 16 Rate Blood Pressure 149/75 124/74 O2 Sat by Pulse 95 96 97 Oximetry Medical Decision Making - Medical Decision Making 78 female the ER for evaluation, right shoulder pain left knee pain. No trauma. Likely arthritis related. Patient has no findings on x-ray, can be discharged home - Radiology Data Radiology results: report reviewed (Chest x-ray x-ray shoulder x-ray knee negative for traumatic injury), image reviewed Disposition Clinical Impression: Left shoulder pain, Right knee pain Disposition: HOME SELF-CARE Condition: Good Instructions (If sedation given, give patient instructions): Knee Pain (ED), Shoulder Pain (ED) Is patient prescribed a controlled substance at d/c from ED?: No Referrals: [facility] [Primary Care Provider] - 1-2 days
--- NOTE | 2019-01-31 21:18 | XR ---
EXAMINATION TYPE: XR shoulder complete RT DATE OF EXAM: 01/31/2019 CLINICAL HISTORY: Pain without injury. TECHNIQUE: Three views of the right shoulder are obtained. COMPARISON: None. FINDINGS: Demineralization is present. There is no acute fracture/dislocation evident in the right sh oulder. There is mild to moderate narrowing with mild spurring and acromioclavicular joint. [place] ral joint is maintained. The visualized ribs are intact and unremarkable. IMPRESSION: As above.
--- NOTE | 2019-01-31 21:19 | XR ---
EXAMINATION TYPE: XR knee complete LT DATE OF EXAM: 01/31/2019 CLINICAL HISTORY: Pain. TECHNIQUE: Three views of the right knee are obtained. COMPARISON: Left knee x-ray February 09, 2018. FINDINGS: Exam noted suboptimal film due to patient's large body habitus. There is no acute fracture /dislocation evident in right knee. There is moderate tricompartment joint space loss and spurring. M ild diffuse subcutaneous edema and soft tissue phleboliths are redemonstrated. IMPRESSION: As above, no significant change from prior.
--- NOTE | 2019-01-31 21:20 | XR ---
EXAMINATION TYPE: XR chest 1V DATE OF EXAM: 01/31/2019 COMPARISON: Chest x-ray January 11, 2019. HISTORY: Chest pain. TECHNIQUE: Single frontal view of the chest is obtained. FINDINGS: There is persistent cardiomegaly with central vascular congestion. No new suspicious focal airspace opacity or pleural effusion is seen. Low lung volumes are redemonstrated. The osseous str uctures are intact. IMPRESSION: Cardiomegaly with suspected mild central vascular congestion. No significant change from prior.
[2019-01-31 21:35] VITALS: BP 124/74; PULSE 77; RESP 16
[2019-01-31 22:30] VITALS: TEMP 98.2
== END 2019-01-31 21:35 | disposition home or self-care (01) ==
LOC: EC 19:28
DX: M25.561 Pain in right knee (principal); M25.512 Pain in left shoulder; R07.9 Chest pain, unspecified; J44.9 Chronic obstructive pulmonary disease, unspecified; I11.0 Hypertensive heart disease with heart failure; I50.9 Heart failure, unspecified; K21.9 Gastro-esophageal reflux disease without esophagitis; E03.9 Hypothyroidism, unspecified; F31.9 Bipolar disorder, unspecified; F41.0 Panic disorder [episodic paroxysmal anxiety]; E11.9 Type 2 diabetes mellitus without complications; E78.5 Hyperlipidemia, unspecified; M19.90 Unspecified osteoarthritis, unspecified site; Z79.02 Long term (current) use of antithrombotics/antiplatelets; Z79.890 Hormone replacement therapy; Z79.899 Other long term (current) drug therapy; Z88.0 Allergy status to penicillin; Z88.8 Allergy status to other drugs, medicaments and biological substances; Z91.048 Other nonmedicinal substance allergy status; Z88.2 Allergy status to sulfonamides; Z88.7 Allergy status to serum and vaccine; Z86.711 Personal history of pulmonary embolism; Z98.84 Bariatric surgery status; Z96.651 Presence of right artificial knee joint; Z95.5 Presence of coronary angioplasty implant and graft
CPT/HCPCS: 73030; 73562; 71045; 99285; 96372; J1170

== ENCOUNTER 2019-02-11 17:54 | Emergency (ER) | payer MEDICARE, OTHER ==
[2019-02-11 18:04] VITALS: RESP 18; TEMP 97.9
--- NOTE | 2019-02-11 19:42 | ED ---
General Adult HPI - General Chief complaint: Fall Stated complaint: leg pain Time Seen by Provider: 02/11/19 17:57 Source: patient, EMS, RN notes reviewed, old records reviewed Mode of arrival: EMS - History of Present Illness Initial comments: 58-year-old female patient with past medical history of asthma, COPD, type 2 diabetes, hypertension, hyperlipidemia, prior pulmonary embolism anticoagulated on xaralto, presents to ED after fall approximately one week ago. Patient was that she fell getting into car, fell on her hands and knees. Denies trauma head or neck. Denies any loss of consciousness. Patient comes in here with chief complaint of right calf pain as well as left thigh and knee pain. Patient denies any other complaints at this time due to denies a chest pain shortness with abdominal pain nausea vomiting. Systemic: Pt denies fatigue, fever/chills, rash. Pt denies weakness, night sweats, weight loss. Neuro: Pt denies headache, visual disturbances, syncope or pre-syncope. HEENT: Pt denies ocular discharge or irritation, otalgia, rhinorrhea, pharyngitis or notable lymphadenopathy. Cardiopulmonary: Pt denies chest pain, SOB, heart palpitations, dyspnea on exertion. Abdominal/GI: Pt denies abdominal pain, n/v. : Pt denies dysuria, burning w/ urination, frequency/urgency. Denies new onset urinary or bowel incontinence. MSK: Pt denies loss of strength or function in extremities. Neuro: Pt denies new onset weakness, paresthesias. - Related Data Home Medications Medication Instructions Recorded Confirmed Atorvastatin [Lipitor] 10 mg PO HS 06/07/17 01/31/19 Carvedilol [Coreg] 25 mg PO BID 06/07/17 01/31/19 Loratadine [Claritin] 10 mg PO DAILY 06/07/17 01/31/19 Multivitamins, Thera [Multivitamin 1 tab PO DAILY 06/07/17 01/31/19 (formulary)] Omeprazole 20 mg PO DAILY 06/07/17 01/31/19 Levothyroxine Sodium [Synthroid] 137 mcg PO DAILY 10/20/17 01/31/19 Montelukast [Singulair] 10 mg PO DAILY 06/28/18 01/31/19 Cholecalciferol (Vitamin D3) 10,000 unit PO DAILY 07/23/18 01/31/19 [Vitamin D3] DULoxetine HCL [Cymbalta] 60 mg PO DAILY 08/15/18 01/31/19 Gabapentin [Neurontin] 300 mg PO BID 08/15/18 01/31/19 Dicyclomine [Bentyl] 10 mg PO Q6H PRN 11/05/18 01/31/19 Ferrous Sulfate [Feosol] 325 mg PO BID 11/05/18 01/31/19 Lactobacillus Acidophilus 1 tab PO BID 11/05/18 01/31/19 [Acidophilus] Miconazole 2% Cream [Monistat-Derm] 1 applic TOPICAL TID 11/05/18 01/31/19 QUEtiapine [SEROquel] 200 mg PO HS 11/18/18 01/31/19 rOPINIRole HCL 4 mg PO BID 11/18/18 01/31/19 Potassium Chloride ER [K-Dur 20] 20 meq PO BID 12/15/18 01/31/19 Torsemide [Demadex] 50 mg PO SUTUTHSA 12/15/18 01/31/19 Torsemide [Demadex] 100 mg PO MOWEFR 12/15/18 01/31/19 Cyanocobalamin (Vitamin B-12) 1,000 mcg PO DAILY 01/31/19 01/31/19 [Vitamin B-12] Previous Rx's Medication Instructions Recorded Rivaroxaban [Xarelto] 20 mg PO DAILY 90 Days #90 tab 11/18/17 Magnesium Oxide 400 mg PO BID #6 tablet 11/18/18 Allergies Allergy/AdvReac Type Severity Reaction Status Date / Time buspirone [From BuSpar] Allergy Unknown Verified 01/31/19 20:07 haloperidol [From Haldol] Allergy Swelling Verified 01/31/19 20:07 iodine Allergy Swelling Verified 01/31/19 20:07 Penicillins Allergy Swelling Verified 01/31/19 20:07 prochlorperazine Allergy Rash/Hives Verified 01/31/19 20:07 Sulfa (Sulfonamide Allergy Rash/Hives Verified 01/31/19 20:07 Antibiotics) Tetanus Vaccines and Toxoid Allergy Rash/Hives Verified 01/31/19 20:07 [Tetanus Vaccines & Toxoid] trifluoperazine HCl Allergy Unknown Verified 01/31/19 20:07 [From Stelazine] hydroxyzine [From Vistaril] AdvReac Rash/Hives Verified 01/31/19 20:07 Review of Systems ROS Statement: Those systems with pertinent positive or pertinent negative responses have been documented in the HPI. ROS Other: All systems not noted in ROS Statement are negative. Past Medical History Past Medical History: Asthma, Heart Failure, COPD, Diabetes Mellitus, GERD/Reflux, Hyperlipidemia, Hypertension, Musculoskeletal Disorder, Osteoarthritis (OA), Pneumonia, Pulmonary Embolus (PE), Thyroid Disorder Additional Past Medical History / Comment(s): chronic low back pain, herniated discs, RLS, leg edema, anemia, gout bilateral feet, hypothyroid, UTIs History of Any Multi-Drug Resistant Organisms: None Reported Past Surgical History: Bariatric Surgery, Heart Catheterization, Hernia Repair, Orthopedic Surgery Additional Past Surgical History / Comment(s): Total Right knee replacement, 3 abdominal hernia repairs, left hip repair d/t fracture, gastric bypass/revision, colonoscopy. Past Anesthesia/Blood Transfusion Reactions: No Reported Reaction Past Psychological History: Anxiety, Bipolar, Depression, Panic Disorder, PTSD Smoking Status: Never smoker Past Alcohol Use History: Occasional Past Drug Use History: None Reported - Past Family History Mother Family Medical History: Cancer Additional Family Medical History / Comment(s): lung cancer Father Family Medical History: Diabetes Mellitus Additional Family Medical History / Comment(s): "my dad from a blood clot that traveled from his leg to his lung and also caused a heart attack." Brother(s) Family Medical History: Diabetes Mellitus Sister(s) Additional Family Medical History / Comment(s): "her heart races too fast" General Exam - General Exam Comments Initial Comments: Constitutional: NAD, AOX3, Pt has pleasant affect. HEENT: NC/AT, trachea midline, neck supple, no lymphadenopathy. Posterior pharynx non erythematous, without exudates. External ears appear normal, without discharge. Mucous membranes moist. Eyes PERRLA, EOM intact. There is no scleral icterus. No pallor noted. Cardiopulmonary: RRR, no murmurs, rubs or gallops, no JVD noted. Lungs CTAB in anterior and posterior bowser. No peripheral edema. Abdominal exam: Abdomen soft and non-distended. Abdomen non-tender to palpation in all 4 quadrants. Bowel sounds active in LLQ. No hepatosplenomegaly. No ecchymosis Neuro: CN II-XII grossly intact. No nuchal rigidity. No raccon eyes, no smith sign, no hemotympanum. No cervical spinal tenderness. MSK: Right calf mildly erythematous, tender to palpation. Homans sign positive. Left calf nontender to palpation. Homans sign negative. Lower extremities otherwise nontender to palpation, full active range of motion.. Posterior tibialis and radial pulse +2 bilaterally. Sensation intact in upper and lower extremities. Full active ROM in upper and lower extremities, 5/5 stregnth. Course Vital Signs 02/11/19 02/11/19 18:00 22:00 Temperature 97.9 F Pulse Rate 93 95 Respiratory 18 18 Rate Blood Pressure 143/94 150/78 O2 Sat by Pulse 97 96 Oximetry Medical Decision Making - Medical Decision Making 58-year-old female patient with past medical history of asthma, COPD, type 2 diabetes, hypertension, hyperlipidemia, prior pulmonary embolism anticoagulated on xaralto, presents to ED after fall approximately one week ago. Patient was that she fell getting into car, fell on her hands and knees. Denies trauma head or neck. Denies any loss of consciousness. Patient comes in here with chief complaint of right calf pain as well as left thigh and knee pain. Patient denies any other complaints at this time due to denies a chest pain shortness with abdominal pain nausea vomiting. Patient vital signs stable, afebrile. Physical exam displayed: Right calf mildly erythematous, tender to palpation. Homans sign positive. Left calf nontender to palpation. Homans sign negative. Lower extremities otherwise nontender to palpation, full active range of motion.. Posterior tibialis and radial pulse +2 bilaterally. Sensation intact in upper and lower extremities. Full active ROM in upper and lower extremities, 5/5 stregnth. Plain film of tibia/fibular, fever, needed display acute process. Venous Doppler negative. Patient will discharge, follow-up with primary care provider Y2 days. Patient returned irritation or symptoms. Case discussed with Dr. Cortés. Disposition Clinical Impression: Fall Disposition: HOME SELF-CARE Condition: Stable Instructions (If sedation given, give patient instructions): Fall Prevention (ED) Additional Instructions: Patient to adhere to previously discussed treatment plan and will take medication(s) as directed. Patient to follow up with PCP in 1-2 days. Patient to return to ED if symptoms do not improve. Follow-up with primary care provider in 1-2 days. Return to ER if condition worsens in any way. Is patient prescribed a controlled substance at d/c from ED?: No Referrals: [facility] [Primary Care Provider] - 1-2 days
--- NOTE | 2019-02-11 20:38 | XR ---
PROCEDURE: XR knee complete LT - 3V DATE AND TIME: 02/11/2019 8:02 PM CLINICAL INDICATION: [facility]; Pain TECHNIQUE: Department protocol COMPARISON: 119 FINDINGS: There is no fracture or malalignment. Severe lateral compartment osteoarthritis changes noted, with moderate medial and anterior compartmen t changes. The soft tissues are unremarkable. IMPRESSION: NO ACUTE PROCESS.
--- NOTE | 2019-02-11 20:39 | XR ---
PROCEDURE: XR femur LT - 4 views DATE AND TIME: 02/11/2019 8:02 PM CLINICAL INDICATION: [facility]; Pain TECHNIQUE: Department protocol COMPARISON: None FINDINGS: The orthopedic hardware is intact. There is no fracture or malalignment. The soft tissues a re unremarkable. IMPRESSION: NO ACUTE PROCESS.
--- NOTE | 2019-02-11 20:40 | XR ---
PROCEDURE: XR tibia fibula RT -4 views DATE AND TIME: 02/11/2019 8:02 PM CLINICAL INDICATION: [facility]; Pain TECHNIQUE: Department protocol COMPARISON: None FINDINGS: The visualized right TKR is intact. There is no fracture or malalignment. The soft tissues are unremarkable. IMPRESSION: NO ACUTE PROCESS.
--- NOTE | 2019-02-11 20:44 | US ---
EXAMINATION TYPE: US venous doppler duplex LE RT DATE OF EXAM: 02/11/2019 8:27 PM COMPARISON: NONE CLINICAL HISTORY: Pain. Right leg pain SIDE PERFORMED: Right TECHNIQUE: The lower extremity deep venous system is examined utilizing real time linear array sonog rizwan with graded compression, doppler sonography and color-flow sonography. VESSELS IMAGED: External Iliac Vein (EIV) Common Femoral Vein Deep Femoral Vein Greater Saphenous Vein * Femoral Vein Popliteal Vein Small Saphenous Vein * Proximal Calf Veins (* superficial vessels) FINDINGS: Grayscale, color doppler, spectral doppler imaging performed of the deep veins of the lowe r extremities. There is normal flow, compressibility, vascular waveforms. IMPRESSION: Negative for DVT, right lower extremity.
[2019-02-11] MEDS ORDERED: HYDROcodone/APAP 5-325MG 1 EACH TAB PO STA (21:01)
[2019-02-11 22:01] VITALS: BP 150/78; PULSE 95
== END 2019-02-11 21:59 | disposition home or self-care (01) ==
LOC: EC 17:54
DX: M79.604 Pain in right leg (principal); M25.562 Pain in left knee; M79.652 Pain in left thigh; J44.9 Chronic obstructive pulmonary disease, unspecified; I11.0 Hypertensive heart disease with heart failure; I50.9 Heart failure, unspecified; E11.9 Type 2 diabetes mellitus without complications; K21.9 Gastro-esophageal reflux disease without esophagitis; E78.5 Hyperlipidemia, unspecified; M19.90 Unspecified osteoarthritis, unspecified site; G25.81 Restless legs syndrome; E03.9 Hypothyroidism, unspecified; D64.9 Anemia, unspecified; I10 Essential (primary) hypertension; M10.9 Gout, unspecified; F31.9 Bipolar disorder, unspecified; F41.0 Panic disorder [episodic paroxysmal anxiety]; F43.10 Post-traumatic stress disorder, unspecified; Z86.711 Personal history of pulmonary embolism; Z79.890 Hormone replacement therapy; Z79.899 Other long term (current) drug therapy; Z79.01 Long term (current) use of anticoagulants; Z88.0 Allergy status to penicillin; Z88.2 Allergy status to sulfonamides; Z88.7 Allergy status to serum and vaccine; Z88.8 Allergy status to other drugs, medicaments and biological substances; Z95.818 Presence of other cardiac implants and grafts; Z96.651 Presence of right artificial knee joint; Z98.84 Bariatric surgery status; W01.0XXA Fall on same level from slipping, tripping and stumbling without subsequent striking against object, initial encounter; Y92.009 Unspecified place in unspecified non-institutional (private) residence as the place of occurrence of the external cause
CPT/HCPCS: 99284

== ENCOUNTER 2019-02-26 20:34 | Emergency (ER) | payer MEDICARE, OTHER ==
[2019-02-26 20:43] VITALS: RESP 18
--- NOTE | 2019-02-26 21:06 | ED ---
General Adult HPI - General Chief complaint: Headache Stated complaint: Headache Time Seen by Provider: 02/26/19 20:36 Source: patient, EMS, RN notes reviewed Mode of arrival: EMS Limitations: no limitations - History of Present Illness Initial comments: Patient is a pleasant 59-year-old female presenting to the emergency Department with complaints of headache. Onset of symptoms was approximately 2 or so hours ago. Gradual onset. Symptoms have progressively worsened. Discomfort is currently becoming more severe and is radiating 7 or 8/10. Patient does have some mild photophobia. No vomiting. No nausea. Patient has occasional headaches however not very frequently. Patient is unclear if she has had previous head CT. No weakness. No confusion. Patient does have some paresthesias of her left arm. Patient states she also has some of her left leg however that is chronic and unchanged. No confusion. No isolated area of weakness. No visual changes. - Related Data Home Medications Medication Instructions Recorded Confirmed Atorvastatin [Lipitor] 10 mg PO HS 06/07/17 02/26/19 Carvedilol [Coreg] 25 mg PO BID 06/07/17 02/26/19 Loratadine [Claritin] 10 mg PO DAILY 06/07/17 02/26/19 Multivitamins, Thera [Multivitamin 1 tab PO DAILY 06/07/17 02/26/19 (formulary)] Omeprazole 20 mg PO DAILY 06/07/17 02/26/19 Levothyroxine Sodium [Synthroid] 137 mcg PO DAILY 10/20/17 02/26/19 Montelukast [Singulair] 10 mg PO DAILY 06/28/18 02/26/19 Cholecalciferol (Vitamin D3) 10,000 unit PO DAILY 07/23/18 02/26/19 [Vitamin D3] DULoxetine HCL [Cymbalta] 60 mg PO DAILY 08/15/18 02/26/19 Gabapentin [Neurontin] 300 mg PO BID 08/15/18 02/26/19 Dicyclomine [Bentyl] 10 mg PO Q6H PRN 11/05/18 02/26/19 Ferrous Sulfate [Feosol] 325 mg PO BID 11/05/18 02/26/19 Lactobacillus Acidophilus 1 tab PO BID 11/05/18 02/26/19 [Acidophilus] Miconazole 2% Cream [Monistat-Derm] 1 applic TOPICAL TID 11/05/18 02/26/19 rOPINIRole HCL 4 mg PO BID 11/18/18 02/26/19 Torsemide [Demadex] 50 mg PO SUTUTHSA 12/15/18 02/26/19 Torsemide [Demadex] 100 mg PO MOWEFR 12/15/18 02/26/19 Cyanocobalamin (Vitamin B-12) 1,000 mcg PO DAILY 01/31/19 02/26/19 [Vitamin B-12] Magnesium Oxide 400 mg PO DAILY 02/26/19 02/26/19 Potassium Chloride [Klor-Con 20] 40 meq PO BID 02/26/19 02/26/19 QUEtiapine [SEROquel] 150 mg PO HS 02/26/19 02/26/19 Previous Rx's Medication Instructions Recorded Rivaroxaban [Xarelto] 20 mg PO DAILY 90 Days #90 tab 11/18/17 predniSONE 50 mg PO DAILY #7 tab 02/27/19 Allergies Allergy/AdvReac Type Severity Reaction Status Date / Time buspirone [From BuSpar] Allergy Unknown Verified 02/26/19 21:16 haloperidol [From Haldol] Allergy Swelling Verified 02/26/19 21:16 iodine Allergy Swelling Verified 02/26/19 21:16 Penicillins Allergy Swelling Verified 02/26/19 21:16 prochlorperazine Allergy Rash/Hives Verified 02/26/19 21:16 Sulfa (Sulfonamide Allergy Rash/Hives Verified 02/26/19 21:16 Antibiotics) Tetanus Vaccines and Toxoid Allergy Rash/Hives Verified 02/26/19 21:16 [Tetanus Vaccines & Toxoid] trifluoperazine HCl Allergy Unknown Verified 02/26/19 21:16 [From Stelazine] hydroxyzine [From Vistaril] AdvReac Rash/Hives Verified 02/26/19 21:16 Review of Systems ROS Statement: Those systems with pertinent positive or pertinent negative responses have been documented in the HPI. ROS Other: All systems not noted in ROS Statement are negative. Constitutional: Denies: fever Eyes: Denies: eye pain ENT: Denies: ear pain Respiratory: Denies: cough Cardiovascular: Denies: chest pain Endocrine: Denies: fatigue Gastrointestinal: Denies: abdominal pain Genitourinary: Denies: dysuria Musculoskeletal: Denies: back pain Skin: Denies: rash Neurological: Reports: headache, paresthesias. Denies: weakness, confusion Past Medical History Past Medical History: Asthma, Heart Failure, COPD, Diabetes Mellitus, GERD/Reflux, Hyperlipidemia, Hypertension, Musculoskeletal Disorder, Osteoarthritis (OA), Pneumonia, Pulmonary Embolus (PE), Thyroid Disorder Additional Past Medical History / Comment(s): chronic low back pain, herniated discs, RLS, leg edema, anemia, gout bilateral feet, hypothyroid, UTIs History of Any Multi-Drug Resistant Organisms: None Reported Past Surgical History: Bariatric Surgery, Heart Catheterization, Hernia Repair, Orthopedic Surgery Additional Past Surgical History / Comment(s): Total Right knee replacement, 3 abdominal hernia repairs, left hip repair d/t fracture, gastric bypass/revision, colonoscopy. Past Anesthesia/Blood Transfusion Reactions: No Reported Reaction Past Psychological History: Anxiety, Bipolar, Depression, Panic Disorder, PTSD Smoking Status: Never smoker Past Alcohol Use History: Occasional Past Drug Use History: None Reported - Past Family History Mother Family Medical History: Cancer Additional Family Medical History / Comment(s): lung cancer Father Family Medical History: Diabetes Mellitus Additional Family Medical History / Comment(s): "my dad from a blood clot that traveled from his leg to his lung and also caused a heart attack." Brother(s) Family Medical History: Diabetes Mellitus Sister(s) Additional Family Medical History / Comment(s): "her heart races too fast" General Exam Limitations: no limitations General appearance: alert, in no apparent distress, obese Head exam: Present: atraumatic, other (Patient does have mild tenderness diffusely across the forehead and bilateral temporal region) Eye exam: Present: normal appearance, PERRL, EOMI. Absent: nystagmus ENT exam: Present: normal oropharynx Neck exam: Present: normal inspection Respiratory exam: Present: normal lung sounds bilaterally Cardiovascular Exam: Present: regular rate, normal rhythm GI/Abdominal exam: Present: soft. Absent: tenderness Extremities exam: Present: normal inspection. Absent: pedal edema, calf tenderness Neurological exam: Present: alert, oriented X3, CN II-XII intact. Absent: motor sensory deficit Expanded Neurological exam: Present: protecting the airway Patient oriented to: Present: person, place, time Speech: Present: fluid speech Cranial nerves: EOM's Intact: Normal, Facial Sensation: Normal Sensory exam: Upper Extremity Light Touch: Normal, Lower Extremity Light Touch: Normal Motor strength exam: RUE: 5, LUE: 5, RLE: 5, LLE: 5 Eye Response: (4) open spontaneously Motor Response: (6) obeys commands Verbal Response: (5) oriented Psychiatric exam: Present: normal affect, normal mood Skin exam: Present: normal color Course Vital Signs 02/26/19 20:39 Temperature 98.1 F Pulse Rate 80 Respiratory 18 Rate Blood Pressure 136/78 O2 Sat by Pulse 96 Oximetry Medical Decision Making - Medical Decision Making Patient reevaluated and is in improved following medications. Patient is requesting discharge multiple times. Case was discussed with Dr. pina, covering for Dr. Jade. He does feel patient can be discharged however does agree with prednisone and discussing case with vascular surgery for follow-up. Case was also discussed with Dr. Rocha, who will follow-up the patient and request patient call office tomorrow. Patient is updated regarding this. - Lab Data Result diagrams: 02/26/19 21:42 02/26/19 21:42 Lab Results 02/26/19 02/26/19 Range/Units 21:42 21:42 WBC 7.5 (3.8-10.6) k/uL RBC 3.90 (3.80-5.40) m/uL Hgb 10.9 L (11.4-16.0) gm/dL Hct 33.6 L (34.0-46.0) % MCV 86.1 (80.0-100.0) fL MCH 27.8 (25.0-35.0) pg MCHC 32.3 (31.0-37.0) g/dL RDW 15.4 (11.5-15.5) % Plt Count 282 (150-450) k/uL Neutrophils % 68 % Lymphocytes % 22 % Monocytes % 5 % Eosinophils % 2 % Basophils % 0 % Neutrophils # 5.1 (1.3-7.7) k/uL Lymphocytes # 1.6 (1.0-4.8) k/uL Monocytes # 0.4 (0-1.0) k/uL Eosinophils # 0.2 (0-0.7) k/uL Basophils # 0.0 (0-0.2) k/uL ESR 56 H (0-20) mm/hr Sodium 138 (137-145) mmol/L Potassium 4.5 (3.5-5.1) mmol/L Chloride 107 (98-107) mmol/L Carbon Dioxide 23 (22-30) mmol/L Anion Gap 8 mmol/L BUN 19 H (7-17) mg/dL Creatinine 0.81 (0.52-1.04) mg/dL Est GFR (CKD-EPI)AfAm >90 (>60 ml/min/1.73 sqM) Est GFR (CKD-EPI)NonAf 81 (>60 ml/min/1.73 sqM) Glucose 98 (74-99) mg/dL Calcium 9.4 (8.4-10.2) mg/dL Total Bilirubin 0.4 (0.2-1.3) mg/dL AST 26 (14-36) U/L ALT 24 (9-52) U/L Alkaline Phosphatase 90 (38-126) U/L Total Protein 6.4 (6.3-8.2) g/dL Albumin 3.8 (3.5-5.0) g/dL - Radiology Data Radiology results: report reviewed (Computed tomography scan of the brain and CTA of the brain revealed no acute process.) Disposition Clinical Impression: Headache Disposition: HOME SELF-CARE Condition: Stable Instructions (If sedation given, give patient instructions): Acute Headache (ED) Additional Instructions: Please follow-up with primary care physician tomorrow. Please also follow-up with Dr. Rocha in the next couple of days. You will likely need biopsy of the temporal artery. You will need further evaluation for possible temporal arteritis. Please call Dr. Rocha tomorrow to schedule this. Return for change in vision, increased headache, weakness, worsening symptoms or other concerns. Prescriptions: predniSONE 50 mg PO DAILY #7 tab Is patient prescribed a controlled substance at d/c from ED?: No Referrals: Beau Jade MD [Primary Care Provider] - 1-2 days Sukhdev Rocha MD [STAFF PHYSICIAN] - 1-2 days Time of Disposition: 00:03
[2019-02-26] MEDS ORDERED: diphenhydrAMINE 50 MG/ML 1 ML VIAL IVP STA (21:28)
[2019-02-26] MEDS ORDERED: METOCLOPRAMIDE 5 MG/ML 2 ML VIAL IVP STA (21:28)
[2019-02-26] MEDS ORDERED: SODIUM CHLORIDE 0.9% 500 ML 500 ML IV STA (21:28)
[2019-02-26] MEDS ORDERED: FAMOTIDINE 20 MG/2 ML VIAL IV STA (21:30)
[2019-02-26] MEDS ORDERED: methylPREDNISolone SOD SUCCI 125 MG/2 ML VIAL IV STA (21:30)
[2019-02-26 21:51] LABS: Basophils % (A) 0 %; Eosinophils # (A) 0.2 k/uL (0-0.7); Eosinophils % (A) 2 %; HCT 33.6 % (34.0-46.0); HGB 10.9 gm/dL (11.4-16.0); Lymphocytes # (A) 1.6 k/uL (1.0-4.8); Lymphocytes % (A) 22 %; MCH 27.8 pg (25.0-35.0); MCHC 32.3 g/dL (31.0-37.0); MCV 86.1 fL (80.0-100.0); Mean Platelet Volume 7.4; Monocytes # (A) 0.4 k/uL (0-1.0); Monocytes % (A) 5 %; Neutrophils # (A) 5.1 k/uL (1.3-7.7); Neutrophils % (A) 68 %; Platelet Count 282 k/uL (150-450); RDW 15.4 % (11.5-15.5); WBC 7.5 k/uL (3.8-10.6)
[2019-02-26 21:59] LABS: ALT 24 U/L (9-52); AST 26 U/L (14-36); African American GFR (CKD) >90 (>60 ml/min/1.73 sqM); Albumin 3.8 g/dL (3.5-5.0); Alkaline Phosphatase 90 U/L (38-126); Anion Gap 8 mmol/L; Blood Urea Nitrogen 19 mg/dL (7-17); Calcium 9.4 mg/dL (8.4-10.2); Carbon Dioxide 23 mmol/L (22-30); Chloride 107 mmol/L (98-107); Glucose 98 mg/dL (74-99); Potassium 4.5 mmol/L (3.5-5.1); Sodium 138 mmol/L (137-145); Total Bilirubin 0.4 mg/dL (0.2-1.3); Total Protein 6.4 g/dL (6.3-8.2)
[2019-02-26 22:55] LABS: Erythrocyte Sedimentation Rate 56 mm/hr (0-20)
--- NOTE | 2019-02-26 22:56 | CT ---
EXAM: CT Head Without Intravenous Contrast CLINICAL HISTORY: ITS.REASON CT Reason: Headache TECHNIQUE: Axial computed tomography images of the head/brain without intravenous contrast. CTDI is 61.57 mGy and DLP is 1434 mGy-cm. This CT exam was performed using one or more of the following dose reduction techniques: automated exposure control, adjustment of the mA and/or kV according to patient size, and/or use of iterative reconstruction technique. COMPARISON: CT 10/12/16. FINDINGS: Brain: No hemorrhage. No acute cortical infarct. No mass effect or midline shift. Ventricles: Unremarkable. Bones/joints: No acute fracture. Soft tissues: Unremarkable. Sinuses: Unremarkable as visualized. Mastoid air cells: Unremarkable as visualized. IMPRESSION: No acute intracranial process.
--- NOTE | 2019-02-26 23:28 | CT ---
EXAM: CT Angiography Head With Intravenous Contrast CLINICAL HISTORY: ITS.REASON CT Reason: sanz TECHNIQUE: Axial computed tomographic angiography images of the head with intravenous contrast using CT angiography protocol. CTDI is 32.4. mGy and DLP is 818.9 mGy-cm. This CT exam was performed using one or more of the following dose reduction techniques: automated exposure control, adjustment of the mA and/or kV according to patient size, and/or use of iterative reconstruction technique. 3D and MIP reconstructed images were created and reviewed. COMPARISON: No relevant prior studies available. FINDINGS: Right internal carotid artery: No significant stenosis. No occlusion. Right anterior cerebral artery: No occlusion. No aneurysm. Right middle cerebral artery: No occlusion. No aneurysm. Right posterior cerebral artery: No occlusion. No aneurysm. Right vertebral artery: Focal atherosclerotic narrowing. No occlusion. Left internal carotid artery: No significant stenosis. No occlusion. Left anterior cerebral artery: No occlusion. No aneurysm. Left middle cerebral artery: No occlusion. No aneurysm. Left posterior cerebral artery: No occlusion. No aneurysm. Left vertebral artery: Smaller left vertebral artery. No occlusion. Basilar artery: No occlusion. No aneurysm. IMPRESSION: No large vessel occlusion.
[2019-02-27 00:30] VITALS: BP 151/80; PULSE 77; TEMP 97.6
== END 2019-02-27 00:42 | disposition home or self-care (01) ==
LOC: EC 20:34
DX: R51 Headache (principal); H53.149 Visual discomfort, unspecified; R20.2 Paresthesia of skin; J44.9 Chronic obstructive pulmonary disease, unspecified; I11.0 Hypertensive heart disease with heart failure; I50.9 Heart failure, unspecified; E78.5 Hyperlipidemia, unspecified; K21.9 Gastro-esophageal reflux disease without esophagitis; M19.90 Unspecified osteoarthritis, unspecified site; G25.81 Restless legs syndrome; D64.9 Anemia, unspecified; E03.9 Hypothyroidism, unspecified; F41.9 Anxiety disorder, unspecified; F31.9 Bipolar disorder, unspecified; F43.10 Post-traumatic stress disorder, unspecified; Z87.01 Personal history of pneumonia (recurrent); Z86.711 Personal history of pulmonary embolism; Z96.651 Presence of right artificial knee joint; Z96.642 Presence of left artificial hip joint; Z98.84 Bariatric surgery status; Z98.890 Other specified postprocedural states; Z79.890 Hormone replacement therapy; Z79.899 Other long term (current) drug therapy; Z88.0 Allergy status to penicillin; Z88.2 Allergy status to sulfonamides; Z88.7 Allergy status to serum and vaccine; Z88.8 Allergy status to other drugs, medicaments and biological substances; Z91.048 Other nonmedicinal substance allergy status
CPT/HCPCS: 36415; 80053; 85652; 85025; 70496; 70450; 99284; 96374; 96375 ×3; 96361; J1200; J2765; J2930; Q9967

== ENCOUNTER 2019-03-14 14:29 | Emergency (ER) | payer MEDICARE, OTHER ==
[2019-03-14] MEDS ORDERED: ASPIRIN 81 MG PO STA (15:01)
[2019-03-14] MEDS ORDERED: IPRATROPIUM-ALBUTEROL 3 ML NEB INHALATION STA (15:02)
[2019-03-14] MEDS ORDERED: methylPREDNISolone SOD SUCCI 125 MG/2 ML VIAL IV STA (15:02)
--- NOTE | 2019-03-14 15:22 | ED ---
General Adult HPI - General Chief complaint: Chest Pain Stated complaint: SOB/Chest Pain Time Seen by Provider: 03/14/19 14:42 Source: patient, EMS, RN notes reviewed Mode of arrival: EMS Limitations: no limitations - History of Present Illness Initial comments: 59-year-old female well known to this emergency department with a complicated past medical history presents to the emergency department for a chief complaint of chest pain. Patient has had chest pain on and off for the past several days. States she also has short of breath and has come down with a cough. Patient does have a history of COPD and states this does feel like an exacerbation. Denies fevers or chills.Patient has no other complaints at this time including abdominal pain, nausea or vomiting, headache, or visual changes. - Related Data Home Medications Medication Instructions Recorded Confirmed Atorvastatin [Lipitor] 10 mg PO HS 06/07/17 03/14/19 Carvedilol [Coreg] 25 mg PO BID 06/07/17 03/14/19 Loratadine [Claritin] 10 mg PO DAILY 06/07/17 03/14/19 Multivitamins, Thera [Multivitamin 1 tab PO DAILY 06/07/17 03/14/19 (formulary)] Omeprazole 20 mg PO DAILY 06/07/17 03/14/19 Levothyroxine Sodium [Synthroid] 137 mcg PO DAILY 10/20/17 03/14/19 Montelukast [Singulair] 10 mg PO DAILY 06/28/18 03/14/19 Cholecalciferol (Vitamin D3) 10,000 unit PO DAILY 07/23/18 03/14/19 [Vitamin D3] DULoxetine HCL [Cymbalta] 60 mg PO DAILY 08/15/18 03/14/19 Gabapentin [Neurontin] 300 mg PO BID 08/15/18 03/14/19 Dicyclomine [Bentyl] 10 mg PO Q6H PRN 11/05/18 03/14/19 Ferrous Sulfate [Feosol] 325 mg PO BID 11/05/18 03/14/19 Lactobacillus Acidophilus 1 tab PO BID 11/05/18 03/14/19 [Acidophilus] Miconazole 2% Cream [Monistat-Derm] 1 applic TOPICAL TID 11/05/18 03/14/19 rOPINIRole HCL 4 mg PO BID 11/18/18 03/14/19 Torsemide [Demadex] 50 mg PO SUTUTHSA 12/15/18 03/14/19 Torsemide [Demadex] 100 mg PO MOWEFR 12/15/18 03/14/19 Cyanocobalamin (Vitamin B-12) 1,000 mcg PO DAILY 01/31/19 03/14/19 [Vitamin B-12] Magnesium Oxide 400 mg PO DAILY 02/26/19 03/14/19 Potassium Chloride [Klor-Con 20] 40 meq PO BID 02/26/19 03/14/19 QUEtiapine [SEROquel] 150 mg PO HS 02/26/19 03/14/19 Celecoxib [CeleBREX] 400 mg PO DAILY 03/14/19 03/14/19 Previous Rx's Medication Instructions Recorded Rivaroxaban [Xarelto] 20 mg PO DAILY 90 Days #90 tab 11/18/17 predniSONE 50 mg PO DAILY #5 tablet 03/14/19 Allergies Allergy/AdvReac Type Severity Reaction Status Date / Time buspirone [From BuSpar] Allergy Unknown Verified 03/14/19 14:49 haloperidol [From Haldol] Allergy Swelling Verified 03/14/19 14:49 iodine Allergy Swelling Verified 03/14/19 14:49 Penicillins Allergy Swelling Verified 03/14/19 14:49 prochlorperazine Allergy Rash/Hives Verified 03/14/19 14:49 Sulfa (Sulfonamide Allergy Rash/Hives Verified 03/14/19 14:49 Antibiotics) Tetanus Vaccines and Toxoid Allergy Rash/Hives Verified 03/14/19 14:49 [Tetanus Vaccines & Toxoid] trifluoperazine HCl Allergy Unknown Verified 03/14/19 14:49 [From Stelazine] hydroxyzine [From Vistaril] AdvReac Rash/Hives Verified 03/14/19 14:49 Review of Systems ROS Statement: Those systems with pertinent positive or pertinent negative responses have been documented in the HPI. ROS Other: All systems not noted in ROS Statement are negative. Past Medical History Past Medical History: Asthma, Heart Failure, COPD, Diabetes Mellitus, GERD/Refl ux, Hyperlipidemia, Hypertension, Musculoskeletal Disorder, Osteoarthritis (OA), Pneumonia, Pulmonary Embolus (PE), Thyroid Disorder Additional Past Medical History / Comment(s): chronic low back pain, herniated discs, RLS, leg edema, anemia, gout bilateral feet, hypothyroid, UTIs History of Any Multi-Drug Resistant Organisms: None Reported Past Surgical History: Bariatric Surgery, Heart Catheterization, Hernia Repair, Orthopedic Surgery Additional Past Surgical History / Comment(s): Total Right knee replacement, 3 abdominal hernia repairs, left hip repair d/t fracture, gastric bypass/revision, colonoscopy. Past Anesthesia/Blood Transfusion Reactions: No Reported Reaction Past Psychological History: Anxiety, Bipolar, Depression, Panic Disorder, PTSD Smoking Status: Never smoker Past Alcohol Use History: Occasional Past Drug Use History: None Reported - Past Family History Mother Family Medical History: Cancer Additional Family Medical History / Comment(s): lung cancer Father Family Medical History: Diabetes Mellitus Additional Family Medical History / Comment(s): "my dad from a blood clot that traveled from his leg to his lung and also caused a heart attack." Brother(s) Family Medical History: Diabetes Mellitus Sister(s) Additional Family Medical History / Comment(s): "her heart races too fast" General Exam Limitations: no limitations General appearance: alert, in no apparent distress Head exam: Present: atraumatic, normocephalic, normal inspection Eye exam: Present: normal appearance, PERRL, EOMI. Absent: scleral icterus, conjunctival injection, periorbital swelling ENT exam: Present: normal exam, mucous membranes moist Neck exam: Present: normal inspection, full ROM. Absent: tenderness, meningismus, lymphadenopathy Respiratory exam: Present: normal lung sounds bilaterally, chest wall tenderness. Absent: respiratory distress, wheezes, rales, rhonchi, stridor Cardiovascular Exam: Present: regular rate, normal rhythm, normal heart sounds. Absent: systolic murmur, diastolic murmur, rubs, gallop, clicks GI/Abdominal exam: Present: soft, normal bowel sounds. Absent: distended, tenderness, guarding, rebound, rigid Neurological exam: Present: alert, oriented X3, CN II-XII intact Psychiatric exam: Present: normal affect, normal mood Course Vital Signs 03/14/19 03/14/19 03/14/19 14:43 15:00 16:00 Temperature 98.1 F Pulse Rate 80 71 68 Respiratory 16 18 20 Rate Blood Pressure 133/73 112/63 135/66 O2 Sat by Pulse 99 99 99 Oximetry 03/14/19 03/14/19 16:03 16:10 Temperature Pulse Rate 76 76 Respiratory Rate Blood Pressure O2 Sat by Pulse Oximetry EKG Findings - EKG Comments: EKG Findings:: Normal sinus rhythm, ventricular rate 78, SC interval 136, QTc 412, no evidence of ST elevation or depression. Medical Decision Making - Medical Decision Making 59-year-old female well known to this emergency department presents for a chief complaint of cough and chest pain. Cough stated a few days ago and chest pain worsened intermittently over the past several days. States it hurts more to cough, denies pain with breathing. Does admit to shortness of breath when coughing. Denies shortness of breath at baseline. States she has a history of COPD. On exam patient has significant anterior chest wall tenderness which is reproducible. Vitals are stable. She has 99% on room air. She is well- appearing, sleeping when I walk into the room. No respite or distress. 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 CBC is unremarkable, hemoglobin 10.8 which is chronic. CMP is unremarkable. Troponin is negative. Chest x-ray shows mild cardiomegaly, no pneumonia.. Patient reevaluated after breathing treatment, feeling much better. Pain likely secondary to chest wall pain from coughing as this is reproducible on exam. Patient will be given steroids as she has a history of COPD and will continue to use her inhaler /breathing treatments at home. Patient will return here if she has any worsening symptoms. Discussed this case with attending physician Dr. Brownlee. - Lab Data Result diagrams: 03/14/19 15:44 03/14/19 15:44 Lab Results 03/14/19 03/14/19 03/14/19 Range/Units 15:44 15:44 15:44 WBC 6.9 (3.8-10.6) k/uL RBC 3.86 (3.80-5.40) m/uL Hgb 10.8 L (11.4-16.0) gm/dL Hct 32.9 L (34.0-46.0) % MCV 85.2 (80.0-100.0) fL MCH 27.9 (25.0-35.0) pg MCHC 32.7 (31.0-37.0) g/dL RDW 15.2 (11.5-15.5) % Plt Count 276 (150-450) k/uL Neutrophils % (Manual) 60 % Lymphocytes % (Manual) 33 % Monocytes % (Manual) 7 % Neutrophils # (Manual) 4.14 (1.3-7.7) k/uL Lymphocytes # (Manual) 2.28 (1.0-4.8) k/uL Monocytes # (Manual) 0.48 (0-1.0) k/uL Nucleated RBCs 0 (0-0) /100 WBC Manual Slide Review Performed Hypochromasia Slight Anisocytosis (manual) Present PT 10.1 (9.0-12.0) sec INR 0.9 (<1.2) APTT 27.2 (22.0-30.0) sec Sodium 140 (137-145) mmol/L Potassium 5.1 (3.5-5.1) mmol/L Chloride 108 H (98-107) mmol/L Carbon Dioxide 24 (22-30) mmol/L Anion Gap 8 mmol/L BUN 18 H (7-17) mg/dL Creatinine 0.65 (0.52-1.04) mg/dL Est GFR (CKD-EPI)AfAm >90 (>60 ml/min/1.73 sqM) Est GFR (CKD-EPI)NonAf >90 (>60 ml/min/1.73 sqM) Glucose 91 (74-99) mg/dL Calcium 9.6 (8.4-10.2) mg/dL Magnesium 2.1 (1.6-2.3) mg/dL Total Bilirubin 0.5 (0.2-1.3) mg/dL AST 33 (14-36) U/L ALT 21 (9-52) U/L Alkaline Phosphatase 89 (38-126) U/L Troponin I (0.000-0.034) ng/mL Total Protein 7.0 (6.3-8.2) g/dL Albumin 4.1 (3.5-5.0) g/dL 03/14/19 Range/Units 15:44 WBC (3.8-10.6) k/uL RBC (3.80-5.40) m/uL Hgb (11.4-16.0) gm/dL Hct (34.0-46.0) % MCV (80.0-100.0) fL MCH (25.0-35.0) pg MCHC (31.0-37.0) g/dL RDW (11.5-15.5) % Plt Count (150-450) k/uL Neutrophils % (Manual) % Lymphocytes % (Manual) % Monocytes % (Manual) % Neutrophils # (Manual) (1.3-7.7) k/uL Lymphocytes # (Manual) (1.0-4.8) k/uL Monocytes # (Manual) (0-1.0) k/uL Nucleated RBCs (0-0) /100 WBC Manual Slide Review Hypochromasia Anisocytosis (manual) PT (9.0-12.0) sec INR (<1.2) APTT (22.0-30.0) sec Sodium (137-145) mmol/L Potassium (3.5-5.1) mmol/L Chloride (98-107) mmol/L Carbon Dioxide (22-30) mmol/L Anion Gap mmol/L BUN (7-17) mg/dL Creatinine (0.52-1.04) mg/dL Est GFR (CKD-EPI)AfAm (>60 ml/min/1.73 sqM) Est GFR (CKD-EPI)NonAf (>60 ml/min/1.73 sqM) Glucose (74-99) mg/dL Calcium (8.4-10.2) mg/dL Magnesium (1.6-2.3) mg/dL Total Bilirubin (0.2-1.3) mg/dL AST (14-36) U/L ALT (9-52) U/L Alkaline Phosphatase (38-126) U/L Troponin I <0.012 (0.000-0.034) ng/mL Total Protein (6.3-8.2) g/dL Albumin (3.5-5.0) g/dL Disposition Clinical Impression: Cough, Chest wall pain Disposition: HOME SELF-CARE Condition: Good Instructions (If sedation given, give patient instructions): Chest Pain (ED), Costochondritis (ED), COPD (Chronic Obstructive Pulmonary Disease) (ED) Additional Instructions: Please take steroid as directed. Use inhaler as needed. Please follow-up with primary care in 1-2 days. Please return here to the emergency department if you have any worsening symptoms. Prescriptions: predniSONE 50 mg PO DAILY #5 tablet Is patient prescribed a controlled substance at d/c from ED?: No Referrals: Beau Jade MD [Primary Care Provider] - 1-2 days Time of Disposition: 17:05
[2019-03-14 16:04] LABS: INR 0.9 (<1.2); Partial Thromboplastin Time 27.2 sec (22.0-30.0); Prothrombin Time 10.1 sec (9.0-12.0)
[2019-03-14 16:13] LABS: HCT 32.9 % (34.0-46.0); HGB 10.8 gm/dL (11.4-16.0); Hypochromasia Slight; MCH 27.9 pg (25.0-35.0); MCHC 32.7 g/dL (31.0-37.0); MCV 85.2 fL (80.0-100.0); Platelet Count 276 k/uL (150-450); RBC 3.86 m/uL (3.80-5.40); RDW 15.2 % (11.5-15.5); WBC 6.9 k/uL (3.8-10.6)
[2019-03-14 16:15] LABS: ALT 21 U/L (9-52); AST 33 U/L (14-36); African American GFR (CKD) >90 (>60 ml/min/1.73 sqM); Albumin 4.1 g/dL (3.5-5.0); Alkaline Phosphatase 89 U/L (38-126); Anion Gap 8 mmol/L; Blood Urea Nitrogen 18 mg/dL (7-17); Calcium 9.6 mg/dL (8.4-10.2); Carbon Dioxide 24 mmol/L (22-30); Chloride 108 mmol/L (98-107); Glucose 91 mg/dL (74-99); Magnesium 2.1 mg/dL (1.6-2.3); Sodium 140 mmol/L (137-145); Total Bilirubin 0.5 mg/dL (0.2-1.3)
[2019-03-14 16:34] LABS: Potassium 5.1 mmol/L (3.5-5.1)
--- NOTE | 2019-03-14 16:34 | XR ---
EXAMINATION TYPE: XR chest 2V DATE OF EXAM: 03/14/2019 COMPARISON: 01/31/2019 INDICATION: Chest pain short of breath TECHNIQUE: Frontal and lateral views of the chest are obtained. FINDINGS: The heart size is mildly prominent. The pulmonary vasculature is normal. The lungs are clear. IMPRESSION: 1. Mild cardiomegaly
[2019-03-14 16:48] LABS: Anisocytosis (M) Present; Lymphocytes # (M) 2.28 k/uL (1.0-4.8); Monocytes # (M) 0.48 k/uL (0-1.0); Neutrophils # (M) 4.14 k/uL (1.3-7.7); Neutrophils % (M) 60 %; Nucleated Red Blood Cells 0 /100 WBC (0-0); Total Cells Counted 100
[2019-03-14 18:34] VITALS: BP 143/89; PULSE 74; RESP 18; TEMP 98
== END 2019-03-14 18:56 | disposition home or self-care (01) ==
LOC: EC 14:29
DX: R07.89 Other chest pain (principal); R06.02 Shortness of breath; R05 Cough; J44.9 Chronic obstructive pulmonary disease, unspecified; I11.0 Hypertensive heart disease with heart failure; I50.9 Heart failure, unspecified; E78.5 Hyperlipidemia, unspecified; F31.9 Bipolar disorder, unspecified; F41.0 Panic disorder [episodic paroxysmal anxiety]; E11.9 Type 2 diabetes mellitus without complications; E03.9 Hypothyroidism, unspecified; Z79.02 Long term (current) use of antithrombotics/antiplatelets; Z79.890 Hormone replacement therapy; Z79.899 Other long term (current) drug therapy; Z88.0 Allergy status to penicillin; Z88.2 Allergy status to sulfonamides; Z88.8 Allergy status to other drugs, medicaments and biological substances; Z88.7 Allergy status to serum and vaccine; Z98.84 Bariatric surgery status; Z95.5 Presence of coronary angioplasty implant and graft; Z96.651 Presence of right artificial knee joint; Z86.711 Personal history of pulmonary embolism
CPT/HCPCS: 36415; 94640; 93005; 80053; 83735; 84484; 85025; 85610; 85730; 71046; 99285; 96374; J2930

== ENCOUNTER 2019-04-12 12:26 | Emergency (ER) | payer MEDICARE, OTHER ==
[2019-04-12] MEDS ORDERED: LOPERAMIDE 2 MG CAP PO STA (12:51)
--- NOTE | 2019-04-12 13:02 | ED ---
General Adult HPI - General Chief complaint: Nausea/Vomiting/Diarrhea Stated complaint: Diarrhea Time Seen by Provider: 04/12/19 12:33 Source: patient Mode of arrival: ambulatory Limitations: no limitations - History of Present Illness Initial comments: Chief complaint; 59-year-old female who stubbed her toe when getting in the shower this morning. She has a small laceration to her right second toe. The patient is on L Oquist and blood home. It stopped bleeding by the time EMS had arrived. The patient also complained of chronic diarrhea. She is on medication for that and she took the tablets today. On emergency room she'll be given Imodium. Patient has no other complaints this time. - Related Data Home Medications Medication Instructions Recorded Confirmed Atorvastatin [Lipitor] 10 mg PO HS 06/07/17 03/14/19 Carvedilol [Coreg] 25 mg PO BID 06/07/17 03/14/19 Loratadine [Claritin] 10 mg PO DAILY 06/07/17 03/14/19 Multivitamins, Thera [Multivitamin 1 tab PO DAILY 06/07/17 03/14/19 (formulary)] Omeprazole 20 mg PO DAILY 06/07/17 03/14/19 Levothyroxine Sodium [Synthroid] 137 mcg PO DAILY 10/20/17 03/14/19 Montelukast [Singulair] 10 mg PO DAILY 06/28/18 03/14/19 Cholecalciferol (Vitamin D3) 10,000 unit PO DAILY 07/23/18 03/14/19 [Vitamin D3] DULoxetine HCL [Cymbalta] 60 mg PO DAILY 08/15/18 03/14/19 Gabapentin [Neurontin] 300 mg PO BID 08/15/18 03/14/19 Dicyclomine [Bentyl] 10 mg PO Q6H PRN 11/05/18 03/14/19 Ferrous Sulfate [Feosol] 325 mg PO BID 11/05/18 03/14/19 Lactobacillus Acidophilus 1 tab PO BID 11/05/18 03/14/19 [Acidophilus] Miconazole 2% Cream [Monistat-Derm] 1 applic TOPICAL TID 11/05/18 03/14/19 rOPINIRole HCL 4 mg PO BID 11/18/18 03/14/19 Torsemide [Demadex] 50 mg PO SUTUTHSA 12/15/18 03/14/19 Torsemide [Demadex] 100 mg PO MOWEFR 12/15/18 03/14/19 Cyanocobalamin (Vitamin B-12) 1,000 mcg PO DAILY 01/31/19 03/14/19 [Vitamin B-12] Magnesium Oxide 400 mg PO DAILY 02/26/19 03/14/19 Potassium Chloride [Klor-Con 20] 40 meq PO BID 02/26/19 03/14/19 QUEtiapine [SEROquel] 150 mg PO HS 02/26/19 03/14/19 Celecoxib [CeleBREX] 400 mg PO DAILY 03/14/19 03/14/19 Previous Rx's Medication Instructions Recorded Rivaroxaban [Xarelto] 20 mg PO DAILY 90 Days #90 tab 11/18/17 predniSONE 50 mg PO DAILY #5 tablet 03/14/19 Loperamide [Imodium] 2 mg PO QID #12 capsule 04/12/19 Allergies Allergy/AdvReac Type Severity Reaction Status Date / Time buspirone [From BuSpar] Allergy Unknown Verified 04/12/19 12:38 haloperidol [From Haldol] Allergy Swelling Verified 04/12/19 12:38 iodine Allergy Swelling Verified 04/12/19 12:38 Penicillins Allergy Swelling Verified 04/12/19 12:38 prochlorperazine Allergy Rash/Hives Verified 04/12/19 12:38 Sulfa (Sulfonamide Allergy Rash/Hives Verified 04/12/19 12:38 Antibiotics) Tetanus Vaccines and Toxoid Allergy Rash/Hives Verified 04/12/19 12:38 [Tetanus Vaccines & Toxoid] trifluoperazine HCl Allergy Unknown Verified 04/12/19 12:38 [From Stelazine] hydroxyzine [From Vistaril] AdvReac Rash/Hives Verified 04/12/19 12:38 Review of Systems ROS Statement: Those systems with pertinent positive or pertinent negative responses have been documented in the HPI. Review of systems no complaint of headache chest pain shortness of breath or problems. The patient has chronic diarrhea issues. She states on medications for this problem. She also is on eliquis Review of patient's past medical problems on previous charts. Vital signs temp 98.1 pulse 83 respiratory rate 20 pulse ox 95% room air blood pressure 109/53. ROS Other: All systems not noted in ROS Statement are negative. Past Medical History Past Medical History: Asthma, Heart Failure, COPD, Diabetes Mellitus, GERD/Reflux, Hyperlipidemia, Hypertension, Musculoskeletal Disorder, Osteoarthritis (OA), Pneumonia, Pulmonary Embolus (PE), Thyroid Disorder Additional Past Medical History / Comment(s): chronic low back pain, herniated discs, RLS, leg edema, anemia, gout bilateral feet, hypothyroid, UTIs History of Any Multi-Drug Resistant Organisms: None Reported Past Surgical History: Bariatric Surgery, Heart Catheterization, Hernia Repair, Orthopedic Surgery Additional Past Surgical History / Comment(s): Total Right knee replacement, 3 abdominal hernia repairs, left hip repair d/t fracture, gastric bypass/revision, colonoscopy. Past Anesthesia/Blood Transfusion Reactions: No Reported Reaction Past Psychological History: Anxiety, Bipolar, Depression, Panic Disorder, PTSD Smoking Status: Never smoker Past Alcohol Use History: Occasional Past Drug Use History: None Reported - Past Family History Mother Family Medical History: Cancer Additional Family Medical History / Comment(s): lung cancer Father Family Medical History: Diabetes Mellitus Additional Family Medical History / Comment(s): "my dad from a blood clot that traveled from his leg to his lung and also caused a heart attack." Brother(s) Family Medical History: Diabetes Mellitus Sister(s) Additional Family Medical History / Comment(s): "her heart races too fast" General Exam - General Exam Comments Initial Comments: General: The patient is awake and alert, in no distress, and does not appear acutely ill. Patient had a bleeding toe which stopped spontaneously. She is on L Oquist. Topical ointment and bandage will be applied. Patient advised as to how to stop bleeding from a small area with direct pressure for a prolonged period of time until effective. Cardiovascular: No murmur, no chest pain Respiratory: Lungs are clear to auscultation, respirations are non-labored, breath sounds are equal. No wheezes, stridor, rales, or rhonchi. No complaint of shortness of breath Gastrointestinal: Soft, non-distended, non-tender abdomen without masses or organomegaly noted. There is no rebound or guarding present. No CVA tenderness. Bowel sounds are unremarkable. Patient has recurrent episodes of loose stool. Currently taking antidiarrhea medication provided by her physician. Back: No complaint of back pain Musculoskeletal: No complaint of pain. Neurological: No neuro deficits Skin: No bruising Psychiatric: Cooperative, appropriate mood Limitations: no limitations Course Vital Signs 04/12/19 12:29 Temperature 98.1 F Pulse Rate 63 Respiratory 20 Rate Blood Pressure 109/53 O2 Sat by Pulse 95 Oximetry Medical Decision Making - Medical Decision Making Medical decision making; this is a 51-year-old female here with a small cut on the toe. She bled at home it stopped before EMS arrived. She also continues have diarrhea. Both problems were addressed. Topical antibiotic and a bandage applied to the toe. The patient was given Imodium. Told to continue with her home medications. Also advised as to eat those foods that may help bind her up including rice and right stripping. Patient agrees to try. She'll follow-up with family physician as needed. She'll also be given a prescription for Imodium which may be beneficial. Disposition Clinical Impression: Toe laceration, Diarrhea Disposition: HOME SELF-CARE Condition: Good Instructions (If sedation given, give patient instructions): Acute Diarrhea (ED) Additional Instructions: Apply pressure to any areas where you're bleeding until the bleeding stops. Follow-up with family physician as needed return emergency room as needed. Follow advice concerning loose stool. Prescriptions: Loperamide [Imodium] 2 mg PO QID #12 capsule Is patient prescribed a controlled substance at d/c from ED?: No Referrals: Beau Jade MD [Primary Care Provider] - 1-2 days Time of Disposition: 13:01
[2019-04-12 13:15] VITALS: BP 110/87; PULSE 67; RESP 18; TEMP 98.2
== END 2019-04-12 13:15 | disposition home or self-care (01) ==
LOC: EC 12:26
DX: S91.114A Laceration without foreign body of right lesser toe(s) without damage to nail, initial encounter (principal); R19.7 Diarrhea, unspecified; J44.9 Chronic obstructive pulmonary disease, unspecified; I11.0 Hypertensive heart disease with heart failure; I50.9 Heart failure, unspecified; K21.9 Gastro-esophageal reflux disease without esophagitis; E78.5 Hyperlipidemia, unspecified; M19.90 Unspecified osteoarthritis, unspecified site; E03.9 Hypothyroidism, unspecified; G25.81 Restless legs syndrome; D64.9 Anemia, unspecified; F31.9 Bipolar disorder, unspecified; F41.9 Anxiety disorder, unspecified; Z88.0 Allergy status to penicillin; Z88.2 Allergy status to sulfonamides; Z88.7 Allergy status to serum and vaccine; Z88.8 Allergy status to other drugs, medicaments and biological substances; Z91.048 Other nonmedicinal substance allergy status; Z79.1 Long term (current) use of non-steroidal anti-inflammatories (NSAID); Z79.890 Hormone replacement therapy; Z79.899 Other long term (current) drug therapy; Z87.01 Personal history of pneumonia (recurrent); Z96.651 Presence of right artificial knee joint; Z98.84 Bariatric surgery status
CPT/HCPCS: 99284

== ENCOUNTER 2019-04-22 17:06 | Emergency (ER) | payer MEDICARE, OTHER ==
[2019-04-22 17:16] VITALS: RESP 18
--- NOTE | 2019-04-22 17:35 | ED ---
Recheck HPI - General Chief Complaint: Recheck/Abnormal Lab/Rx Stated Complaint: Weight gain Time Seen by Provider: 04/22/19 17:13 Source: EMS, RN notes reviewed, old records reviewed Mode of arrival: EMS Limitations: no limitations - History of Present Illness Initial Comments: This is a 51-year-old female the ER for evaluation. Today patient presents for evaluation regards to what she believes his weight gain cough. Multiple recent hospital admissions. Patient denies any significant distress, does admit to like more swollen than normal patient is taking torsemide as directed at home. No other complaints, no significant current chest pain. No other recent changes in medications. No fevers cough or congestion. Patient is currently signifi cantly asymptomatic MD Complaint: other (She states she has 10-15 pound waking) -: unknown Returns Today for: other (A she noticed when wearing herself that she had increasing 10:15 pounds) Symptoms Since Prior Visit: no new symptoms Associated Symptoms: none - Related Data Home Medications Medication Instructions Recorded Confirmed Atorvastatin [Lipitor] 10 mg PO HS 06/07/17 04/22/19 Carvedilol [Coreg] 25 mg PO BID 06/07/17 04/22/19 Loratadine [Claritin] 10 mg PO DAILY 06/07/17 04/22/19 Multivitamins, Thera [Multivitamin 1 tab PO DAILY 06/07/17 04/22/19 (formulary)] Omeprazole 20 mg PO DAILY 06/07/17 04/22/19 Levothyroxine Sodium [Synthroid] 137 mcg PO DAILY 10/20/17 04/22/19 Montelukast [Singulair] 10 mg PO DAILY 06/28/18 04/22/19 Cholecalciferol (Vitamin D3) 10,000 unit PO DAILY 07/23/18 04/22/19 [Vitamin D3] DULoxetine HCL [Cymbalta] 60 mg PO DAILY 08/15/18 04/22/19 Gabapentin [Neurontin] 300 mg PO DAILY 08/15/18 04/22/19 Ferrous Sulfate [Feosol] 325 mg PO BID 11/05/18 04/22/19 Lactobacillus Acidophilus 1 tab PO BID 11/05/18 04/22/19 [Acidophilus] Miconazole 2% Cream [Monistat-Derm] 1 applic TOPICAL TID 11/05/18 04/22/19 rOPINIRole HCL 4 mg PO BID 11/18/18 04/22/19 Torsemide [Demadex] 50 mg PO SUTUTHSA 12/15/18 04/22/19 Torsemide [Demadex] 100 mg PO MOWEFR 12/15/18 04/22/19 Cyanocobalamin (Vitamin B-12) 1,000 mcg PO DAILY 01/31/19 04/22/19 [Vitamin B-12] Magnesium Oxide 400 mg PO DAILY 02/26/19 04/22/19 Potassium Chloride [Klor-Con 20] 40 meq PO BID 02/26/19 04/22/19 Celecoxib [CeleBREX] 400 mg PO DAILY 03/14/19 04/22/19 Diclofenac Sodium [Voltaren Gel] 1 applic TOPICAL BID PRN 04/22/19 04/22/19 Loperamide [Imodium] 2 mg PO QID PRN 04/22/19 04/22/19 Mometasone Cream 0.1% 1 applic TOPICAL DAILY 04/22/19 04/22/19 OLANZapine [ZyPREXA] 2.5 mg PO HS 04/22/19 04/22/19 Ondansetron HCl [Zofran] 4 mg PO BID PRN 04/22/19 04/22/19 Previous Rx's Medication Instructions Recorded Rivaroxaban [Xarelto] 20 mg PO DAILY 90 Days #90 tab 11/18/17 Allergies Allergy/AdvReac Type Severity Reaction Status Date / Time buspirone [From BuSpar] Allergy Unknown Verified 04/22/19 17:33 haloperidol [From Haldol] Allergy Swelling Verified 04/22/19 17:33 iodine Allergy Swelling Verified 04/22/19 17:33 Penicillins Allergy Swelling Verified 04/22/19 17:33 prochlorperazine Allergy Rash/Hives Verified 04/22/19 17:33 Sulfa (Sulfonamide Allergy Rash/Hives Verified 04/22/19 17:33 Antibiotics) Tetanus Vaccines and Toxoid Allergy Rash/Hives Verified 04/22/19 17:33 [Tetanus Vaccines & Toxoid] trifluoperazine HCl Allergy Unknown Verified 04/22/19 17:33 [From Stelazine] hydroxyzine [From Vistaril] AdvReac Rash/Hives Verified 04/22/19 17:33 Review of Systems ROS Statement: Those systems with pertinent positive or pertinent negative responses have been documented in the HPI. ROS Other: All systems not noted in ROS Statement are negative. Past Medical History Past Medical History: Asthma, Heart Failure, COPD, Diabetes Mellitus, GERD/Reflux, Hyperlipidemia, Hypertension, Musculoskeletal Disorder, Osteoarthritis (OA), Pneumonia, Pulmonary Embolus (PE), Thyroid Disorder Additional Past Medical History / Comment(s): chronic low back pain, herniated discs, RLS, leg edema, anemia, gout bilateral feet, hypothyroid, UTIs History of Any Multi-Drug Resistant Organisms: None Reported Past Surgical History: Bariatric Surgery, Heart Catheterization, Hernia Repair, Orthopedic Surgery Additional Past Surgical History / Comment(s): Total Right knee replacement, 3 abdominal hernia repairs, left hip repair d/t fracture, gastric bypass/revision, colonoscopy. Past Anesthesia/Blood Transfusion Reactions: No Reported Reaction Past Psychological History: Anxiety, Bipolar, Depression, Panic Disorder, PTSD Smoking Status: Never smoker Past Alcohol Use History: Occasional Past Drug Use History: None Reported - Past Family History Mother Family Medical History: Cancer Additional Family Medical History / Comment(s): lung cancer Father Family Medical History: Diabetes Mellitus Additional Family Medical History / Comment(s): "my dad from a blood clot that traveled from his leg to his lung and also caused a heart attack." Brother(s) Family Medical History: Diabetes Mellitus Sister(s) Additional Family Medical History / Comment(s): "her heart races too fast" General Exam Limitations: no limitations General appearance: alert, in no apparent distress, obese Head exam: Present: atraumatic, normocephalic, normal inspection Eye exam: Present: normal appearance, PERRL, EOMI. Absent: scleral icterus, conjunctival injection, periorbital swelling ENT exam: Present: normal exam, mucous membranes moist Neck exam: Present: normal inspection. Absent: tenderness, meningismus, lymphadenopathy Respiratory exam: Present: normal lung sounds bilaterally. Absent: respiratory distress, wheezes, rales, rhonchi, stridor Cardiovascular Exam: Present: regular rate, normal rhythm, normal heart sounds. Absent: systolic murmur, diastolic murmur, rubs, gallop, clicks GI/Abdominal exam: Present: soft, normal bowel sounds. Absent: distended, tenderness, guarding, rebound, rigid Extremities exam: Present: normal inspection, full ROM, normal capillary refill. Absent: tenderness, pedal edema, joint swelling, calf tenderness Back exam: Present: normal inspection Neurological exam: Present: alert, oriented X3, CN II-XII intact Psychiatric exam: Present: normal affect, normal mood Skin exam: Present: warm, dry, intact, normal color. Absent: rash Course Vital Signs 04/22/19 04/22/19 04/22/19 17:11 18:38 18:50 Temperature 98.3 F Pulse Rate 82 78 84 Respiratory 18 Rate Blood Pressure 136/76 O2 Sat by Pulse 97 Oximetry - Reevaluation(s) Reevaluation #1: 04/22/19 18:52 Medical records reviewed Reevaluation #2: 04/22/19 18:52 Patient is in no acute distress improved after breathing treatment Medical Decision Making - Medical Decision Making 51 female the ER for evaluation she presents today for evaluation of shortness of breath which she states is also related to increased weight gain. X-rays clear, oxygen is normal. Patient can be discharged home - Radiology Data Radiology results: report reviewed (Chest x-rays negative for acute disease), image reviewed Disposition Clinical Impression: SOB (shortness of breath), Peripheral edema Disposition: HOME SELF-CARE Condition: Good Instructions (If sedation given, give patient instructions): Heart Failure (ER) Is patient prescribed a controlled substance at d/c from ED?: No Referrals: Beau Jade MD [Primary Care Provider] - 1-2 days
[2019-04-22] MEDS ORDERED: IPRATROPIUM-ALBUTEROL 3 ML NEB INHALATION STA (18:14)
--- NOTE | 2019-04-22 18:49 | XR ---
EXAMINATION TYPE: XR chest 2V DATE OF EXAM: 04/22/2019 COMPARISON: 03/14/2019 HISTORY: Chest pain TECHNIQUE: Frontal and lateral views of the chest are obtained. FINDINGS: There is no heart failure nor confluent pneumonic infiltrate. Costophrenic angles are marylou r. Bony thorax is intact. IMPRESSION: No active cardiopulmonary disease. No change.
[2019-04-22 21:08] VITALS: BP 130/87; PULSE 87; TEMP 98.4
== END 2019-04-22 21:08 | disposition home or self-care (01) ==
LOC: EC 17:06
DX: R60.9 Edema, unspecified (principal); R06.02 Shortness of breath; E03.9 Hypothyroidism, unspecified; M54.5 Low back pain; G89.29 Other chronic pain; M10.9 Gout, unspecified; E11.9 Type 2 diabetes mellitus without complications; F31.9 Bipolar disorder, unspecified; E78.5 Hyperlipidemia, unspecified; I11.0 Hypertensive heart disease with heart failure; I50.9 Heart failure, unspecified; K21.9 Gastro-esophageal reflux disease without esophagitis; F41.9 Anxiety disorder, unspecified; M19.90 Unspecified osteoarthritis, unspecified site; G25.81 Restless legs syndrome; Z79.890 Hormone replacement therapy; Z79.1 Long term (current) use of non-steroidal anti-inflammatories (NSAID); Z79.899 Other long term (current) drug therapy; Z88.0 Allergy status to penicillin; Z88.2 Allergy status to sulfonamides; Z88.7 Allergy status to serum and vaccine; Z91.041 Radiographic dye allergy status; Z88.8 Allergy status to other drugs, medicaments and biological substances; Z86.711 Personal history of pulmonary embolism; Z98.84 Bariatric surgery status; Z95.5 Presence of coronary angioplasty implant and graft; Z96.651 Presence of right artificial knee joint; Z98.890 Other specified postprocedural states
CPT/HCPCS: 71046; 94640; 99284

== ENCOUNTER 2019-04-24 00:03 | Emergency (ER) | payer MEDICARE, OTHER ==
[2019-04-24 00:24] VITALS: BP 124/70; PULSE 80; RESP 17; TEMP 97
[2019-04-24] MEDS ORDERED: ACETAMINOPHEN TAB 325 MG TAB PO STA (00:30)
[2019-04-24 00:43] LABS: Glucose,Whole Blood 135 mg/dL (75-99)
--- NOTE | 2019-04-24 02:19 | ED ---
General Adult HPI - General Chief complaint: Recheck/Abnormal Lab/Rx Stated complaint: Headache,diabetes Time Seen by Provider: 04/24/19 00:11 Source: patient, EMS Mode of arrival: EMS - History of Present Illness Initial comments: Magda is a 59-year-old female very well-known to the emergency Department who presents today for evaluation of concern of hyperglycemia. Patient reports that she was at home, she began feeling somewhat woozy and that her sugars may be also she checked him and noted that her sugar was 375. Patient reports that she's been walking to her bedroom and laid down. Patient reports that she was out for a few minutes and woke up she then decided to recheck her sugars noted that they were down to the 320s. At that time patient was concerned that she follow sleep so quickly isn't atypical for her and thought maybe she had passed out so she decided to call EMS for evaluation considering her elevated sugars and concerned that she may have passed out. Patient did not have any lightheadedness chest pain or palpitations. She did not fall to the ground or lose consciousness she had some completely down in bed and then believes she was out. also reports she has a mild headache she has not taken anything for this. - Related Data Home Medications Medication Instructions Recorded Confirmed Atorvastatin [Lipitor] 10 mg PO HS 06/07/17 04/22/19 Carvedilol [Coreg] 25 mg PO BID 06/07/17 04/22/19 Loratadine [Claritin] 10 mg PO DAILY 06/07/17 04/22/19 Multivitamins, Thera [Multivitamin 1 tab PO DAILY 06/07/17 04/22/19 (formulary)] Omeprazole 20 mg PO DAILY 06/07/17 04/22/19 Levothyroxine Sodium [Synthroid] 137 mcg PO DAILY 10/20/17 04/22/19 Montelukast [Singulair] 10 mg PO DAILY 06/28/18 04/22/19 Cholecalciferol (Vitamin D3) 10,000 unit PO DAILY 07/23/18 04/22/19 [Vitamin D3] DULoxetine HCL [Cymbalta] 60 mg PO DAILY 08/15/18 04/22/19 Gabapentin [Neurontin] 300 mg PO DAILY 08/15/18 04/22/19 Ferrous Sulfate [Feosol] 325 mg PO BID 11/05/18 04/22/19 Lactobacillus Acidophilus 1 tab PO BID 11/05/18 04/22/19 [Acidophilus] Miconazole 2% Cream [Monistat-Derm] 1 applic TOPICAL TID 11/05/18 04/22/19 rOPINIRole HCL 4 mg PO BID 11/18/18 04/22/19 Torsemide [Demadex] 50 mg PO SUTUTHSA 12/15/18 04/22/19 Torsemide [Demadex] 100 mg PO MOWEFR 12/15/18 04/22/19 Cyanocobalamin (Vitamin B-12) 1,000 mcg PO DAILY 01/31/19 04/22/19 [Vitamin B-12] Magnesium Oxide 400 mg PO DAILY 02/26/19 04/22/19 Potassium Chloride [Klor-Con 20] 40 meq PO BID 02/26/19 04/22/19 Celecoxib [CeleBREX] 400 mg PO DAILY 03/14/19 04/22/19 Diclofenac Sodium [Voltaren Gel] 1 applic TOPICAL BID PRN 04/22/19 04/22/19 Loperamide [Imodium] 2 mg PO QID PRN 04/22/19 04/22/19 Mometasone Cream 0.1% 1 applic TOPICAL DAILY 04/22/19 04/22/19 OLANZapine [ZyPREXA] 2.5 mg PO HS 04/22/19 04/22/19 Ondansetron HCl [Zofran] 4 mg PO BID PRN 04/22/19 04/22/19 Previous Rx's Medication Instructions Recorded Rivaroxaban [Xarelto] 20 mg PO DAILY 90 Days #90 tab 11/18/17 Allergies Allergy/AdvReac Type Severity Reaction Status Date / Time buspirone [From BuSpar] Allergy Unknown Verified 04/24/19 00:25 haloperidol [From Haldol] Allergy Swelling Verified 04/24/19 00:25 iodine Allergy Swelling Verified 04/24/19 00:25 Penicillins Allergy Swelling Verified 04/24/19 00:25 prochlorperazine Allergy Rash/Hives Verified 04/24/19 00:25 Sulfa (Sulfonamide Allergy Rash/Hives Verified 04/24/19 00:25 Antibiotics) Tetanus Vaccines and Toxoid Allergy Rash/Hives Verified 04/24/19 00:25 [Tetanus Vaccines & Toxoid] trifluoperazine HCl Allergy Unknown Verified 04/24/19 00:25 [From Stelazine] hydroxyzine [From Vistaril] AdvReac Rash/Hives Verified 04/24/19 00:25 Review of Systems ROS Statement: Those systems with pertinent positive or pertinent negative responses have been documented in the HPI. ROS Other: All systems not noted in ROS Statement are negative. Past Medical History Past Medical History: Asthma, Heart Failure, COPD, Diabetes Mellitus, GERD/Reflux, Hyperlipidemia, Hypertension, Musculoskeletal Disorder, Osteoarthritis (OA), Pneumonia, Pulmonary Embolus (PE), Thyroid Disorder Additional Past Medical History / Comment(s): chronic low back pain, herniated discs, RLS, leg edema, anemia, gout bilateral feet, hypothyroid, UTIs, hx cell ulitis History of Any Multi-Drug Resistant Organisms: None Reported Past Surgical History: Bariatric Surgery, Heart Catheterization, Hernia Repair, Orthopedic Surgery Additional Past Surgical History / Comment(s): Total Right knee replacement, 3 abdominal hernia repairs, left hip repair d/t fracture, gastric bypass/revision, colonoscopy. Past Anesthesia/Blood Transfusion Reactions: No Reported Reaction Past Psychological History: Anxiety, Bipolar, Depression, Panic Disorder, PTSD Smoking Status: Never smoker Past Alcohol Use History: Occasional Past Drug Use History: None Reported - Past Family History Mother Family Medical History: Cancer Additional Family Medical History / Comment(s): lung cancer Father Family Medical History: Diabetes Mellitus Additional Family Medical History / Comment(s): "my dad from a blood clot that traveled from his leg to his lung and also caused a heart attack." Brother(s) Family Medical History: Diabetes Mellitus Sister(s) Additional Family Medical History / Comment(s): "her heart races too fast" General Exam - General Exam Comments Initial Comments: Physical Exam GENERAL: Morbidly obese HENT: Normocephalic, Atraumatic. EYES: PERRL, EOMI PULMONARY: Unlabored respirations. No audible rales rhonchi or wheezing was noted. CARDIOVASCULAR: There is a regular rate and rhythm without any murmurs gallops or rubs. ABDOMEN: Soft and nontender with normal bowel sounds. SKIN: Skin is clear with no lesions or rashes and otherwise unremarkable. : Deferred NEUROLOGIC: Patient is alert and oriented x3. Moving all extremities spontaneously MUSCULOSKELETAL: Normal extremities with adequate strength and full range of motion. No lower extremity swelling or edema. No calf tenderness. PSYCHIATRIC: Childlike demeanor, anxious Course Vital Signs 04/24/19 00:20 Temperature 97 F L Pulse Rate 80 Respiratory 17 Rate Blood Pressure 124/70 O2 Sat by Pulse 98 Oximetry Medical Decision Making - Medical Decision Making The patient was seen and evaluated history was obtained from patient and EMS and signed patient is concerned that her glucose is elevated at home, reports that her glucometer was reading 375 however EMS and our glucometers read within normal limits glucose is in the 130s. Patient also states that she laid down and thought she passed out because she doesn't usually fall asleep very quickly. Patient doesn't have any syncopal-like symptoms. Patient will be given Tylenol for her headache. At this time I do not feel the patient's complaint warrants any further workup. Patient was resting comfortably throughout her stay in the ER, vital signs were normal. Patient will be discharged home. Patient's guardian was notified of plan. - Lab Data Lab Results 04/24/19 Range/Units 00:42 POC Glucose (mg/dL) 135 H (75-99) mg/dL POC Glu Rigger Apprentice ID Velia Sotelo Disposition Clinical Impression: Headache Disposition: HOME SELF-CARE Condition: Stable Is patient prescribed a controlled substance at d/c from ED?: No Referrals: Beau Jade MD [Primary Care Provider] - 1-2 days
== END 2019-04-24 03:25 | disposition home or self-care (01) ==
LOC: EC 00:03
DX: R51 Headache (principal); F68.8 Other specified disorders of adult personality and behavior; E78.5 Hyperlipidemia, unspecified; E03.9 Hypothyroidism, unspecified; G25.81 Restless legs syndrome; M19.90 Unspecified osteoarthritis, unspecified site; I11.0 Hypertensive heart disease with heart failure; I50.9 Heart failure, unspecified; J44.9 Chronic obstructive pulmonary disease, unspecified; K21.9 Gastro-esophageal reflux disease without esophagitis; M10.9 Gout, unspecified; F31.9 Bipolar disorder, unspecified; F41.9 Anxiety disorder, unspecified; Z88.0 Allergy status to penicillin; Z88.2 Allergy status to sulfonamides; Z88.7 Allergy status to serum and vaccine; Z88.8 Allergy status to other drugs, medicaments and biological substances; Z91.048 Other nonmedicinal substance allergy status; Z79.1 Long term (current) use of non-steroidal anti-inflammatories (NSAID); Z79.52 Long term (current) use of systemic steroids; Z79.890 Hormone replacement therapy; Z79.899 Other long term (current) drug therapy; Z96.651 Presence of right artificial knee joint; Z87.01 Personal history of pneumonia (recurrent)
CPT/HCPCS: 36415; 99284

== ENCOUNTER 2019-04-25 16:15 | Emergency (ER) | payer MEDICARE, OTHER ==
--- NOTE | 2019-04-25 16:33 | ED ---
General Adult HPI - General Stated complaint: lt hand/wrist pain Time Seen by Provider: 04/25/19 16:21 Source: patient, RN notes reviewed Limitations: no limitations - History of Present Illness Initial comments: Magda is a 59-year-old female with a Dictated past medical history well known to this emergency department who presents for a chief complaint of left hand pain and left wrist pain. States his been ongoing for 2 weeks. States it was initially in the left hand in all digits in the past 2 days is now in the left wrist. States it is painful to move the left wrist. Does not know of any poss ible injuries. Does admit that she may have slept on it wrong. Denies any falls. Denies any weakness of the left hand. Denies any pain extending up the arm.Patient has no other complaints at this time including shortness of breath, chest pain, abdominal pain, nausea or vomiting, headache, or visual changes. - Related Data Home Medications Medication Instructions Recorded Confirmed Atorvastatin [Lipitor] 10 mg PO HS 06/07/17 04/22/19 Carvedilol [Coreg] 25 mg PO BID 06/07/17 04/22/19 Loratadine [Claritin] 10 mg PO DAILY 06/07/17 04/22/19 Multivitamins, Thera [Multivitamin 1 tab PO DAILY 06/07/17 04/22/19 (formulary)] Omeprazole 20 mg PO DAILY 06/07/17 04/22/19 Levothyroxine Sodium [Synthroid] 137 mcg PO DAILY 10/20/17 04/22/19 Montelukast [Singulair] 10 mg PO DAILY 06/28/18 04/22/19 Cholecalciferol (Vitamin D3) 10,000 unit PO DAILY 07/23/18 04/22/19 [Vitamin D3] DULoxetine HCL [Cymbalta] 60 mg PO DAILY 08/15/18 04/22/19 Gabapentin [Neurontin] 300 mg PO DAILY 08/15/18 04/22/19 Ferrous Sulfate [Feosol] 325 mg PO BID 11/05/18 04/22/19 Lactobacillus Acidophilus 1 tab PO BID 11/05/18 04/22/19 [Acidophilus] Miconazole 2% Cream [Monistat-Derm] 1 applic TOPICAL TID 11/05/18 04/22/19 rOPINIRole HCL 4 mg PO BID 11/18/18 04/22/19 Torsemide [Demadex] 50 mg PO SUTUTHSA 12/15/18 04/22/19 Torsemide [Demadex] 100 mg PO MOWEFR 12/15/18 04/22/19 Cyanocobalamin (Vitamin B-12) 1,000 mcg PO DAILY 01/31/19 04/22/19 [Vitamin B-12] Magnesium Oxide 400 mg PO DAILY 02/26/19 04/22/19 Potassium Chloride [Klor-Con 20] 40 meq PO BID 02/26/19 04/22/19 Celecoxib [CeleBREX] 400 mg PO DAILY 03/14/19 04/22/19 Diclofenac Sodium [Voltaren Gel] 1 applic TOPICAL BID PRN 04/22/19 04/22/19 Loperamide [Imodium] 2 mg PO QID PRN 04/22/19 04/22/19 Mometasone Cream 0.1% 1 applic TOPICAL DAILY 04/22/19 04/22/19 OLANZapine [ZyPREXA] 2.5 mg PO HS 04/22/19 04/22/19 Ondansetron HCl [Zofran] 4 mg PO BID PRN 04/22/19 04/22/19 Previous Rx's Medication Instructions Recorded Rivaroxaban [Xarelto] 20 mg PO DAILY 90 Days #90 tab 11/18/17 Allergies Allergy/AdvReac Type Severity Reaction Status Date / Time buspirone [From BuSpar] Allergy Unknown Verified 04/24/19 00:25 haloperidol [From Haldol] Allergy Swelling Verified 04/24/19 00:25 iodine Allergy Swelling Verified 04/24/19 00:25 Penicillins Allergy Swelling Verified 04/24/19 00:25 prochlorperazine Allergy Rash/Hives Verified 04/24/19 00:25 Sulfa (Sulfonamide Allergy Rash/Hives Verified 04/24/19 00:25 Antibiotics) Tetanus Vaccines and Toxoid Allergy Rash/Hives Verified 04/24/19 00:25 [Tetanus Vaccines & Toxoid] trifluoperazine HCl Allergy Unknown Verified 04/24/19 00:25 [From Stelazine] hydroxyzine [From Vistaril] AdvReac Rash/Hives Verified 04/24/19 00:25 Review of Systems ROS Statement: Those systems with pertinent positive or pertinent negative responses have been documented in the HPI. ROS Other: All systems not noted in ROS Statement are negative. Past Medical History Past Medical History: Asthma, Heart Failure, COPD, Diabetes Mellitus, GERD/Reflux, Hyperlipidemia, Hypertension, Musculoskeletal Disorder, Osteoarthritis (OA), Pneumonia, Pulmonary Embolus (PE), Thyroid Disorder Additional Past Medical History / Comment(s): chronic low back pain, herniated discs, RLS, leg edema, anemia, gout bilateral feet, hypothyroid, UTIs, hx cellulitis History of Any Multi-Drug Resistant Organisms: None Reported Past Surgical History: Bariatric Surgery, Heart Catheterization, Hernia Repair, Orthopedic Surgery Additional Past Surgical History / Comment(s): Total Right knee replacement, 3 abdominal hernia repairs, left hip repair d/t fracture, gastric bypass/revision, colonoscopy. Past Anesthesia/Blood Transfusion Reactions: No Reported Reaction Past Psychological History: Anxiety, Bipolar, Depression, Panic Disorder, PTSD Smoking Status: Never smoker Past Alcohol Use History: Occasional Past Drug Use History: None Reported - Past Family History Mother Family Medical History: Cancer Additional Family Medical History / Comment(s): lung cancer Father Family Medical History: Diabetes Mellitus Additional Family Medical History / Comment(s): "my dad from a blood clot that traveled from his leg to his lung and also caused a heart attack." Brother(s) Family Medical History: Diabetes Mellitus Sister(s) Additional Family Medical History / Comment(s): "her heart races too fast" General Exam General appearance: alert, in no apparent distress Head exam: Present: atraumatic, normocephalic, normal inspection Eye exam: Present: normal appearance. Absent: PERRL, EOMI, scleral icterus, conjunctival injection ENT exam: Present: normal exam, mucous membranes moist Neck exam: Present: normal inspection. Absent: tenderness, meningismus, lymphadenopathy Respiratory exam: Present: normal lung sounds bilaterally. Absent: respiratory distress, wheezes, rales, rhonchi, stridor Cardiovascular Exam: Present: regular rate, normal rhythm, normal heart sounds. Absent: systolic murmur, diastolic murmur, rubs, gallop, clicks Extremities exam: Present: full ROM (She does have full range of motion of the left wrist but does have pain with flexion and extension.), tenderness (Tenderness is noted to the ulnar dorsal aspect of the left wrist without any ecchymosis or edema.), normal capillary refill (Capillary refill less than 2 seconds, radial pulse 2+.), other (Power Station Operator strength 5 out of 5, sensation intact.). Absent: joint swelling (No edema or erythema, no increased warmth.) Course Vital Signs 04/25/19 04/25/19 16:27 18:00 Temperature 98.6 F Pulse Rate 61 65 Respiratory 14 14 Rate Blood Pressure 135/63 135/65 O2 Sat by Pulse 97 96 Oximetry Medical Decision Making - Medical Decision Making Magda is a 51-year-old female with a complicated past medical history well known to this emergency department. Today she presents for left wrist pain. States it has been ongoing for about 2 weeks or worsen in the past 2 days. Denies injury but states she may have slept on it strangely. On exam neurovascular status is intact. She does have intact range of motion but does have pain with this. Strength 5 out of 5 in the left upper extremity. Sensation intact. X- ray of the left wrist shows mild osteoarthritis without fracture or inflammatory arthritis. X-ray of the left hand shows minor degenerative changes without specific sign of inflammatory arthritis. No fracture. Patient's pain is likely secondary to arthritis. She will take Tylenol for pain as she cannot take Motrin. Recommended following up primary care who she will see if her upcoming appointment. Recommended returning if she has any worsening symptoms. Disposition Clinical Impression: Wrist pain, left, Arthritis Disposition: HOME SELF-CARE Condition: Good Instructions (If sedation given, give patient instructions): Wrist Injury (ED) Additional Instructions: Please follow up with primary care in 1-2 days. Return to the emergency department if you have any worsening symptoms. Otherwise take Tylenol for pain and rest ice and elevate the left wrist. Is patient prescribed a controlled substance at d/c from ED?: No Referrals: Beau Jade MD [Primary Care Provider] - 1-2 days Time of Disposition: 18:14
[2019-04-25 16:36] VITALS: RESP 14; TEMP 98.6
--- NOTE | 2019-04-25 16:47 | XR ---
EXAMINATION TYPE: XR wrist complete LT DATE OF EXAM: 04/25/2019 COMPARISON: NONE HISTORY: Pain TECHNIQUE: 4 views FINDINGS: There is some narrowing of the radiocarpal joint space. I see no fracture nor dislocation. Carpal bones appear intact. IMPRESSION: Mild osteoarthritis. No fracture. No sign of inflammatory arthritis.
--- NOTE | 2019-04-25 16:48 | XR ---
EXAMINATION TYPE: XR hand complete LT DATE OF EXAM: 04/25/2019 COMPARISON: NONE HISTORY: Hand and wrist pain TECHNIQUE: 3 views FINDINGS: There is soft tissue swelling on the dorsum of the hand. Metacarpals appear intact. There i s minor spurring at the first carpometacarpal joint. IP joint spaces are fairly normal. There are no erosions. There is no subluxation. There is mild narrowing radiocarpal joint space. IMPRESSION: Minor degenerative changes. No specific sign of inflammatory arthritis. No fracture.
[2019-04-25 18:28] VITALS: BP 135/65; PULSE 65
== END 2019-04-25 18:18 | disposition home or self-care (01) ==
LOC: EC 16:15
DX: M19.032 Primary osteoarthritis, left wrist (principal); J44.9 Chronic obstructive pulmonary disease, unspecified; I11.0 Hypertensive heart disease with heart failure; I50.9 Heart failure, unspecified; E78.5 Hyperlipidemia, unspecified; E03.9 Hypothyroidism, unspecified; K21.9 Gastro-esophageal reflux disease without esophagitis; F31.9 Bipolar disorder, unspecified; F41.0 Panic disorder [episodic paroxysmal anxiety]; E11.9 Type 2 diabetes mellitus without complications; Z79.02 Long term (current) use of antithrombotics/antiplatelets; Z79.890 Hormone replacement therapy; Z79.899 Other long term (current) drug therapy; Z79.1 Long term (current) use of non-steroidal anti-inflammatories (NSAID); Z88.0 Allergy status to penicillin; Z88.2 Allergy status to sulfonamides; Z88.8 Allergy status to other drugs, medicaments and biological substances; Z91.048 Other nonmedicinal substance allergy status; Z88.7 Allergy status to serum and vaccine; Z98.84 Bariatric surgery status; Z95.5 Presence of coronary angioplasty implant and graft; Z96.651 Presence of right artificial knee joint; Z86.711 Personal history of pulmonary embolism
CPT/HCPCS: 99283

== ENCOUNTER 2019-05-02 10:51 | Observation (INO) | payer MEDICARE, OTHER ==
[2019-05-02] MEDS ORDERED: NITROGLYCERIN OINT 1 INCH/GM PACKET TOPICAL STA (11:17)
[2019-05-02] MEDS ORDERED: ASPIRIN 81 MG PO STA (11:17)
--- NOTE | 2019-05-02 11:20 | ED ---
General Adult HPI - General Chief complaint: Chest Pain Stated complaint: Chest pain Time Seen by Provider: 05/02/19 11:07 Source: patient, RN notes reviewed, old records reviewed Mode of arrival: ambulatory Limitations: no limitations - History of Present Illness Initial comments: Patient is a pleasant 59-year-old female presenting to the emergency Department with complaints of chest discomfort. Onset of symptoms was just over an hour ago. Discomfort has been steady. Discomfort feels like cramping in her left upper chest with radiation towards left arm. Patient does feel somewhat short of breath associated with this. Patient is fatigued with exertion. No associated nausea vomiting or diaphoresis. No history of similar symptoms previously. No history of previous heart attack. Patient did have heart catheterization done less than one year ago. Patient is on Xarelto. - Related Data Home Medications Medication Instructions Recorded Confirmed Atorvastatin [Lipitor] 10 mg PO HS 06/07/17 05/02/19 Carvedilol [Coreg] 25 mg PO BID 06/07/17 05/02/19 Loratadine [Claritin] 10 mg PO DAILY 06/07/17 05/02/19 Multivitamins, Thera [Multivitamin 1 tab PO DAILY 06/07/17 05/02/19 (formulary)] Omeprazole 20 mg PO DAILY 06/07/17 05/02/19 Levothyroxine Sodium [Synthroid] 137 mcg PO DAILY 10/20/17 05/02/19 Montelukast [Singulair] 10 mg PO DAILY 06/28/18 05/02/19 Cholecalciferol (Vitamin D3) 10,000 unit PO DAILY 07/23/18 05/02/19 [Vitamin D3] DULoxetine HCL [Cymbalta] 60 mg PO DAILY 08/15/18 05/02/19 Gabapentin [Neurontin] 300 mg PO DAILY 08/15/18 05/02/19 Ferrous Sulfate [Feosol] 325 mg PO BID 11/05/18 05/02/19 Lactobacillus Acidophilus 1 tab PO BID 11/05/18 05/02/19 [Acidophilus] Miconazole 2% Cream [Monistat-Derm] 1 applic TOPICAL TID 11/05/18 05/02/19 rOPINIRole HCL 4 mg PO BID 11/18/18 05/02/19 Torsemide [Demadex] 50 mg PO SUTUTHSA 12/15/18 05/02/19 Torsemide [Demadex] 100 mg PO MOWEFR 12/15/18 05/02/19 Cyanocobalamin (Vitamin B-12) 1,000 mcg PO DAILY 01/31/19 05/02/19 [Vitamin B-12] Magnesium Oxide 400 mg PO DAILY 02/26/19 05/02/19 Potassium Chloride [Klor-Con 20] 40 meq PO BID 02/26/19 05/02/19 Celecoxib [CeleBREX] 400 mg PO DAILY 03/14/19 05/02/19 Diclofenac Sodium [Voltaren Gel] 1 applic TOPICAL BID PRN 04/22/19 05/02/19 Loperamide [Imodium] 2 mg PO QID PRN 04/22/19 05/02/19 Mometasone Cream 0.1% 1 applic TOPICAL DAILY 04/22/19 05/02/19 OLANZapine [ZyPREXA] 2.5 mg PO HS 04/22/19 05/02/19 Ondansetron HCl [Zofran] 4 mg PO BID PRN 04/22/19 05/02/19 Previous Rx's Medication Instructions Recorded Rivaroxaban [Xarelto] 20 mg PO DAILY 90 Days #90 tab 11/18/17 Allergies Allergy/AdvReac Type Severity Reaction Status Date / Time buspirone [From BuSpar] Allergy Unknown Verified 05/02/19 11:02 haloperidol [From Haldol] Allergy Swelling Verified 05/02/19 11:02 iodine Allergy Swelling Verified 05/02/19 11:02 Penicillins Allergy Swelling Verified 05/02/19 11:02 prochlorperazine Allergy Rash/Hives Verified 05/02/19 11:02 Sulfa (Sulfonamide Allergy Rash/Hives Verified 05/02/19 11:02 Antibiotics) Tetanus Vaccines and Toxoid Allergy Rash/Hives Verified 05/02/19 11:02 [Tetanus Vaccines & Toxoid] trifluoperazine HCl Allergy Unknown Verified 05/02/19 11:02 [From Stelazine] hydroxyzine [From Vistaril] AdvReac Rash/Hives Verified 05/02/19 11:02 Review of Systems ROS Statement: Those systems with pertinent positive or pertinent negative responses have been documented in the HPI. ROS Other: All systems not noted in ROS Statement are negative. Constitutional: Denies: fever Eyes: Denies: eye pain ENT: Denies: ear pain Respiratory: Denies: cough Cardiovascular: Reports: chest pain Endocrine: Reports: fatigue Gastrointestinal: Denies: abdominal pain Genitourinary: Denies: dysuria Musculoskeletal: Denies: back pain Skin: Denies: rash Neurological: Denies: weakness Past Medical History Past Medical History: Asthma, Heart Failure, COPD, Diabetes Mellitus, GERD/Reflux, Hyperlipidemia, Hypertension, Musculoskeletal Disorder, Osteoarthritis (OA), Pneumonia, Pulmonary Embolus (PE), Thyroid Disorder Additional Past Medical History / Comment(s): chronic low back pain, herniated discs, RLS, leg edema, anemia, gout bilateral feet, hypothyroid, UTIs, hx cellulitis History of Any Multi-Drug Resistant Organisms: None Reported Past Surgical History: Bariatric Surgery, Heart Catheterization, Hernia Repair, Orthopedic Surgery Additional Past Surgical History / Comment(s): Total Right knee replacement, 3 abdominal hernia repairs, left hip repair d/t fracture, gastric bypass/revision, colonoscopy. Past Anesthesia/Blood Transfusion Reactions: No Reported Reaction Past Psychological History: Anxiety, Bipolar, Depression, Panic Disorder, PTSD Smoking Status: Never smoker Past Alcohol Use History: Occasional Past Drug Use History: None Reported - Past Family History Mother Family Medical History: Cancer Additional Family Medical History / Comment(s): lung cancer Father Family Medical History: Diabetes Mellitus Additional Family Medical History / Comment(s): "my dad from a blood clot that traveled from his leg to his lung and also caused a heart attack." Brother(s) Family Medical History: Diabetes Mellitus Sister(s) Additional Family Medical History / Comment(s): "her heart races too fast" General Exam Limitations: no limitations General appearance: alert, in no apparent distress, obese Head exam: Present: atraumatic Eye exam: Present: normal appearance, PERRL ENT exam: Present: normal oropharynx Neck exam: Present: normal inspection Respiratory exam: Present: normal lung sounds bilaterally. Absent: chest wall tenderness Cardiovascular Exam: Present: regular rate, normal rhythm Expanded Peripheral pulses: 2+: Radial (R), Radial (L), Posterior Tibialis (R), Posterior Tibialis (L), Dorsalis Pedis (R), Dorsalis Pedis (L) GI/Abdominal exam: Present: soft. Absent: tenderness Extremities exam: Present: normal inspection. Absent: pedal edema, calf tenderness Neurological exam: Present: alert Psychiatric exam: Present: normal affect, normal mood Skin exam: Present: normal color Course Vital Signs 05/02/19 11:14 Temperature 98.2 F Pulse Rate 75 Respiratory 18 Rate Blood Pressure 113/79 O2 Sat by Pulse 97 Oximetry EKG Findings - EKG Comments: EKG Findings:: Normal sinus rhythm 86. NC 142. QRS 78. QT 360. QTC 4:30. Normal axis. Normal QRS. No acute ST change. Medical Decision Making - Medical Decision Making Patient reevaluated and resting comfortably in bed. Patient updated on results and plan. Case discussed with Dr. Pope, who will admit covering for Dr. Alonzo. - Lab Data Result diagrams: 05/02/19 11:00 05/02/19 11:00 Lab Results 05/02/19 05/02/19 05/02/19 Range/Units 11:00 11:00 11:00 WBC 8.0 (3.8-10.6) k/uL RBC 4.14 (3.80-5.40) m/uL Hgb 11.6 (11.4-16.0) gm/dL Hct 35.7 (34.0-46.0) % MCV 86.0 (80.0-100.0) fL MCH 28.1 (25.0-35.0) pg MCHC 32.6 (31.0-37.0) g/dL RDW 14.9 (11.5-15.5) % Plt Count 329 (150-450) k/uL Neutrophils % 70 % Lymphocytes % 18 % Monocytes % 6 % Eosinophils % 1 % Basophils % 1 % Neutrophils # 5.6 (1.3-7.7) k/uL Lymphocytes # 1.5 (1.0-4.8) k/uL Monocytes # 0.5 (0-1.0) k/uL Eosinophils # 0.1 (0-0.7) k/uL Basophils # 0.0 (0-0.2) k/uL PT (9.0-12.0) sec INR (<1.2) APTT (22.0-30.0) sec Sodium 139 (137-145) mmol/L Potassium 3.9 (3.5-5.1) mmol/L Chloride 101 (98-107) mmol/L Carbon Dioxide 28 (22-30) mmol/L Anion Gap 10 mmol/L BUN 34 H (7-17) mg/dL Creatinine 0.80 (0.52-1.04) mg/dL Est GFR (CKD-EPI)AfAm >90 (>60 ml/min/1.73 sqM) Est GFR (CKD-EPI)NonAf 82 (>60 ml/min/1.73 sqM) Glucose 58 L (74-99) mg/dL Calcium 9.3 (8.4-10.2) mg/dL Magnesium 1.6 (1.6-2.3) mg/dL Total Bilirubin 0.4 (0.2-1.3) mg/dL AST 29 (14-36) U/L ALT 23 (9-52) U/L Alkaline Phosphatase 82 (38-126) U/L Troponin I (0.000-0.034) ng/mL NT-Pro-B Natriuret Pep 249 pg/mL Total Protein 6.9 (6.3-8.2) g/dL Albumin 4.1 (3.5-5.0) g/dL 05/02/19 05/02/19 Range/Units 11:00 11:00 WBC (3.8-10.6) k/uL RBC (3.80-5.40) m/uL Hgb (11.4-16.0) gm/dL Hct (34.0-46.0) % MCV (80.0-100.0) fL MCH (25.0-35.0) pg MCHC (31.0-37.0) g/dL RDW (11.5-15.5) % Plt Count (150-450) k/uL Neutrophils % % Lymphocytes % % Monocytes % % Eosinophils % % Basophils % % Neutrophils # (1.3-7.7) k/uL Lymphocytes # (1.0-4.8) k/uL Monocytes # (0-1.0) k/uL Eosinophils # (0-0.7) k/uL Basophils # (0-0.2) k/uL PT 9.8 (9.0-12.0) sec INR 0.9 (<1.2) APTT 25.1 (22.0-30.0) sec Sodium (137-145) mmol/L Potassium (3.5-5.1) mmol/L Chloride (98-107) mmol/L Carbon Dioxide (22-30) mmol/L Anion Gap mmol/L BUN (7-17) mg/dL Creatinine (0.52-1.04) mg/dL Est GFR (CKD-EPI)AfAm (>60 ml/min/1.73 sqM) Est GFR (CKD-EPI)NonAf (>60 ml/min/1.73 sqM) Glucose (74-99) mg/dL Calcium (8.4-10.2) mg/dL Magnesium (1.6-2.3) mg/dL Total Bilirubin (0.2-1.3) mg/dL AST (14-36) U/L ALT (9-52) U/L Alkaline Phosphatase (38-126) U/L Troponin I <0.012 (0.000-0.034) ng/mL NT-Pro-B Natriuret Pep pg/mL Total Protein (6.3-8.2) g/dL Albumin (3.5-5.0) g/dL - Radiology Data Radiology results: image reviewed (Chest x-ray shows cardiomegaly and low lung volumes) Disposition Clinical Impression: Chest pain Disposition: ADMITTED IP TO THIS HOSP Is patient prescribed a controlled substance at d/c from ED?: No Referrals: Beau Jade MD [Primary Care Provider] - 1-2 days Decision Time: 12:25
[2019-05-02 11:28] LABS: Basophils % (A) 1 %; Eosinophils # (A) 0.1 k/uL (0-0.7); Eosinophils % (A) 1 %; HCT 35.7 % (34.0-46.0); HGB 11.6 gm/dL (11.4-16.0); Lymphocytes # (A) 1.5 k/uL (1.0-4.8); Lymphocytes % (A) 18 %; MCH 28.1 pg (25.0-35.0); MCHC 32.6 g/dL (31.0-37.0); Mean Platelet Volume 7.7; Monocytes # (A) 0.5 k/uL (0-1.0); Monocytes % (A) 6 %; Neutrophils # (A) 5.6 k/uL (1.3-7.7); Neutrophils % (A) 70 %; Platelet Count 329 k/uL (150-450); RBC 4.14 m/uL (3.80-5.40); RDW 14.9 % (11.5-15.5)
[2019-05-02 11:38] LABS: ALT 23 U/L (9-52); AST 29 U/L (14-36); African American GFR (CKD) >90 (>60 ml/min/1.73 sqM); Albumin 4.1 g/dL (3.5-5.0); Alkaline Phosphatase 82 U/L (38-126); Anion Gap 10 mmol/L; Blood Urea Nitrogen 34 mg/dL (7-17); Calcium 9.3 mg/dL (8.4-10.2); Carbon Dioxide 28 mmol/L (22-30); Chloride 101 mmol/L (98-107); Glucose 58 mg/dL (74-99); INR 0.9 (<1.2); Magnesium 1.6 mg/dL (1.6-2.3); Partial Thromboplastin Time 25.1 sec (22.0-30.0); Potassium 3.9 mmol/L (3.5-5.1); Prothrombin Time 9.8 sec (9.0-12.0); Sodium 139 mmol/L (137-145); Total Bilirubin 0.4 mg/dL (0.2-1.3); Total Protein 6.9 g/dL (6.3-8.2)
--- NOTE | 2019-05-02 12:04 | XR ---
EXAMINATION TYPE: XR chest 2V DATE OF EXAM: 05/02/2019 COMPARISON: 04/22/2019 HISTORY: 59-year-old female with chest pain TECHNIQUE: AP and lateral views FINDINGS: Patient rotation. Heart mildly enlarged. Lung volumes. Eventration right hemidiaphragm. Visualized up per lungs and right lung are clear. Left base underpenetrated and not well assessed. No evident opaci ty or effusion seen on the lateral view. IMPRESSION: Cardiomegaly and low lung volumes. No definite acute process though the left base is underpenetrated and not well assessed.
[2019-05-02] MEDS ORDERED: NITROGLYCERIN SL TABS 0.4 MG TAB SUBLINGUAL PRN (12:25)
[2019-05-02] MEDS ORDERED: ACETAMINOPHEN TAB 500 MG TAB PO STA (12:29)
[2019-05-02 13:12] VITALS: BMI 67.9
[2019-05-02] MEDS ORDERED: LORazepam 2 MG/ML INJ ONE (14:03)
[2019-05-02] MEDS ORDERED: LORazepam 2 MG/ML INJ IV STA (14:05)
--- NOTE | 2019-05-02 14:37 | P.HPIM ---
History of Present Illness H&P Date: 05/02/19 Chief Complaint: Chest pain History of presenting complaint: This is a pleasant 59-year-old patient being followed by visiting physicians Dr. Beau Wagoner. Chronic stable medical conditions include hyperlipidemia, hypertension, hypothyroid, chronic PE for which she's on 02, chronic lumbar pain from herniated disc, morbid obesity, GERD, restless leg syndrome, hypothyroid and chronic urinary stress incontinence. Patient does as a legal guardian. Lives by herself. Patient presented with left anterior chest wall pain. [place] like a muscle cramp. Also down the left arm. No shortness of breath no dizziness no lightheadedness. Been present for a few hours. Patient admitted from the ER for further workup of a cardiac cause. Patient somewhat being anxious seeing being in the hospital. Review of systems: GEN.: Tired EYES: None HEENT: None NECK: None RESPIRATORY: None CARDIOVASCULAR: As above GASTROINTESTINAL: None GENITOURINARY: Urinary incontinence MUSCULOSKELETAL: Some pain in the lower back LYMPHATICS: None HEMATOLOGICAL: None PSYCHIATRY: Anxious NEUROLOGICAL: None Past medical history to include: hyperlipidemia, hypertension, hypothyroid, chronic PE for which she's on 02, chronic lumbar pain from herniated disc, morbid obesity, GERD, restless leg syndrome, hypothyroid and chronic urinary stress incontinence. Bipolar disorder Social history: Does not smoke. No alcohol. Has a court appointed legal guardian Taty. Family history: Lung cancer Physical examination: VITAL SIGNS: 97.5, 71, 18, 120/71, 99% room air GENERAL: BMI 67.9, sitting at the edge of the bed, anxious. EYES: Pupils equal. Conjunctiva normal. HEENT: External appearance of nose and ears normal, oral cavity grossly normal. NECK: JVD not raised; masses not palpable. HEART: Distant heart sounds; no edema. LUNGS: Respiratory rate normal; distant breath sounds. ABDOMEN: Soft, nontender, liver spleen not palpable, no masses palpable. PSYCH: Alert and oriented x3; mood and affect anxiousl. NEUROLOGICAL: Cranial nerves grossly intact; no facial asymmetry, power and sensation grossly intact. LYMPHATICS: No lymph nodes palpable in the axilla and neck INVESTIGATIONS, reviewed in the clinical context: White count 8 hemoglobin 11.6 potassium 3.9 bun 34 creatinine 0.8 Troponin less than 0.012 EKG tracing personally reviewed by me-normal sinus rhythm Chest x-ray film personally reviewed by me-borderline cardiomegaly some atelectasis Assessment: -Left anterior chest wall pain with some atypical features. Rule out a cardiac cause initial cardiac enzyme is negative. -Hyperlipidemia -Essential hypertension -Hypothyroid -Chronic pulmonary embolism for which patient is on Xarelto -Chronic lumbar pain from donated disc -Morbid obesity BMI 67.9 -GERD -Restless leg syndrome -Chronic urinary stress incontinence -Bipolar disorder -Patient has a court appointed guardian Plan: Home medications resumed. Patient is on aspirin and beta jacque. Also N itropaste added. Cardiology was consulted. Care was discussed with the patient. Put on telemetry. Care was discussed with the patient. Past Medical History Past Medical History: Asthma, Heart Failure, COPD, Diabetes Mellitus, GERD/Reflux, Hyperlipidemia, Hypertension, Musculoskeletal Disorder, Osteoarthritis (OA), Pneumonia, Pulmonary Embolus (PE), Thyroid Disorder Additional Past Medical History / Comment(s): chronic low back pain, herniated discs, RLS, leg edema, anemia, gout bilateral feet, hypothyroid, UTIs, hx cellulitis, cataracts, macular degeneration History of Any Multi-Drug Resistant Organisms: None Reported Past Surgical History: Bariatric Surgery, Heart Catheterization, Hernia Repair, Orthopedic Surgery Additional Past Surgical History / Comment(s): Total Right knee replacement, 3 abdominal hernia repairs, left hip repair d/t fracture, gastric bypass/revision, colonoscopy. Past Anesthesia/Blood Transfusion Reactions: No Reported Reaction Past Psychological History: Anxiety, Bipolar, Depression, Panic Disorder, PTSD Additional Psychological History / Comment(s): Borderline personality disorder. She states she sees a psychiatrist at [facility] and has a case briefer there. Pt has a legal guardian , Caroline Chand. She cannot drive, she either takes the bus to [place] or legal guardian drives her to [place]. She uses a cane or a walker to ambulate. She has a glucometer but no longer has to monitor her blood sugars. She is worried about her cat stating there is nobody to take care of her. Smoking Status: Never smoker Past Alcohol Use History: Occasional Additional Past Alcohol Use History / Comment(s): In -' was for three years an everyday drinker Past Drug Use History: None Reported - Past Family History Mother Family Medical History: Cancer Additional Family Medical History / Comment(s): lung cancer Father Family Medical History: Diabetes Mellitus Additional Family Medical History / Comment(s): "my dad from a blood clot that traveled from his leg to his lung and also caused a heart attack." Brother(s) Family Medical History: Diabetes Mellitus Sister(s) Additional Family Medical History / Comment(s): "her heart races too fast" Medications and Allergies Home Medications Medication Instructions Recorded Confirmed Type Atorvastatin [Lipitor] 10 mg PO HS 06/07/17 05/02/19 History Carvedilol [Coreg] 25 mg PO BID 06/07/17 05/02/19 History Loratadine [Claritin] 10 mg PO DAILY 06/07/17 05/02/19 History Multivitamins, Thera [Multivitamin 1 tab PO DAILY 06/07/17 05/02/19 History (formulary)] Omeprazole 20 mg PO DAILY 06/07/17 05/02/19 History Levothyroxine Sodium [Synthroid] 137 mcg PO DAILY 10/20/17 05/02/19 History Rivaroxaban [Xarelto] 20 mg PO DAILY 90 Days #90 tab 11/18/17 05/02/19 Rx Montelukast [Singulair] 10 mg PO DAILY 06/28/18 05/02/19 History Cholecalciferol (Vitamin D3) 10,000 unit PO DAILY 07/23/18 05/02/19 History [Vitamin D3] DULoxetine HCL [Cymbalta] 60 mg PO DAILY 08/15/18 05/02/19 History Gabapentin [Neurontin] 300 mg PO DAILY 08/15/18 05/02/19 History Ferrous Sulfate [Feosol] 325 mg PO BID 11/05/18 05/02/19 History Lactobacillus Acidophilus 1 tab PO BID 11/05/18 05/02/19 History [Acidophilus] Miconazole 2% Cream [Monistat-Derm] 1 applic TOPICAL TID 11/05/18 05/02/19 History rOPINIRole HCL 4 mg PO BID 11/18/18 05/02/19 History Torsemide [Demadex] 50 mg PO SUTUTHSA 12/15/18 05/02/19 History Torsemide [Demadex] 100 mg PO MOWEFR 12/15/18 05/02/19 History Cyanocobalamin (Vitamin B-12) 1,000 mcg PO DAILY 01/31/19 05/02/19 History [Vitamin B-12] Magnesium Oxide 400 mg PO DAILY 02/26/19 05/02/19 History Potassium Chloride [Klor-Con 20] 40 meq PO BID 02/26/19 05/02/19 History Celecoxib [CeleBREX] 400 mg PO DAILY 03/14/19 05/02/19 History Diclofenac Sodium [Voltaren Gel] 1 applic TOPICAL BID PRN 04/22/19 05/02/19 History Loperamide [Imodium] 2 mg PO QID PRN 04/22/19 05/02/19 History Mometasone Cream 0.1% 1 applic TOPICAL DAILY 04/22/19 05/02/19 History OLANZapine [ZyPREXA] 2.5 mg PO HS 04/22/19 05/02/19 History Ondansetron HCl [Zofran] 4 mg PO BID PRN 04/22/19 05/02/19 History Allergies Allergy/AdvReac Type Severity Reaction Status Date / Time buspirone [From BuSpar] Allergy Unknown Verified 05/02/19 11:02 haloperidol [From Haldol] Allergy Swelling Verified 05/02/19 11:02 iodine Allergy Swelling Verified 05/02/19 11:02 Penicillins Allergy Swelling Verified 05/02/19 11:02 prochlorperazine Allergy Rash/Hives Verified 05/02/19 11:02 Sulfa (Sulfonamide Allergy Rash/Hives Verified 05/02/19 11:02 Antibiotics) Tetanus Vaccines and Toxoid Allergy Rash/Hives Verified 05/02/19 11:02 [Tetanus Vaccines & Toxoid] trifluoperazine HCl Allergy Unknown Verified 05/02/19 11:02 [From Stelazine] hydroxyzine [From Vistaril] AdvReac Rash/Hives Verified 05/02/19 11:02 Physical Exam Vitals: Vital Signs Temp Pulse Pulse Resp BP BP Pulse Ox 05/02/19 12:47 97.5 F L 71 18 120/71 99 05/02/19 12:40 76 18 128/67 98 05/02/19 11:14 98.2 F 75 18 113/79 97 Intake and Output 05/01/19 05/02/19 05/02/19 22:59 06:59 14:59 Other: Weight 182.344 kg Results CBC & Chem 7: 05/02/19 11:00 05/02/19 11:00 Labs: Abnormal Lab Results - Last 24 Hours (Table) 05/02/19 Range/Units 11:00 BUN 34 H (7-17) mg/dL Glucose 58 L (74-99) mg/dL Thrombosis Risk Factor Assmnt - Choose All That Apply Each Factor Represents 1 point: Age 41-60 years, Heart failure (<1month), Obesity (BMI >25), Swollen legs (current) Thrombosis Risk Factor Assessment Total Risk Factor Score: 4 Thrombosis Risk Factor Assessment Level: Moderate Risk
[2019-05-02] MEDS ORDERED: LOPERAMIDE 2 MG CAP PO PRN (15:34)
[2019-05-02] MEDS ORDERED: DICLOFENAC SODIUM GEL 100 GM TUBE TOPICAL PRN (15:34)
[2019-05-02] MEDS ORDERED: ONDANSETRON 4 MG TAB PO PRN (15:34)
[2019-05-02] MEDS ORDERED: GABAPENTIN 300 MG CAP PO STA (15:41)
[2019-05-02] MEDS: NITROGLYCERIN OINT 1 INCH/GM PACKET TOPICAL SCH (16:00)
[2019-05-02] MEDS: MONTELUKAST 10 MG TAB PO SCH (17:16)
[2019-05-02] MEDS: MELOXICAM 7.5 MG TAB PO SCH (17:16)
[2019-05-02] MEDS: MICONAZOLE NITRATE 2% CREAM 14 GM TUBE TOPICAL SCH ×2 (17:18→22:41)
[2019-05-02] MEDS: POTASSIUM CHLORIDE ER 20 MEQ TAB.ER PO SCH (20:04)
[2019-05-02] MEDS: FERROUS SULFATE 325 MG TAB PO SCH (20:04)
[2019-05-02] MEDS ORDERED: LORazepam 2 MG/ML INJ IM STA ×2 (20:29→21:07)
[2019-05-02] MEDS ORDERED: ZIPRASIDONE 20 MG VIAL IM STA ×2 (20:29→21:08)
[2019-05-02] MEDS ORDERED: OLANZapine 2.5 MG TAB PO SCH (21:00)
[2019-05-02] MEDS ORDERED: ATORVASTATIN 10 MG TAB PO SCH (21:00)
[2019-05-02] MEDS: rOPINIRole HCL 4 MG TABLET PO SCH (21:01)
[2019-05-02] MEDS: LACTOBACILLUS ACIDOPH & BULGAR 1 EACH PACKET PO SCH (22:41)
[2019-05-02] MEDS: CARVEDILOL 12.5 MG TAB PO SCH (22:41)
[2019-05-03] MEDS: NITROGLYCERIN OINT 1 INCH/GM PACKET TOPICAL SCH ×3 (00:41→12:54)
[2019-05-03 03:56] LABS: Cholesterol 165 mg/dL (<200); HDL Cholesterol 48 mg/dL (40-60); LDL Cholesterol,Calculated 67 mg/dL (0-99); Triglycerides 249 mg/dL (<150)
[2019-05-03] MEDS: CARVEDILOL 12.5 MG TAB PO SCH (05:59)
[2019-05-03 06:28] LABS: Glucose,Whole Blood 112 mg/dL (75-99)
[2019-05-03] MEDS ORDERED: LEVOTHYROXINE 137 MCG TAB PO SCH (06:30)
[2019-05-03] MEDS ORDERED: PANTOPRAZOLE 40 MG TABLET PO SCH (07:30)
[2019-05-03] MEDS ORDERED: GABAPENTIN 300 MG CAP PO SCH (09:00)
[2019-05-03] MEDS ORDERED: DULoxetine HCL 60 MG CAPSULE.DR PO SCH (09:00)
[2019-05-03] MEDS ORDERED: TORSEMIDE 20 MG TAB PO SCH (09:00)
[2019-05-03] MEDS ORDERED: TRIAMCINOLONE 0.1% CREAM 80 GM TUBE TOPICAL SCH (09:00)
[2019-05-03] MEDS ORDERED: RIVAROXABAN 20 MG TAB PO SCH (09:00)
[2019-05-03] MEDS ORDERED: MULTIVITAMINS, THERA 1 EACH TAB PO SCH (09:00)
[2019-05-03] MEDS ORDERED: MAGNESIUM OXIDE 400 MG TAB PO SCH (09:00)
[2019-05-03 09:24] VITALS: TEMP 98.4
[2019-05-03] MEDS: MELOXICAM 7.5 MG TAB PO SCH (09:55)
[2019-05-03] MEDS: ASPIRIN 325 MG TAB PO SCH ×2 (09:55→10:07)
[2019-05-03] MEDS: MONTELUKAST 10 MG TAB PO SCH (09:56)
[2019-05-03] MEDS: POTASSIUM CHLORIDE ER 20 MEQ TAB.ER PO SCH (09:56)
[2019-05-03] MEDS: FERROUS SULFATE 325 MG TAB PO SCH ×2 (09:56→10:07)
[2019-05-03] MEDS: LACTOBACILLUS ACIDOPH & BULGAR 1 EACH PACKET PO SCH ×2 (09:58→10:07)
[2019-05-03] MEDS: MICONAZOLE NITRATE 2% CREAM 14 GM TUBE TOPICAL SCH (10:05)
[2019-05-03] MEDS: rOPINIRole HCL 4 MG TABLET PO SCH (10:18)
[2019-05-03] MEDS ORDERED: LORazepam 1 MG TAB PO STA (10:32)
[2019-05-03] MEDS ORDERED: LORazepam 2 MG/ML INJ IM STA (10:42)
[2019-05-03 12:22] LABS: Glucose,Whole Blood 118 mg/dL (75-99)
--- NOTE | 2019-05-03 13:11 | CONS ---
CONSULTATION CHIEF COMPLAINT: Chest pain. This is a 59-year-old lady who is morbidly obese, has history of mitral regurgitation, who presented to hospital complaining of chest pain. She describes it as precordial chest pressure, unrelated with exertion ( ) diaphoresis with no definite radiation to neck, arm or back. While in the emergency room, there was a question about suicidal ideation due to which she was admitted and she has a sitter at bedside. She is not very happy to be in the hospital. She had one set of troponin that is negative. She actually had a cardiac catheterization in June of last year that revealed normal coronary arteries. She also has moderate mitral regurgitation. PAST MEDICAL HISTORY: Significant for pulmonary embolism, GERD, restless legs, bipolar mood disorder, diabetes, heart failure. MEDICATIONS: Medications at home included Lipitor, Coreg, levothyroxine, Xarelto, Singulair, Cymbalta, Neurontin, Demadex, and Celebrex. ALLERGIES: Are as charted. FAMILY HISTORY: Negative for premature coronary artery disease. SOCIAL HISTORY: Negative for smoking. REVIEW OF SYSTEMS: HEENT is unremarkable. CARDIAC: As described above. RESPIRATORY: Negative. GI: Negative. GENITOURINARY: Negative. ALLERGY/IMMUNOLOGY: Negative. SKIN: Negative. MUSCULOSKELETAL: Arthritis. PSYCHOSOCIAL: Negative. ENDOCRINE: Negative. DERM: Negative. CONSTITUTIONAL: Negative. ONCOLOGICAL: Negative. The rest of the system review is not relevant. EXAM: She is comfortable at rest. Vital signs are stable. Chest exam reveals good air entry bilaterally. Heart exam reveals first and second heart sounds. No gallop. Abdomen is soft. Exam of extremities reveals bilateral foot edema. Peripheral pulses are felt. LAB: Showed that the hemoglobin is normal. One set of troponin is negative. LDL cholesterol is 67. ASSESSMENT: 1. Precordial chest pain, atypical, probably noncardiac. Cardiac enzymes are negative. She had normal coronaries on recent cath and does not require any further workup. 2. History of pulmonary embolism. She is on anticoagulant. Continue the same. 3. Moderate mitral regurgitation. We will do an echocardiogram today to assess underlying mitral regurgitation. MMODL / IJN: [id number] /
--- NOTE | 2019-05-03 14:01 | ECHOF ---
Referral Reason:chest pain MEASUREMENTS -------- HEIGHT: 165.1 cm WEIGHT: 180.1 kg BP: 141/92 RVIDd: 4.0 cm (< 3.3) IVSd: 1.7 cm (0.6 - 1.1) LVIDd: 3.9 cm (3.9 - 5.3) LVPWd: 1.5 cm (0.6 - 1.1) IVSs: 2.1 cm LVIDs: 2.4 cm LVPWs: 2.0 cm LAESV Index (A-L): 16.67 ml/m Ao Diam: 3.4 cm (2.0 - 3.7) AV Cusp: 1.1 cm (1.5 - 2.6) LA Diam: 4.5 cm (2.7 - 3.8) MV E Wade: 0.58 m/s MV DecT: 210 ms MV A Wade: 0.92 m/s MV E/A Ratio: 0.62 AV maxP.71 mmHg AV meanP.21 mmHg FINDINGS -------- Sinus rhythm. This was a technically difficult study with suboptimal views. Morbid Obesity Patient refused Clary son. The left ventricular size is normal. There is moderate concentric left ventricular hypertrophy. O verall left ventricular systolic function is normal with, an EF between 55 - 60 %. The diastolic fi lling pattern is normal for the age of the patient 9.56. The right ventricle is moderately enlarged. Normal LA size by volume 22+/-6 ml/m2. The right atrium was not well visualized. Interatrial and interventricular septum intact. There is no evidence of aortic regurgitation. Mild aortic stenosis with peak/mean pressure gradient of 21.71mmHg / 14.21mmHg , the aortic valve area by continuity equation is 1.5cm. The aortic valv e area by continuity equation is {TILA}. Peak/mean gradient across the Aortic Valve is 21.71mmHg / 1 4.21mmHg. Mild mitral regurgitation is present. Mild tricuspid regurgitation present. There is no evidence of pulmonary hypertension. The right v entricular systolic pressure, as measured by Doppler, is {RVSP}. Trace/mild (physiologic) pulmonic regurgitation. The aortic root size is normal. IVC Not well visulized. There is no pericardial effusion. CONCLUSIONS -------- 1. Sinus rhythm. 2. This was a technically difficult study with suboptimal views. 3. Morbid Obesity 4. The left ventricular size is normal. 5. There is moderate concentric left ventricular hypertrophy. 6. Overall left ventricular systolic function is normal with, an EF between 55 - 60 %. 7. The diastolic filling pattern is normal for the age of the patient 9.56 8. The right ventricle is moderately enlarged. 9. Normal LA size by volume 22+/-6 ml/m2. 10. The right atrium was not well visualized. 11. Interatrial and interventricular septum intact. 12. There is no evidence of aortic regurgitation. 13. Mild aortic stenosis with peak/mean pressure gradient of 21.71mmHg / 14.21mmHg , the aortic valve area by continuity equation is 1.5cm. 14. The aortic valve area by continuity equation is {TILA}. 15. Peak/mean gradient across the Aortic Valve is 21.71mmHg / 14.21mmHg. 16. Mild mitral regurgitation is present. 17. Mild tricuspid regurgitation present. 18. There is no evidence of pulmonary hypertension. 19. The right ventricular systolic pressure, as measured by Doppler, is {RVSP}. 20. Trace/mild (physiologic) pulmonic regurgitation. 21. The aortic root size is normal. 22. IVC Not well visulized. 23. There is no pericardial effusion. HYDROGRAPHICAL TECHNICAL OFFICER: Deidra Rowan RDCS
[2019-05-03] MEDS ORDERED: DULoxetine HCL 30 MG CAPSULE.DR PO STA (14:05)
[2019-05-03] MEDS ORDERED: OLANZapine 5 MG TAB PO STA (14:05)
[2019-05-03 14:28] VITALS: BP 144/69; PULSE 98; RESP 16
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
--- NOTE | 2019-05-04 00:52 | P.DS ---
Providers Date of admission: 05/02/19 12:25 Expected date of discharge: 05/03/19 Attending physician: Watson Pope Consults: 05/02/19 12:25 Consult Physician Urgent Consulting Provider: Mitch Edwards Consult Reason/Comments: cp Do you want consulting provider notified?: Yes 05/03/19 10:43 Consult Physician Stat Consulting Provider: Dm Lockett Consult Reason/Comments: suicidal ideation Do you want consulting provider notified?: Yes Primary care physician: Beau aJde MD Hospital Course: Chief Complaint: Chest pain Hospital course: This is a pleasant 59-year-old patient being followed by visiting physicians Dr. Beau Wagoner. Chronic stable medical conditions include hyperlipidemia, hypertension, hypothyroid, chronic PE for which she's on , chronic lumbar pain from herniated disc, morbid obesity, GERD, restless leg syndrome, hypothyroid and chronic urinary stress incontinence. Patient does as a legal guardian. Lives by herself. Patient presented with left anterior chest wall pain. [place] like a muscle cramp. Also down the left arm. No shortness of breath no dizziness no lightheadedness. Been present for a few hours. Patient admitted from the ER for further workup of a cardiac cause. Patient somewhat being anxious seeing being in the hospital. Seen by cardiac surgery. Had a cardiac catheterization in June of last year. That was negative. Patient was okay to be discharged. Also seen by psychiatry because patient having rather agitated behavior. Patient does of Cymbalta was increased from 60-90 mg and Zyprexa was increased from 2.5-5 mg. Patient doing stable at discharge. Patient does have a court appointed legal guardian. Consultation: Dr. Sudheer Edwards from cardiogenic from psychiatry Physical examination: VITAL SIGNS: 98.4, 98, 16, 140/69, 100% room air GENERAL: BMI 67.9, sitting at the edge of the bed, more comfortable EYES: Pupils equal. Conjunctiva normal. HEENT: External appearance of nose and ears normal, oral cavity grossly normal. NECK: JVD not raised; masses not palpable. HEART: Distant heart sounds; no edema. LUNGS: Respiratory rate normal; distant breath sounds. ABDOMEN: Soft, nontender, liver spleen not palpable, no masses palpable. PSYCH: Alert and oriented x3; mood and affect fatherless anxious. INVESTIGATIONS, reviewed in the clinical context: White count 8 hemoglobin 11.6 potassium 3.9 bun 34 creatinine 0.8 Troponin less than 0.012 EKG tracing personally reviewed by me-normal sinus rhythm Chest x-ray film personally reviewed by me-borderline cardiomegaly some atelectasis 2-D echo-EF 55-60% moderate concentric left medical hypertrophy, Assessment: -Left anterior chest wall pain with some atypical features. Possibly psychoso matic. -Hyperlipidemia -Essential hypertension -Hypertensive heart disease -Hypothyroid -Chronic pulmonary embolism for which patient is on Xarelto -Chronic lumbar pain from donated disc -Morbid obesity BMI 67.9 -GERD -Restless leg syndrome -Chronic urinary stress incontinence -Bipolar disorder with depression -Patient has a court appointed guardian Disposition: Home Patient Condition at Discharge: Stable Plan - Discharge Summary Discharge Rx Participant: No New Discharge Prescriptions: New OLANZapine [ZyPREXA] 2.5 mg PO HS #7 tab DULoxetine HCL [Cymbalta] 30 mg PO HS #7 cap Continue Carvedilol [Coreg] 25 mg PO BID Atorvastatin [Lipitor] 10 mg PO HS Omeprazole 20 mg PO DAILY Multivitamins, Thera [Multivitamin (formulary)] 1 tab PO DAILY Levothyroxine Sodium [Synthroid] 137 mcg PO DAILY Rivaroxaban [Xarelto] 20 mg PO DAILY 90 Days #90 tab Montelukast [Singulair] 10 mg PO DAILY Cholecalciferol (Vitamin D3) [Vitamin D3] 10,000 unit PO DAILY Gabapentin [Neurontin] 300 mg PO DAILY DULoxetine HCL [Cymbalta] 60 mg PO HS Miconazole 2% Cream [Monistat-Derm] 1 applic TOPICAL TID Lactobacillus Acidophilus [Acidophilus] 1 tab PO BID Ferrous Sulfate [Iron (65 MG Elemental)] 325 mg PO BID rOPINIRole HCL 4 mg PO BID Torsemide [Demadex] 100 mg PO MOWEFR Torsemide [Demadex] 50 mg PO SUTUTHSA Cyanocobalamin (Vitamin B-12) [Vitamin B-12] 1,000 mcg PO DAILY Potassium Chloride [Klor-Con 20] 40 meq PO BID Magnesium Oxide 400 mg PO DAILY Celecoxib [CeleBREX] 400 mg PO DAILY Ondansetron HCl [Zofran] 4 mg PO BID PRN PRN Reason: Nausea And Vomiting OLANZapine [ZyPREXA] 2.5 mg PO HS Loperamide [Imodium] 2 mg PO QID PRN PRN Reason: Diarrhea Diclofenac Sodium [Voltaren Gel] 1 applic TOPICAL BID PRN PRN Reason: Pain Mometasone Cream 0.1% 1 applic TOPICAL DAILY Discontinued Loratadine [Claritin] 10 mg PO DAILY Discharge Medication List Atorvastatin [Lipitor] 10 mg PO HS 06/07/17 [History] Carvedilol [Coreg] 25 mg PO BID 06/07/17 [History] Multivitamins, Thera [Multivitamin (formulary)] 1 tab PO DAILY 06/07/17 [History] Omeprazole 20 mg PO DAILY 06/07/17 [History] Levothyroxine Sodium [Synthroid] 137 mcg PO DAILY 10/20/17 [History] Rivaroxaban [Xarelto] 20 mg PO DAILY 90 Days #90 tab 11/18/17 [Rx] Montelukast [Singulair] 10 mg PO DAILY 06/28/18 [History] Cholecalciferol (Vitamin D3) [Vitamin D3] 10,000 unit PO DAILY 07/23/18 [History] DULoxetine HCL [Cymbalta] 60 mg PO HS 08/15/18 [History] Gabapentin [Neurontin] 300 mg PO DAILY 08/15/18 [History] Ferrous Sulfate [Iron (65 MG Elemental)] 325 mg PO BID 11/05/18 [History] Lactobacillus Acidophilus [Acidophilus] 1 tab PO BID 11/05/18 [History] Miconazole 2% Cream [Monistat-Derm] 1 applic TOPICAL TID 11/05/18 [History] rOPINIRole HCL 4 mg PO BID 11/18/18 [History] Torsemide [Demadex] 50 mg PO SUTUTHSA 12/15/18 [History] Torsemide [Demadex] 100 mg PO MOWEFR 12/15/18 [History] Cyanocobalamin (Vitamin B-12) [Vitamin B-12] 1,000 mcg PO DAILY 01/31/19 [History] Magnesium Oxide 400 mg PO DAILY 02/26/19 [History] Potassium Chloride [Klor-Con 20] 40 meq PO BID 02/26/19 [History] Celecoxib [CeleBREX] 400 mg PO DAILY 03/14/19 [History] Diclofenac Sodium [Voltaren Gel] 1 applic TOPICAL BID PRN 04/22/19 [History] Loperamide [Imodium] 2 mg PO QID PRN 04/22/19 [History] Mometasone Cream 0.1% 1 applic TOPICAL DAILY 04/22/19 [History] OLANZapine [ZyPREXA] 2.5 mg PO HS 04/22/19 [History] Ondansetron HCl [Zofran] 4 mg PO BID PRN 04/22/19 [History] DULoxetine HCL [Cymbalta] 30 mg PO HS #7 cap 05/03/19 [Rx] OLANZapine [ZyPREXA] 2.5 mg PO HS #7 tab 05/03/19 [Rx] Follow up Appointment(s)/Referral(s): psychiatristdr [Other] - 1 Week Beau Jade MD [Primary Care Provider] - 1-2 days Patient Instructions/Handouts: Angina (DC), Depression (DC) Discharge Disposition: HOME SELF-CARE
[2019-05-04] MEDS ORDERED: TORSEMIDE 20 MG TAB PO SCH (09:00)
== END 2019-05-03 15:20 | disposition home or self-care (01) ==
LOC: EC 10:51 → 1SOBS 12:25 → 3SCARD 18:16
PROVIDERS: ADMIT Hospitalist; ATTEND Hospitalist
DX: R53.83 Other fatigue (principal); R06.02 Shortness of breath; R07.2 Precordial pain; R07.89 Other chest pain; M79.602 Pain in left arm; E78.5 Hyperlipidemia, unspecified; E03.9 Hypothyroidism, unspecified; I27.82 Chronic pulmonary embolism; E66.01 Morbid (severe) obesity due to excess calories; Z68.44 Body mass index [BMI] 60.0-69.9, adult; K21.9 Gastro-esophageal reflux disease without esophagitis; G25.81 Restless legs syndrome; N39.3 Stress incontinence (female) (male); F31.9 Bipolar disorder, unspecified; J44.9 Chronic obstructive pulmonary disease, unspecified; G89.29 Other chronic pain; M51.26 Other intervertebral disc displacement, lumbar region; I11.0 Hypertensive heart disease with heart failure; I50.9 Heart failure, unspecified; E11.9 Type 2 diabetes mellitus without complications; M19.90 Unspecified osteoarthritis, unspecified site; D64.9 Anemia, unspecified; M79.89 Other specified soft tissue disorders; M10.9 Gout, unspecified; I34.0 Nonrheumatic mitral (valve) insufficiency; H26.9 Unspecified cataract; H35.30 Unspecified macular degeneration; F43.10 Post-traumatic stress disorder, unspecified; F41.0 Panic disorder [episodic paroxysmal anxiety]; F60.3 Borderline personality disorder; Z99.81 Dependence on supplemental oxygen; Z98.84 Bariatric surgery status; R45.851 Suicidal ideations; Z79.82 Long term (current) use of aspirin; Z79.01 Long term (current) use of anticoagulants; Z79.899 Other long term (current) drug therapy; Z87.440 Personal history of urinary (tract) infections; Z87.01 Personal history of pneumonia (recurrent); Z86.19 Personal history of other infectious and parasitic diseases; Z91.5 Personal history of self-harm; Z96.651 Presence of right artificial knee joint; Z79.890 Hormone replacement therapy; Z88.0 Allergy status to penicillin; Z88.2 Allergy status to sulfonamides; Z88.7 Allergy status to serum and vaccine; Z88.8 Allergy status to other drugs, medicaments and biological substances; Z91.048 Other nonmedicinal substance allergy status; Z80.1 Family history of malignant neoplasm of trachea, bronchus and lung; Z82.49 Family history of ischemic heart disease and other diseases of the circulatory system; Z83.3 Family history of diabetes mellitus
CPT/HCPCS: 96372 ×2; 96374; 99285; 36415; 93005; 93306; 83880; 80061; 80053; 83735; 84484; 85025; 85610; 85730; 71046; G0378 ×2; J2060 ×2; J3486

== ENCOUNTER 2019-05-04 16:12 | Emergency (ER) | payer MEDICARE, OTHER ==
--- NOTE | 2019-05-04 18:37 | ED ---
Psych HPI - General Stated Complaint: fall Time Seen by Provider: 05/04/19 16:57 Source: RN notes reviewed, old records reviewed - History of Present Illness Initial Comments: This is a 59-year-old female the ER for evaluation. Patient resents today for evaluation regards to multiple complaints she had a fall with dizziness at home but mainly just admits to not feeling well. Feeling sad. Patient is recent hospital admission for states she was shows be admitted for psychiatry but did not have any beds for her. Patient states that she feels still feels sad. She states that she is dieting day. She had both parents who in their 50s. Patient is had multiple people that she knows diarrhea occurs well. MD Complaint: feels depressed -: days(s) Associated Psychiatric Symptoms: depression History of same: Yes Quality: intermittent, getting worse Improves With: none Worsens With: none Context: significant life stressor Associated Symptoms: denies other symptoms Treatments Prior to Arrival: placed on mental health hold - Related Data Home Medications Medication Instructions Recorded Confirmed Atorvastatin [Lipitor] 10 mg PO HS 06/07/17 05/04/19 Carvedilol [Coreg] 25 mg PO BID 06/07/17 05/04/19 Multivitamins, Thera [Multivitamin 1 tab PO DAILY 06/07/17 05/04/19 (formulary)] Omeprazole 20 mg PO DAILY 06/07/17 05/04/19 Levothyroxine Sodium [Synthroid] 137 mcg PO DAILY 10/20/17 05/04/19 Montelukast [Singulair] 10 mg PO DAILY 06/28/18 05/04/19 Cholecalciferol (Vitamin D3) 10,000 unit PO DAILY 07/23/18 05/04/19 [Vitamin D3] DULoxetine HCL [Cymbalta] 60 mg PO HS 08/15/18 05/04/19 Gabapentin [Neurontin] 300 mg PO DAILY 08/15/18 05/04/19 Ferrous Sulfate [Iron (65 MG 325 mg PO BID 11/05/18 05/04/19 Elemental)] Lactobacillus Acidophilus 1 tab PO BID 11/05/18 05/04/19 [Acidophilus] Miconazole 2% Cream [Monistat-Derm] 1 applic TOPICAL TID 11/05/18 05/04/19 rOPINIRole HCL 4 mg PO BID 11/18/18 05/04/19 Torsemide [Demadex] 50 mg PO SUTUTHSA 12/15/18 05/04/19 Torsemide [Demadex] 100 mg PO MOWEFR 12/15/18 05/04/19 Cyanocobalamin (Vitamin B-12) 1,000 mcg PO DAILY 01/31/19 05/04/19 [Vitamin B-12] Magnesium Oxide 400 mg PO DAILY 02/26/19 05/04/19 Potassium Chloride [Klor-Con 20] 40 meq PO BID 02/26/19 05/04/19 Celecoxib [CeleBREX] 400 mg PO DAILY 03/14/19 05/04/19 Diclofenac Sodium [Voltaren Gel] 1 applic TOPICAL BID PRN 04/22/19 05/04/19 Loperamide [Imodium] 2 mg PO QID PRN 04/22/19 05/04/19 Mometasone Cream 0.1% 1 applic TOPICAL DAILY 04/22/19 05/04/19 Ondansetron HCl [Zofran] 4 mg PO BID PRN 04/22/19 05/04/19 OLANZapine [ZyPREXA] 5 mg PO HS 05/04/19 05/04/19 Previous Rx's Medication Instructions Recorded Rivaroxaban [Xarelto] 20 mg PO DAILY 90 Days #90 tab 11/18/17 DULoxetine HCL [Cymbalta] 30 mg PO HS #7 cap 05/03/19 Allergies Allergy/AdvReac Type Severity Reaction Status Date / Time buspirone [From BuSpar] Allergy Unknown Verified 05/04/19 16:59 haloperidol [From Haldol] Allergy Swelling Verified 05/04/19 16:59 iodine Allergy Swelling Verified 05/04/19 16:59 Penicillins Allergy Swelling Verified 05/04/19 16:59 prochlorperazine Allergy Rash/Hives Verified 05/04/19 16:59 Sulfa (Sulfonamide Allergy Rash/Hives Verified 05/04/19 16:59 Antibiotics) Tetanus Vaccines and Toxoid Allergy Rash/Hives Verified 05/04/19 16:59 [Tetanus Vaccines & Toxoid] trifluoperazine HCl Allergy Unknown Verified 05/04/19 16:59 [From Stelazine] hydroxyzine [From Vistaril] AdvReac Rash/Hives Verified 05/04/19 16:59 Review of Systems ROS Statement: Those systems with pertinent positive or pertinent negative responses have been documented in the HPI. ROS Other: All systems not noted in ROS Statement are negative. Past Medical History Past Medical History: Asthma, Heart Failure, COPD, Diabetes Mellitus, GERD/Reflux, Hyperlipidemia, Hypertension, Musculoskeletal Disorder, Osteoarthritis (OA), Pneumonia, Pulmonary Embolus (PE), Thyroid Disorder Additional Past Medical History / Comment(s): chronic low back pain, herniated discs, RLS, leg edema, anemia, gout bilateral feet, hypothyroid, UTIs, hx cellulitis, cataracts, macular degeneration History of Any Multi-Drug Resistant Organisms: None Reported Past Surgical History: Bariatric Surgery, Heart Catheterization, Hernia Repair, Orthopedic Surgery Additional Past Surgical History / Comment(s): Total Right knee replacement, 3 abdominal hernia repairs, left hip repair d/t fracture, gastric bypass/revision, colonoscopy. Past Anesthesia/Blood Transfusion Reactions: No Reported Reaction Past Psychological History: Anxiety, Bipolar, Depression, Panic Disorder, PTSD Additional Psychological History / Comment(s): Borderline personality disorder. She states she sees a psychiatrist at [facility] and has a manager case management there. Pt has a legal guardian , Caroline Chand. She cannot drive, she either takes the bus to [place] or legal guardian drives her to [place]. She uses a cane or a walker to ambulate. She has a glucometer but no longer has to monitor her blood sugars. She is worried about her cat stating there is nobody to take care of her. Smoking Status: Never smoker Past Alcohol Use History: Occasional Additional Past Alcohol Use History / Comment(s): In -' was for three years an everyday drinker Past Drug Use History: None Reported - Past Family History Mother Family Medical History: Cancer Additional Family Medical History / Comment(s): lung cancer Father Family Medical History: Diabetes Mellitus Additional Family Medical History / Comment(s): "my dad from a blood clot that traveled from his leg to his lung and also caused a heart attack." Brother(s) Family Medical History: Diabetes Mellitus Sister(s) Additional Family Medical History / Comment(s): "her heart races too fast" General Exam General appearance: alert, in no apparent distress Head exam: Present: atraumatic, normocephalic, normal inspection Eye exam: Present: normal appearance, PERRL, EOMI. Absent: scleral icterus, conjunctival injection, periorbital swelling ENT exam: Present: normal exam, mucous membranes moist Neck exam: Present: normal inspection. Absent: tenderness, meningismus, lymphadenopathy Respiratory exam: Present: normal lung sounds bilaterally. Absent: respiratory distress, wheezes, rales, rhonchi, stridor Cardiovascular Exam: Present: regular rate, normal rhythm, normal heart sounds. Absent: systolic murmur, diastolic murmur, rubs, gallop, clicks GI/Abdominal exam: Present: soft, normal bowel sounds. Absent: distended, tenderness, guarding, rebound, rigid Extremities exam: Present: normal inspection, full ROM, normal capillary refill. Absent: tenderness, pedal edema, joint swelling, calf tenderness Back exam: Present: normal inspection Neurological exam: Present: alert, oriented X3, CN II-XII intact Psychiatric exam: Present: normal affect, normal mood Skin exam: Present: warm, dry, intact, normal color. Absent: rash Course - Reevaluation(s) Reevaluation #1: 05/04/19 18:53 Medical record is reviewed and patient's medical clear for psychiatric evaluation Reevaluation #2: 05/04/19 18:53 No significant pain and fall earlier. Patient is ambulatory Medical Decision Making - Medical Decision Making 51 female was seen and evaluated psychiatry here in the ER. Patient deemed stable for discharge and follow-up with [facility], patient currently laughing not suicidal. Disposition Clinical Impression: Depression, Anxiety Disposition: HOME SELF-CARE Condition: Good Instructions (If sedation given, give patient instructions): Depression (ED) Is patient prescribed a controlled substance at d/c from ED?: No Referrals: Beau Jade MD [Primary Care Provider] - 1-2 days
[2019-05-04 19:38] VITALS: BP 142/88; PULSE 60; RESP 18; TEMP 98
== END 2019-05-04 19:48 | disposition home or self-care (01) ==
LOC: EC 16:12
DX: F32.9 Major depressive disorder, single episode, unspecified (principal); F41.9 Anxiety disorder, unspecified; R42 Dizziness and giddiness; E78.5 Hyperlipidemia, unspecified; K21.9 Gastro-esophageal reflux disease without esophagitis; E03.9 Hypothyroidism, unspecified; G25.81 Restless legs syndrome; M19.90 Unspecified osteoarthritis, unspecified site; G89.29 Other chronic pain; M54.5 Low back pain; I11.0 Hypertensive heart disease with heart failure; I50.9 Heart failure, unspecified; M10.9 Gout, unspecified; D64.9 Anemia, unspecified; Z79.1 Long term (current) use of non-steroidal anti-inflammatories (NSAID); Z79.899 Other long term (current) drug therapy; Z79.890 Hormone replacement therapy; Z88.8 Allergy status to other drugs, medicaments and biological substances; Z88.0 Allergy status to penicillin; Z88.2 Allergy status to sulfonamides; Z88.7 Allergy status to serum and vaccine; Z96.651 Presence of right artificial knee joint; Z86.711 Personal history of pulmonary embolism; Z98.84 Bariatric surgery status; Z95.5 Presence of coronary angioplasty implant and graft; W18.30XA Fall on same level, unspecified, initial encounter; Y92.009 Unspecified place in unspecified non-institutional (private) residence as the place of occurrence of the external cause
CPT/HCPCS: 82075; 99285

== ENCOUNTER 2019-05-18 12:40 | Emergency (ER) | payer MEDICARE, OTHER ==
[2019-05-18 12:59] VITALS: TEMP 98.3
--- NOTE | 2019-05-18 13:12 | ED ---
General Adult HPI - General Chief complaint: Nausea/Vomiting/Diarrhea Stated complaint: Chills Time Seen by Provider: 05/18/19 13:02 Source: patient Mode of arrival: ambulatory Limitations: no limitations - History of Present Illness Initial comments: 59-year-old female presents today for chief complaint of nausea vomiting diarrhea she states has been ongoing for a month. Patient states she has an occasional right upper quadrant abdominal pain since she has her gallbladder no previous cholecystectomy. Patient states it is not very severe pain. Patient denies any melena hematochezia. Patient denies any back emesis. Patient denies any chest pain or shortness of breath. Patient denies any jaw pain or upper extremity pain or back pain. Patient denies any lower pelvic pain or vaginal bleeding. Patient states that she is a lot going on in her life and has had many tests. States it could be related to stress. She states that she can take another in her family. Remaining review of system negative. Upon arrival patient appears well no signs of acute distress. - Related Data Home Medications Medication Instructions Recorded Confirmed Atorvastatin [Lipitor] 10 mg PO HS 06/07/17 05/18/19 Carvedilol [Coreg] 25 mg PO BID 06/07/17 05/18/19 Multivitamins, Thera [Multivitamin 1 tab PO DAILY 06/07/17 05/18/19 (formulary)] Omeprazole 20 mg PO DAILY 06/07/17 05/18/19 Levothyroxine Sodium [Synthroid] 137 mcg PO DAILY 10/20/17 05/18/19 Montelukast [Singulair] 10 mg PO DAILY 06/28/18 05/18/19 DULoxetine HCL [Cymbalta] 60 mg PO BID 08/15/18 05/18/19 Gabapentin [Neurontin] 300 mg PO DAILY 08/15/18 05/18/19 Ferrous Sulfate [Iron (65 MG 325 mg PO BID 11/05/18 05/18/19 Elemental)] Lactobacillus Acidophilus 1 tab PO BID 11/05/18 05/18/19 [Acidophilus] Miconazole 2% Cream [Monistat-Derm] 1 applic TOPICAL TID 11/05/18 05/18/19 rOPINIRole HCL 4 mg PO BID 11/18/18 05/18/19 Torsemide [Demadex] 50 mg PO SUTUTHSA 12/15/18 05/18/19 Torsemide [Demadex] 100 mg PO MOWEFR 12/15/18 05/18/19 Cyanocobalamin (Vitamin B-12) 1,000 mcg PO DAILY 01/31/19 05/18/19 [Vitamin B-12] Magnesium Oxide 400 mg PO DAILY 02/26/19 05/18/19 Potassium Chloride [Klor-Con 20] 40 meq PO BID 02/26/19 05/18/19 Celecoxib [CeleBREX] 400 mg PO DAILY 03/14/19 05/18/19 Diclofenac Sodium [Voltaren Gel] 1 applic TOPICAL BID PRN 04/22/19 05/18/19 Loperamide [Imodium] 2 mg PO QID PRN 04/22/19 05/18/19 Mometasone Cream 0.1% 1 applic TOPICAL DAILY 04/22/19 05/18/19 Ondansetron HCl [Zofran] 4 mg PO BID PRN 04/22/19 05/18/19 Cholecalciferol [Vitamin D3 (25 5,000 unit PO DAILY 05/18/19 05/18/19 Mcg = 1000 Iu)] Glimepiride [Amaryl] 2 mg PO AC-BRKFST 05/18/19 05/18/19 OLANZapine [ZyPREXA] 10 mg PO HS 05/18/19 05/18/19 metFORMIN HCL [Glucophage] 500 mg PO BID 05/18/19 05/18/19 Previous Rx's Medication Instructions Recorded Rivaroxaban [Xarelto] 20 mg PO DAILY 90 Days #90 tab 11/18/17 Allergies Allergy/AdvReac Type Severity Reaction Status Date / Time buspirone [From BuSpar] Allergy Unknown Verified 05/18/19 13:28 haloperidol [From Haldol] Allergy Swelling Verified 05/18/19 13:28 iodine Allergy Swelling Verified 05/18/19 13:28 Penicillins Allergy Swelling Verified 05/18/19 13:28 prochlorperazine Allergy Rash/Hives Verified 05/18/19 13:28 Sulfa (Sulfonamide Allergy Rash/Hives Verified 05/18/19 13:28 Antibiotics) Tetanus Vaccines and Toxoid Allergy Rash/Hives Verified 05/18/19 13:28 [Tetanus Vaccines & Toxoid] trifluoperazine HCl Allergy Unknown Verified 05/18/19 13:28 [From Stelazine] hydroxyzine [From Vistaril] AdvReac Rash/Hives Verified 05/18/19 13:28 Review of Systems ROS Statement: Those systems with pertinent positive or pertinent negative responses have been documented in the HPI. ROS Other: All systems not noted in ROS Statement are negative. Past Medical History Past Medical History: Asthma, Heart Failure, COPD, Diabetes Mellitus, GERD/Reflux, Hyperlipidemia, Hypertension, Musculoskeletal Disorder, Osteoarthritis (OA), Pneumonia, Pulmonary Embolus (PE), Thyroid Disorder Additional Past Medical History / Comment(s): chronic low back pain, herniated discs, RLS, leg edema, anemia, gout bilateral feet, hypothyroid, UTIs, hx cellulitis, cataracts, macular degeneration History of Any Multi-Drug Resistant Organisms: None Reported Past Surgical History: Bariatric Surgery, Heart Catheterization, Hernia Repair, Orthopedic Surgery Additional Past Surgical History / Comment(s): Total Right knee replacement, 3 abdominal hernia repairs, left hip repair d/t fracture, gastric bypass/revision, colonoscopy. Past Anesthesia/Blood Transfusion Reactions: No Reported Reaction Past Psychological History: Anxiety, Bipolar, Depression, Panic Disorder, PTSD Smoking Status: Never smoker Past Alcohol Use History: Occasional Past Drug Use History: None Reported - Past Family History Mother Family Medical History: Cancer Additional Family Medical History / Comment(s): lung cancer Father Family Medical History: Diabetes Mellitus Additional Family Medical History / Comment(s): "my dad from a blood clot that traveled from his leg to his lung and also caused a heart attack." Brother(s) Family Medical History: Diabetes Mellitus Sister(s) Additional Family Medical History / Comment(s): "her heart races too fast" General Exam - General Exam Comments Initial Comments: General: The patient is awake and alert, in no distress, and does not appear acutely ill. Morbidly obese Eye: +3 mm pupils are equal, round and reactive to light, extra-ocular movements are intact. No nystagmus. There is normal conjunctiva bilaterally. No signs of icterus. Ears, nose, mouth and throat: There are moist mucous membranes and no oral lesions. Neck: The neck is supple, there is no tenderness or JVD. Cardiovascular: There is a regular rate and rhythm. No murmur, rub or gallop is appreciated. Respiratory: Lungs are clear to auscultation, respirations are non-labored, breath sounds are equal. No wheezes, stridor, rales, or rhonchi. Gastrointestinal: Soft, non-distended, tenderness to palpation of the RUQ of abdomen without masses or organomegaly noted. There is no rebound or guarding present. Musculoskeletal: Normal ROM, no tenderness. Strength 5/5. Sensation intact. Pulses equal bilaterally 2+. Neurological: A&O x 3. CN II-XII intact grossly, There are no obvious motor or sensory deficits. Coordination appears grossly intact. Speech is normal. Skin: Skin is warm and dry and no rashes or lesions are noted. Psychiatric: Cooperative, appropriate mood & affect, normal judgment. Limitations: no limitations Course Vital Signs 05/18/19 12:55 Temperature 98.3 F Pulse Rate 101 H Respiratory 18 Rate Blood Pressure 135/73 O2 Sat by Pulse 98 Oximetry Medical Decision Making - Medical Decision Making Well-appearing 59-year-old female presenting for nausea vomiting diarrhea. Patient states has been ongoing for the month. Patient doesn't chest pain shortness of breath. Mild appreciable right upper quadrant tenderness on abdominal examination otherwise is systolic. Acute abdomen. CT was obtained to rule out gallbladder disease as patient has a large habitus and WOULD HAVE LIMITED USE. NO EVIDENCE OF OBVIOUS GALLBLADDER DISEASE. NO ACUTE PROCESS IS SEEN OR SECONDARY SIGNS. AT THIS TIME I DO FEEL PATIENT IS STABLE FOR DISCHARGE LABORATORY STUDIES ARE STABLE AND LEUKOCYTOSIS. NO H ARRANGEMENTS. PATIENT WAS GIVEN A XANAX SHE STATES SHE IS VERY STRESSED OUT WITH HER LIFE AND FEELS THAT HER NAUSEA VOMITING DIARRHEA MAY BE RELATED. REMAINING REVIEW OF SYSTEM WAS NEGATIVE. PATIENT APPEARS WELL SHE IS AGREEABLE TO DISCHARGE AND IS CALLING RIGHT UPON REEVALUATION STATING SHE WANTS TO GO HOME. CASE IS DISCUSSED MAINTAINED BY DR. BUCHANAN WAS AGREEABLE CARE PLAN DISCHARGE AT THIS TIME. - Lab Data Result diagrams: 05/18/19 13:25 05/18/19 13:25 Lab Results 05/18/19 05/18/19 05/18/19 Range/Units 13:25 13:25 13:56 WBC 8.8 (3.8-10.6) k/uL RBC 3.83 (3.80-5.40) m/uL Hgb 10.9 L (11.4-16.0) gm/dL Hct 32.6 L (34.0-46.0) % MCV 85.2 (80.0-100.0) fL MCH 28.3 (25.0-35.0) pg MCHC 33.3 (31.0-37.0) g/dL RDW 15.4 (11.5-15.5) % Plt Count 306 (150-450) k/uL Neutrophils % 71 % Lymphocytes % 19 % Monocytes % 6 % Eosinophils % 1 % Basophils % 1 % Neutrophils # 6.3 (1.3-7.7) k/uL Lymphocytes # 1.6 (1.0-4.8) k/uL Monocytes # 0.5 (0-1.0) k/uL Eosinophils # 0.1 (0-0.7) k/uL Basophils # 0.0 (0-0.2) k/uL Sodium 140 (137-145) mmol/L Potassium 4.2 (3.5-5.1) mmol/L Chloride 102 (98-107) mmol/L Carbon Dioxide 31 H (22-30) mmol/L Anion Gap 7 mmol/L BUN 30 H (7-17) mg/dL Creatinine 0.93 (0.52-1.04) mg/dL Est GFR (CKD-EPI)AfAm 79 (>60 ml/min/1.73 sqM) Est GFR (CKD-EPI)NonAf 68 (>60 ml/min/1.73 sqM) Glucose 92 (74-99) mg/dL Calcium 9.8 (8.4-10.2) mg/dL Total Bilirubin 0.4 (0.2-1.3) mg/dL AST 31 (14-36) U/L ALT 30 (9-52) U/L Alkaline Phosphatase 98 (38-126) U/L Total Protein 6.7 (6.3-8.2) g/dL Albumin 4.0 (3.5-5.0) g/dL Amylase 47 (30-110) U/L Lipase 120 (23-300) U/L Urine Color Colorless Urine Appearance Clear (Clear) Urine pH 5.0 (5.0-8.0) Ur Specific [place] 1.005 (1.001-1.035) Urine Protein Negative (Negative) Urine Glucose (UA) Negative (Negative) Urine Ketones Negative (Negative) Urine Blood Negative (Negative) Urine Nitrite Negative (Negative) Urine Bilirubin Negative (Negative) Urine Urobilinogen <2.0 (<2.0) mg/dL Ur Leukocyte Esterase Moderate H (Negative) Urine RBC 1 (0-5) /hpf Urine WBC 16 H (0-5) /hpf Ur Squamous Epith Cells <1 (0-4) /hpf Amorphous Sediment Rare H (None) /hpf Urine Bacteria Rare H (None) /hpf Urine Mucus Rare H (None) /hpf Disposition Clinical Impression: Nausea & vomiting, Diarrhea Disposition: HOME SELF-CARE Condition: Good Instructions (If sedation given, give patient instructions): Acute Nausea and Vomiting (ED), Acute Diarrhea (ED) Additional Instructions: Please use medication as discussed. Please follow-up with family doctor in the next 2 days. Please return to emergency room if the symptoms increase or worsen or for any other concerns. Is patient prescribed a controlled substance at d/c from ED?: No Referrals: Beau Jade MD [Primary Care Provider] - 1-2 days Time of Disposition: 15:05
[2019-05-18 13:54] LABS: Calcium 9.8 mg/dL (8.4-10.2); Potassium 4.2 mmol/L (3.5-5.1); Total Bilirubin 0.4 mg/dL (0.2-1.3); Total Protein 6.7 g/dL (6.3-8.2)
[2019-05-18 14:05] LABS: Basophils % (A) 1 %; Eosinophils # (A) 0.1 k/uL (0-0.7); Eosinophils % (A) 1 %; HCT 32.6 % (34.0-46.0); HGB 10.9 gm/dL (11.4-16.0); Lymphocytes # (A) 1.6 k/uL (1.0-4.8); Lymphocytes % (A) 19 %; MCH 28.3 pg (25.0-35.0); MCHC 33.3 g/dL (31.0-37.0); MCV 85.2 fL (80.0-100.0); Mean Platelet Volume 8.1; Monocytes # (A) 0.5 k/uL (0-1.0); Monocytes % (A) 6 %; Neutrophils # (A) 6.3 k/uL (1.3-7.7); Neutrophils % (A) 71 %; Platelet Count 306 k/uL (150-450); RBC 3.83 m/uL (3.80-5.40); RDW 15.4 % (11.5-15.5); WBC 8.8 k/uL (3.8-10.6)
[2019-05-18 14:10] LABS: Amorphous Sediment,Urine Rare /hpf; Appearance,Urine Clear (Clear); Bacteria,Urine Rare /hpf; Bilirubin,Urine Negative (Negative); Blood,Urine Negative (Negative); Color,Urine Colorless; Glucose,Urine (UA) Negative (Negative); Ketones,Urine Negative (Negative); Leukocyte Esterase,Urine Moderate (Negative); Mucus,Urine Rare /hpf; Nitrite,Urine Negative (Negative); Protein,Urine Negative (Negative); RBC,Urine 1 /hpf (0-5); Specific Gravity,Urine 1.005 (1.001-1.035); Squamous Epithelial Cell,Urine <1 /hpf (0-4); Urobilinogen,Urine <2.0 mg/dL (<2.0); WBC,Urine 16 /hpf (0-5)
[2019-05-18] MEDS ORDERED: SODIUM CHLORIDE 0.9% 500 ML 500 ML IV ONE (14:11)
[2019-05-18] MEDS ORDERED: ALPRAZolam 1 MG TAB PO STA (14:12)
[2019-05-18] MEDS ORDERED: methylPREDNISolone SOD SUCCI 125 MG/2 ML VIAL IV STA (14:23)
[2019-05-18] MEDS ORDERED: FAMOTIDINE 20 MG/2 ML VIAL IV STA (14:23)
[2019-05-18] MEDS ORDERED: diphenhydrAMINE 50 MG/ML 1 ML VIAL IVP STA (14:23)
--- NOTE | 2019-05-18 14:59 | CT ---
EXAMINATION TYPE: CT abdomen pelvis w con DATE OF EXAM: 05/18/2019 HISTORY: Nausea and vomiting for one week. Right upper quadrant pain. Automated Exposure Control for Dose Reduction was Utilized. CONTRAST: CT scan of the abdomen and pelvis is performed with IV Contrast, patient injected with 100 mL of Isov ue 300. COMPARISON: CT abdomen and pelvis October 14, 2018. FINDINGS: Exam noted suboptimal secondary to patient's large body habitus. LUNG BASES: No significant abnormality is appreciated. LIVER/GB: No significant abnormality is appreciated. PANCREAS: Moderate fat replaced atrophy of pancreas. SPLEEN: No significant abnormality is seen. ADRENALS: No significant abnormality is seen. KIDNEYS: Symmetric cortical medullary uptake and excretion without hydronephrosis seen bilaterally. BOWEL: Evaluation of all suboptimal secondary to lack of enteric contrast. Surgical changes from mag malena bypass procedure epigastric region are redemonstrated. No suspicious small or large bowel dilatat ion. No inflammatory change of base of cecum identified. UTERUS/ADNEXA: Anteverted and normal size uterus. LYMPH NODES: No greater than 1cm abdominal or pelvic lymph nodes are appreciated. OSSEOUS STRUCTURES: Moderate to severe multilevel disc space narrowing and vacuum disc phenomenon thr oughout the lumbar spine. [id number] multilevel spurring of the thoracic spine. Surgical salas ges left proximal femur is partially imaged. OTHER: No significant additional abnormality is seen. IMPRESSION: No bowel obstruction. No significant new or acute finding is seen to account for patient' s clinical symptoms.
[2019-05-18 15:47] VITALS: BP 130/70; PULSE 95; RESP 16
== END 2019-05-18 15:45 | disposition home or self-care (01) ==
LOC: EC 12:40
DX: R11.2 Nausea with vomiting, unspecified (principal); R19.7 Diarrhea, unspecified; R10.11 Right upper quadrant pain; R68.83 Chills (without fever); D72.829 Elevated white blood cell count, unspecified; J44.9 Chronic obstructive pulmonary disease, unspecified; I11.0 Hypertensive heart disease with heart failure; I50.9 Heart failure, unspecified; E11.9 Type 2 diabetes mellitus without complications; E78.5 Hyperlipidemia, unspecified; E03.9 Hypothyroidism, unspecified; F41.0 Panic disorder [episodic paroxysmal anxiety]; F31.9 Bipolar disorder, unspecified; Z79.02 Long term (current) use of antithrombotics/antiplatelets; Z79.890 Hormone replacement therapy; Z79.84 Long term (current) use of oral hypoglycemic drugs; Z79.899 Other long term (current) drug therapy; Z88.0 Allergy status to penicillin; Z91.048 Other nonmedicinal substance allergy status; Z88.8 Allergy status to other drugs, medicaments and biological substances; Z88.2 Allergy status to sulfonamides; Z88.7 Allergy status to serum and vaccine; Z98.84 Bariatric surgery status; Z95.5 Presence of coronary angioplasty implant and graft; Z96.651 Presence of right artificial knee joint; Z86.711 Personal history of pulmonary embolism
CPT/HCPCS: 36415; 80053; 82150; 83690; 85025; 81001; 74177; 99284; 96374; 96375 ×2; 96361; J1200; J2930; Q9967

== ENCOUNTER 2019-05-24 13:59 | Emergency (ER) | payer MEDICARE, OTHER ==
[2019-05-24 14:14] VITALS: BP 180/80; PULSE 97; RESP 20; TEMP 98
--- NOTE | 2019-05-24 15:18 | ED ---
Psych HPI - General Chief Complaint: Psychiatric Symptoms Stated Complaint: Depression Time Seen by Provider: 05/24/19 14:07 Source: EMS, RN notes reviewed, old records reviewed Mode of arrival: EMS - History of Present Illness Initial Comments: This is a 59-year-old female the ER for evaluation patient does say for evaluation regarding mild depression but she states that this is her normal depression and she gets it is cyclical she's had one of her lower points but not homicidal not suicidal. No drugs or alcohol abuse. Patient also complaining of shortness of breath but she states this is chronic. Patient is brought in the ER by EMS for evaluation of shortness of breath EMS was called patient by bystander the patient was of cold with ambulation and she went to get breakfast this morning. Patient states he had no other significant complaints. MD Complaint: feels depressed (Cyclical bipolar disease) -: days(s) Associated Psychiatric Symptoms: depression History of same: Yes Quality: constant Improves With: none Worsens With: none Associated Symptoms: denies other symptoms Treatments Prior to Arrival: none - Related Data Home Medications Medication Instructions Recorded Confirmed Atorvastatin [Lipitor] 10 mg PO HS 06/07/17 05/24/19 Carvedilol [Coreg] 25 mg PO BID 06/07/17 05/24/19 Multivitamins, Thera [Multivitamin 1 tab PO DAILY 06/07/17 05/24/19 (formulary)] Omeprazole 20 mg PO DAILY 06/07/17 05/24/19 Levothyroxine Sodium [Synthroid] 137 mcg PO DAILY 10/20/17 05/24/19 Montelukast [Singulair] 10 mg PO DAILY 06/28/18 05/24/19 DULoxetine HCL [Cymbalta] 60 mg PO BID 08/15/18 05/24/19 Gabapentin [Neurontin] 300 mg PO DAILY 08/15/18 05/24/19 Ferrous Sulfate [Iron (65 MG 325 mg PO BID 11/05/18 05/24/19 Elemental)] Lactobacillus Acidophilus 1 tab PO BID 11/05/18 05/24/19 [Acidophilus] Miconazole 2% Cream [Monistat-Derm] 1 applic TOPICAL TID 11/05/18 05/24/19 rOPINIRole HCL 4 mg PO BID 11/18/18 05/24/19 Torsemide [Demadex] 50 mg PO SUTUTHSA 12/15/18 05/24/19 Torsemide [Demadex] 100 mg PO MOWEFR 12/15/18 05/24/19 Cyanocobalamin (Vitamin B-12) 1,000 mcg PO DAILY 01/31/19 05/24/19 [Vitamin B-12] Magnesium Oxide 400 mg PO DAILY 02/26/19 05/24/19 Potassium Chloride [Klor-Con 20] 20 meq PO DAILY 02/26/19 05/24/19 Celecoxib [CeleBREX] 400 mg PO DAILY 03/14/19 05/24/19 Diclofenac Sodium [Voltaren Gel] 1 applic TOPICAL BID PRN 04/22/19 05/24/19 Loperamide [Imodium] 2 mg PO QID PRN 04/22/19 05/24/19 Mometasone Cream 0.1% 1 applic TOPICAL DAILY 04/22/19 05/24/19 Ondansetron HCl [Zofran] 4 mg PO BID PRN 04/22/19 05/24/19 Cholecalciferol [Vitamin D3 (25 5,000 unit PO DAILY 05/18/19 05/24/19 Mcg = 1000 Iu)] Glimepiride [Amaryl] 2 mg PO AC-BRKFST 05/18/19 05/24/19 OLANZapine [ZyPREXA] 10 mg PO HS 05/18/19 05/24/19 metFORMIN HCL [Glucophage] 500 mg PO BID 05/18/19 05/24/19 ALPRAZolam [Xanax] 0.5 mg PO BID PRN 05/24/19 05/24/19 Vit C/E/Zn/Coppr/Lutein/Zeaxan 1 cap PO DAILY 05/24/19 05/24/19 [Preservision Areds 2 Softgel] Previous Rx's Medication Instructions Recorded Rivaroxaban [Xarelto] 20 mg PO DAILY 90 Days #90 tab 11/18/17 Allergies Allergy/AdvReac Type Severity Reaction Status Date / Time buspirone [From BuSpar] Allergy Unknown Verified 05/24/19 14:42 haloperidol [From Haldol] Allergy Swelling Verified 05/24/19 14:42 iodine Allergy Swelling Verified 05/24/19 14:42 Penicillins Allergy Swelling Verified 05/24/19 14:42 prochlorperazine Allergy Rash/Hives Verified 05/24/19 14:42 Sulfa (Sulfonamide Allergy Rash/Hives Verified 05/24/19 14:42 Antibiotics) Tetanus Vaccines and Toxoid Allergy Rash/Hives Verified 05/24/19 14:42 [Tetanus Vaccines & Toxoid] trifluoperazine HCl Allergy Unknown Verified 05/24/19 14:42 [From Stelazine] hydroxyzine [From Vistaril] AdvReac Rash/Hives Verified 05/24/19 14:42 Review of Systems ROS Statement: Those systems with pertinent positive or pertinent negative responses have been documented in the HPI. ROS Other: All systems not noted in ROS Statement are negative. Past Medical History Past Medical History: Asthma, Heart Failure, COPD, Diabetes Mellitus, GERD/Reflux, Hyperlipidemia, Hypertension, Musculoskeletal Disorder, Osteoarthritis (OA), Pneumonia, Pulmonary Embolus (PE), Thyroid Disorder Additional Past Medical History / Comment(s): chronic low back pain, herniated discs, RLS, leg edema, anemia, gout bilateral feet, hypothyroid, UTIs, hx cellulitis, cataracts, macular degeneration History of Any Multi-Drug Resistant Organisms: None Reported Past Surgical History: Bariatric Surgery, Heart Catheterization, Hernia Repair, Orthopedic Surgery Additional Past Surgical History / Comment(s): Total Right knee replacement, 3 abdominal hernia repairs, left hip repair d/t fracture, gastric bypass/revision, colonoscopy. Past Anesthesia/Blood Transfusion Reactions: No Reported Reaction Past Psychological History: Anxiety, Bipolar, Depression, Panic Disorder, PTSD Smoking Status: Never smoker Past Alcohol Use History: Occasional Past Drug Use History: None Reported - Past Family History Mother Family Medical History: Cancer Additional Family Medical History / Comment(s): lung cancer Father Family Medical History: Diabetes Mellitus Additional Family Medical History / Comment(s): "my dad from a blood clot that traveled from his leg to his lung and also caused a heart attack." Brother(s) Family Medical History: Diabetes Mellitus Sister(s) Additional Family Medical History / Comment(s): "her heart races too fast" General Exam Limitations: no limitations General appearance: alert, in no apparent distress Head exam: Present: atraumatic, normocephalic, normal inspection Eye exam: Present: normal appearance, PERRL, EOMI. Absent: scleral icterus, conjunctival injection, periorbital swelling ENT exam: Present: normal exam, mucous membranes moist Neck exam: Present: normal inspection. Absent: tenderness, meningismus, lymphadenopathy Respiratory exam: Present: normal lung sounds bilaterally. Absent: respiratory distress, wheezes, rales, rhonchi, stridor Cardiovascular Exam: Present: regular rate, normal rhythm, normal heart sounds. Absent: systolic murmur, diastolic murmur, rubs, gallop, clicks GI/Abdominal exam: Present: soft, normal bowel sounds. Absent: distended, tenderness, guarding, rebound, rigid Extremities exam: Present: normal inspection, full ROM, normal capillary refill. Absent: tenderness, pedal edema, joint swelling, calf tenderness Back exam: Present: normal inspection Neurological exam: Present: alert, oriented X3, CN II-XII intact Psychiatric exam: Present: normal affect, normal mood Skin exam: Present: warm, dry, intact, normal color. Absent: rash Course Vital Signs 05/24/19 14:09 Temperature 98.0 F Pulse Rate 97 Respiratory 20 Rate Blood Pressure 180/80 O2 Sat by Pulse 95 Oximetry - Reevaluation(s) Reevaluation #1: 05/24/19 15:17 Medical record is reviewed Reevaluation #2: 05/24/19 15:17 Patient is able to actively here in the ER with oxygen maintaining on room air 98% Medical Decision Making - Medical Decision Making 51 female the ER for evaluation. Patient resents today for evaluation regards to shortness [place] some depression. Patient states otherwise she feels fine like to be discharged home Disposition Clinical Impression: SOB (shortness of breath), Depression Disposition: HOME SELF-CARE Condition: Good Instructions (If sedation given, give patient instructions): Depression (ED) Is patient prescribed a controlled substance at d/c from ED?: No Referrals: Beau Jade MD [Primary Care Provider] - 1-2 days
== END 2019-05-24 15:21 | disposition home or self-care (01) ==
LOC: EC 13:59
DX: F31.9 Bipolar disorder, unspecified (principal); R06.02 Shortness of breath; F41.9 Anxiety disorder, unspecified; J44.9 Chronic obstructive pulmonary disease, unspecified; E11.9 Type 2 diabetes mellitus without complications; I11.0 Hypertensive heart disease with heart failure; I50.9 Heart failure, unspecified; K21.9 Gastro-esophageal reflux disease without esophagitis; E78.5 Hyperlipidemia, unspecified; M19.90 Unspecified osteoarthritis, unspecified site; E03.9 Hypothyroidism, unspecified; G89.29 Other chronic pain; M54.5 Low back pain; G25.81 Restless legs syndrome; M10.9 Gout, unspecified; Z87.01 Personal history of pneumonia (recurrent); Z86.711 Personal history of pulmonary embolism; Z98.84 Bariatric surgery status; Z96.651 Presence of right artificial knee joint; Z98.890 Other specified postprocedural states; Z79.1 Long term (current) use of non-steroidal anti-inflammatories (NSAID); Z79.84 Long term (current) use of oral hypoglycemic drugs; Z79.890 Hormone replacement therapy; Z79.899 Other long term (current) drug therapy; Z88.0 Allergy status to penicillin; Z88.2 Allergy status to sulfonamides; Z88.7 Allergy status to serum and vaccine; Z88.8 Allergy status to other drugs, medicaments and biological substances; Z91.048 Other nonmedicinal substance allergy status
CPT/HCPCS: 99284

== ENCOUNTER 2019-05-27 11:54 | Emergency (ER) | payer MEDICARE, OTHER ==
[2019-05-27 12:23] VITALS: BP 168/68; PULSE 111; RESP 26; TEMP 97
[2019-05-27] MEDS ORDERED: NYSTATIN 100,000 UNIT/GM POWD 15 GM TOPICAL STA (13:41)
--- NOTE | 2019-05-27 13:44 | ED ---
Anxiety HPI - General Chief Complaint: Anxiety Stated Complaint: mental health Time Seen by Provider: 05/27/19 12:26 Source: patient, RN notes reviewed, old records reviewed Mode of arrival: ambulatory Limitations: no limitations - History of Present Illness Initial Comments: This is a 51-year-old female the ER for evaluation. Patient coming in for fee lings of anxiety. States that she has waxing and waning mental status, inability to control her emotions, sadness and depression. At this point now here in the ER patient states she does feel improved. Denies drugs or alcohol. Complaining of some right lower extremity pain to the back of her leg. Otherwise patient states she feels better MD Complaint: anxiety, heart racing -: year(s) Place: home Previous History of Same: Yes Severity: mild Quality: intermittent, improving Provoking factors: none known Improves With: nothing Worsens With: nothing - Related Data Home Medications: Home Medications Medication Instructions Recorded Confirmed Atorvastatin [Lipitor] 10 mg PO HS 06/07/17 05/27/19 Carvedilol [Coreg] 25 mg PO BID 06/07/17 05/27/19 Multivitamins, Thera [Multivitamin 1 tab PO DAILY 06/07/17 05/27/19 (formulary)] Omeprazole 20 mg PO DAILY 06/07/17 05/27/19 Levothyroxine Sodium [Synthroid] 137 mcg PO DAILY 10/20/17 05/27/19 Montelukast [Singulair] 10 mg PO DAILY 06/28/18 05/27/19 DULoxetine HCL [Cymbalta] 60 mg PO BID 08/15/18 05/27/19 Gabapentin [Neurontin] 300 mg PO DAILY 08/15/18 05/27/19 Ferrous Sulfate [Iron (65 MG 325 mg PO BID 11/05/18 05/27/19 Elemental)] Lactobacillus Acidophilus 1 tab PO BID 11/05/18 05/27/19 [Acidophilus] Miconazole 2% Cream [Monistat-Derm] 1 applic TOPICAL TID 11/05/18 05/27/19 rOPINIRole HCL 4 mg PO BID 11/18/18 05/27/19 Torsemide [Demadex] 50 mg PO SUTUTHSA 12/15/18 05/27/19 Torsemide [Demadex] 100 mg PO MOWEFR 12/15/18 05/27/19 Cyanocobalamin (Vitamin B-12) 1,000 mcg PO DAILY 01/31/19 05/27/19 [Vitamin B-12] Magnesium Oxide 400 mg PO DAILY 02/26/19 05/27/19 Potassium Chloride [Klor-Con 20] 20 meq PO DAILY 02/26/19 05/27/19 Celecoxib [CeleBREX] 400 mg PO DAILY 03/14/19 05/27/19 Diclofenac Sodium [Voltaren Gel] 1 applic TOPICAL BID PRN 04/22/19 05/27/19 Loperamide [Imodium] 2 mg PO QID PRN 04/22/19 05/27/19 Mometasone Cream 0.1% 1 applic TOPICAL DAILY 04/22/19 05/27/19 Ondansetron HCl [Zofran] 4 mg PO BID PRN 04/22/19 05/27/19 Cholecalciferol [Vitamin D3 (25 5,000 unit PO DAILY 05/18/19 05/27/19 Mcg = 1000 Iu)] Glimepiride [Amaryl] 2 mg PO AC-BRKFST 05/18/19 05/27/19 OLANZapine [ZyPREXA] 10 mg PO HS 05/18/19 05/27/19 metFORMIN HCL [Glucophage] 500 mg PO BID 05/18/19 05/27/19 ALPRAZolam [Xanax] 0.5 mg PO BID PRN 05/24/19 05/27/19 Vit C/E/Zn/Coppr/Lutein/Zeaxan 1 cap PO DAILY 05/24/19 05/27/19 [Preservision Areds 2 Softgel] Previous Rx's Medication Instructions Recorded Rivaroxaban [Xarelto] 20 mg PO DAILY 90 Days #90 tab 11/18/17 Allergies/Adverse Reactions: Allergies Allergy/AdvReac Type Severity Reaction Status Date / Time buspirone [From BuSpar] Allergy Unknown Verified 05/27/19 12:32 haloperidol [From Haldol] Allergy Swelling Verified 05/27/19 12:32 iodine Allergy Swelling Verified 05/27/19 12:32 Penicillins Allergy Swelling Verified 05/27/19 12:32 prochlorperazine Allergy Rash/Hives Verified 05/27/19 12:32 Sulfa (Sulfonamide Allergy Rash/Hives Verified 05/27/19 12:32 Antibiotics) Tetanus Vaccines and Toxoid Allergy Rash/Hives Verified 05/27/19 12:32 [Tetanus Vaccines & Toxoid] trifluoperazine HCl Allergy Unknown Verified 05/27/19 12:32 [From Stelazine] hydroxyzine [From Vistaril] AdvReac Rash/Hives Verified 05/27/19 12:32 Review of Systems ROS Statement: Those systems with pertinent positive or pertinent negative responses have been documented in the HPI. ROS Other: All systems not noted in ROS Statement are negative. Past Medical History Past Medical History: Asthma, Heart Failure, COPD, Diabetes Mellitus, GERD/Reflux, Hyperlipidemia, Hypertension, Musculoskeletal Disorder, Osteoarthritis (OA), Pneumonia, Pulmonary Embolus (PE), Thyroid Disorder Additional Past Medical History / Comment(s): chronic low back pain, herniated discs, RLS, leg edema, anemia, gout bilateral feet, hypothyroid, UTIs, hx cellulitis, cataracts, macular degeneration History of Any Multi-Drug Resistant Organisms: None Reported Past Surgical History: Bariatric Surgery, Heart Catheterization, Hernia Repair, Orthopedic Surgery Additional Past Surgical History / Comment(s): Total Right knee replacement, 3 abdominal hernia repairs, left hip repair d/t fracture, gastric bypass/revision, colonoscopy. Past Anesthesia/Blood Transfusion Reactions: No Reported Reaction Past Psychological History: Anxiety, Bipolar, Depression, Panic Disorder, PTSD Smoking Status: Never smoker Past Alcohol Use History: Occasional Past Drug Use History: None Reported - Past Family History Mother Family Medical History: Cancer Additional Family Medical History / Comment(s): lung cancer Father Family Medical History: Diabetes Mellitus Additional Family Medical History / Comment(s): "my dad from a blood clot that traveled from his leg to his lung and also caused a heart attack." Brother(s) Family Medical History: Diabetes Mellitus Sister(s) Additional Family Medical History / Comment(s): "her heart races too fast" General Exam Limitations: no limitations General appearance: alert, in no apparent distress, anxious Head exam: Present: atraumatic, normocephalic, normal inspection Eye exam: Present: normal appearance, PERRL, EOMI. Absent: scleral icterus, conjunctival injection, periorbital swelling ENT exam: Present: normal exam, mucous membranes moist Neck exam: Present: normal inspection. Absent: tenderness, meningismus, lymphadenopathy Respiratory exam: Present: normal lung sounds bilaterally. Absent: respiratory distress, wheezes, rales, rhonchi, stridor Cardiovascular Exam: Present: normal rhythm, tachycardia, normal heart sounds. Absent: systolic murmur, diastolic murmur, rubs, gallop, clicks GI/Abdominal exam: Present: soft, normal bowel sounds. Absent: distended, tenderness, guarding, rebound, rigid Extremities exam: Present: normal inspection, full ROM, normal capillary refill. Absent: tenderness, pedal edema, joint swelling, calf tenderness Back exam: Present: normal inspection Neurological exam: Present: alert, oriented X3, CN II-XII intact Psychiatric exam: Present: normal affect, normal mood Skin exam: Present: warm, dry, intact, normal color, other (Right lower extremity has a skin fold area with intertrigo rash, East). Absent: rash Course Vital Signs 05/27/19 12:20 Temperature 97 F L Pulse Rate 111 H Respiratory 26 H Rate Blood Pressure 168/68 O2 Sat by Pulse 99 Oximetry - Reevaluation(s) Reevaluation #1: 05/27/19 13:42 Medical records reviewed Reevaluation #2: 05/27/19 13:42 Speaking with patient multiple times decision is made the patient will like to be discharged home, patient states she's not homicidal or suicidal she does have history of bipolar does continue to go up and down with her mental status and thought process happiness. Patient States that she would like to go home currently Medical Decision Making - Medical Decision Making 51 female the ER for evaluation patient resents today for evaluation regards to multiple complaints but mainly anxiety related. Patient states that this point he feels good to be discharged home she was fed here in the ER without difficulty patient is treated for intertrigo over right back of leg area and can be discharged home Disposition Clinical Impression: Acute anxiety, Intertrigo Narrative: Intertrigo Right Leg Disposition: HOME SELF-CARE Instructions (If sedation given, give patient instructions): Generalized Anxiety Disorder (ED), Skin Yeast Infection (ED) Is patient prescribed a controlled substance at d/c from ED?: No Referrals: Beau Jade MD [Primary Care Provider] - 1-2 days
== END 2019-05-27 14:15 | disposition home or self-care (01) ==
LOC: EC 11:54
DX: F41.9 Anxiety disorder, unspecified (principal); L30.4 Erythema intertrigo; F31.9 Bipolar disorder, unspecified; F41.0 Panic disorder [episodic paroxysmal anxiety]; F43.10 Post-traumatic stress disorder, unspecified; I11.0 Hypertensive heart disease with heart failure; I50.9 Heart failure, unspecified; E11.9 Type 2 diabetes mellitus without complications; K21.9 Gastro-esophageal reflux disease without esophagitis; E78.5 Hyperlipidemia, unspecified; M19.90 Unspecified osteoarthritis, unspecified site; E03.9 Hypothyroidism, unspecified; G25.81 Restless legs syndrome; G89.29 Other chronic pain; H35.30 Unspecified macular degeneration; M10.9 Gout, unspecified; Z79.84 Long term (current) use of oral hypoglycemic drugs; Z79.899 Other long term (current) drug therapy; Z79.890 Hormone replacement therapy; Z88.0 Allergy status to penicillin; Z88.8 Allergy status to other drugs, medicaments and biological substances; Z88.2 Allergy status to sulfonamides; Z88.7 Allergy status to serum and vaccine; Z86.711 Personal history of pulmonary embolism; Z96.651 Presence of right artificial knee joint; Z98.84 Bariatric surgery status; Z95.5 Presence of coronary angioplasty implant and graft
CPT/HCPCS: 82075; 99283

== ENCOUNTER 2019-06-10 22:13 | Emergency (ER) | payer MEDICARE, OTHER ==
[2019-06-10 22:18] VITALS: PULSE 72; TEMP 98.2
--- NOTE | 2019-06-10 23:05 | ED ---
General Adult HPI - General Chief complaint: Extremity Problem,Nontraumatic Stated complaint: Right shoulder pain Time Seen by Provider: 06/10/19 22:24 Source: patient, RN notes reviewed, old records reviewed Mode of arrival: ambulatory Limitations: no limitations - History of Present Illness Initial comments: Patient is a pleasant 59-year-old female presenting to the emergency department with chief complaint of right shoulder discomfort. Onset of symptoms was around 4:30. Patient took some Tylenol with not much relief of symptoms. Patient did have a fall 2 days ago however does not recall any injury to this area. Patient states discomfort is persistent. Discomfort is right shoulder however does radiate towards the chest and towards the back and down the arm. No weakness. No history of chronic right shoulder pain. Discomfort is greatly increased with movement. - Related Data Home Medications Medication Instructions Recorded Confirmed Atorvastatin [Lipitor] 10 mg PO HS 06/07/17 06/10/19 Carvedilol [Coreg] 25 mg PO BID 06/07/17 06/10/19 Multivitamins, Thera [Multivitamin 1 tab PO DAILY 06/07/17 06/10/19 (formulary)] Omeprazole 20 mg PO DAILY 06/07/17 06/10/19 Levothyroxine Sodium [Synthroid] 137 mcg PO DAILY 10/20/17 06/10/19 Montelukast [Singulair] 10 mg PO DAILY 06/28/18 06/10/19 DULoxetine HCL [Cymbalta] 60 mg PO BID 08/15/18 06/10/19 Gabapentin [Neurontin] 300 mg PO DAILY 08/15/18 06/10/19 Ferrous Sulfate [Iron (65 MG 325 mg PO BID 11/05/18 06/10/19 Elemental)] Lactobacillus Acidophilus 1 tab PO BID 11/05/18 06/10/19 [Acidophilus] Miconazole 2% Cream [Monistat-Derm] 1 applic TOPICAL TID 11/05/18 06/10/19 rOPINIRole HCL [Requip] 4 mg PO BID 11/18/18 06/10/19 Torsemide [Demadex] 50 mg PO SUTUTHSA 12/15/18 06/10/19 Torsemide [Demadex] 100 mg PO MOWEFR 12/15/18 06/10/19 Cyanocobalamin (Vitamin B-12) 1,000 mcg PO DAILY 01/31/19 06/10/19 [Vitamin B-12] Magnesium Oxide 400 mg PO DAILY 02/26/19 06/10/19 Potassium Chloride [Klor-Con 20] 20 meq PO DAILY 02/26/19 06/10/19 Celecoxib [CeleBREX] 400 mg PO DAILY 03/14/19 06/10/19 Diclofenac Sodium [Voltaren Gel] 1 applic TOPICAL BID PRN 04/22/19 06/10/19 Loperamide [Imodium] 2 mg PO QID PRN 04/22/19 06/10/19 Mometasone Cream 0.1% 1 applic TOPICAL DAILY 04/22/19 06/10/19 Ondansetron HCl [Zofran] 4 mg PO BID PRN 04/22/19 06/10/19 Cholecalciferol [Vitamin D3 (25 5,000 unit PO DAILY 05/18/19 06/10/19 Mcg = 1000 Iu)] Glimepiride [Amaryl] 2 mg PO AC-BRKFST 05/18/19 06/10/19 metFORMIN HCL [Glucophage] 500 mg PO BID 05/18/19 06/10/19 Vit C/E/Zn/Coppr/Lutein/Zeaxan 1 cap PO DAILY 05/24/19 06/10/19 [Preservision Areds 2 Softgel] Cariprazine HCl [Vraylar] 3 mg PO HS 06/10/19 06/10/19 hydrOXYzine PAMOATE [Vistaril] 25 mg PO BID PRN 06/10/19 06/10/19 Previous Rx's Medication Instructions Recorded Rivaroxaban [Xarelto] 20 mg PO DAILY 90 Days #90 tab 11/18/17 Allergies Allergy/AdvReac Type Severity Reaction Status Date / Time buspirone [From BuSpar] Allergy Unknown Verified 06/10/19 22:14 haloperidol [From Haldol] Allergy Swelling Verified 06/10/19 22:14 iodine Allergy Swelling Verified 06/10/19 22:14 Penicillins Allergy Swelling Verified 06/10/19 22:14 prochlorperazine Allergy Rash/Hives Verified 06/10/19 22:14 Sulfa (Sulfonamide Allergy Rash/Hives Verified 06/10/19 22:14 Antibiotics) Tetanus Vaccines and Toxoid Allergy Rash/Hives Verified 06/10/19 22:14 [Tetanus Vaccines & Toxoid] trifluoperazine HCl Allergy Unknown Verified 06/10/19 22:14 [From Stelazine] Review of Systems ROS Statement: Those systems with pertinent positive or pertinent negative responses have been documented in the HPI. ROS Other: All systems not noted in ROS Statement are negative. Constitutional: Denies: fever Eyes: Denies: eye pain ENT: Denies: ear pain Respiratory: Denies: dyspnea Cardiovascular: Reports: as per HPI Endocrine: Denies: fatigue Gastrointestinal: Denies: abdominal pain Genitourinary: Denies: dysuria Musculoskeletal: Reports: as per HPI. Denies: joint swelling Skin: Denies: rash Neurological: Denies: weakness Past Medical History Past Medical History: Asthma, Heart Failure, COPD, Diabetes Mellitus, GERD/Reflux, Hyperlipidemia, Hypertension, Musculoskeletal Disorder, Osteoarthritis (OA), Pneumonia, Pulmonary Embolus (PE), Thyroid Disorder Additional Past Medical History / Comment(s): chronic low back pain, herniated discs, RLS, leg edema, anemia, gout bilateral feet, hypothyroid, UTIs, hx cellulitis, cataracts, macular degeneration History of Any Multi-Drug Resistant Organisms: None Reported Past Surgical History: Bariatric Surgery, Heart Catheterization, Hernia Repair, Orthopedic Surgery Additional Past Surgical History / Comment(s): Total Right knee replacement, 3 abdominal hernia repairs, left hip repair d/t fracture, gastric bypass/revision, colonoscopy. Past Anesthesia/Blood Transfusion Reactions: No Reported Reaction Past Psychological History: Anxiety, Bipolar, Depression, Panic Disorder, PTSD Smoking Status: Never smoker Past Alcohol Use History: Occasional Past Drug Use History: None Reported - Past Family History Mother Family Medical History: Cancer Additional Family Medical History / Comment(s): lung cancer Father Family Medical History: Diabetes Mellitus Additional Family Medical History / Comment(s): "my dad from a blood clot that traveled from his leg to his lung and also caused a heart attack." Brother(s) Family Medical History: Diabetes Mellitus Sister(s) Additional Family Medical History / Comment(s): "her heart races too fast" General Exam Limitations: no limitations General appearance: alert, in no apparent distress Head exam: Present: normocephalic Eye exam: Present: normal appearance Neck exam: Present: normal inspection. Absent: tenderness Respiratory exam: Present: normal lung sounds bilaterally Cardiovascular Exam: Present: regular rate, normal rhythm Expanded Peripheral pulses: 2+: Radial (R), Radial (L), Posterior Tibialis (R), Posterior Tibialis (L), Dorsalis Pedis (R), Dorsalis Pedis (L) GI/Abdominal exam: Present: soft. Absent: tenderness Extremities exam: Present: full ROM (Pain with active and passive range of motion), tenderness (Tenderness right shoulder as well as the associated diffuse region extending to the upper back on the right, upper chest on the right, lower deltoid region. Distally the extremity is neurologically intact.) Back exam: Present: tenderness (Mild tenderness right upper back near the shoulder) Neurological exam: Present: alert. Absent: motor sensory deficit Psychiatric exam: Present: normal affect, normal mood Skin exam: Present: normal color Course Vital Signs 06/10/19 22:14 Temperature 98.2 F Pulse Rate 72 Respiratory 16 Rate Blood Pressure 116/68 O2 Sat by Pulse 97 Oximetry EKG Findings - EKG Comments: EKG Findings:: Normal sinus rhythm 63. ME 138. QRS 92. QT 428. QTC 437. Normal axis. Normal QRS. No acute ST change. Medical Decision Making - Medical Decision Making He should reevaluated and improved. Patient confirms she is still taking her Xarelto. Patient updated on results and need for follow-up. Patient states she will see her doctor on Saturday. - Lab Data Result diagrams: 06/10/19 23:48 06/10/19 23:48 Lab Results 06/10/19 06/10/19 06/10/19 Range/Units 23:48 23:48 23:48 WBC 5.9 (3.8-10.6) k/uL RBC 3.83 (3.80-5.40) m/uL Hgb 11.1 L (11.4-16.0) gm/dL Hct 33.8 L (34.0-46.0) % MCV 88.3 (80.0-100.0) fL MCH 28.9 (25.0-35.0) pg MCHC 32.7 (31.0-37.0) g/dL RDW 13.7 (11.5-15.5) % Plt Count 307 (150-450) k/uL Neutrophils % (Manual) 58 % Lymphocytes % (Manual) 27 % Monocytes % (Manual) 12 % Eosinophils % (Manual) 3 % Neutrophils # (Manual) 3.42 (1.3-7.7) k/uL Lymphocytes # (Manual) 1.59 (1.0-4.8) k/uL Monocytes # (Manual) 0.71 (0-1.0) k/uL Eosinophils # (Manual) 0.18 (0-0.7) k/uL Nucleated RBCs 0 (0-0) /100 WBC Manual Slide Review Performed PT 11.0 (9.0-12.0) sec INR 1.0 (<1.2) APTT 31.4 H (22.0-30.0) sec Sodium 139 (137-145) mmol/L Potassium 4.2 (3.5-5.1) mmol/L Chloride 98 (98-107) mmol/L Carbon Dioxide 32 H (22-30) mmol/L Anion Gap 9 mmol/L BUN 31 H (7-17) mg/dL Creatinine 0.83 (0.52-1.04) mg/dL Est GFR (CKD-EPI)AfAm >90 (>60 ml/min/1.73 sqM) Est GFR (CKD-EPI)NonAf 78 (>60 ml/min/1.73 sqM) Glucose 96 (74-99) mg/dL Calcium 9.1 (8.4-10.2) mg/dL Magnesium 2.0 (1.6-2.3) mg/dL Total Bilirubin 0.4 (0.2-1.3) mg/dL AST 31 (14-36) U/L ALT 24 (9-52) U/L Alkaline Phosphatase 85 (38-126) U/L Troponin I (0.000-0.034) ng/mL Total Protein 6.7 (6.3-8.2) g/dL Albumin 4.0 (3.5-5.0) g/dL 06/10/19 Range/Units 23:48 WBC (3.8-10.6) k/uL RBC (3.80-5.40) m/uL Hgb (11.4-16.0) gm/dL Hct (34.0-46.0) % MCV (80.0-100.0) fL MCH (25.0-35.0) pg MCHC (31.0-37.0) g/dL RDW (11.5-15.5) % Plt Count (150-450) k/uL Neutrophils % (Manual) % Lymphocytes % (Manual) % Monocytes % (Manual) % Eosinophils % (Manual) % Neutrophils # (Manual) (1.3-7.7) k/uL Lymphocytes # (Manual) (1.0-4.8) k/uL Monocytes # (Manual) (0-1.0) k/uL Eosinophils # (Manual) (0-0.7) k/uL Nucleated RBCs (0-0) /100 WBC Manual Slide Review PT (9.0-12.0) sec INR (<1.2) APTT (22.0-30.0) sec Sodium (137-145) mmol/L Potassium (3.5-5.1) mmol/L Chloride (98-107) mmol/L Carbon Dioxide (22-30) mmol/L Anion Gap mmol/L BUN (7-17) mg/dL Creatinine (0.52-1.04) mg/dL Est GFR (CKD-EPI)AfAm (>60 ml/min/1.73 sqM) Est GFR (CKD-EPI)NonAf (>60 ml/min/1.73 sqM) Glucose (74-99) mg/dL Calcium (8.4-10.2) mg/dL Magnesium (1.6-2.3) mg/dL Total Bilirubin (0.2-1.3) mg/dL AST (14-36) U/L ALT (9-52) U/L Alkaline Phosphatase (38-126) U/L Troponin I <0.012 (0.000-0.034) ng/mL Total Protein (6.3-8.2) g/dL Albumin (3.5-5.0) g/dL - Radiology Data Radiology results: image reviewed (Chest x-ray: Limited exam, no acute process. X-ray of the right shoulder, no acute process.) Disposition Clinical Impression: Shoulder pain Disposition: HOME SELF-CARE Condition: Stable Instructions (If sedation given, give patient instructions): Shoulder Pain (ED) Additional Instructions: Please follow-up through primary care physician Paul smith. If symptoms continue you may need orthopedic evaluation. Return for worsening or changing symptoms, fever, weakness, or any other concerns. Is patient prescribed a controlled substance at d/c from ED?: No Referrals: Beau Jade MD [Primary Care Provider] - 1-2 days Time of Disposition: 00:42
--- NOTE | 2019-06-10 23:11 | XR ---
EXAMINATION TYPE: XR chest 2V DATE OF EXAM: 06/10/2019 COMPARISON: 05/02/2019 HISTORY: Chest pain TECHNIQUE: Frontal and lateral views of the chest are obtained. FINDINGS: There is no heart failure nor confluent pneumonic infiltrate. Exam is limited by patient's size. There is no definite pleural effusion. Bony thorax appears intact. IMPRESSION: Limited exam. No active cardiopulmonary disease. No change.
--- NOTE | 2019-06-10 23:13 | XR ---
EXAMINATION TYPE: XR shoulder complete RT DATE OF EXAM: 06/10/2019 COMPARISON: 01/31/2019 HISTORY: Pain TECHNIQUE: 3 views FINDINGS: The glenohumeral joint is anatomic. I see no fracture nor dislocation. The AC joint is inta ct. IMPRESSION: No acute abnormality of the right shoulder. No change.
[2019-06-10] MEDS ORDERED: KETOROLAC 30 MG/ML 1 ML VIAL IVP STA (23:28)
[2019-06-10 23:55] LABS: HCT 33.8 % (34.0-46.0); HGB 11.1 gm/dL (11.4-16.0); MCH 28.9 pg (25.0-35.0); MCHC 32.7 g/dL (31.0-37.0); MCV 88.3 fL (80.0-100.0); Mean Platelet Volume 6.2; Platelet Count 307 k/uL (150-450); RBC 3.83 m/uL (3.80-5.40); RDW 13.7 % (11.5-15.5); WBC 5.9 k/uL (3.8-10.6)
[2019-06-11 00:05] LABS: Partial Thromboplastin Time 31.4 sec (22.0-30.0)
[2019-06-11 00:21] LABS: ALT 24 U/L (9-52); AST 31 U/L (14-36); African American GFR (CKD) >90 (>60 ml/min/1.73 sqM); Alkaline Phosphatase 85 U/L (38-126); Anion Gap 9 mmol/L; Blood Urea Nitrogen 31 mg/dL (7-17); Calcium 9.1 mg/dL (8.4-10.2); Carbon Dioxide 32 mmol/L (22-30); Chloride 98 mmol/L (98-107); Glucose 96 mg/dL (74-99); Sodium 139 mmol/L (137-145); Total Bilirubin 0.4 mg/dL (0.2-1.3); Total Protein 6.7 g/dL (6.3-8.2)
[2019-06-11 00:22] LABS: Potassium 4.2 mmol/L (3.5-5.1)
[2019-06-11 00:24] LABS: Eosinophils # (M) 0.18 k/uL (0-0.7); Lymphocytes # (M) 1.59 k/uL (1.0-4.8); Monocytes # (M) 0.71 k/uL (0-1.0); Neutrophils % (M) 58 %; Nucleated Red Blood Cells 0 /100 WBC (0-0); Total Cells Counted 100
[2019-06-11 01:13] VITALS: BP 138/78; RESP 18
== END 2019-06-11 01:10 | disposition home or self-care (01) ==
LOC: EC 22:13
DX: M25.511 Pain in right shoulder (principal); R07.89 Other chest pain; J44.9 Chronic obstructive pulmonary disease, unspecified; I11.0 Hypertensive heart disease with heart failure; I50.9 Heart failure, unspecified; E11.9 Type 2 diabetes mellitus without complications; K21.9 Gastro-esophageal reflux disease without esophagitis; E78.5 Hyperlipidemia, unspecified; M19.90 Unspecified osteoarthritis, unspecified site; E03.9 Hypothyroidism, unspecified; D64.9 Anemia, unspecified; G25.81 Restless legs syndrome; F31.9 Bipolar disorder, unspecified; F41.9 Anxiety disorder, unspecified; Z88.0 Allergy status to penicillin; Z88.2 Allergy status to sulfonamides; Z88.7 Allergy status to serum and vaccine; Z88.8 Allergy status to other drugs, medicaments and biological substances; Z91.048 Other nonmedicinal substance allergy status; Z79.01 Long term (current) use of anticoagulants; Z79.1 Long term (current) use of non-steroidal anti-inflammatories (NSAID); Z79.52 Long term (current) use of systemic steroids; Z79.84 Long term (current) use of oral hypoglycemic drugs; Z79.890 Hormone replacement therapy; Z79.899 Other long term (current) drug therapy; Z87.01 Personal history of pneumonia (recurrent); Z86.711 Personal history of pulmonary embolism; Z87.2 Personal history of diseases of the skin and subcutaneous tissue; Z95.818 Presence of other cardiac implants and grafts; Z96.651 Presence of right artificial knee joint; Z91.81 History of falling; Z82.49 Family history of ischemic heart disease and other diseases of the circulatory system
CPT/HCPCS: 99285 ×2; 96374 ×2; 36415; 93005; 80053; 83735; 84484; 85025; 85610; 85730; 73030; 71046; J1885

== ENCOUNTER 2019-06-28 13:48 | Emergency (ER) | payer MEDICARE, OTHER ==
[2019-06-28 14:15] VITALS: BP 129/77; PULSE 78; RESP 18; TEMP 98
--- NOTE | 2019-06-28 14:47 | ED ---
General Adult HPI - General Source: patient, EMS, RN notes reviewed, old records reviewed Mode of arrival: EMS Limitations: no limitations <Canelo Lane - Last Filed: 06/28/19 16:26> <Galdino Cortés - Last Filed: 06/28/19 18:09> - General Chief complaint: Psychiatric Symptoms Stated complaint: Depression Time Seen by Provider: 06/28/19 13:56 - History of Present Illness Initial comments: Patient is a pleasant 59-year-old female presenting to the emergency Department with complaints of depression and suicidal thoughts. Patient also has anxiety. Patient states she did have an episode of chest discomfort before 7 AM this morning. Patient states symptoms have resolved. Patient states she does get similar symptoms daily chest chronic related to her anxiety. Patient does have suicidal thoughts without plan. No homicidal thoughts. No hallucinations. Patient denies any other physical complaints. No alcohol or street drug use. (Canelo Lane) - Related Data Home Medications Medication Instructions Recorded Confirmed Carvedilol [Coreg] 25 mg PO BID 06/07/17 06/28/19 Levothyroxine Sodium [Synthroid] 137 mcg PO DAILY 10/20/17 06/28/19 Montelukast [Singulair] 10 mg PO DAILY 06/28/18 06/28/19 DULoxetine HCL [Cymbalta] 60 mg PO BID 08/15/18 06/28/19 Gabapentin [Neurontin] 300 mg PO BID 08/15/18 06/28/19 Miconazole 2% Cream [Monistat-Derm] 1 applic TOPICAL TID 11/05/18 06/28/19 rOPINIRole HCL [Requip] 4 mg PO BID 11/18/18 06/28/19 Torsemide [Demadex] 50 mg PO SUTUTHSA 12/15/18 06/28/19 Torsemide [Demadex] 100 mg PO MOWEFR 12/15/18 06/28/19 Potassium Chloride [Klor-Con 20] 20 meq PO DAILY 02/26/19 06/28/19 Diclofenac Sodium [Voltaren Gel] 1 applic TOPICAL BID PRN 04/22/19 06/28/19 Loperamide [Imodium] 2 mg PO QID PRN 04/22/19 06/28/19 Mometasone Cream 0.1% 1 applic TOPICAL DAILY 04/22/19 06/28/19 Ondansetron HCl [Zofran] 4 mg PO BID PRN 04/22/19 06/28/19 Glimepiride [Amaryl] 2 mg PO AC-BRKFST 05/18/19 06/28/19 metFORMIN HCL [Glucophage] 500 mg PO BID 05/18/19 06/28/19 Vit C/E/Zn/Coppr/Lutein/Zeaxan 1 cap PO DAILY 05/24/19 06/28/19 [Preservision Areds 2 Softgel] Cariprazine HCl [Vraylar] 3 mg PO HS 06/10/19 06/28/19 hydrOXYzine PAMOATE [Vistaril] 25 mg PO DAILY PRN 06/10/19 06/28/19 traMADol HCL 50 mg PO TID PRN 06/28/19 06/28/19 Previous Rx's Medication Instructions Recorded Rivaroxaban [Xarelto] 20 mg PO DAILY 90 Days #90 tab 11/18/17 Allergies Allergy/AdvReac Type Severity Reaction Status Date / Time buspirone [From BuSpar] Allergy Unknown Verified 06/28/19 14:02 haloperidol [From Haldol] Allergy Swelling Verified 06/28/19 14:02 iodine Allergy Swelling Verified 06/28/19 14:02 Penicillins Allergy Swelling Verified 06/28/19 14:02 prochlorperazine Allergy Rash/Hives Verified 06/28/19 14:02 Sulfa (Sulfonamide Allergy Rash/Hives Verified 06/28/19 14:02 Antibiotics) Tetanus Vaccines and Toxoid Allergy Rash/Hives Verified 06/28/19 14:02 [Tetanus Vaccines & Toxoid] trifluoperazine HCl Allergy Unknown Verified 06/28/19 14:02 [From Stelazine] Review of Systems ROS Other: All systems not noted in ROS Statement are negative. Constitutional: Denies: fever Eyes: Denies: eye pain ENT: Denies: ear pain Respiratory: Denies: cough, dyspnea Cardiovascular: Reports: as per HPI Endocrine: Denies: fatigue Gastrointestinal: Denies: abdominal pain, nausea Genitourinary: Denies: dysuria Musculoskeletal: Denies: back pain Skin: Denies: rash Neurological: Denies: weakness Psychiatric: Reports: as per HPI, depression. Denies: auditory hallucinations, visual hallucinations, homicidal thoughts <Canelo Lane - Last Filed: 06/28/19 16:26> ROS Other: All systems not noted in ROS Statement are negative. <Galdino Cortés - Last Filed: 06/28/19 18:09> ROS Statement: Those systems with pertinent positive or pertinent negative responses have been documented in the HPI. Past Medical History Past Medical History: Asthma, Heart Failure, COPD, Diabetes Mellitus, GERD/Reflux, Hyperlipidemia, Hypertension, Musculoskeletal Disorder, Osteoarthritis (OA), Pneumonia, Pulmonary Embolus (PE), Thyroid Disorder Additional Past Medical History / Comment(s): chronic low back pain, herniated d iscs, RLS, leg edema, anemia, gout bilateral feet, hypothyroid, UTIs, hx cellulitis, cataracts, macular degeneration History of Any Multi-Drug Resistant Organisms: None Reported Past Surgical History: Bariatric Surgery, Heart Catheterization, Hernia Repair, Orthopedic Surgery Additional Past Surgical History / Comment(s): Total Right knee replacement, 3 abdominal hernia repairs, left hip repair d/t fracture, gastric bypass/revision, colonoscopy. Past Anesthesia/Blood Transfusion Reactions: No Reported Reaction Past Psychological History: Anxiety, Bipolar, Depression, Panic Disorder, PTSD Smoking Status: Never smoker Past Alcohol Use History: Occasional Past Drug Use History: None Reported - Past Family History Mother Family Medical History: Cancer Additional Family Medical History / Comment(s): lung cancer Father Family Medical History: Diabetes Mellitus Additional Family Medical History / Comment(s): "my dad from a blood clot that traveled from his leg to his lung and also caused a heart attack." Brother(s) Family Medical History: Diabetes Mellitus Sister(s) Additional Family Medical History / Comment(s): "her heart races too fast" <Canelo Lane - Last Filed: 06/28/19 16:26> General Exam Limitations: no limitations General appearance: alert, in no apparent distress, obese Head exam: Present: normocephalic Eye exam: Present: normal appearance, PERRL ENT exam: Present: normal oropharynx Neck exam: Present: normal inspection Respiratory exam: Present: normal lung sounds bilaterally. Absent: chest wall tenderness Cardiovascular Exam: Present: regular rate, normal rhythm GI/Abdominal exam: Present: soft. Absent: tenderness Extremities exam: Present: normal inspection. Absent: pedal edema, calf tenderness Neurological exam: Present: alert Psychiatric exam: Present: normal affect, normal mood Skin exam: Present: normal color <Canelo Lane - Last Filed: 06/28/19 16:26> Course Vital Signs 06/28/19 14:02 Temperature 98.0 F Pulse Rate 78 Respiratory 18 Rate Blood Pressure 129/77 O2 Sat by Pulse 99 Oximetry EKG Findings - EKG Comments: EKG Findings:: Normal sinus rhythm 83. NV 138. QRS 82. QT 370. QTc 434. Normal axis. Normal QRS. No acute ST change. <Canelo Lane - Last Filed: 06/28/19 16:26> Medical Decision Making - Lab Data Result diagrams: 06/28/19 14:58 06/28/19 14:58 - Radiology Data Radiology results: image reviewed (Chest x-ray shows no acute process. No change from previous.) <Canelo Lane - Last Filed: 06/28/19 16:26> - Lab Data Result diagrams: 06/28/19 14:58 06/28/19 14:58 <Galdino Cortés - Last Filed: 06/28/19 18:09> - Medical Decision Making Patient states still no chest discomfort. Patient was given some IV fluids. Patient does have chronically elevated BUN. Patient is medically clear for psychiatric evaluation at this time. (Canelo Lane) 59 female seen and evaluated here by psychiatry, patient is stable for discharge home. Patient can be discharged (Galdino Cortés) - Lab Data Lab Results 06/28/19 06/28/19 06/28/19 Range/Units 14:25 14:58 14:58 WBC 12.4 H (3.8-10.6) k/uL RBC 4.81 (3.80-5.40) m/uL Hgb 13.5 (11.4-16.0) gm/dL Hct 41.1 (34.0-46.0) % MCV 85.4 (80.0-100.0) fL MCH 28.1 (25.0-35.0) pg MCHC 32.9 (31.0-37.0) g/dL RDW 13.1 (11.5-15.5) % Plt Count 357 (150-450) k/uL Neutrophils % 87 % Lymphocytes % 9 % Monocytes % 3 % Eosinophils % 0 % Basophils % 1 % Neutrophils # 10.8 H (1.3-7.7) k/uL Lymphocytes # 1.1 (1.0-4.8) k/uL Monocytes # 0.3 (0-1.0) k/uL Eosinophils # 0.0 (0-0.7) k/uL Basophils # 0.1 (0-0.2) k/uL PT (9.0-12.0) sec INR (<1.2) APTT (22.0-30.0) sec Sodium 139 (137-145) mmol/L Potassium 4.5 (3.5-5.1) mmol/L Chloride 96 L (98-107) mmol/L Carbon Dioxide 30 (22-30) mmol/L Anion Gap 13 mmol/L BUN 41 H (7-17) mg/dL Creatinine 0.96 (0.52-1.04) mg/dL Est GFR (CKD-EPI)AfAm 75 (>60 ml/min/1.73 sqM) Est GFR (CKD-EPI)NonAf 65 (>60 ml/min/1.73 sqM) Glucose 119 H (74-99) mg/dL Calcium 10.0 (8.4-10.2) mg/dL Magnesium 1.6 (1.6-2.3) mg/dL Total Bilirubin 0.4 (0.2-1.3) mg/dL AST 25 (14-36) U/L ALT 25 (9-52) U/L Alkaline Phosphatase 128 H (38-126) U/L Troponin I (0.000-0.034) ng/mL Total Protein 8.0 (6.3-8.2) g/dL Albumin 4.9 (3.5-5.0) g/dL Urine Opiates Screen Not Detected (NotDetected) Ur Oxycodone Screen Not Detected (NotDetected) Urine Methadone Screen Not Detected (NotDetected) Ur Propoxyphene Screen Not Detected (NotDetected) Ur Barbiturates Screen Not Detected (NotDetected) U Tricyclic Antidepress Not Detected (NotDetected) Ur Phencyclidine Scrn Not Detected (NotDetected) Ur Amphetamines Screen Not Detected (NotDetected) U Methamphetamines Scrn Not Detected (NotDetected) U Benzodiazepines Scrn Not Detected (NotDetected) Urine Cocaine Screen Not Detected (NotDetected) U Marijuana (THC) Screen Not Detected (NotDetected) Serum Alcohol <10 mg/dL 06/28/19 06/28/19 Range/Units 14:58 14:58 WBC (3.8-10.6) k/uL RBC (3.80-5.40) m/uL Hgb (11.4-16.0) gm/dL Hct (34.0-46.0) % MCV (80.0-100.0) fL MCH (25.0-35.0) pg MCHC (31.0-37.0) g/dL RDW (11.5-15.5) % Plt Count (150-450) k/uL Neutrophils % % Lymphocytes % % Monocytes % % Eosinophils % % Basophils % % Neutrophils # (1.3-7.7) k/uL Lymphocytes # (1.0-4.8) k/uL Monocytes # (0-1.0) k/uL Eosinophils # (0-0.7) k/uL Basophils # (0-0.2) k/uL PT 10.3 (9.0-12.0) sec INR 1.0 (<1.2) APTT 23.0 (22.0-30.0) sec Sodium (137-145) mmol/L Potassium (3.5-5.1) mmol/L Chloride (98-107) mmol/L Carbon Dioxide (22-30) mmol/L Anion Gap mmol/L BUN (7-17) mg/dL Creatinine (0.52-1.04) mg/dL Est GFR (CKD-EPI)AfAm (>60 ml/min/1.73 sqM) Est GFR (CKD-EPI)NonAf (>60 ml/min/1.73 sqM) Glucose (74-99) mg/dL Calcium (8.4-10.2) mg/dL Magnesium (1.6-2.3) mg/dL Total Bilirubin (0.2-1.3) mg/dL AST (14-36) U/L ALT (9-52) U/L Alkaline Phosphatase (38-126) U/L Troponin I <0.012 (0.000-0.034) ng/mL Total Protein (6.3-8.2) g/dL Albumin (3.5-5.0) g/dL Urine Opiates Screen (NotDetected) Ur Oxycodone Screen (NotDetected) Urine Methadone Screen (NotDetected) Ur Propoxyphene Screen (NotDetected) Ur Barbiturates Screen (NotDetected) U Tricyclic Antidepress (NotDetected) Ur Phencyclidine Scrn (NotDetected) Ur Amphetamines Screen (NotDetected) U Methamphetamines Scrn (NotDetected) U Benzodiazepines Scrn (NotDetected) Urine Cocaine Screen (NotDetected) U Marijuana (THC) Screen (NotDetected) Serum Alcohol mg/dL Disposition <Canelo Lane - Last Filed: 06/28/19 16:26> Is patient prescribed a controlled substance at d/c from ED?: No <Galdino Cortés - Last Filed: 06/28/19 18:09> Clinical Impression: Depression, Acute anxiety, Atypical chest pain Disposition: HOME SELF-CARE Condition: Fair Instructions (If sedation given, give patient instructions): Depression (ED), Chest Pain (ED) Referrals: Beau Jade MD [Primary Care Provider] - 1-2 days
[2019-06-28 15:06] LABS: Amphetamine Screen,Urine Not Detected (NotDetected); Barbiturate Screen,Urine Not Detected (NotDetected); Benzodiazepines Screen,Urine Not Detected (NotDetected); Cocaine Screen,Urine Not Detected (NotDetected); Methadone Screen, Urine Not Detected (NotDetected); Opiate Screen,Urine Not Detected (NotDetected); Oxycodone Screen, Urine Not Detected (NotDetected); Phencyclidine Screen,Urine Not Detected (NotDetected); Tricyclic Antidepressant,Urine Not Detected (NotDetected); Urn Cannabinoid Scrn Not Detected (NotDetected)
[2019-06-28] MEDS: ASPIRIN 81 MG PO STA ×2 (15:10→15:38)
[2019-06-28 15:18] LABS: Basophils # (A) 0.1 k/uL (0-0.2); Basophils % (A) 1 %; Eosinophils % (A) 0 %; HCT 41.1 % (34.0-46.0); HGB 13.5 gm/dL (11.4-16.0); Lymphocytes # (A) 1.1 k/uL (1.0-4.8); Lymphocytes % (A) 9 %; MCH 28.1 pg (25.0-35.0); MCHC 32.9 g/dL (31.0-37.0); MCV 85.4 fL (80.0-100.0); Mean Platelet Volume 6.4; Monocytes # (A) 0.3 k/uL (0-1.0); Monocytes % (A) 3 %; Neutrophils # (A) 10.8 k/uL (1.3-7.7); Neutrophils % (A) 87 %; Platelet Count 357 k/uL (150-450); RBC 4.81 m/uL (3.80-5.40); RDW 13.1 % (11.5-15.5); WBC 12.4 k/uL (3.8-10.6)
[2019-06-28] MEDS ORDERED: ZIPRASIDONE 20 MG VIAL IM STA (15:18)
[2019-06-28 15:28] LABS: Prothrombin Time 10.3 sec (9.0-12.0)
[2019-06-28 15:31] LABS: ALT 25 U/L (9-52); AST 25 U/L (14-36); African American GFR (CKD) 75 (>60 ml/min/1.73 sqM); Albumin 4.9 g/dL (3.5-5.0); Alcohol <10 mg/dL; Alkaline Phosphatase 128 U/L (38-126); Anion Gap 13 mmol/L; Blood Urea Nitrogen 41 mg/dL (7-17); Carbon Dioxide 30 mmol/L (22-30); Chloride 96 mmol/L (98-107); Glucose 119 mg/dL (74-99); Magnesium 1.6 mg/dL (1.6-2.3); Potassium 4.5 mmol/L (3.5-5.1); Sodium 139 mmol/L (137-145); Total Bilirubin 0.4 mg/dL (0.2-1.3)
--- NOTE | 2019-06-28 15:37 | XR ---
EXAMINATION TYPE: XR chest 2V DATE OF EXAM: 06/28/2019 COMPARISON: 06/10/2019 HISTORY: Chest pain TECHNIQUE: Frontal and lateral views of the chest are obtained. FINDINGS: There is no heart failure nor confluent pneumonic infiltrate. Costophrenic angles are marylou r. There is some spurring in the thoracic spine. IMPRESSION: No active cardiopulmonary disease. No change.
[2019-06-28] MEDS ORDERED: SODIUM CHLORIDE 0.9% 500 ML 500 ML IV STA (15:41)
== END 2019-06-28 18:27 | disposition home or self-care (01) ==
LOC: EC 13:48
DX: F31.30 Bipolar disorder, current episode depressed, mild or moderate severity, unspecified (principal); F41.9 Anxiety disorder, unspecified; R45.851 Suicidal ideations; R79.89 Other specified abnormal findings of blood chemistry; J44.9 Chronic obstructive pulmonary disease, unspecified; I11.0 Hypertensive heart disease with heart failure; I50.9 Heart failure, unspecified; E11.9 Type 2 diabetes mellitus without complications; K21.9 Gastro-esophageal reflux disease without esophagitis; M19.90 Unspecified osteoarthritis, unspecified site; E03.9 Hypothyroidism, unspecified; G25.81 Restless legs syndrome; Z88.0 Allergy status to penicillin; Z88.2 Allergy status to sulfonamides; Z88.7 Allergy status to serum and vaccine; Z88.8 Allergy status to other drugs, medicaments and biological substances; Z91.048 Other nonmedicinal substance allergy status; Z79.52 Long term (current) use of systemic steroids; Z79.84 Long term (current) use of oral hypoglycemic drugs; Z79.890 Hormone replacement therapy; Z79.899 Other long term (current) drug therapy; Z96.651 Presence of right artificial knee joint; Z82.49 Family history of ischemic heart disease and other diseases of the circulatory system; Z53.20 Procedure and treatment not carried out because of patient's decision for unspecified reasons; Z53.8 Procedure and treatment not carried out for other reasons
CPT/HCPCS: 36415; 93005; 80053; 83735; 84484; 85025; 85610; 85730; 80306; 71046; 99285; G0480; 80320

== ENCOUNTER 2019-07-20 14:05 | Emergency (ER) | payer MEDICARE, OTHER ==
[2019-07-20 15:41] LABS: Basophils # (A) 0.1 k/uL (0-0.2); Basophils % (A) 1 %; Eosinophils # (A) 0.1 k/uL (0-0.7); Eosinophils % (A) 2 %; HCT 38.3 % (34.0-46.0); HGB 12.7 gm/dL (11.4-16.0); Lymphocytes # (A) 1.5 k/uL (1.0-4.8); Lymphocytes % (A) 18 %; MCH 28.7 pg (25.0-35.0); MCHC 33.1 g/dL (31.0-37.0); MCV 86.6 fL (80.0-100.0); Mean Platelet Volume 6.3; Monocytes # (A) 0.5 k/uL (0-1.0); Monocytes % (A) 5 %; Neutrophils # (A) 6.2 k/uL (1.3-7.7); Neutrophils % (A) 72 %; Platelet Count 332 k/uL (150-450); RBC 4.43 m/uL (3.80-5.40); RDW 13.4 % (11.5-15.5); WBC 8.5 k/uL (3.8-10.6)
[2019-07-20] MEDS ORDERED: SODIUM CHLORIDE 0.9% 500 ML 500 ML IV ONE (15:42)
[2019-07-20] MEDS ORDERED: SODIUM CHLORIDE 0.9% 1,000 ML IV SCH (15:45)
[2019-07-20 15:51] LABS: Albumin 4.3 g/dL (3.5-5.0); Calcium 9.1 mg/dL (8.4-10.2); Potassium 5.6 mmol/L (3.5-5.1); Total Bilirubin 0.8 mg/dL (0.2-1.3); Total Protein 7.8 g/dL (6.3-8.2)
[2019-07-20 15:53] VITALS: BP 139/74; PULSE 98; RESP 20
[2019-07-20] MEDS ORDERED: FUROSEMIDE 10 MG/ML 2 ML VIAL IV STA (15:54)
[2019-07-20] MEDS ORDERED: SODIUM POLYSTYRENE SULFONATE 15 GM/60 ML BOTTLE PO STA (15:55)
[2019-07-20] MEDS ORDERED: KETOROLAC 30 MG/ML 1 ML VIAL IVP STA (15:57)
--- NOTE | 2019-07-20 15:57 | ED ---
Recheck HPI - General Chief Complaint: Recheck/Abnormal Lab/Rx Stated Complaint: Muscle Cramps Time Seen by Provider: 07/20/19 14:37 Source: patient Mode of arrival: ambulatory Limitations: no limitations - History of Present Illness Initial Comments: 59yo female presenting for all over body cramps. Patient states she is cramps all over body including her low back she states that she is concerned about potassium as it has been low and elevated in the past. Patient takes potassium supplements. Patient denies any falls trauma to back IV drug use, cancer of the bowel bladder control urinary retention. Chest pain shortness of breath nausea vomiting abdominal pain or any other complaints. Denies lower extremity swelling. Remaining review systems negative upon arrival patient appears well signs of acute distress. - Related Data Home Medications Medication Instructions Recorded Confirmed Carvedilol [Coreg] 25 mg PO BID 06/07/17 06/28/19 Levothyroxine Sodium [Synthroid] 137 mcg PO DAILY 10/20/17 06/28/19 Montelukast [Singulair] 10 mg PO DAILY 06/28/18 06/28/19 DULoxetine HCL [Cymbalta] 60 mg PO BID 08/15/18 06/28/19 Gabapentin [Neurontin] 300 mg PO BID 08/15/18 06/28/19 Miconazole 2% Cream [Monistat-Derm] 1 applic TOPICAL TID 11/05/18 06/28/19 rOPINIRole HCL [Requip] 4 mg PO BID 11/18/18 06/28/19 Torsemide [Demadex] 50 mg PO SUTUTHSA 12/15/18 06/28/19 Torsemide [Demadex] 100 mg PO MOWEFR 12/15/18 06/28/19 Potassium Chloride [Klor-Con 20] 20 meq PO DAILY 02/26/19 06/28/19 Diclofenac Sodium [Voltaren Gel] 1 applic TOPICAL BID PRN 04/22/19 06/28/19 Loperamide [Imodium] 2 mg PO QID PRN 04/22/19 06/28/19 Mometasone Cream 0.1% 1 applic TOPICAL DAILY 04/22/19 06/28/19 Ondansetron HCl [Zofran] 4 mg PO BID PRN 04/22/19 06/28/19 Glimepiride [Amaryl] 2 mg PO AC-BRKFST 05/18/19 06/28/19 metFORMIN HCL [Glucophage] 500 mg PO BID 05/18/19 06/28/19 Vit C/E/Zn/Coppr/Lutein/Zeaxan 1 cap PO DAILY 05/24/19 06/28/19 [Preservision Areds 2 Softgel] Cariprazine HCl [Vraylar] 3 mg PO HS 06/10/19 06/28/19 hydrOXYzine PAMOATE [Vistaril] 25 mg PO DAILY PRN 06/10/19 06/28/19 traMADol HCL 50 mg PO TID PRN 06/28/19 06/28/19 Previous Rx's Medication Instructions Recorded Rivaroxaban [Xarelto] 20 mg PO DAILY 90 Days #90 tab 11/18/17 Allergies Allergy/AdvReac Type Severity Reaction Status Date / Time buspirone [From BuSpar] Allergy Unknown Verified 06/28/19 14:02 haloperidol [From Haldol] Allergy Swelling Verified 06/28/19 14:02 iodine Allergy Swelling Verified 06/28/19 14:02 Penicillins Allergy Swelling Verified 06/28/19 14:02 prochlorperazine Allergy Rash/Hives Verified 06/28/19 14:02 Sulfa (Sulfonamide Allergy Rash/Hives Verified 06/28/19 14:02 Antibiotics) Tetanus Vaccines and Toxoid Allergy Rash/Hives Verified 06/28/19 14:02 [Tetanus Vaccines & Toxoid] trifluoperazine HCl Allergy Unknown Verified 06/28/19 14:02 [From Stelazine] Review of Systems ROS Statement: Those systems with pertinent positive or pertinent negative responses have been documented in the HPI. ROS Other: All systems not noted in ROS Statement are negative. Past Medical History Past Medical History: Asthma, Heart Failure, COPD, Diabetes Mellitus, GERD/Reflux, Hyperlipidemia, Hypertension, Musculoskeletal Disorder, Osteoarthritis (OA), Pneumonia, Pulmonary Embolus (PE), Thyroid Disorder Additional Past Medical History / Comment(s): chronic low back pain, herniated discs, RLS, leg edema, anemia, gout bilateral feet, hypothyroid, UTIs, hx cellulitis, cataracts, macular degeneration History of Any Multi-Drug Resistant Organisms: None Reported Past Surgical History: Bariatric Surgery, Heart Catheterization, Hernia Repair, Orthopedic Surgery Additional Past Surgical History / Comment(s): Total Right knee replacement, 3 abdominal hernia repairs, left hip repair d/t fracture, gastric bypass/revision, colonoscopy. Past Anesthesia/Blood Transfusion Reactions: No Reported Reaction Past Psychological History: Anxiety, Bipolar, Depression, Panic Disorder, PTSD Smoking Status: Never smoker Past Alcohol Use History: Occasional Past Drug Use History: None Reported - Past Family History Mother Family Medical History: Cancer Additional Family Medical History / Comment(s): lung cancer Father Family Medical History: Diabetes Mellitus Additional Family Medical History / Comment(s): "my dad from a blood clot that traveled from his leg to his lung and also caused a heart attack." Brother(s) Family Medical History: Diabetes Mellitus Sister(s) Additional Family Medical History / Comment(s): "her heart races too fast" General Exam - General Exam Comments Initial Comments: \\General: The patient is awake and alert, in no distress, and does not appear acutely ill. Morbidly obese Eye: Pupils are equal, round and reactive to light, extra-ocular movements are intact. No nystagmus. There is normal conjunctiva bilaterally. No signs of icterus. Ears, nose, mouth and throat: There are moist mucous membranes and no oral lesions. Neck: The neck is supple, there is no tenderness or JVD. Cardiovascular: There is a regular rate and rhythm. No murmur, rub or gallop is appreciated. Respiratory: Lungs are clear to auscultation, respirations are non-labored, breath sounds are equal. No wheezes, stridor, rales, or rhonchi. Gastrointestinal: Soft, non-distended, non-tender abdomen without masses or organomegaly noted. There is no rebound or guarding present. No CVA tenderness. Bowel sounds are unremarkable. Musculoskeletal: No midline tenderness to patient the cervical thoracic or lumbar spine. Minimal paravertebral tenderness. Normal ROM, no tenderness. Strength 5/5 of the LE b/l. Sensation intact of the LE b/l. DP pulses equal bilaterally 2+. Neurological: A&O x 3. CN II-XII intact rgossly, There are no obvious motor or sensory deficits. Coordination appears grossly intact. Speech is normal. Skin: Skin is warm and dry and no rashes or lesions are noted. Psychiatric: Cooperative, appropriate mood & affect, normal judgment. Limitations: no limitations Course Vital Signs 07/20/19 07/20/19 07/20/19 14:17 15:52 16:25 Temperature 98.5 F 99 F Pulse Rate 111 H 98 Respiratory 18 20 Rate Blood Pressure 128/76 139/74 O2 Sat by Pulse 98 96 Oximetry Medical Decision Making - Medical Decision Making 89-year-old female presenting to the emergency department for evaluation of muscle cramps. Very mild elevation of potassium. Given Kayexalate-patient states she wants to take it at home. Given Toradol for muscle spasms/pain. Other laboratory studies stable. Patient appears well, CK WNL. Patient case discussed with Dr. Lane, patient discharged appearing well. - Lab Data Result diagrams: 07/20/19 15:29 07/20/19 15:29 Lab Results 07/20/19 07/20/19 Range/Units 15:29 15:29 WBC 8.5 (3.8-10.6) k/uL RBC 4.43 (3.80-5.40) m/uL Hgb 12.7 (11.4-16.0) gm/dL Hct 38.3 (34.0-46.0) % MCV 86.6 (80.0-100.0) fL MCH 28.7 (25.0-35.0) pg MCHC 33.1 (31.0-37.0) g/dL RDW 13.4 (11.5-15.5) % Plt Count 332 (150-450) k/uL Neutrophils % 72 % Lymphocytes % 18 % Monocytes % 5 % Eosinophils % 2 % Basophils % 1 % Neutrophils # 6.2 (1.3-7.7) k/uL Lymphocytes # 1.5 (1.0-4.8) k/uL Monocytes # 0.5 (0-1.0) k/uL Eosinophils # 0.1 (0-0.7) k/uL Basophils # 0.1 (0-0.2) k/uL Sodium 136 L (137-145) mmol/L Potassium 5.6 H (3.5-5.1) mmol/L Chloride 99 (98-107) mmol/L Carbon Dioxide 28 (22-30) mmol/L Anion Gap 9 mmol/L BUN 24 H (7-17) mg/dL Creatinine 0.99 (0.52-1.04) mg/dL Est GFR (CKD-EPI)AfAm 73 (>60 ml/min/1.73 sqM) Est GFR (CKD-EPI)NonAf 63 (>60 ml/min/1.73 sqM) Glucose 91 (74-99) mg/dL Calcium 9.1 (8.4-10.2) mg/dL Total Bilirubin 0.8 (0.2-1.3) mg/dL AST 50 H (14-36) U/L ALT 15 (9-52) U/L Alkaline Phosphatase 93 (38-126) U/L Creatine Kinase 60 (30-135) U/L Total Protein 7.8 (6.3-8.2) g/dL Albumin 4.3 (3.5-5.0) g/dL Disposition Clinical Impression: Muscle cramps, Hyperkalemia, Acute exacerbation of chronic low back pain Disposition: HOME SELF-CARE Condition: Good Instructions (If sedation given, give patient instructions): Muscle Cramp (ED) Additional Instructions: Please use medication as discussed. Please follow-up with family doctor in the next 2 days. Please return to emergency room if the symptoms increase or worsen or for any other concerns. Is patient prescribed a controlled substance at d/c from ED?: No Referrals: Beau Jade MD [Primary Care Provider] - 1-2 days Time of Disposition: 15:56
[2019-07-20 16:26] VITALS: TEMP 99
== END 2019-07-20 16:01 | disposition home or self-care (01) ==
LOC: EC 14:05
DX: E87.5 Hyperkalemia (principal); M54.5 Low back pain; G89.29 Other chronic pain; J44.9 Chronic obstructive pulmonary disease, unspecified; I11.0 Hypertensive heart disease with heart failure; I50.9 Heart failure, unspecified; E11.9 Type 2 diabetes mellitus without complications; K21.9 Gastro-esophageal reflux disease without esophagitis; M19.90 Unspecified osteoarthritis, unspecified site; G25.81 Restless legs syndrome; M10.9 Gout, unspecified; E03.9 Hypothyroidism, unspecified; F31.9 Bipolar disorder, unspecified; F41.0 Panic disorder [episodic paroxysmal anxiety]; Z88.0 Allergy status to penicillin; Z88.2 Allergy status to sulfonamides; Z88.7 Allergy status to serum and vaccine; Z88.8 Allergy status to other drugs, medicaments and biological substances; Z91.048 Other nonmedicinal substance allergy status; Z79.84 Long term (current) use of oral hypoglycemic drugs; Z79.52 Long term (current) use of systemic steroids; Z79.890 Hormone replacement therapy; Z79.899 Other long term (current) drug therapy; Z87.2 Personal history of diseases of the skin and subcutaneous tissue; Z96.651 Presence of right artificial knee joint
CPT/HCPCS: 36415; 80053; 82550; 85025; 99283; 96374; J1885

== ENCOUNTER 2019-07-29 13:02 | Emergency (ER) | payer MEDICARE, OTHER ==
[2019-07-29 13:10] VITALS: RESP 18
[2019-07-29] MEDS ORDERED: HYDROcodone/APAP 7.5-325MG 1 EACH TAB PO ONE (13:20)
[2019-07-29] MEDS ORDERED: KETOROLAC 60 MG/2 ML VIAL IM STA (13:37)
--- NOTE | 2019-07-29 14:03 | ED ---
Extremity Problem HPI - General Source: patient, EMS, RN notes reviewed Mode of arrival: EMS Limitations: no limitations <Juan Alberto Hutchins - Last Filed: 07/29/19 15:41> <Mayra Layton - Last Filed: 07/29/19 17:32> - General Chief complaint: Extremity Problem,Nontraumatic Stated complaint: Hip and knee pain Time Seen by Provider: 07/29/19 13:08 - History of Present Illness Initial comments: 59-year-old female well-known emergency department presents via EMS for pain. Patient called 911 for lift assist. Patient stated that she had pain in her hip and left knee which is chronic from bone on bone joints. She was advised that she cannot have orthopedics surgery until she lost weight. Patient states that she cannot live this way with her problems. She states that she needs it fixed today. Patient denies any new injuries denies fevers chills no chest pain or shortness breath. (Juan Alberto Hutchins) - Related Data Home Medications Medication Instructions Recorded Confirmed Carvedilol [Coreg] 25 mg PO BID 06/07/17 06/28/19 Levothyroxine Sodium [Synthroid] 137 mcg PO DAILY 10/20/17 06/28/19 Montelukast [Singulair] 10 mg PO DAILY 06/28/18 06/28/19 DULoxetine HCL [Cymbalta] 60 mg PO BID 08/15/18 06/28/19 Gabapentin [Neurontin] 300 mg PO BID 08/15/18 06/28/19 Miconazole 2% Cream [Monistat-Derm] 1 applic TOPICAL TID 11/05/18 06/28/19 rOPINIRole HCL [Requip] 4 mg PO BID 11/18/18 06/28/19 Torsemide [Demadex] 50 mg PO SUTUTHSA 12/15/18 06/28/19 Torsemide [Demadex] 100 mg PO MOWEFR 12/15/18 06/28/19 Potassium Chloride [Klor-Con 20] 20 meq PO DAILY 02/26/19 06/28/19 Diclofenac Sodium [Voltaren Gel] 1 applic TOPICAL BID PRN 04/22/19 06/28/19 Loperamide [Imodium] 2 mg PO QID PRN 04/22/19 06/28/19 Mometasone Cream 0.1% 1 applic TOPICAL DAILY 04/22/19 06/28/19 Ondansetron HCl [Zofran] 4 mg PO BID PRN 04/22/19 06/28/19 Glimepiride [Amaryl] 2 mg PO AC-BRKFST 05/18/19 06/28/19 metFORMIN HCL [Glucophage] 500 mg PO BID 05/18/19 06/28/19 Vit C/E/Zn/Coppr/Lutein/Zeaxan 1 cap PO DAILY 05/24/19 06/28/19 [Preservision Areds 2 Softgel] Cariprazine HCl [Vraylar] 3 mg PO HS 06/10/19 06/28/19 hydrOXYzine PAMOATE [Vistaril] 25 mg PO DAILY PRN 06/10/19 06/28/19 traMADol HCL 50 mg PO TID PRN 06/28/19 06/28/19 Previous Rx's Medication Instructions Recorded Rivaroxaban [Xarelto] 20 mg PO DAILY 90 Days #90 tab 11/18/17 Allergies Allergy/AdvReac Type Severity Reaction Status Date / Time buspirone [From BuSpar] Allergy Unknown Verified 06/28/19 14:02 haloperidol [From Haldol] Allergy Swelling Verified 06/28/19 14:02 iodine Allergy Swelling Verified 06/28/19 14:02 Penicillins Allergy Swelling Verified 06/28/19 14:02 prochlorperazine Allergy Rash/Hives Verified 06/28/19 14:02 Sulfa (Sulfonamide Allergy Rash/Hives Verified 06/28/19 14:02 Antibiotics) Tetanus Vaccines and Toxoid Allergy Rash/Hives Verified 06/28/19 14:02 [Tetanus Vaccines & Toxoid] trifluoperazine HCl Allergy Unknown Verified 06/28/19 14:02 [From Stelazine] Review of Systems ROS Other: All systems not noted in ROS Statement are negative. <Juan Alberto Hutchins - Last Filed: 07/29/19 15:41> ROS Other: All systems not noted in ROS Statement are negative. <Mayra Layton - Last Filed: 07/29/19 17:32> ROS Statement: Those systems with pertinent positive or pertinent negative responses have been documented in the HPI. Past Medical History Past Medical History: Asthma, Heart Failure, COPD, Diabetes Mellitus, GERD/Reflux, Hyperlipidemia, Hypertension, Musculoskeletal Disorder, Osteoarthritis (OA), Pneumonia, Pulmonary Embolus (PE), Thyroid Disorder Additional Past Medical History / Comment(s): chronic low back pain, herniated discs, RLS, leg edema, anemia, gout bilateral feet, hypothyroid, UTIs, hx cellulitis, cataracts, macular degeneration History of Any Multi-Drug Resistant Organisms: None Reported Past Surgical History: Bariatric Surgery, Heart Catheterization, Hernia Repair, Orthopedic Surgery Additional Past Surgical History / Comment(s): Total Right knee replacement, 3 abdominal hernia repairs, left hip repair d/t fracture, gastric bypass/revision, colonoscopy. Past Anesthesia/Blood Transfusion Reactions: No Reported Reaction Past Psychological History: Anxiety, Bipolar, Depression, Panic Disorder, PTSD Smoking Status: Never smoker Past Alcohol Use History: Occasional Past Drug Use History: None Reported - Past Family History Mother Family Medical History: Cancer Additional Family Medical History / Comment(s): lung cancer Father Family Medical History: Diabetes Mellitus Additional Family Medical History / Comment(s): "my dad from a blood clot that traveled from his leg to his lung and also caused a heart attack." Brother(s) Family Medical History: Diabetes Mellitus Sister(s) Additional Family Medical History / Comment(s): "her heart races too fast" <Juan Alberto Hutchins - Last Filed: 07/29/19 15:41> General Exam Limitations: no limitations General appearance: alert, in no apparent distress, obese Neck exam: Present: normal inspection, full ROM. Absent: tenderness, meningismus, lymphadenopathy Respiratory exam: Present: normal lung sounds bilaterally. Absent: respiratory distress, wheezes, rales, rhonchi, stridor Cardiovascular Exam: Present: regular rate, normal rhythm, normal heart sounds. Absent: systolic murmur, diastolic murmur, rubs, gallop, clicks GI/Abdominal exam: Present: soft, normal bowel sounds. Absent: distended, tenderness, guarding, rebound, rigid Extremities exam: Present: other (Full range of motion of all extremities there is diffuse pain left knee and hip) <Juan Alberto Hutchins - Last Filed: 07/29/19 15:41> Course <Juan Alberto Hutchins - Last Filed: 07/29/19 15:41> Vital Signs 07/29/19 13:05 Temperature 98.2 F Pulse Rate 88 Respiratory 18 Rate Blood Pressure 138/83 O2 Sat by Pulse 98 Oximetry - Reevaluation(s) Reevaluation #1: 07/29/19 14:03 Patient refuses x-rays, she states that because we will not fix her knee or hip today that she wants to be suicidal and she states she will think about a plan (Juan Alberto Hutchins) Medical Decision Making <Juan Alberto Hutchins - Last Filed: 07/29/19 15:41> - Medical Decision Making Patient refuses any x-rays though when states she was suicidal she was evaluated by EPS and which the patient will need to be transferred secondary to being bariatric services. Patient will have lab work ordered at this time. (Juan Alberto Hutchins) - Lab Data Lab Results 07/29/19 07/29/19 Range/Units 14:15 14:15 Urine Color Light Yellow Urine Appearance Clear (Clear) Urine pH 5.0 (5.0-8.0) Ur Specific Apex 1.007 (1.001-1.035) Urine Protein Negative (Negative) Urine Glucose (UA) Negative (Negative) Urine Ketones Negative (Negative) Urine Blood Negative (Negative) Urine Nitrite Negative (Negative) Urine Bilirubin Negative (Negative) Urine Urobilinogen <2.0 (<2.0) mg/dL Ur Leukocyte Esterase Negative (Negative) Urine Opiates Screen Not Detected (NotDetected) Ur Oxycodone Screen Not Detected (NotDetected) Urine Methadone Screen Not Detected (NotDetected) Ur Propoxyphene Screen Not Detected (NotDetected) Ur Barbiturates Screen Not Detected (NotDetected) U Tricyclic Antidepress Not Detected (NotDetected) Ur Phencyclidine Scrn Not Detected (NotDetected) Ur Amphetamines Screen Not Detected (NotDetected) U Methamphetamines Scrn Not Detected (NotDetected) U Benzodiazepines Scrn Not Detected (NotDetected) Urine Cocaine Screen Not Detected (NotDetected) U Marijuana (THC) Screen Not Detected (NotDetected) Disposition Time of Disposition: 15:40 <Juan Alberto Hutchins - Last Filed: 07/29/19 15:41> Is patient prescribed a controlled substance at d/c from ED?: No <Mayra Layton - Last Filed: 07/29/19 17:32> Clinical Impression: Chronic pain, Depression Disposition: HOME SELF-CARE Condition: Stable Instructions (If sedation given, give patient instructions): Knee Pain (ED) Additional Instructions: Please follow-up with your primary care doctor in 2-4 days. Return to the emergency room for any new or worsening symptoms Referrals: Beau Jade MD [Primary Care Provider] - 1-2 days
[2019-07-29 14:38] LABS: Amphetamine Screen,Urine Not Detected (NotDetected); Barbiturate Screen,Urine Not Detected (NotDetected); Benzodiazepines Screen,Urine Not Detected (NotDetected); Cocaine Screen,Urine Not Detected (NotDetected); Methadone Screen, Urine Not Detected (NotDetected); Opiate Screen,Urine Not Detected (NotDetected); Oxycodone Screen, Urine Not Detected (NotDetected); Phencyclidine Screen,Urine Not Detected (NotDetected); Tricyclic Antidepressant,Urine Not Detected (NotDetected); Urn Cannabinoid Scrn Not Detected (NotDetected)
[2019-07-29 15:50] LABS: Appearance,Urine Clear (Clear); Bilirubin,Urine Negative (Negative); Blood,Urine Negative (Negative); Color,Urine Light Yellow; Glucose,Urine (UA) Negative (Negative); Ketones,Urine Negative (Negative); Leukocyte Esterase,Urine Negative (Negative); Nitrite,Urine Negative (Negative); Protein,Urine Negative (Negative); Specific Gravity,Urine 1.007 (1.001-1.035); Urobilinogen,Urine <2.0 mg/dL (<2.0)
[2019-07-29 17:42] VITALS: BP 145/82; PULSE 84; TEMP 98.1
== END 2019-07-29 17:45 | disposition home or self-care (01) ==
LOC: EC 13:02
DX: G89.29 Other chronic pain (principal); M25.562 Pain in left knee; M25.552 Pain in left hip; M54.5 Low back pain; F32.9 Major depressive disorder, single episode, unspecified; R45.851 Suicidal ideations; F41.9 Anxiety disorder, unspecified; F41.0 Panic disorder [episodic paroxysmal anxiety]; F43.10 Post-traumatic stress disorder, unspecified; E11.9 Type 2 diabetes mellitus without complications; K21.9 Gastro-esophageal reflux disease without esophagitis; E78.5 Hyperlipidemia, unspecified; I10 Essential (primary) hypertension; M19.90 Unspecified osteoarthritis, unspecified site; E03.9 Hypothyroidism, unspecified; M10.9 Gout, unspecified; Z79.890 Hormone replacement therapy; Z79.84 Long term (current) use of oral hypoglycemic drugs; Z79.899 Other long term (current) drug therapy; Z88.8 Allergy status to other drugs, medicaments and biological substances; Z91.041 Radiographic dye allergy status; Z88.0 Allergy status to penicillin; Z88.2 Allergy status to sulfonamides; Z88.7 Allergy status to serum and vaccine; Z95.5 Presence of coronary angioplasty implant and graft; Z96.651 Presence of right artificial knee joint
CPT/HCPCS: 82075; 81003; 80306; 99284; 96372; J1885

== ENCOUNTER 2019-08-13 16:56 | Emergency (ER) | payer MEDICARE, OTHER ==
--- NOTE | 2019-08-13 17:35 | ED ---
Psych HPI - General Chief Complaint: Psychiatric Symptoms Stated Complaint: EPS eval Time Seen by Provider: 08/13/19 17:16 Source: patient, RN notes reviewed, old records reviewed Mode of arrival: EMS Limitations: no limitations - History of Present Illness Initial Comments: This is a 59-year-old female presented for evaluation regards to acute illness. Patient will ER for psychiatric illness anxiety and occasional shortness of breath issues. Patient comes in today with cough and shortness of breath as well as anxiety she is not suicidal she is not homicidal does not want to be evaluated by psychiatry here in the ER H&P presents to she had a family member this week and she also had an episode at her activity where she is unable to motor activity for the next 3 days. Patient presents to ER very anxious but again no homicidal or suicidal thoughts no drug or alcohol abuse MD Complaint: feels depressed -: days(s) Associated Psychiatric Symptoms: depression, racing thoughts History of same: Yes Quality: constant Context: significant life stressor (Recent of family member) Associated Symptoms: shortness of breath (Anxiety and COPD) Treatments Prior to Arrival: none If Self Harm: other - Related Data Home Medications Medication Instructions Recorded Confirmed Carvedilol [Coreg] 25 mg PO BID 06/07/17 06/28/19 Levothyroxine Sodium [Synthroid] 137 mcg PO DAILY 10/20/17 06/28/19 Montelukast [Singulair] 10 mg PO DAILY 06/28/18 06/28/19 DULoxetine HCL [Cymbalta] 60 mg PO BID 08/15/18 06/28/19 Gabapentin [Neurontin] 300 mg PO BID 08/15/18 06/28/19 Miconazole 2% Cream [Monistat-Derm] 1 applic TOPICAL TID 11/05/18 06/28/19 rOPINIRole HCL [Requip] 4 mg PO BID 11/18/18 06/28/19 Torsemide [Demadex] 50 mg PO SUTUTHSA 12/15/18 06/28/19 Torsemide [Demadex] 100 mg PO MOWEFR 12/15/18 06/28/19 Potassium Chloride [Klor-Con 20] 20 meq PO DAILY 02/26/19 06/28/19 Diclofenac Sodium [Voltaren Gel] 1 applic TOPICAL BID PRN 04/22/19 06/28/19 Loperamide [Imodium] 2 mg PO QID PRN 04/22/19 06/28/19 Mometasone Cream 0.1% 1 applic TOPICAL DAILY 04/22/19 06/28/19 Ondansetron HCl [Zofran] 4 mg PO BID PRN 04/22/19 06/28/19 Glimepiride [Amaryl] 2 mg PO AC-BRKFST 05/18/19 06/28/19 metFORMIN HCL [Glucophage] 500 mg PO BID 05/18/19 06/28/19 Vit C/E/Zn/Coppr/Lutein/Zeaxan 1 cap PO DAILY 05/24/19 06/28/19 [Preservision Areds 2 Softgel] Cariprazine HCl [Vraylar] 3 mg PO HS 06/10/19 06/28/19 hydrOXYzine PAMOATE [Vistaril] 25 mg PO DAILY PRN 06/10/19 06/28/19 traMADol HCL 50 mg PO TID PRN 06/28/19 06/28/19 Previous Rx's Medication Instructions Recorded Rivaroxaban [Xarelto] 20 mg PO DAILY 90 Days #90 tab 11/18/17 Allergies Allergy/AdvReac Type Severity Reaction Status Date / Time buspirone [From BuSpar] Allergy Unknown Verified 06/28/19 14:02 haloperidol [From Haldol] Allergy Swelling Verified 06/28/19 14:02 iodine Allergy Swelling Verified 06/28/19 14:02 Penicillins Allergy Swelling Verified 06/28/19 14:02 prochlorperazine Allergy Rash/Hives Verified 06/28/19 14:02 Sulfa (Sulfonamide Allergy Rash/Hives Verified 06/28/19 14:02 Antibiotics) Tetanus Vaccines and Toxoid Allergy Rash/Hives Verified 06/28/19 14:02 [Tetanus Vaccines & Toxoid] trifluoperazine HCl Allergy Unknown Verified 06/28/19 14:02 [From Stelazine] Review of Systems ROS Statement: Those systems with pertinent positive or pertinent negative responses have been documented in the HPI. ROS Other: All systems not noted in ROS Statement are negative. Past Medical History Past Medical History: Asthma, Heart Failure, COPD, Diabetes Mellitus, GERD/Reflux, Hyperlipidemia, Hypertension, Musculoskeletal Disorder, Osteoarthritis (OA), Pneumonia, Pulmonary Embolus (PE), Thyroid Disorder Additional Past Medical History / Comment(s): chronic low back pain, herniated discs, RLS, leg edema, anemia, gout bilateral feet, hypothyroid, UTIs, hx cellulitis, cataracts, macular degeneration History of Any Multi-Drug Resistant Organisms: None Reported Past Surgical History: Bariatric Surgery, Heart Catheterization, Hernia Repair, Orthopedic Surgery Additional Past Surgical History / Comment(s): Total Right knee replacement, 3 abdominal hernia repairs, left hip repair d/t fracture, gastric bypass/revision, colonoscopy. Past Anesthesia/Blood Transfusion Reactions: No Reported Reaction Past Psychological History: Anxiety, Bipolar, Depression, Panic Disorder, PTSD Smoking Status: Never smoker Past Alcohol Use History: Occasional Past Drug Use History: None Reported - Past Family History Mother Family Medical History: Cancer Additional Family Medical History / Comment(s): lung cancer Father Family Medical History: Diabetes Mellitus Additional Family Medical History / Comment(s): "my dad from a blood clot that traveled from his leg to his lung and also caused a heart attack." Brother(s) Family Medical History: Diabetes Mellitus Sister(s) Additional Family Medical History / Comment(s): "her heart races too fast" General Exam Limitations: no limitations General appearance: alert, in no apparent distress Head exam: Present: atraumatic, normocephalic, normal inspection Eye exam: Present: normal appearance, PERRL, EOMI. Absent: scleral icterus, conjunctival injection, periorbital swelling ENT exam: Present: normal exam, mucous membranes moist Neck exam: Present: normal inspection. Absent: tenderness, meningismus, lymphadenopathy Respiratory exam: Present: normal lung sounds bilaterally. Absent: respiratory distress, wheezes, rales, rhonchi, stridor Cardiovascular Exam: Present: regular rate, normal rhythm, normal heart sounds. Absent: systolic murmur, diastolic murmur, rubs, gallop, clicks GI/Abdominal exam: Present: soft, normal bowel sounds. Absent: distended, tenderness, guarding, rebound, rigid Extremities exam: Present: normal inspection, full ROM, normal capillary refill. Absent: tenderness, pedal edema, joint swelling, calf tenderness Back exam: Present: normal inspection Neurological exam: Present: alert, oriented X3, CN II-XII intact Psychiatric exam: Present: normal affect, normal mood Skin exam: Present: warm, dry, intact, normal color. Absent: rash Course Vital Signs 08/13/19 18:09 Pulse Rate 78 Respiratory 16 Rate - Reevaluation(s) Reevaluation #1: 08/13/19 18:21 Medical records reviewed Reevaluation #2: 08/13/19 18:22 She states she is not homicidal or suicidal refusing psychiatric admission or evaluation Reevaluation #3: 08/13/19 18:22 Patient filled patient feels better with breathing treatments of anxiety medication Medical Decision Making - Medical Decision Making 51 female ER for evaluation presents today for evaluation of anxiety increased anxiety secondary to increased life stress. Not homicidal or suicidal, patient can be discharged home Disposition Clinical Impression: COPD exacerbation, Depression Disposition: HOME SELF-CARE Condition: Good Instructions (If sedation given, give patient instructions): Anxiety (ED) Is patient prescribed a controlled substance at d/c from ED?: No Referrals: Beau Jade MD [Primary Care Provider] - 1-2 days
[2019-08-13] MEDS: LORazepam 2 MG/ML INJ IM STA (17:51)
[2019-08-13] MEDS: IPRATROPIUM-ALBUTEROL 3 ML NEB INHALATION STA (18:02)
[2019-08-13 18:09] VITALS: PULSE 78; RESP 16
[2019-08-13] MEDS ORDERED: ACETAMINOPHEN TAB 500 MG TAB PO STA (18:48)
== END 2019-08-13 20:30 | disposition home or self-care (01) ==
LOC: EC 16:56
DX: F32.9 Major depressive disorder, single episode, unspecified (principal); J44.1 Chronic obstructive pulmonary disease with (acute) exacerbation; F41.9 Anxiety disorder, unspecified; E03.9 Hypothyroidism, unspecified; E11.9 Type 2 diabetes mellitus without complications; E78.5 Hyperlipidemia, unspecified; G25.81 Restless legs syndrome; G89.29 Other chronic pain; H35.30 Unspecified macular degeneration; I11.0 Hypertensive heart disease with heart failure; I50.9 Heart failure, unspecified; M10.9 Gout, unspecified; M19.90 Unspecified osteoarthritis, unspecified site; Z79.84 Long term (current) use of oral hypoglycemic drugs; Z79.890 Hormone replacement therapy; Z79.899 Other long term (current) drug therapy; Z86.711 Personal history of pulmonary embolism; Z88.8 Allergy status to other drugs, medicaments and biological substances; Z91.041 Radiographic dye allergy status; Z88.0 Allergy status to penicillin; Z88.2 Allergy status to sulfonamides; Z88.7 Allergy status to serum and vaccine; Z88.1 Allergy status to other antibiotic agents; Z96.651 Presence of right artificial knee joint; Z98.84 Bariatric surgery status; Z95.5 Presence of coronary angioplasty implant and graft
CPT/HCPCS: 96372; 99284; 82075; 94640; J2060

== ENCOUNTER 2019-08-13 21:14 | Emergency (ER) | payer MEDICARE, OTHER ==
[2019-08-13] MEDS ORDERED: CARVEDILOL 12.5 MG TAB PO STA (21:42)
--- NOTE | 2019-08-13 21:48 | ED ---
Psych HPI - General Source: patient, police Mode of arrival: ambulatory - History of Present Illness MD Complaint: suicidal ideation, feels depressed -: days(s) Associated Psychiatric Symptoms: depression, suicidal ideation History of same: Yes Quality: constant Improves With: none Worsens With: none Associated Symptoms: denies other symptoms <Cj Castillo - Last Filed: 08/14/19 00:20> <Canelo Lane - Last Filed: 08/14/19 13:34> - General Chief Complaint: Psychiatric Symptoms Stated Complaint: petition Time Seen by Provider: 08/13/19 21:36 - History of Present Illness Initial Comments: this patient is a 59-year-old woman with history of previous mood disorder who presents to be valid for feeling suicidal. The patient states that this is been getting worse over the past few days. She states that she has been compliant with her medications but they don't seem to be doing much at the moment. The patient is denying other complaints. I was noted that her blood pressure was high in the triage area but she states she has not had any of her antihypertensive medication today. She is denying symptoms related to this. She is not having headache, chest pain, abdominal pain, dyspnea, any neurologic symptoms. (Cj Castillo) - Related Data Home Medications Medication Instructions Recorded Confirmed Carvedilol [Coreg] 25 mg PO BID 06/07/17 08/14/19 Levothyroxine Sodium [Synthroid] 137 mcg PO DAILY 10/20/17 08/14/19 Montelukast [Singulair] 10 mg PO DAILY 06/28/18 08/14/19 DULoxetine HCL [Cymbalta] 60 mg PO BID 08/15/18 08/14/19 Miconazole 2% Cream [Monistat-Derm] 1 applic TOPICAL TID 11/05/18 08/14/19 rOPINIRole HCL [Requip] 4 mg PO BID 11/18/18 08/14/19 Torsemide [Demadex] 50 mg PO SUTUTHSA 12/15/18 08/14/19 Torsemide [Demadex] 100 mg PO MOWEFR 12/15/18 08/14/19 Potassium Chloride [Klor-Con 20] 20 meq PO DAILY 02/26/19 08/14/19 Diclofenac Sodium [Voltaren Gel] 1 applic TOPICAL BID PRN 04/22/19 08/14/19 Loperamide [Imodium] 2 mg PO QID PRN 04/22/19 08/14/19 Mometasone Cream 0.1% 1 applic TOPICAL DAILY 04/22/19 08/14/19 Ondansetron HCl [Zofran] 4 mg PO BID PRN 04/22/19 08/14/19 metFORMIN HCL [Glucophage] 500 mg PO BID 05/18/19 08/14/19 Vit C/E/Zn/Coppr/Lutein/Zeaxan 1 cap PO DAILY 05/24/19 08/14/19 [Preservision Areds 2 Softgel] hydrOXYzine PAMOATE [Vistaril] 25 mg PO TID PRN 06/10/19 08/14/19 ALPRAZolam [Xanax] 0.5 mg PO BID PRN 08/14/19 08/14/19 Acetaminophen [Tylenol 8 Hour] 650 mg PO Q8H PRN 08/14/19 08/14/19 Albuterol Sulfate [Ventolin HFA] 1 - 2 puff INHALATION RT-Q6H PRN 08/14/1908/14 Allopurinol [Zyloprim] 100 mg PO DAILY 08/14/19 08/14/19 Cariprazine HCl [Vraylar] 6 mg PO HS 08/14/19 08/14/19 Celecoxib [CeleBREX] 400 mg PO DAILY 08/14/19 08/14/19 Cholecalciferol [Vitamin D3 (25 5,000 unit PO DAILY 08/14/19 08/14/19 Mcg = 1000 Iu)] Cyanocobalamin (Vitamin B-12) 1,000 mcg PO DAILY 08/14/19 08/14/19 [Vitamin B-12] Ferrous Sulfate [Feosol] 325 mg PO BID 08/14/19 08/14/19 Gabapentin 600 mg PO TID 08/14/19 08/14/19 Ipratropium-Albuterol Nebulize 3 ml INHALATION RT-QID PRN 08/14/19 08/14/19 [Duoneb 0.5 mg-3 mg/3 ml Soln] Lactobacillus Acidophilus 1 tab PO BID 08/14/19 08/14/19 [Acidophilus] Loratadine [Claritin] 10 mg PO DAILY 08/14/19 08/14/19 Magnesium Oxide [Mag-Ox] 400 mg PO DAILY 08/14/19 08/14/19 Multivitamins, Thera [Multivitamin 1 tab PO DAILY 08/14/19 08/14/19 (formulary)] Omeprazole 20 mg PO DAILY 08/14/19 08/14/19 Vitamin B-12/Folic Acid 1mg 1 tab PO DAILY 08/14/19 08/14/19 traZODone HCL [Desyrel] 100 mg PO HS 08/14/19 08/14/19 Previous Rx's Medication Instructions Recorded Rivaroxaban [Xarelto] 20 mg PO DAILY 90 Days #90 tab 11/18/17 Allergies Allergy/AdvReac Type Severity Reaction Status Date / Time buspirone [From BuSpar] Allergy Unknown Verified 08/14/19 11:08 haloperidol [From Haldol] Allergy Swelling Verified 08/14/19 11:08 iodine Allergy Swelling Verified 08/14/19 11:08 Penicillins Allergy Swelling Verified 08/14/19 11:08 prochlorperazine Allergy Rash/Hives Verified 08/14/19 11:08 Sulfa (Sulfonamide Allergy Rash/Hives Verified 08/14/19 11:08 Antibiotics) Tetanus Vaccines and Toxoid Allergy Rash/Hives Verified 08/14/19 11:08 [Tetanus Vaccines & Toxoid] trifluoperazine HCl Allergy Unknown Verified 08/14/19 11:08 [From Stelazine] Review of Systems ROS Other: All systems not noted in ROS Statement are negative. Constitutional: Denies: fever Respiratory: Denies: cough, dyspnea Cardiovascular: Denies: chest pain, palpitations, edema Gastrointestinal: Denies: abdominal pain, vomiting, diarrhea Genitourinary: Denies: dysuria, frequency Musculoskeletal: Denies: back pain Neurological: Denies: headache, weakness Psychiatric: Reports: depression, suicidal thoughts. Denies: auditory hallucinations, visual hallucinations, homicidal thoughts <Cj Castillo - Last Filed: 08/14/19 00:20> ROS Other: All systems not noted in ROS Statement are negative. <Canelo Lane - Last Filed: 08/14/19 13:34> ROS Statement: Those systems with pertinent positive or pertinent negative responses have been documented in the HPI. Past Medical History Past Medical History: Asthma, Heart Failure, COPD, Diabetes Mellitus, GERD/Reflux, Hyperlipidemia, Hypertension, Musculoskeletal Disorder, Osteoarthritis (OA), Pneumonia, Pulmonary Embolus (PE), Thyroid Disorder Additional Past Medical History / Comment(s): chronic low back pain, herniated discs, RLS, leg edema, anemia, gout bilateral feet, hypothyroid, UTIs, hx cellulitis, cataracts, macular degeneration History of Any Multi-Drug Resistant Organisms: None Reported Past Surgical History: Bariatric Surgery, Heart Catheterization, Hernia Repair, Orthopedic Surgery Additional Past Surgical History / Comment(s): Total Right knee replacement, 3 abdominal hernia repairs, left hip repair d/t fracture, gastric bypass/revision, colonoscopy. Past Anesthesia/Blood Transfusion Reactions: No Reported Reaction Past Psychological History: Anxiety, Bipolar, Depression, Panic Disorder, PTSD Smoking Status: Never smoker Past Alcohol Use History: Occasional Past Drug Use History: None Reported - Past Family History Mother Family Medical History: Cancer Additional Family Medical History / Comment(s): lung cancer Father Family Medical History: Diabetes Mellitus Additional Family Medical History / Comment(s): "my dad from a blood clot that traveled from his leg to his lung and also caused a heart attack." Brother(s) Family Medical History: Diabetes Mellitus Sister(s) Additional Family Medical History / Comment(s): "her heart races too fast" <Cj Castillo - Last Filed: 08/14/19 00:20> General Exam Limitations: no limitations General appearance: alert, in no apparent distress Head exam: Present: atraumatic, normocephalic Eye exam: Present: normal appearance. Absent: scleral icterus, conjunctival injection ENT exam: Present: normal oropharynx Respiratory exam: Present: normal lung sounds bilaterally. Absent: respiratory distress, wheezes, rales, rhonchi, stridor Cardiovascular Exam: Present: regular rate, normal rhythm, normal heart sounds. Absent: systolic murmur, diastolic murmur, rubs, gallop GI/Abdominal exam: Present: soft. Absent: tenderness, guarding, rebound Extremities exam: Present: normal inspection, normal capillary refill Neurological exam: Present: alert, normal gait Psychiatric exam: Present: depressed, suicidal ideation. Absent: agitated, anxious, flat affect, manic, homicidal ideation Skin exam: Present: warm, dry, intact, normal color. Absent: rash <Cj Castillo - Last Filed: 08/14/19 00:20> Course Vital Signs 08/13/19 08/14/19 21:25 05:11 Temperature 98.2 F Pulse Rate 96 96 Respiratory 20 20 Rate Blood Pressure 179/107 190/99 O2 Sat by Pulse 97 95 Oximetry Procedures - Restraint - Face to Face Restraint Occurrence 1 Patient's Immediate Situation: Endangers self safety, Endangers staff safety Patient's Reaction to the Intervention: Uncooperative, Angry, Aggressive Patient's Medical & Behavioral Condition: Agitated, Suicidal thoughts Need to Continue or Terminate Restraint or Seclusion: Continue Face to Face Eval of Restraint Date: 08/13/19 Face to Face Eval of Restraint Time: 22:02 <Cj Castillo - Last Filed: 08/14/19 00:20> Medical Decision Making - Lab Data Result diagrams: 08/14/19 00:11 08/14/19 00:11 <[address]elo [address] - Last Filed: 08/14/19 13:34> - Medical Decision Making Patient seen by mental health services and psychiatrist who did negative certificate and recommends discharge. Patient not suicidal. He should reevaluated by myself and is resting comfortably at bedside eating lunch. Patient denies suicidal ideation. Patient requests discharge. (Canelo Lane) - Lab Data Lab Results 08/14/19 08/14/19 08/14/19 Range/Units 00:11 00:11 01:00 WBC 7.3 (3.8-10.6) k/uL RBC 4.14 (3.80-5.40) m/uL Hgb 11.5 (11.4-16.0) gm/dL Hct 35.4 (34.0-46.0) % MCV 85.5 (80.0-100.0) fL MCH 27.7 (25.0-35.0) pg MCHC 32.5 (31.0-37.0) g/dL RDW 13.7 (11.5-15.5) % Plt Count 270 (150-450) k/uL Neutrophils % 73 % Lymphocytes % 16 % Monocytes % 5 % Eosinophils % 2 % Basophils % 0 % Neutrophils # 5.3 (1.3-7.7) k/uL Lymphocytes # 1.2 (1.0-4.8) k/uL Monocytes # 0.4 (0-1.0) k/uL Eosinophils # 0.1 (0-0.7) k/uL Basophils # 0.0 (0-0.2) k/uL Sodium 137 (137-145) mmol/L Potassium 4.2 (3.5-5.1) mmol/L Chloride 101 (98-107) mmol/L Carbon Dioxide 26 (22-30) mmol/L Anion Gap 10 mmol/L BUN 25 H (7-17) mg/dL Creatinine 0.97 (0.52-1.04) mg/dL Est GFR (CKD-EPI)AfAm 75 (>60 ml/min/1.73 sqM) Est GFR (CKD-EPI)NonAf 65 (>60 ml/min/1.73 sqM) Glucose 105 H (74-99) mg/dL Calcium 9.8 (8.4-10.2) mg/dL Urine Opiates Screen Not Detected (NotDetected) Ur Oxycodone Screen Not Detected (NotDetected) Urine Methadone Screen Not Detected (NotDetected) Ur Propoxyphene Screen Not Detected (NotDetected) Ur Barbiturates Screen Not Detected (NotDetected) U Tricyclic Antidepress Not Detected (NotDetected) Ur Phencyclidine Scrn Not Detected (NotDetected) Ur Amphetamines Screen Not Detected (NotDetected) U Methamphetamines Scrn Not Detected (NotDetected) U Benzodiazepines Scrn Detected H (NotDetected) Urine Cocaine Screen Not Detected (NotDetected) U Marijuana (THC) Screen Not Detected (NotDetected) Serum Alcohol <10 mg/dL Disposition Is patient prescribed a controlled substance at d/c from ED?: No - Out of Hospital Transfer - Req. Specs Out of Hospital Transfer - Requested Specifics: Psychiatric Non-ICU <Cj Castillo - Last Filed: 08/14/19 00:20> Is patient prescribed a controlled substance at d/c from ED?: No Time of Disposition: 13:32 <[address] - Last Filed: 08/14/19 13:34> Clinical Impression: Mood disorder, Depression Disposition: HOME SELF-CARE Condition: Stable Referrals: Beau Jade MD [Primary Care Provider] - 1-2 days
[2019-08-13] MEDS ORDERED: traZODone HCL 50 MG TAB PO ONE (23:00)
[2019-08-13] MEDS ORDERED: rOPINIRole HCL 4 MG TABLET PO ONE (23:00)
[2019-08-13] MEDS ORDERED: NYSTATIN 100,000 UNIT/GM POWD 15 GM TOPICAL SCH (23:45)
[2019-08-14 00:35] LABS: Basophils % (A) 0 %; Eosinophils # (A) 0.1 k/uL (0-0.7); Eosinophils % (A) 2 %; HCT 35.4 % (34.0-46.0); HGB 11.5 gm/dL (11.4-16.0); Lymphocytes # (A) 1.2 k/uL (1.0-4.8); Lymphocytes % (A) 16 %; MCH 27.7 pg (25.0-35.0); MCHC 32.5 g/dL (31.0-37.0); MCV 85.5 fL (80.0-100.0); Mean Platelet Volume 7.7; Monocytes # (A) 0.4 k/uL (0-1.0); Monocytes % (A) 5 %; Neutrophils # (A) 5.3 k/uL (1.3-7.7); Neutrophils % (A) 73 %; Platelet Count 270 k/uL (150-450); RBC 4.14 m/uL (3.80-5.40); RDW 13.7 % (11.5-15.5); WBC 7.3 k/uL (3.8-10.6)
[2019-08-14 00:38] LABS: African American GFR (CKD) 75 (>60 ml/min/1.73 sqM); Alcohol <10 mg/dL; Anion Gap 10 mmol/L; Blood Urea Nitrogen 25 mg/dL (7-17); Calcium 9.8 mg/dL (8.4-10.2); Carbon Dioxide 26 mmol/L (22-30); Chloride 101 mmol/L (98-107); Glucose 105 mg/dL (74-99); Non-African American GFR(CKD) 65 (>60 ml/min/1.73 sqM); Potassium 4.2 mmol/L (3.5-5.1); Sodium 137 mmol/L (137-145)
[2019-08-14 01:38] LABS: Amphetamine Screen,Urine Not Detected (NotDetected); Barbiturate Screen,Urine Not Detected (NotDetected); Benzodiazepines Screen,Urine Detected (NotDetected); Cocaine Screen,Urine Not Detected (NotDetected); Methadone Screen, Urine Not Detected (NotDetected); Opiate Screen,Urine Not Detected (NotDetected); Oxycodone Screen, Urine Not Detected (NotDetected); Phencyclidine Screen,Urine Not Detected (NotDetected); Tricyclic Antidepressant,Urine Not Detected (NotDetected); Urn Cannabinoid Scrn Not Detected (NotDetected)
[2019-08-14] MEDS ORDERED: LORazepam 2 MG/ML INJ IM STA ×2 (03:41→05:03)
[2019-08-14] MEDS ORDERED: ZIPRASIDONE 20 MG VIAL IM STA ×2 (03:41→10:51)
[2019-08-14] MEDS ORDERED: diphenhydrAMINE 50 MG/ML 1 ML VIAL IM STA (05:03)
[2019-08-14] MEDS ORDERED: rOPINIRole HCL 4 MG TABLET PO STA (07:55)
[2019-08-14] MEDS ORDERED: hydrOXYzine PAMOATE 25 MG CAP PO PRN (12:07)
[2019-08-14] MEDS ORDERED: ALBUTEROL INHALER 60 PUFF/8 GM INHALER INHALATION PRN (12:07)
[2019-08-14] MEDS ORDERED: ACETAMINOPHEN TAB 325 MG TAB PO PRN (12:07)
[2019-08-14] MEDS ORDERED: IPRATROPIUM-ALBUTEROL 3 ML NEB INHALATION PRN (12:07)
[2019-08-14] MEDS ORDERED: ALPRAZolam 0.5 MG TAB PO PRN (12:07)
[2019-08-14] MEDS ORDERED: ONDANSETRON 4 MG TAB PO PRN (12:07)
[2019-08-14] MEDS ORDERED: POTASSIUM CHLORIDE ER 20 MEQ TAB.ER PO SCH (12:15)
[2019-08-14] MEDS ORDERED: LEVOTHYROXINE 137 MCG TAB PO SCH (12:15)
[2019-08-14] MEDS ORDERED: ALLOPURINOL 100 MG TAB PO SCH (12:15)
[2019-08-14] MEDS ORDERED: FERROUS SULFATE 325 MG TAB PO SCH (12:15)
[2019-08-14] MEDS ORDERED: MONTELUKAST 10 MG TAB PO SCH (12:15)
[2019-08-14] MEDS ORDERED: MELOXICAM 7.5 MG TAB PO SCH (12:15)
[2019-08-14] MEDS ORDERED: RIVAROXABAN 20 MG TAB PO SCH (12:15)
[2019-08-14] MEDS ORDERED: TORSEMIDE 20 MG TAB PO SCH (13:30)
[2019-08-14] MEDS ORDERED: PANTOPRAZOLE 40 MG TABLET PO SCH (13:30)
[2019-08-14 13:43] VITALS: BP 187/89; PULSE 91; RESP 18; TEMP 98.7
[2019-08-14] MEDS ORDERED: GABAPENTIN 300 MG CAP PO SCH ×2 (16:00→21:00)
[2019-08-14] MEDS ORDERED: CARVEDILOL 12.5 MG TAB PO SCH (17:30)
[2019-08-14] MEDS ORDERED: metFORMIN 500 MG TAB PO SCH (17:30)
[2019-08-14] MEDS ORDERED: rOPINIRole HCL 4 MG TABLET PO SCH (21:00)
[2019-08-14] MEDS ORDERED: DULoxetine HCL 60 MG CAPSULE.DR PO SCH (21:00)
[2019-08-14] MEDS ORDERED: CARIPRAZINE HCL 6 MG PO SCH (21:00)
[2019-08-14] MEDS ORDERED: traZODone HCL 100 MG TAB PO SCH (21:00)
[2019-08-15] MEDS ORDERED: GLIMEPIRIDE 2 MG TAB PO SCH (07:30)
[2019-08-15] MEDS ORDERED: TORSEMIDE 20 MG TAB PO SCH (09:00)
== END 2019-08-14 13:42 | disposition home or self-care (01) ==
LOC: EC 21:14
DX: F32.9 Major depressive disorder, single episode, unspecified (principal); I11.0 Hypertensive heart disease with heart failure; I50.9 Heart failure, unspecified; J44.9 Chronic obstructive pulmonary disease, unspecified; E11.9 Type 2 diabetes mellitus without complications; K21.9 Gastro-esophageal reflux disease without esophagitis; E03.9 Hypothyroidism, unspecified; F41.0 Panic disorder [episodic paroxysmal anxiety]; M19.90 Unspecified osteoarthritis, unspecified site; F43.10 Post-traumatic stress disorder, unspecified; Z79.02 Long term (current) use of antithrombotics/antiplatelets; Z79.890 Hormone replacement therapy; Z79.84 Long term (current) use of oral hypoglycemic drugs; Z79.899 Other long term (current) drug therapy; Z88.0 Allergy status to penicillin; Z88.2 Allergy status to sulfonamides; Z88.8 Allergy status to other drugs, medicaments and biological substances; Z91.048 Other nonmedicinal substance allergy status; Z88.7 Allergy status to serum and vaccine; Z98.84 Bariatric surgery status; Z96.651 Presence of right artificial knee joint; Z86.711 Personal history of pulmonary embolism
CPT/HCPCS: 99285 ×2; 96372 ×5; 82075; 99284; 36415; 94640; 80048; 85025; 80306; G0480; J2060 ×2; J1200; J3486; 80320

== ENCOUNTER 2019-08-30 14:51 | Emergency (ER) | payer MEDICARE, OTHER ==
[2019-08-30 15:02] VITALS: BP 123/68; PULSE 70; RESP 20; TEMP 98.1
--- NOTE | 2019-08-30 15:05 | ED ---
General Adult HPI - General Stated complaint: chest pain Time Seen by Provider: 08/30/19 14:53 Source: patient, RN notes reviewed, old records reviewed - History of Present Illness Initial comments: 59-year-old female presenting for evaluation of left-sided chest pain. Patient reports pain in her left axilla which is been present for approximately one hour. She's had a cough and URI symptoms for the past several days. She states that there is upper respiratory infection at the home where she resides. No central radiating chest pain. No recorded fever. No lower extremity pain or swelling. No dyspnea. No abdominal pain nausea vomiting. - Related Data Home Medications Medication Instructions Recorded Confirmed Carvedilol [Coreg] 25 mg PO BID 06/07/17 08/14/19 Levothyroxine Sodium [Synthroid] 137 mcg PO DAILY 10/20/17 08/14/19 Montelukast [Singulair] 10 mg PO DAILY 06/28/18 08/14/19 DULoxetine HCL [Cymbalta] 60 mg PO BID 08/15/18 08/14/19 Miconazole 2% Cream [Monistat-Derm] 1 applic TOPICAL TID 11/05/18 08/14/19 rOPINIRole HCL [Requip] 4 mg PO BID 11/18/18 08/14/19 Torsemide [Demadex] 50 mg PO SUTUTHSA 12/15/18 08/14/19 Torsemide [Demadex] 100 mg PO MOWEFR 12/15/18 08/14/19 Potassium Chloride [Klor-Con 20] 20 meq PO DAILY 02/26/19 08/14/19 Diclofenac Sodium [Voltaren Gel] 1 applic TOPICAL BID PRN 04/22/19 08/14/19 Loperamide [Imodium] 2 mg PO QID PRN 04/22/19 08/14/19 Mometasone Cream 0.1% 1 applic TOPICAL DAILY 04/22/19 08/14/19 Ondansetron HCl [Zofran] 4 mg PO BID PRN 04/22/19 08/14/19 metFORMIN HCL [Glucophage] 500 mg PO BID 05/18/19 08/14/19 Vit C/E/Zn/Coppr/Lutein/Zeaxan 1 cap PO DAILY 05/24/19 08/14/19 [Preservision Areds 2 Softgel] hydrOXYzine PAMOATE [Vistaril] 25 mg PO TID PRN 06/10/19 08/14/19 ALPRAZolam [Xanax] 0.5 mg PO BID PRN 08/14/19 08/14/19 Acetaminophen [Tylenol 8 Hour] 650 mg PO Q8H PRN 08/14/19 08/14/19 Albuterol Sulfate [Ventolin HFA] 1 - 2 puff INHALATION RT-Q6H PRN 08/14/19 08/14/19 Allopurinol [Zyloprim] 100 mg PO DAILY 08/14/19 08/14/19 Cariprazine HCl [Vraylar] 6 mg PO HS 08/14/19 08/14/19 Celecoxib [CeleBREX] 400 mg PO DAILY 08/14/19 08/14/19 Cholecalciferol [Vitamin D3 (25 5,000 unit PO DAILY 08/14/19 08/14/19 Mcg = 1000 Iu)] Cyanocobalamin (Vitamin B-12) 1,000 mcg PO DAILY 08/14/19 08/14/19 [Vitamin B-12] Ferrous Sulfate [Feosol] 325 mg PO BID 08/14/19 08/14/19 Gabapentin 600 mg PO TID 08/14/19 08/14/19 Ipratropium-Albuterol Nebulize 3 ml INHALATION RT-QID PRN 08/14/19 08/14/19 [Duoneb 0.5 mg-3 mg/3 ml Soln] Lactobacillus Acidophilus 1 tab PO BID 08/14/19 08/14/19 [Acidophilus] Loratadine [Claritin] 10 mg PO DAILY 08/14/19 08/14/19 Magnesium Oxide [Mag-Ox] 400 mg PO DAILY 08/14/19 08/14/19 Multivitamins, Thera [Multivitamin 1 tab PO DAILY 08/14/19 08/14/19 (formulary)] Omeprazole 20 mg PO DAILY 08/14/19 08/14/19 Vitamin B-12/Folic Acid 1mg 1 tab PO DAILY 08/14/19 08/14/19 traZODone HCL [Desyrel] 100 mg PO HS 08/14/19 08/14/19 Previous Rx's Medication Instructions Recorded Rivaroxaban [Xarelto] 20 mg PO DAILY 90 Days #90 tab 11/18/17 Allergies Allergy/AdvReac Type Severity Reaction Status Date / Time buspirone [From BuSpar] Allergy Unknown Verified 08/30/19 15:03 haloperidol [From Haldol] Allergy Swelling Verified 08/30/19 15:03 iodine Allergy Swelling Verified 08/30/19 15:03 Penicillins Allergy Swelling Verified 08/30/19 15:03 prochlorperazine Allergy Rash/Hives Verified 08/30/19 15:03 Sulfa (Sulfonamide Allergy Rash/Hives Verified 08/30/19 15:03 Antibiotics) Tetanus Vaccines and Toxoid Allergy Rash/Hives Verified 08/30/19 15:03 [Tetanus Vaccines & Toxoid] trifluoperazine HCl Allergy Unknown Verified 08/30/19 15:03 [From Stelazine] Review of Systems ROS Statement: Those systems with pertinent positive or pertinent negative responses have been documented in the HPI. ROS Other: All systems not noted in ROS Statement are negative. Past Medical History Past Medical History: Asthma, Heart Failure, COPD, Diabetes Mellitus, GERD/Reflux, Hyperlipidemia, Hypertension, Musculoskeletal Disorder, Osteoarthritis (OA), Pneumonia, Pulmonary Embolus (PE), Thyroid Disorder Additional Past Medical History / Comment(s): chronic low back pain, herniated discs, RLS, leg edema, anemia, gout bilateral feet, hypothyroid, UTIs, hx cellulitis, cataracts, macular degeneration History of Any Multi-Drug Resistant Organisms: None Reported Past Surgical History: Bariatric Surgery, Heart Catheterization, Hernia Repair, Orthopedic Surgery Additional Past Surgical History / Comment(s): Total Right knee replacement, 3 abdominal hernia repairs, left hip repair d/t fracture, gastric bypass/revision, colonoscopy. Past Anesthesia/Blood Transfusion Reactions: No Reported Reaction Past Psychological History: Anxiety, Bipolar, Depression, Panic Disorder, PTSD Smoking Status: Never smoker Past Alcohol Use History: Occasional Past Drug Use History: None Reported - Past Family History Mother Family Medical History: Cancer Additional Family Medical History / Comment(s): lung cancer Father Family Medical History: Diabetes Mellitus Additional Family Medical History / Comment(s): "my dad from a blood clot that traveled from his leg to his lung and also caused a heart attack." Brother(s) Family Medical History: Diabetes Mellitus Sister(s) Additional Family Medical History / Comment(s): "her heart races too fast" General Exam General appearance: alert, in no apparent distress Head exam: Present: atraumatic, normocephalic Eye exam: Present: normal appearance, PERRL ENT exam: Present: normal exam Neck exam: Present: normal inspection. Absent: tenderness, meningismus Respiratory exam: Present: chest wall tenderness (Left lateral tenderness in the axilla, no signs of infection, no abscess, no skin changes). Absent: respiratory distress Cardiovascular Exam: Present: regular rate, normal rhythm GI/Abdominal exam: Present: soft. Absent: distended, tenderness, guarding Extremities exam: Present: normal capillary refill. Absent: calf tenderness Neurological exam: Present: alert. Absent: motor sensory deficit Psychiatric exam: Present: normal affect, normal mood Skin exam: Present: warm, dry, intact. Absent: cyanosis, diaphoretic Course Vital Signs 08/30/19 14:59 Temperature 98.1 F Pulse Rate 70 Respiratory 20 Rate Blood Pressure 123/68 O2 Sat by Pulse 98 Oximetry EKG Findings - EKG Comments: EKG Findings:: EKG: Normal sinus rhythm, left atrial enlargement, rate 72, SC interval 134, QRS duration 90, QTC 424, no ST segment elevation or depression Medical Decision Making - Medical Decision Making 59-year-old female presenting for evaluation of reproducible left-sided chest pain. Patient has pain in the left axilla along the lateral chest wall. This is reproducible. Vital signs are stable. She had some URI symptoms and mild cough, x-ray was obtained, no focal pneumonia, no fever, no change from recent chest x-ray. EKG is normal sinus rhythm with no ischemic changes. She will be discharged home. Tylenol Motrin for pain. Return with worsening or changing symptoms. Disposition Clinical Impression: Chest wall pain Disposition: HOME SELF-CARE Condition: Fair Instructions (If sedation given, give patient instructions): Chest Pain (ED) Is patient prescribed a controlled substance at d/c from ED?: No Referrals: Beau Jade MD [Primary Care Provider] - 1-2 days Time of Disposition: 15:37
--- NOTE | 2019-08-30 15:31 | XR ---
EXAMINATION TYPE: XR chest 2V DATE OF EXAM: 08/30/2019 COMPARISON: 06/28/2019 HISTORY: Chest pain TECHNIQUE: FINDINGS: Heart is normal. Lungs are clear of consolidation. Costophrenic angles are clear. Bony thor ax is intact. IMPRESSION: No active cardiopulmonary disease. Normal heart. No change.
== END 2019-08-30 15:50 | disposition home or self-care (01) ==
LOC: EC 14:51
DX: R07.89 Other chest pain (principal); R05 Cough; J44.9 Chronic obstructive pulmonary disease, unspecified; I11.0 Hypertensive heart disease with heart failure; I50.9 Heart failure, unspecified; E11.9 Type 2 diabetes mellitus without complications; E03.9 Hypothyroidism, unspecified; E78.5 Hyperlipidemia, unspecified; F41.0 Panic disorder [episodic paroxysmal anxiety]; F31.9 Bipolar disorder, unspecified; Z79.02 Long term (current) use of antithrombotics/antiplatelets; Z79.890 Hormone replacement therapy; Z79.84 Long term (current) use of oral hypoglycemic drugs; Z79.899 Other long term (current) drug therapy; Z88.8 Allergy status to other drugs, medicaments and biological substances; Z91.048 Other nonmedicinal substance allergy status; Z88.0 Allergy status to penicillin; Z88.2 Allergy status to sulfonamides; Z88.1 Allergy status to other antibiotic agents; Z88.7 Allergy status to serum and vaccine; Z86.711 Personal history of pulmonary embolism; Z98.84 Bariatric surgery status; Z96.651 Presence of right artificial knee joint
CPT/HCPCS: 71046; 93005; 99285

== ENCOUNTER 2019-10-14 11:52 | Emergency (ER) | payer MEDICARE, OTHER ==
[2019-10-14] MEDS ORDERED: SODIUM CHLORIDE 0.9% 500 ML 500 ML IV STA (12:03)
[2019-10-14] MEDS ORDERED: MORPHINE SULFATE 2 MG/ML SYRINGE IVP STA (12:23)
[2019-10-14 12:49] LABS: HCT 38.1 % (34.0-46.0); HGB 12.4 gm/dL (11.4-16.0); MCH 28.3 pg (25.0-35.0); MCHC 32.4 g/dL (31.0-37.0); MCV 87.3 fL (80.0-100.0); Mean Platelet Volume 7.9; Platelet Count 326 k/uL (150-450); RBC 4.37 m/uL (3.80-5.40); RDW 14.2 % (11.5-15.5); WBC 6.6 k/uL (3.8-10.6)
[2019-10-14 12:56] LABS: Albumin 4.5 g/dL (3.5-5.0); Calcium 10.1 mg/dL (8.4-10.2); Magnesium 1.9 mg/dL (1.6-2.3); Phosphorus 4.5 mg/dL (2.5-4.5); Potassium 4.7 mmol/L (3.5-5.1); Total Bilirubin 0.6 mg/dL (0.2-1.3); Total Protein 7.2 g/dL (6.3-8.2)
[2019-10-14 13:02] LABS: INR 0.9 (<1.2); Partial Thromboplastin Time 24.1 sec (22.0-30.0); Prothrombin Time 9.7 sec (9.0-12.0)
[2019-10-14 13:07] LABS: Appearance,Urine Clear (Clear); Bilirubin,Urine Negative (Negative); Blood,Urine Negative (Negative); Color,Urine Yellow; Glucose,Urine (UA) Negative (Negative); Ketones,Urine Negative (Negative); Leukocyte Esterase,Urine Negative (Negative); Nitrite,Urine Negative (Negative); Protein,Urine Negative (Negative); Specific Gravity,Urine 1.007 (1.001-1.035); Urobilinogen,Urine <2.0 mg/dL (<2.0)
[2019-10-14] MEDS ORDERED: diphenhydrAMINE 50 MG/ML 1 ML VIAL IVP STA (13:07)
[2019-10-14] MEDS ORDERED: SODIUM CHLORIDE 0.9% 500 ML 500 ML IV ONE (13:10)
[2019-10-14] MEDS ORDERED: SODIUM CHLORIDE 0.9% 1,000 ML IV SCH (13:15)
[2019-10-14 13:25] LABS: Lymphocytes # (M) 1.65 k/uL (1.0-4.8); Monocytes # (M) 0.26 k/uL (0-1.0); Neutrophils # (M) 4.49 k/uL (1.3-7.7); Neutrophils % (M) 68 %; Nucleated Red Blood Cells 0 /100 WBC (0-0); Total Cells Counted 100
--- NOTE | 2019-10-14 13:39 | CT ---
EXAMINATION TYPE: CT brain wo con DATE OF EXAM: 10/14/2019 COMPARISON: 02/26/2019 HISTORY: Headache CT DLP: 1143.4 mGycm. Automated Exposure Control for Dose Reduction was Utilized. TECHNIQUE: CT scan of the head is performed without contrast. FINDINGS: There is no acute intracranial hemorrhage, mass effect, or midline shift identified. Athe rosclerosis of the right vertebral artery is incidentally seen. No suspicious extra-axial fluid. The ventricles and sulci are within normal limits in size. The globes are intact and the visualized sinu ses are clear. IMPRESSION: No acute intracranial hemorrhage, mass effect, or midline shift is seen.
--- NOTE | 2019-10-14 13:45 | XR ---
EXAMINATION TYPE: XR chest 2V DATE OF EXAM: 10/14/2019 COMPARISON: 08/30/2019 TECHNIQUE: PA and lateral views submitted. HISTORY: Weakness FINDINGS: Exam markedly limited due to overlying artifact and poor inspiration. Heart is enlarged and there is a coarsened interstitial pattern. Assessment for pneumothorax limited. No obvious pneumothorax seen. Prominent interstitial markings noted. Assessment for pneumonia limite d. Aorta prominent in size and there is degenerative change of the spine. IMPRESSION: 1. Markedly Limited exam due to overlying artifact. Correlate for mild venous congestion or interstit ial pneumonitis. 2. Severe cardiomegaly. 3. Density overlying the left heart border on the AP view may be related to soft tissue artifact rath er than within the lung. Follow-up chest x-ray could BE obtained on a short-term basis.
--- NOTE | 2019-10-14 14:34 | ED ---
Weakness HPI - General Chief complaint: Weakness Stated complaint: weakness/SOB Time Seen by Provider: 10/14/19 11:54 Source: patient, EMS Mode of arrival: EMS Limitations: physical limitation - History of Present Illness Initial comments: 59-year-old female presenting today for chief complaint of low glucose, lightheaded, black out and headache. Patient states she woke up with a slight headache. She denies this being the worse headache of her life or sudden onset. She states it is dull aching. Patient denies any nausea or vomiting or neck pain but states that she blacked out and thinks she had possible episode of passing out she states that EMS was called and she was found have low blood glucose at 55. Patient returned to her baseline after receiving when she was. Patient states she now is slightly shaky otherwise no chest pain, back pain, leg swelling. She states headache is still slightly there. Patient states that she has not had symptoms until her sugar was low denies any symptoms earlier in the week. Patient appears well on arrival no signs of acute distress. - Related Data Home Medications Medication Instructions Recorded Confirmed Carvedilol [Coreg] 25 mg PO BID 06/07/17 08/14/19 Levothyroxine Sodium [Synthroid] 137 mcg PO DAILY 10/20/17 08/14/19 Montelukast [Singulair] 10 mg PO DAILY 06/28/18 08/14/19 DULoxetine HCL [Cymbalta] 60 mg PO BID 08/15/18 08/14/19 Miconazole 2% Cream [Monistat-Derm] 1 applic TOPICAL TID 11/05/18 08/14/19 rOPINIRole HCL [Requip] 4 mg PO BID 11/18/18 08/14/19 Torsemide [Demadex] 50 mg PO SUTUTHSA 12/15/18 08/14/19 Torsemide [Demadex] 100 mg PO MOWEFR 12/15/18 08/14/19 Potassium Chloride [Klor-Con 20] 20 meq PO DAILY 02/26/19 08/14/19 Diclofenac Sodium [Voltaren Gel] 1 applic TOPICAL BID PRN 04/22/19 08/14/19 Loperamide [Imodium] 2 mg PO QID PRN 04/22/19 08/14/19 Mometasone Cream 0.1% 1 applic TOPICAL DAILY 04/22/19 08/14/19 Ondansetron HCl [Zofran] 4 mg PO BID PRN 04/22/19 08/14/19 metFORMIN HCL [Glucophage] 500 mg PO BID 05/18/19 08/14/19 Vit C/E/Zn/Coppr/Lutein/Zeaxan 1 cap PO DAILY 05/24/19 08/14/19 [Preservision Areds 2 Softgel] hydrOXYzine PAMOATE [Vistaril] 25 mg PO TID PRN 06/10/19 08/14/19 ALPRAZolam [Xanax] 0.5 mg PO BID PRN 08/14/19 08/14/19 Acetaminophen [Tylenol 8 Hour] 650 mg PO Q8H PRN 08/14/19 08/14/19 Albuterol Sulfate [Ventolin HFA] 1 - 2 puff INHALATION RT-Q6H PRN 08/14/19 08/14/19 Allopurinol [Zyloprim] 100 mg PO DAILY 08/14/19 08/14/19 Cariprazine HCl [Vraylar] 6 mg PO HS 08/14/19 08/14/19 Celecoxib [CeleBREX] 400 mg PO DAILY 08/14/19 08/14/19 Cholecalciferol [Vitamin D3 (25 5,000 unit PO DAILY 08/14/19 08/14/19 Mcg = 1000 Iu)] Cyanocobalamin (Vitamin B-12) 1,000 mcg PO DAILY 08/14/19 08/14/19 [Vitamin B-12] Ferrous Sulfate [Feosol] 325 mg PO BID 08/14/19 08/14/19 Gabapentin 600 mg PO TID 08/14/19 08/14/19 Ipratropium-Albuterol Nebulize 3 ml INHALATION RT-QID PRN 08/14/19 08/14/19 [Duoneb 0.5 mg-3 mg/3 ml Soln] Lactobacillus Acidophilus 1 tab PO BID 08/14/19 08/14/19 [Acidophilus] Loratadine [Claritin] 10 mg PO DAILY 08/14/19 08/14/19 Magnesium Oxide [Mag-Ox] 400 mg PO DAILY 08/14/19 08/14/19 Multivitamins, Thera [Multivitamin 1 tab PO DAILY 08/14/19 08/14/19 (formulary)] Omeprazole 20 mg PO DAILY 08/14/19 08/14/19 Vitamin B-12/Folic Acid 1mg 1 tab PO DAILY 08/14/19 08/14/19 traZODone HCL [Desyrel] 100 mg PO HS 08/14/19 08/14/19 Previous Rx's Medication Instructions Recorded Rivaroxaban [Xarelto] 20 mg PO DAILY 90 Days #90 tab 11/18/17 Nystatin 100,000 Unit/gm Powd 1 applic TOPICAL BID 7 Days #15 gm 10/14/19 [Mycostatin Powder] Allergies Allergy/AdvReac Type Severity Reaction Status Date / Time buspirone [From BuSpar] Allergy Unknown Verified 08/30/19 15:03 haloperidol [From Haldol] Allergy Swelling Verified 08/30/19 15:03 iodine Allergy Swelling Verified 08/30/19 15:03 Penicillins Allergy Swelling Verified 08/30/19 15:03 prochlorperazine Allergy Rash/Hives Verified 08/30/19 15:03 Sulfa (Sulfonamide Allergy Rash/Hives Verified 08/30/19 15:03 Antibiotics) Tetanus Vaccines and Toxoid Allergy Rash/Hives Verified 08/30/19 15:03 [Tetanus Vaccines & Toxoid] trifluoperazine HCl Allergy Unknown Verified 08/30/19 15:03 [From Stelazine] Review of Systems ROS Statement: Those systems with pertinent positive or pertinent negative responses have been documented in the HPI. ROS Other: All systems not noted in ROS Statement are negative. Past Medical History Past Medical History: Asthma, Heart Failure, COPD, Diabetes Mellitus, GERD/Reflux, Hyperlipidemia, Hypertension, Musculoskeletal Disorder, Osteoarthritis (OA), Pneumonia, Pulmonary Embolus (PE), Thyroid Disorder Additional Past Medical History / Comment(s): chronic low back pain, herniated discs, RLS, leg edema, anemia, gout bilateral feet, hypothyroid, UTIs, hx cellulitis, cataracts, macular degeneration History of Any Multi-Drug Resistant Organisms: None Reported Past Surgical History: Bariatric Surgery, Heart Catheterization, Hernia Repair, Orthopedic Surgery Additional Past Surgical History / Comment(s): Total Right knee replacement, 3 abdominal hernia repairs, left hip repair d/t fracture, gastric bypass/revision, colonoscopy. Past Anesthesia/Blood Transfusion Reactions: No Reported Reaction Past Psychological History: Anxiety, Bipolar, Depression, Panic Disorder, PTSD Smoking Status: Never smoker Past Alcohol Use History: Occasional Past Drug Use History: None Reported - Past Family History Mother Family Medical History: Cancer Additional Family Medical History / Comment(s): lung cancer Father Family Medical History: Diabetes Mellitus Additional Family Medical History / Comment(s): "my dad from a blood clot that traveled from his leg to his lung and also caused a heart attack." Brother(s) Family Medical History: Diabetes Mellitus Sister(s) Additional Family Medical History / Comment(s): "her heart races too fast" General Exam - General Exam Comments Initial Comments: General: The patient is awake and alert, in no distress, and does not appear acutely ill. Eye: +3 mm pupils are equal, round and reactive to light, extra-ocular movements are intact. No nystagmus. There is normal conjunctiva bilaterally. No signs of icterus. Ears, nose, mouth and throat: There are moist mucous membranes and no oral lesions. Neck: The neck is supple, there is no tenderness or JVD. Cardiovascular: There is a regular rate and rhythm. Murmur audible. No rub or gallop is appreciated. Respiratory: Lungs are clear to auscultation, respirations are non-labored, breath sounds are equal. No wheezes, stridor, rales, or rhonchi. Gastrointestinal: Soft, non-distended, non-tender abdomen without masses or organomegaly noted. There is no rebound or guarding present. Musculoskeletal: Normal ROM, no tenderness. Strength 5/5. Sensation intact. Pulses equal bilaterally 2+. Neurological: A&O x 3. CN II-XII intact grossly, There are no obvious motor or sensory deficits. Coordination appears grossly intact. Speech is normal. Skin: Skin is warm and dry and no rashes or lesions are noted. No LE edema. Psychiatric: Cooperative, appropriate mood & affect, normal judgment. Limitations: physical limitation Course Vital Signs 10/14/19 10/14/19 10/14/19 12:00 14:15 15:37 Temperature 97.6 F 97.5 F L Pulse Rate 66 60 78 Respiratory 16 16 18 Rate Blood Pressure 131/62 119/71 116/61 O2 Sat by Pulse 99 100 98 Oximetry EKG Findings - EKG Comments: EKG Findings:: Ventricular rate 62 bpm, VA interval 148 ms, QRS duration 98 ms, QT/QTC 4:30/436 ms. This is normal sinus no ST elevation or depression. Medical Decision Making - Medical Decision Making 59-year-old female presenting today for chief complaint of low blood glucose and headache. Patient states that she had low blood glucose reading and felt like she blacked out at her [facility] home. That is she is brought to the emergency department. Patient states she still has a slight headache denies this being the worst headache of her life or sudden onset. Patient states she has headaches in the past however this feels slightly different. She is not sure if this is related to the sugars. CT brain (-) No focal neurological deficits. Patient lungs clear, EKG no acute findings. Glucose 84, repeat 84. Patient given juice. Patient offered admission for observation and serial blood glucose testing but states she would like to go home and she is feeling much better. George denis was discharged appearing well wiith RX for glucometer strips and her nystatin powder as requested. Discussed case with Dr. Lane who recommends discharge with PCP f/u. - Lab Data Result diagrams: 10/14/19 12:27 10/14/19 12:27 Lab Results 10/14/19 10/14/19 10/14/19 Range/Units 12:27 12:27 12:27 WBC 6.6 (3.8-10.6) k/uL RBC 4.37 (3.80-5.40) m/uL Hgb 12.4 (11.4-16.0) gm/dL Hct 38.1 (34.0-46.0) % MCV 87.3 (80.0-100.0) fL MCH 28.3 (25.0-35.0) pg MCHC 32.4 (31.0-37.0) g/dL RDW 14.2 (11.5-15.5) % Plt Count 326 (150-450) k/uL Neutrophils % (Manual) 68 % Lymphocytes % (Manual) 25 % Monocytes % (Manual) 4 % Eosinophils % (Manual) 3 % Neutrophils # (Manual) 4.49 (1.3-7.7) k/uL Lymphocytes # (Manual) 1.65 (1.0-4.8) k/uL Monocytes # (Manual) 0.26 (0-1.0) k/uL Eosinophils # (Manual) 0.20 (0-0.7) k/uL Nucleated RBCs 0 (0-0) /100 WBC Manual Slide Review Performed PT (9.0-12.0) sec INR (<1.2) APTT (22.0-30.0) sec Sodium 135 L (137-145) mmol/L Potassium 4.7 (3.5-5.1) mmol/L Chloride 97 L (98-107) mmol/L Carbon Dioxide 30 (22-30) mmol/L Anion Gap 8 mmol/L BUN 40 H (7-17) mg/dL Creatinine 1.36 H (0.52-1.04) mg/dL Est GFR (CKD-EPI)AfAm 50 (>60 ml/min/1.73 sqM) Est GFR (CKD-EPI)NonAf 43 (>60 ml/min/1.73 sqM) Glucose 86 (74-99) mg/dL POC Glucose (mg/dL) (75-99) mg/dL POC Glu Communication Analyst ID Lactic Ac Sepsis Rflx Plasma Lactic Acid Brock 2.1 H* (0.7-2.0) mmol/L Calcium 10.1 (8.4-10.2) mg/dL Phosphorus 4.5 (2.5-4.5) mg/dL Magnesium 1.9 (1.6-2.3) mg/dL Total Bilirubin 0.6 (0.2-1.3) mg/dL AST 30 (14-36) U/L ALT 18 (4-34) U/L Alkaline Phosphatase 107 (38-126) U/L Troponin I (0.000-0.034) ng/mL NT-Pro-B Natriuret Pep pg/mL Total Protein 7.2 (6.3-8.2) g/dL Albumin 4.5 (3.5-5.0) g/dL Urine Color Urine Appearance (Clear) Urine pH (5.0-8.0) Ur Specific [place] (1.001-1.035) Urine Protein (Negative) Urine Glucose (UA) (Negative) Urine Ketones (Negative) Urine Blood (Negative) Urine Nitrite (Negative) Urine Bilirubin (Negative) Urine Urobilinogen (<2.0) mg/dL Ur Leukocyte Esterase (Negative) 02/12/20 02/12/20 02/12/20 Range/Units 12:27 12:27 12:27 WBC (3.8-10.6) k/uL RBC (3.80-5.40) m/uL Hgb (11.4-16.0) gm/dL Hct (34.0-46.0) % MCV (80.0-100.0) fL MCH (25.0-35.0) pg MCHC (31.0-37.0) g/dL RDW (11.5-15.5) % Plt Count (150-450) k/uL Neutrophils % (Manual) % Lymphocytes % (Manual) % Monocytes % (Manual) % Eosinophils % (Manual) % Neutrophils # (Manual) (1.3-7.7) k/uL Lymphocytes # (Manual) (1.0-4.8) k/uL Monocytes # (Manual) (0-1.0) k/uL Eosinophils # (Manual) (0-0.7) k/uL Nucleated RBCs (0-0) /100 WBC Manual Slide Review PT 9.7 (9.0-12.0) sec INR 0.9 (<1.2) APTT 24.1 (22.0-30.0) sec Sodium (137-145) mmol/L Potassium (3.5-5.1) mmol/L Chloride (98-107) mmol/L Carbon Dioxide (22-30) mmol/L Anion Gap mmol/L BUN (7-17) mg/dL Creatinine (0.52-1.04) mg/dL Est GFR (CKD-EPI)AfAm (>60 ml/min/1.73 sqM) Est GFR (CKD-EPI)NonAf (>60 ml/min/1.73 sqM) Glucose (74-99) mg/dL POC Glucose (mg/dL) (75-99) mg/dL POC Glu Communication Analyst ID Lactic Ac Sepsis Rflx Plasma Lactic Acid Brock (0.7-2.0) mmol/L Calcium (8.4-10.2) mg/dL Phosphorus (2.5-4.5) mg/dL Magnesium (1.6-2.3) mg/dL Total Bilirubin (0.2-1.3) mg/dL AST (14-36) U/L ALT (4-34) U/L Alkaline Phosphatase (38-126) U/L Troponin I <0.012 (0.000-0.034) ng/mL NT-Pro-B Natriuret Pep 215 pg/mL Total Protein (6.3-8.2) g/dL Albumin (3.5-5.0) g/dL Urine Color Urine Appearance (Clear) Urine pH (5.0-8.0) Ur Specific [place] (1.001-1.035) Urine Protein (Negative) Urine Glucose (UA) (Negative) Urine Ketones (Negative) Urine Blood (Negative) Urine Nitrite (Negative) Urine Bilirubin (Negative) Urine Urobilinogen (<2.0) mg/dL Ur Leukocyte Esterase (Negative) 10/14/19 10/14/19 10/14/19 Range/Units 12:53 13:09 15:44 WBC (3.8-10.6) k/uL RBC (3.80-5.40) m/uL Hgb (11.4-16.0) gm/dL Hct (34.0-46.0) % MCV (80.0-100.0) fL MCH (25.0-35.0) pg MCHC (31.0-37.0) g/dL RDW (11.5-15.5) % Plt Count (150-450) k/uL Neutrophils % (Manual) % Lymphocytes % (Manual) % Monocytes % (Manual) % Eosinophils % (Manual) % Neutrophils # (Manual) (1.3-7.7) k/uL Lymphocytes # (Manual) (1.0-4.8) k/uL Monocytes # (Manual) (0-1.0) k/uL Eosinophils # (Manual) (0-0.7) k/uL Nucleated RBCs (0-0) /100 WBC Manual Slide Review PT (9.0-12.0) sec INR (<1.2) APTT (22.0-30.0) sec Sodium (137-145) mmol/L Potassium (3.5-5.1) mmol/L Chloride (98-107) mmol/L Carbon Dioxide (22-30) mmol/L Anion Gap mmol/L BUN (7-17) mg/dL Creatinine (0.52-1.04) mg/dL Est GFR (CKD-EPI)AfAm (>60 ml/min/1.73 sqM) Est GFR (CKD-EPI)NonAf (>60 ml/min/1.73 sqM) Glucose (74-99) mg/dL POC Glucose (mg/dL) 84 (75-99) mg/dL POC Glu Communication Analyst ID Marli Foster Lactic Ac Sepsis Rflx Y Plasma Lactic Acid Brock (0.7-2.0) mmol/L Calcium (8.4-10.2) mg/dL Phosphorus (2.5-4.5) mg/dL Magnesium (1.6-2.3) mg/dL Total Bilirubin (0.2-1.3) mg/dL AST (14-36) U/L ALT (4-34) U/L Alkaline Phosphatase (38-126) U/L Troponin I (0.000-0.034) ng/mL NT-Pro-B Natriuret Pep pg/mL Total Protein (6.3-8.2) g/dL Albumin (3.5-5.0) g/dL Urine Color Yellow Urine Appearance Clear (Clear) Urine pH 5.0 (5.0-8.0) Ur Specific [place] 1.007 (1.001-1.035) Urine Protein Negative (Negative) Urine Glucose (UA) Negative (Negative) Urine Ketones Negative (Negative) Urine Blood Negative (Negative) Urine Nitrite Negative (Negative) Urine Bilirubin Negative (Negative) Urine Urobilinogen <2.0 (<2.0) mg/dL Ur Leukocyte Esterase Negative (Negative) Disposition Clinical Impression: Headache, Low glucose level, Lightheaded, Generalized weakness, Dehydration, Elevated serum creatinine Disposition: HOME SELF-CARE Condition: Good Instructions (If sedation given, give patient instructions): Acute Headache (ED) Additional Instructions: Please use medication as discussed. Please follow-up with family doctor in the next 2 days. Please return to emergency room if the symptoms increase or worsen or for any other concerns. Please discontinue the Metformin until follow-up with primary care provider, I recommend more frequent glucose checks. Prescriptions: Nystatin 100,000 Unit/gm Powd [Mycostatin Powder] 1 applic TOPICAL BID 7 Days #15 gm Is patient prescribed a controlled substance at d/c from ED?: No Referrals: Beau Jade MD [Primary Care Provider] - 1-2 days Time of Disposition: 15:22
[2019-10-14 15:46] LABS: Glucose,Whole Blood 84 mg/dL (75-99)
[2019-10-14 16:06] VITALS: BP 116/61; PULSE 78; RESP 18; TEMP 97.5
== END 2019-10-14 16:08 | disposition home or self-care (01) ==
LOC: EC 11:52
DX: E86.0 Dehydration (principal); E16.2 Hypoglycemia, unspecified; R51 Headache; I11.0 Hypertensive heart disease with heart failure; I50.9 Heart failure, unspecified; J44.9 Chronic obstructive pulmonary disease, unspecified; E03.9 Hypothyroidism, unspecified; E11.9 Type 2 diabetes mellitus without complications; E78.5 Hyperlipidemia, unspecified; G25.81 Restless legs syndrome; G89.29 Other chronic pain; M54.5 Low back pain; H35.30 Unspecified macular degeneration; F41.9 Anxiety disorder, unspecified; F31.9 Bipolar disorder, unspecified; F43.10 Post-traumatic stress disorder, unspecified; K21.9 Gastro-esophageal reflux disease without esophagitis; M10.9 Gout, unspecified; M19.90 Unspecified osteoarthritis, unspecified site; Z79.890 Hormone replacement therapy; Z79.84 Long term (current) use of oral hypoglycemic drugs; Z79.1 Long term (current) use of non-steroidal anti-inflammatories (NSAID); Z79.899 Other long term (current) drug therapy; Z83.3 Family history of diabetes mellitus; Z88.0 Allergy status to penicillin; Z88.2 Allergy status to sulfonamides; Z88.8 Allergy status to other drugs, medicaments and biological substances; Z88.7 Allergy status to serum and vaccine; Z96.651 Presence of right artificial knee joint; Z86.711 Personal history of pulmonary embolism; Z98.84 Bariatric surgery status; Z95.5 Presence of coronary angioplasty implant and graft
CPT/HCPCS: 36415; 93005; 83880; 80053; 83605; 83735; 84100; 84484; 85025; 85610; 85730; 81003; 71046; 70450; 99285; 96374; 96375; 96361 ×3; J1200; J2270

== ENCOUNTER 2019-10-24 00:21 | Emergency (ER) | payer MEDICARE, OTHER ==
[2019-10-24 00:26] VITALS: RESP 18
--- NOTE | 2019-10-24 01:14 | XR ---
EXAMINATION TYPE: XR knee 4V LT DATE OF EXAM: 10/24/2019 COMPARISON: 02/11/2019 HISTORY: Pain Findings There is spurring of the femoral and tibial condyles. There is narrowing of the lateral joint space w ith spurring. There is mild narrowing of the patellofemoral joint space. There is extensive soft tiss ue calcification over the anterior lower thigh. This is probably due to phleboliths. : IMPRESSION: Osteoarthritis that is more severe in the lateral joint space. No significant change comp ared to old exam. No fracture.
--- NOTE | 2019-10-24 01:17 | ED ---
General Adult HPI - General Source: patient, EMS, RN notes reviewed, old records reviewed Mode of arrival: EMS Limitations: no limitations <Derik Anderson - Last Filed: 10/24/19 01:55> <Mayra Layton - Last Filed: 10/26/19 22:02> - General Chief complaint: Extremity Problem,Nontraumatic Stated complaint: Possible DVT Time Seen by Provider: 10/24/19 00:25 - History of Present Illness Initial comments: 59-year-old female patient sent a past medical history history of prior DVT/PE presents to ED for chief complaint of left lower extremity pain. Began a few hours prior to presentation. Reports that it is a burning pain behind her knee, posterior calf region. Denies chest pain shortness of breath. Denies any other complaints. Systemic: Pt denies fatigue, fever/chills, rash. Pt denies weakness, night sweats, weight loss. Neuro: Pt denies headache, visual disturbances, syncope or pre-syncope. HEENT: Pt denies ocular discharge or irritation, otalgia, rhinorrhea, pharyngitis or notable lymphadenopathy. Cardiopulmonary: Pt denies chest pain, SOB, heart palpitations, dyspnea on exertion. Abdominal/GI: Pt denies abdominal pain, n/v/d. : Pt denies dysuria, burning w/ urination, frequency/urgency. Denies new onset urinary or bowel incontinence. MSK: Pt denies myalgia, loss of strength or function in extremities. Neuro: Pt denies new onset weakness, paresthesias. (Derik Anderson) - Related Data Home Medications Medication Instructions Recorded Confirmed Carvedilol [Coreg] 25 mg PO BID 06/07/17 08/14/19 Levothyroxine Sodium [Synthroid] 137 mcg PO DAILY 10/20/17 08/14/19 Montelukast [Singulair] 10 mg PO DAILY 06/28/18 08/14/19 DULoxetine HCL [Cymbalta] 60 mg PO BID 08/15/18 08/14/19 Miconazole 2% Cream [Monistat-Derm] 1 applic TOPICAL TID 11/05/18 08/14/19 rOPINIRole HCL [Requip] 4 mg PO BID 11/18/18 08/14/19 Torsemide [Demadex] 50 mg PO SUTUTHSA 12/15/18 08/14/19 Torsemide [Demadex] 100 mg PO MOWEFR 12/15/18 08/14/19 Potassium Chloride [Klor-Con 20] 20 meq PO DAILY 02/26/19 08/14/19 Diclofenac Sodium [Voltaren Gel] 1 applic TOPICAL BID PRN 04/22/19 08/14/19 Loperamide [Imodium] 2 mg PO QID PRN 04/22/19 08/14/19 Mometasone Cream 0.1% 1 applic TOPICAL DAILY 04/22/19 08/14/19 Ondansetron HCl [Zofran] 4 mg PO BID PRN 04/22/19 08/14/19 metFORMIN HCL [Glucophage] 500 mg PO BID 05/18/19 08/14/19 Vit C/E/Zn/Coppr/Lutein/Zeaxan 1 cap PO DAILY 05/24/19 08/14/19 [Preservision Areds 2 Softgel] hydrOXYzine PAMOATE [Vistaril] 25 mg PO TID PRN 06/10/19 08/14/19 ALPRAZolam [Xanax] 0.5 mg PO BID PRN 08/14/19 08/14/19 Acetaminophen [Tylenol 8 Hour] 650 mg PO Q8H PRN 08/14/19 08/14/19 Albuterol Sulfate [Ventolin HFA] 1 - 2 puff INHALATION RT-Q6H PRN 08/14/19 08/14/19 Allopurinol [Zyloprim] 100 mg PO DAILY 08/14/19 08/14/19 Cariprazine HCl [Vraylar] 6 mg PO HS 08/14/19 08/14/19 Celecoxib [CeleBREX] 400 mg PO DAILY 08/14/19 08/14/19 Cholecalciferol [Vitamin D3 (25 5,000 unit PO DAILY 08/14/19 08/14/19 Mcg = 1000 Iu)] Cyanocobalamin (Vitamin B-12) 1,000 mcg PO DAILY 08/14/19 08/14/19 [Vitamin B-12] Ferrous Sulfate [Feosol] 325 mg PO BID 08/14/19 08/14/19 Gabapentin 600 mg PO TID 08/14/19 08/14/19 Ipratropium-Albuterol Nebulize 3 ml INHALATION RT-QID PRN 08/14/19 08/14/19 [Duoneb 0.5 mg-3 mg/3 ml Soln] Lactobacillus Acidophilus 1 tab PO BID 08/14/19 08/14/19 [Acidophilus] Loratadine [Claritin] 10 mg PO DAILY 08/14/19 08/14/19 Magnesium Oxide [Mag-Ox] 400 mg PO DAILY 08/14/19 08/14/19 Multivitamins, Thera [Multivitamin 1 tab PO DAILY 08/14/19 08/14/19 (formulary)] Omeprazole 20 mg PO DAILY 08/14/19 08/14/19 Vitamin B-12/Folic Acid 1mg 1 tab PO DAILY 08/14/19 08/14/19 traZODone HCL [Desyrel] 100 mg PO HS 08/14/19 08/14/19 Previous Rx's Medication Instructions Recorded Rivaroxaban [Xarelto] 20 mg PO DAILY 90 Days #90 tab 11/18/17 Nystatin 100,000 Unit/gm Powd 1 applic TOPICAL BID 7 Days #15 gm 10/14/19 [Mycostatin Powder] Allergies Allergy/AdvReac Type Severity Reaction Status Date / Time buspirone [From BuSpar] Allergy Unknown Verified 10/24/19 00:26 haloperidol [From Haldol] Allergy Swelling Verified 10/24/19 00:26 iodine Allergy Swelling Verified 10/24/19 00:26 Penicillins Allergy Swelling Verified 10/24/19 00:26 prochlorperazine Allergy Rash/Hives Verified 10/24/19 00:26 Sulfa (Sulfonamide Allergy Rash/Hives Verified 10/24/19 00:26 Antibiotics) Tetanus Vaccines and Toxoid Allergy Rash/Hives Verified 10/24/19 00:26 [Tetanus Vaccines & Toxoid] trifluoperazine HCl Allergy Unknown Verified 10/24/19 00:26 [From Stelazine] Review of Systems ROS Other: All systems not noted in ROS Statement are negative. <Derik Anderson - Last Filed: 10/24/19 01:55> ROS Other: All systems not noted in ROS Statement are negative. <Mayra Layton - Last Filed: 10/26/19 22:02> ROS Statement: Those systems with pertinent positive or pertinent negative responses have been documented in the HPI. Past Medical History Past Medical History: Asthma, Heart Failure, COPD, Diabetes Mellitus, GERD/Reflux, Hyperlipidemia, Hypertension, Musculoskeletal Disorder, Osteoarthritis (OA), Pneumonia, Pulmonary Embolus (PE), Thyroid Disorder Additional Past Medical History / Comment(s): chronic low back pain, herniated discs, RLS, leg edema, anemia, gout bilateral feet, hypothyroid, UTIs, hx cellulitis, cataracts, macular degeneration History of Any Multi-Drug Resistant Organisms: None Reported Past Surgical History: Bariatric Surgery, Heart Catheterization, Hernia Repair, Orthopedic Surgery Additional Past Surgical History / Comment(s): Total Right knee replacement, 3 abdominal hernia repairs, left hip repair d/t fracture, gastric bypass/revision, colonoscopy. Past Anesthesia/Blood Transfusion Reactions: No Reported Reaction Past Psychological History: Anxiety, Bipolar, Depression, Panic Disorder, PTSD Smoking Status: Never smoker Past Alcohol Use History: Occasional Past Drug Use History: None Reported - Past Family History Mother Family Medical History: Cancer Additional Family Medical History / Comment(s): lung cancer Father Family Medical History: Diabetes Mellitus Additional Family Medical History / Comment(s): "my dad from a blood clot that traveled from his leg to his lung and also caused a heart attack." Brother(s) Family Medical History: Diabetes Mellitus Sister(s) Additional Family Medical History / Comment(s): "her heart races too fast" <Derik Anderson J - Last Filed: 10/24/19 01:55> General Exam Limitations: no limitations <Derik Anderson - Last Filed: 10/24/19 01:55> - General Exam Comments Initial Comments: Constitutional: NAD, AOX3, Pt has pleasant affect. HEENT: NC/AT, trachea midline, neck supple, no lymphadenopathy. Posterior pharynx non erythematous, without exudates. External ears appear normal, without discharge. Mucous membranes moist. Eyes PERRLA, EOM intact. There is no scleral icterus. No pallor noted. Cardiopulmonary: RRR, no murmurs, rubs or gallops, no JVD noted. Lungs CTAB in anterior and posterior bowser. No peripheral edema. Abdominal exam: Abdomen soft and non-distended. Abdomen non-tender to palpation in all 4 quadrants. Bowel sounds active in LLQ. No hepatosplenomegaly. No ecchymosis Neuro: CN II-XII grossly intact. No nuchal rigidity. No raccon eyes, no smith sign, no hemotympanum. No cervical spinal tenderness. MSK: Mild amount of left posterior calf tenderness. No erythema or unilateral leg swelling. No skin changes. Right lower extremity nontender.. Posterior tibialis and radial pulse +2 bilaterally. Sensation intact in upper and lower extremities. Full active ROM in upper and lower extremities, 5/5 stregnth. (Derik Anderson) Course Vital Signs 10/24/19 10/24/19 00:22 02:24 Temperature 97.6 F 97.0 F L Pulse Rate 82 69 Respiratory 18 18 Rate Blood Pressure 131/61 129/71 O2 Sat by Pulse 97 100 Oximetry Medical Decision Making <Derik Anderson - Last Filed: 10/24/19 01:55> <Mayra Layton - Last Filed: 10/26/19 22:02> - Medical Decision Making 59-year-old female patient sent a past medical history history of prior DVT/PE presents to ED for chief complaint of left lower extremity pain. Began a few hours prior to presentation. Reports that it is a burning pain behind her knee, posterior calf region. Denies chest pain shortness of breath. Denies any other complaints. Patient vital signs are stable, afebrile. Physical exam displayed: Mild amount of left posterior calf tenderness. No erythema or unilateral leg swelling. No skin changes. Right lower extremity nontender. Ultrasound negative for DVT. Plain film of knee displayed osteoarthritis. Patient discomfort is likely neuropathy versus arthritis. Patient was discharged with follow-up with primary care provider or return to ER if condition worsens. Case discussed with Dr. Layton. (Derik Anderson) I was available for consultation in the emergency department. The history and physical exam were done by the midlevel provider. I was consulted for this patients care. I reviewed the case with the midlevel provider and based on their presentation of the patient, I agree with the assessment, medical decision making and plan of care as documented. Chart was dictated using [employer] dictation software. Attempts were made to correct any dictation errors however some typographical errors may persist. (Mayra Layton) Disposition Is patient prescribed a controlled substance at d/c from ED?: No <Derik Anderson - Last Filed: 10/24/19 01:55> <Mayra Layton - Last Filed: 10/26/19 22:02> Clinical Impression: Myalgia Disposition: HOME SELF-CARE Condition: Stable Instructions (If sedation given, give patient instructions): Musculoskeletal Pain (ED) Additional Instructions: Follow-up with primary care provider and orthopedic consult tomorrow. Return to ER if condition worsens. Referrals: Beau Jade MD [Primary Care Provider] - 1-2 days Buck Hollingsworth DO [Medical Doctor] - 1-2 days
--- NOTE | 2019-10-24 01:23 | US ---
EXAMINATION TYPE: US venous doppler duplex LE LT DATE OF EXAM: 10/24/2019 1:17 AM COMPARISON: NONE CLINICAL HISTORY: pain. 400lb patient who has had multiple negative venous dopplers, now has lower le ft leg pain after walking too much, no h/o dvt SIDE PERFORMED: Left TECHNIQUE: The lower extremity deep venous system is examined utilizing real time linear array sonog rizwan with graded compression, doppler sonography and color-flow sonography. VESSELS IMAGED: External Iliac Vein (EIV) Common Femoral Vein Deep Femoral Vein Greater Saphenous Vein * Femoral Vein Popliteal Vein Small Saphenous Vein * Proximal Calf Veins (* superficial vessels) *challengingly to image due to patients pain tolerance and not being able to withstand some compressi on images. Left Leg: Limited exam appears negative for DVT IMPRESSION: No evidence of deep vein thrombosis in the left leg.
[2019-10-24] MEDS ORDERED: ACETAMINOPHEN TAB 325 MG TAB PO STA (01:31)
[2019-10-24] MEDS ORDERED: Acetaminophen-Codeine 300-30mg TAB PO STA (01:53)
[2019-10-24 02:24] VITALS: BP 129/71; PULSE 69; TEMP 97
== END 2019-10-24 02:30 | disposition home or self-care (01) ==
LOC: EC 00:21
DX: M79.18 Myalgia, other site (principal); M17.12 Unilateral primary osteoarthritis, left knee; J44.9 Chronic obstructive pulmonary disease, unspecified; I11.0 Hypertensive heart disease with heart failure; I50.9 Heart failure, unspecified; E11.9 Type 2 diabetes mellitus without complications; K21.9 Gastro-esophageal reflux disease without esophagitis; M19.90 Unspecified osteoarthritis, unspecified site; E03.9 Hypothyroidism, unspecified; M10.9 Gout, unspecified; G25.81 Restless legs syndrome; F31.9 Bipolar disorder, unspecified; F41.9 Anxiety disorder, unspecified; Z88.0 Allergy status to penicillin; Z88.2 Allergy status to sulfonamides; Z88.7 Allergy status to serum and vaccine; Z88.8 Allergy status to other drugs, medicaments and biological substances; Z91.048 Other nonmedicinal substance allergy status; Z79.1 Long term (current) use of non-steroidal anti-inflammatories (NSAID); Z79.52 Long term (current) use of systemic steroids; Z79.84 Long term (current) use of oral hypoglycemic drugs; Z79.890 Hormone replacement therapy; Z79.899 Other long term (current) drug therapy; Z87.01 Personal history of pneumonia (recurrent); Z86.711 Personal history of pulmonary embolism; Z86.718 Personal history of other venous thrombosis and embolism; Z96.651 Presence of right artificial knee joint
CPT/HCPCS: 99284

== ENCOUNTER 2019-12-11 16:07 | Emergency (ER) | payer MEDICARE, OTHER ==
[2019-12-11 16:14] VITALS: BP 136/74; PULSE 67; RESP 18; TEMP 97.1
--- NOTE | 2019-12-11 17:06 | ED ---
Psych HPI - General Chief Complaint: Psychiatric Symptoms Stated Complaint: EPS eval Time Seen by Provider: 12/11/19 16:09 Source: patient, EMS, RN notes reviewed Mode of arrival: EMS Limitations: no limitations - History of Present Illness Initial Comments: 59-year-old female presented emergency department with chief complaint of depression. Patient states that she has worsening depression as [facility] patient states that they have been on locked out secondary to current pandemic. Patient denies any illicit drug use or alcohol abuse. Patient states she does. Compresses had thoughts of hurting herself. Patient denies any homicidal ideation patient offers no other complaints. No physical complaints. - Related Data Home Medications Medication Instructions Recorded Confirmed Carvedilol [Coreg] 25 mg PO BID 06/07/17 08/14/19 Levothyroxine Sodium [Synthroid] 137 mcg PO DAILY 10/20/17 08/14/19 Montelukast [Singulair] 10 mg PO DAILY 06/28/18 08/14/19 DULoxetine HCL [Cymbalta] 60 mg PO BID 08/15/18 08/14/19 Miconazole 2% Cream [Monistat-Derm] 1 applic TOPICAL TID 11/05/18 08/14/19 rOPINIRole HCL [Requip] 4 mg PO BID 11/18/18 08/14/19 Torsemide [Demadex] 50 mg PO SUTUTHSA 12/15/18 08/14/19 Torsemide [Demadex] 100 mg PO MOWEFR 12/15/18 08/14/19 Potassium Chloride [Klor-Con 20] 20 meq PO DAILY 02/26/19 08/14/19 Diclofenac Sodium [Voltaren Gel] 1 applic TOPICAL BID PRN 04/22/19 08/14/19 Loperamide [Imodium] 2 mg PO QID PRN 04/22/19 08/14/19 Mometasone Cream 0.1% 1 applic TOPICAL DAILY 04/22/19 08/14/19 Ondansetron HCl [Zofran] 4 mg PO BID PRN 04/22/19 08/14/19 metFORMIN HCL [Glucophage] 500 mg PO BID 05/18/19 08/14/19 Vit C/E/Zn/Coppr/Lutein/Zeaxan 1 cap PO DAILY 05/24/19 08/14/19 [Preservision Areds 2 Softgel] hydrOXYzine PAMOATE [Vistaril] 25 mg PO TID PRN 06/10/19 08/14/19 ALPRAZolam [Xanax] 0.5 mg PO BID PRN 08/14/19 08/14/19 Acetaminophen [Tylenol 8 Hour] 650 mg PO Q8H PRN 08/14/19 08/14/19 Albuterol Sulfate [Ventolin HFA] 1 - 2 puff INHALATION RT-Q6H PRN 08/14/19 08/14/19 Allopurinol [Zyloprim] 100 mg PO DAILY 08/14/19 08/14/19 Cariprazine HCl [Vraylar] 6 mg PO HS 08/14/19 08/14/19 Celecoxib [CeleBREX] 400 mg PO DAILY 08/14/19 08/14/19 Cholecalciferol [Vitamin D3 (25 5,000 unit PO DAILY 08/14/19 08/14/19 Mcg = 1000 Iu)] Cyanocobalamin (Vitamin B-12) 1,000 mcg PO DAILY 08/14/19 08/14/19 [Vitamin B-12] Ferrous Sulfate [Feosol] 325 mg PO BID 08/14/19 08/14/19 Gabapentin 600 mg PO TID 08/14/19 08/14/19 Ipratropium-Albuterol Nebulize 3 ml INHALATION RT-QID PRN 08/14/19 08/14/19 [Duoneb 0.5 mg-3 mg/3 ml Soln] Lactobacillus Acidophilus 1 tab PO BID 08/14/19 08/14/19 [Acidophilus] Loratadine [Claritin] 10 mg PO DAILY 08/14/19 08/14/19 Magnesium Oxide [Mag-Ox] 400 mg PO DAILY 08/14/19 08/14/19 Multivitamins, Thera [Multivitamin 1 tab PO DAILY 08/14/19 08/14/19 (formulary)] Omeprazole 20 mg PO DAILY 08/14/19 08/14/19 Vitamin B-12/Folic Acid 1mg 1 tab PO DAILY 08/14/19 08/14/19 traZODone HCL [Desyrel] 100 mg PO HS 08/14/19 08/14/19 Previous Rx's Medication Instructions Recorded Rivaroxaban [Xarelto] 20 mg PO DAILY 90 Days #90 tab 11/18/17 Nystatin 100,000 Unit/gm Powd 1 applic TOPICAL BID 7 Days #15 gm 10/14/19 [Mycostatin Powder] Allergies Allergy/AdvReac Type Severity Reaction Status Date / Time buspirone [From BuSpar] Allergy Unknown Verified 10/24/19 00:26 haloperidol [From Haldol] Allergy Swelling Verified 10/24/19 00:26 iodine Allergy Swelling Verified 10/24/19 00:26 Penicillins Allergy Swelling Verified 10/24/19 00:26 prochlorperazine Allergy Rash/Hives Verified 10/24/19 00:26 Sulfa (Sulfonamide Allergy Rash/Hives Verified 10/24/19 00:26 Antibiotics) Tetanus Vaccines and Toxoid Allergy Rash/Hives Verified 10/24/19 00:26 [Tetanus Vaccines & Toxoid] trifluoperazine HCl Allergy Unknown Verified 10/24/19 00:26 [From Stelazine] Review of Systems ROS Statement: Those systems with pertinent positive or pertinent negative responses have been documented in the HPI. ROS Other: All systems not noted in ROS Statement are negative. Past Medical History Past Medical History: Asthma, Heart Failure, COPD, Diabetes Mellitus, GERD/Reflux, Hyperlipidemia, Hypertension, Musculoskeletal Disorder, Osteoarthritis (OA), Pneumonia, Pulmonary Embolus (PE), Thyroid Disorder Additional Past Medical History / Comment(s): chronic low back pain, herniated discs, RLS, leg edema, anemia, gout bilateral feet, hypothyroid, UTIs, hx cellulitis, cataracts, macular degeneration History of Any Multi-Drug Resistant Organisms: None Reported Past Surgical History: Bariatric Surgery, Heart Catheterization, Hernia Repair, Orthopedic Surgery Additional Past Surgical History / Comment(s): Total Right knee replacement, 3 abdominal hernia repairs, left hip repair d/t fracture, gastric bypass/revision, colonoscopy. Past Anesthesia/Blood Transfusion Reactions: No Reported Reaction Past Psychological History: Anxiety, Bipolar, Depression, Panic Disorder, PTSD Smoking Status: Never smoker Past Alcohol Use History: Occasional Past Drug Use History: None Reported - Past Family History Mother Family Medical History: Cancer Additional Family Medical History / Comment(s): lung cancer Father Family Medical History: Diabetes Mellitus Additional Family Medical History / Comment(s): "my dad from a blood clot that traveled from his leg to his lung and also caused a heart attack." Brother(s) Family Medical History: Diabetes Mellitus Sister(s) Additional Family Medical History / Comment(s): "her heart races too fast" General Exam Limitations: no limitations General appearance: alert, in no apparent distress, obese Head exam: Present: atraumatic, normocephalic, normal inspection Eye exam: Present: normal appearance, PERRL, EOMI. Absent: scleral icterus, conjunctival injection, periorbital swelling Respiratory exam: Present: normal lung sounds bilaterally. Absent: respiratory distress, wheezes, rales, rhonchi, stridor Cardiovascular Exam: Present: regular rate, normal rhythm, normal heart sounds. Absent: systolic murmur, diastolic murmur, rubs, gallop, clicks GI/Abdominal exam: Present: soft, normal bowel sounds. Absent: distended, tenderness, guarding, rebound, rigid Neurological exam: Present: alert, oriented X3 Psychiatric exam: Present: depressed, anxious Skin exam: Present: warm, dry, intact, normal color. Absent: rash Course Vital Signs 12/11/19 16:12 Temperature 97.1 F L Pulse Rate 67 Respiratory 18 Rate Blood Pressure 136/74 O2 Sat by Pulse 97 Oximetry Medical Decision Making - Medical Decision Making patient was evaluated by EPS and case discussed with psychiatrist recommends p atient be [facility] to [facility]. Patient is discharged to a safe environment home and guardian were updated. Disposition Clinical Impression: Depression Disposition: HOME SELF-CARE Condition: Stable Instructions (If sedation given, give patient instructions): Depression (ED) Additional Instructions: Please return to the Emergency Department if symptoms worsen or any other concerns. Is patient prescribed a controlled substance at d/c from ED?: No Referrals: Beau Jade MD [Primary Care Provider] - 1-2 days Time of Disposition: 17:05
[2019-12-11] MEDS ORDERED: LORazepam 2 MG/ML INJ IM STA (17:32)
== END 2019-12-11 18:00 | disposition home or self-care (01) ==
LOC: EC 16:07
DX: F32.9 Major depressive disorder, single episode, unspecified (principal); J44.9 Chronic obstructive pulmonary disease, unspecified; E11.9 Type 2 diabetes mellitus without complications; K21.9 Gastro-esophageal reflux disease without esophagitis; I11.0 Hypertensive heart disease with heart failure; I50.9 Heart failure, unspecified; E03.9 Hypothyroidism, unspecified; M19.90 Unspecified osteoarthritis, unspecified site; F41.9 Anxiety disorder, unspecified; Z79.899 Other long term (current) drug therapy; Z79.02 Long term (current) use of antithrombotics/antiplatelets; Z79.890 Hormone replacement therapy; Z79.84 Long term (current) use of oral hypoglycemic drugs; Z88.0 Allergy status to penicillin; Z91.048 Other nonmedicinal substance allergy status; Z88.2 Allergy status to sulfonamides; Z88.8 Allergy status to other drugs, medicaments and biological substances; Z88.7 Allergy status to serum and vaccine; Z98.84 Bariatric surgery status; Z86.711 Personal history of pulmonary embolism; Z96.651 Presence of right artificial knee joint
CPT/HCPCS: 82075; 99284; 96372; J2060

== ENCOUNTER 2020-01-19 13:06 | Emergency (ER) | payer MEDICARE, OTHER ==
--- NOTE | 2020-01-19 13:12 | ED ---
Psych HPI - General Stated Complaint: Mental Health Time Seen by Provider: 01/19/20 13:07 Source: patient, EMS Mode of arrival: EMS Limitations: no limitations - History of Present Illness Initial Comments: 59-year-old female presents emergency department via EMS from [facility] for psychiatric evaluation. Patient states she has increasing depression, suicidal patient. Patient states that she wants to walk in front of traffic. Patient denies any self-harm at this time. She states she's been taking her medications. Denies any nausea vomiting diarrhea constipation no fevers or chills no URI symptoms. Patient denies alcohol or drug abuse denies any homicidal ideation. - Related Data Home Medications Medication Instructions Recorded Confirmed Carvedilol [Coreg] 25 mg PO BID 06/07/17 08/14/19 Levothyroxine Sodium [Synthroid] 137 mcg PO DAILY 10/20/17 08/14/19 Montelukast [Singulair] 10 mg PO DAILY 06/28/18 08/14/19 DULoxetine HCL [Cymbalta] 60 mg PO BID 08/15/18 08/14/19 Miconazole 2% Cream [Monistat-Derm] 1 applic TOPICAL TID 11/05/18 08/14/19 rOPINIRole HCL [Requip] 4 mg PO BID 11/18/18 08/14/19 Torsemide [Demadex] 50 mg PO SUTUTHSA 12/15/18 08/14/19 Torsemide [Demadex] 100 mg PO MOWEFR 12/15/18 08/14/19 Potassium Chloride [Klor-Con 20] 20 meq PO DAILY 02/26/19 08/14/19 Diclofenac Sodium [Voltaren Gel] 1 applic TOPICAL BID PRN 04/22/19 08/14/19 Loperamide [Imodium] 2 mg PO QID PRN 04/22/19 08/14/19 Mometasone Cream 0.1% 1 applic TOPICAL DAILY 04/22/19 08/14/19 Ondansetron HCl [Zofran] 4 mg PO BID PRN 04/22/19 08/14/19 metFORMIN HCL [Glucophage] 500 mg PO BID 05/18/19 08/14/19 Vit C/E/Zn/Coppr/Lutein/Zeaxan 1 cap PO DAILY 05/24/19 08/14/19 [Preservision Areds 2 Softgel] hydrOXYzine PAMOATE [Vistaril] 25 mg PO TID PRN 06/10/19 08/14/19 ALPRAZolam [Xanax] 0.5 mg PO BID PRN 08/14/19 08/14/19 Acetaminophen [Tylenol 8 Hour] 650 mg PO Q8H PRN 08/14/19 08/14/19 Albuterol Sulfate [Ventolin HFA] 1 - 2 puff INHALATION RT-Q6H PRN 08/14/19 08/14/19 Allopurinol [Zyloprim] 100 mg PO DAILY 08/14/19 08/14/19 Cariprazine HCl [Vraylar] 6 mg PO HS 08/14/19 08/14/19 Celecoxib [CeleBREX] 400 mg PO DAILY 08/14/19 08/14/19 Cholecalciferol [Vitamin D3 (25 5,000 unit PO DAILY 08/14/19 08/14/19 Mcg = 1000 Iu)] Cyanocobalamin (Vitamin B-12) 1,000 mcg PO DAILY 08/14/19 08/14/19 [Vitamin B-12] Ferrous Sulfate [Feosol] 325 mg PO BID 08/14/19 08/14/19 Gabapentin 600 mg PO TID 08/14/19 08/14/19 Ipratropium-Albuterol Nebulize 3 ml INHALATION RT-QID PRN 08/14/19 08/14/19 [Duoneb 0.5 mg-3 mg/3 ml Soln] Lactobacillus Acidophilus 1 tab PO BID 08/14/19 08/14/19 [Acidophilus] Loratadine [Claritin] 10 mg PO DAILY 08/14/19 08/14/19 Magnesium Oxide [Mag-Ox] 400 mg PO DAILY 08/14/19 08/14/19 Multivitamins, Thera [Multivitamin 1 tab PO DAILY 08/14/19 08/14/19 (formulary)] Omeprazole 20 mg PO DAILY 08/14/19 08/14/19 Vitamin B-12/Folic Acid 1mg 1 tab PO DAILY 08/14/19 08/14/19 traZODone HCL [Desyrel] 100 mg PO HS 08/14/19 08/14/19 Previous Rx's Medication Instructions Recorded Rivaroxaban [Xarelto] 20 mg PO DAILY 90 Days #90 tab 11/18/17 Nystatin 100,000 Unit/gm Powd 1 applic TOPICAL BID 7 Days #15 gm 10/14/19 [Mycostatin Powder] LORazepam [Ativan] 0.5 mg PO TID PRN 3 Days #9 tab 12/11/19 LORazepam [Ativan] 1 mg PO TID 3 Days #9 tab 12/11/19 Allergies Allergy/AdvReac Type Severity Reaction Status Date / Time buspirone [From BuSpar] Allergy Unknown Verified 10/24/19 00:26 haloperidol [From Haldol] Allergy Swelling Verified 10/24/19 00:26 iodine Allergy Swelling Verified 10/24/19 00:26 Penicillins Allergy Swelling Verified 10/24/19 00:26 prochlorperazine Allergy Rash/Hives Verified 10/24/19 00:26 Sulfa (Sulfonamide Allergy Rash/Hives Verified 10/24/19 00:26 Antibiotics) Tetanus Vaccines and Toxoid Allergy Rash/Hives Verified 10/24/19 00:26 [Tetanus Vaccines & Toxoid] trifluoperazine HCl Allergy Unknown Verified 10/24/19 00:26 [From Stelazine] Review of Systems ROS Statement: Those systems with pertinent positive or pertinent negative responses have been documented in the HPI. ROS Other: All systems not noted in ROS Statement are negative. Past Medical History Past Medical History: Asthma, Heart Failure, COPD, Diabetes Mellitus, GERD/Reflux, Hyperlipidemia, Hypertension, Musculoskeletal Disorder, Osteoarthritis (OA), Pneumonia, Pulmonary Embolus (PE), Thyroid Disorder Additional Past Medical History / Comment(s): chronic low back pain, herniated discs, RLS, leg edema, anemia, gout bilateral feet, hypothyroid, UTIs, hx cellulitis, cataracts, macular degeneration History of Any Multi-Drug Resistant Organisms: None Reported Past Surgical History: Bariatric Surgery, Heart Catheterization, Hernia Repair, Orthopedic Surgery Additional Past Surgical History / Comment(s): Total Right knee replacement, 3 abdominal hernia repairs, left hip repair d/t fracture, gastric bypass/revision, colonoscopy. Past Anesthesia/Blood Transfusion Reactions: No Reported Reaction Past Psychological History: Anxiety, Bipolar, Depression, Panic Disorder, PTSD Smoking Status: Never smoker Past Alcohol Use History: Occasional Past Drug Use History: None Reported - Past Family History Mother Family Medical History: Cancer Additional Family Medical History / Comment(s): lung cancer Father Family Medical History: Diabetes Mellitus Additional Family Medical History / Comment(s): "my dad from a blood clot that traveled from his leg to his lung and also caused a heart attack." Brother(s) Family Medical History: Diabetes Mellitus Sister(s) Additional Family Medical History / Comment(s): "her heart races too fast" General Exam General appearance: alert, in no apparent distress, obese Head exam: Present: atraumatic, normocephalic, normal inspection Eye exam: Present: normal appearance, PERRL, EOMI. Absent: scleral icterus, conjunctival injection, periorbital swelling ENT exam: Present: normal exam, normal oropharynx, mucous membranes moist Neck exam: Present: normal inspection, full ROM. Absent: tenderness, meningismus, lymphadenopathy Respiratory exam: Present: normal lung sounds bilaterally. Absent: respiratory distress, wheezes, rales, rhonchi, stridor Cardiovascular Exam: Present: regular rate, normal rhythm, normal heart sounds. Absent: systolic murmur, diastolic murmur, rubs, gallop, clicks GI/Abdominal exam: Present: soft, normal bowel sounds. Absent: distended, tenderness, guarding, rebound, rigid Neurological exam: Present: alert, oriented X3, CN II-XII intact, reflexes normal. Absent: motor sensory deficit Psychiatric exam: Present: agitated, anxious Skin exam: Present: warm, dry, intact, normal color. Absent: rash Course Vital Signs 01/19/20 01/19/20 01/19/20 13:11 13:16 16:06 Temperature 97.6 F Pulse Rate 88 85 Respiratory 20 20 20 Rate Blood Pressure 92/74 135/85 O2 Sat by Pulse 99 96 Oximetry 01/19/20 17:00 Temperature Pulse Rate 85 Respiratory 20 Rate Blood Pressure 135/85 O2 Sat by Pulse 96 Oximetry Medical Decision Making - Medical Decision Making Patient was evaluated by EPS, discussed with psychiatrist recommends patient be discharged back to [facility]. Patient is safe. Return parameters were discussed. Safety plan in place. - Lab Data Lab Results 01/19/20 Range/Units 15:19 Urine Opiates Screen Not Detected (NotDetected) Ur Oxycodone Screen Not Detected (NotDetected) Urine Methadone Screen Not Detected (NotDetected) Ur Propoxyphene Screen Not Detected (NotDetected) Ur Barbiturates Screen Not Detected (NotDetected) U Tricyclic Antidepress Not Detected (NotDetected) Ur Phencyclidine Scrn Not Detected (NotDetected) Ur Amphetamines Screen Not Detected (NotDetected) U Methamphetamines Scrn Not Detected (NotDetected) U Benzodiazepines Scrn Detected H (NotDetected) Urine Cocaine Screen Not Detected (NotDetected) U Marijuana (THC) Screen Not Detected (NotDetected) Disposition Clinical Impression: Depression Disposition: HOME SELF-CARE Condition: Stable Instructions (If sedation given, give patient instructions): Depression (ED) Additional Instructions: Please return to the Emergency Department if symptoms worsen or any other concerns. Is patient prescribed a controlled substance at d/c from ED?: No Referrals: None,Stated [REFERRING] - 1-2 days Time of Disposition: 17:31
[2020-01-19 13:18] VITALS: TEMP 97.6
[2020-01-19] MEDS ORDERED: LORazepam 2 MG/ML INJ IV STA (13:22)
[2020-01-19 15:49] LABS: Amphetamine Screen,Urine Not Detected (NotDetected); Barbiturate Screen,Urine Not Detected (NotDetected); Benzodiazepines Screen,Urine Detected (NotDetected); Cocaine Screen,Urine Not Detected (NotDetected); Methadone Screen, Urine Not Detected (NotDetected); Opiate Screen,Urine Not Detected (NotDetected); Oxycodone Screen, Urine Not Detected (NotDetected); Phencyclidine Screen,Urine Not Detected (NotDetected); Tricyclic Antidepressant,Urine Not Detected (NotDetected); Urn Cannabinoid Scrn Not Detected (NotDetected)
[2020-01-19] MEDS ORDERED: ZIPRASIDONE 20 MG VIAL IM STA (16:18)
[2020-01-19] MEDS ORDERED: MIDAZOLAM 1 MG/ML 5 ML VIAL IM STA (17:29)
[2020-01-19 18:28] VITALS: RESP 18
[2020-01-19 19:03] VITALS: BP 128/82; PULSE 75
== END 2020-01-19 17:50 | disposition home or self-care (01) ==
LOC: EC 13:06 → SUPCPDRO 13:06 → EC 17:50
DX: F32.9 Major depressive disorder, single episode, unspecified (principal); J44.9 Chronic obstructive pulmonary disease, unspecified; I11.0 Hypertensive heart disease with heart failure; I50.9 Heart failure, unspecified; E11.9 Type 2 diabetes mellitus without complications; E03.9 Hypothyroidism, unspecified; K21.9 Gastro-esophageal reflux disease without esophagitis; F41.0 Panic disorder [episodic paroxysmal anxiety]; M19.90 Unspecified osteoarthritis, unspecified site; Z79.899 Other long term (current) drug therapy; Z79.51 Long term (current) use of inhaled steroids; Z79.890 Hormone replacement therapy; Z79.02 Long term (current) use of antithrombotics/antiplatelets; Z79.84 Long term (current) use of oral hypoglycemic drugs; Z88.0 Allergy status to penicillin; Z88.8 Allergy status to other drugs, medicaments and biological substances; Z88.2 Allergy status to sulfonamides; Z91.048 Other nonmedicinal substance allergy status; Z88.7 Allergy status to serum and vaccine; Z98.84 Bariatric surgery status; Z86.711 Personal history of pulmonary embolism; Z96.651 Presence of right artificial knee joint
CPT/HCPCS: 80306; 99285; 96374; 96372; J2060; J2250

== ENCOUNTER 2020-02-03 12:31 | Emergency (ER) | payer MEDICARE, OTHER ==
[2020-02-03] MEDS ORDERED: DICYCLOMINE 10 MG/ML 2 ML AMP IM STA (13:03)
[2020-02-03] MEDS ORDERED: SODIUM CHLORIDE 0.9% 500 ML 500 ML IV ONE (13:04)
[2020-02-03 13:09] VITALS: TEMP 97.6
--- NOTE | 2020-02-03 14:09 | ED ---
General Adult HPI - General Chief complaint: Abdominal Pain Stated complaint: Weakness Time Seen by Provider: 02/03/20 12:41 Source: patient, EMS Mode of arrival: EMS - History of Present Illness Initial comments: 59 year-old female patient presents to the emergency department for evaluation of diarrhea. Patient states she's had diarrhea since this morning. States she's had 6 or 7 episodes. States that it is liquid stool, denies hematochezia or melena. She is having abdominal cramping with this as well. States the cramping usually starts after the diarrhea episode. Denies any nausea or vomiting. Denies fever or chills. Denies any recent travel or sick contacts. Has not taken any medication for her symptoms. Denies any new medications. Patient denies any recent rash, cough, shortness of breath, chest pain, back pain, numbness, tingling, dizziness, weakness, hematuria, dysuria, urinary urgency, urinary frequency, headache, visual changes, or any other complaints. - Related Data Home Medications Medication Instructions Recorded Confirmed Carvedilol [Coreg] 25 mg PO BID 06/07/17 01/19/20 Levothyroxine Sodium [Synthroid] 137 mcg PO DAILY 10/20/17 01/19/20 Montelukast [Singulair] 10 mg PO DAILY 06/28/18 01/19/20 DULoxetine HCL [Cymbalta] 60 mg PO BID 08/15/18 01/19/20 Miconazole 2% Cream [Monistat-Derm] 1 applic TOPICAL TID 11/05/18 01/19/20 rOPINIRole HCL [Requip] 4 mg PO BID 11/18/18 01/19/20 Torsemide [Demadex] 50 mg PO SUTUTHSA 12/15/18 01/19/20 Torsemide [Demadex] 100 mg PO MOWEFR 12/15/18 01/19/20 Potassium Chloride [Klor-Con 20] 20 meq PO DAILY 02/26/19 01/19/20 Loperamide [Imodium] 4 mg PO QID PRN 04/22/19 01/19/20 Vit C/E/Zn/Coppr/Lutein/Zeaxan 1 cap PO BID 05/24/19 01/19/20 [Preservision Areds 2 Softgel] Acetaminophen [Tylenol 8 Hour] 650 mg PO TID 08/14/19 01/19/20 Allopurinol [Zyloprim] 100 mg PO DAILY 08/14/19 01/19/20 Loratadine [Claritin] 10 mg PO DAILY 08/14/19 01/19/20 Magnesium Oxide [Mag-Ox] 400 mg PO DAILY 08/14/19 01/19/20 Multivitamins, Thera [Multivitamin 1 tab PO DAILY 08/14/19 01/19/20 (formulary)] Omeprazole 20 mg PO DAILY 08/14/19 01/19/20 Cariprazine HCl [Vraylar] 3 mg PO HS 01/19/20 01/19/20 Celecoxib [CeleBREX] 400 mg PO DAILY 01/19/20 01/19/20 Cephalexin [Keflex] 500 mg PO TID 01/19/20 01/19/20 Cholecalciferol (Vitamin D3) 125 mcg PO DAILY 01/19/20 01/19/20 [Vitamin D3] Ferrous Gluconate 324 mg PO BID 01/19/20 01/19/20 Gabapentin [Neurontin] 400 mg PO DAILY 01/19/20 01/19/20 LORazepam [Ativan] 1 mg PO TID PRN 01/19/20 01/19/20 Melatonin 10 mg PO HS 01/19/20 01/19/20 Mometasone Furoate [[place]] 1 applic TOPICAL DAILY 01/19/20 01/19/20 Paliperidone [Invega] 3 mg PO DAILY 01/19/20 01/19/20 Paliperidone [Invega] 6 mg PO DAILY 01/19/20 01/19/20 Tolnaftate [Tinactin] 1 applic TOPICAL DAILY 01/19/20 01/19/20 lamoTRIgine [LaMICtal] 150 mg PO DAILY 01/19/20 01/19/20 traZODone HCL 50 mg PO HS 01/19/20 01/19/20 Previous Rx's Medication Instructions Recorded Nystatin 100,000 Unit/gm Powd 1 applic TOPICAL BID 7 Days #15 gm 10/14/19 [Mycostatin Powder] Allergies Allergy/AdvReac Type Severity Reaction Status Date / Time buspirone [From BuSpar] Allergy Rash/Hives Verified 01/19/20 17:38 haloperidol [From Haldol] Allergy Swelling Verified 01/19/20 17:38 hydroxyzine [From Vistaril] Allergy Rash/Hives Verified 01/19/20 17:38 iodine Allergy Swelling Verified 01/19/20 17:38 Penicillins Allergy Swelling Verified 01/19/20 17:38 prochlorperazine Allergy Rash/Hives Verified 01/19/20 17:38 Sulfa (Sulfonamide Allergy Rash/Hives Verified 01/19/20 17:38 Antibiotics) Tetanus Vaccines and Toxoid Allergy Rash/Hives Verified 01/19/20 17:38 [Tetanus Vaccines & Toxoid] trifluoperazine HCl Allergy Unknown Verified 01/19/20 17:38 [From Stelazine] Review of Systems ROS Statement: Those systems with pertinent positive or pertinent negative responses have been documented in the HPI. ROS Other: All systems not noted in ROS Statement are negative. Past Medical History Past Medical History: Asthma, Heart Failure, COPD, Diabetes Mellitus, GERD/Reflux, Hyperlipidemia, Hypertension, Musculoskeletal Disorder, Osteoarthritis (OA), Pneumonia, Pulmonary Embolus (PE), Thyroid Disorder Additional Past Medical History / Comment(s): chronic low back pain, herniated discs, RLS, leg edema, anemia, gout bilateral feet, hypothyroid, UTIs, hx cellulitis, cataracts, macular degeneration History of Any Multi-Drug Resistant Organisms: None Reported Past Surgical History: Bariatric Surgery, Heart Catheterization, Hernia Repair, Orthopedic Surgery Additional Past Surgical History / Comment(s): Total Right knee replacement, 3 abdominal hernia repairs, left hip repair d/t fracture, gastric bypass/revision, colonoscopy. Past Anesthesia/Blood Transfusion Reactions: No Reported Reaction Past Psychological History: Anxiety, Bipolar, Depression, Panic Disorder, PTSD Smoking Status: Never smoker Past Alcohol Use History: Occasional Past Drug Use History: None Reported - Past Family History Mother Family Medical History: Cancer Additional Family Medical History / Comment(s): lung cancer Father Family Medical History: Diabetes Mellitus Additional Family Medical History / Comment(s): "my dad from a blood clot that traveled from his leg to his lung and also caused a heart attack." Brother(s) Family Medical History: Diabetes Mellitus Sister(s) Additional Family Medical History / Comment(s): "her heart races too fast" General Exam General appearance: alert, in no apparent distress, other (This is a well- developed, well-nourished adult female patient in no acute distress. Vital signs upon presentation are temperature 97.6F, pulse 84, respirations 18, blood pressure 112/63, pulse ox 99% on room air.) Respiratory exam: Present: normal lung sounds bilaterally. Absent: respiratory distress, wheezes, rales, rhonchi, stridor Cardiovascular Exam: Present: regular rate, normal rhythm, normal heart sounds. Absent: systolic murmur, diastolic murmur, rubs, gallop, clicks GI/Abdominal exam: Present: soft, tenderness (Generalized), normal bowel sounds. Absent: distended, guarding, rebound, rigid Neurological exam: Present: alert, oriented X3, CN II-XII intact Psychiatric exam: Present: normal affect, normal mood Skin exam: Present: warm, dry, intact, normal color. Absent: rash Course Vital Signs 02/03/20 02/03/20 02/03/20 12:41 14:07 15:07 Temperature 97.6 F Pulse Rate 84 68 70 Respiratory 18 20 20 Rate Blood Pressure 112/63 128/69 120/67 O2 Sat by Pulse 99 96 96 Oximetry Medical Decision Making - Medical Decision Making 59-year-old female patient presents to the emergency department today complaining of diarrhea and abdominal cramping. Denies hematochezia or melena. Abdomen is soft and nontender. Labs reviewed and are unremarkable. Patient is given Bentyl here and will be given Lomotil. She is instructed to follow-up with her primary care physician for recheck in 1-2 days. Return parameters were discussed in detail. She verbalizes understanding and agrees with this plan. - Lab Data Result diagrams: 02/03/20 14:08 02/03/20 14:08 Lab Results 02/03/20 02/03/20 Range/Units 14:08 14:08 WBC 8.3 (3.8-10.6) k/uL RBC 3.38 L (3.80-5.40) m/uL Hgb 10.2 L (11.4-16.0) gm/dL Hct 33.2 L (34.0-46.0) % MCV 98.1 (80.0-100.0) fL MCH 30.3 (25.0-35.0) pg MCHC 30.9 L (31.0-37.0) g/dL RDW 16.7 H (11.5-15.5) % Plt Count 305 (150-450) k/uL Neutrophils % 75 % Lymphocytes % 16 % Monocytes % 5 % Eosinophils % 2 % Basophils % 0 % Neutrophils # 6.2 (1.3-7.7) k/uL Lymphocytes # 1.3 (1.0-4.8) k/uL Monocytes # 0.4 (0-1.0) k/uL Eosinophils # 0.1 (0-0.7) k/uL Basophils # 0.0 (0-0.2) k/uL Hypochromasia Moderate Anisocytosis Slight Macrocytosis Slight Sodium 138 (137-145) mmol/L Potassium 3.6 (3.5-5.1) mmol/L Chloride 107 (98-107) mmol/L Carbon Dioxide 24 (22-30) mmol/L Anion Gap 7 mmol/L BUN 38 H (7-17) mg/dL Creatinine 1.34 H (0.52-1.04) mg/dL Est GFR (CKD-EPI)AfAm 51 (>60 ml/min/1.73 sqM) Est GFR (CKD-EPI)NonAf 44 (>60 ml/min/1.73 sqM) Glucose 79 (74-99) mg/dL Calcium 8.3 L (8.4-10.2) mg/dL Total Bilirubin 0.3 (0.2-1.3) mg/dL AST 26 (14-36) U/L ALT 13 (4-34) U/L Alkaline Phosphatase 106 (38-126) U/L Total Protein 5.8 L (6.3-8.2) g/dL Albumin 3.2 L (3.5-5.0) g/dL Amylase <30 L (30-110) U/L Lipase 43 (23-300) U/L Disposition Clinical Impression: Diarrhea, Abdominal pain Disposition: HOME SELF-CARE Condition: Good Instructions (If sedation given, give patient instructions): Acute Diarrhea (ED), Abdominal Pain (ED) Additional Instructions: Increase fluids. Rest. Follow-up with your primary care physician for recheck in 1-2 days. Return to the emergency department immediately for any new, worsening, or concerning symptoms. Is patient prescribed a controlled substance at d/c from ED?: No Referrals: Beau Jade MD [Primary Care Provider] - 1-2 days Time of Disposition: 15:40
[2020-02-03 14:43] LABS: ALT 13 U/L (4-34); AST 26 U/L (14-36); African American GFR (CKD) 51 (>60 ml/min/1.73 sqM); Albumin 3.2 g/dL (3.5-5.0); Alkaline Phosphatase 106 U/L (38-126); Amylase <30 U/L (30-110); Anion Gap 7 mmol/L; Blood Urea Nitrogen 38 mg/dL (7-17); Calcium 8.3 mg/dL (8.4-10.2); Carbon Dioxide 24 mmol/L (22-30); Chloride 107 mmol/L (98-107); Glucose 79 mg/dL (74-99); Non-African American GFR(CKD) 44 (>60 ml/min/1.73 sqM); Potassium 3.6 mmol/L (3.5-5.1); Sodium 138 mmol/L (137-145); Total Bilirubin 0.3 mg/dL (0.2-1.3); Total Protein 5.8 g/dL (6.3-8.2)
[2020-02-03 14:47] LABS: Anisocytosis Slight; Basophils % (A) 0 %; Eosinophils # (A) 0.1 k/uL (0-0.7); Eosinophils % (A) 2 %; HCT 33.2 % (34.0-46.0); HGB 10.2 gm/dL (11.4-16.0); Hypochromasia Moderate; Lymphocytes # (A) 1.3 k/uL (1.0-4.8); Lymphocytes % (A) 16 %; MCH 30.3 pg (25.0-35.0); MCHC 30.9 g/dL (31.0-37.0); MCV 98.1 fL (80.0-100.0); Macrocytosis Slight; Mean Platelet Volume 7.6; Monocytes # (A) 0.4 k/uL (0-1.0); Monocytes % (A) 5 %; Neutrophils # (A) 6.2 k/uL (1.3-7.7); Neutrophils % (A) 75 %; Platelet Count 305 k/uL (150-450); RBC 3.38 m/uL (3.80-5.40); RDW 16.7 % (11.5-15.5); WBC 8.3 k/uL (3.8-10.6)
[2020-02-03] MEDS ORDERED: DIPHENOX-ATROP STARTER PACK 8 TAB BTL PO STA (15:40)
[2020-02-03 16:02] VITALS: PULSE 70; RESP 20
[2020-02-03 16:04] VITALS: BP 114/69
[2020-02-03 16:23] LABS: Appearance,Urine Cloudy (Clear); Bacteria,Urine Few /hpf; Bilirubin,Urine Negative (Negative); Blood,Urine Small (Negative); Budding Yeast,Urine Few /hpf; Color,Urine Yellow; Glucose,Urine (UA) Negative (Negative); Hyaline Casts,Urine 6 /lpf (0-2); Ketones,Urine Negative (Negative); Leukocyte Esterase,Urine Large (Negative); Mucus,Urine Rare /hpf; Nitrite,Urine Negative (Negative); Protein,Urine Negative (Negative); RBC,Urine 20 /hpf (0-5); Specific Gravity,Urine 1.007 (1.001-1.035); Squamous Epithelial Cell,Urine 1 /hpf (0-4); Urobilinogen,Urine <2.0 mg/dL (<2.0)
== END 2020-02-03 16:17 | disposition home or self-care (01) ==
LOC: EC 12:31
DX: R19.7 Diarrhea, unspecified (principal); R10.9 Unspecified abdominal pain; I11.0 Hypertensive heart disease with heart failure; I50.9 Heart failure, unspecified; J44.9 Chronic obstructive pulmonary disease, unspecified; E11.9 Type 2 diabetes mellitus without complications; K21.9 Gastro-esophageal reflux disease without esophagitis; M54.5 Low back pain; G89.29 Other chronic pain; F31.9 Bipolar disorder, unspecified; F41.9 Anxiety disorder, unspecified; M19.90 Unspecified osteoarthritis, unspecified site; M10.9 Gout, unspecified; E03.9 Hypothyroidism, unspecified; F41.0 Panic disorder [episodic paroxysmal anxiety]; F43.10 Post-traumatic stress disorder, unspecified; Z79.52 Long term (current) use of systemic steroids; Z79.890 Hormone replacement therapy; Z79.899 Other long term (current) drug therapy; Z88.0 Allergy status to penicillin; Z88.2 Allergy status to sulfonamides; Z88.7 Allergy status to serum and vaccine; Z88.8 Allergy status to other drugs, medicaments and biological substances; Z91.041 Radiographic dye allergy status; Z95.5 Presence of coronary angioplasty implant and graft; Z96.651 Presence of right artificial knee joint; Z98.890 Other specified postprocedural states; Z98.84 Bariatric surgery status; Z87.01 Personal history of pneumonia (recurrent); Z86.711 Personal history of pulmonary embolism; Z80.1 Family history of malignant neoplasm of trachea, bronchus and lung; Z83.3 Family history of diabetes mellitus
CPT/HCPCS: 36415; 80053; 82150; 83690; 85025; 81001; 99284; 96372; 96360; J0500

== ENCOUNTER 2020-03-19 14:08 | Emergency (ER) | payer MEDICARE, OTHER ==
[2020-03-19 14:17] VITALS: RESP 16
--- NOTE | 2020-03-19 14:18 | ED ---
General Adult HPI - General Chief complaint: Shortness of Breath Stated complaint: SJ Time Seen by Provider: 03/19/20 14:12 Source: patient, EMS Mode of arrival: EMS Limitations: no limitations - History of Present Illness Initial comments: Patient presents the ED by ambulance for evaluation. Patient states that she has been dyspneic for the past 2 days or so. Patient also admits to having a mild, chronic cough. Patient denies having any other symptoms or complaints. Patient denies having any pain, fever or chills, headache, focal neuro deficit, chest pain or pressure, hemoptysis, palpitations, dizziness, abdominal pain, nausea/vomiting/diarrhea, dysuria or urinary symptoms, decreased urine output, leg or calf swelling or pain, or any other symptoms or complaints. Patient denies known sick contact. - Related Data Home Medications Medication Instructions Recorded Confirmed Carvedilol [Coreg] 25 mg PO BID 06/07/17 03/19/20 Levothyroxine Sodium [Synthroid] 137 mcg PO DAILY 10/20/17 03/19/20 Montelukast [Singulair] 10 mg PO DAILY 06/28/18 03/19/20 DULoxetine HCL [Cymbalta] 60 mg PO BID 08/15/18 03/19/20 rOPINIRole HCL [Requip] 4 mg PO BID 11/18/18 03/19/20 Torsemide [Demadex] 50 mg PO SUTUTHSA 12/15/18 03/19/20 Torsemide [Demadex] 100 mg PO MOWEFR 12/15/18 03/19/20 Potassium Chloride [Klor-Con 20] 20 meq PO DAILY 02/26/19 03/19/20 Loperamide [Imodium] 4 mg PO QID PRN 04/22/19 03/19/20 Acetaminophen [Tylenol 8 Hour] 650 mg PO TID 08/14/19 03/19/20 Allopurinol [Zyloprim] 100 mg PO DAILY 08/14/19 03/19/20 Loratadine [Claritin] 10 mg PO DAILY 08/14/19 03/19/20 Magnesium Oxide [Mag-Ox] 400 mg PO DAILY 08/14/19 03/19/20 Multivitamins, Thera [Multivitamin 1 tab PO DAILY 08/14/19 03/19/20 (formulary)] Omeprazole 20 mg PO DAILY 08/14/19 03/19/20 Cariprazine HCl [Vraylar] 3 mg PO HS 01/19/20 03/19/20 Celecoxib [CeleBREX] 400 mg PO DAILY 01/19/20 03/19/20 Cholecalciferol (Vitamin D3) 125 mcg PO DAILY 01/19/20 03/19/20 [Vitamin D3] Ferrous Gluconate 324 mg PO BID 01/19/20 03/19/20 Gabapentin [Neurontin] 400 mg PO TID 01/19/20 03/19/20 LORazepam [Ativan] 1 mg PO TID PRN 01/19/20 03/19/20 Melatonin 10 mg PO HS PRN 01/19/20 03/19/20 Tolnaftate [Tinactin] 1 applic TOPICAL DAILY 01/19/20 03/19/20 lamoTRIgine [LaMICtal] 150 mg PO DAILY 01/19/20 03/19/20 Previous Rx's Medication Instructions Recorded Nystatin 100,000 Unit/gm Powd 1 applic TOPICAL BID 7 Days #15 gm 10/14/19 [Mycostatin Powder] Allergies Allergy/AdvReac Type Severity Reaction Status Date / Time buspirone [From BuSpar] Allergy Rash/Hives Verified 03/19/20 14:35 haloperidol [From Haldol] Allergy Swelling Verified 03/19/20 14:35 hydroxyzine [From Vistaril] Allergy Rash/Hives Verified 03/19/20 14:35 iodine Allergy Swelling Verified 03/19/20 14:35 Penicillins Allergy Swelling Verified 03/19/20 14:35 prochlorperazine Allergy Rash/Hives Verified 03/19/20 14:35 Sulfa (Sulfonamide Allergy Rash/Hives Verified 03/19/20 14:35 Antibiotics) Tetanus Vaccines and Toxoid Allergy Rash/Hives Verified 03/19/20 14:35 [Tetanus Vaccines & Toxoid] trifluoperazine HCl Allergy Unknown Verified 03/19/20 14:35 [From Stelazine] Review of Systems ROS Statement: Those systems with pertinent positive or pertinent negative responses have been documented in the HPI. ROS Other: All systems not noted in ROS Statement are negative. Past Medical History Past Medical History: Asthma, Heart Failure, COPD, Diabetes Mellitus, GERD/Reflux, Hyperlipidemia, Hypertension, Musculoskeletal Disorder, Osteoarthritis (OA), Pneumonia, Pulmonary Embolus (PE), Thyroid Disorder Additional Past Medical History / Comment(s): chronic low back pain, herniated discs, RLS, leg edema, anemia, gout bilateral feet, hypothyroid, UTIs, hx cellulitis, cataracts, macular degeneration History of Any Multi-Drug Resistant Organisms: None Reported Past Surgical History: Bariatric Surgery, Heart Catheterization, Hernia Repair, Orthopedic Surgery Additional Past Surgical History / Comment(s): Total Right knee replacement, 3 abdominal hernia repairs, left hip repair d/t fracture, gastric bypass/revision, colonoscopy. Past Anesthesia/Blood Transfusion Reactions: No Reported Reaction Past Psychological History: Anxiety, Bipolar, Depression, Panic Disorder, PTSD Past Alcohol Use History: Occasional Past Drug Use History: None Reported - Past Family History Mother Family Medical History: Cancer Additional Family Medical History / Comment(s): lung cancer Father Family Medical History: Diabetes Mellitus Additional Family Medical History / Comment(s): "my dad from a blood clot that traveled from his leg to his lung and also caused a heart attack." Brother(s) Family Medical History: Diabetes Mellitus Sister(s) Additional Family Medical History / Comment(s): "her heart races too fast" General Exam Limitations: no limitations General appearance: alert, in no apparent distress Head exam: Present: atraumatic, normocephalic Eye exam: Present: normal appearance, EOMI ENT exam: Present: mucous membranes moist Neck exam: Present: other (Trachea is in midline) Respiratory exam: Present: normal lung sounds bilaterally. Absent: respiratory distress, wheezes, rales, rhonchi, stridor Cardiovascular Exam: Present: regular rate, normal rhythm, normal heart sounds, other (Normal radial pulses bilaterally) GI/Abdominal exam: Present: soft, other (Obese abdomen). Absent: tenderness, guarding Extremities exam: Present: other (Negative Homans sign bilaterally). Absent: tenderness, pedal edema, calf tenderness Neurological exam: Present: alert, oriented X3. Absent: motor sensory deficit Psychiatric exam: Present: flat affect Skin exam: Present: warm, dry, intact, normal color Course Vital Signs 03/19/20 03/19/20 14:13 17:04 Temperature 98 F Pulse Rate 81 66 Respiratory 16 16 Rate Blood Pressure 159/88 141/79 O2 Sat by Pulse 100 98 Oximetry EKG Findings - EKG Comments: EKG Findings:: Normal sinus rhythm, ventricular rate of 79 bpm, no ectopy, normal axis, normal MN and QRS intervals, normal QT interval, no ST or T-wave abnormality Medical Decision Making - Medical Decision Making Patient has been alert and breathing comfortably while in the ED with a normal room air oxygen saturation. Patient's troponin is negative. Patient's chest x- ray is fairly unremarkable. Patient's VQ scan is low probability for pulmonary embolus. I do not think that the patient's dyspnea is from an emergent medical condition. Patient is aware of her test results, and she feels comfortable going home at this time. Patient was counseled about dyspnea, and she was clearly explained return and follow-up instructions. Patient was instructed to follow up closely with her primary care provider. - Lab Data Result diagrams: 03/19/20 14:45 03/19/20 14:45 Lab Results 03/19/20 03/19/20 03/19/20 Range/Units 14:45 14:45 14:45 WBC 7.3 (3.8-10.6) k/uL RBC 3.34 L (3.80-5.40) m/uL Hgb 9.9 L (11.4-16.0) gm/dL Hct 31.4 L (34.0-46.0) % MCV 94.0 (80.0-100.0) fL MCH 29.6 (25.0-35.0) pg MCHC 31.5 (31.0-37.0) g/dL RDW 15.0 (11.5-15.5) % Plt Count 298 (150-450) k/uL Neutrophils % 69 % Lymphocytes % 18 % Monocytes % 6 % Eosinophils % 2 % Basophils % 1 % Neutrophils # 5.1 (1.3-7.7) k/uL Lymphocytes # 1.3 (1.0-4.8) k/uL Monocytes # 0.4 (0-1.0) k/uL Eosinophils # 0.2 (0-0.7) k/uL Basophils # 0.0 (0-0.2) k/uL Hypochromasia Slight PT 9.3 (9.0-12.0) sec INR 0.9 (<1.2) APTT 24.8 (22.0-30.0) sec D-Dimer 2.28 H (<0.60) mg/L FEU Sodium 138 (137-145) mmol/L Potassium 4.9 (3.5-5.1) mmol/L Chloride 106 (98-107) mmol/L Carbon Dioxide 25 (22-30) mmol/L Anion Gap 7 mmol/L BUN 16 (7-17) mg/dL Creatinine 0.76 (0.52-1.04) mg/dL Est GFR (CKD-EPI)AfAm >90 (>60 ml/min/1.73 sqM) Est GFR (CKD-EPI)NonAf 87 (>60 ml/min/1.73 sqM) Glucose 89 (74-99) mg/dL Calcium 9.2 (8.4-10.2) mg/dL Total Bilirubin 0.4 (0.2-1.3) mg/dL AST 22 (14-36) U/L ALT 11 (4-34) U/L Alkaline Phosphatase 99 (38-126) U/L Troponin I (0.000-0.034) ng/mL NT-Pro-B Natriuret Pep pg/mL Total Protein 6.4 (6.3-8.2) g/dL Albumin 3.9 (3.5-5.0) g/dL 03/19/20 03/19/20 Range/Units 14:45 14:45 WBC (3.8-10.6) k/uL RBC (3.80-5.40) m/uL Hgb (11.4-16.0) gm/dL Hct (34.0-46.0) % MCV (80.0-100.0) fL MCH (25.0-35.0) pg MCHC (31.0-37.0) g/dL RDW (11.5-15.5) % Plt Count (150-450) k/uL Neutrophils % % Lymphocytes % % Monocytes % % Eosinophils % % Basophils % % Neutrophils # (1.3-7.7) k/uL Lymphocytes # (1.0-4.8) k/uL Monocytes # (0-1.0) k/uL Eosinophils # (0-0.7) k/uL Basophils # (0-0.2) k/uL Hypochromasia PT (9.0-12.0) sec INR (<1.2) APTT (22.0-30.0) sec D-Dimer (<0.60) mg/L FEU Sodium (137-145) mmol/L Potassium (3.5-5.1) mmol/L Chloride (98-107) mmol/L Carbon Dioxide (22-30) mmol/L Anion Gap mmol/L BUN (7-17) mg/dL Creatinine (0.52-1.04) mg/dL Est GFR (CKD-EPI)AfAm (>60 ml/min/1.73 sqM) Est GFR (CKD-EPI)NonAf (>60 ml/min/1.73 sqM) Glucose (74-99) mg/dL Calcium (8.4-10.2) mg/dL Total Bilirubin (0.2-1.3) mg/dL AST (14-36) U/L ALT (4-34) U/L Alkaline Phosphatase (38-126) U/L Troponin I <0.012 (0.000-0.034) ng/mL NT-Pro-B Natriuret Pep 1970 pg/mL Total Protein (6.3-8.2) g/dL Albumin (3.5-5.0) g/dL - Radiology Data Radiology results: report reviewed (Chest x-ray shows cardiomegaly with pulmonary vascular congestion; VQ scan is limited, but is very low probability for pulmonary embolus) Disposition Clinical Impression: Dyspnea Disposition: HOME SELF-CARE Condition: Stable Additional Instructions: Return to the ER immediately should you develop increased shortness of breath, chest pain, a fever, vomiting, feeling dizzy or faint, or new or worsening symptoms. Follow up closely with your primary care provider. Is patient prescribed a controlled substance at d/c from ED?: No Referrals: Beau Jade MD [Primary Care Provider] - 1-2 days Time of Disposition: 17:58
[2020-03-19 14:54] LABS: Basophils % (A) 1 %; Eosinophils # (A) 0.2 k/uL (0-0.7); Eosinophils % (A) 2 %; HCT 31.4 % (34.0-46.0); HGB 9.9 gm/dL (11.4-16.0); Hypochromasia Slight; Lymphocytes # (A) 1.3 k/uL (1.0-4.8); Lymphocytes % (A) 18 %; MCH 29.6 pg (25.0-35.0); MCHC 31.5 g/dL (31.0-37.0); Mean Platelet Volume 7.9; Monocytes # (A) 0.4 k/uL (0-1.0); Monocytes % (A) 6 %; Neutrophils # (A) 5.1 k/uL (1.3-7.7); Neutrophils % (A) 69 %; Platelet Count 298 k/uL (150-450); RBC 3.34 m/uL (3.80-5.40); WBC 7.3 k/uL (3.8-10.6)
[2020-03-19 15:29] LABS: INR 0.9 (<1.2); Partial Thromboplastin Time 24.8 sec (22.0-30.0); Prothrombin Time 9.3 sec (9.0-12.0)
--- NOTE | 2020-03-19 15:29 | XR ---
EXAMINATION TYPE: XR chest 2V DATE OF EXAM: 03/19/2020 COMPARISON: 08/21/2020 HISTORY: 60 year-old female shortness of breath, difficulty breathing TECHNIQUE: AP and lateral views FINDINGS: Heart mildly enlarged. Diffuse interstitial and vascular prominence, increased from prior. No pleural effusion. Left base underpenetrated on the frontal view not well assessed. No obvious consolidation. IMPRESSION: Cardiomegaly with pulmonary vascular congestion. No preet pulmonary edema at this time.
[2020-03-19 15:31] LABS: ALT 11 U/L (4-34); AST 22 U/L (14-36); African American GFR (CKD) >90 (>60 ml/min/1.73 sqM); Albumin 3.9 g/dL (3.5-5.0); Alkaline Phosphatase 99 U/L (38-126); Anion Gap 7 mmol/L; Blood Urea Nitrogen 16 mg/dL (7-17); Calcium 9.2 mg/dL (8.4-10.2); Carbon Dioxide 25 mmol/L (22-30); Chloride 106 mmol/L (98-107); Glucose 89 mg/dL (74-99); Non-African American GFR(CKD) 87 (>60 ml/min/1.73 sqM); Potassium 4.9 mmol/L (3.5-5.1); Sodium 138 mmol/L (137-145); Total Bilirubin 0.4 mg/dL (0.2-1.3); Total Protein 6.4 g/dL (6.3-8.2)
[2020-03-19 15:37] LABS: D-Dimer 2.28 mg/L FEU (<0.60)
--- NOTE | 2020-03-19 17:47 | NM ---
EXAMINATION TYPE: NM pul perfusion DATE OF EXAM: 03/19/2020 COMPARISON: Radiograph same day HISTORY: 60-year-old female dyspnea, shortness of breath, iodine allergy, elevated d-dimer Technique: Following administration of 5.5 mCi Tc 99m MAA. Perfusion images obtained post injection. FINDINGS: Perfusion only exam was performed as the patient was unable to continue due to back pain. Only 4 perfusion images are obtained. These show no discrete perfusion defect. IMPRESSION: Limited exam. The 4 perfusion images that could be obtained suggest very low probability for pulmonar y embolus.
[2020-03-19 18:14] VITALS: BP 174/70; PULSE 78; TEMP 98.4
== END 2020-03-19 18:12 | disposition home or self-care (01) ==
LOC: EC 14:08
DX: Z20.828 Contact with and (suspected) exposure to other viral communicable diseases (principal); I11.0 Hypertensive heart disease with heart failure; I50.9 Heart failure, unspecified; E03.9 Hypothyroidism, unspecified; J44.9 Chronic obstructive pulmonary disease, unspecified; F41.9 Anxiety disorder, unspecified; F31.9 Bipolar disorder, unspecified; G25.81 Restless legs syndrome; K21.9 Gastro-esophageal reflux disease without esophagitis; M19.90 Unspecified osteoarthritis, unspecified site; F41.0 Panic disorder [episodic paroxysmal anxiety]; F43.10 Post-traumatic stress disorder, unspecified; Z79.890 Hormone replacement therapy; Z79.1 Long term (current) use of non-steroidal anti-inflammatories (NSAID); Z79.899 Other long term (current) drug therapy; Z88.8 Allergy status to other drugs, medicaments and biological substances; Z91.048 Other nonmedicinal substance allergy status; Z88.0 Allergy status to penicillin; Z88.2 Allergy status to sulfonamides; Z88.7 Allergy status to serum and vaccine; Z96.651 Presence of right artificial knee joint; Z86.711 Personal history of pulmonary embolism
CPT/HCPCS: 99285; 36415; 93005; 85379; 83880; 80053; 84484; 85025; 85610; 85730; 71046; 78580; U0003; A9540

== ENCOUNTER 2020-04-03 14:59 | Emergency (ER) | payer MEDICARE, OTHER ==
--- NOTE | 2020-04-03 15:36 | ED ---
General Adult HPI - General Chief complaint: Extremity Problem,Nontraumatic Stated complaint: edema lower extremities Time Seen by Provider: 04/03/20 15:18 Source: patient Mode of arrival: wheelchair Limitations: no limitations - History of Present Illness Initial comments: Dictation was produced using [employer] dictation software. please excuse any g rammatical, word or spelling errors. This patient was cared for during a federal and state declared state of emergency secondary to Covid 19 Chief Complaint: 60-year-old female past medical history of multiple comorbidities presents with lower extremity pain bilaterally and right abdominal pain. History of Present Illness: 60-year-old female for the last 2-3 days she's been experiencing worsening bilateral lower extremity pain and right lower abdominal pain. Patient states that she has been having worsening swelling especially worse to the bilateral lower legs. Patient was evaluated by her primary care physician from [facility] and she was told him to the emergency department for evaluation of lower extremity DVT. Patient is reports Pain. She does report history of pulmonary embolism. Patient denies any shortness of breath or chest pain. She does complain of some abdominal pain with some redness in the area. Denies any nausea vomiting. No diarrhea. She does state she has a history of heart failure. She does take diuretics. She states that last week her diuretics where decreased secondary to urinary issues. The ROS documented in this emergency department record has been reviewed and confirmed by me. Those systems with pertinent positive or negative responses have been documented in the HPI. All other systems are other negative and/or no ncontributory. PHYSICAL EXAM: General Impression: Alert and oriented x3, not in acute distress, morbidly obese HEENT: Normocephalic atraumatic, extra-ocular movements intact, pupils equal and reactive to light bilaterally, mucous membranes moist. Cardiovascular: Heart regular rate and rhythm Chest: Able to complete full sentences, no retractions, no tachypnea Abdomen: abdomen soft, non-distended, no organomegaly, mild erythema and induration to the right lower abdomen that is slightly tender to palpation, no rebound tenderness Musculoskeletal: Pulses present and equal in all extremities, no peripheral edema Motor: no focal deficits noted Neurological: CN II-XII grossly intact, no focal motor or sensory deficits noted Skin: Intact with no visualized rashes Psych: Normal affect and mood ED course: 60 y Old female with multiple comorbid AIDS presents with bilateral lower extremity pain and right abdominal pain. Vital signs upon arrival are within acceptable limits. Clinical presentation concerning for skin cellulitic changes of the abdomen and lower extremities versus subcutaneous edema given that she recently had her diuretics decreased. Chart review shows that patient is on daily torsemide orally. She reports that her primary care physician cut her torsemide doses in half. She does not have any respiratory complaints. No concern for pulmonary embolus given that patient does not have any shortness of breath, chest pain and has stable vital signs. Laboratory evaluation obtained. No leukocytosis. Hemoglobin is 9.3 which is around patient's baseline. Coag panel is unremarkable. Metabolic panel shows potassium 5.5 with slight hemolysis. Rest metabolic panel is unremarkable. C- reactive protein is 44.4. Brain natruretic peptide is 458. Venous Doppler study does not show any DVTs. Clinical presentation concerning for dependent edema versus cellulitis. Given that patient has elevated CRP there is concern of a mild case of cellulitis. There is no discernible infected fluid collection versus abscess. Patient given 1 dose of ceftriaxone. Patient started on dose of Keflex. Patient also given some Lasix for some symptomatic relief given that there is some concern of dependent edema. Patient given analgesics.in stable medical condition. Return parameters discussed. She is understandable and agreeable with disposition plan. EKG interpretation: Ventricular rate 89, normal sinus rhythm,. Interval 1:30, QRS 94, QTC 445. No DE prolongation, no QTC prolongation, no ST or T-wave changes noted. EKG compared to 03/19/2020 showing no changes. Overall, this EKG is unremarkable - Related Data Home Medications Medication Instructions Recorded Confirmed Carvedilol [Coreg] 25 mg PO BID 06/07/17 03/19/20 Levothyroxine Sodium [Synthroid] 137 mcg PO DAILY 10/20/17 03/19/20 Montelukast [Singulair] 10 mg PO DAILY 06/28/18 03/19/20 DULoxetine HCL [Cymbalta] 60 mg PO BID 08/15/18 03/19/20 rOPINIRole HCL [Requip] 4 mg PO BID 11/18/18 03/19/20 Torsemide [Demadex] 50 mg PO SUTUTHSA 12/15/18 03/19/20 Torsemide [Demadex] 100 mg PO MOWEFR 12/15/18 03/19/20 Potassium Chloride [Klor-Con 20] 20 meq PO DAILY 02/26/19 03/19/20 Loperamide [Imodium] 4 mg PO QID PRN 04/22/19 03/19/20 Acetaminophen [Tylenol 8 Hour] 650 mg PO TID 08/14/19 03/19/20 Loratadine [Claritin] 10 mg PO DAILY 08/14/19 03/19/20 Magnesium Oxide [Mag-Ox] 400 mg PO DAILY 08/14/19 03/19/20 Multivitamins, Thera [Multivitamin 1 tab PO DAILY 08/14/19 03/19/20 (formulary)] Omeprazole 20 mg PO DAILY 08/14/19 03/19/20 allopurinoL [Zyloprim] 100 mg PO DAILY 08/14/19 03/19/20 Cariprazine HCl [Vraylar] 3 mg PO HS 01/19/20 03/19/20 Celecoxib [CeleBREX] 400 mg PO DAILY 01/19/20 03/19/20 Cholecalciferol (Vitamin D3) 125 mcg PO DAILY 01/19/20 03/19/20 [Vitamin D3] Ferrous Gluconate 324 mg PO BID 01/19/20 03/19/20 Gabapentin [Neurontin] 400 mg PO TID 01/19/20 03/19/20 LORazepam [Ativan] 1 mg PO TID PRN 01/19/20 03/19/20 Melatonin 10 mg PO HS PRN 01/19/20 03/19/20 Tolnaftate [Tinactin] 1 applic TOPICAL DAILY 01/19/20 03/19/20 lamoTRIgine [LaMICtal] 150 mg PO DAILY 01/19/20 03/19/20 Previous Rx's Medication Instructions Recorded Nystatin 100,000 Unit/gm Powd 1 applic TOPICAL BID 7 Days #15 gm 10/14/19 [Mycostatin Powder] Cephalexin [Keflex] 500 mg PO Q6HR 5 Days #20 cap 04/03/20 HYDROcodone/APAP 5-325MG [[place] 1 tab PO Q6HR PRN 3 Days #12 tab 04/03/20 5-325] Allergies Allergy/AdvReac Type Severity Reaction Status Date / Time buspirone [From BuSpar] Allergy Rash/Hives Verified 04/03/20 15:09 haloperidol [From Haldol] Allergy Swelling Verified 04/03/20 15:09 hydroxyzine [From Vistaril] Allergy Rash/Hives Verified 04/03/20 15:09 iodine Allergy Swelling Verified 04/03/20 15:09 Penicillins Allergy Swelling Verified 04/03/20 15:09 prochlorperazine Allergy Rash/Hives Verified 04/03/20 15:09 Sulfa (Sulfonamide Allergy Rash/Hives Verified 04/03/20 15:09 Antibiotics) Tetanus Vaccines and Toxoid Allergy Rash/Hives Verified 04/03/20 15:09 [Tetanus Vaccines & Toxoid] trifluoperazine HCl Allergy Unknown Verified 04/03/20 15:09 [From Stelazine] Review of Systems ROS Statement: Those systems with pertinent positive or pertinent negative responses have been documented in the HPI. ROS Other: All systems not noted in ROS Statement are negative. Past Medical History Past Medical History: Asthma, Heart Failure, COPD, Diabetes Mellitus, GERD/Reflux, Hyperlipidemia, Hypertension, Musculoskeletal Disorder, Osteoarthritis (OA), Pneumonia, Pulmonary Embolus (PE), Thyroid Disorder Additional Past Medical History / Comment(s): chronic low back pain, herniated discs, RLS, leg edema, anemia, gout bilateral feet, hypothyroid, UTIs, hx cellulitis, cataracts, macular degeneration History of Any Multi-Drug Resistant Organisms: None Reported Past Surgical History: Bariatric Surgery, Heart Catheterization, Hernia Repair, Orthopedic Surgery Additional Past Surgical History / Comment(s): Total Right knee replacement, 3 abdominal hernia repairs, left hip repair d/t fracture, gastric bypass/revision, colonoscopy. Past Anesthesia/Blood Transfusion Reactions: No Reported Reaction Past Psychological History: Anxiety, Bipolar, Depression, Panic Disorder, PTSD Smoking Status: Never smoker Past Alcohol Use History: Occasional Past Drug Use History: None Reported - Past Family History Mother Family Medical History: Cancer Additional Family Medical History / Comment(s): lung cancer Father Family Medical History: Diabetes Mellitus Additional Family Medical History / Comment(s): "my dad from a blood clot that traveled from his leg to his lung and also caused a heart attack." Brother(s) Family Medical History: Diabetes Mellitus Sister(s) Additional Family Medical History / Comment(s): "her heart races too fast" General Exam Limitations: no limitations Course Vital Signs 08/02/20 15:04 Temperature 98.5 F Pulse Rate 98 Respiratory 20 Rate Blood Pressure 140/78 O2 Sat by Pulse 96 Oximetry Medical Decision Making - Lab Data Result diagrams: 04/03/20 15:32 04/03/20 15:32 Lab Results 04/03/20 04/03/20 04/03/20 Range/Units 15:32 15:32 15:32 WBC 7.1 (3.8-10.6) k/uL RBC 3.33 L (3.80-5.40) m/uL Hgb 9.3 L (11.4-16.0) gm/dL Hct 31.0 L (34.0-46.0) % MCV 92.9 (80.0-100.0) fL MCH 27.9 (25.0-35.0) pg MCHC 30.0 L (31.0-37.0) g/dL RDW 14.3 (11.5-15.5) % Plt Count 339 (150-450) k/uL Neutrophils % 69 % Lymphocytes % 20 % Monocytes % 6 % Eosinophils % 2 % Basophils % 0 % Neutrophils # 4.9 (1.3-7.7) k/uL Lymphocytes # 1.4 (1.0-4.8) k/uL Monocytes # 0.4 (0-1.0) k/uL Eosinophils # 0.2 (0-0.7) k/uL Basophils # 0.0 (0-0.2) k/uL Hypochromasia Slight PT 9.3 (9.0-12.0) sec INR 0.9 (<1.2) APTT 22.1 (22.0-30.0) sec Sodium 136 L (137-145) mmol/L Potassium 5.5 H (3.5-5.1) mmol/L Chloride 106 (98-107) mmol/L Carbon Dioxide 23 (22-30) mmol/L Anion Gap 7 mmol/L BUN 24 H (7-17) mg/dL Creatinine 0.69 (0.52-1.04) mg/dL Est GFR (CKD-EPI)AfAm >90 (>60 ml/min/1.73 sqM) Est GFR (CKD-EPI)NonAf >90 (>60 ml/min/1.73 sqM) Glucose 96 (74-99) mg/dL Calcium 9.0 (8.4-10.2) mg/dL Magnesium 1.9 (1.6-2.3) mg/dL Troponin I (0.000-0.034) ng/mL C-Reactive Protein 44.4 H (<10.0) mg/L NT-Pro-B Natriuret Pep pg/mL 04/03/20 04/03/20 Range/Units 15:32 15:32 WBC (3.8-10.6) k/uL RBC (3.80-5.40) m/uL Hgb (11.4-16.0) gm/dL Hct (34.0-46.0) % MCV (80.0-100.0) fL MCH (25.0-35.0) pg MCHC (31.0-37.0) g/dL RDW (11.5-15.5) % Plt Count (150-450) k/uL Neutrophils % % Lymphocytes % % Monocytes % % Eosinophils % % Basophils % % Neutrophils # (1.3-7.7) k/uL Lymphocytes # (1.0-4.8) k/uL Monocytes # (0-1.0) k/uL Eosinophils # (0-0.7) k/uL Basophils # (0-0.2) k/uL Hypochromasia PT (9.0-12.0) sec INR (<1.2) APTT (22.0-30.0) sec Sodium (137-145) mmol/L Potassium (3.5-5.1) mmol/L Chloride (98-107) mmol/L Carbon Dioxide (22-30) mmol/L Anion Gap mmol/L BUN (7-17) mg/dL Creatinine (0.52-1.04) mg/dL Est GFR (CKD-EPI)AfAm (>60 ml/min/1.73 sqM) Est GFR (CKD-EPI)NonAf (>60 ml/min/1.73 sqM) Glucose (74-99) mg/dL Calcium (8.4-10.2) mg/dL Magnesium (1.6-2.3) mg/dL Troponin I <0.012 (0.000-0.034) ng/mL C-Reactive Protein (<10.0) mg/L NT-Pro-B Natriuret Pep 458 pg/mL Disposition Clinical Impression: Cellulitis Disposition: HOME SELF-CARE Condition: Good Instructions (If sedation given, give patient instructions): Cellulitis (ED) Additional Instructions: Today you were evaluated for pain and swelling to bilateral lower extremities and abdomen. Clinical presentation is concerning for cellulitis versus dependent edema. Please follow-up with your primary care physician. Prescriptions for antibiotics and pain medications were sent here pharmacy for pickup. Please follow-up with her primary care physician, he was she may need to reevaluate your skin and/or potentially change the dosing of her diuretic medications. Prescriptions: Cephalexin [Keflex] 500 mg PO Q6HR 5 Days #20 cap HYDROcodone/APAP 5-325MG [[place] 5-325] 1 tab PO Q6HR PRN 3 Days #12 tab PRN Reason: Severe Pain Is patient prescribed a controlled substance at d/c from ED?: Yes Referrals: Beau Jade MD [Primary Care Provider] - 1-2 days Time of Disposition: 16:46
[2020-04-03 15:50] LABS: Basophils % (A) 0 %; Eosinophils # (A) 0.2 k/uL (0-0.7); Eosinophils % (A) 2 %; HGB 9.3 gm/dL (11.4-16.0); Hypochromasia Slight; Lymphocytes # (A) 1.4 k/uL (1.0-4.8); Lymphocytes % (A) 20 %; MCH 27.9 pg (25.0-35.0); MCV 92.9 fL (80.0-100.0); Mean Platelet Volume 7.7; Monocytes # (A) 0.4 k/uL (0-1.0); Monocytes % (A) 6 %; Neutrophils # (A) 4.9 k/uL (1.3-7.7); Neutrophils % (A) 69 %; Platelet Count 339 k/uL (150-450); RBC 3.33 m/uL (3.80-5.40); RDW 14.3 % (11.5-15.5); WBC 7.1 k/uL (3.8-10.6)
[2020-04-03 15:59] LABS: INR 0.9 (<1.2); Partial Thromboplastin Time 22.1 sec (22.0-30.0); Prothrombin Time 9.3 sec (9.0-12.0)
[2020-04-03 16:09] LABS: African American GFR (CKD) >90 (>60 ml/min/1.73 sqM); Anion Gap 7 mmol/L; Blood Urea Nitrogen 24 mg/dL (7-17); C Reactive Protein 44.4 mg/L (<10.0); Carbon Dioxide 23 mmol/L (22-30); Chloride 106 mmol/L (98-107); Glucose 96 mg/dL (74-99); Magnesium 1.9 mg/dL (1.6-2.3); Non-African American GFR(CKD) >90 (>60 ml/min/1.73 sqM); Sodium 136 mmol/L (137-145)
[2020-04-03 16:14] LABS: Potassium 5.5 mmol/L (3.5-5.1)
[2020-04-03] MEDS ORDERED: MORPHINE SULFATE 4 MG/ML SYRINGE IVP STA (16:26)
--- NOTE | 2020-04-03 16:32 | US ---
EXAMINATION TYPE: US venous doppler duplex LE BI DATE OF EXAM: 04/03/2020 4:25 PM COMPARISON: NONE CLINICAL HISTORY: calf pain bilateral. pain bilateral lower legs, edema bilaterally SIDE PERFORMED: bilateral TECHNIQUE: The lower extremity deep venous system is examined utilizing real time linear array sonog rizwan with graded compression, doppler sonography and color-flow sonography. VESSELS IMAGED: External Iliac Vein (EIV) Common Femoral Vein Deep Femoral Vein Greater Saphenous Vein * Femoral Vein Popliteal Vein Small Saphenous Vein * Proximal Calf Veins (* superficial vessels) *Technical limitations due to patient's body habitus, 380+ pounds Right Leg: No evidence of DVT as visualized Left Leg: No evidence of DVT as visualized, patient unable to tolerate compressions at mid and lower femoral vein IMPRESSION: No evidence of deep vein thrombosis in both legs.
[2020-04-03] MEDS ORDERED: cefTRIAXone IN SWFI 1,000 MG/10 ML SYRINGE IVP STA (16:37)
[2020-04-03] MEDS ORDERED: FUROSEMIDE 10 MG/ML 4 ML VIAL IV STA (16:38)
[2020-04-03 16:57] VITALS: BP 154/73; PULSE 91; RESP 18; TEMP 98.3
== END 2020-04-03 17:15 | disposition home or self-care (01) ==
LOC: EEVIPCON 14:59 → EC 14:59
DX: L03.116 Cellulitis of left lower limb (principal); L03.115 Cellulitis of right lower limb; L03.311 Cellulitis of abdominal wall; F41.9 Anxiety disorder, unspecified; F31.9 Bipolar disorder, unspecified; F41.0 Panic disorder [episodic paroxysmal anxiety]; F43.10 Post-traumatic stress disorder, unspecified; J44.9 Chronic obstructive pulmonary disease, unspecified; B20 Human immunodeficiency virus [HIV] disease; I50.9 Heart failure, unspecified; I11.0 Hypertensive heart disease with heart failure; K21.9 Gastro-esophageal reflux disease without esophagitis; E78.5 Hyperlipidemia, unspecified; M19.90 Unspecified osteoarthritis, unspecified site; M10.9 Gout, unspecified; E03.9 Hypothyroidism, unspecified; Z79.890 Hormone replacement therapy; Z79.899 Other long term (current) drug therapy; Z88.0 Allergy status to penicillin; Z88.2 Allergy status to sulfonamides; Z88.8 Allergy status to other drugs, medicaments and biological substances; Z91.041 Radiographic dye allergy status; Z95.5 Presence of coronary angioplasty implant and graft; Z96.651 Presence of right artificial knee joint; Z98.42 Cataract extraction status, left eye; Z98.41 Cataract extraction status, right eye; Z86.711 Personal history of pulmonary embolism; Z87.01 Personal history of pneumonia (recurrent); Z98.84 Bariatric surgery status
CPT/HCPCS: 99284; 96374; 96375 ×2; 36415; 93005; 83880; 80048; 83735; 84484; 85025; 85610; 85730; 86140; 87040; 93970; J2270; J1940; J0696

== ENCOUNTER 2020-04-05 14:56 | Emergency (ER) | payer MEDICARE, OTHER ==
[2020-04-05] MEDS ORDERED: HYDROmorphone 1 MG/ML 1 ML SYRINGE IM STA (15:02)
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
--- NOTE | 2020-04-05 15:44 | XR ---
EXAMINATION TYPE: XR knee complete LT DATE OF EXAM: 04/05/2020 CLINICAL HISTORY: pain TECHNIQUE: Three views of the left knee are obtained. COMPARISON: None. FINDINGS: There is no acute fracture/dislocation. Severe narrowing lateral tibiofemoral joint space with subchondral sclerosis and cyst formation seen. Mild narrowing medial tibiofemoral joint space. M oderate narrowing patellofemoral joint space. Spur formation seen. The overlying soft tissue appears unremarkable. IMPRESSION: There is no acute fracture or dislocation ICD 10 NO FRACTURE, INITIAL EVALUATION
--- NOTE | 2020-04-05 15:46 | XR ---
EXAMINATION TYPE: XR Hip Complete LT DATE OF EXAM: 04/05/2020 CLINICAL HISTORY: Left hip pain and osteoarthritis. TECHNIQUE: Single AP portable view of left hip is obtained immediately postoperatively. COMPARISON: None. FINDINGS: Dynamic compression screw and sideplate proximal left hip. Alignment is anatomic.
[2020-04-05] MEDS ORDERED: ACET/COD 300 MG/30 MG STARTER PACK 6 TAB BTL PO STA (16:02)
[2020-04-05 16:19] VITALS: BP 186/78; PULSE 91; RESP 20; TEMP 97.9
== END 2020-04-05 16:19 | disposition home or self-care (01) ==
LOC: EC 14:56
DX: M25.562 Pain in left knee (principal); M25.552 Pain in left hip; F41.9 Anxiety disorder, unspecified; F31.9 Bipolar disorder, unspecified; F41.0 Panic disorder [episodic paroxysmal anxiety]; F43.10 Post-traumatic stress disorder, unspecified; E03.9 Hypothyroidism, unspecified; G25.81 Restless legs syndrome; I11.0 Hypertensive heart disease with heart failure; I50.9 Heart failure, unspecified; J44.9 Chronic obstructive pulmonary disease, unspecified; K21.9 Gastro-esophageal reflux disease without esophagitis; M10.9 Gout, unspecified; M19.90 Unspecified osteoarthritis, unspecified site; E78.5 Hyperlipidemia, unspecified; Z79.1 Long term (current) use of non-steroidal anti-inflammatories (NSAID); Z79.899 Other long term (current) drug therapy; Z88.0 Allergy status to penicillin; Z88.2 Allergy status to sulfonamides; Z88.7 Allergy status to serum and vaccine; Z88.8 Allergy status to other drugs, medicaments and biological substances; Z91.041 Radiographic dye allergy status; Z98.84 Bariatric surgery status; Z86.711 Personal history of pulmonary embolism; Z95.5 Presence of coronary angioplasty implant and graft; Z96.651 Presence of right artificial knee joint; Z79.890 Hormone replacement therapy
CPT/HCPCS: 73502; 73562; 99283; 96372; J1170

== ENCOUNTER 2020-04-14 15:35 | Emergency (ER) | payer MEDICARE, OTHER ==
[2020-04-14 16:02] VITALS: PULSE 85; RESP 18; TEMP 97.8
--- NOTE | 2020-04-14 16:02 | ED ---
General Adult HPI - General Stated complaint: Mental Health Time Seen by Provider: 04/14/20 15:46 Source: patient, EMS Mode of arrival: EMS Limitations: altered mental status - History of Present Illness Initial comments: Patient is a 60-year-old female presenting to the emergency department for psychiatric evaluation. Patient states she had an acute anxiety attack and called the house piping inspector who advised her to take her anxiolytic medications. Patient states she still did not have any improvements in her symptoms so she contacted EMS. Patient states recently her medication was changed and now she has more mood swings. Patient reports no homicidal thoughts but does report having a "suicidal wish". Patient states she would perform the suicide with pills. - Related Data Home Medications Medication Instructions Recorded Confirmed Carvedilol [Coreg] 25 mg PO BID 06/07/17 04/03/20 Levothyroxine Sodium [Synthroid] 137 mcg PO DAILY 10/20/17 04/03/20 Montelukast [Singulair] 10 mg PO DAILY 06/28/18 04/03/20 DULoxetine HCL [Cymbalta] 60 mg PO BID 08/15/18 04/03/20 rOPINIRole HCL [Requip] 4 mg PO BID 11/18/18 04/03/20 Torsemide [Demadex] 50 mg PO SUTUTHSA 12/15/18 04/03/20 Torsemide [Demadex] 100 mg PO MOWEFR 12/15/18 04/03/20 Loperamide [Imodium] 4 mg PO QID PRN 04/22/19 04/03/20 Acetaminophen [Tylenol 8 Hour] 650 mg PO TID 08/14/19 04/03/20 Loratadine [Claritin] 10 mg PO DAILY 08/14/19 04/03/20 Magnesium Oxide [Mag-Ox] 400 mg PO DAILY 08/14/19 04/03/20 Multivitamins, Thera [Multivitamin 1 tab PO DAILY 08/14/19 04/03/20 (formulary)] Omeprazole 20 mg PO DAILY 08/14/19 04/03/20 allopurinoL [Zyloprim] 100 mg PO DAILY 08/14/19 04/03/20 Celecoxib [CeleBREX] 400 mg PO DAILY 01/19/20 04/03/20 Cholecalciferol (Vitamin D3) 125 mcg PO DAILY 01/19/20 04/03/20 [Vitamin D3] Ferrous Gluconate 324 mg PO BID 01/19/20 04/03/20 Gabapentin [Neurontin] 400 mg PO TID 01/19/20 04/03/20 LORazepam [Ativan] 1 mg PO TID PRN 01/19/20 04/03/20 Melatonin 10 mg PO HS PRN 01/19/20 04/03/20 Tolnaftate [Tinactin] 1 applic TOPICAL DAILY 01/19/20 04/03/20 lamoTRIgine [LaMICtal] 150 mg PO DAILY 01/19/20 04/03/20 Diclofenac Sodium [Voltaren Gel] 4 gram TOPICAL QID PRN 04/03/20 04/03/20 Paliperidone IM [Invega Sustenna] 156 mg IM Q28D 04/03/20 04/03/20 Potassium Chloride ER [K-Dur 10] 10 meq PO DAILY 04/03/20 04/03/20 Previous Rx's Medication Instructions Recorded Nystatin 100,000 Unit/gm Powd 1 applic TOPICAL BID 7 Days #15 gm 10/14/19 [Mycostatin Powder] Cephalexin [Keflex] 500 mg PO Q6HR 5 Days #20 cap 04/03/20 HYDROcodone/APAP 5-325MG [[place] 1 tab PO Q6HR PRN 3 Days #12 tab 04/03/20 5-325] Allergies Allergy/AdvReac Type Severity Reaction Status Date / Time buspirone [From BuSpar] Allergy Rash/Hives Verified 04/05/20 15:06 haloperidol [From Haldol] Allergy Swelling Verified 04/05/20 15:06 hydroxyzine [From Vistaril] Allergy Rash/Hives Verified 04/05/20 15:06 iodine Allergy Swelling Verified 04/05/20 15:06 Penicillins Allergy Swelling Verified 04/05/20 15:06 prochlorperazine Allergy Rash/Hives Verified 04/05/20 15:06 Sulfa (Sulfonamide Allergy Rash/Hives Verified 04/05/20 15:06 Antibiotics) Tetanus Vaccines and Toxoid Allergy Rash/Hives Verified 04/05/20 15:06 [Tetanus Vaccines & Toxoid] trifluoperazine HCl Allergy Unknown Verified 04/05/20 15:06 [From Stelazine] Review of Systems ROS Statement: Those systems with pertinent positive or pertinent negative responses have been documented in the HPI. ROS Other: All systems not noted in ROS Statement are negative. Past Medical History Past Medical History: Asthma, Heart Failure, COPD, Diabetes Mellitus, GERD/Reflux, Hyperlipidemia, Hypertension, Musculoskeletal Disorder, Osteoarthritis (OA), Pneumonia, Pulmonary Embolus (PE), Thyroid Disorder Additional Past Medical History / Comment(s): chronic low back pain, herniated discs, RLS, leg edema, anemia, gout bilateral feet, hypothyroid, UTIs, hx cellulitis, cataracts, macular degeneration History of Any Multi-Drug Resistant Organisms: None Reported Past Surgical History: Bariatric Surgery, Heart Catheterization, Hernia Repair, Orthopedic Surgery Additional Past Surgical History / Comment(s): Total Right knee replacement, 3 abdominal hernia repairs, left hip repair d/t fracture, gastric bypass/revision, colonoscopy. Past Anesthesia/Blood Transfusion Reactions: No Reported Reaction Past Psychological History: Anxiety, Bipolar, Depression, Panic Disorder, PTSD Smoking Status: Never smoker Past Alcohol Use History: Occasional Past Drug Use History: None Reported - Past Family History Mother Family Medical History: Cancer Additional Family Medical History / Comment(s): lung cancer Father Family Medical History: Diabetes Mellitus Additional Family Medical History / Comment(s): "my dad from a blood clot that traveled from his leg to his lung and also caused a heart attack." Brother(s) Family Medical History: Diabetes Mellitus Sister(s) Additional Family Medical History / Comment(s): "her heart races too fast" General Exam Limitations: altered mental status General appearance: alert, in no apparent distress, obese (Morbidly obese) Head exam: Present: normocephalic, normal inspection Eye exam: Present: normal appearance, PERRL, EOMI Pupils: Present: normal accommodation ENT exam: Present: normal exam, normal oropharynx, mucous membranes moist Neck exam: Present: normal inspection, full ROM. Absent: tenderness Respiratory exam: Present: normal lung sounds bilaterally Cardiovascular Exam: Present: regular rate, normal rhythm, normal heart sounds Extremities exam: Present: normal inspection, full ROM. Absent: tenderness Back exam: Present: normal inspection, full ROM Neurological exam: Present: alert, oriented X3 Psychiatric exam: Present: normal affect, normal mood, anxious Skin exam: Present: warm, dry, intact, normal color Course Vital Signs 04/14/20 15:58 Temperature 97.8 F Pulse Rate 85 Respiratory 18 Rate Blood Pressure 157/69 O2 Sat by Pulse 98 Oximetry Medical Decision Making - Medical Decision Making Patient is a 60-year-old female presenting to the emergency department for psychiatric evaluation. Patient is well-known to the emergency department for frequent visits. She is often known to come in with suicidal thoughts and being disruptive until she becomes discharge. She has a public guardian was well aware of the situation. Physical examination is unremarkable. EPS is yet to evaluate the patient. Patient states she does not have any suicidal thoughts and ideations anymore and would like to go home. Case discussed withDr Cortés who cleared the patient for discharge. Return parameters thoroughly discussed with patient was understanding and agreeable. - Lab Data Lab Results 04/14/20 Range/Units 16:41 Urine Opiates Screen Not Detected (NotDetected) Ur Oxycodone Screen Not Detected (NotDetected) Urine Methadone Screen Not Detected (NotDetected) Ur Propoxyphene Screen Not Detected (NotDetected) Ur Barbiturates Screen Not Detected (NotDetected) U Tricyclic Antidepress Not Detected (NotDetected) Ur Phencyclidine Scrn Not Detected (NotDetected) Ur Amphetamines Screen Not Detected (NotDetected) U Methamphetamines Scrn Not Detected (NotDetected) U Benzodiazepines Scrn Detected H (NotDetected) Urine Cocaine Screen Not Detected (NotDetected) U Marijuana (THC) Screen Not Detected (NotDetected) Disposition Clinical Impression: Acute anxiety Disposition: HOME SELF-CARE Condition: Stable Instructions (If sedation given, give patient instructions): Generalized Anxiety Disorder (ED) Additional Instructions: Follow up with your psychiatrist. Return to emergency department if symptoms worsen. Is patient prescribed a controlled substance at d/c from ED?: No Referrals: Beau Jade MD [Primary Care Provider] - 1-2 days Time of Disposition: 18:44
[2020-04-14 17:18] LABS: Amphetamine Screen,Urine Not Detected (NotDetected); Barbiturate Screen,Urine Not Detected (NotDetected); Benzodiazepines Screen,Urine Detected (NotDetected); Cocaine Screen,Urine Not Detected (NotDetected); Methadone Screen, Urine Not Detected (NotDetected); Opiate Screen,Urine Not Detected (NotDetected); Oxycodone Screen, Urine Not Detected (NotDetected); Phencyclidine Screen,Urine Not Detected (NotDetected); Tricyclic Antidepressant,Urine Not Detected (NotDetected); Urn Cannabinoid Scrn Not Detected (NotDetected)
[2020-04-14] MEDS ORDERED: ACETAMINOPHEN TAB 500 MG TAB PO STA (18:21)
[2020-04-14 18:48] VITALS: BP 150/87
== END 2020-04-14 19:00 | disposition home or self-care (01) ==
LOC: EC 15:35
DX: F41.9 Anxiety disorder, unspecified (principal); R45.851 Suicidal ideations; F31.9 Bipolar disorder, unspecified; F43.10 Post-traumatic stress disorder, unspecified; F41.0 Panic disorder [episodic paroxysmal anxiety]; E03.9 Hypothyroidism, unspecified; I11.0 Hypertensive heart disease with heart failure; I50.9 Heart failure, unspecified; E11.9 Type 2 diabetes mellitus without complications; K21.9 Gastro-esophageal reflux disease without esophagitis; E78.5 Hyperlipidemia, unspecified; M19.90 Unspecified osteoarthritis, unspecified site; Z87.01 Personal history of pneumonia (recurrent); G25.81 Restless legs syndrome; M10.9 Gout, unspecified; Z79.890 Hormone replacement therapy; Z79.899 Other long term (current) drug therapy; Z88.0 Allergy status to penicillin; Z88.2 Allergy status to sulfonamides; Z88.7 Allergy status to serum and vaccine; Z88.8 Allergy status to other drugs, medicaments and biological substances; Z91.041 Radiographic dye allergy status; Z95.5 Presence of coronary angioplasty implant and graft; Z96.651 Presence of right artificial knee joint; Z98.42 Cataract extraction status, left eye; Z98.41 Cataract extraction status, right eye; Z86.711 Personal history of pulmonary embolism
CPT/HCPCS: 80306; 82075; 99285

== ENCOUNTER 2020-04-19 16:40 | Emergency (ER) | payer MEDICARE, OTHER ==
[2020-04-19 16:48] VITALS: RESP 18
[2020-04-19] MEDS ORDERED: MORPHINE SULFATE 2 MG/ML SYRINGE IVP PRN (17:17)
[2020-04-19 17:54] LABS: Basophils % (A) 0 %; Eosinophils # (A) 0.2 k/uL (0-0.7); Eosinophils % (A) 2 %; HCT 31.3 % (34.0-46.0); HGB 9.8 gm/dL (11.4-16.0); Hypochromasia Slight; Lymphocytes # (A) 1.7 k/uL (1.0-4.8); Lymphocytes % (A) 23 %; MCHC 31.4 g/dL (31.0-37.0); MCV 92.4 fL (80.0-100.0); Mean Platelet Volume 7.8; Monocytes # (A) 0.5 k/uL (0-1.0); Monocytes % (A) 7 %; Neutrophils # (A) 4.5 k/uL (1.3-7.7); Neutrophils % (A) 63 %; Platelet Count 320 k/uL (150-450); RBC 3.39 m/uL (3.80-5.40); RDW 14.3 % (11.5-15.5); WBC 7.1 k/uL (3.8-10.6)
[2020-04-19 18:21] LABS: Albumin 3.6 g/dL (3.5-5.0); Calcium 8.7 mg/dL (8.4-10.2); Magnesium 1.9 mg/dL (1.6-2.3); Potassium 4.4 mmol/L (3.5-5.1); Total Bilirubin 0.3 mg/dL (0.2-1.3); Total Protein 6.2 g/dL (6.3-8.2)
[2020-04-19] MEDS ORDERED: HYDROmorphone 0.5 MG/0.5 ML SYRINGE IVP STA (18:45)
--- NOTE | 2020-04-19 18:48 | CT ---
EXAMINATION TYPE: CT brain wo con DATE OF EXAM: 04/19/2020 COMPARISON: 10/14/2019 HISTORY: WEAKNESS CT DLP: 1202.4 mGycm Automated exposure control for dose reduction was used. Ventricles and sulci appear normal. There is no mass effect nor midline shift. There is no sign of in tracranial hemorrhage. The calvarium is intact. IMPRESSION: Negative head CT scan. No change.
--- NOTE | 2020-04-19 19:16 | ED ---
Headache HPI - General Chief Complaint: Headache Stated Complaint: headache Time Seen by Provider: 04/19/20 17:02 Mode of arrival: EMS Limitations: no limitations - History of Present Illness Initial Comments: 60-year-old female with extensive past medical history well known to emergency department presenting today for chief complaint of headache. Patient states she frequently has headaches she states that the pain is sharp in her right shoulder and increases with movement of the right arm. She states that she believes this is causing a headache. Patient states she has no nausea vomiting visual changes because of the upper or lower extremity speech changes. Patient states the headache began gradually 1 hour ago, and has been worsening she denies sudden onset or this be the worst headache of her life. Patient states she has experiencing similar headaches in the past. Patient states that she does not know if she slept on it wrong and she does not usually sleep on her right side. Patient denies any fevers or neck stiffness but states the pain does climb along the shoulder towards the right side of the neck. Remaining review system negative patient denies any abdominal pain, chest pain short of breath or pain deep inspiration remaining review system negative - Related Data Home Medications Medication Instructions Recorded Confirmed Carvedilol [Coreg] 25 mg PO BID 06/07/17 04/03/20 Levothyroxine Sodium [Synthroid] 137 mcg PO DAILY 10/20/17 04/03/20 Montelukast [Singulair] 10 mg PO DAILY 06/28/18 04/03/20 DULoxetine HCL [Cymbalta] 60 mg PO BID 08/15/18 04/03/20 rOPINIRole HCL [Requip] 4 mg PO BID 11/18/18 04/03/20 Torsemide [Demadex] 50 mg PO SUTUTHSA 12/15/18 04/03/20 Torsemide [Demadex] 100 mg PO MOWEFR 12/15/18 04/03/20 Loperamide [Imodium] 4 mg PO QID PRN 04/22/19 04/03/20 Acetaminophen [Tylenol 8 Hour] 650 mg PO TID 08/14/19 04/03/20 Loratadine [Claritin] 10 mg PO DAILY 08/14/19 04/03/20 Magnesium Oxide [Mag-Ox] 400 mg PO DAILY 08/14/19 04/03/20 Multivitamins, Thera [Multivitamin 1 tab PO DAILY 08/14/19 04/03/20 (formulary)] Omeprazole 20 mg PO DAILY 08/14/19 04/03/20 allopurinoL [Zyloprim] 100 mg PO DAILY 08/14/19 04/03/20 Celecoxib [CeleBREX] 400 mg PO DAILY 01/19/20 04/03/20 Cholecalciferol (Vitamin D3) 125 mcg PO DAILY 01/19/20 04/03/20 [Vitamin D3] Ferrous Gluconate 324 mg PO BID 01/19/20 04/03/20 Gabapentin [Neurontin] 400 mg PO TID 01/19/20 04/03/20 LORazepam [Ativan] 1 mg PO TID PRN 01/19/20 04/03/20 Melatonin 10 mg PO HS PRN 01/19/20 04/03/20 Tolnaftate [Tinactin] 1 applic TOPICAL DAILY 01/19/20 04/03/20 lamoTRIgine [LaMICtal] 150 mg PO DAILY 01/19/20 04/03/20 Diclofenac Sodium [Voltaren Gel] 4 gram TOPICAL QID PRN 04/03/20 04/03/20 Paliperidone IM [Invega Sustenna] 156 mg IM Q28D 04/03/20 04/03/20 Potassium Chloride ER [K-Dur 10] 10 meq PO DAILY 04/03/20 04/03/20 Previous Rx's Medication Instructions Recorded Nystatin 100,000 Unit/gm Powd 1 applic TOPICAL BID 7 Days #15 gm 10/14/19 [Mycostatin Powder] Cephalexin [Keflex] 500 mg PO Q6HR 5 Days #20 cap 04/03/20 HYDROcodone/APAP 5-325MG [[place] 1 tab PO Q6HR PRN 3 Days #12 tab 04/03/20 5-325] Cyclobenzaprine [Flexeril] 10 mg PO BID PRN 2 Days #4 tab 04/19/20 Allergies Allergy/AdvReac Type Severity Reaction Status Date / Time buspirone [From BuSpar] Allergy Rash/Hives Verified 04/19/20 16:44 haloperidol [From Haldol] Allergy Swelling Verified 04/19/20 16:44 hydroxyzine [From Vistaril] Allergy Rash/Hives Verified 04/19/20 16:44 iodine Allergy Swelling Verified 04/19/20 16:44 Penicillins Allergy Swelling Verified 04/19/20 16:44 prochlorperazine Allergy Rash/Hives Verified 04/19/20 16:44 Sulfa (Sulfonamide Allergy Rash/Hives Verified 04/19/20 16:44 Antibiotics) Tetanus Vaccines and Toxoid Allergy Rash/Hives Verified 04/19/20 16:44 [Tetanus Vaccines & Toxoid] trifluoperazine HCl Allergy Unknown Verified 04/19/20 16:44 [From Stelazine] Review of Systems ROS Statement: Those systems with pertinent positive or pertinent negative responses have been documented in the HPI. ROS Other: All systems not noted in ROS Statement are negative. Past Medical History Past Medical History: Asthma, Heart Failure, COPD, Diabetes Mellitus, GERD/Reflux, Hyperlipidemia, Hypertension, Musculoskeletal Disorder, Osteoarthritis (OA), Pneumonia, Pulmonary Embolus (PE), Thyroid Disorder Additional Past Medical History / Comment(s): chronic low back pain, herniated discs, RLS, leg edema, anemia, gout bilateral feet, hypothyroid, UTIs, hx cellulitis, cataracts, macular degeneration History of Any Multi-Drug Resistant Organisms: None Reported Past Surgical History: Bariatric Surgery, Heart Catheterization, Hernia Repair, Orthopedic Surgery Additional Past Surgical History / Comment(s): Total Right knee replacement, 3 abdominal hernia repairs, left hip repair d/t fracture, gastric bypass/revision, colonoscopy. Past Anesthesia/Blood Transfusion Reactions: No Reported Reaction Past Psychological History: Anxiety, Bipolar, Depression, Panic Disorder, PTSD Smoking Status: Never smoker Past Alcohol Use History: Occasional Past Drug Use History: None Reported - Past Family History Mother Family Medical History: Cancer Additional Family Medical History / Comment(s): lung cancer Father Family Medical History: Diabetes Mellitus Additional Family Medical History / Comment(s): "my dad from a blood clot that traveled from his leg to his lung and also caused a heart attack." Brother(s) Family Medical History: Diabetes Mellitus Sister(s) Additional Family Medical History / Comment(s): "her heart races too fast" General Exam - General Exam Comments Initial Comments: General: The patient is awake and alert, in no distress Eye: +3 mm pupils are equal, round and reactive to light, extra-ocular movements are intact. No nystagmus. There is normal conjunctiva bilaterally. No signs of icterus. Ears, nose, mouth and throat: There are moist mucous membranes and no oral lesions. Neck: The neck is supple, there is no tenderness or JVD. No nuchal rigidity Cardiovascular: There is a regular rate and rhythm. No murmur, rub or gallop is appreciated. Respiratory: Lungs are clear to auscultation, respirations are non-labored, breath sounds are equal. No wheezes, stridor, rales, or rhonchi. Gastrointestinal: Soft, non-distended, non-tender abdomen without masses or organomegaly noted. There is no rebound or guarding present. Musculoskeletal: Patient is point localized tenderness over what appears to be the right trapezius she jumps up from the pain when palpated, palpable spasm. Normal ROM, no tenderness. Strength 5/5 of the upper and lower extremity equal comparison bilaterally. No pronator drift Sensation intact of the upper and lower extremities. Radial pulses equal bilaterally 2+. Neurological: A&O x 3. CN II-XII intact, There are no obvious motor or sensory deficits. Coordination appears grossly intact. Speech is normal. Skin: Skin is warm and dry and no rashes or lesions are noted. Psychiatric: Cooperative, appropriate mood & affect, normal judgment. Limitations: no limitations Course Vital Signs 04/19/20 04/19/20 04/19/20 16:44 18:50 19:49 Temperature 98.4 F 98.2 F Pulse Rate 80 72 71 Respiratory 18 18 18 Rate Blood Pressure 125/75 120/60 114/55 O2 Sat by Pulse 100 96 98 Oximetry Medical Decision Making - Medical Decision Making 89-year-old female presented for headache. Given patient's extensive past medical history CT was obtained no acute abnormality >Patient has no focal neurological deficits. No nuchal rigidity. There does seem to be a musculoskeletal component as I can palpate the patient's chart what appears the right trapezius there is palpable spasm and patient jumps when this area is touched. Patient headache improved with IV medications. Labs stable. She is not in distress. SHe will be discharged with PCP f/u. Patient and attenidng Dr. Lane are agreeable to this care plan and discharge. - Lab Data Result diagrams: 04/19/20 17:45 04/19/20 17:45 Lab Results 04/19/20 04/19/20 Range/Units 17:45 17:45 WBC 7.1 (3.8-10.6) k/uL RBC 3.39 L (3.80-5.40) m/uL Hgb 9.8 L (11.4-16.0) gm/dL Hct 31.3 L (34.0-46.0) % MCV 92.4 (80.0-100.0) fL MCH 29.0 (25.0-35.0) pg MCHC 31.4 (31.0-37.0) g/dL RDW 14.3 (11.5-15.5) % Plt Count 320 (150-450) k/uL Neutrophils % 63 % Lymphocytes % 23 % Monocytes % 7 % Eosinophils % 2 % Basophils % 0 % Neutrophils # 4.5 (1.3-7.7) k/uL Lymphocytes # 1.7 (1.0-4.8) k/uL Monocytes # 0.5 (0-1.0) k/uL Eosinophils # 0.2 (0-0.7) k/uL Basophils # 0.0 (0-0.2) k/uL Hypochromasia Slight Sodium 136 L (137-145) mmol/L Potassium 4.4 (3.5-5.1) mmol/L Chloride 104 (98-107) mmol/L Carbon Dioxide 26 (22-30) mmol/L Anion Gap 6 mmol/L BUN 18 H (7-17) mg/dL Creatinine 0.92 (0.52-1.04) mg/dL Est GFR (CKD-EPI)AfAm 79 (>60 ml/min/1.73 sqM) Est GFR (CKD-EPI)NonAf 69 (>60 ml/min/1.73 sqM) Glucose 98 (74-99) mg/dL Calcium 8.7 (8.4-10.2) mg/dL Magnesium 1.9 (1.6-2.3) mg/dL Total Bilirubin 0.3 (0.2-1.3) mg/dL AST 27 (14-36) U/L ALT 12 (4-34) U/L Alkaline Phosphatase 85 (38-126) U/L Total Protein 6.2 L (6.3-8.2) g/dL Albumin 3.6 (3.5-5.0) g/dL Disposition Clinical Impression: Chronic headaches, Headache, Muscle strain Disposition: HOME SELF-CARE Condition: Good Instructions (If sedation given, give patient instructions): Acute Headache (ED) Additional Instructions: Please use medication as discussed. Please follow-up with family doctor in the next 2 days. Please return to emergency room if the symptoms increase or worsen or for any other concerns. Prescriptions: Cyclobenzaprine [Flexeril] 10 mg PO BID PRN 2 Days #4 tab PRN Reason: Muscle Spasm Is patient prescribed a controlled substance at d/c from ED?: No Referrals: Beau Jade MD [Primary Care Provider] - 1-2 days Time of Disposition: 19:16
[2020-04-19] MEDS ORDERED: LIDOCAINE 5% PATCH TOPICAL SCH (19:30)
[2020-04-19 19:51] VITALS: BP 114/55; PULSE 71; TEMP 98.2
== END 2020-04-19 19:51 | disposition home or self-care (01) ==
LOC: EC 16:40
DX: S46.811A Strain of other muscles, fascia and tendons at shoulder and upper arm level, right arm, initial encounter (principal); R51 Headache; I11.0 Hypertensive heart disease with heart failure; I50.9 Heart failure, unspecified; J44.9 Chronic obstructive pulmonary disease, unspecified; K21.9 Gastro-esophageal reflux disease without esophagitis; E03.9 Hypothyroidism, unspecified; F41.9 Anxiety disorder, unspecified; F31.9 Bipolar disorder, unspecified; M19.90 Unspecified osteoarthritis, unspecified site; G89.29 Other chronic pain; M54.5 Low back pain; G25.81 Restless legs syndrome; M10.9 Gout, unspecified; F41.0 Panic disorder [episodic paroxysmal anxiety]; D64.9 Anemia, unspecified; F43.10 Post-traumatic stress disorder, unspecified; Z79.02 Long term (current) use of antithrombotics/antiplatelets; Z79.890 Hormone replacement therapy; Z79.899 Other long term (current) drug therapy; Z79.1 Long term (current) use of non-steroidal anti-inflammatories (NSAID); Z88.0 Allergy status to penicillin; Z88.2 Allergy status to sulfonamides; Z88.7 Allergy status to serum and vaccine; Z88.8 Allergy status to other drugs, medicaments and biological substances; Z91.048 Other nonmedicinal substance allergy status; Z96.651 Presence of right artificial knee joint; Z86.711 Personal history of pulmonary embolism; X58.XXXA Exposure to other specified factors, initial encounter
CPT/HCPCS: 36415; 80053; 83735; 85025; 70450; 99284; 96374; J2270; J1170

== ENCOUNTER 2020-04-25 13:27 | Emergency (ER) | payer MEDICARE, OTHER ==
[2020-04-25 14:02] VITALS: RESP 18
--- NOTE | 2020-04-25 15:02 | ED ---
General Adult HPI - General Chief complaint: Psychiatric Symptoms Stated complaint: Mental Health Time Seen by Provider: 04/25/20 14:00 Source: patient, EMS, RN notes reviewed, old records reviewed Mode of arrival: EMS Limitations: no limitations - History of Present Illness Initial comments: This is a 60-year-old female who presents emergency department stating that she is having more more thoughts of suicide and she keeps thinking about taking all of her Ativan because she sick of being in pain with her knee. Patient states she has no appointment with her psychiatrist on May 12 and with the orthopedic surgeon on May 02. Patient has no physical complaints today. Patient states she has not taking any extra medications today patient denies any alcohol patient denies any illegal drugs. Patient denies any chest pain difficulty breathing first breath per patient denies any recent fever chills or cough per patient denies abdominal pain patient denies nausea vomiting or diarrhea. - Related Data Home Medications Medication Instructions Recorded Confirmed Carvedilol [Coreg] 25 mg PO BID 06/07/17 04/03/20 Levothyroxine Sodium [Synthroid] 137 mcg PO DAILY 10/20/17 04/03/20 Montelukast [Singulair] 10 mg PO DAILY 06/28/18 04/03/20 DULoxetine HCL [Cymbalta] 60 mg PO BID 08/15/18 04/03/20 rOPINIRole HCL [Requip] 4 mg PO BID 11/18/18 04/03/20 Torsemide [Demadex] 50 mg PO SUTUTHSA 12/15/18 04/03/20 Torsemide [Demadex] 100 mg PO MOWEFR 12/15/18 04/03/20 Loperamide [Imodium] 4 mg PO QID PRN 04/22/19 04/03/20 Acetaminophen [Tylenol 8 Hour] 650 mg PO TID 08/14/19 04/03/20 Loratadine [Claritin] 10 mg PO DAILY 08/14/19 04/03/20 Magnesium Oxide [Mag-Ox] 400 mg PO DAILY 08/14/19 04/03/20 Multivitamins, Thera [Multivitamin 1 tab PO DAILY 08/14/19 04/03/20 (formulary)] Omeprazole 20 mg PO DAILY 08/14/19 04/03/20 allopurinoL [Zyloprim] 100 mg PO DAILY 08/14/19 04/03/20 Celecoxib [CeleBREX] 400 mg PO DAILY 01/19/20 04/03/20 Cholecalciferol (Vitamin D3) 125 mcg PO DAILY 01/19/20 04/03/20 [Vitamin D3] Ferrous Gluconate 324 mg PO BID 01/19/20 04/03/20 Gabapentin [Neurontin] 400 mg PO TID 01/19/20 04/03/20 LORazepam [Ativan] 1 mg PO TID PRN 01/19/20 04/03/20 Melatonin 10 mg PO HS PRN 01/19/20 04/03/20 Tolnaftate [Tinactin] 1 applic TOPICAL DAILY 01/19/20 04/03/20 lamoTRIgine [LaMICtal] 150 mg PO DAILY 01/19/20 04/03/20 Diclofenac Sodium [Voltaren Gel] 4 gram TOPICAL QID PRN 04/03/20 04/03/20 Paliperidone IM [Invega Sustenna] 156 mg IM Q28D 04/03/20 04/03/20 Potassium Chloride ER [K-Dur 10] 10 meq PO DAILY 04/03/20 04/03/20 Previous Rx's Medication Instructions Recorded Nystatin 100,000 Unit/gm Powd 1 applic TOPICAL BID 7 Days #15 gm 10/14/19 [Mycostatin Powder] Cephalexin [Keflex] 500 mg PO Q6HR 5 Days #20 cap 04/03/20 HYDROcodone/APAP 5-325MG [[place] 1 tab PO Q6HR PRN 3 Days #12 tab 04/03/20 5-325] Cyclobenzaprine [Flexeril] 10 mg PO BID PRN 2 Days #4 tab 04/19/20 Allergies Allergy/AdvReac Type Severity Reaction Status Date / Time buspirone [From BuSpar] Allergy Rash/Hives Verified 04/25/20 17:07 haloperidol [From Haldol] Allergy Swelling Verified 04/25/20 17:07 hydroxyzine [From Vistaril] Allergy Rash/Hives Verified 04/25/20 17:07 iodine Allergy Swelling Verified 04/25/20 17:07 Penicillins Allergy Swelling Verified 04/25/20 17:07 prochlorperazine Allergy Rash/Hives Verified 04/25/20 17:07 Sulfa (Sulfonamide Allergy Rash/Hives Verified 04/25/20 17:07 Antibiotics) Tetanus Vaccines and Toxoid Allergy Rash/Hives Verified 04/25/20 17:07 [Tetanus Vaccines & Toxoid] trifluoperazine HCl Allergy Unknown Verified 04/25/20 17:07 [From Stelazine] Review of Systems ROS Statement: Those systems with pertinent positive or pertinent negative responses have been documented in the HPI. ROS Other: All systems not noted in ROS Statement are negative. Past Medical History Past Medical History: Asthma, Heart Failure, COPD, Diabetes Mellitus, GERD/Reflux, Hyperlipidemia, Hypertension, Musculoskeletal Disorder, Osteoarthritis (OA), Pneumonia, Pulmonary Embolus (PE), Thyroid Disorder Additional Past Medical History / Comment(s): chronic low back pain, herniated discs, RLS, leg edema, anemia, gout bilateral feet, hypothyroid, UTIs, hx cellulitis, cataracts, macular degeneration History of Any Multi-Drug Resistant Organisms: None Reported Past Surgical History: Bariatric Surgery, Heart Catheterization, Hernia Repair, Orthopedic Surgery Additional Past Surgical History / Comment(s): Total Right knee replacement, 3 abdominal hernia repairs, left hip repair d/t fracture, gastric bypass/revision, colonoscopy. Past Anesthesia/Blood Transfusion Reactions: No Reported Reaction Past Psychological History: Anxiety, Bipolar, Depression, Panic Disorder, PTSD Smoking Status: Never smoker Past Alcohol Use History: Occasional Past Drug Use History: None Reported - Past Family History Mother Family Medical History: Cancer Additional Family Medical History / Comment(s): lung cancer Father Family Medical History: Diabetes Mellitus Additional Family Medical History / Comment(s): "my dad from a blood clot that traveled from his leg to his lung and also caused a heart attack." Brother(s) Family Medical History: Diabetes Mellitus Sister(s) Additional Family Medical History / Comment(s): "her heart races too fast" General Exam - General Exam Comments Initial Comments: GENERAL: Patient is well-developed and well-nourished. Patient is nontoxic and well- hydrated and is in no acute distress. ENT: Neck is soft and supple. No significant lymphadenopathy is noted. Oropharynx is clear. Moist mucous membranes. Neck has full range of motion without eliciting any pain. EYES: The sclera were anicteric and conjunctiva were pink and moist. Extraocular movements were intact and pupils were equal round and reactive to light. Eyelids were unremarkable. PULMONARY: Unlabored respirations. Good breath sounds bilaterally. No audible rales rhonchi or wheezing was noted. CARDIOVASCULAR: There is a regular rate and rhythm without any murmurs gallops or rubs. ABDOMEN: Patient is morbidly obese. Soft and nontender with normal bowel sounds. SKIN: Skin is clear with no lesions or rashes and otherwise unremarkable. NEUROLOGIC: Patient is alert and oriented x3. Cranial nerves II through XII are grossly intact. Motor and sensory are also intact. Normal speech, volume and content. Symmetrical smile. MUSCULOSKELETAL: Normal extremities with adequate strength and full range of motion. LYMPHATICS: No significant lymphadenopathy is noted PSYCHIATRIC: Patient states she is depressed and she is thinking of suicide by taking all of her Ativan. Limitations: no limitations Course Vital Signs 04/25/20 13:58 Temperature 98.1 F Pulse Rate 85 Respiratory 18 Rate Blood Pressure 137/85 O2 Sat by Pulse 99 Oximetry Medical Decision Making - Medical Decision Making EPS evaluated the patient and determined the patient could go home. Patient was giving a safety plan and she agreed to safety plan. - Lab Data Lab Results 04/25/20 Range/Units 15:39 Urine Opiates Screen Not Detected (NotDetected) Ur Oxycodone Screen Not Detected (NotDetected) Urine Methadone Screen Not Detected (NotDetected) Ur Propoxyphene Screen Not Detected (NotDetected) Ur Barbiturates Screen Not Detected (NotDetected) U Tricyclic Antidepress Not Detected (NotDetected) Ur Phencyclidine Scrn Not Detected (NotDetected) Ur Amphetamines Screen Not Detected (NotDetected) U Methamphetamines Scrn Not Detected (NotDetected) U Benzodiazepines Scrn Detected H (NotDetected) Urine Cocaine Screen Not Detected (NotDetected) U Marijuana (THC) Screen Not Detected (NotDetected) Disposition Clinical Impression: Situational depression Disposition: HOME SELF-CARE Condition: Good Instructions (If sedation given, give patient instructions): Depression (ED) Is patient prescribed a controlled substance at d/c from ED?: No Referrals: Beau Jade MD [Primary Care Provider] - 1-2 days Time of Disposition: 17:17
[2020-04-25 16:15] LABS: Amphetamine Screen,Urine Not Detected (NotDetected); Barbiturate Screen,Urine Not Detected (NotDetected); Benzodiazepines Screen,Urine Detected (NotDetected); Cocaine Screen,Urine Not Detected (NotDetected); Methadone Screen, Urine Not Detected (NotDetected); Opiate Screen,Urine Not Detected (NotDetected); Oxycodone Screen, Urine Not Detected (NotDetected); Phencyclidine Screen,Urine Not Detected (NotDetected); Tricyclic Antidepressant,Urine Not Detected (NotDetected); Urn Cannabinoid Scrn Not Detected (NotDetected)
[2020-04-25 18:00] VITALS: BP 149/87; PULSE 74; TEMP 98.7
== END 2020-04-25 17:49 | disposition home or self-care (01) ==
LOC: EC 13:27
DX: F43.21 Adjustment disorder with depressed mood (principal); R45.851 Suicidal ideations; F41.0 Panic disorder [episodic paroxysmal anxiety]; F43.10 Post-traumatic stress disorder, unspecified; E66.01 Morbid (severe) obesity due to excess calories; E03.9 Hypothyroidism, unspecified; E78.5 Hyperlipidemia, unspecified; G25.81 Restless legs syndrome; G89.29 Other chronic pain; H35.30 Unspecified macular degeneration; I11.0 Hypertensive heart disease with heart failure; I50.9 Heart failure, unspecified; K21.9 Gastro-esophageal reflux disease without esophagitis; M10.9 Gout, unspecified; M19.90 Unspecified osteoarthritis, unspecified site; E11.9 Type 2 diabetes mellitus without complications; M54.5 Low back pain; D64.9 Anemia, unspecified; Z79.890 Hormone replacement therapy; Z79.1 Long term (current) use of non-steroidal anti-inflammatories (NSAID); Z79.899 Other long term (current) drug therapy; Z68.44 Body mass index [BMI] 60.0-69.9, adult; Z88.8 Allergy status to other drugs, medicaments and biological substances; Z88.2 Allergy status to sulfonamides; Z88.7 Allergy status to serum and vaccine; Z91.048 Other nonmedicinal substance allergy status; Z86.711 Personal history of pulmonary embolism; Z88.0 Allergy status to penicillin; Z96.651 Presence of right artificial knee joint; Z98.84 Bariatric surgery status; Z95.5 Presence of coronary angioplasty implant and graft; Z79.84 Long term (current) use of oral hypoglycemic drugs
CPT/HCPCS: 80306; 82075; 99285

== ENCOUNTER 2020-04-28 14:23 | Emergency (ER) | payer MEDICARE, OTHER ==
[2020-04-28 14:33] VITALS: RESP 20; TEMP 97
--- NOTE | 2020-04-28 14:56 | ED ---
General Adult HPI - General Chief complaint: Psychiatric Symptoms Stated complaint: Mental health Time Seen by Provider: 04/28/20 14:25 Source: patient, EMS, RN notes reviewed, old records reviewed Mode of arrival: EMS Limitations: altered mental status - History of Present Illness Initial comments: 60-year-old female presenting for suicide attempt, overdose. Patient states she took multiple Xanax as well as 10 Tylenol and 2 tramadol. She took these medications just prior to arrival while riding on the bus. She states this was a suicide attempt. Denies any other ingestion or self-harm. - Related Data Home Medications Medication Instructions Recorded Confirmed Carvedilol [Coreg] 25 mg PO BID 06/07/17 04/28/20 Levothyroxine Sodium [Synthroid] 137 mcg PO DAILY 10/20/17 04/28/20 Montelukast [Singulair] 10 mg PO DAILY 06/28/18 04/28/20 DULoxetine HCL [Cymbalta] 60 mg PO BID 08/15/18 04/28/20 rOPINIRole HCL [Requip] 4 mg PO BID 11/18/18 04/28/20 Torsemide [Demadex] 50 mg PO SUTUTHSA 12/15/18 04/28/20 Torsemide [Demadex] 100 mg PO MOWEFR 12/15/18 04/28/20 Loperamide [Imodium] 4 mg PO QID PRN 04/22/19 04/28/20 Acetaminophen [Tylenol 8 Hour] 650 mg PO TID 08/14/19 04/28/20 Loratadine [Claritin] 10 mg PO DAILY 08/14/19 04/28/20 Magnesium Oxide [Mag-Ox] 400 mg PO DAILY 08/14/19 04/28/20 Multivitamins, Thera [Multivitamin 1 tab PO DAILY 08/14/19 04/28/20 (formulary)] Omeprazole 20 mg PO DAILY 08/14/19 04/28/20 allopurinoL [Zyloprim] 100 mg PO DAILY 08/14/19 04/28/20 Celecoxib [CeleBREX] 400 mg PO DAILY 01/19/20 04/28/20 Ferrous Gluconate 324 mg PO BID 01/19/20 04/28/20 Gabapentin [Neurontin] 400 mg PO TID 01/19/20 04/28/20 LORazepam [Ativan] 1 mg PO TID PRN 01/19/20 04/28/20 Melatonin 10 mg PO HS PRN 01/19/20 04/28/20 Tolnaftate [Tinactin] 1 applic TOPICAL DAILY 01/19/20 04/28/20 lamoTRIgine [LaMICtal] 150 mg PO DAILY 01/19/20 04/28/20 Diclofenac Sodium [Voltaren Gel] 4 gram TOPICAL QID PRN 04/03/20 04/28/20 Paliperidone IM [Invega Sustenna] 156 mg IM Q28D 04/03/20 04/28/20 Potassium Chloride ER [K-Dur 10] 10 meq PO DAILY 04/03/20 04/28/20 Cholecalciferol [Vitamin D3 (25 5,000 unit PO DAILY 04/28/20 04/28/20 Mcg = 1000 Iu)] Previous Rx's Medication Instructions Recorded Nystatin 100,000 Unit/gm Powd 1 applic TOPICAL BID 7 Days #15 gm 10/14/19 [Mycostatin Powder] HYDROcodone/APAP 5-325MG [[place] 1 tab PO Q6HR PRN 3 Days #12 tab 04/03/20 5-325] Allergies Allergy/AdvReac Type Severity Reaction Status Date / Time buspirone [From BuSpar] Allergy Rash/Hives Verified 04/28/20 15:10 haloperidol [From Haldol] Allergy Swelling Verified 04/28/20 15:10 hydroxyzine [From Vistaril] Allergy Rash/Hives Verified 04/28/20 15:10 iodine Allergy Swelling Verified 04/28/20 15:10 Penicillins Allergy Swelling Verified 04/28/20 15:10 prochlorperazine Allergy Rash/Hives Verified 04/28/20 15:10 Sulfa (Sulfonamide Allergy Rash/Hives Verified 04/28/20 15:10 Antibiotics) Tetanus Vaccines and Toxoid Allergy Rash/Hives Verified 04/28/20 15:10 [Tetanus Vaccines & Toxoid] trifluoperazine HCl Allergy Unknown Verified 04/28/20 15:10 [From Stelazine] Review of Systems ROS Statement: Those systems with pertinent positive or pertinent negative responses have been documented in the HPI. ROS Other: All systems not noted in ROS Statement are negative. Past Medical History Past Medical History: Asthma, Heart Failure, COPD, Diabetes Mellitus, GERD/Reflux, Hyperlipidemia, Hypertension, Musculoskeletal Disorder, Osteoarthri tis (OA), Pneumonia, Pulmonary Embolus (PE), Thyroid Disorder Additional Past Medical History / Comment(s): chronic low back pain, herniated discs, RLS, leg edema, anemia, gout bilateral feet, hypothyroid, UTIs, hx cellulitis, cataracts, macular degeneration History of Any Multi-Drug Resistant Organisms: None Reported Past Surgical History: Bariatric Surgery, Heart Catheterization, Hernia Repair, Orthopedic Surgery Additional Past Surgical History / Comment(s): Total Right knee replacement, 3 abdominal hernia repairs, left hip repair d/t fracture, gastric bypass/revision, colonoscopy. Past Anesthesia/Blood Transfusion Reactions: No Reported Reaction Past Psychological History: Anxiety, Bipolar, Depression, Panic Disorder, PTSD Smoking Status: Never smoker Past Alcohol Use History: Occasional Past Drug Use History: None Reported - Past Family History Mother Family Medical History: Cancer Additional Family Medical History / Comment(s): lung cancer Father Family Medical History: Diabetes Mellitus Additional Family Medical History / Comment(s): "my dad from a blood clot that traveled from his leg to his lung and also caused a heart attack." Brother(s) Family Medical History: Diabetes Mellitus Sister(s) Additional Family Medical History / Comment(s): "her heart races too fast" General Exam Limitations: altered mental status General appearance: alert, in no apparent distress Head exam: Present: atraumatic, normocephalic Eye exam: Present: normal appearance, PERRL ENT exam: Present: normal exam Neck exam: Present: normal inspection. Absent: tenderness, meningismus Respiratory exam: Present: normal lung sounds bilaterally. Absent: respiratory distress, wheezes Cardiovascular Exam: Present: regular rate, normal rhythm GI/Abdominal exam: Present: soft. Absent: distended, tenderness, guarding Extremities exam: Present: normal inspection, normal capillary refill. Absent: pedal edema Neurological exam: Present: alert Psychiatric exam: Present: depressed, flat affect, suicidal ideation Skin exam: Present: warm, dry, intact. Absent: cyanosis, diaphoretic Course Vital Signs 04/28/20 04/28/20 04/28/20 14:26 14:56 15:00 Temperature 97 F L Pulse Rate 91 85 Respiratory 20 Rate Blood Pressure 130/66 123/86 O2 Sat by Pulse 96 93 L Oximetry EKG Findings - EKG Comments: EKG Findings:: EKG: Normal sinus rhythm, rate of 86, DE interval 154, QRS duration 80, QTC 426, no ST segment elevation. Medical Decision Making - Medical Decision Making 51-year-old female with suicide attempt. Patient well-known to this emergency department. She is agitated throughout her stay in the emergency department, constantly screaming from the room. She is stating that she wants to go home. Her Tylenol level is nondetectable. She is alert and oriented throughout her stay. She has mild anemia otherwise stable and unremarkable labs. She is evaluated by EPS and is agreeable to safety plan. She has signed a safety plan in the emergency department. She has a legal guardian and is currently residing at a jail. She will return with worsening or changing symptoms. - Lab Data Result diagrams: 04/28/20 14:57 04/28/20 14:57 Lab Results 04/28/20 04/28/20 04/28/20 Range/Units 14:57 14:57 15:25 WBC 8.4 (3.8-10.6) k/uL RBC 3.56 L (3.80-5.40) m/uL Hgb 10.3 L (11.4-16.0) gm/dL Hct 32.9 L (34.0-46.0) % MCV 92.4 (80.0-100.0) fL MCH 29.0 (25.0-35.0) pg MCHC 31.4 (31.0-37.0) g/dL RDW 13.7 (11.5-15.5) % Plt Count 303 (150-450) k/uL Neutrophils % 65 % Lymphocytes % 23 % Monocytes % 5 % Eosinophils % 2 % Basophils % 1 % Neutrophils # 5.5 (1.3-7.7) k/uL Lymphocytes # 1.9 (1.0-4.8) k/uL Monocytes # 0.5 (0-1.0) k/uL Eosinophils # 0.2 (0-0.7) k/uL Basophils # 0.0 (0-0.2) k/uL Hypochromasia Slight Sodium 134 L (137-145) mmol/L Potassium 4.6 (3.5-5.1) mmol/L Chloride 104 (98-107) mmol/L Carbon Dioxide 25 (22-30) mmol/L Anion Gap 5 mmol/L BUN 20 H (7-17) mg/dL Creatinine 0.71 (0.52-1.04) mg/dL Est GFR (CKD-EPI)AfAm >90 (>60 ml/min/1.73 sqM) Est GFR (CKD-EPI)NonAf >90 (>60 ml/min/1.73 sqM) Glucose 95 (74-99) mg/dL Calcium 9.0 (8.4-10.2) mg/dL Total Bilirubin 0.2 (0.2-1.3) mg/dL AST 28 (14-36) U/L ALT 16 (4-34) U/L Alkaline Phosphatase 89 (38-126) U/L Total Protein 6.3 (6.3-8.2) g/dL Albumin 3.7 (3.5-5.0) g/dL Salicylates <1.0 mg/dL Urine Opiates Screen Not Detected (NotDetected) Ur Oxycodone Screen Not Detected (NotDetected) Urine Methadone Screen Not Detected (NotDetected) Ur Propoxyphene Screen Not Detected (NotDetected) Acetaminophen <10.0 ug/mL Ur Barbiturates Screen Not Detected (NotDetected) U Tricyclic Antidepress Not Detected (NotDetected) Ur Phencyclidine Scrn Not Detected (NotDetected) Ur Amphetamines Screen Not Detected (NotDetected) U Methamphetamines Scrn Not Detected (NotDetected) U Benzodiazepines Scrn Detected H (NotDetected) Urine Cocaine Screen Not Detected (NotDetected) U Marijuana (THC) Screen Not Detected (NotDetected) Serum Alcohol <10 mg/dL Disposition Clinical Impression: Acute anxiety, Depression Disposition: HOME SELF-CARE Condition: Fair Instructions (If sedation given, give patient instructions): Depression (ED) Additional Instructions: Please follow up with [facility] mental health and her primary care physician. Is patient prescribed a controlled substance at d/c from ED?: No Referrals: Beau Jade MD [Primary Care Provider] - 1-2 days Time of Disposition: 18:51
[2020-04-28 15:16] LABS: ALT 16 U/L (4-34); AST 28 U/L (14-36); Acetaminophen <10.0 ug/mL; African American GFR (CKD) >90 (>60 ml/min/1.73 sqM); Albumin 3.7 g/dL (3.5-5.0); Alcohol <10 mg/dL; Alkaline Phosphatase 89 U/L (38-126); Anion Gap 5 mmol/L; Blood Urea Nitrogen 20 mg/dL (7-17); Carbon Dioxide 25 mmol/L (22-30); Chloride 104 mmol/L (98-107); Glucose 95 mg/dL (74-99); Non-African American GFR(CKD) >90 (>60 ml/min/1.73 sqM); Potassium 4.6 mmol/L (3.5-5.1); Salicylate <1.0 mg/dL; Sodium 134 mmol/L (137-145); Total Bilirubin 0.2 mg/dL (0.2-1.3); Total Protein 6.3 g/dL (6.3-8.2)
[2020-04-28 15:17] LABS: Basophils % (A) 1 %; Eosinophils # (A) 0.2 k/uL (0-0.7); Eosinophils % (A) 2 %; HCT 32.9 % (34.0-46.0); HGB 10.3 gm/dL (11.4-16.0); Hypochromasia Slight; Lymphocytes # (A) 1.9 k/uL (1.0-4.8); Lymphocytes % (A) 23 %; MCHC 31.4 g/dL (31.0-37.0); MCV 92.4 fL (80.0-100.0); Mean Platelet Volume 7.9; Monocytes # (A) 0.5 k/uL (0-1.0); Monocytes % (A) 5 %; Neutrophils # (A) 5.5 k/uL (1.3-7.7); Neutrophils % (A) 65 %; Platelet Count 303 k/uL (150-450); RBC 3.56 m/uL (3.80-5.40); RDW 13.7 % (11.5-15.5); WBC 8.4 k/uL (3.8-10.6)
[2020-04-28 15:46] LABS: Amphetamine Screen,Urine Not Detected (NotDetected); Barbiturate Screen,Urine Not Detected (NotDetected); Benzodiazepines Screen,Urine Detected (NotDetected); Cocaine Screen,Urine Not Detected (NotDetected); Methadone Screen, Urine Not Detected (NotDetected); Opiate Screen,Urine Not Detected (NotDetected); Oxycodone Screen, Urine Not Detected (NotDetected); Phencyclidine Screen,Urine Not Detected (NotDetected); Tricyclic Antidepressant,Urine Not Detected (NotDetected); Urn Cannabinoid Scrn Not Detected (NotDetected)
[2020-04-28] MEDS ORDERED: rOPINIRole HCL 4 MG TABLET PO STA (15:51)
[2020-04-28 20:23] VITALS: BP 163/84; PULSE 88
== END 2020-04-28 20:10 | disposition home or self-care (01) ==
LOC: EC 14:23
DX: F41.9 Anxiety disorder, unspecified (principal); F32.9 Major depressive disorder, single episode, unspecified; R45.851 Suicidal ideations; D64.9 Anemia, unspecified; R41.82 Altered mental status, unspecified; E03.9 Hypothyroidism, unspecified; E78.5 Hyperlipidemia, unspecified; G25.81 Restless legs syndrome; I11.0 Hypertensive heart disease with heart failure; I50.9 Heart failure, unspecified; K21.9 Gastro-esophageal reflux disease without esophagitis; M19.90 Unspecified osteoarthritis, unspecified site; G89.29 Other chronic pain; M54.5 Low back pain; M10.9 Gout, unspecified; Z79.890 Hormone replacement therapy; Z79.1 Long term (current) use of non-steroidal anti-inflammatories (NSAID); Z79.899 Other long term (current) drug therapy; Z86.711 Personal history of pulmonary embolism; Z98.84 Bariatric surgery status; Z88.8 Allergy status to other drugs, medicaments and biological substances; Z88.0 Allergy status to penicillin; Z88.7 Allergy status to serum and vaccine; Z91.048 Other nonmedicinal substance allergy status; Z88.2 Allergy status to sulfonamides; Z95.5 Presence of coronary angioplasty implant and graft; Z96.653 Presence of artificial knee joint, bilateral
CPT/HCPCS: 82075; 36415; 93005; 80053; 85025; 80306; 83520; 99285; G0480 ×2; 80320; 80329

== ENCOUNTER → 2020-04-28 | Outpatient (CLI) | payer MEDICARE, OTHER ==
--- NOTE | 2020-04-28 13:44 | MM ---
Reason for exam: screening (asymptomatic). History: Patient is postmenopausal and is nulliparous. Family history of breast cancer in maternal grandmother at age 50, breast cancer in maternal cousin at age 50, and unknown cancer in aunt. Physical Findings: A clinical breast exam by your physician is recommended on an annual basis and results should be correlated with mammographic findings. MG 3D Screening Mammo W/Cad Bilateral CC, MLO, and XCCL view(s) were taken. There are scattered fibroglandular densities. Limited pecs on the MLO views due to severely large body habitus. Scattered dermal calcifications, but with a faint group of punctate calcifications upper outer quadrant left breast anterior to middle depth. 6 month follow up recommended due to very large size. ASSESSMENT: Probably benign, BI-RAD 3 RECOMMENDATION: Follow-up diagnostic mammogram of the left breast in 6 months.
== END | disposition home or self-care (01) ==
LOC: RADMAMWWP 12:08
PROVIDERS: ATTEND General Practice
DX: Z12.31 Encounter for screening mammogram for malignant neoplasm of breast (principal); K12.30 Oral mucositis (ulcerative), unspecified; R19.7 Diarrhea, unspecified; Z12.11 Encounter for screening for malignant neoplasm of colon
CPT/HCPCS: 77063; 77067

== ENCOUNTER 2020-05-04 16:32 | Emergency (ER) | payer MEDICARE, OTHER ==
[2020-05-04 16:42] VITALS: BP 146/88; PULSE 91; RESP 20; TEMP 98.3
--- NOTE | 2020-05-04 17:46 | ED ---
Psych HPI - General Chief Complaint: Psychiatric Symptoms Stated Complaint: Mental health Time Seen by Provider: 05/04/20 16:44 Source: patient Mode of arrival: ambulatory - History of Present Illness Initial Comments: T10 year female well-known to emergency department presenting today for chief complaint of I want to end it all be with by mom. Patient states that she has no plan was to see and be with her mother who is . Patient has no additional complaints denies homicidal ideation patient frequently comes emergency Department for this complaint she does live in a assisted. Remaining review of system negative - Related Data Home Medications Medication Instructions Recorded Confirmed Carvedilol [Coreg] 25 mg PO BID 06/07/17 04/28/20 Levothyroxine Sodium [Synthroid] 137 mcg PO DAILY 10/20/17 04/28/20 Montelukast [Singulair] 10 mg PO DAILY 06/28/18 04/28/20 DULoxetine HCL [Cymbalta] 60 mg PO BID 08/15/18 04/28/20 rOPINIRole HCL [Requip] 4 mg PO BID 11/18/18 04/28/20 Torsemide [Demadex] 50 mg PO SUTUTHSA 12/15/18 04/28/20 Torsemide [Demadex] 100 mg PO MOWEFR 12/15/18 04/28/20 Loperamide [Imodium] 4 mg PO QID PRN 04/22/19 04/28/20 Acetaminophen [Tylenol 8 Hour] 650 mg PO TID 08/14/19 04/28/20 Loratadine [Claritin] 10 mg PO DAILY 08/14/19 04/28/20 Magnesium Oxide [Mag-Ox] 400 mg PO DAILY 08/14/19 04/28/20 Multivitamins, Thera [Multivitamin 1 tab PO DAILY 08/14/19 04/28/20 (formulary)] Omeprazole 20 mg PO DAILY 08/14/19 04/28/20 allopurinoL [Zyloprim] 100 mg PO DAILY 08/14/19 04/28/20 Celecoxib [CeleBREX] 400 mg PO DAILY 01/19/20 04/28/20 Ferrous Gluconate 324 mg PO BID 01/19/20 04/28/20 Gabapentin [Neurontin] 400 mg PO TID 01/19/20 04/28/20 LORazepam [Ativan] 1 mg PO TID PRN 01/19/20 04/28/20 Melatonin 10 mg PO HS PRN 01/19/20 04/28/20 Tolnaftate [Tinactin] 1 applic TOPICAL DAILY 01/19/20 04/28/20 lamoTRIgine [LaMICtal] 150 mg PO DAILY 01/19/20 04/28/20 Diclofenac Sodium [Voltaren Gel] 4 gram TOPICAL QID PRN 04/03/20 04/28/20 Paliperidone IM [Invega Sustenna] 156 mg IM Q28D 04/03/20 04/28/20 Potassium Chloride ER [K-Dur 10] 10 meq PO DAILY 04/03/20 04/28/20 Cholecalciferol [Vitamin D3 (25 5,000 unit PO DAILY 04/28/20 04/28/20 Mcg = 1000 Iu)] Previous Rx's Medication Instructions Recorded Nystatin 100,000 Unit/gm Powd 1 applic TOPICAL BID 7 Days #15 gm 10/14/19 [Mycostatin Powder] HYDROcodone/APAP 5-325MG [[place] 1 tab PO Q6HR PRN 3 Days #12 tab 04/03/20 5-325] Allergies Allergy/AdvReac Type Severity Reaction Status Date / Time buspirone [From BuSpar] Allergy Rash/Hives Verified 05/04/20 16:42 haloperidol [From Haldol] Allergy Swelling Verified 05/04/20 16:42 hydroxyzine [From Vistaril] Allergy Rash/Hives Verified 05/04/20 16:42 iodine Allergy Swelling Verified 05/04/20 16:42 Penicillins Allergy Swelling Verified 05/04/20 16:42 prochlorperazine Allergy Rash/Hives Verified 05/04/20 16:42 Sulfa (Sulfonamide Allergy Rash/Hives Verified 05/04/20 16:42 Antibiotics) Tetanus Vaccines and Toxoid Allergy Rash/Hives Verified 05/04/20 16:42 [Tetanus Vaccines & Toxoid] trifluoperazine HCl Allergy Unknown Verified 05/04/20 16:42 [From Stelazine] Review of Systems ROS Statement: Those systems with pertinent positive or pertinent negative responses have been documented in the HPI. ROS Other: All systems not noted in ROS Statement are negative. Past Medical History Past Medical History: Asthma, Heart Failure, COPD, Diabetes Mellitus, GERD/Reflux, Hyperlipidemia, Hypertension, Musculoskeletal Disorder, Osteoa rthritis (OA), Pneumonia, Pulmonary Embolus (PE), Thyroid Disorder Additional Past Medical History / Comment(s): chronic low back pain, herniated discs, RLS, leg edema, anemia, gout bilateral feet, hypothyroid, UTIs, hx cellulitis, cataracts, macular degeneration History of Any Multi-Drug Resistant Organisms: None Reported Past Surgical History: Bariatric Surgery, Heart Catheterization, Hernia Repair, Orthopedic Surgery Additional Past Surgical History / Comment(s): Total Right knee replacement, 3 abdominal hernia repairs, left hip repair d/t fracture, gastric bypass/revision, colonoscopy. Past Anesthesia/Blood Transfusion Reactions: No Reported Reaction Past Psychological History: Anxiety, Bipolar, Depression, Panic Disorder, PTSD Smoking Status: Never smoker Past Alcohol Use History: Occasional Past Drug Use History: None Reported - Past Family History Mother Family Medical History: Cancer Additional Family Medical History / Comment(s): lung cancer Father Family Medical History: Diabetes Mellitus Additional Family Medical History / Comment(s): "my dad from a blood clot that traveled from his leg to his lung and also caused a heart attack." Brother(s) Family Medical History: Diabetes Mellitus Sister(s) Additional Family Medical History / Comment(s): "her heart races too fast" General Exam - General Exam Comments Initial Comments: General: The patient is awake and alert, in no distress, and does not appear acutely ill. Eye: +3 mm pupils are equal, round and reactive to light, extra-ocular movements are intact. No nystagmus. There is normal conjunctiva bilaterally. No signs of icterus. Ears, nose, mouth and throat: There are moist mucous membranes and no oral lesions. Neck: The neck is supple, there is no tenderness or JVD. Cardiovascular: There is a regular rate and rhythm. No murmur, rub or gallop is appreciated. Respiratory: Lungs are clear to auscultation, respirations are non-labored, breath sounds are equal. No wheezes, stridor, rales, or rhonchi. Gastrointestinal: Soft, non-distended, non-tender abdomen without masses or organomegaly noted. There is no rebound or guarding present. Musculoskeletal: Normal ROM, no tenderness. Strength 5/5. Sensation intact. Radial pulses equal bilaterally 2+. Neurological: A&O x 3. CN II-XII intact grossly, There are no obvious motor or sensory deficits. Coordination appears grossly intact. Speech is normal. Skin: Skin is warm and dry and no rashes or lesions are noted. Psychiatric: Yelling Limitations: no limitations Course Vital Signs 05/04/20 16:39 Temperature 98.3 F Pulse Rate 91 Respiratory 20 Rate Blood Pressure 146/88 O2 Sat by Pulse 98 Oximetry Medical Decision Making - Medical Decision Making Patient complaining of suicidal ideation on and off wants to be with her mom, misses her. Kole evaluated by EPS after being medically cleared. Patient evalulated by attending Dr. Cortés. patient evaluated by eps who recommended discharge. Guardian was contacted who was agreeable to care plan and called patient cab. Kole discharged appearing well. Disposition Clinical Impression: Depression Disposition: HOME SELF-CARE Condition: Good Instructions (If sedation given, give patient instructions): Depression (ED) Additional Instructions: Please use medication as discussed. Please follow-up with family doctor in the next 2 days. Please return to emergency room if the symptoms increase or worsen or for any other concerns. Is patient prescribed a controlled substance at d/c from ED?: No Referrals: Beau Jade MD [Primary Care Provider] - 1-2 days Time of Disposition: 17:46
== END 2020-05-04 18:31 | disposition home or self-care (01) ==
LOC: EC 16:32
DX: F32.9 Major depressive disorder, single episode, unspecified (principal); R45.851 Suicidal ideations; F41.0 Panic disorder [episodic paroxysmal anxiety]; F43.10 Post-traumatic stress disorder, unspecified; I11.0 Hypertensive heart disease with heart failure; I50.9 Heart failure, unspecified; K21.9 Gastro-esophageal reflux disease without esophagitis; E78.5 Hyperlipidemia, unspecified; M19.90 Unspecified osteoarthritis, unspecified site; G89.29 Other chronic pain; M54.5 Low back pain; G25.81 Restless legs syndrome; D64.9 Anemia, unspecified; M10.9 Gout, unspecified; E03.9 Hypothyroidism, unspecified; Z79.899 Other long term (current) drug therapy; Z79.890 Hormone replacement therapy; Z88.7 Allergy status to serum and vaccine; Z88.2 Allergy status to sulfonamides; Z91.048 Other nonmedicinal substance allergy status; Z88.8 Allergy status to other drugs, medicaments and biological substances; Z88.0 Allergy status to penicillin; Z86.711 Personal history of pulmonary embolism; Z95.5 Presence of coronary angioplasty implant and graft; Z96.651 Presence of right artificial knee joint
CPT/HCPCS: 82075; 99285

== ENCOUNTER 2020-05-05 00:54 | Emergency (ER) | payer MEDICARE, OTHER ==
[2020-05-05 01:06] VITALS: BP 196/98; PULSE 91; RESP 18; TEMP 97.5
--- NOTE | 2020-05-05 01:12 | ED ---
General Adult HPI - General Stated complaint: Mental Health Time Seen by Provider: 05/05/20 00:56 Source: patient, EMS, RN notes reviewed Mode of arrival: EMS - History of Present Illness Initial comments: 60-year-old female with several medical problems presents to the emergency department for a chief complaint of chronic stable suicidal thoughts. Patient is well-known to this emergency department for similar complaints. She was also noted to report that her neighbor was being noisy and she does not like them. Patient was seen in the emergency room earlier this evening and evaluated by EPS, cleared medically for discharge home. Patient denies plan of suicide.Patient has no other complaints at this time including shortness of breath, chest pain, abdominal pain, nausea or vomiting, headache, or visual changes. - Related Data Home Medications Medication Instructions Recorded Confirmed Carvedilol [Coreg] 25 mg PO BID 06/07/17 04/28/20 Levothyroxine Sodium [Synthroid] 137 mcg PO DAILY 10/20/17 04/28/20 Montelukast [Singulair] 10 mg PO DAILY 06/28/18 04/28/20 DULoxetine HCL [Cymbalta] 60 mg PO BID 08/15/18 04/28/20 rOPINIRole HCL [Requip] 4 mg PO BID 11/18/18 04/28/20 Torsemide [Demadex] 50 mg PO SUTUTHSA 12/15/18 04/28/20 Torsemide [Demadex] 100 mg PO MOWEFR 12/15/18 04/28/20 Loperamide [Imodium] 4 mg PO QID PRN 04/22/19 04/28/20 Acetaminophen [Tylenol 8 Hour] 650 mg PO TID 08/14/19 04/28/20 Loratadine [Claritin] 10 mg PO DAILY 08/14/19 04/28/20 Magnesium Oxide [Mag-Ox] 400 mg PO DAILY 08/14/19 04/28/20 Multivitamins, Thera [Multivitamin 1 tab PO DAILY 08/14/19 04/28/20 (formulary)] Omeprazole 20 mg PO DAILY 08/14/19 04/28/20 allopurinoL [Zyloprim] 100 mg PO DAILY 08/14/19 04/28/20 Celecoxib [CeleBREX] 400 mg PO DAILY 01/19/20 04/28/20 Ferrous Gluconate 324 mg PO BID 01/19/20 04/28/20 Gabapentin [Neurontin] 400 mg PO TID 01/19/20 04/28/20 LORazepam [Ativan] 1 mg PO TID PRN 01/19/20 04/28/20 Melatonin 10 mg PO HS PRN 01/19/20 04/28/20 Tolnaftate [Tinactin] 1 applic TOPICAL DAILY 01/19/20 04/28/20 lamoTRIgine [LaMICtal] 150 mg PO DAILY 01/19/20 04/28/20 Diclofenac Sodium [Voltaren Gel] 4 gram TOPICAL QID PRN 04/03/20 04/28/20 Paliperidone IM [Invega Sustenna] 156 mg IM Q28D 04/03/20 04/28/20 Potassium Chloride ER [K-Dur 10] 10 meq PO DAILY 04/03/20 04/28/20 Cholecalciferol [Vitamin D3 (25 5,000 unit PO DAILY 04/28/20 04/28/20 Mcg = 1000 Iu)] Previous Rx's Medication Instructions Recorded Nystatin 100,000 Unit/gm Powd 1 applic TOPICAL BID 7 Days #15 gm 10/14/19 [Mycostatin Powder] HYDROcodone/APAP 5-325MG [[place] 1 tab PO Q6HR PRN 3 Days #12 tab 04/03/20 5-325] Allergies Allergy/AdvReac Type Severity Reaction Status Date / Time buspirone [From BuSpar] Allergy Rash/Hives Verified 05/04/20 16:42 haloperidol [From Haldol] Allergy Swelling Verified 05/04/20 16:42 hydroxyzine [From Vistaril] Allergy Rash/Hives Verified 05/04/20 16:42 iodine Allergy Swelling Verified 05/04/20 16:42 Penicillins Allergy Swelling Verified 05/04/20 16:42 prochlorperazine Allergy Rash/Hives Verified 05/04/20 16:42 Sulfa (Sulfonamide Allergy Rash/Hives Verified 05/04/20 16:42 Antibiotics) Tetanus Vaccines and Toxoid Allergy Rash/Hives Verified 05/04/20 16:42 [Tetanus Vaccines & Toxoid] trifluoperazine HCl Allergy Unknown Verified 05/04/20 16:42 [From Stelazine] Review of Systems ROS Statement: Those systems with pertinent positive or pertinent negative responses have been documented in the HPI. ROS Other: All systems not noted in ROS Statement are negative. Past Medical History Past Medical History: Asthma, Heart Failure, COPD, Diabetes Mellitus, GERD/Reflux, Hyperlipidemia, Hypertension, Musculoskeletal Disorder, Osteoarthritis (OA), Pneumonia, Pulmonary Embolus (PE), Thyroid Disorder Additional Past Medical History / Comment(s): chronic low back pain, herniated discs, RLS, leg edema, anemia, gout bilateral feet, hypothyroid, UTIs, hx cellulitis, cataracts, macular degeneration History of Any Multi-Drug Resistant Organisms: None Reported Past Surgical History: Bariatric Surgery, Heart Catheterization, Hernia Repair, Orthopedic Surgery Additional Past Surgical History / Comment(s): Total Right knee replacement, 3 abdominal hernia repairs, left hip repair d/t fracture, gastric bypass/revision, colonoscopy. Past Anesthesia/Blood Transfusion Reactions: No Reported Reaction Past Psychological History: Anxiety, Bipolar, Depression, Panic Disorder, PTSD Smoking Status: Never smoker Past Alcohol Use History: Occasional Past Drug Use History: None Reported - Past Family History Mother Family Medical History: Cancer Additional Family Medical History / Comment(s): lung cancer Father Family Medical History: Diabetes Mellitus Additional Family Medical History / Comment(s): "my dad from a blood clot that traveled from his leg to his lung and also caused a heart attack." Brother(s) Family Medical History: Diabetes Mellitus Sister(s) Additional Family Medical History / Comment(s): "her heart races too fast" General Exam General appearance: alert, in no apparent distress Head exam: Present: atraumatic, normocephalic, normal inspection Eye exam: Present: normal appearance, PERRL, EOMI. Absent: scleral icterus, conjunctival injection, periorbital swelling ENT exam: Present: normal exam, mucous membranes moist Neck exam: Present: normal inspection, full ROM. Absent: tenderness, meningismus, lymphadenopathy Respiratory exam: Present: normal lung sounds bilaterally. Absent: respiratory distress, wheezes, rales, rhonchi, stridor Cardiovascular Exam: Present: regular rate, normal rhythm, normal heart sounds. Absent: systolic murmur, diastolic murmur, rubs, gallop, clicks GI/Abdominal exam: Present: soft, normal bowel sounds. Absent: distended, tenderness, guarding, rebound, rigid Neurological exam: Present: alert Course Vital Signs 05/05/20 00:56 Temperature 97.5 F L Pulse Rate 91 Respiratory 18 Rate Blood Pressure 196/98 O2 Sat by Pulse 96 Oximetry Medical Decision Making - Medical Decision Making Patient presents for EPS evaluation. Patient was evaluated earlier this evening by EPS and medically cleared. As documented patient is well-known to this emergency department for similar complaints. I contacted patient's legal guardian Leann and discussed patient's complaints. She does not want patient evaluated. she would like patient discharged without additional EPS evaluation. Patient was discharged home, cab was paid for. Disposition Clinical Impression: Adjustment reaction of adult life, Personality disorder Disposition: HOME SELF-CARE Condition: Good Instructions (If sedation given, give patient instructions): Depression (ED) Additional Instructions: Please follow up with your doctor in one to 2 days. Return to the emergency room for any worsening symptoms. Is patient prescribed a controlled substance at d/c from ED?: No Referrals: Beau Jade MD [Primary Care Provider] - 1-2 days Time of Disposition: 01:12
== END 2020-05-05 01:20 | disposition home or self-care (01) ==
LOC: EC 00:54
DX: F43.20 Adjustment disorder, unspecified (principal); F60.9 Personality disorder, unspecified; F31.9 Bipolar disorder, unspecified; F41.0 Panic disorder [episodic paroxysmal anxiety]; F43.10 Post-traumatic stress disorder, unspecified; I11.0 Hypertensive heart disease with heart failure; I50.9 Heart failure, unspecified; K21.9 Gastro-esophageal reflux disease without esophagitis; E78.5 Hyperlipidemia, unspecified; E07.9 Disorder of thyroid, unspecified; E03.9 Hypothyroidism, unspecified; G89.29 Other chronic pain; M54.5 Low back pain; D64.9 Anemia, unspecified; M10.9 Gout, unspecified; G25.81 Restless legs syndrome; M19.90 Unspecified osteoarthritis, unspecified site; R45.851 Suicidal ideations; Z79.1 Long term (current) use of non-steroidal anti-inflammatories (NSAID); Z79.890 Hormone replacement therapy; Z79.899 Other long term (current) drug therapy; Z88.8 Allergy status to other drugs, medicaments and biological substances; Z88.2 Allergy status to sulfonamides; Z88.0 Allergy status to penicillin; Z88.7 Allergy status to serum and vaccine; Z96.651 Presence of right artificial knee joint; Z98.84 Bariatric surgery status; Z86.711 Personal history of pulmonary embolism
CPT/HCPCS: 82075; 99284

== ENCOUNTER 2020-05-10 04:13 | Emergency (ER) | payer MEDICARE, OTHER ==
[2020-05-10 04:23] VITALS: RESP 16
[2020-05-10 04:46] LABS: Appearance,Urine Turbid (Clear); Bacteria,Urine Occasional /hpf; Bilirubin,Urine Negative (Negative); Blood,Urine Moderate (Negative); Color,Urine Yellow; Glucose,Urine (UA) Negative (Negative); Ketones,Urine Negative (Negative); Leukocyte Esterase,Urine Large (Negative); Nitrite,Urine Negative (Negative); Protein,Urine Trace (Negative); RBC,Urine 40 /hpf (0-5); Specific Gravity,Urine 1.015 (1.001-1.035); Squamous Epithelial Cell,Urine 1 /hpf (0-4); Urobilinogen,Urine <2.0 mg/dL (<2.0); WBC,Urine >182 /hpf (0-5)
[2020-05-10] MEDS ORDERED: CEPHALEXIN 500MG STARTER PACK 4 CAP BTL PO STA (05:04)
[2020-05-10] MEDS ORDERED: PHENAZOPYRIDINE 100 MG TAB PO STA (05:07)
--- NOTE | 2020-05-10 05:07 | ED ---
Female Urogenital HPI - General Chief complaint: Urogenital Stated complaint: Back pain Time Seen by Provider: 05/10/20 04:23 Source: patient, EMS Mode of arrival: EMS - History of Present Illness Initial comments: Magda is a 60-year-old female who presents the ER today for evaluation of urinary frequency, hesitancy and dysuria. Patient reports she's been go to for couple days but today she noticed some pain in her bilateral flanks. No fevers chills nausea or vomiting. - Related Data Home Medications Medication Instructions Recorded Confirmed Carvedilol [Coreg] 25 mg PO BID 06/07/17 04/28/20 Levothyroxine Sodium [Synthroid] 137 mcg PO DAILY 10/20/17 04/28/20 Montelukast [Singulair] 10 mg PO DAILY 06/28/18 04/28/20 DULoxetine HCL [Cymbalta] 60 mg PO BID 08/15/18 04/28/20 rOPINIRole HCL [Requip] 4 mg PO BID 11/18/18 04/28/20 Torsemide [Demadex] 50 mg PO SUTUTHSA 12/15/18 04/28/20 Torsemide [Demadex] 100 mg PO MOWEFR 12/15/18 04/28/20 Loperamide [Imodium] 4 mg PO QID PRN 04/22/19 04/28/20 Acetaminophen [Tylenol 8 Hour] 650 mg PO TID 08/14/19 04/28/20 Loratadine [Claritin] 10 mg PO DAILY 08/14/19 04/28/20 Magnesium Oxide [Mag-Ox] 400 mg PO DAILY 08/14/19 04/28/20 Multivitamins, Thera [Multivitamin 1 tab PO DAILY 08/14/19 04/28/20 (formulary)] Omeprazole 20 mg PO DAILY 08/14/19 04/28/20 allopurinoL [Zyloprim] 100 mg PO DAILY 08/14/19 04/28/20 Celecoxib [CeleBREX] 400 mg PO DAILY 01/19/20 04/28/20 Ferrous Gluconate 324 mg PO BID 01/19/20 04/28/20 Gabapentin [Neurontin] 400 mg PO TID 01/19/20 04/28/20 LORazepam [Ativan] 1 mg PO TID PRN 01/19/20 04/28/20 Melatonin 10 mg PO HS PRN 01/19/20 04/28/20 Tolnaftate [Tinactin] 1 applic TOPICAL DAILY 01/19/20 04/28/20 lamoTRIgine [LaMICtal] 150 mg PO DAILY 01/19/20 04/28/20 Diclofenac Sodium [Voltaren Gel] 4 gram TOPICAL QID PRN 04/03/20 04/28/20 Paliperidone IM [Invega Sustenna] 156 mg IM Q28D 04/03/20 04/28/20 Potassium Chloride ER [K-Dur 10] 10 meq PO DAILY 04/03/20 04/28/20 Cholecalciferol [Vitamin D3 (25 5,000 unit PO DAILY 04/28/20 04/28/20 Mcg = 1000 Iu)] Previous Rx's Medication Instructions Recorded Nystatin 100,000 Unit/gm Powd 1 applic TOPICAL BID 7 Days #15 gm 10/14/19 [Mycostatin Powder] HYDROcodone/APAP 5-325MG [[place] 1 tab PO Q6HR PRN 3 Days #12 tab 04/03/20 5-325] Cephalexin [Keflex] 500 mg PO Q6HR 7 Days #28 cap 05/10/20 Phenazopyridine HCl [Pyridium] 100 mg PO TID #9 tab 05/10/20 Allergies Allergy/AdvReac Type Severity Reaction Status Date / Time buspirone [From BuSpar] Allergy Rash/Hives Verified 05/10/20 04:24 haloperidol [From Haldol] Allergy Swelling Verified 05/10/20 04:24 hydroxyzine [From Vistaril] Allergy Rash/Hives Verified 05/10/20 04:24 iodine Allergy Swelling Verified 05/10/20 04:24 Penicillins Allergy Swelling Verified 05/10/20 04:24 prochlorperazine Allergy Rash/Hives Verified 05/10/20 04:24 Sulfa (Sulfonamide Allergy Rash/Hives Verified 05/10/20 04:24 Antibiotics) Tetanus Vaccines and Toxoid Allergy Rash/Hives Verified 05/10/20 04:24 [Tetanus Vaccines & Toxoid] trifluoperazine HCl Allergy Unknown Verified 05/10/20 04:24 [From Stelazine] Review of Systems ROS Statement: Those systems with pertinent positive or pertinent negative responses have been documented in the HPI. ROS Other: All systems not noted in ROS Statement are negative. Past Medical History Past Medical History: Asthma, Heart Failure, COPD, Diabetes Mellitus, GERD/Reflux, Hyperlipidemia, Hypertension, Musculoskeletal Disorder, Osteoarthritis (OA), Pneumonia, Pulmonary Embolus (PE), Thyroid Disorder Additional Past Medical History / Comment(s): chronic low back pain, herniated discs, RLS, leg edema, anemia, gout bilateral feet, hypothyroid, UTIs, hx cellulitis, cataracts, macular degeneration History of Any Multi-Drug Resistant Organisms: None Reported Past Surgical History: Bariatric Surgery, Heart Catheterization, Hernia Repair, Orthopedic Surgery Additional Past Surgical History / Comment(s): Total Right knee replacement, 3 abdominal hernia repairs, left hip repair d/t fracture, gastric bypass/revision, colonoscopy. Past Anesthesia/Blood Transfusion Reactions: No Reported Reaction Past Psychological History: Anxiety, Bipolar, Depression, Panic Disorder, PTSD Smoking Status: Never smoker Past Alcohol Use History: Occasional Past Drug Use History: None Reported - Past Family History Mother Family Medical History: Cancer Additional Family Medical History / Comment(s): lung cancer Father Family Medical History: Diabetes Mellitus Additional Family Medical History / Comment(s): "my dad from a blood clot that traveled from his leg to his lung and also caused a heart attack." Brother(s) Family Medical History: Diabetes Mellitus Sister(s) Additional Family Medical History / Comment(s): "her heart races too fast" General Exam - General Exam Comments Initial Comments: Physical Exam GENERAL: Morbidly obese female resting comfortably in bed in no acute distress HENT: Normocephalic, Atraumatic. EYES: PERRL, EOMI PULMONARY: Unlabored respirations. CARDIOVASCULAR: RRR Warm and well perfused extremities ABDOMEN: Non-distended SKIN: No rashes or bruising : Deferred NEUROLOGIC: Alert and oriented Normal speech Normal gait MUSCULOSKELETAL: Moving all extremities with no apparent injury PSYCHIATRIC: No SI/HI Course Vital Signs 05/10/20 05/10/20 04:16 05:30 Temperature 97.7 F 97.6 F Pulse Rate 82 77 Respiratory 16 16 Rate Blood Pressure 145/71 131/66 O2 Sat by Pulse 97 98 Oximetry Medical Decision Making - Medical Decision Making The patient was seen and evaluated history is obtained from the patient Urinalysis was obtained and confirmed a urinary tract infection Patient with no concern for sexually transmitted infections insulin will be treated with Keflex, patient does report flank pain but has no fever or evidence of systemic illness All questions pertaining care were answered return parameters were discussed patient was prescribed Keflex as well as Pyridium for spermatic treatment. Patient was discharged home in stable condition. - Lab Data Lab Results 05/10/20 Range/Units 04:27 Urine Color Yellow Urine Appearance Turbid H (Clear) Urine pH 6.0 (5.0-8.0) Ur Specific [place] 1.015 (1.001-1.035) Urine Protein Trace H (Negative) Urine Glucose (UA) Negative (Negative) Urine Ketones Negative (Negative) Urine Blood Moderate H (Negative) Urine Nitrite Negative (Negative) Urine Bilirubin Negative (Negative) Urine Urobilinogen <2.0 (<2.0) mg/dL Ur Leukocyte Esterase Large H (Negative) Urine RBC 40 H (0-5) /hpf Urine WBC >182 H (0-5) /hpf Urine WBC Clumps Few H (None) /hpf Ur Squamous Epith Cells 1 (0-4) /hpf Urine Bacteria Occasional H (None) /hpf Disposition Clinical Impression: Urinary tract infection Disposition: HOME SELF-CARE Condition: Stable Instructions (If sedation given, give patient instructions): Urinary Tract Infection in Women (ED) Prescriptions: Cephalexin [Keflex] 500 mg PO Q6HR 7 Days #28 cap Phenazopyridine HCl [Pyridium] 100 mg PO TID #9 tab Is patient prescribed a controlled substance at d/c from ED?: No Referrals: Beau Jade MD [Primary Care Provider] - 1-2 days
[2020-05-10 05:32] VITALS: BP 131/66; PULSE 77; TEMP 97.6
== END 2020-05-10 05:40 | disposition home or self-care (01) ==
LOC: EC 04:13
DX: N39.0 Urinary tract infection, site not specified (principal); E66.01 Morbid (severe) obesity due to excess calories; E03.9 Hypothyroidism, unspecified; I11.0 Hypertensive heart disease with heart failure; I50.9 Heart failure, unspecified; E11.9 Type 2 diabetes mellitus without complications; K21.9 Gastro-esophageal reflux disease without esophagitis; E78.5 Hyperlipidemia, unspecified; F31.9 Bipolar disorder, unspecified; F41.0 Panic disorder [episodic paroxysmal anxiety]; F43.10 Post-traumatic stress disorder, unspecified; M19.90 Unspecified osteoarthritis, unspecified site; G89.29 Other chronic pain; M54.5 Low back pain; G25.81 Restless legs syndrome; D64.9 Anemia, unspecified; M10.9 Gout, unspecified; Z79.899 Other long term (current) drug therapy; Z79.890 Hormone replacement therapy; Z88.0 Allergy status to penicillin; Z88.2 Allergy status to sulfonamides; Z88.7 Allergy status to serum and vaccine; Z88.8 Allergy status to other drugs, medicaments and biological substances; Z91.048 Other nonmedicinal substance allergy status; Z96.651 Presence of right artificial knee joint; Z98.84 Bariatric surgery status; Z68.44 Body mass index [BMI] 60.0-69.9, adult; Z86.711 Personal history of pulmonary embolism; Z95.5 Presence of coronary angioplasty implant and graft
CPT/HCPCS: 81001; 87086; 99283

== ENCOUNTER 2020-05-12 16:38 | Emergency (ER) | payer MEDICARE, OTHER ==
[2020-05-12] MEDS ORDERED: NALOXONE 0.4 MG/ML 1 ML VIAL IVP STA (17:09)
[2020-05-12 17:38] LABS: Basophils % (A) 1 %; Eosinophils # (A) 0.3 k/uL (0-0.7); Eosinophils % (A) 4 %; HCT 34.6 % (34.0-46.0); HGB 10.8 gm/dL (11.4-16.0); Hypochromasia Slight; Lymphocytes # (A) 1.3 k/uL (1.0-4.8); Lymphocytes % (A) 18 %; MCH 28.7 pg (25.0-35.0); MCHC 31.2 g/dL (31.0-37.0); MCV 92.1 fL (80.0-100.0); Mean Platelet Volume 7.7; Monocytes # (A) 0.4 k/uL (0-1.0); Monocytes % (A) 6 %; Neutrophils # (A) 5.2 k/uL (1.3-7.7); Neutrophils % (A) 69 %; Platelet Count 318 k/uL (150-450); RBC 3.76 m/uL (3.80-5.40); RDW 13.9 % (11.5-15.5); WBC 7.6 k/uL (3.8-10.6)
[2020-05-12 17:46] LABS: ALT 16 U/L (4-34); AST 28 U/L (14-36); Acetaminophen <10.0 ug/mL; African American GFR (CKD) 78 (>60 ml/min/1.73 sqM); Alkaline Phosphatase 89 U/L (38-126); Anion Gap 6 mmol/L; Blood Urea Nitrogen 19 mg/dL (7-17); Calcium 9.3 mg/dL (8.4-10.2); Carbon Dioxide 26 mmol/L (22-30); Chloride 106 mmol/L (98-107); Glucose 90 mg/dL (74-99); Non-African American GFR(CKD) 68 (>60 ml/min/1.73 sqM); Potassium 5.3 mmol/L (3.5-5.1); Salicylate <1.0 mg/dL; Sodium 138 mmol/L (137-145); Total Bilirubin 0.3 mg/dL (0.2-1.3); Total Protein 6.9 g/dL (6.3-8.2)
[2020-05-12 18:40] LABS: Appearance,Urine Cloudy (Clear); Bacteria,Urine Rare /hpf; Bilirubin,Urine Negative (Negative); Blood,Urine Negative (Negative); Color,Urine Yellow; Glucose,Urine (UA) Negative (Negative); Hyaline Casts,Urine 7 /lpf (0-2); Ketones,Urine Negative (Negative); Leukocyte Esterase,Urine Large (Negative); Mucus,Urine Rare /hpf; Nitrite,Urine Negative (Negative); Protein,Urine Trace (Negative); RBC,Urine 2 /hpf (0-5); Specific Gravity,Urine 1.026 (1.001-1.035); Squamous Epithelial Cell,Urine 1 /hpf (0-4); WBC,Urine 116 /hpf (0-5)
[2020-05-12 18:41] LABS: Phencyclidine Screen,Urine Not Detected (NotDetected); Urn Cannabinoid Scrn Not Detected (NotDetected)
[2020-05-12 18:42] LABS: Amphetamine Screen,Urine Not Detected (NotDetected); Barbiturate Screen,Urine Not Detected (NotDetected); Benzodiazepines Screen,Urine Detected (NotDetected); Cocaine Screen,Urine Not Detected (NotDetected); Methadone Screen, Urine Not Detected (NotDetected); Opiate Screen,Urine Not Detected (NotDetected); Oxycodone Screen, Urine Not Detected (NotDetected); Tricyclic Antidepressant,Urine Not Detected (NotDetected)
--- NOTE | 2020-05-12 18:43 | ED ---
Psych HPI - General Source: EMS Mode of arrival: EMS <Thalia Covington - Last Filed: 05/12/20 19:12> <Cj Castillo - Last Filed: 05/13/20 00:52> <Papa Alexander - Last Filed: 05/15/20 16:48> - General Chief Complaint: Psychiatric Symptoms Stated Complaint: Mental Health Time Seen by Provider: 05/12/20 16:46 - History of Present Illness Initial Comments: 40-year-old feel presented for intentional overdose. Patient states she took 14 tramadol and attempted to be with her mother as she wants to commit suicide. Patient denies homicidal ideation. Patient states that she did not take any of her other medications in excess. Patient denies ingesting increased amount of aspirin or tylenol. Stating it was only the tramadol which were 50mg each. Patient denies additional complaints. Denies nausea, vomiting. States she is just sleepy. Patient appears well nontoxic is no acute distress. (Thalia Covington) - Related Data Home Medications Medication Instructions Recorded Confirmed Carvedilol [Coreg] 25 mg PO BID 06/07/17 05/12/20 Levothyroxine Sodium [Synthroid] 137 mcg PO DAILY 10/20/17 05/12/20 Montelukast [Singulair] 10 mg PO DAILY 06/28/18 05/12/20 DULoxetine HCL [Cymbalta] 60 mg PO BID 08/15/18 05/12/20 rOPINIRole HCL [Requip] 4 mg PO BID 11/18/18 05/12/20 Torsemide [Demadex] 50 mg PO SUTUTHSA 12/15/18 05/12/20 Torsemide [Demadex] 100 mg PO MOWEFR 12/15/18 05/12/20 Acetaminophen [Tylenol 8 Hour] 650 mg PO TID 08/14/19 05/12/20 Loratadine [Claritin] 10 mg PO DAILY 08/14/19 05/12/20 Magnesium Oxide [Mag-Ox] 400 mg PO DAILY 08/14/19 05/12/20 Multivitamins, Thera [Multivitamin 1 tab PO DAILY 08/14/19 05/12/20 (formulary)] Omeprazole 20 mg PO DAILY 08/14/19 05/12/20 allopurinoL [Zyloprim] 100 mg PO DAILY 08/14/19 05/12/20 Ferrous Gluconate 324 mg PO BID 01/19/20 05/12/20 Gabapentin [Neurontin] 400 mg PO TID 01/19/20 05/12/20 Melatonin 10 mg PO HS 01/19/20 05/12/20 Tolnaftate [Tinactin] 1 applic TOPICAL DAILY 01/19/20 05/12/20 Diclofenac Sodium [Voltaren Gel] 4 gram TOPICAL QID PRN 04/03/20 05/12/20 Potassium Chloride ER [K-Dur 10] 10 meq PO DAILY 04/03/20 05/12/20 Cholecalciferol [Vitamin D3 (25 5,000 unit PO DAILY 04/28/20 05/12/20 Mcg = 1000 Iu)] Paliperidone Palmitate [Invega 117 mg IM Q28D 05/12/20 05/12/20 Sustenna] QUEtiapine [SEROquel] 25 mg PO TID 05/12/20 05/12/20 Sennosides/Docusate Sodium [Senna 2 tab PO HS 05/12/20 05/12/20 Plus 8.6-50 mg Tablet] lamoTRIgine [LaMICtal] 200 mg PO DAILY 05/12/20 05/12/20 traMADol HCL 50 mg PO Q8H PRN 05/12/20 05/12/20 Previous Rx's Medication Instructions Recorded Nystatin 100,000 Unit/gm Powd 1 applic TOPICAL BID 7 Days #15 gm 10/14/19 [Mycostatin Powder] Cephalexin [Keflex] 500 mg PO Q6HR 7 Days #28 cap 05/10/20 Allergies Allergy/AdvReac Type Severity Reaction Status Date / Time buspirone [From BuSpar] Allergy Rash/Hives Verified 05/12/20 23:15 haloperidol [From Haldol] Allergy Swelling Verified 05/12/20 23:15 hydroxyzine [From Vistaril] Allergy Rash/Hives Verified 05/12/20 23:15 iodine Allergy Swelling Verified 05/12/20 23:15 Penicillins Allergy Swelling Verified 05/12/20 23:15 prochlorperazine Allergy Rash/Hives Verified 05/12/20 23:15 Sulfa (Sulfonamide Allergy Rash/Hives Verified 09/10/20 23:15 Antibiotics) Tetanus Vaccines and Toxoid Allergy Rash/Hives Verified 05/12/20 23:15 [Tetanus Vaccines & Toxoid] trifluoperazine HCl Allergy Unknown Verified 05/12/20 23:15 [From Stelazine] Review of Systems ROS Other: All systems not noted in ROS Statement are negative. <Thalia Covington - Last Filed: 05/12/20 19:12> ROS Other: All systems not noted in ROS Statement are negative. <Cj Castillo - Last Filed: 05/13/20 00:52> ROS Other: All systems not noted in ROS Statement are negative. <Papa Alexander - Last Filed: 05/15/20 16:48> ROS Statement: Those systems with pertinent positive or pertinent negative responses have been documented in the HPI. Past Medical History Past Medical History: Asthma, Heart Failure, COPD, Diabetes Mellitus, GERD/Reflux, Hyperlipidemia, Hypertension, Musculoskeletal Disorder, Osteoarthritis (OA), Pneumonia, Pulmonary Embolus (PE), Thyroid Disorder Additional Past Medical History / Comment(s): chronic low back pain, herniated discs, RLS, leg edema, anemia, gout bilateral feet, hypothyroid, UTIs, hx cellulitis, cataracts, macular degeneration History of Any Multi-Drug Resistant Organisms: None Reported Past Surgical History: Bariatric Surgery, Heart Catheterization, Hernia Repair, Orthopedic Surgery Additional Past Surgical History / Comment(s): Total Right knee replacement, 3 abdominal hernia repairs, left hip repair d/t fracture, gastric bypass/revision, colonoscopy. Past Anesthesia/Blood Transfusion Reactions: No Reported Reaction Past Psychological History: Anxiety, Bipolar, Depression, Panic Disorder, PTSD Smoking Status: Never smoker Past Alcohol Use History: Occasional Past Drug Use History: None Reported - Past Family History Mother Family Medical History: Cancer Additional Family Medical History / Comment(s): lung cancer Father Family Medical History: Diabetes Mellitus Additional Family Medical History / Comment(s): "my dad from a blood clot that traveled from his leg to his lung and also caused a heart attack." Brother(s) Family Medical History: Diabetes Mellitus Sister(s) Additional Family Medical History / Comment(s): "her heart races too fast" <Thalia Covington - Last Filed: 05/12/20 19:12> General Exam Limitations: no limitations <Thalia Covington Last Filed: 05/12/20 19:12> - General Exam Comments Initial Comments: General: The patient is awake and alert, in no distress, and does not appear acutely ill. Eye: +2 mm pupils are equal, round and reactive to light, extra-ocular movements are intact. No nystagmus. There is normal conjunctiva bilaterally. No signs of icterus. Ears, nose, mouth and throat: There are moist mucous membranes and no oral lesions. Neck: The neck is supple, there is no tenderness or JVD. Morbidly obese, appears slightly sleepy but easily arousable. Cardiovascular: There is a regular rate and rhythm. No murmur, rub or gallop is appreciated. Respiratory: Lungs are clear to auscultation, respirations are non-labored, breath sounds are equal. No wheezes, stridor, rales, or rhonchi. Gastrointestinal: Soft, non-distended, non-tender abdomen without masses or organomegaly noted. There is no rebound or guarding present. Musculoskeletal: Normal ROM, no tenderness. Strength 5/5. Sensation intact. Radial pulses equal bilaterally 2+. Neurological: A&O x 3. CN II-XII intact, There are no obvious motor or sensory deficits. Coordination appears grossly intact. Speech is normal. Skin: Skin is warm and dry and no rashes or lesions are noted. Psychiatric: Cooperative, appropriate mood & affect, normal judgment. (Thalia Covington) Course <AdriaThalia Santos - Last Filed: 05/12/20 19:12> Vital Signs 05/12/20 05/12/20 05/12/20 16:42 17:30 23:42 Temperature 97.5 F L Pulse Rate 90 78 Respiratory 20 12 18 Rate Blood Pressure 142/93 120/61 O2 Sat by Pulse 95 95 Oximetry 05/13/20 05/13/20 05/13/20 06:34 10:16 22:00 Temperature 98.3 F Pulse Rate 89 81 83 Respiratory 18 18 18 Rate Blood Pressure 172/87 157/68 151/79 O2 Sat by Pulse 96 97 95 Oximetry 05/14/20 05/14/20 05/14/20 00:35 02:05 04:00 Temperature 98.8 F 97.6 F Pulse Rate 76 86 73 Respiratory 18 18 18 Rate Blood Pressure 152/58 129/89 142/78 O2 Sat by Pulse 94 L 97 96 Oximetry 05/14/20 05/14/20 05/14/20 05:23 07:14 12:00 Temperature 99.1 F 97.9 F 98.3 F Pulse Rate 74 81 98 Respiratory 17 19 24 Rate Blood Pressure 148/80 149/62 150/76 O2 Sat by Pulse 99 95 97 Oximetry 05/14/20 05/15/20 05/15/20 16:00 04:39 06:00 Temperature 98.2 F 98.1 F Pulse Rate 89 86 Respiratory 20 18 Rate Blood Pressure 146/71 140/72 O2 Sat by Pulse 97 90 L 96 Oximetry 05/15/20 05/15/20 05/15/20 08:00 09:00 12:00 Temperature 98.5 F 98.1 F Pulse Rate 85 72 Respiratory 18 18 18 Rate Blood Pressure 116/75 122/76 O2 Sat by Pulse 97 97 Oximetry 05/15/20 16:30 Temperature 98.2 F Pulse Rate 73 Respiratory 18 Rate Blood Pressure 118/60 O2 Sat by Pulse 99 Oximetry - Reevaluation(s) Reevaluation #1: Patient salicylate and acetaminophen levels WNL. Less sleepy appearing after narcan 05/12/20 (Thalia Covington) Reevaluation #2: Nurse reported chest pain-patient will have repeat EKG and troponin taken 05/12/20 18:43 (Thalia Covington) Reevaluation #3: Signed patient care out to attending Dr. Cortés 05/12/20 19:12 (Thalia Covington) Medical Decision Making - Lab Data Result diagrams: 05/12/20 17:25 05/12/20 17:25 <Thalia Covington - Last Filed: 05/12/20 19:12> - Lab Data Result diagrams: 05/12/20 17:25 05/12/20 17:25 <Cj Castillo - Last Filed: 05/13/20 00:52> - Lab Data Result diagrams: 05/12/20 17:25 05/12/20 17:25 <Papa Alexander - Last Filed: 05/15/20 16:48> - Medical Decision Making Pt presenting for intentional overdose of tramadol. 14 tablets 50mg each. Patient more responsive after narcan. Patient denies any additional complaints initially. Patient EKG WNL. Complained of chest pain at 1838. Repeat EKG, chelsea umana added. Will wait for troponin to results for EPS evaluation. (Thalia Covington) I did see this patient's for purpose of filing medical certificate. (Carri Castillo) Patient has been in the emergency department for 72 hours. Allegedly there were issues finding placement. During my shift patient states she wanted to be discharged. I observe patient in the emergency department from 12 PM to approximately 5 PM. Patient is with stable medical condition. EPS was reached out to and asked for reevaluation for possible discharge with discharge plan. EPS did evaluate patient did contact [facility] and did come up with discharge plan. Patient is agreeable with plan. She denies any suicidal ideation. She is comfortable and agreeable with disposition. (Papa Alexander) - Lab Data Lab Results 05/12/20 05/12/20 05/12/20 Range/Units 17:25 17:25 18:07 WBC 7.6 (3.8-10.6) k/uL RBC 3.76 L (3.80-5.40) m/uL Hgb 10.8 L (11.4-16.0) gm/dL Hct 34.6 (34.0-46.0) % MCV 92.1 (80.0-100.0) fL MCH 28.7 (25.0-35.0) pg MCHC 31.2 (31.0-37.0) g/dL RDW 13.9 (11.5-15.5) % Plt Count 318 (150-450) k/uL Neutrophils % 69 % Lymphocytes % 18 % Monocytes % 6 % Eosinophils % 4 % Basophils % 1 % Neutrophils # 5.2 (1.3-7.7) k/uL Lymphocytes # 1.3 (1.0-4.8) k/uL Monocytes # 0.4 (0-1.0) k/uL Eosinophils # 0.3 (0-0.7) k/uL Basophils # 0.0 (0-0.2) k/uL Hypochromasia Slight Sodium 138 (137-145) mmol/L Potassium 5.3 H (3.5-5.1) mmol/L Chloride 106 (98-107) mmol/L Carbon Dioxide 26 (22-30) mmol/L Anion Gap 6 mmol/L BUN 19 H (7-17) mg/dL Creatinine 0.93 (0.52-1.04) mg/dL Est GFR (CKD-EPI)AfAm 78 (>60 ml/min/1.73 sqM) Est GFR (CKD-EPI)NonAf 68 (>60 ml/min/1.73 sqM) Glucose 90 (74-99) mg/dL Calcium 9.3 (8.4-10.2) mg/dL Total Bilirubin 0.3 (0.2-1.3) mg/dL AST 28 (14-36) U/L ALT 16 (4-34) U/L Alkaline Phosphatase 89 (38-126) U/L Troponin I (0.000-0.034) ng/mL Total Protein 6.9 (6.3-8.2) g/dL Albumin 4.0 (3.5-5.0) g/dL Urine Color Yellow Urine Appearance Cloudy H (Clear) Urine pH 5.0 (5.0-8.0) Ur Specific [place] 1.026 (1.001-1.035) Urine Protein Trace H (Negative) Urine Glucose (UA) Negative (Negative) Urine Ketones Negative (Negative) Urine Blood Negative (Negative) Urine Nitrite Negative (Negative) Urine Bilirubin Negative (Negative) Urine Urobilinogen 2.0 (<2.0) mg/dL Ur Leukocyte Esterase Large H (Negative) Urine RBC 2 (0-5) /hpf Urine WBC 116 H (0-5) /hpf Ur Squamous Epith Cells 1 (0-4) /hpf Urine Bacteria Rare H (None) /hpf Hyaline Casts 7 H (0-2) /lpf Urine Mucus Rare H (None) /hpf Salicylates <1.0 mg/dL Urine Opiates Screen Not Detected (NotDetected) Ur Oxycodone Screen Not Detected (NotDetected) Urine Methadone Screen Not Detected (NotDetected) Ur Propoxyphene Screen Not Detected (NotDetected) Acetaminophen <10.0 ug/mL Ur Barbiturates Screen Not Detected (NotDetected) U Tricyclic Antidepress Not Detected (NotDetected) Ur Phencyclidine Scrn Not Detected (NotDetected) Ur Amphetamines Screen Not Detected (NotDetected) U Methamphetamines Scrn Not Detected (NotDetected) U Benzodiazepines Scrn Detected H (NotDetected) Urine Cocaine Screen Not Detected (NotDetected) U Marijuana (THC) Screen Not Detected (NotDetected) 05/12/20 Range/Units 18:45 WBC (3.8-10.6) k/uL RBC (3.80-5.40) m/uL Hgb (11.4-16.0) gm/dL Hct (34.0-46.0) % MCV (80.0-100.0) fL MCH (25.0-35.0) pg MCHC (31.0-37.0) g/dL RDW (11.5-15.5) % Plt Count (150-450) k/uL Neutrophils % % Lymphocytes % % Monocytes % % Eosinophils % % Basophils % % Neutrophils # (1.3-7.7) k/uL Lymphocytes # (1.0-4.8) k/uL Monocytes # (0-1.0) k/uL Eosinophils # (0-0.7) k/uL Basophils # (0-0.2) k/uL Hypochromasia Sodium (137-145) mmol/L Potassium (3.5-5.1) mmol/L Chloride (98-107) mmol/L Carbon Dioxide (22-30) mmol/L Anion Gap mmol/L BUN (7-17) mg/dL Creatinine (0.52-1.04) mg/dL Est GFR (CKD-EPI)AfAm (>60 ml/min/1.73 sqM) Est GFR (CKD-EPI)NonAf (>60 ml/min/1.73 sqM) Glucose (74-99) mg/dL Calcium (8.4-10.2) mg/dL Total Bilirubin (0.2-1.3) mg/dL AST (14-36) U/L ALT (4-34) U/L Alkaline Phosphatase (38-126) U/L Troponin I <0.012 (0.000-0.034) ng/mL Total Protein (6.3-8.2) g/dL Albumin (3.5-5.0) g/dL Urine Color Urine Appearance (Clear) Urine pH (5.0-8.0) Ur Specific [place] (1.001-1.035) Urine Protein (Negative) Urine Glucose (UA) (Negative) Urine Ketones (Negative) Urine Blood (Negative) Urine Nitrite (Negative) Urine Bilirubin (Negative) Urine Urobilinogen (<2.0) mg/dL Ur Leukocyte Esterase (Negative) Urine RBC (0-5) /hpf Urine WBC (0-5) /hpf Ur Squamous Epith Cells (0-4) /hpf Urine Bacteria (None) /hpf Hyaline Casts (0-2) /lpf Urine Mucus (None) /hpf Salicylates mg/dL Urine Opiates Screen (NotDetected) Ur Oxycodone Screen (NotDetected) Urine Methadone Screen (NotDetected) Ur Propoxyphene Screen (NotDetected) Acetaminophen ug/mL Ur Barbiturates Screen (NotDetected) U Tricyclic Antidepress (NotDetected) Ur Phencyclidine Scrn (NotDetected) Ur Amphetamines Screen (NotDetected) U Methamphetamines Scrn (NotDetected) U Benzodiazepines Scrn (NotDetected) Urine Cocaine Screen (NotDetected) U Marijuana (THC) Screen (NotDetected) Disposition <Thalia Covington - Last Filed: 05/12/20 19:12> <Cj Castillo - Last Filed: 05/13/20 00:52> Is patient prescribed a controlled substance at d/c from ED?: No Time of Disposition: 16:48 <Papa Alexander - Last Filed: 05/15/20 16:48> Clinical Impression: Suicidal behavior Disposition: HOME SELF-CARE Condition: Good Instructions (If sedation given, give patient instructions): Suicide Prevention (ED) Referrals: Beau Jade MD [Primary Care Provider] - 1-2 days
[2020-05-13] MEDS ORDERED: METOCLOPRAMIDE 5 MG TAB PO STA (08:59)
[2020-05-13] MEDS: ACETAMINOPHEN TAB 325 MG TAB PO SCH ×3 (09:32→22:15)
[2020-05-13] MEDS: CHOLECALCIFEROL 1,000 UNIT TAB PO SCH (09:32)
[2020-05-13] MEDS: PANTOPRAZOLE 40 MG TABLET PO SCH (09:34)
[2020-05-13] MEDS: carvediloL 12.5 MG TAB PO SCH ×2 (09:34→17:37)
[2020-05-13] MEDS: MAGNESIUM OXIDE 400 MG TAB PO SCH (09:34)
[2020-05-13] MEDS: MONTELUKAST 10 MG TAB PO SCH (09:35)
[2020-05-13] MEDS: LEVOTHYROXINE 137 MCG TAB PO SCH (10:00)
[2020-05-13] MEDS: rOPINIRole HCL 4 MG TABLET PO SCH ×2 (10:01→22:16)
[2020-05-13] MEDS: MULTIVITAMINS, THERA 1 EACH TAB PO SCH (10:13)
[2020-05-13] MEDS: GABAPENTIN 400 MG CAP PO SCH ×3 (10:13→22:17)
[2020-05-13] MEDS: FERROUS SULFATE 325 MG TAB PO SCH ×2 (10:13→22:16)
[2020-05-13] MEDS: allopurinoL 100 MG TAB PO SCH (10:13)
[2020-05-13] MEDS: QUEtiapine 25 MG TAB PO SCH ×2 (10:14→15:47)
[2020-05-13] MEDS: DULoxetine HCL 60 MG CAPSULE.DR PO SCH ×2 (10:14→22:15)
[2020-05-13] MEDS: lamoTRIgine 100 MG TAB PO SCH (10:14)
[2020-05-13] MEDS ORDERED: LORazepam 2 MG/ML INJ IV STA ×2 (17:04→17:16)
[2020-05-13] MEDS: SENNOSIDES-DOCUSATE SODIUM 1 EACH TAB PO SCH (22:16)
[2020-05-13] MEDS: MELATONIN 5 MG TABLET PO SCH (22:16)
[2020-05-14] MEDS: carvediloL 12.5 MG TAB PO SCH ×2 (08:16→16:49)
[2020-05-14] MEDS ORDERED: TORSEMIDE 20 MG TAB PO ONE ×2 (08:17→16:39)
[2020-05-14] MEDS ORDERED: rOPINIRole HCL 4 MG TABLET PO ONE ×2 (08:17)
[2020-05-14] MEDS ORDERED: MONTELUKAST 10 MG TAB PO ONE (08:17)
[2020-05-14] MEDS ORDERED: FERROUS SULFATE 325 MG TAB PO ONE ×2 (08:17)
[2020-05-14] MEDS ORDERED: MELATONIN 5 MG TABLET PO ONE (08:17)
[2020-05-14] MEDS ORDERED: DULoxetine HCL 60 MG CAPSULE.DR PO ONE ×2 (08:17)
[2020-05-14] MEDS: PANTOPRAZOLE 40 MG TABLET PO SCH (08:17)
[2020-05-14] MEDS ORDERED: lamoTRIgine 100 MG TAB PO ONE (08:17)
[2020-05-14] MEDS ORDERED: CHOLECALCIFEROL 1,000 UNIT TAB PO ONE (08:17)
[2020-05-14] MEDS ORDERED: MULTIVITAMINS, THERA 1 EACH TAB PO ONE (08:17)
[2020-05-14] MEDS ORDERED: SENNOSIDES-DOCUSATE SODIUM 1 EACH TAB PO ONE (08:17)
[2020-05-14] MEDS ORDERED: ACETAMINOPHEN TAB 325 MG TAB PO ONE ×3 (08:17)
[2020-05-14] MEDS ORDERED: PANTOPRAZOLE 40 MG TABLET PO ONE (08:17)
[2020-05-14] MEDS ORDERED: LEVOTHYROXINE 137 MCG TAB PO ONE (08:17)
[2020-05-14] MEDS ORDERED: GABAPENTIN 400 MG CAP PO ONE ×3 (08:17)
[2020-05-14] MEDS ORDERED: allopurinoL 100 MG TAB PO ONE (08:17)
[2020-05-14] MEDS ORDERED: MAGNESIUM OXIDE 400 MG TAB PO ONE (08:17)
[2020-05-14] MEDS ORDERED: carvediloL 12.5 MG TAB PO ONE ×2 (08:17)
[2020-05-14] MEDS ORDERED: QUEtiapine 25 MG TAB PO ONE ×5 (08:17)
[2020-05-14] MEDS: ACETAMINOPHEN TAB 325 MG TAB PO SCH ×3 (08:20→22:25)
[2020-05-14] MEDS ORDERED: TORSEMIDE 20 MG TAB PO SCH (09:00)
[2020-05-14] MEDS: MONTELUKAST 10 MG TAB PO SCH (09:21)
[2020-05-14] MEDS: FERROUS SULFATE 325 MG TAB PO SCH ×2 (09:21→22:38)
[2020-05-14] MEDS: MULTIVITAMINS, THERA 1 EACH TAB PO SCH (09:21)
[2020-05-14] MEDS: lamoTRIgine 100 MG TAB PO SCH (09:22)
[2020-05-14] MEDS: DULoxetine HCL 60 MG CAPSULE.DR PO SCH ×2 (09:22→23:54)
[2020-05-14] MEDS: QUEtiapine 25 MG TAB PO SCH ×5 (09:22→22:38)
[2020-05-14] MEDS: allopurinoL 100 MG TAB PO SCH (09:22)
[2020-05-14] MEDS: MAGNESIUM OXIDE 400 MG TAB PO SCH (09:22)
[2020-05-14] MEDS: CHOLECALCIFEROL 1,000 UNIT TAB PO SCH (09:22)
[2020-05-14] MEDS: GABAPENTIN 400 MG CAP PO SCH ×3 (09:31→22:38)
[2020-05-14] MEDS: LEVOTHYROXINE 137 MCG TAB PO SCH (10:36)
[2020-05-14] MEDS: rOPINIRole HCL 4 MG TABLET PO SCH ×2 (10:36→22:39)
[2020-05-14] MEDS: MELATONIN 5 MG TABLET PO SCH (22:38)
[2020-05-14] MEDS: SENNOSIDES-DOCUSATE SODIUM 1 EACH TAB PO SCH (22:39)
[2020-05-15 04:40] VITALS: RESP 18
[2020-05-15] MEDS ORDERED: LEVOTHYROXINE 137 MCG TAB PO SCH (06:30)
[2020-05-15] MEDS ORDERED: PANTOPRAZOLE 40 MG TABLET PO SCH (07:30)
[2020-05-15] MEDS: carvediloL 12.5 MG TAB PO SCH ×2 (08:08→16:39)
[2020-05-15] MEDS: GABAPENTIN 400 MG CAP PO SCH ×2 (08:09→16:38)
[2020-05-15] MEDS: QUEtiapine 25 MG TAB PO SCH ×2 (08:09→16:39)
[2020-05-15] MEDS: ACETAMINOPHEN TAB 325 MG TAB PO SCH ×2 (08:10→16:37)
[2020-05-15] MEDS ORDERED: ACETAMINOPHEN TAB 325 MG TAB PO SCH (09:00)
[2020-05-15] MEDS ORDERED: rOPINIRole HCL 4 MG TABLET PO SCH (09:00)
[2020-05-15] MEDS ORDERED: CHOLECALCIFEROL 1,000 UNIT TAB PO SCH (09:00)
[2020-05-15] MEDS ORDERED: MONTELUKAST 10 MG TAB PO SCH (09:00)
[2020-05-15] MEDS ORDERED: DULoxetine HCL 60 MG CAPSULE.DR PO SCH (09:00)
[2020-05-15] MEDS ORDERED: allopurinoL 100 MG TAB PO SCH (09:00)
[2020-05-15] MEDS ORDERED: MULTIVITAMINS, THERA 1 EACH TAB PO SCH (09:00)
[2020-05-15] MEDS ORDERED: lamoTRIgine 100 MG TAB PO SCH (09:00)
[2020-05-15] MEDS ORDERED: TORSEMIDE 20 MG TAB PO SCH (09:00)
[2020-05-15] MEDS ORDERED: FERROUS SULFATE 325 MG TAB PO SCH (09:00)
[2020-05-15] MEDS ORDERED: MAGNESIUM OXIDE 400 MG TAB PO SCH (09:00)
[2020-05-15] MEDS: LEVOTHYROXINE 137 MCG TAB PO SCH (16:37)
[2020-05-15 16:43] VITALS: BP 118/60; PULSE 73; TEMP 98.2
[2020-05-15] MEDS ORDERED: SENNOSIDES-DOCUSATE SODIUM 1 EACH TAB PO SCH (21:00)
[2020-05-15] MEDS ORDERED: MELATONIN 5 MG TABLET PO SCH (21:00)
[2020-05-16] MEDS ORDERED: LEVOTHYROXINE 137 MCG TAB PO SCH (06:30)
[2020-05-16] MEDS ORDERED: PALIPERIDONE 6 MG TAB.ER.24 PO SCH (09:00)
== END 2020-05-15 17:10 | disposition home or self-care (01) ==
LOC: EC 16:38
DX: T40.4X2A Poisoning by other synthetic narcotics, intentional self-harm, initial encounter (principal); J44.9 Chronic obstructive pulmonary disease, unspecified; I50.9 Heart failure, unspecified; I11.0 Hypertensive heart disease with heart failure; K21.9 Gastro-esophageal reflux disease without esophagitis; E78.5 Hyperlipidemia, unspecified; M19.90 Unspecified osteoarthritis, unspecified site; E03.9 Hypothyroidism, unspecified; G25.81 Restless legs syndrome; M10.9 Gout, unspecified; F41.9 Anxiety disorder, unspecified; F31.9 Bipolar disorder, unspecified; F41.0 Panic disorder [episodic paroxysmal anxiety]; F43.10 Post-traumatic stress disorder, unspecified; Z79.890 Hormone replacement therapy; Z79.899 Other long term (current) drug therapy; Z88.0 Allergy status to penicillin; Z88.2 Allergy status to sulfonamides; Z88.7 Allergy status to serum and vaccine; Z88.8 Allergy status to other drugs, medicaments and biological substances; Z91.041 Radiographic dye allergy status; Z98.42 Cataract extraction status, left eye; Z98.41 Cataract extraction status, right eye; Z96.651 Presence of right artificial knee joint
CPT/HCPCS: 99285; 96365; 96375 ×2; 82075; 36415; 93005; 80053; 84484; 85025; 81001; 80306; 83520; G0480; J2060; J2310; J0696; 80329

== ENCOUNTER 2020-05-19 15:50 | Emergency (ER) | payer MEDICARE, OTHER ==
[2020-05-19 15:56] VITALS: RESP 19; TEMP 98.1
[2020-05-19] MEDS ORDERED: HYDROcodone/APAP 5-325MG 1 EACH TAB PO STA (17:42)
--- NOTE | 2020-05-19 17:57 | US ---
EXAMINATION TYPE: US venous doppler duplex LE LT DATE OF EXAM: 05/19/2020 4:41 PM COMPARISON: US 2019 CLINICAL HISTORY: left calf pain r/o DVT. Left calf pain x 1 day SIDE PERFORMED: Left TECHNIQUE: The lower extremity deep venous system is examined utilizing real time linear array sonog rizwan with graded compression, doppler sonography and color-flow sonography. VESSELS IMAGED: External Iliac Vein (EIV) Common Femoral Vein Deep Femoral Vein Greater Saphenous Vein * Femoral Vein Popliteal Vein Small Saphenous Vein * Proximal Calf Veins (* superficial vessels) Difficult and limited study due to morbidly obese patient Left Leg: Appears negative for DVT IMPRESSION: No evidence of deep vein thrombosis in the left leg.
[2020-05-19 18:31] VITALS: BP 148/73; PULSE 72
--- NOTE | 2020-05-19 19:07 | ED ---
General Adult HPI - General Source: EMS, RN notes reviewed, old records reviewed Mode of arrival: EMS Limitations: physical limitation <Derik Anderson - Last Filed: 05/19/20 19:51> <Mayra Layton - Last Filed: 05/20/20 18:14> - General Chief complaint: Extremity Problem,Nontraumatic Stated complaint: Leg Pain Time Seen by Provider: 05/19/20 16:13 - History of Present Illness Initial comments: 60-year-old female patient proceeded for evaluation of left calf pain. Patient reports that starting today she has had some pain in her left calf. Denies any chest pain shortness breath or any other areas of pain. Denies any falls or trauma. Denies any other acute complaints. Systemic: Pt denies fatigue, fever/chills, rash. Pt denies weakness, night sweats, weight loss. Neuro: Pt denies headache, visual disturbances, syncope or pre-syncope. HEENT: Pt denies ocular discharge or irritation, otalgia, rhinorrhea, pharyngitis or notable lymphadenopathy. Cardiopulmonary: Pt denies chest pain, SOB, heart palpitations, dyspnea on exertion. Abdominal/GI: Pt denies abdominal pain, n/v/d. : Pt denies dysuria, burning w/ urination, frequency/urgency. Denies new onset urinary or bowel incontinence. MSK: Pt denies loss of strength or function in extremities. Neuro: Pt denies new onset weakness, paresthesias. (Derik Anderson) - Related Data Home Medications Medication Instructions Recorded Confirmed Carvedilol [Coreg] 25 mg PO BID 06/07/17 05/12/20 Levothyroxine Sodium [Synthroid] 137 mcg PO DAILY 10/20/17 05/12/20 Montelukast [Singulair] 10 mg PO DAILY 06/28/18 05/12/20 DULoxetine HCL [Cymbalta] 60 mg PO BID 08/15/18 05/12/20 rOPINIRole HCL [Requip] 4 mg PO BID 11/18/18 05/12/20 Torsemide [Demadex] 50 mg PO SUTUTHSA 12/15/18 05/12/20 Torsemide [Demadex] 100 mg PO MOWEFR 12/15/18 05/12/20 Acetaminophen [Tylenol 8 Hour] 650 mg PO TID 08/14/19 05/12/20 Loratadine [Claritin] 10 mg PO DAILY 08/14/19 05/12/20 Magnesium Oxide [Mag-Ox] 400 mg PO DAILY 08/14/19 05/12/20 Multivitamins, Thera [Multivitamin 1 tab PO DAILY 08/14/19 05/12/20 (formulary)] Omeprazole 20 mg PO DAILY 08/14/19 05/12/20 allopurinoL [Zyloprim] 100 mg PO DAILY 08/14/19 05/12/20 Ferrous Gluconate 324 mg PO BID 01/19/20 05/12/20 Gabapentin [Neurontin] 400 mg PO TID 01/19/20 05/12/20 Melatonin 10 mg PO HS 01/19/20 05/12/20 Tolnaftate [Tinactin] 1 applic TOPICAL DAILY 01/19/20 05/12/20 Diclofenac Sodium [Voltaren Gel] 4 gram TOPICAL QID PRN 04/03/20 05/12/20 Potassium Chloride ER [K-Dur 10] 10 meq PO DAILY 04/03/20 05/12/20 Cholecalciferol [Vitamin D3 (25 5,000 unit PO DAILY 04/28/20 05/12/20 Mcg = 1000 Iu)] Paliperidone Palmitate [Invega 117 mg IM Q28D 05/12/20 05/12/20 Sustenna] QUEtiapine [SEROquel] 25 mg PO TID 05/12/20 05/12/20 Sennosides/Docusate Sodium [Senna 2 tab PO HS 05/12/20 05/12/20 Plus 8.6-50 mg Tablet] lamoTRIgine [LaMICtal] 200 mg PO DAILY 05/12/20 05/12/20 traMADol HCL 50 mg PO Q8H PRN 05/12/20 05/12/20 Previous Rx's Medication Instructions Recorded Nystatin 100,000 Unit/gm Powd 1 applic TOPICAL BID 7 Days #15 gm 10/14/19 [Mycostatin Powder] Cephalexin [Keflex] 500 mg PO Q6HR 7 Days #28 cap 05/10/20 Allergies Allergy/AdvReac Type Severity Reaction Status Date / Time buspirone [From BuSpar] Allergy Rash/Hives Verified 05/12/20 23:15 haloperidol [From Haldol] Allergy Swelling Verified 05/12/20 23:15 hydroxyzine [From Vistaril] Allergy Rash/Hives Verified 05/12/20 23:15 iodine Allergy Swelling Verified 05/12/20 23:15 Penicillins Allergy Swelling Verified 05/12/20 23:15 prochlorperazine Allergy Rash/Hives Verified 05/12/20 23:15 Sulfa (Sulfonamide Allergy Rash/Hives Verified 05/12/20 23:15 Antibiotics) Tetanus Vaccines and Toxoid Allergy Rash/Hives Verified 05/12/20 23:15 [Tetanus Vaccines & Toxoid] trifluoperazine HCl Allergy Unknown Verified 05/12/20 23:15 [From Stelazine] Review of Systems ROS Other: All systems not noted in ROS Statement are negative. <Derik Anderson - Last Filed: 05/19/20 19:51> ROS Other: All systems not noted in ROS Statement are negative. <Mayra Layton - Last Filed: 05/20/20 18:14> ROS Statement: Those systems with pertinent positive or pertinent negative responses have been documented in the HPI. Past Medical History Past Medical History: Asthma, Heart Failure, COPD, Diabetes Mellitus, GERD/Reflux, Hyperlipidemia, Hypertension, Musculoskeletal Disorder, Osteoarthritis (OA), Pneumonia, Pulmonary Embolus (PE), Thyroid Disorder Additional Past Medical History / Comment(s): chronic low back pain, herniated discs, RLS, leg edema, anemia, gout bilateral feet, hypothyroid, UTIs, hx cellulitis, cataracts, macular degeneration History of Any Multi-Drug Resistant Organisms: None Reported Past Surgical History: Bariatric Surgery, Heart Catheterization, Hernia Repair, Orthopedic Surgery Additional Past Surgical History / Comment(s): Total Right knee replacement, 3 abdominal hernia repairs, left hip repair d/t fracture, gastric bypass/revision, colonoscopy. Past Anesthesia/Blood Transfusion Reactions: No Reported Reaction Past Psychological History: Anxiety, Bipolar, Depression, Panic Disorder, PTSD Smoking Status: Never smoker Past Alcohol Use History: Occasional Past Drug Use History: None Reported - Past Family History Mother Family Medical History: Cancer Additional Family Medical History / Comment(s): lung cancer Father Family Medical History: Diabetes Mellitus Additional Family Medical History / Comment(s): "my dad from a blood clot that traveled from his leg to his lung and also caused a heart attack." Brother(s) Family Medical History: Diabetes Mellitus Sister(s) Additional Family Medical History / Comment(s): "her heart races too fast" <Derik Anderson - Last Filed: 05/19/20 19:51> General Exam Limitations: physical limitation <Derik Anderson - Last Filed: 05/19/20 19:51> - General Exam Comments Initial Comments: Constitutional: NAD, AOX3, Pt has pleasant affect. HEENT: NC/AT, trachea midline, neck supple, no lymphadenopathy. External ears appear normal, without discharge. Mucous membranes moist. EOM intact. There is no scleral icterus. No pallor noted. Cardiopulmonary: RRR, no murmurs, rubs or gallops, no JVD noted. Lungs CTAB in anterior and posterior bowser. No peripheral edema. Abdominal exam: Abdomen soft and non-distended. Abdomen non-tender to palpation in all 4 quadrants. Bowel sounds active in LLQ. No hepatosplenomegaly. No ecchymosis Neuro: CN II-XII grossly intact. No nuchal rigidity. MSK: Mild tenderness to left calf. No external skin changes are noted. No tenderness to right calf. Homans sign negative bilaterally. Posterior tibialis and radial pulse +2 bilaterally. Sensation intact in upper and lower extremities. Full active ROM in lower extremities, 5/5 stregnth. (Derik Anderson) Course Vital Signs 05/19/20 05/19/20 15:53 18:31 Temperature 98.1 F Pulse Rate 85 72 Respiratory 19 19 Rate Blood Pressure 140/67 148/73 O2 Sat by Pulse 96 99 Oximetry Medical Decision Making <Derik Anderson - Last Filed: 05/19/20 19:51> <Mayra Layton - Last Filed: 05/20/20 18:14> - Medical Decision Making 60-year-old female patient presents to ED with chief complaint left calf pain. Patient also has a stable, afebrile. Physical exam: Mild tenderness no skin changes. Ultrasound negative for DVT. symptoms well controlled. Patient ambulatory without difficulty. She'll be discharged outpatient follow-up and return precautions. Case discussed with Dr. Layton. (Derik Anderson) I was available for consultation in the emergency department. The history and physical exam were done by the midlevel provider. I was consulted for this patients care. I reviewed the case with the midlevel provider and based on their presentation of the patient, I agree with the assessment, medical decision making and plan of care as documented. Chart was dictated using [employer] dictation software. Attempts were made to correct any dictation errors however some typographical errors may persist. Patient was seen during a national state of emergency due to the Covid-19 pandemic. (Mayra Layton) Disposition Is patient prescribed a controlled substance at d/c from ED?: No <Derik Anderson - Last Filed: 05/19/20 19:51> <Mayra Layton - Last Filed: 05/20/20 18:14> Clinical Impression: Calf pain Disposition: HOME SELF-CARE Condition: Stable Instructions (If sedation given, give patient instructions): Musculoskeletal Pain (ED) Referrals: Beau Jade MD [Primary Care Provider] - 1-2 days
== END 2020-05-19 19:22 | disposition home or self-care (01) ==
LOC: EC 15:50
DX: M79.662 Pain in left lower leg (principal); F41.9 Anxiety disorder, unspecified; F31.9 Bipolar disorder, unspecified; F41.0 Panic disorder [episodic paroxysmal anxiety]; F43.10 Post-traumatic stress disorder, unspecified; E03.9 Hypothyroidism, unspecified; I11.0 Hypertensive heart disease with heart failure; K21.9 Gastro-esophageal reflux disease without esophagitis; E78.5 Hyperlipidemia, unspecified; M19.90 Unspecified osteoarthritis, unspecified site; G25.81 Restless legs syndrome; J44.9 Chronic obstructive pulmonary disease, unspecified; M10.9 Gout, unspecified; Z79.890 Hormone replacement therapy; Z79.899 Other long term (current) drug therapy; I50.9 Heart failure, unspecified; Z88.0 Allergy status to penicillin; Z88.2 Allergy status to sulfonamides; Z88.7 Allergy status to serum and vaccine; Z88.8 Allergy status to other drugs, medicaments and biological substances; Z91.041 Radiographic dye allergy status; Z95.5 Presence of coronary angioplasty implant and graft; Z98.42 Cataract extraction status, left eye; Z86.711 Personal history of pulmonary embolism; Z98.41 Cataract extraction status, right eye; Z96.651 Presence of right artificial knee joint
CPT/HCPCS: 99284

== ENCOUNTER 2020-05-20 14:33 | Emergency (ER) | payer MEDICARE, OTHER ==
[2020-05-20 14:42] VITALS: BP 161/77; PULSE 75; TEMP 98.3
[2020-05-20] MEDS ORDERED: traMADol 50 MG TAB PO STA (14:56)
--- NOTE | 2020-05-20 15:26 | ED ---
Extremity Problem HPI - General Chief complaint: Extremity Problem,Nontraumatic Stated complaint: LEG PAIN Time Seen by Provider: 05/20/20 14:42 Source: patient, EMS Mode of arrival: EMS Limitations: no limitations - History of Present Illness Initial comments: Patient is a 60-year-old female, well-known to the ER, presenting with complaints of pain in her left lower leg. Patient was in the ER yesterday for same complaint and did receive an ultrasound which was negative for DVT. Patient states her pain has continued today so she came back in. She states she did not fall or have any other trauma to her leg. She denies any fever, chills, nausea, vomiting. She denies any surgeries to her left lower leg. She has no further complaints. - Related Data Home Medications Medication Instructions Recorded Confirmed Carvedilol [Coreg] 25 mg PO BID 06/07/17 05/12/20 Levothyroxine Sodium [Synthroid] 137 mcg PO DAILY 10/20/17 05/12/20 Montelukast [Singulair] 10 mg PO DAILY 06/28/18 05/12/20 DULoxetine HCL [Cymbalta] 60 mg PO BID 08/15/18 05/12/20 rOPINIRole HCL [Requip] 4 mg PO BID 11/18/18 05/12/20 Torsemide [Demadex] 50 mg PO SUTUTHSA 12/15/18 05/12/20 Torsemide [Demadex] 100 mg PO MOWEFR 12/15/18 05/12/20 Acetaminophen [Tylenol 8 Hour] 650 mg PO TID 08/14/19 05/12/20 Loratadine [Claritin] 10 mg PO DAILY 08/14/19 05/12/20 Magnesium Oxide [Mag-Ox] 400 mg PO DAILY 08/14/19 05/12/20 Multivitamins, Thera [Multivitamin 1 tab PO DAILY 08/14/19 05/12/20 (formulary)] Omeprazole 20 mg PO DAILY 08/14/19 05/12/20 allopurinoL [Zyloprim] 100 mg PO DAILY 08/14/19 05/12/20 Ferrous Gluconate 324 mg PO BID 01/19/20 05/12/20 Gabapentin [Neurontin] 400 mg PO TID 01/19/20 05/12/20 Melatonin 10 mg PO HS 01/19/20 05/12/20 Tolnaftate [Tinactin] 1 applic TOPICAL DAILY 01/19/20 05/12/20 Diclofenac Sodium [Voltaren Gel] 4 gram TOPICAL QID PRN 04/03/20 05/12/20 Potassium Chloride ER [K-Dur 10] 10 meq PO DAILY 04/03/20 05/12/20 Cholecalciferol [Vitamin D3 (25 5,000 unit PO DAILY 04/28/20 05/12/20 Mcg = 1000 Iu)] Paliperidone Palmitate [Invega 117 mg IM Q28D 05/12/20 05/12/20 Sustenna] QUEtiapine [SEROquel] 25 mg PO TID 05/12/20 05/12/20 Sennosides/Docusate Sodium [Senna 2 tab PO HS 05/12/20 05/12/20 Plus 8.6-50 mg Tablet] lamoTRIgine [LaMICtal] 200 mg PO DAILY 05/12/20 05/12/20 traMADol HCL 50 mg PO Q8H PRN 05/12/20 05/12/20 Previous Rx's Medication Instructions Recorded Nystatin 100,000 Unit/gm Powd 1 applic TOPICAL BID 7 Days #15 gm 10/14/19 [Mycostatin Powder] Cephalexin [Keflex] 500 mg PO Q6HR 7 Days #28 cap 05/10/20 Allergies Allergy/AdvReac Type Severity Reaction Status Date / Time buspirone [From BuSpar] Allergy Rash/Hives Verified 05/12/20 23:15 haloperidol [From Haldol] Allergy Swelling Verified 05/12/20 23:15 hydroxyzine [From Vistaril] Allergy Rash/Hives Verified 05/12/20 23:15 iodine Allergy Swelling Verified 05/12/20 23:15 Penicillins Allergy Swelling Verified 05/12/20 23:15 prochlorperazine Allergy Rash/Hives Verified 05/12/20 23:15 Sulfa (Sulfonamide Allergy Rash/Hives Verified 05/12/20 23:15 Antibiotics) Tetanus Vaccines and Toxoid Allergy Rash/Hives Verified 05/12/20 23:15 [Tetanus Vaccines & Toxoid] trifluoperazine HCl Allergy Unknown Verified 05/12/20 23:15 [From Stelazine] Review of Systems ROS Statement: Those systems with pertinent positive or pertinent negative responses have been documented in the HPI. ROS Other: All systems not noted in ROS Statement are negative. Past Medical History Past Medical History: Asthma, Heart Failure, COPD, Diabetes Mellitus, GERD/Reflux, Hyperlipidemia, Hypertension, Musculoskeletal Disorder, Osteoarthritis (OA), Pneumonia, Pulmonary Embolus (PE), Thyroid Disorder Additional Past Medical History / Comment(s): chronic low back pain, herniated discs, RLS, leg edema, anemia, gout bilateral feet, hypothyroid, UTIs, hx cellulitis, cataracts, macular degeneration History of Any Multi-Drug Resistant Organisms: None Reported Past Surgical History: Bariatric Surgery, Heart Catheterization, Hernia Repair, Orthopedic Surgery Additional Past Surgical History / Comment(s): Total Right knee replacement, 3 abdominal hernia repairs, left hip repair d/t fracture, gastric bypass/revision, colonoscopy. Past Anesthesia/Blood Transfusion Reactions: No Reported Reaction Past Psychological History: Anxiety, Bipolar, Depression, Panic Disorder, PTSD Smoking Status: Never smoker Past Alcohol Use History: Occasional Past Drug Use History: None Reported - Past Family History Mother Family Medical History: Cancer Additional Family Medical History / Comment(s): lung cancer Father Family Medical History: Diabetes Mellitus Additional Family Medical History / Comment(s): "my dad from a blood clot that traveled from his leg to his lung and also caused a heart attack." Brother(s) Family Medical History: Diabetes Mellitus Sister(s) Additional Family Medical History / Comment(s): "her heart races too fast" General Exam - General Exam Comments Initial Comments: GENERAL: Patient is well-developed and well-nourished. Patient is nontoxic and in no acute distress. HEAD: Atraumatic, normocephalic. EYES: Pupils equal round and reactive to light, extraocular movements intact, sclera anicteric, conjunctiva are normal. Eyelids were unremarkable. ENT: TMs normal, nares patent, oropharynx clear without exudates. Moist mucous membranes. NECK: Normal range of motion, supple without lymphadenopathy or JVD. LUNGS: Unlabored respirations. Breath sounds clear to auscultation bilaterally and equal. No wheezes rales or rhonchi. HEART: Regular rate and rhythm without murmurs, rubs or gallops. ABDOMEN: Soft, nontender, normoactive bowel sounds. No guarding, no rebound. No masses appreciated. : Deferred MUSCULOSKELETAL: Mild pain to palpation of the posterior aspect of her left lower leg, there is no erythema or signs of infection. She has normal strength. She is neurovascular intact. Normal extremities with adequate strength and normal range of motion, no pitting or edema. No clubbing or cyanosis. NEUROLOGICAL: Patient is alert and oriented x 3. Motor and sensory are also intact. Cranial nerves II through XII grossly intact. Symmetrical smile. Normal speech, normal gait. PSYCH: Normal mood, normal affect. SKIN: Warm, Dry, normal turgor, no rashes or lesions noted. Limitations: no limitations Course Vital Signs 05/20/20 14:36 Temperature 98.3 F Pulse Rate 75 Respiratory 20 Rate Blood Pressure 161/77 O2 Sat by Pulse 97 Oximetry Medical Decision Making - Medical Decision Making Patient is a 60-year-old female, well-known to the ER presenting with left lower leg pain. Patient was seen in the ER yesterday forcing complaints, ultrasound yesterday revealed no evidence of DVT. Patient denies any falls or trauma. I did offer the patient an x-ray of her left lower leg however patient refused stating she just wants to go back home. I also did offer her a tablet of tramadol which she also refused. Patient will be discharged home. Recommended ice, heat to the area. I suggested this is most likely just a muscle strain. Return parameters were discussed with the patient she verbalized understanding. Disposition Clinical Impression: Muscle strain of left lower leg Disposition: HOME SELF-CARE Condition: Stable Instructions (If sedation given, give patient instructions): Muscle Strain (ED) Additional Instructions: Please return to the Emergency Department if symptoms worsen or any other concerns. Recommended heat or ice to the area, gentle stretching. Follow up with PCP. Is patient prescribed a controlled substance at d/c from ED?: No Referrals: Beau Jade MD [Primary Care Provider] - 1-2 days
[2020-05-20 16:05] VITALS: RESP 19
== END 2020-05-20 16:07 | disposition home or self-care (01) ==
LOC: EC 14:33
DX: S86.912A Strain of unspecified muscle(s) and tendon(s) at lower leg level, left leg, initial encounter (principal); F41.9 Anxiety disorder, unspecified; F31.9 Bipolar disorder, unspecified; F41.0 Panic disorder [episodic paroxysmal anxiety]; F43.10 Post-traumatic stress disorder, unspecified; E03.9 Hypothyroidism, unspecified; G25.81 Restless legs syndrome; J44.9 Chronic obstructive pulmonary disease, unspecified; I11.0 Hypertensive heart disease with heart failure; I50.9 Heart failure, unspecified; E11.9 Type 2 diabetes mellitus without complications; M10.9 Gout, unspecified; K21.9 Gastro-esophageal reflux disease without esophagitis; E78.5 Hyperlipidemia, unspecified; M19.90 Unspecified osteoarthritis, unspecified site; Z79.01 Long term (current) use of anticoagulants; Z79.890 Hormone replacement therapy; Z79.899 Other long term (current) drug therapy; Z95.5 Presence of coronary angioplasty implant and graft; Z96.651 Presence of right artificial knee joint; Z98.42 Cataract extraction status, left eye; Z98.41 Cataract extraction status, right eye; Z86.711 Personal history of pulmonary embolism; Z88.0 Allergy status to penicillin; Z88.2 Allergy status to sulfonamides; Z88.7 Allergy status to serum and vaccine; Z88.8 Allergy status to other drugs, medicaments and biological substances; Z91.041 Radiographic dye allergy status; X58.XXXA Exposure to other specified factors, initial encounter
CPT/HCPCS: 99283

== ENCOUNTER 2020-05-23 20:50 | Emergency (ER) | payer MEDICARE, OTHER ==
[2020-05-23 21:00] VITALS: TEMP 98
[2020-05-23] MEDS ORDERED: MORPHINE SULFATE 4 MG/ML SYRINGE IV STA (22:17)
[2020-05-23] MEDS ORDERED: SODIUM CHLORIDE 0.9% 500 ML 500 ML IV ONE (22:17)
[2020-05-23] MEDS ORDERED: diphenhydrAMINE 50 MG/ML 1 ML VIAL IVP STA (22:17)
[2020-05-23 23:21] LABS: Basophils % (A) 0 %; Eosinophils # (A) 0.2 k/uL (0-0.7); Eosinophils % (A) 3 %; HCT 34.3 % (34.0-46.0); HGB 10.7 gm/dL (11.4-16.0); Lymphocytes # (A) 1.4 k/uL (1.0-4.8); Lymphocytes % (A) 20 %; MCH 28.2 pg (25.0-35.0); MCHC 31.2 g/dL (31.0-37.0); MCV 90.3 fL (80.0-100.0); Mean Platelet Volume 7.3; Monocytes # (A) 0.4 k/uL (0-1.0); Monocytes % (A) 5 %; Neutrophils # (A) 4.6 k/uL (1.3-7.7); Neutrophils % (A) 70 %; Platelet Count 303 k/uL (150-450); RDW 13.8 % (11.5-15.5); WBC 6.6 k/uL (3.8-10.6)
[2020-05-23 23:30] LABS: Albumin 3.9 g/dL (3.5-5.0); Calcium 9.3 mg/dL (8.4-10.2); Potassium 4.5 mmol/L (3.5-5.1); Total Bilirubin 0.3 mg/dL (0.2-1.3); Total Protein 6.7 g/dL (6.3-8.2)
[2020-05-23 23:31] LABS: Appearance,Urine Clear (Clear); Bacteria,Urine Rare /hpf; Bilirubin,Urine Negative (Negative); Blood,Urine Negative (Negative); Color,Urine Yellow; Glucose,Urine (UA) Negative (Negative); Hyaline Casts,Urine 4 /lpf (0-2); Ketones,Urine Negative (Negative); Leukocyte Esterase,Urine Small (Negative); Mucus,Urine Rare /hpf; Nitrite,Urine Negative (Negative); Protein,Urine Negative (Negative); RBC,Urine 1 /hpf (0-5); Specific Gravity,Urine 1.013 (1.001-1.035); Squamous Epithelial Cell,Urine 2 /hpf (0-4); Urobilinogen,Urine <2.0 mg/dL (<2.0); WBC,Urine 4 /hpf (0-5)
--- NOTE | 2020-05-24 00:23 | ED ---
General Adult HPI - General Chief complaint: Nausea/Vomiting/Diarrhea Stated complaint: Nausea Time Seen by Provider: 05/23/20 21:31 Source: patient, EMS, RN notes reviewed, old records reviewed Mode of arrival: EMS Limitations: no limitations - History of Present Illness Initial comments: 60-year-old female patient presents to ED for evaluation of nausea diarrhea and some right lower quadrant abdominal pain for last day or so. Patient states that she is having a little bit of a mild generalized pressure headache to have this is not seriously denies any red flag symptoms. Denies any chest pain shortness of breath or any other acute complaints. Systemic: Pt denies fatigue, fever/chills, rash. Pt denies weakness, night sweats, weight loss. Neuro: Pt denies headache, visual disturbances, syncope or pre-syncope. HEENT: Pt denies ocular discharge or irritation, otalgia, rhinorrhea, pharyngitis or notable lymphadenopathy. Cardiopulmonary: Pt denies chest pain, SOB, heart palpitations, dyspnea on exertion. Abdominal/GI: Pt denies n/d. : Pt denies dysuria, burning w/ urination, frequency/urgency. Denies new onset urinary or bowel incontinence. MSK: Pt denies myalgia, loss of strength or function in extremities. Neuro: Pt denies new onset weakness, paresthesias. - Related Data Home Medications Medication Instructions Recorded Confirmed Carvedilol [Coreg] 25 mg PO BID 06/07/17 05/12/20 Levothyroxine Sodium [Synthroid] 137 mcg PO DAILY 10/20/17 05/12/20 Montelukast [Singulair] 10 mg PO DAILY 06/28/18 05/12/20 DULoxetine HCL [Cymbalta] 60 mg PO BID 08/15/18 05/12/20 rOPINIRole HCL [Requip] 4 mg PO BID 11/18/18 05/12/20 Torsemide [Demadex] 50 mg PO SUTUTHSA 12/15/18 05/12/20 Torsemide [Demadex] 100 mg PO MOWEFR 12/15/18 05/12/20 Acetaminophen [Tylenol 8 Hour] 650 mg PO TID 08/14/19 05/12/20 Loratadine [Claritin] 10 mg PO DAILY 08/14/19 05/12/20 Magnesium Oxide [Mag-Ox] 400 mg PO DAILY 08/14/19 05/12/20 Multivitamins, Thera [Multivitamin 1 tab PO DAILY 08/14/19 05/12/20 (formulary)] Omeprazole 20 mg PO DAILY 08/14/19 05/12/20 allopurinoL [Zyloprim] 100 mg PO DAILY 08/14/19 05/12/20 Ferrous Gluconate 324 mg PO BID 01/19/20 05/12/20 Gabapentin [Neurontin] 400 mg PO TID 01/19/20 05/12/20 Melatonin 10 mg PO HS 01/19/20 05/12/20 Tolnaftate [Tinactin] 1 applic TOPICAL DAILY 01/19/20 05/12/20 Diclofenac Sodium [Voltaren Gel] 4 gram TOPICAL QID PRN 04/03/20 05/12/20 Potassium Chloride ER [K-Dur 10] 10 meq PO DAILY 04/03/20 05/12/20 Cholecalciferol [Vitamin D3 (25 5,000 unit PO DAILY 04/28/20 05/12/20 Mcg = 1000 Iu)] Paliperidone Palmitate [Invega 117 mg IM Q28D 05/12/20 05/12/20 Sustenna] QUEtiapine [SEROquel] 25 mg PO TID 05/12/20 05/12/20 Sennosides/Docusate Sodium [Senna 2 tab PO HS 05/12/20 05/12/20 Plus 8.6-50 mg Tablet] lamoTRIgine [LaMICtal] 200 mg PO DAILY 05/12/20 05/12/20 traMADol HCL 50 mg PO Q8H PRN 05/12/20 05/12/20 Previous Rx's Medication Instructions Recorded Nystatin 100,000 Unit/gm Powd 1 applic TOPICAL BID 7 Days #15 gm 10/14/19 [Mycostatin Powder] Cephalexin [Keflex] 500 mg PO Q6HR 7 Days #28 cap 05/10/20 Allergies Allergy/AdvReac Type Severity Reaction Status Date / Time buspirone [From BuSpar] Allergy Rash/Hives Verified 05/12/20 23:15 haloperidol [From Haldol] Allergy Swelling Verified 05/12/20 23:15 hydroxyzine [From Vistaril] Allergy Rash/Hives Verified 05/12/20 23:15 iodine Allergy Swelling Verified 05/12/20 23:15 Penicillins Allergy Swelling Verified 05/12/20 23:15 prochlorperazine Allergy Rash/Hives Verified 05/12/20 23:15 Sulfa (Sulfonamide Allergy Rash/Hives Verified 05/12/20 23:15 Antibiotics) Tetanus Vaccines and Toxoid Allergy Rash/Hives Verified 05/12/20 23:15 [Tetanus Vaccines & Toxoid] trifluoperazine HCl Allergy Unknown Verified 05/12/20 23:15 [From Stelazine] Review of Systems ROS Statement: Those systems with pertinent positive or pertinent negative responses have been documented in the HPI. ROS Other: All systems not noted in ROS Statement are negative. Past Medical History Past Medical History: Asthma, Heart Failure, COPD, Diabetes Mellitus, GERD/Reflux, Hyperlipidemia, Hypertension, Musculoskeletal Disorder, Osteoarthritis (OA), Pneumonia, Pulmonary Embolus (PE), Thyroid Disorder Additional Past Medical History / Comment(s): chronic low back pain, herniated discs, RLS, leg edema, anemia, gout bilateral feet, hypothyroid, UTIs, hx cellulitis, cataracts, macular degeneration History of Any Multi-Drug Resistant Organisms: None Reported Past Surgical History: Bariatric Surgery, Heart Catheterization, Hernia Repair, Orthopedic Surgery Additional Past Surgical History / Comment(s): Total Right knee replacement, 3 abdominal hernia repairs, left hip repair d/t fracture, gastric bypass/revision, colonoscopy. Past Anesthesia/Blood Transfusion Reactions: No Reported Reaction Past Psychological History: Anxiety, Bipolar, Depression, Panic Disorder, PTSD Smoking Status: Never smoker Past Alcohol Use History: Occasional Past Drug Use History: None Reported - Past Family History Mother Family Medical History: Cancer Additional Family Medical History / Comment(s): lung cancer Father Family Medical History: Diabetes Mellitus Additional Family Medical History / Comment(s): "my dad from a blood clot that traveled from his leg to his lung and also caused a heart attack." Brother(s) Family Medical History: Diabetes Mellitus Sister(s) Additional Family Medical History / Comment(s): "her heart races too fast" General Exam - General Exam Comments Initial Comments: Constitutional: NAD, AOX3, Pt has pleasant affect. HEENT: NC/AT, trachea midline, neck supple, no lymphadenopathy. Posterior pha rynx non erythematous, without exudates. External ears appear normal, without discharge. Mucous membranes moist. Eyes PERRLA, EOM intact. There is no scleral icterus. No pallor noted. Cardiopulmonary: RRR, no murmurs, rubs or gallops, no JVD noted. Lungs CTAB in anterior and posterior bowser. No peripheral edema. Abdominal exam: Abdomen soft and non-distended. Abdomen mildly tender to palpation in RLQ region. Bowel sounds active in LLQ. No hepatosplenomegaly. No ecchymosis Neuro: CN II-XII intact. No nuchal rigidity. No raccon eyes, no smith sign, no hemotympanum. No cervical spinal tenderness. MSK: No posterior calf tenderness bilaterally, homans sign negative bilaterally. Posterior tibialis and radial pulse +2 bilaterally. Sensation intact in upper and lower extremities. Full active ROM in upper and lower extremities, 5/5 stregnth. Limitations: no limitations Course Vital Signs 05/23/20 05/24/20 20:52 01:44 Temperature 98.0 F Pulse Rate 87 76 Respiratory 18 16 Rate Blood Pressure 134/74 158/82 O2 Sat by Pulse 96 98 Oximetry Medical Decision Making - Medical Decision Making 60-year-old female patient ER for nausea diarrhea abdominal cramping some abdominal pain. Patient vital signs are stable, afebrile. Patient also reports a mild headache. Physical exam is a mild right lower quadrant tenderness. Neurologic exam is intact. Laboratory investigations are overall unremarkable. CT abdomen and pelvis displayed dilated gallbladder. Patient's pain has resolved abdomen is soft and nontender. Patient discharged with outpatient surgical follow-up and return precautions. Case discussed with Dr. Allen. - Lab Data Result diagrams: 05/23/20 23:12 05/23/20 23:12 Lab Results 05/23/20 05/23/20 05/23/20 Range/Units 23:12 23:12 23:12 WBC 6.6 (3.8-10.6) k/uL RBC 3.80 (3.80-5.40) m/uL Hgb 10.7 L (11.4-16.0) gm/dL Hct 34.3 (34.0-46.0) % MCV 90.3 (80.0-100.0) fL MCH 28.2 (25.0-35.0) pg MCHC 31.2 (31.0-37.0) g/dL RDW 13.8 (11.5-15.5) % Plt Count 303 (150-450) k/uL Neutrophils % 70 % Lymphocytes % 20 % Monocytes % 5 % Eosinophils % 3 % Basophils % 0 % Neutrophils # 4.6 (1.3-7.7) k/uL Lymphocytes # 1.4 (1.0-4.8) k/uL Monocytes # 0.4 (0-1.0) k/uL Eosinophils # 0.2 (0-0.7) k/uL Basophils # 0.0 (0-0.2) k/uL Sodium 135 L (137-145) mmol/L Potassium 4.5 (3.5-5.1) mmol/L Chloride 106 (98-107) mmol/L Carbon Dioxide 22 (22-30) mmol/L Anion Gap 7 mmol/L BUN 23 H (7-17) mg/dL Creatinine 0.84 (0.52-1.04) mg/dL Est GFR (CKD-EPI)AfAm 88 (>60 ml/min/1.73 sqM) Est GFR (CKD-EPI)NonAf 76 (>60 ml/min/1.73 sqM) Glucose 106 H (74-99) mg/dL Calcium 9.3 (8.4-10.2) mg/dL Total Bilirubin 0.3 (0.2-1.3) mg/dL AST 27 (14-36) U/L ALT 14 (4-34) U/L Alkaline Phosphatase 86 (38-126) U/L Total Protein 6.7 (6.3-8.2) g/dL Albumin 3.9 (3.5-5.0) g/dL Urine Color Yellow Urine Appearance Clear (Clear) Urine pH 5.0 (5.0-8.0) Ur Specific Davy 1.013 (1.001-1.035) Urine Protein Negative (Negative) Urine Glucose (UA) Negative (Negative) Urine Ketones Negative (Negative) Urine Blood Negative (Negative) Urine Nitrite Negative (Negative) Urine Bilirubin Negative (Negative) Urine Urobilinogen <2.0 (<2.0) mg/dL Ur Leukocyte Esterase Small H (Negative) Urine RBC 1 (0-5) /hpf Urine WBC 4 (0-5) /hpf Ur Squamous Epith Cells 2 (0-4) /hpf Urine Bacteria Rare H (None) /hpf Hyaline Casts 4 H (0-2) /lpf Urine Mucus Rare H (None) /hpf Disposition Clinical Impression: Abdominal pain Disposition: HOME SELF-CARE Condition: Stable Instructions (If sedation given, give patient instructions): Abdominal Pain (ED) Additional Instructions: Follow up with PCP tomorrow. Follow up with surgeon tomorrow. Your gallbladder is enlarged. I recommended a low-fat diet. Return to ED with any worsening symptoms. Is patient prescribed a controlled substance at d/c from ED?: No Referrals: Beau Jade MD [Primary Care Provider] - 1-2 days
--- NOTE | 2020-05-24 01:31 | CT ---
EXAMINATION TYPE: CT abdomen pelvis w con DATE OF EXAM: 05/24/2020 COMPARISON: 05/18/2019 HISTORY: ABD PAIN WITH N/V/D BODY ACHES CT DLP: 3585 mGycm Automated exposure control for dose reduction was used. CONTRAST: Performed with IV Contrast, patient injected with 100 mL of Isovue 300. Images were obtained from the diaphragm to the floor the pelvis with IV contrast. FINDINGS: Lung bases are clear of consolidation. There is no pleural effusion. Gallbladder is moderately dilate d and measures 11.3 x 6.3 cm. Liver shows no focal defect. There are clips from apparent gastric ashley atric surgery. Spleen is intact. There is no pancreatic mass. There is no adrenal mass. Kidneys show satisfactory contrast opacification. There is variable mild co rtical thinning in the upper poles of both kidneys. There is no hydronephrosis. Delayed images show l ittle contrast in the renal collecting systems. This could relate to some degree of renal decreased f unction. There is no retroperitoneal adenopathy. Ureters are not dilated. Bladder distends smoothly. Exam is limited by patient's size. There is left hip nailing. The bony pelvis is intact. There is no mesenteric edema. There is no ascites or free air. There is no bowel obstruction. Appendi x is not seen with certainty. There is no sign of appendicitis. There is multilevel spondylotic quintero es in the lumbar spine. There is no lumbar compression fracture. IMPRESSION: Previous bariatric surgery. Appendix not seen. No sign of thickened appendix. No bowel obstruction. P revious anterior abdominal wall upper abdomen surgery. This appears similar to old exam. No acute abn ormality of the abdomen pelvis. Variable cortical thinning in the kidneys could relate to some renal atrophy and scarring also presen t on old exam. Markedly dilated gallbladder suggestive of cholecystitis or significant gallbladder dysfunction. Possible decreased renal function.
[2020-05-24 01:45] VITALS: BP 158/82; PULSE 76; RESP 16
== END 2020-05-24 02:37 | disposition home or self-care (01) ==
LOC: EC 20:50
DX: R10.31 Right lower quadrant pain (principal); R19.7 Diarrhea, unspecified; K82.8 Other specified diseases of gallbladder; R11.0 Nausea; R51 Headache; I11.0 Hypertensive heart disease with heart failure; I50.9 Heart failure, unspecified; E78.5 Hyperlipidemia, unspecified; K21.9 Gastro-esophageal reflux disease without esophagitis; M19.90 Unspecified osteoarthritis, unspecified site; E03.9 Hypothyroidism, unspecified; G89.29 Other chronic pain; M54.5 Low back pain; G25.81 Restless legs syndrome; D64.9 Anemia, unspecified; M10.9 Gout, unspecified; H35.30 Unspecified macular degeneration; F41.0 Panic disorder [episodic paroxysmal anxiety]; F31.9 Bipolar disorder, unspecified; F43.10 Post-traumatic stress disorder, unspecified; Z79.890 Hormone replacement therapy; Z79.899 Other long term (current) drug therapy; Z88.8 Allergy status to other drugs, medicaments and biological substances; Z88.0 Allergy status to penicillin; Z88.7 Allergy status to serum and vaccine; Z88.2 Allergy status to sulfonamides; Z91.048 Other nonmedicinal substance allergy status; Z86.711 Personal history of pulmonary embolism; Z96.651 Presence of right artificial knee joint; Z98.84 Bariatric surgery status; Z95.5 Presence of coronary angioplasty implant and graft; Z98.890 Other specified postprocedural states
CPT/HCPCS: 99285 ×3; 96374 ×2; 96375 ×2; 96361 ×2; 36415; 80053; 85025; 81001; 76705; 74177; J2270; J1200; Q9967

== ENCOUNTER 2020-05-24 16:03 | Emergency (ER) | payer MEDICARE, OTHER ==
[2020-05-24 16:08] VITALS: BP 129/89; PULSE 81; RESP 18; TEMP 97.8
[2020-05-24] MEDS ORDERED: HYDROcodone/APAP 5-325MG 1 EACH TAB PO STA ×2 (16:26→18:42)
[2020-05-24] MEDS ORDERED: ONDANSETRON ODT 4 MG TAB PO STA (16:26)
--- NOTE | 2020-05-24 16:31 | ED ---
Abdominal Pain HPI - General Chief Complaint: Abdominal Pain Stated Complaint: abd pain Time Seen by Provider: 05/24/20 16:06 Source: EMS, RN notes reviewed, old records reviewed Mode of arrival: EMS Limitations: no limitations - History of Present Illness Initial Comments: This is a 40-year-old female DF she presents today and evaluation regards to abd ominal pain. Patient seen last night here in the ER prior for similar complaints. Patient is well-known for facility for issues of mental health as well as multiple other significant complaints. Patient states the pain is more epigastric right-sided. No fevers mild nausea no vomiting no diarrhea MD Complaint: abdominal pain -: unknown Location: diffuse, periumbilical, RUQ Radiation: RLQ Migration to: no migration, suprapubic Severity: moderate Severity scale (1-10): 4 Quality: cramping, aching Consistency: intermittent Improves With: nothing Worsens With: nothing Associated Symptoms: nausea - Related Data Home Medications Medication Instructions Recorded Confirmed Carvedilol [Coreg] 25 mg PO BID 06/07/17 05/12/20 Levothyroxine Sodium [Synthroid] 137 mcg PO DAILY 10/20/17 05/12/20 Montelukast [Singulair] 10 mg PO DAILY 06/28/18 05/12/20 DULoxetine HCL [Cymbalta] 60 mg PO BID 08/15/18 05/12/20 rOPINIRole HCL [Requip] 4 mg PO BID 11/18/18 05/12/20 Torsemide [Demadex] 50 mg PO SUTUTHSA 12/15/18 05/12/20 Torsemide [Demadex] 100 mg PO MOWEFR 12/15/18 05/12/20 Acetaminophen [Tylenol 8 Hour] 650 mg PO TID 08/14/19 05/12/20 Loratadine [Claritin] 10 mg PO DAILY 08/14/19 05/12/20 Magnesium Oxide [Mag-Ox] 400 mg PO DAILY 08/14/19 05/12/20 Multivitamins, Thera [Multivitamin 1 tab PO DAILY 08/14/19 05/12/20 (formulary)] Omeprazole 20 mg PO DAILY 08/14/19 05/12/20 allopurinoL [Zyloprim] 100 mg PO DAILY 08/14/19 05/12/20 Ferrous Gluconate 324 mg PO BID 01/19/20 05/12/20 Gabapentin [Neurontin] 400 mg PO TID 01/19/20 05/12/20 Melatonin 10 mg PO HS 01/19/20 05/12/20 Tolnaftate [Tinactin] 1 applic TOPICAL DAILY 01/19/20 05/12/20 Diclofenac Sodium [Voltaren Gel] 4 gram TOPICAL QID PRN 04/03/20 05/12/20 Potassium Chloride ER [K-Dur 10] 10 meq PO DAILY 04/03/20 05/12/20 Cholecalciferol [Vitamin D3 (25 5,000 unit PO DAILY 04/28/20 05/12/20 Mcg = 1000 Iu)] Paliperidone Palmitate [Invega 117 mg IM Q28D 05/12/20 05/12/20 Sustenna] QUEtiapine [SEROquel] 25 mg PO TID 05/12/20 05/12/20 Sennosides/Docusate Sodium [Senna 2 tab PO HS 05/12/20 05/12/20 Plus 8.6-50 mg Tablet] lamoTRIgine [LaMICtal] 200 mg PO DAILY 05/12/20 05/12/20 traMADol HCL 50 mg PO Q8H PRN 05/12/20 05/12/20 Previous Rx's Medication Instructions Recorded Nystatin 100,000 Unit/gm Powd 1 applic TOPICAL BID 7 Days #15 gm 10/14/19 [Mycostatin Powder] Cephalexin [Keflex] 500 mg PO Q6HR 7 Days #28 cap 05/10/20 Allergies Allergy/AdvReac Type Severity Reaction Status Date / Time buspirone [From BuSpar] Allergy Rash/Hives Verified 05/12/20 23:15 haloperidol [From Haldol] Allergy Swelling Verified 05/12/20 23:15 hydroxyzine [From Vistaril] Allergy Rash/Hives Verified 05/12/20 23:15 iodine Allergy Swelling Verified 05/12/20 23:15 Penicillins Allergy Swelling Verified 05/12/20 23:15 prochlorperazine Allergy Rash/Hives Verified 05/12/20 23:15 Sulfa (Sulfonamide Allergy Rash/Hives Verified 05/12/20 23:15 Antibiotics) Tetanus Vaccines and Toxoid Allergy Rash/Hives Verified 05/12/20 23:15 [Tetanus Vaccines & Toxoid] trifluoperazine HCl Allergy Unknown Verified 05/12/20 23:15 [From Stelazine] Review of Systems ROS Statement: Those systems with pertinent positive or pertinent negative responses have been documented in the HPI. ROS Other: All systems not noted in ROS Statement are negative. Past Medical History Past Medical History: Asthma, Heart Failure, COPD, Diabetes Mellitus, GERD/Refl ux, Hyperlipidemia, Hypertension, Musculoskeletal Disorder, Osteoarthritis (OA), Pneumonia, Pulmonary Embolus (PE), Thyroid Disorder Additional Past Medical History / Comment(s): chronic low back pain, herniated discs, RLS, leg edema, anemia, gout bilateral feet, hypothyroid, UTIs, hx cellulitis, cataracts, macular degeneration History of Any Multi-Drug Resistant Organisms: None Reported Past Surgical History: Bariatric Surgery, Heart Catheterization, Hernia Repair, Orthopedic Surgery Additional Past Surgical History / Comment(s): Total Right knee replacement, 3 abdominal hernia repairs, left hip repair d/t fracture, gastric bypass/revision, colonoscopy. Past Anesthesia/Blood Transfusion Reactions: No Reported Reaction Past Psychological History: Anxiety, Bipolar, Depression, Panic Disorder, PTSD Smoking Status: Never smoker Past Alcohol Use History: Occasional Past Drug Use History: None Reported - Past Family History Mother Family Medical History: Cancer Additional Family Medical History / Comment(s): lung cancer Father Family Medical History: Diabetes Mellitus Additional Family Medical History / Comment(s): "my dad from a blood clot that traveled from his leg to his lung and also caused a heart attack." Brother(s) Family Medical History: Diabetes Mellitus Sister(s) Additional Family Medical History / Comment(s): "her heart races too fast" General Exam Limitations: no limitations General appearance: alert, in no apparent distress Head exam: Present: atraumatic, normocephalic, normal inspection Eye exam: Present: normal appearance, PERRL, EOMI. Absent: scleral icterus, conjunctival injection, periorbital swelling ENT exam: Present: normal exam, mucous membranes moist Neck exam: Present: normal inspection. Absent: tenderness, meningismus, lymphadenopathy Respiratory exam: Present: normal lung sounds bilaterally. Absent: respiratory distress, wheezes, rales, rhonchi, stridor Cardiovascular Exam: Present: regular rate, normal rhythm, normal heart sounds. Absent: systolic murmur, diastolic murmur, rubs, gallop, clicks GI/Abdominal exam: Present: soft, normal bowel sounds. Absent: distended, t enderness, guarding, rebound, rigid Extremities exam: Present: normal inspection, full ROM, normal capillary refill. Absent: tenderness, pedal edema, joint swelling, calf tenderness Back exam: Present: normal inspection Neurological exam: Present: alert, oriented X3, CN II-XII intact Psychiatric exam: Present: normal affect, normal mood Skin exam: Present: warm, dry, intact, normal color. Absent: rash Course Vital Signs 05/24/20 16:05 Temperature 97.8 F Pulse Rate 81 Respiratory 18 Rate Blood Pressure 129/89 O2 Sat by Pulse 95 Oximetry - Reevaluation(s) Reevaluation #1: 05/24/20 17:02 Medical record is reviewed 05/24/20 17:02 ER visit including imaging from last night has been reviewed Reevaluation #2: 05/24/20 18:18 Patient symptoms are significantly improved Reevaluation #3: 05/24/20 18:19 Patient is informed results and questions are answered Medical Decision Making - Medical Decision Making 60-year-old female DF for eval Letts pain nonspecific computed tomography scan yesterday was negative in the gallbladder disease also gallbladder today is negative. Patient will be discharged home - Radiology Data Radiology results: report reviewed (Ultrasound gallbladder is negative although does show dilated common bile duct history of gastric bypass), image reviewed Disposition Clinical Impression: Abdominal pain Disposition: HOME SELF-CARE Condition: Good Instructions (If sedation given, give patient instructions): Abdominal Pain (ED) Is patient prescribed a controlled substance at d/c from ED?: No Referrals: Beau Jade MD [Primary Care Provider] - 1-2 days
--- NOTE | 2020-05-24 17:59 | US ---
EXAMINATION TYPE: US gallbladder DATE OF EXAM: 05/24/2020 COMPARISON: CT same date CLINICAL HISTORY: pain. Pain x 2 days. Hx gastric bypass surgery, hernia repairs. EXAM MEASUREMENTS: Liver Length: 18.5 cm Gallbladder Wall: 0.27 cm CBD: 1.04 cm Right Kidney: 10.1 x 5.1 x 5.5 cm Limited due to patient body habitus and overlying bowel gas. Pancreas: Obscured by overlying bowel gas. Liver: Limited, appears to have an increased echogenicity and attenuation. Appears enlarged. Appears coarse. Most images taken intercostally. Gallbladder: Limited. Possible internal echoes versus artifact. Evidence for sonographic Little's sign: No CBD: Appears dilated. Right Kidney: Appears heterogeneous, limited. IMPRESSION: Exam is limited technically. There is hepatomegaly. There may be underlying hepatic steat osis. Dilated common bile duct, consider gastroenterology consult. Suboptimal visualization of the ga llbladder.
== END 2020-05-24 19:07 | disposition home or self-care (01) ==
LOC: EC 16:03
DX: R10.13 Epigastric pain (principal); R10.11 Right upper quadrant pain; R10.33 Periumbilical pain; I11.0 Hypertensive heart disease with heart failure; I50.9 Heart failure, unspecified; J44.9 Chronic obstructive pulmonary disease, unspecified; M19.90 Unspecified osteoarthritis, unspecified site; E03.9 Hypothyroidism, unspecified; F41.9 Anxiety disorder, unspecified; F31.9 Bipolar disorder, unspecified; M54.5 Low back pain; G89.29 Other chronic pain; G25.81 Restless legs syndrome; K21.9 Gastro-esophageal reflux disease without esophagitis; M10.9 Gout, unspecified; F43.10 Post-traumatic stress disorder, unspecified; D64.9 Anemia, unspecified; Z79.899 Other long term (current) drug therapy; Z79.890 Hormone replacement therapy; Z88.8 Allergy status to other drugs, medicaments and biological substances; Z88.0 Allergy status to penicillin; Z91.048 Other nonmedicinal substance allergy status; Z88.2 Allergy status to sulfonamides; Z88.7 Allergy status to serum and vaccine; Z86.711 Personal history of pulmonary embolism; Z98.84 Bariatric surgery status; Z96.651 Presence of right artificial knee joint
CPT/HCPCS: 76705; 99285

== ENCOUNTER 2020-05-29 09:29 | Emergency (ER) | payer MEDICARE, OTHER ==
[2020-05-29 09:34] VITALS: RESP 16
[2020-05-29] MEDS ORDERED: diazePAM 5 MG TAB PO STA (09:50)
--- NOTE | 2020-05-29 09:52 | ED ---
General Adult HPI - General Chief complaint: Extremity Problem,Nontraumatic Stated complaint: Cramping Time Seen by Provider: 05/29/20 09:38 Source: patient, EMS, RN notes reviewed Mode of arrival: EMS Limitations: no limitations - History of Present Illness Initial comments: 60-year-old female presents emergency Department with chief complaint of cramp ing. Patient states she has cramps, in her hands legs. Patient is concerned about her potassium. Patient states his happened on occasion and she states it's usually because of her left leg. Patient states she's been drinking much water. Patient offers no complaints of chest pain or shortness breath. - Related Data Home Medications Medication Instructions Recorded Confirmed Carvedilol [Coreg] 25 mg PO BID 06/07/17 05/12/20 Levothyroxine Sodium [Synthroid] 137 mcg PO DAILY 10/20/17 05/12/20 Montelukast [Singulair] 10 mg PO DAILY 06/28/18 05/12/20 DULoxetine HCL [Cymbalta] 60 mg PO BID 08/15/18 05/12/20 rOPINIRole HCL [Requip] 4 mg PO BID 11/18/18 05/12/20 Torsemide [Demadex] 50 mg PO SUTUTHSA 12/15/18 05/12/20 Torsemide [Demadex] 100 mg PO MOWEFR 12/15/18 05/12/20 Acetaminophen [Tylenol 8 Hour] 650 mg PO TID 08/14/19 05/12/20 Loratadine [Claritin] 10 mg PO DAILY 08/14/19 05/12/20 Magnesium Oxide [Mag-Ox] 400 mg PO DAILY 08/14/19 05/12/20 Multivitamins, Thera [Multivitamin 1 tab PO DAILY 08/14/19 05/12/20 (formulary)] Omeprazole 20 mg PO DAILY 08/14/19 05/12/20 allopurinoL [Zyloprim] 100 mg PO DAILY 08/14/19 05/12/20 Ferrous Gluconate 324 mg PO BID 01/19/20 05/12/20 Gabapentin [Neurontin] 400 mg PO TID 01/19/20 05/12/20 Melatonin 10 mg PO HS 01/19/20 05/12/20 Tolnaftate [Tinactin] 1 applic TOPICAL DAILY 01/19/20 05/12/20 Diclofenac Sodium [Voltaren Gel] 4 gram TOPICAL QID PRN 04/03/20 05/12/20 Potassium Chloride ER [K-Dur 10] 10 meq PO DAILY 04/03/20 05/12/20 Cholecalciferol [Vitamin D3 (25 5,000 unit PO DAILY 04/28/20 05/12/20 Mcg = 1000 Iu)] Paliperidone Palmitate [Invega 117 mg IM Q28D 05/12/20 05/12/20 Sustenna] QUEtiapine [SEROquel] 25 mg PO TID 05/12/20 05/12/20 Sennosides/Docusate Sodium [Senna 2 tab PO HS 05/12/20 05/12/20 Plus 8.6-50 mg Tablet] lamoTRIgine [LaMICtal] 200 mg PO DAILY 05/12/20 05/12/20 traMADol HCL 50 mg PO Q8H PRN 05/12/20 05/12/20 Previous Rx's Medication Instructions Recorded Nystatin 100,000 Unit/gm Powd 1 applic TOPICAL BID 7 Days #15 gm 10/14/19 [Mycostatin Powder] Cephalexin [Keflex] 500 mg PO Q6HR 7 Days #28 cap 05/10/20 Allergies Allergy/AdvReac Type Severity Reaction Status Date / Time buspirone [From BuSpar] Allergy Rash/Hives Verified 05/29/20 09:35 haloperidol [From Haldol] Allergy Swelling Verified 05/29/20 09:35 hydroxyzine [From Vistaril] Allergy Rash/Hives Verified 05/29/20 09:35 iodine Allergy Swelling Verified 05/29/20 09:35 Penicillins Allergy Swelling Verified 05/29/20 09:35 prochlorperazine Allergy Rash/Hives Verified 05/29/20 09:35 Sulfa (Sulfonamide Allergy Rash/Hives Verified 05/29/20 09:35 Antibiotics) Tetanus Vaccines and Toxoid Allergy Rash/Hives Verified 05/29/20 09:35 [Tetanus Vaccines & Toxoid] trifluoperazine HCl Allergy Unknown Verified 05/29/20 09:35 [From Stelazine] Review of Systems ROS Statement: Those systems with pertinent positive or pertinent negative responses have been documented in the HPI. ROS Other: All systems not noted in ROS Statement are negative. Past Medical History Past Medical History: Asthma, Heart Failure, COPD, Diabetes Mellitus, GERD/ Reflux, Hyperlipidemia, Hypertension, Musculoskeletal Disorder, Osteoarthritis (OA), Pneumonia, Pulmonary Embolus (PE), Thyroid Disorder Additional Past Medical History / Comment(s): chronic low back pain, herniated discs, RLS, leg edema, anemia, gout bilateral feet, hypothyroid, UTIs, hx cellulitis, cataracts, macular degeneration History of Any Multi-Drug Resistant Organisms: None Reported Past Surgical History: Bariatric Surgery, Heart Catheterization, Hernia Repair, Orthopedic Surgery Additional Past Surgical History / Comment(s): Total Right knee replacement, 3 abdominal hernia repairs, left hip repair d/t fracture, gastric bypass/revision, colonoscopy. Past Anesthesia/Blood Transfusion Reactions: No Reported Reaction Past Psychological History: Anxiety, Bipolar, Depression, Panic Disorder, PTSD Smoking Status: Never smoker Past Alcohol Use History: Occasional Past Drug Use History: None Reported - Past Family History Mother Family Medical History: Cancer Additional Family Medical History / Comment(s): lung cancer Father Family Medical History: Diabetes Mellitus Additional Family Medical History / Comment(s): "my dad from a blood clot that traveled from his leg to his lung and also caused a heart attack." Brother(s) Family Medical History: Diabetes Mellitus Sister(s) Additional Family Medical History / Comment(s): "her heart races too fast" General Exam Limitations: no limitations General appearance: alert, in no apparent distress Head exam: Present: atraumatic, normocephalic, normal inspection Neck exam: Present: normal inspection, full ROM. Absent: tenderness, meningismus, lymphadenopathy Respiratory exam: Present: normal lung sounds bilaterally. Absent: respiratory distress, wheezes, rales, rhonchi, stridor Cardiovascular Exam: Present: regular rate, normal rhythm, normal heart sounds. Absent: systolic murmur, diastolic murmur, rubs, gallop, clicks Neurological exam: Present: alert, oriented X3, CN II-XII intact Skin exam: Present: warm, dry, intact, normal color. Absent: rash Course Vital Signs 05/29/20 09:31 Temperature 98.2 F Pulse Rate 78 Respiratory 16 Rate Blood Pressure 142/86 O2 Sat by Pulse 98 Oximetry Medical Decision Making - Medical Decision Making 60-year-old female presented for cramps. She is concerned about her potassium level doesn't 4.8 and uses 1.5 was given Mag-Ox. Patient discharged in stable condition return parameters were discussed. - Lab Data Result diagrams: 05/29/20 10:10 05/29/20 10:10 Lab Results 05/29/20 05/29/20 Range/Units 10:10 10:10 WBC 7.6 (3.8-10.6) k/uL RBC 4.08 (3.80-5.40) m/uL Hgb 11.5 (11.4-16.0) gm/dL Hct 35.8 (34.0-46.0) % MCV 87.7 (80.0-100.0) fL MCH 28.1 (25.0-35.0) pg MCHC 32.1 (31.0-37.0) g/dL RDW 13.7 (11.5-15.5) % Plt Count 328 (150-450) k/uL Neutrophils % 69 % Lymphocytes % 20 % Monocytes % 6 % Eosinophils % 3 % Basophils % 1 % Neutrophils # 5.3 (1.3-7.7) k/uL Lymphocytes # 1.5 (1.0-4.8) k/uL Monocytes # 0.4 (0-1.0) k/uL Eosinophils # 0.2 (0-0.7) k/uL Basophils # 0.0 (0-0.2) k/uL Sodium 132 L (137-145) mmol/L Potassium 4.8 (3.5-5.1) mmol/L Chloride 95 L (98-107) mmol/L Carbon Dioxide 30 (22-30) mmol/L Anion Gap 7 mmol/L BUN 19 H (7-17) mg/dL Creatinine 0.77 (0.52-1.04) mg/dL Est GFR (CKD-EPI)AfAm >90 (>60 ml/min/1.73 sqM) Est GFR (CKD-EPI)NonAf 85 (>60 ml/min/1.73 sqM) Glucose 112 H (74-99) mg/dL Calcium 9.1 (8.4-10.2) mg/dL Magnesium 1.5 L (1.6-2.3) mg/dL Disposition Clinical Impression: Muscle cramps, Hypomagnesemia Disposition: HOME SELF-CARE Condition: Stable Instructions (If sedation given, give patient instructions): Hypomagnesemia (ED) Additional Instructions: Please return to the Emergency Department if symptoms worsen or any other concerns. Is patient prescribed a controlled substance at d/c from ED?: No Referrals: Beau Jade MD [Primary Care Provider] - 1-2 days Time of Disposition: 10:41
[2020-05-29 10:25] LABS: Basophils % (A) 1 %; Eosinophils # (A) 0.2 k/uL (0-0.7); Eosinophils % (A) 3 %; HCT 35.8 % (34.0-46.0); HGB 11.5 gm/dL (11.4-16.0); Lymphocytes # (A) 1.5 k/uL (1.0-4.8); Lymphocytes % (A) 20 %; MCH 28.1 pg (25.0-35.0); MCHC 32.1 g/dL (31.0-37.0); MCV 87.7 fL (80.0-100.0); Mean Platelet Volume 7.5; Monocytes # (A) 0.4 k/uL (0-1.0); Monocytes % (A) 6 %; Neutrophils # (A) 5.3 k/uL (1.3-7.7); Neutrophils % (A) 69 %; Platelet Count 328 k/uL (150-450); RBC 4.08 m/uL (3.80-5.40); RDW 13.7 % (11.5-15.5); WBC 7.6 k/uL (3.8-10.6)
[2020-05-29 10:33] LABS: African American GFR (CKD) >90 (>60 ml/min/1.73 sqM); Anion Gap 7 mmol/L; Blood Urea Nitrogen 19 mg/dL (7-17); Calcium 9.1 mg/dL (8.4-10.2); Carbon Dioxide 30 mmol/L (22-30); Chloride 95 mmol/L (98-107); Glucose 112 mg/dL (74-99); Magnesium 1.5 mg/dL (1.6-2.3); Non-African American GFR(CKD) 85 (>60 ml/min/1.73 sqM); Potassium 4.8 mmol/L (3.5-5.1); Sodium 132 mmol/L (137-145)
[2020-05-29] MEDS ORDERED: MAGNESIUM OXIDE 400 MG TAB PO STA (10:39)
[2020-05-29 10:58] VITALS: BP 123/60; PULSE 74; TEMP 98.1
== END 2020-05-29 10:58 | disposition home or self-care (01) ==
LOC: EC 09:29
DX: E83.42 Hypomagnesemia (principal); F41.9 Anxiety disorder, unspecified; F31.9 Bipolar disorder, unspecified; F41.0 Panic disorder [episodic paroxysmal anxiety]; F43.10 Post-traumatic stress disorder, unspecified; J44.9 Chronic obstructive pulmonary disease, unspecified; I50.9 Heart failure, unspecified; I11.0 Hypertensive heart disease with heart failure; K21.9 Gastro-esophageal reflux disease without esophagitis; E78.5 Hyperlipidemia, unspecified; M19.90 Unspecified osteoarthritis, unspecified site; G25.81 Restless legs syndrome; E03.9 Hypothyroidism, unspecified; M10.9 Gout, unspecified; Z79.890 Hormone replacement therapy; Z79.899 Other long term (current) drug therapy; Z95.5 Presence of coronary angioplasty implant and graft; Z96.651 Presence of right artificial knee joint; Z88.0 Allergy status to penicillin; Z88.2 Allergy status to sulfonamides; Z88.7 Allergy status to serum and vaccine; Z88.8 Allergy status to other drugs, medicaments and biological substances; Z91.041 Radiographic dye allergy status
CPT/HCPCS: 36415; 80048; 83735; 85025; 99283

== ENCOUNTER 2020-06-02 14:56 | Inpatient (IN) | payer MEDICARE, OTHER ==
--- NOTE | 2020-06-02 15:10 | ED ---
General Adult HPI - General Stated complaint: SOB Time Seen by Provider: 06/02/20 15:09 - History of Present Illness Initial comments: Patient is a 60-year-old female with Left medical history presenting to the emergency department with a complaint of shortness of breath. Patient states she has been coughing for the past 2 days. States she saw her primary care physician today who obtained a chest x-ray and told her that she has pneumonia. Patient states she's come in to be evaluated for a pneumonia. He does report some shortness of breath but denies any wheezing. States he does have occasional nonproductive cough secondary to her COPD. She is not oxygen dependent. He does report left-sided chest pain without any radiation. Denies abdominal pain, back pain. Does report chills but no fevers. Denies rhinorrhea, sore throat or otalgia. - Related Data Home Medications Medication Instructions Recorded Confirmed RX: Carvedilol [Coreg] 25 mg PO BID 06/07/17 05/12/20 RX: Levothyroxine Sodium 137 mcg PO DAILY 10/20/17 05/12/20 [Synthroid] RX: Montelukast [Singulair] 10 mg PO DAILY 06/28/18 05/12/20 RX: DULoxetine HCL [Cymbalta] 60 mg PO BID 08/15/18 05/12/20 RX: rOPINIRole HCL [Requip] 4 mg PO BID 11/18/18 05/12/20 RX: Torsemide [Demadex] 50 mg PO SUTUTHSA 12/15/18 05/12/20 RX: Torsemide [Demadex] 100 mg PO MOWEFR 12/15/18 05/12/20 Acetaminophen [Tylenol 8 Hour] 650 mg PO TID 08/14/19 05/12/20 Loratadine [Claritin] 10 mg PO DAILY 08/14/19 05/12/20 Magnesium Oxide [Mag-Ox] 400 mg PO DAILY 08/14/19 05/12/20 Multivitamins, Thera [Multivitamin 1 tab PO DAILY 08/14/19 05/12/20 (formulary)] RX: Omeprazole 20 mg PO DAILY 08/14/19 05/12/20 allopurinoL [Zyloprim] 100 mg PO DAILY 08/14/19 05/12/20 Gabapentin [Neurontin] 400 mg PO TID 01/19/20 05/12/20 RX: Ferrous Gluconate 324 mg PO BID 01/19/20 05/12/20 RX: Melatonin 10 mg PO HS 01/19/20 05/12/20 Tolnaftate [Tinactin] 1 applic TOPICAL DAILY 01/19/20 05/12/20 Diclofenac Sodium [Voltaren Gel] 4 gram TOPICAL QID PRN 04/03/20 05/12/20 Potassium Chloride ER [K-Dur 10] 10 meq PO DAILY 04/03/20 05/12/20 Cholecalciferol [Vitamin D3 (25 5,000 unit PO DAILY 04/28/20 05/12/20 Mcg = 1000 Iu)] Paliperidone Palmitate [Invega 117 mg IM Q28D 05/12/20 05/12/20 Sustenna] QUEtiapine [SEROquel] 25 mg PO TID 05/12/20 05/12/20 RX: traMADol HCL 50 mg PO Q8H PRN 05/12/20 05/12/20 Sennosides/Docusate Sodium [Senna 2 tab PO HS 05/12/20 05/12/20 Plus 8.6-50 mg Tablet] lamoTRIgine [LaMICtal] 200 mg PO DAILY 05/12/20 05/12/20 Previous Rx's Medication Instructions Recorded RX: Nystatin 100,000 Unit/gm Powd 1 applic TOPICAL BID 7 Days #15 gm 10/14/19 [Mycostatin Powder] Cephalexin [Keflex] 500 mg PO Q6HR 7 Days #28 cap 05/10/20 Allergies Allergy/AdvReac Type Severity Reaction Status Date / Time buspirone [From BuSpar] Allergy Rash/Hives Verified 05/29/20 09:35 haloperidol [From Haldol] Allergy Swelling Verified 05/29/20 09:35 hydroxyzine [From Vistaril] Allergy Rash/Hives Verified 05/29/20 09:35 iodine Allergy Swelling Verified 05/29/20 09:35 Penicillins Allergy Swelling Verified 05/29/20 09:35 prochlorperazine Allergy Rash/Hives Verified 05/29/20 09:35 Sulfa (Sulfonamide Allergy Rash/Hives Verified 05/29/20 09:35 Antibiotics) Tetanus Vaccines and Toxoid Allergy Rash/Hives Verified 05/29/20 09:35 [Tetanus Vaccines & Toxoid] trifluoperazine HCl Allergy Unknown Verified 05/29/20 09:35 [From Stelazine] Review of Systems ROS Statement: Those systems with pertinent positive or pertinent negative responses have been documented in the HPI. ROS Other: All systems not noted in ROS Statement are negative. Past Medical History Past Medical History: Asthma, Heart Failure, COPD, Diabetes Mellitus, GERD/Reflux, Hyperlipidemia, Hypertension, Musculoskeletal Disorder, Osteoarthritis (OA), Pneumonia, Pulmonary Embolus (PE), Thyroid Disorder Additional Past Medical History / Comment(s): chronic low back pain, herniated discs, RLS, leg edema, anemia, gout bilateral feet, hypothyroid, UTIs, hx cellulitis, cataracts, macular degeneration History of Any Multi-Drug Resistant Organisms: None Reported Past Surgical History: Bariatric Surgery, Heart Catheterization, Hernia Repair, Orthopedic Surgery Additional Past Surgical History / Comment(s): Total Right knee replacement, 3 abdominal hernia repairs, left hip repair d/t fracture, gastric bypass/revision, colonoscopy. Past Anesthesia/Blood Transfusion Reactions: No Reported Reaction Past Psychological History: Anxiety, Bipolar, Depression, Panic Disorder, PTSD Smoking Status: Never smoker Past Alcohol Use History: Occasional Past Drug Use History: None Reported - Past Family History Mother Family Medical History: Cancer Additional Family Medical History / Comment(s): lung cancer Father Family Medical History: Diabetes Mellitus Additional Family Medical History / Comment(s): "my dad from a blood clot that traveled from his leg to his lung and also caused a heart attack." Brother(s) Family Medical History: Diabetes Mellitus Sister(s) Additional Family Medical History / Comment(s): "her heart races too fast" General Exam Limitations: physical limitation General appearance: alert, in no apparent distress, obese (Morbidly obese) Head exam: Present: atraumatic, normocephalic, normal inspection Eye exam: Present: normal appearance, PERRL, EOMI Pupils: Present: normal accommodation ENT exam: Present: normal exam, normal oropharynx, mucous membranes moist, TM's normal bilaterally, normal external ear exam Neck exam: Present: normal inspection, full ROM. Absent: tenderness Respiratory exam: Present: normal lung sounds bilaterally. Absent: respiratory distress, wheezes, rales, rhonchi, stridor, chest wall tenderness, accessory muscle use, decreased breath sounds, prolonged expiratory Cardiovascular Exam: Present: regular rate, normal rhythm, normal heart sounds Extremities exam: Present: normal inspection, full ROM, normal capillary refill, other (+2 ulnar Amburgey pulses bilaterally.) Back exam: Present: normal inspection, full ROM Neurological exam: Present: alert, oriented X3. Absent: altered, abnormal gait Psychiatric exam: Present: normal affect, normal mood. Absent: depressed, agitated, anxious, flat affect Skin exam: Present: warm, dry, intact, normal color. Absent: rash Course Vital Signs 06/02/20 06/02/20 15:00 18:05 Temperature 98.2 F Pulse Rate 84 73 Respiratory 20 20 Rate Blood Pressure 179/90 167/79 O2 Sat by Pulse 97 100 Oximetry Medical Decision Making - Medical Decision Making Patient is a 60-year-old female with complex medical history presenting to the emergency department for possible pneumonia. On physical examination, patient is clear to auscultation bilateral. Chest x-ray reveals left lower lobe infiltrate which is to be correlated with CHF. She does have severe cardiomegaly. Pneumonia cannot be excluded. Dr. Cortés evaluated the patient. Her EKG showing sinus rhythm. BNP is 699. Initial troponin negative. CBC rev eals slight anemia. CMP is unremarkable. Patient will be admitted for further medical management. Admitting physician is Dr. Pope - Lab Data Result diagrams: 06/02/20 16:49 06/02/20 16:49 Lab Results 06/02/20 06/02/20 06/02/20 Range/Units 16:49 16:49 16:49 WBC 6.4 (3.8-10.6) k/uL RBC 3.79 L (3.80-5.40) m/uL Hgb 10.6 L (11.4-16.0) gm/dL Hct 34.3 (34.0-46.0) % MCV 90.3 (80.0-100.0) fL MCH 28.0 (25.0-35.0) pg MCHC 31.0 (31.0-37.0) g/dL RDW 13.8 (11.5-15.5) % Plt Count 284 (150-450) k/uL Neutrophils % 66 % Lymphocytes % 22 % Monocytes % 6 % Eosinophils % 3 % Basophils % 0 % Neutrophils # 4.2 (1.3-7.7) k/uL Lymphocytes # 1.4 (1.0-4.8) k/uL Monocytes # 0.4 (0-1.0) k/uL Eosinophils # 0.2 (0-0.7) k/uL Basophils # 0.0 (0-0.2) k/uL Hypochromasia Slight Sodium 137 (137-145) mmol/L Potassium 4.8 (3.5-5.1) mmol/L Chloride 104 (98-107) mmol/L Carbon Dioxide 29 (22-30) mmol/L Anion Gap 4 mmol/L BUN 16 (7-17) mg/dL Creatinine 0.84 (0.52-1.04) mg/dL Est GFR (CKD-EPI)AfAm 88 (>60 ml/min/1.73 sqM) Est GFR (CKD-EPI)NonAf 76 (>60 ml/min/1.73 sqM) Glucose 99 (74-99) mg/dL Plasma Lactic Acid Brock (0.7-2.0) mmol/L Calcium 9.3 (8.4-10.2) mg/dL Magnesium 2.0 (1.6-2.3) mg/dL Total Bilirubin 0.4 (0.2-1.3) mg/dL AST 26 (14-36) U/L ALT 14 (4-34) U/L Alkaline Phosphatase 93 (38-126) U/L NT-Pro-B Natriuret Pep 699 pg/mL Total Protein 6.4 (6.3-8.2) g/dL Albumin 3.8 (3.5-5.0) g/dL 06/02/20 Range/Units 16:50 WBC (3.8-10.6) k/uL RBC (3.80-5.40) m/uL Hgb (11.4-16.0) gm/dL Hct (34.0-46.0) % MCV (80.0-100.0) fL MCH (25.0-35.0) pg MCHC (31.0-37.0) g/dL RDW (11.5-15.5) % Plt Count (150-450) k/uL Neutrophils % % Lymphocytes % % Monocytes % % Eosinophils % % Basophils % % Neutrophils # (1.3-7.7) k/uL Lymphocytes # (1.0-4.8) k/uL Monocytes # (0-1.0) k/uL Eosinophils # (0-0.7) k/uL Basophils # (0-0.2) k/uL Hypochromasia Sodium (137-145) mmol/L Potassium (3.5-5.1) mmol/L Chloride (98-107) mmol/L Carbon Dioxide (22-30) mmol/L Anion Gap mmol/L BUN (7-17) mg/dL Creatinine (0.52-1.04) mg/dL Est GFR (CKD-EPI)AfAm (>60 ml/min/1.73 sqM) Est GFR (CKD-EPI)NonAf (>60 ml/min/1.73 sqM) Glucose (74-99) mg/dL Plasma Lactic Acid Brock 1.5 (0.7-2.0) mmol/L Calcium (8.4-10.2) mg/dL Magnesium (1.6-2.3) mg/dL Total Bilirubin (0.2-1.3) mg/dL AST (14-36) U/L ALT (4-34) U/L Alkaline Phosphatase (38-126) U/L NT-Pro-B Natriuret Pep pg/mL Total Protein (6.3-8.2) g/dL Albumin (3.5-5.0) g/dL Disposition Clinical Impression: Shortness of breath, Pneumonia, Chest pain Disposition: ADMITTED IP TO THIS [facility] Condition: Fair Additional Instructions: She will be admitted Is patient prescribed a controlled substance at d/c from ED?: No Referrals: Beau Jade MD [Primary Care Provider] - 1-2 days Time of Disposition: 18:21
[2020-06-02] MEDS ORDERED: ASPIRIN 81 MG PO STA (15:23)
--- NOTE | 2020-06-02 16:01 | XR ---
EXAMINATION TYPE: XR chest 2V DATE OF EXAM: 06/02/2020 COMPARISON: 03/19/2020 TECHNIQUE: PA and lateral views submitted. HISTORY: Chest pain FINDINGS: Heart is enlarged and there are diffuse interstitial pattern with bilateral consolidation. No pneumot horax. Arthropathy of the shoulders. Coarsened interstitium. IMPRESSION: 1. Correlate for CHF with left lower lobe infiltrate and small effusion. Underlying pneumonia or atyp ical pneumonia not excluded. 2. Severe cardiomegaly.
[2020-06-02 17:18] LABS: Basophils % (A) 0 %; Eosinophils # (A) 0.2 k/uL (0-0.7); Eosinophils % (A) 3 %; HCT 34.3 % (34.0-46.0); HGB 10.6 gm/dL (11.4-16.0); Hypochromasia Slight; Lymphocytes # (A) 1.4 k/uL (1.0-4.8); Lymphocytes % (A) 22 %; MCV 90.3 fL (80.0-100.0); Mean Platelet Volume 7.2; Monocytes # (A) 0.4 k/uL (0-1.0); Monocytes % (A) 6 %; Neutrophils # (A) 4.2 k/uL (1.3-7.7); Neutrophils % (A) 66 %; Platelet Count 284 k/uL (150-450); RBC 3.79 m/uL (3.80-5.40); RDW 13.8 % (11.5-15.5); WBC 6.4 k/uL (3.8-10.6)
[2020-06-02 17:35] LABS: Albumin 3.8 g/dL (3.5-5.0); Calcium 9.3 mg/dL (8.4-10.2); Potassium 4.8 mmol/L (3.5-5.1); Total Bilirubin 0.4 mg/dL (0.2-1.3); Total Protein 6.4 g/dL (6.3-8.2)
[2020-06-02] MEDS ORDERED: ACETAMINOPHEN TAB 500 MG TAB PO STA (18:00)
[2020-06-02] MEDS ORDERED: ONDANSETRON 4 MG/2 ML VIAL IVP PRN (18:22)
[2020-06-02] MEDS ORDERED: ACETAMINOPHEN TAB 325 MG TAB PO PRN (18:22)
[2020-06-02] MEDS ORDERED: NALOXONE 0.4 MG/ML 1 ML VIAL IV PRN (18:22)
[2020-06-02] MEDS ORDERED: HYDROmorphone 0.5 MG/0.5 ML SYRINGE IVP PRN (18:22)
[2020-06-02] MEDS: SODIUM CHLORIDE 0.9% 1,000 ML IV SCH (19:21)
[2020-06-02] MEDS ORDERED: FUROSEMIDE 10 MG/ML 4 ML VIAL IV STA (19:40)
[2020-06-02] MEDS ORDERED: AZITHROMYCIN 500 MG in SODIUM CHLORIDE 0.9% 250 ML IVPB STA (19:41)
[2020-06-02] MEDS ORDERED: IPRATROPIUM-ALBUTEROL 3 ML NEB INHALATION STA (19:42)
[2020-06-02] MEDS ORDERED: LOPERAMIDE 2 MG CAP PO PRN (23:30)
[2020-06-03] MEDS: carvediloL 12.5 MG TAB PO SCH ×3 (00:26→16:52)
[2020-06-03] MEDS: ACETAMINOPHEN TAB 325 MG TAB PO SCH ×4 (00:26→23:08)
[2020-06-03] MEDS: DULoxetine HCL 60 MG CAPSULE.DR PO SCH ×3 (00:27→23:09)
[2020-06-03] MEDS: SENNOSIDES-DOCUSATE SODIUM 1 EACH TAB PO SCH ×2 (00:27→23:07)
[2020-06-03] MEDS: QUEtiapine 25 MG TAB PO SCH ×4 (00:28→23:07)
[2020-06-03] MEDS: MELATONIN 5 MG TABLET PO SCH ×2 (00:28→23:09)
[2020-06-03] MEDS: NYSTATIN 100,000 UNIT/GM POWD 15 GM TOPICAL SCH ×3 (00:28→23:13)
[2020-06-03] MEDS: LEVOTHYROXINE 137 MCG TAB PO SCH ×2 (00:29→06:00)
[2020-06-03] MEDS: rOPINIRole HCL 4 MG TABLET PO SCH ×3 (00:29→23:25)
[2020-06-03] MEDS: GABAPENTIN 400 MG CAP PO SCH ×4 (00:30→23:07)
[2020-06-03] MEDS: CHOLECALCIFEROL 1,000 UNIT TAB PO SCH (08:51)
[2020-06-03] MEDS: FUROSEMIDE 10 MG/ML 4 ML VIAL IV SCH ×3 (08:51→23:24)
[2020-06-03] MEDS: LORATADINE 10 MG TAB PO SCH (08:52)
[2020-06-03] MEDS: allopurinoL 100 MG TAB PO SCH (08:52)
[2020-06-03] MEDS: FERROUS SULFATE 325 MG TAB PO SCH ×2 (08:52→23:09)
[2020-06-03] MEDS: lamoTRIgine 100 MG TAB PO SCH (08:52)
[2020-06-03] MEDS: LIPASE 5,000/PROTEASE 17,000/AMYLASE 24,000 PO SCH (08:56)
[2020-06-03] MEDS ORDERED: DICLOFENAC SODIUM GEL 100 GM TUBE TOPICAL PRN (09:00)
[2020-06-03] MEDS ORDERED: AZITHROMYCIN 500 MG in SODIUM CHLORIDE 0.9% 250 ML IVPB SCH (09:00)
[2020-06-03] MEDS ORDERED: TORSEMIDE 20 MG TAB PO SCH (09:00)
[2020-06-03] MEDS: MAGNESIUM OXIDE 400 MG TAB PO SCH (09:03)
[2020-06-03] MEDS: PANTOPRAZOLE 40 MG TABLET PO SCH (09:03)
[2020-06-03] MEDS: MONTELUKAST 10 MG TAB PO SCH (09:03)
[2020-06-03] MEDS: SODIUM CHLORIDE 0.9% 1,000 ML IV SCH (09:05)
[2020-06-03] MEDS: POTASSIUM CHLORIDE ER 10 MEQ TAB.ER.PRT PO SCH (09:08)
[2020-06-03] MEDS: MULTIVITAMINS, THERA 1 EACH TAB PO SCH (09:08)
[2020-06-03] MEDS: IPRATROPIUM-ALBUTEROL 3 ML NEB INHALATION PRN ×2 (09:08→15:48)
[2020-06-03] MEDS: LORazepam 2 MG/ML INJ IV PRN ×3 (10:01→23:10)
--- NOTE | 2020-06-03 10:41 | ECHOF ---
Referral Reason:Heart Failure MEASUREMENTS -------- HEIGHT: 165.1 cm WEIGHT: 172.4 kg BP: RVIDd: 4.0 cm (< 3.3) IVSd: 1.5 cm (0.6 - 1.1) LVIDd: 4.3 cm (3.9 - 5.3) LVPWd: 1.7 cm (0.6 - 1.1) IVSs: 1.7 cm LVIDs: 4.2 cm LVPWs: 1.5 cm LA Diam: 4.6 cm (2.7 - 3.8) Ao Diam: 3.3 cm (2.0 - 3.7) AV Cusp: 1.1 cm (1.5 - 2.6) MV EXCURSION: 12.777 mm (> 18.000) MV EF SLOPE: 94 mm/s (70 - 150) EPSS: 0.6 cm MV E Wade: 0.60 m/s MV DecT: 255 ms MV A Wade: 0.86 m/s MV E/A Ratio: 0.69 AV maxP.93 mmHg AV meanP.45 mmHg FINDINGS -------- Sinus rhythm. Morbid Obesity This was a techncally difficult study with suboptimal views, , Lumason utilized for enhancement of images. The left ventricular size is normal. There is moderate concentric left ventricular hypertrophy. O verall left ventricular systolic function is low-normal with, an EF between 50 - 55 %. The right ventricle is mild to moderately enlarged. The left atrium is markedly dilated. LA is severely dilated >40 ml/m2 The right atrial size is normal. 5.0mg OF Lumason UTLIZED: 2 OR MORE WALL SEGMENTS NOT VISUALIZED. There is [id number] aortic stenosis present. Peak/mean gradient across the Aortic Valve is 50.93mmHg / 28.45mmHg. Mild mitral annular calcification present. Mild mitral regurgitation is present. Unable to estimate RVSP due to inadequate TR jet spectral doppler profile. The pulmonic valve was not well visualized. The aortic root size is normal. There is a small, generalized pericardial effusion present. CONCLUSIONS -------- 1. Morbid Obesity 2. This was a techncally difficult study with suboptimal views, , Lumason utilized for enhancement of images. 3. The left ventricular size is normal. 4. There is moderate concentric left ventricular hypertrophy. 5. Overall left ventricular systolic function is low-normal with, an EF between 50 - 55 %. 6. The right ventricle is mild to moderately enlarged. 7. The left atrium is markedly dilated. 8. LA is severely dilated >40 ml/m2 9. The right atrial size is normal. 10. 5.0mg OF Lumason UTLIZED: 2 OR MORE WALL SEGMENTS NOT VISUALIZED. 11. There is [id number] aortic stenosis present. 12. Peak/mean gradient across the Aortic Valve is 50.93mmHg / 28.45mmHg. 13. Mild mitral annular calcification present. 14. Mild mitral regurgitation is present. 15. Unable to estimate RVSP due to inadequate TR jet spectral doppler profile. 16. The pulmonic valve was not well visualized. 17. The aortic root size is normal. 18. There is a small, generalized pericardial effusion present. SALVAGER HELPER: Maribell Adan RDCS
[2020-06-03 15:20] VITALS: BMI 63.2
--- NOTE | 2020-06-03 20:38 | CONS ---
EVON Man is a 60-year-old lady with morbid obesity, valvular heart disease and congestive heart failure, who is admitted to hospital with shortness of breath. Cardiology has been consulted because of cardiomegaly and abnormal echo. At the time of my evaluation, patient appears comfortable at rest. Denies any chest pain. Her shortness of breath has improved since admission. She had an echocardiogram on this admission that was technically suboptimal but showed normal LV systolic function, enlarged right ventricle, moderate to severe aortic stenosis with mild mitral regurgitation. Chest x-ray shows cardiomegaly and possible pneumonia. The patient is currently being treated with intravenous diuretics and antibiotics. PAST MEDICAL HISTORY: Significant for valvular heart disease, congestive heart failure, morbid obesity. MEDICATIONS AT HOME: I have reviewed them. Important ones are Demadex, Coreg and levothyroxine. ALLERGIES: She has multiple drug allergies, I reviewed them. FAMILY HISTORY: Negative for premature coronary artery disease. SOCIAL HISTORY: She denies smoking, ETOH abuse or drug abuse. REVIEW OF SYSTEMS: HEENT: Unremarkable. CARDIAC: As described above. RESPIRATORY: As described above. GI: Negative. : Negative. ALLERGY: Negative. SKIN: Negative. MUSCULOSKELETAL: Significant for arthritis. PSYCHOSOCIAL: Negative. CONSTITUTIONAL: Negative. PHYSICAL EXAM,: Comfortable at rest. Blood pressure is 139/69, respiratory rate is 18. Chest exam reveals diminished air entry at the left base. I do not hear any crackles or rhonchi. Heart exam reveals first and second heart sounds, grade 3 x 6 ejection systolic murmur. Abdomen is soft. Exam of extremities did not reveal any edema. Peripheral pulses are felt. The patient is morbidly obese. LABS: Show that the hemoglobin is 10.6, platelet count is 284. Potassium is 4.8. Three sets of troponins are negative. BNP is normal at 699. Potassium is 4.8. ASSESSMENT: 1. Shortness of breath probably due to a combination of pneumonia and acute exacerbation of chronic diastolic heart failure. 2. Moderate to severe aortic stenosis. PLAN: Will treat the patient with IV diuretics. Continue the beta blockers. Continue the antibiotics. We will investigate the valvular heart disease further once the respiratory illness gets better. She has seen Dr. Lenz in the past and has not be seen by him in a year, but she will have followup with him. The patient had a cardiac catheterization in 2018 that revealed normal coronary arteries. She had a HOMAR at the same time that revealed moderate mitral regurgitation without significant aortic stenosis. BENTLEY / GRIFFINN: [id number] /
--- NOTE | 2020-06-03 20:54 | P.HPIM ---
History of Present Illness H&P Date: 06/03/20 Chief Complaint: Shortness of breath History of presenting complaint: This is a pleasant 60-year-old patient being followed by visiting physicians Dr. Beau Wagoner. Chronic stable medical conditions include hyperlipidemia, hypertension, hypothyroid, chronic PE for which she's on 02, chronic lumbar pain from herniated disc, morbid obesity, GERD, restless leg syndrome, hypothyroid and chronic urinary stress incontinence. Patient does as a legal guardian- Esa. Lives by herself. Patient now presents with shortness of breath coming for a few days. Some cough. No fevers some chills. Appetite is okay. Went to see her family doctor was given antibiotics for pneumonia. Symptoms felt a bit worse and decided to come to the ER. Review of systems: GEN.: Tired EYES: None HEENT: None NECK: None RESPIRATORY: As above CARDIOVASCULAR: As above GASTROINTESTINAL: None GENITOURINARY: Urinary incontinence MUSCULOSKELETAL: Some pain in the lower back LYMPHATICS: None HEMATOLOGICAL: None PSYCHIATRY: Anxious NEUROLOGICAL: None Past medical history to include: hyperlipidemia, hypertension, hypothyroid, chronic PE for which she's on 02, chronic lumbar pain from herniated disc, morbid obesity, GERD, restless leg syndrome, hypothyroid and chronic urinary stress incontinence. Bipolar disorder Social history: Does not smoke. No alcohol. Has a court appointed legal guardian Taty. Lives alone Family history: Lung cancer Physical examination: VITAL SIGNS: 98.2, 84, 20, 1 67/79, 100% on room air GENERAL: BMI 60.2, laying in bed, tired EYES: Pupils equal. Conjunctiva normal. HEENT: External appearance of nose and ears normal, oral cavity grossly normal. NECK: JVD unable to assess; masses not palpable. HEART: Distant heart sounds; no edema. LUNGS: Respiratory rate increased; decreased breath sounds. ABDOMEN: Soft, nontender, liver spleen not palpable, no masses palpable. PSYCH: Alert and oriented x3; mood and affect anxious. NEUROLOGICAL: Cranial nerves grossly intact; no facial asymmetry, power and sensation grossly intact. LYMPHATICS: No lymph nodes palpable in the axilla and neck INVESTIGATIONS, reviewed in the clinical context: White count 6.4 hemoglobin 10.6 platelets 24 potassium 4.8 creatinine 0.84 ProBNP 699 Troponin I less than 0.0123 EKG tracing personally reviewed by wi- Chest x-ray film personally reviewed by me-infiltrate, questionable venous prominence 2-D echo-moderate concentric LVH, EF 50-55%, moderate to severe aortic stenosis Assessment: -Patient presents with shortness of breath cough chills was being treated as an outpatient for pneumonia. X-rays showing infiltrates. Suspect gram-negative organism. -Less likely but possible acute exacerbation of chronic diastolic heart failure with EF of 50-55% -Moderate to severe aortic stenosis -Hyperlipidemia -Essential hypertension -Hypertensive heart disease -Hypothyroid -Chronic pulmonary embolism for which patient is on Xarelto -Chronic lumbar pain from donated disc -Morbid obesity BMI 67.9 -GERD -Restless leg syndrome -Chronic urinary stress incontinence -Bipolar disorder with depression -Patient has a court appointed guardian-Taty Plan: Patient started IV Zithromax and IV ceftriaxone. IV Lasix added by cardiology. Patient did have a cardiac catheterization in 2018 that showed normal coronaries. Repeat labs. Cardiology consulted. Past Medical History Past Medical History: Asthma, Heart Failure, COPD, Diabetes Mellitus, GERD/Reflux, Hyperlipidemia, Hypertension, Musculoskeletal Disorder, Osteoarthritis (OA), Pneumonia, Pulmonary Embolus (PE), Thyroid Disorder Additional Past Medical History / Comment(s): chronic low back pain, herniated discs, RLS, leg edema, anemia, gout bilateral feet, hypothyroid, UTIs, hx cellulitis, cataracts, macular degeneration History of Any Multi-Drug Resistant Organisms: None Reported Past Surgical History: Bariatric Surgery, Heart Catheterization, Hernia Repair, Orthopedic Surgery Additional Past Surgical History / Comment(s): Total Right knee replacement, 3 abdominal hernia repairs, left hip repair d/t fracture, gastric bypass/revision, colonoscopy. Past Anesthesia/Blood Transfusion Reactions: No Reported Reaction Past Psychological History: Anxiety, Bipolar, Depression, Panic Disorder, PTSD Smoking Status: Never smoker Past Alcohol Use History: Occasional Past Drug Use History: None Reported - Past Family History Mother Family Medical History: Cancer Additional Family Medical History / Comment(s): lung cancer Father Family Medical History: Diabetes Mellitus Additional Family Medical History / Comment(s): "my dad from a blood clot that traveled from his leg to his lung and also caused a heart attack." Brother(s) Family Medical History: Diabetes Mellitus Sister(s) Additional Family Medical History / Comment(s): "her heart races too fast" Medications and Allergies Home Medications Medication Instructions Recorded Confirmed Type Carvedilol [Coreg] 25 mg PO BID 06/07/17 06/02/20 History Levothyroxine Sodium [Synthroid] 137 mcg PO DAILY 10/20/17 06/02/20 History Montelukast [Singulair] 10 mg PO DAILY 06/28/18 06/02/20 History DULoxetine HCL [Cymbalta] 60 mg PO BID 08/15/18 06/02/20 History rOPINIRole HCL [Requip] 4 mg PO BID 11/18/18 06/02/20 History Torsemide [Demadex] 50 mg PO SUTUTHSA 12/15/18 06/02/20 History Torsemide [Demadex] 100 mg PO MOWEFR 12/15/18 06/02/20 History Acetaminophen [Tylenol 8 Hour] 650 mg PO TID 08/14/19 06/02/20 History Loratadine [Claritin] 10 mg PO DAILY 08/14/19 06/02/20 History Magnesium Oxide [Mag-Ox] 400 mg PO DAILY 08/14/19 06/02/20 History Multivitamins, Thera [Multivitamin 1 tab PO DAILY 08/14/19 06/02/20 History (formulary)] Omeprazole 20 mg PO DAILY 08/14/19 06/02/20 History allopurinoL [Zyloprim] 100 mg PO DAILY 08/14/19 06/02/20 History Nystatin 100,000 Unit/gm Powd 1 applic TOPICAL BID 7 Days #15 gm 10/14/19 06/02/20 Rx [Mycostatin Powder] Ferrous Gluconate 324 mg PO BID 01/19/20 06/02/20 History Gabapentin [Neurontin] 400 mg PO TID 01/19/20 06/02/20 History Melatonin 10 mg PO HS 01/19/20 06/02/20 History Diclofenac Sodium [Voltaren Gel] 4 gram TOPICAL QID PRN 04/03/20 06/02/20 History Potassium Chloride ER [K-Dur 10] 10 meq PO DAILY 04/03/20 06/02/20 History Cholecalciferol [Vitamin D3 (25 5,000 unit PO DAILY 04/28/20 06/02/20 History Mcg = 1000 Iu)] Paliperidone Palmitate [Invega 117 mg IM Q28D 05/12/20 06/02/20 History Sustenna] QUEtiapine [SEROquel] 25 mg PO TID 05/12/20 06/02/20 History Sennosides/Docusate Sodium [Senna 2 tab PO HS 05/12/20 06/02/20 History Plus 8.6-50 mg Tablet] lamoTRIgine [LaMICtal] 200 mg PO DAILY 05/12/20 06/02/20 History traMADol HCL 50 mg PO Q8H PRN 05/12/20 06/02/20 History L.acidoph,Paracasei, B.lactis 1 cap PO DAILY 06/02/20 06/02/20 History [Probiotic] Loperamide [Imodium] 2 mg PO DAILY PRN 06/02/20 06/02/20 History Nitrofurantoin Monohyd/M-Cryst 100 mg PO Q12H 06/02/20 06/02/20 History [Macrobid] Allergies Allergy/AdvReac Type Severity Reaction Status Date / Time buspirone [From BuSpar] Allergy Rash/Hives Verified 06/02/20 21:19 haloperidol [From Haldol] Allergy Swelling Verified 06/02/20 21:19 hydroxyzine [From Vistaril] Allergy Rash/Hives Verified 06/02/20 21:19 iodine Allergy Swelling Verified 06/02/20 21:19 Penicillins Allergy Swelling Verified 06/02/20 21:19 prochlorperazine Allergy Rash/Hives Verified 06/02/20 21:19 Sulfa (Sulfonamide Allergy Rash/Hives Verified 06/02/20 21:19 Antibiotics) Tetanus Vaccines and Toxoid Allergy Rash/Hives Verified 06/02/20 21:19 [Tetanus Vaccines & Toxoid] trifluoperazine HCl Allergy Unknown Verified 06/02/20 21:19 [From Stelazine] Physical Exam Vitals: Vital Signs Temp Pulse Pulse Resp BP BP Pulse Ox 06/03/20 09:17 80 06/03/20 09:08 88 06/03/20 07:00 98.1 F 75 20 139/69 93 L 06/03/20 06:00 98.4 F 87 17 154/72 94 L 06/02/20 23:23 98.4 F 88 20 160/78 98 06/02/20 21:01 80 18 06/02/20 20:43 84 18 06/02/20 19:25 75 18 167/87 99 06/02/20 18:05 73 20 167/79 100 06/02/20 15:00 98.2 F 84 20 179/90 97 Intake and Output 06/02/20 06/03/20 06/03/20 22:59 06:59 14:59 Other: Weight 172.365 kg Results CBC & Chem 7: 06/02/20 16:49 06/02/20 16:49 Labs: Abnormal Lab Results - Last 24 Hours (Table) 06/02/20 Range/Units 16:49 RBC 3.79 L (3.80-5.40) m/uL Hgb 10.6 L (11.4-16.0) gm/dL
[2020-06-03] MEDS: ENOXAPARIN 40 MG/0.4 ML SYRINGE SQ SCH (23:07)
[2020-06-04] MEDS: LEVOTHYROXINE 137 MCG TAB PO SCH (06:05)
[2020-06-04] MEDS: ACETAMINOPHEN TAB 325 MG TAB PO SCH ×3 (09:04→21:36)
[2020-06-04] MEDS: FUROSEMIDE 10 MG/ML 4 ML VIAL IV SCH ×2 (09:04→21:37)
[2020-06-04] MEDS: TORSEMIDE 20 MG TAB PO SCH (09:05)
[2020-06-04] MEDS: LORATADINE 10 MG TAB PO SCH (09:05)
[2020-06-04] MEDS: lamoTRIgine 100 MG TAB PO SCH (09:05)
[2020-06-04] MEDS: LIPASE 5,000/PROTEASE 17,000/AMYLASE 24,000 PO SCH (09:05)
[2020-06-04] MEDS: rOPINIRole HCL 4 MG TABLET PO SCH ×2 (09:05→19:29)
[2020-06-04] MEDS: GABAPENTIN 400 MG CAP PO SCH ×3 (09:06→21:36)
[2020-06-04] MEDS: carvediloL 12.5 MG TAB PO SCH ×2 (09:06→17:06)
[2020-06-04] MEDS: PANTOPRAZOLE 40 MG TABLET PO SCH (09:06)
[2020-06-04] MEDS: FERROUS SULFATE 325 MG TAB PO SCH ×2 (09:06→21:36)
[2020-06-04] MEDS: DULoxetine HCL 60 MG CAPSULE.DR PO SCH ×2 (09:06→21:36)
[2020-06-04] MEDS: QUEtiapine 25 MG TAB PO SCH ×3 (09:06→21:36)
[2020-06-04] MEDS: allopurinoL 100 MG TAB PO SCH (09:06)
[2020-06-04] MEDS: CHOLECALCIFEROL 1,000 UNIT TAB PO SCH (09:06)
[2020-06-04 09:07] LABS: African American GFR (CKD) 109.9 (60.0-200.0); Anion Gap 8.7 mmol/L (4.00-12.00); Calcium 9.4 mg/dL (8.7-10.3); Carbon Dioxide 29.3 mmol/L (21.6-31.8); Non-African American GFR(CKD) 94.8 (60.0-200.0); Potassium 4.4 mmol/L (3.5-5.5)
[2020-06-04] MEDS: MAGNESIUM OXIDE 400 MG TAB PO SCH (09:07)
[2020-06-04] MEDS: NYSTATIN 100,000 UNIT/GM POWD 15 GM TOPICAL SCH ×2 (09:07→21:37)
[2020-06-04] MEDS: MULTIVITAMINS, THERA 1 EACH TAB PO SCH (09:07)
[2020-06-04] MEDS: MONTELUKAST 10 MG TAB PO SCH (09:07)
[2020-06-04] MEDS: POTASSIUM CHLORIDE ER 10 MEQ TAB.ER.PRT PO SCH (09:07)
[2020-06-04] MEDS: LORazepam 2 MG/ML INJ IV PRN ×2 (09:20→17:07)
--- NOTE | 2020-06-04 13:11 | P.PN ---
Subjective Progress Note Date: 06/04/20 This is a pleasant 60-year-old female patient with a history of morbid obesity, congestive heart failure, valvular heart disease, follows with Dr. Feldman in the office. She presented to the hospital with a one-week history of shortness of breath. She's been diagnosed with pneumonia. We were consulted after an echocardiogram showed evidence of moderate to severe aortic stenosis with mild to moderately enlarged RV, severely dilated LA, low normal LV systolic function with ejection fraction 50-55% and mild MR. She also has some lower extremity edema. She's been initiated on IV Lasix. Overall she's feeling a bit better this morning. Her edema has improved some but remains. He did note some weepi ng of the left lower extremity. Renal function remained stable. Objective - Vital Signs Vital signs: Vital Signs Temp 97.9 F 06/04/20 07:46 Pulse 109 H 06/04/20 08:00 Resp 16 06/04/20 08:00 BP 143/72 06/04/20 07:46 Pulse Ox 93 L 06/04/20 07:46 Intake & Output 06/03/20 06/04/20 06/04/20 18:59 06:59 18:59 Intake Total 500 Balance 500 Weight 172.365 kg Intake: Intake, IV Titration 300 Amount Sodium Chloride 0.9% 1, 300 000 ml @ 75 mls/hr IV . [id number] [facility] Rx#:[id number] Oral 200 Other: Voiding Method Bedside Commode Bedside Commode # Voids 3 5 - Exam PHYSICAL EXAMINATION: HEENT: Head is atraumatic, normocephalic. Pupils equal, round. Neck is supple. There is no elevated jugular venous pressure. HEART EXAMINATION: Heart sounds regular, S1 and S2 normal. With a grade 3/6 systolic ejection murmur at the base with radiation to the neck. CHEST EXAMINATION: Lungs reveal diminished air entry bilaterally. No chest wall tenderness is noted on palpation or with deep breathing. ABDOMEN: Soft, obese, nontender. Bowel sounds are heard. No organomegaly noted. EXTREMITIES: 1+ peripheral pulses with evidence of mild to moderate peripheral edema with weeping noted to the left lower extremity and mild erythema bilaterally and no calf tenderness noted. NEUROLOGIC patient is awake, alert and oriented x3. . - Labs CBC & Chem 7: 06/02/20 16:49 06/04/20 06:34 Labs: Microbiology - Last 24 Hours (Table) 06/02/20 20:15 Blood Culture - Preliminary Blood No Growth after 24 hours Assessment and Plan Assessment: #1 shortness of breath related to combination of pneumonia and mild exacerbation of chronic diastolic heart failure #2 moderate to severe aortic stenosis Plan: From glaze sprayer perspective medications were reviewed and we'll continue the same. Continue to follow renal function, electrolytes, daily weights as well as intake and outputs. We'll continue to follow patient and provide Further recommendations accordingly. VEHICLE SAFETY INSPECTOR note has been reviewed, I agree with a documented findings and plan of care. Patient was seen and examined.
[2020-06-04] MEDS: traMADol 50 MG TAB PO PRN ×2 (15:15→23:56)
[2020-06-04] MEDS: AZITHROMYCIN 500 MG TAB PO SCH (15:17)
[2020-06-04] MEDS: IPRATROPIUM-ALBUTEROL 3 ML NEB INHALATION PRN (16:51)
--- NOTE | 2020-06-04 16:54 | P.PN ---
Progress Note - Text Progress Note Date: 06/04/20 Chief Complaint: Shortness of breath History of presenting complaint: This is a pleasant 60-year-old patient being followed by visiting physicians Dr. Beau Wagoner. Chronic stable medical conditions include hyperlipidemia, hypertension, hypothyroid, chronic PE for which she's on 02, chronic lumbar pain from herniated disc, morbid obesity, GERD, restless leg syndrome, hypothyroid and chronic urinary stress incontinence. Patient does as a legal guardian- Namenda. Lives by herself. Patient now presents with shortness of breath coming for a few days. Some cough. No fevers some chills. Appetite is okay. Went to see her family doctor was given antibiotics for pneumonia. Symptoms felt a bit worse and decided to come to the ER. Admitted with pneumonia, possible CHF exacerbation diastolic dysfunction. Started on IV ceftriaxone, Zithromax and IV Lasix. Today-tired, cough productive sputum. Appetite improving Review of systems: Was done for constitutional, cardiovascular, GI, pulmonary. relevant finding as above Active Medications Acetaminophen (Acetaminophen Tab 325 Mg Tab) 650 mg PO Q6HR PRN PRN Reason: Mild Pain or Fever > 100.5 Acetaminophen (Acetaminophen Tab 325 Mg Tab) 650 mg PO TID [facility] Last Admin: 06/04/20 15:15 Dose: 650 mg Documented by: Albuterol/Ipratropium (Ipratropium-Albuterol 3 Ml Neb) 3 ml INHALATION RT-QID PRN PRN Reason: Shortness Of Breath Or Wheezing Last Admin: 06/04/20 16:51 Dose: 3 ml Documented by: Allopurinol (Allopurinol 100 Mg Tab) 100 mg PO DAILY [facility] Last Admin: 06/04/20 09:06 Dose: 100 mg Documented by: Lipase/Protease/Amylase (Lipase 5,000/Protease 17,000/Amylase 24,000) 2 each PO DAILY [facility] Last Admin: 06/04/20 09:05 Dose: 2 each Documented by: Azithromycin (Azithromycin 500 Mg Tab) 500 mg PO DAILY [facility] Last Admin: 06/04/20 15:17 Dose: 500 mg Documented by: Carvedilol (Carvedilol 12.5 Mg Tab) 25 mg PO BID-W/MEALS [facility] Last Admin: 06/04/20 09:06 Dose: 25 mg Documented by: Cholecalciferol (Cholecalciferol 1,000 Unit Tab) 5,000 unit PO DAILY [facility] Last Admin: 06/04/20 09:06 Dose: 5,000 unit Documented by: Diclofenac Sodium (Diclofenac Sodium Gel 100 Gm Tube) 4 gm TOPICAL QID PRN PRN Reason: Pain Duloxetine HCl (Duloxetine Hcl 60 Mg Capsule.Dr) 60 mg PO BID [facility] Last Admin: 06/04/20 09:06 Dose: 60 mg Documented by: Enoxaparin Sodium (Enoxaparin 40 Mg/0.4 Ml Syringe) 40 mg SQ DAILY@2100 [facility] Last Admin: 06/03/20 23:07 Dose: 40 mg Documented by: Ferrous Sulfate (Ferrous Sulfate 325 Mg Tab) 325 mg PO BID [facility] Last Admin: 06/04/20 09:06 Dose: 325 mg Documented by: Furosemide (Furosemide 10 Mg/Ml 4 Ml Vial) 40 mg IV Q12HR [facility] Last Admin: 06/04/20 09:04 Dose: 40 mg Documented by: Gabapentin (Gabapentin 400 Mg Cap) 400 mg PO TID [facility] Last Admin: 06/04/20 15:15 Dose: 400 mg Documented by: Ceftriaxone Sodium 2 gm/ (Sodium Chloride) 50 mls @ 100 mls/hr IVPB Q24H [facility] Last Admin: 06/03/20 17:40 Dose: 100 mls/hr Documented by: Lamotrigine (Lamotrigine 100 Mg Tab) 200 mg PO DAILY [facility] Last Admin: 06/04/20 09:05 Dose: 200 mg Documented by: Levothyroxine Sodium (Levothyroxine 137 Mcg Tab) 137 mcg PO DAILY@0630 [facility] Last Admin: 06/04/20 06:05 Dose: Not Given Documented by: Loperamide HCl (Loperamide 2 Mg Cap) 2 mg PO DAILY PRN PRN Reason: Diarrhea Loratadine (Loratadine 10 Mg Tab) 10 mg PO DAILY [facility] Last Admin: 06/04/20 09:05 Dose: 10 mg Documented by: Lorazepam (Lorazepam 2 Mg/Ml Inj) 0.5 mg IV Q6HR PRN PRN Reason: Anxiety Last Admin: 06/04/20 09:20 Dose: 0.5 mg Documented by: Magnesium Oxide (Magnesium Oxide 400 Mg Tab) 400 mg PO DAILY [facility] Last Admin: 06/04/20 09:07 Dose: 400 mg Documented by: Melatonin (Melatonin 5 Mg Tablet) 10 mg PO HS [facility] Last Admin: 06/03/20 23:09 Dose: 10 mg Documented by: Montelukast Sodium (Montelukast 10 Mg Tab) 10 mg PO DAILY [facility] Last Admin: 06/04/20 09:07 Dose: 10 mg Documented by: Multivitamins (Multivitamins, Thera 1 Each Tab) 1 each PO DAILY [facility] Last Admin: 06/04/20 09:07 Dose: 1 each Documented by: Naloxone HCl (Naloxone 0.4 Mg/Ml 1 Ml Vial) 0.2 mg IV Q2M PRN PRN Reason: Opioid Reversal Nystatin (Nystatin 100,000 Unit/Gm Powd 15 Gm) 1 applic TOPICAL BID [facility] Last Admin: 06/04/20 09:07 Dose: 1 applic Documented by: Ondansetron HCl (Ondansetron 4 Mg/2 Ml Vial) 4 mg IVP Q8HR PRN PRN Reason: Nausea And Vomiting Pantoprazole Sodium (Pantoprazole 40 Mg Tablet) 40 mg PO DAILY [facility] Last Admin: 06/04/20 09:06 Dose: 40 mg Documented by: Potassium Chloride (Potassium Chloride Er 10 Meq Tab.Er.Prt) 10 meq PO DAILY [facility] Last Admin: 06/04/20 09:07 Dose: 10 meq Documented by: Quetiapine Fumarate (Quetiapine 25 Mg Tab) 25 mg PO TID [facility] Last Admin: 06/04/20 15:15 Dose: 25 mg Documented by: Ropinirole HCl (Ropinirole Hcl 4 Mg Tablet) 4 mg PO BID [facility] Last Admin: 06/04/20 09:05 Dose: 4 mg Documented by: Senna/Docusate Sodium (Sennosides-Docusate Sodium 1 Each Tab) 2 each PO HS [facility] Last Admin: 06/03/20 23:07 Dose: 2 each Documented by: Torsemide (Torsemide 20 Mg Tab) 50 mg PO SuTuThSa@0900 [facility] Last Admin: 06/04/20 09:05 Dose: 50 mg Documented by: Torsemide (Torsemide 20 Mg Tab) 100 mg PO MoWeFr@0900 [facility] Last Admin: 06/03/20 09:08 Dose: Not Given Documented by: Tramadol HCl (Tramadol 50 Mg Tab) 50 mg PO Q8H PRN PRN Reason: Pain Last Admin: 06/04/20 15:15 Dose: 50 mg Documented by: Physical examination: VITAL SIGNS: 97.9, 94, 16, 119/81, 93% room air GENERAL: Propped up in bed, tired EYES: Pupils equal. Conjunctiva normal. NECK: JVD unable to assess; masses not palpable. HEART: Distant heart sounds; no edema. LUNGS: Respiratory rate increased; decreased breath sounds. ABDOMEN: Soft, nontender, liver spleen not palpable, no masses palpable. PSYCH: Alert and oriented x3; mood and affect anxious. INVESTIGATIONS, reviewed in the clinical context: Potassium 4.4 creatinine 0.7 Previous testing White count 6.4 hemoglobin 10.6 platelets 24 potassium 4.8 creatinine 0.84 ProBNP 699 Troponin I less than 0.0123 EKG tracing personally reviewed by me- Chest x-ray film personally reviewed by me-infiltrate, questionable venous prominence 2-D echo-moderate concentric LVH, EF 50-55%, moderate to severe aortic stenosis Assessment: -Pneumonia, Suspect gram-negative organism. POA -Less likely but possible acute exacerbation of chronic diastolic heart failure with EF of 50-55% -Moderate to severe aortic stenosis -Hyperlipidemia -Essential hypertension -Hypertensive heart disease -Hypothyroid -Chronic pulmonary embolism for which patient is on Xarelto -Chronic lumbar pain from donated disc -Morbid obesity BMI 67.9 -GERD -Restless leg syndrome -Chronic urinary stress incontinence -Bipolar disorder with depression -Patient has a court appointed guardian-Taty Plan: Continue IV Zithromax and IV ceftriaxone. IV Lasix. Follow labs. Discussed with patient.
[2020-06-04] MEDS ORDERED: OLANZapine 10 MG VIAL IM PRN (21:00)
[2020-06-04] MEDS: SENNOSIDES-DOCUSATE SODIUM 1 EACH TAB PO SCH (21:36)
[2020-06-04] MEDS: MELATONIN 5 MG TABLET PO SCH (21:36)
[2020-06-04] MEDS: ENOXAPARIN 40 MG/0.4 ML SYRINGE SQ SCH (21:37)
[2020-06-05] MEDS: LEVOTHYROXINE 137 MCG TAB PO SCH (05:48)
[2020-06-05 06:38] LABS: HGB 11.3 gm/dL (11.4-16.0); Hypochromasia Slight; MCH 27.2 pg (25.0-35.0); MCHC 30.5 g/dL (31.0-37.0); MCV 89.1 fL (80.0-100.0); Mean Platelet Volume 7.5; Platelet Count 270 k/uL (150-450); RBC 4.15 m/uL (3.80-5.40); RDW 13.8 % (11.5-15.5); WBC 6.2 k/uL (3.8-10.6)
--- NOTE | 2020-06-05 08:10 | XR ---
EXAMINATION TYPE: XR chest 2V DATE OF EXAM: 06/05/2020 COMPARISON: 06/02/2020 INDICATION: Pneumonia, CHF TECHNIQUE: Frontal and lateral views of the chest are obtained. FINDINGS: The heart size is normal. The pulmonary vasculature is upper limits of normal. Mild diffuse increased lung markings are present on the right. Findings have improved from comparison . IMPRESSION: 1. Heart size is returned normal. 2. Slight prominence of pulmonary vascular markings. 3. Some residual volume overload may remain on the right.
[2020-06-05] MEDS: FUROSEMIDE 10 MG/ML 4 ML VIAL IV SCH (08:28)
[2020-06-05] MEDS: carvediloL 12.5 MG TAB PO SCH ×2 (08:29→15:17)
[2020-06-05] MEDS: allopurinoL 100 MG TAB PO SCH (08:29)
[2020-06-05] MEDS: GABAPENTIN 400 MG CAP PO SCH ×2 (08:29→15:17)
[2020-06-05] MEDS: lamoTRIgine 100 MG TAB PO SCH (08:29)
[2020-06-05] MEDS: PANTOPRAZOLE 40 MG TABLET PO SCH (08:29)
[2020-06-05] MEDS: FERROUS SULFATE 325 MG TAB PO SCH (08:29)
[2020-06-05] MEDS: DULoxetine HCL 60 MG CAPSULE.DR PO SCH (08:29)
[2020-06-05] MEDS: AZITHROMYCIN 500 MG TAB PO SCH (08:29)
[2020-06-05] MEDS: TORSEMIDE 20 MG TAB PO SCH (08:29)
[2020-06-05] MEDS: POTASSIUM CHLORIDE ER 10 MEQ TAB.ER.PRT PO SCH (08:29)
[2020-06-05] MEDS: LIPASE 5,000/PROTEASE 17,000/AMYLASE 24,000 PO SCH (08:29)
[2020-06-05] MEDS: MAGNESIUM OXIDE 400 MG TAB PO SCH (08:29)
[2020-06-05] MEDS: MONTELUKAST 10 MG TAB PO SCH (08:30)
[2020-06-05] MEDS: QUEtiapine 25 MG TAB PO SCH ×2 (08:30→15:17)
[2020-06-05] MEDS: rOPINIRole HCL 4 MG TABLET PO SCH (08:30)
[2020-06-05] MEDS: CHOLECALCIFEROL 1,000 UNIT TAB PO SCH (08:30)
[2020-06-05] MEDS: LORATADINE 10 MG TAB PO SCH (08:30)
[2020-06-05] MEDS: MULTIVITAMINS, THERA 1 EACH TAB PO SCH (08:30)
[2020-06-05] MEDS: NYSTATIN 100,000 UNIT/GM POWD 15 GM TOPICAL SCH (08:30)
[2020-06-05] MEDS: ACETAMINOPHEN TAB 325 MG TAB PO SCH ×2 (08:31→15:17)
[2020-06-05] MEDS: LORazepam 2 MG/ML INJ IV PRN ×2 (08:45→15:13)
--- NOTE | 2020-06-05 11:15 | P.PN ---
Subjective Progress Note Date: 06/05/20 This is a pleasant 60-year-old female patient with a history of morbid obesity, congestive heart failure, valvular heart disease, follows with Dr. Feldman in the office. She presented to the hospital with a one-week history of shortness of breath. She's been diagnosed with pneumonia. We were consulted after an echocardiogram showed evidence of moderate to severe aortic stenosis with mild to moderately enlarged RV, severely dilated LA, low normal LV systolic function with ejection fraction 50-55% and mild MR. She also has some lower extremity edema. She's been initiated on IV Lasix. Overall she's feeling a bit better this morning. Her edema has improved some but remains. He did note some weepi ng of the left lower extremity. Renal function remained stable. 06/05/2020 Patient was seen and examined this morning with significantly impaired. She is overall feeling quite a bit better. She feels her breathing has improved. Her edema has improved as well. Vital signs are stable. Awaiting laboratory results from this morning. The patient admits to not taking her torsemide at home. But verbalizes that she will be more compliant with this in the future. She is currently remaining on Lasix 40 mg IV every 12 hours. Objective - Vital Signs Vital signs: Vital Signs Temp 98.1 F 06/05/20 07:00 Pulse 84 06/05/20 07:05 Resp 20 06/05/20 07:05 BP 95/55 06/05/20 07:00 Pulse Ox 95 06/05/20 07:00 Intake & Output 06/04/20 06/05/20 06/05/20 18:59 06:59 18:59 Other: Voiding Method Bedside Commode Bedside Commode Bedside Commode # Voids 2 3 - Exam PHYSICAL EXAMINATION: HEENT: Head is atraumatic, normocephalic. Pupils equal, round. Neck is supple. There is no elevated jugular venous pressure. HEART EXAMINATION: Heart sounds regular, S1 and S2 normal. With a grade 3/6 systolic ejection murmur at the base with radiation to the neck. CHEST EXAMINATION: Lungs reveal diminished air entry bilaterally. No chest wall tenderness is noted on palpation or with deep breathing. ABDOMEN: Soft, obese, nontender. Bowel sounds are heard. No organomegaly noted. EXTREMITIES: 1+ peripheral pulses with evidence of mild peripheral edema and mild erythema bilaterally and no calf tenderness noted. NEUROLOGIC patient is awake, alert and oriented x3. . - Labs CBC & Chem 7: 06/05/20 05:55 06/04/20 06:34 Labs: Abnormal Lab Results - Last 24 Hours (Table) 06/05/20 Range/Units 05:55 Hgb 11.3 L (11.4-16.0) gm/dL MCHC 30.5 L (31.0-37.0) g/dL Microbiology - Last 24 Hours (Table) 06/02/20 20:15 Blood Culture - Preliminary Blood No Growth after 48 hours Assessment and Plan Assessment: #1 shortness of breath related to combination of pneumonia and mild exacerbation of chronic diastolic heart failure #2 moderate to severe aortic stenosis Plan: From circus hand perspective medications were reviewed and we will discontinue IV Lasix. We will resume home dose of torsemide. We anticipate the patient will be able to be discharged home soon. INVENTORY COORDINATOR note has been reviewed, I agree with a documented findings and plan of care. Patient was seen and examined.
[2020-06-05 11:36] LABS: African American GFR (CKD) 81.1 (60.0-200.0); Anion Gap 13.7 mmol/L (4.00-12.00); BUN/Creat Ratio 28.89 Ratio (12.00-20.00); Calcium 9.2 mg/dL (8.7-10.3); Carbon Dioxide 26.3 mmol/L (21.6-31.8); Potassium 4.2 mmol/L (3.5-5.5)
[2020-06-05 14:50] VITALS: BP 136/73; PULSE 93; RESP 16; TEMP 97.5
--- NOTE | 2020-06-05 21:20 | P.DS ---
Providers Date of admission: 06/04/20 08:30 Expected date of discharge: 06/05/20 Attending physician: Watson Pope Consults: 06/03/20 13:23 Consult Physician Routine Consulting Provider: Dragan Marshall Consult Reason/Comments: aortic stenosis Do you want consulting provider notified?: Yes 06/03/20 17:44 Consult Physician Routine Consulting Provider: Dm Lockett Consult Reason/Comments: Suicidal Do you want consulting provider notified?: Yes Primary care physician: Beau Jade MD Hospital Course: Chief Complaint: Shortness of breath History of presenting complaint: This is a pleasant 60-year-old patient being followed by visiting physicians Dr. Beau Wagoner. Chronic stable medical conditions include hyperlipidemia, hypertension, hypothyroid, chronic PE for which she's on , chronic lumbar pain from herniated disc, morbid obesity, GERD, restless leg syndrome, hypothyroid and chronic urinary stress incontinence. Patient does as a legal guardian- Namenda. Lives by herself. Patient now presents with shortness of breath coming for a few days. Some cough. No fevers some chills. Appetite is okay. Went to see her family doctor was given antibiotics for pneumonia. Symptoms felt a bit worse and decided to come to the ER. Admitted with pneumonia, possible CHF exacerbation diastolic dysfunction. Started on IV ceftriaxone, Zithromax and IV Lasix. Responded well. Patient had called an upset about a Lasix dose and said she wanted to apparently kill herself. So she had gotten a sitter. She did state afterwards that she didn't intubated. Was not suicidal per se. Today-comfortable. Eating well. On her smartphone. Has a sitter. I spoke to network operations center technician psychiatrist. Okay to discharge the patient. [facility] crisis team will follow. Has been arranged by the psychiatry nurse. Discussed with nurse Akhil on the floor. At the patient. Discussion and discharge planning more than 35 minutes Consultation: Psychiatry -Dr. Marshall from cardiology Physical examination: VITAL SIGNS: He 7.5, 93, 16, 136 with 73, 94% room air GENERAL: Propped up in bed, comfortable EYES: Pupils equal. Conjunctiva normal. NECK: JVD unable to assess; masses not palpable. HEART: Distant heart sounds; no edema. LUNGS: Respiratory rate increased; decreased breath sounds. ABDOMEN: Soft, nontender, liver spleen not palpable, no masses palpable. PSYCH: Alert and oriented x3; mood and affect normal, not suicidal INVESTIGATIONS, reviewed in the clinical context: Potassium 4.2 creatinine 0.9 white count 6.2 Previous testing White count 6.4 hemoglobin 10.6 platelets 24 potassium 4.8 creatinine 0.84 ProBNP 699 Troponin I less than 0.0123 EKG tracing personally reviewed by me- Chest x-ray film personally reviewed by me-infiltrate, questionable venous prominence 2-D echo-moderate concentric LVH, EF 50-55%, moderate to severe aortic stenosis Assessment: -Pneumonia, Suspect gram-negative organism. POA -Less likely but possible acute exacerbation of chronic diastolic heart failure with EF of 50-55%-improved -Moderate to severe aortic stenosis -Hyperlipidemia -Essential hypertension -Hypertensive heart disease -Hypothyroid -Chronic pulmonary embolism for which patient is on Xarelto -Chronic lumbar pain from donated disc -Morbid obesity BMI 67.9 -GERD -Restless leg syndrome -Chronic urinary stress incontinence -Bipolar disorder with depression -Patient has a court appointed guardian-Taty Disposition: [facility]. Nurses informing the legal guardian. Patient Condition at Discharge: Stable Plan - Discharge Summary Discharge Rx Participant: No New Discharge Prescriptions: New Cefuroxime Axetil [Ceftin] 500 mg PO BID 1 Days #6 tab Continue Carvedilol [Coreg] 25 mg PO BID Levothyroxine Sodium [Synthroid] 137 mcg PO DAILY Montelukast [Singulair] 10 mg PO DAILY DULoxetine HCL [Cymbalta] 60 mg PO BID rOPINIRole HCL [Requip] 4 mg PO BID Torsemide [Demadex] 100 mg PO MOWEFR Torsemide [Demadex] 50 mg PO SUTUTHSA Omeprazole 20 mg PO DAILY Loratadine [Claritin] 10 mg PO DAILY Multivitamins, Thera [Multivitamin (formulary)] 1 tab PO DAILY Magnesium Oxide [Mag-Ox] 400 mg PO DAILY allopurinoL [Zyloprim] 100 mg PO DAILY Acetaminophen [Tylenol 8 Hour] 650 mg PO TID Nystatin 100,000 Unit/gm Powd [Mycostatin Powder] 1 applic TOPICAL BID 7 Days #15 gm Melatonin 10 mg PO HS Gabapentin [Neurontin] 400 mg PO TID Ferrous Gluconate 324 mg PO BID Potassium Chloride ER [K-Dur 10] 10 meq PO DAILY Diclofenac Sodium [Voltaren Gel] 4 gram TOPICAL QID PRN PRN Reason: Pain Cholecalciferol [Vitamin D3 (25 Mcg = 1000 Iu)] 5,000 unit PO DAILY lamoTRIgine [LaMICtal] 200 mg PO DAILY Paliperidone Palmitate [Invega Sustenna] 117 mg IM Q28D QUEtiapine [SEROquel] 25 mg PO TID Sennosides/Docusate Sodium [Senna Plus 8.6-50 mg Tablet] 2 tab PO HS traMADol HCL 50 mg PO Q8H PRN PRN Reason: Pain Loperamide [Imodium] 2 mg PO DAILY PRN PRN Reason: Diarrhea L.acidoph,Paracasei, B.lactis [Probiotic] 1 cap PO DAILY Nitrofurantoin Monohyd/M-Cryst [Macrobid] 100 mg PO Q12H Discharge Medication List Carvedilol [Coreg] 25 mg PO BID 06/07/17 [History] Levothyroxine Sodium [Synthroid] 137 mcg PO DAILY 10/20/17 [History] Montelukast [Singulair] 10 mg PO DAILY 06/28/18 [History] DULoxetine HCL [Cymbalta] 60 mg PO BID 08/15/18 [History] rOPINIRole HCL [Requip] 4 mg PO BID 11/18/18 [History] Torsemide [Demadex] 50 mg PO SUTUTHSA 12/15/18 [History] Torsemide [Demadex] 100 mg PO MOWEFR 12/15/18 [History] Acetaminophen [Tylenol 8 Hour] 650 mg PO TID 08/14/19 [History] Loratadine [Claritin] 10 mg PO DAILY 08/14/19 [History] Magnesium Oxide [Mag-Ox] 400 mg PO DAILY 08/14/19 [History] Multivitamins, Thera [Multivitamin (formulary)] 1 tab PO DAILY 08/14/19 [History] Omeprazole 20 mg PO DAILY 08/14/19 [History] allopurinoL [Zyloprim] 100 mg PO DAILY 08/14/19 [History] Nystatin 100,000 Unit/gm Powd [Mycostatin Powder] 1 applic TOPICAL BID 7 Days #15 gm 10/14/19 [Rx] Ferrous Gluconate 324 mg PO BID 01/19/20 [History] Gabapentin [Neurontin] 400 mg PO TID 01/19/20 [History] Melatonin 10 mg PO HS 01/19/20 [History] Diclofenac Sodium [Voltaren Gel] 4 gram TOPICAL QID PRN 04/03/20 [History] Potassium Chloride ER [K-Dur 10] 10 meq PO DAILY 04/03/20 [History] Cholecalciferol [Vitamin D3 (25 Mcg = 1000 Iu)] 5,000 unit PO DAILY 04/28/20 [History] Paliperidone Palmitate [Invega Sustenna] 117 mg IM Q28D 05/12/20 [History] QUEtiapine [SEROquel] 25 mg PO TID 05/12/20 [History] Sennosides/Docusate Sodium [Senna Plus 8.6-50 mg Tablet] 2 tab PO HS 05/12/20 [History] lamoTRIgine [LaMICtal] 200 mg PO DAILY 05/12/20 [History] traMADol HCL 50 mg PO Q8H PRN 05/12/20 [History] L.acidoph,Paracasei, B.lactis [Probiotic] 1 cap PO DAILY 06/02/20 [History] Loperamide [Imodium] 2 mg PO DAILY PRN 06/02/20 [History] Nitrofurantoin Monohyd/M-Cryst [Macrobid] 100 mg PO Q12H 06/02/20 [History] Cefuroxime Axetil [Ceftin] 500 mg PO BID 1 Days #6 tab 06/05/20 [Rx] Follow up Appointment(s)/Referral(s): Beau Jade MD [Primary Care Provider] - 1-2 days (Office closed at time of discharge, call Saturday to make an appointment.) Activity/Diet/Wound Care/Special Instructions: [facility] care: #[phone] f/u as per psychiatry Start Ceftin tomorrow Discharge Disposition: HOME WITH HOME HEALTH SERVICES
--- NOTE | 2020-06-06 03:47 | CONS ---
CONSULTATION PURPOSE FOR CONSULTATION: Evaluate for depression. HISTORY OF PRESENTING ILLNESS: The patient is a 60-year-old female who has a number of chronic health issues. She was admitted for shortness of breath. From a psychiatric standpoint she has had long-term issues with mood disorder and depression. She has had past psychiatric hospitalizations. She is followed by [facility]. Currently, she is on Cymbalta 60 mg twice a day, Lamictal 200 mg a day and Seroquel 25 mg 3 times a day as her psychotropic medications. She has made some conflicting statements over the last few days in regards to her mood state. She had told nursing staff at different times today that she was not having trouble with depression and did not have any thoughts of suicide. When I talked to her she said that she was minimizing problems to others and that in fact she has some fairly persistent thoughts of suicide, though she does not feel she has an impulse to act on them. On the other hand, she says she does have pills at home that she could take, which was a concern for her. She has significant health issues that make it difficult for her to manage at home. She does have some limited in- home services. She feels that she would benefit from some additional home care services. It is noted that our on-call nurse had a contact with her home-care nurse. The nurse indicated that the patient did not have pills at home and that in fact the nurse visits every Saturday and addresses any medication needs. She has the nurse was quite certain about the idea that there would not be pills at home for her to be at risk for self-harm. From the patient's standpoint, she was anticipating followup with [facility] and said that she would likely see somebody very early in the week. MENTAL STATUS EXAM: Patient was lying in bed. She gave fairly good eye contact. She was a little restless. She answered questions directly. Her thoughts were clear and coherent. Her affect was a little constricted. She had a quiet manner. She did not appear to be significantly down or depressed. She was not distressed. She was able to talk about discharge planning issues without difficulty. There was no indication of thought disorder. She voiced no thoughts of harm to self or others other than making a vague statement about pills that she could take. Apparently, there are not pills available to her. Cognition was clear. ASSESSMENT: This 60-year-old female was diagnosed with depression. She has had chronic and recurrent episodes of depression. She is followed by [facility] from a psychiatric standpoint. She would be appropriate for discharge with followup through [facility]. MMMIGUE / IJN: [id number] /
== END 2020-06-05 17:23 | disposition home health service (06) | DRG 177 ==
LOC: EC 14:56 → 4SSUR 19:40 → OBSVTOIN 06-04 08:30
PROVIDERS: ADMIT Hospitalist; ATTEND Hospitalist
DX: J15.6 Pneumonia due to other Gram-negative bacteria (principal); I50.33 Acute on chronic diastolic (congestive) heart failure; R45.851 Suicidal ideations; I27.82 Chronic pulmonary embolism; Z68.44 Body mass index [BMI] 60.0-69.9, adult; J44.0 Chronic obstructive pulmonary disease with (acute) lower respiratory infection; J44.1 Chronic obstructive pulmonary disease with (acute) exacerbation; F31.30 Bipolar disorder, current episode depressed, mild or moderate severity, unspecified; E11.36 Type 2 diabetes mellitus with diabetic cataract; I11.0 Hypertensive heart disease with heart failure; E66.01 Morbid (severe) obesity due to excess calories; H26.9 Unspecified cataract; I35.0 Nonrheumatic aortic (valve) stenosis; N39.3 Stress incontinence (female) (male); K21.9 Gastro-esophageal reflux disease without esophagitis; E78.5 Hyperlipidemia, unspecified; E03.9 Hypothyroidism, unspecified; D64.9 Anemia, unspecified; F41.0 Panic disorder [episodic paroxysmal anxiety]; F43.10 Post-traumatic stress disorder, unspecified; G25.81 Restless legs syndrome; G89.29 Other chronic pain; M51.26 Other intervertebral disc displacement, lumbar region; M10.9 Gout, unspecified; H35.30 Unspecified macular degeneration; M19.90 Unspecified osteoarthritis, unspecified site; Z79.890 Hormone replacement therapy; Z79.01 Long term (current) use of anticoagulants; Z79.899 Other long term (current) drug therapy; Z87.39 Personal history of other diseases of the musculoskeletal system and connective tissue; Z87.01 Personal history of pneumonia (recurrent); Z87.440 Personal history of urinary (tract) infections; Z98.84 Bariatric surgery status; Z87.19 Personal history of other diseases of the digestive system; Z96.651 Presence of right artificial knee joint; Z87.81 Personal history of (healed) traumatic fracture; Z98.890 Other specified postprocedural states; Z88.0 Allergy status to penicillin; Z88.2 Allergy status to sulfonamides; Z88.7 Allergy status to serum and vaccine; Z88.8 Allergy status to other drugs, medicaments and biological substances; Z80.1 Family history of malignant neoplasm of trachea, bronchus and lung; Z83.3 Family history of diabetes mellitus; Z82.49 Family history of ischemic heart disease and other diseases of the circulatory system; Z83.2 Family history of diseases of the blood and blood-forming organs and certain disorders involving the immune mechanism
CPT/HCPCS: 36415; 71046; 80048; 80053; 83605; 83735; 83880; 84145; 84484; 85025; 85027; 87040; 93005; 93306; 94640; 96361; 96365; 96368; 96375; 99285

== ENCOUNTER 2020-06-09 15:53 | Emergency (ER) | payer MEDICARE, OTHER ==
[2020-06-09 16:06] VITALS: PULSE 99; RESP 16; TEMP 98.2
[2020-06-09] MEDS ORDERED: LORazepam 1 MG TAB PO STA (16:22)
[2020-06-09] MEDS ORDERED: ONDANSETRON ODT 4 MG TAB PO STA (16:22)
--- NOTE | 2020-06-09 16:46 | ED ---
Dizziness HPI - General Chief Complaint: Dizziness Stated Complaint: dizziness Time Seen by Provider: 06/09/20 15:58 Source: EMS, RN notes reviewed, old records reviewed Mode of arrival: EMS Limitations: no limitations - History of Present Illness Initial Comments: This is a 60-year-old female DF for dizziness today. Dizziness and episode of nausea vomiting. Recent hospital admission but does resist off antibiotics for pneumonia. Patient otherwise has no complaints no abdominal pain no history of enlarged gallbladder. No recent change in medications otherwise. No fevers cough or congestion currently MD Complaint: dizziness -: hour(s) (2 hours) Description: lightheadedness, nausea History of Same: Yes History of Trauma: No Severity: mild Improves With: remaining still Worsens With: nothing Associated Symptoms: loss of appetite, weakness - Related Data Home Medications Medication Instructions Recorded Confirmed Carvedilol [Coreg] 25 mg PO BID 06/07/17 06/02/20 Levothyroxine Sodium [Synthroid] 137 mcg PO DAILY 10/20/17 06/02/20 Montelukast [Singulair] 10 mg PO DAILY 06/28/18 06/02/20 DULoxetine HCL [Cymbalta] 60 mg PO BID 08/15/18 06/02/20 rOPINIRole HCL [Requip] 4 mg PO BID 11/18/18 06/02/20 Torsemide [Demadex] 50 mg PO SUTUTHSA 12/15/18 06/02/20 Torsemide [Demadex] 100 mg PO MOWEFR 12/15/18 06/02/20 Acetaminophen [Tylenol 8 Hour] 650 mg PO TID 08/14/19 06/02/20 Loratadine [Claritin] 10 mg PO DAILY 08/14/19 06/02/20 Magnesium Oxide [Mag-Ox] 400 mg PO DAILY 08/14/19 06/02/20 Multivitamins, Thera [Multivitamin 1 tab PO DAILY 08/14/19 06/02/20 (formulary)] Omeprazole 20 mg PO DAILY 08/14/19 06/02/20 allopurinoL [Zyloprim] 100 mg PO DAILY 08/14/19 06/02/20 Ferrous Gluconate 324 mg PO BID 01/19/20 06/02/20 Gabapentin [Neurontin] 400 mg PO TID 01/19/20 06/02/20 Melatonin 10 mg PO HS 01/19/20 06/02/20 Diclofenac Sodium [Voltaren Gel] 4 gram TOPICAL QID PRN 04/03/20 06/02/20 Potassium Chloride ER [K-Dur 10] 10 meq PO DAILY 04/03/20 06/02/20 Cholecalciferol [Vitamin D3 (25 5,000 unit PO DAILY 04/28/20 06/02/20 Mcg = 1000 Iu)] Paliperidone Palmitate [Invega 117 mg IM Q28D 05/12/20 06/02/20 Sustenna] QUEtiapine [SEROquel] 25 mg PO TID 05/12/20 06/02/20 Sennosides/Docusate Sodium [Senna 2 tab PO HS 05/12/20 06/02/20 Plus 8.6-50 mg Tablet] lamoTRIgine [LaMICtal] 200 mg PO DAILY 05/12/20 06/02/20 traMADol HCL 50 mg PO Q8H PRN 05/12/20 06/02/20 L.acidoph,Paracasei, B.lactis 1 cap PO DAILY 06/02/20 06/02/20 [Probiotic] Loperamide [Imodium] 2 mg PO DAILY PRN 06/02/20 06/02/20 Nitrofurantoin Monohyd/M-Cryst 100 mg PO Q12H 06/02/20 06/02/20 [Macrobid] Previous Rx's Medication Instructions Recorded Nystatin 100,000 Unit/gm Powd 1 applic TOPICAL BID 7 Days #15 gm 10/14/19 [Mycostatin Powder] Cefuroxime Axetil [Ceftin] 500 mg PO BID 1 Days #6 tab 06/05/20 Allergies Allergy/AdvReac Type Severity Reaction Status Date / Time buspirone [From BuSpar] Allergy Rash/Hives Verified 06/02/20 21:19 haloperidol [From Haldol] Allergy Swelling Verified 06/02/20 21:19 hydroxyzine [From Vistaril] Allergy Rash/Hives Verified 06/02/20 21:19 iodine Allergy Swelling Verified 06/02/20 21:19 Penicillins Allergy Swelling Verified 06/02/20 21:19 prochlorperazine Allergy Rash/Hives Verified 06/02/20 21:19 Sulfa (Sulfonamide Allergy Rash/Hives Verified 06/02/20 21:19 Antibiotics) Tetanus Vaccines and Toxoid Allergy Rash/Hives Verified 06/02/20 21:19 [Tetanus Vaccines & Toxoid] trifluoperazine HCl Allergy Unknown Verified 06/02/20 21:19 [From Stelazine] Review of Systems ROS Statement: Those systems with pertinent positive or pertinent negative responses have been documented in the HPI. ROS Other: All systems not noted in ROS Statement are negative. Past Medical History Past Medical History: Asthma, Heart Failure, COPD, Diabetes Mellitus, GERD/Reflux, Hyperlipidemia, Hypertension, Musculoskeletal Disorder, Osteoarthritis (OA), Pneumonia, Pulmonary Embolus (PE), Thyroid Disorder Additional Past Medical History / Comment(s): chronic low back pain, herniated discs, RLS, leg edema, anemia, gout bilateral feet, hypothyroid, UTIs, hx cellulitis, cataracts, macular degeneration History of Any Multi-Drug Resistant Organisms: None Reported Past Surgical History: Bariatric Surgery, Heart Catheterization, Hernia Repair, Orthopedic Surgery Additional Past Surgical History / Comment(s): Total Right knee replacement, 3 abdominal hernia repairs, left hip repair d/t fracture, gastric bypass/revision, colonoscopy. Past Anesthesia/Blood Transfusion Reactions: No Reported Reaction Past Psychological History: Anxiety, Bipolar, Depression, Panic Disorder, PTSD Smoking Status: Never smoker Past Alcohol Use History: Occasional Past Drug Use History: None Reported - Past Family History Mother Family Medical History: Cancer Additional Family Medical History / Comment(s): lung cancer Father Family Medical History: Diabetes Mellitus Additional Family Medical History / Comment(s): "my dad from a blood clot that traveled from his leg to his lung and also caused a heart attack." Brother(s) Family Medical History: Diabetes Mellitus Sister(s) Additional Family Medical History / Comment(s): "her heart races too fast" General Exam General appearance: alert, in no apparent distress, obese Head exam: Present: atraumatic, normocephalic, normal inspection Eye exam: Present: normal appearance, PERRL, EOMI. Absent: scleral icterus, conjunctival injection, periorbital swelling ENT exam: Present: normal exam, mucous membranes moist Neck exam: Present: normal inspection. Absent: tenderness, meningismus, lymphadenopathy Respiratory exam: Present: normal lung sounds bilaterally. Absent: respiratory distress, wheezes, rales, rhonchi, stridor Cardiovascular Exam: Present: regular rate, normal rhythm, normal heart sounds. Absent: systolic murmur, diastolic murmur, rubs, gallop, clicks GI/Abdominal exam: Present: soft, normal bowel sounds. Absent: distended, tenderness, guarding, rebound, rigid Extremities exam: Present: normal inspection, full ROM, normal capillary refill. Absent: tenderness, pedal edema, joint swelling, calf tenderness Back exam: Present: normal inspection Neurological exam: Present: alert, oriented X3, CN II-XII intact Psychiatric exam: Present: normal affect, normal mood Skin exam: Present: warm, dry, intact, normal color. Absent: rash Course Vital Signs 06/09/20 16:02 Temperature 98.2 F Pulse Rate 99 Respiratory 16 Rate Blood Pressure 124/75 O2 Sat by Pulse 95 Oximetry - Reevaluation(s) Reevaluation #1: 06/09/20 17:18 Medical records reviewed 06/09/20 17:18 Recent hospitalization is reviewed Reevaluation #2: 06/09/20 17:18 Patient feeling better, informed of results, questions answered Reevaluation #3: 06/09/20 17:20 She is in no respiration stress Medical Decision Making - Medical Decision Making 60 female DF for evaluation patient with nausea vomiting recently off antibiotics. Patient's no distress can be discharged home - Radiology Data Radiology results: report reviewed (Chest x-rays negative for acute disease, maybe mild perivascular congestion), image reviewed Disposition Clinical Impression: Nausea and vomiting Disposition: HOME SELF-CARE Condition: Good Instructions (If sedation given, give patient instructions): Acute Nausea and Vomiting (ED) Is patient prescribed a controlled substance at d/c from ED?: No Referrals: Beau Jade MD [Primary Care Provider] - 1-2 days
--- NOTE | 2020-06-09 16:50 | XR ---
EXAMINATION TYPE: XR chest 2V DATE OF EXAM: 06/09/2020 COMPARISON: Chest x-ray 4 days ago. HISTORY: Recent pneumonia with new dizziness and weakness. TECHNIQUE: Frontal and lateral views of the chest are obtained. FINDINGS: Suboptimal due to large body habitus. Persistent cardiomegaly. Suspect mild central vascul ar congestion. No suspicious new focal airspace opacity, pleural effusion, or pneumothorax. The oss eous structures are intact. IMPRESSION: Cardiomegaly with perhaps new mild central vascular congestion. Correlate for CHF exacer bation or fluid overload state. No suspicious new focal infiltrate.
[2020-06-09 18:14] VITALS: BP 114/72
== END 2020-06-09 18:14 | disposition home or self-care (01) ==
LOC: EC 15:53
DX: R11.2 Nausea with vomiting, unspecified (principal); I11.0 Hypertensive heart disease with heart failure; I50.9 Heart failure, unspecified; J44.9 Chronic obstructive pulmonary disease, unspecified; M19.90 Unspecified osteoarthritis, unspecified site; G25.81 Restless legs syndrome; K21.9 Gastro-esophageal reflux disease without esophagitis; M10.9 Gout, unspecified; E03.9 Hypothyroidism, unspecified; N39.0 Urinary tract infection, site not specified; G89.29 Other chronic pain; M54.5 Low back pain; D64.9 Anemia, unspecified; F41.9 Anxiety disorder, unspecified; F31.9 Bipolar disorder, unspecified; F43.10 Post-traumatic stress disorder, unspecified; Z79.899 Other long term (current) drug therapy; Z79.890 Hormone replacement therapy; Z88.8 Allergy status to other drugs, medicaments and biological substances; Z91.048 Other nonmedicinal substance allergy status; Z88.0 Allergy status to penicillin; Z88.7 Allergy status to serum and vaccine; Z88.2 Allergy status to sulfonamides; Z98.84 Bariatric surgery status; Z96.651 Presence of right artificial knee joint; Z87.01 Personal history of pneumonia (recurrent); Z86.711 Personal history of pulmonary embolism
CPT/HCPCS: 71046; 99284

== ENCOUNTER 2020-06-13 17:34 | Emergency (ER) | payer MEDICARE, OTHER ==
[2020-06-13 17:49] VITALS: BP 147/81; PULSE 82; RESP 16; TEMP 98
--- NOTE | 2020-06-13 18:03 | ED ---
General Adult HPI - General Chief complaint: Psychiatric Symptoms Stated complaint: Suicidal Time Seen by Provider: 06/13/20 17:38 Source: patient, EMS, RN notes reviewed Mode of arrival: EMS Limitations: no limitations - History of Present Illness Initial comments: Patient is a 60-year-old female presenting to the emergency department for mental health evaluation. Patient states she did tell her social media marketing analyst that she had thoughts wishing she was in the next to her mother. Patient denies suicidal thoughts. Patient states she does have these thoughts from time to time. Patient does not feel suicidal at this time. No new physical complaints. No homicidal thoughts. 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 Patient also has stress or of legal action against her for reportedly striking someone. Patient does not recall this. - Related Data Home Medications Medication Instructions Recorded Confirmed Carvedilol [Coreg] 25 mg PO BID 06/07/17 06/13/20 Levothyroxine Sodium [Synthroid] 137 mcg PO DAILY 10/20/17 06/13/20 Montelukast [Singulair] 10 mg PO DAILY 06/28/18 06/13/20 DULoxetine HCL [Cymbalta] 60 mg PO BID 08/15/18 06/13/20 rOPINIRole HCL [Requip] 4 mg PO BID 11/18/18 06/13/20 Torsemide [Demadex] 50 mg PO SUTUTHSA 12/15/18 06/13/20 Torsemide [Demadex] 100 mg PO MOWEFR 12/15/18 06/13/20 Acetaminophen [Tylenol 8 Hour] 650 mg PO TID 08/14/19 06/13/20 Loratadine [Claritin] 10 mg PO DAILY 08/14/19 06/13/20 Magnesium Oxide [Mag-Ox] 400 mg PO DAILY 08/14/19 06/13/20 Multivitamins, Thera [Multivitamin 1 tab PO DAILY 08/14/19 06/13/20 (formulary)] Omeprazole 20 mg PO DAILY 08/14/19 06/13/20 allopurinoL [Zyloprim] 100 mg PO DAILY 08/14/19 06/13/20 Ferrous Gluconate 324 mg PO BID 01/19/20 06/13/20 Gabapentin [Neurontin] 400 mg PO TID 01/19/20 06/13/20 Melatonin 10 mg PO HS 01/19/20 06/13/20 Diclofenac Sodium [Voltaren Gel] 4 gram TOPICAL QID PRN 04/03/20 06/13/20 Potassium Chloride ER [K-Dur 10] 10 meq PO DAILY 04/03/20 06/13/20 Cholecalciferol [Vitamin D3 (25 5,000 unit PO DAILY 04/28/20 06/13/20 Mcg = 1000 Iu)] QUEtiapine [SEROquel] 25 mg PO TID 05/12/20 06/13/20 Sennosides/Docusate Sodium [Senna 2 tab PO HS 05/12/20 06/13/20 Plus 8.6-50 mg Tablet] lamoTRIgine [LaMICtal] 200 mg PO DAILY 05/12/20 06/13/20 traMADol HCL 50 mg PO Q8H PRN 05/12/20 06/13/20 L.acidoph,Paracasei, B.lactis 1 cap PO DAILY 06/02/20 06/13/20 [Probiotic] Loperamide [Imodium] 2 mg PO DAILY PRN 06/02/20 06/13/20 Paliperidone IM [Invega Sustenna] 156 mg IM Q28D 06/13/20 06/13/20 Previous Rx's Medication Instructions Recorded Nystatin 100,000 Unit/gm Powd 1 applic TOPICAL BID 7 Days #15 gm 10/14/19 [Mycostatin Powder] Allergies Allergy/AdvReac Type Severity Reaction Status Date / Time buspirone [From BuSpar] Allergy Rash/Hives Verified 06/13/20 19:41 haloperidol [From Haldol] Allergy Swelling Verified 06/13/20 19:41 hydroxyzine [From Vistaril] Allergy Rash/Hives Verified 06/13/20 19:41 iodine Allergy Swelling Verified 06/13/20 19:41 Penicillins Allergy Swelling Verified 06/13/20 19:41 prochlorperazine Allergy Rash/Hives Verified 06/13/20 19:41 Sulfa (Sulfonamide Allergy Rash/Hives Verified 06/13/20 19:41 Antibiotics) Tetanus Vaccines and Toxoid Allergy Rash/Hives Verified 06/13/20 19:41 [Tetanus Vaccines & Toxoid] trifluoperazine HCl Allergy Unknown Verified 06/13/20 19:41 [From Ranjit] Review of Systems ROS Statement: Those systems with pertinent positive or pertinent negative responses have been documented in the HPI. ROS Other: All systems not noted in ROS Statement are negative. Constitutional: Denies: fever Eyes: Denies: eye pain ENT: Denies: ear pain Respiratory: Denies: cough Cardiovascular: Denies: chest pain Endocrine: Denies: fatigue Gastrointestinal: Denies: abdominal pain Genitourinary: Denies: urgency Musculoskeletal: Denies: back pain Skin: Denies: rash Neurological: Denies: weakness Psychiatric: Reports: depression. Denies: homicidal thoughts, suicidal thoughts Past Medical History Past Medical History: Asthma, Heart Failure, COPD, Diabetes Mellitus, GERD/Reflux, Hyperlipidemia, Hypertension, Musculoskeletal Disorder, Osteoarthritis (OA), Pneumonia, Pulmonary Embolus (PE), Thyroid Disorder Additional Past Medical History / Comment(s): chronic low back pain, herniated discs, RLS, leg edema, anemia, gout bilateral feet, hypothyroid, UTIs, hx cellulitis, cataracts, macular degeneration History of Any Multi-Drug Resistant Organisms: None Reported Past Surgical History: Bariatric Surgery, Heart Catheterization, Hernia Repair, Orthopedic Surgery Additional Past Surgical History / Comment(s): Total Right knee replacement, 3 abdominal hernia repairs, left hip repair d/t fracture, gastric bypass/revision, colonoscopy. Past Anesthesia/Blood Transfusion Reactions: No Reported Reaction Past Psychological History: Anxiety, Bipolar, Depression, Panic Disorder, PTSD Smoking Status: Never smoker Past Alcohol Use History: Occasional Past Drug Use History: None Reported - Past Family History Mother Family Medical History: Cancer Additional Family Medical History / Comment(s): lung cancer Father Family Medical History: Diabetes Mellitus Additional Family Medical History / Comment(s): "my dad from a blood clot that traveled from his leg to his lung and also caused a heart attack." Brother(s) Family Medical History: Diabetes Mellitus Sister(s) Additional Family Medical History / Comment(s): "her heart races too fast" General Exam Limitations: no limitations General appearance: alert, in no apparent distress, obese Head exam: Present: normocephalic Eye exam: Present: normal appearance Neck exam: Present: normal inspection Respiratory exam: Present: normal lung sounds bilaterally Cardiovascular Exam: Present: regular rate, normal rhythm GI/Abdominal exam: Present: soft. Absent: tenderness Extremities exam: Present: normal inspection Neurological exam: Present: alert Psychiatric exam: Present: normal affect, normal mood Skin exam: Present: normal color Course Vital Signs 06/13/20 17:46 Temperature 98 F Pulse Rate 82 Respiratory 16 Rate Blood Pressure 147/81 O2 Sat by Pulse 95 Oximetry Medical Decision Making - Medical Decision Making Patient seen by mental health services with plans for discharge and follow-up - Lab Data Lab Results 06/13/20 Range/Units 18:11 Urine Opiates Screen Not Detected (NotDetected) Ur Oxycodone Screen Not Detected (NotDetected) Urine Methadone Screen Not Detected (NotDetected) Ur Propoxyphene Screen Not Detected (NotDetected) Ur Barbiturates Screen Not Detected (NotDetected) U Tricyclic Antidepress Not Detected (NotDetected) Ur Phencyclidine Scrn Not Detected (NotDetected) Ur Amphetamines Screen Not Detected (NotDetected) U Methamphetamines Scrn Not Detected (NotDetected) U Benzodiazepines Scrn Not Detected (NotDetected) Urine Cocaine Screen Not Detected (NotDetected) U Marijuana (THC) Screen Not Detected (NotDetected) Disposition Clinical Impression: Bipolar disorder Disposition: HOME SELF-CARE Condition: Stable Instructions (If sedation given, give patient instructions): Bipolar Disorder (ED) Additional Instructions: Please follow-up with mental health services this week as planned. Return for worsening symptoms or other concerns. Please also follow-up to primary care physician. Is patient prescribed a controlled substance at d/c from ED?: No Referrals: Beau Jade MD [Primary Care Provider] - 1-2 days Time of Disposition: 20:04
[2020-06-13 18:47] LABS: Amphetamine Screen,Urine Not Detected (NotDetected); Barbiturate Screen,Urine Not Detected (NotDetected); Benzodiazepines Screen,Urine Not Detected (NotDetected); Cocaine Screen,Urine Not Detected (NotDetected); Methadone Screen, Urine Not Detected (NotDetected); Opiate Screen,Urine Not Detected (NotDetected); Oxycodone Screen, Urine Not Detected (NotDetected); Phencyclidine Screen,Urine Not Detected (NotDetected); Tricyclic Antidepressant,Urine Not Detected (NotDetected); Urn Cannabinoid Scrn Not Detected (NotDetected)
== END 2020-06-13 21:03 | disposition home or self-care (01) ==
LOC: EC 17:34
DX: F31.9 Bipolar disorder, unspecified (principal); E11.36 Type 2 diabetes mellitus with diabetic cataract; J44.9 Chronic obstructive pulmonary disease, unspecified; I11.0 Hypertensive heart disease with heart failure; I50.9 Heart failure, unspecified; E78.5 Hyperlipidemia, unspecified; E03.9 Hypothyroidism, unspecified; K21.9 Gastro-esophageal reflux disease without esophagitis; Z79.02 Long term (current) use of antithrombotics/antiplatelets; Z79.890 Hormone replacement therapy; Z79.899 Other long term (current) drug therapy; Z79.51 Long term (current) use of inhaled steroids; Z88.8 Allergy status to other drugs, medicaments and biological substances; Z91.048 Other nonmedicinal substance allergy status; Z88.0 Allergy status to penicillin; Z88.2 Allergy status to sulfonamides; Z88.7 Allergy status to serum and vaccine; Z98.84 Bariatric surgery status; Z96.651 Presence of right artificial knee joint; Z86.711 Personal history of pulmonary embolism
CPT/HCPCS: 80306; 99285

== ENCOUNTER → 2020-06-16 | Outpatient (CLI) | payer MEDICARE, OTHER ==
--- NOTE | 2020-06-16 16:44 | XR ---
EXAMINATION TYPE: XR elbow complete LT DATE OF EXAM: 06/16/2020 CLINICAL HISTORY: Pain in left elbow after fall TECHNIQUE: Frontal, lateral and oblique images of the left elbow are obtained. COMPARISON: None FINDINGS: There is no acute fracture/dislocation evident in the left elbow. No abnormal fat pad sig ns are seen. There is tiny prominence of the posterior elbow soft tissue at the olecranon. IMPRESSION: 1. No acute fracture or dislocation of the left elbow. 2. Tiny soft tissue prominence of the posterior elbow may represent inflamed olecranon bursa versus s oft tissue swelling.
== END | disposition home or self-care (01) ==
LOC: RADXRMAIN 12:38
PROVIDERS: ATTEND Psychiatry & Neurology Neurology
DX: M25.522 Pain in left elbow (principal); Z91.81 History of falling

== ENCOUNTER 2020-06-18 16:36 | Emergency (ER) | payer MEDICARE, OTHER ==
--- NOTE | 2020-06-18 16:54 | ED ---
Chest Pain HPI - General Chief Complaint: Chest Pain Stated Complaint: Chest Pain Time Seen by Provider: 06/18/20 16:48 Source: EMS, RN notes reviewed, old records reviewed Mode of arrival: EMS Limitations: no limitations - History of Present Illness Initial Comments: This is a 60-year-old female DF for evaluation, patient Dese for evaluation of chest pain although patient on arrival admits to anxiety states she was at [facility] today she does get anxiety and palpitations and became very stressed out she called EMS and is brought to the ER. Patient's very emotional here in the emergency department is also wall this facility for illness MD Complaint: chest pain -: days(s) Onset: during rest Pain Location: left chest Pain Radiation: none Severity: mild Severity scale (1-10): 3 Quality: tightness Consistency: constant Improves With: nothing Worsens With: nothing Anginal Symptoms: nausea Treatments Prior to Arrival: none - Related Data Home Medications Medication Instructions Recorded Confirmed Carvedilol [Coreg] 25 mg PO BID 06/07/17 06/13/20 Levothyroxine Sodium [Synthroid] 137 mcg PO DAILY 10/20/17 06/13/20 Montelukast [Singulair] 10 mg PO DAILY 06/28/18 06/13/20 DULoxetine HCL [Cymbalta] 60 mg PO BID 08/15/18 06/13/20 rOPINIRole HCL [Requip] 4 mg PO BID 11/18/18 06/13/20 Torsemide [Demadex] 50 mg PO SUTUTHSA 12/15/18 06/13/20 Torsemide [Demadex] 100 mg PO MOWEFR 12/15/18 06/13/20 Acetaminophen [Tylenol 8 Hour] 650 mg PO TID 08/14/19 06/13/20 Loratadine [Claritin] 10 mg PO DAILY 08/14/19 06/13/20 Magnesium Oxide [Mag-Ox] 400 mg PO DAILY 08/14/19 06/13/20 Multivitamins, Thera [Multivitamin 1 tab PO DAILY 08/14/19 06/13/20 (formulary)] Omeprazole 20 mg PO DAILY 08/14/19 06/13/20 allopurinoL [Zyloprim] 100 mg PO DAILY 08/14/19 06/13/20 Ferrous Gluconate 324 mg PO BID 01/19/20 06/13/20 Gabapentin [Neurontin] 400 mg PO TID 01/19/20 06/13/20 Melatonin 10 mg PO HS 01/19/20 06/13/20 Diclofenac Sodium [Voltaren Gel] 4 gram TOPICAL QID PRN 04/03/20 06/13/20 Potassium Chloride ER [K-Dur 10] 10 meq PO DAILY 04/03/20 06/13/20 Cholecalciferol [Vitamin D3 (25 5,000 unit PO DAILY 04/28/20 06/13/20 Mcg = 1000 Iu)] QUEtiapine [SEROquel] 25 mg PO TID 05/12/20 06/13/20 Sennosides/Docusate Sodium [Senna 2 tab PO HS 05/12/20 06/13/20 Plus 8.6-50 mg Tablet] lamoTRIgine [LaMICtal] 200 mg PO DAILY 05/12/20 06/13/20 traMADol HCL 50 mg PO Q8H PRN 05/12/20 06/13/20 L.acidoph,Paracasei, B.lactis 1 cap PO DAILY 06/02/20 06/13/20 [Probiotic] Loperamide [Imodium] 2 mg PO DAILY PRN 06/02/20 06/13/20 Paliperidone IM [Invega Sustenna] 156 mg IM Q28D 06/13/20 06/13/20 Previous Rx's Medication Instructions Recorded Nystatin 100,000 Unit/gm Powd 1 applic TOPICAL BID 7 Days #15 gm 10/14/19 [Mycostatin Powder] Allergies Allergy/AdvReac Type Severity Reaction Status Date / Time buspirone [From BuSpar] Allergy Rash/Hives Verified 06/18/20 16:44 haloperidol [From Haldol] Allergy Swelling Verified 06/18/20 16:44 hydroxyzine [From Vistaril] Allergy Rash/Hives Verified 06/18/20 16:44 iodine Allergy Swelling Verified 06/18/20 16:44 Penicillins Allergy Swelling Verified 06/18/20 16:44 prochlorperazine Allergy Rash/Hives Verified 06/18/20 16:44 Sulfa (Sulfonamide Allergy Rash/Hives Verified 06/18/20 16:44 Antibiotics) Tetanus Vaccines and Toxoid Allergy Rash/Hives Verified 06/18/20 16:44 [Tetanus Vaccines & Toxoid] trifluoperazine HCl Allergy Unknown Verified 06/18/20 16:44 [From Stelazine] Review of Systems ROS Statement: Those systems with pertinent positive or pertinent negative responses have been documented in the HPI. ROS Other: All systems not noted in ROS Statement are negative. EKG Findings - EKG Comments: EKG Findings:: EKG shows sinus rhythm 77 CA 136 QRS 92 QTC 441 Past Medical History Past Medical History: Asthma, Heart Failure, COPD, Diabetes Mellitus, GERD/Reflux, Hyperlipidemia, Hypertension, Musculoskeletal Disorder, Osteoarthritis (OA), Pneumonia, Pulmonary Embolus (PE), Thyroid Disorder Additional Past Medical History / Comment(s): chronic low back pain, herniated discs, RLS, leg edema, anemia, gout bilateral feet, hypothyroid, UTIs, hx cellulitis, cataracts, macular degeneration History of Any Multi-Drug Resistant Organisms: None Reported Past Surgical History: Bariatric Surgery, Heart Catheterization, Hernia Repair, Orthopedic Surgery Additional Past Surgical History / Comment(s): Total Right knee replacement, 3 abdominal hernia repairs, left hip repair d/t fracture, gastric bypass/revision, colonoscopy. Past Anesthesia/Blood Transfusion Reactions: No Reported Reaction Past Psychological History: Anxiety, Bipolar, Depression, Panic Disorder, PTSD Smoking Status: Never smoker Past Alcohol Use History: Occasional Past Drug Use History: None Reported - Past Family History Mother Family Medical History: Cancer Additional Family Medical History / Comment(s): lung cancer Father Family Medical History: Diabetes Mellitus Additional Family Medical History / Comment(s): "my dad from a blood clot that traveled from his leg to his lung and also caused a heart attack." Brother(s) Family Medical History: Diabetes Mellitus Sister(s) Additional Family Medical History / Comment(s): "her heart races too fast" General Exam Limitations: no limitations General appearance: alert, in no apparent distress Head exam: Present: atraumatic, normocephalic, normal inspection Eye exam: Present: normal appearance, PERRL, EOMI. Absent: scleral icterus, conjunctival injection, periorbital swelling ENT exam: Present: normal exam, mucous membranes moist Neck exam: Present: normal inspection. Absent: tenderness, meningismus, lymphadenopathy Respiratory exam: Present: normal lung sounds bilaterally. Absent: respiratory distress, wheezes, rales, rhonchi, stridor Cardiovascular Exam: Present: regular rate, normal rhythm, normal heart sounds. Absent: systolic murmur, diastolic murmur, rubs, gallop, clicks GI/Abdominal exam: Present: soft, normal bowel sounds. Absent: distended, tenderness, guarding, rebound, rigid Extremities exam: Present: normal inspection, full ROM, normal capillary refill. Absent: tenderness, pedal edema, joint swelling, calf tenderness Back exam: Present: normal inspection Neurological exam: Present: alert, oriented X3, CN II-XII intact Psychiatric exam: Present: normal affect, normal mood Skin exam: Present: warm, dry, intact, normal color. Absent: rash Course Vital Signs 06/18/20 06/18/20 06/18/20 16:38 18:33 20:30 Temperature 98.1 F Pulse Rate 80 78 79 Respiratory 18 18 19 Rate Blood Pressure 162/88 167/73 167/74 O2 Sat by Pulse 99 98 98 Oximetry 06/18/20 21:36 Temperature 98.2 F Pulse Rate 82 Respiratory 19 Rate Blood Pressure 172/75 O2 Sat by Pulse 98 Oximetry - Reevaluation(s) Reevaluation #1: 06/18/20 20:24 Medical record is reviewed 06/18/20 20:24 Medical clear for psychiatric evaluation Chest Pain MDM - MDM 60 female DF for evaluation patient Dese for chest pain chest x-rays negative EKG normal patient seen in however psychiatry patient can be discharged home Disposition Clinical Impression: Chest pain, Chest wall syndrome Disposition: HOME SELF-CARE Condition: Good Instructions (If sedation given, give patient instructions): Chest Pain (ED) Is patient prescribed a controlled substance at d/c from ED?: No Referrals: [facility] [Primary Care Provider] - 1-2 days
[2020-06-18] MEDS ORDERED: LORazepam 1 MG TAB PO STA (17:31)
--- NOTE | 2020-06-18 18:23 | XR ---
EXAMINATION TYPE: XR chest 2V DATE OF EXAM: 06/18/2020 COMPARISON: 06/09/2020 HISTORY: Chest pain TECHNIQUE: FINDINGS: There is no heart failure. Heart is deviated to the left side. There is no definite pleural effusion. Exam limited by patient's size. There is some pleural thickening along the lower lateral l eft side chest wall. IMPRESSION: Limited exam. There is shift of heart and mediastinum to the left side that could relate to surgery or atelectasis. This appears unchanged compared to old exam. No heart failure seen.
[2020-06-18 21:48] VITALS: RESP 19
[2020-06-18 21:51] VITALS: BP 172/75; PULSE 82; TEMP 98.2
== END 2020-06-18 21:40 | disposition home or self-care (01) ==
LOC: EC 16:36
DX: R07.1 Chest pain on breathing (principal); R11.0 Nausea; F41.9 Anxiety disorder, unspecified; F31.9 Bipolar disorder, unspecified; F41.0 Panic disorder [episodic paroxysmal anxiety]; F43.10 Post-traumatic stress disorder, unspecified; J44.9 Chronic obstructive pulmonary disease, unspecified; I11.0 Hypertensive heart disease with heart failure; I50.9 Heart failure, unspecified; E78.5 Hyperlipidemia, unspecified; E03.9 Hypothyroidism, unspecified; M19.90 Unspecified osteoarthritis, unspecified site; M10.9 Gout, unspecified; G25.81 Restless legs syndrome; Z79.52 Long term (current) use of systemic steroids; Z79.890 Hormone replacement therapy; Z79.899 Other long term (current) drug therapy; Z88.0 Allergy status to penicillin; Z88.2 Allergy status to sulfonamides; Z88.7 Allergy status to serum and vaccine; Z88.8 Allergy status to other drugs, medicaments and biological substances; Z98.49 Cataract extraction status, unspecified eye; Z95.5 Presence of coronary angioplasty implant and graft; Z96.651 Presence of right artificial knee joint
CPT/HCPCS: 71046; 93005; 99285

== ENCOUNTER 2020-06-19 16:28 | Emergency (ER) | payer MEDICARE, OTHER ==
[2020-06-19 16:40] VITALS: BP 173/89; PULSE 90; RESP 18; TEMP 98.2
--- NOTE | 2020-06-19 17:04 | ED ---
Psych HPI - General Chief Complaint: Psychiatric Symptoms Stated Complaint: EPS eval Time Seen by Provider: 06/19/20 16:31 Source: EMS Mode of arrival: EMS - History of Present Illness Initial Comments: Patient is a 60-year-old female with extensive psychiatric history presenting to the emergency department for psychiatric evaluation. Patient states she has been depressed to home and was feeling lonely. Patient states that she is feeling suicidal and is going to cut herself. She is denying homicidal thoughts and ideations. - Related Data Home Medications Medication Instructions Recorded Confirmed Carvedilol [Coreg] 25 mg PO BID 06/07/17 06/13/20 Levothyroxine Sodium [Synthroid] 137 mcg PO DAILY 10/20/17 06/13/20 Montelukast [Singulair] 10 mg PO DAILY 06/28/18 06/13/20 DULoxetine HCL [Cymbalta] 60 mg PO BID 08/15/18 06/13/20 rOPINIRole HCL [Requip] 4 mg PO BID 11/18/18 06/13/20 Torsemide [Demadex] 50 mg PO SUTUTHSA 12/15/18 06/13/20 Torsemide [Demadex] 100 mg PO MOWEFR 12/15/18 06/13/20 Acetaminophen [Tylenol 8 Hour] 650 mg PO TID 08/14/19 06/13/20 Loratadine [Claritin] 10 mg PO DAILY 08/14/19 06/13/20 Magnesium Oxide [Mag-Ox] 400 mg PO DAILY 08/14/19 06/13/20 Multivitamins, Thera [Multivitamin 1 tab PO DAILY 08/14/19 06/13/20 (formulary)] Omeprazole 20 mg PO DAILY 08/14/19 06/13/20 allopurinoL [Zyloprim] 100 mg PO DAILY 08/14/19 06/13/20 Ferrous Gluconate 324 mg PO BID 01/19/20 06/13/20 Gabapentin [Neurontin] 400 mg PO TID 01/19/20 06/13/20 Melatonin 10 mg PO HS 01/19/20 06/13/20 Diclofenac Sodium [Voltaren Gel] 4 gram TOPICAL QID PRN 04/03/20 06/13/20 Potassium Chloride ER [K-Dur 10] 10 meq PO DAILY 04/03/20 06/13/20 Cholecalciferol [Vitamin D3 (25 5,000 unit PO DAILY 04/28/20 06/13/20 Mcg = 1000 Iu)] QUEtiapine [SEROquel] 25 mg PO TID 05/12/20 06/13/20 Sennosides/Docusate Sodium [Senna 2 tab PO HS 05/12/20 06/13/20 Plus 8.6-50 mg Tablet] lamoTRIgine [LaMICtal] 200 mg PO DAILY 05/12/20 06/13/20 traMADol HCL 50 mg PO Q8H PRN 05/12/20 06/13/20 L.acidoph,Paracasei, B.lactis 1 cap PO DAILY 06/02/20 06/13/20 [Probiotic] Loperamide [Imodium] 2 mg PO DAILY PRN 06/02/20 06/13/20 Paliperidone IM [Invega Sustenna] 156 mg IM Q28D 06/13/20 06/13/20 Previous Rx's Medication Instructions Recorded Nystatin 100,000 Unit/gm Powd 1 applic TOPICAL BID 7 Days #15 gm 10/14/19 [Mycostatin Powder] Allergies Allergy/AdvReac Type Severity Reaction Status Date / Time buspirone [From BuSpar] Allergy Rash/Hives Verified 06/18/20 16:44 haloperidol [From Haldol] Allergy Swelling Verified 06/18/20 16:44 hydroxyzine [From Vistaril] Allergy Rash/Hives Verified 06/18/20 16:44 iodine Allergy Swelling Verified 06/18/20 16:44 Penicillins Allergy Swelling Verified 06/18/20 16:44 prochlorperazine Allergy Rash/Hives Verified 06/18/20 16:44 Sulfa (Sulfonamide Allergy Rash/Hives Verified 06/18/20 16:44 Antibiotics) Tetanus Vaccines and Toxoid Allergy Rash/Hives Verified 06/18/20 16:44 [Tetanus Vaccines & Toxoid] trifluoperazine HCl Allergy Unknown Verified 06/18/20 16:44 [From Stelazine] Review of Systems ROS Statement: Those systems with pertinent positive or pertinent negative responses have been documented in the HPI. ROS Other: All systems not noted in ROS Statement are negative. Past Medical History Past Medical History: Asthma, Heart Failure, COPD, Diabetes Mellitus, GERD/Reflux, Hyperlipidemia, Hypertension, Musculoskeletal Disorder, Osteoarthritis (OA), Pneumonia, Pulmonary Embolus (PE), Thyroid Disorder Additional Past Medical History / Comment(s): chronic low back pain, herniated discs, RLS, leg edema, anemia, gout bilateral feet, hypothyroid, UTIs, hx cellulitis, cataracts, macular degeneration History of Any Multi-Drug Resistant Organisms: None Reported Past Surgical History: Bariatric Surgery, Heart Catheterization, Hernia Repair, Orthopedic Surgery Additional Past Surgical History / Comment(s): Total Right knee replacement, 3 abdominal hernia repairs, left hip repair d/t fracture, gastric bypass/revision, colonoscopy. Past Anesthesia/Blood Transfusion Reactions: No Reported Reaction Past Psychological History: Anxiety, Bipolar, Depression, Panic Disorder, PTSD Smoking Status: Never smoker Past Alcohol Use History: Occasional Past Drug Use History: None Reported - Past Family History Mother Family Medical History: Cancer Additional Family Medical History / Comment(s): lung cancer Father Family Medical History: Diabetes Mellitus Additional Family Medical History / Comment(s): "my dad from a blood clot that traveled from his leg to his lung and also caused a heart attack." Brother(s) Family Medical History: Diabetes Mellitus Sister(s) Additional Family Medical History / Comment(s): "her heart races too fast" General Exam Limitations: no limitations General appearance: alert, in no apparent distress, obese Head exam: Present: atraumatic, normocephalic, normal inspection Eye exam: Present: normal appearance, PERRL, EOMI Pupils: Present: normal accommodation ENT exam: Present: normal exam, normal oropharynx, mucous membranes moist Neck exam: Present: normal inspection, full ROM Respiratory exam: Present: normal lung sounds bilaterally. Absent: respiratory distress, wheezes Cardiovascular Exam: Present: regular rate, normal rhythm, normal heart sounds Extremities exam: Present: normal inspection, full ROM, normal capillary refill Back exam: Present: normal inspection, full ROM. Absent: tenderness, CVA tenderness (R), CVA tenderness (L) Neurological exam: Present: alert, oriented X3, normal gait Psychiatric exam: Present: normal affect, normal mood Skin exam: Present: warm, dry, intact, normal color Course Vital Signs 06/19/20 16:35 Temperature 98.2 F Pulse Rate 90 Respiratory 18 Rate Blood Pressure 173/89 O2 Sat by Pulse 96 Oximetry Medical Decision Making - Medical Decision Making Patient is a 60-year-old female with extensive psychiatric history presenting to emergency Department for psychiatric evaluation. Patient well-known to the emergency department for her frequent visits. Physical examination is unremarkable. EPS evaluated the patient and they spoke with the guardian. It appears the patient was feeling poorly at home so she decided to come to the ED. Prior to coming, she contacted the EPS nurse multiple times earlier in the morning. Patient will be discharged. Return parameters discussed the patient was understanding and agreeable. Case discussed with physician. Disposition Clinical Impression: Adjustment reaction of adult life Disposition: HOME SELF-CARE Condition: Stable Instructions (If sedation given, give patient instructions): Gallstones (ED) Additional Instructions: Follow-up with your counselor. Is patient prescribed a controlled substance at d/c from ED?: No Referrals: [facility] [Primary Care Provider] - 1-2 days Time of Disposition: 17:04
== END 2020-06-19 17:17 | disposition home or self-care (01) ==
LOC: EC 16:28
DX: F43.20 Adjustment disorder, unspecified (principal); I11.0 Hypertensive heart disease with heart failure; I50.9 Heart failure, unspecified; J44.9 Chronic obstructive pulmonary disease, unspecified; M19.90 Unspecified osteoarthritis, unspecified site; G89.29 Other chronic pain; M54.5 Low back pain; K21.9 Gastro-esophageal reflux disease without esophagitis; E03.9 Hypothyroidism, unspecified; G25.81 Restless legs syndrome; M10.9 Gout, unspecified; F41.9 Anxiety disorder, unspecified; F31.9 Bipolar disorder, unspecified; F43.10 Post-traumatic stress disorder, unspecified; Z79.899 Other long term (current) drug therapy; Z79.890 Hormone replacement therapy; Z88.8 Allergy status to other drugs, medicaments and biological substances; Z91.048 Other nonmedicinal substance allergy status; Z88.0 Allergy status to penicillin; Z88.2 Allergy status to sulfonamides; Z88.7 Allergy status to serum and vaccine; Z86.711 Personal history of pulmonary embolism; Z96.651 Presence of right artificial knee joint
CPT/HCPCS: 99285

== ENCOUNTER 2020-06-20 16:03 | Emergency (ER) | payer MEDICARE, OTHER ==
--- NOTE | 2020-06-20 16:33 | ED ---
General Adult HPI - General Source: patient, RN notes reviewed Limitations: no limitations <Canelo Lane - Last Filed: 06/20/20 19:57> <Susanne Allen - Last Filed: 06/21/20 02:31> <Galdino Jean Baptiste - Last Filed: 06/22/20 14:33> <Papa Alexander D - Last Filed: 06/24/20 15:00> - General Stated complaint: Overdose Time Seen by Provider: 06/20/20 16:06 - History of Present Illness Initial comments: Patient is a pleasant 60-year-old female presenting to the emergency department following taking overdose of her medications. Patient states she took these a proximally an hour prior to arrival. Patient does have history of depression and suicidal ideation. Patient states she took maybe 40-45 of her prescription pills including melatonin and Cymbalta and Seroquel. Sensation states she feels drowsy otherwise has no complaints. (Canelo Lane) - Related Data Home Medications Medication Instructions Recorded Confirmed Carvedilol [Coreg] 25 mg PO BID 06/07/17 06/20/20 Levothyroxine Sodium [Synthroid] 137 mcg PO DAILY 10/20/17 06/20/20 Montelukast [Singulair] 10 mg PO DAILY 06/28/18 06/20/20 DULoxetine HCL [Cymbalta] 60 mg PO BID 08/15/18 06/20/20 rOPINIRole HCL [Requip] 4 mg PO BID 11/18/18 06/20/20 Torsemide [Demadex] 50 mg PO SUTUTHSA 12/15/18 06/20/20 Torsemide [Demadex] 100 mg PO MOWEFR 12/15/18 06/20/20 Acetaminophen [Tylenol 8 Hour] 650 mg PO TID 08/14/19 06/20/20 Loratadine [Claritin] 10 mg PO DAILY 08/14/19 06/20/20 Magnesium Oxide [Mag-Ox] 400 mg PO DAILY 08/14/19 06/20/20 Multivitamins, Thera [Multivitamin 1 tab PO DAILY 08/14/19 06/20/20 (formulary)] Omeprazole 20 mg PO DAILY 08/14/19 06/20/20 allopurinoL [Zyloprim] 100 mg PO DAILY 08/14/19 06/20/20 Ferrous Gluconate 324 mg PO BID 01/19/20 06/20/20 Gabapentin [Neurontin] 400 mg PO TID 01/19/20 06/20/20 Melatonin 10 mg PO HS 01/19/20 06/20/20 Diclofenac Sodium [Voltaren Gel] 4 gram TOPICAL QID PRN 04/03/20 06/20/20 Potassium Chloride ER [K-Dur 10] 10 meq PO DAILY 04/03/20 06/20/20 Cholecalciferol [Vitamin D3 (25 5,000 unit PO DAILY 04/28/20 06/20/20 Mcg = 1000 Iu)] QUEtiapine [SEROquel] 25 mg PO TID 05/12/20 06/20/20 Sennosides/Docusate Sodium [Senna 2 tab PO HS 05/12/20 06/20/20 Plus 8.6-50 mg Tablet] lamoTRIgine [LaMICtal] 200 mg PO DAILY 05/12/20 06/20/20 traMADol HCL 50 mg PO Q8H PRN 05/12/20 06/20/20 L.acidoph,Paracasei, B.lactis 1 cap PO DAILY 06/02/20 06/20/20 [Probiotic] Loperamide [Imodium] 2 mg PO DAILY PRN 06/02/20 06/20/20 Paliperidone IM [Invega Sustenna] 156 mg IM Q28D 06/13/20 06/20/20 Paliperidone IM [Invega Sustenna] 156 mg IM DIRECTED 06/20/20 06/20/20 Meloxicam [Mobic] 7.5 mg PO DAILY 06/21/20 06/21/20 Previous Rx's Medication Instructions Recorded Nystatin 100,000 Unit/gm Powd 1 applic TOPICAL BID 7 Days #15 gm 10/14/19 [Mycostatin Powder] Allergies Allergy/AdvReac Type Severity Reaction Status Date / Time buspirone [From BuSpar] Allergy Rash/Hives Verified 06/20/20 22:56 haloperidol [From Haldol] Allergy Swelling Verified 06/20/20 22:56 hydroxyzine [From Vistaril] Allergy Rash/Hives Verified 06/20/20 22:56 iodine Allergy Swelling Verified 06/20/20 22:56 Penicillins Allergy Swelling Verified 06/20/20 22:56 prochlorperazine Allergy Rash/Hives Verified 06/20/20 22:56 Sulfa (Sulfonamide Allergy Rash/Hives Verified 06/20/20 22:56 Antibiotics) Tetanus Vaccines and Toxoid Allergy Rash/Hives Verified 06/20/20 22:56 [Tetanus Vaccines & Toxoid] trifluoperazine HCl Allergy Unknown Verified 06/20/20 22:56 [From Stelazine] Review of Systems ROS Other: All systems not noted in ROS Statement are negative. Constitutional: Denies: fever Eyes: Denies: eye pain ENT: Denies: ear pain Respiratory: Denies: cough Cardiovascular: Denies: chest pain Gastrointestinal: Denies: abdominal pain Genitourinary: Denies: dysuria Musculoskeletal: Denies: back pain Skin: Denies: rash Neurological: Denies: weakness <Canelo Lane - Last Filed: 06/20/20 19:57> ROS Other: All systems not noted in ROS Statement are negative. <Susanne Allen - Last Filed: 06/21/20 02:31> ROS Other: All systems not noted in ROS Statement are negative. <Galdino Jean Baptiste - Last Filed: 06/22/20 14:33> ROS Other: All systems not noted in ROS Statement are negative. <Papa Alexander - Last Filed: 06/24/20 15:00> ROS Statement: Those systems with pertinent positive or pertinent negative responses have been documented in the HPI. Past Medical History Past Medical History: Asthma, Heart Failure, COPD, Diabetes Mellitus, GERD/Reflux, Hyperlipidemia, Hypertension, Musculoskeletal Disorder, Osteoarthritis (OA), Pneumonia, Pulmonary Embolus (PE), Thyroid Disorder Additional Past Medical History / Comment(s): chronic low back pain, herniated discs, RLS, leg edema, anemia, gout bilateral feet, hypothyroid, UTIs, hx cellulitis, cataracts, macular degeneration History of Any Multi-Drug Resistant Organisms: None Reported Past Surgical History: Bariatric Surgery, Heart Catheterization, Hernia Repair, Orthopedic Surgery Additional Past Surgical History / Comment(s): Total Right knee replacement, 3 abdominal hernia repairs, left hip repair d/t fracture, gastric bypass/revision, colonoscopy. Past Anesthesia/Blood Transfusion Reactions: No Reported Reaction Past Psychological History: Anxiety, Bipolar, Depression, Panic Disorder, PTSD Smoking Status: Never smoker Past Alcohol Use History: Occasional Past Drug Use History: None Reported - Past Family History Mother Family Medical History: Cancer Additional Family Medical History / Comment(s): lung cancer Father Family Medical History: Diabetes Mellitus Additional Family Medical History / Comment(s): "my dad from a blood clot that traveled from his leg to his lung and also caused a heart attack." Brother(s) Family Medical History: Diabetes Mellitus Sister(s) Additional Family Medical History / Comment(s): "her heart races too fast" <Canelo Lane - Last Filed: 06/20/20 19:57> General Exam Limitations: no limitations General appearance: alert, in no apparent distress Head exam: Present: normocephalic Eye exam: Present: normal appearance, PERRL ENT exam: Present: normal oropharynx Neck exam: Present: normal inspection Respiratory exam: Present: normal lung sounds bilaterally Cardiovascular Exam: Present: regular rate, normal rhythm GI/Abdominal exam: Present: soft. Absent: tenderness Extremities exam: Present: normal inspection Neurological exam: Present: alert, oriented X3. Absent: motor sensory deficit Psychiatric exam: Present: normal affect, normal mood Skin exam: Present: normal color <Canelo Lane - Last Filed: 06/20/20 19:57> Course <Canelo Lane - Last Filed: 06/20/20 19:57> <Papa Alexander - Last Filed: 06/24/20 15:00> Vital Signs 06/20/20 06/20/20 06/20/20 16:05 17:58 18:50 Temperature 98.6 F Pulse Rate 74 63 63 Respiratory 20 20 17 Rate Blood Pressure 131/74 100/50 93/54 O2 Sat by Pulse 96 96 Oximetry 06/20/20 06/20/20 06/20/20 18:52 19:00 19:10 Temperature Pulse Rate 69 63 64 Respiratory 20 16 16 Rate Blood Pressure 111/67 111/67 96/60 O2 Sat by Pulse 97 96 94 L Oximetry 06/20/20 06/20/20 06/20/20 19:20 19:30 22:13 Temperature Pulse Rate 66 66 75 Respiratory 15 16 18 Rate Blood Pressure 96/60 97/57 115/69 O2 Sat by Pulse 95 96 98 Oximetry 06/20/20 06/21/20 06/21/20 22:19 01:00 06:50 Temperature 98.7 F Pulse Rate 75 72 77 Respiratory 19 20 18 Rate Blood Pressure 118/59 108/67 130/58 O2 Sat by Pulse 95 99 Oximetry 06/21/20 06/21/20 06/22/20 12:43 21:26 09:38 Temperature 98.9 F Pulse Rate 82 85 100 Respiratory 18 18 18 Rate Blood Pressure 139/67 165/82 134/70 O2 Sat by Pulse 98 97 98 Oximetry 06/22/20 17:00 Temperature 98.3 F Pulse Rate 79 Respiratory 18 Rate Blood Pressure 147/74 O2 Sat by Pulse 98 Oximetry - Reevaluation(s) Reevaluation #1: 06/20/20 19:15 EKG #2 No sinus rhythm 65. ID 144. QRS 100. QT 436. QTc 453. Normal axis. Normal QRS. No acute ST change. 06/20/20 19:57 Patient evaluated resting comfortably in bed. Patient states she only took one of her iron pills as normally directed. (Canelo Lane) 06/21/20 20:45 Patient reevaluated at 8:45 PM. Patient resting comfortably at bedside. (Papa Dickerson) EKG Findings - EKG Comments: EKG Findings:: Normal sinus rhythm 68. ID 142. QRS 98. QT or 26. QTc 452. Normal axis. Normal QRS. No acute ST change. <Canelo Lane - Last Filed: 06/20/20 19:57> Medical Decision Making - Lab Data Result diagrams: 06/20/20 16:48 06/20/20 16:48 <Canelo Lane - Last Filed: 06/20/20 19:57> - Lab Data Result diagrams: 06/20/20 16:48 06/20/20 16:48 <Susanne Allen - Last Filed: 06/21/20 02:31> - Lab Data Result diagrams: 06/20/20 16:48 06/20/20 16:48 <Galdino Jean Baptiste - Last Filed: 06/22/20 14:33> - Lab Data Result diagrams: 06/20/20 16:48 06/20/20 16:48 <Papa Alexander - Last Filed: 06/24/20 15:00> - Medical Decision Making Patient is pending placement in a psychiatric hospital. I completed a psychiatric certification. Patient woke around 2am agitated, screaming at staff, requesting medications to help her calm down, PO ativan ordered. (Susanne Allen) Patient had chest pain that lasted less than a minute and EKG was done and showed normal sinus rhythm at 76 bpm ID interval is on a 36 QRS is 92 QT interval 374 QTC is 420. Patient's EKG shows no ST segment elevation or dep ression. Patient's chest pain-free at this time. (Galdino Jean Baptiste) Patient care was signed out to me. Patient's currently boarding in the emergency room. Patient is not amenable for inpatient psychiatry due to her body habitus. She's been very disruptive during her ER boarding. She is required with doses of sedation. Patient care signed out to oncoming physician for follow-up of final disposition. At time of signout patient was calm, resting comfortably at bedside. She was transferred to inpatient psychiatry unit. (Papa Alexander) - Lab Data Lab Results 06/20/20 06/20/20 06/20/20 Range/Units 16:48 16:48 16:48 WBC 7.6 (3.8-10.6) k/uL RBC 3.98 (3.80-5.40) m/uL Hgb 11.6 (11.4-16.0) gm/dL Hct 36.2 (34.0-46.0) % MCV 91.1 (80.0-100.0) fL MCH 29.2 (25.0-35.0) pg MCHC 32.1 (31.0-37.0) g/dL RDW 14.2 (11.5-15.5) % Plt Count 293 (150-450) k/uL Neutrophils % 70 % Lymphocytes % 20 % Monocytes % 6 % Eosinophils % 1 % Basophils % 0 % Neutrophils # 5.3 (1.3-7.7) k/uL Lymphocytes # 1.5 (1.0-4.8) k/uL Monocytes # 0.4 (0-1.0) k/uL Eosinophils # 0.1 (0-0.7) k/uL Basophils # 0.0 (0-0.2) k/uL Sodium 136 L (137-145) mmol/L Potassium 5.0 (3.5-5.1) mmol/L Chloride 100 (98-107) mmol/L Carbon Dioxide 27 (22-30) mmol/L Anion Gap 9 mmol/L BUN 33 H (7-17) mg/dL Creatinine 1.02 (0.52-1.04) mg/dL Est GFR (CKD-EPI)AfAm 70 (>60 ml/min/1.73 sqM) Est GFR (CKD-EPI)NonAf 61 (>60 ml/min/1.73 sqM) Glucose 111 H (74-99) mg/dL Calcium 9.4 (8.4-10.2) mg/dL Magnesium 2.0 (1.6-2.3) mg/dL Iron (50-170) ug/dL TIBC (228-460) ug/dL % Saturation (12.00-45.00) Total Bilirubin 0.6 (0.2-1.3) mg/dL AST 39 H (14-36) U/L ALT 18 (4-34) U/L Alkaline Phosphatase 85 (38-126) U/L NT-Pro-B Natriuret Pep pg/mL Total Protein 7.1 (6.3-8.2) g/dL Albumin 4.1 (3.5-5.0) g/dL Salicylates <1.0 mg/dL Urine Opiates Screen Not Detected (NotDetected) Ur Oxycodone Screen Not Detected (NotDetected) Urine Methadone Screen Not Detected (NotDetected) Ur Propoxyphene Screen Not Detected (NotDetected) Acetaminophen 18.4 ug/mL Ur Barbiturates Screen Not Detected (NotDetected) U Tricyclic Antidepress Not Detected (NotDetected) Ur Phencyclidine Scrn Not Detected (NotDetected) Ur Amphetamines Screen Not Detected (NotDetected) U Methamphetamines Scrn Not Detected (NotDetected) U Benzodiazepines Scrn Detected H (NotDetected) Urine Cocaine Screen Not Detected (NotDetected) U Marijuana (THC) Screen Not Detected (NotDetected) Serum Alcohol <10 mg/dL 06/20/20 06/20/20 Range/Units 18:18 18:40 WBC (3.8-10.6) k/uL RBC (3.80-5.40) m/uL Hgb (11.4-16.0) gm/dL Hct (34.0-46.0) % MCV (80.0-100.0) fL MCH (25.0-35.0) pg MCHC (31.0-37.0) g/dL RDW (11.5-15.5) % Plt Count (150-450) k/uL Neutrophils % % Lymphocytes % % Monocytes % % Eosinophils % % Basophils % % Neutrophils # (1.3-7.7) k/uL Lymphocytes # (1.0-4.8) k/uL Monocytes # (0-1.0) k/uL Eosinophils # (0-0.7) k/uL Basophils # (0-0.2) k/uL Sodium (137-145) mmol/L Potassium (3.5-5.1) mmol/L Chloride (98-107) mmol/L Carbon Dioxide (22-30) mmol/L Anion Gap mmol/L BUN (7-17) mg/dL Creatinine (0.52-1.04) mg/dL Est GFR (CKD-EPI)AfAm (>60 ml/min/1.73 sqM) Est GFR (CKD-EPI)NonAf (>60 ml/min/1.73 sqM) Glucose (74-99) mg/dL Calcium (8.4-10.2) mg/dL Magnesium (1.6-2.3) mg/dL Iron 78 (50-170) ug/dL TIBC 278 (228-460) ug/dL % Saturation 28.06 (12.00-45.00) Total Bilirubin (0.2-1.3) mg/dL AST (14-36) U/L ALT (4-34) U/L Alkaline Phosphatase (38-126) U/L NT-Pro-B Natriuret Pep 232 pg/mL Total Protein (6.3-8.2) g/dL Albumin (3.5-5.0) g/dL Salicylates mg/dL Urine Opiates Screen (NotDetected) Ur Oxycodone Screen (NotDetected) Urine Methadone Screen (NotDetected) Ur Propoxyphene Screen (NotDetected) Acetaminophen <10.0 ug/mL Ur Barbiturates Screen (NotDetected) U Tricyclic Antidepress (NotDetected) Ur Phencyclidine Scrn (NotDetected) Ur Amphetamines Screen (NotDetected) U Methamphetamines Scrn (NotDetected) U Benzodiazepines Scrn (NotDetected) Urine Cocaine Screen (NotDetected) U Marijuana (THC) Screen (NotDetected) Serum Alcohol mg/dL Disposition <Canelo Lane - Last Filed: 06/20/20 19:57> <Susanne Allen - Last Filed: 06/21/20 02:31> <Galdino Jean Baptiste - Last Filed: 06/22/20 14:33> Time of Disposition: 15:00 <Papa Alexander - Last Filed: 06/24/20 15:00> Clinical Impression: Suicidal behavior Disposition: TRANSFER TO PSYCH HOSP/UNIT Condition: Fair Referrals: [facility] [Primary Care Provider] - 1-2 days
[2020-06-20 17:07] LABS: Basophils % (A) 0 %; Eosinophils # (A) 0.1 k/uL (0-0.7); Eosinophils % (A) 1 %; HCT 36.2 % (34.0-46.0); HGB 11.6 gm/dL (11.4-16.0); Lymphocytes # (A) 1.5 k/uL (1.0-4.8); Lymphocytes % (A) 20 %; MCH 29.2 pg (25.0-35.0); MCHC 32.1 g/dL (31.0-37.0); MCV 91.1 fL (80.0-100.0); Mean Platelet Volume 8.2; Monocytes # (A) 0.4 k/uL (0-1.0); Monocytes % (A) 6 %; Neutrophils # (A) 5.3 k/uL (1.3-7.7); Neutrophils % (A) 70 %; Platelet Count 293 k/uL (150-450); RBC 3.98 m/uL (3.80-5.40); RDW 14.2 % (11.5-15.5); WBC 7.6 k/uL (3.8-10.6)
[2020-06-20 17:19] LABS: Amphetamine Screen,Urine Not Detected (NotDetected); Barbiturate Screen,Urine Not Detected (NotDetected); Benzodiazepines Screen,Urine Detected (NotDetected); Cocaine Screen,Urine Not Detected (NotDetected); Methadone Screen, Urine Not Detected (NotDetected); Opiate Screen,Urine Not Detected (NotDetected); Oxycodone Screen, Urine Not Detected (NotDetected); Phencyclidine Screen,Urine Not Detected (NotDetected); Tricyclic Antidepressant,Urine Not Detected (NotDetected); Urn Cannabinoid Scrn Not Detected (NotDetected)
[2020-06-20 17:24] LABS: ALT 18 U/L (4-34); AST 39 U/L (14-36); Acetaminophen 18.4 ug/mL; African American GFR (CKD) 70 (>60 ml/min/1.73 sqM); Albumin 4.1 g/dL (3.5-5.0); Alcohol <10 mg/dL; Alkaline Phosphatase 85 U/L (38-126); Anion Gap 9 mmol/L; Blood Urea Nitrogen 33 mg/dL (7-17); Calcium 9.4 mg/dL (8.4-10.2); Carbon Dioxide 27 mmol/L (22-30); Chloride 100 mmol/L (98-107); Glucose 111 mg/dL (74-99); Non-African American GFR(CKD) 61 (>60 ml/min/1.73 sqM); Salicylate <1.0 mg/dL; Sodium 136 mmol/L (137-145); Total Bilirubin 0.6 mg/dL (0.2-1.3); Total Protein 7.1 g/dL (6.3-8.2)
[2020-06-20 19:04] LABS: Acetaminophen <10.0 ug/mL
[2020-06-20] MEDS ORDERED: SODIUM CHLORIDE 0.9% 500 ML 500 ML IV STA (19:30)
[2020-06-21] MEDS: LORazepam 1 MG TAB PO STA ×2 (02:45→02:48)
[2020-06-21 02:47] LABS: % Iron Saturation 28.06 (12.00-45.00); Iron 78 ug/dL (50-170); Total Iron Binding Capacity 278 ug/dL (228-460)
[2020-06-21] MEDS ORDERED: LORazepam 1 MG TAB PO STA ×2 (05:13→11:58)
[2020-06-21 06:56] VITALS: RESP 18
[2020-06-21] MEDS: GABAPENTIN 400 MG CAP PO SCH ×2 (12:44→16:29)
[2020-06-21] MEDS: PANTOPRAZOLE 40 MG TABLET PO SCH (12:44)
[2020-06-21] MEDS: LORATADINE 10 MG TAB PO SCH (12:45)
[2020-06-21] MEDS: DULoxetine HCL 60 MG CAPSULE.DR PO SCH ×2 (12:45→21:25)
[2020-06-21] MEDS: carvediloL 12.5 MG TAB PO SCH ×2 (12:45→21:24)
[2020-06-21] MEDS ORDERED: LORazepam 2 MG/ML INJ IV STA (13:03)
[2020-06-21] MEDS: LEVOTHYROXINE 137 MCG TAB PO SCH (13:07)
[2020-06-21] MEDS ORDERED: ZIPRASIDONE 20 MG VIAL IM STA (16:07)
[2020-06-21] MEDS: rOPINIRole HCL 4 MG TABLET PO SCH ×2 (16:29→19:46)
[2020-06-21] MEDS ORDERED: MIDAZOLAM 1 MG/ML 5 ML VIAL IM STA (17:22)
[2020-06-22] MEDS: rOPINIRole HCL 4 MG TABLET PO SCH ×2 (00:48→10:35)
[2020-06-22] MEDS: GABAPENTIN 400 MG CAP PO SCH ×2 (00:56→10:00)
[2020-06-22] MEDS ORDERED: LORazepam 1 MG TAB PO STA (01:14)
[2020-06-22] MEDS ORDERED: ZIPRASIDONE 20 MG VIAL IM STA (02:39)
[2020-06-22] MEDS ORDERED: traMADol 50 MG TAB PO STA (06:15)
[2020-06-22] MEDS: LEVOTHYROXINE 137 MCG TAB PO SCH (06:28)
[2020-06-22] MEDS ORDERED: carvediloL 12.5 MG TAB PO STA (09:42)
[2020-06-22] MEDS ORDERED: KETOROLAC 15 MG/ML 1 ML VIAL IVP STA (09:43)
[2020-06-22] MEDS: PANTOPRAZOLE 40 MG TABLET PO SCH (10:00)
[2020-06-22] MEDS: carvediloL 12.5 MG TAB PO SCH (10:00)
[2020-06-22] MEDS: LORATADINE 10 MG TAB PO SCH (10:00)
[2020-06-22] MEDS: DULoxetine HCL 60 MG CAPSULE.DR PO SCH (10:03)
[2020-06-22] MEDS ORDERED: LORazepam 2 MG/ML INJ IM STA (13:01)
[2020-06-22 19:19] VITALS: BP 147/74; PULSE 79; TEMP 98.3
[2020-06-22] MEDS ORDERED: MELATONIN 3 MG TABLET PO SCH (21:00)
== END 2020-06-22 20:30 ==
LOC: EC 16:03
DX: R45.851 Suicidal ideations (principal); R45.1 Restlessness and agitation; F31.9 Bipolar disorder, unspecified; F41.0 Panic disorder [episodic paroxysmal anxiety]; F43.10 Post-traumatic stress disorder, unspecified; T50.992A Poisoning by other drugs, medicaments and biological substances, intentional self-harm, initial encounter; R07.9 Chest pain, unspecified; I11.0 Hypertensive heart disease with heart failure; I50.9 Heart failure, unspecified; J44.9 Chronic obstructive pulmonary disease, unspecified; K21.9 Gastro-esophageal reflux disease without esophagitis; E78.5 Hyperlipidemia, unspecified; M19.90 Unspecified osteoarthritis, unspecified site; E07.9 Disorder of thyroid, unspecified; E03.9 Hypothyroidism, unspecified; G89.29 Other chronic pain; M54.5 Low back pain; G25.81 Restless legs syndrome; M10.9 Gout, unspecified; Z79.1 Long term (current) use of non-steroidal anti-inflammatories (NSAID); Z79.899 Other long term (current) drug therapy; Z88.8 Allergy status to other drugs, medicaments and biological substances; Z88.0 Allergy status to penicillin; Z88.2 Allergy status to sulfonamides; Z88.7 Allergy status to serum and vaccine; Z82.49 Family history of ischemic heart disease and other diseases of the circulatory system; Z86.711 Personal history of pulmonary embolism; Z96.651 Presence of right artificial knee joint; Z98.84 Bariatric surgery status; Z79.890 Hormone replacement therapy
CPT/HCPCS: 99285; 96374; 96375; 96372 ×3; 82075; 36415; 93005; 83880; 80053; 83540; 83550; 83735; 85025; 80306; 83520; G0480 ×2; J2060 ×2; J3486 ×2; J1885; 80320; 80329

== ENCOUNTER → 2020-07-05 | Outpatient (CLI) | payer MEDICARE, OTHER ==
--- NOTE | 2020-07-05 15:21 | XR ---
EXAMINATION TYPE: XR chest 2V DATE OF EXAM: 07/05/2020 COMPARISON: Prior chest x-ray 06/18/2020 HISTORY: Shortness of breath TECHNIQUE: Frontal and lateral views of the chest are obtained. FINDINGS: Patient is rotated. There is no focal air space opacity, pleural effusion, or pneumothorax seen. The cardiac silhouette size is within normal limits. The osseous structures are intact. IMPRESSION: No acute cardiopulmonary process.
== END | disposition home or self-care (01) ==
LOC: RADFLMAIN 15:10
PROVIDERS: ATTEND Surgery
DX: I26.99 Other pulmonary embolism without acute cor pulmonale (principal)
CPT/HCPCS: 71046

== ENCOUNTER 2020-07-06 12:49 | Emergency (ER) | payer MEDICARE, OTHER ==
[2020-07-06 13:30] VITALS: BP 150/85; PULSE 89; TEMP 98.5
[2020-07-06] MEDS ORDERED: MORPHINE SULFATE 2 MG/ML SYRINGE IM STA (14:03)
--- NOTE | 2020-07-06 15:14 | XR ---
Left knee HISTORY: Pain 4 views of the left knee correlated to prior exam 04/05/2020 Appear osteophytic changes are stable. Soft tissue calcifications are likely vascular. There may be u nderlying venous stasis disease. There is no evident joint effusion. Mild lateral subluxation of the patella noted on the sunrise view. There is no fracture or dislocation. IMPRESSION: Severe osteoarthritis.
[2020-07-06 15:21] VITALS: RESP 16
--- NOTE | 2020-07-06 15:21 | XR ---
Left femur history: Pain trauma 2 days prior Frontal and lateral views of the left femur submitted on 5 images Postop changes noted to the proximal left femur as on prior CT. Soft tissue calcifications may be due to venous stasis disease or phleboliths. Osteoarthritic change noted in the knee. impression: No fracture or dislocation
--- NOTE | 2020-07-06 15:41 | ED ---
General Adult HPI - General Chief complaint: Fall Stated complaint: Knee/Groin Pain Time Seen by Provider: 07/06/20 13:41 Source: patient, RN notes reviewed, old records reviewed Mode of arrival: ambulatory Limitations: no limitations - History of Present Illness Initial comments: 60-year-old female patient no pertinent past medical history parents ED for evaluation of all. Patient reports that she days ago landing on her left side. Before that she's been having some left femur and knee pain. Has still been ambulatory. Denies hitting her head or her neck. Denies any use of blood thinners. Denies any other acute complaints. Systemic: Pt denies fatigue, fever/chills, rash. Pt denies weakness, night sweats, weight loss. Neuro: Pt denies headache, visual disturbances, syncope or pre-syncope. HEENT: Pt denies ocular discharge or irritation, otalgia, rhinorrhea, pharyngitis or notable lymphadenopathy. Cardiopulmonary: Pt denies chest pain, SOB, heart palpitations, dyspnea on exertion. Abdominal/GI: Pt denies abdominal pain, n/v/d. : Pt denies dysuria, burning w/ urination, frequency/urgency. Denies new onset urinary or bowel incontinence. MSK: Pt denies myalgia, loss of strength or function in extremities. Neuro: Pt denies new onset weakness, paresthesias. - Related Data Home Medications Medication Instructions Recorded Confirmed Carvedilol [Coreg] 25 mg PO BID 06/07/17 06/20/20 Levothyroxine Sodium [Synthroid] 137 mcg PO DAILY 10/20/17 06/20/20 Montelukast [Singulair] 10 mg PO DAILY 06/28/18 06/20/20 DULoxetine HCL [Cymbalta] 60 mg PO BID 08/15/18 06/20/20 rOPINIRole HCL [Requip] 4 mg PO BID 11/18/18 06/20/20 Torsemide [Demadex] 50 mg PO SUTUTHSA 12/15/18 06/20/20 Torsemide [Demadex] 100 mg PO MOWEFR 12/15/18 06/20/20 Acetaminophen [Tylenol 8 Hour] 650 mg PO TID 08/14/19 06/20/20 Loratadine [Claritin] 10 mg PO DAILY 08/14/19 06/20/20 Magnesium Oxide [Mag-Ox] 400 mg PO DAILY 08/14/19 06/20/20 Multivitamins, Thera [Multivitamin 1 tab PO DAILY 08/14/19 06/20/20 (formulary)] Omeprazole 20 mg PO DAILY 08/14/19 06/20/20 allopurinoL [Zyloprim] 100 mg PO DAILY 08/14/19 06/20/20 Ferrous Gluconate 324 mg PO BID 01/19/20 06/20/20 Gabapentin [Neurontin] 400 mg PO TID 01/19/20 06/20/20 Melatonin 10 mg PO HS 01/19/20 06/20/20 Diclofenac Sodium [Voltaren Gel] 4 gram TOPICAL QID PRN 04/03/20 06/20/20 Potassium Chloride ER [K-Dur 10] 10 meq PO DAILY 04/03/20 06/20/20 Cholecalciferol [Vitamin D3 (25 5,000 unit PO DAILY 04/28/20 06/20/20 Mcg = 1000 Iu)] QUEtiapine [SEROquel] 25 mg PO TID 05/12/20 06/20/20 Sennosides/Docusate Sodium [Senna 2 tab PO HS 05/12/20 06/20/20 Plus 8.6-50 mg Tablet] lamoTRIgine [LaMICtal] 200 mg PO DAILY 05/12/20 06/20/20 traMADol HCL 50 mg PO Q8H PRN 05/12/20 06/20/20 L.acidoph,Paracasei, B.lactis 1 cap PO DAILY 06/02/20 06/20/20 [Probiotic] Loperamide [Imodium] 2 mg PO DAILY PRN 06/02/20 06/20/20 Paliperidone IM [Invega Sustenna] 156 mg IM Q28D 06/13/20 06/20/20 Paliperidone IM [Invega Sustenna] 156 mg IM DIRECTED 06/20/20 06/20/20 Meloxicam [Mobic] 7.5 mg PO DAILY 06/21/20 06/21/20 Previous Rx's Medication Instructions Recorded Nystatin 100,000 Unit/gm Powd 1 applic TOPICAL BID 7 Days #15 gm 10/14/19 [Mycostatin Powder] Allergies Allergy/AdvReac Type Severity Reaction Status Date / Time buspirone [From BuSpar] Allergy Rash/Hives Verified 07/06/20 13:31 haloperidol [From Haldol] Allergy Swelling Verified 07/06/20 13:31 hydroxyzine [From Vistaril] Allergy Rash/Hives Verified 07/06/20 13:31 iodine Allergy Swelling Verified 07/06/20 13:31 Penicillins Allergy Swelling Verified 07/06/20 13:31 prochlorperazine Allergy Rash/Hives Verified 07/06/20 13:31 Sulfa (Sulfonamide Allergy Rash/Hives Verified 07/06/20 13:31 Antibiotics) Tetanus Vaccines and Toxoid Allergy Rash/Hives Verified 07/06/20 13:31 [Tetanus Vaccines & Toxoid] trifluoperazine HCl Allergy Unknown Verified 07/06/20 13:31 [From Stelazine] Review of Systems ROS Statement: Those systems with pertinent positive or pertinent negative responses have been documented in the HPI. ROS Other: All systems not noted in ROS Statement are negative. Past Medical History Past Medical History: Asthma, Heart Failure, COPD, Diabetes Mellitus, GERD/Reflux, Hyperlipidemia, Hypertension, Musculoskeletal Disorder, Osteoarthritis (OA), Pneumonia, Pulmonary Embolus (PE), Thyroid Disorder Additional Past Medical History / Comment(s): chronic low back pain, herniated discs, RLS, leg edema, anemia, gout bilateral feet, hypothyroid, UTIs, hx cellulitis, cataracts, macular degeneration History of Any Multi-Drug Resistant Organisms: None Reported Past Surgical History: Bariatric Surgery, Heart Catheterization, Hernia Repair, Orthopedic Surgery Additional Past Surgical History / Comment(s): Total Right knee replacement, 3 abdominal hernia repairs, left hip repair d/t fracture, gastric bypass/revision, colonoscopy. Past Anesthesia/Blood Transfusion Reactions: No Reported Reaction Past Psychological History: Anxiety, Bipolar, Depression, Panic Disorder, PTSD Smoking Status: Never smoker Past Alcohol Use History: Occasional Past Drug Use History: None Reported - Past Family History Mother Family Medical History: Cancer Additional Family Medical History / Comment(s): lung cancer Father Family Medical History: Diabetes Mellitus Additional Family Medical History / Comment(s): "my dad from a blood clot that traveled from his leg to his lung and also caused a heart attack." Brother(s) Family Medical History: Diabetes Mellitus Sister(s) Additional Family Medical History / Comment(s): "her heart races too fast" General Exam - General Exam Comments Initial Comments: Constitutional: NAD, AOX3, Pt has pleasant affect. HEENT: NC/AT, trachea midline, neck supple, no lymphadenopathy. External ears appear normal, without discharge. Mucous membranes moist. Eyes PERRLA, EOM intact. There is no scleral icterus. No pallor noted. Cardiopulmonary: RRR, no murmurs, rubs or gallops, no JVD noted. Lungs CTAB in anterior and posterior bowser. No peripheral edema. Abdominal exam: Abdomen soft and non-distended. Abdomen non-tender to palpation in all 4 quadrants. Bowel sounds active in LLQ. No hepatosplenomegaly. Neuro: CN II-XII grossly intact. No nuchal rigidity. No raccon eyes, no smith sign. MSK: Mild Tenderness to the left anterior knee. Motion intact. Neurovascularly intact. Skin is pink and well-perfused. Limitations: no limitations Course Vital Signs 07/06/20 07/06/20 13:28 15:20 Temperature 98.5 F Pulse Rate 89 Respiratory 20 16 Rate Blood Pressure 150/85 O2 Sat by Pulse 97 Oximetry Medical Decision Making - Medical Decision Making 60-year-old female patient to ED for evaluation of left knee and femur pain after a fall. Denies hitting her head or her neck. Plain films are negative for acute process. Patient does have advanced osteoarthritis of the knee. Patient is ambulatory at home. Will be discharged with outptient follow up and return precautions. Case discussed with Dr. Cortés. Disposition Clinical Impression: Fall, Knee pain Disposition: HOME SELF-CARE Condition: Stable Instructions (If sedation given, give patient instructions): Fall Prevention (ED) Additional Instructions: Follow up with PCP tomorrow. Return to ED with any worsening symptoms. Is patient prescribed a controlled substance at d/c from ED?: No Referrals: [facility] [Primary Care Provider] - 1-2 days
== END 2020-07-06 15:55 | disposition home or self-care (01) ==
LOC: EC 12:49
DX: M17.12 Unilateral primary osteoarthritis, left knee (principal); I11.0 Hypertensive heart disease with heart failure; I50.9 Heart failure, unspecified; J44.9 Chronic obstructive pulmonary disease, unspecified; E03.9 Hypothyroidism, unspecified; G89.29 Other chronic pain; M54.5 Low back pain; K21.9 Gastro-esophageal reflux disease without esophagitis; M10.9 Gout, unspecified; D64.9 Anemia, unspecified; G25.81 Restless legs syndrome; F41.9 Anxiety disorder, unspecified; F43.10 Post-traumatic stress disorder, unspecified; F32.9 Major depressive disorder, single episode, unspecified; Z79.1 Long term (current) use of non-steroidal anti-inflammatories (NSAID); Z79.899 Other long term (current) drug therapy; Z79.890 Hormone replacement therapy; Z88.8 Allergy status to other drugs, medicaments and biological substances; Z91.048 Other nonmedicinal substance allergy status; Z88.0 Allergy status to penicillin; Z88.2 Allergy status to sulfonamides; Z88.7 Allergy status to serum and vaccine; Z86.711 Personal history of pulmonary embolism; Z96.651 Presence of right artificial knee joint
CPT/HCPCS: 99284 ×2; 96372 ×2; 73552; 73564; J2270

== ENCOUNTER → 2020-07-07 | Outpatient (CLI) | payer MEDICARE, OTHER ==
--- NOTE | 2020-07-07 10:06 | XR ---
EXAMINATION TYPE: XR chest 2V DATE OF EXAM: 07/05/2020 COMPARISON: NONE TECHNIQUE: PA and lateral views submitted. HISTORY: Shortness of breath FINDINGS: The lungs are clear and there is no pneumothorax, pleural effusion, or focal pneumonia. Interstitiu m stable. Mild prominence of the left heart border. IMPRESSION: 1. Coarsened interstitium correlate for chronic interstitial lung disease or venous congestion. There is lobulated density along the left heart border for which CT chest is recommended. Could be related to atrial enlargement. Underlying mass not excluded.
--- NOTE | 2020-07-07 10:08 | NM ---
EXAMINATION TYPE: NM pul vent and perfuse DATE OF EXAM: 07/07/2020 COMPARISON: 07/07/2020 HISTORY: Shortness of breath TECHNIQUE: Utilizing inhalation of 66.5 mCi Tc 99m DTPA aerosol and intravenous injection of 5.3 mCi of Tc 99m MAA, ventilation and perfusion images are acquired post injection in multiple projections. FINDINGS: There is a matched defects involving the upper lobe on the right. Reduced ventilation uptake noted. N o sizable mismatched defects are seen. Peripheral matched defect involving the left lung noted. IMPRESSION: Intermediate probability for pulmonary embolism.
== END | disposition home or self-care (01) ==
LOC: RADNMMAIN 07-05 14:36
PROVIDERS: ATTEND Surgery
DX: I26.99 Other pulmonary embolism without acute cor pulmonale (principal)
CPT/HCPCS: 71046 ×2; 78582; A9540; A9567

== ENCOUNTER 2020-07-10 15:09 | Emergency (ER) | payer MEDICARE, OTHER ==
[2020-07-10 15:20] VITALS: TEMP 97.9
[2020-07-10] MEDS ORDERED: ASPIRIN 81 MG PO STA (15:20)
[2020-07-10 15:55] LABS: Basophils # (A) 0.1 k/uL (0-0.2); Basophils % (A) 1 %; Eosinophils # (A) 0.1 k/uL (0-0.7); Eosinophils % (A) 2 %; HCT 34.6 % (34.0-46.0); HGB 11.3 gm/dL (11.4-16.0); Lymphocytes # (A) 1.5 k/uL (1.0-4.8); Lymphocytes % (A) 22 %; MCH 29.2 pg (25.0-35.0); MCHC 32.8 g/dL (31.0-37.0); MCV 88.8 fL (80.0-100.0); Mean Platelet Volume 7.4; Monocytes # (A) 0.3 k/uL (0-1.0); Monocytes % (A) 5 %; Neutrophils # (A) 4.5 k/uL (1.3-7.7); Neutrophils % (A) 67 %; Platelet Count 279 k/uL (150-450); RBC 3.89 m/uL (3.80-5.40); RDW 14.8 % (11.5-15.5); WBC 6.7 k/uL (3.8-10.6)
[2020-07-10] MEDS ORDERED: MORPHINE SULFATE 2 MG/ML SYRINGE IVP STA (15:58)
[2020-07-10 16:03] LABS: Albumin 3.5 g/dL (3.5-5.0); Calcium 8.8 mg/dL (8.4-10.2); Magnesium 1.5 mg/dL (1.6-2.3); Potassium 4.1 mmol/L (3.5-5.1); Total Bilirubin 0.3 mg/dL (0.2-1.3); Total Protein 6.2 g/dL (6.3-8.2)
[2020-07-10 16:15] LABS: INR 0.9 (<1.2); Partial Thromboplastin Time 23.7 sec (22.0-30.0); Prothrombin Time 9.3 sec (9.0-12.0)
--- NOTE | 2020-07-10 16:19 | XR ---
EXAMINATION TYPE: XR chest 2V DATE OF EXAM: 07/10/2020 COMPARISON: 07/07/2020 HISTORY: Chest pain TECHNIQUE: FINDINGS: There is no heart failure nor confluent pneumonic infiltrate. There is poor inspiration. Th ere are no hilar masses. Costophrenic angles are clear. IMPRESSION: Poor inspiration similar to old exam. No acute lung disease. Normal heart.
[2020-07-10 16:21] LABS: D-Dimer 1.95 mg/L FEU (<0.60)
[2020-07-10] MEDS ORDERED: methylPREDNISolone SOD SUCCI 125 MG/2 ML VIAL IV STA (16:28)
[2020-07-10] MEDS ORDERED: diphenhydrAMINE 50 MG/ML 1 ML VIAL IVP STA (16:28)
[2020-07-10] MEDS ORDERED: FAMOTIDINE 20 MG/2 ML VIAL IV STA (16:28)
--- NOTE | 2020-07-10 17:23 | CT ---
EXAMINATION TYPE: CT chest angio for PE DATE OF EXAM: 07/10/2020 COMPARISON: HISTORY: difficulty breathing CT DLP: 875.6 mGycm Automated exposure control for dose reduction was used. CONTRAST: Performed with IV Contrast, patient injected with 100 mL of Isovue 370. There are 3-D post processed images. Heart and mediastinum are shifted somewhat to the left side. Thoracic aorta is intact. There is no si gn of aneurysm or dissection. Heart is enlarged. There is no pericardial effusion. There is no pleura l effusion. The lungs are clear of consolidation. There is no evidence of a pulmonary mass. There is no evidence of mediastinal adenopathy. There are no hilar masses. There is normal contrast opacification of the pulmonary arteries. There are no filling defects. There are large central pulmonary arteries. The bony thorax is intact. There is spurring in the thoracic spine. IMPRESSION: No evidence of pulmonary embolism. Cardiomegaly. No evidence of acute lung disease. There is probably some pulmonary hypertension.
--- NOTE | 2020-07-10 18:15 | ED ---
Chest Pain HPI - General Chief Complaint: Chest Pain Stated Complaint: chest pain Time Seen by Provider: 07/10/20 15:20 Source: patient, EMS Limitations: no limitations - History of Present Illness Initial Comments: 60-year-old female presents today for chief complaint of chest discomfort 3 hours. She states that she has had a sharp chest pain that is at times a pressure on and off for 3 hours. She states is starting to get better. She states she has some slight shortness of breath. When inquired about leg swelling she states she maybe feels that her left leg is slightly increased in size from her right but is hard to tell. Patient denies any redness of the lower extremities she denies hemoptysis. Patient denies URI symptoms or fevers. Patient denies anticoagulation use, admits to previous DVT hx. Patient denies diaphoresis jaw pain and arm pain denies pain on exertion. Patient denies additional complaints upon arrival patient appears nontoxic in no acute dist ress. - Related Data Home Medications Medication Instructions Recorded Confirmed Carvedilol [Coreg] 25 mg PO BID 06/07/17 06/20/20 Levothyroxine Sodium [Synthroid] 137 mcg PO DAILY 10/20/17 06/20/20 Montelukast [Singulair] 10 mg PO DAILY 06/28/18 06/20/20 DULoxetine HCL [Cymbalta] 60 mg PO BID 08/15/18 06/20/20 rOPINIRole HCL [Requip] 4 mg PO BID 11/18/18 06/20/20 Torsemide [Demadex] 50 mg PO SUTUTHSA 12/15/18 06/20/20 Torsemide [Demadex] 100 mg PO MOWEFR 12/15/18 06/20/20 Acetaminophen [Tylenol 8 Hour] 650 mg PO TID 08/14/19 06/20/20 Loratadine [Claritin] 10 mg PO DAILY 08/14/19 06/20/20 Magnesium Oxide [Mag-Ox] 400 mg PO DAILY 08/14/19 06/20/20 Multivitamins, Thera [Multivitamin 1 tab PO DAILY 08/14/19 06/20/20 (formulary)] Omeprazole 20 mg PO DAILY 08/14/19 06/20/20 allopurinoL [Zyloprim] 100 mg PO DAILY 08/14/19 06/20/20 Ferrous Gluconate 324 mg PO BID 01/19/20 06/20/20 Gabapentin [Neurontin] 400 mg PO TID 01/19/20 06/20/20 Melatonin 10 mg PO HS 01/19/20 06/20/20 Diclofenac Sodium [Voltaren Gel] 4 gram TOPICAL QID PRN 04/03/20 06/20/20 Potassium Chloride ER [K-Dur 10] 10 meq PO DAILY 04/03/20 06/20/20 Cholecalciferol [Vitamin D3 (25 5,000 unit PO DAILY 04/28/20 06/20/20 Mcg = 1000 Iu)] QUEtiapine [SEROquel] 25 mg PO TID 05/12/20 06/20/20 Sennosides/Docusate Sodium [Senna 2 tab PO HS 05/12/20 06/20/20 Plus 8.6-50 mg Tablet] lamoTRIgine [LaMICtal] 200 mg PO DAILY 05/12/20 06/20/20 traMADol HCL 50 mg PO Q8H PRN 05/12/20 06/20/20 L.acidoph,Paracasei, B.lactis 1 cap PO DAILY 06/02/20 06/20/20 [Probiotic] Loperamide [Imodium] 2 mg PO DAILY PRN 06/02/20 06/20/20 Paliperidone IM [Invega Sustenna] 156 mg IM Q28D 06/13/20 06/20/20 Paliperidone IM [Invega Sustenna] 156 mg IM DIRECTED 06/20/20 06/20/20 Meloxicam [Mobic] 7.5 mg PO DAILY 06/21/20 06/21/20 Previous Rx's Medication Instructions Recorded Nystatin 100,000 Unit/gm Powd 1 applic TOPICAL BID 7 Days #15 gm 10/14/19 [Mycostatin Powder] Allergies Allergy/AdvReac Type Severity Reaction Status Date / Time buspirone [From BuSpar] Allergy Rash/Hives Verified 07/06/20 13:31 haloperidol [From Haldol] Allergy Swelling Verified 07/06/20 13:31 hydroxyzine [From Vistaril] Allergy Rash/Hives Verified 07/06/20 13:31 iodine Allergy Swelling Verified 07/06/20 13:31 Penicillins Allergy Swelling Verified 07/06/20 13:31 prochlorperazine Allergy Rash/Hives Verified 07/06/20 13:31 Sulfa (Sulfonamide Allergy Rash/Hives Verified 07/06/20 13:31 Antibiotics) Tetanus Vaccines and Toxoid Allergy Rash/Hives Verified 07/06/20 13:31 [Tetanus Vaccines & Toxoid] trifluoperazine HCl Allergy Unknown Verified 07/06/20 13:31 [From Stelazine] Review of Systems ROS Statement: Those systems with pertinent positive or pertinent negative responses have been documented in the HPI. ROS Other: All systems not noted in ROS Statement are negative. EKG Findings - EKG Comments: EKG Findings:: Ventricular rate 81 bpm, TN interval 142 ms, QRS duration 92 ms, QT/QTC 372/432ms. No ST elevation or depression Past Medical History Past Medical History: Asthma, Heart Failure, COPD, Diabetes Mellitus, GERD/Reflux, Hyperlipidemia, Hypertension, Musculoskeletal Disorder, Osteoarthritis (OA), Pneumonia, Pulmonary Embolus (PE), Thyroid Disorder Additional Past Medical History / Comment(s): chronic low back pain, herniated discs, RLS, leg edema, anemia, gout bilateral feet, hypothyroid, UTIs, hx cellulitis, cataracts, macular degeneration History of Any Multi-Drug Resistant Organisms: None Reported Past Surgical History: Bariatric Surgery, Heart Catheterization, Hernia Repair, Orthopedic Surgery Additional Past Surgical History / Comment(s): Total Right knee replacement, 3 abdominal hernia repairs, left hip repair d/t fracture, gastric bypass/revision, colonoscopy. Past Anesthesia/Blood Transfusion Reactions: No Reported Reaction Past Psychological History: Anxiety, Bipolar, Depression, Panic Disorder, PTSD Smoking Status: Never smoker Past Alcohol Use History: Occasional Past Drug Use History: None Reported - Past Family History Mother Family Medical History: Cancer Additional Family Medical History / Comment(s): lung cancer Father Family Medical History: Diabetes Mellitus Additional Family Medical History / Comment(s): "my dad from a blood clot that traveled from his leg to his lung and also caused a heart attack." Brother(s) Family Medical History: Diabetes Mellitus Sister(s) Additional Family Medical History / Comment(s): "her heart races too fast" General Exam - General Exam Comments Initial Comments: General: The patient is awake and alert, in no distress, and does not appear acutely ill. Eye: Pupils are equal, round and reactive to light, extra-ocular movements are intact. No nystagmus. There is normal conjunctiva bilaterally. No signs of icterus. Ears, nose, mouth and throat: There are moist mucous membranes and no oral lesions. Neck: The neck is supple, there is no tenderness or JVD. Cardiovascular: There is a regular rate and rhythm. No ub or gallop is appreciated. Murmur on exam. Respiratory: Lungs are clear to auscultation, respirations are non-labored, breath sounds are equal. No wheezes, stridor, rales, or rhonchi. Gastrointestinal: Soft, non-distended, non-tender abdomen without masses or organomegaly noted. There is no rebound or guarding present. Musculoskeletal: Normal ROM, no tenderness. Strength 5/5. Sensation intact. Radial pulses equal bilaterally 2+. Neurological: A&O x 3. CN II-XII intact, There are no obvious motor or sensory deficits. Coordination appears grossly intact. Speech is normal. Skin: Skin is warm and dry and no rashes or lesions are noted. No obvious leg swelling. Psychiatric: Cooperative, appropriate mood & affect, normal judgment. Limitations: no limitations Course Vital Signs 07/10/20 07/10/20 07/10/20 15:15 16:20 17:20 Temperature 97.9 F Pulse Rate 89 72 72 Respiratory 16 18 18 Rate Blood Pressure 126/71 140/78 O2 Sat by Pulse 96 96 Oximetry 07/10/20 18:20 Temperature Pulse Rate 79 Respiratory 18 Rate Blood Pressure 150/82 O2 Sat by Pulse 95 Oximetry Chest Pain MDM - MDM CTA (-) PE. Patient US (-) DVT. Pain resolved. EKG no acute changes. Initial troponin (-) Second troponin (-). No signs of acute HF on CXR. Lungs clear. Patient appears well and at this time I feel she is stable for outpatient fu with return parameters, my attending provider is agreeable to this care plan and discharge. Disposition Clinical Impression: Chest discomfort Disposition: HOME SELF-CARE Condition: Good Instructions (If sedation given, give patient instructions): Chest Pain (ED) Additional Instructions: Please use medication as discussed. Please follow-up with family doctor in the next 2 days. Please return to emergency room if the symptoms increase or worsen or for any other concerns. Is patient prescribed a controlled substance at d/c from ED?: No Referrals: [facility] [place] [Primary Care Provider] - 1-2 days Time of Disposition: 19:25
--- NOTE | 2020-07-10 18:27 | US ---
EXAMINATION TYPE: US venous doppler duplex LE LT DATE OF EXAM: 07/10/2020 6:08 PM COMPARISON: US, CT chest CLINICAL HISTORY: swelling per pt. Chronic left leg swelling greater than right leg per patient SIDE PERFORMED: Left , very large body habitus TECHNIQUE: The lower extremity deep venous system is examined utilizing real time linear array sonog rizwan with graded compression, doppler sonography and color-flow sonography. VESSELS IMAGED: Common Femoral Vein Deep Femoral Vein Greater Saphenous Vein * Femoral Vein: patient was unable to tolerate distal Femoral Vein compression for image. Popliteal Vein Small Saphenous Vein * Proximal Calf Veins (* superficial vessels) Left Leg: Negative for DVT IMPRESSION: Limited exam. No sign of deep vein thrombosis in the left leg.
[2020-07-10 18:48] VITALS: RESP 18
[2020-07-10 18:49] VITALS: BP 150/82; PULSE 79
== END 2020-07-10 19:34 | disposition home or self-care (01) ==
LOC: EC 15:09
DX: R07.89 Other chest pain (principal); R06.02 Shortness of breath; E11.9 Type 2 diabetes mellitus without complications; J44.9 Chronic obstructive pulmonary disease, unspecified; I11.0 Hypertensive heart disease with heart failure; I50.9 Heart failure, unspecified; E78.5 Hyperlipidemia, unspecified; E03.9 Hypothyroidism, unspecified; F31.9 Bipolar disorder, unspecified; K21.9 Gastro-esophageal reflux disease without esophagitis; M19.90 Unspecified osteoarthritis, unspecified site; F41.0 Panic disorder [episodic paroxysmal anxiety]; Z79.02 Long term (current) use of antithrombotics/antiplatelets; Z79.890 Hormone replacement therapy; Z79.51 Long term (current) use of inhaled steroids; Z79.899 Other long term (current) drug therapy; Z79.1 Long term (current) use of non-steroidal anti-inflammatories (NSAID); Z88.0 Allergy status to penicillin; Z91.048 Other nonmedicinal substance allergy status; Z88.8 Allergy status to other drugs, medicaments and biological substances; Z88.2 Allergy status to sulfonamides; Z88.7 Allergy status to serum and vaccine; Z86.711 Personal history of pulmonary embolism; Z96.651 Presence of right artificial knee joint; Z98.84 Bariatric surgery status
CPT/HCPCS: 36415; 93005; 85379; 83880; 80053; 83690; 83735; 84484; 85025; 85610; 85730; 71046; 93971; 71275; 99285; 96374; 96375 ×3; J1200; J2930; J2270; Q9967

== ENCOUNTER 2020-07-14 12:22 | Observation (INO) | payer MEDICARE, OTHER ==
[2020-07-14] MEDS ORDERED: NITROGLYCERIN OINT 1 INCH/GM PACKET TOPICAL STA (13:17)
[2020-07-14] MEDS ORDERED: ASPIRIN 81 MG PO STA (13:17)
--- NOTE | 2020-07-14 13:28 | ED ---
General Adult HPI - General Chief complaint: Chest Pain Stated complaint: SJ, Chest Pain Time Seen by Provider: 07/14/20 12:25 Source: patient, RN notes reviewed, old records reviewed Mode of arrival: ambulatory Limitations: no limitations - History of Present Illness Initial comments: This a 60-year-old female presents emergency Department complaining of chest pain. Patient states she has chest pain is same or chest pain about an hour and a half. Patient states she also has shortness of breath. Patient states she has diabetes hypertension high cholesterol she does denies smoking. Patient denies any lightheadedness or dizziness patient denies any cough or fevers. Patient denies any abdominal pain patient denies nausea vomiting diarrhea. - Related Data Home Medications Medication Instructions Recorded Confirmed Carvedilol [Coreg] 25 mg PO BID 06/07/17 06/20/20 Levothyroxine Sodium [Synthroid] 137 mcg PO DAILY 10/20/17 06/20/20 Montelukast [Singulair] 10 mg PO DAILY 06/28/18 06/20/20 DULoxetine HCL [Cymbalta] 60 mg PO BID 08/15/18 06/20/20 rOPINIRole HCL [Requip] 4 mg PO BID 11/18/18 06/20/20 Torsemide [Demadex] 50 mg PO SUTUTHSA 12/15/18 06/20/20 Torsemide [Demadex] 100 mg PO MOWEFR 12/15/18 06/20/20 Acetaminophen [Tylenol 8 Hour] 650 mg PO TID 08/14/19 06/20/20 Loratadine [Claritin] 10 mg PO DAILY 08/14/19 06/20/20 Magnesium Oxide [Mag-Ox] 400 mg PO DAILY 08/14/19 06/20/20 Multivitamins, Thera [Multivitamin 1 tab PO DAILY 08/14/19 06/20/20 (formulary)] Omeprazole 20 mg PO DAILY 08/14/19 06/20/20 allopurinoL [Zyloprim] 100 mg PO DAILY 08/14/19 06/20/20 Ferrous Gluconate 324 mg PO BID 01/19/20 06/20/20 Gabapentin [Neurontin] 400 mg PO TID 01/19/20 06/20/20 Melatonin 10 mg PO HS 01/19/20 06/20/20 Diclofenac Sodium [Voltaren Gel] 4 gram TOPICAL QID PRN 04/03/20 06/20/20 Potassium Chloride ER [K-Dur 10] 10 meq PO DAILY 04/03/20 06/20/20 Cholecalciferol [Vitamin D3 (25 5,000 unit PO DAILY 04/28/20 06/20/20 Mcg = 1000 Iu)] QUEtiapine [SEROquel] 25 mg PO TID 05/12/20 06/20/20 Sennosides/Docusate Sodium [Senna 2 tab PO HS 05/12/20 06/20/20 Plus 8.6-50 mg Tablet] lamoTRIgine [LaMICtal] 200 mg PO DAILY 05/12/20 06/20/20 traMADol HCL 50 mg PO Q8H PRN 05/12/20 06/20/20 L.acidoph,Paracasei, B.lactis 1 cap PO DAILY 06/02/20 06/20/20 [Probiotic] Loperamide [Imodium] 2 mg PO DAILY PRN 06/02/20 06/20/20 Paliperidone IM [Invega Sustenna] 156 mg IM Q28D 06/13/20 06/20/20 Paliperidone IM [Invega Sustenna] 156 mg IM DIRECTED 06/20/20 06/20/20 Meloxicam [Mobic] 7.5 mg PO DAILY 06/21/20 06/21/20 Previous Rx's Medication Instructions Recorded Nystatin 100,000 Unit/gm Powd 1 applic TOPICAL BID 7 Days #15 gm 10/14/19 [Mycostatin Powder] Allergies Allergy/AdvReac Type Severity Reaction Status Date / Time buspirone [From BuSpar] Allergy Rash/Hives Verified 07/14/20 12:31 haloperidol [From Haldol] Allergy Swelling Verified 07/14/20 12:31 hydroxyzine [From Vistaril] Allergy Rash/Hives Verified 07/14/20 12:31 iodine Allergy Swelling Verified 07/14/20 12:31 Penicillins Allergy Swelling Verified 07/14/20 12:31 prochlorperazine Allergy Rash/Hives Verified 07/14/20 12:31 Sulfa (Sulfonamide Allergy Rash/Hives Verified 07/14/20 12:31 Antibiotics) Tetanus Vaccines and Toxoid Allergy Rash/Hives Verified 07/14/20 12:31 [Tetanus Vaccines & Toxoid] trifluoperazine HCl Allergy Unknown Verified 07/14/20 12:31 [From Stelazine] Review of Systems ROS Statement: Those systems with pertinent positive or pertinent negative responses have been documented in the HPI. ROS Other: All systems not noted in ROS Statement are negative. Past Medical History Past Medical History: Asthma, Heart Failure, COPD, Diabetes Mellitus, GERD/Reflux, Hyperlipidemia, Hypertension, Musculoskeletal Disorder, Osteoarthri tis (OA), Pneumonia, Pulmonary Embolus (PE), Thyroid Disorder Additional Past Medical History / Comment(s): chronic low back pain, herniated discs, RLS, leg edema, anemia, gout bilateral feet, hypothyroid, UTIs, hx cellulitis, cataracts, macular degeneration History of Any Multi-Drug Resistant Organisms: None Reported Past Surgical History: Bariatric Surgery, Heart Catheterization, Hernia Repair, Orthopedic Surgery Additional Past Surgical History / Comment(s): Total Right knee replacement, 3 abdominal hernia repairs, left hip repair d/t fracture, gastric bypass/revision, colonoscopy. Past Anesthesia/Blood Transfusion Reactions: No Reported Reaction Past Psychological History: Anxiety, Bipolar, Depression, Panic Disorder, PTSD Smoking Status: Never smoker Past Alcohol Use History: Occasional Past Drug Use History: None Reported - Past Family History Mother Family Medical History: Cancer Additional Family Medical History / Comment(s): lung cancer Father Family Medical History: Diabetes Mellitus Additional Family Medical History / Comment(s): "my dad from a blood clot that traveled from his leg to his lung and also caused a heart attack." Brother(s) Family Medical History: Diabetes Mellitus Sister(s) Additional Family Medical History / Comment(s): "her heart races too fast" General Exam - General Exam Comments Initial Comments: GENERAL: Patient is well-developed and well-nourished. Patient is nontoxic and well- hydrated and is in no acute distress. ENT: Neck is soft and supple. No significant lymphadenopathy is noted. Oropharynx is clear. Moist mucous membranes. Neck has full range of motion without eliciting any pain. EYES: The sclera were anicteric and conjunctiva were pink and moist. Extraocular movements were intact and pupils were equal round and reactive to light. Eyelids were unremarkable. PULMONARY: Unlabored respirations. Good breath sounds bilaterally. No audible rales rhonchi or wheezing was noted. CARDIOVASCULAR: There is a regular rate and rhythm without any murmurs gallops or rubs. ABDOMEN: Soft and nontender with normal bowel sounds. SKIN: Skin is clear with no lesions or rashes and otherwise unremarkable. NEUROLOGIC: Patient is alert and oriented x3. Cranial nerves II through XII are grossly intact. Motor and sensory are also intact. Normal speech, volume and content. Symmetrical smile. MUSCULOSKELETAL: Normal extremities with adequate strength and full range of motion. No lower extremity swelling or edema. No calf tenderness. LYMPHATICS: No significant lymphadenopathy is noted PSYCHIATRIC: Normal psychiatric evaluation. Limitations: no limitations Course Vital Signs 07/14/20 07/14/20 07/14/20 12:24 13:09 13:30 Temperature 97.3 F L Pulse Rate 105 H 76 79 Respiratory 20 18 15 Rate Blood Pressure 108/67 124/84 124/84 O2 Sat by Pulse 96 100 Oximetry 07/14/20 14:00 Temperature Pulse Rate 80 Respiratory 17 Rate Blood Pressure 131/66 O2 Sat by Pulse 98 Oximetry Medical Decision Making - Medical Decision Making EKG shows normal sinus rhythm at 85 bpm ND interval 234 QRS is 90 QT interval 366 QTC is 435. Patient's EKG shows no ST segment elevation or depression. Chest x-ray shows no acute abnormality. Patient was chest pain-free in the emergency department after nitro and aspirin. I spoke with Dr. Rdz she agreed to admit the patient admitted the patient wrote admitting orders. - Lab Data Result diagrams: 07/14/20 13:32 07/14/20 13:32 Lab Results 07/14/20 07/14/20 07/14/20 Range/Units 13:32 13:32 13:32 WBC 7.5 (3.8-10.6) k/uL RBC 4.02 (3.80-5.40) m/uL Hgb 11.7 (11.4-16.0) gm/dL Hct 35.9 (34.0-46.0) % MCV 89.4 (80.0-100.0) fL MCH 29.2 (25.0-35.0) pg MCHC 32.6 (31.0-37.0) g/dL RDW 15.0 (11.5-15.5) % Plt Count 296 (150-450) k/uL MPV 7.4 Neutrophils % 66 % Lymphocytes % 23 % Monocytes % 5 % Eosinophils % 1 % Basophils % 1 % Neutrophils # 5.0 (1.3-7.7) k/uL Lymphocytes # 1.7 (1.0-4.8) k/uL Monocytes # 0.4 (0-1.0) k/uL Eosinophils # 0.1 (0-0.7) k/uL Basophils # 0.1 (0-0.2) k/uL PT 9.4 (9.0-12.0) sec INR 0.9 (<1.2) APTT 23.3 (22.0-30.0) sec Sodium 140 (137-145) mmol/L Potassium 4.4 (3.5-5.1) mmol/L Chloride 101 (98-107) mmol/L Carbon Dioxide 32 H (22-30) mmol/L Anion Gap 7 mmol/L BUN 35 H (7-17) mg/dL Creatinine 1.06 H (0.52-1.04) mg/dL Est GFR (CKD-EPI)AfAm 67 (>60 ml/min/1.73 sqM) Est GFR (CKD-EPI)NonAf 58 (>60 ml/min/1.73 sqM) Glucose 97 (74-99) mg/dL Calcium 9.2 (8.4-10.2) mg/dL Magnesium 1.8 (1.6-2.3) mg/dL Total Bilirubin 0.4 (0.2-1.3) mg/dL AST 24 (14-36) U/L ALT 16 (4-34) U/L Alkaline Phosphatase 91 (38-126) U/L Troponin I (0.000-0.034) ng/mL NT-Pro-B Natriuret Pep pg/mL Total Protein 6.7 (6.3-8.2) g/dL Albumin 4.0 (3.5-5.0) g/dL 07/14/20 07/14/20 Range/Units 13:32 13:32 WBC (3.8-10.6) k/uL RBC (3.80-5.40) m/uL Hgb (11.4-16.0) gm/dL Hct (34.0-46.0) % MCV (80.0-100.0) fL MCH (25.0-35.0) pg MCHC (31.0-37.0) g/dL RDW (11.5-15.5) % Plt Count (150-450) k/uL MPV Neutrophils % % Lymphocytes % % Monocytes % % Eosinophils % % Basophils % % Neutrophils # (1.3-7.7) k/uL Lymphocytes # (1.0-4.8) k/uL Monocytes # (0-1.0) k/uL Eosinophils # (0-0.7) k/uL Basophils # (0-0.2) k/uL PT (9.0-12.0) sec INR (<1.2) APTT (22.0-30.0) sec Sodium (137-145) mmol/L Potassium (3.5-5.1) mmol/L Chloride (98-107) mmol/L Carbon Dioxide (22-30) mmol/L Anion Gap mmol/L BUN (7-17) mg/dL Creatinine (0.52-1.04) mg/dL Est GFR (CKD-EPI)AfAm (>60 ml/min/1.73 sqM) Est GFR (CKD-EPI)NonAf (>60 ml/min/1.73 sqM) Glucose (74-99) mg/dL Calcium (8.4-10.2) mg/dL Magnesium (1.6-2.3) mg/dL Total Bilirubin (0.2-1.3) mg/dL AST (14-36) U/L ALT (4-34) U/L Alkaline Phosphatase (38-126) U/L Troponin I <0.012 (0.000-0.034) ng/mL NT-Pro-B Natriuret Pep 318 pg/mL Total Protein (6.3-8.2) g/dL Albumin (3.5-5.0) g/dL Disposition Clinical Impression: Chest pain Disposition: ADMITTED IP TO THIS [facility] Referrals: [facility] [Primary Care Provider] - 1-2 days Time of Disposition: 15:14
[2020-07-14 13:58] LABS: Basophils # (A) 0.1 k/uL (0-0.2); Basophils % (A) 1 %; Eosinophils # (A) 0.1 k/uL (0-0.7); Eosinophils % (A) 1 %; HCT 35.9 % (34.0-46.0); HGB 11.7 gm/dL (11.4-16.0); Lymphocytes # (A) 1.7 k/uL (1.0-4.8); Lymphocytes % (A) 23 %; MCH 29.2 pg (25.0-35.0); MCHC 32.6 g/dL (31.0-37.0); MCV 89.4 fL (80.0-100.0); Mean Platelet Volume 7.4; Monocytes # (A) 0.4 k/uL (0-1.0); Monocytes % (A) 5 %; Neutrophils % (A) 66 %; Platelet Count 296 k/uL (150-450); RBC 4.02 m/uL (3.80-5.40); WBC 7.5 k/uL (3.8-10.6)
[2020-07-14 14:03] LABS: INR 0.9 (<1.2); Partial Thromboplastin Time 23.3 sec (22.0-30.0); Prothrombin Time 9.4 sec (9.0-12.0)
--- NOTE | 2020-07-14 14:10 | XR ---
EXAMINATION TYPE: XR chest 2V DATE OF EXAM: 07/14/2020 COMPARISON: 07/10/2020 TECHNIQUE: PA and lateral views submitted. HISTORY: Chest pain FINDINGS: The lungs are clear and there is no pneumothorax, pleural effusion, or focal pneumonia. Coarsened i nterstitium. Heart size normal. Arthropathy of the shoulders. Diffuse osteopenia. IMPRESSION: 1. Coarsened interstitium appears stable from prior exam could be chronic. Correlate clinically to ex clude interstitial pneumonitis or bronchitis.
[2020-07-14 14:15] LABS: Calcium 9.2 mg/dL (8.4-10.2); Magnesium 1.8 mg/dL (1.6-2.3); Potassium 4.4 mmol/L (3.5-5.1); Total Bilirubin 0.4 mg/dL (0.2-1.3); Total Protein 6.7 g/dL (6.3-8.2)
[2020-07-14] MEDS ORDERED: NITROGLYCERIN SL TABS 0.4 MG TAB SUBLINGUAL PRN (15:14)
[2020-07-14 16:35] VITALS: BP 117/78; PULSE 102; RESP 16; TEMP 98.3
[2020-07-14] MEDS ORDERED: DICLOFENAC SODIUM GEL 100 GM TUBE TOPICAL PRN (16:49)
[2020-07-14] MEDS ORDERED: LIDOCAINE 4% CREAM 5 GM TUBE TOPICAL PRN (16:49)
[2020-07-14] MEDS ORDERED: LOPERAMIDE 2 MG CAP PO PRN (16:49)
[2020-07-14] MEDS ORDERED: ALBUTEROL HFA INHALER INHALATION PRN (16:49)
[2020-07-14] MEDS ORDERED: TORSEMIDE 20 MG TAB PO SCH (17:00)
[2020-07-14] MEDS ORDERED: IPRATROPIUM-ALBUTEROL 3 ML NEB INHALATION PRN (17:49)
--- NOTE | 2020-07-14 17:49 | P.HPIM ---
History of Present Illness H&P Date: 07/14/20 Chief Complaint: chest pain The patient is a 60-year-old female with history of morbid obesity multiple hospitalization most recently in June. The patient presents with chest pain symptoms. She rates the pain as 6 out of 10 with belt associated nausea or vomiting. The patient states at baseline she sleeps on 3 pillows. Patient states she has chronic lower extremity edema for which she takes furosemide. The patient was brought to the emergency room for further evaluation she had initial negative workup for risk factor stratification she was determined to be top need hospitalization for further workup and management. Review of Systems Complete review of systems done negative other than stated above Past Medical History Past Medical History: Asthma, Heart Failure, COPD, Diabetes Mellitus, GE RD/Reflux, Hyperlipidemia, Hypertension, Musculoskeletal Disorder, Osteoarthritis (OA), Pneumonia, Pulmonary Embolus (PE), Thyroid Disorder Additional Past Medical History / Comment(s): chronic low back pain, herniated discs, RLS, leg edema, anemia, gout bilateral feet, hypothyroid, UTIs, hx cellulitis, cataracts, macular degeneration History of Any Multi-Drug Resistant Organisms: None Reported Past Surgical History: Bariatric Surgery, Heart Catheterization, Hernia Repair, Orthopedic Surgery Additional Past Surgical History / Comment(s): Total Right knee replacement, 3 abdominal hernia repairs, left hip repair d/t fracture, gastric bypass/revision, colonoscopy. Past Anesthesia/Blood Transfusion Reactions: No Reported Reaction Past Psychological History: Anxiety, Bipolar, Depression, Panic Disorder, PTSD Additional Psychological History / Comment(s): Borderline personality disorder. 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 Pt has a legal guardian , Taty Mosher. She cannot drive, she either takes the bus to [employer]. She uses a walker to ambulate. She has a glucometer but no longer has to monitor her blood sugars/is out of equipment. Pt states she recently attempted suicide with OD of tramadol. She states she no longer feels suicidal and has no suicidal thoughts/plans. Smoking Status: Never smoker Past Alcohol Use History: Occasional Additional Past Alcohol Use History / Comment(s): In -' was an everyday drinker Past Drug Use History: None Reported - Past Family History Mother Family Medical History: Cancer Additional Family Medical History / Comment(s): lung cancer Father Family Medical History: Diabetes Mellitus Additional Family Medical History / Comment(s): "my dad from a blood clot that traveled from his leg to his lung and also caused a heart attack." Brother(s) Family Medical History: Diabetes Mellitus Sister(s) Additional Family Medical History / Comment(s): "her heart races too fast" Medications and Allergies Home Medications Medication Instructions Recorded Confirmed Type Carvedilol [Coreg] 25 mg PO BID 06/07/17 07/14/20 History Levothyroxine Sodium [Synthroid] 137 mcg PO DAILY 10/20/17 07/14/20 History Montelukast [Singulair] 10 mg PO DAILY 06/28/18 07/14/20 History DULoxetine HCL [Cymbalta] See Taper PO DIRECTED 08/15/18 07/14/20 History rOPINIRole HCL [Requip] 4 mg PO BID 11/18/18 07/14/20 History Torsemide [Demadex] 50 mg PO SUTUTHSA 12/15/18 07/14/20 History Torsemide [Demadex] 100 mg PO MOWEFR 12/15/18 07/14/20 History Acetaminophen [Tylenol 8 Hour] 650 mg PO TID 08/14/19 07/14/20 History Loratadine [Claritin] 10 mg PO DAILY 08/14/19 07/14/20 History Magnesium Oxide [Mag-Ox] 400 mg PO DAILY 08/14/19 07/14/20 History Multivitamins, Thera [Multivitamin 1 tab PO DAILY 08/14/19 07/14/20 History (formulary)] Omeprazole 20 mg PO DAILY 08/14/19 07/14/20 History allopurinoL [Zyloprim] 100 mg PO DAILY 08/14/19 07/14/20 History Ferrous Gluconate 324 mg PO BID 01/19/20 07/14/20 History Gabapentin [Neurontin] 400 mg PO TID 01/19/20 07/14/20 History Melatonin 10 mg PO HS 01/19/20 07/14/20 History Diclofenac Sodium [Voltaren Gel] 4 gram TOPICAL QID PRN 04/03/20 07/14/20 History Potassium Chloride ER [K-Dur 10] 10 meq PO DAILY 04/03/20 07/14/20 History Cholecalciferol [Vitamin D3 (25 5,000 unit PO DAILY 04/28/20 07/14/20 History Mcg = 1000 Iu)] QUEtiapine [SEROquel] 25 mg PO TID 05/12/20 07/14/20 History Sennosides/Docusate Sodium [Senna 2 tab PO HS 05/12/20 07/14/20 History Plus 8.6-50 mg Tablet] L.acidoph,Paracasei, B.lactis 1 cap PO DAILY 06/02/20 07/14/20 History [Probiotic] Loperamide [Imodium] 2 mg PO DAILY PRN 06/02/20 07/14/20 History Paliperidone IM [Invega Sustenna] 156 mg IM Q28D 06/13/20 07/14/20 History Meloxicam [Mobic] 7.5 mg PO DAILY 06/21/20 07/14/20 History Albuterol Inhaler [Ventolin Hfa 2 puff INHALATION RT-Q4H PRN 07/14/20 07/14/20 History Inhaler] Lidocaine 4% Cream [Lmx 4] 1 applic TOPICAL DAILY PRN 07/14/20 07/14/20 History Mirabegron [Myrbetriq] 25 mg PO DAILY 07/14/20 07/14/20 History Nystatin 100,000 Unit/gm Powd 1 applic TOPICAL BID 07/14/20 07/14/20 History [Mycostatin Powder] Tolnaftate [Tinactin] 1 applic TOPICAL DAILY PRN 07/14/20 07/14/20 History lamoTRIgine [LaMICtal] See Taper PO DAILY 07/14/20 07/14/20 History Allergies Allergy/AdvReac Type Severity Reaction Status Date / Time buspirone [From BuSpar] Allergy Rash/Hives Verified 07/14/20 15:46 haloperidol [From Haldol] Allergy Swelling Verified 07/14/20 15:46 hydroxyzine [From Vistaril] Allergy Rash/Hives Verified 07/14/20 15:46 iodine Allergy Swelling Verified 07/14/20 15:46 Penicillins Allergy Swelling Verified 07/14/20 15:46 prochlorperazine Allergy Rash/Hives Verified 07/14/20 15:46 Sulfa (Sulfonamide Allergy Rash/Hives Verified 07/14/20 15:46 Antibiotics) Tetanus Vaccines and Toxoid Allergy Rash/Hives Verified 07/14/20 15:46 [Tetanus Vaccines & Toxoid] trifluoperazine HCl Allergy Unknown Verified 07/14/20 15:46 [From Stelazine] Physical Exam Vitals: Vital Signs Temp Pulse Pulse Resp BP BP Pulse Ox 07/14/20 16:23 98.3 F 102 H 16 117/78 95 07/14/20 15:30 88 18 137/68 07/14/20 15:00 87 17 134/70 98 07/14/20 14:30 80 18 144/74 97 07/14/20 14:00 80 17 131/66 98 07/14/20 13:30 79 15 124/84 100 07/14/20 13:09 76 18 124/84 07/14/20 12:24 97.3 F L 105 H 20 108/67 96 Intake and Output 07/14/20 07/14/20 07/14/20 06:59 14:59 22:59 Output Total 2 Balance -2 Output: Urine 2 Other: Weight 166.922 kg 166.922 kg - Constitutional General appearance: morbidly obese - EENT Eyes: PERRLA - Respiratory Respiratory: bilateral: diminished - Cardiovascular Rhythm: regular ankle Peripheral Edema: bilateral: 2+ - Gastrointestinal General gastrointestinal: normal bowel sounds - Integumentary Integumentary: normal - Neurologic Neurologic: CNII-XII intact - Musculoskeletal Musculoskeletal: strength equal bilaterally - Psychiatric Psychiatric: A&O x's 3, appropriate affect Results CBC & Chem 7: 07/14/20 13:32 07/14/20 13:32 Labs: Abnormal Lab Results - Last 24 Hours (Table) 07/14/20 Range/Units 13:32 Carbon Dioxide 32 H (22-30) mmol/L BUN 35 H (7-17) mg/dL Creatinine 1.06 H (0.52-1.04) mg/dL Abdominal x-ray: report reviewed Thrombosis Risk Factor Assmnt - Choose All That Apply Each Factor Represents 1 point: Age 41-60 years Other Risk Factors: No Thrombosis Risk Factor Assessment Total Risk Factor Score: 1 Thrombosis Risk Factor Assessment Level: Low Risk Assessment and Plan (1) Chest pain Narrative/Plan: The patient multiple hospitalizations morbid obesity will get serial cardiac enzymes, morphine and oxygen nitro aspirin, cardiology consult Current Visit: Yes Status: Acute Code(s): R07.9 - CHEST PAIN, UNSPECIFIED SNOMED Code(s): 98230546 (2) Diabetes Narrative/Plan: Continue outpatient regiment and titrate as needed Current Visit: Yes Status: Acute Code(s): E11.9 - TYPE 2 DIABETES MELLITUS WITHOUT COMPLICATIONS SNOMED Code(s): 17286432 (3) Acute exacerbation of chronic obstructive airways disease Narrative/Plan: We'll [place] nebs, steroids, hold off on antibiotics Current Visit: No Status: Acute Code(s): J44.1 - CHRONIC OBSTRUCTIVE PULMONARY DISEASE W (ACUTE) EXACERBATION SNOMED Code(s): 632356639 (4) Pulmonary edema Narrative/Plan: Patient stated difficulty lying flat to continue her Lasix as IV Current Visit: No Status: Acute Code(s): J81.1 - CHRONIC PULMONARY EDEMA SNOMED Code(s): 48886552
[2020-07-14] MEDS ORDERED: NITROGLYCERIN OINT 1 INCH/GM PACKET TOPICAL SCH (18:00)
[2020-07-14] MEDS ORDERED: QUEtiapine 25 MG TAB PO STA (18:29)
[2020-07-14] MEDS ORDERED: FUROSEMIDE 10 MG/ML 4 ML VIAL IV SCH (21:00)
[2020-07-14] MEDS ORDERED: DULoxetine HCL 60 MG CAPSULE.DR PO SCH (21:00)
[2020-07-14] MEDS ORDERED: NON FORMULARY DRUG (Ferrous Gluconate [Ferrous Gluconate] 324 MG Tablet) PO SCH (21:00)
[2020-07-14] MEDS ORDERED: NYSTATIN 100,000 UNIT/GM POWD 15 GM TOPICAL SCH (21:00)
[2020-07-14] MEDS ORDERED: MELATONIN 5 MG TABLET PO SCH (21:00)
[2020-07-14] MEDS ORDERED: carvediloL 12.5 MG TAB PO SCH (21:00)
[2020-07-14] MEDS ORDERED: INSULIN ASPART (NovoLOG) 100 UNIT/ML VIAL SQ SCH ×2 (21:00)
[2020-07-14] MEDS ORDERED: rOPINIRole HCL 4 MG TABLET PO SCH (21:00)
[2020-07-14] MEDS ORDERED: QUEtiapine 25 MG TAB PO SCH (22:00)
[2020-07-14] MEDS ORDERED: ACETAMINOPHEN TAB 325 MG TAB PO SCH (22:00)
[2020-07-14] MEDS ORDERED: GABAPENTIN 400 MG CAP PO SCH (22:00)
[2020-07-15] MEDS ORDERED: LEVOTHYROXINE 137 MCG TAB PO SCH (06:30)
[2020-07-15] MEDS ORDERED: PANTOPRAZOLE 40 MG TABLET PO SCH (07:30)
[2020-07-15] MEDS ORDERED: ASPIRIN 325 MG TAB PO SCH (09:00)
[2020-07-15] MEDS ORDERED: NON FORMULARY DRUG (Mirabegron [Myrbetriq] 25 MG Tab.Er.24h) PO SCH (09:00)
[2020-07-15] MEDS ORDERED: MONTELUKAST 10 MG TAB PO SCH (09:00)
[2020-07-15] MEDS ORDERED: MELOXICAM 7.5 MG TAB PO SCH (09:00)
[2020-07-15] MEDS ORDERED: TORSEMIDE 20 MG TAB PO SCH (09:00)
[2020-07-15] MEDS ORDERED: MULTIVITAMINS, THERA 1 EACH TAB PO SCH (09:00)
[2020-07-15] MEDS ORDERED: LORATADINE 10 MG TAB PO SCH (09:00)
[2020-07-15] MEDS ORDERED: MAGNESIUM OXIDE 400 MG TAB PO SCH (09:00)
[2020-07-15] MEDS ORDERED: CHOLECALCIFEROL 1,000 UNIT TAB PO SCH (09:00)
[2020-07-15] MEDS ORDERED: POTASSIUM CHLORIDE ER 10 MEQ TAB.ER.PRT PO SCH (09:00)
[2020-07-15] MEDS ORDERED: lamoTRIgine 25 MG TAB PO SCH ×2 (09:00)
[2020-07-15] MEDS ORDERED: allopurinoL 100 MG TAB PO SCH (09:00)
[2020-07-15] MEDS ORDERED: LACTOBACILLUS ACIDOPH & BULGAR 1 EACH PACKET PO SCH (09:00)
== END 2020-07-14 19:40 | disposition left against medical advice (07) ==
LOC: EC 12:22 → 3NCARDOBS 15:14
PROVIDERS: ADMIT Internal Medicine Geriatric Medicine; ATTEND Internal Medicine Geriatric Medicine
DX: R07.9 Chest pain, unspecified (principal); J44.1 Chronic obstructive pulmonary disease with (acute) exacerbation; Z53.29 Procedure and treatment not carried out because of patient's decision for other reasons; E11.9 Type 2 diabetes mellitus without complications; E78.00 Pure hypercholesterolemia, unspecified; I11.0 Hypertensive heart disease with heart failure; I50.9 Heart failure, unspecified; K21.9 Gastro-esophageal reflux disease without esophagitis; E78.5 Hyperlipidemia, unspecified; M19.90 Unspecified osteoarthritis, unspecified site; G89.29 Other chronic pain; M54.5 Low back pain; G25.81 Restless legs syndrome; D64.9 Anemia, unspecified; E03.9 Hypothyroidism, unspecified; H35.30 Unspecified macular degeneration; M10.9 Gout, unspecified; F43.10 Post-traumatic stress disorder, unspecified; F31.9 Bipolar disorder, unspecified; F60.3 Borderline personality disorder; F41.0 Panic disorder [episodic paroxysmal anxiety]; E66.01 Morbid (severe) obesity due to excess calories; Z68.44 Body mass index [BMI] 60.0-69.9, adult; Z79.899 Other long term (current) drug therapy; Z79.890 Hormone replacement therapy; Z79.891 Long term (current) use of opiate analgesic; Z79.1 Long term (current) use of non-steroidal anti-inflammatories (NSAID); Z88.0 Allergy status to penicillin; Z88.2 Allergy status to sulfonamides; Z88.7 Allergy status to serum and vaccine; Z88.8 Allergy status to other drugs, medicaments and biological substances; Z91.048 Other nonmedicinal substance allergy status; Z87.01 Personal history of pneumonia (recurrent); Z86.711 Personal history of pulmonary embolism; Z87.440 Personal history of urinary (tract) infections; Z86.19 Personal history of other infectious and parasitic diseases; Z91.5 Personal history of self-harm; Z98.84 Bariatric surgery status; Z96.651 Presence of right artificial knee joint; Z80.1 Family history of malignant neoplasm of trachea, bronchus and lung; Z83.3 Family history of diabetes mellitus; Z82.49 Family history of ischemic heart disease and other diseases of the circulatory system
CPT/HCPCS: 99285; 36415; 93005; 83880; 80053; 83735; 84484; 85025; 85610; 85730; 71046; G0378

== ENCOUNTER 2020-07-16 15:54 | Emergency (ER) | payer MEDICARE, OTHER ==
[2020-07-16 16:51] VITALS: RESP 16
[2020-07-16 17:27] LABS: Basophils % (A) 0 %; Eosinophils # (A) 0.1 k/uL (0-0.7); Eosinophils % (A) 1 %; HGB 11.1 gm/dL (11.4-16.0); Lymphocytes # (A) 1.9 k/uL (1.0-4.8); Lymphocytes % (A) 24 %; MCHC 31.8 g/dL (31.0-37.0); MCV 88.2 fL (80.0-100.0); Mean Platelet Volume 7.9; Monocytes # (A) 0.4 k/uL (0-1.0); Monocytes % (A) 5 %; Neutrophils # (A) 5.4 k/uL (1.3-7.7); Neutrophils % (A) 66 %; Platelet Count 272 k/uL (150-450); RBC 3.97 m/uL (3.80-5.40); RDW 15.1 % (11.5-15.5); WBC 8.1 k/uL (3.8-10.6)
[2020-07-16 17:38] LABS: Albumin 3.8 g/dL (3.5-5.0); Calcium 8.7 mg/dL (8.4-10.2); Magnesium 1.8 mg/dL (1.6-2.3); Total Bilirubin 0.3 mg/dL (0.2-1.3); Total Protein 6.6 g/dL (6.3-8.2)
--- NOTE | 2020-07-16 17:40 | XR ---
EXAMINATION TYPE: XR chest 2V DATE OF EXAM: 07/16/2020 COMPARISON: 07/14/2020 HISTORY: Chest pain TECHNIQUE: FINDINGS: Heart and mediastinum are within normal limits. Lungs are clear of infiltrate. There is no heart failure. There are no hilar masses. Costophrenic angles are clear. Bony thorax is intact. IMPRESSION: No active cardiopulmonary disease. Normal heart. No change.
[2020-07-16 17:42] LABS: INR 0.9 (<1.2); Partial Thromboplastin Time 22.5 sec (22.0-30.0); Prothrombin Time 9.4 sec (9.0-12.0)
[2020-07-16] MEDS ORDERED: SODIUM CHLORIDE 0.9% 500 ML 500 ML IV ONE (17:45)
--- NOTE | 2020-07-16 17:57 | ED ---
General Adult HPI - General Chief complaint: Chest Pain Stated complaint: chest pain Time Seen by Provider: 07/16/20 16:12 Source: patient, EMS, RN notes reviewed, old records reviewed Mode of arrival: EMS Limitations: no limitations - History of Present Illness Initial comments: 60-year-old female patient to ED for chest pain. Patient well-known to this emergency department. Denies any other acute complaints. Reports its left parasternal, reproducible upon palpatin. Reports it is the same pain that she had when she was admitted on 07/14. Pt did leave AMA from the hospital on 07/14. She reports the pain has been ongoing the last 3 days. Systemic: Pt denies fatigue, fever/chills, rash. Pt denies weakness, night sweats, weight loss. Neuro: Pt denies headache, visual disturbances, syncope or pre-syncope. HEENT: Pt denies ocular discharge or irritation, otalgia, rhinorrhea, pharyngitis or notable lymphadenopathy. Cardiopulmonary: Pt denies SOB, heart palpitations, dyspnea on exertion. Abdominal/GI: Pt denies abdominal pain, n/v/d. : Pt denies dysuria, burning w/ urination, frequency/urgency. Denies new onset urinary or bowel incontinence. MSK: Pt denies myalgia, loss of strength or function in extremities. Neuro: Pt denies new onset weakness, paresthesias. - Related Data Home Medications Medication Instructions Recorded Confirmed Carvedilol [Coreg] 25 mg PO BID 06/07/17 07/14/20 Levothyroxine Sodium [Synthroid] 137 mcg PO DAILY 10/20/17 07/14/20 Montelukast [Singulair] 10 mg PO DAILY 06/28/18 07/14/20 DULoxetine HCL [Cymbalta] See Taper PO DIRECTED 08/15/18 07/14/20 rOPINIRole HCL [Requip] 4 mg PO BID 11/18/18 07/14/20 Torsemide [Demadex] 50 mg PO SUTUTHSA 12/15/18 07/14/20 Torsemide [Demadex] 100 mg PO MOWEFR 12/15/18 07/14/20 Acetaminophen [Tylenol 8 Hour] 650 mg PO TID 08/14/19 07/14/20 Loratadine [Claritin] 10 mg PO DAILY 08/14/19 07/14/20 Magnesium Oxide [Mag-Ox] 400 mg PO DAILY 08/14/19 07/14/20 Multivitamins, Thera [Multivitamin 1 tab PO DAILY 08/14/19 07/14/20 (formulary)] Omeprazole 20 mg PO DAILY 08/14/19 07/14/20 allopurinoL [Zyloprim] 100 mg PO DAILY 08/14/19 07/14/20 Ferrous Gluconate 324 mg PO BID 01/19/20 07/14/20 Gabapentin [Neurontin] 400 mg PO TID 01/19/20 07/14/20 Melatonin 10 mg PO HS 01/19/20 07/14/20 Diclofenac Sodium [Voltaren Gel] 4 gram TOPICAL QID PRN 04/03/20 07/14/20 Potassium Chloride ER [K-Dur 10] 10 meq PO DAILY 04/03/20 07/14/20 Cholecalciferol [Vitamin D3 (25 5,000 unit PO DAILY 04/28/20 07/14/20 Mcg = 1000 Iu)] QUEtiapine [SEROquel] 25 mg PO TID 05/12/20 07/14/20 Sennosides/Docusate Sodium [Senna 2 tab PO HS 05/12/20 07/14/20 Plus 8.6-50 mg Tablet] L.acidoph,Paracasei, B.lactis 1 cap PO DAILY 06/02/20 07/14/20 [Probiotic] Loperamide [Imodium] 2 mg PO DAILY PRN 06/02/20 07/14/20 Paliperidone IM [Invega Sustenna] 156 mg IM Q28D 06/13/20 07/14/20 Meloxicam [Mobic] 7.5 mg PO DAILY 06/21/20 07/14/20 Albuterol Inhaler [Ventolin Hfa 2 puff INHALATION RT-Q4H PRN 07/14/20 07/14/20 Inhaler] Lidocaine 4% Cream [Lmx 4] 1 applic TOPICAL DAILY PRN 07/14/20 07/14/20 Mirabegron [Myrbetriq] 25 mg PO DAILY 07/14/20 07/14/20 Nystatin 100,000 Unit/gm Powd 1 applic TOPICAL BID 07/14/20 07/14/20 [Mycostatin Powder] Tolnaftate [Tinactin] 1 applic TOPICAL DAILY PRN 07/14/20 07/14/20 lamoTRIgine [LaMICtal] See Taper PO DAILY 07/14/20 07/14/20 Allergies Allergy/AdvReac Type Severity Reaction Status Date / Time buspirone [From BuSpar] Allergy Rash/Hives Verified 07/14/20 15:46 haloperidol [From Haldol] Allergy Swelling Verified 07/14/20 15:46 hydroxyzine [From Vistaril] Allergy Rash/Hives Verified 07/14/20 15:46 iodine Allergy Swelling Verified 07/14/20 15:46 Penicillins Allergy Swelling Verified 07/14/20 15:46 prochlorperazine Allergy Rash/Hives Verified 07/14/20 15:46 Sulfa (Sulfonamide Allergy Rash/Hives Verified 07/14/20 15:46 Antibiotics) Tetanus Vaccines and Toxoid Allergy Rash/Hives Verified 07/14/20 15:46 [Tetanus Vaccines & Toxoid] trifluoperazine HCl Allergy Unknown Verified 07/14/20 15:46 [From Stelazine] Review of Systems ROS Statement: Those systems with pertinent positive or pertinent negative responses have been documented in the HPI. ROS Other: All systems not noted in ROS Statement are negative. Past Medical History Past Medical History: Asthma, Heart Failure, COPD, Diabetes Mellitus, GERD/Reflux, Hyperlipidemia, Hypertension, Musculoskeletal Disorder, Osteoarthritis (OA), Pneumonia, Pulmonary Embolus (PE), Thyroid Disorder Additional Past Medical History / Comment(s): chronic low back pain, herniated discs, RLS, leg edema, anemia, gout bilateral feet, hypothyroid, UTIs, hx ce llulitis, cataracts, macular degeneration History of Any Multi-Drug Resistant Organisms: None Reported Past Surgical History: Bariatric Surgery, Heart Catheterization, Hernia Repair, Orthopedic Surgery Additional Past Surgical History / Comment(s): Total Right knee replacement, 3 abdominal hernia repairs, left hip repair d/t fracture, gastric bypass/revision, colonoscopy. Past Anesthesia/Blood Transfusion Reactions: No Reported Reaction Past Psychological History: Anxiety, Bipolar, Depression, Panic Disorder, PTSD Smoking Status: Never smoker Past Alcohol Use History: Occasional Past Drug Use History: None Reported - Past Family History Mother Family Medical History: Cancer Additional Family Medical History / Comment(s): lung cancer Father Family Medical History: Diabetes Mellitus Additional Family Medical History / Comment(s): "my dad from a blood clot that traveled from his leg to his lung and also caused a heart attack." Brother(s) Family Medical History: Diabetes Mellitus Sister(s) Additional Family Medical History / Comment(s): "her heart races too fast" General Exam - General Exam Comments Initial Comments: Constitutional: NAD, AOX3, Pt has pleasant affect. HEENT: NC/AT, trachea midline, neck supple, no lymphadenopathy. Posterior pharynx non erythematous, without exudates. External ears appear normal, without discharge. Mucous membranes moist. Eyes PERRLA, EOM intact. There is no scleral icterus. No pallor noted. Cardiopulmonary: RRR, no murmurs, rubs or gallops, no JVD noted. Lungs CTAB in anterior and posterior bowser. No peripheral edema. Abdominal exam: Abdomen soft and non-distended. Abdomen non-tender to palpation in all 4 quadrants. Bowel sounds active in LLQ. No hepatosplenomegaly. No ecchymosis Neuro: CN II-XII grossly intact. No nuchal rigidity. No raccon eyes, no smith sign, no hemotympanum. No cervical spinal tenderness. MSK: Left parasternal discomfort reproducible upon palpation. No posterior calf tenderness bilaterally, homans sign negative bilaterally. Posterior tibialis and radial pulse +2 bilaterally. Sensation intact in upper and lower extremities. Full active ROM in upper and lower extremities, 5/5 stregnth. Limitations: no limitations Course Vital Signs 07/16/20 16:48 Temperature 98.0 F Pulse Rate 92 Respiratory 16 Rate Blood Pressure 123/88 O2 Sat by Pulse 94 L Oximetry Medical Decision Making - Medical Decision Making 60-year-old female patient well known this emergency department for repeat presentations for chest pain to ED for left parasternal chest discomfort. Pain is reproducible upon palpation. EKG is nonischemic. Troponin is negative 2. she is mildly dehydrated. Advised to drink fluids and have repeat by primary care provider. Patient no acute distress or discomfort. Will discharge the patient with outpatient follow up. Case discussed with Dr. Layton. - Lab Data Result diagrams: 07/16/20 16:28 07/16/20 16:28 Lab Results 07/16/20 07/16/20 07/16/20 Range/Units 16:28 16:28 16:28 WBC 8.1 (3.8-10.6) k/uL RBC 3.97 (3.80-5.40) m/uL Hgb 11.1 L (11.4-16.0) gm/dL Hct 35.0 (34.0-46.0) % MCV 88.2 (80.0-100.0) fL MCH 28.0 (25.0-35.0) pg MCHC 31.8 (31.0-37.0) g/dL RDW 15.1 (11.5-15.5) % Plt Count 272 (150-450) k/uL MPV 7.9 Neutrophils % 66 % Lymphocytes % 24 % Monocytes % 5 % Eosinophils % 1 % Basophils % 0 % Neutrophils # 5.4 (1.3-7.7) k/uL Lymphocytes # 1.9 (1.0-4.8) k/uL Monocytes # 0.4 (0-1.0) k/uL Eosinophils # 0.1 (0-0.7) k/uL Basophils # 0.0 (0-0.2) k/uL PT 9.4 (9.0-12.0) sec INR 0.9 (<1.2) APTT 22.5 (22.0-30.0) sec Sodium 139 (137-145) mmol/L Potassium 4.0 (3.5-5.1) mmol/L Chloride 103 (98-107) mmol/L Carbon Dioxide 30 (22-30) mmol/L Anion Gap 6 mmol/L BUN 28 H (7-17) mg/dL Creatinine 1.21 H (0.52-1.04) mg/dL Est GFR (CKD-EPI)AfAm 57 (>60 ml/min/1.73 sqM) Est GFR (CKD-EPI)NonAf 49 (>60 ml/min/1.73 sqM) Glucose 78 (74-99) mg/dL Calcium 8.7 (8.4-10.2) mg/dL Magnesium 1.8 (1.6-2.3) mg/dL Total Bilirubin 0.3 (0.2-1.3) mg/dL AST 30 (14-36) U/L ALT 22 (4-34) U/L Alkaline Phosphatase 93 (38-126) U/L Troponin I (0.000-0.034) ng/mL Total Protein 6.6 (6.3-8.2) g/dL Albumin 3.8 (3.5-5.0) g/dL 07/16/20 07/16/20 Range/Units 16:28 18:49 WBC (3.8-10.6) k/uL RBC (3.80-5.40) m/uL Hgb (11.4-16.0) gm/dL Hct (34.0-46.0) % MCV (80.0-100.0) fL MCH (25.0-35.0) pg MCHC (31.0-37.0) g/dL RDW (11.5-15.5) % Plt Count (150-450) k/uL MPV Neutrophils % % Lymphocytes % % Monocytes % % Eosinophils % % Basophils % % Neutrophils # (1.3-7.7) k/uL Lymphocytes # (1.0-4.8) k/uL Monocytes # (0-1.0) k/uL Eosinophils # (0-0.7) k/uL Basophils # (0-0.2) k/uL PT (9.0-12.0) sec INR (<1.2) APTT (22.0-30.0) sec Sodium (137-145) mmol/L Potassium (3.5-5.1) mmol/L Chloride (98-107) mmol/L Carbon Dioxide (22-30) mmol/L Anion Gap mmol/L BUN (7-17) mg/dL Creatinine (0.52-1.04) mg/dL Est GFR (CKD-EPI)AfAm (>60 ml/min/1.73 sqM) Est GFR (CKD-EPI)NonAf (>60 ml/min/1.73 sqM) Glucose (74-99) mg/dL Calcium (8.4-10.2) mg/dL Magnesium (1.6-2.3) mg/dL Total Bilirubin (0.2-1.3) mg/dL AST (14-36) U/L ALT (4-34) U/L Alkaline Phosphatase (38-126) U/L Troponin I <0.012 <0.012 (0.000-0.034) ng/mL Total Protein (6.3-8.2) g/dL Albumin (3.5-5.0) g/dL - EKG Data -: EKG Interpreted by Me (and Dr. Layton ) EKG Comments: Ventricular rate 97, SD interval 140, QRS 80, QT/QTc 342/434. Normal sinus rhythm, normal EKG, no concern for acute ischemia. Disposition Clinical Impression: Chest wall pain Disposition: HOME SELF-CARE Condition: Stable Instructions (If sedation given, give patient instructions): Chest Pain (ED) Additional Instructions: Follow up with PCP tomorrow. Drink lots of water. Have kidney function tests rechecked, return to ED with any worsening symptoms. Is patient prescribed a controlled substance at d/c from ED?: No Referrals: [facility] [Primary Care Provider] - 1-2 days
[2020-07-16] MEDS ORDERED: MORPHINE SULFATE 4 MG/ML SYRINGE IV STA (19:17)
[2020-07-16 20:41] VITALS: BP 120/78; PULSE 89; TEMP 98.2
== END 2020-07-16 20:20 | disposition home or self-care (01) ==
LOC: EC 15:54
DX: R07.89 Other chest pain (principal); E86.0 Dehydration; I11.0 Hypertensive heart disease with heart failure; I50.9 Heart failure, unspecified; J44.9 Chronic obstructive pulmonary disease, unspecified; G89.29 Other chronic pain; M54.5 Low back pain; M19.90 Unspecified osteoarthritis, unspecified site; G25.81 Restless legs syndrome; K21.9 Gastro-esophageal reflux disease without esophagitis; M10.9 Gout, unspecified; E03.9 Hypothyroidism, unspecified; D64.9 Anemia, unspecified; F32.9 Major depressive disorder, single episode, unspecified; F43.10 Post-traumatic stress disorder, unspecified; F41.9 Anxiety disorder, unspecified; Z79.899 Other long term (current) drug therapy; Z79.890 Hormone replacement therapy; Z79.1 Long term (current) use of non-steroidal anti-inflammatories (NSAID); Z88.8 Allergy status to other drugs, medicaments and biological substances; Z91.048 Other nonmedicinal substance allergy status; Z88.0 Allergy status to penicillin; Z88.2 Allergy status to sulfonamides; Z88.7 Allergy status to serum and vaccine; Z96.651 Presence of right artificial knee joint; Z86.711 Personal history of pulmonary embolism
CPT/HCPCS: 36415; 93005; 80053; 83735; 84484; 85025; 85610; 85730; 71046; 99285; 96374; 96361; J2270

== ENCOUNTER 2020-07-19 13:56 | Emergency (ER) | payer MEDICARE, OTHER ==
[2020-07-19 14:13] VITALS: RESP 18; TEMP 97.7
[2020-07-19] MEDS ORDERED: ONDANSETRON 4 MG/2 ML VIAL IVP STA (14:20)
[2020-07-19] MEDS ORDERED: SODIUM CHLORIDE 0.9% 500 ML 500 ML IV STA (14:20)
[2020-07-19 14:44] LABS: Basophils % (A) 0 %; Eosinophils # (A) 0.1 k/uL (0-0.7); Eosinophils % (A) 2 %; HCT 32.4 % (34.0-46.0); HGB 10.3 gm/dL (11.4-16.0); Lymphocytes # (A) 1.5 k/uL (1.0-4.8); Lymphocytes % (A) 20 %; MCH 28.7 pg (25.0-35.0); MCHC 31.9 g/dL (31.0-37.0); MCV 89.8 fL (80.0-100.0); Mean Platelet Volume 7.4; Monocytes # (A) 0.5 k/uL (0-1.0); Monocytes % (A) 6 %; Neutrophils # (A) 5.1 k/uL (1.3-7.7); Neutrophils % (A) 67 %; Platelet Count 267 k/uL (150-450); RBC 3.61 m/uL (3.80-5.40); RDW 14.7 % (11.5-15.5); WBC 7.6 k/uL (3.8-10.6)
[2020-07-19 14:48] LABS: Albumin 3.8 g/dL (3.5-5.0); Calcium 9.3 mg/dL (8.4-10.2); Magnesium 1.7 mg/dL (1.6-2.3); Potassium 3.8 mmol/L (3.5-5.1); Total Bilirubin 0.3 mg/dL (0.2-1.3); Total Protein 6.5 g/dL (6.3-8.2)
--- NOTE | 2020-07-19 14:50 | ED ---
Chest Pain HPI - General Chief Complaint: Chest Pain Stated Complaint: chest pain Time Seen by Provider: 07/19/20 14:08 Source: patient, EMS Mode of arrival: EMS Limitations: no limitations - History of Present Illness Initial Comments: Patient is a 60-year-old female, well-known to the ER, presenting via EMS with complaints of chest pressure that started about 3 hours prior to arrival. She states she "feels like an elephant sitting on her chest." She was given an aspirin in the EMS prior to her arrival. She states the pain increases when she twists to either side. She is also complaining of some mild nausea and states she threw up 3 times before she got here. She denies any abdominal pain, just a mild burning in her stomach area. She denies any cough, fever, chills, shortness of breath. She denies any dysuria, she denies any diarrhea. She has no further complaints at this time. Upon arrival to the ER, her vitals are stable. - Related Data Home Medications Medication Instructions Recorded Confirmed Carvedilol [Coreg] 25 mg PO BID 06/07/17 07/19/20 Levothyroxine Sodium [Synthroid] 137 mcg PO DAILY 10/20/17 07/19/20 Montelukast [Singulair] 10 mg PO DAILY 06/28/18 07/19/20 DULoxetine HCL [Cymbalta] 60 mg PO BID 08/15/18 07/19/20 rOPINIRole HCL [Requip] 4 mg PO BID 11/18/18 07/19/20 Torsemide [Demadex] 50 mg PO SUTUTHSA 12/15/18 07/19/20 Torsemide [Demadex] 100 mg PO MOWEFR 12/15/18 07/19/20 Acetaminophen [Tylenol 8 Hour] 650 mg PO TID 08/14/19 07/19/20 Loratadine [Claritin] 10 mg PO DAILY 08/14/19 07/19/20 Magnesium Oxide [Mag-Ox] 400 mg PO DAILY 08/14/19 07/19/20 Multivitamins, Thera [Multivitamin 1 tab PO DAILY 08/14/19 07/19/20 (formulary)] Omeprazole 20 mg PO DAILY 08/14/19 07/19/20 allopurinoL [Zyloprim] 100 mg PO DAILY 08/14/19 07/19/20 Ferrous Gluconate 324 mg PO BID 01/19/20 07/19/20 Gabapentin [Neurontin] 400 mg PO TID 01/19/20 07/19/20 Melatonin 10 mg PO HS 01/19/20 07/19/20 Diclofenac Sodium [Voltaren Gel] 4 gram TOPICAL QID PRN 04/03/20 07/19/20 Potassium Chloride ER [K-Dur 10] 10 meq PO DAILY 04/03/20 07/19/20 Cholecalciferol [Vitamin D3 (25 5,000 unit PO DAILY 04/28/20 07/19/20 Mcg = 1000 Iu)] QUEtiapine [SEROquel] 25 mg PO TID 05/12/20 07/19/20 Sennosides/Docusate Sodium [Senna 2 tab PO HS 05/12/20 07/19/20 Plus 8.6-50 mg Tablet] L.acidoph,Paracasei, B.lactis 1 cap PO DAILY 06/02/20 07/19/20 [Probiotic] Loperamide [Imodium] 2 mg PO DAILY PRN 06/02/20 07/19/20 Paliperidone IM [Invega Sustenna] 156 mg IM Q28D 06/13/20 07/19/20 Meloxicam [Mobic] 7.5 mg PO DAILY 06/21/20 07/19/20 Albuterol Inhaler [Ventolin Hfa 2 puff INHALATION RT-Q4H PRN 07/14/20 07/19/20 Inhaler] Lidocaine 4% Cream [Lmx 4] 1 applic TOPICAL DAILY PRN 07/14/20 07/19/20 Mirabegron [Myrbetriq] 25 mg PO DAILY 07/14/20 07/19/20 Nystatin 100,000 Unit/gm Powd 1 applic TOPICAL BID 07/14/20 07/19/20 [Mycostatin Powder] Tolnaftate [Tinactin] 1 applic TOPICAL DAILY PRN 07/14/20 07/19/20 lamoTRIgine [LaMICtal] 50 mg PO DAILY 07/14/20 07/19/20 Allergies Allergy/AdvReac Type Severity Reaction Status Date / Time buspirone [From BuSpar] Allergy Rash/Hives Verified 07/19/20 15:30 haloperidol [From Haldol] Allergy Swelling Verified 07/19/20 15:30 hydroxyzine [From Vistaril] Allergy Rash/Hives Verified 07/19/20 15:30 iodine Allergy Swelling Verified 07/19/20 15:30 Penicillins Allergy Swelling Verified 07/19/20 15:30 prochlorperazine Allergy Rash/Hives Verified 07/19/20 15:30 Sulfa (Sulfonamide Allergy Rash/Hives Verified 07/19/20 15:30 Antibiotics) Tetanus Vaccines and Toxoid Allergy Rash/Hives Verified 07/19/20 15:30 [Tetanus Vaccines & Toxoid] trifluoperazine HCl Allergy Unknown Verified 07/19/20 15:30 [From Stelazine] Review of Systems ROS Statement: Those systems with pertinent positive or pertinent negative responses have been documented in the HPI. ROS Other: All systems not noted in ROS Statement are negative. EKG Findings - EKG Comments: EKG Findings:: Normal sinus rhythm, normal ECG, no signs of acute ischemia. Ventricular rate 76, IA interval 132, QT 382. Past Medical History Past Medical History: Asthma, Heart Failure, COPD, Diabetes Mellitus, GERD/Reflux, Hyperlipidemia, Hypertension, Musculoskeletal Disorder, Osteoarthritis (OA), Pneumonia, Pulmonary Embolus (PE), Thyroid Disorder Additional Past Medical History / Comment(s): chronic low back pain, herniated discs, RLS, leg edema, anemia, gout bilateral feet, hypothyroid, UTIs, hx cellulitis, cataracts, macular degeneration History of Any Multi-Drug Resistant Organisms: None Reported Past Surgical History: Bariatric Surgery, Heart Catheterization, Hernia Repair, Orthopedic Surgery Additional Past Surgical History / Comment(s): Total Right knee replacement, 3 abdominal hernia repairs, left hip repair d/t fracture, gastric bypass/revision, colonoscopy. Past Anesthesia/Blood Transfusion Reactions: No Reported Reaction Past Psychological History: Anxiety, Bipolar, Depression, Panic Disorder, PTSD Smoking Status: Never smoker Past Alcohol Use History: Occasional Past Drug Use History: None Reported - Past Family History Mother Family Medical History: Cancer Additional Family Medical History / Comment(s): lung cancer Father Family Medical History: Diabetes Mellitus Additional Family Medical History / Comment(s): "my dad from a blood clot that traveled from his leg to his lung and also caused a heart attack." Brother(s) Family Medical History: Diabetes Mellitus Sister(s) Additional Family Medical History / Comment(s): "her heart races too fast" General Exam - General Exam Comments Initial Comments: GENERAL: Patient is well-developed and well-nourished. Patient is nontoxic and in no acute distress. She is laying on her side, resting comfortably. HEAD: Atraumatic, normocephalic. EYES: Pupils equal round and reactive to light, extraocular movements intact, sclera anicteric, conjunctiva are normal. Eyelids were unremarkable. ENT: TMs normal, nares patent, oropharynx clear without exudates. Moist mucous membranes. NECK: Normal range of motion, supple without lymphadenopathy or JVD. LUNGS: Unlabored respirations. Breath sounds clear to auscultation bilaterally and equal. No wheezes rales or rhonchi. HEART: Regular rate and rhythm without murmurs, rubs or gallops. ABDOMEN: Soft, nontender, normoactive bowel sounds. No guarding, no rebound. No masses appreciated. : Deferred MUSCULOSKELETAL: Normal extremities with adequate strength and normal range of motion, no pitting or edema. No clubbing or cyanosis. NEUROLOGICAL: Patient is alert and oriented x 3. Motor and sensory are also intact. Cranial nerves II through XII grossly intact. Symmetrical smile. Normal speech, normal gait. PSYCH: Normal mood, normal affect. SKIN: Warm, Dry, normal turgor, no rashes or lesions noted. Limitations: no limitations Course Vital Signs 07/19/20 07/19/20 13:58 16:04 Temperature 97.7 F Pulse Rate 85 90 Respiratory 18 18 Rate Blood Pressure 172/92 164/90 O2 Sat by Pulse 97 98 Oximetry Chest Pain [facility] Patient is a 60-year-old female here for chest pressure that increases with movement. She is well-known to this ER, has multiple visits for same complaint. Her EKG is unremarkable today, no signs of acute ischemia. Chest x-ray is normal. Lab work is also unremarkable, I did get a series of 2 troponins which are both negative. Patient has been resting currently in the ER without complaints, no vomiting episodes. I did review her prior labs and consults. I discussed with patient this is most likely atypical chest pain, costochondritis. I did give her some Motrin which she states did improve her symptoms. She is stable for discharge at this time. She is follow up with her PCP. She is in agreement with this plan of care. Return parameters were discussed with the patient and she verbalized understanding. Case discussed with Dr. Zamarripa. Disposition Clinical Impression: Atypical chest pain Disposition: HOME SELF-CARE Condition: Stable Instructions (If sedation given, give patient instructions): Costochondritis (ED) Additional Instructions: Please return to the Emergency Department if symptoms worsen or any other concerns. Workup today is normal. May take Motrin or Tylenol for discomfort. Follow- up with your PCP. Is patient prescribed a controlled substance at d/c from ED?: No Referrals: [facility] [Primary Care Provider] - 1-2 days
[2020-07-19 14:54] LABS: INR 0.9 (<1.2); Partial Thromboplastin Time 22.8 sec (22.0-30.0); Prothrombin Time 9.4 sec (9.0-12.0)
--- NOTE | 2020-07-19 14:56 | XR ---
EXAMINATION TYPE: XR chest 2V DATE OF EXAM: 07/19/2020 COMPARISON: 07/16/2001 TECHNIQUE: PA and lateral views submitted. HISTORY: Chest pain FINDINGS: The lungs are clear and there is no pneumothorax, pleural effusion, or focal pneumonia. Heart size mildly prominent. Is a slightly coarsened interstitium. There is reduced inspiration. IMPRESSION: 1. Coarsened interstitium be seen with reduced inspiration rather than bronchitis or interstitial pne umonitis, correlate clinically.
[2020-07-19 16:08] VITALS: BP 164/90; PULSE 90
[2020-07-19] MEDS ORDERED: IBUPROFEN 600 MG TAB PO STA (16:09)
== END 2020-07-19 16:28 | disposition home or self-care (01) ==
LOC: EC 13:56
DX: R07.89 Other chest pain (principal); I11.0 Hypertensive heart disease with heart failure; I50.9 Heart failure, unspecified; E03.9 Hypothyroidism, unspecified; J44.9 Chronic obstructive pulmonary disease, unspecified; G89.29 Other chronic pain; M54.5 Low back pain; K21.9 Gastro-esophageal reflux disease without esophagitis; M10.9 Gout, unspecified; M19.90 Unspecified osteoarthritis, unspecified site; G25.81 Restless legs syndrome; F41.9 Anxiety disorder, unspecified; F32.9 Major depressive disorder, single episode, unspecified; F43.10 Post-traumatic stress disorder, unspecified; Z79.890 Hormone replacement therapy; Z79.1 Long term (current) use of non-steroidal anti-inflammatories (NSAID); Z79.899 Other long term (current) drug therapy; Z91.048 Other nonmedicinal substance allergy status; Z88.0 Allergy status to penicillin; Z88.8 Allergy status to other drugs, medicaments and biological substances; Z88.2 Allergy status to sulfonamides; Z88.7 Allergy status to serum and vaccine; Z86.711 Personal history of pulmonary embolism; Z96.651 Presence of right artificial knee joint
CPT/HCPCS: 36415; 93005; 80053; 83735; 84484; 85025; 85610; 85730; 71046; 99285; 96374; J2405

== ENCOUNTER 2020-07-21 13:11 | Emergency (ER) | payer MEDICARE, OTHER ==
[2020-07-21 13:27] VITALS: BP 130/64; PULSE 80; RESP 18; TEMP 97.9
--- NOTE | 2020-07-21 13:36 | ED ---
General Adult HPI - General Chief complaint: Shortness of Breath Stated complaint: SOB Time Seen by Provider: 07/21/20 13:20 Source: patient, EMS, RN notes reviewed, old records reviewed Mode of arrival: EMS Limitations: physical limitation - History of Present Illness Initial comments: This is a 60-year-old female who presents emergency department stating that she was at [facility] when she started feeling a little short of breath. Patient states she's feeling better now. Patient denies any chest pain or palpitations per patient denies any recent fever chills or cough. Patient denies any lightheadedness or dizziness. Patient states that she thinks her weight has a lot to do with it but she's been unable to lose weight. Patient denies any abdominal pain patient denies nausea vomiting diarrhea. Patient denies any increased swelling or calf tenderness. - Related Data Home Medications Medication Instructions Recorded Confirmed Carvedilol [Coreg] 25 mg PO BID 06/07/17 07/21/20 Levothyroxine Sodium [Synthroid] 137 mcg PO DAILY 10/20/17 07/21/20 Montelukast [Singulair] 10 mg PO DAILY 06/28/18 07/21/20 DULoxetine HCL [Cymbalta] 60 mg PO BID 08/15/18 07/21/20 rOPINIRole HCL [Requip] 4 mg PO BID 11/18/18 07/21/20 Torsemide [Demadex] 50 mg PO SUTUTHSA 12/15/18 07/21/20 Torsemide [Demadex] 100 mg PO MOWEFR 12/15/18 07/21/20 Acetaminophen [Tylenol 8 Hour] 650 mg PO TID 08/14/19 07/21/20 Loratadine [Claritin] 10 mg PO DAILY 08/14/19 07/21/20 Magnesium Oxide [Mag-Ox] 400 mg PO DAILY 08/14/19 07/21/20 Multivitamins, Thera [Multivitamin 1 tab PO DAILY 08/14/19 07/21/20 (formulary)] Omeprazole 20 mg PO DAILY 08/14/19 07/21/20 allopurinoL [Zyloprim] 100 mg PO DAILY 08/14/19 07/21/20 Ferrous Gluconate 324 mg PO BID 01/19/20 07/21/20 Gabapentin [Neurontin] 400 mg PO TID 01/19/20 07/21/20 Melatonin 10 mg PO HS 01/19/20 07/21/20 Diclofenac Sodium [Voltaren Gel] 4 gram TOPICAL QID PRN 04/03/20 07/21/20 Potassium Chloride ER [K-Dur 10] 10 meq PO DAILY 04/03/20 07/21/20 Cholecalciferol [Vitamin D3 (25 5,000 unit PO DAILY 04/28/20 07/21/20 Mcg = 1000 Iu)] QUEtiapine [SEROquel] 25 mg PO TID 05/12/20 07/21/20 Sennosides/Docusate Sodium [Senna 2 tab PO HS 05/12/20 07/21/20 Plus 8.6-50 mg Tablet] L.acidoph,Paracasei, B.lactis 1 cap PO DAILY 06/02/20 07/21/20 [Probiotic] Loperamide [Imodium] 2 mg PO DAILY PRN 06/02/20 07/21/20 Paliperidone IM [Invega Sustenna] 156 mg IM Q28D 06/13/20 07/21/20 Meloxicam [Mobic] 7.5 mg PO DAILY 06/21/20 07/21/20 Albuterol Inhaler [Ventolin Hfa 2 puff INHALATION RT-Q4H PRN 07/14/20 07/21/20 Inhaler] Lidocaine 4% Cream [Lmx 4] 1 applic TOPICAL DAILY PRN 07/14/20 07/21/20 Mirabegron [Myrbetriq] 25 mg PO DAILY 07/14/20 07/21/20 Nystatin 100,000 Unit/gm Powd 1 applic TOPICAL BID 07/14/20 07/21/20 [Mycostatin Powder] Tolnaftate [Tinactin] 1 applic TOPICAL DAILY PRN 07/14/20 07/21/20 lamoTRIgine [LaMICtal] 50 mg PO DAILY 07/14/20 07/21/20 Allergies Allergy/AdvReac Type Severity Reaction Status Date / Time buspirone [From BuSpar] Allergy Rash/Hives Verified 07/21/20 14:11 haloperidol [From Haldol] Allergy Swelling Verified 07/21/20 14:11 hydroxyzine [From Vistaril] Allergy Rash/Hives Verified 07/21/20 14:11 iodine Allergy Swelling Verified 07/21/20 14:11 Penicillins Allergy Swelling Verified 07/21/20 14:11 prochlorperazine Allergy Rash/Hives Verified 07/21/20 14:11 Sulfa (Sulfonamide Allergy Rash/Hives Verified 07/21/20 14:11 Antibiotics) Tetanus Vaccines and Toxoid Allergy Rash/Hives Verified 07/21/20 14:11 [Tetanus Vaccines & Toxoid] trifluoperazine HCl Allergy Unknown Verified 07/21/20 14:11 [From Stelazine] Review of Systems ROS Statement: Those systems with pertinent positive or pertinent negative responses have been documented in the HPI. ROS Other: All systems not noted in ROS Statement are negative. Past Medical History Past Medical History: Asthma, Heart Failure, COPD, Diabetes Mellitus, GERD/Reflux, Hyperlipidemia, Hypertension, Musculoskeletal Disorder, Osteoarthritis (OA), Pneumonia, Pulmonary Embolus (PE), Thyroid Disorder Additional Past Medical History / Comment(s): chronic low back pain, herniated discs, RLS, leg edema, anemia, gout bilateral feet, hypothyroid, UTIs, hx cellulitis, cataracts, macular degeneration History of Any Multi-Drug Resistant Organisms: None Reported Past Surgical History: Bariatric Surgery, Heart Catheterization, Hernia Repair, Orthopedic Surgery Additional Past Surgical History / Comment(s): Total Right knee replacement, 3 abdominal hernia repairs, left hip repair d/t fracture, gastric bypass/revision, colonoscopy. Past Anesthesia/Blood Transfusion Reactions: No Reported Reaction Past Psychological History: Anxiety, Bipolar, Depression, Panic Disorder, PTSD Smoking Status: Never smoker Past Alcohol Use History: Occasional Past Drug Use History: None Reported - Past Family History Mother Family Medical History: Cancer Additional Family Medical History / Comment(s): lung cancer Father Family Medical History: Diabetes Mellitus Additional Family Medical History / Comment(s): "my dad from a blood clot that traveled from his leg to his lung and also caused a heart attack." Brother(s) Family Medical History: Diabetes Mellitus Sister(s) Additional Family Medical History / Comment(s): "her heart races too fast" General Exam - General Exam Comments Initial Comments: GENERAL: Patient is well-developed and well-nourished. Patient is nontoxic and well- hydrated and is in no acute distress. Patient's pulse ox is 100% on room air ENT: Neck is soft and supple. No significant lymphadenopathy is noted. Oropharynx is clear. Moist mucous membranes. Neck has full range of motion without eliciting any pain. EYES: The sclera were anicteric and conjunctiva were pink and moist. Extraocular movements were intact and pupils were equal round and reactive to light. Eyelids were unremarkable. PULMONARY: Unlabored respirations. Good breath sounds bilaterally. No audible rales rhonchi or wheezing was noted. CARDIOVASCULAR: There is a regular rate and rhythm without any murmurs gallops or rubs. ABDOMEN: Soft and nontender with normal bowel sounds. SKIN: Skin is clear with no lesions or rashes and otherwise unremarkable. NEUROLOGIC: Patient is alert and oriented x3. Cranial nerves II through XII are grossly intact. Motor and sensory are also intact. Normal speech, volume and content. Symmetrical smile. MUSCULOSKELETAL: Normal extremities with adequate strength and full range of motion. LYMPHATICS: No significant lymphadenopathy is noted PSYCHIATRIC: Normal psychiatric evaluation. Limitations: physical limitation Course Vital Signs 07/21/20 13:19 Temperature 97.9 F Pulse Rate 80 Respiratory 18 Rate Blood Pressure 130/64 O2 Sat by Pulse 100 Oximetry Medical Decision Making - Medical Decision Making Chest x-ray shows no acute abnormality. Patient was actually 100% throughout the ED stay on room air. At no time did the patient ever seems short of breath or have an inability to speak secondary to shortness of breath Disposition Clinical Impression: Dyspnea Disposition: HOME SELF-CARE Condition: Good Instructions (If sedation given, give patient instructions): Dyspnea (ED) Is patient prescribed a controlled substance at d/c from ED?: No Referrals: [facility] [Primary Care Provider] - 1-2 days Time of Disposition: 14:36
--- NOTE | 2020-07-21 13:54 | XR ---
EXAMINATION TYPE: XR chest 2V DATE OF EXAM: 07/21/2020 COMPARISON: 07/19/2020 TECHNIQUE: PA and lateral views submitted. HISTORY: Shortness of breath FINDINGS: Diffuse interstitial pattern. Heart size is upper limits of normal. No pleural effusion or pneumothor ax. Degenerative change of the spine. IMPRESSION: 1. Diffuse interstitial pattern correlate for interstitial or viral pneumonitis. Venous congestion is not excluded however there is no pleural fluid which suggest it is less likely.
--- NOTE | 2020-07-21 14:32 | XR ---
EXAMINATION TYPE: XR chest 1V DATE OF EXAM: 07/21/2020 COMPARISON: 07/21/2020 HISTORY: Difficulty breathing TECHNIQUE: Single frontal view of the chest is obtained. FINDINGS: Interstitial pattern persists but is less prominent. No pleural effusion. Heart size promi nent no pneumothorax. No consolidation. IMPRESSION: 1. Mild improvement in the interstitial pattern could be secondary to bronchitis or viral interstitia l pneumonitis. Correlate clinically.
== END 2020-07-21 15:39 | disposition home or self-care (01) ==
LOC: EC 13:11
DX: R06.02 Shortness of breath (principal); F41.9 Anxiety disorder, unspecified; F31.9 Bipolar disorder, unspecified; F41.0 Panic disorder [episodic paroxysmal anxiety]; J44.9 Chronic obstructive pulmonary disease, unspecified; I50.9 Heart failure, unspecified; I11.0 Hypertensive heart disease with heart failure; E11.9 Type 2 diabetes mellitus without complications; K21.9 Gastro-esophageal reflux disease without esophagitis; E78.5 Hyperlipidemia, unspecified; M19.90 Unspecified osteoarthritis, unspecified site; E03.9 Hypothyroidism, unspecified; G25.81 Restless legs syndrome; M10.9 Gout, unspecified; Z79.890 Hormone replacement therapy; Z79.899 Other long term (current) drug therapy; Z79.84 Long term (current) use of oral hypoglycemic drugs; Z88.0 Allergy status to penicillin; Z88.2 Allergy status to sulfonamides; Z88.7 Allergy status to serum and vaccine; Z88.8 Allergy status to other drugs, medicaments and biological substances; Z91.041 Radiographic dye allergy status; Z95.5 Presence of coronary angioplasty implant and graft; Z96.651 Presence of right artificial knee joint; Z98.42 Cataract extraction status, left eye; Z98.41 Cataract extraction status, right eye
CPT/HCPCS: 71045; 71046; 99285

== ENCOUNTER 2020-07-24 13:34 | Emergency (ER) | payer MEDICARE, OTHER ==
[2020-07-24 13:47] VITALS: BP 139/73; PULSE 85; RESP 17; TEMP 98.4
[2020-07-24] MEDS ORDERED: LORazepam 1 MG TAB PO STA (13:48)
--- NOTE | 2020-07-24 14:12 | ED ---
General Adult HPI - General Chief complaint: Anxiety Stated complaint: anxiety Time Seen by Provider: 07/24/20 13:45 Source: patient, EMS, RN notes reviewed, old records reviewed Mode of arrival: EMS Limitations: no limitations - History of Present Illness Initial comments: This is a 60-year-old female presents emergency department stating she has some chest tightness which is typical of her anxiety. Patient states she has no one she's anxious but she took a Seroquel before coming in and hasn't helped. She called EMS. Patient denies any difficulty breathing shortness of breath. Patient denies any chest pressure. Patient denies any recent fever chills or cough. Patient denies headache patient denies numbness weakness. Patient denies lightheadedness or dizziness. Patient denies abdominal pain patient denies any nausea vomiting or diarrhea. - Related Data Home Medications Medication Instructions Recorded Confirmed Carvedilol [Coreg] 25 mg PO BID 06/07/17 07/21/20 Levothyroxine Sodium [Synthroid] 137 mcg PO DAILY 10/20/17 07/21/20 Montelukast [Singulair] 10 mg PO DAILY 06/28/18 07/21/20 DULoxetine HCL [Cymbalta] 60 mg PO BID 08/15/18 07/21/20 rOPINIRole HCL [Requip] 4 mg PO BID 11/18/18 07/21/20 Torsemide [Demadex] 50 mg PO SUTUTHSA 12/15/18 07/21/20 Torsemide [Demadex] 100 mg PO MOWEFR 12/15/18 07/21/20 Acetaminophen [Tylenol 8 Hour] 650 mg PO TID 08/14/19 07/21/20 Loratadine [Claritin] 10 mg PO DAILY 08/14/19 07/21/20 Magnesium Oxide [Mag-Ox] 400 mg PO DAILY 08/14/19 07/21/20 Multivitamins, Thera [Multivitamin 1 tab PO DAILY 08/14/19 07/21/20 (formulary)] Omeprazole 20 mg PO DAILY 08/14/19 07/21/20 allopurinoL [Zyloprim] 100 mg PO DAILY 08/14/19 07/21/20 Ferrous Gluconate 324 mg PO BID 01/19/20 07/21/20 Gabapentin [Neurontin] 400 mg PO TID 01/19/20 07/21/20 Melatonin 10 mg PO HS 01/19/20 07/21/20 Diclofenac Sodium [Voltaren Gel] 4 gram TOPICAL QID PRN 04/03/20 07/21/20 Potassium Chloride ER [K-Dur 10] 10 meq PO DAILY 04/03/20 07/21/20 Cholecalciferol [Vitamin D3 (25 5,000 unit PO DAILY 04/28/20 07/21/20 Mcg = 1000 Iu)] QUEtiapine [SEROquel] 25 mg PO TID 05/12/20 07/21/20 Sennosides/Docusate Sodium [Senna 2 tab PO HS 05/12/20 07/21/20 Plus 8.6-50 mg Tablet] L.acidoph,Paracasei, B.lactis 1 cap PO DAILY 06/02/20 07/21/20 [Probiotic] Loperamide [Imodium] 2 mg PO DAILY PRN 06/02/20 07/21/20 Paliperidone IM [Invega Sustenna] 156 mg IM Q28D 06/13/20 07/21/20 Meloxicam [Mobic] 7.5 mg PO DAILY 06/21/20 07/21/20 Albuterol Inhaler [Ventolin Hfa 2 puff INHALATION RT-Q4H PRN 07/14/20 07/21/20 Inhaler] Lidocaine 4% Cream [Lmx 4] 1 applic TOPICAL DAILY PRN 07/14/20 07/21/20 Mirabegron [Myrbetriq] 25 mg PO DAILY 07/14/20 07/21/20 Nystatin 100,000 Unit/gm Powd 1 applic TOPICAL BID 07/14/20 07/21/20 [Mycostatin Powder] Tolnaftate [Tinactin] 1 applic TOPICAL DAILY PRN 07/14/20 07/21/20 lamoTRIgine [LaMICtal] 50 mg PO DAILY 07/14/20 07/21/20 Allergies Allergy/AdvReac Type Severity Reaction Status Date / Time buspirone [From BuSpar] Allergy Rash/Hives Verified 07/21/20 14:11 haloperidol [From Haldol] Allergy Swelling Verified 07/21/20 14:11 hydroxyzine [From Vistaril] Allergy Rash/Hives Verified 07/21/20 14:11 iodine Allergy Swelling Verified 07/21/20 14:11 Penicillins Allergy Swelling Verified 07/21/20 14:11 prochlorperazine Allergy Rash/Hives Verified 07/21/20 14:11 Sulfa (Sulfonamide Allergy Rash/Hives Verified 07/21/20 14:11 Antibiotics) Tetanus Vaccines and Toxoid Allergy Rash/Hives Verified 07/21/20 14:11 [Tetanus Vaccines & Toxoid] trifluoperazine HCl Allergy Unknown Verified 07/21/20 14:11 [From Stelazine] Review of Systems ROS Statement: Those systems with pertinent positive or pertinent negative responses have been documented in the HPI. ROS Other: All systems not noted in ROS Statement are negative. Past Medical History Past Medical History: Asthma, Heart Failure, COPD, Diabetes Mellitus, GERD/Reflux, Hyperlipidemia, Hypertension, Musculoskeletal Disorder, Osteoarthritis (OA), Pneumonia, Pulmonary Embolus (PE), Thyroid Disorder Additional Past Medical History / Comment(s): chronic low back pain, herniated discs, RLS, leg edema, anemia, gout bilateral feet, hypothyroid, UTIs, hx cellulitis, cataracts, macular degeneration History of Any Multi-Drug Resistant Organisms: None Reported Past Surgical History: Bariatric Surgery, Heart Catheterization, Hernia Repair, Orthopedic Surgery Additional Past Surgical History / Comment(s): Total Right knee replacement, 3 abdominal hernia repairs, left hip repair d/t fracture, gastric bypass/revision, colonoscopy. Past Anesthesia/Blood Transfusion Reactions: No Reported Reaction Past Psychological History: Anxiety, Bipolar, Depression, Panic Disorder, PTSD Smoking Status: Never smoker Past Alcohol Use History: Occasional Past Drug Use History: None Reported - Past Family History Mother Family Medical History: Cancer Additional Family Medical History / Comment(s): lung cancer Father Family Medical History: Diabetes Mellitus Additional Family Medical History / Comment(s): "my dad from a blood clot that traveled from his leg to his lung and also caused a heart attack." Brother(s) Family Medical History: Diabetes Mellitus Sister(s) Additional Family Medical History / Comment(s): "her heart races too fast" General Exam - General Exam Comments Initial Comments: GENERAL: Patient is well-developed and well-nourished. Patient is nontoxic and well- hydrated and is in no acute distress. ENT: Neck is soft and supple. No significant lymphadenopathy is noted. Oropharynx is clear. Moist mucous membranes. Neck has full range of motion without eliciting any pain. EYES: The sclera were anicteric and conjunctiva were pink and moist. Extraocular movements were intact and pupils were equal round and reactive to light. Eyelid s were unremarkable. PULMONARY: Unlabored respirations. Good breath sounds bilaterally. No audible rales rhonchi or wheezing was noted. CARDIOVASCULAR: There is a regular rate and rhythm without any murmurs gallops or rubs. ABDOMEN: Patient is morbidly obese SKIN: Skin is clear with no lesions or rashes and otherwise unremarkable. NEUROLOGIC: Patient is alert and oriented x3. Cranial nerves II through XII are grossly intact. Motor and sensory are also intact. Normal speech, volume and content. Symmetrical smile. MUSCULOSKELETAL: Normal extremities with adequate strength and full range of motion. LYMPHATICS: No significant lymphadenopathy is noted PSYCHIATRIC: Patient appears mildly anxious. Limitations: no limitations Course Vital Signs 07/24/20 13:43 Temperature 98.4 F Pulse Rate 85 Respiratory 17 Rate Blood Pressure 139/73 O2 Sat by Pulse 99 Oximetry Medical Decision Making - Medical Decision Making EKG shows normal sinus rhythm at 81 bpm NC interval 236 QRS is 90 QT interval 370 QTC is 439 per patient's EKG shows no ST segment elevation or depression. I will back in the room after patient received Ativan she said all of her symptoms have resolved and she was confident that this episode was anxiety only. Disposition Clinical Impression: Acute anxiety Disposition: HOME SELF-CARE Instructions (If sedation given, give patient instructions): Generalized Anxiety Disorder (ED) Is patient prescribed a controlled substance at d/c from ED?: No Referrals: [facility] [Primary Care Provider] - 1-2 days Time of Disposition: 14:53
== END 2020-07-24 15:10 | disposition home or self-care (01) ==
LOC: EC 13:34
DX: F41.9 Anxiety disorder, unspecified (principal); J44.9 Chronic obstructive pulmonary disease, unspecified; I11.0 Hypertensive heart disease with heart failure; I50.9 Heart failure, unspecified; M19.90 Unspecified osteoarthritis, unspecified site; G89.29 Other chronic pain; M54.5 Low back pain; K21.9 Gastro-esophageal reflux disease without esophagitis; E03.9 Hypothyroidism, unspecified; M10.9 Gout, unspecified; G25.81 Restless legs syndrome; D64.9 Anemia, unspecified; F32.9 Major depressive disorder, single episode, unspecified; F43.10 Post-traumatic stress disorder, unspecified; Z79.890 Hormone replacement therapy; Z79.899 Other long term (current) drug therapy; Z79.891 Long term (current) use of opiate analgesic; Z79.1 Long term (current) use of non-steroidal anti-inflammatories (NSAID); Z88.8 Allergy status to other drugs, medicaments and biological substances; Z91.048 Other nonmedicinal substance allergy status; Z88.0 Allergy status to penicillin; Z88.2 Allergy status to sulfonamides; Z88.7 Allergy status to serum and vaccine; Z86.711 Personal history of pulmonary embolism; Z96.651 Presence of right artificial knee joint
CPT/HCPCS: 93005; 99284

== ENCOUNTER 2020-07-28 13:50 | Emergency (ER) | payer MEDICARE, OTHER ==
[2020-07-28 13:55] VITALS: BP 154/64; PULSE 99; RESP 20; TEMP 97.8
[2020-07-28] MEDS ORDERED: KETOROLAC 15 MG/ML 1 ML VIAL IM STA (14:12)
--- NOTE | 2020-07-28 14:28 | ED ---
General Adult HPI - General Chief complaint: Extremity Problem,Nontraumatic Stated complaint: Hip pain Time Seen by Provider: 07/28/20 14:03 Source: patient, RN notes reviewed Mode of arrival: wheelchair Limitations: no limitations - History of Present Illness Initial comments: 60-year-old female well known to this emergency room presents for left hip pain. Patient states it has been bothering her for quite some time, possibly months. Patient reports it feels "like the bone is splitting." Patient does not have any fevers or chills at home. Patient denies any injury to the hip. She states it has been hurting worse when walking. She denies any back pain. Denies any radiating pain down the leg. Denies weakness of the leg. patient does have left hip replacement in 2016 after a fracture. Patient has no other complaints at this time including shortness of breath, chest pain, abdominal pain, nausea or vomiting, headache, or visual changes - Related Data Home Medications Medication Instructions Recorded Confirmed Carvedilol [Coreg] 25 mg PO BID 06/07/17 07/21/20 Levothyroxine Sodium [Synthroid] 137 mcg PO DAILY 10/20/17 07/21/20 Montelukast [Singulair] 10 mg PO DAILY 06/28/18 07/21/20 DULoxetine HCL [Cymbalta] 60 mg PO BID 08/15/18 07/21/20 rOPINIRole HCL [Requip] 4 mg PO BID 11/18/18 07/21/20 Torsemide [Demadex] 50 mg PO SUTUTHSA 12/15/18 07/21/20 Torsemide [Demadex] 100 mg PO MOWEFR 12/15/18 07/21/20 Acetaminophen [Tylenol 8 Hour] 650 mg PO TID 08/14/19 07/21/20 Loratadine [Claritin] 10 mg PO DAILY 08/14/19 07/21/20 Magnesium Oxide [Mag-Ox] 400 mg PO DAILY 08/14/19 07/21/20 Multivitamins, Thera [Multivitamin 1 tab PO DAILY 08/14/19 07/21/20 (formulary)] Omeprazole 20 mg PO DAILY 08/14/19 07/21/20 allopurinoL [Zyloprim] 100 mg PO DAILY 08/14/19 07/21/20 Ferrous Gluconate 324 mg PO BID 01/19/20 07/21/20 Gabapentin [Neurontin] 400 mg PO TID 01/19/20 07/21/20 Melatonin 10 mg PO HS 01/19/20 07/21/20 Diclofenac Sodium [Voltaren Gel] 4 gram TOPICAL QID PRN 04/03/20 07/21/20 Potassium Chloride ER [K-Dur 10] 10 meq PO DAILY 04/03/20 07/21/20 Cholecalciferol [Vitamin D3 (25 5,000 unit PO DAILY 04/28/20 07/21/20 Mcg = 1000 Iu)] QUEtiapine [SEROquel] 25 mg PO TID 05/12/20 07/21/20 Sennosides/Docusate Sodium [Senna 2 tab PO HS 05/12/20 07/21/20 Plus 8.6-50 mg Tablet] L.acidoph,Paracasei, B.lactis 1 cap PO DAILY 06/02/20 07/21/20 [Probiotic] Loperamide [Imodium] 2 mg PO DAILY PRN 06/02/20 07/21/20 Paliperidone IM [Invega Sustenna] 156 mg IM Q28D 06/13/20 07/21/20 Meloxicam [Mobic] 7.5 mg PO DAILY 06/21/20 07/21/20 Albuterol Inhaler [Ventolin Hfa 2 puff INHALATION RT-Q4H PRN 07/14/20 07/21/20 Inhaler] Lidocaine 4% Cream [Lmx 4] 1 applic TOPICAL DAILY PRN 07/14/20 07/21/20 Mirabegron [Myrbetriq] 25 mg PO DAILY 07/14/20 07/21/20 Nystatin 100,000 Unit/gm Powd 1 applic TOPICAL BID 07/14/20 07/21/20 [Mycostatin Powder] Tolnaftate [Tinactin] 1 applic TOPICAL DAILY PRN 07/14/20 07/21/20 lamoTRIgine [LaMICtal] 50 mg PO DAILY 07/14/20 07/21/20 Allergies Allergy/AdvReac Type Severity Reaction Status Date / Time buspirone [From BuSpar] Allergy Rash/Hives Verified 07/28/20 13:55 haloperidol [From Haldol] Allergy Swelling Verified 07/28/20 13:55 hydroxyzine [From Vistaril] Allergy Rash/Hives Verified 07/28/20 13:55 iodine Allergy Swelling Verified 07/28/20 13:55 Penicillins Allergy Swelling Verified 07/28/20 13:55 prochlorperazine Allergy Rash/Hives Verified 07/28/20 13:55 Sulfa (Sulfonamide Allergy Rash/Hives Verified 07/28/20 13:55 Antibiotics) Tetanus Vaccines and Toxoid Allergy Rash/Hives Verified 07/28/20 13:55 [Tetanus Vaccines & Toxoid] trifluoperazine HCl Allergy Unknown Verified 07/28/20 13:55 [From Stelazine] Review of Systems ROS Statement: Those systems with pertinent positive or pertinent negative responses have been documented in the HPI. ROS Other: All systems not noted in ROS Statement are negative. Past Medical History Past Medical History: Asthma, Heart Failure, COPD, Diabetes Mellitus, GERD/Reflux, Hyperlipidemia, Hypertension, Musculoskeletal Disorder, Osteoarthritis (OA), Pneumonia, Pulmonary Embolus (PE), Thyroid Disorder Additional Past Medical History / Comment(s): chronic low back pain, herniated discs, RLS, leg edema, anemia, gout bilateral feet, hypothyroid, UTIs, hx cellulitis, cataracts, macular degeneration History of Any Multi-Drug Resistant Organisms: None Reported Past Surgical History: Bariatric Surgery, Heart Catheterization, Hernia Repair, Orthopedic Surgery Additional Past Surgical History / Comment(s): Total Right knee replacement, 3 abdominal hernia repairs, left hip repair d/t fracture, gastric bypass/revision, colonoscopy. Past Anesthesia/Blood Transfusion Reactions: No Reported Reaction Past Psychological History: Anxiety, Bipolar, Depression, Panic Disorder, PTSD Smoking Status: Never smoker Past Alcohol Use History: Occasional Past Drug Use History: None Reported - Past Family History Mother Family Medical History: Cancer Additional Family Medical History / Comment(s): lung cancer Father Family Medical History: Diabetes Mellitus Additional Family Medical History / Comment(s): "my dad from a blood clot that traveled from his leg to his lung and also caused a heart attack." Brother(s) Family Medical History: Diabetes Mellitus Sister(s) Additional Family Medical History / Comment(s): "her heart races too fast" General Exam Limitations: no limitations General appearance: alert, in no apparent distress Head exam: Present: atraumatic, normocephalic, normal inspection Eye exam: Present: normal appearance, PERRL, EOMI. Absent: scleral icterus, conjunctival injection, periorbital swelling ENT exam: Present: normal exam, mucous membranes moist Neck exam: Present: normal inspection, full ROM Respiratory exam: Present: normal lung sounds bilaterally. Absent: respiratory distress, wheezes, rales, rhonchi, stridor Cardiovascular Exam: Present: regular rate, normal rhythm, normal heart sounds. Absent: systolic murmur, diastolic murmur, rubs, gallop, clicks GI/Abdominal exam: Present: soft, normal bowel sounds. Absent: distended, tenderness, guarding, rebound, rigid Extremities exam: Present: full ROM (Full range motion of the left hip including full flexion and extension), normal capillary refill (Capillary refill less than 2 seconds, and DP pulse 2+. Sensation intact.). Absent: tenderness (No tenderness noted of the left hip.), pedal edema, joint swelling, calf tenderness (no calf tenderness or redness, no edema negative roosevelt), other (No redness or sign of infection noted on the lateral aspect of the hip. skin exam of left lower extremity normal) Course Vital Signs 07/28/20 13:53 Temperature 97.8 F Pulse Rate 99 Respiratory 20 Rate Blood Pressure 154/64 O2 Sat by Pulse 100 Oximetry Medical Decision Making - Medical Decision Making Patient presents for left hip pain. Pain has been on and off for quite some time. Neurovascular status intact in left portion be. No swelling or erythema. No evidence of DVT. Patient is a full range of motion of the left hip however Flexion does elicit this pain. X-ray of the left hip shows no acute fracture or dislocation in the pelvis or hip. No significant change from prior. She was given Toradol. Patient is ambulatory in the ER. At this time patient can be discharged home. She will follow up with Dr. Momin who did this replacement in 2016. She will return here for any worsening symptoms. Disposition Clinical Impression: Hip pain, left Disposition: HOME SELF-CARE Condition: Good Instructions (If sedation given, give patient instructions): Hip Pain (ED) Additional Instructions: Please take Tylenol for pain. Please follow-up with your orthopedic surgeon for hip pain as well as primary care. Return to the emergency room for any worsening symptoms. Is patient prescribed a controlled substance at d/c from ED?: No Referrals: [facility] [Primary Care Provider] - 1-2 days Deirk Momin MD [STAFF PHYSICIAN] - 1-2 days Time of Disposition: 15:11
--- NOTE | 2020-07-28 14:54 | XR ---
EXAMINATION TYPE: XR Hip LT and AP Pelvis DATE OF EXAM: 07/28/2020 COMPARISON: Pelvic and left hip x-ray July 16, 2018 HISTORY: Twisting injury with pain TECHNIQUE: A single AP view of the pelvis is obtained. Two views of the left hip are obtained. FINDINGS: There is no acute fracture/dislocation evident in the pelvis. The sacroiliac joints appea r stable and symmetric. Stable [id number] axial joint space loss and mild acetabular spurring in both hips. Pubic symphysis is intact. Single left-sided pelvic phlebolith. Two views of left hip show no acute fracture or dislocation. Metallic hardware from left hip open red uction internal fixation is stable and satisfactory in position. The overlying soft tissue is unrema rkable. IMPRESSION: There is no acute fracture or dislocation in the pelvis or left hip. No significant salas ge from prior.
== END 2020-07-28 15:37 | disposition home or self-care (01) ==
LOC: EC 13:50
DX: M25.552 Pain in left hip (principal); I11.0 Hypertensive heart disease with heart failure; J44.9 Chronic obstructive pulmonary disease, unspecified; I50.9 Heart failure, unspecified; G89.29 Other chronic pain; M54.5 Low back pain; M19.90 Unspecified osteoarthritis, unspecified site; G25.81 Restless legs syndrome; E03.9 Hypothyroidism, unspecified; K21.9 Gastro-esophageal reflux disease without esophagitis; M10.9 Gout, unspecified; D64.9 Anemia, unspecified; F41.9 Anxiety disorder, unspecified; F32.9 Major depressive disorder, single episode, unspecified; F43.10 Post-traumatic stress disorder, unspecified; Z79.899 Other long term (current) drug therapy; Z79.890 Hormone replacement therapy; Z79.1 Long term (current) use of non-steroidal anti-inflammatories (NSAID); Z88.8 Allergy status to other drugs, medicaments and biological substances; Z91.048 Other nonmedicinal substance allergy status; Z88.0 Allergy status to penicillin; Z88.2 Allergy status to sulfonamides; Z88.7 Allergy status to serum and vaccine; Z86.711 Personal history of pulmonary embolism; Z96.642 Presence of left artificial hip joint; Z96.651 Presence of right artificial knee joint
CPT/HCPCS: 99283 ×2; 96372 ×2; 73502; J1885

== ENCOUNTER 2020-07-30 15:47 | Observation (INO) | payer MEDICARE, OTHER ==
--- NOTE | 2020-07-30 16:01 | ED ---
General Adult HPI - General Chief complaint: Chest Pain Stated complaint: Chest Pain Time Seen by Provider: 07/30/20 15:50 Source: EMS Mode of arrival: EMS Limitations: no limitations - History of Present Illness Initial comments: Dictation was produced using [employer] dictation software. please excuse any grammatical, word or spelling errors. This patient was cared for during a federal and state declared state of emergency secondary to Covid 19 Chief Complaint: 60-year-old female well-known to emergency department for multiple psychiatric complaints presents today for chest pain History of Present Illness: [id number] she is well-known to emergency department for multiple visitations for psychiatric issues. She is here today for 2 hours of chest pain. Patient states the substernal pressure. She denies any radiation to shoulders jaw or extremities. Denies any diaphoresis however she did complain of some mild associated nausea. EMS was called patient given nitroglycerin and aspirin with slight relief of her symptoms. She states she has history of cardiac disease. Patient has any constitutional symptoms. No co ugh. Symptoms not worse with inspiration. The ROS documented in this emergency department record has been reviewed and confirmed by me. Those systems with pertinent positive or negative responses have been documented in the HPI. All other systems are other negative and/or noncontributory. PHYSICAL EXAM: General Impression: Alert and oriented x3, not in acute distress HEENT: Normocephalic atraumatic, extra-ocular movements intact, pupils equal and reactive to light bilaterally, mucous membranes moist. Cardiovascular: Heart regular rate and rhythm Chest: Able to complete full sentences, no retractions, no tachypnea Abdomen: abdomen soft, non-tender, non-distended, no organomegaly Musculoskeletal: Pulses present and equal in all extremities, no peripheral edema Motor: no focal deficits noted Neurological: CN II-XII grossly intact, no focal motor or sensory deficits noted Skin: Intact with no visualized rashes Psych: Normal affect and mood ED course: 60-year-old female presents with chest pain concerning for acute coronary syndrome. She did receive aspirin and nitroglycerin from prehospital providers with improvement of symptoms. Vital signs upon arrival shows 93% on room air. Chart review was performed. Patient had cardiac cath performed in June 2018 showing normal coronary angiograms. Laboratory evaluation obtained. CBC unremarkable. Coag panel is negative. Met abolic panel shows slight elevation of renal markers. Patient given intravenous fluids. First troponin is negative. Chest x-ray is nonacute. There is a possible new infiltrate in the right lower lobe compared to old exam. Concern patient's labs and vital signs likely not bacterial pneumonia. Pending rapid coronavirus test. Patient is not hypoxic she's not showing signs of respiratory distress. Patient received aspirin prehospital. Patient case was discussed with Dr. Turcios was went except patient's care. Cardiology to be on consult. EKG interpretation: Ventricular rate 82, normal sinus rhythm,. 1:30, QRS 94, QTc 441. No TX prolongation, no QTC prolongation, no ST or T-wave changes noted. EKG compared to July 24 2020 showing no changes. Overall, this EKG is unre markable - Related Data Home Medications Medication Instructions Recorded Confirmed Carvedilol [Coreg] 25 mg PO BID 06/07/17 07/21/20 Levothyroxine Sodium [Synthroid] 137 mcg PO DAILY 10/20/17 07/21/20 Montelukast [Singulair] 10 mg PO DAILY 06/28/18 07/21/20 DULoxetine HCL [Cymbalta] 60 mg PO BID 08/15/18 07/21/20 rOPINIRole HCL [Requip] 4 mg PO BID 11/18/18 07/21/20 Torsemide [Demadex] 50 mg PO SUTUTHSA 12/15/18 07/21/20 Torsemide [Demadex] 100 mg PO MOWEFR 12/15/18 07/21/20 Acetaminophen [Tylenol 8 Hour] 650 mg PO TID 08/14/19 07/21/20 Loratadine [Claritin] 10 mg PO DAILY 08/14/19 07/21/20 Magnesium Oxide [Mag-Ox] 400 mg PO DAILY 08/14/19 07/21/20 Multivitamins, Thera [Multivitamin 1 tab PO DAILY 08/14/19 07/21/20 (formulary)] Omeprazole 20 mg PO DAILY 08/14/19 07/21/20 allopurinoL [Zyloprim] 100 mg PO DAILY 08/14/19 07/21/20 Ferrous Gluconate 324 mg PO BID 01/19/20 07/21/20 Gabapentin [Neurontin] 400 mg PO TID 01/19/20 07/21/20 Melatonin 10 mg PO HS 01/19/20 07/21/20 Diclofenac Sodium [Voltaren Gel] 4 gram TOPICAL QID PRN 04/03/20 07/21/20 Potassium Chloride ER [K-Dur 10] 10 meq PO DAILY 04/03/20 07/21/20 Cholecalciferol [Vitamin D3 (25 5,000 unit PO DAILY 04/28/20 07/21/20 Mcg = 1000 Iu)] QUEtiapine [SEROquel] 25 mg PO TID 05/12/20 07/21/20 Sennosides/Docusate Sodium [Senna 2 tab PO HS 05/12/20 07/21/20 Plus 8.6-50 mg Tablet] L.acidoph,Paracasei, B.lactis 1 cap PO DAILY 06/02/20 07/21/20 [Probiotic] Loperamide [Imodium] 2 mg PO DAILY PRN 06/02/20 07/21/20 Paliperidone IM [Invega Sustenna] 156 mg IM Q28D 06/13/20 07/21/20 Meloxicam [Mobic] 7.5 mg PO DAILY 06/21/20 07/21/20 Albuterol Inhaler [Ventolin Hfa 2 puff INHALATION RT-Q4H PRN 07/14/20 07/21/20 Inhaler] Lidocaine 4% Cream [Lmx 4] 1 applic TOPICAL DAILY PRN 07/14/20 07/21/20 Mirabegron [Myrbetriq] 25 mg PO DAILY 07/14/20 07/21/20 Nystatin 100,000 Unit/gm Powd 1 applic TOPICAL BID 07/14/20 07/21/20 [Mycostatin Powder] Tolnaftate [Tinactin] 1 applic TOPICAL DAILY PRN 07/14/20 07/21/20 lamoTRIgine [LaMICtal] 50 mg PO DAILY 07/14/20 07/21/20 Allergies Allergy/AdvReac Type Severity Reaction Status Date / Time buspirone [From BuSpar] Allergy Rash/Hives Verified 07/28/20 13:55 haloperidol [From Haldol] Allergy Swelling Verified 07/28/20 13:55 hydroxyzine [From Vistaril] Allergy Rash/Hives Verified 07/28/20 13:55 iodine Allergy Swelling Verified 07/28/20 13:55 Penicillins Allergy Swelling Verified 07/28/20 13:55 prochlorperazine Allergy Rash/Hives Verified 07/28/20 13:55 Sulfa (Sulfonamide Allergy Rash/Hives Verified 07/28/20 13:55 Antibiotics) Tetanus Vaccines and Toxoid Allergy Rash/Hives Verified 07/28/20 13:55 [Tetanus Vaccines & Toxoid] trifluoperazine HCl Allergy Unknown Verified 07/28/20 13:55 [From Stelazine] Review of Systems ROS Statement: Those systems with pertinent positive or pertinent negative responses have been documented in the HPI. ROS Other: All systems not noted in ROS Statement are negative. Past Medical History Past Medical History: Asthma, Heart Failure, COPD, Diabetes Mellitus, GERD/Reflux, Hyperlipidemia, Hypertension, Musculoskeletal Disorder, Osteoarthritis (OA), Pneumonia, Pulmonary Embolus (PE), Thyroid Disorder Additional Past Medical History / Comment(s): chronic low back pain, herniated discs, RLS, leg edema, anemia, gout bilateral feet, hypothyroid, UTIs, hx cellulitis, cataracts, macular degeneration History of Any Multi-Drug Resistant Organisms: None Reported Past Surgical History: Bariatric Surgery, Heart Catheterization, Hernia Repair, Orthopedic Surgery Additional Past Surgical History / Comment(s): Total Right knee replacement, 3 abdominal hernia repairs, left hip repair d/t fracture, gastric bypass/revision, colonoscopy. Past Anesthesia/Blood Transfusion Reactions: No Reported Reaction Past Psychological History: Anxiety, Bipolar, Depression, Panic Disorder, PTSD Smoking Status: Never smoker Past Alcohol Use History: Occasional Past Drug Use History: None Reported - Past Family History Mother Family Medical History: Cancer Additional Family Medical History / Comment(s): lung cancer Father Family Medical History: Diabetes Mellitus Additional Family Medical History / Comment(s): "my dad from a blood clot that traveled from his leg to his lung and also caused a heart attack." Brother(s) Family Medical History: Diabetes Mellitus Sister(s) Additional Family Medical History / Comment(s): "her heart races too fast" General Exam Limitations: no limitations Course Vital Signs 07/30/20 15:53 Temperature 98.3 F Pulse Rate 91 Respiratory 16 Rate Blood Pressure 124/74 O2 Sat by Pulse 93 L Oximetry Medical Decision Making - Lab Data Result diagrams: 07/30/20 16:00 07/30/20 16:04 Lab Results 07/30/20 07/30/20 07/30/20 Range/Units 16:00 16:00 16:04 WBC 6.5 (3.8-10.6) k/uL RBC 3.77 L (3.80-5.40) m/uL Hgb 10.7 L (11.4-16.0) gm/dL Hct 33.6 L (34.0-46.0) % MCV 89.1 (80.0-100.0) fL MCH 28.4 (25.0-35.0) pg MCHC 31.9 (31.0-37.0) g/dL RDW 14.9 (11.5-15.5) % Plt Count 312 (150-450) k/uL MPV 7.9 Neutrophils % 63 % Lymphocytes % 27 % Monocytes % 5 % Eosinophils % 2 % Basophils % 0 % Neutrophils # 4.1 (1.3-7.7) k/uL Lymphocytes # 1.7 (1.0-4.8) k/uL Monocytes # 0.4 (0-1.0) k/uL Eosinophils # 0.1 (0-0.7) k/uL Basophils # 0.0 (0-0.2) k/uL PT 9.5 (9.0-12.0) sec INR 0.9 (<1.2) APTT 25.2 (22.0-30.0) sec Sodium 137 (137-145) mmol/L Potassium 4.0 (3.5-5.1) mmol/L Chloride 102 (98-107) mmol/L Carbon Dioxide 28 (22-30) mmol/L Anion Gap 7 mmol/L BUN 45 H (7-17) mg/dL Creatinine 1.80 H (0.52-1.04) mg/dL Est GFR (CKD-EPI)AfAm 35 (>60 ml/min/1.73 sqM) Est GFR (CKD-EPI)NonAf 30 (>60 ml/min/1.73 sqM) Glucose 125 H (74-99) mg/dL Calcium 9.1 (8.4-10.2) mg/dL Magnesium 2.0 (1.6-2.3) mg/dL Total Bilirubin 0.3 (0.2-1.3) mg/dL AST 26 (14-36) U/L ALT 17 (4-34) U/L Alkaline Phosphatase 96 (38-126) U/L Troponin I (0.000-0.034) ng/mL Total Protein 6.5 (6.3-8.2) g/dL Albumin 3.8 (3.5-5.0) g/dL 07/30/20 Range/Units 16:04 WBC (3.8-10.6) k/uL RBC (3.80-5.40) m/uL Hgb (11.4-16.0) gm/dL Hct (34.0-46.0) % MCV (80.0-100.0) fL MCH (25.0-35.0) pg MCHC (31.0-37.0) g/dL RDW (11.5-15.5) % Plt Count (150-450) k/uL MPV Neutrophils % % Lymphocytes % % Monocytes % % Eosinophils % % Basophils % % Neutrophils # (1.3-7.7) k/uL Lymphocytes # (1.0-4.8) k/uL Monocytes # (0-1.0) k/uL Eosinophils # (0-0.7) k/uL Basophils # (0-0.2) k/uL PT (9.0-12.0) sec INR (<1.2) APTT (22.0-30.0) sec Sodium (137-145) mmol/L Potassium (3.5-5.1) mmol/L Chloride (98-107) mmol/L Carbon Dioxide (22-30) mmol/L Anion Gap mmol/L BUN (7-17) mg/dL Creatinine (0.52-1.04) mg/dL Est GFR (CKD-EPI)AfAm (>60 ml/min/1.73 sqM) Est GFR (CKD-EPI)NonAf (>60 ml/min/1.73 sqM) Glucose (74-99) mg/dL Calcium (8.4-10.2) mg/dL Magnesium (1.6-2.3) mg/dL Total Bilirubin (0.2-1.3) mg/dL AST (14-36) U/L ALT (4-34) U/L Alkaline Phosphatase (38-126) U/L Troponin I <0.012 (0.000-0.034) ng/mL Total Protein (6.3-8.2) g/dL Albumin (3.5-5.0) g/dL Disposition Clinical Impression: Chest pain Disposition: ADMITTED IP TO THIS HOSP Condition: Fair Referrals: [facility] [Primary Care Provider] - 1-2 days Decision Time: 17:22
[2020-07-30 16:25] LABS: Albumin 3.8 g/dL (3.5-5.0); Calcium 9.1 mg/dL (8.4-10.2); Total Bilirubin 0.3 mg/dL (0.2-1.3); Total Protein 6.5 g/dL (6.3-8.2)
[2020-07-30 16:25] LABS: INR 0.9 (<1.2); Partial Thromboplastin Time 25.2 sec (22.0-30.0); Prothrombin Time 9.5 sec (9.0-12.0)
[2020-07-30 16:29] LABS: Basophils % (A) 0 %; Eosinophils # (A) 0.1 k/uL (0-0.7); Eosinophils % (A) 2 %; HCT 33.6 % (34.0-46.0); HGB 10.7 gm/dL (11.4-16.0); Lymphocytes # (A) 1.7 k/uL (1.0-4.8); Lymphocytes % (A) 27 %; MCH 28.4 pg (25.0-35.0); MCHC 31.9 g/dL (31.0-37.0); MCV 89.1 fL (80.0-100.0); Mean Platelet Volume 7.9; Monocytes # (A) 0.4 k/uL (0-1.0); Monocytes % (A) 5 %; Neutrophils # (A) 4.1 k/uL (1.3-7.7); Neutrophils % (A) 63 %; Platelet Count 312 k/uL (150-450); RBC 3.77 m/uL (3.80-5.40); RDW 14.9 % (11.5-15.5); WBC 6.5 k/uL (3.8-10.6)
--- NOTE | 2020-07-30 16:53 | XR ---
EXAMINATION TYPE: XR chest 1V portable DATE OF EXAM: 07/30/2020 COMPARISON: 07/21/2020 HISTORY: Short of breath. Chest pain TECHNIQUE: FINDINGS: Exam limited by patient's size. There is no gross heart failure. Costophrenic angles are cl ear. There is possible infiltrate in the right lower lobe at the right medial lung base. IMPRESSION: Limited exam shows possible new infiltrate in the medial right lower lobe compared to old exam.
[2020-07-30] MEDS ORDERED: SODIUM CHLORIDE 0.9% 1,000 ML IV STA (16:57)
[2020-07-30] MEDS ORDERED: NITROGLYCERIN SL TABS 0.4 MG TAB SUBLINGUAL PRN (17:18)
[2020-07-30] MEDS ORDERED: ONDANSETRON 4 MG/2 ML VIAL IVP STA (17:25)
[2020-07-30] MEDS: ACETAMINOPHEN TAB 500 MG TAB PO PRN (23:17)
[2020-07-31 07:18] LABS: Cholesterol 274 mg/dL (<200); HDL Cholesterol 70 mg/dL (40-60); LDL Cholesterol,Calculated 164 mg/dL (0-99); Triglycerides 201 mg/dL (<150)
[2020-07-31] MEDS ORDERED: ASPIRIN 325 MG TAB PO SCH (09:00)
[2020-07-31] MEDS ORDERED: rOPINIRole HCL 4 MG TABLET PO SCH (09:30)
[2020-07-31] MEDS ORDERED: ATORVASTATIN 40 MG TAB PO SCH (09:30)
[2020-07-31] MEDS ORDERED: lamoTRIgine 100 MG TAB PO SCH (09:30)
[2020-07-31] MEDS ORDERED: MELOXICAM 7.5 MG TAB PO SCH (09:30)
[2020-07-31] MEDS ORDERED: TORSEMIDE 20 MG TAB PO SCH (09:30)
[2020-07-31] MEDS ORDERED: allopurinoL 100 MG TAB PO SCH (09:30)
[2020-07-31] MEDS ORDERED: MONTELUKAST 10 MG TAB PO SCH (09:30)
[2020-07-31] MEDS ORDERED: RIVAROXABAN 10 MG TAB PO SCH (09:30)
[2020-07-31] MEDS ORDERED: LEVOTHYROXINE 137 MCG TAB PO SCH (09:30)
[2020-07-31] MEDS ORDERED: PANTOPRAZOLE 40 MG TABLET PO SCH (10:00)
--- NOTE | 2020-07-31 10:16 | P.CRDCN ---
History of Present Illness Consult date: 07/31/20 Requesting physician: Gina Turcios Reason for Consult (text): chest pain Chief complaint: chest pessure History of present illness: This is a 60-year-old female patient who follows with Dr. Feldman in the office. She has a history of valvular heart disease, diastolic congestive heart failure, and morbid obesity as well as psychiatric issues. She has a history of many ER visits in the recent past. He presented this admission with complaints of chest pressure, left-sided, constant and lasting for hours in fact at the time of my exam patient continues to complain of the same chest pressure that she had upon arrival to the emergency department. She also complains of nausea, abdominal pain, shortness of breath, palpitations, edema, PND, nocturia, indigestion, dizziness, and near syncope. During a previous admission she underwent echocardiogram showed moderate to severe aortic stenosis, not seen in previous echoes. She has not followed up with Dr. Feldman in the office since that time. Laboratory values are reviewed and show potassium 4.0, BUN 45, creatinine 1.8, troponins negative 3 and elevated lipids. Negative for COVID-19. EKG at admission showed sinus rhythm with no evidence of ischemia. Chest x-ray on the limited shows possible new infiltrate in the medial right lower lobe compared to old exam. Upon examination the patient is resting in bed with no obvious signs of distress. Again she does complain of multiple complaints as listed above. Past Medical History Past Medical History: Asthma, Heart Failure, COPD, Diabetes Mellitus, GERD/Reflux, Hyperlipidemia, Hypertension, Musculoskeletal Disorder, Osteoarthritis (OA), Pneumonia, Pulmonary Embolus (PE), Thyroid Disorder Additional Past Medical History / Comment(s): chronic low back pain, herniated discs, RLS, leg edema, anemia, gout bilateral feet, hypothyroid, UTIs, hx cellulitis, cataracts, macular degeneration, DM (diet controlled) History of Any Multi-Drug Resistant Organisms: None Reported Past Surgical History: Bariatric Surgery, Heart Catheterization, Hernia Repair, Orthopedic Surgery Additional Past Surgical History / Comment(s): Total Right knee replacement, 3 abdominal hernia repairs, left hip repair d/t fracture, gastric bypass/revision, colonoscopy. Past Anesthesia/Blood Transfusion Reactions: No Reported Reaction Past Psychological History: Anxiety, Bipolar, Depression, Panic Disorder, PTSD Additional Psychological History / Comment(s): Borderline personality disorder. She states she sees a psychiatrist at [facility] and has a case investigator there. Pt has a legal guardian , Taty Mosher. She cannot drive, she either takes the bus to appts. She uses a walker to ambulate. She has a glucometer but no longer has to monitor her blood sugars/is out of equipment. Pt states she recently attempted suicide with OD of tramadol. She states she no longer feels suicidal and has no suicidal thoughts/plans. Smoking Status: Never smoker Past Alcohol Use History: Occasional Additional Past Alcohol Use History / Comment(s): In -' was an everyday drinker Past Drug Use History: None Reported - Past Family History Mother Family Medical History: Cancer Additional Family Medical History / Comment(s): lung cancer Father Family Medical History: Diabetes Mellitus Additional Family Medical History / Comment(s): "my dad from a blood clot that traveled from his leg to his lung and also caused a heart attack." Brother(s) Family Medical History: Diabetes Mellitus Sister(s) Additional Family Medical History / Comment(s): "her heart races too fast" Medications and Allergies Home Medications Medication Instructions Recorded Confirmed Type Carvedilol [Coreg] 25 mg PO BID 06/07/17 07/30/20 History Levothyroxine Sodium [Synthroid] 137 mcg PO DAILY 10/20/17 07/30/20 History Montelukast [Singulair] 10 mg PO DAILY 06/28/18 07/30/20 History DULoxetine HCL [Cymbalta] 60 mg PO BID 08/15/18 07/30/20 History rOPINIRole HCL [Requip] 4 mg PO BID 11/18/18 07/30/20 History Torsemide [Demadex] 50 mg PO SUTUTHSA 12/15/18 07/30/20 History Torsemide [Demadex] 100 mg PO MOWEFR 12/15/18 07/30/20 History Acetaminophen [Tylenol 8 Hour] 650 mg PO TID 08/14/19 07/30/20 History Loratadine [Claritin] 10 mg PO DAILY 08/14/19 07/30/20 History Magnesium Oxide [Mag-Ox] 400 mg PO DAILY 08/14/19 07/30/20 History Multivitamins, Thera [Multivitamin 1 tab PO DAILY 08/14/19 07/30/20 History (formulary)] Omeprazole 20 mg PO DAILY 08/14/19 07/30/20 History allopurinoL [Zyloprim] 100 mg PO DAILY 08/14/19 07/30/20 History Ferrous Gluconate 324 mg PO BID 01/19/20 07/30/20 History Gabapentin [Neurontin] 400 mg PO TID 01/19/20 07/30/20 History Melatonin 10 mg PO HS 01/19/20 07/30/20 History Diclofenac Sodium [Voltaren Gel] 4 gram TOPICAL QID PRN 04/03/20 07/30/20 History Potassium Chloride ER [K-Dur 10] 10 meq PO DAILY 04/03/20 07/30/20 History Cholecalciferol [Vitamin D3 (25 5,000 unit PO DAILY 04/28/20 07/30/20 History Mcg = 1000 Iu)] QUEtiapine [SEROquel] 25 mg PO TID 05/12/20 07/30/20 History Sennosides/Docusate Sodium [Senna 2 tab PO HS 05/12/20 07/30/20 History Plus 8.6-50 mg Tablet] L.acidoph,Paracasei, B.lactis 1 cap PO DAILY 06/02/20 07/30/20 History [Probiotic] Loperamide [Imodium] 2 mg PO DAILY PRN 06/02/20 07/30/20 History Paliperidone IM [Invega Sustenna] 156 mg IM Q28D 06/13/20 07/30/20 History Meloxicam [Mobic] 7.5 mg PO DAILY 06/21/20 07/30/20 History Albuterol Inhaler [Ventolin Hfa 2 puff INHALATION RT-Q4H PRN 07/14/20 07/30/20 History Inhaler] Lidocaine 4% Cream [Lmx 4] 1 applic TOPICAL DAILY PRN 07/14/20 07/30/20 History Mirabegron [Myrbetriq] 25 mg PO DAILY 07/14/20 07/30/20 History Nystatin 100,000 Unit/gm Powd 1 applic TOPICAL BID 07/14/20 07/30/20 History [Mycostatin Powder] Tolnaftate [Tinactin] 1 applic TOPICAL DAILY PRN 07/14/20 07/30/20 History Rivaroxaban [Xarelto] 10 mg PO DAILY 07/30/20 07/30/20 History lamoTRIgine [LaMICtal] See Taper PO DAILY 07/30/20 07/30/20 History Allergies Allergy/AdvReac Type Severity Reaction Status Date / Time buspirone [From BuSpar] Allergy Rash/Hives Verified 07/28/20 13:55 haloperidol [From Haldol] Allergy Swelling Verified 07/28/20 13:55 hydroxyzine [From Vistaril] Allergy Rash/Hives Verified 07/28/20 13:55 iodine Allergy Swelling Verified 07/28/20 13:55 Penicillins Allergy Swelling Verified 07/28/20 13:55 prochlorperazine Allergy Rash/Hives Verified 07/28/20 13:55 Sulfa (Sulfonamide Allergy Rash/Hives Verified 07/28/20 13:55 Antibiotics) Tetanus Vaccines and Toxoid Allergy Rash/Hives Verified 07/28/20 13:55 [Tetanus Vaccines & Toxoid] trifluoperazine HCl Allergy Unknown Verified 07/28/20 13:55 [From Stelazine] Physical Exam Vitals: Vital Signs Temp Pulse Resp BP Pulse Ox 07/31/20 07:19 97.4 F L 90 18 125/57 96 07/31/20 06:22 97.7 F 83 113/84 98 07/31/20 02:40 98.1 F 104 H 16 154/92 94 L 07/30/20 22:01 95 18 114/58 96 07/30/20 19:28 98.6 F 95 18 114/74 95 07/30/20 18:59 71 16 114/52 96 07/30/20 18:56 80 16 95/50 96 07/30/20 18:23 96 07/30/20 18:20 78 20 99/57 90 L 07/30/20 17:30 75 16 110/56 96 07/30/20 15:53 98.3 F 91 16 124/74 93 L Intake and Output 07/30/20 07/31/20 07/31/20 22:59 06:59 14:59 Other: Weight 176.901 kg 176.901 kg PHYSICAL EXAMINATION: This is a 60-year-old female in no apparent distress at the time of my examination. VITAL SIGNS: Blood pressure 125/57, heart rate 90, respirations 18, temp 97.4F. Patient is 96 % on 2 L via nasal cannula. HEENT: Head is atraumatic, normocephalic. Pupils are equal, round. Sclerae anicteric. Conjunctivae are clear. Mucous membranes of the mouth are moist. Neck is supple. There is no elevated jugular venous pressure. No carotid bruit is heard. CHEST EXAMINATION: Clear to auscultation bilaterally. No wheezes rales or rhonchi. Respirations even and nonlabored. Left-sided chest discomfort with palpation HEART EXAMINATION: Heart regular, positive S1 and S2. No S3. No S4. Systolic ejection murmur at the base. ABDOMEN: Soft, obese, generalized tenderness with palpation. Bowel sounds are heard. No organomegaly noted. EXTREMITIES: 2+ peripheral pulses with no evidence of peripheral edema and no calf tenderness noted. NEUROLOGIC EXAMINATION: Patient is awake, alert and oriented x3. Results 07/30/20 16:00 07/30/20 16:04 Cardiac Enzymes 07/30/20 07/30/20 07/30/20 Range/Units 16:04 16:04 18:34 AST 26 (14-36) U/L Troponin I <0.012 <0.012 (0.000-0.034) ng/mL 07/30/20 Range/Units 21:55 AST (14-36) U/L Troponin I <0.012 (0.000-0.034) ng/mL Coagulation 07/30/20 Range/Units 16:00 PT 9.5 (9.0-12.0) sec APTT 25.2 (22.0-30.0) sec Lipids 07/31/20 Range/Units 06:32 Triglycerides 201 H (<150) mg/dL Cholesterol 274 H (<200) mg/dL HDL Cholesterol 70 H (40-60) mg/dL CBC 07/30/20 Range/Units 16:00 WBC 6.5 (3.8-10.6) k/uL RBC 3.77 L (3.80-5.40) m/uL Hgb 10.7 L (11.4-16.0) gm/dL Hct 33.6 L (34.0-46.0) % Plt Count 312 (150-450) k/uL Comprehensive Metabolic Panel 07/30/20 Range/Units 16:04 Sodium 137 (137-145) mmol/L Potassium 4.0 (3.5-5.1) mmol/L Chloride 102 (98-107) mmol/L Carbon Dioxide 28 (22-30) mmol/L BUN 45 H (7-17) mg/dL Creatinine 1.80 H (0.52-1.04) mg/dL Glucose 125 H (74-99) mg/dL Calcium 9.1 (8.4-10.2) mg/dL AST 26 (14-36) U/L ALT 17 (4-34) U/L Alkaline Phosphatase 96 (38-126) U/L Total Protein 6.5 (6.3-8.2) g/dL Albumin 3.8 (3.5-5.0) g/dL Current Medications Generic Name Dose Route Start Last Admin Trade Name Freq PRN Reason Stop Dose Admin Acetaminophen 1,000 mg 07/30/20 22:01 07/30/20 23:17 Acetaminophen Tab 500 Mg Tab PO 1,000 mg Q6HR PRN Administration Fever and/ or Pain Allopurinol 100 mg 07/31/20 09:30 Allopurinol 100 Mg Tab PO DAILY [facility] Aspirin 325 mg 07/31/20 09:00 Aspirin 325 Mg Tab PO DAILY [facility] Atorvastatin Calcium 40 mg 07/31/20 09:30 Atorvastatin 40 Mg Tab PO DAILY [facility] Carvedilol 25 mg 07/31/20 09:30 Carvedilol 12.5 Mg Tab PO AC-BID [facility] Gabapentin 400 mg 07/31/20 16:00 Gabapentin 400 Mg Cap PO TID [facility] Lamotrigine 200 mg 07/31/20 09:30 Lamotrigine 100 Mg Tab PO DAILY [facility] Levothyroxine Sodium 137 mcg 07/31/20 09:30 Levothyroxine [place] [address] [facility] Melatonin 10 mg 07/31/20 21:00 Melatonin 5 Mg Tablet PO HS [facility] Meloxicam 7.5 mg 07/31/20 09:30 Meloxicam 7.5 Mg Tab PO DAILY [facility] Montelukast Sodium 10 mg 07/31/20 09:30 Montelukast 10 Mg Tab PO DAILY [facility] Nitroglycerin 0.4 mg 07/30/20 17:18 Nitroglycerin Sl Tabs 0.4 Mg Tab SUBLINGUAL Q5M PRN Chest Pain Pantoprazole Sodium 40 mg 07/31/20 10:00 Pantoprazole 40 Mg Tablet PO AC-BRKFST [facility] Quetiapine Fumarate 25 mg 07/31/20 09:30 Quetiapine 25 Mg Tab PO TID [facility] Rivaroxaban 10 mg 07/31/20 09:30 Rivaroxaban 10 Mg Tab PO DAILY [facility] Ropinirole HCl 4 mg 07/31/20 09:30 Ropinirole Hcl 4 Mg Tablet PO BID [facility] Senna/Docusate Sodium 2 each 07/31/20 21:00 Sennosides-Docusate Sodium 1 Each Tab PO HS [facility] Torsemide 50 mg 07/31/20 09:30 Torsemide 20 Mg Tab PO [id number]@0900 [facility] Torsemide 100 mg 08/01/20 09:00 Torsemide 20 Mg Tab PO MoWeFr@0900 [facility] Intake and Output 07/30/20 07/31/20 07/31/20 22:59 06:59 14:59 Other: Weight 176.901 kg 176.901 kg Patient Weight 08/01/20 06:59 Weight 176.901 kg 07/30/20 16:00 07/30/20 16:04 Assessment and Plan Assessment: 1 multiple complaints including left-sided chest pressure worsened with palpation #2 aortic stenosis #3 chronic diastolic congestive heart failure 4 history of mental illness #5 hyperlipidemia Plan: From cardiology's perspective we'll obtain a limited echocardiogram to reassess aortic valve. Medications are reviewed and we'll continue the same at this time. Further recommendations to follow depending on echocardiogram results. [employer] note has been reviewed, I agree with a documented findings and plan of care. Patient was seen and examined.
[2020-07-31] MEDS: ACETAMINOPHEN TAB 500 MG TAB PO PRN (10:34)
[2020-07-31] MEDS: carvediloL 12.5 MG TAB PO SCH ×2 (10:35→16:23)
[2020-07-31] MEDS: QUEtiapine 25 MG TAB PO SCH ×2 (10:36→16:23)
--- NOTE | 2020-07-31 13:02 | P.HPIM ---
History of Present Illness H&P Date: 07/31/20 Chief Complaint: Chest pain pressure This is a 60-year-old lady patient of [facility]'s clinic, Devika Larson, with known history of diabetes mellitus type 2 uncontrolled diet CK D stage III, DJD, who has multiple ER visits and admissions for the same, admitted through the emergency room for chest pressure. She also has multiple psychiatric admissions, however this time she comes in with chest discomfort. On further inquiry, this happens 4 times a week, related with nausea, vision also has some dyspepsia, no aspiration, she also has right upper quadrant abdominal pain. Workup in the past year include an echocardiogram in 06/03/2020, with sinus rhythm, suboptimal views, moderate concentric LVH, EF 50-55%, LAC bili dilated at 40, left atrium markedly dilated, right ventricular is more diligently enlarged, unable to do RVSP, small pericardial effusion noted, peak aortic gradient valve patient is 50,/28 with moderate to severe aortic stenosis. CAT scan of the abdomen 05/24/2020, shows previous bariatric surgery, gallbladder is dilated at 11 cm, no focal liver defect, no pancreatic mass, Heart cath was performed June 2018, with left main that is normal, circumflex normal, left anterior descending proximal LAD normal otherwise this is a normal cardiac cath, performed June 2018. No recent stress test since June 2018. Patient is admitted with recurrent chest pain, troponins were negative initially, consult with cardiology, consult with Dr. Leroy for biliary colic, no oral antibiotic needed yet, patient also has severe aortic stenosis which n eeds to be investigated Review of Systems Constitutional: Reports as per HPI, Reports anorexia, Reports chronic pain, Reports fatigue, Denies chills, Denies chronic headaches, Denies daytime sleepiness, Denies fever, Denies lethargy, Denies malaise, Denies night sweats, Denies poor appetite, Denies sweats, Denies weakness, Denies weight gain, Denies weight loss Ears, nose, mouth and throat: Reports as per HPI Cardiovascular: Reports as per HPI, Reports chest pain, Reports dyspnea on exertion, Reports high blood pressure Respiratory: Reports as per HPI, Denies congestion, Denies cough, Denies cough with sputum, Denies dyspnea, Denies excessive sputum, Denies hemoptysis, Denies home oxygen, Denies pain, Denies pain on inspiration, Denies pleurisy, Denies respiratory infections, Denies sleep apnea, Denies snoring, Denies wheezing Gastrointestinal: Reports as per HPI, Reports belching, Reports bloating, Reports heartburn, Reports indigestion, Reports nausea, Denies abdominal pain, Denies BRBPR, Denies change in bowel habits, Denies coffee ground emesis, Denies constipation, Denies diarrhea, Denies dyspepsia, Denies early satiety, Denies excessive gas, Denies hematemesis, Denies hematochezia, Denies jaundice, Denies lactose intolerance, Denies loss of appetite, Denies melena, Denies vomiting Genitourinary: Reports as per HPI Neurological: Reports as per HPI, Denies aphasia, Denies ataxia, Denies balance difficulties, Denies burning pain, Denies change in mentation, Denies change in smell/taste, Denies change in speech, Denies confusion, Denies convulsions, Denies double vision, Denies gait dysfunction, Denies head injury, Denies headaches, Denies hearing difficulties, Denies lack of coordination, Denies loss of vision, Denies memory loss, Denies migraines, Denies motor disturbance, De nies numbness, Denies paralysis, Denies paresthesias, Denies seizures, Denies sensory deficit, Denies spasticity, Denies syncope, Denies tic, Denies tingling, Denies transient paralysis, Denies tremors, Denies vertigo, Denies weakness, Denies visual changes Psychiatric: Reports as per HPI, Reports anxiety, Reports change in appetite Endocrine: Reports as per HPI, Denies cold intolerance, Denies deepening of the voice, Denies excessive sweating, Denies excessive thirst, Denies fatigue, Denies flushing, Denies heat intolerance, Denies high blood sugars, Denies increase in ring/shoe/hat size, Denies low blood sugars, Denies nocturia, Denies palpitations, Denies polydipsia, Denies polyphagia, Denies polyuria, Denies proptosis, Denies recent glucocorticoid use, Denies thyroid mass, Denies weight change Hematologic/Lymphatic: Reports as per HPI Allergic/Immunologic: Reports as per HPI, Denies allergic rhinitis, Denies anaphylaxis, Denies angioedema, Denies gluten intolerance, Denies persistent infections, Denies seasonal allergies, Denies urticaria, Denies wheezing Past Medical History Past Medical History: Asthma, Heart Failure, COPD, Diabetes Mellitus, GERD/Reflux, Hyperlipidemia, Hypertension, Musculoskeletal Disorder, Osteoarthritis (OA), Pneumonia, Pulmonary Embolus (PE), Thyroid Disorder Additional Past Medical History / Comment(s): chronic low back pain, herniated discs, RLS, leg edema, anemia, gout bilateral feet, hypothyroid, UTIs, hx cellulitis, cataracts, macular degeneration, DM (diet controlled) History of Any Multi-Drug Resistant Organisms: None Reported Past Surgical History: Bariatric Surgery, Heart Catheterization, Hernia Repair, Orthopedic Surgery Additional Past Surgical History / Comment(s): Total Right knee replacement, 3 abdominal hernia repairs, left hip repair d/t fracture, gastric bypass/revision, colonoscopy. Past Anesthesia/Blood Transfusion Reactions: No Reported Reaction Past Psychological History: Anxiety, Bipolar, Depression, Panic Disorder, PTSD Additional Psychological History / Comment(s): Borderline personality disorder. She states she sees a psychiatrist at [facility] and has a medical case worker there. Pt has a legal guardian , Taty Mosher. She cannot drive, she either takes the bus to [employer]. She uses a walker to ambulate. She has a glucometer but no longer has to monitor her blood sugars/is out of equipment. Pt states she recently attempted suicide with OD of tramadol. She states she no longer feels suicidal and has no suicidal thoughts/plans. Smoking Status: Never smoker Past Alcohol Use History: Occasional Additional Past Alcohol Use History / Comment(s): In -' was an everyday drinker Past Drug Use History: None Reported - Past Family History Mother Family Medical History: Cancer Additional Family Medical History / Comment(s): lung cancer Father Family Medical History: Diabetes Mellitus Additional Family Medical History / Comment(s): "my dad from a blood clot t hat traveled from his leg to his lung and also caused a heart attack." Brother(s) Family Medical History: Diabetes Mellitus Sister(s) Additional Family Medical History / Comment(s): "her heart races too fast" Medications and Allergies Home Medications Medication Instructions Recorded Confirmed Type Carvedilol [Coreg] 25 mg PO BID 06/07/17 07/30/20 History Levothyroxine Sodium [Synthroid] 137 mcg PO DAILY 10/20/17 07/30/20 History Montelukast [Singulair] 10 mg PO DAILY 06/28/18 07/30/20 History DULoxetine HCL [Cymbalta] 60 mg PO BID 08/15/18 07/30/20 History rOPINIRole HCL [Requip] 4 mg PO BID 11/18/18 07/30/20 History Torsemide [Demadex] 50 mg PO SUTUTHSA 12/15/18 07/30/20 History Torsemide [Demadex] 100 mg PO MOWEFR 12/15/18 07/30/20 History Acetaminophen [Tylenol 8 Hour] 650 mg PO TID 08/14/19 07/30/20 History Loratadine [Claritin] 10 mg PO DAILY 08/14/19 07/30/20 History Magnesium Oxide [Mag-Ox] 400 mg PO DAILY 08/14/19 07/30/20 History Multivitamins, Thera [Multivitamin 1 tab PO DAILY 08/14/19 07/30/20 History (formulary)] Omeprazole 20 mg PO DAILY 08/14/19 07/30/20 History allopurinoL [Zyloprim] 100 mg PO DAILY 08/14/19 07/30/20 History Ferrous Gluconate 324 mg PO BID 01/19/20 07/30/20 History Gabapentin [Neurontin] 400 mg PO TID 01/19/20 07/30/20 History Melatonin 10 mg PO HS 01/19/20 07/30/20 History Diclofenac Sodium [Voltaren Gel] 4 gram TOPICAL QID PRN 04/03/20 07/30/20 History Potassium Chloride ER [K-Dur 10] 10 meq PO DAILY 04/03/20 07/30/20 History Cholecalciferol [Vitamin D3 (25 5,000 unit PO DAILY 04/28/20 07/30/20 History Mcg = 1000 Iu)] QUEtiapine [SEROquel] 25 mg PO TID 05/12/20 07/30/20 History Sennosides/Docusate Sodium [Senna 2 tab PO HS 05/12/20 07/30/20 History Plus 8.6-50 mg Tablet] L.acidoph,Paracasei, B.lactis 1 cap PO DAILY 06/02/20 07/30/20 History [Probiotic] Loperamide [Imodium] 2 mg PO DAILY PRN 06/02/20 07/30/20 History Paliperidone IM [Invega Sustenna] 156 mg IM Q28D 06/13/20 07/30/20 History Meloxicam [Mobic] 7.5 mg PO DAILY 06/21/20 07/30/20 History Albuterol Inhaler [Ventolin Hfa 2 puff INHALATION RT-Q4H PRN 07/14/20 07/30/20 History Inhaler] Lidocaine 4% Cream [Lmx 4] 1 applic TOPICAL DAILY PRN 07/14/20 07/30/20 History Mirabegron [Myrbetriq] 25 mg PO DAILY 07/14/20 07/30/20 History Nystatin 100,000 Unit/gm Powd 1 applic TOPICAL BID 07/14/20 07/30/20 History [Mycostatin Powder] Tolnaftate [Tinactin] 1 applic TOPICAL DAILY PRN 07/14/20 07/30/20 History Rivaroxaban [Xarelto] 10 mg PO DAILY 07/30/20 07/30/20 History lamoTRIgine [LaMICtal] See Taper PO DAILY 07/30/20 07/30/20 History Allergies Allergy/AdvReac Type Severity Reaction Status Date / Time buspirone [From BuSpar] Allergy Rash/Hives Verified 07/28/20 13:55 haloperidol [From Haldol] Allergy Swelling Verified 07/28/20 13:55 hydroxyzine [From Vistaril] Allergy Rash/Hives Verified 07/28/20 13:55 iodine Allergy Swelling Verified 07/28/20 13:55 Penicillins Allergy Swelling Verified 07/28/20 13:55 prochlorperazine Allergy Rash/Hives Verified 07/28/20 13:55 Sulfa (Sulfonamide Allergy Rash/Hives Verified 07/28/20 13:55 Antibiotics) Tetanus Vaccines and Toxoid Allergy Rash/Hives Verified 07/28/20 13:55 [Tetanus Vaccines & Toxoid] trifluoperazine HCl Allergy Unknown Verified 07/28/20 13:55 [From Stelazine] Physical Exam Vitals: Vital Signs Temp Pulse Pulse Resp BP BP Pulse Ox 07/31/20 09:00 18 07/31/20 08:43 98.0 F 85 16 130/79 100 07/31/20 07:19 97.4 F L 90 18 125/57 96 07/31/20 06:22 97.7 F 83 113/84 98 07/31/20 02:40 98.1 F 104 H 16 154/92 94 L 07/30/20 22:01 95 18 114/58 96 07/30/20 19:28 98.6 F 95 18 114/74 95 07/30/20 18:59 71 16 114/52 96 07/30/20 18:56 80 16 95/50 96 07/30/20 18:23 96 07/30/20 18:20 78 20 99/57 90 L 07/30/20 17:30 75 16 110/56 96 07/30/20 15:53 98.3 F 91 16 124/74 93 L Intake and Output 07/30/20 07/31/20 07/31/20 22:59 06:59 14:59 Intake Total 300 Balance 300 Intake: Oral 300 Other: Voiding Method Toilet # Voids 3 Weight 176.901 kg 176.901 kg - Constitutional General appearance: cooperative, no acute distress - EENT Eyes: EOMI, PERRLA ENT: NA/AT, normal oropharynx - Respiratory Respiratory: bilateral: CTA, negative: diminished, dullness, wheezing, prolonged expiration, prolonged inspiration - Gastrointestinal General gastrointestinal: normal bowel sounds, soft - Integumentary Integumentary: decreased turgor, normal - Neurologic Neurologic: CNII-XII intact - Musculoskeletal Musculoskeletal: gait normal, strength equal bilaterally - Psychiatric Psychiatric: A&O x's 3, appropriate affect, intact judgment & insight Results CBC & Chem 7: 07/30/20 16:00 07/30/20 16:04 Labs: Abnormal Lab Results - Last 24 Hours (Table) 07/30/20 07/30/20 07/31/20 Range/Units 16:00 16:04 06:32 RBC 3.77 L (3.80-5.40) m/uL Hgb 10.7 L (11.4-16.0) gm/dL Hct 33.6 L (34.0-46.0) % BUN 45 H (7-17) mg/dL Creatinine 1.80 H (0.52-1.04) mg/dL Glucose 125 H (74-99) mg/dL Triglycerides 201 H (<150) mg/dL Cholesterol 274 H (<200) mg/dL LDL Cholesterol, Calc 164 H (0-99) mg/dL HDL Cholesterol 70 H (40-60) mg/dL Laboratory Results WBC 6.5 k/uL (3.8-10.6) 07/30/20 16:00 RBC 3.77 m/uL (3.80-5.40) L 07/30/20 16:00 Hgb 10.7 gm/dL (11.4-16.0) L 07/30/20 16:00 Hct 33.6 % (34.0-46.0) L 07/30/20 16:00 MCV 89.1 fL (80.0-100.0) 07/30/20 16:00 MCH 28.4 pg (25.0-35.0) 07/30/20 16:00 MCHC 31.9 g/dL (31.0-37.0) 07/30/20 16:00 RDW 14.9 % (11.5-15.5) 07/30/20 16:00 Plt Count 312 k/uL (150-450) 07/30/20 16:00 MPV 7.9 07/30/20 16:00 Neutrophils % 63 % 07/30/20 16:00 Lymphocytes % 27 % 07/30/20 16:00 Monocytes % 5 % 07/30/20 16:00 Eosinophils % 2 % 07/30/20 16:00 Basophils % 0 % 07/30/20 16:00 Neutrophils # 4.1 k/uL (1.3-7.7) 07/30/20 16:00 Lymphocytes # 1.7 k/uL (1.0-4.8) 07/30/20 16:00 Monocytes # 0.4 k/uL (0-1.0) 07/30/20 16:00 Eosinophils # 0.1 k/uL (0-0.7) 07/30/20 16:00 Basophils # 0.0 k/uL (0-0.2) 07/30/20 16:00 PT 9.5 sec (9.0-12.0) 07/30/20 16:00 INR 0.9 (<1.2) 07/30/20 16:00 APTT 25.2 sec (22.0-30.0) 07/30/20 16:00 Sodium 137 mmol/L (137-145) 07/30/20 16:04 Potassium 4.0 mmol/L (3.5-5.1) 07/30/20 16:04 Chloride 102 mmol/L (98-107) 07/30/20 16:04 Carbon Dioxide 28 mmol/L (22-30) 07/30/20 16:04 Anion Gap 7 mmol/L 07/30/20 16:04 BUN 45 mg/dL (7-17) H 07/30/20 16:04 Creatinine 1.80 mg/dL (0.52-1.04) H 07/30/20 16:04 Est GFR (CKD-EPI)AfAm 35 (>60 ml/min/1.73 sqM) 07/30/20 16:04 Est GFR (CKD-EPI)NonAf 30 (>60 ml/min/1.73 sqM) 07/30/20 16:04 Glucose 125 mg/dL (74-99) H 07/30/20 16:04 Calcium 9.1 mg/dL (8.4-10.2) 07/30/20 16:04 Magnesium 2.0 mg/dL (1.6-2.3) 07/30/20 16:04 Total Bilirubin 0.3 mg/dL (0.2-1.3) 07/30/20 16:04 AST 26 U/L (14-36) 07/30/20 16:04 ALT 17 U/L (4-34) 07/30/20 16:04 Alkaline Phosphatase 96 U/L (38-126) 07/30/20 16:04 Troponin I <0.012 ng/mL (0.000-0.034) 07/30/20 21:55 Total Protein 6.5 g/dL (6.3-8.2) 07/30/20 16:04 Albumin 3.8 g/dL (3.5-5.0) 07/30/20 16:04 Triglycerides 201 mg/dL (<150) H 07/31/20 06:32 Cholesterol 274 mg/dL (<200) H 07/31/20 06:32 LDL Cholesterol, Calc 164 mg/dL (0-99) H 07/31/20 06:32 HDL Cholesterol 70 mg/dL (40-60) H 07/31/20 06:32 Coronavirus (PCR) Not Detected (Not Detectd) 07/30/20 17:22 Thrombosis Risk Factor Assmnt - DVT/VTE Prophylaxis DVT/VTE Prophylaxis: Pharmacologic Prophylaxis ordered - Choose All That Apply Any of the Below Risk Factors Present?: Yes Each Factor Represents 1 point: Age 41-60 years, Medical pt on bed rest, Obesity (BMI >25) Other Risk Factors: No Other congenital or acquired thrombophilia - If yes, enter type in comment: No Thrombosis Risk Factor Assessment Total Risk Factor Score: 3 Thrombosis Risk Factor Assessment Level: Moderate Risk Assessment and Plan Plan: 1. Recurrent chest pain with multiple risk factors including diabetes hyperlipidemia, costochondritis on exam, with recent cath in 2018 failed to reveal any occlusive disease, however patient has significant aortic stenosis. She also has on examination biliary colic with positive Little's sign, no fever, consult was made with Dr. Ibrahim cardiology, and Dr. leroy. HIDA scan with CCK obtained. Multiple admissions and workup for this, heart cath 2018 normal. 2. Moderate severe aortic stenosis, last cath was in 2018, this needs to be investigated closely next 3. Biliary colic with significant gallbladder dilatation without any stones, positive Little's sign, consult with Dr.bhesania HUNTERA scan with CCK obtained 4 Hyperlipidemia, starting Lipitor 40 started 5. Hypertensive cardiovascular disease, with biatrial enlargement, and right ventricular enlargement, EF was 50-55%, diastolic CHF 6. Morbid obesity, history of bariatric surgery 7. Hypothyroidism on levothyroxine 137 g daily 8. History of chronic pulmonary emboli for which patient xarelto 10 mg daily for maintenance long-term 9. Severe morbid obesity with BMI of 67 10. 11. Bipolar disorder with depression, 11. Patient has a history of court-appointed guardian Taty 12. Restless leg syndrome, on Requip 13. Edema, chronic on Demadex, 14. Asthma on Singulair no exacerbation\\ 15. CK D stage III, monitor creatinine, 16. Diabetes mellitus type 2, not on oral agents, hemoglobin A1c obtained Osteoporosis suspected, outpatient maintenance patient has costochondritis as well GI prophylaxis with Protonix DVT prophylaxis long-term Xarelto
--- NOTE | 2020-07-31 13:43 | P.GSCN ---
History of Present Illness Consult date: 07/31/20 Reason for Consult: Gallstones History of present illness: This 60-year-old female known to myself. Patient has history of cholelithiasis. She also has a history of a questionable pulmonary embolus. She's been worked up by pulmonary service. Apparently she was cleared for laparoscopic cholecystectomy. Patient was admitted to the hospital complaints of some chest pain. Past Medical History Past Medical History: Asthma, Heart Failure, COPD, Diabetes Mellitus, GERD/Reflux, Hyperlipidemia, Hypertension, Musculoskeletal Disorder, Osteoarthritis (OA), Pneumonia, Pulmonary Embolus (PE), Thyroid Disorder Additional Past Medical History / Comment(s): chronic low back pain, herniated discs, RLS, leg edema, anemia, gout bilateral feet, hypothyroid, UTIs, hx cellulitis, cataracts, macular degeneration, DM (diet controlled) History of Any Multi-Drug Resistant Organisms: None Reported Past Surgical History: Bariatric Surgery, Heart Catheterization, Hernia Repair, Orthopedic Surgery Additional Past Surgical History / Comment(s): Total Right knee replacement, 3 abdominal hernia repairs, left hip repair d/t fracture, gastric bypass/revision, colonoscopy. Past Anesthesia/Blood Transfusion Reactions: No Reported Reaction Past Psychological History: Anxiety, Bipolar, Depression, Panic Disorder, PTSD Additional Psychological History / Comment(s): Borderline personality disorder. She states she sees a psychiatrist at [facility] and has a case fitter there. Pt has a legal guardian , Taty Mosher. She cannot drive, she either takes the bus to appts. She uses a walker to ambulate. She has a glucometer but no longer has to monitor her blood sugars/is out of equipment. Pt states she recently attempted suicide with OD of tramadol. She states she no longer feels suicidal and has no suicidal thoughts/plans. Smoking Status: Never smoker Past Alcohol Use History: Occasional Additional Past Alcohol Use History / Comment(s): In -' was an everyday drinker Past Drug Use History: None Reported - Past Family History Mother Family Medical History: Cancer Additional Family Medical History / Comment(s): lung cancer Father Family Medical History: Diabetes Mellitus Additional Family Medical History / Comment(s): "my dad from a blood clot that traveled from his leg to his lung and also caused a heart attack." Brother(s) Family Medical History: Diabetes Mellitus Sister(s) Additional Family Medical History / Comment(s): "her heart races too fast" Medications and Allergies Home Medications Medication Instructions Recorded Confirmed Type Carvedilol [Coreg] 25 mg PO BID 06/07/17 07/30/20 History Levothyroxine Sodium [Synthroid] 137 mcg PO DAILY 10/20/17 07/30/20 History Montelukast [Singulair] 10 mg PO DAILY 06/28/18 07/30/20 History DULoxetine HCL [Cymbalta] 60 mg PO BID 08/15/18 07/30/20 History rOPINIRole HCL [Requip] 4 mg PO BID 11/18/18 07/30/20 History Torsemide [Demadex] 50 mg PO SUTUTHSA 12/15/18 07/30/20 History Torsemide [Demadex] 100 mg PO MOWEFR 12/15/18 07/30/20 History Acetaminophen [Tylenol 8 Hour] 650 mg PO TID 08/14/19 07/30/20 History Loratadine [Claritin] 10 mg PO DAILY 08/14/19 07/30/20 History Magnesium Oxide [Mag-Ox] 400 mg PO DAILY 08/14/19 07/30/20 History Multivitamins, Thera [Multivitamin 1 tab PO DAILY 08/14/19 07/30/20 History (formulary)] Omeprazole 20 mg PO DAILY 08/14/19 07/30/20 History allopurinoL [Zyloprim] 100 mg PO DAILY 08/14/19 07/30/20 History Ferrous Gluconate 324 mg PO BID 01/19/20 07/30/20 History Gabapentin [Neurontin] 400 mg PO TID 01/19/20 07/30/20 History Melatonin 10 mg PO HS 01/19/20 07/30/20 History Diclofenac Sodium [Voltaren Gel] 4 gram TOPICAL QID PRN 04/03/20 07/30/20 History Potassium Chloride ER [K-Dur 10] 10 meq PO DAILY 04/03/20 07/30/20 History Cholecalciferol [Vitamin D3 (25 5,000 unit PO DAILY 04/28/20 07/30/20 History Mcg = 1000 Iu)] QUEtiapine [SEROquel] 25 mg PO TID 05/12/20 07/30/20 History Sennosides/Docusate Sodium [Senna 2 tab PO HS 05/12/20 07/30/20 History Plus 8.6-50 mg Tablet] L.acidoph,Paracasei, B.lactis 1 cap PO DAILY 06/02/20 07/30/20 History [Probiotic] Loperamide [Imodium] 2 mg PO DAILY PRN 06/02/20 07/30/20 History Paliperidone IM [Invega Sustenna] 156 mg IM Q28D 06/13/20 07/30/20 History Meloxicam [Mobic] 7.5 mg PO DAILY 06/21/20 07/30/20 History Albuterol Inhaler [Ventolin Hfa 2 puff INHALATION RT-Q4H PRN 07/14/20 07/30/20 History Inhaler] Lidocaine 4% Cream [Lmx 4] 1 applic TOPICAL DAILY PRN 07/14/20 07/30/20 History Mirabegron [Myrbetriq] 25 mg PO DAILY 07/14/20 07/30/20 History Nystatin 100,000 Unit/gm Powd 1 applic TOPICAL BID 07/14/20 07/30/20 History [Mycostatin Powder] Tolnaftate [Tinactin] 1 applic TOPICAL DAILY PRN 07/14/20 07/30/20 History Rivaroxaban [Xarelto] 10 mg PO DAILY 07/30/20 07/30/20 History lamoTRIgine [LaMICtal] See Taper PO DAILY 07/30/20 07/30/20 History Allergies Allergy/AdvReac Type Severity Reaction Status Date / Time buspirone [From BuSpar] Allergy Rash/Hives Verified 07/28/20 13:55 haloperidol [From Haldol] Allergy Swelling Verified 07/28/20 13:55 hydroxyzine [From Vistaril] Allergy Rash/Hives Verified 07/28/20 13:55 iodine Allergy Swelling Verified 07/28/20 13:55 Penicillins Allergy Swelling Verified 07/28/20 13:55 prochlorperazine Allergy Rash/Hives Verified 07/28/20 13:55 Sulfa (Sulfonamide Allergy Rash/Hives Verified 07/28/20 13:55 Antibiotics) Tetanus Vaccines and Toxoid Allergy Rash/Hives Verified 07/28/20 13:55 [Tetanus Vaccines & Toxoid] trifluoperazine HCl Allergy Unknown Verified 07/28/20 13:55 [From [facility] [place]] Surgical - Exam Vital Signs Temp Pulse Resp BP Pulse Ox 98.3 F 91 16 124/74 93 L 07/30/20 15:53 07/30/20 15:53 07/30/20 15:53 07/30/20 15:53 07/30/20 15:53 - General well developed, well nourished, no distress - Eyes PERRL - ENT normal pinna - Neck no masses - Respiratory normal expansion - Cardiovascular Rhythm: regular - Abdomen Abdomen: soft, non tender Results - Labs 07/30/20 16:00 07/30/20 16:04 Abnormal Lab Results - Last 24 Hours (Table) 07/30/20 07/30/20 07/31/20 Range/Units 16:00 16:04 06:32 RBC 3.77 L (3.80-5.40) m/uL Hgb 10.7 L (11.4-16.0) gm/dL Hct 33.6 L (34.0-46.0) % BUN 45 H (7-17) mg/dL Creatinine 1.80 H (0.52-1.04) mg/dL Glucose 125 H (74-99) mg/dL Triglycerides 201 H (<150) mg/dL Cholesterol 274 H (<200) mg/dL LDL Cholesterol, Calc 164 H (0-99) mg/dL HDL Cholesterol 70 H (40-60) mg/dL Diabetes panel 07/30/20 07/31/20 Range/Units 16:04 06:32 Sodium 137 (137-145) mmol/L Potassium 4.0 (3.5-5.1) mmol/L Chloride 102 (98-107) mmol/L Carbon Dioxide 28 (22-30) mmol/L BUN 45 H (7-17) mg/dL Creatinine 1.80 H (0.52-1.04) mg/dL Glucose 125 H (74-99) mg/dL Calcium 9.1 (8.4-10.2) mg/dL AST 26 (14-36) U/L ALT 17 (4-34) U/L Alkaline Phosphatase 96 (38-126) U/L Total Protein 6.5 (6.3-8.2) g/dL Albumin 3.8 (3.5-5.0) g/dL Triglycerides 201 H (<150) mg/dL HDL Cholesterol 70 H (40-60) mg/dL Calcium panel 07/30/20 Range/Units 16:04 Calcium 9.1 (8.4-10.2) mg/dL Albumin 3.8 (3.5-5.0) g/dL Pituitary panel 07/30/20 Range/Units 16:04 Sodium 137 (137-145) mmol/L Potassium 4.0 (3.5-5.1) mmol/L Chloride 102 (98-107) mmol/L Carbon Dioxide 28 (22-30) mmol/L BUN 45 H (7-17) mg/dL Creatinine 1.80 H (0.52-1.04) mg/dL Glucose 125 H (74-99) mg/dL Calcium 9.1 (8.4-10.2) mg/dL Adrenal panel 07/30/20 Range/Units 16:04 Sodium 137 (137-145) mmol/L Potassium 4.0 (3.5-5.1) mmol/L Chloride 102 (98-107) mmol/L Carbon Dioxide 28 (22-30) mmol/L BUN 45 H (7-17) mg/dL Creatinine 1.80 H (0.52-1.04) mg/dL Glucose 125 H (74-99) mg/dL Calcium 9.1 (8.4-10.2) mg/dL Total Bilirubin 0.3 (0.2-1.3) mg/dL AST 26 (14-36) U/L ALT 17 (4-34) U/L Alkaline Phosphatase 96 (38-126) U/L Total Protein 6.5 (6.3-8.2) g/dL Albumin 3.8 (3.5-5.0) g/dL Assessment and Plan Assessment: History of cholelithiasis. Patient will undergo laparoscopic ostectomy when cleared by medicine service
[2020-07-31] MEDS ORDERED: INFLUENZA VACCINE (6 MOS+) 60 MCG/0.5 ML SYRINGE IM ONE (15:44)
[2020-07-31] MEDS ORDERED: ALPRAZolam 0.25 MG TAB PO PRN (15:56)
[2020-07-31] MEDS ORDERED: GABAPENTIN 400 MG CAP PO SCH (16:00)
[2020-07-31 17:40] LABS: Hemoglobin A1C 5.7 % (4.0-6.0)
[2020-07-31] MEDS ORDERED: MELATONIN 5 MG TABLET PO SCH (21:00)
[2020-07-31] MEDS ORDERED: SENNOSIDES-DOCUSATE SODIUM 1 EACH TAB PO SCH (21:00)
[2020-07-31 23:45] VITALS: BP 114/73; PULSE 84; RESP 20; TEMP 97.8
--- NOTE | 2020-08-01 07:34 | P.DS ---
Providers Date of admission: 07/30/20 17:19 Expected date of discharge: 07/31/20 Attending physician: Gina Turcios Consults: 07/30/20 17:18 Consult Physician Urgent Consulting Provider: Dragan Marshall Consult Reason/Comments: chest pain Do you want consulting provider notified?: Yes 07/31/20 09:51 Consult Physician Routine Consulting Provider: Marlon Ge Consult Reason/Comments: biliary colic Do you want consulting provider notified?: Yes Primary care physician: [facility] Hospital Course: HISTORY OF PRESENT ILLNESS This is a 60-year-old lady patient of [facility], Devika Larson, with known history of diabetes mellitus type 2 uncontrolled diet CK D stage III, DJD, who has multiple ER visits and admissions for the same, admitted through the emergency room for chest pressure. She also has multiple psychiatric admissions, however this time she comes in with chest discomfort. On further inquiry, this happens 4 times a week, related with nausea, vision also has some dyspepsia, no aspiration, she also has right upper quadrant abdominal pain. Workup in the past year include an echocardiogram in 06/03/2020, with sinus rhythm, suboptimal views, moderate concentric LVH, EF 50-55%, LAC bili dilated at 40, left atrium markedly dilated, right ventricular is more diligently enlarged, unable to do RVSP, small pericardial effusion noted, peak aortic gradient valve patient is 50,/28 with moderate to severe aortic stenosis. CAT scan of the abdomen 05/24/2020, shows previous bariatric surgery, gallbladder is dilated at 11 cm, no focal liver defect, no pancreatic mass, Heart cath was performed June 2018, with left main that is normal, circumflex normal, left anterior descending proximal LAD normal otherwise this is a normal cardiac cath, performed June 2018. No recent stress test since June 2018. Patient is admitted with recurrent chest pain, troponins were negative initially, consult with cardiology, consult with Dr. Ge for biliary colic, no oral antibiotic needed yet, patient also has severe aortic stenosis which needs to be investigated Patient was seen by general surgeon, Dr. Ge for his trip cholelithiasis. Plan was for patient to have laparoscopic cholecystectomy. Patient was also seen by cardiology and an echocardiogram was ordered to reassess aortic valve but this was not completed prior to patient leaving. No changes were made to patient's cardiac medications. Patient signed out AMA on July 31 at 2335. Patient's guardian was contacted at that time. DISCHARGE DIAGNOSES 1. Recurrent chest pain with multiple risk factors including diabetes, hyperlipidemia, costochondritis on exam, with recent cath in 2018 failed to reveal any occlusive disease, however patient has significant aortic stenosis. 2. Moderate severe aortic stenosis, last cath was in 2018, this needs to be investigated closely 3. Biliary colic with significant gallbladder dilatation without any stones 4. Hyperlipidemia 5. Hypertensive cardiovascular disease, with biatrial enlargement, and right ventricular enlargement, EF was 50-55%, chronic diastolic heart failure 6. Morbid obesity, history of bariatric surgery 7. Hypothyroidism 8. History of chronic pulmonary emboli 9. Severe morbid obesity with BMI of 67 10. Bipolar disorder with depression, 11. Patient has a history of court-appointed guardian Taty 12. Restless leg syndrome 13. Edema, chronic 14. Asthma, mild intermittent 15. CKD stage III 16. Diabetes mellitus type 2 17. Osteoporosis suspected Impression and plan of care have been directed as dictated by the signing physician. Seda Rosario nurse practitioner acting as scribe for signing physician. Patient Condition at Discharge: Undetermined Plan - Discharge Summary Discharge Rx Participant: No New Discharge Prescriptions: No Action Carvedilol [Coreg] 25 mg PO BID Levothyroxine Sodium [Synthroid] 137 mcg PO DAILY Montelukast [Singulair] 10 mg PO DAILY DULoxetine HCL [Cymbalta] 60 mg PO BID rOPINIRole HCL [Requip] 4 mg PO BID Torsemide [Demadex] 100 mg PO MOWEFR Torsemide [Demadex] 50 mg PO SUTUTHSA Omeprazole 20 mg PO DAILY Loratadine [Claritin] 10 mg PO DAILY Multivitamins, Thera [Multivitamin (formulary)] 1 tab PO DAILY Magnesium Oxide [Mag-Ox] 400 mg PO DAILY allopurinoL [Zyloprim] 100 mg PO DAILY Acetaminophen [Tylenol 8 Hour] 650 mg PO TID Melatonin 10 mg PO HS Gabapentin [Neurontin] 400 mg PO TID Ferrous Gluconate 324 mg PO BID Potassium Chloride ER [K-Dur 10] 10 meq PO DAILY Diclofenac Sodium [Voltaren Gel] 4 gram TOPICAL QID PRN PRN Reason: Pain Cholecalciferol [Vitamin D3 (25 Mcg = 1000 Iu)] 5,000 unit PO DAILY QUEtiapine [SEROquel] 25 mg PO TID Sennosides/Docusate Sodium [Senna Plus 8.6-50 mg Tablet] 2 tab PO HS Loperamide [Imodium] 2 mg PO DAILY PRN PRN Reason: Diarrhea L.acidoph,Paracasei, B.lactis [Probiotic] 1 cap PO DAILY Paliperidone IM [Invega Sustenna] 156 mg IM Q28D Meloxicam [Mobic] 7.5 mg PO DAILY Albuterol Inhaler [Ventolin Hfa Inhaler] 2 puff INHALATION RT-Q4H PRN PRN Reason: Shortness Of Breath Lidocaine 4% Cream [Lmx 4] 1 applic TOPICAL DAILY PRN PRN Reason: KNEE PAIN Mirabegron [Myrbetriq] 25 mg PO DAILY Tolnaftate [Tinactin] 1 applic TOPICAL DAILY PRN PRN Reason: Rash Nystatin 100,000 Unit/gm Powd [Mycostatin Powder] 1 applic TOPICAL BID Rivaroxaban [Xarelto] 10 mg PO DAILY lamoTRIgine [LaMICtal] See Taper PO DAILY Discharge Medication List Carvedilol [Coreg] 25 mg PO BID 06/07/17 [History] Levothyroxine Sodium [Synthroid] 137 mcg PO DAILY 10/20/17 [History] Montelukast [Singulair] 10 mg PO DAILY 06/28/18 [History] DULoxetine HCL [Cymbalta] 60 mg PO BID 08/15/18 [History] rOPINIRole HCL [Requip] 4 mg PO BID 11/18/18 [History] Torsemide [Demadex] 50 mg PO SUTUTHSA 12/15/18 [History] Torsemide [Demadex] 100 mg PO MOWEFR 12/15/18 [History] Acetaminophen [Tylenol 8 Hour] 650 mg PO TID 08/14/19 [History] Loratadine [Claritin] 10 mg PO DAILY 08/14/19 [History] Magnesium Oxide [Mag-Ox] 400 mg PO DAILY 08/14/19 [History] Multivitamins, Thera [Multivitamin (formulary)] 1 tab PO DAILY 08/14/19 [History] Omeprazole 20 mg PO DAILY 08/14/19 [History] allopurinoL [Zyloprim] 100 mg PO DAILY 08/14/19 [History] Ferrous Gluconate 324 mg PO BID 01/19/20 [History] Gabapentin [Neurontin] 400 mg PO TID 01/19/20 [History] Melatonin 10 mg PO HS 01/19/20 [History] Diclofenac Sodium [Voltaren Gel] 4 gram TOPICAL QID PRN 04/03/20 [History] Potassium Chloride ER [K-Dur 10] 10 meq PO DAILY 04/03/20 [History] Cholecalciferol [Vitamin D3 (25 Mcg = 1000 Iu)] 5,000 unit PO DAILY 04/28/20 [History] QUEtiapine [SEROquel] 25 mg PO TID 05/12/20 [History] Sennosides/Docusate Sodium [Senna Plus 8.6-50 mg Tablet] 2 tab PO HS 05/12/20 [History] L.acidoph,Paracasei, B.lactis [Probiotic] 1 cap PO DAILY 06/02/20 [History] Loperamide [Imodium] 2 mg PO DAILY PRN 06/02/20 [History] Paliperidone IM [Invega Sustenna] 156 mg IM Q28D 06/13/20 [History] Meloxicam [Mobic] 7.5 mg PO DAILY 06/21/20 [History] Albuterol Inhaler [Ventolin Hfa Inhaler] 2 puff INHALATION RT-Q4H PRN 07/14/20 [History] Lidocaine 4% Cream [Lmx 4] 1 applic TOPICAL DAILY PRN 07/14/20 [History] Mirabegron [Myrbetriq] 25 mg PO DAILY 07/14/20 [History] Nystatin 100,000 Unit/gm Powd [Mycostatin Powder] 1 applic TOPICAL BID 07/14/20 [History] Tolnaftate [Tinactin] 1 applic TOPICAL DAILY PRN 07/14/20 [History] Rivaroxaban [Xarelto] 10 mg PO DAILY 07/30/20 [History] lamoTRIgine [LaMICtal] See Taper PO DAILY 07/30/20 [History] Follow up Appointment(s)/Referral(s): [facility] [Primary Care Provider] - 1-2 days Discharge Disposition: Left Against Medical Advice
[2020-08-01] MEDS ORDERED: TORSEMIDE 20 MG TAB PO SCH (09:00)
[2020-08-01] MEDS ORDERED: MONTELUKAST 10 MG TAB PO SCH (09:00)
[2020-08-01] MEDS ORDERED: RIVAROXABAN 10 MG TAB PO SCH (09:00)
== END 2020-07-31 23:49 | disposition left against medical advice (07) ==
LOC: EC 15:47 → 1SOBS 17:19
PROVIDERS: ADMIT Family Medicine; ATTEND Family Medicine
DX: R07.89 Other chest pain (principal); K82.8 Other specified diseases of gallbladder; I35.0 Nonrheumatic aortic (valve) stenosis; M94.0 Chondrocostal junction syndrome [Tietze]; I13.0 Hypertensive heart and chronic kidney disease with heart failure and stage 1 through stage 4 chronic kidney disease, or unspecified chronic kidney disease; N18.30 Chronic kidney disease, stage 3 unspecified; I50.32 Chronic diastolic (congestive) heart failure; E11.22 Type 2 diabetes mellitus with diabetic chronic kidney disease; M19.90 Unspecified osteoarthritis, unspecified site; E78.5 Hyperlipidemia, unspecified; E03.9 Hypothyroidism, unspecified; G25.81 Restless legs syndrome; J45.20 Mild intermittent asthma, uncomplicated; G89.29 Other chronic pain; M54.5 Low back pain; H26.9 Unspecified cataract; H35.30 Unspecified macular degeneration; M10.9 Gout, unspecified; D64.9 Anemia, unspecified; F41.0 Panic disorder [episodic paroxysmal anxiety]; F31.9 Bipolar disorder, unspecified; F43.10 Post-traumatic stress disorder, unspecified; F60.3 Borderline personality disorder; E66.01 Morbid (severe) obesity due to excess calories; Z68.44 Body mass index [BMI] 60.0-69.9, adult; Z20.828 Contact with and (suspected) exposure to other viral communicable diseases; Z79.01 Long term (current) use of anticoagulants; Z79.890 Hormone replacement therapy; Z79.1 Long term (current) use of non-steroidal anti-inflammatories (NSAID); Z79.899 Other long term (current) drug therapy; Z88.0 Allergy status to penicillin; Z88.2 Allergy status to sulfonamides; Z88.7 Allergy status to serum and vaccine; Z88.8 Allergy status to other drugs, medicaments and biological substances; Z91.048 Other nonmedicinal substance allergy status; Z86.711 Personal history of pulmonary embolism; Z87.01 Personal history of pneumonia (recurrent); Z87.440 Personal history of urinary (tract) infections; Z98.890 Other specified postprocedural states; Z87.2 Personal history of diseases of the skin and subcutaneous tissue; Z98.84 Bariatric surgery status; Z96.651 Presence of right artificial knee joint; Z91.5 Personal history of self-harm; Z80.1 Family history of malignant neoplasm of trachea, bronchus and lung; Z83.3 Family history of diabetes mellitus; Z82.49 Family history of ischemic heart disease and other diseases of the circulatory system; Z53.29 Procedure and treatment not carried out because of patient's decision for other reasons
CPT/HCPCS: 96361; 96374; 99285; 36415; 93005 ×2; 80061; 80053; 83735; 84484; 85025; 85610; 85730; 83036; 87635; 71045; G0378 ×2; J2405

== ENCOUNTER 2020-08-06 16:58 | Emergency (ER) | payer MEDICARE, OTHER ==
[2020-08-06 17:13] VITALS: RESP 18; TEMP 98.3
--- NOTE | 2020-08-06 17:20 | ED ---
General Adult HPI - General Chief complaint: Chest Pain Stated complaint: Chest pain Time Seen by Provider: 08/06/20 16:59 Source: patient, EMS, RN notes reviewed, old records reviewed Mode of arrival: EMS Limitations: no limitations - History of Present Illness Initial comments: 60-year-old female presented for evaluation of chest pain. Pain has been present on and off for several weeks. She's had multiple ER evaluations as well as multiple inpatient evaluations of her chest pain. She was recently discharged and is presenting to the emergency department with return of central pain. No associated vomiting she has had some nausea. She states she does have a known gallbladder dysfunction. She states this is somewhat different from that. No diaphoresis. No fever. No cough. - Related Data Home Medications Medication Instructions Recorded Confirmed Carvedilol [Coreg] 25 mg PO BID 06/07/17 08/06/20 Levothyroxine Sodium [Synthroid] 137 mcg PO DAILY 10/20/17 08/06/20 Montelukast [Singulair] 10 mg PO DAILY 06/28/18 08/06/20 DULoxetine HCL [Cymbalta] 60 mg PO BID 08/15/18 08/06/20 rOPINIRole HCL [Requip] 4 mg PO BID 11/18/18 08/06/20 Torsemide [Demadex] 50 mg PO SUTUTHSA 12/15/18 08/06/20 Torsemide [Demadex] 100 mg PO MOWEFR 12/15/18 08/06/20 Acetaminophen [Tylenol 8 Hour] 650 mg PO TID 08/14/19 08/06/20 Loratadine [Claritin] 10 mg PO DAILY 08/14/19 08/06/20 Magnesium Oxide [Mag-Ox] 400 mg PO DAILY 08/14/19 08/06/20 Multivitamins, Thera [Multivitamin 1 tab PO DAILY 08/14/19 08/06/20 (formulary)] Omeprazole 20 mg PO DAILY 08/14/19 08/06/20 allopurinoL [Zyloprim] 100 mg PO DAILY 08/14/19 08/06/20 Ferrous Gluconate 324 mg PO BID 01/19/20 08/06/20 Gabapentin [Neurontin] 400 mg PO TID 01/19/20 08/06/20 Melatonin 10 mg PO HS 01/19/20 08/06/20 Diclofenac Sodium [Voltaren Gel] 4 gram TOPICAL QID PRN 04/03/20 08/06/20 Potassium Chloride ER [K-Dur 10] 10 meq PO DAILY 04/03/20 08/06/20 Cholecalciferol [Vitamin D3 (25 5,000 unit PO DAILY 04/28/20 08/06/20 Mcg = 1000 Iu)] QUEtiapine [SEROquel] 25 mg PO TID 05/12/20 08/06/20 Sennosides/Docusate Sodium [Senna 2 tab PO HS 05/12/20 08/06/20 Plus 8.6-50 mg Tablet] L.acidoph,Paracasei, B.lactis 1 cap PO DAILY 06/02/20 08/06/20 [Probiotic] Loperamide [Imodium] 2 mg PO DAILY PRN 06/02/20 08/06/20 Paliperidone IM [Invega Sustenna] 156 mg IM Q28D 06/13/20 08/06/20 Meloxicam [Mobic] 7.5 mg PO DAILY 06/21/20 08/06/20 Albuterol Inhaler [Ventolin Hfa 2 puff INHALATION RT-Q4H PRN 07/14/20 08/06/20 Inhaler] Lidocaine 4% Cream [Lmx 4] 1 applic TOPICAL DAILY PRN 07/14/20 08/06/20 Mirabegron [Myrbetriq] 25 mg PO DAILY 07/14/20 08/06/20 Nystatin 100,000 Unit/gm Powd 1 applic TOPICAL BID 07/14/20 08/06/20 [Mycostatin Powder] Tolnaftate [Tinactin] 1 applic TOPICAL DAILY PRN 07/14/20 08/06/20 Rivaroxaban [Xarelto] 10 mg PO DAILY 07/30/20 08/06/20 lamoTRIgine [LaMICtal] See Taper PO DAILY 07/30/20 08/06/20 Allergies Allergy/AdvReac Type Severity Reaction Status Date / Time buspirone [From BuSpar] Allergy Rash/Hives Verified 08/06/20 17:07 haloperidol [From Haldol] Allergy Swelling Verified 08/06/20 17:07 hydroxyzine [From Vistaril] Allergy Rash/Hives Verified 08/06/20 17:07 iodine Allergy Swelling Verified 08/06/20 17:07 Penicillins Allergy Swelling Verified 08/06/20 17:07 prochlorperazine Allergy Rash/Hives Verified 08/06/20 17:07 Sulfa (Sulfonamide Allergy Rash/Hives Verified 08/06/20 17:07 Antibiotics) Tetanus Vaccines and Toxoid Allergy Rash/Hives Verified 08/06/20 17:07 [Tetanus Vaccines & Toxoid] trifluoperazine HCl Allergy Unknown Verified 08/06/20 17:07 [From Stelazine] Review of Systems ROS Statement: Those systems with pertinent positive or pertinent negative responses have been documented in the HPI. ROS Other: All systems not noted in ROS Statement are negative. Past Medical History Past Medical History: Asthma, Heart Failure, COPD, Diabetes Mellitus, GERD/Reflux, Hyperlipidemia, Hypertension, Musculoskeletal Disorder, Osteoarthritis (OA), Pneumonia, Pulmonary Embolus (PE), Thyroid Disorder Additional Past Medical History / Comment(s): chronic low back pain, herniated discs, RLS, leg edema, anemia, gout bilateral feet, hypothyroid, UTIs, hx cellulitis, cataracts, macular degeneration, DM (diet controlled) History of Any Multi-Drug Resistant Organisms: None Reported Past Surgical History: Bariatric Surgery, Heart Catheterization, Hernia Repair, Orthopedic Surgery Additional Past Surgical History / Comment(s): Total Right knee replacement, 3 abdominal hernia repairs, left hip repair d/t fracture, gastric bypass/revision, colonoscopy. Past Anesthesia/Blood Transfusion Reactions: No Reported Reaction Past Psychological History: Anxiety, Bipolar, Depression, Panic Disorder, PTSD Smoking Status: Never smoker Past Alcohol Use History: Occasional Past Drug Use History: None Reported - Past Family History Mother Family Medical History: Cancer Additional Family Medical History / Comment(s): lung cancer Father Family Medical History: Diabetes Mellitus Additional Family Medical History / Comment(s): "my dad from a blood clot that traveled from his leg to his lung and also caused a heart attack." Brother(s) Family Medical History: Diabetes Mellitus Sister(s) Additional Family Medical History / Comment(s): "her heart races too fast" General Exam Limitations: no limitations General appearance: alert, in no apparent distress Head exam: Present: atraumatic, normocephalic Eye exam: Present: normal appearance, PERRL ENT exam: Present: normal exam Neck exam: Present: normal inspection. Absent: tenderness, meningismus Respiratory exam: Present: normal lung sounds bilaterally. Absent: respiratory distress Cardiovascular Exam: Present: regular rate, normal rhythm GI/Abdominal exam: Present: soft. Absent: distended, tenderness, guarding Extremities exam: Present: normal inspection, normal capillary refill. Absent: pedal edema, calf tenderness Neurological exam: Present: alert, oriented X3, CN II-XII intact Psychiatric exam: Present: normal affect, normal mood Skin exam: Present: warm, dry, intact. Absent: cyanosis, diaphoretic Course Vital Signs 08/06/20 08/06/20 08/06/20 17:07 17:42 18:16 Temperature 98.3 F Pulse Rate 91 80 90 Respiratory 18 18 18 Rate Blood Pressure 108/64 90/48 105/61 O2 Sat by Pulse 95 95 97 Oximetry EKG Findings - EKG Comments: EKG Findings:: EKG: Sinus rhythm with PAC no ST segment elevation, patient does have a Q-wave and T-wave inversion in lead 3. Rate of 93, CA interval 150, QRS duration 82, QTC 440. Medical Decision Making - Medical Decision Making 60-year-old female presented for evaluation of chest discomfort. Patient well- appearing, stable vitals, nonischemic EKG. Workup reveals a stable CBC, normal CMP transaminitis, troponin is negative. Patient's does have an appointment with general surgery regarding her gallb ladder within the next week. 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 - Lab Data Result diagrams: 08/06/20 17:17 08/06/20 17:17 Lab Results 08/06/20 08/06/20 08/06/20 Range/Units 17:17 17:17 17:17 WBC 6.8 (3.8-10.6) k/uL RBC 3.54 L (3.80-5.40) m/uL Hgb 10.3 L (11.4-16.0) gm/dL Hct 31.8 L (34.0-46.0) % MCV 89.8 (80.0-100.0) fL MCH 29.1 (25.0-35.0) pg MCHC 32.4 (31.0-37.0) g/dL RDW 15.1 (11.5-15.5) % Plt Count 315 (150-450) k/uL MPV 7.4 Neutrophils % 63 % Lymphocytes % 26 % Monocytes % 6 % Eosinophils % 2 % Basophils % 0 % Neutrophils # 4.2 (1.3-7.7) k/uL Lymphocytes # 1.7 (1.0-4.8) k/uL Monocytes # 0.4 (0-1.0) k/uL Eosinophils # 0.1 (0-0.7) k/uL Basophils # 0.0 (0-0.2) k/uL PT 9.5 (9.0-12.0) sec INR 0.9 (<1.2) APTT 25.2 (22.0-30.0) sec Sodium 138 (137-145) mmol/L Potassium 3.8 (3.5-5.1) mmol/L Chloride 106 (98-107) mmol/L Carbon Dioxide 26 (22-30) mmol/L Anion Gap 6 mmol/L BUN 33 H (7-17) mg/dL Creatinine 0.93 (0.52-1.04) mg/dL Est GFR (CKD-EPI)AfAm 78 (>60 ml/min/1.73 sqM) Est GFR (CKD-EPI)NonAf 68 (>60 ml/min/1.73 sqM) Glucose 112 H (74-99) mg/dL Calcium 8.5 (8.4-10.2) mg/dL Magnesium 1.7 (1.6-2.3) mg/dL Total Bilirubin 0.3 (0.2-1.3) mg/dL AST 27 (14-36) U/L ALT 18 (4-34) U/L Alkaline Phosphatase 98 (38-126) U/L Troponin I (0.000-0.034) ng/mL Total Protein 6.1 L (6.3-8.2) g/dL Albumin 3.6 (3.5-5.0) g/dL 08/06/20 Range/Units 17:17 WBC (3.8-10.6) k/uL RBC (3.80-5.40) m/uL Hgb (11.4-16.0) gm/dL Hct (34.0-46.0) % MCV (80.0-100.0) fL MCH (25.0-35.0) pg MCHC (31.0-37.0) g/dL RDW (11.5-15.5) % Plt Count (150-450) k/uL MPV Neutrophils % % Lymphocytes % % Monocytes % % Eosinophils % % Basophils % % Neutrophils # (1.3-7.7) k/uL Lymphocytes # (1.0-4.8) k/uL Monocytes # (0-1.0) k/uL Eosinophils # (0-0.7) k/uL Basophils # (0-0.2) k/uL PT (9.0-12.0) sec INR (<1.2) APTT (22.0-30.0) sec Sodium (137-145) mmol/L Potassium (3.5-5.1) mmol/L Chloride (98-107) mmol/L Carbon Dioxide (22-30) mmol/L Anion Gap mmol/L BUN (7-17) mg/dL Creatinine (0.52-1.04) mg/dL Est GFR (CKD-EPI)AfAm (>60 ml/min/1.73 sqM) Est GFR (CKD-EPI)NonAf (>60 ml/min/1.73 sqM) Glucose (74-99) mg/dL Calcium (8.4-10.2) mg/dL Magnesium (1.6-2.3) mg/dL Total Bilirubin (0.2-1.3) mg/dL AST (14-36) U/L ALT (4-34) U/L Alkaline Phosphatase (38-126) U/L Troponin I <0.012 (0.000-0.034) ng/mL Total Protein (6.3-8.2) g/dL Albumin (3.5-5.0) g/dL Disposition Clinical Impression: Chest pain Disposition: HOME SELF-CARE Condition: Fair Instructions (If sedation given, give patient instructions): Chest Pain (ED) Is patient prescribed a controlled substance at d/c from ED?: No [facility]Primary Care Provider] - 1-2 days Marlon Ge MD [STAFF PHYSICIAN] - 1-2 days Quique Lenz MD [STAFF PHYSICIAN] - 1-2 days Time of Disposition: 18:47
[2020-08-06] MEDS ORDERED: ONDANSETRON 4 MG/2 ML VIAL IVP STA (17:25)
[2020-08-06 17:34] LABS: Basophils % (A) 0 %; Eosinophils # (A) 0.1 k/uL (0-0.7); Eosinophils % (A) 2 %; HCT 31.8 % (34.0-46.0); HGB 10.3 gm/dL (11.4-16.0); Lymphocytes # (A) 1.7 k/uL (1.0-4.8); Lymphocytes % (A) 26 %; MCH 29.1 pg (25.0-35.0); MCHC 32.4 g/dL (31.0-37.0); MCV 89.8 fL (80.0-100.0); Mean Platelet Volume 7.4; Monocytes # (A) 0.4 k/uL (0-1.0); Monocytes % (A) 6 %; Neutrophils # (A) 4.2 k/uL (1.3-7.7); Neutrophils % (A) 63 %; Platelet Count 315 k/uL (150-450); RBC 3.54 m/uL (3.80-5.40); RDW 15.1 % (11.5-15.5); WBC 6.8 k/uL (3.8-10.6)
[2020-08-06] MEDS ORDERED: SODIUM CHLORIDE 0.9% 500 ML 500 ML IV ONE (17:39)
[2020-08-06 17:48] LABS: INR 0.9 (<1.2); Partial Thromboplastin Time 25.2 sec (22.0-30.0); Prothrombin Time 9.5 sec (9.0-12.0)
[2020-08-06 17:49] LABS: Albumin 3.6 g/dL (3.5-5.0); Calcium 8.5 mg/dL (8.4-10.2); Magnesium 1.7 mg/dL (1.6-2.3); Potassium 3.8 mmol/L (3.5-5.1); Total Bilirubin 0.3 mg/dL (0.2-1.3); Total Protein 6.1 g/dL (6.3-8.2)
--- NOTE | 2020-08-06 17:49 | XR ---
EXAMINATION TYPE: XR chest 2V DATE OF EXAM: 08/06/2020 COMPARISON: 07/30/2020 HISTORY: Chest pain TECHNIQUE: 2 views FINDINGS: Exam limited by patient's size. I see no heart failure nor confluent pneumonic infiltrate. There is no pleural effusion. There are no hilar masses. There are chest leads. IMPRESSION: No active cardiopulmonary disease. Limited exam. No significant change. Right lung base n ot well evaluated and minimal right lower lobe pneumonia not entirely excluded.
[2020-08-06 18:16] VITALS: BP 105/61; PULSE 90
== END 2020-08-06 18:56 | disposition home or self-care (01) ==
LOC: EC 16:58
DX: R07.9 Chest pain, unspecified (principal); R11.0 Nausea; J44.9 Chronic obstructive pulmonary disease, unspecified; I11.0 Hypertensive heart disease with heart failure; I50.9 Heart failure, unspecified; E11.9 Type 2 diabetes mellitus without complications; K21.9 Gastro-esophageal reflux disease without esophagitis; E78.5 Hyperlipidemia, unspecified; M19.90 Unspecified osteoarthritis, unspecified site; E03.9 Hypothyroidism, unspecified; G25.81 Restless legs syndrome; G89.29 Other chronic pain; M54.5 Low back pain; D64.9 Anemia, unspecified; M10.9 Gout, unspecified; F31.9 Bipolar disorder, unspecified; F41.0 Panic disorder [episodic paroxysmal anxiety]; F43.10 Post-traumatic stress disorder, unspecified; Z79.1 Long term (current) use of non-steroidal anti-inflammatories (NSAID); Z79.01 Long term (current) use of anticoagulants; Z79.899 Other long term (current) drug therapy; Z88.2 Allergy status to sulfonamides; Z88.7 Allergy status to serum and vaccine; Z88.0 Allergy status to penicillin; Z88.8 Allergy status to other drugs, medicaments and biological substances; Z91.048 Other nonmedicinal substance allergy status; Z86.711 Personal history of pulmonary embolism; Z96.651 Presence of right artificial knee joint; Z98.84 Bariatric surgery status; Z95.1 Presence of aortocoronary bypass graft
CPT/HCPCS: 36415; 93005; 80053; 83735; 84484; 85025; 85610; 85730; 71046; 99285; 96374; 96361; J2405

== ENCOUNTER 2020-08-07 16:33 | Emergency (ER) | payer MEDICARE, OTHER ==
[2020-08-07 16:44] VITALS: BP 125/74; RESP 18
[2020-08-07] MEDS ORDERED: ASPIRIN 81 MG PO STA (17:14)
[2020-08-07] MEDS ORDERED: ONDANSETRON 4 MG/2 ML VIAL IVP STA (17:15)
[2020-08-07] MEDS ORDERED: PANTOPRAZOLE 40 MG/10 ML VIAL IVP STA (17:15)
--- NOTE | 2020-08-07 17:18 | ED ---
Chest Pain HPI - General Chief Complaint: Chest Pain Stated Complaint: chest pain Time Seen by Provider: 08/07/20 17:08 Source: patient, RN notes reviewed, old records reviewed Mode of arrival: EMS Limitations: no limitations - History of Present Illness Initial Comments: 60-year-old female presents emergency room today with complaints of chest discomfort. She was seen in emergency department today for similar complaints and was admitted not long ago for chest pain evaluation. Patient reports is the same as it was yesterday. She also complains of nausea. Patient reports no fevers or chills denies shortness of breath. - Related Data Home Medications Medication Instructions Recorded Confirmed Carvedilol [Coreg] 25 mg PO BID 06/07/17 08/06/20 Levothyroxine Sodium [Synthroid] 137 mcg PO DAILY 10/20/17 08/06/20 Montelukast [Singulair] 10 mg PO DAILY 06/28/18 08/06/20 DULoxetine HCL [Cymbalta] 60 mg PO BID 08/15/18 08/06/20 rOPINIRole HCL [Requip] 4 mg PO BID 11/18/18 08/06/20 Torsemide [Demadex] 50 mg PO SUTUTHSA 12/15/18 08/06/20 Torsemide [Demadex] 100 mg PO MOWEFR 12/15/18 08/06/20 Acetaminophen [Tylenol 8 Hour] 650 mg PO TID 08/14/19 08/06/20 Loratadine [Claritin] 10 mg PO DAILY 08/14/19 08/06/20 Magnesium Oxide [Mag-Ox] 400 mg PO DAILY 08/14/19 08/06/20 Multivitamins, Thera [Multivitamin 1 tab PO DAILY 08/14/19 08/06/20 (formulary)] Omeprazole 20 mg PO DAILY 08/14/19 08/06/20 allopurinoL [Zyloprim] 100 mg PO DAILY 08/14/19 08/06/20 Ferrous Gluconate 324 mg PO BID 01/19/20 08/06/20 Gabapentin [Neurontin] 400 mg PO TID 01/19/20 08/06/20 Melatonin 10 mg PO HS 01/19/20 08/06/20 Diclofenac Sodium [Voltaren Gel] 4 gram TOPICAL QID PRN 04/03/20 08/06/20 Potassium Chloride ER [K-Dur 10] 10 meq PO DAILY 04/03/20 08/06/20 Cholecalciferol [Vitamin D3 (25 5,000 unit PO DAILY 04/28/20 08/06/20 Mcg = 1000 Iu)] QUEtiapine [SEROquel] 25 mg PO TID 05/12/20 08/06/20 Sennosides/Docusate Sodium [Senna 2 tab PO HS 05/12/20 08/06/20 Plus 8.6-50 mg Tablet] L.acidoph,Paracasei, B.lactis 1 cap PO DAILY 06/02/20 08/06/20 [Probiotic] Loperamide [Imodium] 2 mg PO DAILY PRN 06/02/20 08/06/20 Paliperidone IM [Invega Sustenna] 156 mg IM Q28D 06/13/20 08/06/20 Meloxicam [Mobic] 7.5 mg PO DAILY 06/21/20 08/06/20 Albuterol Inhaler [Ventolin Hfa 2 puff INHALATION RT-Q4H PRN 07/14/20 08/06/20 Inhaler] Lidocaine 4% Cream [Lmx 4] 1 applic TOPICAL DAILY PRN 07/14/20 08/06/20 Mirabegron [Myrbetriq] 25 mg PO DAILY 07/14/20 08/06/20 Nystatin 100,000 Unit/gm Powd 1 applic TOPICAL BID 07/14/20 08/06/20 [Mycostatin Powder] Tolnaftate [Tinactin] 1 applic TOPICAL DAILY PRN 07/14/20 08/06/20 Rivaroxaban [Xarelto] 10 mg PO DAILY 07/30/20 08/06/20 lamoTRIgine [LaMICtal] See Taper PO DAILY 07/30/20 08/06/20 Allergies Allergy/AdvReac Type Severity Reaction Status Date / Time buspirone [From BuSpar] Allergy Rash/Hives Verified 08/07/20 16:44 haloperidol [From Haldol] Allergy Swelling Verified 08/07/20 16:44 hydroxyzine [From Vistaril] Allergy Rash/Hives Verified 08/07/20 16:44 iodine Allergy Swelling Verified 08/07/20 16:44 Penicillins Allergy Swelling Verified 08/07/20 16:44 prochlorperazine Allergy Rash/Hives Verified 08/07/20 16:44 Sulfa (Sulfonamide Allergy Rash/Hives Verified 08/07/20 16:44 Antibiotics) Tetanus Vaccines and Toxoid Allergy Rash/Hives Verified 08/07/20 16:44 [Tetanus Vaccines & Toxoid] trifluoperazine HCl Allergy Unknown Verified 08/07/20 16:44 [From Stelazine] Review of Systems ROS Statement: Those systems with pertinent positive or pertinent negative responses have been documented in the HPI. ROS Other: All systems not noted in ROS Statement are negative. EKG Findings - EKG Comments: EKG Findings:: EKG performed at 1725 shows normal sinus rhythm and normal EKG. Ventricular rate of 75 bpm. Intervals 142 ms. QRS duration is 80 ms. QT QTc is 380/433 ms. Past Medical History Past Medical History: Asthma, Heart Failure, COPD, Diabetes Mellitus, GERD/Reflux, Hyperlipidemia, Hypertension, Musculoskeletal Disorder, Osteoarthritis (OA), Pneumonia, Pulmonary Embolus (PE), Thyroid Disorder Additional Past Medical History / Comment(s): chronic low back pain, herniated discs, RLS, leg edema, anemia, gout bilateral feet, hypothyroid, UTIs, hx cellulitis, cataracts, macular degeneration, DM (diet controlled) History of Any Multi-Drug Resistant Organisms: None Reported Past Surgical History: Bariatric Surgery, Heart Catheterization, Hernia Repair, Orthopedic Surgery Additional Past Surgical History / Comment(s): Total Right knee replacement, 3 abdominal hernia repairs, left hip repair d/t fracture, gastric bypass/revision, colonoscopy. Past Anesthesia/Blood Transfusion Reactions: No Reported Reaction Past Psychological History: Anxiety, Bipolar, Depression, Panic Disorder, PTSD Smoking Status: Never smoker Past Alcohol Use History: Occasional Past Drug Use History: None Reported - Past Family History Mother Family Medical History: Cancer Additional Family Medical History / Comment(s): lung cancer Father Family Medical History: Diabetes Mellitus Additional Family Medical History / Comment(s): "my dad from a blood clot that traveled from his leg to his lung and also caused a heart attack." Brother(s) Family Medical History: Diabetes Mellitus Sister(s) Additional Family Medical History / Comment(s): "her heart races too fast" General Exam - General Exam Comments Initial Comments: 60 year old female no acute distress. Morbidly obese. Limitations: no limitations General appearance: alert, in no apparent distress Head exam: Present: atraumatic, normocephalic, normal inspection Eye exam: Present: normal appearance, PERRL, EOMI. Absent: scleral icterus, conjunctival injection, periorbital swelling ENT exam: Present: normal exam, mucous membranes moist Neck exam: Present: normal inspection. Absent: tenderness, meningismus, lymphadenopathy Respiratory exam: Present: normal lung sounds bilaterally. Absent: respiratory distress, wheezes, rales, rhonchi, stridor Cardiovascular Exam: Present: regular rate, normal rhythm, normal heart sounds. Absent: systolic murmur, diastolic murmur, rubs, gallop, clicks GI/Abdominal exam: Present: soft, normal bowel sounds. Absent: distended, tenderness, guarding, rebound, rigid Neurological exam: Present: alert, oriented X3, CN II-XII intact Psychiatric exam: Present: normal affect, normal mood Skin exam: Present: warm, dry, intact, normal color. Absent: rash Course Vital Signs 08/07/20 08/07/20 08/07/20 16:41 18:29 19:23 Temperature 99 F 98 F Pulse Rate 85 77 Respiratory 18 18 Rate Blood Pressure 125/74 125/74 O2 Sat by Pulse 96 94 L Oximetry Chest Pain MDM - MDM 60 year old female well known to ED for CC of chest pain. EKG was reviewed and normal. Labs including troponin show no changes. Pt was seen yesterday for similiar complaints and admitted for cardiac evaluation last week. Discussed with the patient all lab findings and EKG show no change and does not require admission and to follow up with PCP and discussed with general surgeon as her pain can be related to her gallbladder. She has upcoming appt with surgery. Discussed return parameters. Pt was pleasant in ED. Disposition Clinical Impression: Atypical chest pain Disposition: HOME SELF-CARE Condition: Good Instructions (If sedation given, give patient instructions): Chest Pain (ED) Additional Instructions: Follow-up with your doctor. Is patient prescribed a controlled substance at d/c from ED?: No Referrals: [facility] [Primary Care Provider] - 1-2 days Time of Disposition: 18:55
[2020-08-07 17:51] LABS: Basophils # (A) 0.1 k/uL (0-0.2); Basophils % (A) 1 %; Eosinophils # (A) 0.1 k/uL (0-0.7); Eosinophils % (A) 2 %; HCT 31.5 % (34.0-46.0); HGB 10.4 gm/dL (11.4-16.0); Lymphocytes # (A) 1.4 k/uL (1.0-4.8); Lymphocytes % (A) 21 %; MCH 29.9 pg (25.0-35.0); MCHC 32.9 g/dL (31.0-37.0); MCV 90.6 fL (80.0-100.0); Mean Platelet Volume 7.3; Monocytes # (A) 0.3 k/uL (0-1.0); Monocytes % (A) 5 %; Neutrophils # (A) 4.6 k/uL (1.3-7.7); Neutrophils % (A) 68 %; Platelet Count 272 k/uL (150-450); RBC 3.47 m/uL (3.80-5.40); RDW 14.8 % (11.5-15.5); WBC 6.8 k/uL (3.8-10.6)
[2020-08-07 18:06] LABS: INR 0.9 (<1.2); Partial Thromboplastin Time 26.1 sec (22.0-30.0); Prothrombin Time 9.5 sec (9.0-12.0)
[2020-08-07 18:09] LABS: Albumin 3.5 g/dL (3.5-5.0); Calcium 8.5 mg/dL (8.4-10.2); Magnesium 1.9 mg/dL (1.6-2.3); Potassium 4.2 mmol/L (3.5-5.1); Total Bilirubin 0.3 mg/dL (0.2-1.3)
[2020-08-07 18:29] VITALS: PULSE 77
[2020-08-07 19:24] VITALS: TEMP 98
== END 2020-08-07 19:23 | disposition home or self-care (01) ==
LOC: EC 16:33
DX: R07.89 Other chest pain (principal); R11.0 Nausea; J44.9 Chronic obstructive pulmonary disease, unspecified; E11.9 Type 2 diabetes mellitus without complications; I11.0 Hypertensive heart disease with heart failure; I50.9 Heart failure, unspecified; K21.9 Gastro-esophageal reflux disease without esophagitis; E78.5 Hyperlipidemia, unspecified; M19.90 Unspecified osteoarthritis, unspecified site; G89.29 Other chronic pain; M54.5 Low back pain; G25.81 Restless legs syndrome; D64.9 Anemia, unspecified; M10.9 Gout, unspecified; F31.9 Bipolar disorder, unspecified; F41.0 Panic disorder [episodic paroxysmal anxiety]; F43.10 Post-traumatic stress disorder, unspecified; E03.9 Hypothyroidism, unspecified; Z79.890 Hormone replacement therapy; Z79.899 Other long term (current) drug therapy; Z79.1 Long term (current) use of non-steroidal anti-inflammatories (NSAID); Z79.51 Long term (current) use of inhaled steroids; Z79.01 Long term (current) use of anticoagulants; Z88.8 Allergy status to other drugs, medicaments and biological substances; Z88.0 Allergy status to penicillin; Z88.7 Allergy status to serum and vaccine; Z88.2 Allergy status to sulfonamides; Z86.711 Personal history of pulmonary embolism
CPT/HCPCS: 36415; 93005; 80053; 83735; 84484; 85025; 85610; 85730; 99285; 96374; 96375; J2405; C9113

== ENCOUNTER 2020-08-11 15:07 | Emergency (ER) | payer MEDICARE, OTHER ==
[2020-08-11 15:17] VITALS: RESP 18
--- NOTE | 2020-08-11 15:30 | ED ---
General Adult HPI - General Chief complaint: Chest Pain Stated complaint: Chest pain Time Seen by Provider: 08/11/20 15:12 Source: patient, EMS Mode of arrival: EMS Limitations: no limitations - History of Present Illness Initial comments: Dictation was produced using [employer] dictation software. please excuse any grammatical, word or spelling errors. This patient was cared for during a federal and state declared state of emergency secondary to Covid 19 Chief Complaint: 60-year-old female with past medical history of asthma, heart rate, COPD, the subcu hypertension presents with chest pain History of Present Illness: To 10-year-old female she is well-known to emergency department for multiple visitations for a myriad of complaints. This is heard 38 visit to our emergency department this past year. Patient is complaining of chest pain. She was just admitted to the hospital Recently for chest pain rule out. She states that she was admitted to the hospital recently however left is medical advice because she felt scared from being in the hospital. Patient did not follow-up with her outpatient appointment yet. She is value by cardiology approximately a week and a half ago. Patient denies any associated diaphoresis. No associated nausea. She states that this feeling a pressure. The ROS documented in this emergency department record has been reviewed and confirmed by me. Those systems with pertinent positive or negative responses have been documented in the HPI. All other systems are other negative and/or noncontributory. PHYSICAL EXAM: General Impression: Alert and oriented x3, not in acute distress HEENT: Normocephalic atraumatic, extra-ocular movements intact, pupils equal and reactive to light bilaterally, mucous membranes moist. Cardiovascular: Heart regular rate and rhythm Chest: Able to complete full sentences, no retractions, no tachypnea Abdomen: abdomen soft, non-tender, non-distended, no organomegaly Musculoskeletal: Pulses present and equal in all extremities, no peripheral edema Motor: no focal deficits noted Neurological: CN II-XII grossly intact, no focal motor or sensory deficits noted Skin: Intact with no visualized rashes Psych: Normal affect and mood ED course: 60-year-old female presents with chest pain. As upon arrival are within acceptable limits. EKGs benign. Patient's physical exam is benign. Laboratory evaluation obtained. CBC unremarkable. Coag panel is negative. Metabolic panel is negative. Troponin is negative. Chest x-ray is nonacute. Patient with discharge. Patient is strongly urged to follow-up with her outpatient appointments EKG interpretation: Ventricular rate 106, sinus tachycardia,. Interval 120, QRS 90, QTc 459. No UT prolongation, no QTC prolongation, no ST or T-wave changes noted. EKG compared to 08/07/2020 showing no changes. Overall, this EKG is unremarkable - Related Data Home Medications Medication Instructions Recorded Confirmed Carvedilol [Coreg] 25 mg PO BID 06/07/17 08/06/20 Levothyroxine Sodium [Synthroid] 137 mcg PO DAILY 10/20/17 08/06/20 Montelukast [Singulair] 10 mg PO DAILY 06/28/18 08/06/20 DULoxetine HCL [Cymbalta] 60 mg PO BID 08/15/18 08/06/20 rOPINIRole HCL [Requip] 4 mg PO BID 11/18/18 08/06/20 Torsemide [Demadex] 50 mg PO SUTUTHSA 12/15/18 08/06/20 Torsemide [Demadex] 100 mg PO MOWEFR 12/15/18 08/06/20 Acetaminophen [Tylenol 8 Hour] 650 mg PO TID 08/14/19 08/06/20 Loratadine [Claritin] 10 mg PO DAILY 08/14/19 08/06/20 Magnesium Oxide [Mag-Ox] 400 mg PO DAILY 08/14/19 08/06/20 Multivitamins, Thera [Multivitamin 1 tab PO DAILY 08/14/19 08/06/20 (formulary)] Omeprazole 20 mg PO DAILY 08/14/19 08/06/20 allopurinoL [Zyloprim] 100 mg PO DAILY 08/14/19 08/06/20 Ferrous Gluconate 324 mg PO BID 01/19/20 08/06/20 Gabapentin [Neurontin] 400 mg PO TID 01/19/20 08/06/20 Melatonin 10 mg PO HS 01/19/20 08/06/20 Diclofenac Sodium [Voltaren Gel] 4 gram TOPICAL QID PRN 04/03/20 08/06/20 Potassium Chloride ER [K-Dur 10] 10 meq PO DAILY 04/03/20 08/06/20 Cholecalciferol [Vitamin D3 (25 5,000 unit PO DAILY 04/28/20 08/06/20 Mcg = 1000 Iu)] QUEtiapine [SEROquel] 25 mg PO TID 05/12/20 08/06/20 Sennosides/Docusate Sodium [Senna 2 tab PO HS 05/12/20 08/06/20 Plus 8.6-50 mg Tablet] L.acidoph,Paracasei, B.lactis 1 cap PO DAILY 06/02/20 08/06/20 [Probiotic] Loperamide [Imodium] 2 mg PO DAILY PRN 06/02/20 08/06/20 Paliperidone IM [Invega Sustenna] 156 mg IM Q28D 06/13/20 08/06/20 Meloxicam [Mobic] 7.5 mg PO DAILY 06/21/20 08/06/20 Albuterol Inhaler [Ventolin Hfa 2 puff INHALATION RT-Q4H PRN 07/14/20 08/06/20 Inhaler] Lidocaine 4% Cream [Lmx 4] 1 applic TOPICAL DAILY PRN 07/14/20 08/06/20 Mirabegron [Myrbetriq] 25 mg PO DAILY 07/14/20 08/06/20 Nystatin 100,000 Unit/gm Powd 1 applic TOPICAL BID 07/14/20 08/06/20 [Mycostatin Powder] Tolnaftate [Tinactin] 1 applic TOPICAL DAILY PRN 07/14/20 08/06/20 Rivaroxaban [Xarelto] 10 mg PO DAILY 07/30/20 08/06/20 lamoTRIgine [LaMICtal] See Taper PO DAILY 07/30/20 08/06/20 Allergies Allergy/AdvReac Type Severity Reaction Status Date / Time buspirone [From BuSpar] Allergy Rash/Hives Verified 08/11/20 15:17 haloperidol [From Haldol] Allergy Swelling Verified 08/11/20 15:17 hydroxyzine [From Vistaril] Allergy Rash/Hives Verified 08/11/20 15:17 iodine Allergy Swelling Verified 08/11/20 15:17 Penicillins Allergy Swelling Verified 08/11/20 15:17 prochlorperazine Allergy Rash/Hives Verified 08/11/20 15:17 Sulfa (Sulfonamide Allergy Rash/Hives Verified 08/11/20 15:17 Antibiotics) Tetanus Vaccines and Toxoid Allergy Rash/Hives Verified 08/11/20 15:17 [Tetanus Vaccines & Toxoid] trifluoperazine HCl Allergy Unknown Verified 08/11/20 15:17 [From Stelazine] Review of Systems ROS Statement: Those systems with pertinent positive or pertinent negative responses have been documented in the HPI. ROS Other: All systems not noted in ROS Statement are negative. Past Medical History Past Medical History: Asthma, Heart Failure, COPD, Diabetes Mellitus, GERD/Reflux, Hyperlipidemia, Hypertension, Musculoskeletal Disorder, Osteoarthritis (OA), Pneumonia, Pulmonary Embolus (PE), Thyroid Disorder Additional Past Medical History / Comment(s): chronic low back pain, herniated discs, RLS, leg edema, anemia, gout bilateral feet, hypothyroid, UTIs, hx cellulitis, cataracts, macular degeneration, DM (diet controlled) History of Any Multi-Drug Resistant Organisms: None Reported Past Surgical History: Bariatric Surgery, Heart Catheterization, Hernia Repair, Orthopedic Surgery Additional Past Surgical History / Comment(s): Total Right knee replacement, 3 abdominal hernia repairs, left hip repair d/t fracture, gastric bypass/revision, colonoscopy. Past Anesthesia/Blood Transfusion Reactions: No Reported Reaction Past Psychological History: Anxiety, Bipolar, Depression, Panic Disorder, PTSD Smoking Status: Never smoker Past Alcohol Use History: None Reported Past Drug Use History: None Reported - Past Family History Mother Family Medical History: Cancer Additional Family Medical History / Comment(s): lung cancer Father Family Medical History: Diabetes Mellitus Additional Family Medical History / Comment(s): "my dad from a blood clot that traveled from his leg to his lung and also caused a heart attack." Brother(s) Family Medical History: Diabetes Mellitus Sister(s) Additional Family Medical History / Comment(s): "her heart races too fast" General Exam Limitations: no limitations Course Vital Signs 08/11/20 15:11 Temperature 98.8 F Pulse Rate 96 Respiratory 18 Rate Blood Pressure 134/96 O2 Sat by Pulse 98 Oximetry Medical Decision Making - Lab Data Result diagrams: 08/11/20 15:33 08/11/20 15:33 Lab Results 08/11/20 08/11/20 08/11/20 Range/Units 15:33 15:33 15:33 WBC 7.0 (3.8-10.6) k/uL RBC 3.80 (3.80-5.40) m/uL Hgb 10.9 L (11.4-16.0) gm/dL Hct 34.2 (34.0-46.0) % MCV 90.0 (80.0-100.0) fL MCH 28.8 (25.0-35.0) pg MCHC 32.0 (31.0-37.0) g/dL RDW 15.2 (11.5-15.5) % Plt Count 301 (150-450) k/uL MPV 7.3 Neutrophils % 66 % Lymphocytes % 24 % Monocytes % 6 % Eosinophils % 2 % Basophils % 0 % Neutrophils # 4.6 (1.3-7.7) k/uL Lymphocytes # 1.7 (1.0-4.8) k/uL Monocytes # 0.4 (0-1.0) k/uL Eosinophils # 0.1 (0-0.7) k/uL Basophils # 0.0 (0-0.2) k/uL PT 9.6 (9.0-12.0) sec INR 0.9 (<1.2) APTT 25.4 (22.0-30.0) sec Sodium 139 (137-145) mmol/L Potassium 4.7 (3.5-5.1) mmol/L Chloride 104 (98-107) mmol/L Carbon Dioxide 30 (22-30) mmol/L Anion Gap 5 mmol/L BUN 23 H (7-17) mg/dL Creatinine 0.88 (0.52-1.04) mg/dL Est GFR (CKD-EPI)AfAm 84 (>60 ml/min/1.73 sqM) Est GFR (CKD-EPI)NonAf 73 (>60 ml/min/1.73 sqM) Glucose 88 (74-99) mg/dL Calcium 9.5 (8.4-10.2) mg/dL Magnesium 1.9 (1.6-2.3) mg/dL Total Bilirubin 0.4 (0.2-1.3) mg/dL AST 33 (14-36) U/L ALT 20 (4-34) U/L Alkaline Phosphatase 85 (38-126) U/L Troponin I (0.000-0.034) ng/mL Total Protein 6.9 (6.3-8.2) g/dL Albumin 4.1 (3.5-5.0) g/dL 08/11/20 Range/Units 15:33 WBC (3.8-10.6) k/uL RBC (3.80-5.40) m/uL Hgb (11.4-16.0) gm/dL Hct (34.0-46.0) % MCV (80.0-100.0) fL MCH (25.0-35.0) pg MCHC (31.0-37.0) g/dL RDW (11.5-15.5) % Plt Count (150-450) k/uL MPV Neutrophils % % Lymphocytes % % Monocytes % % Eosinophils % % Basophils % % Neutrophils # (1.3-7.7) k/uL Lymphocytes # (1.0-4.8) k/uL Monocytes # (0-1.0) k/uL Eosinophils # (0-0.7) k/uL Basophils # (0-0.2) k/uL PT (9.0-12.0) sec INR (<1.2) APTT (22.0-30.0) sec Sodium (137-145) mmol/L Potassium (3.5-5.1) mmol/L Chloride (98-107) mmol/L Carbon Dioxide (22-30) mmol/L Anion Gap mmol/L BUN (7-17) mg/dL Creatinine (0.52-1.04) mg/dL Est GFR (CKD-EPI)AfAm (>60 ml/min/1.73 sqM) Est GFR (CKD-EPI)NonAf (>60 ml/min/1.73 sqM) Glucose (74-99) mg/dL Calcium (8.4-10.2) mg/dL Magnesium (1.6-2.3) mg/dL Total Bilirubin (0.2-1.3) mg/dL AST (14-36) U/L ALT (4-34) U/L Alkaline Phosphatase (38-126) U/L Troponin I <0.012 (0.000-0.034) ng/mL Total Protein (6.3-8.2) g/dL Albumin (3.5-5.0) g/dL Disposition Clinical Impression: Chest pain Disposition: HOME SELF-CARE Condition: Good Instructions (If sedation given, give patient instructions): Chest Pain (ED) Is patient prescribed a controlled substance at d/c from ED?: No Referrals: [facility] [Primary Care Provider] - 1-2 days Time of Disposition: 16:25
[2020-08-11] MEDS ORDERED: oxyCODONE-APAP 7.5-325MG 1 EACH TAB PO STA (15:31)
[2020-08-11 15:43] LABS: Basophils % (A) 0 %; Eosinophils # (A) 0.1 k/uL (0-0.7); Eosinophils % (A) 2 %; HCT 34.2 % (34.0-46.0); HGB 10.9 gm/dL (11.4-16.0); Lymphocytes # (A) 1.7 k/uL (1.0-4.8); Lymphocytes % (A) 24 %; MCH 28.8 pg (25.0-35.0); Mean Platelet Volume 7.3; Monocytes # (A) 0.4 k/uL (0-1.0); Monocytes % (A) 6 %; Neutrophils # (A) 4.6 k/uL (1.3-7.7); Neutrophils % (A) 66 %; Platelet Count 301 k/uL (150-450); RDW 15.2 % (11.5-15.5)
--- NOTE | 2020-08-11 15:43 | XR ---
EXAMINATION TYPE: XR chest 1V portable DATE OF EXAM: 08/11/2020 COMPARISON: Chest x-ray 5 days ago. HISTORY: Chest pain. TECHNIQUE: Single frontal view of the chest is obtained. FINDINGS: Exam suboptimal due to portable technique and patient's large body habitus. There is persi stent low lung volumes and cardiomegaly. Suggestion of mild/moderate central vascular congestion fina lar to prior. Patient rotated to the left similar to prior. The osseous structures are intact. Even tration right hemidiaphragm redemonstrated. IMPRESSION: Low lung volumes and cardiomegaly with suspected mild to moderate central vascular conge stion. No significant change from most recent x-ray.
[2020-08-11] MEDS ORDERED: ALPRAZolam 0.5 MG TAB PO STA (15:54)
[2020-08-11 15:56] LABS: Albumin 4.1 g/dL (3.5-5.0); Calcium 9.5 mg/dL (8.4-10.2); INR 0.9 (<1.2); Magnesium 1.9 mg/dL (1.6-2.3); Partial Thromboplastin Time 25.4 sec (22.0-30.0); Potassium 4.7 mmol/L (3.5-5.1); Prothrombin Time 9.6 sec (9.0-12.0); Total Bilirubin 0.4 mg/dL (0.2-1.3); Total Protein 6.9 g/dL (6.3-8.2)
[2020-08-11 16:33] VITALS: BP 144/85; PULSE 93; TEMP 97.7
== END 2020-08-11 16:37 | disposition home or self-care (01) ==
LOC: EC 15:07
DX: R07.9 Chest pain, unspecified (principal); R00.0 Tachycardia, unspecified; I11.0 Hypertensive heart disease with heart failure; J44.9 Chronic obstructive pulmonary disease, unspecified; E03.9 Hypothyroidism, unspecified; I50.9 Heart failure, unspecified; M19.90 Unspecified osteoarthritis, unspecified site; G25.81 Restless legs syndrome; K21.9 Gastro-esophageal reflux disease without esophagitis; M10.9 Gout, unspecified; F41.9 Anxiety disorder, unspecified; F32.9 Major depressive disorder, single episode, unspecified; F43.10 Post-traumatic stress disorder, unspecified; Z79.1 Long term (current) use of non-steroidal anti-inflammatories (NSAID); Z79.899 Other long term (current) drug therapy; Z79.890 Hormone replacement therapy; Z79.01 Long term (current) use of anticoagulants; Z88.8 Allergy status to other drugs, medicaments and biological substances; Z88.7 Allergy status to serum and vaccine; Z88.0 Allergy status to penicillin; Z91.048 Other nonmedicinal substance allergy status; Z88.2 Allergy status to sulfonamides; Z86.711 Personal history of pulmonary embolism; Z96.651 Presence of right artificial knee joint
CPT/HCPCS: 36415; 71045; 80053; 83735; 84484; 85025; 85610; 85730; 93005; 99285

== ENCOUNTER 2020-08-14 15:21 | Emergency (ER) | payer MEDICARE, OTHER ==
--- NOTE | 2020-08-14 15:38 | ED ---
General Adult HPI - General Chief complaint: Chest Pain Stated complaint: Chest Pain Time Seen by Provider: 08/14/20 15:25 Source: patient, EMS Mode of arrival: EMS Limitations: no limitations - History of Present Illness Initial comments: Patient presents the ED by ambulance for evaluation. Patient states that she developed left-sided chest pain while at rest and watching television about 2- 1/2 hours ago. Patient is well-known to the ED staff, and she has had multiple ED presentations in the past for similar chest pain. Patient was most recently seen in the ED for chest pain 3 days ago. Patient admits to feeling nauseated as well. Patient was reportedly given aspirin 324 mg by mouth, as well as nitroglycerin x 1 by EMS. Patient denies trauma or injury, fever or chills, headache, focal numbness/weakness/neuro deficit, neck/jaw/arm pain, pleuritic pain, dyspnea, cough or cold symptoms, palpitations, dizziness, diaphoresis, vomiting/diarrhea, abdominal pain, decreased urine output, urinary symptoms, leg or calf swelling or pain, or any other symptoms or complaints. - Related Data Home Medications Medication Instructions Recorded Confirmed Carvedilol [Coreg] 25 mg PO BID 06/07/17 08/06/20 Levothyroxine Sodium [Synthroid] 137 mcg PO DAILY 10/20/17 08/06/20 Montelukast [Singulair] 10 mg PO DAILY 06/28/18 08/06/20 DULoxetine HCL [Cymbalta] 60 mg PO BID 08/15/18 08/06/20 rOPINIRole HCL [Requip] 4 mg PO BID 11/18/18 08/06/20 Torsemide [Demadex] 50 mg PO SUTUTHSA 12/15/18 08/06/20 Torsemide [Demadex] 100 mg PO MOWEFR 12/15/18 08/06/20 Acetaminophen [Tylenol 8 Hour] 650 mg PO TID 08/14/19 08/06/20 Loratadine [Claritin] 10 mg PO DAILY 08/14/19 08/06/20 Magnesium Oxide [Mag-Ox] 400 mg PO DAILY 08/14/19 08/06/20 Multivitamins, Thera [Multivitamin 1 tab PO DAILY 08/14/19 08/06/20 (formulary)] Omeprazole 20 mg PO DAILY 08/14/19 08/06/20 allopurinoL [Zyloprim] 100 mg PO DAILY 08/14/19 08/06/20 Ferrous Gluconate 324 mg PO BID 01/19/20 08/06/20 Gabapentin [Neurontin] 400 mg PO TID 01/19/20 08/06/20 Melatonin 10 mg PO HS 01/19/20 08/06/20 Diclofenac Sodium [Voltaren Gel] 4 gram TOPICAL QID PRN 04/03/20 08/06/20 Potassium Chloride ER [K-Dur 10] 10 meq PO DAILY 04/03/20 08/06/20 Cholecalciferol [Vitamin D3 (25 5,000 unit PO DAILY 04/28/20 08/06/20 Mcg = 1000 Iu)] QUEtiapine [SEROquel] 25 mg PO TID 05/12/20 08/06/20 Sennosides/Docusate Sodium [Senna 2 tab PO HS 05/12/20 08/06/20 Plus 8.6-50 mg Tablet] L.acidoph,Paracasei, B.lactis 1 cap PO DAILY 06/02/20 08/06/20 [Probiotic] Loperamide [Imodium] 2 mg PO DAILY PRN 06/02/20 08/06/20 Paliperidone IM [Invega Sustenna] 156 mg IM Q28D 06/13/20 08/06/20 Meloxicam [Mobic] 7.5 mg PO DAILY 06/21/20 08/06/20 Albuterol Inhaler [Ventolin Hfa 2 puff INHALATION RT-Q4H PRN 07/14/20 08/06/20 Inhaler] Lidocaine 4% Cream [Lmx 4] 1 applic TOPICAL DAILY PRN 07/14/20 08/06/20 Mirabegron [Myrbetriq] 25 mg PO DAILY 07/14/20 08/06/20 Nystatin 100,000 Unit/gm Powd 1 applic TOPICAL BID 07/14/20 08/06/20 [Mycostatin Powder] Tolnaftate [Tinactin] 1 applic TOPICAL DAILY PRN 07/14/20 08/06/20 Rivaroxaban [Xarelto] 10 mg PO DAILY 07/30/20 08/06/20 lamoTRIgine [LaMICtal] See Taper PO DAILY 11/28/20 12/05/20 Allergies Allergy/AdvReac Type Severity Reaction Status Date / Time buspirone [From BuSpar] Allergy Rash/Hives Verified 08/14/20 15:35 haloperidol [From Haldol] Allergy Swelling Verified 08/14/20 15:35 hydroxyzine [From Vistaril] Allergy Rash/Hives Verified 08/14/20 15:35 iodine Allergy Swelling Verified 08/14/20 15:35 Penicillins Allergy Swelling Verified 08/14/20 15:35 prochlorperazine Allergy Rash/Hives Verified 08/14/20 15:35 Sulfa (Sulfonamide Allergy Rash/Hives Verified 08/14/20 15:35 Antibiotics) Tetanus Vaccines and Toxoid Allergy Rash/Hives Verified 08/14/20 15:35 [Tetanus Vaccines & Toxoid] trifluoperazine HCl Allergy Unknown Verified 08/14/20 15:35 [From Stelazine] Review of Systems ROS Statement: Those systems with pertinent positive or pertinent negative responses have been documented in the HPI. ROS Other: All systems not noted in ROS Statement are negative. Past Medical History Past Medical History: Asthma, Heart Failure, COPD, Diabetes Mellitus, JAMIA D/Reflux, Hyperlipidemia, Hypertension, Musculoskeletal Disorder, Osteoarthritis (OA), Pneumonia, Pulmonary Embolus (PE), Thyroid Disorder Additional Past Medical History / Comment(s): chronic low back pain, herniated discs, RLS, leg edema, anemia, gout bilateral feet, hypothyroid, UTIs, hx cellulitis, cataracts, macular degeneration, DM (diet controlled) History of Any Multi-Drug Resistant Organisms: None Reported Past Surgical History: Bariatric Surgery, Heart Catheterization, Hernia Repair, Orthopedic Surgery Additional Past Surgical History / Comment(s): Total Right knee replacement, 3 abdominal hernia repairs, left hip repair d/t fracture, gastric bypass/revision, colonoscopy. Past Anesthesia/Blood Transfusion Reactions: No Reported Reaction Past Psychological History: Anxiety, Bipolar, Depression, Panic Disorder, PTSD Smoking Status: Never smoker Past Alcohol Use History: Occasional - Past Family History Mother Family Medical History: Cancer Additional Family Medical History / Comment(s): lung cancer Father Family Medical History: Diabetes Mellitus Additional Family Medical History / Comment(s): "my dad from a blood clot that traveled from his leg to his lung and also caused a heart attack." Brother(s) Family Medical History: Diabetes Mellitus Sister(s) Additional Family Medical History / Comment(s): "her heart races too fast" General Exam Limitations: no limitations General appearance: alert, in no apparent distress Head exam: Present: atraumatic, normocephalic Eye exam: Present: normal appearance, EOMI ENT exam: Present: mucous membranes moist Neck exam: Present: other (Trachea is in midline) Respiratory exam: Present: normal lung sounds bilaterally. Absent: respiratory distress, wheezes, rales, rhonchi, stridor, chest wall tenderness Cardiovascular Exam: Present: regular rate, normal rhythm, normal heart sounds, other (Normal radial pulses bilaterally) GI/Abdominal exam: Present: soft. Absent: tenderness, guarding Extremities exam: Present: other (Negative Homans sign bilaterally). Absent: tenderness, pedal edema, calf tenderness Neurological exam: Present: alert, oriented X3. Absent: motor sensory deficit Psychiatric exam: Present: anxious Skin exam: Present: warm, dry, intact, normal color Course Vital Signs 08/14/20 08/14/20 08/14/20 15:35 15:46 18:23 Temperature 99.3 F Pulse Rate 109 H 93 Respiratory 20 16 Rate Blood Pressure 115/66 149/91 O2 Sat by Pulse 94 L 98 Oximetry - Reevaluation(s) Reevaluation #1: 08/14/20 19:14 Patient denies development of any new pain or symptoms while in the ED. Patient remains alert and breathing comfortably with a normal room air oxygen satura tion. Patient is aware of her test results, and she feels comfortable going home at this time. Patient was counseled about chest pain, and she was clearly explained return and follow-up instructions. Patient was instructed to follow up closely with her primary care provider. Patient feels comfortable with this plan. EKG Findings - EKG Comments: EKG Findings:: Normal sinus rhythm, ventricular rate of 98 bpm, no ectopy, normal IA and QRS intervals, normal QT interval, normal axis, no ST or T-wave abnormality Medical Decision Making - Medical Decision Making Patient's EKG and chest x-ray are fairly unremarkable, and patient has had 2 negative troponins drawn while in the ED (about 2 hours apart). Patient has had numerous ED visits in the past for similar chest pain, and she just had a recent cardiac workup for chest pain. I do not think that the patient's chest pain is likely cardiac in etiology, and I do not suspect an emergent medical condition. Will discharge patient home at this time. Patient was clearly given return and follow-up instructions. Patient feels comfortable to plan. - Lab Data Result diagrams: 08/14/20 16:06 08/14/20 16:06 Lab Results 08/14/20 08/14/20 08/14/20 Range/Units 16:06 16:06 16:06 WBC 7.0 (3.8-10.6) k/uL RBC 3.71 L (3.80-5.40) m/uL Hgb 10.5 L (11.4-16.0) gm/dL Hct 33.8 L (34.0-46.0) % MCV 91.1 (80.0-100.0) fL MCH 28.2 (25.0-35.0) pg MCHC 30.9 L (31.0-37.0) g/dL RDW 15.0 (11.5-15.5) % Plt Count 290 (150-450) k/uL MPV 7.3 Neutrophils % 61 % Lymphocytes % 28 % Monocytes % 6 % Eosinophils % 2 % Basophils % 0 % Neutrophils # 4.2 (1.3-7.7) k/uL Lymphocytes # 2.0 (1.0-4.8) k/uL Monocytes # 0.4 (0-1.0) k/uL Eosinophils # 0.1 (0-0.7) k/uL Basophils # 0.0 (0-0.2) k/uL PT 9.6 (9.0-12.0) sec INR 0.9 (<1.2) APTT 25.2 (22.0-30.0) sec Sodium 137 (137-145) mmol/L Potassium 3.9 (3.5-5.1) mmol/L Chloride 100 (98-107) mmol/L Carbon Dioxide 31 H (22-30) mmol/L Anion Gap 6 mmol/L BUN 22 H (7-17) mg/dL Creatinine 1.05 H (0.52-1.04) mg/dL Est GFR (CKD-EPI)AfAm 67 (>60 ml/min/1.73 sqM) Est GFR (CKD-EPI)NonAf 58 (>60 ml/min/1.73 sqM) Glucose 81 (74-99) mg/dL Calcium 9.0 (8.4-10.2) mg/dL Magnesium 2.0 (1.6-2.3) mg/dL Total Bilirubin 0.4 (0.2-1.3) mg/dL AST 32 (14-36) U/L ALT 18 (4-34) U/L Alkaline Phosphatase 95 (38-126) U/L Troponin I (0.000-0.034) ng/mL NT-Pro-B Natriuret Pep pg/mL Total Protein 6.6 (6.3-8.2) g/dL Albumin 3.9 (3.5-5.0) g/dL 08/14/20 08/14/20 08/14/20 Range/Units 16:06 16:06 18:20 WBC (3.8-10.6) k/uL RBC (3.80-5.40) m/uL Hgb (11.4-16.0) gm/dL Hct (34.0-46.0) % MCV (80.0-100.0) fL MCH (25.0-35.0) pg MCHC (31.0-37.0) g/dL RDW (11.5-15.5) % Plt Count (150-450) k/uL MPV Neutrophils % % Lymphocytes % % Monocytes % % Eosinophils % % Basophils % % Neutrophils # (1.3-7.7) k/uL Lymphocytes # (1.0-4.8) k/uL Monocytes # (0-1.0) k/uL Eosinophils # (0-0.7) k/uL Basophils # (0-0.2) k/uL PT (9.0-12.0) sec INR (<1.2) APTT (22.0-30.0) sec Sodium (137-145) mmol/L Potassium (3.5-5.1) mmol/L Chloride (98-107) mmol/L Carbon Dioxide (22-30) mmol/L Anion Gap mmol/L BUN (7-17) mg/dL Creatinine (0.52-1.04) mg/dL Est GFR (CKD-EPI)AfAm (>60 ml/min/1.73 sqM) Est GFR (CKD-EPI)NonAf (>60 ml/min/1.73 sqM) Glucose (74-99) mg/dL Calcium (8.4-10.2) mg/dL Magnesium (1.6-2.3) mg/dL Total Bilirubin (0.2-1.3) mg/dL AST (14-36) U/L ALT (4-34) U/L Alkaline Phosphatase (38-126) U/L Troponin I <0.012 <0.012 (0.000-0.034) ng/mL NT-Pro-B Natriuret Pep 302 pg/mL Total Protein (6.3-8.2) g/dL Albumin (3.5-5.0) g/dL - Radiology Data Radiology results: image reviewed (Chest x-ray shows mild pulmonary vascular congestion) Disposition Clinical Impression: Chest pain Disposition: HOME SELF-CARE Condition: Stable Instructions (If sedation given, give patient instructions): Chest Pain (ED) Additional Instructions: Return to the ER immediately should you develop new or worsening pain, shortness of breath, a fever, vomiting, feeling dizzy or faint, or new or worsening s ymptoms. Follow up closely with your primary care provider. Is patient prescribed a controlled substance at d/c from ED?: No Referrals: [facility] [Primary Care Provider] - 1-2 days Time of Disposition: 19:20
[2020-08-14 15:47] VITALS: TEMP 99.3
--- NOTE | 2020-08-14 16:00 | XR ---
EXAMINATION TYPE: XR chest 2V DATE OF EXAM: 08/14/2020 COMPARISON: NONE HISTORY: Chest pain. TECHNIQUE: Frontal and lateral views of the chest are obtained. FINDINGS: There is mild prominence of interstitial and vascular markings. No significant infiltrate, pleural effusion, or pneumothorax seen. The cardiac silhouette size is mildly enlarged. The osseo us structures are intact. IMPRESSION: Mild interstitial edema/atelectasis.
[2020-08-14 16:12] LABS: Basophils % (A) 0 %; Eosinophils # (A) 0.1 k/uL (0-0.7); Eosinophils % (A) 2 %; HCT 33.8 % (34.0-46.0); HGB 10.5 gm/dL (11.4-16.0); Lymphocytes % (A) 28 %; MCH 28.2 pg (25.0-35.0); MCHC 30.9 g/dL (31.0-37.0); MCV 91.1 fL (80.0-100.0); Mean Platelet Volume 7.3; Monocytes # (A) 0.4 k/uL (0-1.0); Monocytes % (A) 6 %; Neutrophils # (A) 4.2 k/uL (1.3-7.7); Neutrophils % (A) 61 %; Platelet Count 290 k/uL (150-450); RBC 3.71 m/uL (3.80-5.40)
[2020-08-14 16:27] LABS: INR 0.9 (<1.2); Partial Thromboplastin Time 25.2 sec (22.0-30.0); Prothrombin Time 9.6 sec (9.0-12.0)
[2020-08-14 16:33] LABS: Albumin 3.9 g/dL (3.5-5.0); Potassium 3.9 mmol/L (3.5-5.1); Total Bilirubin 0.4 mg/dL (0.2-1.3); Total Protein 6.6 g/dL (6.3-8.2)
[2020-08-14 18:24] VITALS: BP 149/91; PULSE 93; RESP 16
[2020-08-14] MEDS ORDERED: ACETAMINOPHEN TAB 500 MG TAB PO STA (18:30)
== END 2020-08-14 19:20 | disposition home or self-care (01) ==
LOC: EC 15:21
DX: R07.9 Chest pain, unspecified (principal); I11.0 Hypertensive heart disease with heart failure; I50.9 Heart failure, unspecified; J44.9 Chronic obstructive pulmonary disease, unspecified; E03.9 Hypothyroidism, unspecified; M19.90 Unspecified osteoarthritis, unspecified site; G89.29 Other chronic pain; M54.5 Low back pain; G25.81 Restless legs syndrome; K21.9 Gastro-esophageal reflux disease without esophagitis; M10.9 Gout, unspecified; F43.10 Post-traumatic stress disorder, unspecified; F41.9 Anxiety disorder, unspecified; F32.9 Major depressive disorder, single episode, unspecified; Z79.899 Other long term (current) drug therapy; Z79.890 Hormone replacement therapy; Z79.1 Long term (current) use of non-steroidal anti-inflammatories (NSAID); Z79.01 Long term (current) use of anticoagulants; Z88.8 Allergy status to other drugs, medicaments and biological substances; Z91.048 Other nonmedicinal substance allergy status; Z88.0 Allergy status to penicillin; Z88.2 Allergy status to sulfonamides; Z88.7 Allergy status to serum and vaccine; Z98.84 Bariatric surgery status; Z86.711 Personal history of pulmonary embolism; Z96.651 Presence of right artificial knee joint
CPT/HCPCS: 36415; 71046; 80053; 83735; 83880; 84484; 85025; 85610; 85730; 93005; 99285

== ENCOUNTER 2020-08-16 12:08 | Inpatient (IN) | payer MEDICARE, OTHER ==
[2020-08-16] MEDS ORDERED: SODIUM CHLORIDE 0.9% 1,000 ML IV ONE (12:26)
[2020-08-16] MEDS ORDERED: ONDANSETRON 4 MG/2 ML VIAL IVP STA (12:26)
[2020-08-16] MEDS ORDERED: MORPHINE SULFATE 4 MG/ML SYRINGE IV STA (12:26)
[2020-08-16 13:10] LABS: Basophils # (A) 0.1 k/uL (0-0.2); Basophils % (A) 1 %; Eosinophils # (A) 0.1 k/uL (0-0.7); Eosinophils % (A) 2 %; HGB 10.9 gm/dL (11.4-16.0); Lymphocytes # (A) 1.2 k/uL (1.0-4.8); Lymphocytes % (A) 19 %; MCHC 32.9 g/dL (31.0-37.0); MCV 91.1 fL (80.0-100.0); Mean Platelet Volume 7.1; Monocytes # (A) 0.4 k/uL (0-1.0); Monocytes % (A) 6 %; Neutrophils # (A) 4.3 k/uL (1.3-7.7); Neutrophils % (A) 68 %; Platelet Count 280 k/uL (150-450); RBC 3.62 m/uL (3.80-5.40); RDW 14.6 % (11.5-15.5); WBC 6.4 k/uL (3.8-10.6)
[2020-08-16 13:20] LABS: Calcium 9.5 mg/dL (8.4-10.2); Potassium 4.3 mmol/L (3.5-5.1)
[2020-08-16 13:21] LABS: INR 0.9 (<1.2); Partial Thromboplastin Time 27.8 sec (22.0-30.0); Prothrombin Time 9.5 sec (9.0-12.0)
[2020-08-16] MEDS ORDERED: MORPHINE SULFATE 4 MG/ML SYRINGE IV ONE (13:43)
--- NOTE | 2020-08-16 13:43 | ED ---
Fall HPI - General Chief Complaint: Fall Stated Complaint: left hip and knee pain Time Seen by Provider: 08/16/20 12:18 Source: patient Mode of arrival: EMS - History of Present Illness Initial Comments: This 60-year-old female presents complaining of a fall which occurred approx imately 1.5 hours prior to arrival. She states that her left knee has been going out on her. She has been having problems with her left knee recently and states that she has severe arthritis. She states that it has gone out 3 times less far today. She fell to the ground and was unable to get up. She now is having severe pain to her left hip, left femur, and left knee. She denies any head injuries or neck injuries. She denies any other extremity injuries, chest pain, or abdominal pain. She is on blood thinners. She states that the pain is severe. She does present via EMS. No other injuries or complaints or modifying factors. She does relate that she had a previous fracture to her left hip with [place] [address] [place]. - Related Data Home Medications Medication Instructions Recorded Confirmed Carvedilol [Coreg] 25 mg PO BID 06/07/17 08/06/20 Levothyroxine Sodium [Synthroid] 137 mcg PO DAILY 10/20/17 08/06/20 Montelukast [Singulair] 10 mg PO DAILY 06/28/18 08/06/20 DULoxetine HCL [Cymbalta] 60 mg PO BID 08/15/18 08/06/20 rOPINIRole HCL [Requip] 4 mg PO BID 11/18/18 08/06/20 Torsemide [Demadex] 50 mg PO SUTUTHSA 12/15/18 08/06/20 Torsemide [Demadex] 100 mg PO MOWEFR 12/15/18 08/06/20 Acetaminophen [Tylenol 8 Hour] 650 mg PO TID 08/14/19 08/06/20 Loratadine [Claritin] 10 mg PO DAILY 08/14/19 08/06/20 Magnesium Oxide [Mag-Ox] 400 mg PO DAILY 08/14/19 08/06/20 Multivitamins, Thera [Multivitamin 1 tab PO DAILY 08/14/19 08/06/20 (formulary)] Omeprazole 20 mg PO DAILY 08/14/19 08/06/20 allopurinoL [Zyloprim] 100 mg PO DAILY 08/14/19 08/06/20 Ferrous Gluconate 324 mg PO BID 01/19/20 08/06/20 Gabapentin [Neurontin] 400 mg PO TID 01/19/20 08/06/20 Melatonin 10 mg PO HS 01/19/20 08/06/20 Diclofenac Sodium [Voltaren Gel] 4 gram TOPICAL QID PRN 04/03/20 08/06/20 Potassium Chloride ER [K-Dur 10] 10 meq PO DAILY 04/03/20 08/06/20 Cholecalciferol [Vitamin D3 (25 5,000 unit PO DAILY 04/28/20 08/06/20 Mcg = 1000 Iu)] QUEtiapine [SEROquel] 25 mg PO TID 05/12/20 08/06/20 Sennosides/Docusate Sodium [Senna 2 tab PO HS 05/12/20 08/06/20 Plus 8.6-50 mg Tablet] L.acidoph,Paracasei, B.lactis 1 cap PO DAILY 06/02/20 08/06/20 [Probiotic] Loperamide [Imodium] 2 mg PO DAILY PRN 06/02/20 08/06/20 Paliperidone IM [Invega Sustenna] 156 mg IM Q28D 06/13/20 08/06/20 Meloxicam [Mobic] 7.5 mg PO DAILY 06/21/20 08/06/20 Albuterol Inhaler [Ventolin Hfa 2 puff INHALATION RT-Q4H PRN 07/14/20 08/06/20 Inhaler] Lidocaine 4% Cream [Lmx 4] 1 applic TOPICAL DAILY PRN 07/14/20 08/06/20 Mirabegron [Myrbetriq] 25 mg PO DAILY 07/14/20 08/06/20 Nystatin 100,000 Unit/gm Powd 1 applic TOPICAL BID 07/14/20 08/06/20 [Mycostatin Powder] Tolnaftate [Tinactin] 1 applic TOPICAL DAILY PRN 07/14/20 08/06/20 Rivaroxaban [Xarelto] 10 mg PO DAILY 07/30/20 08/06/20 lamoTRIgine [LaMICtal] See Taper PO DAILY 07/30/20 08/06/20 Allergies Allergy/AdvReac Type Severity Reaction Status Date / Time buspirone [From BuSpar] Allergy Rash/Hives Verified 08/16/20 12:17 haloperidol [From Haldol] Allergy Swelling Verified 08/16/20 12:17 hydroxyzine [From Vistaril] Allergy Rash/Hives Verified 08/16/20 12:17 iodine Allergy Swelling Verified 08/16/20 12:17 Penicillins Allergy Swelling Verified 08/16/20 12:17 prochlorperazine Allergy Rash/Hives Verified 08/16/20 12:17 Sulfa (Sulfonamide Allergy Rash/Hives Verified 08/16/20 12:17 Antibiotics) Tetanus Vaccines and Toxoid Allergy Rash/Hives Verified 08/16/20 12:17 [Tetanus Vaccines & Toxoid] trifluoperazine HCl Allergy Unknown Verified 08/16/20 12:17 [From Stelazine] Review of Systems ROS Statement: Those systems with pertinent positive or pertinent negative responses have been documented in the HPI. ROS Other: All systems not noted in ROS Statement are negative. Past Medical History Past Medical History: Asthma, Heart Failure, COPD, Diabetes Mellitus, GERD/Reflux, Hyperlipidemia, Hypertension, Musculoskeletal Disorder, Osteoarthritis (OA), Pneumonia, Pulmonary Embolus (PE), Thyroid Disorder Additional Past Medical History / Comment(s): chronic low back pain, herniated discs, RLS, leg edema, anemia, gout bilateral feet, hypothyroid, UTIs, hx cellulitis, cataracts, macular degeneration, DM (diet controlled) History of Any Multi-Drug Resistant Organisms: None Reported Past Surgical History: Bariatric Surgery, Heart Catheterization, Hernia Repair, Orthopedic Surgery Additional Past Surgical History / Comment(s): Total Right knee replacement, 3 abdominal hernia repairs, left hip repair d/t fracture, gastric bypass/revision, colonoscopy. Past Anesthesia/Blood Transfusion Reactions: No Reported Reaction Past Psychological History: Anxiety, Bipolar, Depression, Panic Disorder, PTSD Smoking Status: Never smoker Past Alcohol Use History: Occasional - Past Family History Mother Family Medical History: Cancer Additional Family Medical History / Comment(s): lung cancer Father Family Medical History: Diabetes Mellitus Additional Family Medical History / Comment(s): "my dad from a blood clot t hat traveled from his leg to his lung and also caused a heart attack." Brother(s) Family Medical History: Diabetes Mellitus Sister(s) Additional Family Medical History / Comment(s): "her heart races too fast" General Exam Limitations: no limitations General appearance: alert, other (Severe obesity noted) Head exam: Present: atraumatic, normocephalic Eye exam: Present: normal appearance ENT exam: Present: normal exam Neck exam: Present: normal inspection. Absent: tenderness Respiratory exam: Present: normal lung sounds bilaterally. Absent: respiratory distress Cardiovascular Exam: Present: regular rate, normal rhythm GI/Abdominal exam: Present: soft. Absent: distended, tenderness, guarding, rebound Extremities exam: Present: other (There is severe tenderness upon palpation of the left knee, left femur, and left hip. Range of motion is even difficult to attempt due to her severe pain. It is difficult to determine if there is any need joint swelling due to the significant obes) Back exam: Present: normal inspection. Absent: tenderness Neurological exam: Present: alert, oriented X3 Psychiatric exam: Present: normal affect, normal mood Skin exam: Present: intact. Absent: rash Course Vital Signs 08/16/20 08/16/20 08/16/20 12:17 14:01 15:22 Temperature 98.0 F Pulse Rate 99 79 83 Respiratory 18 18 18 Rate Blood Pressure 147/82 166/85 161/83 O2 Sat by Pulse 99 99 98 Oximetry Medical Decision Making - Medical Decision Making The patient was seen and examined. All diagnostics were reviewed. She does receive morphine 4 mg IV and Zofran 4 mg IV. EKG is done and this shows a normal sinus rhythm at a rate of 87. There is no acute ST wave changes identified. The OK intervals 134, QRS duration is 90, and QTC intervals 438. The patient had x-rays done of her left hip left knee left femur, AP pelvis, and chest. No acute process overall is identified. She does have significant arthritis of her left knee. The patient states that the last time she had a left hip fracture they were unable to identify it by x-ray and required a computed tomography scan. A computed tomography scan is done of her left hip and left knee. This does not show any evidence of fracture. The patient also had 4 mg of morphine IV. This did not seem to alleviate her pain and therefore another 4 mg of morphine was given intravenously with improved relief. She is given Zofran for nausea prevention. The laboratory does show a degree of anemia and mild renal insufficiency. The patient is morbidly obese at 182 kg. She states that she will not be able to be discharged home as she cannot ambulate and she is worried about falling once again. Case is discussed with Dr. Denise and he is agreeable to admission with orthopedics and physical therapy to consult and treat. - Lab Data Result diagrams: 08/16/20 13:08/16/20 13: Lab Results 08/16/20 08/16/20 08/16/20 Range/Units 13: 13: 13: WBC 6.4 (3.8-10.6) k/uL RBC 3.62 L (3.80-5.40) m/uL Hgb 10.9 L (11.4-16.0) gm/dL Hct 33.0 L (34.0-46.0) % MCV 91.1 (80.0-100.0) fL MCH 30.0 (25.0-35.0) pg MCHC 32.9 (31.0-37.0) g/dL RDW 14.6 (11.5-15.5) % Plt Count 280 (150-450) k/uL MPV 7.1 Neutrophils % 68 % Lymphocytes % 19 % Monocytes % 6 % Eosinophils % 2 % Basophils % 1 % Neutrophils # 4.3 (1.3-7.7) k/uL Lymphocytes # 1.2 (1.0-4.8) k/uL Monocytes # 0.4 (0-1.0) k/uL Eosinophils # 0.1 (0-0.7) k/uL Basophils # 0.1 (0-0.2) k/uL PT 9.5 (9.0-12.0) sec INR 0.9 (<1.2) APTT 27.8 (22.0-30.0) sec Sodium 138 (137-145) mmol/L Potassium 4.3 (3.5-5.1) mmol/L Chloride 101 (98-107) mmol/L Carbon Dioxide 32 H (22-30) mmol/L Anion Gap 5 mmol/L BUN 36 H (7-17) mg/dL Creatinine 1.25 H (0.52-1.04) mg/dL Est GFR (CKD-EPI)AfAm 55 (>60 ml/min/1.73 sqM) Est GFR (CKD-EPI)NonAf 47 (>60 ml/min/1.73 sqM) Glucose 72 L (74-99) mg/dL Calcium 9.5 (8.4-10.2) mg/dL Disposition Clinical Impression: Fall, Strain of left knee, Contusion of left hip, Morbid obesity, Anemia, Hypertension, Inability to ambulate due to multiple joints Disposition: ADMITTED IP TO THIS [facility] Condition: Fair Is patient prescribed a controlled substance at d/c from ED?: No Referrals: [facility] [Primary Care Provider] - 1-2 days Time of Disposition: 17:17 Decision Date: 08/16/20 Decision Time: 17:17
--- NOTE | 2020-08-16 13:45 | XR ---
EXAMINATION TYPE: XR chest 2V DATE OF EXAM: 08/16/2020 COMPARISON: 08/14/2020 TECHNIQUE: PA and lateral views submitted. HISTORY: Pain post fall FINDINGS: Heart is enlarged. There is coarsened interstitium but no pneumothorax. Hypertrophic and degenerative change of the spine. IMPRESSION: 1. Cardiomegaly. No interval change from prior exam. Mild interstitial prominence could represent chr onic interstitial lung disease, venous congestion or interstitial pneumonitis but is stable.
--- NOTE | 2020-08-16 13:47 | XR ---
EXAMINATION TYPE: XR femur LT DATE OF EXAM: 08/16/2020 COMPARISON: NONE HISTORY: Pain TECHNIQUE: 4 views submitted FINDINGS: Arthropathy of the hip. There is postsurgical changes. Severe arthropathy of the knee joint . Vascular calcifications noted. IMPRESSION: 1. Postsurgical change and arthropathy.
--- NOTE | 2020-08-16 13:48 | XR ---
EXAMINATION TYPE: XR knee complete LT DATE OF EXAM: 08/16/2020 COMPARISON: NONE HISTORY: Pain TECHNIQUE: Three views are submitted. FINDINGS: There are severe arthropathy of the knee joint. Diffuse osteopenia. No acute fracture. Soft tissue ca lcifications noted. IMPRESSION: 1. Severe arthropathy.
--- NOTE | 2020-08-16 13:49 | XR ---
EXAMINATION TYPE: XR Hip Complete LT DATE OF EXAM: 08/16/2020 COMPARISON: NONE HISTORY: Pain TECHNIQUE: 2 views submitted FINDINGS: There is no evidence of erosive change or acute fracture. Arthropathy of the hip joint. There is post surgical changes. Exam limited by resolution. IMPRESSION: 1. No evidence of acute fracture or dislocation.
--- NOTE | 2020-08-16 13:50 | XR ---
EXAMINATION TYPE: XR pelvis AP view DATE OF EXAM: 08/16/2020 COMPARISON: NONE HISTORY: Pain The osseous structures are intact and the joint spaces are preserved. No acute fracture is seen. Vi sualized bowel gas pattern is nonspecific. Arthropathy of both hips. Postsurgical change left hip. H ypertrophic change lower lumbar spine. IMPRESSION: 1. No acute fracture.
[2020-08-16] MEDS ORDERED: ALPRAZolam 0.5 MG TAB PO STA (14:58)
--- NOTE | 2020-08-16 15:36 | CT ---
EXAMINATION TYPE: CT hip LT wo con DATE OF EXAM: 08/16/2020 COMPARISON: X-ray 08/16/2020 HISTORY: left hip pain post fall CT DLP: 1991.1 mGycm Automated exposure control for dose reduction was used. FINDINGS: There is postsurgical change involving the femur. The pubic rami are intact. No diagnostic evidence o f acute fracture or pubic rami. Surgical staple change involving the femoral head and neck region alfonso ears to be intact. No definite acute fracture or dislocation. IMPRESSION: POSTSURGICAL CHANGES WITH NO DEFINITE ACUTE FRACTURE.
--- NOTE | 2020-08-16 15:40 | CT ---
EXAMINATION TYPE: CT knee LT wo con DATE OF EXAM: 08/16/2020 COMPARISON: Left knee x-ray earlier today HISTORY: left knee pain post fall CT DLP: 1559.7 mGycm Automated exposure control for dose reduction was used. FINDINGS: No acute fracture or dislocation is seen. Moderate to severe tricompartment joint space loss and spur ring with most prominent narrowing patellofemoral compartment is redemonstrated. There is extensive s ubchondral cystic change medial tibiofemoral compartment. There is nonspecific moderate suprapatellar joint effusion. No popliteal cyst. Extensor tendon is intact. IMPRESSION: As above.
[2020-08-16] MEDS ORDERED: NALOXONE 0.4 MG/ML 1 ML VIAL IV PRN (17:18)
[2020-08-16] MEDS ORDERED: ONDANSETRON 4 MG/2 ML VIAL IVP PRN (17:18)
[2020-08-16] MEDS: MORPHINE SULFATE 4 MG/ML SYRINGE IV PRN ×2 (17:43→21:24)
[2020-08-16] MEDS ORDERED: TOLNAFTATE 108 GM TOPICAL PRN (18:32)
[2020-08-16] MEDS ORDERED: LOPERAMIDE 2 MG CAP PO PRN (18:32)
[2020-08-16] MEDS ORDERED: LIDOCAINE 4% CREAM 5 GM TUBE TOPICAL PRN (18:32)
[2020-08-16] MEDS ORDERED: DICLOFENAC SODIUM GEL 100 GM TUBE TOPICAL PRN (18:32)
[2020-08-16] MEDS ORDERED: ALBUTEROL NEBULIZED 2.5 MG/3 ML INHALATION PRN (18:32)
[2020-08-16] MEDS: MELATONIN 5 MG TABLET PO SCH (21:18)
[2020-08-16] MEDS: carvediloL 12.5 MG TAB PO SCH (21:18)
[2020-08-16] MEDS: SENNOSIDES-DOCUSATE SODIUM 1 EACH TAB PO SCH (21:18)
[2020-08-16] MEDS: GABAPENTIN 400 MG CAP PO SCH (21:19)
[2020-08-16] MEDS: ACETAMINOPHEN TAB 325 MG TAB PO SCH (21:19)
[2020-08-16] MEDS: DULoxetine HCL 60 MG CAPSULE.DR PO SCH (21:19)
[2020-08-16] MEDS: FERROUS SULFATE 325 MG TAB PO SCH (21:19)
[2020-08-16] MEDS: NYSTATIN 100,000 UNIT/GM POWD 15 GM TOPICAL SCH (21:20)
[2020-08-16] MEDS: rOPINIRole HCL 4 MG TABLET PO SCH (21:20)
[2020-08-16] MEDS: QUEtiapine 25 MG TAB PO SCH (21:20)
--- NOTE | 2020-08-16 23:17 | P.HPIM ---
History of Present Illness H&P Date: 08/16/20 Chief Complaint: left hip and right knee severe pain post fall, moderate to severe aortic st 60-year-old morbidly obese female one of [facility] patient who was seen in 07/30/2020 for recurrent chest pain and severe dyspnea and shortness of breath or patient at the time found to have gallbladder dyskinesia along with severe aortic stenosis was diagnoses through an echocardiogram. Patient had lost heart catheter in 2018, patient continued to have biliary colic with significant gallbladder dietitian without any stone and was seen general surgery and was supposed to be clear for surgery for gallbladder in the next few weeks. Apparently patient seen her sales and marketing intern Dr. Lenz was clear for surgery recently by him. Patient ended up in [facility] apartment today and [place] following fall occurred around 10:00 in the morning were patient was walking felt her knee and hips are giving out she fell on the left knee and hip and developed to have significant pain and discomfort. X-ray did not show any fracture of the time. Patient had severe debility not been able to ambulate and walk does not have any help at home and was not safe patient will be seen physical therapy and aids social worker might require more home care held further or replacement in subacute yamil ab until she is recovered and able to take care of her own. Review of Systems CONSTITUTIONAL: morbidly obese no acute respiratory distress. EYES: No icterus sclerae, no conjunctivitis. EARS, NOSE, MOUTH, THROAT, and FACE: No sore throat, lymphadenopathy, carotid bruits or deformity. RESPIRATORY: slight dyspnea and shortness of breath CARDIOVASCULAR: no chest painCP, Palpitation, PND, Orthopnea, or angina. GASTROINTESTINAL: No Abd pain, Nausea or vomiting, no Diarrhea or constipation, No GI Bleed, no distention or masses. GENITOURINARY: Negative for Hematuria or UTI, no kidney stones.mild incontinence INTEGUMENT/BREAST: Negative for any muscular injury with mild os teoarthritis..ssignificant arthralgia and lower back HEMATOLOGIC/LYMPHATIC: Negative for bleed or purpura. MUSCULOSKELTAL: Negative for Myalgia or arthralgia.generalized arthralgia and arthritis NEURLOGICAL: No LOC, Sz or syncope, blurred vision dizziness or abnormality.. BEHAVIORAL/PSYCH: Negative. ENDOCRINE: Negative. Past Medical History Past Medical History: Asthma, Heart Failure, COPD, Diabetes Mellitus, GERD/Reflux, Hyperlipidemia, Hypertension, Musculoskeletal Disorder, Osteoarthritis (OA), Pneumonia, Pulmonary Embolus (PE), Thyroid Disorder Additional Past Medical History / Comment(s): chronic low back pain, herniated discs, RLS, leg edema, anemia, gout bilateral feet, hypothyroid, UTIs, hx cellulitis, cataracts, macular degeneration, DM (diet controlled) History of Any Multi-Drug Resistant Organisms: None Reported Past Surgical History: Bariatric Surgery, Heart Catheterization, Hernia Repair, Orthopedic Surgery Additional Past Surgical History / Comment(s): Total Right knee replacement, 3 abdominal hernia repairs, left hip repair d/t fracture, gastric bypass/revision, colonoscopy. Past Anesthesia/Blood Transfusion Reactions: No Reported Reaction Past Psychological History: Anxiety, Bipolar, Depression, Panic Disorder, PTSD Additional Psychological History / Comment(s): Borderline personality disorder. She states she sees a psychiatrist at [facility] and has a employment case manager there. Pt has a legal guardian , Taty Mosher. She cannot drive, she either takes the bus to [employer]. She uses a walker to ambulate. She has a glucometer but no longer has to monitor her blood sugars/is out of equipment. Pt states she recently attempted suicide with OD of tramadol. She states she no longer feels suicidal and has no suicidal thoughts/plans. Smoking Status: Never smoker Past Alcohol Use History: Occasional Additional Past Alcohol Use History / Comment(s): In -' was an everyday drinker Past Drug Use History: None Reported - Past Family History Mother Family Medical History: Cancer Additional Family Medical History / Comment(s): lung cancer Father Family Medical History: Diabetes Mellitus Additional Family Medical History / Comment(s): "my dad from a blood clot that traveled from his leg to his lung and also caused a heart attack." Brother(s) Family Medical History: Diabetes Mellitus Sister(s) Additional Family Medical History / Comment(s): "her heart races too fast" Medications and Allergies Home Medications Medication Instructions Recorded Confirmed Type Carvedilol [Coreg] 25 mg PO BID 06/07/17 08/16/20 History Levothyroxine Sodium [Synthroid] 137 mcg PO DAILY 10/20/17 08/16/20 History Montelukast [Singulair] 10 mg PO DAILY 06/28/18 08/16/20 History DULoxetine HCL [Cymbalta] 60 mg PO BID 08/15/18 08/16/20 History rOPINIRole HCL [Requip] 4 mg PO BID 11/18/18 08/16/20 History Torsemide [Demadex] 50 mg PO DAILY 12/15/18 08/16/20 History Acetaminophen [Tylenol 8 Hour] 650 mg PO TID 08/14/19 08/16/20 History Loratadine [Claritin] 10 mg PO DAILY 08/14/19 08/16/20 History Magnesium Oxide [Mag-Ox] 400 mg PO DAILY 08/14/19 08/16/20 History Multivitamins, Thera [Multivitamin 1 tab PO DAILY 08/14/19 08/16/20 History (formulary)] Omeprazole 20 mg PO DAILY 08/14/19 08/16/20 History allopurinoL [Zyloprim] 100 mg PO DAILY 08/14/19 08/16/20 History Ferrous Gluconate 324 mg PO BID 01/19/20 08/16/20 History Gabapentin [Neurontin] 400 mg PO TID 01/19/20 08/16/20 History Melatonin 10 mg PO HS 01/19/20 08/16/20 History Diclofenac Sodium [Voltaren Gel] 4 gram TOPICAL QID PRN 04/03/20 08/16/20 History Potassium Chloride ER [K-Dur 10] 10 meq PO DAILY 04/03/20 08/16/20 History Cholecalciferol [Vitamin D3 (25 5,000 unit PO DAILY 04/28/20 08/16/20 History Mcg = 1000 Iu)] QUEtiapine [SEROquel] 25 mg PO TID 05/12/20 08/16/20 History Sennosides/Docusate Sodium [Senna 2 tab PO HS 05/12/20 08/16/20 History Plus 8.6-50 mg Tablet] L.acidoph,Paracasei, B.lactis 1 cap PO DAILY 06/02/20 08/16/20 History [Probiotic] Loperamide [Imodium] 2 mg PO DAILY PRN 06/02/20 08/16/20 History Paliperidone IM [Invega Sustenna] 156 mg IM Q28D 06/13/20 08/16/20 History Meloxicam [Mobic] 7.5 mg PO DAILY 06/21/20 08/16/20 History Albuterol Inhaler [Ventolin Hfa 2 puff INHALATION RT-Q4H PRN 07/14/20 08/16/20 History Inhaler] Lidocaine 4% Cream [Lmx 4] 1 applic TOPICAL DAILY PRN 07/14/20 08/16/20 History Mirabegron [Myrbetriq] 25 mg PO DAILY 07/14/20 08/16/20 History Nystatin 100,000 Unit/gm Powd 1 applic TOPICAL BID 07/14/20 08/16/20 History [Mycostatin Powder] Tolnaftate [Tinactin] 1 applic TOPICAL DAILY PRN 07/14/20 08/16/20 History Rivaroxaban [Xarelto] 10 mg PO DAILY 07/30/20 08/16/20 History Lovastatin [Mevacor] 10 mg PO DAILY 08/16/20 08/16/20 History lamoTRIgine [LaMICtal] 200 mg PO DAILY 08/16/20 08/16/20 History Allergies Allergy/AdvReac Type Severity Reaction Status Date / Time buspirone [From BuSpar] Allergy Rash/Hives Verified 08/16/20 17:51 haloperidol [From Haldol] Allergy Swelling Verified 08/16/20 17:51 hydroxyzine [From Vistaril] Allergy Rash/Hives Verified 08/16/20 17:51 iodine Allergy Swelling Verified 08/16/20 17:51 Penicillins Allergy Swelling Verified 08/16/20 17:51 prochlorperazine Allergy Rash/Hives Verified 08/16/20 17:51 Sulfa (Sulfonamide Allergy Rash/Hives Verified 08/16/20 17:51 Antibiotics) Tetanus Vaccines and Toxoid Allergy Rash/Hives Verified 08/16/20 17:51 [Tetanus Vaccines & Toxoid] trifluoperazine HCl Allergy Unknown Verified 08/16/20 17:51 [From Stelazine] Physical Exam Vitals: Vital Signs Temp Pulse Pulse Resp BP BP Pulse Ox 08/16/20 19:53 90 16 08/16/20 18:50 97.8 F 90 16 123/72 96 08/16/20 18:43 97.5 F L 86 18 127/76 98 08/16/20 15:22 83 18 161/83 98 08/16/20 14:01 79 18 166/85 99 08/16/20 12:17 98.0 F 99 18 147/82 99 Intake and Output 08/16/20 08/16/20 08/16/20 06:59 14:59 22:59 Intake Total 720 Balance 720 Intake: Oral 720 Other: Voiding Method Indwelling Catheter Weight 182.798 kg 182.798 kg General Appearance: Alert, cooperative, no distress, appears stated age.morbidly obese Neck HEENT: Supple, no lymphadenopathy, no thyroid enlargement, no carotid bruits. Lungs: Clear to auscultation without crackles or wheezes no rhonchi, no deformity. Chest Wall: Chest wall normal expansion with deep inspiration no tenderness and no deformity was found on exam, no costochondral pain or discomfort. Heart: Regular rate and rhythm, S1, S2 normal, no murmur, rub or gallop. Back: Ssevere discomfort in lower lumbar area with no mass no rash. Abdomen: Soft, non-tender, bowel sounds active all four quadrants, no masses, no organomegaly. Extremities: 2+ edema there is scar tissue over the right knee from old surgery, left knee and slightly the hip has mild limita. Pulses: 2+ and symmetric. Skin: Skin color, texture, tugor normal, no rashes or lesions. Neurologic: Alert oriented x3 cranial nerves II through XII intact, no motor deficit, no abnormal balance or gait. Results CBC & Chem 7: 08/16/20 13:01 08/16/20 13:01 Labs: Abnormal Lab Results - Last 24 Hours (Table) 08/16/20 08/16/20 Range/Units 13:01 13:01 RBC 3.62 L (3.80-5.40) m/uL Hgb 10.9 L (11.4-16.0) gm/dL Hct 33.0 L (34.0-46.0) % Carbon Dioxide 32 H (22-30) mmol/L BUN 36 H (7-17) mg/dL Creatinine 1.25 H (0.52-1.04) mg/dL Glucose 72 L (74-99) mg/dL Thrombosis Risk Factor Assmnt - DVT/VTE Prophylaxis DVT/VTE Prophylaxis: Pharmacologic Prophylaxis ordered - Choose All That Apply Each Factor Represents 1 point: Age 41-60 years, Obesity (BMI >25), Swollen legs (current) Each Risk Factor Represents 3 Points: Family history of DVT/PE Thrombosis Risk Factor Assessment Total Risk Factor Score: 6 Thrombosis Risk Factor Assessment Level: High Risk Assessment and Plan Assessment: 1 acute fall and injury: No fracture was found at the time that patient has not been able to ambulate orthopedic consult to recheck the x-ray and see if need further testing including CT or bone scan specially if not quite sure about the left hip and the knee. 2 debility not been able to ambulate and walk after fall with injury patient was start physical therapy titrated gradually. 3 moderate severe aortic stenosis: Patient is seen cardiology no intervention required this point. 4 biliary colic with positive result was seen and recommended laparoscopy, cholecystectomy which will be done by general surgery in the next 2 weeks. 5 Hypothyroidism: Has been on levothyroxine 137 g daily. 6 history of chronic pulmonary embolism which patient remain on anticoagulation with Xarelto. 7 history of bipolar disorders and depression: Remain on Cymbalta along with Lamictal. 8 Chronic ALLERGY: Remain on Singulair and loratadine. 9 atherosclerotic heart disease: Remain on Coreg along with atorvastatin. 10 chronic anemia: Mostly iron deficiency continue iron supplement refer for iron infusion if needed. 11 gout: Has been on allopurinol with no flareup. 12 asthma/reactive airway: Remain on albuterol inhaler every 4 hours as needed. CODE STATUS: Full code. Admit patient to the inpatient service for 1-2 nights stay.
[2020-08-17] MEDS: MORPHINE SULFATE 4 MG/ML SYRINGE IV PRN ×3 (03:58→13:15)
[2020-08-17] MEDS: LEVOTHYROXINE 137 MCG TAB PO SCH (05:39)
[2020-08-17 07:13] LABS: Glucose,Whole Blood 68 mg/dL (75-99)
[2020-08-17 07:28] LABS: Glucose,Whole Blood 97 mg/dL (75-99)
[2020-08-17] MEDS: RIVAROXABAN 10 MG TAB PO SCH (08:15)
[2020-08-17] MEDS: LACTOBACILLUS ACIDOPH & BULGAR 1 EACH PACKET PO SCH (08:16)
[2020-08-17] MEDS: rOPINIRole HCL 4 MG TABLET PO SCH ×2 (08:16→20:46)
[2020-08-17] MEDS: DULoxetine HCL 60 MG CAPSULE.DR PO SCH ×2 (08:17→20:45)
[2020-08-17] MEDS: carvediloL 12.5 MG TAB PO SCH ×2 (08:17→16:36)
[2020-08-17] MEDS: TORSEMIDE 20 MG TAB PO SCH (08:18)
[2020-08-17] MEDS: QUEtiapine 25 MG TAB PO SCH ×3 (08:18→20:46)
[2020-08-17] MEDS: ACETAMINOPHEN TAB 325 MG TAB PO SCH ×3 (08:19→20:44)
[2020-08-17] MEDS: GABAPENTIN 400 MG CAP PO SCH ×3 (08:19→20:45)
[2020-08-17] MEDS: FERROUS SULFATE 325 MG TAB PO SCH ×2 (08:19→20:45)
[2020-08-17] MEDS: MELOXICAM 7.5 MG TAB PO SCH (08:20)
[2020-08-17] MEDS: NYSTATIN 100,000 UNIT/GM POWD 15 GM TOPICAL SCH ×2 (08:22→20:48)
[2020-08-17] MEDS: POTASSIUM CHLORIDE ER 10 MEQ TAB.ER.PRT PO SCH (08:28)
[2020-08-17] MEDS: NON FORMULARY DRUG (Mirabegron [Myrbetriq] 25 MG Tab.Er.24h) PO SCH (08:29)
[2020-08-17] MEDS: MAGNESIUM OXIDE 400 MG TAB PO SCH (08:36)
[2020-08-17] MEDS: MULTIVITAMINS, THERA 1 EACH TAB PO SCH (08:36)
[2020-08-17] MEDS: CHOLECALCIFEROL 1,000 UNIT TAB PO SCH (08:36)
[2020-08-17] MEDS: LORATADINE 10 MG TAB PO SCH (08:37)
[2020-08-17] MEDS: MONTELUKAST 10 MG TAB PO SCH (08:37)
[2020-08-17] MEDS: PANTOPRAZOLE 40 MG TABLET PO SCH (08:37)
[2020-08-17] MEDS: lamoTRIgine 100 MG TAB PO SCH (08:37)
[2020-08-17] MEDS: ATORVASTATIN 10 MG TAB PO SCH (08:37)
[2020-08-17] MEDS: allopurinoL 100 MG TAB PO SCH (08:37)
[2020-08-17] MEDS ORDERED: NON FORMULARY DRUG (Omeprazole [Omeprazole] 20 MG Capsule.Dr) PO SCH (09:00)
--- NOTE | 2020-08-17 10:36 | P.PN ---
Subjective Progress Note Date: 08/17/20 HISTORY OF PRESENT ILLNESS 60-year-old morbidly obese female one of [facility] patient who was seen in 07/30/2020 for recurrent chest pain and severe dyspnea and shortness of breath or patient at the time found to have gallbladder dyskinesia along with severe aortic stenosis was diagnoses through an echocardiogram. Patient had lost heart catheter in 2018, patient continued to have biliary colic with significant gallbladder dietitian without any stone and was seen general surgery and was supposed to be clear for surgery for gallbladder in the next few weeks. Apparently patient seen her spinning mule tender Dr. Lenz was clear for surgery recently by him. Patient ended up in [employer] apartment today and [place] following fall occurred around 10:00 in the morning were patient was walking felt her knee and hips are giving out she fell on the left knee and hip and developed to have significant pain and discomfort. X-ray did not show any fracture of the time. Patient had severe debility not been able to ambulate and walk does not have any help at home and was not safe patient will be seen physical therapy and social media coordinator might require more home care held further or replacement in subacute rehab until she is recovered and able to take care of her own. 08/17: Patient has been afebrile, heart rate 91, blood pressure 118/70, pulse ox 9096% on room air. Consult in place with Dr. Momin. We have added and consults with PT, OT, social media coordinator. Rodriguez catheter needs to be removed today. IV fluids discontinued. If orthopedics clears the patient, we will plan for d ischarge today. REVIEW OF SYSTEMS CONSTITUTIONAL: morbidly obese no acute respiratory distress. No fevers. EYES: No icterus sclerae, no conjunctivitis. EARS, NOSE, MOUTH, THROAT, and FACE: No sore throat, lymphadenopathy, carotid bruits or deformity. RESPIRATORY: slight dyspnea and shortness of breath CARDIOVASCULAR: no chest painCP, Palpitation, PND, Orthopnea, or angina. GASTROINTESTINAL: No Abd pain, Nausea or vomiting, no Diarrhea or constipation, No GI Bleed, no distention or masses. GENITOURINARY: Negative for Hematuria or UTI, no kidney stones.mild incontinence INTEGUMENT/BREAST: Negative for any muscular injury with mild osteoarthritis..ssignificant arthralgia and lower back HEMATOLOGIC/LYMPHATIC: Negative for bleed or purpura. MUSCULOSKELTAL: Negative for Myalgia or arthralgia.generalized arthralgia and arthritis NEURLOGICAL: No LOC, Sz or syncope, blurred vision dizziness or abnormality.. BEHAVIORAL/PSYCH: Negative. ENDOCRINE: Negative. PHYSICAL EXAMINATION General Appearance: Alert, cooperative, no distress, appears stated age.morbidly obese, cooperative. Neck HEENT: Supple, no lymphadenopathy, no thyroid enlargement, no carotid bruits. Lungs: Clear to auscultation without crackles or wheezes no rhonchi, no deformity. Chest Wall: Chest wall normal expansion with deep inspiration no tenderness and no deformity was found on exam, no costochondral pain or discomfort. Heart: Regular rate and rhythm, S1, S2 normal, no murmur, rub or gallop. Back: Ssevere discomfort in lower lumbar area with no mass no rash. Abdomen: Soft, non-tender, bowel sounds active all four quadrants, no masses, no organomegaly. Extremities: 2+ edema there is scar tissue over the right knee from old surgery, left knee and slightly the hip has mild limita. Pulses: 2+ and symmetric. Skin: Skin color, texture, tugor normal, no rashes or lesions. Neurologic: Alert oriented x3 cranial nerves II through XII intact, no motor deficit, no abnormal balance or gait. ASSESSMENT AND PLAN 1 acute fall and injury: No fracture was found at the time that patient has not been able to ambulate orthopedic consult, PT, OT, social work. 2 debility not been able to ambulate and walk after fall with injury patient was start physical therapy titrated gradually. 3 moderate severe aortic stenosis: Patient is seen cardiology no intervention required this point. 4 biliary colic with positive result was seen and recommended laparoscopy, cholecystectomy which will be done by general surgery in the next 2 weeks. 5 Hypothyroidism: Has been on levothyroxine 137 g daily. 6 history of chronic pulmonary embolism which patient remain on anticoagulation with Xarelto. 7 history of bipolar disorders and depression: Remain on Cymbalta along with Lamictal. 8 Chronic ALLERGY: Remain on Singulair and loratadine. 9 atherosclerotic heart disease: Remain on Coreg along with atorvastatin. 10 chronic anemia: Mostly iron deficiency continue iron supplement refer for iron infusion if needed. 11 gout: Has been on allopurinol with no flareup. 12 asthma/reactive airway: Remain on albuterol inhaler every 4 hours as needed. CODE STATUS: Full code. DISCHARGE PLAN To be determined. Impression and plan of care have been directed as dictated by the signing physician. Seda Rosario nurse practitioner acting as scribe for signing physician. Objective - Vital Signs Vital signs: Vital Signs Temp 98.1 F 08/17/20 01:16 Pulse 91 08/17/20 01:16 Resp 16 08/17/20 01:16 BP 118/70 08/17/20 01:16 Pulse Ox 90 L 08/17/20 01:16 Intake & Output 08/16/20 08/17/20 08/17/20 18:59 06:59 18:59 Intake Total 720 Output Total 2825 Balance -210 Weight 182.798 kg Intake: Oral 720 Output: Urine 2825 Other: Voiding Method Indwelling Catheter - Labs CBC & Chem 7: 08/16/20 13:01 08/16/20 13:01 Labs: Abnormal Lab Results - Last 24 Hours (Table) 08/16/20 08/16/20 08/17/20 Range/Units 13:01 13:01 07:00 RBC 3.62 L (3.80-5.40) m/uL Hgb 10.9 L (11.4-16.0) gm/dL Hct 33.0 L (34.0-46.0) % Carbon Dioxide 32 H (22-30) mmol/L BUN 36 H (7-17) mg/dL Creatinine 1.25 H (0.52-1.04) mg/dL Glucose 72 L (74-99) mg/dL POC Glucose (mg/dL) 68 L (75-99) mg/dL
--- NOTE | 2020-08-17 10:42 | P.DS ---
Providers Date of admission: 08/16/20 17:25 Expected date of discharge: 08/17/20 Attending physician: Gregory Denise Consults: 08/16/20 17:20 Consult Physician Routine Consulting Provider: Derik Momin Consult Reason/Comments: hip and knee pain Do you want consulting provider notified?: Yes Primary care physician: [facility] Course: HISTORY OF PRESENT ILLNESS 60-year-old morbidly obese female one of [facility] patient who was seen in 07/30/2020 for recurrent chest pain and severe dyspnea and shortness of breath or patient at the time found to have gallbladder dyskinesia along with severe aortic stenosis was diagnoses through an echocardiogram. Patient had lost heart catheter in 2018, patient continued to have biliary colic with significant gallbladder dietitian without any stone and was seen general surgery and was supposed to be clear for surgery for gallbladder in the next few weeks. Apparently patient seen her circus rider Dr. Lenz was clear for surgery recently by him. Patient [facility] and [place] following fall occurred around 10:00 in the morning were patient was walking felt her knee and hips are giving out she fell on the left knee and hip and developed to have significant pain and discomfort. X-ray did not show any fracture of the time. Patient had severe debility not been able to ambulate and walk does not have any help at home and was not safe patient will be seen physical therapy and clinical social worker might require more home care held further or replacement in subacute rehab until she is recovered and able to take care of her own. 08/17: Patient has been afebrile, heart rate 91, blood pressure 118/70, pulse ox 9096% on room air. Consult in place with Dr. Momin. We have added and consults with PT, OT, clinical social worker. Rodriguez catheter needs to be removed today. IV fluids discontinued. If orthopedics clears the patient, we will plan for discharge today. ASSESSMENT AND PLAN 1 acute fall and injury: No fracture 2 debility not been able to ambulate and walk after fall with injury 3 moderate severe aortic stenosis 4 biliary colic w plan for laparoscopic cholecystectomy in the next 2 weeks. 5 Hypothyroidism 6 history of chronic pulmonary embolism 7 history of bipolar disorders and recurrent depression 8 Chronic ALLERGY 9 atherosclerotic heart disease 10 chronic anemia of chronic disease 11 gout, chronic 12 asthma, mild intermittent DISCHARGE PLAN To be determined. Impression and plan of care have been directed as dictated by the signing physician. Seda Rosario nurse practitioner acting as scribe for signing physician. Patient Condition at Discharge: Fair Plan - Discharge Summary New Discharge Prescriptions: Continue Carvedilol [Coreg] 25 mg PO BID Levothyroxine Sodium [Synthroid] 137 mcg PO DAILY Montelukast [Singulair] 10 mg PO DAILY DULoxetine HCL [Cymbalta] 60 mg PO BID rOPINIRole HCL [Requip] 4 mg PO BID Torsemide [Demadex] 50 mg PO DAILY Omeprazole 20 mg PO DAILY Loratadine [Claritin] 10 mg PO DAILY Multivitamins, Thera [Multivitamin (formulary)] 1 tab PO DAILY Magnesium Oxide [Mag-Ox] 400 mg PO DAILY allopurinoL [Zyloprim] 100 mg PO DAILY Acetaminophen [Tylenol 8 Hour] 650 mg PO TID Melatonin 10 mg PO HS Ferrous Gluconate 324 mg PO BID Potassium Chloride ER [K-Dur 10] 10 meq PO DAILY Diclofenac Sodium [Voltaren Gel] 4 gram TOPICAL QID PRN PRN Reason: Pain Cholecalciferol [Vitamin D3 (25 Mcg = 1000 Iu)] 5,000 unit PO DAILY QUEtiapine [SEROquel] 25 mg PO TID Sennosides/Docusate Sodium [Senna Plus 8.6-50 mg Tablet] 2 tab PO HS Loperamide [Imodium] 2 mg PO DAILY PRN PRN Reason: Diarrhea L.acidoph,Paracasei, B.lactis [Probiotic] 1 cap PO DAILY Paliperidone IM [Invega Sustenna] 156 mg IM Q28D Meloxicam [Mobic] 7.5 mg PO DAILY Albuterol Inhaler [Ventolin Hfa Inhaler] 2 puff INHALATION RT-Q4H PRN PRN Reason: Shortness Of Breath Lidocaine 4% Cream [Lmx 4] 1 applic TOPICAL DAILY PRN PRN Reason: KNEE PAIN Mirabegron [Myrbetriq] 25 mg PO DAILY Tolnaftate [Tinactin] 1 applic TOPICAL DAILY PRN PRN Reason: Rash Nystatin 100,000 Unit/gm Powd [Mycostatin Powder] 1 applic TOPICAL BID Rivaroxaban [Xarelto] 10 mg PO DAILY Lovastatin [Mevacor] 10 mg PO DAILY lamoTRIgine [LaMICtal] 200 mg PO DAILY Gabapentin [Neurontin] 400 mg PO TID #9 cap Discharge Medication List Carvedilol [Coreg] 25 mg PO BID 06/07/17 [History] Levothyroxine Sodium [Synthroid] 137 mcg PO DAILY 10/20/17 [History] Montelukast [Singulair] 10 mg PO DAILY 06/28/18 [History] DULoxetine HCL [Cymbalta] 60 mg PO BID 08/15/18 [History] rOPINIRole HCL [Requip] 4 mg PO BID 11/18/18 [History] Torsemide [Demadex] 50 mg PO DAILY 12/15/18 [History] Acetaminophen [Tylenol 8 Hour] 650 mg PO TID 08/14/19 [History] Loratadine [Claritin] 10 mg PO DAILY 08/14/19 [History] Magnesium Oxide [Mag-Ox] 400 mg PO DAILY 08/14/19 [History] Multivitamins, Thera [Multivitamin (formulary)] 1 tab PO DAILY 08/14/19 [History] Omeprazole 20 mg PO DAILY 08/14/19 [History] allopurinoL [Zyloprim] 100 mg PO DAILY 08/14/19 [History] Ferrous Gluconate 324 mg PO BID 01/19/20 [History] Melatonin 10 mg PO HS 01/19/20 [History] Diclofenac Sodium [Voltaren Gel] 4 gram TOPICAL QID PRN 04/03/20 [History] Potassium Chloride ER [K-Dur 10] 10 meq PO DAILY 04/03/20 [History] Cholecalciferol [Vitamin D3 (25 Mcg = 1000 Iu)] 5,000 unit PO DAILY 04/28/20 [History] QUEtiapine [SEROquel] 25 mg PO TID 05/12/20 [History] Sennosides/Docusate Sodium [Senna Plus 8.6-50 mg Tablet] 2 tab PO HS 05/12/20 [History] L.acidoph,Paracasei, B.lactis [Probiotic] 1 cap PO DAILY 06/02/20 [History] Loperamide [Imodium] 2 mg PO DAILY PRN 06/02/20 [History] Paliperidone IM [Invega Sustenna] 156 mg IM Q28D 06/13/20 [History] Meloxicam [Mobic] 7.5 mg PO DAILY 06/21/20 [History] Albuterol Inhaler [Ventolin Hfa Inhaler] 2 puff INHALATION RT-Q4H PRN 07/14/20 [History] Lidocaine 4% Cream [Lmx 4] 1 applic TOPICAL DAILY PRN 07/14/20 [History] Mirabegron [Myrbetriq] 25 mg PO DAILY 07/14/20 [History] Nystatin 100,000 Unit/gm Powd [Mycostatin Powder] 1 applic TOPICAL BID 07/14/20 [History] Tolnaftate [Tinactin] 1 applic TOPICAL DAILY PRN 07/14/20 [History] Rivaroxaban [Xarelto] 10 mg PO DAILY 07/30/20 [History] Lovastatin [Mevacor] 10 mg PO DAILY 08/16/20 [History] lamoTRIgine [LaMICtal] 200 mg PO DAILY 08/16/20 [History] Gabapentin [Neurontin] 400 mg PO TID #9 cap 08/17/20 [Rx] Follow up Appointment(s)/Referral(s): [facility] [Primary Care Provider] - 1 Week (After discharge from [facility]CF) Discharge Disposition: TRANSFER TO SNF/ECF
[2020-08-17 11:04] LABS: Glucose,Whole Blood 114 mg/dL (75-99)
--- NOTE | 2020-08-17 12:09 | P.CNOR ---
History of Present Illness - [facility] Consult date: 08/17/20 Consult reason: joint pain History of present illness: Patient is a 60-year-old female who presented to [facility] yesterday for evaluation after a fall that occurred at home. Patient was apparently going into the kitchen when she tripped and fell landed on her left side. She was brought to [facility] for further evaluation, multiple imaging and lab tests were done. Patient was admitted under internal medicine for further workup, our orthopedic teams consult with regards to the left knee and hip pain. Patient was evaluated today at bedside, she is resting comfortably. She has a well-known patient to our office. She does see Dr. Momin in the outpatient setting for her left knee. She has received cortisone injections in her left knee. We also did a procedure on her left hip back in 2016 for intertrochanteric femur fracture. Patient does live alone, she does not drive. She normally ambulates with a walker. Her knee has progressively gotten worse over the last few years. She has discussed with Dr. Momin the possibility of surgery if she does lose weight. Since the fall, she notices most discomfort in the left knee. The left hip pain has improved. She has no other orthopedic complaints this time. Imaging studies revealed no acute fractures or dislocations. Review of Systems Constitutional: Reports as per HPI Past Medical History Past Medical History: Asthma, Heart Failure, COPD, Diabetes Mellitus, GERD/Reflux, Hyperlipidemia, Hypertension, Musculoskeletal Disorder, Osteoarthritis (OA), Pneumonia, Pulmonary Embolus (PE), Thyroid Disorder Additional Past Medical History / Comment(s): chronic low back pain, herniated discs, RLS, leg edema, anemia, gout bilateral feet, hypothyroid, UTIs, hx cellulitis, cataracts, macular degeneration, DM (diet controlled) History of Any Multi-Drug Resistant Organisms: None Reported Past Surgical History: Bariatric Surgery, Heart Catheterization, Hernia Repair, Orthopedic Surgery Additional Past Surgical History / Comment(s): Total Right knee replacement, 3 abdominal hernia repairs, left hip repair d/t fracture, gastric bypass/revision, colonoscopy. Past Anesthesia/Blood Transfusion Reactions: No Reported Reaction Past Psychological History: Anxiety, Bipolar, Depression, Panic Disorder, PTSD Additional Psychological History / Comment(s): Borderline personality disorder. She states she sees a psychiatrist at [facility] and has a manager case there. Pt has a legal guardian , Taty Mosher. She cannot drive, she either takes the bus to appts. She uses a walker to ambulate. She has a glucometer but no longer has to monitor her blood sugars/is out of equipment. Pt states she recently attempted suicide with OD of tramadol. She states she no longer feels suicidal and has no suicidal thoughts/plans. Smoking Status: Never smoker Past Alcohol Use History: Occasional Additional Past Alcohol Use History / Comment(s): In -' was an everyday drinker Past Drug Use History: None Reported - Past Family History Mother Family Medical History: Cancer Additional Family Medical History / Comment(s): lung cancer Father Family Medical History: Diabetes Mellitus Additional Family Medical History / Comment(s): "my dad from a blood clot that traveled from his leg to his lung and also caused a heart attack." Brother(s) Family Medical History: Diabetes Mellitus Sister(s) Additional Family Medical History / Comment(s): "her heart races too fast" Medications and Allergies Home Medications Medication Instructions Recorded Confirmed Type Carvedilol [Coreg] 25 mg PO BID 06/07/17 08/16/20 History Levothyroxine Sodium [Synthroid] 137 mcg PO DAILY 10/20/17 08/16/20 History Montelukast [Singulair] 10 mg PO DAILY 06/28/18 08/16/20 History DULoxetine HCL [Cymbalta] 60 mg PO BID 08/15/18 08/16/20 History rOPINIRole HCL [Requip] 4 mg PO BID 11/18/18 08/16/20 History Torsemide [Demadex] 50 mg PO DAILY 12/15/18 08/16/20 History Acetaminophen [Tylenol 8 Hour] 650 mg PO TID 08/14/19 08/16/20 History Loratadine [Claritin] 10 mg PO DAILY 08/14/19 08/16/20 History Magnesium Oxide [Mag-Ox] 400 mg PO DAILY 08/14/19 08/16/20 History Multivitamins, Thera [Multivitamin 1 tab PO DAILY 08/14/19 08/16/20 History (formulary)] Omeprazole 20 mg PO DAILY 08/14/19 08/16/20 History allopurinoL [Zyloprim] 100 mg PO DAILY 08/14/19 08/16/20 History Ferrous Gluconate 324 mg PO BID 01/19/20 08/16/20 History Melatonin 10 mg PO HS 01/19/20 08/16/20 History Diclofenac Sodium [Voltaren Gel] 4 gram TOPICAL QID PRN 04/03/20 08/16/20 History Potassium Chloride ER [K-Dur 10] 10 meq PO DAILY 04/03/20 08/16/20 History Cholecalciferol [Vitamin D3 (25 5,000 unit PO DAILY 04/28/20 08/16/20 History Mcg = 1000 Iu)] QUEtiapine [SEROquel] 25 mg PO TID 05/12/20 08/16/20 History Sennosides/Docusate Sodium [Senna 2 tab PO HS 05/12/20 08/16/20 History Plus 8.6-50 mg Tablet] L.acidoph,Paracasei, B.lactis 1 cap PO DAILY 06/02/20 08/16/20 History [Probiotic] Loperamide [Imodium] 2 mg PO DAILY PRN 06/02/20 08/16/20 History Paliperidone IM [Invega Sustenna] 156 mg IM Q28D 06/13/20 08/16/20 History Meloxicam [Mobic] 7.5 mg PO DAILY 06/21/20 08/16/20 History Albuterol Inhaler [Ventolin Hfa 2 puff INHALATION RT-Q4H PRN 07/14/20 08/16/20 History Inhaler] Lidocaine 4% Cream [Lmx 4] 1 applic TOPICAL DAILY PRN 07/14/20 08/16/20 History Mirabegron [Myrbetriq] 25 mg PO DAILY 07/14/20 08/16/20 History Nystatin 100,000 Unit/gm Powd 1 applic TOPICAL BID 07/14/20 08/16/20 History [Mycostatin Powder] Tolnaftate [Tinactin] 1 applic TOPICAL DAILY PRN 07/14/20 08/16/20 History Rivaroxaban [Xarelto] 10 mg PO DAILY 07/30/20 08/16/20 History Lovastatin [Mevacor] 10 mg PO DAILY 08/16/20 08/16/20 History lamoTRIgine [LaMICtal] 200 mg PO DAILY 08/16/20 08/16/20 History Gabapentin [Neurontin] 400 mg PO TID #9 cap 08/17/20 Rx Allergies Allergy/AdvReac Type Severity Reaction Status Date / Time buspirone [From BuSpar] Allergy Rash/Hives Verified 08/16/20 17:51 haloperidol [From Haldol] Allergy Swelling Verified 08/16/20 17:51 hydroxyzine [From Vistaril] Allergy Rash/Hives Verified 08/16/20 17:51 iodine Allergy Swelling Verified 08/16/20 17:51 Penicillins Allergy Swelling Verified 08/16/20 17:51 prochlorperazine Allergy Rash/Hives Verified 08/16/20 17:51 Sulfa (Sulfonamide Allergy Rash/Hives Verified 08/16/20 17:51 Antibiotics) Tetanus Vaccines and Toxoid Allergy Rash/Hives Verified 08/16/20 17:51 [Tetanus Vaccines & Toxoid] trifluoperazine HCl Allergy Unknown Verified 08/16/20 17:51 [From Stelazine] Physical Examination Left lower extremity: Well-healed incision noted on the proximal left femur, no skin changes are noted in that area. She does have some minimal tenderness with palpation of the proximal femur. Internal and external rotation of the femur reproduce minimal groin pain. There is no skin changes noted around the knee, I'm unable to appreciate any effusion. Patient has a very large amount of soft tissue throughout the left lower extremity due to her obesity, so a full exam is very difficult. She does have tenderness with palpation along the medial and lateral joint line. Patient is able straight leg raise with him and we'll difficulty, she can extend and flex the knee, this does reproduce pain. No deficits appreciated in the patellar quadriceps tendon. Calf is soft, no tenderness with palpation. Plantar flexion, dorsiflexion, EHL, FHL are intact. Dorsalis pedis pulse is 2+. Her sensory exam light touch is intact throughout the extremity Results - Labs Labs: Abnormal Lab Results - Last 24 Hours (Table) 08/16/20 08/16/20 08/17/20 Range/Units 13:01 13:01 07:00 RBC 3.62 L (3.80-5.40) m/uL Hgb 10.9 L (11.4-16.0) gm/dL Hct 33.0 L (34.0-46.0) % Carbon Dioxide 32 H (22-30) mmol/L BUN 36 H (7-17) mg/dL Creatinine 1.25 H (0.52-1.04) mg/dL Glucose 72 L (74-99) mg/dL POC Glucose (mg/dL) 68 L (75-99) mg/dL 08/17/20 Range/Units 11:03 RBC (3.80-5.40) m/uL Hgb (11.4-16.0) gm/dL Hct (34.0-46.0) % Carbon Dioxide (22-30) mmol/L BUN (7-17) mg/dL Creatinine (0.52-1.04) mg/dL Glucose (74-99) mg/dL POC Glucose (mg/dL) 114 H (75-99) mg/dL H & H 08/16/20 Range/Units 13:01 Hgb 10.9 L (11.4-16.0) gm/dL Hct 33.0 L (34.0-46.0) % Coagulation 08/16/20 Range/Units 13:01 INR 0.9 (<1.2) Result Diagrams: 08/16/20 13:01 08/16/20 13:01 - Diagnostic results Hip x-ray: report reviewed, image reviewed Hip CT: report reviewed, image reviewed Knee x-ray: report reviewed, image reviewed Knee CT: report reviewed, image reviewed Assessment and Plan Assessment: Left knee pain Left knee severe osteoarthritis with exacerbation Left hip pain Left hip contusion Previous left femur ORIF, stable Multiple medical comorbidities Plan: Imaging: Reports and images were reviewed of the hip and knee. There are no acute fractures or dislocations appreciated. Stable hardware of the left hip is noted. Severe osteoarthritic changes are noted throughout the left knee. Plan: I was able to discuss the case completed with physical exam findings and imaging studies may attending Dr. Momin. No general orthopedic surgical intervention recommended at this time Recommend conservative management this time, this including icing and elevating along with anti-inflammatory and pain medication Recommend weight-bear as tolerated with walker Discussed the patient that she may need full-time assisted living if she continues to have difficulty with ADLs along with frequent falls We considered the patient in the outpatient setting for possible cortisone injection in her left knee over the next few weeks We'll be available for any further questions Time with Patient: Less than 30
--- NOTE | 2020-08-17 15:37 | CDI ---
primary osteoarthrosis Documentation Clarification Form Date: 08/17/2020 03:19:00 PM From: Sobeida Mohan RN, CCDS Admit Date: 08/17/2020 09:35:00 AM Patient Name: Magda Lerner Visit Number: [id number] Discharge Date: ATTENTION: The Clinical Documentation Specialists (CDI) and [facility] Coding Staff appreciate your assistance in clarifying documentation. Please respond to the clarification below the line at the bottom and electronically sign. The CDI & [facility] Coding staff will review the response and follow-up if needed. Please note: Queries are made part of the Legal Health Record. If you have any questions, please contact the author of this message via ITS. Dr. Derik Momin The patient presented after fall at home with complaints of left knee and hip pain. Severe osteoarthritis with exacerbation s documented in the consult and further specificity is requested. History/Risk Factors: COPD, Asthma, Diabetes Mellitus, Hypertension Osteoarthritis, Gout Clinical Indicators: 60-year-old female with complaints of left knee and hip pain after fall. She normally ambulates with a walker Radiology findings: Negative for ac fractures or dislocation, severe arthropathy, Diffuse osteopenia 07/18 at 08:00 Vital Signs: 07/08/79 97 16 97.6 94 % RA Treatment: Mobic 7.5 mg po daily Voltaren Gel 4 gm topical qid prn Ice and elevation Weight-bear as tolerated with walker In your professional opinion, can you please clarify left knee severe osteoarthritis exacerbation? Primary osteoarthritis Other, please specify Unable to determine (Last Revision: December 2017) MTDD
--- NOTE | 2020-08-17 15:57 | CDI ---
Documentation Clarification Form Date: 08/17/2020 03:40:35 PM From: Sobeida Mhoan RN, CCDS Admit Date: 08/17/2020 09:35:00 AM Patient Name: Magda Lerner Visit Number: [id number] Discharge Date: ATTENTION: The Clinical Documentation Specialists (CDI) and [facility] Coding Staff appreciate your assistance in clarifying documentation. Please respond to the clarification below the line at the bottom and electronically sign. The CDI & [facility] Coding staff will review the response and follow-up if needed. Please note: Queries are made part of the Legal Health Record. If you have any questions, please contact the author of this message via ITS. Dr. Gregory Denise Heart failure is documented in the past medical history, further clarification is requested History/Risk Factors: Heart Failure, COPD, Asthma, Diabetes Mellitus, Hypertension Osteoarthritis, Gout Clinical Indicators: 60-year-old female who present after a fall with left knee pain. No fracture noted. She has a history of heart failure, moderate severe aortic stenosis. 07/18 at 08:00 Vital Signs: 07/08/79 97 16 97.6 94 % RA Echocardiogram Results: (06/03/20) Overall left ventricular systolic function is low-normal with, an EF between 50-55 % the right ventricle is mild to moderately enlarged. 08/16 Chest X Ray: Cardiomegaly. No interval change from prior exam. Mold interstitial prominence could represent chronic interstitial lung disease, venous congestion or interstitial pneumonitis but is stable Treatment: Lipitor 10 mg po daily Coreg 25 mg po ac bid Demadex 50 mg po daily In your professional opinion, can you please clarify the acuity and type of CHF if known? Chronic Diastolic Heart Failure: Unable to Determine Other, please specify (Last Revision: December 2017) MTDD
[2020-08-17 17:12] LABS: Glucose,Whole Blood 104 mg/dL (75-99)
[2020-08-17 20:11] LABS: Glucose,Whole Blood 290 mg/dL (75-99)
[2020-08-17] MEDS: SENNOSIDES-DOCUSATE SODIUM 1 EACH TAB PO SCH (20:45)
[2020-08-17] MEDS: MELATONIN 5 MG TABLET PO SCH (20:46)
[2020-08-17 23:21] LABS: Appearance,Urine Turbid (Clear); Bacteria,Urine Many /hpf; Bilirubin,Urine Negative (Negative); Blood,Urine Small (Negative); Color,Urine Light Yellow; Glucose,Urine (UA) Negative (Negative); Hyaline Casts,Urine 12 /lpf (0-2); Ketones,Urine Negative (Negative); Leukocyte Esterase,Urine Large (Negative); Mucus,Urine Rare /hpf; Nitrite,Urine Negative (Negative); Protein,Urine Negative (Negative); RBC,Urine 13 /hpf (0-5); Specific Gravity,Urine 1.009 (1.001-1.035); Squamous Epithelial Cell,Urine 4 /hpf (0-4); Urobilinogen,Urine <2.0 mg/dL (<2.0); WBC,Urine >182 /hpf (0-5)
[2020-08-18] MEDS: LEVOTHYROXINE 137 MCG TAB PO SCH (05:59)
[2020-08-18] MEDS: carvediloL 12.5 MG TAB PO SCH ×2 (07:18→16:58)
[2020-08-18] MEDS: PANTOPRAZOLE 40 MG TABLET PO SCH (07:18)
[2020-08-18 07:26] LABS: Glucose,Whole Blood 108 mg/dL (75-99)
[2020-08-18] MEDS: ACETAMINOPHEN TAB 325 MG TAB PO SCH ×3 (08:08→21:23)
[2020-08-18] MEDS: MULTIVITAMINS, THERA 1 EACH TAB PO SCH (08:08)
[2020-08-18] MEDS: GABAPENTIN 400 MG CAP PO SCH ×3 (08:08→21:24)
[2020-08-18] MEDS: MONTELUKAST 10 MG TAB PO SCH (08:08)
[2020-08-18] MEDS: ATORVASTATIN 10 MG TAB PO SCH (08:08)
[2020-08-18] MEDS: DULoxetine HCL 60 MG CAPSULE.DR PO SCH ×2 (08:09→21:24)
[2020-08-18] MEDS: allopurinoL 100 MG TAB PO SCH (08:09)
[2020-08-18] MEDS: FERROUS SULFATE 325 MG TAB PO SCH ×2 (08:09→21:24)
[2020-08-18] MEDS: MAGNESIUM OXIDE 400 MG TAB PO SCH (08:09)
[2020-08-18] MEDS: LORATADINE 10 MG TAB PO SCH (08:09)
[2020-08-18] MEDS: POTASSIUM CHLORIDE ER 10 MEQ TAB.ER.PRT PO SCH (08:09)
[2020-08-18] MEDS: CHOLECALCIFEROL 1,000 UNIT TAB PO SCH (08:09)
[2020-08-18] MEDS: lamoTRIgine 100 MG TAB PO SCH (08:10)
[2020-08-18] MEDS: rOPINIRole HCL 4 MG TABLET PO SCH ×2 (08:12→21:24)
[2020-08-18] MEDS: TORSEMIDE 20 MG TAB PO SCH (08:13)
[2020-08-18] MEDS: RIVAROXABAN 10 MG TAB PO SCH (08:14)
[2020-08-18] MEDS: MELOXICAM 7.5 MG TAB PO SCH (08:14)
[2020-08-18] MEDS: LACTOBACILLUS ACIDOPH & BULGAR 1 EACH PACKET PO SCH (08:15)
[2020-08-18] MEDS: QUEtiapine 25 MG TAB PO SCH ×3 (08:15→21:23)
[2020-08-18 09:54] LABS: Ferritin 97.3 ng/mL (10.0-291.0)
[2020-08-18] MEDS: NON FORMULARY DRUG (Mirabegron [Myrbetriq] 25 MG Tab.Er.24h) PO SCH (10:33)
[2020-08-18] MEDS: NYSTATIN 100,000 UNIT/GM POWD 15 GM TOPICAL SCH ×2 (10:34→21:24)
[2020-08-18 11:38] LABS: Glucose,Whole Blood 103 mg/dL (75-99)
--- NOTE | 2020-08-18 16:21 | P.PN ---
Subjective Progress Note Date: 08/18/20 HISTORY OF PRESENT ILLNESS 60-year-old morbidly obese female [facility] who was seen in 07/30/2020 for recurrent chest pain and severe dyspnea and shortness of breath or patient at the time found to have gallbladder dyskinesia along with severe aortic stenosis was diagnoses through an echocardiogram. Patient had lost heart catheter in 2018, patient continued to have biliary colic with significant gallbladder dietitian without any stone and was seen general surgery and was supposed to be clear for surgery for gallbladder in the next few weeks. Apparently patient seen her assessment nurse Dr. Lenz was clear for surgery recently by him. [facility] and [place] following fall occurred around 10:00 in the morning were patient was walking felt her knee and hips are giving out she fell on the left knee and hip and developed to have significant pain and discomfort. X-ray did not show any fracture of the time. Patient had severe debility not been able to ambulate and walk does not have any help at home and was not safe patient will be seen physical therapy and social media specialist might require more home care held further or replacement in subacute rehab until she is recovered and able to take care of her own. 08/17: Patient has been afebrile, heart rate 91, blood pressure 118/70, pulse ox 9096% on room air. Consult in place with Dr. Momin. We have added and consults with PT, OT, social media specialist. Rodriguez catheter needs to be removed today. IV fluids discontinued. If orthopedics clears the patient, we will plan for d ischarge today. 08/18: Patient denies any complaints. She denies fever chills but has documented temperature 101. She is on ceftriaxone. She has a Rodriguez catheter in place and had 200 ML's out during nights and 1500 this morning. We'll plan to maintain Rodriguez for 1 more day and discontinue tomorrow. Incentive spirometry added. Heart rate 94, blood pressure 105/61, pulse ox 93% on room air. U rinalysis done last evening with fever revealed turbid, leukoesterase large, WBCs greater than 182, WBC clumps many. D-dimer 0.71. Influenza A, influenza B, Covid 19 negative. Social work is working with guardian for placement which will most likely be out of the [place] area. Guardian is making arrangements eventually go to a modified custodial. REVIEW OF SYSTEMS CONSTITUTIONAL: morbidly obese no acute respiratory distress. Documented fevers. EYES: No icterus sclerae, no conjunctivitis. EARS, NOSE, MOUTH, THROAT, and FACE: No sore throat, lymphadenopathy, carotid bruits or deformity. RESPIRATORY: slight dyspnea and shortness of breath CARDIOVASCULAR: no chest painCP, Palpitation, PND, Orthopnea, or angina. GASTROINTESTINAL: No Abd pain, Nausea or vomiting, no Diarrhea or constipation, No GI Bleed, no distention or masses. GENITOURINARY: Negative for Hematuria or UTI, no kidney stones.mild incontinence INTEGUMENT/BREAST: Negative for any muscular injury with mild osteoarthritis..ssignificant arthralgia and lower back HEMATOLOGIC/LYMPHATIC: Negative for bleed or purpura. MUSCULOSKELTAL: Negative for Myalgia or arthralgia.generalized arthralgia and arthritis NEURLOGICAL: No LOC, Sz or syncope, blurred vision dizziness or abnormality.. BEHAVIORAL/PSYCH: Negative. ENDOCRINE: Negative. PHYSICAL EXAMINATION General Appearance: Alert, cooperative, no distress, appears stated age.morbidly obese, cooperative. Neck HEENT: Supple, no lymphadenopathy, no thyroid enlargement, no carotid bruits. Lungs: Clear to auscultation without crackles or wheezes no rhonchi, no deformity. Chest Wall: Chest wall normal expansion with deep inspiration no tenderness and no deformity was found on exam, no costochondral pain or discomfort. Heart: Regular rate and rhythm, S1, S2 normal, no murmur, rub or gallop. Back: Ssevere discomfort in lower lumbar area with no mass no rash. Abdomen: Soft, non-tender, bowel sounds active all four quadrants, no masses, no organomegaly. Extremities: 2+ edema there is scar tissue over the right knee from old surgery, left knee and slightly the hip has mild limita. Pulses: 2+ and symmetric. Skin: Skin color, texture, tugor normal, no rashes or lesions. Neurologic: Alert oriented x3 cranial nerves II through XII intact, no motor deficit, no abnormal balance or gait. ASSESSMENT AND PLAN 1 acute fall and injury: No fracture was found at the time that patient has not been able to ambulate orthopedic consult, PT, OT, social work. 2 debility not been able to ambulate and walk after fall with injury patient was start physical therapy titrated gradually. 3 moderate severe aortic stenosis: Patient is seen cardiology no intervention required this point. 4 biliary colic with positive result was seen and recommended laparoscopy, cholecystectomy which will be done by general surgery in the next 2 weeks. 5 Hypothyroidism: Has been on levothyroxine 137 g daily. 6 history of chronic pulmonary embolism which patient remain on anticoagulation with Xarelto. 7 history of bipolar disorders and depression: Remain on Cymbalta along with Lamictal. 8 Chronic ALLERGY: Remain on Singulair and loratadine. 9 atherosclerotic heart disease: Remain on Coreg along with atorvastatin. 10 chronic anemia: Mostly iron deficiency continue iron supplement refer for iron infusion if needed. 11 chronic gout: Has been on allopurinol with no flareup. 12 mild intermittent asthma: Remain on albuterol inhaler every 4 hours as needed. 13 acute urinary tract infection. Patient started on ceftriaxone. Urine culture in process. Rodriguez catheter to be discontinued in the morning. CODE STATUS: Full code. DISCHARGE PLAN To be determined. Impression and plan of care have been directed as dictated by the signing physician. Seda Rosario nurse practitioner acting as scribe for signing physician. Objective - Vital Signs Vital signs: Vital Signs Temp 98.8 F 08/18/20 07:39 Pulse 98 08/18/20 07:39 Resp 18 08/18/20 07:39 BP 130/70 08/18/20 07:39 Pulse Ox 96 08/18/20 07:39 Intake & Output 08/17/20 08/18/20 08/18/20 18:59 06:59 18:59 Intake Total 240 Output Total 1600 1600 Balance -1600 -1360 Intake: Oral 240 Output: Urine 1600 1600 Other: Voiding Method Indwelling Catheter # Voids 1 1 - Labs CBC & Chem 7: 08/16/20 13:01 08/16/20 13:01 Labs: Abnormal Lab Results - Last 24 Hours (Table) 08/17/20 08/17/20 08/17/20 Range/Units 11:03 17:10 20:09 D-Dimer (<0.60) mg/L FEU POC Glucose (mg/dL) 114 H 104 H 290 H (75-99) mg/dL Urine Appearance (Clear) Urine Blood (Negative) Ur Leukocyte Esterase (Negative) Urine RBC (0-5) /hpf Urine WBC (0-5) /hpf Urine WBC Clumps (None) /hpf Urine Bacteria (None) /hpf Hyaline Casts (0-2) /lpf Urine Mucus (None) /hpf 08/17/20 08/17/20 08/18/20 Range/Units 22:50 22:55 07:21 D-Dimer 0.71 H (<0.60) mg/L FEU POC Glucose (mg/dL) 108 H (75-99) mg/dL Urine Appearance Turbid H (Clear) Urine Blood Small H (Negative) Ur Leukocyte Esterase Large H (Negative) Urine RBC 13 H (0-5) /hpf Urine WBC >182 H (0-5) /hpf Urine WBC Clumps Many H (None) /hpf Urine Bacteria Many H (None) /hpf Hyaline Casts 12 H (0-2) /lpf Urine Mucus Rare H (None) /hpf
[2020-08-18 16:54] LABS: Glucose,Whole Blood 98 mg/dL (75-99)
[2020-08-18 21:13] LABS: Glucose,Whole Blood 105 mg/dL (75-99)
[2020-08-18] MEDS: SENNOSIDES-DOCUSATE SODIUM 1 EACH TAB PO SCH (21:24)
[2020-08-18] MEDS: MELATONIN 5 MG TABLET PO SCH (21:24)
[2020-08-18] MEDS: MORPHINE SULFATE 4 MG/ML SYRINGE IV PRN (22:00)
[2020-08-19] MEDS: LEVOTHYROXINE 137 MCG TAB PO SCH (06:02)
[2020-08-19 07:04] LABS: Glucose,Whole Blood 106 mg/dL (75-99)
[2020-08-19 07:49] VITALS: BP 102/58; PULSE 103; RESP 12; TEMP 99.1
[2020-08-19] MEDS: DULoxetine HCL 60 MG CAPSULE.DR PO SCH (10:23)
[2020-08-19] MEDS: lamoTRIgine 100 MG TAB PO SCH (10:23)
[2020-08-19] MEDS: carvediloL 12.5 MG TAB PO SCH (10:23)
[2020-08-19] MEDS: POTASSIUM CHLORIDE ER 10 MEQ TAB.ER.PRT PO SCH (10:23)
[2020-08-19] MEDS: CHOLECALCIFEROL 1,000 UNIT TAB PO SCH (10:23)
[2020-08-19] MEDS: GABAPENTIN 400 MG CAP PO SCH (10:24)
[2020-08-19] MEDS: FERROUS SULFATE 325 MG TAB PO SCH (10:24)
[2020-08-19] MEDS: allopurinoL 100 MG TAB PO SCH (10:24)
[2020-08-19] MEDS: MAGNESIUM OXIDE 400 MG TAB PO SCH (10:24)
[2020-08-19] MEDS: ATORVASTATIN 10 MG TAB PO SCH (10:24)
[2020-08-19] MEDS: LORATADINE 10 MG TAB PO SCH (10:24)
[2020-08-19] MEDS: PANTOPRAZOLE 40 MG TABLET PO SCH (10:24)
[2020-08-19] MEDS: MONTELUKAST 10 MG TAB PO SCH (10:24)
[2020-08-19] MEDS: MULTIVITAMINS, THERA 1 EACH TAB PO SCH (10:24)
[2020-08-19] MEDS: LACTOBACILLUS ACIDOPH & BULGAR 1 EACH PACKET PO SCH (10:27)
[2020-08-19] MEDS: RIVAROXABAN 10 MG TAB PO SCH (10:30)
[2020-08-19] MEDS: rOPINIRole HCL 4 MG TABLET PO SCH (10:30)
[2020-08-19] MEDS: MELOXICAM 7.5 MG TAB PO SCH (10:30)
[2020-08-19] MEDS: TORSEMIDE 20 MG TAB PO SCH (10:30)
[2020-08-19] MEDS: QUEtiapine 25 MG TAB PO SCH (10:31)
[2020-08-19] MEDS: NYSTATIN 100,000 UNIT/GM POWD 15 GM TOPICAL SCH (10:34)
[2020-08-19] MEDS: ACETAMINOPHEN TAB 325 MG TAB PO SCH (11:23)
[2020-08-19] MEDS: NON FORMULARY DRUG (Mirabegron [Myrbetriq] 25 MG Tab.Er.24h) PO SCH (11:23)
[2020-08-19 11:45] LABS: Glucose,Whole Blood 95 mg/dL (75-99)
--- NOTE | 2020-08-19 13:21 | P.PN ---
Subjective 60-year-old morbidly obese female one of The [facility] patient who was seen in 07/30/2020 for recurrent chest pain and severe dyspnea and shortness of breath or patient at the time found to have gallbladder dyskinesia along with severe aortic stenosis was diagnoses through an echocardiogram. Patient had lost heart catheter in 2018, patient continued to have biliary colic with significant gallbladder dietitian without any stone and was seen general surgery and was supposed to be clear for surgery for gallbladder in the next few weeks. Apparently patient seen her pharmacists Dr. Lenz was clear for surgery recently by him. [facility] and [place] following fall occurred around 10:00 in the morning were patient was walking felt her knee and hips are giving out she fell on the left knee and hip and developed to have significant pain and discomfort. X-ray did not show any fracture of the time. Patient had severe debility not been able to ambulate and walk does not have any help at home and was not safe patient will be seen physical therapy and executive secretary social welfare might require more home care held further or replacement in subacute rehab until she is recovered and able to take care of her own. 08/17: Patient has been afebrile, heart rate 91, blood pressure 118/70, pulse ox 9096% on room air. Consult in place with Dr. Momin. We have added and consults with PT, OT, executive secretary social welfare. Rodriguez catheter needs to be removed today. IV fluids discontinued. If orthopedics clears the patient, we will plan for discharge today. 08/18: Patient denies any complaints. She denies fever chills but has documen narciso temperature 101. She is on ceftriaxone. She has a Rodriguez catheter in place and had 200 ML's out during nights and 1500 this morning. We'll plan to maintain Rodriguez for 1 more day and discontinue tomorrow. Incentive spirometry added. Heart rate 94, blood pressure 105/61, pulse ox 93% on room air. Urinalysis done last evening with fever revealed turbid, leukoesterase large, WBCs greater than 182, WBC clumps many. D-dimer 0.71. Influenza A, influenza B, Covid 19 negative. Social work is working with guardian for placement which will most likely be out of the [place] area. Guardian is making arrangements eventually go to a modified long-term. 08/19: Patient was up in the bedside chair this morning. Vital signs are stable she's afebrile 98.1, heart rate 101, respiratory rate is 16, blood pressure 138 and 80, 97% on 2 L via nasal cannula. PT/OT evaluated patient and recommends LIZZY at discharge. Social work is working on finding placement, but guardian does not want her to be discharged to the [place] area, so options are limited. Social work continues to try to find placement. Objective - Vital Signs Vital signs: Vital Signs Temp 99.1 F 08/19/20 07:48 Pulse 103 H 08/19/20 07:48 Resp 12 08/19/20 07:49 BP 102/58 08/19/20 07:48 Pulse Ox 98 08/19/20 07:49 Intake & Output 08/18/20 08/19/20 08/19/20 18:59 06:59 18:59 Intake Total 240 50 Output Total 3300 1900 1000 Balance -3060 -1850 -1000 Intake: Intake, IV Titration 50 Amount cefTRIAXone 1 gm In 50 Sodium Chloride 0.9% 50 ml @ 100 mls/hr IVPB Q24H [facility] Rx#:[id number] Oral 240 Output: Urine 3300 1900 1000 Uretheral (Rodriguez) 1000 1000 Other: Voiding Method Indwelling Catheter Indwelling Catheter - Exam General Appearance: Alert, cooperative, no distress, appears stated age.morbidly obese, cooperative Neck HEENT: Supple, no lymphadenopathy, no thyroid enlargement, no carotid bruits. Lungs: Clear to auscultation without crackles or wheezes no rhonchi, no deformity. Chest Wall: Chest wall normal expansion with deep inspiration no tenderness and no deformity was found on exam, no costochondral pain or discomfort Heart: Regular rate and rhythm, S1, S2 normal, no murmur, rub or gallop. Back: Ssevere discomfort in lower lumbar area with no mass no rash. Abdomen: Soft, non-tender, bowel sounds active all four quadrants, no masses, no organomegaly. Extremities: 2+ edema there is scar tissue over the right knee from old surgery Pulses: 2+ and symmetric. Skin: Skin color, texture, tugor normal, no rashes or lesions. Neurologic: Alert oriented x3 cranial nerves II through XII intact, no motor deficit, no abnormal balance or gait. - Labs CBC & Chem 7: 08/16/20 13:01 08/16/20 13:01 Labs: Abnormal Lab Results - Last 24 Hours (Table) 08/18/20 08/19/20 Range/Units 21:11 07:02 POC Glucose (mg/dL) 105 H 106 H (75-99) mg/dL Microbiology - Last 24 Hours (Table) 08/17/20 22:55 Urine Culture - Preliminary Urine,Voided Gram Neg Bacilli 08/17/20 22:50 Blood Culture - Preliminary Blood No Growth after 24 hours Assessment and Plan Plan: 1 acute fall and injury: No fracture was found at the time that patient has not been able to ambulate orthopedic consult, PT, OT, social work. 2 debility not been able to ambulate and walk after fall with injury patient was start physical therapy titrated gradually. 3 moderate severe aortic stenosis: Patient is seen cardiology no intervention required this point. 4 biliary colic with positive result was seen and recommended laparoscopy, cholecystectomy which will be done by general surgery in the next 2 weeks. 5 Hypothyroidism: Has been on levothyroxine 137 g daily. 6 history of chronic pulmonary embolism which patient remain on anticoagulation with Xarelto. 7 history of bipolar disorders and depression: Remain on Cymbalta along with Lamictal. 8 Chronic ALLERGY: Remain on Singulair and loratadine. 9 atherosclerotic heart disease: Remain on Coreg along with atorvastatin. 10 chronic anemia: Mostly iron deficiency continue iron supplement refer for iron infusion if needed. 11 chronic gout: Has been on allopurinol with no flareup. 12 mild intermittent asthma: Remain on albuterol inhaler every 4 hours as needed. 13 acute urinary tract infection. Patient started on ceftriaxone. Urine culture in process. Rodriguez catheter to be discontinued today CODE STATUS: Full code. . The above impression and plan of care have been discussed and directed by signing physician. Michelle Gomez nurse practitioner acting as scribe for signing physician.
--- NOTE | 2020-08-19 14:15 | P.DS ---
Providers Date of admission: 08/17/20 09:35 Expected date of discharge: 08/19/20 Attending physician: Gregory Denise Consults: 08/16/20 17:20 Consult Physician Routine Consulting Provider: Derik Momin Consult Reason/Comments: hip and knee pain Do you want consulting provider notified?: Yes Primary care physician: [facility] Course: 60-year-old morbidly obese female one of The [facility] patient who was seen in 07/30/2020 for recurrent chest pain and severe dyspnea and shortness of breath or patient at the time found to have gallbladder dyskinesia along with severe aortic stenosis was diagnoses through an echocardiogram. Patient had lost heart catheter in 2018, patient continued to have biliary colic with significant gallbladder dietitian without any stone and was seen general surgery and was supposed to be clear for surgery for gallbladder in the next few weeks. Apparently patient seen her school vocational educator Dr. Lenz was clear for surgery recently by him. Patient ended up in [facility] today and [place] following fall occurred around 10:00 in the morning were patient was walking felt her knee and hips are giving out she fell on the left knee and hip and developed to have significant pain and discomfort. X-ray did not show any fracture of the time. Patient had severe debility not been able to ambulate and walk does not have any help at home and was not safe patient will be seen physical therapy and clinical social work aide might require more home care held further or replacement in subacute rehab until she is recovered and able to take care of her own. 08/17: Patient has been afebrile, heart rate 91, blood pressure 118/70, pulse ox 9096% on room air. Consult in place with Dr. Momin. We have added and consults with PT, OT, clinical social work aide. Rodriguez catheter needs to be removed today. IV fluids discontinued. If orthopedics clears the patient, we will plan for discharge today. 08/18: Patient denies any complaints. She denies fever chills but has documented temperature 101. She is on ceftriaxone. She has a Rodriguez catheter in place and had 200 ML's out during nights and 1500 this morning. We'll plan to maintain Rodriguez for 1 more day and discontinue tomorrow. Incentive spirometry added. Heart rate 94, blood pressure 105/61, pulse ox 93% on room air. Urinalysis done last evening with fever revealed turbid, leukoesterase large, WBCs greater than 182, WBC clumps many. D-dimer 0.71. Influenza A, influenza B, Covid 19 negative. Social work is working with guardian for placement which will most likely be out of the [place] area. Guardian is making arrangements eventually go to a modified alf. 08/19: Patient was up in the bedside chair this morning. Vital signs are stable she's afebrile 98.1, heart rate 101, respiratory rate is 16, blood pressure 138 and 80, 97% on 2 L via nasal cannula. PT/OT evaluated patient and recommends LIZZY at discharge. Social work is working on finding placement, but guardian does not want her to be discharged to the [facility], so options are limited. Social work continues to try to find placement. placement found and will be discharged today. Discharge diagnoses 1 acute fall and injury: No fracture were found 2 debility not been able to ambulate and walk after fall with injury patient was start physical therapy titrated gradually 3 moderate severe aortic stenosis 4 biliary colic with positive result was seen and recommended laparoscopy, cholecystectomy which will be done outpatient 5 Hypothyroidism 6 history of chronic pulmonary embolism which patient remain on anticoagulation with Xarelto. 7 history of bipolar disorders and depression 8 Chronic ALLERGY 9 atherosclerotic heart disease 10 chronic anemia 11 chronic gout 12 mild intermittent asthma 13 acute urinary tract infection. The above impression and plan of care have been discussed and directed by signing physician. Mcihelle Gomez nurse practitioner acting as scribe for signing physician. . Patient Condition at Discharge: Fair Plan - Discharge Summary New Discharge Prescriptions: New Cefuroxime [Ceftin] 250 mg PO BID 3 Days #6 tab Continue Carvedilol [Coreg] 25 mg PO BID Levothyroxine Sodium [Synthroid] 137 mcg PO DAILY Montelukast [Singulair] 10 mg PO DAILY DULoxetine HCL [Cymbalta] 60 mg PO BID rOPINIRole HCL [Requip] 4 mg PO BID Torsemide [Demadex] 50 mg PO DAILY Omeprazole 20 mg PO DAILY Loratadine [Claritin] 10 mg PO DAILY Multivitamins, Thera [Multivitamin (formulary)] 1 tab PO DAILY Magnesium Oxide [Mag-Ox] 400 mg PO DAILY allopurinoL [Zyloprim] 100 mg PO DAILY Acetaminophen [Tylenol 8 Hour] 650 mg PO TID Melatonin 10 mg PO HS Ferrous Gluconate 324 mg PO BID Potassium Chloride ER [K-Dur 10] 10 meq PO DAILY Diclofenac Sodium [Voltaren Gel] 4 gram TOPICAL QID PRN PRN Reason: Pain Cholecalciferol [Vitamin D3 (25 Mcg = 1000 Iu)] 5,000 unit PO DAILY QUEtiapine [SEROquel] 25 mg PO TID Sennosides/Docusate Sodium [Senna Plus 8.6-50 mg Tablet] 2 tab PO HS Loperamide [Imodium] 2 mg PO DAILY PRN PRN Reason: Diarrhea L.acidoph,Paracasei, B.lactis [Probiotic] 1 cap PO DAILY Paliperidone IM [Invega Sustenna] 156 mg IM Q28D Meloxicam [Mobic] 7.5 mg PO DAILY Albuterol Inhaler [Ventolin Hfa Inhaler] 2 puff INHALATION RT-Q4H PRN PRN Reason: Shortness Of Breath Lidocaine 4% Cream [Lmx 4] 1 applic TOPICAL DAILY PRN PRN Reason: KNEE PAIN Mirabegron [Myrbetriq] 25 mg PO DAILY Tolnaftate [Tinactin] 1 applic TOPICAL DAILY PRN PRN Reason: Rash Nystatin 100,000 Unit/gm Powd [Mycostatin Powder] 1 applic TOPICAL BID Rivaroxaban [Xarelto] 10 mg PO DAILY Lovastatin [Mevacor] 10 mg PO DAILY lamoTRIgine [LaMICtal] 200 mg PO DAILY Gabapentin [Neurontin] 400 mg PO TID #9 cap Discharge Medication List Carvedilol [Coreg] 25 mg PO BID 06/07/17 [History] Levothyroxine Sodium [Synthroid] 137 mcg PO DAILY 10/20/17 [History] Montelukast [Singulair] 10 mg PO DAILY 06/28/18 [History] DULoxetine HCL [Cymbalta] 60 mg PO BID 08/15/18 [History] rOPINIRole HCL [Requip] 4 mg PO BID 11/18/18 [History] Torsemide [Demadex] 50 mg PO DAILY 12/15/18 [History] Acetaminophen [Tylenol 8 Hour] 650 mg PO TID 08/14/19 [History] Loratadine [Claritin] 10 mg PO DAILY 08/14/19 [History] Magnesium Oxide [Mag-Ox] 400 mg PO DAILY 08/14/19 [History] Multivitamins, Thera [Multivitamin (formulary)] 1 tab PO DAILY 08/14/19 [History] Omeprazole 20 mg PO DAILY 08/14/19 [History] allopurinoL [Zyloprim] 100 mg PO DAILY 08/14/19 [History] Ferrous Gluconate 324 mg PO BID 01/19/20 [History] Melatonin 10 mg PO HS 01/19/20 [History] Diclofenac Sodium [Voltaren Gel] 4 gram TOPICAL QID PRN 04/03/20 [History] Potassium Chloride ER [K-Dur 10] 10 meq PO DAILY 04/03/20 [History] Cholecalciferol [Vitamin D3 (25 Mcg = 1000 Iu)] 5,000 unit PO DAILY 04/28/20 [History] QUEtiapine [SEROquel] 25 mg PO TID 05/12/20 [History] Sennosides/Docusate Sodium [Senna Plus 8.6-50 mg Tablet] 2 tab PO HS 05/12/20 [History] L.acidoph,Paracasei, B.lactis [Probiotic] 1 cap PO DAILY 06/02/20 [History] Loperamide [Imodium] 2 mg PO DAILY PRN 06/02/20 [History] Paliperidone IM [Invega Sustenna] 156 mg IM Q28D 06/13/20 [History] Meloxicam [Mobic] 7.5 mg PO DAILY 06/21/20 [History] Albuterol Inhaler [Ventolin Hfa Inhaler] 2 puff INHALATION RT-Q4H PRN 07/14/20 [History] Lidocaine 4% Cream [Lmx 4] 1 applic TOPICAL DAILY PRN 07/14/20 [History] Mirabegron [Myrbetriq] 25 mg PO DAILY 07/14/20 [History] Nystatin 100,000 Unit/gm Powd [Mycostatin Powder] 1 applic TOPICAL BID 07/14/20 [History] Tolnaftate [Tinactin] 1 applic TOPICAL DAILY PRN 07/14/20 [History] Rivaroxaban [Xarelto] 10 mg PO DAILY 07/30/20 [History] Lovastatin [Mevacor] 10 mg PO DAILY 08/16/20 [History] lamoTRIgine [LaMICtal] 200 mg PO DAILY 08/16/20 [History] Gabapentin [Neurontin] 400 mg PO TID #9 cap 08/17/20 [Rx] Cefuroxime [Ceftin] 250 mg PO BID 3 Days #6 tab 08/19/20 [Rx] Follow up Appointment(s)/Referral(s): [facility] [Primary Care Provider] - 1 Week (After discharge from ECF) Discharge Disposition: TRANSFER TO SNF/ECF
[2020-08-22] MEDS ORDERED: PALIPERIDONE IM 156 MG/ML SYG IM SCH (09:00)
--- NOTE | 2020-08-24 08:54 | CDI ---
Documentation Clarification Form Date: 08/24/2020 08:20:20 AM From: Sobeida Mohan RN, CCDS Admit Date: 08/17/2020 09:35:00 AM Patient Name: Magda Lerner Visit Number: [id number] Discharge Date: 08/19/2020 04:39:00 PM ATTENTION: The Clinical Documentation Specialists (CDI) and [facility] Coding Staff appreciate your assistance in clarifying documentation. Please respond to the clarification below the line at the bottom and electronically sign. The CDI & [facility] Coding staff will review the response and follow-up if needed. Please note: Queries are made part of the Legal Health Record. If you have any questions, please contact the author of this message via ITS. Dr. Gregory Denise A diagnosis of acute UTI has been documented on 08/18 and subsequent progress notes. The patient presented to ED on 08/16 and a Rodriguez catheter was inserted. Please render your opinion on the cause effect relationship if any. History/Risk Factors: Asthma, Heart Failure, COPD, Diabetes Mellitus Hypertension, Morbid obesity, UTIs Clinical Indicators: 60-year-old female present to ED on 08/16 after fall and complaint of left hip and knee pain. Per documentation a Rodriguez catheter was insertion 08/16/20 required immobilization, color pale yellow. 08/17 Urinalysis: Urine appearance -Turbid, Ur Leukocyte Esterase -Large, Urine WBC >182 08/17 Urine culture: Escherichia coli Treatment: Rocephin 1 gm IVBP Q 24 hrs 08/19 DC Rodriguez catheter In your professional opinion, can you please clarify the etiology of the UTI, if known? xx UTI due to Rodriguez catheter UTI not related to Rodriguez catheter and present on admission Other condition, please specify Unable to determine If an infective organism is present, please specify cause and effect relationship if applicable. (Last Revision: December 2017) MTDD
--- NOTE | 2020-08-24 08:58 | CDI ---
Documentation Clarification Form Date: 08/17/2020 03:40:00 PM From: Sobeida Mohan RN, CCDS Admit Date: 08/17/2020 09:35:00 AM Patient Name: Magda Lerner Visit Number: [id number] Discharge Date: 08/19/2020 04:39:00 PM ATTENTION: The Clinical Documentation Specialists (CDI) and [facility] Coding Staff appreciate your assistance in clarifying documentation. Please respond to the clarification below the line at the bottom and electronically sign. The CDI & [facility] Coding staff will review the response and follow-up if needed. Please note: Queries are made part of the Legal Health Record. If you have any questions, please contact the author of this message via ITS. Dr. Gregory Denise Heart failure is documented in the past medical history, further clarification is requested History/Risk Factors: Heart Failure, COPD, Asthma, Diabetes Mellitus, Hypertension Osteoarthritis, Gout Clinical Indicators: 60-year-old female who present after a fall with left knee pain. No fracture noted. She has a history of heart failure, moderate severe aortic stenosis. 07/18 at 08:00 Vital Signs: 07/08/79 97 16 97.6 94 % RA Echocardiogram Results: (06/03/20) Overall left ventricular systolic function is low-normal with, an EF between 50-55 % the right ventricle is mild to moderately enlarged. 08/16 Chest X Ray: Cardiomegaly. No interval change from prior exam. Mold interstitial prominence could represent chronic interstitial lung disease, venous congestion or interstitial pneumonitis but is stable Treatment: Lipitor 10 mg po daily Coreg 25 mg po ac bid Demadex 50 mg po daily In your professional opinion, can you please clarify the acuity and type of CHF if known? xxChronic Diastolic Heart Failure: Unable to Determine Other, please specify (Last Revision: December 2017) MTDD
== END 2020-08-19 16:39 | DRG 605 ==
LOC: EC 12:08 → 5NMEDONC 17:25 → OBSVTOIN 08-17 09:35 → 5NMEDONC 08-17 23:09
PROVIDERS: ADMIT Internal Medicine Geriatric Medicine; ATTEND Internal Medicine Geriatric Medicine
DX: S70.02XA Contusion of left hip, initial encounter (principal); T83.511A Infection and inflammatory reaction due to indwelling urethral catheter, initial encounter; N39.0 Urinary tract infection, site not specified; Z68.44 Body mass index [BMI] 60.0-69.9, adult; I50.32 Chronic diastolic (congestive) heart failure; M17.12 Unilateral primary osteoarthritis, left knee; E78.5 Hyperlipidemia, unspecified; E66.01 Morbid (severe) obesity due to excess calories; F43.10 Post-traumatic stress disorder, unspecified; F41.0 Panic disorder [episodic paroxysmal anxiety]; F60.3 Borderline personality disorder; G25.81 Restless legs syndrome; E03.9 Hypothyroidism, unspecified; Z20.828 Contact with and (suspected) exposure to other viral communicable diseases; I25.10 Atherosclerotic heart disease of native coronary artery without angina pectoris; I11.0 Hypertensive heart disease with heart failure; Z96.651 Presence of right artificial knee joint; J44.9 Chronic obstructive pulmonary disease, unspecified; W01.0XXA Fall on same level from slipping, tripping and stumbling without subsequent striking against object, initial encounter; M1A.9XX0 Chronic gout, unspecified, without tophus (tophi); D63.8 Anemia in other chronic diseases classified elsewhere; E11.9 Type 2 diabetes mellitus without complications; F31.9 Bipolar disorder, unspecified; I35.0 Nonrheumatic aortic (valve) stenosis; R53.81 Other malaise; J45.20 Mild intermittent asthma, uncomplicated; K82.8 Other specified diseases of gallbladder; Z98.84 Bariatric surgery status; Z91.5 Personal history of self-harm; Z86.711 Personal history of pulmonary embolism; Z83.3 Family history of diabetes mellitus; Z82.49 Family history of ischemic heart disease and other diseases of the circulatory system; Z80.1 Family history of malignant neoplasm of trachea, bronchus and lung; Z79.899 Other long term (current) drug therapy; Z79.890 Hormone replacement therapy; Z79.1 Long term (current) use of non-steroidal anti-inflammatories (NSAID); Z79.01 Long term (current) use of anticoagulants; Z88.0 Allergy status to penicillin; Z88.2 Allergy status to sulfonamides; Z88.7 Allergy status to serum and vaccine; Z88.8 Allergy status to other drugs, medicaments and biological substances; Z88.4 Allergy status to anesthetic agent; Z91.041 Radiographic dye allergy status; Z87.440 Personal history of urinary (tract) infections
CPT/HCPCS: 36415; 51702; 71046; 72170; 73502; 80048; 81001; 82728; 83605; 83615; 84145; 85025; 85379; 85610; 85730; 87040; 87077; 87086; 87186; 87502; 87635; 93005; 96361; 96374; 96375; 96376; 99285

== ENCOUNTER 2020-11-16 15:57 | Emergency (ER) | payer MEDICARE, OTHER ==
[2020-11-16 16:10] VITALS: BP 141/75; PULSE 76; RESP 18; TEMP 97.7
[2020-11-16] MEDS ORDERED: HYDROcodone/APAP 5-325MG 1 EACH TAB PO STA (16:29)
[2020-11-16 16:57] LABS: Appearance,Urine Clear (Clear); Bacteria,Urine Rare /hpf; Bilirubin,Urine Negative (Negative); Blood,Urine Negative (Negative); Color,Urine Light Yellow; Glucose,Urine (UA) Negative (Negative); Hyaline Casts,Urine 1 /lpf (0-2); Ketones,Urine Negative (Negative); Leukocyte Esterase,Urine Trace (Negative); Mucus,Urine Rare /hpf; Nitrite,Urine Negative (Negative); Protein,Urine Negative (Negative); Specific Gravity,Urine 1.009 (1.001-1.035); Squamous Epithelial Cell,Urine <1 /hpf (0-4); Urobilinogen,Urine <2.0 mg/dL (<2.0); WBC,Urine 2 /hpf (0-5)
--- NOTE | 2020-11-16 17:32 | XR ---
EXAMINATION TYPE: XR lumbar spine 2 or 3V DATE OF EXAM: 11/16/2020 COMPARISON: 03/31/2018 HISTORY: Back pain TECHNIQUE: 3 views FINDINGS: There is vacuum disc at L2-3 and L3-4. There is osteosclerosis on both sides of the L2-3 di sc. There is no compression fracture. Joints are intact. Posterior elements are intact. IMPRESSION: Spondylotic changes as above. Sclerosis at L2-3 could relate to some old chronic discitis . Overall no significant change compared to old exam. No compression fracture.
--- NOTE | 2020-11-16 17:54 | ED ---
Back Pain HPI - General Chief Complaint: Back Pain/Injury Stated Complaint: Back pain Time Seen by Provider: 11/16/20 16:22 Source: EMS Limitations: no limitations - History of Present Illness Initial Comments: 60-year-old female with extensive past medical history presenting today for chief complaint of right low back pain. Patient states that she recently changed nursing homes from a residential in [place] to now [facility]. Patient states that she has a new bed that is a different height she states it is quite tolerable and more difficult to get in and out of. Patient states the past day she's had increasing low back pain and she believes is related to the height of the bed. Patient denies any loss of bowel bladder control urinary retention loss of sensation or weakness of the lower extremities. She states she doesn't some tenderness of the right lower leg anteriorly that is slightly red. She denies any fevers chills general malaise she denies nausea vomiting chest pain shortness of breath. Patient denies any falls or direct trauma. Patietn denies cancer, or IVDU. Patient admits to some urinary frequency, no nausea, vomiting, or hematuria. Patient has no additional complaints or concerns. - Related Data Home Medications Medication Instructions Recorded Confirmed Carvedilol [Coreg] 25 mg PO BID 06/07/17 08/16/20 Levothyroxine Sodium [Synthroid] 137 mcg PO DAILY 10/20/17 08/16/20 Montelukast [Singulair] 10 mg PO DAILY 06/28/18 08/16/20 DULoxetine HCL [Cymbalta] 60 mg PO BID 08/15/18 08/16/20 rOPINIRole HCL [Requip] 4 mg PO BID 11/18/18 08/16/20 Torsemide [Demadex] 50 mg PO DAILY 12/15/18 08/16/20 Acetaminophen [Tylenol 8 Hour] 650 mg PO TID 08/14/19 08/16/20 Loratadine [Claritin] 10 mg PO DAILY 08/14/19 08/16/20 Magnesium Oxide [Mag-Ox] 400 mg PO DAILY 08/14/19 08/16/20 Multivitamins, Thera [Multivitamin 1 tab PO DAILY 08/14/19 08/16/20 (formulary)] Omeprazole 20 mg PO DAILY 08/14/19 08/16/20 allopurinoL [Zyloprim] 100 mg PO DAILY 08/14/19 08/16/20 Ferrous Gluconate 324 mg PO BID 01/19/20 08/16/20 Melatonin 10 mg PO HS 01/19/20 08/16/20 Diclofenac Sodium [Voltaren Gel] 4 gram TOPICAL QID PRN 04/03/20 08/16/20 Potassium Chloride ER [K-Dur 10] 10 meq PO DAILY 04/03/20 08/16/20 Cholecalciferol [Vitamin D3 (25 5,000 unit PO DAILY 04/28/20 08/16/20 Mcg = 1000 Iu)] QUEtiapine [SEROquel] 25 mg PO TID 05/12/20 08/16/20 Sennosides/Docusate Sodium [Senna 2 tab PO HS 05/12/20 08/16/20 Plus 8.6-50 mg Tablet] L.acidoph,Paracasei, B.lactis 1 cap PO DAILY 06/02/20 08/16/20 [Probiotic] Loperamide [Imodium] 2 mg PO DAILY PRN 06/02/20 08/16/20 Paliperidone IM [Invega Sustenna] 156 mg IM Q28D 06/13/20 08/16/20 Meloxicam [Mobic] 7.5 mg PO DAILY 06/21/20 08/16/20 Albuterol Inhaler [Ventolin Hfa 2 puff INHALATION RT-Q4H PRN 07/14/20 08/16/20 Inhaler] Lidocaine 4% Cream [Lmx 4] 1 applic TOPICAL DAILY PRN 07/14/20 08/16/20 Mirabegron [Myrbetriq] 25 mg PO DAILY 07/14/20 08/16/20 Nystatin 100,000 Unit/gm Powd 1 applic TOPICAL BID 07/14/20 08/16/20 [Mycostatin Powder] Tolnaftate [Tinactin] 1 applic TOPICAL DAILY PRN 07/14/20 08/16/20 Rivaroxaban [Xarelto] 10 mg PO DAILY 07/30/20 08/16/20 Lovastatin [Mevacor] 10 mg PO DAILY 08/16/20 08/16/20 lamoTRIgine [LaMICtal] 200 mg PO DAILY 08/16/20 08/16/20 Previous Rx's Medication Instructions Recorded Gabapentin [Neurontin] 400 mg PO TID #9 cap 08/17/20 Cefuroxime [Ceftin] 250 mg PO BID 3 Days #6 tab 08/19/20 Cephalexin [Keflex] 500 mg PO Q6HR 7 Days #28 cap 11/16/20 Allergies Allergy/AdvReac Type Severity Reaction Status Date / Time buspirone [From BuSpar] Allergy Rash/Hives Verified 11/16/20 16:10 haloperidol [From Haldol] Allergy Swelling Verified 11/16/20 16:10 hydroxyzine [From Vistaril] Allergy Rash/Hives Verified 11/16/20 16:10 iodine Allergy Swelling Verified 11/16/20 16:10 Penicillins Allergy Swelling Verified 11/16/20 16:10 prochlorperazine Allergy Rash/Hives Verified 11/16/20 16:10 Sulfa (Sulfonamide Allergy Rash/Hives Verified 11/16/20 16:10 Antibiotics) Tetanus Vaccines and Toxoid Allergy Rash/Hives Verified 11/16/20 16:10 [Tetanus Vaccines & Toxoid] trifluoperazine HCl Allergy Unknown Verified 11/16/20 16:10 [From Stelazine] Review of Systems ROS Statement: Those systems with pertinent positive or pertinent negative responses have been documented in the HPI. ROS Other: All systems not noted in ROS Statement are negative. Past Medical History Past Medical History: Asthma, Heart Failure, COPD, Diabetes Mellitus, GERD/Reflux, Hyperlipidemia, Hypertension, Musculoskeletal Disorder, Osteoarthritis (OA), Pneumonia, Pulmonary Embolus (PE), Thyroid Disorder Additional Past Medical History / Comment(s): chronic low back pain, herniated discs, RLS, leg edema, anemia, gout bilateral feet, hypothyroid, UTIs, hx cellulitis, cataracts, macular degeneration, DM (diet controlled) History of Any Multi-Drug Resistant Organisms: None Reported Past Surgical History: Bariatric Surgery, Heart Catheterization, Hernia Repair, Orthopedic Surgery Additional Past Surgical History / Comment(s): Total Right knee replacement, 3 abdominal hernia repairs, left hip repair d/t fracture, gastric bypass/revision, colonoscopy. Past Anesthesia/Blood Transfusion Reactions: No Reported Reaction Past Psychological History: Anxiety, Bipolar, Depression, Panic Disorder, PTSD Smoking Status: Never smoker Past Alcohol Use History: Occasional Past Drug Use History: None Reported - Past Family History Mother Family Medical History: Cancer Additional Family Medical History / Comment(s): lung cancer Father Family Medical History: Diabetes Mellitus Additional Family Medical History / Comment(s): "my dad from a blood clot that traveled from his leg to his lung and also caused a heart attack." Brother(s) Family Medical History: Diabetes Mellitus Sister(s) Additional Family Medical History / Comment(s): "her heart races too fast" General Exam - General Exam Comments Initial Comments: General: The patient is awake and alert, in no distress Eye: +3 mm pupils are equal, round and reactive to light, extra-ocular movements are intact. No nystagmus. There is normal conjunctiva bilaterally. No signs of icterus. Ears, nose, mouth and throat: There are moist mucous membranes and no oral lesions. Neck: The neck is supple, there is no tenderness or JVD. Cardiovascular: There is a regular rate and rhythm. No murmur, rub or gallop is appreciated. Respiratory: Lungs are clear to auscultation, respirations are non-labored, breath sounds are equal. No wheezes, stridor, rales, or rhonchi. Gastrointestinal: Soft, non-distended, non-tender abdomen without masses or organomegaly noted. There is no rebound or guarding present. No CVA tenderness. Musculoskeletal: Upon section of the lower extremity bilaterally there is some slight anterior redness of the right thompson. warm to touch. Normal ROM, no tenderness. Strength of e LE b/l Sensation intact of LE b/l including the saddle region. radial and DP pulses equal bilaterally 2+. Index without difficulty Neurological: A&O x 3. CN II-XII intact grossly, There are no obvious motor or sensory deficits. Coordination appears grossly intact. Speech is normal. Skin: Skin is warm and dry and no rashes or lesions are noted. Psychiatric: Cooperative, appropriate mood & affect, normal judgment. Limitations: no limitations Course Vital Signs 11/16/20 16:06 Temperature 97.7 F Pulse Rate 76 Respiratory 18 Rate Blood Pressure 141/75 O2 Sat by Pulse 96 Oximetry Medical Decision Making - Medical Decision Making Incidental finding of right lower leg cellulitis this appears mild patient denies constitutional symptoms she is not tachycardic febrile-nor appears toxic. Patient presented for low back pain there is no alarming features patient is morbidly obese and x-rays were obtained despite no injury. There are chronic findings without acute changes. Patient denies any loss of bowel bladder control urinary retention there is no other alarming features. patient educated on over the counter and at him symptomatically treatment. Patient is agreeable to this I discussed cellulitis and signs of worsening infection as well as the importance of primary care follow-up patient is agreeable to discharge at this time. - Lab Data Lab Results 11/16/20 Range/Units 16:44 Urine Color Light Yellow Urine Appearance Clear (Clear) Urine pH 5.0 (5.0-8.0) Ur Specific [place] 1.009 (1.001-1.035) Urine Protein Negative (Negative) Urine Glucose (UA) Negative (Negative) Urine Ketones Negative (Negative) Urine Blood Negative (Negative) Urine Nitrite Negative (Negative) Urine Bilirubin Negative (Negative) Urine Urobilinogen <2.0 (<2.0) mg/dL Ur Leukocyte Esterase Trace H (Negative) Urine WBC 2 (0-5) /hpf Ur Squamous Epith Cells <1 (0-4) /hpf Urine Bacteria Rare H (None) /hpf Hyaline Casts 1 (0-2) /lpf Urine Mucus Rare H (None) /hpf Disposition Clinical Impression: Low back pain, Cellulitis of right lower extremity Disposition: HOME SELF-CARE Condition: Good Instructions (If sedation given, give patient instructions): Cellulitis (ED), Acute Low Back Pain (ED) Additional Instructions: Please use medication as discussed. Please follow-up with family doctor in the next 2 days. Return for fevers, leg weakness, sensation changes of legs, loss of bowel or bladder control, inability to urinate (pee). Please return to emergency room if the symptoms increase or worsen or for any other concerns. Prescriptions: Cephalexin [Keflex] 500 mg PO Q6HR 7 Days #28 cap Is patient prescribed a controlled substance at d/c from ED?: No Referrals: [facility] [Primary Care Provider] - 1-2 days Time of Disposition: 17:54
== END 2020-11-16 18:20 | disposition home or self-care (01) ==
LOC: EC 15:57
DX: L03.312 Cellulitis of back [any part except buttock and flank] (principal); J44.9 Chronic obstructive pulmonary disease, unspecified; I11.0 Hypertensive heart disease with heart failure; I50.9 Heart failure, unspecified; K21.9 Gastro-esophageal reflux disease without esophagitis; E78.5 Hyperlipidemia, unspecified; M19.90 Unspecified osteoarthritis, unspecified site; E07.9 Disorder of thyroid, unspecified; F32.9 Major depressive disorder, single episode, unspecified; F41.0 Panic disorder [episodic paroxysmal anxiety]; Z86.711 Personal history of pulmonary embolism; Z95.5 Presence of coronary angioplasty implant and graft
CPT/HCPCS: 72100; 81001; 99284

== ENCOUNTER 2020-11-27 18:51 | Emergency (ER) | payer MEDICARE, OTHER ==
[2020-11-27 19:58] VITALS: TEMP 97.5
[2020-11-27 20:17] VITALS: RESP 18
[2020-11-27] MEDS ORDERED: ONDANSETRON 4 MG/2 ML VIAL IVP STA (20:36)
--- NOTE | 2020-11-27 20:50 | ED ---
General Adult HPI - General Chief complaint: Chest Pain Stated complaint: N&V Time Seen by Provider: 11/27/20 20:12 Source: patient Mode of arrival: wheelchair Limitations: no limitations - History of Present Illness Initial comments: Dictation was produced using [employer] dictation software. please excuse any grammatical, word or spelling errors. This patient was cared for during a federal and state declared state of emergency secondary to Covid 19 Chief Complaint: 60-year-old female well-known to emergency department for multiple visitations presents today for nausea vomiting and epigastric pain for the last 2 hours. History of Present Illness: Patient is 60-year-old female she is well-known to emergency department. She is known for coming to the emergency department for a myriad of complaints. Patient has past medical history of heart failure COPD and diabetes. States for the last 2 hours she's been feeling nauseated and having some vomiting does not know some bloody. She had some cabbage dish prior to the onset of her symptoms. She called EMS is brought to the emergency room. She has past medical history of bariatric surgery, hernia repair. She still has all her intra-abdominal organs. The ROS documented in this emergency department record has been reviewed and confirmed by me. Those systems with pertinent positive or negative responses have been documented in the HPI. All other systems are other negative and/or noncontributory. PHYSICAL EXAM: General Impression: Alert and oriented x3, not in acute distress HEENT: Normocephalic atraumatic, extra-ocular movements intact, pupils equal and reactive to light bilaterally, mucous membranes moist. Cardiovascular: Heart regular rate and rhythm Chest: Able to complete full sentences, no retractions, no tachypnea Abdomen: abdomen soft, non-tender, non-distended, no organomegaly, negative Little sign Musculoskeletal: Pulses present and equal in all extremities, no peripheral edema Motor: no focal deficits noted Neurological: CN II-XII grossly intact, no focal motor or sensory deficits noted Skin: Intact with no visualized rashes Psych: Normal affect and mood ED course: 60-year-old female with chief complaint of nausea, vomiting and epigastric pain. Vital signs upon arrival shows 86% saturation on room air, rest of vital signs within acceptable limits. EKG does not show any signs of ischemia or infarction. She had a catheterization performed in 2018 that was completely normal. Patient refused chest x-ray. Discussed patient that she has hypoxic measurements on her initial vital signs. Patient is difficult to reason with and continues to refuse. EKG interpretation: Ventricular rate 66, normal sinus rhythm,. Interval 160, QRS 86, QTC 431. No IN prolongation, no QTC prolongation, no ST or T-wave changes noted. EKG compared to August 16 2020 showing no changes. Overall, this EKG is unremarkable Patient is reevaluated at bedside at 9:20 PM. She is in stable medical condition. She is resting comfortably and in no acute distress. Patient not actively vomiting. Her labs are unremarkable. EKGs benign. Patient will be discharged. She is agreeable to disposition. She reports improvement of symptoms after IV analgesia. - Related Data Home Medications Medication Instructions Recorded Confirmed Carvedilol [Coreg] 25 mg PO BID 06/07/17 08/16/20 Levothyroxine Sodium [Synthroid] 137 mcg PO DAILY 10/20/17 08/16/20 Montelukast [Singulair] 10 mg PO DAILY 06/28/18 08/16/20 DULoxetine HCL [Cymbalta] 60 mg PO BID 08/15/18 08/16/20 rOPINIRole HCL [Requip] 4 mg PO BID 11/18/18 08/16/20 Torsemide [Demadex] 50 mg PO DAILY 12/15/18 08/16/20 Acetaminophen [Tylenol 8 Hour] 650 mg PO TID 08/14/19 08/16/20 Loratadine [Claritin] 10 mg PO DAILY 08/14/19 08/16/20 Magnesium Oxide [Mag-Ox] 400 mg PO DAILY 08/14/19 08/16/20 Multivitamins, Thera [Multivitamin 1 tab PO DAILY 08/14/19 08/16/20 (formulary)] Omeprazole 20 mg PO DAILY 08/14/19 08/16/20 allopurinoL [Zyloprim] 100 mg PO DAILY 08/14/19 08/16/20 Ferrous Gluconate 324 mg PO BID 01/19/20 08/16/20 Melatonin 10 mg PO HS 01/19/20 08/16/20 Diclofenac Sodium [Voltaren Gel] 4 gram TOPICAL QID PRN 04/03/20 08/16/20 Potassium Chloride ER [K-Dur 10] 10 meq PO DAILY 04/03/20 08/16/20 Cholecalciferol [Vitamin D3 (25 5,000 unit PO DAILY 04/28/20 08/16/20 Mcg = 1000 Iu)] QUEtiapine [SEROquel] 25 mg PO TID 05/12/20 08/16/20 Sennosides/Docusate Sodium [Senna 2 tab PO HS 05/12/20 08/16/20 Plus 8.6-50 mg Tablet] L.acidoph,Paracasei, B.lactis 1 cap PO DAILY 06/02/20 08/16/20 [Probiotic] Loperamide [Imodium] 2 mg PO DAILY PRN 06/02/20 08/16/20 Paliperidone IM [Invega Sustenna] 156 mg IM Q28D 06/13/20 08/16/20 Meloxicam [Mobic] 7.5 mg PO DAILY 06/21/20 08/16/20 Albuterol Inhaler [Ventolin Hfa 2 puff INHALATION RT-Q4H PRN 07/14/20 08/16/20 Inhaler] Lidocaine 4% Cream [Lmx 4] 1 applic TOPICAL DAILY PRN 07/14/20 08/16/20 Mirabegron [Myrbetriq] 25 mg PO DAILY 07/14/20 08/16/20 Nystatin 100,000 Unit/gm Powd 1 applic TOPICAL BID 07/14/20 08/16/20 [Mycostatin Powder] Tolnaftate [Tinactin] 1 applic TOPICAL DAILY PRN 07/14/20 08/16/20 Rivaroxaban [Xarelto] 10 mg PO DAILY 07/30/20 08/16/20 Lovastatin [Mevacor] 10 mg PO DAILY 08/16/20 08/16/20 lamoTRIgine [LaMICtal] 200 mg PO DAILY 08/16/20 08/16/20 Previous Rx's Medication Instructions Recorded Gabapentin [Neurontin] 400 mg PO TID #9 cap 08/17/20 Cefuroxime [Ceftin] 250 mg PO BID 3 Days #6 tab 08/19/20 Cephalexin [Keflex] 500 mg PO Q6HR 7 Days #28 cap 11/16/20 Allergies Allergy/AdvReac Type Severity Reaction Status Date / Time buspirone [From BuSpar] Allergy Rash/Hives Verified 03/28/21 19:58 haloperidol [From Haldol] Allergy Swelling Verified 11/27/20 19:58 hydroxyzine [From Vistaril] Allergy Rash/Hives Verified 11/27/20 19:58 iodine Allergy Swelling Verified 11/27/20 19:58 Penicillins Allergy Swelling Verified 11/27/20 19:58 prochlorperazine Allergy Rash/Hives Verified 11/27/20 19:58 Sulfa (Sulfonamide Allergy Rash/Hives Verified 11/27/20 19:58 Antibiotics) Tetanus Vaccines and Toxoid Allergy Rash/Hives Verified 11/27/20 19:58 [Tetanus Vaccines & Toxoid] trifluoperazine HCl Allergy Unknown Verified 11/27/20 19:58 [From Stelazine] Review of Systems ROS Statement: Those systems with pertinent positive or pertinent negative responses have been documented in the HPI. ROS Other: All systems not noted in ROS Statement are negative. Past Medical History Past Medical History: Asthma, Heart Failure, COPD, Diabetes Mellitus, GERD/Reflux, Hyperlipidemia, Hypertension, Musculoskeletal Disorder, Osteoarthritis (OA), Pneumonia, Pulmonary Embolus (PE), Thyroid Disorder Additional Past Medical History / Comment(s): chronic low back pain, herniated discs, RLS, leg edema, anemia, gout bilateral feet, hypothyroid, UTIs, hx cellu litis, cataracts, macular degeneration, DM (diet controlled) History of Any Multi-Drug Resistant Organisms: None Reported Past Surgical History: Bariatric Surgery, Heart Catheterization, Hernia Repair, Orthopedic Surgery Additional Past Surgical History / Comment(s): Total Right knee replacement, 3 abdominal hernia repairs, left hip repair d/t fracture, gastric bypass/revision, colonoscopy. Past Anesthesia/Blood Transfusion Reactions: No Reported Reaction Past Psychological History: Anxiety, Bipolar, Depression, Panic Disorder, PTSD Smoking Status: Never smoker Past Alcohol Use History: Occasional Past Drug Use History: None Reported - Past Family History Mother Family Medical History: Cancer Additional Family Medical History / Comment(s): lung cancer Father Family Medical History: Diabetes Mellitus Additional Family Medical History / Comment(s): "my dad from a blood clot that traveled from his leg to his lung and also caused a heart attack." Brother(s) Family Medical History: Diabetes Mellitus Sister(s) Additional Family Medical History / Comment(s): "her heart races too fast" General Exam Limitations: no limitations Course Vital Signs 03/28/21 03/28/21 19:54 21:09 Temperature 97.5 F L Pulse Rate 68 70 Respiratory 18 18 Rate Blood Pressure 121/72 113/70 O2 Sat by Pulse 86 L 98 Oximetry Medical Decision Making - Lab Data Result diagrams: 11/27/20 20:35 11/27/20 20:35 Lab Results 11/27/20 11/27/20 Range/Units 20:35 20:35 WBC 7.3 (3.8-10.6) k/uL RBC 3.79 L (3.80-5.40) m/uL Hgb 10.6 L (11.4-16.0) gm/dL Hct 34.1 (34.0-46.0) % MCV 89.8 (80.0-100.0) fL MCH 28.1 (25.0-35.0) pg MCHC 31.3 (31.0-37.0) g/dL RDW 14.7 (11.5-15.5) % Plt Count 310 (150-450) k/uL MPV 7.6 Neutrophils % 66 % Lymphocytes % 19 % Monocytes % 7 % Eosinophils % 4 % Basophils % 1 % Neutrophils # 4.8 (1.3-7.7) k/uL Lymphocytes # 1.4 (1.0-4.8) k/uL Monocytes # 0.5 (0-1.0) k/uL Eosinophils # 0.3 (0-0.7) k/uL Basophils # 0.1 (0-0.2) k/uL Sodium 138 (137-145) mmol/L Potassium 4.7 (3.5-5.1) mmol/L Chloride 104 (98-107) mmol/L Carbon Dioxide 25 (22-30) mmol/L Anion Gap 9 mmol/L BUN 40 H (7-17) mg/dL Creatinine 1.10 H (0.52-1.04) mg/dL Est GFR (CKD-EPI)AfAm 64 (>60 ml/min/1.73 sqM) Est GFR (CKD-EPI)NonAf 55 (>60 ml/min/1.73 sqM) Glucose 104 H (74-99) mg/dL Calcium 8.8 (8.4-10.2) mg/dL Total Bilirubin 0.4 (0.2-1.3) mg/dL AST 28 (14-36) U/L ALT 14 (4-34) U/L Alkaline Phosphatase 77 (38-126) U/L Total Protein 6.8 (6.3-8.2) g/dL Albumin 4.1 (3.5-5.0) g/dL Lipase 53 (23-300) U/L Disposition Clinical Impression: Nausea & vomiting Disposition: HOME SELF-CARE Condition: Good Instructions (If sedation given, give patient instructions): Acute Nausea and Vomiting (ED) Is patient prescribed a controlled substance at d/c from ED?: No Referrals: Beau Jade MD [Primary Care Provider] - 1-2 days Time of Disposition: 21:27
[2020-11-27 21:10] VITALS: BP 113/70; PULSE 70
[2020-11-27 21:13] LABS: Basophils # (A) 0.1 k/uL (0-0.2); Basophils % (A) 1 %; Eosinophils # (A) 0.3 k/uL (0-0.7); Eosinophils % (A) 4 %; HCT 34.1 % (34.0-46.0); HGB 10.6 gm/dL (11.4-16.0); Lymphocytes # (A) 1.4 k/uL (1.0-4.8); Lymphocytes % (A) 19 %; MCH 28.1 pg (25.0-35.0); MCHC 31.3 g/dL (31.0-37.0); MCV 89.8 fL (80.0-100.0); Mean Platelet Volume 7.6; Monocytes # (A) 0.5 k/uL (0-1.0); Monocytes % (A) 7 %; Neutrophils # (A) 4.8 k/uL (1.3-7.7); Neutrophils % (A) 66 %; Platelet Count 310 k/uL (150-450); RBC 3.79 m/uL (3.80-5.40); RDW 14.7 % (11.5-15.5); WBC 7.3 k/uL (3.8-10.6)
[2020-11-27 21:21] LABS: Albumin 4.1 g/dL (3.5-5.0); Calcium 8.8 mg/dL (8.4-10.2); Potassium 4.7 mmol/L (3.5-5.1); Total Bilirubin 0.4 mg/dL (0.2-1.3); Total Protein 6.8 g/dL (6.3-8.2)
[2020-11-27] MEDS ORDERED: MORPHINE SULFATE 4 MG/ML SYRINGE IVP PRN (22:01)
== END 2020-11-27 22:11 | disposition home or self-care (01) ==
LOC: EC 18:51
DX: R11.2 Nausea with vomiting, unspecified (principal); K21.9 Gastro-esophageal reflux disease without esophagitis; E03.9 Hypothyroidism, unspecified; E11.36 Type 2 diabetes mellitus with diabetic cataract; E78.5 Hyperlipidemia, unspecified; I11.0 Hypertensive heart disease with heart failure; I50.9 Heart failure, unspecified; J44.9 Chronic obstructive pulmonary disease, unspecified; Z79.1 Long term (current) use of non-steroidal anti-inflammatories (NSAID); Z79.899 Other long term (current) drug therapy; Z86.711 Personal history of pulmonary embolism; Z88.0 Allergy status to penicillin; F32.9 Major depressive disorder, single episode, unspecified; F41.9 Anxiety disorder, unspecified
CPT/HCPCS: 36415; 93005; 80053; 83690; 85025; 87635; 99285; 96374; 96375; J2270; J2405

== ENCOUNTER → 2020-12-09 | Day surgery (SDC) | payer MEDICARE, OTHER ==
[2020-12-01 13:40] VITALS: BMI 63.2
[~2020-12-09] MED LIST changes: +ACETAMINOPHEN TAB 500 MG TAB PO PRN; -ALPRAZolam 0.25 MG TAB PO PRN; -ALPRAZolam 0.5 MG TAB PO PRN; -ASPIRIN 325 MG TAB PO STA; -ATORVASTATIN 80 MG TAB PO STA; +BUPIVACAINE (PF) 0.25% 30 ML VIAL SQ ONE; +DEXAMETHASONE SOD PHOSPHATE 4 MG/ML 1 ML VIAL IV ONE; +GLYCOPYRROLATE 0.2 MG/ML 2 ML VIAL ONE; +HEPARIN SODIUM,PORCINE/PF 5,000 UNIT/0.5 ML SYRINGE SQ PRN; +KETOROLAC 15 MG/ML 1 ML VIAL IVP ONE; +LACTATED RINGERS 1,000 ML IV SCH; +LIDOCAINE 1% INJ 10MG/ML (20 ML MDV) ONE; +MIDAZOLAM 2 MG/2 ML VIAL IV PRN; +MIDAZOLAM 2 MG/2 ML VIAL ONE; +NEOSTIGMINE 1 MG/ML 10 ML VIAL ONE; -NITROGLYCERIN SL TABS 0.4 MG TAB SUBLINGUAL PRN; +ONDANSETRON 4 MG/2 ML VIAL IVP ONE; +PHENYLEPHRINE-0.9% NACL SYG 1,000 MCG/10 ML SYRINGE ONE; +PROPOFOL 10 MG/ML 20 ML VIAL IV ONE; +ROCURONIUM 10 MG/ML (5 ML VIAL) IV ONE; +SCOPOLAMINE 1.5MG/72HR PATCH TRANSDERM ONE; -SODIUM CHLORIDE 0.9% 1,000 ML in EMPTY BAG 1 BAG IV ONE; +SUCCINYLCHOLINE CHLORIDE VIAL 200 MG/10 ML VIAL IV ONE; +ceFAZolin 3 GM in SODIUM CHLORIDE 0.9% 100 ML IVPB PRN; +ePHEDrine SULFATE/0.9% NACL/PF 50 MG/5 ML SYRINGE IV ONE; +fentaNYL (PF) 50 MCG/ML 2 ML AMP ONE
[2020-12-09 09:28] LABS: Glucose,Whole Blood 111 mg/dL (75-99)
--- NOTE | 2020-12-09 10:31 | P.GSHP ---
History of Present Illness H&P Date: 12/09/20 Chief Complaint: Cholelithiasis Is a 60-year-old female who presents today for laparoscopic cholecystectomy. Patient's had complaints of right quadrant pain. She is known to have gallstones. Past Medical History Past Medical History: Asthma, Heart Failure, COPD, Diabetes Mellitus, GERD/Reflux, Hyperlipidemia, Hypertension, Musculoskeletal Disorder, Osteoarthritis (OA), Pneumonia, Pulmonary Embolus (PE), Thyroid Disorder Additional Past Medical History / Comment(s): Chronic low back and bilateral knee pain, herniated discs, RLS, leg edema, anemia, hypothyroid. Hx Gout, UTIs, Cellulitis. Cataracts, Macular Degeneration. Diabetes is diet controlled. History of Any Multi-Drug Resistant Organisms: None Reported Past Surgical History: Bariatric Surgery, Heart Catheterization, Hernia Repair, Orthopedic Surgery Additional Past Surgical History / Comment(s): Total right knee replacement, abdominal hernia repair X3, left hip repair d/t fracture, gastric bypass with revision, colonoscopy. Past Anesthesia/Blood Transfusion Reactions: No Reported Reaction Past Psychological History: Anxiety, Bipolar, Depression, Panic Disorder, PTSD Additional Psychological History / Comment(s): Borderline personality disorder. Pt has a legal guardian, Taty Mosher. Hx attempted suicide with OD of Tramadol. Smoking Status: Never smoker Past Alcohol Use History: None Reported Past Drug Use History: None Reported - Past Family History Mother Family Medical History: Cancer Additional Family Medical History / Comment(s): Lung cancer. Father Family Medical History: Diabetes Mellitus, Deep Vein Thrombosis (DVT), Myocardial Infarction ([place]), Pulmonary Embolus Additional Family Medical History / Comment(s): "My dad from a blood clot that traveled from his leg to his lung and also caused a heart attack." Brother(s) Family Medical History: Diabetes Mellitus Sister(s) Additional Family Medical History / Comment(s): "Her heart races too fast." Medications and Allergies Home Medications Medication Instructions Recorded Confirmed Type Carvedilol [Coreg] 25 mg PO BID 06/07/17 12/09/20 History Montelukast [Singulair] 10 mg PO QAM 06/28/18 12/09/20 History DULoxetine HCL [Cymbalta] 60 mg PO QAM 08/15/18 12/09/20 History rOPINIRole HCL [Requip] 4 mg PO BID 11/18/18 12/09/20 History allopurinoL [Zyloprim] 100 mg PO DAILY 08/14/19 12/09/20 History Diclofenac Sodium [Voltaren Gel] 2 gram TOPICAL QID 04/03/20 12/09/20 History Potassium Chloride ER [K-Dur 10] 10 meq PO QAM 04/03/20 12/09/20 History QUEtiapine [SEROquel] 50 mg PO TID 05/12/20 12/09/20 History Meloxicam [Mobic] 7.5 mg PO QAM 06/21/20 12/09/20 History Mirabegron [Myrbetriq] 25 mg PO QAM 07/14/20 12/09/20 History Rivaroxaban [Xarelto] 10 mg PO DAILY 07/30/20 12/09/20 History Lovastatin [Mevacor] 10 mg PO HS 08/16/20 12/09/20 History lamoTRIgine [LaMICtal] 200 mg PO DAILY 08/16/20 12/09/20 History ALPRAZolam [Xanax] 0.5 mg PO BID 12/01/20 12/09/20 History Celecoxib [CeleBREX] 200 mg PO QAM 12/01/20 12/09/20 History Furosemide 100 mg PO DAILY 12/01/20 12/09/20 History Gabapentin [Neurontin] 600 mg PO TID 12/01/20 12/09/20 History Levothyroxine Sodium 125 mcg PO HS 12/01/20 12/09/20 History Aspirin 325 mg PO DAILY 12/09/20 12/09/20 History Ergocalciferol (Vitamin D2) 1 tab PO WEEKLY 12/09/20 12/09/20 History [Vitamin D2 (50,000 Iu)] Nystatin/Triamcin Cream [Mycolog 1 applic TOPICAL BID 12/09/20 12/09/20 History 100,000-0.1 Unit/gm-% Cream] traMADol HCL 50 mg PO Q6HR PRN 12/09/20 12/09/20 History Allergies Allergy/AdvReac Type Severity Reaction Status Date / Time buspirone [From BuSpar] Allergy Rash/Hives Verified 12/09/20 09:18 haloperidol [From Haldol] Allergy Swelling Verified 12/09/20 09:18 hydroxyzine [From Vistaril] Allergy Rash/Hives Verified 12/09/20 09:18 iodine Allergy Swelling Verified 12/09/20 09:18 Penicillins Allergy Swelling Verified 12/09/20 09:18 prochlorperazine Allergy Rash/Hives Verified 12/09/20 09:18 Sulfa (Sulfonamide Allergy Rash/Hives Verified 12/09/20 09:18 Antibiotics) Tetanus Vaccines and Toxoid Allergy Rash/Hives Verified 12/09/20 09:18 [Tetanus Vaccines & Toxoid] trifluoperazine HCl Allergy Unknown Verified 12/09/20 09:18 [From Stelazine] Surgical - Exam Vital Signs Temp Pulse Resp BP Pulse Ox 97.1 F L 70 16 136/63 96 12/09/20 09:30 12/09/20 09:30 12/09/20 09:30 12/09/20 09:30 12/09/20 09:30 - General well developed, well nourished, no distress - Eyes PERRL - ENT normal pinna - Neck no masses - Respiratory normal expansion - Cardiovascular Rhythm: regular - Abdomen Abdomen: soft, non tender Results - Labs Abnormal Lab Results - Last 24 Hours (Table) 12/09/20 Range/Units 09:25 POC Glucose (mg/dL) 111 H (75-99) mg/dL Assessment and Plan Assessment: Cholelithiasis. We'll perform laparoscopic cholecystectomy
--- NOTE | 2020-12-09 11:50 | P.OP ---
Date of Procedure: 12/09/20 Preoperative Diagnosis: Cholelithiasis Chronic cholecystitis Postoperative Diagnosis: Chronic cholecystitis Procedure(s) Performed: Laparoscopic cholecystectomy Anesthesia: DMITRIY Surgeon: Marlon Ge Estimated Blood Loss (ml): 10 Pathology: other (Gallbladder) Condition: stable Disposition: PACU Description of Procedure: The patient was placed on the operating table. The patient received a general endotracheal tube anesthesia. The patients abdomen was prepped and draped in the usual sterile fashion. Through an infraumbilical stab incision, the fascia of the anterior abdominal wall was grasped with a pair of Kochers and then the Veress needle was placed in the peritoneal cavity. Position of the Veress needle was confirmed with positive drop test. The abdomen was then insufflated. After adequate insufflation, the 10 mm trocar was placed in the peritoneal cavity. Following this the laparoscope was placed in the peritoneal cavity. The patient was placed in the head-up, right side up position and then a 5 mm trocar was placed in the right lateral and right subcostal position under direct visualization. A 8 mm trocar was placed in the epigastric position. The gallbladder was grasped in the fundus and infundibulum. Traction on the gallbladder was placed in the lateral and the cephalad positions. The triangle of Calot was visualized.. The cystic duct was bluntly dissected until the union of the cystic duct and common bile duct w as seen. A critical view of safety was achieved. The cystic duct was then divided and sealed with the Harmonic scissors. A PDS Endoloop was then placed throughout the cystic duct stump. The cystic artery divided and sealed with the Harmonic scissors. The gallbladder was then removed from the liver bed using Harmonic scissors. The gallbladder was then extracted through the epigastric port site. Operative field was checked for any bleeding spots and Harmonic scissors was used to coagulate the liver bed. The abdomen was irrigated. The trocars were removed. The skin was closed using interrupted 3-0 Vicryl suture. Dermabond dressing were applied. The patient tolerated the procedure well.
[2020-12-09 12:08] VITALS: TEMP 96.9
[2020-12-09 12:14] LABS: Glucose,Whole Blood 101 mg/dL (75-99)
[2020-12-09 12:16] VITALS: RESP 16
[2020-12-09] MEDS: HYDROmorphone 0.5 MG/0.5 ML SYRINGE IVP PRN ×2 (12:31→12:33)
[2020-12-09 14:40] VITALS: BP 136/87; PULSE 75
== END | disposition home or self-care (01) ==
LOC: OR 08:09
PROVIDERS: ATTEND Surgery
DX: K80.10 Calculus of gallbladder with chronic cholecystitis without obstruction (principal); I11.0 Hypertensive heart disease with heart failure; I50.9 Heart failure, unspecified; J44.9 Chronic obstructive pulmonary disease, unspecified; E11.9 Type 2 diabetes mellitus without complications; K21.9 Gastro-esophageal reflux disease without esophagitis; E78.5 Hyperlipidemia, unspecified; M19.90 Unspecified osteoarthritis, unspecified site; G89.29 Other chronic pain; M54.5 Low back pain; M25.562 Pain in left knee; M25.561 Pain in right knee; M51.9 Unspecified thoracic, thoracolumbar and lumbosacral intervertebral disc disorder; G25.81 Restless legs syndrome; R60.0 Localized edema; D64.9 Anemia, unspecified; E03.9 Hypothyroidism, unspecified; M10.9 Gout, unspecified; H26.9 Unspecified cataract; H35.30 Unspecified macular degeneration; F41.9 Anxiety disorder, unspecified; F31.9 Bipolar disorder, unspecified; F41.0 Panic disorder [episodic paroxysmal anxiety]; F43.10 Post-traumatic stress disorder, unspecified; F60.3 Borderline personality disorder; K08.89 Other specified disorders of teeth and supporting structures; E66.01 Morbid (severe) obesity due to excess calories; R94.31 Abnormal electrocardiogram [ECG] [EKG]; Z87.01 Personal history of pneumonia (recurrent); Z86.711 Personal history of pulmonary embolism; Z87.440 Personal history of urinary (tract) infections; Z87.2 Personal history of diseases of the skin and subcutaneous tissue; Z98.84 Bariatric surgery status; Z98.890 Other specified postprocedural states; Z96.651 Presence of right artificial knee joint; Z87.81 Personal history of (healed) traumatic fracture; Z91.5 Personal history of self-harm; Z79.899 Other long term (current) drug therapy; Z79.1 Long term (current) use of non-steroidal anti-inflammatories (NSAID); Z79.01 Long term (current) use of anticoagulants; Z79.890 Hormone replacement therapy; Z79.82 Long term (current) use of aspirin; Z79.891 Long term (current) use of opiate analgesic; Z88.8 Allergy status to other drugs, medicaments and biological substances; Z91.048 Other nonmedicinal substance allergy status; Z88.0 Allergy status to penicillin; Z88.2 Allergy status to sulfonamides; Z88.7 Allergy status to serum and vaccine; Z68.44 Body mass index [BMI] 60.0-69.9, adult; Z80.1 Family history of malignant neoplasm of trachea, bronchus and lung; Z83.3 Family history of diabetes mellitus; Z82.49 Family history of ischemic heart disease and other diseases of the circulatory system
CPT/HCPCS: 47562; 88304; J2250; J0330; J1100; J2710; J0690; J2405; J2001; J3010; J1885; J2370; J2704; J1170; J1644

== ENCOUNTER 2020-12-20 18:34 | Emergency (ER) | payer MEDICARE, OTHER ==
[2020-12-20 18:56] VITALS: TEMP 97.2
[2020-12-20 19:35] LABS: Basophils % (A) 1 %; Eosinophils # (A) 0.3 k/uL (0-0.7); Eosinophils % (A) 5 %; HCT 32.4 % (34.0-46.0); HGB 10.5 gm/dL (11.4-16.0); Hypochromasia Slight; Lymphocytes % (A) 17 %; MCHC 32.5 g/dL (31.0-37.0); MCV 89.1 fL (80.0-100.0); Mean Platelet Volume 7.4; Monocytes # (A) 0.4 k/uL (0-1.0); Monocytes % (A) 6 %; Neutrophils # (A) 3.9 k/uL (1.3-7.7); Neutrophils % (A) 68 %; Platelet Count 330 k/uL (150-450); RBC 3.63 m/uL (3.80-5.40); RDW 14.9 % (11.5-15.5); WBC 5.7 k/uL (3.8-10.6)
[2020-12-20] MEDS ORDERED: ONDANSETRON 4 MG/2 ML VIAL IVP STA (19:35)
[2020-12-20] MEDS ORDERED: MAG HYDROX/AL HYDROX/SIMETH 30 ML, HYOSCYAMINE ELIXIR 10 ML, LIDOCAINE VISCOUS 2% 10 ML PO STA ×3 (19:35)
--- NOTE | 2020-12-20 19:37 | ED ---
Chest Pain HPI - General Chief Complaint: Chest Pain Stated Complaint: Chest pain Time Seen by Provider: 12/20/20 19:09 Source: patient, EMS, RN notes reviewed Mode of arrival: EMS Limitations: no limitations - History of Present Illness Initial Comments: This a 60-year-old female presents emergency Department chief complaint of epigastric discomfort. Patient states this started after she ate a large meal today. Patient states she had her gallbladder removed on 12/09/2020. Patient denies any fevers or chills. Patient states that she is feeling she has some reflux, burning sensation. Patient denies any back pain, upper chest pain, shortness of breath headache or dizziness. Patient offers no other complaints at this time. - Related Data Home Medications Medication Instructions Recorded Confirmed Carvedilol [Coreg] 25 mg PO BID 06/07/17 12/09/20 Montelukast [Singulair] 10 mg PO QAM 06/28/18 12/09/20 DULoxetine HCL [Cymbalta] 60 mg PO QAM 08/15/18 12/09/20 rOPINIRole HCL [Requip] 4 mg PO BID 11/18/18 12/09/20 allopurinoL [Zyloprim] 100 mg PO DAILY 08/14/19 12/09/20 Diclofenac Sodium [Voltaren Gel] 2 gram TOPICAL QID 04/03/20 12/09/20 Potassium Chloride ER [K-Dur 10] 10 meq PO QAM 04/03/20 12/09/20 QUEtiapine [SEROquel] 50 mg PO TID 05/12/20 12/09/20 Meloxicam [Mobic] 7.5 mg PO QAM 06/21/20 12/09/20 Mirabegron [Myrbetriq] 25 mg PO QAM 07/14/20 12/09/20 Rivaroxaban [Xarelto] 10 mg PO DAILY 07/30/20 12/09/20 Lovastatin [Mevacor] 10 mg PO HS 08/16/20 12/09/20 lamoTRIgine [LaMICtal] 200 mg PO DAILY 08/16/20 12/09/20 ALPRAZolam [Xanax] 0.5 mg PO BID 12/01/20 12/09/20 Celecoxib [CeleBREX] 200 mg PO QAM 12/01/20 12/09/20 Furosemide 100 mg PO DAILY 12/01/20 12/09/20 Gabapentin [Neurontin] 600 mg PO TID 12/01/20 12/09/20 Levothyroxine Sodium 125 mcg PO HS 12/01/20 12/09/20 Aspirin 325 mg PO DAILY 12/09/20 12/09/20 Ergocalciferol (Vitamin D2) 1 tab PO WEEKLY 12/09/20 12/09/20 [Vitamin D2 (50,000 Iu)] Nystatin/Triamcin Cream [Mycolog 1 applic TOPICAL BID 12/09/20 12/09/20 100,000-0.1 Unit/gm-% Cream] traMADol HCL 50 mg PO Q6HR PRN 12/09/20 12/09/20 Previous Rx's Medication Instructions Recorded Acetaminophen Tab [Tylenol] 650 mg PO Q6H #30 tab 12/09/20 Docusate [Colace] 100 mg PO BID #20 capsule 12/09/20 Ibuprofen [Motrin] 600 mg PO Q6HR PRN #40 tab 12/09/20 oxyCODONE HCL [OxyIR] 5 mg PO Q6H PRN 3 Days #10 tab 12/09/20 Omeprazole [PriLOSEC] 40 mg PO DAILY #14 cap 12/20/20 Allergies Allergy/AdvReac Type Severity Reaction Status Date / Time buspirone [From BuSpar] Allergy Rash/Hives Verified 12/09/20 09:18 haloperidol [From Haldol] Allergy Swelling Verified 12/09/20 09:18 hydroxyzine [From Vistaril] Allergy Rash/Hives Verified 12/09/20 09:18 iodine Allergy Swelling Verified 12/09/20 09:18 Penicillins Allergy Swelling Verified 12/09/20 09:18 prochlorperazine Allergy Rash/Hives Verified 12/09/20 09:18 Sulfa (Sulfonamide Allergy Rash/Hives Verified 12/09/20 09:18 Antibiotics) Tetanus Vaccines and Toxoid Allergy Rash/Hives Verified 12/09/20 09:18 [Tetanus Vaccines & Toxoid] trifluoperazine HCl Allergy Unknown Verified 12/09/20 09:18 [From Stelazine] Review of Systems ROS Statement: Those systems with pertinent positive or pertinent negative responses have been documented in the HPI. ROS Other: All systems not noted in ROS Statement are negative. EKG Findings - EKG Comments: EKG Findings:: EKG performed at 19:08 normal sinus rhythm rate of 89 MO 150 QRS 96 QT/QTC 392/476 Past Medical History Past Medical History: Asthma, Heart Failure, COPD, Diabetes Mellitus, GERD/Reflux, Hyperlipidemia, Hypertension, Musculoskeletal Disorder, Osteoarthritis (OA), Pneumonia, Pulmonary Embolus ([place]), Thyroid Disorder Additional Past Medical History / Comment(s): Chronic low back and bilateral knee pain, herniated discs, RLS, leg edema, anemia, hypothyroid. Hx Gout, UTIs, Cellulitis. Cataracts, Macular Degeneration. Diabetes is diet controlled. History of Any Multi-Drug Resistant Organisms: None Reported Past Surgical History: Bariatric Surgery, Heart Catheterization, Hernia Repair, Orthopedic Surgery Additional Past Surgical History / Comment(s): Total right knee replacement, abdominal hernia repair X3, left hip repair d/t fracture, gastric bypass with revision, colonoscopy. Past Anesthesia/Blood Transfusion Reactions: No Reported Reaction Past Psychological History: Anxiety, Bipolar, Depression, Panic Disorder, PTSD Smoking Status: Never smoker Past Alcohol Use History: None Reported Past Drug Use History: None Reported - Past Family History Mother Family Medical History: Cancer Additional Family Medical History / Comment(s): Lung cancer. Father Family Medical History: Diabetes Mellitus, Deep Vein Thrombosis (DVT), Myocardial Infarction ([place]), Pulmonary Embolus Additional Family Medical History / Comment(s): "My dad from a blood clot that traveled from his leg to his lung and also caused a heart attack." Brother(s) Family Medical History: Diabetes Mellitus Sister(s) Additional Family Medical History / Comment(s): "Her heart races too fast." General Exam Limitations: no limitations General appearance: alert, in no apparent distress, obese Head exam: Present: atraumatic, normocephalic, normal inspection Eye exam: Present: normal appearance, PERRL, EOMI. Absent: scleral icterus, conjunctival injection, periorbital swelling Neck exam: Present: normal inspection, full ROM Respiratory exam: Present: normal lung sounds bilaterally. Absent: respiratory distress, wheezes, rales, rhonchi, stridor Cardiovascular Exam: Present: regular rate, normal rhythm, normal heart sounds. Absent: systolic murmur, diastolic murmur, rubs, gallop, clicks GI/Abdominal exam: Present: soft, tenderness (Mild epigastric tenderness), normal bowel sounds. Absent: distended, guarding, rebound, rigid Back exam: Absent: CVA tenderness (R), CVA tenderness (L) Neurological exam: Present: alert, oriented X3 Skin exam: Present: warm, dry, intact, normal color. Absent: rash Course Vital Signs 12/20/20 12/20/20 18:52 19:56 Temperature 97.2 F L Pulse Rate 87 86 Respiratory 18 16 Rate Blood Pressure 146/83 115/78 O2 Sat by Pulse 97 95 Oximetry Chest Pain MDM - MDM 60-year-old female presented for epigastric discomfort. Symptoms resolved with GI cocktail. Symptoms are consistent with reflux as she's been having increased symptoms after her cholecystectomy. Patient we discharged in stable condition). Disposition Clinical Impression: GERD (gastroesophageal reflux disease) Disposition: HOME SELF-CARE Condition: Stable Instructions (If sedation given, give patient instructions): Diet for Stomach Ulcers and Gastritis (ED), Gastroesophageal Reflux Disease (ED) Additional Instructions: Please return to the Emergency Department if symptoms worsen or any other concerns. Prescriptions: Omeprazole [PriLOSEC] 40 mg PO DAILY #14 cap Is patient prescribed a controlled substance at d/c from ED?: No Referrals: Beau Jade MD [Primary Care Provider] - 1-2 days Time of Disposition: 20:42
[2020-12-20 19:45] LABS: INR 0.9 (<1.2); Partial Thromboplastin Time 26.2 sec (22.0-30.0)
[2020-12-20 19:52] LABS: Calcium 9.3 mg/dL (8.4-10.2); Magnesium 2.2 mg/dL (1.6-2.3); Total Bilirubin 0.5 mg/dL (0.2-1.3); Total Protein 6.8 g/dL (6.3-8.2)
[2020-12-20 19:53] LABS: Potassium 4.4 mmol/L (3.5-5.1)
--- NOTE | 2020-12-20 20:16 | XR ---
EXAMINATION TYPE: XR chest 2V DATE OF EXAM: 12/20/2020 COMPARISON: 08/16/2020 HISTORY: Shortness of breath TECHNIQUE: Frontal and lateral views of the chest are obtained. FINDINGS: Scattered senescent parenchymal changes noted. Hyperinflation compatible with COPD. Patchy density right medial lung base may reflect underlying pneumonia although the appearance is rel atively stable compared to prior study. Heart size is stable. Mediastinal structures are stable and grossly unremarkable. No evidence for hilar prominence. Degenerative changes dorsal spine. IMPRESSION: 1. Patchy density right medial lung base may reflect underlying pneumonia although the appearance is relatively stable compared to prior study.
[2020-12-20 20:39] VITALS: RESP 16
[2020-12-20] MEDS ORDERED: PANTOPRAZOLE 40 MG/10 ML VIAL IVP STA (20:41)
[2020-12-20 21:30] VITALS: BP 126/75; PULSE 88
== END 2020-12-20 21:20 | disposition home or self-care (01) ==
LOC: EC 18:34
DX: K21.9 Gastro-esophageal reflux disease without esophagitis (principal); I11.0 Hypertensive heart disease with heart failure; I50.9 Heart failure, unspecified; J44.9 Chronic obstructive pulmonary disease, unspecified; E11.9 Type 2 diabetes mellitus without complications; E78.5 Hyperlipidemia, unspecified; E07.9 Disorder of thyroid, unspecified; F41.0 Panic disorder [episodic paroxysmal anxiety]; M19.90 Unspecified osteoarthritis, unspecified site; F31.9 Bipolar disorder, unspecified; Z79.02 Long term (current) use of antithrombotics/antiplatelets; Z79.51 Long term (current) use of inhaled steroids; Z79.899 Other long term (current) drug therapy; Z79.01 Long term (current) use of anticoagulants; Z88.8 Allergy status to other drugs, medicaments and biological substances; Z88.0 Allergy status to penicillin; Z91.048 Other nonmedicinal substance allergy status; Z88.2 Allergy status to sulfonamides; Z88.7 Allergy status to serum and vaccine; Z98.84 Bariatric surgery status; Z96.651 Presence of right artificial knee joint; Z86.718 Personal history of other venous thrombosis and embolism
CPT/HCPCS: 36415; 93005; 80053; 83735; 84484; 85025; 85610; 85730; 71046; 99285; 96374; 96375; J2405; C9113

== ENCOUNTER 2021-01-20 14:18 | Emergency (ER) | payer MEDICARE, OTHER ==
[2021-01-20 14:43] VITALS: BP 148/71; PULSE 82; RESP 18; TEMP 97.1
--- NOTE | 2021-01-20 15:05 | ED ---
General Adult HPI - General Chief complaint: Psychiatric Symptoms Stated complaint: Petitioned/suicidal Time Seen by Provider: 01/20/21 14:22 Source: patient, RN notes reviewed, old records reviewed Mode of arrival: ambulatory Limitations: no limitations - History of Present Illness Initial comments: 60-year-old female with suicide attempt, threatening suicide. Patient was brought in by police and EMS. She had apparently held a knife to arm threatening to kill herself. She states she was frustrated with her living situation. She denies any ingestion. She has been eating and drinking. No medication overdose. - Related Data Home Medications Medication Instructions Recorded Confirmed Carvedilol [Coreg] 25 mg PO BID@0700,199906/07/17 01/20/21 Montelukast [Singulair] 10 mg PO DAILY@69906/28/18 01/20/21 DULoxetine HCL [Cymbalta] 60 mg PO BID@07,199908/15/18 01/20/21 rOPINIRole HCL [Requip] 4 mg PO BID@07,199911/18/18 01/20/21 allopurinoL [Zyloprim] 100 mg PO DAILY@0708/14/19 01/20/21 Diclofenac Sodium [Voltaren Gel] 2 gram TOPICAL QID@,04/03/20 01/20/21 Potassium Chloride ER [K-Dur 10] 10 meq PO DAILY@69904/03/20 01/20/21 Meloxicam [Mobic] 7.5 mg PO DAILY@69906/21/20 01/20/21 Mirabegron [Myrbetriq] 25 mg PO DAILY@0700 07/14/20 01/20/21 Rivaroxaban [Xarelto] 10 mg PO DAILY@69907/30/20 01/20/21 Lovastatin [Mevacor] 10 mg PO HS@199908/16/20 01/20/21 lamoTRIgine [LaMICtal] 200 mg PO DAILY@69908/16/20 01/20/21 ALPRAZolam [Xanax] 0.5 mg PO BID@07,199912/01/20 01/20/21 Celecoxib [CeleBREX] 200 mg PO DAILY@69912/01/20 01/20/21 Gabapentin [Neurontin] 600 mg PO TID@0700,1700,199912/01/20 01/20/21 Levothyroxine Sodium 125 mcg PO DAILY@0630 12/01/20 01/20/21 Ergocalciferol (Vitamin D2) 1,250 mcg PO MO 12/09/20 01/20/21 [Vitamin D2 (50,000 Iu)] Nystatin/Triamcin Cream [Mycolog 1 applic TOPICAL BID@07,199912/09/20 01/20/21 100,000-0.1 Unit/gm-% Cream] traMADol HCL 50 mg PO Q6H PRN 12/09/20 01/20/21 Albuterol Sulfate [Ventolin HFA] 2 puff INHALATION RT-Q6H PRN 01/20/21 01/20/21 Aspirin EC [Ecotrin] 325 mg PO DAILY@0701/20/21 01/20/21 Clotrimazole/Betamethasone Dip 1 applic TOPICAL BID@07,199901/20/21 01/20/21 [Lotrisone Cream] Docusate [Colace] 100 mg PO BID@07,199901/20/21 01/20/21 Ibuprofen [Motrin] 600 mg PO Q6H PRN 01/20/21 01/20/21 Omeprazole [PriLOSEC] 40 mg PO DAILY@0701/20/21 01/20/21 Torsemide [Demadex] 50 mg PO SUTUTHSA@0700 01/20/21 01/20/21 Torsemide [Demadex] 100 mg PO MOWEFR@0701/20/21 01/20/21 ondansetron HCL [Zofran] 8 mg PO Q6H PRN 01/20/21 01/20/21 Allergies Allergy/AdvReac Type Severity Reaction Status Date / Time buspirone [From BuSpar] Allergy Rash/Hives Verified 01/20/21 17:20 haloperidol [From Haldol] Allergy Swelling Verified 01/20/21 17:20 hydroxyzine [From Vistaril] Allergy Rash/Hives Verified 01/20/21 17:20 iodine Allergy Swelling Verified 01/20/21 17:20 Penicillins Allergy Swelling Verified 01/20/21 17:20 prochlorperazine Allergy Rash/Hives Verified 01/20/21 17:20 Sulfa (Sulfonamide Allergy Rash/Hives Verified 01/20/21 17:20 Antibiotics) Tetanus Vaccines and Toxoid Allergy Rash/Hives Verified 01/20/21 17:20 [Tetanus Vaccines & Toxoid] trifluoperazine HCl Allergy Unknown Verified 01/20/21 17:20 [From Stelazine] Review of Systems ROS Statement: Those systems with pertinent positive or pertinent negative responses have been documented in the HPI. ROS Other: All systems not noted in ROS Statement are negative. Past Medical History Past Medical History: Asthma, Heart Failure, COPD, Diabetes Mellitus, GERD/Reflux, Hyperlipidemia, Hypertension, Musculoskeletal Disorder, Osteoarthritis (OA), Pneumonia, Pulmonary Embolus ([place]), Thyroid Disorder Additional Past Medical History / Comment(s): Chronic low back and bilateral knee pain, herniated discs, RLS, leg edema, anemia, hypothyroid. Hx Gout, UTIs, Cellulitis. Cataracts, Macular Degeneration. Diabetes is diet controlled. History of Any Multi-Drug Resistant Organisms: None Reported Past Surgical History: Bariatric Surgery, Heart Catheterization, Hernia Repair, Orthopedic Surgery Additional Past Surgical History / Comment(s): Total right knee replacement, abdominal hernia repair X3, left hip repair d/t fracture, gastric bypass with revision, colonoscopy. Past Anesthesia/Blood Transfusion Reactions: No Reported Reaction Past Psychological History: Anxiety, Bipolar, Depression, Panic Disorder, PTSD Smoking Status: Never smoker Past Alcohol Use History: None Reported Past Drug Use History: None Reported - Past Family History Mother Family Medical History: Cancer Additional Family Medical History / Comment(s): Lung cancer. Father Family Medical History: Diabetes Mellitus, Deep Vein Thrombosis (DVT), Myocardial Infarction ([place]), Pulmonary Embolus Additional Family Medical History / Comment(s): "My dad from a blood clot that traveled from his leg to his lung and also caused a heart attack." Brother(s) Family Medical History: Diabetes Mellitus Sister(s) Additional Family Medical History / Comment(s): "Her heart races too fast." General Exam Limitations: no limitations General appearance: alert, in no apparent distress Head exam: Present: atraumatic, normocephalic Eye exam: Present: normal appearance, PERRL ENT exam: Present: normal exam Neck exam: Present: normal inspection. Absent: tenderness, meningismus Respiratory exam: Present: normal lung sounds bilaterally. Absent: respiratory distress, wheezes Cardiovascular Exam: Present: regular rate, normal rhythm GI/Abdominal exam: Present: soft. Absent: distended, tenderness Extremities exam: Present: normal inspection, normal capillary refill. Absent: pedal edema, calf tenderness Neurological exam: Present: alert, oriented X3, CN II-XII intact. Absent: motor sensory deficit Psychiatric exam: Present: depressed, flat affect, suicidal ideation Skin exam: Present: warm, dry, intact. Absent: cyanosis, diaphoretic Course Vital Signs 01/20/21 14:40 Temperature 97.1 F L Pulse Rate 82 Respiratory 18 Rate Blood Pressure 148/71 O2 Sat by Pulse 98 Oximetry - Reevaluation(s) Reevaluation #1: 01/20/21 15:05 Patient cleared for EPS Medical Decision Making - Medical Decision Making Patient had been medically cleared, was evaluated by EPS. Norco to be safe for discharge. She is returning to the [facility] where she resides. Disposition Clinical Impression: Depression, Suicidal ideation Disposition: HOME SELF-CARE Condition: Fair Instructions (If sedation given, give patient instructions): Depression (ED) Is patient prescribed a controlled substance at d/c from ED?: No Referrals: Beau Jade MD [Primary Care Provider] - 1-2 days Time of Disposition: 19:03
== END 2021-01-20 19:28 | disposition home or self-care (01) ==
LOC: EC 14:18
DX: R45.851 Suicidal ideations (principal); F32.9 Major depressive disorder, single episode, unspecified; E11.36 Type 2 diabetes mellitus with diabetic cataract; I11.0 Hypertensive heart disease with heart failure; I50.9 Heart failure, unspecified; J44.9 Chronic obstructive pulmonary disease, unspecified; K21.9 Gastro-esophageal reflux disease without esophagitis; M10.9 Gout, unspecified; E03.9 Hypothyroidism, unspecified; E78.5 Hyperlipidemia, unspecified; G25.81 Restless legs syndrome; M19.90 Unspecified osteoarthritis, unspecified site; Z65.3 Problems related to other legal circumstances; Z79.1 Long term (current) use of non-steroidal anti-inflammatories (NSAID); Z79.82 Long term (current) use of aspirin; Z79.899 Other long term (current) drug therapy; Z80.1 Family history of malignant neoplasm of trachea, bronchus and lung; Z82.49 Family history of ischemic heart disease and other diseases of the circulatory system; Z83.3 Family history of diabetes mellitus; Z86.711 Personal history of pulmonary embolism; Z88.0 Allergy status to penicillin; Z88.2 Allergy status to sulfonamides; Z88.8 Allergy status to other drugs, medicaments and biological substances; Z98.84 Bariatric surgery status
CPT/HCPCS: 82075; 99284

== ENCOUNTER 2021-03-21 12:54 | Emergency (ER) | payer MEDICARE, OTHER ==
[2021-03-21 13:21] VITALS: TEMP 97.9
[2021-03-21] MEDS ORDERED: KETOROLAC 15 MG/ML 1 ML VIAL IM STA (15:05)
--- NOTE | 2021-03-21 15:47 | XR ---
EXAMINATION TYPE: XR Hip Bilateral Complete, XR femur bilateral DATE OF EXAM: 03/21/2021 CLINICAL HISTORY: Fell out of bed 2 weeks ago now with bilateral hip pain TECHNIQUE: AP and frogleg views of the bilateral hips and femurs are obtained. COMPARISON: None. FINDINGS: Left hip hardware is present. There are mild degenerative changes of the right hip. Degener ative changes are seen in the left knee. Soft tissue calcifications are noted throughout. There is a right knee replacement which is incompletely included. IMPRESSION: There is no acute fracture or dislocation in the bilateral hips and femurs. Chronic salas ges, as described.
--- NOTE | 2021-03-21 15:51 | ED ---
Extremity Problem HPI - General Chief complaint: Extremity Problem,Nontraumatic Stated complaint: Pain all over Time Seen by Provider: 03/21/21 14:36 Source: patient, RN notes reviewed Mode of arrival: ambulatory Limitations: no limitations - History of Present Illness Initial comments: Patient is a 61-year-old female who is morbidly obese that comes in complaining of bilateral hip and lower extremity pain. She notes that she is tender to the touch over the lateral aspect of the right and left hip. She did have good pulses bilaterally her lower extremities. Patient denied any other issues or complaints that she noted her pain was approximately an 8 out of 10 with no relief from at home medications. Patient denied any chest pain shortness of breath headache nausea vomiting diarrhea constipation fever fatigue chills unilateral lower extremity edema. - Related Data Home Medications Medication Instructions Recorded Confirmed Carvedilol [Coreg] 25 mg PO BID@699,199906/07/17 01/20/21 Montelukast [Singulair] 10 mg PO DAILY@69906/28/18 01/20/21 DULoxetine HCL [Cymbalta] 60 mg PO BID@08/15/18 01/20/21 rOPINIRole HCL [Requip] 4 mg PO BID@699,199911/18/18 01/20/21 allopurinoL [Zyloprim] 100 mg PO DAILY@69908/14/19 01/20/21 Diclofenac Sodium [Voltaren Gel] 2 gram TOPICAL QID@,,,04/03/20 01/20/21 Potassium Chloride ER [K-Dur 10] 10 meq PO DAILY@69904/03/20 01/20/21 Meloxicam [Mobic] 7.5 mg PO DAILY@69906/21/20 01/20/21 Mirabegron [Myrbetriq] 25 mg PO DAILY@69907/14/20 01/20/21 Rivaroxaban [Xarelto] 10 mg PO DAILY@69907/30/20 01/20/21 Lovastatin [Mevacor] 10 mg PO HS@199908/16/20 01/20/21 lamoTRIgine [LaMICtal] 200 mg PO DAILY@69908/16/20 01/20/21 ALPRAZolam [Xanax] 0.5 mg PO BID@699,199912/01/20 01/20/21 Celecoxib [CeleBREX] 200 mg PO DAILY@0712/01/20 01/20/21 Gabapentin [Neurontin] 600 mg PO TID@0700,170,199912/01/20 01/20/21 Levothyroxine Sodium 125 mcg PO DAILY@0630 12/01/20 01/20/21 Ergocalciferol (Vitamin D2) 1,250 mcg PO MO 12/09/20 01/20/21 [Vitamin D2 (50,000 Iu)] Nystatin/Triamcin Cream [Mycolog 1 applic TOPICAL BID@699,199912/09/20 01/20/21 100,000-0.1 Unit/gm-% Cream] traMADol HCL 50 mg PO Q6H PRN 12/09/20 01/20/21 Albuterol Sulfate [Ventolin HFA] 2 puff INHALATION RT-Q6H PRN 01/20/21 01/20/21 Aspirin EC [Ecotrin] 325 mg PO DAILY@69901/20/21 01/20/21 Clotrimazole/Betamethasone Dip 1 applic TOPICAL BID@699,199901/20/21 01/20/21 [Lotrisone Cream] Docusate [Colace] 100 mg PO BID@699,199901/20/21 01/20/21 Ibuprofen [Motrin] 600 mg PO Q6H PRN 01/20/21 01/20/21 Omeprazole [PriLOSEC] 40 mg PO DAILY@69901/20/21 01/20/21 Torsemide [Demadex] 50 mg PO SUTUTHSA@69901/20/21 01/20/21 Torsemide [Demadex] 100 mg PO MOWEFR@69901/20/21 01/20/21 ondansetron HCL [Zofran] 8 mg PO Q6H PRN 01/20/21 01/20/21 Allergies Allergy/AdvReac Type Severity Reaction Status Date / Time buspirone [From BuSpar] Allergy Rash/Hives Verified 03/21/21 13:20 haloperidol [From Haldol] Allergy Swelling Verified 03/21/21 13:20 hydroxyzine [From Vistaril] Allergy Rash/Hives Verified 03/21/21 13:20 iodine Allergy Swelling Verified 03/21/21 13:20 Penicillins Allergy Swelling Verified 03/21/21 13:20 prochlorperazine Allergy Rash/Hives Verified 03/21/21 13:20 Sulfa (Sulfonamide Allergy Rash/Hives Verified 03/21/21 13:20 Antibiotics) Tetanus Vaccines and Toxoid Allergy Rash/Hives Verified 03/21/21 13:20 [Tetanus Vaccines & Toxoid] trifluoperazine HCl Allergy Unknown Verified 03/21/21 13:20 [From Stelazine] Review of Systems ROS Statement: Those systems with pertinent positive or pertinent negative responses have been documented in the HPI. ROS Other: All systems not noted in ROS Statement are negative. Past Medical History Past Medical History: Asthma, Heart Failure, COPD, Diabetes Mellitus, GERD/Reflux, Hyperlipidemia, Hypertension, Musculoskeletal Disorder, Osteoarthritis (OA), Pneumonia, Pulmonary Embolus (PE), Thyroid Disorder Additional Past Medical History / Comment(s): Chronic low back and bilateral knee pain, herniated discs, RLS, leg edema, anemia, hypothyroid. Hx Gout, UTIs, Cellulitis. Cataracts, Macular Degeneration. Diabetes is diet controlled. History of Any Multi-Drug Resistant Organisms: None Reported Past Surgical History: Bariatric Surgery, Heart Catheterization, Hernia Repair, Orthopedic Surgery Additional Past Surgical History / Comment(s): Total right knee replacement, abdominal hernia repair X3, left hip repair d/t fracture, gastric bypass with revision, colonoscopy. Past Anesthesia/Blood Transfusion Reactions: No Reported Reaction Past Psychological History: Anxiety, Bipolar, Depression, Panic Disorder, PTSD Smoking Status: Never smoker Past Alcohol Use History: None Reported Past Drug Use History: None Reported - Past Family History Mother Family Medical History: Cancer Additional Family Medical History / Comment(s): Lung cancer. Father Family Medical History: Diabetes Mellitus, Deep Vein Thrombosis (DVT), Myocardial Infarction ([place]), Pulmonary Embolus Additional Family Medical History / Comment(s): "My dad from a blood clot that traveled from his leg to his lung and also caused a heart attack." Brother(s) Family Medical History: Diabetes Mellitus Sister(s) Additional Family Medical History / Comment(s): "Her heart races too fast." General Exam Limitations: no limitations General appearance: alert, in no apparent distress, obese (Morbidly) Head exam: Present: atraumatic, normocephalic, normal inspection Eye exam: Present: normal appearance, PERRL, EOMI. Absent: scleral icterus, conjunctival injection, periorbital swelling Neck exam: Present: normal inspection Respiratory exam: Present: normal lung sounds bilaterally. Absent: respiratory distress, wheezes, rales, rhonchi, stridor Cardiovascular Exam: Present: regular rate, normal rhythm, normal heart sounds. Absent: systolic murmur, diastolic murmur, rubs, gallop, clicks GI/Abdominal exam: Present: soft, normal bowel sounds. Absent: distended, tenderness, guarding, rebound, rigid Extremities exam: Present: normal inspection, full ROM, normal capillary refill, other (Tenderness over bilateral hips.). Absent: tenderness, pedal edema, joint swelling, calf tenderness Neurological exam: Present: alert, oriented X3 Psychiatric exam: Present: normal affect, normal mood Skin exam: Present: warm, dry, intact, normal color. Absent: rash Course Vital Signs 03/21/21 03/21/21 13:16 15:45 Temperature 97.9 F 97.9 F Pulse Rate 95 77 Respiratory 22 18 Rate Blood Pressure 152/84 147/75 O2 Sat by Pulse 95 96 Oximetry Medical Decision Making - Medical Decision Making 61-year-old female presenting with bilateral hip tenderness. X-ray of the bilateral hips and femurs, 4 mg of morphine ordered. X-rays negative for any acute osseous abnormalities. Case discussed with Dr. Murillo, patient discharge home in stable condition with follow-up to pain management and primary care. Disposition Clinical Impression: Bilateral hip pain Disposition: HOME SELF-CARE Condition: Stable Instructions (If sedation given, give patient instructions): Hip Pain (ED) Additional Instructions: Please return to the Emergency Department if symptoms worsen or any other concerns. Follow-up primary care as needed. Follow-up with pain management as planned. Take Tylenol and Motrin as needed for pain. Is patient prescribed a controlled substance at d/c from ED?: No Referrals: Beau Jade MD [Primary Care Provider] - 1-2 days Time of Disposition: 16:06
[2021-03-21 15:54] VITALS: BP 147/75; PULSE 77; RESP 18
[2021-03-21] MEDS ORDERED: ACET/COD 300 MG/30 MG STARTER PACK 6 TAB BTL PO STA (16:05)
== END 2021-03-21 16:26 | disposition home or self-care (01) ==
LOC: EC 12:54
DX: M25.552 Pain in left hip (principal); M25.551 Pain in right hip; I11.0 Hypertensive heart disease with heart failure; I50.9 Heart failure, unspecified; E66.01 Morbid (severe) obesity due to excess calories; E03.9 Hypothyroidism, unspecified; J44.9 Chronic obstructive pulmonary disease, unspecified; K21.9 Gastro-esophageal reflux disease without esophagitis; E78.5 Hyperlipidemia, unspecified; E11.36 Type 2 diabetes mellitus with diabetic cataract; G25.81 Restless legs syndrome; F31.9 Bipolar disorder, unspecified; F41.9 Anxiety disorder, unspecified; M10.9 Gout, unspecified; M19.90 Unspecified osteoarthritis, unspecified site; Z86.711 Personal history of pulmonary embolism; Z87.440 Personal history of urinary (tract) infections; Z79.1 Long term (current) use of non-steroidal anti-inflammatories (NSAID); Z79.82 Long term (current) use of aspirin; Z79.51 Long term (current) use of inhaled steroids; Z79.890 Hormone replacement therapy; Z79.899 Other long term (current) drug therapy; Z88.0 Allergy status to penicillin; Z88.2 Allergy status to sulfonamides; Z88.8 Allergy status to other drugs, medicaments and biological substances; Z98.84 Bariatric surgery status; Z68.44 Body mass index [BMI] 60.0-69.9, adult
CPT/HCPCS: 73521; 73552; 99283; 96372; J1885

== ENCOUNTER 2021-04-01 14:38 | Emergency (ER) | payer MEDICARE, OTHER ==
[2021-04-01 14:48] VITALS: BP 124/74; PULSE 87; RESP 20; TEMP 97.6
[2021-04-01] MEDS: HYDROmorphone 1 MG/ML 1 ML SYRINGE IM STA (15:03)
--- NOTE | 2021-04-01 15:45 | XR ---
EXAMINATION TYPE: XR knee complete LT DATE OF EXAM: 04/01/2021 COMPARISON: 08/16/2020 HISTORY: Pain. Fall. TECHNIQUE: 3 views FINDINGS: There is severe narrowing of the lateral joint space. There is genu valgus deformity. I see no fracture nor dislocation. There is narrowing and spurring at the patellofemoral joint. IMPRESSION: Moderately severe osteoarthritis in the lateral joint space. No change compared to old ex am. No fracture.
--- NOTE | 2021-04-01 15:58 | ED ---
Lower Extremity Injury HPI - General Stated Complaint: Knee pain Time Seen by Provider: 04/01/21 14:41 Source: patient, EMS, RN notes reviewed Mode of arrival: EMS Limitations: no limitations - History of Present Illness Initial Comments: Is a 61-year-old female presents emergency Department chief complaint of left knee pain. Patient states she twists her knee today. She is waiting surgery for left knee when she has not weight loss. No other injuries noted today no head injury no loss conscious. - Related Data Home Medications Medication Instructions Recorded Confirmed Carvedilol [Coreg] 25 mg PO BID@0700,199906/07/17 01/20/21 Montelukast [Singulair] 10 mg PO DAILY@69906/28/18 01/20/21 DULoxetine HCL [Cymbalta] 60 mg PO BID@07,199908/15/18 01/20/21 rOPINIRole HCL [Requip] 4 mg PO BID@07,199911/18/18 01/20/21 allopurinoL [Zyloprim] 100 mg PO DAILY@0708/14/19 01/20/21 Diclofenac Sodium [Voltaren Gel] 2 gram TOPICAL QID@,,,04/03/20 01/20/21 Potassium Chloride ER [K-Dur 10] 10 meq PO DAILY@0700 04/03/20 01/20/21 Meloxicam [Mobic] 7.5 mg PO DAILY@0706/21/20 01/20/21 Mirabegron [Myrbetriq] 25 mg PO DAILY@0700 07/14/20 01/20/21 Rivaroxaban [Xarelto] 10 mg PO DAILY@69907/30/20 01/20/21 Lovastatin [Mevacor] 10 mg PO HS@199908/16/20 01/20/21 lamoTRIgine [LaMICtal] 200 mg PO DAILY@69908/16/20 01/20/21 ALPRAZolam [Xanax] 0.5 mg PO BID@07,199912/01/20 01/20/21 Celecoxib [CeleBREX] 200 mg PO DAILY@0700 12/01/20 01/20/21 Gabapentin [Neurontin] 600 mg PO TID@0700,170,199912/01/20 01/20/21 Levothyroxine Sodium 125 mcg PO DAILY@0630 12/01/20 01/20/21 Ergocalciferol (Vitamin D2) 1,250 mcg PO MO 12/09/20 01/20/21 [Vitamin D2 (50,000 Iu)] Nystatin/Triamcin Cream [Mycolog 1 applic TOPICAL BID@699,199912/09/20 01/20/21 100,000-0.1 Unit/gm-% Cream] traMADol HCL 50 mg PO Q6H PRN 12/09/20 01/20/21 Albuterol Sulfate [Ventolin HFA] 2 puff INHALATION RT-Q6H PRN 01/20/21 01/20/21 Aspirin EC [Ecotrin] 325 mg PO DAILY@69901/20/21 01/20/21 Clotrimazole/Betamethasone Dip 1 applic TOPICAL BID@699,199901/20/21 01/20/21 [Lotrisone Cream] Docusate [Colace] 100 mg PO BID@699,199901/20/21 01/20/21 Ibuprofen [Motrin] 600 mg PO Q6H PRN 01/20/21 01/20/21 Omeprazole [PriLOSEC] 40 mg PO DAILY@69901/20/21 01/20/21 Torsemide [Demadex] 50 mg PO SUTUTHSA@69901/20/21 01/20/21 Torsemide [Demadex] 100 mg PO MOWEFR@69901/20/21 01/20/21 ondansetron HCL [Zofran] 8 mg PO Q6H PRN 01/20/21 01/20/21 Allergies Allergy/AdvReac Type Severity Reaction Status Date / Time buspirone [From BuSpar] Allergy Rash/Hives Verified 03/21/21 13:20 haloperidol [From Haldol] Allergy Swelling Verified 03/21/21 13:20 hydroxyzine [From Vistaril] Allergy Rash/Hives Verified 03/21/21 13:20 iodine Allergy Swelling Verified 03/21/21 13:20 Penicillins Allergy Swelling Verified 03/21/21 13:20 prochlorperazine Allergy Rash/Hives Verified 03/21/21 13:20 Sulfa (Sulfonamide Allergy Rash/Hives Verified 03/21/21 13:20 Antibiotics) Tetanus Vaccines and Toxoid Allergy Rash/Hives Verified 03/21/21 13:20 [Tetanus Vaccines & Toxoid] trifluoperazine HCl Allergy Unknown Verified 03/21/21 13:20 [From Stelazine] Review of Systems ROS Statement: Those systems with pertinent positive or pertinent negative responses have been documented in the HPI. ROS Other: All systems not noted in ROS Statement are negative. Past Medical History Past Medical History: Asthma, Heart Failure, COPD, Diabetes Mellitus, GERD/Reflux, Hyperlipidemia, Hypertension, Musculoskeletal Disorder, Osteoarthri tis (OA), Pneumonia, Pulmonary Embolus (PE), Thyroid Disorder Additional Past Medical History / Comment(s): Chronic low back and bilateral knee pain, herniated discs, RLS, leg edema, anemia, hypothyroid. Hx Gout, UTIs, Cellulitis. Cataracts, Macular Degeneration. Diabetes is diet controlled. History of Any Multi-Drug Resistant Organisms: None Reported Past Surgical History: Bariatric Surgery, Heart Catheterization, Hernia Repair, Orthopedic Surgery Additional Past Surgical History / Comment(s): Total right knee replacement, abdominal hernia repair X3, left hip repair d/t fracture, gastric bypass with revision, colonoscopy. Past Anesthesia/Blood Transfusion Reactions: No Reported Reaction Past Psychological History: Anxiety, Bipolar, Depression, Panic Disorder, PTSD Smoking Status: Never smoker Past Alcohol Use History: None Reported Past Drug Use History: None Reported - Past Family History Mother Family Medical History: Cancer Additional Family Medical History / Comment(s): Lung cancer. Father Family Medical History: Diabetes Mellitus, Deep Vein Thrombosis (DVT), Myocardial Infarction ([place]), Pulmonary Embolus Additional Family Medical History / Comment(s): "My dad from a blood clot that traveled from his leg to his lung and also caused a heart attack." Brother(s) Family Medical History: Diabetes Mellitus Sister(s) Additional Family Medical History / Comment(s): "Her heart races too fast." General Exam General appearance: alert, in no apparent distress Head exam: Present: atraumatic, normocephalic, normal inspection Neck exam: Present: normal inspection, full ROM. Absent: tenderness, meningismus, lymphadenopathy Respiratory exam: Present: normal lung sounds bilaterally. Absent: respiratory distress, wheezes, rales, rhonchi, stridor Cardiovascular Exam: Present: regular rate, normal rhythm, normal heart sounds. Absent: systolic murmur, diastolic murmur, rubs, gallop, clicks Extremities exam: Present: other (Left knee patient reports diffuse tenderness patient is able to full range of motion neurovascular intact no tenderness above or below no iris deformity) Course Vital Signs 04/01/21 14:44 Temperature 97.6 F Pulse Rate 87 Respiratory 20 Rate Blood Pressure 124/74 O2 Sat by Pulse 96 Oximetry Medical Decision Making - Medical Decision Making X-ray shows degenerative changes no acute fracture. Patient we discharged to condition return parameters discussed. Disposition Clinical Impression: Strain of left knee Disposition: HOME SELF-CARE Condition: Stable Instructions (If sedation given, give patient instructions): Knee Pain (ED) Additional Instructions: Please return to the Emergency Department if symptoms worsen or any other concerns. Is patient prescribed a controlled substance at d/c from ED?: No Referrals: Beau Jade MD [Primary Care Provider] - 1-2 days Time of Disposition: 15:58
[2021-04-01] MEDS: ACET/COD 300 MG/30 MG STARTER PACK 6 TAB BTL PO STA (16:24)
== END 2021-04-01 16:34 | disposition home or self-care (01) ==
LOC: EC 14:38
DX: S86.912A Strain of unspecified muscle(s) and tendon(s) at lower leg level, left leg, initial encounter (principal); I11.0 Hypertensive heart disease with heart failure; I50.9 Heart failure, unspecified; J44.9 Chronic obstructive pulmonary disease, unspecified; E11.36 Type 2 diabetes mellitus with diabetic cataract; E03.9 Hypothyroidism, unspecified; E78.5 Hyperlipidemia, unspecified; G25.81 Restless legs syndrome; K21.9 Gastro-esophageal reflux disease without esophagitis; M10.9 Gout, unspecified; F31.9 Bipolar disorder, unspecified; F41.9 Anxiety disorder, unspecified; Z87.440 Personal history of urinary (tract) infections; Z86.711 Personal history of pulmonary embolism; Z79.1 Long term (current) use of non-steroidal anti-inflammatories (NSAID); Z79.01 Long term (current) use of anticoagulants; Z79.890 Hormone replacement therapy; Z79.82 Long term (current) use of aspirin; Z79.899 Other long term (current) drug therapy; Z88.0 Allergy status to penicillin; Z88.2 Allergy status to sulfonamides; Z88.8 Allergy status to other drugs, medicaments and biological substances; Z98.84 Bariatric surgery status; X50.1XXA Overexertion from prolonged static or awkward postures, initial encounter
CPT/HCPCS: 96372; 99283

== ENCOUNTER 2021-04-14 12:43 | Emergency (ER) | payer MEDICARE, OTHER ==
[2021-04-14 13:33] VITALS: RESP 16
[2021-04-14] MEDS ORDERED: SODIUM CHLORIDE 0.9% 1,000 ML IV STA (13:37)
--- NOTE | 2021-04-14 13:46 | ED ---
General Adult HPI - General Chief complaint: GI Bleed Stated complaint: Female Source: patient, RN notes reviewed, old records reviewed Mode of arrival: EMS Limitations: no limitations - History of Present Illness Initial comments: 61-year-old white female presents to the emergency room with complaints of abdominal burning with nausea and vomiting for the last 5 days. Patient states she's had been vomiting 2-3 times a day with complains of abdominal cramping. She states that she went to the bathroom today and it was bloody but she's not sure where the blood is coming from. She also states that she had a nosebleed today which has resolved at this time. She denies any chest pain or shortness of breath. She did have gastric bypass and multiple abdominal surgeries for hernia repairs. -: days(s) (5) Location: abdomen Radiation: non-radiation Severity scale (1-10): 8 Quality: burning Consistency: constant Improves with: none Worsens with: none Associated Symptoms: nausea/vomiting, other (Rectal bleeding) Treatments Prior to Arrival: none - Related Data Home Medications Medication Instructions Recorded Confirmed Carvedilol [Coreg] 25 mg PO BID@699,199906/07/17 01/20/21 Montelukast [Singulair] 10 mg PO DAILY@69906/28/18 01/20/21 DULoxetine HCL [Cymbalta] 60 mg PO BID@08/15/18 01/20/21 rOPINIRole HCL [Requip] 4 mg PO BID@07,199911/18/18 01/20/21 allopurinoL [Zyloprim] 100 mg PO DAILY@69908/14/19 01/20/21 Diclofenac Sodium [Voltaren Gel] 2 gram TOPICAL QID@,,,04/03/20 01/20/21 Potassium Chloride ER [K-Dur 10] 10 meq PO DAILY@69904/03/20 01/20/21 Meloxicam [Mobic] 7.5 mg PO DAILY@69906/21/20 01/20/21 Mirabegron [Myrbetriq] 25 mg PO DAILY@0700 07/14/20 01/20/21 Rivaroxaban [Xarelto] 10 mg PO DAILY@0707/30/20 01/20/21 Lovastatin [Mevacor] 10 mg PO HS@199908/16/20 01/20/21 lamoTRIgine [LaMICtal] 200 mg PO DAILY@69908/16/20 01/20/21 ALPRAZolam [Xanax] 0.5 mg PO BID@699,199912/01/20 01/20/21 Celecoxib [CeleBREX] 200 mg PO DAILY@69912/01/20 01/20/21 Gabapentin [Neurontin] 600 mg PO TID@07,170,199912/01/20 01/20/21 Levothyroxine Sodium 125 mcg PO DAILY@0612/01/20 01/20/21 Ergocalciferol (Vitamin D2) 1,250 mcg PO MO 12/09/20 01/20/21 [Vitamin D2 (50,000 Iu)] Nystatin/Triamcin Cream [Mycolog 1 applic TOPICAL BID@699,199912/09/20 01/20/21 100,000-0.1 Unit/gm-% Cream] traMADol HCL 50 mg PO Q6H PRN 12/09/20 01/20/21 Albuterol Sulfate [Ventolin HFA] 2 puff INHALATION RT-Q6H PRN 01/20/21 01/20/21 Aspirin EC [Ecotrin] 325 mg PO DAILY@69901/20/21 01/20/21 Clotrimazole/Betamethasone Dip 1 applic TOPICAL BID@699,199901/20/21 01/20/21 [Lotrisone Cream] Docusate [Colace] 100 mg PO BID@699,199901/20/21 01/20/21 Ibuprofen [Motrin] 600 mg PO Q6H PRN 01/20/21 01/20/21 Omeprazole [PriLOSEC] 40 mg PO DAILY@69901/20/21 01/20/21 Torsemide [Demadex] 50 mg PO SUTUTHSA@69901/20/21 01/20/21 Torsemide [Demadex] 100 mg PO MOWEFR@69901/20/21 01/20/21 ondansetron HCL [Zofran] 8 mg PO Q6H PRN 01/20/21 01/20/21 Allergies Allergy/AdvReac Type Severity Reaction Status Date / Time buspirone [From BuSpar] Allergy Rash/Hives Verified 04/14/21 12:55 haloperidol [From Haldol] Allergy Swelling Verified 04/14/21 12:55 hydroxyzine [From Vistaril] Allergy Rash/Hives Verified 04/14/21 12:55 iodine Allergy Swelling Verified 04/14/21 12:55 Penicillins Allergy Swelling Verified 04/14/21 12:55 prochlorperazine Allergy Rash/Hives Verified 04/14/21 12:55 Sulfa (Sulfonamide Allergy Rash/Hives Verified 04/14/21 12:55 Antibiotics) Tetanus Vaccines and Toxoid Allergy Rash/Hives Verified 04/14/21 12:55 [Tetanus Vaccines & Toxoid] trifluoperazine HCl Allergy Unknown Verified 04/14/21 12:55 [From Stelazine] Review of Systems ROS Statement: Those systems with pertinent positive or pertinent negative responses have been documented in the HPI. ROS Other: All systems not noted in ROS Statement are negative. Past Medical History Past Medical History: Asthma, Heart Failure, COPD, Diabetes Mellitus, GERD/Reflux, Hyperlipidemia, Hypertension, Musculoskeletal Disorder, Osteoarthr itis (OA), Pneumonia, Pulmonary Embolus (PE), Thyroid Disorder Additional Past Medical History / Comment(s): Chronic low back and bilateral knee pain, herniated discs, RLS, leg edema, anemia, hypothyroid. Hx Gout, UTIs, Cellulitis. Cataracts, Macular Degeneration. Diabetes is diet controlled. History of Any Multi-Drug Resistant Organisms: None Reported Past Surgical History: Bariatric Surgery, Heart Catheterization, Hernia Repair, Orthopedic Surgery Additional Past Surgical History / Comment(s): Total right knee replacement, abdominal hernia repair X3, left hip repair d/t fracture, gastric bypass with revision, colonoscopy. Past Anesthesia/Blood Transfusion Reactions: No Reported Reaction Past Psychological History: Anxiety, Bipolar, Depression, Panic Disorder, PTSD Smoking Status: Never smoker Past Alcohol Use History: None Reported Past Drug Use History: None Reported - Past Family History Mother Family Medical History: Cancer Additional Family Medical History / Comment(s): Lung cancer. Father Family Medical History: Diabetes Mellitus, Deep Vein Thrombosis (DVT), Myocardial Infarction ([place]), Pulmonary Embolus Additional Family Medical History / Comment(s): "My dad from a blood clot that traveled from his leg to his lung and also caused a heart attack." Brother(s) Family Medical History: Diabetes Mellitus Sister(s) Additional Family Medical History / Comment(s): "Her heart races too fast." General Exam Limitations: no limitations, physical limitation (Uses a walker) General appearance: alert, in no apparent distress Head exam: Present: atraumatic, normocephalic, normal inspection Eye exam: Present: normal appearance, PERRL, EOMI. Absent: scleral icterus, conjunctival injection, periorbital swelling ENT exam: Present: normal exam, normal oropharynx (Patient has a ulcer to the right lateral tongue, pink base), mucous membranes moist Neck exam: Present: normal inspection, full ROM. Absent: tenderness, meningismus, lymphadenopathy Respiratory exam: Present: normal lung sounds bilaterally. Absent: respiratory distress, wheezes, rales, rhonchi, stridor Cardiovascular Exam: Present: regular rate. Absent: JVD GI/Abdominal exam: Present: soft, tenderness (Diffuse), normal bowel sounds, other (verticle abdominal scar). Absent: distended, guarding, rebound, rigid Rectal exam: Present: normal inspection, normal rectal tone. Absent: bloody stool, mass, tenderness External exam: Present: normal external exam. Absent: erythema, swelling Speculum exam: Present: normal speculum exam. Absent: erythema, vaginal discharge, cervical discharge, vaginal bleeding, foreign body Extremities exam: Present: normal capillary refill, pedal edema. Absent: tenderness, calf tenderness Back exam: Present: normal inspection. Absent: tenderness, CVA tenderness (R), CVA tenderness (L), muscle spasm, paraspinal tenderness, vertebral tenderness, rash noted Neurological exam: Present: alert, oriented X3, CN II-XII intact Expanded Patient oriented to: Present: person, place, time Speech: Present: fluid speech Cranial nerves: EOM's Intact: Normal, Gag Reflex: Normal, Tongue Deviation: Normal Eye Response: (4) open spontaneously Motor Response: (6) obeys commands Verbal Response: (5) oriented [place] Total: 15 Psychiatric exam: Present: normal affect, normal mood Skin exam: Present: warm, dry, intact, normal color. Absent: rash, cyanosis, diaphoretic, petechiae, pallor Course Vital Signs 04/14/21 04/14/21 04/14/21 12:51 12:59 15:41 Temperature 97.5 F L 98.4 F Pulse Rate 79 84 Respiratory 16 16 Rate Blood Pressure 122/49 121/59 129/64 O2 Sat by Pulse 98 96 Oximetry 04/14/21 18:30 Temperature 98.2 F Pulse Rate 78 Respiratory 16 Rate Blood Pressure 128/78 O2 Sat by Pulse 98 Oximetry EKG Findings - EKG Results: EKG: sinus rhythm (Ventricular rate 79, MT interval 0.144, QRS of 0.94, QTC of 0.451) Medical Decision Making - Medical Decision Making Hemoglobin and hematocrit is 10.3 and 32.3 respectively which is consistent for the patient. Troponin is negative at 0.012 EKG shows sinus rhythm with no acute changes. CT the abdomen with contrast shows no acute abnormality, gastric bypass and cholecystectomy noted. Abdomen is soft nondistended and nontender. UA shows no blood or sign of infection. Rectal exam no gross blood, good tone. Vaginal exam with speculum shows no blood in the vaginal vault, no cervical discharge. Patient advised to follow up with her primary care doctor. She was given the Requip that she stated she must have by 6 PM. Case discussed with Dr. Brownlee. - Lab Data Result diagrams: 04/14/21 13:46 04/14/21 13:46 Lab Results 04/14/21 04/14/21 04/14/21 Range/Units 13:46 13:46 13:46 WBC 7.6 (3.8-10.6) k/uL RBC 3.67 L (3.80-5.40) m/uL Hgb 10.3 L (11.4-16.0) gm/dL Hct 32.3 L (34.0-46.0) % MCV 88.0 (80.0-100.0) fL MCH 28.0 (25.0-35.0) pg MCHC 31.8 (31.0-37.0) g/dL RDW 15.5 (11.5-15.5) % Plt Count 324 (150-450) k/uL MPV 8.1 Neutrophils % 75 % Lymphocytes % 14 % Monocytes % 6 % Eosinophils % 2 % Basophils % 1 % Neutrophils # 5.7 (1.3-7.7) k/uL Lymphocytes # 1.0 (1.0-4.8) k/uL Monocytes # 0.4 (0-1.0) k/uL Eosinophils # 0.2 (0-0.7) k/uL Basophils # 0.0 (0-0.2) k/uL Hypochromasia Slight PT 10.0 (9.0-12.0) sec INR 0.9 (<1.2) APTT 24.6 (22.0-30.0) sec Sodium 137 (137-145) mmol/L Potassium 4.2 (3.5-5.1) mmol/L Chloride 99 (98-107) mmol/L Carbon Dioxide 27 (22-30) mmol/L Anion Gap 11 mmol/L BUN 28 H (7-17) mg/dL Creatinine 0.97 (0.52-1.04) mg/dL Est GFR (CKD-EPI)AfAm 74 (>60 ml/min/1.73 sqM) Est GFR (CKD-EPI)NonAf 64 (>60 ml/min/1.73 sqM) Glucose 95 (74-99) mg/dL Plasma Lactic Acid Brock (0.7-2.0) mmol/L Calcium 9.2 (8.4-10.2) mg/dL Magnesium 2.0 (1.6-2.3) mg/dL Total Bilirubin 0.2 (0.2-1.3) mg/dL AST 25 (14-36) U/L ALT 11 (4-34) U/L Alkaline Phosphatase 140 H (38-126) U/L Troponin I (0.000-0.034) ng/mL Total Protein 6.7 (6.3-8.2) g/dL Albumin 4.1 (3.5-5.0) g/dL Lipase 61 (23-300) U/L Urine Color Urine Appearance (Clear) Urine pH (5.0-8.0) Ur Specific [place] (1.001-1.035) Urine Protein (Negative) Urine Glucose (UA) (Negative) Urine Ketones (Negative) Urine Blood (Negative) Urine Nitrite (Negative) Urine Bilirubin (Negative) Urine Urobilinogen (<2.0) mg/dL Ur Leukocyte Esterase (Negative) 04/14/21 04/14/21 04/14/21 Range/Units 13:46 13:46 17:47 WBC (3.8-10.6) k/uL RBC (3.80-5.40) m/uL Hgb (11.4-16.0) gm/dL Hct (34.0-46.0) % MCV (80.0-100.0) fL MCH (25.0-35.0) pg MCHC (31.0-37.0) g/dL RDW (11.5-15.5) % Plt Count (150-450) k/uL MPV Neutrophils % % Lymphocytes % % Monocytes % % Eosinophils % % Basophils % % Neutrophils # (1.3-7.7) k/uL Lymphocytes # (1.0-4.8) k/uL Monocytes # (0-1.0) k/uL Eosinophils # (0-0.7) k/uL Basophils # (0-0.2) k/uL Hypochromasia PT (9.0-12.0) sec INR (<1.2) APTT (22.0-30.0) sec Sodium (137-145) mmol/L Potassium (3.5-5.1) mmol/L Chloride (98-107) mmol/L Carbon Dioxide (22-30) mmol/L Anion Gap mmol/L BUN (7-17) mg/dL Creatinine (0.52-1.04) mg/dL Est GFR (CKD-EPI)AfAm (>60 ml/min/1.73 sqM) Est GFR (CKD-EPI)NonAf (>60 ml/min/1.73 sqM) Glucose (74-99) mg/dL Plasma Lactic Acid Brock 1.4 (0.7-2.0) mmol/L Calcium (8.4-10.2) mg/dL Magnesium (1.6-2.3) mg/dL Total Bilirubin (0.2-1.3) mg/dL AST (14-36) U/L ALT (4-34) U/L Alkaline Phosphatase (38-126) U/L Troponin I <0.012 (0.000-0.034) ng/mL Total Protein (6.3-8.2) g/dL Albumin (3.5-5.0) g/dL Lipase (23-300) U/L Urine Color Colorless Urine Appearance Clear (Clear) Urine pH 6.0 (5.0-8.0) Ur Specific [place] 1.011 (1.001-1.035) Urine Protein Negative (Negative) Urine Glucose (UA) Negative (Negative) Urine Ketones Negative (Negative) Urine Blood Negative (Negative) Urine Nitrite Negative (Negative) Urine Bilirubin Negative (Negative) Urine Urobilinogen <2.0 (<2.0) mg/dL Ur Leukocyte Esterase Negative (Negative) Disposition Clinical Impression: Abdominal pain Disposition: HOME SELF-CARE Condition: Fair Instructions (If sedation given, give patient instructions): Abdominal Pain (ED) Additional Instructions: Return to the emergency room with any worsening symptoms, bleeding or fevers. Follow-up with your primary care doctor in 1 week. Is patient prescribed a controlled substance at d/c from ED?: No Referrals: Beau Jade MD [Primary Care Provider] - 1-2 days Time of Disposition: 18:03
[2021-04-14 13:57] LABS: Basophils % (A) 1 %; Eosinophils # (A) 0.2 k/uL (0-0.7); Eosinophils % (A) 2 %; HCT 32.3 % (34.0-46.0); HGB 10.3 gm/dL (11.4-16.0); Hypochromasia Slight; Lymphocytes % (A) 14 %; MCHC 31.8 g/dL (31.0-37.0); Mean Platelet Volume 8.1; Monocytes # (A) 0.4 k/uL (0-1.0); Monocytes % (A) 6 %; Neutrophils # (A) 5.7 k/uL (1.3-7.7); Neutrophils % (A) 75 %; Platelet Count 324 k/uL (150-450); RBC 3.67 m/uL (3.80-5.40); RDW 15.5 % (11.5-15.5); WBC 7.6 k/uL (3.8-10.6)
[2021-04-14 14:09] LABS: Albumin 4.1 g/dL (3.5-5.0); Calcium 9.2 mg/dL (8.4-10.2); Potassium 4.2 mmol/L (3.5-5.1); Total Bilirubin 0.2 mg/dL (0.2-1.3); Total Protein 6.7 g/dL (6.3-8.2)
[2021-04-14 14:14] LABS: INR 0.9 (<1.2); Partial Thromboplastin Time 24.6 sec (22.0-30.0)
[2021-04-14] MEDS ORDERED: FAMOTIDINE 20 MG/2 ML VIAL IV STA (15:09)
[2021-04-14] MEDS ORDERED: diphenhydrAMINE 50 MG/ML 1 ML VIAL IVP STA (15:09)
[2021-04-14] MEDS ORDERED: methylPREDNISolone SOD SUCCI 125 MG/2 ML VIAL IV STA (15:09)
[2021-04-14] MEDS ORDERED: HYDROmorphone 0.5 MG/0.5 ML SYRINGE IVP STA (15:10)
--- NOTE | 2021-04-14 16:31 | CT ---
EXAMINATION TYPE: CT abdomen pelvis w con DATE OF EXAM: 04/14/2021 COMPARISON: None available HISTORY: Pain CT DLP: 3738 mGycm Automated exposure control for dose reduction was used. TECHNIQUE: Helical acquisition of images was performed from the lung bases through the pelvis. CONTRAST: Performed without Oral Contrast and with IV Contrast, patient injected with 100 mL of Isovue 300. FINDINGS: LUNG BASES: No significant abnormality is appreciated. LIVER/GB: No significant abnormality is appreciated. Cholecystectomy noted. PANCREAS: No significant abnormality is seen. SPLEEN: No significant abnormality is seen. ADRENALS: No significant abnormality is seen. KIDNEYS: Right renal pelvic ectasia. No right hydronephrosis or nephrolithiasis. FREE AIR: No free air is visualized. RETROPERITONEAL ADENOPATHY: None visualized REPRODUCTIVE ORGANS: No significant abnormality is seen URINARY BLADDER: Mildly distended urinary bladder. PELVIC ADENOPATHY: None visualized. OSSEOUS STRUCTURES: No acute abnormality is seen. Moderate lumbar spondylosis. BOWEL: Gastric bypass. No bowel obstruction, free air or fluid. Anterior mid abdominal wall subcutan eous soft tissue thickening, compatible with postsurgical changes/scarring. OTHER: None IMPRESSION: NO DEFINITE ACUTE ABNORMALITY. GASTRIC BYPASS AND CHOLECYSTECTOMY. DISTENDED URINARY BLADDER.
[2021-04-14 17:56] LABS: Appearance,Urine Clear (Clear); Bilirubin,Urine Negative (Negative); Blood,Urine Negative (Negative); Color,Urine Colorless; Glucose,Urine (UA) Negative (Negative); Ketones,Urine Negative (Negative); Leukocyte Esterase,Urine Negative (Negative); Nitrite,Urine Negative (Negative); Protein,Urine Negative (Negative); Specific Gravity,Urine 1.011 (1.001-1.035); Urobilinogen,Urine <2.0 mg/dL (<2.0)
[2021-04-14 18:31] VITALS: BP 128/78; PULSE 78; TEMP 98.2
== END 2021-04-14 18:30 | disposition home or self-care (01) ==
LOC: EC 12:43
DX: R10.84 Generalized abdominal pain (principal); I11.0 Hypertensive heart disease with heart failure; I50.9 Heart failure, unspecified; E11.36 Type 2 diabetes mellitus with diabetic cataract; K21.9 Gastro-esophageal reflux disease without esophagitis; E78.5 Hyperlipidemia, unspecified; J45.909 Unspecified asthma, uncomplicated; M19.90 Unspecified osteoarthritis, unspecified site; E07.9 Disorder of thyroid, unspecified; E03.9 Hypothyroidism, unspecified; F41.9 Anxiety disorder, unspecified; F31.9 Bipolar disorder, unspecified; F43.12 Post-traumatic stress disorder, chronic; Z88.0 Allergy status to penicillin; Z88.2 Allergy status to sulfonamides; Z88.1 Allergy status to other antibiotic agents; Z88.7 Allergy status to serum and vaccine; Z98.84 Bariatric surgery status; Z86.711 Personal history of pulmonary embolism; Z96.651 Presence of right artificial knee joint; Z79.82 Long term (current) use of aspirin; Z87.440 Personal history of urinary (tract) infections
CPT/HCPCS: 99285; 96374; 96375 ×3; 96361; 36415; 93005; 80053; 83605; 83690; 83735; 84484; 85025; 85610; 85730; 81003; 74177; J1200; J2930; J1170; Q9967

== ENCOUNTER 2021-04-22 15:04 | Emergency (ER) | payer MEDICARE, OTHER ==
[2021-04-22 15:14] VITALS: TEMP 98.4
--- NOTE | 2021-04-22 15:43 | XR ---
EXAMINATION TYPE: XR chest 2V DATE OF EXAM: 04/22/2021 COMPARISON: 12/20/2020. HISTORY: Cough TECHNIQUE: Frontal and lateral views of the chest are obtained. FINDINGS: There is no focal air space opacity, pleural effusion, or pneumothorax seen. The cardiac silhouette size is within normal limits. The osseous structures are intact. IMPRESSION: No acute cardiopulmonary process.
[2021-04-22] MEDS ORDERED: IPRATROPIUM-ALBUTEROL 3 ML NEB INHALATION STA (15:51)
[2021-04-22] MEDS ORDERED: ALBUTEROL NEBULIZED 2.5 MG/3 ML INHALATION STA (15:51)
--- NOTE | 2021-04-22 15:53 | ED ---
General Adult HPI - General Chief complaint: Upper Respiratory Infection Stated complaint: Cough Time Seen by Provider: 04/22/21 15:21 Source: patient, EMS, RN notes reviewed, old records reviewed Mode of arrival: EMS - History of Present Illness Initial comments: 61-year-old female presenting with chief complaint of cough. Patient has had a dry cough over the past 3 days. No dyspnea. No chest pain. No fever. She denies abdominal pain nausea vomiting. She denies lower extremity edema. She has been vaccinated against coronavirus and does not know of any known contacts. - Related Data Home Medications Medication Instructions Recorded Confirmed Carvedilol [Coreg] 25 mg PO BID@07,199906/07/17 01/20/21 Montelukast [Singulair] 10 mg PO DAILY@69906/28/18 01/20/21 DULoxetine HCL [Cymbalta] 60 mg PO BID@07,199908/15/18 01/20/21 rOPINIRole HCL [Requip] 4 mg PO BID@07,199911/18/18 01/20/21 allopurinoL [Zyloprim] 100 mg PO DAILY@69908/14/19 01/20/21 Diclofenac Sodium [Voltaren Gel] 2 gram TOPICAL QID@,,,04/03/20 01/20/21 Potassium Chloride ER [K-Dur 10] 10 meq PO DAILY@69904/03/20 01/20/21 Meloxicam [Mobic] 7.5 mg PO DAILY@69906/21/20 01/20/21 Mirabegron [Myrbetriq] 25 mg PO DAILY@69907/14/20 01/20/21 Rivaroxaban [Xarelto] 10 mg PO DAILY@69907/30/20 01/20/21 Lovastatin [Mevacor] 10 mg PO HS@199908/16/20 01/20/21 lamoTRIgine [LaMICtal] 200 mg PO DAILY@69908/16/20 01/20/21 ALPRAZolam [Xanax] 0.5 mg PO BID@07,199912/01/20 01/20/21 Celecoxib [CeleBREX] 200 mg PO DAILY@69912/01/20 01/20/21 Gabapentin [Neurontin] 600 mg PO TID@00,1700,199912/01/20 01/20/21 Levothyroxine Sodium 125 mcg PO DAILY@0630 12/01/20 01/20/21 Ergocalciferol (Vitamin D2) 1,250 mcg PO MO 12/09/20 01/20/21 [Vitamin D2 (50,000 Iu)] Nystatin/Triamcin Cream [Mycolog 1 applic TOPICAL BID@07,199912/09/20 01/20/21 100,000-0.1 Unit/gm-% Cream] traMADol HCL 50 mg PO Q6H PRN 12/09/20 01/20/21 Albuterol Sulfate [Ventolin HFA] 2 puff INHALATION RT-Q6H PRN 01/20/21 01/20/21 Aspirin EC [Ecotrin] 325 mg PO DAILY@0701/20/21 01/20/21 Clotrimazole/Betamethasone Dip 1 applic TOPICAL BID@07,199901/20/21 01/20/21 [Lotrisone Cream] Docusate [Colace] 100 mg PO BID@0700,199901/20/21 01/20/21 Ibuprofen [Motrin] 600 mg PO Q6H PRN 01/20/21 01/20/21 Omeprazole [PriLOSEC] 40 mg PO DAILY@0701/20/21 01/20/21 Torsemide [Demadex] 50 mg PO SUTUTHSA@0701/20/21 01/20/21 Torsemide [Demadex] 100 mg PO MOWEFR@0701/20/21 01/20/21 ondansetron HCL [Zofran] 8 mg PO Q6H PRN 01/20/21 01/20/21 Previous Rx's Medication Instructions Recorded Albuterol Inhaler [Ventolin Hfa 2 puff INHALATION QID #1 unit 04/22/21 Inhaler] predniSONE 50 mg PO DAILY #5 tab 04/22/21 Allergies Allergy/AdvReac Type Severity Reaction Status Date / Time buspirone [From BuSpar] Allergy Rash/Hives Verified 04/14/21 12:55 haloperidol [From Haldol] Allergy Swelling Verified 04/14/21 12:55 hydroxyzine [From Vistaril] Allergy Rash/Hives Verified 04/14/21 12:55 iodine Allergy Swelling Verified 04/14/21 12:55 Penicillins Allergy Swelling Verified 04/14/21 12:55 prochlorperazine Allergy Rash/Hives Verified 04/14/21 12:55 Sulfa (Sulfonamide Allergy Rash/Hives Verified 04/14/21 12:55 Antibiotics) Tetanus Vaccines and Toxoid Allergy Rash/Hives Verified 04/14/21 12:55 [Tetanus Vaccines & Toxoid] trifluoperazine HCl Allergy Unknown Verified 04/14/21 12:55 [From Stelazine] Review of Systems ROS Statement: Those systems with pertinent positive or pertinent negative responses have been documented in the HPI. ROS Other: All systems not noted in ROS Statement are negative. Past Medical History Past Medical History: Asthma, Heart Failure, COPD, Diabetes Mellitus, GERD/Reflux, Hyperlipidemia, Hypertension, Musculoskeletal Disorder, Osteoarthritis (OA), Pneumonia, Pulmonary Embolus (PE), Thyroid Disorder Additional Past Medical History / Comment(s): Chronic low back and bilateral knee pain, herniated discs, RLS, leg edema, anemia, hypothyroid. Hx Gout, UTIs, Cellulitis. Cataracts, Macular Degeneration. Diabetes is diet controlled. History of Any Multi-Drug Resistant Organisms: None Reported Past Surgical History: Bariatric Surgery, Heart Catheterization, Hernia Repair, Orthopedic Surgery Additional Past Surgical History / Comment(s): Total right knee replacement, abdominal hernia repair X3, left hip repair d/t fracture, gastric bypass with revision, colonoscopy. Past Anesthesia/Blood Transfusion Reactions: No Reported Reaction Past Psychological History: Anxiety, Bipolar, Depression, Panic Disorder, PTSD Smoking Status: Never smoker Past Alcohol Use History: None Reported Past Drug Use History: None Reported - Past Family History Mother Family Medical History: Cancer Additional Family Medical History / Comment(s): Lung cancer. Father Family Medical History: Diabetes Mellitus, Deep Vein Thrombosis (DVT), Myocardial Infarction ([place]), Pulmonary Embolus Additional Family Medical History / Comment(s): "My dad from a blood clot that traveled from his leg to his lung and also caused a heart attack." Brother(s) Family Medical History: Diabetes Mellitus Sister(s) Additional Family Medical History / Comment(s): "Her heart races too fast." General Exam General appearance: alert, in no apparent distress Head exam: Present: atraumatic, normocephalic Eye exam: Present: normal appearance, PERRL ENT exam: Present: normal exam Neck exam: Present: normal inspection. Absent: tenderness, meningismus Respiratory exam: Present: other (Good air entry, bronchospastic cough.). Absent: respiratory distress, wheezes Cardiovascular Exam: Present: regular rate, normal rhythm GI/Abdominal exam: Present: soft. Absent: distended, tenderness, guarding Extremities exam: Present: normal capillary refill. Absent: pedal edema Neurological exam: Present: alert, oriented X3, CN II-XII intact. Absent: motor sensory deficit Psychiatric exam: Present: normal affect, normal mood Skin exam: Present: warm, dry, intact. Absent: cyanosis, diaphoretic Course Vital Signs 04/22/21 04/22/21 04/22/21 15:07 16:14 16:31 Temperature 98.4 F Pulse Rate 92 Respiratory 20 18 18 Rate Blood Pressure 145/91 O2 Sat by Pulse 94 L Oximetry 04/22/21 04/22/21 16:45 17:01 Temperature Pulse Rate 68 70 Respiratory 16 16 Rate Blood Pressure O2 Sat by Pulse Oximetry Medical Decision Making - Medical Decision Making Patient with cough, dry cough. Coronavirus negative, chest x-ray clear. Patient feeling better after breathing treatment. Vital signs are stable. Will be discharged home with treatment for acute bronchitis. - Lab Data Lab Results 04/22/21 Range/Units 15:35 Coronavirus (PCR) Not Detected (Not Detectd) Disposition Clinical Impression: Acute bronchitis Disposition: HOME SELF-CARE Condition: Fair Instructions (If sedation given, give patient instructions): Upper Respiratory Infection (ED) Prescriptions: predniSONE 50 mg PO DAILY #5 tab Albuterol Inhaler [Ventolin Hfa Inhaler] 2 puff INHALATION QID #1 unit Is patient prescribed a controlled substance at d/c from ED?: No Referrals: Beau Jade MD [Primary Care Provider] - 1-2 days Time of Disposition: 17:17
[2021-04-22 16:57] VITALS: RESP 16
[2021-04-22 17:43] VITALS: BP 143/103; PULSE 71
== END 2021-04-22 17:33 | disposition home or self-care (01) ==
LOC: EC 15:04
DX: J20.9 Acute bronchitis, unspecified (principal); J44.0 Chronic obstructive pulmonary disease with (acute) lower respiratory infection; E03.9 Hypothyroidism, unspecified; E11.36 Type 2 diabetes mellitus with diabetic cataract; E78.5 Hyperlipidemia, unspecified; G25.81 Restless legs syndrome; I11.0 Hypertensive heart disease with heart failure; I50.9 Heart failure, unspecified; K21.9 Gastro-esophageal reflux disease without esophagitis; M10.9 Gout, unspecified; M19.90 Unspecified osteoarthritis, unspecified site; F31.9 Bipolar disorder, unspecified; F41.9 Anxiety disorder, unspecified; Z86.711 Personal history of pulmonary embolism; Z87.440 Personal history of urinary (tract) infections; Z20.822 Contact with and (suspected) exposure to COVID-19; Z79.1 Long term (current) use of non-steroidal anti-inflammatories (NSAID); Z79.890 Hormone replacement therapy; Z79.52 Long term (current) use of systemic steroids; Z79.82 Long term (current) use of aspirin; Z79.01 Long term (current) use of anticoagulants; Z79.899 Other long term (current) drug therapy; Z88.2 Allergy status to sulfonamides; Z88.8 Allergy status to other drugs, medicaments and biological substances; Z88.0 Allergy status to penicillin; Z98.84 Bariatric surgery status
CPT/HCPCS: 71046; 87635; 94640; 99284

== ENCOUNTER 2021-05-01 16:14 | Emergency (ER) | payer MEDICARE, OTHER ==
[2021-05-01] MEDS ORDERED: ZIPRASIDONE 20 MG VIAL IM STA (16:29)
[2021-05-01 16:41] VITALS: BP 156/89; PULSE 100; RESP 18
--- NOTE | 2021-05-01 17:00 | ED ---
General Adult HPI - General Chief complaint: Recheck/Abnormal Lab/Rx Stated complaint: mental health Time Seen by Provider: 05/01/21 16:40 Source: EMS, Caregiver Mode of arrival: EMS Limitations: no limitations - History of Present Illness Initial comments: Patient is a 61-year-old female with multiple medical conditions who presents to the emergency department as reported she was found in her bed unresponsive. Patient arrives from an [facility] home. According to EMS the staff attempted to wake her up and she was having difficulty arousing. EMS hot to the house and were able to sternal rub the patient. She awoke fairly quickly and began punching at EMS. They were able to load her up into the ambulance however she remained combative. They did call into the hospital to obtain medications in order to sedate the patient. They were directed to give 10 mg of IM Versed. Patient arrives kicking, screaming and swearing at staff. She is extremely u ncooperative. She states that she was sent to the hospital because she was having difficulty waking up. Patient's will not provide a history. She continues to be aggressive with staff. She denies suicidal or homicidal ideations. The remainder of the HPI is limited - Related Data Home Medications Medication Instructions Recorded Confirmed Carvedilol [Coreg] 25 mg PO BID@07,199906/07/17 05/01/21 Montelukast [Singulair] 10 mg PO DAILY@69906/28/18 05/01/21 DULoxetine HCL [Cymbalta] 60 mg PO BID@08/15/18 05/01/21 allopurinoL [Zyloprim] 100 mg PO DAILY@69908/14/19 05/01/21 Diclofenac Sodium [Voltaren Gel] 2 gram TOPICAL QID PRN 04/03/20 05/01/21 Potassium Chloride ER [K-Dur 10] 10 meq PO DAILY@69904/03/20 05/01/21 Meloxicam [Mobic] 7.5 mg PO DAILY@0706/21/20 05/01/21 Mirabegron [Myrbetriq] 25 mg PO DAILY@0700 07/14/20 05/01/21 Rivaroxaban [Xarelto] 10 mg PO DAILY@0700 07/30/20 05/01/21 Lovastatin [Mevacor] 10 mg PO HS@199908/16/20 05/01/21 lamoTRIgine [LaMICtal] 200 mg PO DAILY@69908/16/20 05/01/21 Celecoxib [CeleBREX] 200 mg PO DAILY@69912/01/20 05/01/21 Gabapentin [Neurontin] 600 mg PO TID@699,1699,199912/01/20 05/01/21 Levothyroxine Sodium 125 mcg PO DAILY@62912/01/20 05/01/21 Ergocalciferol (Vitamin D2) 1,250 mcg PO MO@69912/09/20 05/01/21 [Vitamin D2 (50,000 Iu)] Nystatin/Triamcin Cream [Mycolog 1 applic TOPICAL BID@699,199912/09/20 05/01/21 100,000-0.1 Unit/gm-% Cream] traMADol HCL 50 mg PO Q6H PRN 12/09/20 05/01/21 Aspirin EC [Ecotrin] 325 mg PO DAILY@69901/20/21 05/01/21 Clotrimazole/Betamethasone Dip 1 applic TOPICAL BID PRN 01/20/21 05/01/21 [Lotrisone Cream] Docusate [Colace] 100 mg PO BID@01/20/21 05/01/21 Ibuprofen [Motrin] 600 mg PO TID PRN 01/20/21 05/01/21 Omeprazole [PriLOSEC] 40 mg PO DAILY@69901/20/21 05/01/21 Torsemide [Demadex] 50 mg PO SUTUTHSA@69901/20/21 05/01/21 Torsemide [Demadex] 100 mg PO MOWEFR@69901/20/21 05/01/21 ondansetron HCL [Zofran] 8 mg PO Q6H PRN 01/20/21 05/01/21 Albuterol Inhaler [Ventolin Hfa 2 puff INHALATION RT-QID 05/01/21 05/01/21 Inhaler] Fluticasone Nasal [place] [Flonase 1 spr EA NOSTRIL DAILY@69905/01/21 05/01/21 Nasal [place]] Vit C/E/Zn/Coppr/Lutein/Zeaxan 1 cap PO BID@0700,199905/01/21 05/01/21 [Preservision Areds 2 Softgel] busPIRone HCl [Buspar] 20 mg PO BID@0700,1500 05/01/21 05/01/21 cloNIDine HCL [Kapvay] 0.1 mg PO HS@199905/01/21 05/01/21 lamoTRIgine [LaMICtal] 100 mg PO HS@17005/01/21 05/01/21 rOPINIRole HCL [Requip] 5 mg PO BID@0700,1700 05/01/21 05/01/21 Allergies Allergy/AdvReac Type Severity Reaction Status Date / Time buspirone [From BuSpar] Allergy Rash/Hives Verified 05/01/21 16:57 haloperidol [From Haldol] Allergy Swelling Verified 05/01/21 16:57 hydroxyzine [From Vistaril] Allergy Rash/Hives Verified 05/01/21 16:57 iodine Allergy Swelling Verified 05/01/21 16:57 Penicillins Allergy Swelling Verified 05/01/21 16:57 prochlorperazine Allergy Rash/Hives Verified 05/01/21 16:57 Sulfa (Sulfonamide Allergy Rash/Hives Verified 05/01/21 16:57 Antibiotics) Tetanus Vaccines and Toxoid Allergy Rash/Hives Verified 05/01/21 16:57 [Tetanus Vaccines & Toxoid] trifluoperazine HCl Allergy Unknown Verified 05/01/21 16:57 [From Stelazine] Review of Systems ROS Statement: Those systems with pertinent positive or pertinent negative responses have been documented in the HPI. ROS Other: All systems not noted in ROS Statement are negative. Past Medical History Past Medical History: Asthma, Heart Failure, COPD, Diabetes Mellitus, JAMIA D/Reflux, Hyperlipidemia, Hypertension, Musculoskeletal Disorder, Osteoarthritis (OA), Pneumonia, Pulmonary Embolus (PE), Thyroid Disorder Additional Past Medical History / Comment(s): Chronic low back and bilateral knee pain, herniated discs, RLS, leg edema, anemia, hypothyroid. Hx Gout, UTIs, Cellulitis. Cataracts, Macular Degeneration. Diabetes is diet controlled. History of Any Multi-Drug Resistant Organisms: None Reported Past Surgical History: Bariatric Surgery, Heart Catheterization, Hernia Repair, Orthopedic Surgery Additional Past Surgical History / Comment(s): Total right knee replacement, abdominal hernia repair X3, left hip repair d/t fracture, gastric bypass with revision, colonoscopy. Past Anesthesia/Blood Transfusion Reactions: No Reported Reaction Past Psychological History: Anxiety, Bipolar, Depression, Panic Disorder, PTSD Smoking Status: Never smoker Past Alcohol Use History: None Reported Past Drug Use History: None Reported - Past Family History Mother Family Medical History: Cancer Additional Family Medical History / Comment(s): Lung cancer. Father Family Medical History: Diabetes Mellitus, Deep Vein Thrombosis (DVT), Myocardial Infarction ([place]), Pulmonary Embolus Additional Family Medical History / Comment(s): "My dad from a blood clot that traveled from his leg to his lung and also caused a heart attack." Brother(s) Family Medical History: Diabetes Mellitus Sister(s) Additional Family Medical History / Comment(s): "Her heart races too fast." General Exam Limitations: no limitations General appearance: alert, other (agitated, yelling and swearing) Head exam: Present: atraumatic, normocephalic, normal inspection Eye exam: Present: normal appearance, PERRL, EOMI. Absent: scleral icterus, conjunctival injection, periorbital swelling ENT exam: Present: normal exam, mucous membranes moist Neck exam: Present: normal inspection. Absent: tenderness, meningismus, lymphadenopathy Respiratory exam: Present: normal lung sounds bilaterally. Absent: respiratory distress, wheezes, rales, rhonchi, stridor Cardiovascular Exam: Present: regular rate, normal rhythm, normal heart sounds. Absent: systolic murmur, diastolic murmur, rubs, gallop, clicks GI/Abdominal exam: Present: soft, normal bowel sounds. Absent: distended, tenderness, guarding, rebound, rigid Extremities exam: Present: normal inspection, full ROM, normal capillary refill. Absent: tenderness, pedal edema, joint swelling, calf tenderness Back exam: Present: normal inspection Neurological exam: Present: alert, CN II-XII intact Psychiatric exam: Present: agitated Skin exam: Present: warm, dry, intact, normal color. Absent: rash Course Vital Signs 05/01/21 16:38 Pulse Rate 100 Respiratory 18 Rate Blood Pressure 156/89 O2 Sat by Pulse 93 L Oximetry Medical Decision Making - Medical Decision Making Upon arrival the patient is placed into room 14. I do attempt to obtain a thorough history and physical exam however the patient is extremely aggressive. She is awake, alert and denying any suicidal or homicidal ideations. Patient originally requested to be evaluated for which we do initiate a workup. Patient then begins to refuse treatment. We called the patient's guardian who states that if she is awake, alert and at her normal baseline that she may be transf erred back to her facility without further evaluation. Due to the patient's combative nature she is given 20 mg of Geodon. Patient agrees to take this. Patient needs to follow up with her primary care doctor for further treatment. If she has any new or worsening symptoms she should return to the emergency room. Patient was discharged home in stable condition Disposition Clinical Impression: Aggressive behavior Disposition: HOME SELF-CARE Condition: Stable Instructions (If sedation given, give patient instructions): Mood Disorders (ED) Is patient prescribed a controlled substance at d/c from ED?: No Referrals: Beau Jade MD [Primary Care Provider] - 1-2 days Time of Disposition: 17:00
== END 2021-05-01 17:10 | disposition home or self-care (01) ==
LOC: EC 16:14
DX: R45.6 Violent behavior (principal); E11.36 Type 2 diabetes mellitus with diabetic cataract; I11.0 Hypertensive heart disease with heart failure; I50.9 Heart failure, unspecified; J44.9 Chronic obstructive pulmonary disease, unspecified; E78.5 Hyperlipidemia, unspecified; E03.9 Hypothyroidism, unspecified; K21.9 Gastro-esophageal reflux disease without esophagitis; M10.9 Gout, unspecified; M19.90 Unspecified osteoarthritis, unspecified site; F31.9 Bipolar disorder, unspecified; F41.9 Anxiety disorder, unspecified; G25.81 Restless legs syndrome; Z79.1 Long term (current) use of non-steroidal anti-inflammatories (NSAID); Z79.82 Long term (current) use of aspirin; Z79.01 Long term (current) use of anticoagulants; Z79.890 Hormone replacement therapy; Z79.51 Long term (current) use of inhaled steroids; Z79.899 Other long term (current) drug therapy; Z80.1 Family history of malignant neoplasm of trachea, bronchus and lung; Z82.49 Family history of ischemic heart disease and other diseases of the circulatory system; Z83.3 Family history of diabetes mellitus; Z86.711 Personal history of pulmonary embolism; Z87.440 Personal history of urinary (tract) infections; Z88.0 Allergy status to penicillin; Z88.2 Allergy status to sulfonamides; Z88.8 Allergy status to other drugs, medicaments and biological substances; Z98.84 Bariatric surgery status
CPT/HCPCS: 96372; 99284; J3486

== ENCOUNTER → 2021-05-19 | Outpatient (CLI) | payer MEDICARE, OTHER ==
--- NOTE | 2021-05-19 16:23 | CT ---
EXAMINATION TYPE: CT lumbar spine wo con DATE OF EXAM: 05/19/2021 COMPARISON: 05/05/2016 HISTORY: osteoarthritis, chronic pain CT DLP: 1295.10 mGycm CONTRAST: None TECHNIQUE: CT of the lumbar spine is performed on a spiral scan at 3 mm thick sections. Reconstructed images are performed in the coronal and sagittal planes. Images limited due to patient body habitus . FINDINGS: T12-L1: No focal disc herniation or significant disc bulge is evident. No spinal canal stenosis or neural foraminal stenosis is present. L1-L2: No focal disc herniation or significant disc bulge is evident. No spinal canal stenosis or n eural foraminal stenosis is present L2-L3: Vacuum disc phenomenon is present. No focal disc herniation or significant disc bulge is evide nt. No spinal canal stenosis or neural foraminal stenosis is present L3-L4: Vacuum disc phenomenon is present. There is narrowing of the disc height. No definite disc bul ges. L4-L5: Some disc bulging appears to be present. Extent is somewhat limited. No obvious spinal canal s tenosis or neural foraminal stenosis present. L5-S1: No focal disc herniation or significant disc bulge is evident. Degenerative disc changes loss of disc height and some mild vacuum phenomenon is present. No spinal canal stenosis or neural forami nal stenosis is present. Vertebral alignment appears normal. The extent of any disc bulging is limited in evaluation. Obvious focal large disc herniations or significant disc bulges are not identified based on these images. IMPRESSION: Degenerative disc changes L2-3 through L5-S1. Some vacuum disc phenomenon is present. This is somewha t progressive, most notably L5-S1 from the comparison study. 2. Marked limitations given the patient's body habitus.
== END | disposition home or self-care (01) ==
LOC: RADCTMAIN 14:26
PROVIDERS: ATTEND General Practice
DX: M51.37 Other intervertebral disc degeneration, lumbosacral region (principal)
CPT/HCPCS: 72131

== ENCOUNTER 2021-05-24 13:11 | Emergency (ER) | payer MEDICARE, OTHER ==
[2021-05-24 13:21] VITALS: TEMP 98.3
--- NOTE | 2021-05-24 14:16 | XR ---
EXAMINATION TYPE: XR chest 2V DATE OF EXAM: 05/24/2021 COMPARISON: 04/22/2021 HISTORY: 61 year-old female shortness of breath TECHNIQUE: PA and lateral views FINDINGS: Heart normal size. The interstitium remains prominent. Some mild obliquely oriented bandlike opacity at the right base likely atelectasis. Otherwise, no preet consolidation or pleural effusion. [facility] wit hin the lower thoracic spine. IMPRESSION: Interstitial prominence. Further clinical correlation recommended for possible etiologies such as mil d pulmonary vascular congestion, bronchitis, or chronic asthma.
--- NOTE | 2021-05-24 15:51 | ED ---
General Adult HPI - General Chief complaint: Shortness of Breath Stated complaint: SOB Time Seen by Provider: 05/24/21 13:41 Source: patient Mode of arrival: EMS Limitations: no limitations - History of Present Illness Initial comments: 61-year-old female presents emergency Department with chief complaint of possible covid exposure. Patient states she had a known person that had COVID- 19 who is vaccinated closure. Patient states that she feels that she developed shortness of breath. No chest pain no fevers or chills no other complaints. - Related Data Home Medications Medication Instructions Recorded Confirmed Carvedilol [Coreg] 25 mg PO BID@07,199906/07/17 05/01/21 Montelukast [Singulair] 10 mg PO DAILY@69906/28/18 05/01/21 DULoxetine HCL [Cymbalta] 60 mg PO BID@699,199908/15/18 05/01/21 allopurinoL [Zyloprim] 100 mg PO DAILY@69908/14/19 05/01/21 Diclofenac Sodium [Voltaren Gel] 2 gram TOPICAL QID PRN 04/03/20 05/01/21 Potassium Chloride ER [K-Dur 10] 10 meq PO DAILY@69904/03/20 05/01/21 Meloxicam [Mobic] 7.5 mg PO DAILY@69906/21/20 05/01/21 Mirabegron [Myrbetriq] 25 mg PO DAILY@69907/14/20 05/01/21 Rivaroxaban [Xarelto] 10 mg PO DAILY@69907/30/20 05/01/21 Lovastatin [Mevacor] 10 mg PO HS@199908/16/20 05/01/21 lamoTRIgine [LaMICtal] 200 mg PO DAILY@69908/16/20 05/01/21 Celecoxib [CeleBREX] 200 mg PO DAILY@69912/01/20 05/01/21 Gabapentin [Neurontin] 600 mg PO TID@0700,1699,199912/01/20 05/01/21 Levothyroxine Sodium 125 mcg PO DAILY@62912/01/20 05/01/21 Ergocalciferol (Vitamin D2) 1,250 mcg PO MO@69912/09/20 05/01/21 [Vitamin D2 (50,000 Iu)] Nystatin/Triamcin Cream [Mycolog 1 applic TOPICAL BID@699,199912/09/20 05/01/21 100,000-0.1 Unit/gm-% Cream] traMADol HCL 50 mg PO Q6H PRN 12/09/20 05/01/21 Aspirin EC [Ecotrin] 325 mg PO DAILY@69901/20/21 05/01/21 Clotrimazole/Betamethasone Dip 1 applic TOPICAL BID PRN 01/20/21 05/01/21 [Lotrisone Cream] Docusate [Colace] 100 mg PO BID@699,199901/20/21 05/01/21 Ibuprofen [Motrin] 600 mg PO TID PRN 01/20/21 05/01/21 Omeprazole [PriLOSEC] 40 mg PO DAILY@69901/20/21 05/01/21 Torsemide [Demadex] 50 mg PO SUTUTHSA@69901/20/21 05/01/21 Torsemide [Demadex] 100 mg PO MOWEFR@69901/20/21 05/01/21 ondansetron HCL [Zofran] 8 mg PO Q6H PRN 01/20/21 05/01/21 Albuterol Inhaler [Ventolin Hfa 2 puff INHALATION RT-QID 05/01/21 05/01/21 Inhaler] Fluticasone Nasal [place] [Flonase 1 spr EA NOSTRIL DAILY@69905/01/21 05/01/21 Nasal [place]] Vit C/E/Zn/Coppr/Lutein/Zeaxan 1 cap PO BID@07,199905/01/21 05/01/21 [Preservision Areds 2 Softgel] busPIRone HCl [Buspar] 20 mg PO BID@0700,1500 05/01/21 05/01/21 cloNIDine HCL [Kapvay] 0.1 mg PO HS@199905/01/21 05/01/21 lamoTRIgine [LaMICtal] 100 mg PO HS@169905/01/21 05/01/21 rOPINIRole HCL [Requip] 5 mg PO BID@0700,1700 08/30/21 08/30/21 Allergies Allergy/AdvReac Type Severity Reaction Status Date / Time haloperidol [From Haldol] Allergy Swelling Verified 05/01/21 16:57 hydroxyzine [From Vistaril] Allergy Rash/Hives Verified 05/01/21 16:57 iodine Allergy Swelling Verified 05/01/21 16:57 Penicillins Allergy Swelling Verified 05/01/21 16:57 prochlorperazine Allergy Rash/Hives Verified 05/01/21 16:57 Sulfa (Sulfonamide Allergy Rash/Hives Verified 05/01/21 16:57 Antibiotics) Tetanus Vaccines and Toxoid Allergy Rash/Hives Verified 05/01/21 16:57 [Tetanus Vaccines & Toxoid] trifluoperazine HCl Allergy Unknown Verified 05/01/21 16:57 [From Stelazine] Review of Systems ROS Statement: Those systems with pertinent positive or pertinent negative responses have been documented in the HPI. ROS Other: All systems not noted in ROS Statement are negative. Past Medical History Past Medical History: Asthma, Heart Failure, COPD, Diabetes Mellitus, GERD/Reflux, Hyperlipidemia, Hypertension, Musculoskeletal Disorder, Osteoarthritis (OA), Pneumonia, Pulmonary Embolus (PE), Thyroid Disorder Additional Past Medical History / Comment(s): Chronic low back and bilateral knee pain, herniated discs, RLS, leg edema, anemia, hypothyroid. Hx Gout, UTIs, Cellulitis. Cataracts, Macular Degeneration. Diabetes is diet controlled. History of Any Multi-Drug Resistant Organisms: None Reported Past Surgical History: Bariatric Surgery, Heart Catheterization, Hernia Repair, Orthopedic Surgery Additional Past Surgical History / Comment(s): Total right knee replacement, abdominal hernia repair X3, left hip repair d/t fracture, gastric bypass with revision, colonoscopy. Past Anesthesia/Blood Transfusion Reactions: No Reported Reaction Past Psychological History: Anxiety, Bipolar, Depression, Panic Disorder, PTSD Smoking Status: Never smoker Past Alcohol Use History: None Reported Past Drug Use History: None Reported - Past Family History Mother Family Medical History: Cancer Additional Family Medical History / Comment(s): Lung cancer. Father Family Medical History: Diabetes Mellitus, Deep Vein Thrombosis (DVT), Myocardial Infarction ([place]), Pulmonary Embolus Additional Family Medical History / Comment(s): "My dad from a blood clot that traveled from his leg to his lung and also caused a heart attack." Brother(s) Family Medical History: Diabetes Mellitus Sister(s) Additional Family Medical History / Comment(s): "Her heart races too fast." General Exam Limitations: no limitations General appearance: alert, in no apparent distress, obese Head exam: Present: atraumatic, normocephalic, normal inspection Neck exam: Present: normal inspection. Absent: tenderness, meningismus, lymphadenopathy Respiratory exam: Present: normal lung sounds bilaterally. Absent: respiratory distress, wheezes, rales, rhonchi, stridor Cardiovascular Exam: Present: regular rate, normal rhythm, normal heart sounds. Absent: systolic murmur, diastolic murmur, rubs, gallop, clicks GI/Abdominal exam: Present: soft, normal bowel sounds. Absent: distended, tenderness, guarding, rebound, rigid Course Vital Signs 05/24/21 13:17 Temperature 98.3 F Pulse Rate 84 Respiratory 17 Rate Blood Pressure 115/71 O2 Sat by Pulse 99 Oximetry Medical Decision Making - Medical Decision Making X-ray shows chronic changes no acute abnormality. Patient has a pending COVID- 19. Patient will be discharged in stable condition return parameters were discussed. Disposition Clinical Impression: Exposure to COVID-19 virus Disposition: HOME SELF-CARE Condition: Stable Instructions (If sedation given, give patient instructions): Coronavirus Disease 2019 (COVID-19) Additional Instructions: Please return to the Emergency Department if symptoms worsen or any other concerns. Is patient prescribed a controlled substance at d/c from ED?: No Referrals: Beau Jade MD [Primary Care Provider] - 1-2 days Time of Disposition: 15:51
[2021-05-24 16:18] VITALS: BP 118/72; PULSE 80; RESP 18
== END 2021-05-24 16:16 | disposition home or self-care (01) ==
LOC: EC 13:11
DX: R06.02 Shortness of breath (principal); Z20.822 Contact with and (suspected) exposure to COVID-19; E11.36 Type 2 diabetes mellitus with diabetic cataract; E78.5 Hyperlipidemia, unspecified; I11.0 Hypertensive heart disease with heart failure; I50.9 Heart failure, unspecified; J44.9 Chronic obstructive pulmonary disease, unspecified; K21.9 Gastro-esophageal reflux disease without esophagitis; M10.9 Gout, unspecified; M19.90 Unspecified osteoarthritis, unspecified site; E03.9 Hypothyroidism, unspecified; F31.9 Bipolar disorder, unspecified; F41.9 Anxiety disorder, unspecified; Z79.01 Long term (current) use of anticoagulants; Z79.890 Hormone replacement therapy; Z79.1 Long term (current) use of non-steroidal anti-inflammatories (NSAID); Z79.82 Long term (current) use of aspirin; Z79.899 Other long term (current) drug therapy; Z80.1 Family history of malignant neoplasm of trachea, bronchus and lung; Z82.49 Family history of ischemic heart disease and other diseases of the circulatory system; Z83.3 Family history of diabetes mellitus; Z86.711 Personal history of pulmonary embolism; Z88.0 Allergy status to penicillin; Z88.2 Allergy status to sulfonamides; Z88.8 Allergy status to other drugs, medicaments and biological substances; Z98.84 Bariatric surgery status
CPT/HCPCS: 71046; 99285; U0003

== ENCOUNTER 2021-06-08 15:28 | Emergency (ER) | payer MEDICARE, OTHER ==
[2021-06-08] MEDS ORDERED: KETOROLAC 15 MG/ML 1 ML VIAL IM STA (16:28)
--- NOTE | 2021-06-08 16:40 | ED ---
Fall HPI - General Chief Complaint: Fall Stated Complaint: L knee pain Time Seen by Provider: 06/08/21 16:01 Source: patient, EMS Mode of arrival: EMS - History of Present Illness Initial Comments: 61-year-old female patient presents to the emergency department today for evaluation of left knee and left ankle pain after a fall today. Patient states she was getting up out of a chair her left knee gave out causing the fall. States she's been having problems with knee for quite some time. States she did take Ultram around 2:00 which did not help. Fall occurred about 2:30pm. Denies hitting her head or losing consciousness. Denies any neck or back pain. Denies any numbness or tingling to the extremities. - Related Data Home Medications Medication Instructions Recorded Confirmed Carvedilol [Coreg] 25 mg PO BID@07,199906/07/17 05/01/21 Montelukast [Singulair] 10 mg PO DAILY@69906/28/18 05/01/21 DULoxetine HCL [Cymbalta] 60 mg PO BID@08/15/18 05/01/21 allopurinoL [Zyloprim] 100 mg PO DAILY@69908/14/19 05/01/21 Diclofenac Sodium [Voltaren Gel] 2 gram TOPICAL QID PRN 04/03/20 05/01/21 Potassium Chloride ER [K-Dur 10] 10 meq PO DAILY@0704/03/20 05/01/21 Meloxicam [Mobic] 7.5 mg PO DAILY@0706/21/20 05/01/21 Mirabegron [Myrbetriq] 25 mg PO DAILY@0707/14/20 05/01/21 Rivaroxaban [Xarelto] 10 mg PO DAILY@0707/30/20 05/01/21 Lovastatin [Mevacor] 10 mg PO HS@199908/16/20 05/01/21 lamoTRIgine [LaMICtal] 200 mg PO DAILY@0700 08/16/20 05/01/21 Celecoxib [CeleBREX] 200 mg PO DAILY@0700 12/01/20 05/01/21 Gabapentin [Neurontin] 600 mg PO TID@0700,170,199912/01/20 05/01/21 Levothyroxine Sodium 125 mcg PO DAILY@62912/01/20 05/01/21 Ergocalciferol (Vitamin D2) 1,250 mcg PO MO@69912/09/20 05/01/21 [Vitamin D2 (50,000 Iu)] Nystatin/Triamcin Cream [Mycolog 1 applic TOPICAL BID@699,199912/09/20 05/01/21 100,000-0.1 Unit/gm-% Cream] traMADol HCL 50 mg PO Q6H PRN 12/09/20 05/01/21 Aspirin EC [Ecotrin] 325 mg PO DAILY@69901/20/21 05/01/21 Clotrimazole/Betamethasone Dip 1 applic TOPICAL BID PRN 01/20/21 05/01/21 [Lotrisone Cream] Docusate [Colace] 100 mg PO BID@699,199901/20/21 05/01/21 Ibuprofen [Motrin] 600 mg PO TID PRN 01/20/21 05/01/21 Omeprazole [PriLOSEC] 40 mg PO DAILY@69901/20/21 05/01/21 Torsemide [Demadex] 50 mg PO SUTUTHSA@69901/20/21 05/01/21 Torsemide [Demadex] 100 mg PO MOWEFR@69901/20/21 05/01/21 ondansetron HCL [Zofran] 8 mg PO Q6H PRN 01/20/21 05/01/21 Albuterol Inhaler [Ventolin Hfa 2 puff INHALATION RT-QID 05/01/21 05/01/21 Inhaler] Fluticasone Nasal [place] [Flonase 1 spr EA NOSTRIL DAILY@69905/01/21 05/01/21 Nasal [place]] Vit C/E/Zn/Coppr/Lutein/Zeaxan 1 cap PO BID@699,199905/01/21 05/01/21 [Preservision Areds 2 Softgel] busPIRone HCl [Buspar] 20 mg PO BID@0700,1500 05/01/21 05/01/21 cloNIDine HCL [Kapvay] 0.1 mg PO HS@199905/01/21 05/01/21 lamoTRIgine [LaMICtal] 100 mg PO HS@1700 05/01/21 05/01/21 rOPINIRole HCL [Requip] 5 mg PO BID@0700,1700 05/01/21 05/01/21 Allergies Allergy/AdvReac Type Severity Reaction Status Date / Time haloperidol [From Haldol] Allergy Swelling Verified 06/08/21 15:43 hydroxyzine [From Vistaril] Allergy Rash/Hives Verified 06/08/21 15:43 iodine Allergy Swelling Verified 06/08/21 15:43 Penicillins Allergy Swelling Verified 06/08/21 15:43 prochlorperazine Allergy Rash/Hives Verified 06/08/21 15:43 Sulfa (Sulfonamide Allergy Rash/Hives Verified 06/08/21 15:43 Antibiotics) Tetanus Vaccines and Toxoid Allergy Rash/Hives Verified 06/08/21 15:43 [Tetanus Vaccines & Toxoid] trifluoperazine HCl Allergy Unknown Verified 06/08/21 15:43 [From Stelazine] Review of Systems ROS Statement: Those systems with pertinent positive or pertinent negative responses have been documented in the HPI. ROS Other: All systems not noted in ROS Statement are negative. Past Medical History Past Medical History: Asthma, Heart Failure, COPD, Diabetes Mellitus, GERD/Re flux, Hyperlipidemia, Hypertension, Musculoskeletal Disorder, Osteoarthritis (OA), Pneumonia, Pulmonary Embolus (PE), Thyroid Disorder Additional Past Medical History / Comment(s): Chronic low back and bilateral knee pain, herniated discs, RLS, leg edema, anemia, hypothyroid. Hx Gout, UTIs, Cellulitis. Cataracts, Macular Degeneration. Diabetes is diet controlled. History of Any Multi-Drug Resistant Organisms: None Reported Past Surgical History: Bariatric Surgery, Heart Catheterization, Hernia Repair, Orthopedic Surgery Additional Past Surgical History / Comment(s): Total right knee replacement, abdominal hernia repair X3, left hip repair d/t fracture, gastric bypass with revision, colonoscopy. Past Anesthesia/Blood Transfusion Reactions: No Reported Reaction Past Psychological History: Anxiety, Bipolar, Depression, Panic Disorder, PTSD Smoking Status: Never smoker Past Alcohol Use History: None Reported Past Drug Use History: None Reported - Past Family History Mother Family Medical History: Cancer Additional Family Medical History / Comment(s): Lung cancer. Father Family Medical History: Diabetes Mellitus, Deep Vein Thrombosis (DVT), Myocardial Infarction (MA), Pulmonary Embolus Additional Family Medical History / Comment(s): "My dad from a blood clot that traveled from his leg to his lung and also caused a heart attack." Brother(s) Family Medical History: Diabetes Mellitus Sister(s) Additional Family Medical History / Comment(s): "Her heart races too fast." General Exam General appearance: alert, in no apparent distress, other (This is a well- developed, well-nourished adult female patient in no acute distress. Vital signs upon presentation are temperature 97.8F, pulse 74, respirations 18, blood pressure 146/78, pulse ox 100% on room air.) Eye exam: Present: normal appearance, PERRL, EOMI. Absent: scleral icterus, conjunctival injection, periorbital swelling ENT exam: Present: normal exam, normal oropharynx, mucous membranes moist Neck exam: Present: normal inspection, full ROM, other (Nontender, no step-off, no deformity to firm midline palpation of the posterior cervical spine. Full range of motion without pain or limitation.) Respiratory exam: Present: normal lung sounds bilaterally. Absent: respiratory distress, wheezes, rales, rhonchi, stridor Cardiovascular Exam: Present: regular rate, normal rhythm, normal heart sounds. Absent: systolic murmur, diastolic murmur, rubs, gallop, clicks GI/Abdominal exam: Present: soft, normal bowel sounds. Absent: distended, tenderness, guarding, rebound, rigid Extremities exam: Present: normal inspection, full ROM, tenderness (Left anterior knee tenderness), normal capillary refill, other (Skin to the left leg is pink, warm, dry. Cap refill less than 3 seconds. Pedal pulse tibial pulses 2+.). Absent: pedal edema, joint swelling, calf tenderness Back exam: Present: normal inspection, other (Nontender, no step-off, no deformity to firm midline palpation of the thoracic and lumbar vertebrae. Full range of motion without pain or limitation.). Absent: vertebral tenderness Neurological exam: Present: alert, oriented X3, CN II-XII intact Psychiatric exam: Present: normal affect, normal mood Skin exam: Present: warm, dry, intact, normal color. Absent: rash Course Vital Signs 06/08/21 06/08/21 06/08/21 15:43 19:01 20:41 Temperature 97.8 F 97.6 F 97.7 F Pulse Rate 74 83 79 Respiratory 18 18 24 Rate Blood Pressure 146/78 173/92 144/87 O2 Sat by Pulse 100 97 97 Oximetry Medical Decision Making - Medical Decision Making 61-year-old female patient presented to the emergency department today for evaluation of left knee pain left ankle pain. Physical examination did reveal tenderness over the left anterior knee left medial and lateral ankle. Neurovascular status is intact. X-rays were obtained and showed possible avulsion fracture to the medial malleolus and an abnormality in the talus. Did obtain CT of the ankle which showed the avulsion fracture was chronic and no evidence for fracture of the talus at this time. I did discuss findings and results with the patient. Her symptoms are felt related to arthritis. She is given pain medicine here. She was discharged. Her primary care physician for recheck in 1-2 days. Return parameters discussed in detail. She verbalizes understanding and agrees with this plan. My attending is Dr. Allen. - Radiology Data Radiology results: report reviewed, image reviewed X-ray of the left ankle showed tiny avulsion injury medial malleolus overlying soft tissue swelling and slight irregularity involving the talus. CT of the left ankle was obtained showed tiny favored to be chronic avulsion injury from the medial malleolus. No definite acute fracture dislocation seen in the talus. Advanced osteoarthrosis as described in the body of the report. 3 views of the left knee are obtained. Report was reviewed in its entirety. T here shows osteoarthrosis no acute fracture dislocation. Very small knee joint effusion. Disposition Clinical Impression: Arthritis of left ankle, Arthritis of left knee Disposition: HOME SELF-CARE Condition: Good Instructions (If sedation given, give patient instructions): Arthritis (ED) Additional Instructions: Continue home medication as needed for pain. Follow-up through primary care physician in the [facility] for further evaluation as needed. Return for any new, worsening, or concerning symptoms. Is patient prescribed a controlled substance at d/c from ED?: No Referrals: Sajan Pruitt MD [Primary Care Provider] - 1-2 days Time of Disposition: 20:29
--- NOTE | 2021-06-08 17:15 | XR ---
EXAMINATION TYPE: XR ankle complete LT DATE OF EXAM: 06/08/2021 COMPARISON: NONE HISTORY: 61 years Female. STUDY INDICATION GIVEN: fall pain . TECHNIQUE: Ankle 3 radiographs. IMPRESSION: Tiny avulsion injury at the medial malleolus with marked overlying soft tissue swelling. Soft tissue swelling along the lateral malleolus though less than the contralateral side. There is slight irregularity involving the medial aspect of the talus with an adjacent linear osseous fragment. Talar fracture cannot BE entirely excluded. Ankle mortise is preserved. Enthesopathic changes at the Achilles insertion. Intracalcaneal spur noted. Overall there is mild diffuse soft tissue swelling involving the lower extremity.
--- NOTE | 2021-06-08 17:17 | XR ---
EXAMINATION TYPE: XR knee complete LT DATE OF EXAM: 06/08/2021 COMPARISON: 04/01/2021 HISTORY: 61 years Female. STUDY LEG GIVEN: fall; knee pain . TECHNIQUE: 3 radiographs of the left knee IMPRESSION: Very small knee joint effusion. No acute fracture or dislocation seen. Moderate severe tricompartmental osteoarthrosis seen. Soft tissue ossification seen in the medial and lateral aspect of the proximal leg. Mild diffuse soft tissue swelling noted. Overall the appearance of the knee is not significantly changed compared to the prior study.
[2021-06-08] MEDS ORDERED: HYDROcodone/APAP 5-325MG 1 EACH TAB PO STA (19:16)
--- NOTE | 2021-06-08 20:26 | CT ---
EXAMINATION TYPE: CT ankle LT wo con DATE OF EXAM: 06/08/2021 COMPARISON: None HISTORY: Possible talar/medial malleolus fracture on xr. Fall. TECHNIQUE: CT scan of the left ankle without contour CT DLP: 277.5 mGycm Automated exposure control for dose reduction was used. FINDINGS: There is diffuse osteopenia. There are degenerative changes at the ankle joint, subtalar joint, calca [place] cuboidal within the tarsal and tarsometatarsal joints. There is a tiny osseous fragment inferior to the medial malleolus. There is a tiny osseous fragment lateral to the navicular bone and proximal to the third tarsal metatarsal. There is focal small soft tissue ossification the aspect of the hindfoot. Ankle mortise is an tibia fibular syndesmosis acutely intact. No acute fracture seen in the talus. There is a well-corticated slight irregularity involving the med ial aspect of the talus at the medial clear space compatible with finding on radiograph. There is diffuse mild soft tissue swelling involving the lower extremity. There are scattered soft ti ssue calcific foci in the medial aspect of the distal leg. IMPRESSION: 1. TINY -FAVORED TO BE CHRONIC- AVULSION INJURY FROM THE MEDIAL MALLEOLUS. 2. NO DEFINITE ACUTE FRACTURE OR DISLOCATION SEEN IN THE TALUS. 3. ADVANCED OSTEOARTHROSIS DESCRIBED IN BODY OF REPORT. 3. OTHER FINDINGS DESCRIBED IN BODY OF REPORT LIKELY CHRONIC.
[2021-06-08 20:42] VITALS: BP 144/87; PULSE 79; RESP 24; TEMP 97.7
== END 2021-06-08 20:41 | disposition home or self-care (01) ==
LOC: EC 15:28
DX: M17.12 Unilateral primary osteoarthritis, left knee (principal); M19.072 Primary osteoarthritis, left ankle and foot; I11.0 Hypertensive heart disease with heart failure; I50.9 Heart failure, unspecified; J45.909 Unspecified asthma, uncomplicated; K21.9 Gastro-esophageal reflux disease without esophagitis; M19.90 Unspecified osteoarthritis, unspecified site; E07.9 Disorder of thyroid, unspecified; E11.36 Type 2 diabetes mellitus with diabetic cataract; E78.5 Hyperlipidemia, unspecified; M10.9 Gout, unspecified; F41.9 Anxiety disorder, unspecified; F31.9 Bipolar disorder, unspecified; F43.12 Post-traumatic stress disorder, chronic; Z79.82 Long term (current) use of aspirin; Z88.0 Allergy status to penicillin; Z88.2 Allergy status to sulfonamides; Z88.7 Allergy status to serum and vaccine; Z86.711 Personal history of pulmonary embolism; Z87.440 Personal history of urinary (tract) infections; Z98.84 Bariatric surgery status; Z96.651 Presence of right artificial knee joint
CPT/HCPCS: 99284; 96372; 73562; 73610; 73700; J1885

== ENCOUNTER 2021-07-03 09:19 | Inpatient (IN) | payer MEDICARE, OTHER ==
[2021-07-03 09:29] LABS: Glucose,Whole Blood 76 mg/dL (75-99)
[2021-07-03] MEDS ORDERED: MORPHINE SULFATE 4 MG/ML SYRINGE IVP STA ×2 (09:33→11:15)
[2021-07-03] MEDS ORDERED: ONDANSETRON 4 MG/2 ML VIAL IVP STA (09:50)
--- NOTE | 2021-07-03 10:01 | XR ---
EXAMINATION TYPE: XR chest 1V portable DATE OF EXAM: 07/03/2021 COMPARISON: 05/24/2021 HISTORY: Pain TECHNIQUE: Single frontal view of the chest is obtained. FINDINGS: The heart is enlarged and there is a coarsened interstitium. Technique and rotation limits assessment of the left lung base. Could not exclude an area of consolidation. Osseous structures venkata ssly intact. IMPRESSION: 1. Cardiomegaly. Coarsened interstitium may reflect chronic interstitial lung disease
--- NOTE | 2021-07-03 10:02 | XR ---
EXAMINATION TYPE: XR pelvis AP view DATE OF EXAM: 07/03/2021 COMPARISON: NONE HISTORY: Pain Findings: Postsurgical change involving the left hip arthropathy of bilateral hip. Technique limits assessment of the iliac bones. No definite acute fracture seen. IMPRESSION: 1. Limited exam demonstrates no definite acute fracture.
[2021-07-03 10:13] LABS: ALT 13 U/L (4-34); AST 30 U/L (14-36); African American GFR (CKD) >90 (>60 ml/min/1.73 sqM); Albumin 3.8 g/dL (3.5-5.0); Alcohol <10 mg/dL; Alkaline Phosphatase 121 U/L (38-126); Anion Gap 8 mmol/L; Blood Urea Nitrogen 30 mg/dL (7-17); Calcium 9.3 mg/dL (8.4-10.2); Carbon Dioxide 24 mmol/L (22-30); Chloride 104 mmol/L (98-107); Glucose 106 mg/dL (74-99); Non-African American GFR(CKD) >90 (>60 ml/min/1.73 sqM); Potassium 4.8 mmol/L (3.5-5.1); Sodium 136 mmol/L (137-145); Total Bilirubin 0.5 mg/dL (0.2-1.3); Total Protein 6.7 g/dL (6.3-8.2)
--- NOTE | 2021-07-03 10:13 | CT ---
EXAMINATION TYPE: CT brain elissaine wo con DATE OF EXAM: 07/03/2021 COMPARISON: Brain 04/19/2020 HISTORY: 61-year-old female with pain after Fall CT DLP: 1615.4 mGycm Automated exposure control for dose reduction was used. Technique: Examination of the head was done in axial plane without intravenous contrast. Coronal and sagittal reconstructions performed. CT of the cervical spine was obtained in axial plane without intravenous injection of contrast mater ial. Coronal and sagittal reformatted images were obtained from the axial views for evaluation of f ractures, spinal alignment and canal. FINDINGS: Head: There is no evidence of acute intracranial hemorrhage, acute ischemic changes, mass, mass-effect, or extra-axial fluid collection. There is no effacement of cerebral sulci or basal subarachnoid cister ns. There is no hydrocephalus. There is no midline shift. Kamara-white matter distinction is preserv ed. Normal variation of hyperostosis frontalis interna. Facial bones reported separately. Mastoid air cells are well pneumatized. No calvarial fracture. Cervical spine: No craniocervical junction or abnormality, predental space widening, or prevertebral soft tissue swel ling. Some degenerative changes at the C1 dens articulation. No acute fracture of the cervical spine. Alignment is maintained. Retropharyngeal course of the bilat eral common carotid arteries. No evident canal compromise by CT. Assessment of the spinal canal especially from C4 and below is jain ited due to artifact from large body habitus and patient's shoulders. Sagittal and coronal reformatted images confirm above findings. COMBINED IMPRESSION: 1. No acute intracranial abnormality seen. 2. No acute fracture or malalignment of the cervical spine. 3. Facial bones reported separately.
[2021-07-03 10:15] LABS: Anisocytosis Slight; Basophils % (A) 0 %; Eosinophils # (A) 0.2 k/uL (0-0.7); Eosinophils % (A) 2 %; HCT 29.8 % (34.0-46.0); HGB 9.9 gm/dL (11.4-16.0); Lymphocytes # (A) 1.1 k/uL (1.0-4.8); Lymphocytes % (A) 16 %; MCH 28.5 pg (25.0-35.0); MCHC 33.4 g/dL (31.0-37.0); MCV 85.5 fL (80.0-100.0); Mean Platelet Volume 7.9; Monocytes # (A) 0.4 k/uL (0-1.0); Monocytes % (A) 5 %; Neutrophils # (A) 5.2 k/uL (1.3-7.7); Neutrophils % (A) 73 %; Platelet Count 312 k/uL (150-450); RBC 3.48 m/uL (3.80-5.40); RDW 16.2 % (11.5-15.5); WBC 7.1 k/uL (3.8-10.6)
--- NOTE | 2021-07-03 10:16 | ED ---
General Adult HPI - General Chief complaint: Fall Stated complaint: Fall Time Seen by Provider: 07/03/21 09:24 Source: patient, RN notes reviewed, old records reviewed Mode of arrival: EMS - History of Present Illness Initial comments: Patient is a 61-year-old female with past medical history for psychiatric history, asthma, heart failure, COPD, diabetes, hypertension, and prior PE on Xeralto who presents to the emergency department after a mechanical fall. Patient presents as a priority 2 trauma activation, as she fell down a ramp which is slightly higher than standing on blood thinners. She states she slipped and lost her footing. She may have experienced loss of consciousness. Patient is uncertain. She states she feels like she hit her face on her walker and then on the ground. She is currently very anxious and crying out in pain. Primary complaints are her left shoulder and arm, bilateral knees, as well as thoracic back. She denies any weakness or numbness. She also has facial pain and bruising over the right side of her face. She states she cannot receive the tetanus vaccine and she is ALLERGIC reaction. She is uncertain when her last tetanus vaccine was. She states ALLERGIC reaction to severe swelling and difficulty breathing. She denies any chest pain, shortness of breath, fevers, chills, cough. Denies any abdominal pain, nausea, vomiting. She denies any visual deficits. She otherwise has no acute complaint at this time. Patient presents as a priority 2 trauma activation. - Related Data Home Medications Medication Instructions Recorded Confirmed Carvedilol [Coreg] 25 mg PO BID@0706/07/17 07/03/21 Montelukast [Singulair] 10 mg PO DAILY@0706/28/18 07/03/21 DULoxetine HCL [Cymbalta] 60 mg PO BID@0708/15/18 07/03/21 allopurinoL [Zyloprim] 100 mg PO DAILY@0700 08/14/19 07/03/21 Diclofenac Sodium [Voltaren Gel] 2 gram TOPICAL QID PRN 04/03/20 07/03/21 Potassium Chloride ER [K-Dur 10] 10 meq PO DAILY@0700 04/03/20 07/03/21 Meloxicam [Mobic] 7.5 mg PO DAILY@0700 06/21/20 07/03/21 Mirabegron [Myrbetriq] 25 mg PO DAILY@69907/14/20 07/03/21 Rivaroxaban [Xarelto] 10 mg PO DAILY@69907/30/20 07/03/21 Lovastatin [Mevacor] 10 mg PO HS@199908/16/20 07/03/21 lamoTRIgine [LaMICtal] 200 mg PO DAILY@69908/16/20 07/03/21 Gabapentin [Neurontin] 600 mg PO TID@699,1699,199912/01/20 07/03/21 Levothyroxine Sodium 125 mcg PO DAILY@62912/01/20 07/03/21 Ergocalciferol (Vitamin D2) 1,250 mcg PO MO@69912/09/20 07/03/21 [Vitamin D2 (50,000 Iu)] Nystatin/Triamcin Cream [Mycolog 1 applic TOPICAL BID@699,199912/09/20 07/03/21 100,000-0.1 Unit/gm-% Cream] traMADol HCL 50 mg PO TID@07,1699,199912/09/20 07/03/21 Aspirin EC [Ecotrin] 325 mg PO DAILY@69901/20/21 07/03/21 Clotrimazole/Betamethasone Dip 1 applic TOPICAL BID PRN 01/20/21 07/03/21 [Lotrisone Cream] Docusate [Colace] 100 mg PO BID@699,199901/20/21 07/03/21 Ibuprofen [Motrin] 600 mg PO TID PRN 01/20/21 07/03/21 Omeprazole [PriLOSEC] 40 mg PO DAILY@69901/20/21 07/03/21 Torsemide [Demadex] 50 mg PO SUTUTHSA@69901/20/21 07/03/21 Torsemide [Demadex] 100 mg PO MOWEFR@69901/20/21 07/03/21 ondansetron HCL [Zofran] 8 mg PO Q6H PRN 01/20/21 07/03/21 Albuterol Inhaler [Ventolin Hfa 2 puff INHALATION RT-QID PRN 05/01/21 07/03/21 Inhaler] Fluticasone Nasal [place] [Flonase 1 spr EA NOSTRIL DAILY@0700 05/01/21 07/03/21 Nasal [place]] Vit C/E/Zn/Coppr/Lutein/Zeaxan 1 cap PO BID@07,199905/01/21 07/03/21 [Preservision Areds 2 Softgel] busPIRone HCl [Buspar] 20 mg PO BID@0700,1500 05/01/21 07/03/21 cloNIDine HCL [Kapvay] 0.1 mg PO HS@199905/01/21 07/03/21 lamoTRIgine [LaMICtal] 100 mg PO HS@1700 05/01/21 07/03/21 rOPINIRole HCL [Requip] 5 mg PO BID@0700,1700 05/01/21 07/03/21 Biotene Liquid Dry Mouth 10 ml PO TID@0700,1700,199907/03/21 07/03/21 Ferrous Sulfate [Feosol] 325 mg PO DAILY@0700 07/03/21 07/03/21 Vitamin B Complex 1 cap PO DAILY@0700 07/03/21 07/03/21 Allergies Allergy/AdvReac Type Severity Reaction Status Date / Time buspirone [From BuSpar] Allergy Unknown Verified 07/03/21 11:49 haloperidol [From Haldol] Allergy Swelling Verified 07/03/21 11:49 hydroxyzine [From Vistaril] Allergy Rash/Hives Verified 07/03/21 11:49 iodine Allergy Swelling Verified 07/03/21 11:49 Penicillins Allergy Swelling Verified 07/03/21 11:49 prochlorperazine Allergy Rash/Hives Verified 07/03/21 11:49 Sulfa (Sulfonamide Allergy Rash/Hives Verified 07/03/21 11:49 Antibiotics) Tetanus Vaccines and Toxoid Allergy Rash/Hives Verified 07/03/21 11:49 [Tetanus Vaccines & Toxoid] trifluoperazine HCl Allergy Unknown Verified 07/03/21 11:49 [From Stelazine] Review of Systems ROS Statement: Those systems with pertinent positive or pertinent negative responses have been documented in the HPI. Review of Systems: CONST: Denies fever EYES: Denies blurry vision ENT: Denies nasal congestion C/V: Denies Chest pain RESP: Denies shortness of breath GI: Denies abdominal pain : Denies dysuria SKIN: Denies rash. MSK: Endorses joint pain NEURO: Denies headache ROS Other: All systems not noted in ROS Statement are negative. Past Medical History Past Medical History: Asthma, Heart Failure, COPD, Diabetes Mellitus, GE RD/Reflux, Hyperlipidemia, Hypertension, Musculoskeletal Disorder, Osteoarthritis (OA), Pneumonia, Pulmonary Embolus (PE), Thyroid Disorder Additional Past Medical History / Comment(s): Chronic low back and bilateral knee pain, herniated discs, RLS, leg edema, anemia, hypothyroid. Hx Gout, UTIs, Cellulitis. Cataracts, Macular Degeneration. Diabetes is diet controlled. History of Any Multi-Drug Resistant Organisms: None Reported Past Surgical History: Bariatric Surgery, Heart Catheterization, Hernia Repair, Orthopedic Surgery Additional Past Surgical History / Comment(s): Total right knee replacement, abdominal hernia repair X3, left hip repair d/t fracture, gastric bypass with revision, colonoscopy. Past Anesthesia/Blood Transfusion Reactions: No Reported Reaction Past Psychological History: Anxiety, Bipolar, Depression, Panic Disorder, PTSD Smoking Status: Never smoker Past Alcohol Use History: None Reported Past Drug Use History: None Reported - Past Family History Mother Family Medical History: Cancer Additional Family Medical History / Comment(s): Lung cancer. Father Family Medical History: Diabetes Mellitus, Deep Vein Thrombosis (DVT), Myoc ardial Infarction (PR), Pulmonary Embolus Additional Family Medical History / Comment(s): "My dad from a blood clot that traveled from his leg to his lung and also caused a heart attack." Brother(s) Family Medical History: Diabetes Mellitus Sister(s) Additional Family Medical History / Comment(s): "Her heart races too fast." General Exam - General Exam Comments Initial Comments: General: Appears in moderate distress secondary to pain. HEAD: Normal with no signs of head trauma. Negative Hu sign. Negative raccoon eyes. Patient does have right sided facial tenderness to palpation, particularly over the right mandible and maxillary bone. There is bruising as well as abrasions. On oral exam, patient also has some what appears to be mild Juarez type I fractures to multiple teeth. Some teeth or chipped as well. It is difficult to ascertain acute versus chronic. EYES: PERRLA, EOMI, conjunctiva normal, no discharge. Pupils are 3 mm and equal bilaterally. ENT: Hearing grossly intact, normal oropharynx. Trachea is midline. RESPIRATORY: Clear breath sounds bilaterally. No wheezes, rales, or rhonchi. C/V: Regular rate and rhythm. S1 and S2 auscultated, no edema, peripheral pulses 2+ and intact throughout ABD: Abd is soft, nontender, nondistended EXT: Reduced range of motion of the left shoulder, bilateral knees secondary to pain. She is tender to palpation over the left posterior elbow, left humerus, left posterior shoulder. She is also tender to palpation over the left knee as well as a right knee anteriorly and inferiorly over the tibia and fibula as well. No obvious deformity. Exam is difficult as the patient has chronically obese extremities. There is bruising over the anterior left tibia and fibula. No skin breakage. Patient has no midline cervical or lumbar spine tenderness to palpation but does have some midline thoracic spine tenderness to palpation. SKIN: Bruising over the right side of the face as well as over the left knee status post fall. NEURO: Alert and oriented 4. Cranial nerves II to cover intact. GCS is 15. No focal sensory strength deficits. Patient ambulate with a walker at baseline. Course Vital Signs 07/03/21 09:21 Temperature 98.5 F Pulse Rate 65 Respiratory 20 Rate Blood Pressure 123/64 O2 Sat by Pulse 100 Oximetry Medical Decision Making - Medical Decision Making Based on mechanism of fall, as well as her presentation and history, patient was made a priority 2 trauma activation. The on-call trauma doctor, Dr. Ge was made aware. He called back and spoke with my bill recapitulation clerk. Trauma laboratory studies will be obtained. CT head, face, C-spine, T-spine will be obtained. We'll obtain x-rays of the left shoulder and arm as well as the bilateral legs. Chest and pelvis will also be obtained. Tetanus vaccination will be held as the patient has what sounds like an anaphylactic reaction to it. She will be admission for millions IV morphine for pain management. Patient was in agreement with this plan. Patient's pelvic and chest x-rays revealed no acute injuries. Head CT revealed no acute intracranial process. Cervical spine CT showed no acute fracture or subluxation. CT of the face revealed extensive bruising along the lateral aspect the right side of the face and overlying the right jaw with no acute underlying facial fracture. There is a 2.1 cm hematoma. Thoracic spine CT revealed no acute fracture or subluxation. Laboratory studies were remarkable for a normocytic anemia with a hemoglobin of 9.9 which is chronic. Remainder of her labs are unremarkable. Since x-rays revealed no acute fracture, subluxation, or injury. Reevaluation and patient is only willing to bear weight and due to her extreme pain I discussed admission for pain control. She was in agreement this plan. I spoke with the admitting team, trauma surgery under Dr. Ge who accepted the patient. I spoke with Dr. Pope was consulted for medical management. He was in agreement with this plan. At this time patient did complain of some mild chest pain which seems to be reproducible secondary to trauma over the left side of her chest, however we will obtain a screening EKG and troponin at this time. Screening EKG showed normal sinus rhythm with no signs of acute ischemia and troponin was negative. Patient was therefore admitted in stable condition for pain control. - Lab Data Result diagrams: 07/03/21 09:38 07/03/21 09:38 Lab Results 07/03/21 07/03/21 07/03/21 Range/Units 09:27 09:38 09:38 WBC 7.1 (3.8-10.6) k/uL RBC 3.48 L (3.80-5.40) m/uL Hgb 9.9 L (11.4-16.0) gm/dL Hct 29.8 L (34.0-46.0) % MCV 85.5 (80.0-100.0) fL MCH 28.5 (25.0-35.0) pg MCHC 33.4 (31.0-37.0) g/dL RDW 16.2 H (11.5-15.5) % Plt Count 312 (150-450) k/uL MPV 7.9 Neutrophils % 73 % Lymphocytes % 16 % Monocytes % 5 % Eosinophils % 2 % Basophils % 0 % Neutrophils # 5.2 (1.3-7.7) k/uL Lymphocytes # 1.1 (1.0-4.8) k/uL Monocytes # 0.4 (0-1.0) k/uL Eosinophils # 0.2 (0-0.7) k/uL Basophils # 0.0 (0-0.2) k/uL Anisocytosis Slight PT 10.8 (9.0-12.0) sec INR 1.0 (<1.2) APTT 28.3 (22.0-30.0) sec Sodium (137-145) mmol/L Potassium (3.5-5.1) mmol/L Chloride (98-107) mmol/L Carbon Dioxide (22-30) mmol/L Anion Gap mmol/L BUN (7-17) mg/dL Creatinine (0.52-1.04) mg/dL Est GFR (CKD-EPI)AfAm (>60 ml/min/1.73 sqM) Est GFR (CKD-EPI)NonAf (>60 ml/min/1.73 sqM) Glucose (74-99) mg/dL POC Glucose (mg/dL) 76 (75-99) mg/dL POC Glu Leather Currier ID Brandy Almeida Calcium (8.4-10.2) mg/dL Total Bilirubin (0.2-1.3) mg/dL AST (14-36) U/L ALT (4-34) U/L Alkaline Phosphatase (38-126) U/L Troponin I (0.000-0.034) ng/mL Total Protein (6.3-8.2) g/dL Albumin (3.5-5.0) g/dL Urine Color Urine Appearance (Clear) Urine pH (5.0-8.0) Ur Specific [place] (1.001-1.035) Urine Protein (Negative) Urine Glucose (UA) (Negative) Urine Ketones (Negative) Urine Blood (Negative) Urine Nitrite (Negative) Urine Bilirubin (Negative) Urine Urobilinogen (<2.0) mg/dL Ur Leukocyte Esterase (Negative) Urine Opiates Screen (NotDetected) Ur Oxycodone Screen (NotDetected) Urine Methadone Screen (NotDetected) Ur Propoxyphene Screen (NotDetected) Ur Barbiturates Screen (NotDetected) U Tricyclic Antidepress (NotDetected) Ur Phencyclidine Scrn (NotDetected) Ur Amphetamines Screen (NotDetected) U Methamphetamines Scrn (NotDetected) U Benzodiazepines Scrn (NotDetected) Urine Cocaine Screen (NotDetected) U Marijuana (THC) Screen (NotDetected) Serum Alcohol mg/dL Blood Type Blood Type Confirm Blood Type Recheck Bld Type Recheck Status Antibody Screen Spec Expiration Date 07/03/21 07/03/21 07/03/21 Range/Units 09:38 09:38 09:38 WBC (3.8-10.6) k/uL RBC (3.80-5.40) m/uL Hgb (11.4-16.0) gm/dL Hct (34.0-46.0) % MCV (80.0-100.0) fL MCH (25.0-35.0) pg MCHC (31.0-37.0) g/dL RDW (11.5-15.5) % Plt Count (150-450) k/uL MPV Neutrophils % % Lymphocytes % % Monocytes % % Eosinophils % % Basophils % % Neutrophils # (1.3-7.7) k/uL Lymphocytes # (1.0-4.8) k/uL Monocytes # (0-1.0) k/uL Eosinophils # (0-0.7) k/uL Basophils # (0-0.2) k/uL Anisocytosis PT (9.0-12.0) sec INR (<1.2) APTT (22.0-30.0) sec Sodium 136 L (137-145) mmol/L Potassium 4.8 (3.5-5.1) mmol/L Chloride 104 (98-107) mmol/L Carbon Dioxide 24 (22-30) mmol/L Anion Gap 8 mmol/L BUN 30 H (7-17) mg/dL Creatinine 0.73 (0.52-1.04) mg/dL Est GFR (CKD-EPI)AfAm >90 (>60 ml/min/1.73 sqM) Est GFR (CKD-EPI)NonAf >90 (>60 ml/min/1.73 sqM) Glucose 106 H (74-99) mg/dL POC Glucose (mg/dL) (75-99) mg/dL POC Glu Leather Currier ID Calcium 9.3 (8.4-10.2) mg/dL Total Bilirubin 0.5 (0.2-1.3) mg/dL AST 30 (14-36) U/L ALT 13 (4-34) U/L Alkaline Phosphatase 121 (38-126) U/L Troponin I (0.000-0.034) ng/mL Total Protein 6.7 (6.3-8.2) g/dL Albumin 3.8 (3.5-5.0) g/dL Urine Color Light Yellow Urine Appearance Clear (Clear) Urine pH 5.0 (5.0-8.0) Ur Specific [place] 1.005 (1.001-1.035) Urine Protein Negative (Negative) Urine Glucose (UA) Negative (Negative) Urine Ketones Negative (Negative) Urine Blood Negative (Negative) Urine Nitrite Negative (Negative) Urine Bilirubin Negative (Negative) Urine Urobilinogen <2.0 (<2.0) mg/dL Ur Leukocyte Esterase Negative (Negative) Urine Opiates Screen Detected H (NotDetected) Ur Oxycodone Screen Not Detected (NotDetected) Urine Methadone Screen Not Detected (NotDetected) Ur Propoxyphene Screen Not Detected (NotDetected) Ur Barbiturates Screen Not Detected (NotDetected) U Tricyclic Antidepress Not Detected (NotDetected) Ur Phencyclidine Scrn Not Detected (NotDetected) Ur Amphetamines Screen Not Detected (NotDetected) U Methamphetamines Scrn Not Detected (NotDetected) U Benzodiazepines Scrn Not Detected (NotDetected) Urine Cocaine Screen Not Detected (NotDetected) U Marijuana (THC) Screen Not Detected (NotDetected) Serum Alcohol <10 mg/dL Blood Type Blood Type Confirm O Positive Blood Type Recheck Bld Type Recheck Status Antibody Screen Spec Expiration Date 07/03/21 07/03/21 Range/Units 09:38 10:14 WBC (3.8-10.6) k/uL RBC (3.80-5.40) m/uL Hgb (11.4-16.0) gm/dL Hct (34.0-46.0) % MCV (80.0-100.0) fL MCH (25.0-35.0) pg MCHC (31.0-37.0) g/dL RDW (11.5-15.5) % Plt Count (150-450) k/uL MPV Neutrophils % % Lymphocytes % % Monocytes % % Eosinophils % % Basophils % % Neutrophils # (1.3-7.7) k/uL Lymphocytes # (1.0-4.8) k/uL Monocytes # (0-1.0) k/uL Eosinophils # (0-0.7) k/uL Basophils # (0-0.2) k/uL Anisocytosis PT (9.0-12.0) sec INR (<1.2) APTT (22.0-30.0) sec Sodium (137-145) mmol/L Potassium (3.5-5.1) mmol/L Chloride (98-107) mmol/L Carbon Dioxide (22-30) mmol/L Anion Gap mmol/L BUN (7-17) mg/dL Creatinine (0.52-1.04) mg/dL Est GFR (CKD-EPI)AfAm (>60 ml/min/1.73 sqM) Est GFR (CKD-EPI)NonAf (>60 ml/min/1.73 sqM) Glucose (74-99) mg/dL POC Glucose (mg/dL) (75-99) mg/dL POC Glu Leather Currier ID Calcium (8.4-10.2) mg/dL Total Bilirubin (0.2-1.3) mg/dL AST (14-36) U/L ALT (4-34) U/L Alkaline Phosphatase (38-126) U/L Troponin I <0.012 (0.000-0.034) ng/mL Total Protein (6.3-8.2) g/dL Albumin (3.5-5.0) g/dL Urine Color Urine Appearance (Clear) Urine pH (5.0-8.0) Ur Specific [place] (1.001-1.035) Urine Protein (Negative) Urine Glucose (UA) (Negative) Urine Ketones (Negative) Urine Blood (Negative) Urine Nitrite (Negative) Urine Bilirubin (Negative) Urine Urobilinogen (<2.0) mg/dL Ur Leukocyte Esterase (Negative) Urine Opiates Screen (NotDetected) Ur Oxycodone Screen (NotDetected) Urine Methadone Screen (NotDetected) Ur Propoxyphene Screen (NotDetected) Ur Barbiturates Screen (NotDetected) U Tricyclic Antidepress (NotDetected) Ur Phencyclidine Scrn (NotDetected) Ur Amphetamines Screen (NotDetected) U Methamphetamines Scrn (NotDetected) U Benzodiazepines Scrn (NotDetected) Urine Cocaine Screen (NotDetected) U Marijuana (THC) Screen (NotDetected) Serum Alcohol mg/dL Blood Type O Positive Blood Type Confirm Blood Type Recheck No Previous Record Bld Type Recheck Status CABO Indicated Antibody Screen NEGATIVE Spec Expiration Date 07/06/20212313 - EKG Data -: EKG Interpreted by Me EKG Comments: 12-lead Electrocardiogram Interpretation Note EKG was reviewed and interpreted by myself. 12-lead ECG performed at 1244 is interpreted by me as revealing normal sinus rhythm at a rate of 69 beats per minute. Hardy is normal. VT interval is 142 ms, QRS duration is 90 ms, QTc is 445 ms.. There were no ST or T wave abnormalities to suggest myocardial ischemia or injury. R wave progression across the precordium was satisfactory. By my interpretation this EKG is non-diagnostic for acute ischemia. Disposition Clinical Impression: Fall, Joint pain, Traumatic hematoma of face, Musculoskeletal pain, Debility Disposition: ADMITTED IP TO THIS [facility] Condition: Stable
--- NOTE | 2021-07-03 10:18 | CT ---
EXAMINATION TYPE: CT facial bones wo con DATE OF EXAM: 07/03/2021 COMPARISON: None HISTORY: 61-year-old female with pain and left-sided facial bruising after Fall TECHNIQUE: Contiguous axial scanning of the facial bones without IV contrast. Coronal reconstructions performed. CT DLP: Included in brain/[employer] Automated exposure control for dose reduction was used. FINDINGS: Extensive soft tissue bruising along the lateral aspect of the right face and right jaw. Small areas of focal hematoma formation measure up to 2.1 cm. The mandible and TMJs as well as the pterygoid plates and zygomatic arches appear intact. Paranasal sinuses are well pneumatized without air-fluid level. Nasal bones as well as the orbits and globes appear intact. No facial bone fracture is seen. IMPRESSION: EXTENSIVE BRUISING ALONG THE LATERAL ASPECT OF THE RIGHT SIDE OF THE FACE AND OVERLYING THE RIGHT JAW . NO UNDERLYING ACUTE FACIAL BONE FRACTURE SEEN.
[2021-07-03 10:20] LABS: Partial Thromboplastin Time 28.3 sec (22.0-30.0); Prothrombin Time 10.8 sec (9.0-12.0)
--- NOTE | 2021-07-03 10:23 | CT ---
EXAMINATION TYPE: CT thoracic spine wo con DATE OF EXAM: 07/03/2021 COMPARISON: None HISTORY: 61-year-old female pain after Fall TECHNIQUE: Contiguous axial scanning of the thoracic spine without IV contrast. Coronal and sagittal reconstructions performed. CT DLP: 2897.8 mGycm Automated exposure control for dose reduction was used. FINDINGS: There is facet arthropathy throughout the upper thoracic spine. [facility] within the mid and lower thoraci c spine. Vertebral body heights are preserved and alignment is maintained. No prevertebral or paravertebral soft tissue abnormality is identified. Underlying cardiomegaly. There are some postsurgical changes in the upper abdomen, possible bariatric surgery. IMPRESSION: FACET ARTHROPATHY THROUGHOUT THE UPPER THORACIC SPINE AND DISH WITHIN THE MID AND LOWER THORACIC SPIN E. NO ACUTE FRACTURE OR MALALIGNMENT IDENTIFIED OF THE THORACIC SPINE.
[2021-07-03 11:29] LABS: Appearance,Urine Clear (Clear); Bilirubin,Urine Negative (Negative); Blood,Urine Negative (Negative); Color,Urine Light Yellow; Glucose,Urine (UA) Negative (Negative); Ketones,Urine Negative (Negative); Leukocyte Esterase,Urine Negative (Negative); Nitrite,Urine Negative (Negative); Protein,Urine Negative (Negative); Specific Gravity,Urine 1.005 (1.001-1.035); Urobilinogen,Urine <2.0 mg/dL (<2.0)
--- NOTE | 2021-07-03 11:48 | XR ---
EXAMINATION TYPE: XR elbow complete LT DATE OF EXAM: 07/03/2021 COMPARISON: NONE HISTORY: Pain FINDINGS: Three views of the elbow demonstrate no pathologic joint effusion. The osseous structures are intact . There is no acute fracture or dislocation. IMPRESSION: 1. No acute fracture or dislocation. If symptoms persist follow-up study in 7 to 10 days could be ob tained.
[2021-07-03 11:50] LABS: Amphetamine Screen,Urine Not Detected (NotDetected); Barbiturate Screen,Urine Not Detected (NotDetected); Benzodiazepines Screen,Urine Not Detected (NotDetected); Cocaine Screen,Urine Not Detected (NotDetected); Methadone Screen, Urine Not Detected (NotDetected); Opiate Screen,Urine Detected (NotDetected); Oxycodone Screen, Urine Not Detected (NotDetected); Phencyclidine Screen,Urine Not Detected (NotDetected); Tricyclic Antidepressant,Urine Not Detected (NotDetected); Urn Cannabinoid Scrn Not Detected (NotDetected)
--- NOTE | 2021-07-03 11:51 | XR ---
EXAMINATION TYPE: XR femur bilateral DATE OF EXAM: 07/03/2021 COMPARISON: NONE HISTORY: Pain TECHNIQUE: 9 views of the femur were obtained bilaterally. FINDINGS: Postsurgical change involving the left femur. This appears intact. Arthropathy of the bilat eral hip. Exam is limited by resolution. Postsurgical change involving the right knee which appears i ntact. Severe arthropathy involving the left knee with complete loss of joint space laterally. Cystic changes involving the lateral margin of the tibia and femur. Soft tissue calcifications are noted. N o definite acute fracture. IMPRESSION: 1. No definite acute fracture. 2. Severe arthropathy left hip 3. Bilateral hip arthropathy.
--- NOTE | 2021-07-03 11:53 | XR ---
EXAMINATION TYPE: XR humerus LT DATE OF EXAM: 07/03/2021 COMPARISON: NONE HISTORY: Pain TECHNIQUE: 2 views submitted. FINDINGS: The osseous structures are intact and the joint spaces are preserved. Mild diffuse osteopenia and ar thropathy of the AC joint. IMPRESSION: 1. No acute fracture or dislocation.
--- NOTE | 2021-07-03 11:55 | XR ---
EXAMINATION TYPE: XR knee complete bilateral DATE OF EXAM: 07/03/2021 COMPARISON: NONE HISTORY: Pain TECHNIQUE: Three views are submitted. FINDINGS: Postsurgical change involving the right knee. There is severe and complete loss of joint space involv ing the left knee. There is remodeling of the proximal tibia. Cystic changes involving the femur and proximal tibia. Narrowing of the patellofemoral joint on the left. Postsurgical change in the right. Soft tissue calcifications and diffuse osteopenia noted. Osseous structures are intact. No acute fra cture seen. IMPRESSION: 1. No acute fracture or dislocation. 2. Severe arthropathy of the left knee. 3. Postsurgical change right knee.
--- NOTE | 2021-07-03 11:57 | XR ---
EXAMINATION TYPE: XR shoulder complete LT DATE OF EXAM: 07/03/2021 COMPARISON: NONE HISTORY: fall, pain TECHNIQUE: Three views are submitted. FINDINGS: The osseous structures are intact. There is no acute fracture or dislocation. AC joint arthropathy. Diffuse osteopenia. IMPRESSION: 1. No acute process.
--- NOTE | 2021-07-03 11:58 | XR ---
EXAMINATION TYPE: XR tibia fibula bilateral DATE OF EXAM: 07/03/2021 COMPARISON: NONE HISTORY: Pain TECHNIQUE: Two views are submitted. FINDINGS: The osseous structures are intact. Soft tissue calcification noted and there are severe arthropathy o f the lateral compartment of the knee. Postsurgical change involving the right knee. Calcaneal spurs are noted. IMPRESSION: 1. No acute osseous abnormality.
[2021-07-03] MEDS ORDERED: NALOXONE 0.4 MG/ML 1 ML VIAL IV PRN (12:36)
--- NOTE | 2021-07-03 16:00 | P.GSHP ---
History of Present Illness H&P Date: 07/03/21 CHIEF COMPLAINT: Fall HISTORY OF PRESENT ILLNESS: This is a 61-year-old female who has known history of morbid obesity and PE and on Xarelto. She presented to the emergency department after a fall down the bus wrapped. Patient reports that she uses a walker. She hit her right side of her face on the walker and then landed on the cement ground on her abdomen. Patient reports "I'd belly flopped onto the cement." Patient states that she hurts all over. But she is now complaining of abdominal pain in the center of the abdomen. She has been having dry heaves. She denies passing any gas. Patient had multiple areas x-rayed no evidence of fractures. She is on Xarelto, aspirin, Mobic and Motrin at home. These medications are currently held. Hemoglobin 9.9 on admission. Patient does re ports loss of consciousness with her fall. Tetanus vaccine was not given due to possible anaphylactic ALLERGY reaction. She is admitted to the hospital as a priority 2 trauma. PAST MEDICAL HISTORY: Asthma, Heart Failure, COPD, Diabetes Mellitus, GERD/Reflux, Hyperlipidemia, Hypertension, Musculoskeletal Disorder, Osteoarthritis (OA), Pneumonia, Pulmonary Embolus (PE), Thyroid Disorder, chronic low back and bilateral knee pain, herniated discs, RLS, leg edema, anemia, hypothyroid. Hx Gout, UTIs, Cellulitis. Cataracts, Macular Degeneration. Diabetes is diet controlled. Anxiety, bipolar, depression, panic disorder, PTSD PAST SURGICAL HISTORY: Gastric bypass with revision, colonoscopy, cholecystectomy abdominal hernia repair right knee replacement heart catheterization MEDICATIONS: See list. ALLERGIES: See list. SOCIAL HISTORY: No illicit drug use. REVIEW OF SYSTEMS: CONSTITUTIONAL: Denies fever or chills. HEENT: Denies blurred vision, vision changes, or eye pain. Denies hemoptysis CARDIOVASCULAR: Denies chest pain or pressure. RESPIRATORY: No shortness of breath. GASTROINTESTINAL: See HPI for pertinent findings HEMATOLOGIC: Denies bleeding disorders. GENITOURINARY: Denies any blood in urine or increased urinary frequency. SKIN: Denies pruitis. Denies rash. PHYSICAL EXAM: VITAL SIGNS: Reviewed GENERAL: Well-developed in no acute distress. HEENT: No sclera icterus. Extraocular movements grossly intact. Moist buccal mucosa. Head is normocephalic. No nasal drainage. Patient has bruising on the right cheek. Patient has had trauma to her teeth. ABDOMEN: Soft. Obese. Nondistended. Tenderness to palpation of the mid abdomen on the right side of the umbilicus. There is a small circular bruising on the left of the umbilicus. NEUROLOGIC: Alert and oriented. Cranial nerves II through XII grossly intact. LABORATORY DATA: WBC is 7.1 hemoglobin 9.9 platelets 312 INR 1.0 Sodium 136 potassium 4.8 BUN 30 creatinine 0.73 Glucose 106 Troponin negative UA negative Drug screen positive for opiates Alcohol level less than 10 COVID-19 not detected IMAGING: Pelvic x-ray negative for fracture Computed tomography scan of head and cervical spine no acute intracranial abnormality. No acute fracture or malalignment of cervical spine. Face CT extensive bruising along the lateral aspect of the right side of the face and underlying the right jaw. No underlying acute facial bone fracture seen. Chest x-ray cardiomegaly. Coarsened interstitium may reflect chronic interstitial lung disease Thoracic spine CT facet arthropathy throughout the upper thoracic spine and within the mid and lower thoracic spine. No acute fracture or malalignment Left elbow x-ray no acute fracture or dislocation X-ray of bilateral femur no acute fractures severe arthropathy of left hip. Bilateral hip arthropathy Left humerus x-ray no acute fracture or dislocation X-ray of the knee bilaterally no acute fracture or dislocation Left shoulder x-ray no acute process X-rayed tibia-fibula bilaterally no acute abnormality EKG normal sinus rhythm ASSESSMENT: 1. Fall with no evidence of fractures on imaging 2. Traumatic hematoma to the right side of the face 3. Abdominal pain 4. Musculoskeletal pain 5. History of PE on Xarelto at home 6. Morbid obesity 7. Anemia 8. Possible loss of consciousness after fall PLAN: -Check computed tomography scan of abdomen and pelvis with oral contrast iodine ALLERGY regarding patient's abdominal pain -Medicine consult for medical management -Continue to hold Xarelto, Mobic, Motrin and aspirin -Continue pain medications as needed -Continue antiemetics -Continue supportive care -Continue ice packs as needed -Continue regular diet -Repeat labs in a.m. -GI prophylaxis Protonix and DVT prophylaxis SCDs Physician [employer] note has been reviewed by physician. Signing provider agrees with the documented findings, assessment, and plan of care. Past Medical History Past Medical History: Asthma, Heart Failure, COPD, Diabetes Mellitus, GERD/Reflux, Hyperlipidemia, Hypertension, Musculoskeletal Disorder, Osteoarthritis (OA), Pneumonia, Pulmonary Embolus (PE), Thyroid Disorder Additional Past Medical History / Comment(s): Chronic low back and bilateral knee pain, herniated discs, RLS, leg edema, anemia, hypothyroid. Hx Gout, UTIs, Cellulitis. Cataracts, Macular Degeneration. Diabetes is diet controlled. History of Any Multi-Drug Resistant Organisms: None Reported Past Surgical History: Bariatric Surgery, Heart Catheterization, Hernia Repair, Orthopedic Surgery Additional Past Surgical History / Comment(s): Total right knee replacement, abdominal hernia repair X3, left hip repair d/t fracture, gastric bypass with revision, colonoscopy. Past Anesthesia/Blood Transfusion Reactions: No Reported Reaction Past Psychological History: Anxiety, Bipolar, Depression, Panic Disorder, PTSD Additional Psychological History / Comment(s): Borderline personality disorder. Pt has a legal guardian, Taty Mosher. Hx attempted suicide with OD of Tramadol. Smoking Status: Never smoker Past Alcohol Use History: None Reported Additional Past Alcohol Use History / Comment(s): In -' was an everyday drinker Past Drug Use History: None Reported - Past Family History Mother Family Medical History: Cancer Additional Family Medical History / Comment(s): Lung cancer. Father Family Medical History: Diabetes Mellitus, Deep Vein Thrombosis (DVT), Myocardial Infarction ([place]), Pulmonary Embolus Additional Family Medical History / Comment(s): "My dad from a blood clot that traveled from his leg to his lung and also caused a heart attack." Brother(s) Family Medical History: Diabetes Mellitus Sister(s) Additional Family Medical History / Comment(s): "Her heart races too fast." Medications and Allergies Home Medications Medication Instructions Recorded Confirmed Type Carvedilol [Coreg] 25 mg PO BID@0700,199906/07/17 07/03/21 History Montelukast [Singulair] 10 mg PO DAILY@0700 06/28/18 07/03/21 History DULoxetine HCL [Cymbalta] 60 mg PO BID@0708/15/18 07/03/21 History allopurinoL [Zyloprim] 100 mg PO DAILY@0700 08/14/19 07/03/21 History Diclofenac Sodium [Voltaren Gel] 2 gram TOPICAL QID PRN 04/03/20 07/03/21 History Potassium Chloride ER [K-Dur 10] 10 meq PO DAILY@69904/03/20 07/03/21 History Meloxicam [Mobic] 7.5 mg PO DAILY@69906/21/20 07/03/21 History Mirabegron [Myrbetriq] 25 mg PO DAILY@69907/14/20 07/03/21 History Rivaroxaban [Xarelto] 10 mg PO DAILY@69907/30/20 07/03/21 History Lovastatin [Mevacor] 10 mg PO HS@199908/16/20 07/03/21 History lamoTRIgine [LaMICtal] 200 mg PO DAILY@69908/16/20 07/03/21 History Gabapentin [Neurontin] 600 mg PO TID@07,1699,199912/01/20 07/03/21 History Levothyroxine Sodium 125 mcg PO DAILY@62912/01/20 07/03/21 History Ergocalciferol (Vitamin D2) 1,250 mcg PO MO@69912/09/20 07/03/21 History [Vitamin D2 (50,000 Iu)] Nystatin/Triamcin Cream [Mycolog 1 applic TOPICAL BID@699,199912/09/20 07/03/21 History 100,000-0.1 Unit/gm-% Cream] traMADol HCL 50 mg PO TID@0700,1699,199912/09/20 07/03/21 History Aspirin EC [Ecotrin] 325 mg PO DAILY@69901/20/21 07/03/21 History Clotrimazole/Betamethasone Dip 1 applic TOPICAL BID PRN 01/20/21 07/03/21 History [Lotrisone Cream] Docusate [Colace] 100 mg PO BID@699,199901/20/21 07/03/21 History Ibuprofen [Motrin] 600 mg PO TID PRN 01/20/21 07/03/21 History Omeprazole [PriLOSEC] 40 mg PO DAILY@69901/20/21 07/03/21 History Torsemide [Demadex] 50 mg PO SUTUTHSA@69901/20/21 07/03/21 History Torsemide [Demadex] 100 mg PO MOWEFR@0700 01/20/21 07/03/21 History ondansetron HCL [Zofran] 8 mg PO Q6H PRN 01/20/21 07/03/21 History Albuterol Inhaler [Ventolin Hfa 2 puff INHALATION RT-QID PRN 05/01/21 07/03/21 History Inhaler] Fluticasone Nasal [place] [Flonase 1 spr EA NOSTRIL DAILY@0700 05/01/21 07/03/21 History Nasal [place]] Vit C/E/Zn/Coppr/Lutein/Zeaxan 1 cap PO BID@07,199905/01/21 07/03/21 History [Preservision Areds 2 Softgel] busPIRone HCl [Buspar] 20 mg PO BID@0700,1500 05/01/21 07/03/21 History cloNIDine HCL [Kapvay] 0.1 mg PO HS@199905/01/21 07/03/21 History lamoTRIgine [LaMICtal] 100 mg PO HS@0 05/01/21 07/03/21 History rOPINIRole HCL [Requip] 5 mg PO BID@0700,1700 05/01/21 07/03/21 History Biotene Liquid Dry Mouth 10 ml PO TID@0700,1700,199907/03/21 07/03/21 History Ferrous Sulfate [Feosol] 325 mg PO DAILY@0700 07/03/21 07/03/21 History Vitamin B Complex 1 cap PO DAILY@0700 07/03/21 07/03/21 History Allergies Allergy/AdvReac Type Severity Reaction Status Date / Time buspirone [From BuSpar] Allergy Unknown Verified 07/03/21 11:49 haloperidol [From Haldol] Allergy Swelling Verified 07/03/21 11:49 hydroxyzine [From Vistaril] Allergy Rash/Hives Verified 07/03/21 11:49 iodine Allergy Swelling Verified 07/03/21 11:49 Penicillins Allergy Swelling Verified 07/03/21 11:49 prochlorperazine Allergy Rash/Hives Verified 07/03/21 11:49 Sulfa (Sulfonamide Allergy Rash/Hives Verified 07/03/21 11:49 Antibiotics) Tetanus Vaccines and Toxoid Allergy Rash/Hives Verified 11/01/21 11:49 [Tetanus Vaccines & Toxoid] trifluoperazine HCl Allergy Unknown Verified 07/03/21 11:49 [From Stelazine] Surgical - Exam Vital Signs Temp Pulse Resp BP Pulse Ox 98.5 F 65 20 123/64 100 07/03/21 09:21 07/03/21 09:21 07/03/21 09:21 07/03/21 09:21 07/03/21 09:21 Results - Labs 07/03/21 09:38 07/03/21 09:38 Abnormal Lab Results - Last 24 Hours (Table) 07/03/21 07/03/21 07/03/21 Range/Units 09:38 09:38 09:38 RBC 3.48 L (3.80-5.40) m/uL Hgb 9.9 L (11.4-16.0) gm/dL Hct 29.8 L (34.0-46.0) % RDW 16.2 H (11.5-15.5) % Sodium 136 L (137-145) mmol/L BUN 30 H (7-17) mg/dL Glucose 106 H (74-99) mg/dL Urine Opiates Screen Detected H (NotDetected) Diabetes panel 07/03/21 Range/Units 09:38 Sodium 136 L (137-145) mmol/L Potassium 4.8 (3.5-5.1) mmol/L Chloride 104 (98-107) mmol/L Carbon Dioxide 24 (22-30) mmol/L BUN 30 H (7-17) mg/dL Creatinine 0.73 (0.52-1.04) mg/dL Glucose 106 H (74-99) mg/dL Calcium 9.3 (8.4-10.2) mg/dL AST 30 (14-36) U/L ALT 13 (4-34) U/L Alkaline Phosphatase 121 (38-126) U/L Total Protein 6.7 (6.3-8.2) g/dL Albumin 3.8 (3.5-5.0) g/dL Calcium panel 07/03/21 Range/Units 09:38 Calcium 9.3 (8.4-10.2) mg/dL Albumin 3.8 (3.5-5.0) g/dL Pituitary panel 07/03/21 Range/Units 09:38 Sodium 136 L (137-145) mmol/L Potassium 4.8 (3.5-5.1) mmol/L Chloride 104 (98-107) mmol/L Carbon Dioxide 24 (22-30) mmol/L BUN 30 H (7-17) mg/dL Creatinine 0.73 (0.52-1.04) mg/dL Glucose 106 H (74-99) mg/dL Calcium 9.3 (8.4-10.2) mg/dL Adrenal panel 07/03/21 Range/Units 09:38 Sodium 136 L (137-145) mmol/L Potassium 4.8 (3.5-5.1) mmol/L Chloride 104 (98-107) mmol/L Carbon Dioxide 24 (22-30) mmol/L BUN 30 H (7-17) mg/dL Creatinine 0.73 (0.52-1.04) mg/dL Glucose 106 H (74-99) mg/dL Calcium 9.3 (8.4-10.2) mg/dL Total Bilirubin 0.5 (0.2-1.3) mg/dL AST 30 (14-36) U/L ALT 13 (4-34) U/L Alkaline Phosphatase 121 (38-126) U/L Total Protein 6.7 (6.3-8.2) g/dL Albumin 3.8 (3.5-5.0) g/dL
[2021-07-03] MEDS: PANTOPRAZOLE 40 MG TABLET PO SCH (16:20)
[2021-07-03] MEDS: MORPHINE SULFATE 4 MG/ML SYRINGE IV PRN (16:20)
[2021-07-03] MEDS: BARIUM SULFATE 450 ML ORAL.SUSP BOTTLE PO PRN (16:20)
[2021-07-03] MEDS ORDERED: DICLOFENAC SODIUM GEL 100 GM TUBE TOPICAL PRN (17:00)
[2021-07-03] MEDS ORDERED: ONDANSETRON 4 MG TAB PO PRN (17:00)
[2021-07-03] MEDS: traMADol 50 MG TAB PO SCH ×2 (17:26→19:32)
[2021-07-03] MEDS: lamoTRIgine 100 MG TAB PO SCH (17:26)
[2021-07-03] MEDS: GABAPENTIN 300 MG CAP PO SCH ×2 (17:26→19:32)
--- NOTE | 2021-07-03 17:27 | P.CONS ---
History of Present Illness - Reason for Consult Consult date: 07/03/21 Medical management Requesting physician: Marlon Ge - Chief Complaint Fall - History of Present Illness This is a 61-year-old patient who follows with visiting physicians. Chronic stable medical conditions include asthma, CHF, GERD, hypertension, hyperlipidemia, osteoarthritis, chronic pulmonary embolism, hypothyroid, chronic low back and bilateral knee pain, when he did this, restless leg syndrome, chronic lower extremity edema, hypothyroid, gout macular degeneration. Patient's had bariatric surgery. Gastric bypass revision. Bipolar. Patient has a legal guardian Taty Nomi. Patient was getting off a bus on the plank when she lost her balance and fell f orward hitting her face on the walker and also fell forwards. She did not pass out. Patient having chest pain on the right side tender. Patient also had the right side of her face. Some bruising on the face. His bleeding in the mouth. X-rays in the ER did not report any fractures. Patient is also complaining of abdominal pain where she fell face forward. Because of medical debility patient 's had falls in the past. Review of systems: GEN.: None EYES: None HEENT: Presumed the right side of the face NECK: None RESPIRATORY: None CARDIOVASCULAR: None GASTROINTESTINAL: None GENITOURINARY: None MUSCULOSKELETAL: Pain in several joints, right chest wall LYMPHATICS: None HEMATOLOGICAL: None PSYCHIATRY: Anxious NEUROLOGICAL: Does use a walker Past medical history to include: Asthma, CHF, COPD, diabetes, GERD, hypertension, hyperlipidemia, osteoarthritis, pulmonary embolism, hypothyroid, chronic low back pain bilaterally pain, herniated disc, restless leg syndrome, but extremity edema, hypothyroid, gout, macular degeneration, pediatric surgery, with gastric bypass and revision, bipol ar disorder, PTSD, moderate to severe aortic stenosis Social history: Nonsmoker. Was every day drinker in the late 80s. Has a legal guardian Taty Mosher Family history: Lung cancer Physical examination: VITAL SIGNS: 97.8, 76, 16, 1:30/80, 98% GENERAL: BMI 60.4, laying in bed awake, but uncomfortable. EYES: Pupils equal. Conjunctiva normal. HEENT: External appearance of nose and ears normal, oral cavity grossly normal bruising on the right side of the face. Some hematoma. Dry blood in the mouth. Around the teeth. NECK: JVD unable to assess; masses not palpable. HEART: First and second heart sounds are normal; nonpitting edema. LUNGS: Respiratory rate normal; decreased breath sounds. CHEST wall: Reproducible pain on the anterior right chest wall ABDOMEN: Soft, superficial abdominal wall tenderness, liver spleen not palpable, no masses palpable. PSYCH: Alert and oriented x3; mood and affect anxiousl. NEUROLOGICAL: Cranial nerves grossly intact; no facial asymmetry, power and sensation grossly intact. LYMPHATICS: No lymph nodes palpable in the axilla and neck INVESTIGATIONS, reviewed in the clinical context: WBC 7.1 hemoglobin 9.9 platelets 312 sodium 136 potassium 4.8 INR 1 BUN 30 creatinine 0.73 UA negative Urine drug screen positive for opiates Coronavirus [PCR]: Not detected EKG tracing personally reviewed by me-normal sinus rhythm Chest x-ray film personally reviewed by me-underpenetrated. Cardiomegaly. Prominent interstitium. Thoracic spine CT and x-ray of the face elbow femur humerus knee shoulder tibia- fibula pelvis all negative for fracture 2-D echocardiogram [June 2020]: Moderate concentric LVH, EF 50-55%, moderate severe aortic stenosis Assessment and plan: -Mechanical fall off to patient. Balance coming out of ramp on the bus falling face forward edition the walker that on the cement concrete on the belly. Several x-rays computed tomography scan were done does not show any fracture. -Acute right-sided chest wall pain from blunt trauma. Reproducible. -Chronic intermittent asthma, controlled Albuterol as needed. Singulair 10 mg daily -Diabetes mellitus type 2, diet controlled Follow Accu-Chek -GERD Prilosec 40 mg daily -Essential hypertension Coreg 25 mg twice a day. Hold clonidine -Bipolar disorder Cymbalta 60 mg twice a day BuSpar 20 mg twice a day -Hyperlipidemia Mevacor 10 mg daily at bedtime -Primary osteoarthritis multiple joints bilateral Pain medications as needed -Chronic pulmonary embolism On xarelto 10 mg daily -Hypothyroid Synthroid 125 g daily -Restless leg syndrome 5 mg twice a day -Moderate to severe aortic stenosis Follow clinically -Bilateral lower extremity edema, significant contribution from venous insufficiency due to obesity Sudhakar wrap bilaterally. Cutback dose of Demadex. -Chronic gout Allopurinol 100 mg a day -Chronic urinary stress incontinence myrbetriq 25 mg daily -Legal guardian, Taty Mosher Home medications be resumed. We'll hold off patient's clonidine. Cutback the dose of Demadex. Sudhakar wrap both the legs. PTOT. Fall precautions. Patient may use heating pad for the right chest wall. Care was discussed with the patient and questions answered. Thank you Dr. Ge Past Medical History Past Medical History: Asthma, Heart Failure, COPD, Diabetes Mellitus, GERD/Reflux, Hyperlipidemia, Hypertension, Musculoskeletal Disorder, Osteoarthritis (OA), Pneumonia, Pulmonary Embolus (PE), Thyroid Disorder Additional Past Medical History / Comment(s): Chronic low back and bilateral knee pain, herniated discs, RLS, leg edema, anemia, hypothyroid. Hx Gout, UTIs, Cellulitis. Cataracts, Macular Degeneration. Diabetes is diet controlled. History of Any Multi-Drug Resistant Organisms: None Reported Past Surgical History: Bariatric Surgery, Heart Catheterization, Hernia Repair, Orthopedic Surgery Additional Past Surgical History / Comment(s): Total right knee replacement, abdominal hernia repair X3, left hip repair d/t fracture, gastric bypass with revision, colonoscopy. Past Anesthesia/Blood Transfusion Reactions: No Reported Reaction Past Psychological History: Anxiety, Bipolar, Depression, Panic Disorder, PTSD Additional Psychological History / Comment(s): Borderline personality disorder. Pt has a legal guardian, Taty Mosher. Hx attempted suicide with OD of Tramadol. Smoking Status: Never smoker Past Alcohol Use History: None Reported Additional Past Alcohol Use History / Comment(s): In -' was an everyday drinker Past Drug Use History: None Reported - Past Family History Mother Family Medical History: Cancer Additional Family Medical History / Comment(s): Lung cancer. Father Family Medical History: Diabetes Mellitus, Deep Vein Thrombosis (DVT), Myocardial Infarction ([place]), Pulmonary Embolus Additional Family Medical History / Comment(s): "My dad from a blood clot that traveled from his leg to his lung and also caused a heart attack." Brother(s) Family Medical History: Diabetes Mellitus Sister(s) Additional Family Medical History / Comment(s): "Her heart races too fast." Medications and Allergies Home Medications Medication Instructions Recorded Confirmed Type Carvedilol [Coreg] 25 mg PO BID@0700,199906/07/17 07/03/21 History Montelukast [Singulair] 10 mg PO DAILY@0700 06/28/18 07/03/21 History DULoxetine HCL [Cymbalta] 60 mg PO BID@07,199908/15/18 07/03/21 History allopurinoL [Zyloprim] 100 mg PO DAILY@69908/14/19 07/03/21 History Diclofenac Sodium [Voltaren Gel] 2 gram TOPICAL QID PRN 04/03/20 07/03/21 History Potassium Chloride ER [K-Dur 10] 10 meq PO DAILY@69904/03/20 07/03/21 History Meloxicam [Mobic] 7.5 mg PO DAILY@69906/21/20 07/03/21 History Mirabegron [Myrbetriq] 25 mg PO DAILY@69907/14/20 07/03/21 History Rivaroxaban [Xarelto] 10 mg PO DAILY@69907/30/20 07/03/21 History Lovastatin [Mevacor] 10 mg PO HS@199908/16/20 07/03/21 History lamoTRIgine [LaMICtal] 200 mg PO DAILY@69908/16/20 07/03/21 History Gabapentin [Neurontin] 600 mg PO TID@0700,170,199912/01/20 07/03/21 History Levothyroxine Sodium 125 mcg PO DAILY@0612/01/20 07/03/21 History Ergocalciferol (Vitamin D2) 1,250 mcg PO MO@69912/09/20 07/03/21 History [Vitamin D2 (50,000 Iu)] Nystatin/Triamcin Cream [Mycolog 1 applic TOPICAL BID@699,199912/09/20 07/03/21 History 100,000-0.1 Unit/gm-% Cream] traMADol HCL 50 mg PO TID@0700,170,199912/09/20 07/03/21 History Aspirin EC [Ecotrin] 325 mg PO DAILY@69901/20/21 07/03/21 History Clotrimazole/Betamethasone Dip 1 applic TOPICAL BID PRN 01/20/21 07/03/21 History [Lotrisone Cream] Docusate [Colace] 100 mg PO BID@0700,199901/20/21 07/03/21 History Ibuprofen [Motrin] 600 mg PO TID PRN 01/20/21 07/03/21 History Omeprazole [PriLOSEC] 40 mg PO DAILY@0700 01/20/21 07/03/21 History Torsemide [Demadex] 50 mg PO SUTUTHSA@69901/20/21 07/03/21 History Torsemide [Demadex] 100 mg PO MOWEFR@69901/20/21 07/03/21 History ondansetron HCL [Zofran] 8 mg PO Q6H PRN 01/20/21 07/03/21 History Albuterol Inhaler [Ventolin Hfa 2 puff INHALATION RT-QID PRN 05/01/21 07/03/21 History Inhaler] Fluticasone Nasal [place] [Flonase 1 spr EA NOSTRIL DAILY@69905/01/21 07/03/21 History Nasal [place]] Vit C/E/Zn/Coppr/Lutein/Zeaxan 1 cap PO BID@0700,199905/01/21 07/03/21 History [Preservision Areds 2 Softgel] busPIRone HCl [Buspar] 20 mg PO BID@0700,1500 05/01/21 07/03/21 History cloNIDine HCL [Kapvay] 0.1 mg PO HS@199905/01/21 07/03/21 History lamoTRIgine [LaMICtal] 100 mg PO HS@1700 05/01/21 07/03/21 History rOPINIRole HCL [Requip] 5 mg PO BID@0700,1700 05/01/21 07/03/21 History Biotene Liquid Dry Mouth 10 ml PO TID@0700,1700,199907/03/21 07/03/21 History Ferrous Sulfate [Feosol] 325 mg PO DAILY@0700 07/03/21 07/03/21 History Vitamin B Complex 1 cap PO DAILY@0700 07/03/21 07/03/21 History Allergies Allergy/AdvReac Type Severity Reaction Status Date / Time buspirone [From BuSpar] Allergy Unknown Verified 07/03/21 11:49 haloperidol [From Haldol] Allergy Swelling Verified 07/03/21 11:49 hydroxyzine [From Vistaril] Allergy Rash/Hives Verified 07/03/21 11:49 iodine Allergy Swelling Verified 07/03/21 11:49 Penicillins Allergy Swelling Verified 07/03/21 11:49 prochlorperazine Allergy Rash/Hives Verified 07/03/21 11:49 Sulfa (Sulfonamide Allergy Rash/Hives Verified 07/03/21 11:49 Antibiotics) Tetanus Vaccines and Toxoid Allergy Rash/Hives Verified 07/03/21 11:49 [Tetanus Vaccines & Toxoid] trifluoperazine HCl Allergy Unknown Verified 07/03/21 11:49 [From Stelazine] Physical Exam Vitals: Vital Signs Temp Pulse Pulse Resp BP BP Pulse Ox 07/03/21 15:25 16 07/03/21 15:00 97.9 F 79 17 122/70 98 07/03/21 14:18 97.8 F 76 16 130/80 98 07/03/21 09:21 98.5 F 65 20 123/64 100 Intake and Output 07/03/21 07/03/21 07/03/21 06:59 14:59 22:59 Intake Total 240 Balance 240 Intake: Oral 240 Other: Voiding Method Indwelling Catheter Weight 164.654 kg Results CBC & Chem 7: 07/03/21 09:38 07/03/21 09:38 Labs: Abnormal Lab Results - Last 24 Hours (Table) 07/03/21 07/03/21 07/03/21 Range/Units 09:38 09:38 09:38 RBC 3.48 L (3.80-5.40) m/uL Hgb 9.9 L (11.4-16.0) gm/dL Hct 29.8 L (34.0-46.0) % RDW 16.2 H (11.5-15.5) % Sodium 136 L (137-145) mmol/L BUN 30 H (7-17) mg/dL Glucose 106 H (74-99) mg/dL Urine Opiates Screen Detected H (NotDetected)
[2021-07-03] MEDS: DULoxetine HCL 60 MG CAPSULE.DR PO SCH (19:32)
[2021-07-03] MEDS: carvediloL 12.5 MG TAB PO SCH ×2 (19:32→19:42)
[2021-07-03] MEDS: ATORVASTATIN 10 MG TAB PO SCH (19:32)
[2021-07-03] MEDS: VIT A,C & E-LUTEIN-MINERALS 1 EACH TAB PO SCH (19:32)
[2021-07-03] MEDS: NYSTATIN 100,000UNIT/GM CREAM 30 GM TUBE TOPICAL SCH (19:48)
[2021-07-03] MEDS: TRIAMCINOLONE 0.1% CREAM 80 GM TUBE TOPICAL SCH (19:48)
[2021-07-03] MEDS: DOCUSATE 100 MG CAP PO SCH (19:49)
[2021-07-03] MEDS ORDERED: NYSTAT-TRIAMCIN 100,000-0.1 UNIT/GM-% CREAM 30 GM TUBE TOPICAL SCH (20:00)
[2021-07-04] MEDS: MORPHINE SULFATE 4 MG/ML SYRINGE IV PRN ×3 (03:07→16:23)
[2021-07-04] MEDS: LEVOTHYROXINE 125 MCG TAB PO SCH (05:39)
[2021-07-04] MEDS ORDERED: NON FORMULARY DRUG (Omeprazole 40 MG Capsule.Dr) PO SCH (07:00)
[2021-07-04] MEDS ORDERED: NON FORMULARY DRUG (Vitamin B Complex [Vitamin B Complex] 1 EACH Capsule) PO SCH (07:00)
[2021-07-04] MEDS ORDERED: TORSEMIDE 20 MG TAB PO SCH ×2 (07:00→09:00)
[2021-07-04] MEDS: ONDANSETRON 4 MG/2 ML VIAL IVP PRN ×2 (08:13→18:13)
[2021-07-04] MEDS ORDERED: BARIUM SULFATE 450 ML ORAL.SUSP BOTTLE PO PRN (08:46)
[2021-07-04] MEDS: allopurinoL 100 MG TAB PO SCH (09:00)
[2021-07-04] MEDS: busPIRone HCl 10 MG TAB PO SCH ×2 (09:01→16:11)
[2021-07-04] MEDS: DULoxetine HCL 60 MG CAPSULE.DR PO SCH ×2 (09:01→20:48)
[2021-07-04] MEDS: carvediloL 12.5 MG TAB PO SCH ×2 (09:01→20:48)
[2021-07-04] MEDS: FERROUS SULFATE 325 MG TAB PO SCH (09:02)
[2021-07-04] MEDS: GABAPENTIN 300 MG CAP PO SCH ×3 (09:02→20:48)
[2021-07-04] MEDS: DOCUSATE 100 MG CAP PO SCH ×2 (09:02→20:48)
[2021-07-04] MEDS: lamoTRIgine 100 MG TAB PO SCH ×2 (09:03→18:00)
[2021-07-04] MEDS: MELOXICAM 7.5 MG TAB PO SCH (09:04)
[2021-07-04] MEDS: NON FORMULARY DRUG (Mirabegron [Myrbetriq] 25 MG Tab.Er.24h) PO SCH (09:05)
[2021-07-04] MEDS: POTASSIUM CHLORIDE ER 10 MEQ TAB.ER.PRT PO SCH (09:05)
[2021-07-04] MEDS: RIVAROXABAN 10 MG TAB PO SCH (09:05)
[2021-07-04] MEDS: traMADol 50 MG TAB PO SCH ×3 (09:05→20:48)
[2021-07-04] MEDS: MONTELUKAST 10 MG TAB PO SCH (09:05)
[2021-07-04] MEDS: PANTOPRAZOLE 40 MG TABLET PO SCH (09:07)
[2021-07-04] MEDS: TRIAMCINOLONE 0.1% CREAM 80 GM TUBE TOPICAL SCH ×2 (09:53→20:50)
[2021-07-04] MEDS: NYSTATIN 100,000UNIT/GM CREAM 30 GM TUBE TOPICAL SCH ×2 (09:53→20:50)
[2021-07-04] MEDS: VIT A,C & E-LUTEIN-MINERALS 1 EACH TAB PO SCH ×2 (09:54→20:49)
[2021-07-04 09:55] LABS: Basophils # (A) 0.02 X 10*3/uL (0.00-0.10); Basophils % (A) 0.3 %; Eosinophils # (A) 0.07 X 10*3/uL (0.04-0.35); Eosinophils % (A) 1.2 %; HCT 30.2 % (37.2-46.3); Lymphocytes # (A) 1.29 X 10*3/uL (0.90-5.00); Lymphocytes % (A) 21.6 %; MCH 27.8 pg (27.0-32.0); MCHC 29.8 g/dL (32.0-37.0); MCV 93.2 fL (80.0-97.0); Mean Platelet Volume 10.9 fL (9.5-12.2); Monocytes # (A) 0.47 X 10*3/uL (0.20-1.00); Monocytes % (A) 7.9 %; Neutrophils # (A) 4.09 X 10*3/uL (1.80-7.70); Neutrophils % (A) 68.7 %; Platelet Count 307 X 10*3/uL (140-440); RBC 3.24 X 10*6/uL (4.10-5.20); RDW 15.9 % (11.5-14.5); WBC 5.96 X 10*3/uL (4.50-10.00)
[2021-07-04 10:14] LABS: African American GFR (CKD) 90.1 (60.0-200.0); Albumin 3.9 g/dL (3.8-4.9); Albumin/Globulin Ratio 1.65 (1.60-3.17); Anion Gap 15.7 mmol/L (4.00-12.00); BUN/Creat Ratio 27.44 Ratio (12.00-20.00); Blood Urea Nitrogen 22.5 mg/dL (9.0-27.0); Calcium 8.9 mg/dL (8.7-10.3); Carbon Dioxide 24.3 mmol/L (21.6-31.8); Globulin 2.3 g/dL (1.6-3.3); Non-African American GFR(CKD) 77.8 (60.0-200.0); Potassium 3.9 mmol/L (3.5-5.5); Total Bilirubin 0.3 mg/dL (0.30-1.20); Total Protein 6.2 g/dL (6.2-8.2)
[2021-07-04] MEDS: ALBUTEROL NEBULIZED 2.5 MG/3 ML INHALATION PRN (11:20)
--- NOTE | 2021-07-04 13:53 | P.PN ---
Progress Note - Text Progress Note Date: 07/04/21 - Chief Complaint Fall This is a 61-year-old patient who follows with visiting physicians. Chronic stable medical conditions include asthma, CHF, GERD, hypertension, hyperlipidemia, osteoarthritis, chronic pulmonary embolism, hypothyroid, chronic low back and bilateral knee pain, when he did this, restless leg syndrome, chronic lower extremity edema, hypothyroid, gout macular degeneration. Patient's had bariatric surgery. Gastric bypass revision. Bipolar. Patient has a legal guardian Taty Mosher. Patient was getting off a bus on the plank when she lost her balance and fell forward hitting her face on the walker and also fell forwards. She did not pass out. Patient having chest pain on the right side tender. Patient also had the right side of her face. Some bruising on the face. His bleeding in the mouth. X-rays in the ER did not report any fractures. Patient is also complaining of abdominal pain where she fell face forward. Because of medical debility patient's had falls in the past. July 04: Patient sitting up in a chair. Awake, communicative. Bruising on the right of the face. Hurting all over. Had about 75% of breakfast. Review of systems: Was done for constitutional, cardiovascular, GI, pulmonary. r elevant finding as above Active Medications Albuterol Sulfate (Albuterol Nebulized 2.5 Mg/3 Ml) 2.5 mg INHALATION RT-QID PRN PRN Reason: Shortness Of Breath Last Admin: 07/04/21 11:20 Dose: 2.5 mg Documented by: Allopurinol (Allopurinol 100 Mg Tab) 100 mg PO DAILY@0700 [facility] Last Admin: 07/04/21 09:00 Dose: 100 mg Documented by: Atorvastatin Calcium (Atorvastatin 10 Mg Tab) 10 mg PO HS@1999 [facility] Last Admin: 07/03/21 19:32 Dose: 10 mg Documented by: Barium Sulfate (Barium Sulfate 450 Ml Oral.Susp Bottle) 450 ml PO Q3HR PRN PRN Reason: CT Scan Stop: 07/05/21 08:47 Buspirone HCl (Buspirone Hcl 10 Mg Tab) 20 mg PO BID@0700,1500 [facility] Last Admin: 07/04/21 09:01 Dose: 20 mg Documented by: Carvedilol (Carvedilol 12.5 Mg Tab) 25 mg PO BID@0700,2000 [facility] Last Admin: 07/04/21 09:01 Dose: 25 mg Documented by: Diclofenac Sodium (Diclofenac Sodium Gel 100 Gm Tube) 2 gm TOPICAL QID PRN; Protocol PRN Reason: Pain Docusate Sodium (Docusate 100 Mg Cap) 100 mg PO BID@ [facility] Last Admin: 07/04/21 09:02 Dose: 100 mg Documented by: Duloxetine HCl (Duloxetine Hcl 60 Mg Capsule.Dr) 60 mg PO BID@ [facility] Last Admin: 07/04/21 09:01 Dose: 60 mg Documented by: Ferrous Sulfate (Ferrous Sulfate 325 Mg Tab) 325 mg PO DAILY@699 [facility] Last Admin: 07/04/21 09:02 Dose: 325 mg Documented by: Gabapentin (Gabapentin 300 Mg Cap) 600 mg PO TID@699, [facility] Last Admin: 07/04/21 09:02 Dose: 600 mg Documented by: Lamotrigine (Lamotrigine 100 Mg Tab) 100 mg PO HS@170 [facility] Last Admin: 07/03/21 17:26 Dose: Not Given Documented by: Lamotrigine (Lamotrigine 100 Mg Tab) 200 mg PO DAILY@07 [facility] Last Admin: 07/04/21 09:03 Dose: 200 mg Documented by: Levothyroxine Sodium (Levothyroxine 125 Mcg Tab) 125 mcg PO DAILY@06 [facility] Last Admin: 07/04/21 05:39 Dose: 125 mcg Documented by: Meloxicam (Meloxicam 7.5 Mg Tab) 7.5 mg PO DAILY@07 [facility] Last Admin: 07/04/21 09:04 Dose: Not Given Documented by: Montelukast Sodium (Montelukast 10 Mg Tab) 10 mg PO DAILY@07 [facility] Last Admin: 07/04/21 09:05 Dose: 10 mg Documented by: Morphine Sulfate (Morphine Sulfate 4 Mg/Ml Syringe) 4 mg IV Q4HR PRN PRN Reason: Severe Pain Last Admin: 07/04/21 11:13 Dose: 4 mg Documented by: Multivitamins/Minerals (Vit A,C & Z-Iqvbrp-Huabvsxr 1 Each Tab) 1 each PO BID@ [facility] Last Admin: 07/04/21 09:54 Dose: 1 each Documented by: Naloxone HCl (Naloxone 0.4 Mg/Ml 1 Ml Vial) 0.2 mg IV Q2M PRN PRN Reason: Opioid Reversal Non-Formulary Medication (Mirabegron [Myrbetriq]) 25 mg PO DAILY@0700 [facility] Last Admin: 07/04/21 09:05 Dose: Not Given Documented by: Nystatin (Nystatin 100,000unit/Gm Cream 30 Gm Tube) 1 applic TOPICAL BID@ [facility] Last Admin: 07/04/21 09:53 Dose: Not Given Documented by: Ondansetron HCl (Ondansetron 4 Mg/2 Ml Vial) 4 mg IVP Q6HR PRN PRN Reason: Nausea And Vomiting Last Admin: 07/04/21 08:13 Dose: 4 mg Documented by: Ondansetron HCl (Ondansetron 4 Mg Tab) 8 mg PO Q6H PRN PRN Reason: Nausea And Vomiting Pantoprazole Sodium (Pantoprazole 40 Mg Tablet) 40 mg PO AC-BRKFST [facility] Last Admin: 07/04/21 09:07 Dose: 40 mg Documented by: Potassium Chloride (Potassium Chloride Er 10 Meq Tab.Er.Prt) 10 meq PO DAILY@0700 [facility] Last Admin: 07/04/21 09:05 Dose: 10 meq Documented by: Rivaroxaban (Rivaroxaban 10 Mg Tab) 10 mg PO DAILY@0700 [facility]; Protocol Last Admin: 07/04/21 09:05 Dose: 10 mg Documented by: Ropinirole HCl (Ropinirole Hcl 1 Mg Tab) 5 mg PO BID@0700,1700 [facility] Last Admin: 07/04/21 08:58 Dose: 5 mg Documented by: Torsemide (Torsemide 20 Mg Tab) 50 mg PO DAILY [facility] Last Admin: 07/04/21 09:54 Dose: 50 mg Documented by: Tramadol HCl (Tramadol 50 Mg Tab) 50 mg PO TID@0700,1699,1999 [facility] Last Admin: 07/04/21 09:05 Dose: 50 mg Documented by: Triamcinolone Acetonide (Triamcinolone 0.1% Cream 80 Gm Tube) 1 applic TOPICAL BID@ [facility] Last Admin: 07/04/21 09:53 Dose: Not Given Documented by: Past medical history to include: Asthma, CHF, COPD, diabetes, GERD, hypertension, hyperlipidemia, osteoarthritis, pulmonary embolism, hypothyroid, chronic low back pain bilaterally pain, herniated disc, restless leg syndrome, but extremity edema, hypothyroid, gout, macular degeneration, pediatric surgery, with gastric bypass and revision, bipolar disorder, PTSD, moderate to severe aortic stenosis Social history: Nonsmoker. Was every day drinker in the late 80s. Has a legal guardian Taty Mosher Family history: Lung cancer Physical examination: VITAL SIGNS: 98.9, 76, 20, 150/76, 93% on room air GENERAL: Sitting up in a chair, awake EYES: Pupils equal. Conjunctiva normal. HEENT: External appearance of nose and ears normal, oral cavity grossly normal bruising on the right side of the face. Some hematoma. NECK: JVD unable to assess; masses not palpable. HEART: First and second heart sounds are normal; nonpitting edema. LUNGS: Respiratory rate normal; decreased breath sounds. CHEST wall: Reproducible pain on the anterior right chest wall ABDOMEN: Soft, superficial abdominal wall tenderness, liver spleen not palpable, no masses palpable. PSYCH: Alert and oriented x3; mood and affect anxiousl. NEUROLOGICAL: Cranial nerves grossly intact; no facial asymmetry, power and sensation grossly intact. INVESTIGATIONS, reviewed in the clinical context: July 04: White count 5.9 hemoglobin 9 platelets 307 potassium 3.9 creatinine 0.8 WBC 7.1 hemoglobin 9.9 platelets 312 sodium 136 potassium 4.8 INR 1 BUN 30 creatinine 0.73 UA negative Urine drug screen positive for opiates Coronavirus [PCR]: Not detected EKG tracing personally reviewed by me-normal sinus rhythm Chest x-ray film personally reviewed by me-underpenetrated. Cardiomegaly. Prominent interstitium. Thoracic spine CT and x-ray of the face elbow femur humerus knee shoulder tibia- fibula pelvis all negative for fracture 2-D echocardiogram [June 2020]: Moderate concentric LVH, EF 50-55%, moderate severe aortic stenosis Assessment and plan: -Mechanical fall off to patient. Balance coming out of ramp on the bus falling face forward edition the walker that on the cement concrete on the belly. Several x-rays computed tomography scan were done does not show any fracture. -Acute right-sided chest wall pain from blunt trauma. Reproducible. -Chronic intermittent asthma, controlled Albuterol as needed. Singulair 10 mg daily -Diabetes mellitus type 2, diet controlled Follow Accu-Chek -GERD Prilosec 40 mg daily -Essential hypertension Coreg 25 mg twice a day. Hold clonidine -Bipolar disorder Cymbalta 60 mg twice a day BuSpar 20 mg twice a day -Hyperlipidemia Mevacor 10 mg daily at bedtime -Primary osteoarthritis multiple joints bilateral Pain medications as needed -Chronic pulmonary embolism On xarelto 10 mg daily -Hypothyroid Synthroid 125 g daily -Restless leg syndrome 5 mg twice a day -Moderate to severe aortic stenosis Follow clinically -Bilateral lower extremity edema, significant contribution from venous insufficiency due to obesity Sudhakar wrap bilaterally. Cutback dose of Demadex. -Chronic gout Allopurinol 100 mg a day -Chronic urinary stress incontinence myrbetriq 25 mg daily -Legal guardian, Taty Mosher Cutback Demadex to 20 mg daily. Other medications to continue. Discussed with the patient. Keep the patient off clonidine. Continue with Sudhakar wrap. Also fluid restrict [address] mL [address] Thank you Dr. Ge
[2021-07-04] MEDS: BARIUM SULFATE 450 ML ORAL.SUSP BOTTLE PO PRN (14:20)
--- NOTE | 2021-07-04 15:15 | P.PN ---
Subjective Progress Note Date: 07/04/21 CHIEF COMPLAINT: Fall HISTORY OF PRESENT ILLNESS: This is a 61-year-old female who has known history of morbid obesity and PE and on Xarelto. She presented to the emergency department after a fall down the bus ramp. Patient reports that she uses a walker. She hit her right side of her face on the walker and then landed on the cement ground on her abdomen. Patient reports "I'd belly flopped onto the cement." Patient had refused the CAT scan of the abdomen yesterday. She is an now agreeable to have it completed. She is still complaining of abdominal pain and right facial pain. She has no new complaints of pain. Afebrile. Hemoglobin is down from 9.9-9. She also has broken teeth which is making it difficult to eat. However, patient did refuse either a chopped or ground diet. Medicine service has reordered patient's Xarelto. PHYSICAL EXAM: VITAL SIGNS: Reviewed. GENERAL: Well-developed in no acute distress. HEENT: No sclera icterus. Extraocular movements grossly intact. Moist buccal mucosa. Head is atraumatic, normocephalic. ABDOMEN: Soft. Nondistended. Tenderness to palpation of the abdomen near the umbilicus. Bruising from yesterday is smaller NEUROLOGIC: Alert and oriented. Cranial nerves II through XII grossly intact. ASSESSMENT: 1. Fall with no evidence of fractures on imaging. Patient did have blunt, to the right side of her face and abdomen 2. Traumatic hematoma to the right side of the face 3. Abdominal pain 4. Musculoskeletal pain 5. History of PE on Xarelto at home 6. Morbid obesity 7. Anemia 8. Possible loss of consciousness after fall PLAN: -Computed tomography scan of abdomen and pelvis ordered for further evaluation of patient's abdominal pain -Continue pain medications as needed -Continue antiemetics -Continue supportive care -Continue ice packs as needed -Continue regular diet -Repeat labs in a.m. -Consult PT OT -GI prophylaxis Protonix and DVT prophylaxis Xarelto Physician Landscape Contractor note has been reviewed by physician. Signing provider agrees with the documented findings, assessment, and plan of care. Objective - Vital Signs Vital signs: Vital Signs Temp 97.5 F L 07/04/21 14:04 Pulse 78 07/04/21 14:04 Resp 20 07/04/21 14:04 BP 95/58 07/04/21 14:04 Pulse Ox 97 07/04/21 14:04 Intake & Output 07/03/21 07/04/21 07/04/21 18:59 06:59 18:59 Intake Total 240 Output Total 1900 Balance 240 -1900 Weight 164.654 kg Intake: Oral 240 Output: Urine 1900 Other: Voiding Method Indwelling Catheter Indwelling Catheter Indwelling Catheter # Voids 1 - Labs CBC & Chem 7: 07/04/21 05:19 07/04/21 05:19 Labs: Abnormal Lab Results - Last 24 Hours (Table) 07/04/21 07/04/21 Range/Units 05:19 05:19 RBC 3.24 L (4.10-5.20) X 10*6/uL Hgb 9.0 L (12.0-15.0) g/dL Hct 30.2 L (37.2-46.3) % MCHC 29.8 L (32.0-37.0) g/dL RDW 15.9 H (11.5-14.5) % Anion Gap 15.70 H (4.00-12.00) mmol/L BUN/Creatinine Ratio 27.44 H (12.00-20.00) Ratio AST 36 H (13-35) U/L Alkaline Phosphatase 161 H (41-126) U/L
--- NOTE | 2021-07-04 15:53 | CT ---
EXAMINATION TYPE: CT abdomen pelvis wo con DATE OF EXAM: 07/04/2021 HISTORY: abdominal pain CT DLP: 3081.5 mGycm. Automated Exposure Control for Dose Reduction was Utilized. TECHNIQUE: CT scan of the abdomen and pelvis is performed with oral but without IV contrast. COMPARISON: CT abdomen and pelvis April 14, 2020 FINDINGS: Within the limitations of a non-contrast study, the following observations are made. Exam noted suboptimal secondary to patient's large body habitus. LUNG BASES: There is cardiomegaly with left-sided volume loss and mediastinal shift redemonstrated. T iny left pleural effusion on current study with mild to moderate left basilar linear scarring and/or atelectasis. LIVER/GB: Cholecystectomy clip redemonstrated. PANCREAS: Severe fat replaced atrophy redemonstrated. SPLEEN: No significant abnormality is seen. ADRENALS: No significant abnormality is seen. KIDNEYS: Some cortical lobulation and thinning bilaterally again seen. Rodriguez catheter decompresses bl adder. BOWEL: No oral contrast reaches the hepatic flexure. There is no suspicious small or large bowel dila tation. Low-lying cecum into the right pelvis noted. Surgical changes epigastric region from gastric bypass surgery redemonstrated GENITAL ORGANS: Uterus surgically absent or atrophic in appearance LYMPH NODES: No greater than 1cm abdominal or pelvic lymph nodes are appreciated. OSSEOUS STRUCTURES: Metallic hardware from left hip surgery is partially imaged causing some streak a rtifact. OTHER: Surgical changes left mid anterior abdominal wall redemonstrated. Soft tissue injection granul omas in the posterior gluteal region are partially imaged IMPRESSION: Suboptimal study. No significant new or acute findings identified.
[2021-07-04] MEDS: ATORVASTATIN 10 MG TAB PO SCH (20:48)
[2021-07-05 02:22] VITALS: RESP 18
[2021-07-05] MEDS: MORPHINE SULFATE 4 MG/ML SYRINGE IV PRN (03:28)
[2021-07-05] MEDS: LEVOTHYROXINE 125 MCG TAB PO SCH (05:34)
[2021-07-05] MEDS ORDERED: TORSEMIDE 20 MG TAB PO SCH ×2 (07:00→09:00)
[2021-07-05] MEDS: ALBUTEROL NEBULIZED 2.5 MG/3 ML INHALATION PRN ×2 (07:20→11:03)
[2021-07-05] MEDS: GABAPENTIN 300 MG CAP PO SCH ×2 (08:22→16:19)
[2021-07-05] MEDS: lamoTRIgine 100 MG TAB PO SCH ×2 (08:23→16:19)
[2021-07-05] MEDS: PANTOPRAZOLE 40 MG TABLET PO SCH (08:23)
[2021-07-05] MEDS: carvediloL 12.5 MG TAB PO SCH (08:23)
[2021-07-05] MEDS: POTASSIUM CHLORIDE ER 10 MEQ TAB.ER.PRT PO SCH (08:23)
[2021-07-05] MEDS: MONTELUKAST 10 MG TAB PO SCH (08:24)
[2021-07-05] MEDS: DULoxetine HCL 60 MG CAPSULE.DR PO SCH (08:24)
[2021-07-05] MEDS: traMADol 50 MG TAB PO SCH ×2 (08:24→16:19)
[2021-07-05] MEDS: allopurinoL 100 MG TAB PO SCH (08:24)
[2021-07-05] MEDS: DOCUSATE 100 MG CAP PO SCH (08:24)
[2021-07-05] MEDS: busPIRone HCl 10 MG TAB PO SCH ×2 (08:25→16:20)
[2021-07-05] MEDS: FERROUS SULFATE 325 MG TAB PO SCH (08:25)
[2021-07-05] MEDS: VIT A,C & E-LUTEIN-MINERALS 1 EACH TAB PO SCH (08:25)
[2021-07-05] MEDS: MELOXICAM 7.5 MG TAB PO SCH (08:26)
[2021-07-05] MEDS: RIVAROXABAN 10 MG TAB PO SCH (08:26)
[2021-07-05] MEDS: NON FORMULARY DRUG (Mirabegron [Myrbetriq] 25 MG Tab.Er.24h) PO SCH (08:28)
[2021-07-05] MEDS: TRIAMCINOLONE 0.1% CREAM 80 GM TUBE TOPICAL SCH (08:28)
[2021-07-05] MEDS: NYSTATIN 100,000UNIT/GM CREAM 30 GM TUBE TOPICAL SCH (08:29)
[2021-07-05 09:43] LABS: HGB 8.7 g/dL (12.0-15.0); MCV 93.2 fL (80.0-97.0); Mean Platelet Volume 10.8 fL (9.5-12.2); Platelet Count 275 X 10*3/uL (140-440); RBC 3.22 X 10*6/uL (4.10-5.20); RDW 15.9 % (11.5-14.5); WBC 5.97 X 10*3/uL (4.50-10.00)
[2021-07-05] MEDS: HYDROcodone/APAP 5-325MG 1 EACH TAB PO PRN ×2 (10:30→15:40)
[2021-07-05 13:30] VITALS: BP 104/61; PULSE 76; TEMP 97.6
--- NOTE | 2021-07-05 14:11 | P.DS ---
Providers Date of admission: 07/05/21 09:46 Expected date of discharge: 07/05/21 Attending physician: Marlon Ge Consults: 07/03/21 12:36 Consult Physician Routine Consulting Provider: Watson Pope Consult Reason/Comments: medical managment, trauma admit Do you want consulting provider notified?: Yes Primary care physician: Sajan Pruitt Hospital Course: Discharge diagnosis 1. Fall with no evidence of fractures on imaging. Patient did have blunt trauma to the right side of her face and abdomen 2. Traumatic hematoma to the right side of the face 3. Abdominal pain secondary to her fall. 4. Musculoskeletal pain 5. History of PE on Xarelto at home 6. Morbid obesity 7. Anemia with history of chronic anemia. Hemoglobin 8.7 at discharge. Possibly related to IV fluids and some acute blood loss anemia due to extensive bruising and hematoma along the right side of her face. 8. Possible loss of consciousness after fall Hospital course This is a 61-year-old female who has known history of morbid obesity and PE and on Xarelto. She presented to the emergency department after a fall down the bus ramp. Patient reports that she uses a walker. She hit her right side of her face on the walker and then landed on the cement ground on her abdomen. Patient reports "I'd belly flopped onto the cement." Patient had multiple x-rays and imaging completed. No evidence of fractures. Her face CT did reveal extensive bruising along the lateral aspect of the right side of the face and underlying the right jaw. No underlying acute facial bone fracture seen. Computed tomography scan abdomen and pelvis shows no new or acute findings. It was a suboptimal study. Patient was treated with IV fluids and pain medication. Patient reports her pain is controlled. She is tolerating diet. She is having flatus. Denies any nausea or vomiting. She is up and ambulating. She is stable for discharge. She has been seen by medical service during this admission. Patient is afebrile. Please refer to chart for any further details. Physician Pt Skilled note has been reviewed by physician. Signing provider agrees with the documented findings, assessment, and plan of care. Patient Condition at Discharge: Stable Plan - Discharge Summary New Discharge Prescriptions: New Torsemide [Demadex] 20 mg PO DAILY #60 tab HYDROcodone/APAP 5-325MG [[place] 5-325] 1 tab PO Q6HR PRN 3 Days #12 tab PRN Reason: Pain Aspirin 81 mg PO DAILY #1 tab Continue Carvedilol [Coreg] 25 mg PO BID@07,1999 Montelukast [Singulair] 10 mg PO DAILY@07 DULoxetine HCL [Cymbalta] 60 mg PO BID@699,1999 allopurinoL [Zyloprim] 100 mg PO DAILY@0700 Potassium Chloride ER [K-Dur 10] 10 meq PO DAILY@0700 Diclofenac Sodium [Voltaren Gel] 2 gram TOPICAL QID PRN PRN Reason: Pain Meloxicam [Mobic] 7.5 mg PO DAILY@0700 Mirabegron [Myrbetriq] 25 mg PO DAILY@0700 Rivaroxaban [Xarelto] 10 mg PO DAILY@0700 Lovastatin [Mevacor] 10 mg PO HS@1999 lamoTRIgine [LaMICtal] 200 mg PO DAILY@0700 Gabapentin [Neurontin] 600 mg PO TID@07,1699,1999 Levothyroxine Sodium 125 mcg PO DAILY@06 traMADol HCL 50 mg PO TID@0700,1699,1999 Albuterol Inhaler [Ventolin Hfa Inhaler] 2 puff INHALATION RT-QID PRN PRN Reason: Shortness Of Breath busPIRone HCl [Buspar] 20 mg PO BID@0700,1500 lamoTRIgine [LaMICtal] 100 mg PO HS@1700 Vit C/E/Zn/Coppr/Lutein/Zeaxan [Preservision Areds 2 Softgel] 1 cap PO BID@699,1999 Biotene Liquid Dry Mouth 10 ml PO TID@0700,1699,1999 Ferrous Sulfate [Iron (65 MG Elemental)] 325 mg PO DAILY@0700 Ergocalciferol (Vitamin D2) [Vitamin D2 (50,000 Iu)] 1,250 mcg PO MO@0700 Nystatin/Triamcin Cream [Mycolog 100,000-0.1 Unit/gm-% Cream] 1 applic TOPICAL BID@699,1999 ondansetron HCL [Zofran] 8 mg PO Q6H PRN PRN Reason: Nausea And Vomiting Clotrimazole/Betamethasone Dip [Lotrisone Cream] 1 applic TOPICAL BID PRN PRN Reason: area of yest infection Omeprazole [PriLOSEC] 40 mg PO DAILY@0700 Docusate [Colace] 100 mg PO BID@699,1999 Fluticasone Nasal [place] [Flonase Nasal [place]] 1 spr EA NOSTRIL DAILY@0700 rOPINIRole HCL [Requip] 5 mg PO BID@0700,1700 Vitamin B Complex 1 cap PO DAILY@0700 Discontinued Torsemide [Demadex] 50 mg PO SUTUTHSA@0700 Aspirin EC [Ecotrin] 325 mg PO DAILY@0700 cloNIDine HCL [Kapvay] 0.1 mg PO HS@1999 Torsemide [Demadex] 100 mg PO MOWEFR@699 Ibuprofen [Motrin] 600 mg PO TID PRN PRN Reason: Pain Discharge Medication List Carvedilol [Coreg] 25 mg PO BID@07,199906/07/17 [History] Montelukast [Singulair] 10 mg PO DAILY@0700 06/28/18 [History] DULoxetine HCL [Cymbalta] 60 mg PO BID@699,199908/15/18 [History] allopurinoL [Zyloprim] 100 mg PO DAILY@0708/14/19 [History] Diclofenac Sodium [Voltaren Gel] 2 gram TOPICAL QID PRN 04/03/20 [History] Potassium Chloride ER [K-Dur 10] 10 meq PO DAILY@0700 04/03/20 [History] Meloxicam [Mobic] 7.5 mg PO DAILY@0700 06/21/20 [History] Mirabegron [Myrbetriq] 25 mg PO DAILY@0700 07/14/20 [History] Rivaroxaban [Xarelto] 10 mg PO DAILY@0700 07/30/20 [History] Lovastatin [Mevacor] 10 mg PO HS@199908/16/20 [History] lamoTRIgine [LaMICtal] 200 mg PO DAILY@0708/16/20 [History] Gabapentin [Neurontin] 600 mg PO TID@0700,1700,199912/01/20 [History] Levothyroxine Sodium 125 mcg PO DAILY@0630 12/01/20 [History] Ergocalciferol (Vitamin D2) [Vitamin D2 (50,000 Iu)] 1,250 mcg PO MO@0712/09/20 [History] Nystatin/Triamcin Cream [Mycolog 100,000-0.1 Unit/gm-% Cream] 1 applic TOPICAL BID@699,199912/09/20 [History] traMADol HCL 50 mg PO TID@699,1699,199912/09/20 [History] Clotrimazole/Betamethasone Dip [Lotrisone Cream] 1 applic TOPICAL BID PRN 01/20/21 [History] Docusate [Colace] 100 mg PO BID@699,199901/20/21 [History] Omeprazole [PriLOSEC] 40 mg PO DAILY@69901/20/21 [History] ondansetron HCL [Zofran] 8 mg PO Q6H PRN 01/20/21 [History] Albuterol Inhaler [Ventolin Hfa Inhaler] 2 puff INHALATION RT-QID PRN 05/01/21 [History] Fluticasone Nasal [place] [Flonase Nasal [place]] 1 spr EA NOSTRIL DAILY@69905/01/21 [History] Vit C/E/Zn/Coppr/Lutein/Zeaxan [Preservision Areds 2 Softgel] 1 cap PO BID@699,199905/01/21 [History] busPIRone HCl [Buspar] 20 mg PO BID@0700,149905/01/21 [History] lamoTRIgine [LaMICtal] 100 mg PO HS@169905/01/21 [History] rOPINIRole HCL [Requip] 5 mg PO BID@0700,17005/01/21 [History] Biotene Liquid Dry Mouth 10 ml PO TID@0700,170,199907/03/21 [History] Ferrous Sulfate [Iron (65 MG Elemental)] 325 mg PO DAILY@69907/03/21 [History] Vitamin B Complex 1 cap PO DAILY@69907/03/21 [History] Aspirin 81 mg PO DAILY #1 tab 07/05/21 [Rx] HYDROcodone/APAP 5-325MG [[place] 5-325] 1 tab PO Q6HR PRN 3 Days #12 tab 07/05/21 [Rx] Torsemide [Demadex] 20 mg PO DAILY #60 tab 07/05/21 [Rx] Follow up Appointment(s)/Referral(s): Sajan Pruitt MD [Primary Care Provider] - 1-2 days Activity/Diet/Wound Care/Special Instructions: fluids restrict 1800 cc/day - educate pt Continue soft diet at discharge Recommend follow-up with dentist outpatient Discharge Disposition: HOME SELF-CARE
--- NOTE | 2021-07-05 21:21 | P.PN ---
Progress Note - Text Progress Note Date: 07/05/21 - Chief Complaint Fall This is a 61-year-old patient who follows with visiting physicians. Chronic stable medical conditions include asthma, CHF, GERD, hypertension, hyperlipidemia, osteoarthritis, chronic pulmonary embolism, hypothyroid, chronic low back and bilateral knee pain, when he did this, restless leg syndrome, chronic lower extremity edema, hypothyroid, gout macular degeneration. Patient's had bariatric surgery. Gastric bypass revision. Bipolar. Patient has a legal guardian Taty Ozunaabdifatah. Patient was getting off a bus on the plank when she lost her balance and fell forward hitting her face on the walker and also fell forwards. She did not pass out. Patient having chest pain on the right side tender. Patient also had the right side of her face. Some bruising on the face. His bleeding in the mouth. X-rays in the ER did not report any fractures. Patient is also complaining of abdominal pain where she fell face forward. Because of medical debility patient's had falls in the past. July 04: Patient sitting up in a chair. Awake, communicative. Bruising on the right of the face. Hurting all over. Had about 75% of breakfast. July 05: CT abdomen unremarkable. Doing much better. Awake. Discussed at length with the patient about fluid restriction. We will cut back further dose of Demadex to 20 mg daily. Also communicative the nurse to reinforce the same upon discharge. Prescriptions done. Clonidine also discontinued. Review of systems: Was done for constitutional, cardiovascular, GI, pulmonary. relevant finding as above Medications noted. Past medical history to include: Asthma, CHF, COPD, diabetes, GERD, hypertension, hyperlipidemia, osteoarthritis, pulmonary embolism, hypothyroid, chronic low back pain bilaterally pain, herniated disc, restless leg syndrome, but extremity edema, hypothyroid, gout, macular degeneration, pediatric surgery, with gastric bypass and revision, bipolar disorder, PTSD, moderate to severe aortic stenosis Social history: Nonsmoker. Was every day drinker in the late 80s. Has a legal guardian Taty Mosher Family history: Lung cancer Physical examination: VITAL SIGNS: 97.6, 76, 18, 104/61, 92% room air GENERAL: Sitting up in a chair, awake, comfortable EYES: Pupils equal. Conjunctiva normal. HEENT: External appearance of nose and ears normal, oral cavity grossly normal bruising on the right side of the face. Some hematoma. NECK: JVD unable to assess; masses not palpable. HEART: First and second heart sounds are normal; nonpitting edema. LUNGS: Respiratory rate normal; decreased breath sounds. CHEST wall: Reproducible pain on the anterior right chest wall ABDOMEN: Soft, minimal superficial abdominal wall tenderness, liver spleen not palpable, no masses palpable. PSYCH: Alert and oriented x3; mood and affect anxiousl. NEUROLOGICAL: Cranial nerves grossly intact; no facial asymmetry, power and sensation grossly intact. INVESTIGATIONS, reviewed in the clinical context: July 05: Hemoglobin 8.7 white count 5.9 July 04: White count 5.9 hemoglobin 9 platelets 307 potassium 3.9 creatinine 0.8 WBC 7.1 hemoglobin 9.9 platelets 312 sodium 136 potassium 4.8 INR 1 BUN 30 creatinine 0.73 UA negative Urine drug screen positive for opiates Coronavirus [PCR]: Not detected EKG tracing personally reviewed by me-normal sinus rhythm Chest x-ray film personally reviewed by me-underpenetrated. Cardiomegaly. Prominent interstitium. Thoracic spine CT and x-ray of the face elbow femur humerus knee shoulder tibia- fibula pelvis all negative for fracture 2-D echocardiogram [June 2020]: Moderate concentric LVH, EF 50-55%, moderate severe aortic stenosis Assessment and plan: -Mechanical fall off to patient. Balance coming out of ramp on the bus falling face forward edition the walker that on the cement concrete on the belly. Several x-rays computed tomography scan were done does not show any fracture. -Acute right-sided chest wall pain from blunt trauma. Reproducible. -Chronic intermittent asthma, controlled Albuterol as needed. Singulair 10 mg daily -Diabetes mellitus type 2, diet controlled Follow Accu-Chek -GERD Prilosec 40 mg daily -Essential hypertension Coreg 25 mg twice a day. Hold clonidine -Bipolar disorder Cymbalta 60 mg twice a day BuSpar 20 mg twice a day -Hyperlipidemia Mevacor 10 mg daily at bedtime -Primary osteoarthritis multiple joints bilateral Pain medications as needed -Chronic pulmonary embolism On xarelto 10 mg daily -Hypothyroid Synthroid 125 g daily -Restless leg syndrome 5 mg twice a day -Moderate to severe aortic stenosis Follow clinically -Bilateral lower extremity edema, significant contribution from venous insufficiency due to obesity, Neurontin Sudhakar wrap bilaterally. . -Chronic gout Allopurinol 100 mg a day -Chronic urinary stress incontinence myrbetriq 25 mg daily -Legal guardian, Taty Mosher Demadex decreased to 20 mg daily. Fluid restriction 80 mL daily. DC clonidine. Follow-up with visiting physicians. Thank you Dr. Ge
--- NOTE | 2021-07-07 08:25 | CDI ---
Documentation Clarification Form Date: 07/07/21 From: Zeynep Greene Admit Date: 07/05/2021 09:46:00 AM Patient Name: Magda Lerner Visit Number: [id number] Discharge Date: 07/05/2021 05:30:00 PM ATTENTION: The Clinical Documentation Specialists (CDI) and [facility] Coding Staff appreciate your assistance in clarifying documentation. Please respond to the clarification below the line at the bottom and electronically sign. The CDI & [facility] Coding staff will review the response and follow-up if needed. Please note: Queries are made part of the Legal Health Record. If you have any questions, please contact the author of this message via ITS. Dr. Watson Pope, Your patient has the documented diagnosis of unspecified heart failure in the ED Note, H&P and in your consult. Additional information regarding the [type, acuity] of CHF is requested. History/Risk Factors: HTN, DM, morbid obesity, COPD Clinical Indicators: VS/Pulse OX: BNP: None available 06/03/20 Echocardiogram Results: Left ventricular systolic function is low-normal with, an EF between 50-55%. Chest X Ray: Cardiomegaly. Coarsened interstitium may reflect chronic interstitial lung disease. Treatment: Torsemide In your professional opinion, can you please clarify the [acuity and type] of CHF if known? [ ] Chronic Systolic Heart Failure (reduced EF) [ ] Acute on Chronic Systolic Heart Failure (reduced EF) [ ] Chronic Diastolic Heart Failure (preserved EF) [ ] Acute on Chronic Diastolic Heart Failure (preserved EF) [ ] Chronic Systolic & Diastolic Heart Failure [ ] Acute on Chronic Heart Failure Systolic & Diastolic Heart Failure [ ] Other, please specify [ ] Unable to determine Patient does not have congestive heart failure MTDD
== END 2021-07-05 17:30 | disposition home or self-care (01) | DRG 605 ==
LOC: EC 09:19 → 6NMEDSUR 12:38 → OBSVTOIN 07-05 09:46
PROVIDERS: ADMIT Surgery; ATTEND Surgery
DX: S00.83XA Contusion of other part of head, initial encounter (principal); Z68.44 Body mass index [BMI] 60.0-69.9, adult; D62 Acute posthemorrhagic anemia; I27.82 Chronic pulmonary embolism; I11.9 Hypertensive heart disease without heart failure; E11.36 Type 2 diabetes mellitus with diabetic cataract; E66.01 Morbid (severe) obesity due to excess calories; J44.9 Chronic obstructive pulmonary disease, unspecified; F31.9 Bipolar disorder, unspecified; F60.3 Borderline personality disorder; Z20.822 Contact with and (suspected) exposure to COVID-19; E03.9 Hypothyroidism, unspecified; G89.11 Acute pain due to trauma; J45.20 Mild intermittent asthma, uncomplicated; E78.5 Hyperlipidemia, unspecified; G25.81 Restless legs syndrome; K21.9 Gastro-esophageal reflux disease without esophagitis; H35.30 Unspecified macular degeneration; D64.9 Anemia, unspecified; I35.0 Nonrheumatic aortic (valve) stenosis; M1A.9XX0 Chronic gout, unspecified, without tophus (tophi); F43.10 Post-traumatic stress disorder, unspecified; F41.0 Panic disorder [episodic paroxysmal anxiety]; R10.9 Unspecified abdominal pain; M79.18 Myalgia, other site; S02.5XXA Fracture of tooth (traumatic), initial encounter for closed fracture; M15.9 Polyosteoarthritis, unspecified; N39.3 Stress incontinence (female) (male); G89.29 Other chronic pain; M54.5 Low back pain; I87.2 Venous insufficiency (chronic) (peripheral); H26.9 Unspecified cataract; R07.89 Other chest pain; M25.561 Pain in right knee; M25.562 Pain in left knee; Z79.82 Long term (current) use of aspirin; Z79.890 Hormone replacement therapy; Z79.1 Long term (current) use of non-steroidal anti-inflammatories (NSAID); Z79.01 Long term (current) use of anticoagulants; Z79.899 Other long term (current) drug therapy; Z87.440 Personal history of urinary (tract) infections; Z98.84 Bariatric surgery status; Z87.19 Personal history of other diseases of the digestive system; Z96.651 Presence of right artificial knee joint; Z87.81 Personal history of (healed) traumatic fracture; Z87.01 Personal history of pneumonia (recurrent); Z86.19 Personal history of other infectious and parasitic diseases; Z91.5 Personal history of self-harm; Z98.890 Other specified postprocedural states; Z88.0 Allergy status to penicillin; Z88.7 Allergy status to serum and vaccine; Z88.2 Allergy status to sulfonamides; Z88.8 Allergy status to other drugs, medicaments and biological substances; W01.0XXA Fall on same level from slipping, tripping and stumbling without subsequent striking against object, initial encounter; Z80.1 Family history of malignant neoplasm of trachea, bronchus and lung; Z83.3 Family history of diabetes mellitus; Z82.49 Family history of ischemic heart disease and other diseases of the circulatory system; Z83.2 Family history of diseases of the blood and blood-forming organs and certain disorders involving the immune mechanism
CPT/HCPCS: 36415; 70450; 70486; 71045; 72125; 72128; 72170; 74176; 80053; 80306; 80320; 81003; 84484; 85025; 85027; 85610; 85730; 86850; 86900; 86901; 87635; 93005; 94640; 94760; 96374; 96375; 96376; 99285

== ENCOUNTER 2021-08-02 13:11 | Emergency (ER) | payer MEDICARE, OTHER ==
[2021-08-02 14:28] VITALS: RESP 16; TEMP 97.9
[2021-08-02] MEDS ORDERED: MORPHINE SULFATE 4 MG/ML SYRINGE IV STA (16:42)
[2021-08-02] MEDS ORDERED: SODIUM CHLORIDE 0.9% 1,000 ML IV STA (16:42)
[2021-08-02] MEDS ORDERED: ONDANSETRON 4 MG/2 ML VIAL IVP STA (16:42)
[2021-08-02] MEDS ORDERED: methylPREDNISolone SOD SUCCI 125 MG/2 ML VIAL IV STA (16:43)
[2021-08-02] MEDS ORDERED: diphenhydrAMINE 50 MG/ML 1 ML VIAL IVP STA (16:43)
[2021-08-02 17:51] LABS: Basophils % (A) 0 %; Eosinophils # (A) 0.1 k/uL (0-0.7); Eosinophils % (A) 2 %; HCT 31.3 % (34.0-46.0); HGB 10.2 gm/dL (11.4-16.0); Lymphocytes # (A) 1.3 k/uL (1.0-4.8); Lymphocytes % (A) 22 %; MCH 28.1 pg (25.0-35.0); MCHC 32.6 g/dL (31.0-37.0); MCV 86.3 fL (80.0-100.0); Mean Platelet Volume 7.7; Monocytes # (A) 0.3 k/uL (0-1.0); Monocytes % (A) 5 %; Neutrophils # (A) 4.1 k/uL (1.3-7.7); Neutrophils % (A) 69 %; Platelet Count 316 k/uL (150-450); RBC 3.63 m/uL (3.80-5.40); RDW 14.8 % (11.5-15.5)
[2021-08-02 18:01] LABS: Appearance,Urine Clear (Clear); Bilirubin,Urine Negative (Negative); Blood,Urine Negative (Negative); Color,Urine Light Yellow; Glucose,Urine (UA) Negative (Negative); Ketones,Urine Negative (Negative); Leukocyte Esterase,Urine Negative (Negative); Nitrite,Urine Negative (Negative); Protein,Urine Negative (Negative); Specific Gravity,Urine 1.006 (1.001-1.035); Urobilinogen,Urine <2.0 mg/dL (<2.0)
[2021-08-02 18:03] LABS: Albumin 3.9 g/dL (3.5-5.0); Calcium 9.1 mg/dL (8.4-10.2); Total Bilirubin 0.3 mg/dL (0.2-1.3); Total Protein 6.7 g/dL (6.3-8.2)
[2021-08-02] MEDS ORDERED: MORPHINE SULFATE 4 MG/ML SYRINGE IM STA (18:03)
[2021-08-02 18:05] LABS: Potassium 3.8 mmol/L (3.5-5.1)
[2021-08-02 18:12] VITALS: BP 121/78; PULSE 89
--- NOTE | 2021-08-02 20:14 | ED ---
General Adult HPI - General Chief complaint: Abdominal Pain Stated complaint: abd pain Time Seen by Provider: 08/02/21 16:41 Source: patient Mode of arrival: EMS Limitations: no limitations - History of Present Illness Initial comments: Patient complains of abdominal pain. Nothing makes it better or worse. The pain is in the middle of the belly. It doesn't radiate anywhere. She has no chest pain. She has no shortness of breath. She has no fevers or chills. She has no nausea or vomiting. She has no black or tarry stool. She has no dysuria. She has no weakness. She has no lightheadedness. - Related Data Home Medications Medication Instructions Recorded Confirmed Carvedilol [Coreg] 25 mg PO BID@0700,199906/07/17 08/02/21 Montelukast [Singulair] 10 mg PO DAILY@0700 06/28/18 08/02/21 DULoxetine HCL [Cymbalta] 60 mg PO BID@07,199908/15/18 08/02/21 allopurinoL [Zyloprim] 100 mg PO DAILY@0700 08/14/19 08/02/21 Diclofenac Sodium [Voltaren Gel] 2 gram TOPICAL QID PRN 04/03/20 08/02/21 Potassium Chloride ER [K-Dur 10] 10 meq PO DAILY@0700 04/03/20 08/02/21 Mirabegron [Myrbetriq] 25 mg PO DAILY@0700 07/14/20 08/02/21 Rivaroxaban [Xarelto] 10 mg PO DAILY@0700 07/30/20 08/02/21 Lovastatin [Mevacor] 10 mg PO HS@199908/16/20 08/02/21 lamoTRIgine [LaMICtal] 200 mg PO DAILY@0700 08/16/20 08/02/21 Gabapentin [Neurontin] 600 mg PO TID@0700,1699,199912/01/20 08/02/21 Levothyroxine Sodium 125 mcg PO DAILY@0630 12/01/20 08/02/21 Ergocalciferol (Vitamin D2) 1,250 mcg PO Q30D@0700 12/09/20 08/02/21 [Vitamin D2 (50,000 Iu)] Nystatin/Triamcin Cream [Mycolog 1 applic TOPICAL BID@07,199912/09/20 08/02/21 100,000-0.1 Unit/gm-% Cream] traMADol HCL 50 mg PO TID@0700,170,199912/09/20 08/02/21 Clotrimazole/Betamethasone Dip 1 applic TOPICAL BID PRN 01/20/21 08/02/21 [Lotrisone Cream] Omeprazole [PriLOSEC] 40 mg PO DAILY@0700 01/20/21 08/02/21 ondansetron HCL [Zofran] 8 mg PO Q6H PRN 01/20/21 08/02/21 Albuterol Inhaler [Ventolin Hfa 2 puff INHALATION RT-QID PRN 05/01/21 08/02/21 Inhaler] Fluticasone Nasal Strawberry [Flonase 1 spr EA NOSTRIL DAILY@0700 05/01/21 08/02/21 Nasal Strawberry] Vit C/E/Zn/Coppr/Lutein/Zeaxan 1 cap PO BID@07,199905/01/21 08/02/21 [Preservision Areds 2 Softgel] busPIRone HCl [Buspar] 20 mg PO BID@0700,1500 05/01/21 08/02/21 lamoTRIgine [LaMICtal] 100 mg PO DAILY@1700 05/01/21 08/02/21 rOPINIRole HCL [Requip] 5 mg PO BID@0700,1700 05/01/21 08/02/21 Biotene Liquid Dry Mouth 10 ml PO TID@0700,1699,199907/03/21 08/02/21 Ferrous Sulfate [Iron (65 MG 325 mg PO DAILY@0700 07/03/21 08/02/21 Elemental)] Vitamin B Complex 1 cap PO DAILY@0700 07/03/21 08/02/21 Aspirin 81 mg PO BID@07,199908/02/21 08/02/21 Clonidine Hcl Er 0.2 mg PO HS@199908/02/21 08/02/21 Magnesium Hydroxide [Milk of 2,400 mg PO DAILY PRN 08/02/21 08/02/21 Magnesia] Sennosides [Senna] 8.6 mg PO BID@0700,199908/02/21 08/02/21 Torsemide [Demadex] 50 mg PO SUTUTHSA@0700 08/02/21 08/02/21 Torsemide [Demadex] 100 mg PO MOWEFR@69908/02/21 08/02/21 Allergies Allergy/AdvReac Type Severity Reaction Status Date / Time buspirone [From BuSpar] Allergy Unknown Verified 07/03/21 11:49 haloperidol [From Haldol] Allergy Swelling Verified 07/03/21 11:49 hydroxyzine [From Vistaril] Allergy Rash/Hives Verified 07/03/21 11:49 iodine Allergy Swelling Verified 07/03/21 11:49 Penicillins Allergy Swelling Verified 07/03/21 11:49 prochlorperazine Allergy Rash/Hives Verified 07/03/21 11:49 Sulfa (Sulfonamide Allergy Rash/Hives Verified 07/03/21 11:49 Antibiotics) Tetanus Vaccines and Toxoid Allergy Rash/Hives Verified 07/03/21 11:49 [Tetanus Vaccines & Toxoid] trifluoperazine HCl Allergy Unknown Verified 07/03/21 11:49 [From Stelazine] Review of Systems ROS Statement: Those systems with pertinent positive or pertinent negative responses have been documented in the HPI. ROS Other: All systems not noted in ROS Statement are negative. Past Medical History Past Medical History: Asthma, Heart Failure, COPD, Diabetes Mellitus, GERD/Reflux, Hyperlipidemia, Hypertension, Musculoskeletal Disorder, Osteoarthritis (OA), Pneumonia, Pulmonary Embolus (PE), Thyroid Disorder Additional Past Medical History / Comment(s): Chronic low back and bilateral knee pain, herniated discs, RLS, leg edema, anemia, hypothyroid. Hx Gout, UTIs, Cellulitis. Cataracts, Macular Degeneration. Diabetes is diet controlled. History of Any Multi-Drug Resistant Organisms: None Reported Past Surgical History: Bariatric Surgery, Heart Catheterization, Hernia Repair, Orthopedic Surgery Additional Past Surgical History / Comment(s): Total right knee replacement, abdominal hernia repair X3, left hip repair d/t fracture, gastric bypass with revision, colonoscopy. Past Anesthesia/Blood Transfusion Reactions: No Reported Reaction Past Psychological History: Anxiety, Bipolar, Depression, Panic Disorder, PTSD Smoking Status: Never smoker Past Alcohol Use History: None Reported Past Drug Use History: None Reported - Past Family History Mother Family Medical History: Cancer Additional Family Medical History / Comment(s): Lung cancer. Father Family Medical History: Diabetes Mellitus, Deep Vein Thrombosis (DVT), Myocardial Infarction ([place]), Pulmonary Embolus Additional Family Medical History / Comment(s): "My dad from a blood clot that traveled from his leg to his lung and also caused a heart attack." Brother(s) Family Medical History: Diabetes Mellitus Sister(s) Additional Family Medical History / Comment(s): "Her heart races too fast." General Exam Limitations: no limitations General appearance: alert, in no apparent distress Head exam: Present: atraumatic, normocephalic, normal inspection Eye exam: Present: normal appearance, PERRL, EOMI. Absent: scleral icterus, conjunctival injection, periorbital swelling ENT exam: Present: normal exam, mucous membranes moist Neck exam: Present: normal inspection. Absent: tenderness, meningismus, lymph adenopathy Respiratory exam: Present: normal lung sounds bilaterally. Absent: respiratory distress, wheezes, rales, rhonchi, stridor Cardiovascular Exam: Present: regular rate, normal rhythm, normal heart sounds. Absent: systolic murmur, diastolic murmur, rubs, gallop, clicks GI/Abdominal exam: Present: soft, normal bowel sounds. Absent: distended, tenderness, guarding, rebound, rigid Extremities exam: Present: normal inspection, full ROM, normal capillary refill. Absent: tenderness, pedal edema, joint swelling, calf tenderness Back exam: Present: normal inspection Neurological exam: Present: alert, oriented X3, CN II-XII intact Psychiatric exam: Present: normal affect, normal mood Skin exam: Present: warm, dry, intact, normal color. Absent: rash Course Vital Signs 08/02/21 08/02/21 14:23 18:11 Temperature 97.9 F Pulse Rate 93 89 Respiratory 16 16 Rate Blood Pressure 140/63 121/78 O2 Sat by Pulse 94 L 94 L Oximetry Medical Decision Making - Medical Decision Making Workup is within acceptable limits. Patient feels better. She tolerates oral intake. She is stable for discharge. - Lab Data Result diagrams: 08/02/21 16:59 08/02/21 16:59 Lab Results 08/02/21 08/02/21 08/02/21 Range/Units 16:59 16:59 16:59 WBC 6.0 (3.8-10.6) k/uL RBC 3.63 L (3.80-5.40) m/uL Hgb 10.2 L (11.4-16.0) gm/dL Hct 31.3 L (34.0-46.0) % MCV 86.3 (80.0-100.0) fL MCH 28.1 (25.0-35.0) pg MCHC 32.6 (31.0-37.0) g/dL RDW 14.8 (11.5-15.5) % Plt Count 316 (150-450) k/uL MPV 7.7 Neutrophils % 69 % Lymphocytes % 22 % Monocytes % 5 % Eosinophils % 2 % Basophils % 0 % Neutrophils # 4.1 (1.3-7.7) k/uL Lymphocytes # 1.3 (1.0-4.8) k/uL Monocytes # 0.3 (0-1.0) k/uL Eosinophils # 0.1 (0-0.7) k/uL Basophils # 0.0 (0-0.2) k/uL Sodium 136 L (137-145) mmol/L Potassium 3.8 (3.5-5.1) mmol/L Chloride 99 (98-107) mmol/L Carbon Dioxide 29 (22-30) mmol/L Anion Gap 8 mmol/L BUN 29 H (7-17) mg/dL Creatinine 1.08 H (0.52-1.04) mg/dL Est GFR (CKD-EPI)AfAm 65 (>60 ml/min/1.73 sqM) Est GFR (CKD-EPI)NonAf 56 (>60 ml/min/1.73 sqM) Glucose 96 (74-99) mg/dL Calcium 9.1 (8.4-10.2) mg/dL Total Bilirubin 0.3 (0.2-1.3) mg/dL AST 31 (14-36) U/L ALT 12 (4-34) U/L Alkaline Phosphatase 106 (38-126) U/L Troponin I (0.000-0.034) ng/mL Total Protein 6.7 (6.3-8.2) g/dL Albumin 3.9 (3.5-5.0) g/dL Amylase 30 (30-110) U/L Lipase 30 (23-300) U/L Urine Color Light Yellow Urine Appearance Clear (Clear) Urine pH 6.0 (5.0-8.0) Ur Specific [place] 1.006 (1.001-1.035) Urine Protein Negative (Negative) Urine Glucose (UA) Negative (Negative) Urine Ketones Negative (Negative) Urine Blood Negative (Negative) Urine Nitrite Negative (Negative) Urine Bilirubin Negative (Negative) Urine Urobilinogen <2.0 (<2.0) mg/dL Ur Leukocyte Esterase Negative (Negative) Influenza Type A (PCR) (Not Detectd) Influenza Type B (PCR) (Not Detectd) RSV (PCR) (Not Detectd) SARS-CoV-2 (PCR) (Not Detectd) 08/02/21 08/02/21 Range/Units 16:59 17:56 WBC (3.8-10.6) k/uL RBC (3.80-5.40) m/uL Hgb (11.4-16.0) gm/dL Hct (34.0-46.0) % MCV (80.0-100.0) fL MCH (25.0-35.0) pg MCHC (31.0-37.0) g/dL RDW (11.5-15.5) % Plt Count (150-450) k/uL MPV Neutrophils % % Lymphocytes % % Monocytes % % Eosinophils % % Basophils % % Neutrophils # (1.3-7.7) k/uL Lymphocytes # (1.0-4.8) k/uL Monocytes # (0-1.0) k/uL Eosinophils # (0-0.7) k/uL Basophils # (0-0.2) k/uL Sodium (137-145) mmol/L Potassium (3.5-5.1) mmol/L Chloride (98-107) mmol/L Carbon Dioxide (22-30) mmol/L Anion Gap mmol/L BUN (7-17) mg/dL Creatinine (0.52-1.04) mg/dL Est GFR (CKD-EPI)AfAm (>60 ml/min/1.73 sqM) Est GFR (CKD-EPI)NonAf (>60 ml/min/1.73 sqM) Glucose (74-99) mg/dL Calcium (8.4-10.2) mg/dL Total Bilirubin (0.2-1.3) mg/dL AST (14-36) U/L ALT (4-34) U/L Alkaline Phosphatase (38-126) U/L Troponin I <0.012 (0.000-0.034) ng/mL Total Protein (6.3-8.2) g/dL Albumin (3.5-5.0) g/dL Amylase (30-110) U/L Lipase (23-300) U/L Urine Color Urine Appearance (Clear) Urine pH (5.0-8.0) Ur Specific [place] (1.001-1.035) Urine Protein (Negative) Urine Glucose (UA) (Negative) Urine Ketones (Negative) Urine Blood (Negative) Urine Nitrite (Negative) Urine Bilirubin (Negative) Urine Urobilinogen (<2.0) mg/dL Ur Leukocyte Esterase (Negative) Influenza Type A (PCR) Not Detected (Not Detectd) Influenza Type B (PCR) Not Detected (Not Detectd) RSV (PCR) Not Detected (Not Detectd) SARS-CoV-2 (PCR) Not Detected (Not Detectd) Disposition Clinical Impression: Abdominal pain Disposition: HOME SELF-CARE Condition: Good Instructions (If sedation given, give patient instructions): Abdominal Pain (ED) Is patient prescribed a controlled substance at d/c from ED?: No Referrals: Sajan Pruitt MD [Primary Care Provider] - 1-2 days
--- NOTE | 2021-08-02 23:15 | CT ---
EXAMINATION TYPE: CT abdomen pelvis wo con DATE OF EXAM: 08/02/2021 COMPARISON: July 04, 2021 HISTORY: Abdominal pain CT DLP: 2271.2 mGycm Automated exposure control for dose reduction was used. Images obtained from the diaphragm to the floor the pelvis with no contrast. FINDINGS: Lung bases are clear of infiltrate. Heart appears enlarged. There are clips at the gastric fundus. Li ermelinda spleen appear intact. There is no pancreatic mass. There is fatty infiltration of the pancreas. T he bile ducts are not dilated. Gallbladder appears absent. There is no adrenal mass. Kidneys show normal size and contour. There is no hydronephrosis. Bladder d istends smoothly. Exam limited by patient's size. There is a left hip nailing noted. The lumbar verte bra have fairly normal alignment. There is degenerative disc space narrowing from L2 to L5 with vacuu m disc and spur formation. There is no compression fracture. The bony pelvis appears intact. There is no evidence of a pelvic mass. There is no mesenteric edema. There is no ascites or free air. There is no sign of a bowel obstruction. IMPRESSION: Previous gastric bariatric surgery. There is improved aeration of the left lung base compared to old exam and clearing of the mild infiltrate and atelectasis to a large extent. No bowel obstruction. No acute abnormality within the abdomen pelvis.
== END 2021-08-02 21:29 | disposition home or self-care (01) ==
LOC: EC 13:11
DX: R10.9 Unspecified abdominal pain (principal); E11.9 Type 2 diabetes mellitus without complications; I11.0 Hypertensive heart disease with heart failure; I50.9 Heart failure, unspecified; J44.9 Chronic obstructive pulmonary disease, unspecified; E78.5 Hyperlipidemia, unspecified; K21.9 Gastro-esophageal reflux disease without esophagitis; M19.90 Unspecified osteoarthritis, unspecified site; E03.9 Hypothyroidism, unspecified; F31.9 Bipolar disorder, unspecified; F41.9 Anxiety disorder, unspecified; Z86.711 Personal history of pulmonary embolism; Z79.82 Long term (current) use of aspirin; Z79.51 Long term (current) use of inhaled steroids; Z79.890 Hormone replacement therapy; Z79.01 Long term (current) use of anticoagulants; Z79.899 Other long term (current) drug therapy; Z20.822 Contact with and (suspected) exposure to COVID-19; Z83.3 Family history of diabetes mellitus; Z82.49 Family history of ischemic heart disease and other diseases of the circulatory system; Z88.0 Allergy status to penicillin; Z88.8 Allergy status to other drugs, medicaments and biological substances
CPT/HCPCS: 36415; 80053; 82150; 83690; 84484; 85025; 81003; 87636; 74176; 99284; 96372; J2270

== ENCOUNTER 2021-08-30 08:38 | Inpatient (IN) | payer MEDICARE, OTHER ==
[2021-08-30] MEDS ORDERED: ACETAMINOPHEN TAB 500 MG TAB PO STA (08:53)
[2021-08-30] MEDS ORDERED: SODIUM CHLORIDE 0.9% 1,000 ML IV STA ×2 (08:53→12:29)
[2021-08-30] MEDS ORDERED: IBUPROFEN 600 MG TAB PO STA (08:53)
--- NOTE | 2021-08-30 09:10 | ED ---
General Adult HPI - General Source: patient, EMS Mode of arrival: EMS <Ajit Esparza - Last Filed: 08/30/21 12:00> <Mayra Layton - Last Filed: 08/30/21 23:26> - General Chief complaint: Urogenital Stated complaint: urinary retention, fever Time Seen by Provider: 08/30/21 08:45 - History of Present Illness Initial comments: 61-year-old female with a compensated past medical history presents to the emergency room for a chief complaint of feeling cold. Patient reports that she has had the chills since yesterday. States that she has been having lower back pain as well. Patient does have chronic back pain. Patient states that she has had some pain with urination. States earlier she was having some difficulty urinating but when she got here she was able to urinate 700 mL. Has not taken Motrin or Tylenol today for fever. Denies upper respiratory infections.Patient has no other complaints at this time including shortness of breath, chest pain, abdominal pain, nausea or vomiting, headache, or visual changes. (Ajit Esparza) - Related Data Home Medications Medication Instructions Recorded Confirmed Carvedilol [Coreg] 25 mg PO BID@07,199906/07/17 08/30/21 Montelukast [Singulair] 10 mg PO DAILY@0706/28/18 08/30/21 DULoxetine HCL [Cymbalta] 60 mg PO BID@0708/15/18 08/30/21 allopurinoL [Zyloprim] 100 mg PO DAILY@69908/14/19 08/30/21 Diclofenac Sodium [Voltaren Gel] 2 gram TOPICAL QID PRN 04/03/20 08/30/21 Potassium Chloride ER [K-Dur 10] 10 meq PO DAILY@00 04/03/20 08/30/21 Mirabegron [Myrbetriq] 25 mg PO DAILY@0700 07/14/20 08/30/21 Rivaroxaban [Xarelto] 10 mg PO DAILY@0700 07/30/20 08/30/21 Lovastatin [Mevacor] 10 mg PO HS@199908/16/20 08/30/21 lamoTRIgine [LaMICtal] 200 mg PO DAILY@0700 08/16/2021 Gabapentin [Neurontin] 600 mg PO TID@0700,1699,199912/01/20 08/30/21 Levothyroxine Sodium 125 mcg PO DAILY@0630 12/01/20 08/30/21 Ergocalciferol (Vitamin D2) 1,250 mcg PO Q30D@0700 12/09/20 08/30/21 [Vitamin D2 (50,000 Iu)] Nystatin/Triamcin Cream [Mycolog 1 applic TOPICAL BID@699,199912/09/20 08/30/21 100,000-0.1 Unit/gm-% Cream] traMADol HCL 50 mg PO Q6H 12/09/20 08/30/21 Clotrimazole/Betamethasone Dip 1 applic TOPICAL BID PRN 01/20/21 08/30/21 [Lotrisone Cream] Omeprazole [PriLOSEC] 40 mg PO DAILY@0701/20/21 08/30/21 ondansetron HCL [Zofran] 8 mg PO Q6H PRN 01/20/21 08/30/21 Albuterol Inhaler [Ventolin Hfa 2 puff INHALATION RT-QID PRN 05/01/21 08/30/21 Inhaler] Fluticasone Nasal [place] [Flonase 1 spr EA NOSTRIL DAILY@69905/01/21 08/30/21 Nasal [place]] Vit C/E/Zn/Coppr/Lutein/Zeaxan 1 cap PO BID@07,199905/01/21 08/30/21 [Preservision Areds 2 Softgel] busPIRone HCl [Buspar] 20 mg PO BID@0700,1700 05/01/21 08/30/21 lamoTRIgine [LaMICtal] 100 mg PO DAILY@169905/01/21 08/30/21 rOPINIRole HCL [Requip] 5 mg PO BID@0700,1700 05/01/21 08/30/21 Ferrous Sulfate [Iron (65 MG 325 mg PO DAILY@0700 07/03/21 08/30/21 Elemental)] Vitamin B Complex 1 cap PO DAILY@0700 07/03/21 08/30/21 Magnesium Hydroxide [Milk of 2,400 mg PO DAILY PRN 08/02/21 08/30/21 Magnesia] Sennosides [Senna] 8.6 mg PO BID@07,199908/02/21 08/30/21 Torsemide [Demadex] 50 mg PO SUTUTHSA@0700 08/02/21 08/30/21 Torsemide [Demadex] 100 mg PO MOWEFR@0700 08/02/21 08/30/21 Aspirin EC [Ecotrin Low Dose] 81 mg PO BID@699,199908/30/21 08/30/21 Melatonin 3 mg PO HS@199908/30/21 08/30/21 Saliva Stimulant Agents Comb.3 10 ml PO TID@07,1699,199908/30/21 08/30/21 [Biotene Moisturizing Mouth] cloNIDine HCL [Kapvay] 0.2 mg PO HS@199908/30/21 08/30/21 Allergies Allergy/AdvReac Type Severity Reaction Status Date / Time buspirone [From BuSpar] Allergy Unknown Verified 08/30/21 10:24 haloperidol [From Haldol] Allergy Swelling Verified 08/30/21 10:24 hydroxyzine [From Vistaril] Allergy Rash/Hives Verified 08/30/21 10:24 iodine Allergy Swelling Verified 08/30/21 10:24 Penicillins Allergy Swelling Verified 08/30/21 10:24 prochlorperazine Allergy Rash/Hives Verified 08/30/21 10:24 Sulfa (Sulfonamide Allergy Rash/Hives Verified 08/30/21 10:24 Antibiotics) Tetanus Vaccines and Toxoid Allergy Rash/Hives Verified 08/30/21 10:24 [Tetanus Vaccines & Toxoid] trifluoperazine HCl Allergy Unknown Verified 08/30/21 10:24 [From Stelazine] Review of Systems ROS Other: All systems not noted in ROS Statement are negative. <Ajit Esparza P - Last Filed: 08/30/21 12:00> ROS Other: All systems not noted in ROS Statement are negative. <Mayra Layton - Last Filed: 08/30/21 23:26> ROS Statement: Those systems with pertinent positive or pertinent negative responses have been documented in the HPI. Past Medical History Past Medical History: Asthma, Heart Failure, COPD, Diabetes Mellitus, GERD/Reflux, Hyperlipidemia, Hypertension, Musculoskeletal Disorder, Osteoarthritis (OA), Pneumonia, Pulmonary Embolus (PE), Thyroid Disorder Additional Past Medical History / Comment(s): Chronic low back and bilateral knee pain, herniated discs, RLS, leg edema, anemia, hypothyroid. Hx Gout, UTIs, Cellulitis. Cataracts, Macular Degeneration. Diabetes is diet controlled. History of Any Multi-Drug Resistant Organisms: None Reported Past Surgical History: Bariatric Surgery, Heart Catheterization, Hernia Repair, Orthopedic Surgery Additional Past Surgical History / Comment(s): Total right knee replacement, abd ominal hernia repair X3, left hip repair d/t fracture, gastric bypass with revision, colonoscopy. Past Anesthesia/Blood Transfusion Reactions: No Reported Reaction Past Psychological History: Anxiety, Bipolar, Depression, Panic Disorder, PTSD Smoking Status: Never smoker Past Alcohol Use History: None Reported Past Drug Use History: None Reported - Past Family History Mother Family Medical History: Cancer Additional Family Medical History / Comment(s): Lung cancer. Father Family Medical History: Diabetes Mellitus, Deep Vein Thrombosis (DVT), Myocardial Infarction (DC), Pulmonary Embolus Additional Family Medical History / Comment(s): "My dad from a blood clot that traveled from his leg to his lung and also caused a heart attack." Brother(s) Family Medical History: Diabetes Mellitus Sister(s) Additional Family Medical History / Comment(s): "Her heart races too fast." <Ajit Esparza P - Last Filed: 08/30/21 12:00> General Exam General appearance: alert, in no apparent distress Head exam: Present: atraumatic Eye exam: Present: normal appearance, PERRL, EOMI. Absent: scleral icterus, conjunctival injection ENT exam: Present: normal exam, mucous membranes moist Neck exam: Present: normal inspection, full ROM. Absent: tenderness Respiratory exam: Present: normal lung sounds bilaterally. Absent: respiratory distress, wheezes Cardiovascular Exam: Present: regular rate, normal rhythm, normal heart sounds GI/Abdominal exam: Present: soft, normal bowel sounds. Absent: distended, tenderness Rectal exam: Present: normal inspection (no erythema) External exam: Present: normal external exam. Absent: erythema, swelling, lesions, lacerations, ecchymosis Neurological exam: Present: alert Skin exam: Present: warm <Ajit Esparza P - Last Filed: 08/30/21 12:00> Course Vital Signs 08/30/21 08/30/21 08/30/21 08:41 09:36 10:09 Temperature 102.4 F H 99.6 F 100.1 F H Pulse Rate 98 87 Respiratory 24 18 Rate Blood Pressure 112/50 124/46 O2 Sat by Pulse 91 L 88 L Oximetry 08/30/21 08/30/21 08/30/21 11:26 12:34 14:00 Temperature 99 F 98 F Pulse Rate 89 86 87 Respiratory 18 18 20 Rate Blood Pressure 93/54 91/50 113/70 O2 Sat by Pulse 98 93 L 96 Oximetry 08/30/21 08/30/21 14:49 15:20 Temperature 98.6 F Pulse Rate 72 68 Respiratory 18 18 Rate Blood Pressure 102/60 110/57 O2 Sat by Pulse 92 L 94 L Oximetry EKG Findings - EKG Comments: EKG Findings:: Normal sinus rhythm, ventricular rate 84, AK interval 146, QTC 432 <Ajit Esparza - Last Filed: 08/30/21 12:00> Medical Decision Making - Lab Data Result diagrams: 08/30/21 09:04 08/30/21 09:04 <Ajit Esparza - Last Filed: 08/30/21 12:00> - Lab Data Result diagrams: 08/30/21 09:04 08/30/21 09:04 <Mayra Layton - Last Filed: 08/30/21 23:26> - Medical Decision Making Presents with a temperature of 102.4 and oxygenation of 91%. This did decrease to 88% patient was put on 2 L. Patient's main complaint is fevers and feeling cold. She admits to some minimal abdominal pain that feels like burning. She does have a cough and congestion. Patient does have a mild white blood cell count of 10.7. CMP does show dehydration, patient was given a liter of fluid. Urinalysis does not show any significant evidence of infection. Influenza, RSV, and COVID-19 negative. Abdomen and pelvis does not show any acute abnormality. Chest x-ray shows some venous congestion versus interstitial pneumonitis. BNP is 400. She does also has basilar atelectasis versus early infiltrate. Given fever and white blood count as well as cough patient was started on Rocephin and azithro. Case was discussed with Dr. Pope who does accept admission. (Ajit Esparza) I was available for consultation in the emergency department. The history and physical exam were done by the midlevel provider. I was consulted for this patients care. I reviewed the case with the midlevel provider and based on the ir presentation of the patient, I agree with the assessment, medical decision making and plan of care as documented. Chart was dictated using [employer] dictation software. Attempts were made to correct any dictation errors however some typographical errors may persist. Patient was seen during a national state of emergency due to the Covid-19 pandemic. (Mayra Layton) - Lab Data Lab Results 08/30/21 08/30/21 08/30/21 Range/Units 08:48 08:53 09:04 WBC 10.7 H (3.8-10.6) k/uL RBC 4.07 (3.80-5.40) m/uL Hgb 11.4 (11.4-16.0) gm/dL Hct 36.2 (34.0-46.0) % MCV 89.0 (80.0-100.0) fL MCH 28.1 (25.0-35.0) pg MCHC 31.6 (31.0-37.0) g/dL RDW 14.5 (11.5-15.5) % Plt Count 291 (150-450) k/uL MPV 7.4 Neutrophils % 90 % Lymphocytes % 5 % Monocytes % 3 % Eosinophils % 1 % Basophils % 0 % Neutrophils # 9.6 H (1.3-7.7) k/uL Lymphocytes # 0.6 L (1.0-4.8) k/uL Monocytes # 0.4 (0-1.0) k/uL Eosinophils # 0.1 (0-0.7) k/uL Basophils # 0.0 (0-0.2) k/uL Hypochromasia Slight Sodium (137-145) mmol/L Potassium (3.5-5.1) mmol/L Chloride (98-107) mmol/L Carbon Dioxide (22-30) mmol/L Anion Gap mmol/L BUN (7-17) mg/dL Creatinine (0.52-1.04) mg/dL Est GFR (CKD-EPI)AfAm (>60 ml/min/1.73 sqM) Est GFR (CKD-EPI)NonAf (>60 ml/min/1.73 sqM) Glucose (74-99) mg/dL Plasma Lactic Acid Brock (0.7-2.0) mmol/L Calcium (8.4-10.2) mg/dL Total Bilirubin (0.2-1.3) mg/dL AST (14-36) U/L ALT (4-34) U/L Alkaline Phosphatase (38-126) U/L NT-Pro-B Natriuret Pep pg/mL Total Protein (6.3-8.2) g/dL Albumin (3.5-5.0) g/dL Urine Color Colorless Urine Appearance Clear (Clear) Urine pH 6.5 (5.0-8.0) Ur Specific [place] 1.004 (1.001-1.035) Urine Protein Negative (Negative) Urine Glucose (UA) Negative (Negative) Urine Ketones Negative (Negative) Urine Blood Negative (Negative) Urine Nitrite Negative (Negative) Urine Bilirubin Negative (Negative) Urine Urobilinogen <2.0 (<2.0) mg/dL Ur Leukocyte Esterase Trace H (Negative) Urine WBC 5 (0-5) /hpf Ur Squamous Epith Cells <1 (0-4) /hpf Coronavirus (PCR) Not Detected (Not Detectd) Influenza Type A (PCR) (Not Detectd) Influenza Type B (PCR) (Not Detectd) RSV (PCR) (Not Detectd) SARS-CoV-2 (PCR) (Not Detectd) 08/30/21 08/30/21 08/30/21 Range/Units 09:04 09:04 09:04 WBC (3.8-10.6) k/uL RBC (3.80-5.40) m/uL Hgb (11.4-16.0) gm/dL Hct (34.0-46.0) % MCV (80.0-100.0) fL MCH (25.0-35.0) pg MCHC (31.0-37.0) g/dL RDW (11.5-15.5) % Plt Count (150-450) k/uL MPV Neutrophils % % Lymphocytes % % Monocytes % % Eosinophils % % Basophils % % Neutrophils # (1.3-7.7) k/uL Lymphocytes # (1.0-4.8) k/uL Monocytes # (0-1.0) k/uL Eosinophils # (0-0.7) k/uL Basophils # (0-0.2) k/uL Hypochromasia Sodium 137 (137-145) mmol/L Potassium 4.5 (3.5-5.1) mmol/L Chloride 95 L (98-107) mmol/L Carbon Dioxide 28 (22-30) mmol/L Anion Gap 14 mmol/L BUN 27 H (7-17) mg/dL Creatinine 0.85 (0.52-1.04) mg/dL Est GFR (CKD-EPI)AfAm 86 (>60 ml/min/1.73 sqM) Est GFR (CKD-EPI)NonAf 75 (>60 ml/min/1.73 sqM) Glucose 105 H (74-99) mg/dL Plasma Lactic Acid Brock 2.0 (0.7-2.0) mmol/L Calcium 9.4 (8.4-10.2) mg/dL Total Bilirubin 0.4 (0.2-1.3) mg/dL AST 27 (14-36) U/L ALT 14 (4-34) U/L Alkaline Phosphatase 135 H (38-126) U/L NT-Pro-B Natriuret Pep 413 pg/mL Total Protein 7.2 (6.3-8.2) g/dL Albumin 4.1 (3.5-5.0) g/dL Urine Color Urine Appearance (Clear) Urine pH (5.0-8.0) Ur Specific [place] (1.001-1.035) Urine Protein (Negative) Urine Glucose (UA) (Negative) Urine Ketones (Negative) Urine Blood (Negative) Urine Nitrite (Negative) Urine Bilirubin (Negative) Urine Urobilinogen (<2.0) mg/dL Ur Leukocyte Esterase (Negative) Urine WBC (0-5) /hpf Ur Squamous Epith Cells (0-4) /hpf Coronavirus (PCR) (Not Detectd) Influenza Type A (PCR) (Not Detectd) Influenza Type B (PCR) (Not Detectd) RSV (PCR) (Not Detectd) SARS-CoV-2 (PCR) (Not Detectd) 08/30/21 Range/Units 09:33 WBC (3.8-10.6) k/uL RBC (3.80-5.40) m/uL Hgb (11.4-16.0) gm/dL Hct (34.0-46.0) % MCV (80.0-100.0) fL MCH (25.0-35.0) pg MCHC (31.0-37.0) g/dL RDW (11.5-15.5) % Plt Count (150-450) k/uL MPV Neutrophils % % Lymphocytes % % Monocytes % % Eosinophils % % Basophils % % Neutrophils # (1.3-7.7) k/uL Lymphocytes # (1.0-4.8) k/uL Monocytes # (0-1.0) k/uL Eosinophils # (0-0.7) k/uL Basophils # (0-0.2) k/uL Hypochromasia Sodium (137-145) mmol/L Potassium (3.5-5.1) mmol/L Chloride (98-107) mmol/L Carbon Dioxide (22-30) mmol/L Anion Gap mmol/L BUN (7-17) mg/dL Creatinine (0.52-1.04) mg/dL Est GFR (CKD-EPI)AfAm (>60 ml/min/1.73 sqM) Est GFR (CKD-EPI)NonAf (>60 ml/min/1.73 sqM) Glucose (74-99) mg/dL Plasma Lactic Acid Brock (0.7-2.0) mmol/L Calcium (8.4-10.2) mg/dL Total Bilirubin (0.2-1.3) mg/dL AST (14-36) U/L ALT (4-34) U/L Alkaline Phosphatase (38-126) U/L NT-Pro-B Natriuret Pep pg/mL Total Protein (6.3-8.2) g/dL Albumin (3.5-5.0) g/dL Urine Color Urine Appearance (Clear) Urine pH (5.0-8.0) Ur Specific [place] (1.001-1.035) Urine Protein (Negative) Urine Glucose (UA) (Negative) Urine Ketones (Negative) Urine Blood (Negative) Urine Nitrite (Negative) Urine Bilirubin (Negative) Urine Urobilinogen (<2.0) mg/dL Ur Leukocyte Esterase (Negative) Urine WBC (0-5) /hpf Ur Squamous Epith Cells (0-4) /hpf Coronavirus (PCR) (Not Detectd) Influenza Type A (PCR) Not Detected (Not Detectd) Influenza Type B (PCR) Not Detected (Not Detectd) RSV (PCR) Not Detected (Not Detectd) SARS-CoV-2 (PCR) Not Detected (Not Detectd) Disposition Is patient prescribed a controlled substance at d/c from ED?: No Time of Disposition: 12:02 <Ajit Esparza P - Last Filed: 08/30/21 12:00> <Mayra Layton - Last Filed: 08/30/21 23:26> Clinical Impression: Leukocytosis, Fever, Pneumonia, Hypoxia Disposition: ADMITTED IP TO THIS HOSP
[2021-08-30 09:22] LABS: Appearance,Urine Clear (Clear); Bilirubin,Urine Negative (Negative); Blood,Urine Negative (Negative); Color,Urine Colorless; Glucose,Urine (UA) Negative (Negative); Ketones,Urine Negative (Negative); Leukocyte Esterase,Urine Trace (Negative); Nitrite,Urine Negative (Negative); PH, Urine 6.5 (5.0-8.0); Protein,Urine Negative (Negative); Specific Gravity,Urine 1.004 (1.001-1.035); Squamous Epithelial Cell,Urine <1 /hpf (0-4); Urobilinogen,Urine <2.0 mg/dL (<2.0); WBC,Urine 5 /hpf (0-5)
[2021-08-30 09:27] LABS: Basophils % (A) 0 %; Eosinophils # (A) 0.1 k/uL (0-0.7); Eosinophils % (A) 1 %; HCT 36.2 % (34.0-46.0); HGB 11.4 gm/dL (11.4-16.0); Hypochromasia Slight; Lymphocytes # (A) 0.6 k/uL (1.0-4.8); Lymphocytes % (A) 5 %; MCH 28.1 pg (25.0-35.0); MCHC 31.6 g/dL (31.0-37.0); Mean Platelet Volume 7.4; Monocytes # (A) 0.4 k/uL (0-1.0); Monocytes % (A) 3 %; Neutrophils # (A) 9.6 k/uL (1.3-7.7); Neutrophils % (A) 90 %; Platelet Count 291 k/uL (150-450); RBC 4.07 m/uL (3.80-5.40); RDW 14.5 % (11.5-15.5); WBC 10.7 k/uL (3.8-10.6)
--- NOTE | 2021-08-30 09:56 | XR ---
EXAMINATION TYPE: XR chest 2V DATE OF EXAM: 08/30/2021 COMPARISON: 07/03/2021 TECHNIQUE: PA and lateral views submitted. HISTORY: Cough FINDINGS: Coarsened interstitial pattern. Heart enlarged. Eventration right hemidiaphragm. No pneumothorax. Sub segmental changes left lung base. IMPRESSION: 1. Correlate for chronic interstitial lung disease. Interstitial pneumonitis or mild venous congestio n in the differential diagnosis. 2. Basilar atelectasis versus early infiltrate.
[2021-08-30 10:03] LABS: Albumin 4.1 g/dL (3.5-5.0); Calcium 9.4 mg/dL (8.4-10.2); Potassium 4.5 mmol/L (3.5-5.1); Total Bilirubin 0.4 mg/dL (0.2-1.3); Total Protein 7.2 g/dL (6.3-8.2)
--- NOTE | 2021-08-30 10:46 | CT ---
EXAMINATION TYPE: CT abdomen pelvis wo con DATE OF EXAM: 08/30/2021 COMPARISON: 08/02/2021 HISTORY: generalized pain, nausea, vomiting, fever CT DLP: 2778 mGycm Examination of the solid and hollow viscera is limited given the lack of contrast. FINDINGS: LUNG BASES: No evidence for nodule. No evidence for infiltrate. LIVER/GB: The gallbladder is unremarkable. No space-occupying hepatic lesion. PANCREAS: No pancreatic mass identified. No inflammatory process seen. SPLEEN: No evidence for splenomegaly. No intrasplenic lesions seen. ADRENALS: No adrenal nodules identified. No evidence for thickening. KIDNEYS: No evidence for renal mass. No nephrolithiasis. No hydronephrosis. BOWEL: Gastric bariatric postoperative changes redemonstrated. No evidence for abnormal collection. N o evidence of bowel obstruction. No inflammatory process. Lymph nodes: No evidence for adenopathy greater than 1 cm. Abdominal aorta: Atheromatous changes seen. No evidence for aneurysm. Genital organs: No significant abnormality. Other: Severe degenerative change and scoliosis lumbar spine. IMPRESSION: NO ACUTE INTRA-ABDOMINAL PROCESS TO ACCOUNT FOR THE PATIENT'S SYMPTOMS.
[2021-08-30] MEDS ORDERED: AZITHROMYCIN 500 MG in SODIUM CHLORIDE 0.9% 250 ML IVPB STA (11:36)
[2021-08-30] MEDS ORDERED: cefTRIAXone IN SWFI 1,000 MG/10 ML SYRINGE IVP STA (11:36)
[2021-08-30] MEDS ORDERED: ONDANSETRON 4 MG/2 ML VIAL IVP STA (11:58)
[2021-08-30] MEDS ORDERED: PNEUMONIA PROTOCOL UTILIZED 1 EACH MISC PO PRN (12:03)
[2021-08-30] MEDS ORDERED: ONDANSETRON 4 MG TAB PO PRN (12:09)
[2021-08-30] MEDS ORDERED: ALBUTEROL NEBULIZED 2.5 MG/3 ML INHALATION PRN (12:09)
[2021-08-30] MEDS ORDERED: MAGNESIUM HYDROXIDE 2,400 MG/10 ML CUP PO PRN (12:09)
[2021-08-30] MEDS ORDERED: DICLOFENAC SODIUM GEL 100 GM TUBE TOPICAL PRN (12:09)
[2021-08-30] MEDS ORDERED: CLOTRIMAZOLE/BETAMETH 1-0.05% CREAM 45 GM TUBE TOPICAL PRN (12:09)
[2021-08-30] MEDS ORDERED: SODIUM CHLORIDE 0.9% 500 ML 500 ML IV STA (12:44)
[2021-08-30] MEDS ORDERED: HYDROCORTISONE SUCCINATE 100 MG/2 ML VIAL IV STA (12:53)
[2021-08-30] MEDS: traMADol 50 MG TAB PO SCH ×2 (15:18→21:25)
[2021-08-30] MEDS: SODIUM CHLORIDE 0.9% 1,000 ML IV SCH ×2 (17:06→18:36)
[2021-08-30] MEDS: GABAPENTIN 300 MG CAP PO SCH ×2 (18:27→21:24)
[2021-08-30] MEDS: busPIRone HCl 10 MG TAB PO SCH (18:28)
[2021-08-30] MEDS: lamoTRIgine 100 MG TAB PO SCH (18:28)
[2021-08-30] MEDS: DRY MOUTH SPRAY 44.3 SPRAY/44.3 ML SPRAY MUCOUS MEM SCH ×2 (18:29→21:24)
[2021-08-30] MEDS ORDERED: HALOPERIDOL LACTATE 5 MG/ML 1 ML VIAL IM PRN (19:54)
[2021-08-30] MEDS ORDERED: NYSTAT-TRIAMCIN 100,000-0.1 UNIT/GM-% CREAM 30 GM TUBE TOPICAL SCH (20:00)
[2021-08-30] MEDS ORDERED: NALOXONE 0.4 MG/ML 1 ML VIAL IV PRN (20:04)
[2021-08-30] MEDS ORDERED: LACTULOSE 20 GM/30 ML CUP PO PRN (20:04)
[2021-08-30] MEDS ORDERED: ACETAMINOPHEN TAB 325 MG TAB PO PRN (20:04)
[2021-08-30] MEDS ORDERED: CALCIUM CARBONATE 500 MG CHEWABLE PO PRN (20:04)
--- NOTE | 2021-08-30 20:05 | P.HPIM ---
History of Present Illness H&P Date: 08/30/21 Chief Complaint: Fever This is a 61-year-old patient who follows with visiting physicians. Chronic stable medical conditions include asthma, CHF, GERD, hypertension, hyperlip idemia, osteoarthritis, chronic pulmonary embolism, hypothyroid, chronic low back and bilateral knee pain, , restless leg syndrome, chronic lower extremity edema, hypothyroid, gout , macular degeneration. Patient's had bariatric surgery. Gastric bypass revision. Bipolar. Patient has a legal guardian Taty Mosher. Patient now presents to the ER complaining of feeling cold. And chills. Also at fever for 2 days. Rather tired. Decreased appetite. Slight cough. Fever. No nausea vomiting. Questionable urinary symptoms. Review of systems: GEN.: Fever and chills EYES: None HEENT: None NECK: None RESPIRATORY: Mild shortness of breath and some cough CARDIOVASCULAR: None GASTROINTESTINAL: None GENITOURINARY: None MUSCULOSKELETAL: Pain in several joints, LYMPHATICS: None HEMATOLOGICAL: None PSYCHIATRY: Anxious NEUROLOGICAL: Does use a walker Past medical history to include: Asthma, CHF, COPD, diabetes, GERD, hypertension, hyperlipidemia, osteoarthritis, pulmonary embolism, hypothyroid, chronic low back pain bilaterally pain, herniated disc, restless leg syndrome, but extremity edema, hypothyroid, gout, macular degeneration, pediatric surgery, with gastric bypass and revision, bipolar disorder, PTSD, moderate to severe aortic stenosis Social history: Nonsmoker. Was every day drinker in the late 80s. Has a legal guardian Taty Mosher Family history: Lung cancer Physical examination: VITAL SIGNS: 102.4, 98, 24, 112/50, 88% on room air GENERAL: BMI 57.4, laying in bed , but lethargic arousable EYES: Pupils equal. Conjunctiva normal. HEENT: External appearance of nose and ears normal, oral cavity grossly normal NECK: JVD unable to assess; masses not palpable. HEART: First and second heart sounds are normal; nonpitting edema. LUNGS: Respiratory rate increased; decreased breath sounds. ABDOMEN: Soft, no tenderness, liver spleen not palpable, no masses palpable. PSYCH: Able to answer questions mood and affect anxious. NEUROLOGICAL: Cranial nerves grossly intact; no facial asymmetry, moving all 4 limbs LYMPHATICS: No lymph nodes palpable in the axilla and neck INVESTIGATIONS, reviewed in the clinical context: White count 10.7 hemoglobin 11.4 platelets 291 sodium 137 potassium 4.5 BUN 27 creatinine 0.85 Troponin I 0.015 proBNP 413 UA: Trace leukoesterase Influenza type A/diabetes/RSV/COVID-19 [PCR]: Not detected Chest x-ray film personally reviewed by me-interstitial prominence Abdominal pelvic CT: Evidence of DJD/scoliosis Assessment and plan: -Patient presented with 2 days of fever or chills, some shortness of breath cough. Slightly decreased sensorium. Normal white count. This could be acute viral pneumonitis. Check pro-calcitonin. -Cannot rule out underlying bacterial pneumonia. IV ceftriaxone, Zithromax -Sepsis IV fluids IV antibiotics -Hypotension Hold off diuretics. Antihypertensives. IV fluids. -Chronic intermittent asthma, controlled Albuterol as needed. Singulair 10 mg daily -Diabetes mellitus type 2, diet controlled Follow Accu-Chek -GERD Prilosec 40 mg daily -Essential hypertension, currently blood pressure running low Hold Coreg and clonidine -Bipolar disorder Cymbalta 60 mg twice a day BuSpar 20 mg twice a day -Hyperlipidemia Mevacor 10 mg daily at bedtime -Primary osteoarthritis multiple joints bilateral Pain medications as needed -Chronic pulmonary embolism On xarelto 10 mg daily -Hypothyroid Synthroid 125 g daily -Restless leg syndrome Requip 5 mg twice a day -Moderate to severe aortic stenosis Follow clinically -Bilateral lower extremity nonpitting edema, significant contribution from venous insufficiency due to obesity Sudhakar wrap -Chronic gout Allopurinol 100 mg a day -Chronic urinary stress incontinence myrbetriq 25 mg daily -Legal guardian, Taty Seals Hold off and evidences. Hold off diuretics. IV fluids. Empirically IV ceftriaxone Zithromax. Other home medications resumed. Check procalcitonin. Consult ID. Past Medical History Past Medical History: Asthma, Heart Failure, COPD, Diabetes Mellitus, Eye Disorder, GERD/Reflux, Hyperlipidemia, Hypertension, Osteoarthritis (OA), Pneumonia, Pulmonary Embolus (PE), Thyroid Disorder Additional Past Medical History / Comment(s): Pt recently admitted to [facility] on 07/05/21 with fall/blunt trauma R side of face and abdomin. Other hx: NIDDM type II/diet controlled, neuropathy bilateral hands/feet, murmur, aortic valve stenosis, bronchitis, PE L upper lobe, chronic anemia, bilateral leg edema/past leg cellulitis, RLS, gout bilateral feet, chronic low minh and bilateral knee pain/henriated discs, UTIs, stress incontinence, starting of bilateral cat aracts, bilateral macular degeneration, hypothyroid. History of Any Multi-Drug Resistant Organisms: None Reported Past Surgical History: Bariatric Surgery, Cholecystectomy, Heart Catheterization, Hernia Repair, Joint Replacement, Orthopedic Surgery Additional Past Surgical History / Comment(s): Total right knee replacement, abdominal hernia repair X3, left hip repair d/t fracture, gastric bypass with revision, EGD, colonoscopy. Past Anesthesia/Blood Transfusion Reactions: No Reported Reaction Smoking Status: Never smoker - Past Family History Mother Family Medical History: Cancer Additional Family Medical History / Comment(s): Lung cancer. Father Family Medical History: Diabetes Mellitus, Deep Vein Thrombosis (DVT), Myocardial Infarction ([place]), Pulmonary Embolus Additional Family Medical History / Comment(s): "My dad from a blood clot that traveled from his leg to his lung and also caused a heart attack." Brother(s) Family Medical History: Diabetes Mellitus Sister(s) Additional Family Medical History / Comment(s): "Her heart races too fast." Medications and Allergies Home Medications Medication Instructions Recorded Confirmed Type Carvedilol [Coreg] 25 mg PO BID@07,199906/07/17 08/30/21 History Montelukast [Singulair] 10 mg PO DAILY@69906/28/18 08/30/21 History DULoxetine HCL [Cymbalta] 60 mg PO BID@08/15/18 08/30/21 History allopurinoL [Zyloprim] 100 mg PO DAILY@69908/14/19 08/30/21 History Diclofenac Sodium [Voltaren Gel] 2 gram TOPICAL QID PRN 04/03/20 08/30/21 History Potassium Chloride ER [K-Dur 10] 10 meq PO DAILY@69904/03/20 08/30/21 History Mirabegron [Myrbetriq] 25 mg PO DAILY@0707/14/20 08/30/21 History Rivaroxaban [Xarelto] 10 mg PO DAILY@0707/30/20 08/30/21 History Lovastatin [Mevacor] 10 mg PO HS@199908/16/20 08/30/21 History lamoTRIgine [LaMICtal] 200 mg PO DAILY@0700 08/16/20 08/30/21 History Gabapentin [Neurontin] 600 mg PO TID@0700,1699,199912/01/20 08/30/21 History Levothyroxine Sodium 125 mcg PO DAILY@0630 12/01/20 08/30/21 History Ergocalciferol (Vitamin D2) 1,250 mcg PO Q30D@0700 12/09/20 08/30/21 History [Vitamin D2 (50,000 Iu)] Nystatin/Triamcin Cream [Mycolog 1 applic TOPICAL BID@699,199912/09/20 History 100,000-0.1 Unit/gm-% Cream] traMADol HCL 50 mg PO Q6H 12/09/20 08/30/21 History Clotrimazole/Betamethasone Dip 1 applic TOPICAL BID PRN 01/20/21 08/30/21 History [Lotrisone Cream] Omeprazole [PriLOSEC] 40 mg PO DAILY@0701/20/21 08/30/21 History ondansetron HCL [Zofran] 8 mg PO Q6H PRN 01/20/21 08/30/21 History Albuterol Inhaler [Ventolin Hfa 2 puff INHALATION RT-QID PRN 05/01/21 08/30/21 History Inhaler] Fluticasone Nasal [place] [Flonase 1 spr EA NOSTRIL DAILY@0700 05/01/21 08/30/21 History Nasal [place]] Vit C/E/Zn/Coppr/Lutein/Zeaxan 1 cap PO BID@07,199905/01/21 08/30/21 History [Preservision Areds 2 Softgel] busPIRone HCl [Buspar] 20 mg PO BID@0700,1700 05/01/21 08/30/21 History lamoTRIgine [LaMICtal] 100 mg PO DAILY@169905/01/21 08/30/21 History rOPINIRole HCL [Requip] 5 mg PO BID@0700,1700 05/01/21 08/30/21 History Ferrous Sulfate [Iron (65 MG 325 mg PO DAILY@0700 07/03/21 08/30/21 History Elemental)] Vitamin B Complex 1 cap PO DAILY@0700 07/03/21 08/30/21 History Magnesium Hydroxide [Milk of 2,400 mg PO DAILY PRN 08/02/21 08/30/21 History Magnesia] Sennosides [Senna] 8.6 mg PO BID@699,199908/02/21 08/30/21 History Torsemide [Demadex] 50 mg PO SUTUTHSA@0700 08/02/21 08/30/21 History Torsemide [Demadex] 100 mg PO MOWEFR@69908/02/21 08/30/21 History Aspirin EC [Ecotrin Low Dose] 81 mg PO BID@07,199908/30/21 08/30/21 History Melatonin 3 mg PO HS@199908/30/21 08/30/21 History Saliva Stimulant Agents Comb.3 10 ml PO TID@07,1699,199908/30/21 08/30/21 History [Biotene Moisturizing Mouth] cloNIDine HCL [Kapvay] 0.2 mg PO HS@199908/30/21 08/30/21 History Allergies Allergy/AdvReac Type Severity Reaction Status Date / Time buspirone [From BuSpar] Allergy Unknown Verified 08/30/21 10:24 haloperidol [From Haldol] Allergy Swelling Verified 08/30/21 10:24 hydroxyzine [From Vistaril] Allergy Rash/Hives Verified 08/30/21 10:24 iodine Allergy Swelling Verified 08/30/21 10:24 Penicillins Allergy Swelling Verified 08/30/21 10:24 prochlorperazine Allergy Rash/Hives Verified 08/30/21 10:24 Sulfa (Sulfonamide Allergy Rash/Hives Verified 08/30/21 10:24 Antibiotics) Tetanus Vaccines and Toxoid Allergy Rash/Hives Verified 08/30/21 10:24 [Tetanus Vaccines & Toxoid] trifluoperazine HCl Allergy Unknown Verified 08/30/21 10:24 [From Stelazine] Physical Exam Vitals: Vital Signs Temp Pulse Resp BP Pulse Ox 08/30/21 15:20 68 18 110/57 94 L 08/30/21 14:49 98.6 F 72 18 102/60 92 L 08/30/21 14:00 87 20 113/70 96 08/30/21 12:34 98 F 86 18 91/50 93 L 08/30/21 11:26 99 F 89 18 93/54 98 08/30/21 10:09 100.1 F H 87 18 124/46 88 L 08/30/21 09:36 99.6 F 08/30/21 08:41 102.4 F H 98 24 112/50 91 L Intake and Output 08/30/21 08/30/21 08/30/21 06:59 14:59 22:59 Intake Total 540 Output Total 350 Balance 190 Intake: Oral 540 Output: Urine 350 Other: Voiding Method Bedside Commode Weight 156.489 kg Results CBC & Chem 7: 08/30/21 09:04 08/30/21 09:04 Labs: Abnormal Lab Results - Last 24 Hours (Table) 08/30/21 08/30/21 08/30/21 Range/Units 08:48 09:04 09:04 WBC 10.7 H (3.8-10.6) k/uL Neutrophils # 9.6 H (1.3-7.7) k/uL Lymphocytes # 0.6 L (1.0-4.8) k/uL Chloride 95 L (98-107) mmol/L BUN 27 H (7-17) mg/dL Glucose 105 H (74-99) mg/dL Alkaline Phosphatase 135 H (38-126) U/L Ur Leukocyte Esterase Trace H (Negative) Thrombosis Risk Factor Assmnt - Choose All That Apply Any of the Below Risk Factors Present?: Yes Each Factor Represents 1 point: Abnormal pulmonary function (COPD), Age 41-60 years, Obesity (BMI >25), Sepsis (< 1month), Swollen legs (current) Other Risk Factors: Yes Each Risk Factor Represents 2 Points: Patient confined to bed Other congenital or acquired thrombophilia - If yes, enter type in comment: No Thrombosis Risk Factor Assessment Total Risk Factor Score: 7 Thrombosis Risk Factor Assessment Level: High Risk
[2021-08-30] MEDS: ATORVASTATIN 10 MG TAB PO SCH (21:24)
[2021-08-30] MEDS: ASPIRIN 81 MG PO SCH (21:24)
[2021-08-30] MEDS: MELATONIN 3 MG TABLET PO SCH (21:24)
[2021-08-30] MEDS: DULoxetine HCL 60 MG CAPSULE.DR PO SCH (21:24)
[2021-08-30] MEDS: TRIAMCINOLONE 0.1% CREAM 80 GM TUBE TOPICAL SCH (21:25)
[2021-08-30] MEDS: SENNOSIDES 8.6 MG TAB PO SCH (21:25)
[2021-08-30] MEDS: NYSTATIN 100,000UNIT/GM CREAM 30 GM TUBE TOPICAL SCH (21:25)
[2021-08-30] MEDS: LORazepam 0.5 MG TAB PO PRN (21:26)
[2021-08-30] MEDS: VIT A,C & E-LUTEIN-MINERALS 1 EACH TAB PO SCH (21:45)
[2021-08-31] MEDS: traMADol 50 MG TAB PO SCH ×4 (01:48→21:35)
[2021-08-31] MEDS: SODIUM CHLORIDE 0.9% 1,000 ML IV SCH ×2 (01:48→13:43)
[2021-08-31] MEDS: LORazepam 0.5 MG TAB PO PRN ×3 (04:41→20:38)
[2021-08-31] MEDS: NON FORMULARY DRUG (Mirabegron [Myrbetriq] 25 MG Tab.Er.24h) PO SCH (06:01)
[2021-08-31] MEDS: LEVOTHYROXINE 125 MCG TAB PO SCH (06:03)
[2021-08-31] MEDS: busPIRone HCl 10 MG TAB PO SCH ×2 (06:03→17:20)
[2021-08-31] MEDS: allopurinoL 100 MG TAB PO SCH (06:03)
[2021-08-31] MEDS: ASPIRIN 81 MG PO SCH ×2 (06:03→21:34)
[2021-08-31] MEDS: DRY MOUTH SPRAY 44.3 SPRAY/44.3 ML SPRAY MUCOUS MEM SCH ×3 (06:04→21:36)
[2021-08-31] MEDS: GABAPENTIN 300 MG CAP PO SCH ×3 (06:04→21:34)
[2021-08-31] MEDS: DULoxetine HCL 60 MG CAPSULE.DR PO SCH ×2 (06:04→21:35)
[2021-08-31] MEDS: MONTELUKAST 10 MG TAB PO SCH (06:05)
[2021-08-31] MEDS: lamoTRIgine 100 MG TAB PO SCH ×2 (06:05→17:20)
[2021-08-31] MEDS: PANTOPRAZOLE 40 MG TABLET PO SCH (06:06)
[2021-08-31] MEDS: NYSTATIN 100,000UNIT/GM CREAM 30 GM TUBE TOPICAL SCH ×2 (06:06→21:37)
[2021-08-31] MEDS: RIVAROXABAN 10 MG TAB PO SCH (06:06)
[2021-08-31] MEDS: POTASSIUM CHLORIDE ER 10 MEQ TAB.ER.PRT PO SCH (06:06)
[2021-08-31] MEDS: TRIAMCINOLONE 0.1% CREAM 80 GM TUBE TOPICAL SCH ×2 (06:07→21:37)
[2021-08-31] MEDS ORDERED: TORSEMIDE 20 MG TAB PO SCH (07:00)
[2021-08-31] MEDS ORDERED: NON FORMULARY DRUG (Vitamin B Complex [Vitamin B Complex] 1 EACH Capsule) PO SCH (07:00)
--- NOTE | 2021-08-31 07:57 | XR ---
EXAMINATION TYPE: XR chest 1V DATE OF EXAM: 08/31/2021 HISTORY: Shortness of breath. COMPARISON: 08/30/2021 TECHNIQUE: Single view of the chest is submitted. FINDINGS: Demonstrated are scattered senescent parenchymal change. Persistent increased density right medial lung base with slight interval improvement suggested. Continued elevation right hemidiaphragm with focal eventration. The heart is stable. Hilar and mediastinal structures are within normal limits. Degenerative changes are seen of the dorsal spine. IMPRESSION: 1. Persistent increased density right medial lung base with slight interval improvement suggested.
--- NOTE | 2021-08-31 09:06 | P.CONS ---
History of Present Illness - Reason for Consult Consult date: 08/30/21 Fever Requesting physician: Watson Pope - Chief Complaint weak and cold x 1 day - History of Present Illness History of present illness : Patient is 69-year-old female presenting to the ER for evaluation of feeling cold and chills that been going on since yesterday before presentation to the hospital the patient also complaining of pain to the left knee area and this patient apparently did have a fall patient also complaining of some back pain and difficulty urination to the ER physician but none to me patient denies having any chest pain or shortness of breath no significant cough or sputum production no nausea vomiting no abdominal pain or any diarrhea patient did have a fever of 102 F on admission to the hospital patient was mildly hypoxic with O2 sats of 88% on room air is currently up to 94% on room air patient did have white count of 10.7 with a left shift creatinine was normal liver exams are normal urine was negative durbin PCR was negative as well as influenza and RSV were negative patient did have a chest x- ray correlate for chronic interstitial lung disease interstitial pneumonitis or mild venous congestion basilar atelectasis versus early infiltrate patient also have a CT of abdominal pelvis no acute intra-abdominal process was identified patient will be started on Rocephin and Zithromax admitted to hospital infectious disease was consulted for further management of antibiotic therapy Review of system: CONSTITUTIONAL: Positive for weakness along with the fever. EYES: No complaint. ENT: No complaint. RESPIRATORY as per history of present illness. CARDIOVASCULAR: No complaint. GENITOURINARY: No complaint. GASTROINTESTINAL: No complaint. MUSCULOSKELETAL: No complaint. INTEGUMENTARY: No complaint. PSYCHOLOGIC: No complaint. ENDOCRINE: No complaint. NEUROLOGIC: No complaint. Past medical history : Reviewed, documented below Past surgical history : Reviewed, documented below Social history: Reviewed, documented below Medications: Reviewed, as documented below EXAMINATION: Vital sigans= Reviewed and documented below GENERAL DESCRIPTION: Middle-aged female up in bed, no distress. No tachypnea or accessory muscle of respiration use. HEENT: Shows Pallor , no scleral icterus. Oral mucous membrane is dry. NECK: Trachea central, no thyromegaly. LUNGS: Unlabored breathing. Decreased breath sound at the base. No wheeze or crackle. HEART: S1, S2, regular rate and rhythm. ABDOMEN: Soft, no tenderness , guarding or rigidity EXTREMITIES: Diffuse swelling to the lower extremity no redness or swelling to t he left knee was noticed no warmth. SKIN: No rash, no masses palpable. NEUROLOGICAL: The patient is awake, alert, oriented x3, mood and affect normal. LABS AND RADIOLOGY: Reviewed results see below Assessment : Patient is a 61-year-old female presented to hospital with feeling cold patient did have a mild cough she was noticed to be febrile and there is evidence of a right lower lobe infiltrate concerning for possible community-acquired pneumonia, patient did have a loud murmur however mention that has been chronic and did not have any dental or other invasive procedures done in the recent past Plan: 1-we will try treating sputum for Gram stain culture and check a procalcitonin level 2-continue with Rocephin and Zithromax We will follow on clinical condition and cultures to further adjust medication if needed Thank you for this consultation we will follow the patient along with you Past Medical History Past Medical History: Asthma, Heart Failure, COPD, Diabetes Mellitus, Eye Disorder, GERD/Reflux, Hyperlipidemia, Hypertension, Osteoarthritis (OA), Pneumonia, Pulmonary Embolus (PE), Thyroid Disorder Additional Past Medical History / Comment(s): Pt recently admitted to [facility] on 07/05/21 with fall/blunt trauma R side of face and abdomin. Other hx: NIDDM type II/diet controlled, neuropathy bilateral hands/feet, murmur, aortic valve stenosis, bronchitis, PE L upper lobe, chronic anemia, bilateral leg edema/past leg cellulitis, RLS, gout bilateral feet, chronic low minh and bilateral knee pain/henriated discs, UTIs, stress incontinence, starting of bilateral cataracts, bilateral macular degeneration, hypothyroid. History of Any Multi-Drug Resistant Organisms: None Reported Past Surgical History: Bariatric Surgery, Cholecystectomy, Heart Cathete rization, Hernia Repair, Joint Replacement, Orthopedic Surgery Additional Past Surgical History / Comment(s): Total right knee replacement, abdominal hernia repair X3, left hip repair d/t fracture, gastric bypass with revision, EGD, colonoscopy. Past Anesthesia/Blood Transfusion Reactions: No Reported Reaction Smoking Status: Never smoker - Past Family History Mother Family Medical History: Cancer Additional Family Medical History / Comment(s): Lung cancer. Father Family Medical History: Diabetes Mellitus, Deep Vein Thrombosis (DVT), Myocardial Infarction ([place]), Pulmonary Embolus Additional Family Medical History / Comment(s): "My dad from a blood clot that traveled from his leg to his lung and also caused a heart attack." Brother(s) Family Medical History: Diabetes Mellitus Sister(s) Additional Family Medical History / Comment(s): "Her heart races too fast." Medications and Allergies Home Medications Medication Instructions Recorded Confirmed Type Carvedilol [Coreg] 25 mg PO BID@0700,199906/07/17 08/30/21 History Montelukast [Singulair] 10 mg PO DAILY@0700 06/28/18 08/30/21 History DULoxetine HCL [Cymbalta] 60 mg PO BID@699,199908/15/18 08/30/21 History allopurinoL [Zyloprim] 100 mg PO DAILY@0700 08/14/19 08/30/21 History Diclofenac Sodium [Voltaren Gel] 2 gram TOPICAL QID PRN 04/03/20 08/30/21 History Potassium Chloride ER [K-Dur 10] 10 meq PO DAILY@0700 04/03/20 08/30/21 History Mirabegron [Myrbetriq] 25 mg PO DAILY@0700 07/14/20 08/30/21 History Rivaroxaban [Xarelto] 10 mg PO DAILY@0700 07/30/20 08/30/21 History Lovastatin [Mevacor] 10 mg PO HS@199908/16/20 08/30/21 History lamoTRIgine [LaMICtal] 200 mg PO DAILY@0700 08/16/20 08/30/21 History Gabapentin [Neurontin] 600 mg PO TID@0700,1699,199912/01/20 08/30/21 History Levothyroxine Sodium 125 mcg PO DAILY@0630 12/01/20 08/30/21 History Ergocalciferol (Vitamin D2) 1,250 mcg PO Q30D@00 12/09/20 08/30/21 History [Vitamin D2 (50,000 Iu)] Nystatin/Triamcin Cream [Mycolog 1 applic TOPICAL BID@0700,199912/09/20 08/30/21 History 100,000-0.1 Unit/gm-% Cream] traMADol HCL 50 mg PO Q6H 12/09/20 08/30/21 History Clotrimazole/Betamethasone Dip 1 applic TOPICAL BID PRN 01/20/21 08/30/21 History [Lotrisone Cream] Omeprazole [PriLOSEC] 40 mg PO DAILY@0700 01/20/21 08/30/21 History ondansetron HCL [Zofran] 8 mg PO Q6H PRN 01/20/21 08/30/21 History Albuterol Inhaler [Ventolin Hfa 2 puff INHALATION RT-QID PRN 05/01/21 08/30/21 History Inhaler] Fluticasone Nasal [place] [Flonase 1 spr EA NOSTRIL DAILY@69905/01/21 08/30/21 History Nasal [place]] Vit C/E/Zn/Coppr/Lutein/Zeaxan 1 cap PO BID@0700,199905/01/21 08/30/21 History [Preservision Areds 2 Softgel] busPIRone HCl [Buspar] 20 mg PO BID@0700,169905/01/21 08/30/21 History lamoTRIgine [LaMICtal] 100 mg PO DAILY@169905/01/21 08/30/21 History rOPINIRole HCL [Requip] 5 mg PO BID@0700,169905/01/21 08/30/21 History Ferrous Sulfate [Iron (65 MG 325 mg PO DAILY@0700 07/03/21 08/30/21 History Elemental)] Vitamin B Complex 1 cap PO DAILY@0700 07/03/21 08/30/21 History Magnesium Hydroxide [Milk of 2,400 mg PO DAILY PRN 08/02/21 08/30/21 History Magnesia] Sennosides [Senna] 8.6 mg PO BID@07,199908/02/21 08/30/21 History Torsemide [Demadex] 50 mg PO SUTUTHSA@69908/02/21 08/30/21 History Torsemide [Demadex] 100 mg PO MOWEFR@69908/02/21 08/30/21 History Aspirin EC [Ecotrin Low Dose] 81 mg PO BID@699,199908/30/21 08/30/21 History Melatonin 3 mg PO HS@199908/30/21 08/30/21 History Saliva Stimulant Agents Comb.3 10 ml PO TID@0700,1700,199908/30/21 08/30/21 History [Biotene Moisturizing Mouth] cloNIDine HCL [Kapvay] 0.2 mg PO HS@199908/30/21 08/30/21 History Allergies Allergy/AdvReac Type Severity Reaction Status Date / Time buspirone [From BuSpar] Allergy Unknown Verified 08/30/21 10:24 haloperidol [From Haldol] Allergy Swelling Verified 08/30/21 10:24 hydroxyzine [From Vistaril] Allergy Rash/Hives Verified 08/30/21 10:24 iodine Allergy Swelling Verified 08/30/21 10:24 Penicillins Allergy Swelling Verified 08/30/21 10:24 prochlorperazine Allergy Rash/Hives Verified 08/30/21 10:24 Sulfa (Sulfonamide Allergy Rash/Hives Verified 08/30/21 10:24 Antibiotics) Tetanus Vaccines and Toxoid Allergy Rash/Hives Verified 08/30/21 10:24 [Tetanus Vaccines & Toxoid] trifluoperazine HCl Allergy Unknown Verified 08/30/21 10:24 [From Stelazine] Physical Exam Vitals: Vital Signs Temp Pulse Resp BP Pulse Ox 08/30/21 14:00 87 20 113/70 96 08/30/21 12:34 98 F 86 18 91/50 93 L 08/30/21 11:26 99 F 89 18 93/54 98 08/30/21 10:09 100.1 F H 87 18 124/46 88 L 08/30/21 09:36 99.6 F 08/30/21 08:41 102.4 F H 98 24 112/50 91 L Intake and Output 08/29/21 08/30/21 08/30/21 22:59 06:59 14:59 Other: Voiding Method Bedside Commode Weight 156.489 kg Results CBC & Chem 7: 08/30/21 09:04 08/30/21 09:04 Labs: Abnormal Lab Results - Last 24 Hours (Table) 08/30/21 08/30/21 08/30/21 Range/Units 08:48 09:04 09:04 WBC 10.7 H (3.8-10.6) k/uL Neutrophils # 9.6 H (1.3-7.7) k/uL Lymphocytes # 0.6 L (1.0-4.8) k/uL Chloride 95 L (98-107) mmol/L BUN 27 H (7-17) mg/dL Glucose 105 H (74-99) mg/dL Alkaline Phosphatase 135 H (38-126) U/L Ur Leukocyte Esterase Trace H (Negative)
[2021-08-31] MEDS: FERROUS SULFATE 325 MG TAB PO SCH (10:04)
[2021-08-31] MEDS: VIT A,C & E-LUTEIN-MINERALS 1 EACH TAB PO SCH ×2 (10:05→21:36)
[2021-08-31] MEDS: FLUTICASONE 50MCG/SPRAY NASAL 16GM EA NOSTRIL SCH (10:05)
[2021-08-31] MEDS: AZITHROMYCIN 500 MG in SODIUM CHLORIDE 0.9% 250 ML IVPB SCH (12:28)
[2021-08-31] MEDS ORDERED: carvediloL 6.25 MG TAB PO STA (13:52)
--- NOTE | 2021-08-31 13:54 | P.PN ---
Progress Note - Text Progress Note Date: 08/31/21 Chief Complaint: Fever This is a 61-year-old patient who follows with visiting physicians. Chronic stable medical conditions include asthma, CHF, GERD, hypertension, hyperlipidemia, osteoarthritis, chronic pulmonary embolism, hypothyroid, chronic low back and bilateral knee pain, , restless leg syndrome, chronic lower extremity edema, hypothyroid, gout , macular degeneration. Patient's had bariatric surgery. Gastric bypass revision. Bipolar. Patient has a legal guardian Taty Mosher. Patient now presents to the ER complaining of feeling cold. And chills. Also at fever for 2 days. Rather tired. Decreased appetite. Slight cough. Fever. No nausea vomiting. Questionable urinary symptoms. Admitted with sepsis, pneumonia, given IV fluids IV ceftriaxone Zithromax. August 31: Doing much better. Sitting up on a chair. Diet advanced to regular. Patient more alert. IV fluids cutback. Continue antibiotics. Procalcitonin is up Review of systems: Was done for constitutional, cardiovascular, GI, pulmonary. relevant finding as above Active Medications Acetaminophen (Acetaminophen Tab 325 Mg Tab) 650 mg PO Q6HR PRN PRN Reason: Mild Pain or Fever > 100.5 Albuterol Sulfate (Albuterol Nebulized 2.5 Mg/3 Ml) 2.5 mg INHALATION RT-QID PRN PRN Reason: Shortness Of Breath Allopurinol (Allopurinol 100 Mg Tab) 100 mg PO DAILY@0700 [facility] Last Admin: 08/31/21 06:03 Dose: 100 mg Documented by: Aspirin (Aspirin 81 Mg) 81 mg PO BID@ [facility] Last Admin: 08/31/21 06:03 Dose: 81 mg Documented by: Atorvastatin Calcium (Atorvastatin 10 Mg Tab) 10 mg PO HS@1999 [facility] Last Admin: 08/30/21 21:24 Dose: 10 mg Documented by: Betamethasone/Clotrimazole (Clotrimazole/Betameth 1-0.05% Cream 45 Gm Tube) 1 applic TOPICAL BID PRN; Protocol PRN Reason: area of yest infection Buspirone HCl (Buspirone Hcl 10 Mg Tab) 20 mg PO BID@0700,1700 [facility] Last Admin: 08/31/21 06:03 Dose: 20 mg Documented by: Calcium Carbonate/Glycine (Calcium Carbonate 500 Mg Chewable) 1,000 mg PO Q4HR PRN PRN Reason: Dyspepsia Diclofenac Sodium (Diclofenac Sodium Gel 100 Gm Tube) 2 gm TOPICAL QID PRN; Protocol PRN Reason: Joint Pain Duloxetine HCl (Duloxetine Hcl 60 Mg Capsule.Dr) 60 mg PO BID@07,1999 [facility] Last Admin: 08/31/21 06:04 Dose: 60 mg Documented by: Ergocalciferol (Ergocalciferol 1,250 Mcg (50,000 Iu) Capsule) 1,250 mcg PO Q30D@07 [facility] Ferrous Sulfate (Ferrous Sulfate 325 Mg Tab) 325 mg PO DAILY@07 [facility] Last Admin: 08/31/21 10:04 Dose: 325 mg Documented by: Fluticasone Propionate (Fluticasone 50mcg/[place] Nasal 16gm) 1 spray EA NOSTRIL DAILY@07 [facility] Last Admin: 08/31/21 10:05 Dose: 1 spray Documented by: Gabapentin (Gabapentin 300 Mg Cap) 600 mg PO TID@0700,170,1999 [facility] Last Admin: 08/31/21 06:04 Dose: 600 mg Documented by: Azithromycin 500 mg/ Sodium (Chloride) 250 mls @ 250 mls/hr IVPB DAILY@1200 [facility] Stop: 09/03/21 12:59 Last Admin: 08/31/21 12:28 Dose: 250 mls/hr Documented by: Ceftriaxone Sodium 2 gm/ (Sodium Chloride) 50 mls @ 100 mls/hr IVPB Q24HR [facility] Stop: 09/03/21 09:29 Last Admin: 08/31/21 10:04 Dose: 100 mls/hr Documented by: Lactulose (Lactulose 20 Gm/30 Ml Cup) 20 gm PO DAILY PRN PRN Reason: Constipation Lamotrigine (Lamotrigine 100 Mg Tab) 100 mg PO DAILY@1700 [facility] Last Admin: 08/30/21 18:28 Dose: 100 mg Documented by: Lamotrigine (Lamotrigine 100 Mg Tab) 200 mg PO DAILY@0700 [facility] Last Admin: 08/31/21 06:05 Dose: 200 mg Documented by: Levothyroxine Sodium (Levothyroxine 125 Mcg Tab) 125 mcg PO DAILY@0630 [facility] Last Admin: 08/31/21 06:03 Dose: 125 mcg Documented by: Lorazepam (Lorazepam 0.5 Mg Tab) 0.5 mg PO Q8HR PRN PRN Reason: Agitation or Acute Anxiety Last Admin: 08/31/21 12:39 Dose: 0.5 mg Documented by: Magnesium Hydroxide (Magnesium Hydroxide 2,400 Mg/10 Ml Cup) 2,400 mg PO DAILY PRN PRN Reason: Constipation Melatonin (Melatonin 3 Mg Tablet) 3 mg PO HS@1999 [facility] Last Admin: 08/30/21 21:24 Dose: 3 mg Documented by: Miscellaneous Information (Pneumonia Protocol Utilized 1 Each Misc) 1 each PO ONCE PRN PRN Reason: Per Protocol Montelukast Sodium (Montelukast 10 Mg Tab) 10 mg PO DAILY@699 [facility] Last Admin: 08/31/21 06:05 Dose: 10 mg Documented by: Multivitamins/Minerals (Vit A,C & J-Vaacha-Wlcqafwv 1 Each Tab) 1 each PO BID@ [facility] Last Admin: 08/31/21 10:05 Dose: 1 each Documented by: Naloxone HCl (Naloxone 0.4 Mg/Ml 1 Ml Vial) 0.2 mg IV Q2M PRN PRN Reason: Opioid Reversal Non-Formulary Medication (Mirabegron [Myrbetriq]) 25 mg PO DAILY@699 [facility] Last Admin: 08/31/21 06:01 Dose: Not Given Documented by: Nystatin (Nystatin 100,000unit/Gm Cream 30 Gm Tube) 1 applic TOPICAL BID @ [facility] Last Admin: 08/31/21 06:06 Dose: 1 applic Documented by: Ondansetron HCl (Ondansetron 4 Mg Tab) 8 mg PO Q6H PRN PRN Reason: Nausea And Vomiting Pantoprazole Sodium (Pantoprazole 40 Mg Tablet) 40 mg PO DAILY@699 [facility] Last Admin: 08/31/21 06:06 Dose: 40 mg Documented by: Potassium Chloride (Potassium Chloride Er 10 Meq Tab.Er.Prt) 10 meq PO DAILY@699 [facility] Last Admin: 08/31/21 06:06 Dose: Not Given Documented by: Rivaroxaban (Rivaroxaban 10 Mg Tab) 10 mg PO DAILY@699 [facility]; Protocol Last Admin: 08/31/21 06:06 Dose: 10 mg Documented by: Ropinirole HCl (Ropinirole Hcl 1 Mg Tab) 5 mg PO BID@0700,1700 [facility] Last Admin: 08/31/21 06:06 Dose: 5 mg Documented by: Saliva Substitute (Dry Mouth [place] 44.3 [place]/44.3 Ml [place]) 1 spray MUCOUS MEM TID@699, [facility] Last Admin: 08/31/21 06:04 Dose: 1 spray Documented by: Senna (Sennosides 8.6 Mg Tab) 8.6 mg PO BID@ [facility] Last Admin: 08/30/21 21:25 Dose: 8.6 mg Documented by: Tramadol HCl (Tramadol 50 Mg Tab) 50 mg PO Q6HR@0200,07, [facility] Last Admin: 08/31/21 06:06 Dose: 50 mg Documented by: Triamcinolone Acetonide (Triamcinolone 0.1% Cream 80 Gm Tube) 1 applic TOPICAL BID@ [facility] Last Admin: 08/31/21 06:07 Dose: 1 applic Documented by: Past medical history to include: Asthma, CHF, COPD, diabetes, GERD, hypertension, hyperlipidemia, osteoarthritis, pulmonary embolism, hypothyroid, chronic low back pain bilaterally pain, herniated disc, restless leg syndrome, but extremity edema, hypothyroid, gout, macular degeneration, pediatric surgery, with gastric bypass and revision, bipolar disorder, PTSD, moderate to severe aortic stenosis Social history: Nonsmoker. Was every day drinker in the late 80s. Has a legal guardian Taty Mosher Family history: Lung cancer Physical examination: VITAL SIGNS: Afebrile, 67, 16, 1 46 x 70, 94% on room air GENERAL: Sitting up in a recliner, more awake more comfortable EYES: Pupils equal. Conjunctiva normal. HEENT: External appearance of nose and ears normal, oral cavity grossly normal NECK: JVD unable to assess; masses not palpable. HEART: First and second heart sounds are normal; nonpitting edema. LUNGS: Respiratory rate increased; decreased breath sounds. ABDOMEN: Soft, no tenderness, liver spleen not palpable, no masses palpable. PSYCH: Able to answer questions mood and affect anxious. INVESTIGATIONS, reviewed in the clinical context: August 31: Pro-calcitonin 2.34 troponin I 0.015 White count 10.7 hemoglobin 11.4 platelets 291 sodium 137 potassium 4.5 BUN 27 creatinine 0.85 Troponin I 0.015 proBNP 413 UA: Trace leukoesterase Influenza type A/diabetes/RSV/COVID-19 [PCR]: Not detected Chest x-ray film personally reviewed by me-interstitial prominence Abdominal pelvic CT: Evidence of DJD/scoliosis Assessment and plan: -Acute pneumonia possible gram-negative organism Elevated pro-calcitonin. IV ceftriaxone, Zithromax -Sepsis: Improving IV fluids IV antibiotics -Hypotension: Improving Hold off diuretics. Antihypertensives. IV fluids-discontinue. -Chronic intermittent asthma, controlled Albuterol as needed. Singulair 10 mg daily -Diabetes mellitus type 2, diet controlled Follow Accu-Chek -GERD Prilosec 40 mg daily -Essential hypertension, currently blood pressure running low Hold Coreg and clonidine -Bipolar disorder Cymbalta 60 mg twice a day BuSpar 20 mg twice a day -Hyperlipidemia Mevacor 10 mg daily at bedtime -Primary osteoarthritis multiple joints bilateral Pain medications as needed -Chronic pulmonary embolism On xarelto 10 mg daily -Hypothyroid Synthroid 125 g daily -Restless leg syndrome Requip 5 mg twice a day -Moderate to severe aortic stenosis Follow clinically -Bilateral lower extremity nonpitting edema, significant contribution from v enous insufficiency due to obesity Sudhakar wrap -Chronic gout Allopurinol 100 mg a day -Chronic urinary stress incontinence myrbetriq 25 mg daily -Legal guardian, Taty Ozunaabdifatah Continue IV ceftriaxone. Cutback on IV fluids. Diet advanced. Resume Coreg. Fluid restriction 1500 mL a day
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
[2021-08-31] MEDS: carvediloL 12.5 MG TAB PO SCH (17:20)
--- NOTE | 2021-08-31 18:35 | PN ---
PROGRESS NOTE DATE OF SERVICE: 08/31/2021 REASON FOR FOLLOWUP: Fever, possible pneumonia. INTERVAL HISTORY: The patient is afebrile. The patient is currently breathing comfortably. No chest pain. Cough but no sputum production. No abdominal pain or diarrhea. PHYSICAL EXAMINATION: Blood pressure is 120/70 with a pulse of 67, temperature of 98. She is 94% on room air. General description is a middle-aged female up in the chair in no distress. Respiratory system: Unlabored breathing, decreased breath sounds at bases ,no wheeze. Heart S1, S2. Regular rate and rhythm. Abdomen: Soft, no tenderness. LABS: Did have elevated ( ) of 2.34. DIAGNOSTIC IMPRESSION AND PLAN: Patient admitted to the hospital with fever concerning for pneumonia. Overall responding to the Rocephin and Zithromax, to continue along with respiratory support and monitor clinical course closely. MMBASILIOL / KIEL: [id number] /
[2021-08-31] MEDS: SENNOSIDES 8.6 MG TAB PO SCH (21:34)
[2021-08-31] MEDS: MELATONIN 3 MG TABLET PO SCH (21:35)
[2021-08-31] MEDS: ATORVASTATIN 10 MG TAB PO SCH (21:35)
[2021-09-01] MEDS: traMADol 50 MG TAB PO SCH ×2 (02:19→06:47)
[2021-09-01] MEDS: allopurinoL 100 MG TAB PO SCH (06:46)
[2021-09-01] MEDS: LORazepam 0.5 MG TAB PO PRN (06:46)
[2021-09-01] MEDS: DULoxetine HCL 60 MG CAPSULE.DR PO SCH (06:46)
[2021-09-01] MEDS: LEVOTHYROXINE 125 MCG TAB PO SCH (06:46)
[2021-09-01] MEDS: FERROUS SULFATE 325 MG TAB PO SCH (06:46)
[2021-09-01] MEDS: ASPIRIN 81 MG PO SCH (06:47)
[2021-09-01] MEDS: PANTOPRAZOLE 40 MG TABLET PO SCH (06:47)
[2021-09-01] MEDS: POTASSIUM CHLORIDE ER 10 MEQ TAB.ER.PRT PO SCH (06:47)
[2021-09-01] MEDS: VIT A,C & E-LUTEIN-MINERALS 1 EACH TAB PO SCH (06:47)
[2021-09-01] MEDS: MONTELUKAST 10 MG TAB PO SCH (06:47)
[2021-09-01] MEDS: lamoTRIgine 100 MG TAB PO SCH (06:48)
[2021-09-01] MEDS: busPIRone HCl 10 MG TAB PO SCH (06:48)
[2021-09-01] MEDS: RIVAROXABAN 10 MG TAB PO SCH (06:48)
[2021-09-01] MEDS: GABAPENTIN 300 MG CAP PO SCH (06:49)
[2021-09-01] MEDS: carvediloL 12.5 MG TAB PO SCH (06:49)
[2021-09-01] MEDS: SENNOSIDES 8.6 MG TAB PO SCH (06:49)
[2021-09-01] MEDS: NON FORMULARY DRUG (Mirabegron [Myrbetriq] 25 MG Tab.Er.24h) PO SCH (06:50)
[2021-09-01] MEDS: TRIAMCINOLONE 0.1% CREAM 80 GM TUBE TOPICAL SCH (06:51)
[2021-09-01] MEDS: NYSTATIN 100,000UNIT/GM CREAM 30 GM TUBE TOPICAL SCH (06:51)
[2021-09-01] MEDS: DRY MOUTH SPRAY 44.3 SPRAY/44.3 ML SPRAY MUCOUS MEM SCH (06:51)
[2021-09-01] MEDS: FLUTICASONE 50MCG/SPRAY NASAL 16GM EA NOSTRIL SCH (06:51)
[2021-09-01] MEDS ORDERED: TORSEMIDE 20 MG TAB PO SCH (07:00)
[2021-09-01 09:49] LABS: African American GFR (CKD) >90 (>60 ml/min/1.73 sqM); Anion Gap 6 mmol/L; Blood Urea Nitrogen 15 mg/dL (7-17); Calcium 9.1 mg/dL (8.4-10.2); Carbon Dioxide 27 mmol/L (22-30); Chloride 104 mmol/L (98-107); Glucose 117 mg/dL (74-99); Non-African American GFR(CKD) >90 (>60 ml/min/1.73 sqM); Sodium 137 mmol/L (137-145)
[2021-09-01] MEDS: AZITHROMYCIN 500 MG in SODIUM CHLORIDE 0.9% 250 ML IVPB SCH (11:20)
[2021-09-01 12:21] VITALS: BP 149/83; PULSE 68; RESP 16; TEMP 97.9
--- NOTE | 2021-09-01 16:41 | P.DS ---
Providers Date of admission: 08/30/21 12:19 Expected date of discharge: 09/01/21 Attending physician: Watson Pope Consults: 08/30/21 13:04 Consult Physician Routine Consulting Provider: Raymond Domingo Consult Reason/Comments: sepsis Do you want consulting provider notified?: Yes 08/30/21 19:55 Consult Physician Routine Consulting Provider: Dm Lockett Consult Reason/Comments: Acute psychosis Do you want consulting provider notified?: Yes Primary care physician: [facility] Course: Chief Complaint: Fever This is a 61-year-old patient who follows with visiting physicians. Chronic stable medical conditions include asthma, CHF, GERD, hypertension, hyperlipidemia, osteoarthritis, chronic pulmonary embolism, hypothyroid, chronic low back and bilateral knee pain, , restless leg syndrome, chronic lower extremity edema, hypothyroid, gout , macular degeneration. Patient's had bariatric surgery. Gastric bypass revision. Bipolar. Patient has a legal guardian Taty Mosher. Patient now presents to the ER complaining of feeling cold. And chills. Also at fever for 2 days. Rather tired. Decreased appetite. Slight cough. Fever. No nausea vomiting. Questionable urinary symptoms. Admitted with sepsis, pneumonia, given IV fluids IV ceftriaxone Zithromax. August 31: Doing much better. Sitting up on a chair. Diet advanced to regular. Patient more alert. IV fluids cutback. Continue antibiotics. Procalcitonin is up September 01: Patient doing well. Pulse ox 95% room air. Eating well. Patient completed a course of Ceftin. Discussed with patient. Fluid restriction discussed with the patient. Cutback dose of diuretic. Discussion and discharge planning more than 35 minutes Consultation: Dr. Domingo from ID Dr. Merchant from psychiatry Past medical history to include: Asthma, CHF, COPD, diabetes, GERD, hypertension, hyperlipidemia, osteoarthritis, pulmonary embolism, hypothyroid, chronic low back pain bilaterally pain, herniated disc, restless leg syndrome, but extremity edema, hypothyroid, gout, macular degeneration, pediatric surgery, with gastric bypass and revision, bipolar disorder, PTSD, moderate to severe aortic stenosis Social history: Nonsmoker. Was every day drinker in the late 80s. Has a legal guardian Taty Mosher Family history: Lung cancer Physical examination: VITAL SIGNS: 97.9, 68, 16, 1 4983, 93% room air GENERAL: Sitting up in a recliner, awake comfortable EYES: Pupils equal. Conjunctiva normal. HEENT: External appearance of nose and ears normal, oral cavity grossly normal NECK: JVD unable to assess; masses not palpable. HEART: First and second heart sounds are normal; nonpitting edema. LUNGS: Respiratory rate increased; decreased breath sounds. ABDOMEN: Soft, no tenderness, liver spleen not palpable, no masses palpable. PSYCH: Able to answer questions mood and affect anxious. INVESTIGATIONS, reviewed in the clinical context: September 01: Potassium 5 creatinine 0.73 August 31: Pro-calcitonin 2.34 troponin I 0.015 White count 10.7 hemoglobin 11.4 platelets 291 sodium 137 potassium 4.5 BUN 27 creatinine 0.85 Troponin I 0.015 proBNP 413 UA: Trace leukoesterase Influenza type A/diabetes/RSV/COVID-19 [PCR]: Not detected Chest x-ray film personally reviewed by me-interstitial prominence Abdominal pelvic CT: Evidence of DJD/scoliosis Assessment and plan: -Acute pneumonia possible gram-negative organism alone better Elevated pro-calcitonin. IV ceftriaxone, Zithromax Ceftin 5 mg twice a day for 5 days -Sepsis: Improving IV fluids IV antibiotics -Hypotension: Improving Hold off diuretics. Antihypertensives. IV fluids-discontinue. -Chronic intermittent asthma, controlled Albuterol as needed. Singulair 10 mg daily -Diabetes mellitus type 2, diet controlled Follow Accu-Chek -GERD Prilosec 40 mg daily -Essential hypertension, Continue Coreg. Clonidine discontinued -Bipolar disorder Cymbalta 60 mg twice a day BuSpar 20 mg twice a day -Hyperlipidemia Mevacor 10 mg daily at bedtime -Primary osteoarthritis multiple joints bilateral Pain medications as needed -Chronic pulmonary embolism On xarelto 10 mg daily -Hypothyroid Synthroid 125 g daily -Restless leg syndrome Requip 5 mg twice a day -Moderate to severe aortic stenosis Follow clinically -Bilateral lower extremity nonpitting edema, significant contribution from venous insufficiency due to obesity Sudhakar wrap -Chronic gout Allopurinol 100 mg a day -Chronic urinary stress incontinence myrbetriq 25 mg daily -Legal guardian, Taty Mosher Disposition: retirement Plan - Discharge Summary Discharge Rx Participant: No New Discharge Prescriptions: New Cefuroxime Axetil [Ceftin] 500 mg PO BID #6 tab Continue Carvedilol [Coreg] 25 mg PO BID@0700,1999 Montelukast [Singulair] 10 mg PO DAILY@07 DULoxetine HCL [Cymbalta] 60 mg PO BID@699,1999 allopurinoL [Zyloprim] 100 mg PO DAILY@07 Potassium Chloride ER [K-Dur 10] 10 meq PO DAILY@07 Diclofenac Sodium [Voltaren Gel] 2 gram TOPICAL QID PRN PRN Reason: Pain Mirabegron [Myrbetriq] 25 mg PO DAILY@07 Rivaroxaban [Xarelto] 10 mg PO DAILY@07 Lovastatin [Mevacor] 10 mg PO HS@1999 lamoTRIgine [LaMICtal] 200 mg PO DAILY@07 Gabapentin [Neurontin] 600 mg PO TID@699,1699,1999 Levothyroxine Sodium 125 mcg PO DAILY@06 traMADol HCL 50 mg PO Q6H Albuterol Inhaler [Ventolin Hfa Inhaler] 2 puff INHALATION RT-QID PRN PRN Reason: Shortness Of Breath busPIRone HCl [Buspar] 20 mg PO BID@0700,170 lamoTRIgine [LaMICtal] 100 mg PO DAILY@170 Vit C/E/Zn/Coppr/Lutein/Zeaxan [Preservision Areds 2 Softgel] 1 cap PO BID@699,1999 Ferrous Sulfate [Iron (65 MG Elemental)] 325 mg PO DAILY@07 Sennosides [Senna] 8.6 mg PO BID@699,1999 Magnesium Hydroxide [Milk of Magnesia] 2,400 mg PO DAILY PRN PRN Reason: Constipation Aspirin EC [Ecotrin Low Dose] 81 mg PO BID@699,1999 Melatonin 3 mg PO HS@1999 Saliva Stimulant Agents Comb.3 [Biotene Moisturizing Mouth] 10 ml PO TID@0700,1699,1999 Ergocalciferol (Vitamin D2) [Vitamin D2 (50,000 Iu)] 1,250 mcg PO Q30D@0700 ondansetron HCL [Zofran] 8 mg PO Q6H PRN PRN Reason: Nausea And Vomiting Clotrimazole/Betamethasone Dip [Lotrisone Cream] 1 applic TOPICAL BID PRN PRN Reason: area of yest infection Omeprazole [PriLOSEC] 40 mg PO DAILY@0700 Fluticasone Nasal [place] [Flonase Nasal [place]] 1 spr EA NOSTRIL DAILY@07 rOPINIRole HCL [Requip] 5 mg PO BID@0700,0 Vitamin B Complex 1 cap PO DAILY@07 Changed Torsemide [Demadex] 50 mg PO DAILY #0 Discontinued Torsemide [Demadex] 100 mg PO MOWEFR@07 Nystatin/Triamcin Cream [Mycolog 100,000-0.1 Unit/gm-% Cream] 1 applic TOPICAL BID@699,1999 cloNIDine HCL [Kapvay] 0.2 mg PO HS@1999 Discharge Medication List Carvedilol [Coreg] 25 mg PO BID@699,199906/07/17 [History] Montelukast [Singulair] 10 mg PO DAILY@69906/28/18 [History] DULoxetine HCL [Cymbalta] 60 mg PO BID@699,199908/15/18 [History] allopurinoL [Zyloprim] 100 mg PO DAILY@0708/14/19 [History] Diclofenac Sodium [Voltaren Gel] 2 gram TOPICAL QID PRN 04/03/20 [History] Potassium Chloride ER [K-Dur 10] 10 meq PO DAILY@0704/03/20 [History] Mirabegron [Myrbetriq] 25 mg PO DAILY@0707/14/20 [History] Rivaroxaban [Xarelto] 10 mg PO DAILY@0707/30/20 [History] Lovastatin [Mevacor] 10 mg PO HS@199908/16/20 [History] lamoTRIgine [LaMICtal] 200 mg PO DAILY@0708/16/20 [History] Gabapentin [Neurontin] 600 mg PO TID@0700,1699,199912/01/20 [History] Levothyroxine Sodium 125 mcg PO DAILY@0630 12/01/20 [History] Ergocalciferol (Vitamin D2) [Vitamin D2 (50,000 Iu)] 1,250 mcg PO Q30D@0700 12/09/20 [History] traMADol HCL 50 mg PO Q6H 12/09/20 [History] Clotrimazole/Betamethasone Dip [Lotrisone Cream] 1 applic TOPICAL BID PRN 01/20/21 [History] Omeprazole [PriLOSEC] 40 mg PO DAILY@0701/20/21 [History] ondansetron HCL [Zofran] 8 mg PO Q6H PRN 01/20/21 [History] Albuterol Inhaler [Ventolin Hfa Inhaler] 2 puff INHALATION RT-QID PRN 05/01/21 [History] Fluticasone Nasal [place] [Flonase Nasal [place]] 1 spr EA NOSTRIL DAILY@69905/01/21 [History] Vit C/E/Zn/Coppr/Lutein/Zeaxan [Preservision Areds 2 Softgel] 1 cap PO BID@699,199905/01/21 [History] busPIRone HCl [Buspar] 20 mg PO BID@699,169905/01/21 [History] lamoTRIgine [LaMICtal] 100 mg PO DAILY@169905/01/21 [History] rOPINIRole HCL [Requip] 5 mg PO BID@0700,169905/01/21 [History] Ferrous Sulfate [Iron (65 MG Elemental)] 325 mg PO DAILY@0707/03/21 [History] Vitamin B Complex 1 cap PO DAILY@69907/03/21 [History] Magnesium Hydroxide [Milk of Magnesia] 2,400 mg PO DAILY PRN 08/02/21 [History] Sennosides [Senna] 8.6 mg PO BID@699,199908/02/21 [History] Aspirin EC [Ecotrin Low Dose] 81 mg PO BID@699,199908/30/21 [History] Melatonin 3 mg PO HS@199908/30/21 [History] Saliva Stimulant Agents Comb.3 [Biotene Moisturizing Mouth] 10 ml PO TID@0700,1699,199908/30/21 [History] Cefuroxime Axetil [Ceftin] 500 mg PO BID #6 tab 09/01/21 [Rx] Torsemide [Demadex] 50 mg PO DAILY #0 09/01/21 [Rx] Follow up Appointment(s)/Referral(s): [facility] [NON-STAFF] - Sajan Pruitt MD [Primary Care Provider] - 1-2 days (Office is closed. Please call office to set up appointment. ) Patient Instructions/Handouts: Pneumonia (DC) Activity/Diet/Wound Care/Special Instructions: Andrew the public guardian is requesting patient be sent back to [facility] by [facility] and they will pay for this. demadex is not new prescription fluid restrict 2000 cc/day Discharge Disposition: HOME WITH HOME HEALTH SERVICES
[2021-09-02] MEDS ORDERED: ERGOCALCIFEROL 1,250 MCG (50,000 IU) CAPSULE PO SCH (07:00)
== END 2021-09-01 14:02 | disposition home health service (06) | DRG 871 ==
LOC: EC 08:38 → 4SSUR 12:19 → 3SCARD 13:37
PROVIDERS: ADMIT Hospitalist; ATTEND Hospitalist
DX: A41.9 Sepsis, unspecified organism (principal); J18.9 Pneumonia, unspecified organism; Z68.43 Body mass index [BMI] 50.0-59.9, adult; I27.82 Chronic pulmonary embolism; R33.9 Retention of urine, unspecified; E03.9 Hypothyroidism, unspecified; E11.9 Type 2 diabetes mellitus without complications; E66.9 Obesity, unspecified; E78.5 Hyperlipidemia, unspecified; E86.0 Dehydration; F31.9 Bipolar disorder, unspecified; F41.0 Panic disorder [episodic paroxysmal anxiety]; F43.10 Post-traumatic stress disorder, unspecified; G25.81 Restless legs syndrome; G89.29 Other chronic pain; H35.30 Unspecified macular degeneration; I50.9 Heart failure, unspecified; I11.0 Hypertensive heart disease with heart failure; I35.0 Nonrheumatic aortic (valve) stenosis; I87.2 Venous insufficiency (chronic) (peripheral); Z20.822 Contact with and (suspected) exposure to COVID-19; J45.20 Mild intermittent asthma, uncomplicated; K21.9 Gastro-esophageal reflux disease without esophagitis; M19.91 Primary osteoarthritis, unspecified site; M1A.9XX0 Chronic gout, unspecified, without tophus (tophi); N39.3 Stress incontinence (female) (male); R09.02 Hypoxemia; Z79.01 Long term (current) use of anticoagulants; Z79.890 Hormone replacement therapy; Z79.899 Other long term (current) drug therapy; Z80.1 Family history of malignant neoplasm of trachea, bronchus and lung; Z82.49 Family history of ischemic heart disease and other diseases of the circulatory system; Z83.3 Family history of diabetes mellitus; Z96.651 Presence of right artificial knee joint; Z98.84 Bariatric surgery status; Z88.0 Allergy status to penicillin; Z88.2 Allergy status to sulfonamides
CPT/HCPCS: 36415; 71045; 71046; 74176; 80048; 80053; 81001; 83605; 83880; 84145; 84484; 85025; 87040; 87635; 87636; 93005; 96360; 96361; 99285

== ENCOUNTER 2021-09-22 16:12 | Emergency (ER) | payer MEDICARE, OTHER ==
[2021-09-22 16:28] VITALS: TEMP 98.5
[2021-09-22] MEDS ORDERED: IPRATROPIUM-ALBUTEROL 3 ML NEB INHALATION STA (16:32)
[2021-09-22] MEDS ORDERED: predniSONE 50 MG TAB PO STA (16:32)
--- NOTE | 2021-09-22 17:43 | XR ---
EXAMINATION TYPE: XR chest 1V portable DATE OF EXAM: 09/22/2021 COMPARISON: 08/31/2021 HISTORY: Short of breath TECHNIQUE: Single view FINDINGS: There is no heart failure. There is some air at the right diaphragm consistent with interpo sition of the hepatic flexure of the colon. No pleural effusion. Heart size is fairly normal. There i s elevated right diaphragm. I see no sign of pleural effusion. Bony thorax is intact. IMPRESSION: There is some mild chronic elevation of the right diaphragm. No acute lung disease.
--- NOTE | 2021-09-22 18:07 | ED ---
SOB HPI - General Chief Complaint: Shortness of Breath Stated Complaint: SJ Time Seen by Provider: 09/22/21 16:16 Source: EMS Mode of arrival: EMS Limitations: no limitations - History of Present Illness Initial Comments: Patient presents with cough. She has no fevers or chills. She has no weakness. She has no change in the amount of swelling that she chronically has in her legs. She has no belly or back pain. She has no nausea or vomiting. She has no tenderness or pressure in the chest. She has a history of chronic lung disease. She is not requiring more oxygen than usual. She has no fevers or chills. - Related Data Home Medications Medication Instructions Recorded Confirmed Carvedilol [Coreg] 25 mg PO BID@07,199906/07/17 09/22/21 Montelukast [Singulair] 10 mg PO DAILY@69906/28/18 09/22/21 DULoxetine HCL [Cymbalta] 60 mg PO BID@07,199908/15/18 09/22/21 allopurinoL [Zyloprim] 100 mg PO DAILY@69908/14/19 09/22/21 Diclofenac Sodium [Voltaren Gel] 2 gram TOPICAL QID PRN 04/03/20 09/22/21 Potassium Chloride ER [K-Dur 10] 10 meq PO DAILY@69904/03/20 09/22/21 Mirabegron [Myrbetriq] 25 mg PO DAILY@0700 07/14/20 09/22/21 Rivaroxaban [Xarelto] 10 mg PO DAILY@69907/30/20 09/22/21 Lovastatin [Mevacor] 10 mg PO HS@199908/16/20 09/22/21 lamoTRIgine [LaMICtal] 200 mg PO DAILY@69908/16/20 09/22/21 Gabapentin [Neurontin] 600 mg PO TID@07,1699,199912/01/20 09/22/21 Levothyroxine Sodium 125 mcg PO DAILY@62912/01/20 09/22/21 Ergocalciferol (Vitamin D2) 1,250 mcg PO Q30D@0700 12/09/20 09/22/21 [Vitamin D2 (50,000 Iu)] traMADol HCL 50 mg PO QID@02,07,14,12/09/20 09/22/21 Clotrimazole/Betamethasone Dip 1 applic TOPICAL BID PRN 01/20/21 09/22/21 [Lotrisone Cream] Omeprazole [PriLOSEC] 40 mg PO DAILY@0700 01/20/21 09/22/21 ondansetron HCL [Zofran] 8 mg PO Q6H PRN 01/20/21 09/22/21 Albuterol Inhaler [Ventolin Hfa 2 puff INHALATION RT-QID PRN 05/01/21 09/22/21 Inhaler] Fluticasone Nasal [place] [Flonase 1 spr EA NOSTRIL DAILY@69905/01/21 09/22/21 Nasal [place]] Vit C/E/Zn/Coppr/Lutein/Zeaxan 1 cap PO BID@0700,199905/01/21 09/22/21 [Preservision Areds 2 Softgel] busPIRone HCl [Buspar] 20 mg PO BID@0700,169905/01/21 09/22/21 lamoTRIgine [LaMICtal] 100 mg PO DAILY@169905/01/21 09/22/21 rOPINIRole HCL [Requip] 5 mg PO BID@0700,169905/01/21 09/22/21 Ferrous Sulfate [Iron (65 MG 325 mg PO DAILY@0700 07/03/21 09/22/21 Elemental)] Vitamin B Complex 1 cap PO DAILY@0700 07/03/21 09/22/21 Magnesium Hydroxide [Milk of 2,400 mg PO DAILY PRN 08/02/21 09/22/21 Magnesia] Sennosides [Senna] 8.6 mg PO BID@0700,199908/02/21 09/22/21 Aspirin EC [Ecotrin Low Dose] 81 mg PO BID@07,199908/30/21 09/22/21 Melatonin 3 mg PO HS@199908/30/21 09/22/21 Saliva Stimulant Agents Comb.3 10 ml PO TID@0700,170,199908/30/21 09/22/21 [Biotene Moisturizing Mouth] Nystatin/Triamcin Cream [Mycolog 1 applic TOPICAL BID@07,199909/22/21 09/22/21 100,000-0.1 Unit/gm-% Cream] Torsemide [Demadex] 50 mg PO SUTUTHSA@0700 09/22/21 09/22/21 Torsemide [Demadex] 100 mg PO MOWEFR@0700 09/22/21 09/22/21 cloNIDine HCL [Kapvay] 0.2 mg PO HS@199909/22/21 09/22/21 Allergies Allergy/AdvReac Type Severity Reaction Status Date / Time buspirone [From BuSpar] Allergy Unknown Verified 09/22/21 17:21 haloperidol [From Haldol] Allergy Swelling Verified 09/22/21 17:21 hydroxyzine [From Vistaril] Allergy Rash/Hives Verified 09/22/21 17:21 iodine Allergy Swelling Verified 09/22/21 17:21 Penicillins Allergy Swelling Verified 09/22/21 17:21 prochlorperazine Allergy Rash/Hives Verified 09/22/21 17:21 Sulfa (Sulfonamide Allergy Rash/Hives Verified 09/22/21 17:21 Antibiotics) Tetanus Vaccines and Toxoid Allergy Rash/Hives Verified 09/22/21 17:21 [Tetanus Vaccines & Toxoid] trifluoperazine HCl Allergy Unknown Verified 09/22/21 17:21 [From Stelazine] Review of Systems ROS Statement: Those systems with pertinent positive or pertinent negative responses have been documented in the HPI. ROS Other: All systems not noted in ROS Statement are negative. Past Medical History Past Medical History: Asthma, Heart Failure, COPD, Diabetes Mellitus, Eye Disorder, GERD/Reflux, Hyperlipidemia, Hypertension, Osteoarthritis (OA), Pneumonia, Pulmonary Embolus (PE), Thyroid Disorder Additional Past Medical History / Comment(s): Pt recently admitted to [facility] on 07/05/21 with fall/blunt trauma R side of face and abdomin. Other hx: NIDDM type II/diet controlled, neuropathy bilateral hands/feet, murmur, aortic valve stenosis, bronchitis, PE L upper lobe, chronic anemia, bilateral leg edema/past leg cellulitis, RLS, gout bilateral feet, chronic low minh and bilateral knee pain/henriated discs, UTIs, stress incontinence, starting of bilateral cataracts, bilateral macular degeneration, hypothyroid. History of Any Multi-Drug Resistant Organisms: None Reported Past Surgical History: Bariatric Surgery, Cholecystectomy, Heart Catheterization, Hernia Repair, Joint Replacement, Orthopedic Surgery Additional Past Surgical History / Comment(s): Total right knee replacement, abdominal hernia repair X3, left hip repair d/t fracture, gastric bypass with revision, EGD, colonoscopy. Past Anesthesia/Blood Transfusion Reactions: No Reported Reaction Past Psychological History: Anxiety, Bipolar, Depression, Panic Disorder, PTSD Smoking Status: Never smoker Past Alcohol Use History: None Reported Past Drug Use History: None Reported - Past Family History Mother Family Medical History: Cancer Additional Family Medical History / Comment(s): Lung cancer. Father Family Medical History: Diabetes Mellitus, Deep Vein Thrombosis (DVT), Myocardial Infarction ([place]), Pulmonary Embolus Additional Family Medical History / Comment(s): "My dad from a blood clot that traveled from his leg to his lung and also caused a heart attack." Brother(s) Family Medical History: Diabetes Mellitus Sister(s) Additional Family Medical History / Comment(s): "Her heart races too fast." General Exam Limitations: no limitations General appearance: alert, in no apparent distress Head exam: Present: atraumatic, normocephalic, normal inspection Eye exam: Present: normal appearance, PERRL, EOMI. Absent: scleral icterus, conjunctival injection, periorbital swelling ENT exam: Present: normal exam, mucous membranes moist Neck exam: Present: normal inspection. Absent: tenderness, meningismus, lymphadenopathy Respiratory exam: Present: normal lung sounds bilaterally. Absent: respiratory distress, wheezes, rales, rhonchi, stridor Cardiovascular Exam: Present: regular rate, normal rhythm, normal heart sounds. Absent: systolic murmur, diastolic murmur, rubs, gallop, clicks GI/Abdominal exam: Present: soft, normal bowel sounds. Absent: distended, tenderness, guarding, rebound, rigid Extremities exam: Present: normal inspection, full ROM, normal capillary refill. Absent: tenderness, pedal edema, joint swelling, calf tenderness Back exam: Present: normal inspection Neurological exam: Present: alert, oriented X3, CN II-XII intact Psychiatric exam: Present: normal affect, normal mood Skin exam: Present: warm, dry, intact, normal color. Absent: rash Course Vital Signs 09/22/21 09/22/21 09/22/21 16:15 16:52 17:01 Temperature 98.5 F Pulse Rate 80 84 80 Respiratory 20 Rate Blood Pressure 115/64 O2 Sat by Pulse 99 Oximetry Medical Decision Making - Medical Decision Making Patient presents with a cough. She is given breathing treatments and steroids. Her chest x-rays clear. She has normal vital signs. She is stable for discharge. Disposition Clinical Impression: Cough Disposition: HOME SELF-CARE Condition: Good Instructions (If sedation given, give patient instructions): Viral Syndrome (ED) Is patient prescribed a controlled substance at d/c from ED?: No Referrals: Sajan Pruitt MD [Primary Care Provider] - 1-2 days
[2021-09-22] MEDS ORDERED: rOPINIRole HCL 4 MG TABLET PO STA (18:19)
[2021-09-22 19:00] VITALS: BP 114/79; PULSE 86; RESP 18
[2021-09-22] MEDS ORDERED: ONDANSETRON ODT 4 MG TAB PO STA (19:08)
== END 2021-09-22 19:55 | disposition home or self-care (01) ==
LOC: EC 16:12
DX: R05.9 Cough, unspecified (principal); I11.0 Hypertensive heart disease with heart failure; J44.9 Chronic obstructive pulmonary disease, unspecified; E11.9 Type 2 diabetes mellitus without complications; K21.9 Gastro-esophageal reflux disease without esophagitis; E78.5 Hyperlipidemia, unspecified; M19.90 Unspecified osteoarthritis, unspecified site; I50.9 Heart failure, unspecified; F31.9 Bipolar disorder, unspecified; F43.10 Post-traumatic stress disorder, unspecified; F41.0 Panic disorder [episodic paroxysmal anxiety]; Z79.82 Long term (current) use of aspirin; Z79.51 Long term (current) use of inhaled steroids
CPT/HCPCS: 99284; 94640; 87635; 71045; J7512

== ENCOUNTER 2021-09-30 10:38 | Emergency (ER) | payer MEDICARE, OTHER ==
--- NOTE | 2021-09-30 10:52 | ED ---
General Adult HPI - General Stated complaint: mental health Time Seen by Provider: 09/30/21 10:39 Source: patient, EMS Mode of arrival: EMS Limitations: physical limitation - History of Present Illness Initial comments: Dictation was produced using [employer] dictation software. please excuse any grammatical, word or spelling errors. Chief Complaint: 61-year-old feel presents to the emergency room for alleged suicidal behavior History of Present Illness: Chin is a 61-year-old female she was brought in by EMS. Patient was allegedly holding a razor blade to her neck. She was upset because staff at the jail would not check on her early enough in the morning. Patient is well-known to emergency department for multiple psychiatric issues. Patient states she was upset. She does not feel like she needs to be here in emergency department. She is apologetic for which she did. She states that she wants to go back but wants to just make sure that her breathing is okay. She tested positive for COVID-19. She is on day 8 of her quarantine. She and is frustrated that she is short of breath despite having normal vitals. States she's been symptom medical for 8 days. The ROS documented in this emergency department record has been reviewed and confirmed by me. Those systems with pertinent positive or negative responses have been documented in the HPI. All other systems are other negative and/or noncontributory. PHYSICAL EXAM: General Impression: Alert and oriented x3, not in acute distress HEENT: Normocephalic atraumatic, extra-ocular movements intact, pupils equal and reactive to light bilaterally, mucous membranes moist. Cardiovascular: Heart regular rate and rhythm Chest: Able to complete full sentences, no retractions, no tachypnea Abdomen: abdomen soft, non-tender, non-distended, no organomegaly Musculoskeletal: Pulses present and equal in all extremities, no peripheral edema Motor: no focal deficits noted Neurological: CN II-XII grossly intact, no focal motor or sensory deficits noted Skin: Intact with no visualized rashes Psych: Normal affect and mood ED course: 61-year-old male presents to the emergency department for alleged suicidal behavior as upon arrival are within acceptable limits. Patient is very apologetic for which she did states that she did out of frustration because jail staff would not check on her early enough. Patient is on day 8 of Covid 19 quarantine. Patient met criteria for [place] antibodies she was given monoclonal antibodies and observe the emergency department approximately one hour after the infusion. Patient had no couple occasions. Patient discharge back to jail. - Related Data Home Medications Medication Instructions Recorded Confirmed Carvedilol [Coreg] 25 mg PO BID@0700,199906/07/17 09/22/21 Montelukast [Singulair] 10 mg PO DAILY@0706/28/18 09/22/21 DULoxetine HCL [Cymbalta] 60 mg PO BID@07,199908/15/18 09/22/21 allopurinoL [Zyloprim] 100 mg PO DAILY@69908/14/19 09/22/21 Diclofenac Sodium [Voltaren Gel] 2 gram TOPICAL QID PRN 04/03/20 09/22/21 Potassium Chloride ER [K-Dur 10] 10 meq PO DAILY@69904/03/20 09/22/21 Mirabegron [Myrbetriq] 25 mg PO DAILY@69907/14/20 09/22/21 Rivaroxaban [Xarelto] 10 mg PO DAILY@0707/30/20 09/22/21 Lovastatin [Mevacor] 10 mg PO HS@199908/16/20 09/22/21 lamoTRIgine [LaMICtal] 200 mg PO DAILY@69908/16/20 09/22/21 Gabapentin [Neurontin] 600 mg PO TID@0700,170,199912/01/20 09/22/21 Levothyroxine Sodium 125 mcg PO DAILY@0630 12/01/20 09/22/21 Ergocalciferol (Vitamin D2) 1,250 mcg PO Q30D@0700 12/09/20 09/22/21 [Vitamin D2 (50,000 Iu)] traMADol HCL 50 mg PO QID@02,,,12/09/20 09/22/21 Clotrimazole/Betamethasone Dip 1 applic TOPICAL BID PRN 01/20/21 09/22/21 [Lotrisone Cream] Omeprazole [PriLOSEC] 40 mg PO DAILY@0700 01/20/21 09/22/21 ondansetron HCL [Zofran] 8 mg PO Q6H PRN 01/20/21 09/22/21 Albuterol Inhaler [Ventolin Hfa 2 puff INHALATION RT-QID PRN 05/01/21 09/22/21 Inhaler] Fluticasone Nasal [place] [Flonase 1 spr EA NOSTRIL DAILY@0705/01/21 09/22/21 Nasal [place]] Vit C/E/Zn/Coppr/Lutein/Zeaxan 1 cap PO BID@699,199905/01/21 09/22/21 [Preservision Areds 2 Softgel] busPIRone HCl [Buspar] 20 mg PO BID@0700,17005/01/21 09/22/21 lamoTRIgine [LaMICtal] 100 mg PO DAILY@169905/01/21 09/22/21 rOPINIRole HCL [Requip] 5 mg PO BID@0700,17005/01/21 09/22/21 Ferrous Sulfate [Iron (65 MG 325 mg PO DAILY@69907/03/21 09/22/21 Elemental)] Vitamin B Complex 1 cap PO DAILY@0707/03/21 09/22/21 Magnesium Hydroxide [Milk of 2,400 mg PO DAILY PRN 08/02/21 09/22/21 Magnesia] Sennosides [Senna] 8.6 mg PO BID@699,199908/02/21 09/22/21 Aspirin EC [Ecotrin Low Dose] 81 mg PO BID@07,199908/30/21 09/22/21 Melatonin 3 mg PO HS@199908/30/21 09/22/21 Saliva Stimulant Agents Comb.3 10 ml PO TID@0700,170,199908/30/21 09/22/21 [Biotene Moisturizing Mouth] Nystatin/Triamcin Cream [Mycolog 1 applic TOPICAL BID@699,199909/22/21 09/22/21 100,000-0.1 Unit/gm-% Cream] Torsemide [Demadex] 50 mg PO SUTUTHSA@69909/22/21 09/22/21 Torsemide [Demadex] 100 mg PO MOWEFR@69909/22/21 09/22/21 cloNIDine HCL [Kapvay] 0.2 mg PO HS@199909/22/21 09/22/21 Allergies Allergy/AdvReac Type Severity Reaction Status Date / Time buspirone [From BuSpar] Allergy Unknown Verified 09/30/21 10:43 haloperidol [From Haldol] Allergy Swelling Verified 09/30/21 10:43 hydroxyzine [From Vistaril] Allergy Rash/Hives Verified 09/30/21 10:43 iodine Allergy Swelling Verified 09/30/21 10:43 Penicillins Allergy Swelling Verified 09/30/21 10:43 prochlorperazine Allergy Rash/Hives Verified 09/30/21 10:43 Sulfa (Sulfonamide Allergy Rash/Hives Verified 09/30/21 10:43 Antibiotics) Tetanus Vaccines and Toxoid Allergy Rash/Hives Verified 09/30/21 10:43 [Tetanus Vaccines & Toxoid] trifluoperazine HCl Allergy Unknown Verified 09/30/21 10:43 [From Stelazine] Review of Systems ROS Statement: Those systems with pertinent positive or pertinent negative responses have been documented in the HPI. ROS Other: All systems not noted in ROS Statement are negative. Past Medical History Past Medical History: Asthma, Heart Failure, COPD, Diabetes Mellitus, Eye Disorder, GERD/Reflux, Hyperlipidemia, Hypertension, Osteoarthritis (OA), Pneumonia, Pulmonary Embolus (PE), Thyroid Disorder Additional Past Medical History / Comment(s): Pt recently admitted to [facility] on 07/05/21 with fall/blunt trauma R side of face and abdomen. Other hx: NIDDM type II/diet controlled, neuropathy bilateral hands/feet, murmur, aortic valve stenosis, bronchitis, PE L upper lobe, chronic anemia, bilateral leg edema/past leg cellulitis, RLS, gout bilateral feet, chronic low minh and bilateral knee pain/henriated discs, UTIs, stress incontinence, starting of bilateral cataracts, bilateral macular degeneration, hypothyroid. History of Any Multi-Drug Resistant Organisms: None Reported Past Surgical History: Bariatric Surgery, Cholecystectomy, Heart Catheterization, Hernia Repair, Joint Replacement, Orthopedic Surgery Additional Past Surgical History / Comment(s): Total right knee replacement, abdominal hernia repair X3, left hip repair d/t fracture, gastric bypass with revision, EGD, colonoscopy. Past Anesthesia/Blood Transfusion Reactions: No Reported Reaction Past Psychological History: Anxiety, Bipolar, Depression, Panic Disorder, PTSD Smoking Status: Never smoker Past Alcohol Use History: None Reported Past Drug Use History: None Reported - Past Family History Mother Family Medical History: Cancer Additional Family Medical History / Comment(s): Lung cancer. Father Family Medical History: Diabetes Mellitus, Deep Vein Thrombosis (DVT), Myocardial Infarction ([place]), Pulmonary Embolus Additional Family Medical History / Comment(s): "My dad from a blood clot that traveled from his leg to his lung and also caused a heart attack." Brother(s) Family Medical History: Diabetes Mellitus Sister(s) Additional Family Medical History / Comment(s): "Her heart races too fast." General Exam Limitations: physical limitation Course Vital Signs 09/30/21 09/30/21 09/30/21 10:43 12:00 12:31 Temperature 97.8 F Pulse Rate 79 68 Respiratory 26 H 18 18 Rate Blood Pressure 124/83 133/93 O2 Sat by Pulse 98 95 Oximetry 09/30/21 13:00 Temperature 97.9 F Pulse Rate Respiratory Rate Blood Pressure O2 Sat by Pulse Oximetry Disposition Clinical Impression: COVID-19, Suicidal behavior Disposition: HOME SELF-CARE Condition: Good Instructions (If sedation given, give patient instructions): Coronavirus Disease 2019 (COVID-19) Is patient prescribed a controlled substance at d/c from ED?: No Referrals: Sajan Pruitt MD [Primary Care Provider] - 1-2 days
[2021-09-30] MEDS ORDERED: LORazepam 1 MG TAB PO STA (11:01)
--- NOTE | 2021-09-30 11:17 | XR ---
EXAMINATION TYPE: XR chest 1V DATE OF EXAM: 09/30/2021 COMPARISON: 09/22/2021 HISTORY: Shortness of breath TECHNIQUE: Single frontal view of the chest is obtained. FINDINGS: There is no focal air space opacity, pleural effusion, or pneumothorax seen. There is mode rate to marked cardiomegaly but no overt pulmonary vascular congestion or pulmonary edema. The osseous structures are grossly intact. IMPRESSION: No acute process.
[2021-09-30] MEDS ORDERED: SODIUM CHLORIDE 0.9% 50 ML IVPB ONE (11:30)
[2021-09-30] MEDS ORDERED: SOTROVIMAB (EUA) 500 MG in SODIUM CHLORIDE 0.9% 100 ML IVPB ONE (11:30)
[2021-09-30 12:10] VITALS: RESP 18
[2021-09-30 12:32] VITALS: BP 133/93; PULSE 68
[2021-09-30] MEDS ORDERED: ONDANSETRON 4 MG/2 ML VIAL IVP STA (12:44)
[2021-09-30 13:00] VITALS: TEMP 97.9
== END 2021-09-30 13:20 | disposition home or self-care (01) ==
LOC: EC 10:38
DX: U07.1 COVID-19 (principal); R45.851 Suicidal ideations; J45.909 Unspecified asthma, uncomplicated; I11.0 Hypertensive heart disease with heart failure; I50.9 Heart failure, unspecified; E11.9 Type 2 diabetes mellitus without complications; K21.9 Gastro-esophageal reflux disease without esophagitis; E78.5 Hyperlipidemia, unspecified; M19.90 Unspecified osteoarthritis, unspecified site; E07.9 Disorder of thyroid, unspecified; F41.9 Anxiety disorder, unspecified; F31.9 Bipolar disorder, unspecified; F43.12 Post-traumatic stress disorder, chronic; Z79.82 Long term (current) use of aspirin; Z88.0 Allergy status to penicillin; Z88.2 Allergy status to sulfonamides; Z88.7 Allergy status to serum and vaccine; Z86.711 Personal history of pulmonary embolism; Z87.440 Personal history of urinary (tract) infections; Z98.84 Bariatric surgery status; Z90.49 Acquired absence of other specified parts of digestive tract; Z96.651 Presence of right artificial knee joint
CPT/HCPCS: 99285; 96374; 71045; J2405; Q0247

== ENCOUNTER → 2021-10-10 | Outpatient (CLI) | payer MEDICARE, OTHER ==
--- NOTE | 2021-10-10 09:29 | USB ---
Reason for exam: additional evaluation requested from abnormal screening. History: Patient is postmenopausal and is nulliparous. Family history of breast cancer in maternal grandmother at age 50, breast cancer in maternal cousin at age 50, and unknown cancer in aunt. Physical Findings: Nurse Summary: increased nodularity 10-11 o'clock axillary tail, 1-1.5cm palpable 9-10 o'clock (nurse db). US Breast Workup Limited RT Right limited breast ultrasound including focal area of concern, retroareolar and axilla demonstrates a 1.8 x 0.6 x 1.3cm lesion at 10 o'clock. Right breast scanned 6-12 o'clock. These results were verbally communicated with the patient and result sheet given to the patient on 10/10/21. ASSESSMENT: Probably benign, BI-RAD 3 RECOMMENDATION: Follow-up diagnostic mammogram and ultrasound of the right breast in 6 months.
== END | disposition home or self-care (01) ==
LOC: RADUSWWP 07:47
PROVIDERS: ATTEND Family Medicine
DX: R92.8 Other abnormal and inconclusive findings on diagnostic imaging of breast (principal); Z78.0 Asymptomatic menopausal state; Z80.3 Family history of malignant neoplasm of breast

== ENCOUNTER 2021-10-25 17:39 | Emergency (ER) | payer MEDICARE, OTHER ==
[2021-10-25] MEDS ORDERED: HYDROcodone/APAP 5-325MG 1 EACH TAB PO STA (18:24)
--- NOTE | 2021-10-25 18:28 | ED ---
General Adult HPI - General Chief complaint: Extremity Injury, Lower Stated complaint: Fall Time Seen by Provider: 10/25/21 17:56 Source: patient, EMS, RN notes reviewed Mode of arrival: EMS Limitations: physical limitation - History of Present Illness Initial comments: Patient is a 7-year-old female presenting to the emergency Department with left knee injury. Patient was getting up from the table when she caught her arm and twisted and fell on her left knee. Patient does have history of previous knee problems. Patient landed on her knee. Patient states discomfort does radiate up the leg some as well. No head injury or loss of consciousness. No neck or back pain. No chest pain or dyspnea. No abdominal pain or injury. - Related Data Home Medications Medication Instructions Recorded Confirmed Carvedilol [Coreg] 25 mg PO BID@0700,199906/07/17 10/25/21 Montelukast [Singulair] 10 mg PO DAILY@0700 06/28/18 10/25/21 DULoxetine HCL [Cymbalta] 60 mg PO BID@699,199908/15/18 10/25/21 allopurinoL [Zyloprim] 100 mg PO DAILY@0700 08/14/19 10/25/21 Diclofenac Sodium [Voltaren Gel] 2 gram TOPICAL QID PRN 04/03/20 10/25/21 Potassium Chloride ER [K-Dur 10] 10 meq PO DAILY@0700 04/03/20 10/25/21 Mirabegron [Myrbetriq] 25 mg PO DAILY@0700 07/14/20 10/25/21 Rivaroxaban [Xarelto] 10 mg PO DAILY@0707/30/20 10/25/21 Lovastatin [Mevacor] 10 mg PO HS@199908/16/20 10/25/21 lamoTRIgine [LaMICtal] 200 mg PO DAILY@0700 08/16/20 10/25/21 Gabapentin [Neurontin] 600 mg PO TID@0700,1699,199912/01/20 10/25/21 Ergocalciferol (Vitamin D2) 1,250 mcg PO Q30D@0700 12/09/20 10/25/21 [Vitamin D2 (50,000 Iu)] traMADol HCL 50 mg PO QID@,,,12/09/20 10/25/21 Clotrimazole/Betamethasone Dip 1 applic TOPICAL BID PRN 01/20/21 10/25/21 [Lotrisone Cream] Omeprazole [PriLOSEC] 40 mg PO DAILY@0701/20/21 10/25/21 ondansetron HCL [Zofran] 8 mg PO Q6H PRN 01/20/21 10/25/21 Fluticasone Nasal [place] [Flonase 1 spr EA NOSTRIL DAILY@69905/01/21 10/25/21 Nasal [place]] Vit C/E/Zn/Coppr/Lutein/Zeaxan 1 cap PO BID@699,199905/01/21 10/25/21 [Preservision Areds 2 Softgel] busPIRone HCl [Buspar] 20 mg PO BID@0700,169905/01/21 10/25/21 lamoTRIgine [LaMICtal] 100 mg PO DAILY@169905/01/21 10/25/21 rOPINIRole HCL [Requip] 5 mg PO BID@0700,169905/01/21 10/25/21 Ferrous Sulfate [Iron (65 MG 325 mg PO DAILY@69907/03/21 10/25/21 Elemental)] Vitamin B Complex 1 cap PO DAILY@69907/03/21 10/25/21 Magnesium Hydroxide [Milk of 2,400 mg PO DAILY PRN 08/02/21 10/25/21 Magnesia] Sennosides [Senna] 8.6 mg PO BID@699,199908/02/21 10/25/21 Aspirin EC [Ecotrin Low Dose] 81 mg PO HS@199908/30/21 10/25/21 Melatonin 3 mg PO HS@199908/30/21 10/25/21 Saliva Stimulant Agents Comb.3 10 ml PO TID@699,1699,199908/30/21 10/25/21 [Biotene Moisturizing Mouth] Nystatin/Triamcin Cream [Mycolog 1 applic TOPICAL BID@699,199909/22/21 10/25/21 100,000-0.1 Unit/gm-% Cream] Torsemide [Demadex] 50 mg PO SUTUTHSA@69909/22/21 10/25/21 Torsemide [Demadex] 100 mg PO MOWEFR@69909/22/21 10/25/21 cloNIDine HCL [Kapvay] 0.2 mg PO HS@199909/22/21 10/25/21 Ascorbic Acid [Vitamin C] 1,000 mg PO DAILY@0700 10/25/21 10/25/21 Levothyroxine Sodium [Synthroid] 150 mcg PO DAILY@0610/25/21 10/25/21 Zinc 50 mg PO BID@10/25/21 10/25/21 guaiFENesin [Mucinex] 1,200 mg PO BID@07,199910/25/21 10/25/21 Allergies Allergy/AdvReac Type Severity Reaction Status Date / Time buspirone [From BuSpar] Allergy Unknown Verified 10/25/21 18:37 haloperidol [From Haldol] Allergy Swelling Verified 10/25/21 18:37 hydroxyzine [From Vistaril] Allergy Rash/Hives Verified 10/25/21 18:37 iodine Allergy Swelling Verified 10/25/21 18:37 Penicillins Allergy Swelling Verified 10/25/21 18:37 prochlorperazine Allergy Rash/Hives Verified 10/25/21 18:37 Sulfa (Sulfonamide Allergy Rash/Hives Verified 10/25/21 18:37 Antibiotics) Tetanus Vaccines and Toxoid Allergy Rash/Hives Verified 10/25/21 18:37 [Tetanus Vaccines & Toxoid] trifluoperazine HCl Allergy Unknown Verified 10/25/21 18:37 [From Stelazine] Review of Systems ROS Statement: Those systems with pertinent positive or pertinent negative responses have been documented in the HPI. ROS Other: All systems not noted in ROS Statement are negative. Constitutional: Denies: fever Eyes: Denies: eye pain ENT: Denies: ear pain Respiratory: Denies: cough Cardiovascular: Denies: chest pain Endocrine: Denies: fatigue Gastrointestinal: Denies: abdominal pain Genitourinary: Denies: dysuria Musculoskeletal: Reports: as per HPI. Denies: back pain Skin: Denies: rash Neurological: Denies: weakness Past Medical History Past Medical History: Asthma, Heart Failure, COPD, Diabetes Mellitus, Eye Disorder, GERD/Reflux, Hyperlipidemia, Hypertension, Osteoarthritis (OA), Pneumonia, Pulmonary Embolus (PE), Thyroid Disorder Additional Past Medical History / Comment(s): Pt recently admitted to [facility] on 07/05/21 with fall/blunt trauma R side of face and abdomen. Other hx: NIDDM type II/diet controlled, neuropathy bilateral hands/feet, murmur, aortic valve stenosis, bronchitis, PE L upper lobe, chronic anemia, bilateral leg edema/past leg cellulitis, RLS, gout bilateral feet, chronic low minh and bilateral knee pain/henriated discs, UTIs, stress incontinence, starting of bilateral cataracts, bilateral macular degeneration, hypothyroid. History of Any Multi-Drug Resistant Organisms: None Reported Past Surgical History: Bariatric Surgery, Cholecystectomy, Heart Catheterization, Hernia Repair, Joint Replacement, Orthopedic Surgery Additional Past Surgical History / Comment(s): Total right knee replacement, abdominal hernia repair X3, left hip repair d/t fracture, gastric bypass with revision, EGD, colonoscopy. Past Anesthesia/Blood Transfusion Reactions: No Reported Reaction Past Psychological History: Anxiety, Bipolar, Depression, Panic Disorder, PTSD Smoking Status: Never smoker Past Alcohol Use History: None Reported Past Drug Use History: None Reported - Past Family History Mother Family Medical History: Cancer Additional Family Medical History / Comment(s): Lung cancer. Father Family Medical History: Diabetes Mellitus, Deep Vein Thrombosis (DVT), Myocardial Infarction ([place]), Pulmonary Embolus Additional Family Medical History / Comment(s): "My dad from a blood clot that traveled from his leg to his lung and also caused a heart attack." Brother(s) Family Medical History: Diabetes Mellitus Sister(s) Additional Family Medical History / Comment(s): "Her heart races too fast." General Exam Limitations: physical limitation General appearance: alert, in no apparent distress Head exam: Present: atraumatic Eye exam: Present: normal appearance Neck exam: Present: normal inspection. Absent: tenderness Respiratory exam: Present: normal lung sounds bilaterally Cardiovascular Exam: Present: regular rate, normal rhythm Expanded Peripheral pulses: 2+: Posterior Tibialis (L), Dorsalis Pedis (L) GI/Abdominal exam: Present: soft. Absent: tenderness Extremities exam: Present: tenderness (Moderate tenderness diffuse left knee. Minimal tenderness distal femur), other (Distally the extremity is neurovascular intact) Neurological exam: Present: alert. Absent: motor sensory deficit Psychiatric exam: Present: normal affect, normal mood Skin exam: Present: normal color Course Vital Signs 10/25/21 17:58 Temperature 97.2 F L Pulse Rate 70 Respiratory 18 Rate Blood Pressure 143/83 O2 Sat by Pulse 99 Oximetry Medical Decision Making - Medical Decision Making Patient reevaluated and resting comfortably in bed, drink and pop. Patient updated on results and need for follow-up. Patient requests discharge home and a sandwich. - Radiology Data Radiology results: image reviewed (Left knee and femur x-ray revealed no acute abnormality) Disposition Clinical Impression: Knee contusion Disposition: HOME SELF-CARE Condition: Stable Instructions (If sedation given, give patient instructions): Knee Pain (ED) Additional Instructions: Please do follow-up with your doctor in the next day or 2 for recheck. Return for increased pain, weakness, worsening or changing symptoms or other concerns. Is patient prescribed a controlled substance at d/c from ED?: No Referrals: Sajan Pruitt MD [Primary Care Provider] - 1-2 days Time of Disposition: 19:08
--- NOTE | 2021-10-25 18:57 | XR ---
RESULT: HISTORY: fall TECHNIQUE: 2 views of the left femur. 3 views of the left knee. COMPARISON: None. FINDINGS: There is limited evaluation of the proximal femur due to body habitus. There is no acute fracture or dislocation of the left femur or knee. There is moderate to severe oste oarthritis of the knee lateral compartment and mild to moderate elsewhere. Prior ORIF of the left pro ximal femur seen. Scattered dystrophic/benign subcutaneous soft tissue calcifications about the later al thigh seen. IMPRESSION: No acute osseous abnormality of the left femur knee within the limitations of the study.
[2021-10-25 20:13] VITALS: BP 145/84; PULSE 95; RESP 16; TEMP 98.5
== END 2021-10-25 20:10 | disposition home or self-care (01) ==
LOC: EC 17:39
DX: S80.02XA Contusion of left knee, initial encounter (principal); J44.9 Chronic obstructive pulmonary disease, unspecified; I11.0 Hypertensive heart disease with heart failure; I50.9 Heart failure, unspecified; E11.9 Type 2 diabetes mellitus without complications; K21.9 Gastro-esophageal reflux disease without esophagitis; E78.5 Hyperlipidemia, unspecified; M19.90 Unspecified osteoarthritis, unspecified site; E07.9 Disorder of thyroid, unspecified; F41.9 Anxiety disorder, unspecified; F31.9 Bipolar disorder, unspecified; F43.10 Post-traumatic stress disorder, unspecified; Z79.82 Long term (current) use of aspirin; Z88.0 Allergy status to penicillin; Z88.2 Allergy status to sulfonamides; Z88.7 Allergy status to serum and vaccine; Z86.711 Personal history of pulmonary embolism; Z98.84 Bariatric surgery status; Z90.49 Acquired absence of other specified parts of digestive tract; Z96.651 Presence of right artificial knee joint; W18.30XA Fall on same level, unspecified, initial encounter
CPT/HCPCS: 99283

== ENCOUNTER 2021-11-15 18:01 | Emergency (ER) | payer MEDICARE, OTHER ==
[2021-11-15 18:37] VITALS: TEMP 98.9
--- NOTE | 2021-11-15 21:28 | ED ---
General Adult HPI - General Chief complaint: Psychiatric Symptoms Stated complaint: Anxiety Time Seen by Provider: 11/15/21 20:50 Source: patient, RN notes reviewed Mode of arrival: wheelchair Limitations: no limitations - History of Present Illness Initial comments: Patient is a pleasant 61-year-old female presenting to the emergency department feeling paranoid and with mood swings. Symptoms have progressed over several days. Patient does have history of similar symptoms previously. Patient feels like she is angry and acting out. Patient is throwing plates. No suicidal or homicidal thoughts however patient does feel very angry. Patient feels paranoid that people are talking about her. Patient also at times sees bugs are crawling that she does not believe her actually there. No alcohol or street drug use. - Related Data Home Medications Medication Instructions Recorded Confirmed Carvedilol [Coreg] 25 mg PO BID@0700,199906/07/17 11/15/21 Montelukast [Singulair] 10 mg PO DAILY@0706/28/18 11/15/21 DULoxetine HCL [Cymbalta] 60 mg PO BID@08/15/18 11/15/21 allopurinoL [Zyloprim] 100 mg PO DAILY@69908/14/19 11/15/21 Diclofenac Sodium [Voltaren Gel] 2 gram TOPICAL QID PRN 04/03/20 11/15/21 Potassium Chloride ER [K-Dur 10] 10 meq PO DAILY@0700 04/03/20 11/15/21 Mirabegron [Myrbetriq] 25 mg PO DAILY@0700 07/14/20 11/15/21 Rivaroxaban [Xarelto] 10 mg PO DAILY@69907/30/20 11/15/21 Lovastatin [Mevacor] 10 mg PO HS@199908/16/20 11/15/21 lamoTRIgine [LaMICtal] 200 mg PO DAILY@69908/16/20 11/15/21 Gabapentin [Neurontin] 600 mg PO TID@0700,170,199912/01/20 11/15/21 Ergocalciferol (Vitamin D2) 1,250 mcg PO Q30D@0700 12/09/20 11/15/21 [Vitamin D2 (50,000 Iu)] traMADol HCL 50 mg PO TID@0700,1700,199912/09/20 11/15/21 Omeprazole [PriLOSEC] 40 mg PO DAILY@69901/20/21 11/15/21 ondansetron HCL [Zofran] 8 mg PO Q6H PRN 01/20/21 11/15/21 Fluticasone Nasal [place] [Flonase 2 spr EA NOSTRIL DAILY PRN 05/01/21 11/15/21 Nasal [place]] Vit C/E/Zn/Coppr/Lutein/Zeaxan 1 cap PO BID@699,199905/01/21 11/15/21 [Preservision Areds 2 Softgel] busPIRone HCl [Buspar] 20 mg PO BID@0700,169905/01/21 11/15/21 lamoTRIgine [LaMICtal] 100 mg PO DAILY@169905/01/21 11/15/21 rOPINIRole HCL [Requip] 5 mg PO BID@0700,169905/01/21 11/15/21 Ferrous Sulfate [Iron (65 MG 325 mg PO DAILY@69907/03/21 11/15/21 Elemental)] Vitamin B Complex 1 cap PO DAILY@69907/03/21 11/15/21 Magnesium Hydroxide [Milk of 2,400 mg PO DAILY PRN 08/02/21 11/15/21 Magnesia] Sennosides [Senna] 8.6 mg PO BID@07,199908/02/21 11/15/21 Aspirin EC [Ecotrin Low Dose] 81 mg PO HS@199908/30/21 11/15/21 Melatonin 3 mg PO HS@199908/30/21 11/15/21 Saliva Stimulant Agents Comb.3 10 ml PO TID@0700,1699,199908/30/21 11/15/21 [Biotene Moisturizing Mouth] Nystatin/Triamcin Cream [Mycolog 1 applic TOPICAL BID@699,199909/22/21 11/15/21 100,000-0.1 Unit/gm-% Cream] Torsemide [Demadex] 50 mg PO SUTUTHSA@69909/22/21 11/15/21 Torsemide [Demadex] 100 mg PO MOWEFR@69909/22/21 11/15/21 cloNIDine HCL [Kapvay] 0.2 mg PO HS@199909/22/21 11/15/21 Levothyroxine Sodium [Synthroid] 150 mcg PO DAILY@0610/25/21 11/15/21 Albuterol Inhaler [Ventolin Hfa 2 puff INHALATION RT-QID PRN 11/15/21 11/15/21 Inhaler] Doxepin HCl 3 mg PO HS@199911/15/21 11/15/21 Feosol 45mg Natural 1 tab PO DAILY@0711/15/21 11/15/21 Melatonin 3 mg PO HS PRN 11/15/21 11/15/21 Trolamine Salicylate/Aloe Vera 1 applic TOPICAL BID PRN 11/15/21 11/15/21 [Aspercreme 10% Cream] Allergies Allergy/AdvReac Type Severity Reaction Status Date / Time buspirone [From BuSpar] Allergy Unknown Verified 11/15/21 21:42 haloperidol [From Haldol] Allergy Swelling Verified 11/15/21 21:42 hydroxyzine [From Vistaril] Allergy Rash/Hives Verified 11/15/21 21:42 iodine Allergy Swelling Verified 11/15/21 21:42 Penicillins Allergy Swelling Verified 11/15/21 21:42 throat prochlorperazine Allergy Rash/Hives Verified 11/15/21 21:42 Sulfa (Sulfonamide Allergy Rash/Hives Verified 11/15/21 21:42 Antibiotics) Tetanus Vaccines and Toxoid Allergy Rash/Hives Verified 11/15/21 21:42 [Tetanus Vaccines & Toxoid] trifluoperazine HCl Allergy Unknown Verified 11/15/21 21:42 [From Stelazine] Review of Systems ROS Statement: Those systems with pertinent positive or pertinent negative responses have been documented in the HPI. ROS Other: All systems not noted in ROS Statement are negative. Constitutional: Denies: fever Eyes: Denies: eye pain ENT: Denies: ear pain Respiratory: Denies: cough Cardiovascular: Denies: chest pain Endocrine: Denies: fatigue Gastrointestinal: Denies: abdominal pain Genitourinary: Denies: urgency Musculoskeletal: Denies: back pain Skin: Denies: rash Neurological: Denies: weakness Psychiatric: Reports: as per HPI Past Medical History Past Medical History: Asthma, Heart Failure, COPD, Diabetes Mellitus, Eye Disorder, GERD/Reflux, Hyperlipidemia, Hypertension, Osteoarthritis (OA), Pneumonia, Pulmonary Embolus (PE), Thyroid Disorder Additional Past Medical History / Comment(s): Pt recently admitted to [facility] on 07/05/21 with fall/blunt trauma R side of face and abdomen. Other hx: NIDDM type II/diet controlled, neuropathy bilateral hands/feet, murmur, aortic valve stenosis, bronchitis, PE L upper lobe, chronic anemia, bilateral leg edema/past leg cellulitis, RLS, gout bilateral feet, chronic low minh and bilateral knee pain/henriated discs, UTIs, stress incontinence, starting of bilateral cataracts, bilateral macular degeneration, hypothyroid. History of Any Multi-Drug Resistant Organisms: None Reported Past Surgical History: Bariatric Surgery, Cholecystectomy, Heart Catheterization, Hernia Repair, Joint Replacement, Orthopedic Surgery Additional Past Surgical History / Comment(s): Total right knee replacement, abdominal hernia repair X3, left hip repair d/t fracture, gastric bypass with revision, EGD, colonoscopy. Past Anesthesia/Blood Transfusion Reactions: No Reported Reaction Past Psychological History: Anxiety, Bipolar, Depression, Panic Disorder, PTSD Smoking Status: Never smoker Past Alcohol Use History: None Reported Past Drug Use History: None Reported - Past Family History Mother Family Medical History: Cancer Additional Family Medical History / Comment(s): Lung cancer. Father Family Medical History: Diabetes Mellitus, Deep Vein Thrombosis (DVT), Myocardial Infarction ([place]), Pulmonary Embolus Additional Family Medical History / Comment(s): "My dad from a blood clot that traveled from his leg to his lung and also caused a heart attack." Brother(s) Family Medical History: Diabetes Mellitus Sister(s) Additional Family Medical History / Comment(s): "Her heart races too fast." General Exam Limitations: no limitations General appearance: alert, in no apparent distress Head exam: Present: normocephalic Eye exam: Present: normal appearance Neck exam: Present: normal inspection Respiratory exam: Present: normal lung sounds bilaterally Cardiovascular Exam: Present: regular rate, normal rhythm GI/Abdominal exam: Present: soft. Absent: tenderness Extremities exam: Present: normal inspection Neurological exam: Present: alert Psychiatric exam: Present: normal affect, normal mood Skin exam: Present: normal color Course Vital Signs 03/16/22 03/16/22 18:31 21:55 Temperature 98.9 F Pulse Rate 73 80 Respiratory 18 20 Rate Blood Pressure 153/76 142/65 O2 Sat by Pulse 95 100 Oximetry Medical Decision Making - Medical Decision Making Patient was discharged without instructions - Lab Data Lab Results 11/15/21 Range/Units 23:01 Urine Opiates Screen Not Detected (NotDetected) Ur Oxycodone Screen Not Detected (NotDetected) Urine Methadone Screen Not Detected (NotDetected) Ur Propoxyphene Screen Not Detected (NotDetected) Ur Barbiturates Screen Not Detected (NotDetected) U Tricyclic Antidepress Not Detected (NotDetected) Ur Phencyclidine Scrn Not Detected (NotDetected) Ur Amphetamines Screen Not Detected (NotDetected) U Methamphetamines Scrn Not Detected (NotDetected) U Benzodiazepines Scrn Not Detected (NotDetected) Urine Cocaine Screen Not Detected (NotDetected) U Marijuana (THC) Screen Not Detected (NotDetected) Disposition Clinical Impression: Bipolar disorder Disposition: HOME SELF-CARE Is patient prescribed a controlled substance at d/c from ED?: No Referrals: None,Stated [Primary Care Provider] - 1-2 days
[2021-11-15 21:58] VITALS: BP 142/65; PULSE 80; RESP 20
[2021-11-15 23:22] LABS: Amphetamine Screen,Urine Not Detected (NotDetected); Barbiturate Screen,Urine Not Detected (NotDetected); Benzodiazepines Screen,Urine Not Detected (NotDetected); Cocaine Screen,Urine Not Detected (NotDetected); Methadone Screen, Urine Not Detected (NotDetected); Opiate Screen,Urine Not Detected (NotDetected); Oxycodone Screen, Urine Not Detected (NotDetected); Phencyclidine Screen,Urine Not Detected (NotDetected); Tricyclic Antidepressant,Urine Not Detected (NotDetected); Urn Cannabinoid Scrn Not Detected (NotDetected)
[2021-11-16] MEDS ORDERED: diphenhydrAMINE 50 MG CAP PO STA (01:53)
[2021-11-16] MEDS ORDERED: traMADol 50 MG TAB PO STA (01:55)
== END 2021-11-16 03:19 | disposition home or self-care (01) ==
LOC: EC 18:01
DX: F31.9 Bipolar disorder, unspecified (principal); E11.40 Type 2 diabetes mellitus with diabetic neuropathy, unspecified; I11.0 Hypertensive heart disease with heart failure; R50.9 Fever, unspecified; J44.9 Chronic obstructive pulmonary disease, unspecified; E78.5 Hyperlipidemia, unspecified; K21.9 Gastro-esophageal reflux disease without esophagitis; M19.90 Unspecified osteoarthritis, unspecified site; E03.9 Hypothyroidism, unspecified; F41.9 Anxiety disorder, unspecified; Z79.01 Long term (current) use of anticoagulants; Z79.82 Long term (current) use of aspirin; Z79.51 Long term (current) use of inhaled steroids; Z79.890 Hormone replacement therapy; Z79.899 Other long term (current) drug therapy
CPT/HCPCS: 80306; 82075; 99283

== ENCOUNTER 2022-01-21 16:14 | Emergency (ER) | payer MEDICARE, OTHER ==
[2022-01-21 16:45] VITALS: RESP 20
[2022-01-21] MEDS ORDERED: ONDANSETRON ODT 4 MG TAB PO STA (17:06)
[2022-01-21] MEDS ORDERED: HYDROcodone/APAP 5-325MG 1 EACH TAB PO STA (17:06)
--- NOTE | 2022-01-21 17:11 | ED ---
General Adult HPI - General Chief complaint: Back Pain/Injury Stated complaint: Back pain Time Seen by Provider: 01/21/22 16:34 Source: patient, RN notes reviewed Mode of arrival: EMS Limitations: no limitations - History of Present Illness Initial comments: 61-year-old female presents to the emergency department for evaluation of low back pain status post fall yesterday. Patient states she was sitting on the edge of the bed when she slipped causing her to fall to the ground. Patient states that she went to [facility] emergency department where she had a CT of her head and neck as well as an XR of her pelvis. States she was prescribed Tylenol but has not taken any. Complains of nausea and restless legs discomfort as well. Denies fever, chills, headache, neck pain, chest pain, shortness of breath, abdominal pain, hip pain, or any other injuries. - Related Data Home Medications Medication Instructions Recorded Confirmed Carvedilol [Coreg] 25 mg PO BID@07,199906/07/17 11/15/21 Montelukast [Singulair] 10 mg PO DAILY@69906/28/18 11/15/21 DULoxetine HCL [Cymbalta] 60 mg PO BID@699,199908/15/18 11/15/21 allopurinoL [Zyloprim] 100 mg PO DAILY@69908/14/19 11/15/21 Diclofenac Sodium [Voltaren Gel] 2 gram TOPICAL QID PRN 04/03/20 11/15/21 Potassium Chloride ER [K-Dur 10] 10 meq PO DAILY@69904/03/20 11/15/21 Mirabegron [Myrbetriq] 25 mg PO DAILY@0700 07/14/20 11/15/21 Rivaroxaban [Xarelto] 10 mg PO DAILY@69907/30/20 11/15/21 Lovastatin [Mevacor] 10 mg PO HS@199908/16/20 11/15/21 lamoTRIgine [LaMICtal] 200 mg PO DAILY@00 08/16/20 11/15/21 Gabapentin [Neurontin] 600 mg PO TID@0700,1699,199912/01/20 11/15/21 Ergocalciferol (Vitamin D2) 1,250 mcg PO Q30D@0700 12/09/2022 [Vitamin D2 (50,000 Iu)] traMADol HCL 50 mg PO TID@07,1699,199912/09/20 11/15/21 Omeprazole [PriLOSEC] 40 mg PO DAILY@0701/20/21 11/15/21 ondansetron HCL [Zofran] 8 mg PO Q6H PRN 01/20/21 11/15/21 Fluticasone Nasal [place] [Flonase 2 spr EA NOSTRIL DAILY PRN 05/01/21 11/15/21 Nasal [place]] Vit C/E/Zn/Coppr/Lutein/Zeaxan 1 cap PO BID@699,199905/01/21 11/15/21 [Preservision Areds 2 Softgel] busPIRone HCl [Buspar] 20 mg PO BID@0700,169905/01/21 11/15/21 lamoTRIgine [LaMICtal] 100 mg PO DAILY@169905/01/21 11/15/21 rOPINIRole HCL [Requip] 5 mg PO BID@0700,169905/01/21 11/15/21 Ferrous Sulfate [Iron (65 MG 325 mg PO DAILY@69907/03/21 11/15/21 Elemental)] Vitamin B Complex 1 cap PO DAILY@0707/03/21 11/15/21 Magnesium Hydroxide [Milk of 2,400 mg PO DAILY PRN 08/02/21 11/15/21 Magnesia] Sennosides [Senna] 8.6 mg PO BID@699,199908/02/21 11/15/21 Aspirin EC [Ecotrin Low Dose] 81 mg PO HS@199908/30/21 11/15/21 Melatonin 3 mg PO HS@199908/30/21 11/15/21 Saliva Stimulant Agents Comb.3 10 ml PO TID@07,1699,199908/30/21 11/15/21 [Biotene Moisturizing Mouth] Nystatin/Triamcin Cream [Mycolog 1 applic TOPICAL BID@699,199909/22/21 11/15/21 100,000-0.1 Unit/gm-% Cream] Torsemide [Demadex] 50 mg PO SUTUTHSA@69909/22/21 11/15/21 Torsemide [Demadex] 100 mg PO MOWEFR@0700 09/22/21 11/15/21 cloNIDine HCL [Kapvay] 0.2 mg PO HS@199909/22/21 11/15/21 Levothyroxine Sodium [Synthroid] 150 mcg PO DAILY@0630 10/25/21 11/15/21 Albuterol Inhaler [Ventolin Hfa 2 puff INHALATION RT-QID PRN 11/15/21 11/15/21 Inhaler] Doxepin HCl 3 mg PO HS@199911/15/21 11/15/21 Feosol 45mg Natural 1 tab PO DAILY@0711/15/21 11/15/21 Melatonin 3 mg PO HS PRN 11/15/21 11/15/21 Trolamine Salicylate/Aloe Vera 1 applic TOPICAL BID PRN 11/15/21 11/15/21 [Aspercreme 10% Cream] Allergies Allergy/AdvReac Type Severity Reaction Status Date / Time buspirone [From BuSpar] Allergy Unknown Verified 01/21/22 16:22 haloperidol [From Haldol] Allergy Swelling Verified 01/21/22 16:22 hydroxyzine [From Vistaril] Allergy Rash/Hives Verified 01/21/22 16:22 iodine Allergy Swelling Verified 01/21/22 16:22 Penicillins Allergy Swelling Verified 01/21/22 16:22 throat prochlorperazine Allergy Rash/Hives Verified 01/21/22 16:22 Sulfa (Sulfonamide Allergy Rash/Hives Verified 01/21/22 16:22 Antibiotics) Tetanus Vaccines and Toxoid Allergy Rash/Hives Verified 01/21/22 16:22 [Tetanus Vaccines & Toxoid] trifluoperazine HCl Allergy Unknown Verified 01/21/22 16:22 [From Stelazine] Review of Systems ROS Statement: Those systems with pertinent positive or pertinent negative responses have been documented in the HPI. ROS Other: All systems not noted in ROS Statement are negative. Past Medical History Past Medical History: Asthma, Heart Failure, COPD, Diabetes Mellitus, Eye Disorder, GERD/Reflux, Hyperlipidemia, Hypertension, Osteoarthritis (OA), Pneumonia, Pulmonary Embolus (PE), Thyroid Disorder Additional Past Medical History / Comment(s): Pt recently admitted to [facility] on 07/05/21 with fall/blunt trauma R side of face and abdomen. Other hx: NIDDM type II/diet controlled, neuropathy bilateral hands/feet, murmur, aortic valve stenosis, bronchitis, PE L upper lobe, chronic anemia, bilateral leg edema/past leg cellulitis, RLS, gout bilateral feet, chronic low minh and bilateral knee pain/henriated discs, UTIs, stress incontinence, starting of bilateral cataracts, bilateral macular degeneration, hypothyroid. History of Any Multi-Drug Resistant Organisms: None Reported Past Surgical History: Bariatric Surgery, Cholecystectomy, Heart Catheterization, Hernia Repair, Joint Replacement, Orthopedic Surgery Additional Past Surgical History / Comment(s): Total right knee replacement, abdominal hernia repair X3, left hip repair d/t fracture, gastric bypass with revision, EGD, colonoscopy. Past Anesthesia/Blood Transfusion Reactions: No Reported Reaction Past Psychological History: Anxiety, Bipolar, Depression, Panic Disorder, PTSD Smoking Status: Never smoker Past Alcohol Use History: None Reported Past Drug Use History: None Reported - Past Family History Mother Family Medical History: Cancer Additional Family Medical History / Comment(s): Lung cancer. Father Family Medical History: Diabetes Mellitus, Deep Vein Thrombosis (DVT), Myocardial Infarction ([place]), Pulmonary Embolus Additional Family Medical History / Comment(s): "My dad from a blood clot that traveled from his leg to his lung and also caused a heart attack." Brother(s) Family Medical History: Diabetes Mellitus Sister(s) Additional Family Medical History / Comment(s): "Her heart races too fast." General Exam Limitations: physical limitation (Ambulates with walker) General appearance: alert, anxious (Well-developed, well-nourished female who is restless complaining of back pain and nausea. Initial temperature 97.9, pulse 83, respirations 16, blood pressure 164/96, pulse ox 99% on room air.) Head exam: Present: atraumatic, normocephalic, normal inspection Neck exam: Present: normal inspection, full ROM. Absent: tenderness, meningismus, lymphadenopathy Respiratory exam: Present: normal lung sounds bilaterally. Absent: respiratory distress, wheezes, rales, rhonchi, stridor, chest wall tenderness Cardiovascular Exam: Present: regular rate, normal rhythm, normal heart sounds. Absent: systolic murmur, diastolic murmur, rubs, gallop, clicks GI/Abdominal exam: Present: soft, normal bowel sounds. Absent: distended, tenderness, guarding, rebound, rigid Back exam: Present: normal inspection, full ROM, tenderness (Lower lumbar tenderness upon palpation). Absent: muscle spasm, paraspinal tenderness Neurological exam: Present: alert, oriented X3 Psychiatric exam: Present: anxious Skin exam: Present: warm, dry, intact, normal color. Absent: rash Course Vital Signs 01/21/22 01/21/22 01/21/22 16:20 16:44 19:34 Temperature 97.9 F 97.7 F Pulse Rate 83 80 88 Respiratory 16 20 20 Rate Blood Pressure 164/96 160/100 170/105 O2 Sat by Pulse 99 99 98 Oximetry - Reevaluation(s) Reevaluation #1: 01/21/22 18:27 Upon reevaluation, patient is moving around in the room transferring between bed and wheelchair unassisted. States her back pain has improved and her nausea has resolved, but continues to have restless legs discomfort. Patient will be given a dose of Requip and discharged home to follow up as needed on an outpatient basis. Patient is agreeable with this plan of care. Medical Decision Making - Medical Decision Making This is a morbidly obese 61-year-old female with multiple comorbidities who presents to the emergency department for evaluation of low back pain. Upon exam, patient is sitting upright in a wheelchair in no acute distress. Patient endorses lumbar spine tenderness upon palpation. She complains of nausea and restless legs discomfort. Patient has not taken her Requip today and therefore was given a dose. She was given Zofran for her nausea with improvement. X-ray of the lumbar spine was unremarkable. Patient did have improvement with [place]. She will be discharged home to follow up on an outpatient basis as needed. Patient has pain medication prescribed to her. Return parameters were discussed in detail. Patient verbalizes understanding and agrees with this plan. Attending: Calin. - Lab Data Lab Results 01/21/22 Range/Units 18:36 Urine Color Colorless Urine Appearance Clear (Clear) Urine pH 6.0 (5.0-8.0) Ur Specific Corn 1.005 (1.001-1.035) Urine Protein Negative (Negative) Urine Glucose (UA) Negative (Negative) Urine Ketones Negative (Negative) Urine Blood Negative (Negative) Urine Nitrite Negative (Negative) Urine Bilirubin Negative (Negative) Urine Urobilinogen <2.0 (<2.0) mg/dL Ur Leukocyte Esterase Negative (Negative) - Radiology Data Radiology results: report reviewed, image reviewed X-ray of the lumbar spine was obtained. Report was reviewed in its entirety. Impression per Dr. Bautista as #1. No acute process. #2. Multilevel disc degeneration changes throughout the spine. Disposition Clinical Impression: Mechanical back pain Disposition: HOME SELF-CARE Condition: Stable Instructions (If sedation given, give patient instructions): Acute Low Back Pain (ED) Additional Instructions: Take your medications as prescribed. Maintain your mobility with assisted ambulation. Follow-up with your PCP for a recheck if needed. Return to the emergency department with any new, worsening, or concerning symptoms. Is patient prescribed a controlled substance at d/c from ED?: No Referrals: None,Stated [Primary Care Provider] - 1-2 days Time of Disposition: 19:01
--- NOTE | 2022-01-21 17:47 | XR ---
EXAMINATION TYPE: XR lumbar spine 2 or 3V DATE OF EXAM: 01/21/2022 5:29 PM INDICATION: Patient age:Female; 61 years old; Reason for study: low back pain s/p fall; . COMPARISON: CT abdomen pelvis 08/30/2021 TECHNIQUE: The lumbar spine was examined in 2 views and coned and L5-S1. FINDINGS: Multilevel disc degeneration changes throughout the spine with place during. Alignment is g rossly within intact. Multilevel facet joint arthropathy. The visualized left femur fixation hardware . No evidence of any acute osseous pathology. IMPRESSION: 1. No acute process. 2. Multilevel disc degeneration changes throughout the spine.
[2022-01-21 18:45] LABS: Appearance,Urine Clear (Clear); Bilirubin,Urine Negative (Negative); Blood,Urine Negative (Negative); Color,Urine Colorless; Glucose,Urine (UA) Negative (Negative); Ketones,Urine Negative (Negative); Leukocyte Esterase,Urine Negative (Negative); Nitrite,Urine Negative (Negative); Protein,Urine Negative (Negative); Specific Gravity,Urine 1.005 (1.001-1.035); Urobilinogen,Urine <2.0 mg/dL (<2.0)
[2022-01-21 19:35] VITALS: BP 170/105; PULSE 88; TEMP 97.7
== END 2022-01-21 19:41 | disposition home or self-care (01) ==
LOC: EC 16:14
DX: M54.50 Low back pain, unspecified (principal); J44.9 Chronic obstructive pulmonary disease, unspecified; E78.5 Hyperlipidemia, unspecified; K21.9 Gastro-esophageal reflux disease without esophagitis; I11.0 Hypertensive heart disease with heart failure; I50.9 Heart failure, unspecified; E07.9 Disorder of thyroid, unspecified; E11.9 Type 2 diabetes mellitus without complications; M10.9 Gout, unspecified; E11.40 Type 2 diabetes mellitus with diabetic neuropathy, unspecified; Z88.8 Allergy status to other drugs, medicaments and biological substances; Z88.5 Allergy status to narcotic agent; Z88.0 Allergy status to penicillin; Z88.2 Allergy status to sulfonamides; Z88.7 Allergy status to serum and vaccine; Z88.1 Allergy status to other antibiotic agents; Z79.899 Other long term (current) drug therapy; Z79.890 Hormone replacement therapy; Z79.84 Long term (current) use of oral hypoglycemic drugs; Z79.82 Long term (current) use of aspirin
CPT/HCPCS: 72100; 81003; 99284